=== PATIENT | female | born 1950 | race Caucasian/White ===

== ENCOUNTER 2016-11-28 14:31 | Emergency (ER) | payer OTHER ==
[~2016-11-28] VITALS: Ht 160 cm; Wt 83.1 kg
[~2016-11-28 14:31] MED LIST: ADVIN50/60 INH; ALBU1AER9 INH; ASPI81TA28 PO; ATOR-24 PO; CRG25 PO; DICY10CA12 PO; FELO10TA2 PO; FLUT0.15 NAE; GLIM4TAB2 PO; IBUP-1459 PO; IPRA1AER2 INH; LSN/2025 PO; MELO15TA10 PO; METF-384 PO; OXGN; OXYC1TAB3 PO; PHEN-1043 PO; PRLSR20 PO; TIOTCAP INH; TRAZ50TA35 PO; VENL75CA73 PO
[2016-11-28 14:43] VITALS: Ht 160 cm; Wt 83.1 kg
[2016-11-28] MEDS ORDERED: KETOROLAC TROMETHAMINE 30 MG/ML VIAL IV STA (14:47)
[2016-11-28] MEDS ORDERED: ALBUT/IPRATROP 3MG/0.5MG NEB 3 ML VIAL INH STA (14:47)
[2016-11-28] MEDS ORDERED: ONDANSETRON INJ 2 MG/ML 2 ML VIAL IV STA (14:47)
[2016-11-28 15:06] VITALS: O2SAT 96
[2016-11-28] MEDS ORDERED: METHYLPREDNISOLONE 125 MG VIAL IV STA (15:16)
[2016-11-28 15:48] LABS: BASO % 0.3 %; BASO ABS # 0.04 K/uL (0-0.2); COMPLETE YES; HEMATOCRIT 39.1 % (37-47); IG% 0.6 %; LYMPH % 13.4 %; MEAN CELL VOLUME 85.2 fL (80-100); MEAN CORPUSCULAR HEMOGLOBIN 27.2 pg (25-34); MEAN PLATELET VOLUME 9.5 fL (7.4-10.4); MONO % 2.8 %; NEUT % 81.9 %; PLATELET COUNT 467 K/uL (130-400); RED BLOOD COUNT 4.59 M/uL (4.2-5.4); WHITE BLOOD COUNT 13.43 K/uL (4.8-10.8)
[2016-11-28 16:02] LABS: BUN/CREATININE RATIO 16.3 (10-20); CALCIUM 8.6 mg/dl (8.5-10.1); CREATININE 1.1 mg/dl (0.60-1.20)
--- NOTE | 2016-11-28 16:11 | DIAGNOSTIC IMAGING REPORT ---
CHEST 2 VIEWS ROUTINE CLINICAL HISTORY: cough x 2 weeks dyspnea COMPARISON STUDY: 04/23/2016 FINDINGS: Several small calcific granulomas. Fibrotic changes right pulmonary apex possibly new. Right. Mediastinal nodule is possible. CT study of the chest suggested as follow-up. IMPRESSION: Possible nodular density medial right pulmonary apex. CT stated chest is recommended as follow-up. No additional acute process. Electronically signed by: Charlie Ayala M.D. 11/28/2016 4:09 PM Dictated Date/Time: 11/28/2016 4:07 PM
[2016-11-28] MEDS ORDERED: MoRPHine SULFATE 4 MG/ML 1 ML CARP\\VIAL IV STA (16:18)
[2016-11-28] MEDS ORDERED: OPTIRAY 320 IV PRN (16:30)
--- NOTE | 2016-11-28 16:54 | DIAGNOSTIC IMAGING REPORT ---
CT OF THE CHEST WITH IV CONTRAST CLINICAL HISTORY: cough, abnormal chest x-ray COMPARISON STUDY: Chest CT dated 07/16/2015, chest x-ray dated 11/28/2016 TECHNIQUE: Following the IV administration of 120 mL of Optiray-320, CT of the thorax was performed from the thoracic inlet to the lung bases. Images are reviewed in the axial, sagittal, and coronal planes. IV contrast was administered without complication. CT DOSE: 393.04 mGy.cm FINDINGS: Thyroid: Imaged portions of the thyroid gland are normal in appearance. Thoracic aorta: The thoracic aorta is normal in course and caliber, noting standard 3-vessel arch anatomy. No aneurysm or dissection is seen. Pulmonary vasculature: The pulmonary trunk is normal in caliber. There are no central filling defects identified to suggest pulmonary embolus. Note that this examination was not protocoled for the evaluation of pulmonary emboli. HEART: There are coronary artery calcifications present. Lungs and pleural spaces: There is a 15 mm pleural-based right apical pulmonary nodule. Was not present on the prior June 2015 study. There is evidence for pulmonary emphysema. There are lingular atelectatic changes. There are right lower lobe calcified granulomas. Mediastinum: There are enlarged mediastinal lymph nodes with a 14 mm precarinal lymph node. There are also calcified mediastinal lymph nodes including calcified subcarinal nodes. These are progressive when compared the prior study. Brandi: There is a calcified right hilar lymph node. There are mildly enlarged left hilar lymph nodes with equivocal secondary mild bronchial narrowing.. Axilla: Clear. Upper abdomen: There is hepatic steatosis. There is a bilobed left adrenal mass. This is present felt to represent an adenoma. Skeletal structures: There are no lytic or blastic osseous lesions. IMPRESSION: 1. Interval development of a 15 mm pleural-based right apical pulmonary nodule 2. Mild mediastinal lymphadenopathy which appears progressive 3. Mildly enlarged left hilar lymph nodes with equivocal secondary mild bronchial narrowing 4. Emphysema 5. Hepatic steatosis 6. Bilobed left adrenal mass, likely representing an adenoma Electronically signed by: Moses Godinez M.D. 11/28/2016 4:52 PM Dictated Date/Time: 11/28/2016 4:45 PM
[2016-11-28] MEDS ORDERED: AZIT250T PO (17:38)
[2016-11-28] MEDS ORDERED: HYDR-5688 PO (17:38)
[2016-11-28] MEDS ORDERED: PRED20TA2 PO (17:38)
--- NOTE | 2016-11-28 17:40 | EMERGENCY ROOM VISIT NOTE ---
History First contact with patient: 14:37 Chief Complaint: RESPIRATORY PROBLEMS Stated Complaint: SHORTNESS OF BREATH/RIB PAIN History of Present Illness The patient is a 66 year old female who presents to the Emergency Room via EMS with chief complaint of shortness of breath and rib pain secondary to coughing. The patient states that she has had head congestion and cough for the past few weeks but got worse over the last 2 days and now feels short of breath. The patient also states that she has soreness on the right lower ribs secondary to coughing. The patient denies any fever, ear pain or sore throat. The patient denies any body aches. The patient has been using all her inhalers as prescribed. The patient is not followed by a remnant sorter. She does require 2 L of oxygen 24 hours a day. The patient admits to tobacco use. The patient' s family doctor is Dr. Baker but she is not happy with his care and is currently seeking a new family physician. The last time she was seen by Dr. Baker was one month ago. The patient admits to some nausea but denies any vomiting. The patient denies any urinary symptoms, chest pain, abdominal pain. Review of Systems 10 system review was performed and was negative unless stated otherwise history of present illness. Past Medical/Surgical History Medical Problems: (1) AAA (abdominal aortic aneurysm) (2) Adhesions (3) ANXIETY STATE NOS (4) Chronic low back pain (5) Chronic obstructive lung disease (6) Depressive disorder (7) DIAB SHOAIB WO COMPL, TYPE II OR UNSPEC TYPE, NOT UNCNTRLD (8) Diaphragmatic hernia (9) Essential hypertension (10) GENERAL OSTEOARTHROSIS (11) Hyperlipidemia (12) IRRITABLE BOWEL SYNDROME (13) Left peroneal nerve palsy (14) Overweight (BMI 25.0-29.9) (15) PEPTIC ULCER NOS (16) Tobacco user (17) Vitamin D deficiency Surgical Problems: (1) H/O Achilles tendon repair (2) H/O: hysterectomy (3) History of appendectomy (4) History of bilateral oophorectomies (5) History of lithotripsy (6) Hx of cholecystectomy (7) lipoma removal (8) s/p breast lesion excision Family History Bone cancer FATHER Diabetes mellitus FATHER MOTHER BROTHER FH: breast cancer MOTHER FH: lung cancer MOTHER FH: myocardial infarction FATHER, Onset:50's - 60 Malignant neoplasm of larynx BROTHER Social History Smoking Status: Current Every Day Smoker Alcohol Use: none Drug Use: none Marital Status: Housing Status: lives with significant other Occupation Status: disabled Current/Historical Medications Scheduled Aspirin (Aspirin Ec), 81 MG PO DAILY Atorvastatin (Lipitor), 40 MG PO QAM Carvedilol (Carvedilol), 25 MG PO BID Felodipine (Plendil), 10 MG PO QAM Fluticasone Prop/Salmeterol (Advair Diskus 500/50 60 Dose), 1 PUFFS INH BID Fluticasone Propionate (Nasal) (Flonase Allergy Relief), 2 SPRAYS FEROZ QAM Glimepiride (Glimepiride), 4 MG PO QAM Hctz/Lisinopril (Zestoretic 20MG/25MG), 1 TAB PO QAM Ipratropium-Albuterol (Combivent Respimat), 1 PUFFS INH QID Meloxicam (Mobic), 1 TAB PO DAILY Metformin Hcl (Glucophage), 1,000 MG PO BIDM Omeprazole (Prilosec), 20 MG PO QAM Oxygen (Oxygen), 2 LITER NA CONTINOUS Phenazopyridine HCl (Phenazopyridine HCl), 200 MG PO TID Tiotropium [place] (Spiriva Handihaler), 1 CAP INH HS Venlafaxine Hcl (Venlafaxine Extended Rel), 75 MG PO DAILY Scheduled PRN Albuterol Sulfate (Proair Hfa), 2 PUFF INH Q4 PRN for Shortness of Breath Dicyclomine Hcl (Dicyclomine Hcl), 1 CAP PO TID PRN for PRN Ibuprofen (Motrin), 400 MG PO Q6H PRN for Pain Oxycodone Ir (Roxicodone Ir), 1 TAB PO Q6H PRN for Pain Trazodone Hcl (Trazodone), 50 MG PO HS PRN for Pain Allergies Coded Allergies: Diflunisal (Verified Allergy, Unknown, HEART RACES, 10/26/16) Physical Exam Vital Signs Date Time Temp Pulse Resp B/P Pulse Ox O2 Delivery O2 Flow Rate FiO2 11/28/16 16:56 11/28/16 16:45 106 18 134/74 94 Room Air 11/28/16 15:06 96 Nasal Cannula 2.0 11/28/16 15:06 96 Nasal Cannula 2.0 11/28/16 14:48 94 Nasal Cannula 11/28/16 14:48 115 11/28/16 14:43 37.1 110 22 155/94 90 Room Air Physical Exam PHYSICAL EXAM: Vital Signs were reviewed: Reviewed Nurse's notes and agree. Oxygen saturation is 90% on room air which is slightly low.. GENERAL: 66-year- old white female appears in no acute distress. MENTAL STATUS: Alert, oriented, coherent. EARS: Canals clear. TMs good light reflex, no erythema or fluid level noted. NOSE: Nasal mucosa with moderate erythema engorgement. PHARYNX: No erythema, no edema noted. No exudate noted. There is thick yellow drainage noted on the posterior pharynx. Airway is adequate. NECK: Supple, non-tender. No lymphadenopathy noted. LUNGS: Breath sounds are distant bilaterally. Fair air exchange. Faint inspiratory and expiratory wheezes noted bilaterally. Patient had deep congested cough. CARDIAC: Regular rate and rhythm without murmur. SKIN: No rashes noted. LOWER EXTREMITIES: No cyanosis or edema noted. Medical Decision & Procedures ER Provider Diagnostic Interpretation: CHEST 2 VIEWS ROUTINE CLINICAL HISTORY: cough x 2 weeks dyspnea COMPARISON STUDY: 04/23/2016 FINDINGS: Several small calcific granulomas. Fibrotic changes right pulmonary apex possibly new. Right. Mediastinal nodule is possible. CT study of the chest suggested as follow-up. IMPRESSION: Possible nodular density medial right pulmonary apex. CT stated chest is recommended as follow-up. No additional acute process. CT OF THE CHEST WITH IV CONTRAST CLINICAL HISTORY: cough, abnormal chest x-ray COMPARISON STUDY: Chest CT dated 07/16/2015, chest x-ray dated 11/28/2016 TECHNIQUE: Following the IV administration of 120 mL of Optiray-320, CT of the thorax was performed from the thoracic inlet to the lung bases. Images are reviewed in the axial, sagittal, and coronal planes. IV contrast was administered without complication. CT DOSE: 393.04 mGy.cm FINDINGS: Thyroid: Imaged portions of the thyroid gland are normal in appearance. Thoracic aorta: The thoracic aorta is normal in course and caliber, noting standard 3-vessel arch anatomy. No aneurysm or dissection is seen. Pulmonary vasculature: The pulmonary trunk is normal in caliber. There are no central filling defects identified to suggest pulmonary embolus. Note that this examination was not protocoled for the evaluation of pulmonary emboli. HEART: There are coronary artery calcifications present. Lungs and pleural spaces: There is a 15 mm pleural-based right apical pulmonary nodule. Was not present on the prior June 2015 study. There is evidence for pulmonary emphysema. There are lingular atelectatic changes. There are right lower lobe calcified granulomas. Mediastinum: There are enlarged mediastinal lymph nodes with a 14 mm precarinal lymph node. There are also calcified mediastinal lymph nodes including calcified subcarinal nodes. These are progressive when compared the prior study. Brandi: There is a calcified right hilar lymph node. There are mildly enlarged left hilar lymph nodes with equivocal secondary mild bronchial narrowing.. Axilla: Clear. Upper abdomen: There is hepatic steatosis. There is a bilobed left adrenal mass. This is present felt to represent an adenoma. Skeletal structures: There are no lytic or blastic osseous lesions. IMPRESSION: 1. Interval development of a 15 mm pleural-based right apical pulmonary nodule 2. Mild mediastinal lymphadenopathy which appears progressive 3. Mildly enlarged left hilar lymph nodes with equivocal secondary mild bronchial narrowing 4. Emphysema 5. Hepatic steatosis 6. Bilobed left adrenal mass, likely representing an adenoma Electronically signed by: Moses Godinez M.D. 11/28/2016 4:52 PM Dictated Date/Time: 11/28/2016 4:45 PM Electronically signed by: Charlie Ayala M.D. 11/28/2016 4:09 PM Laboratory Results 11/28/16 15:40 Red Blood Count 4.59, Mean Corpuscular Volume 85.2, Mean Corpuscular Hemoglobin 27.2, Mean Corpuscular Hemoglobin Concent 32.0, Mean Platelet Volume 9.5, Neutrophils (%) (Auto) 81.9, Lymphocytes (%) (Auto) 13.4, Monocytes (%) (Auto) 2.8, Eosinophils (%) (Auto) 1.0, Basophils (%) (Auto) 0.3, Neutrophils # (Auto) 10.99, Lymphocytes # (Auto) 1.80, Monocytes # (Auto) 0.38, Eosinophils # (Auto) 0.14, Basophils # (Auto) 0.04 11/28/16 15:40 Test 11/28/16 15:40 White Blood Count 13.43 K/uL (4.8-10.8) Red Blood Count 4.59 M/uL (4.2-5.4) Hemoglobin 12.5 g/dL (12.0-16.0) Hematocrit 39.1 % (37-47) Mean Corpuscular Volume 85.2 fL (80-100) Mean Corpuscular Hemoglobin 27.2 pg (25-34) Mean Corpuscular Hemoglobin Concent 32.0 g/dl (32-36) Platelet Count 467 K/uL (130-400) Mean Platelet Volume 9.5 fL (7.4-10.4) Neutrophils (%) (Auto) 81.9 % Lymphocytes (%) (Auto) 13.4 % Monocytes (%) (Auto) 2.8 % Eosinophils (%) (Auto) 1.0 % Basophils (%) (Auto) 0.3 % Neutrophils # (Auto) 10.99 K/uL (1.4-6.5) Lymphocytes # (Auto) 1.80 K/uL (1.2-3.4) Monocytes # (Auto) 0.38 K/uL (0.11-0.59) Eosinophils # (Auto) 0.14 K/uL (0-0.5) Basophils # (Auto) 0.04 K/uL (0-0.2) RDW Standard Deviation 53.3 fL (36.4-46.3) RDW Coefficient of Variation 17.2 % (11.5-14.5) Immature Granulocyte % (Auto) 0.6 % Immature Granulocyte # (Auto) 0.08 K/uL (0.00-0.02) Anion Gap 11.0 mmol/L (3-11) Est Creatinine Clear Calc Drug Dose 52.7 ml/min Estimated GFR () 61.4 Estimated GFR (Non- 53.0 BUN/Creatinine Ratio 16.3 (10-20) Calcium Level 8.6 mg/dl (8.5-10.1) Medications Administered Medications (Trade) Dose Ordered Sig/Melissa Route Start Time Stop Time Status Last Admin Dose Admin Albuterol/ Ipratropium (Duoneb) 3 ml NOW STAT INH 11/28/16 14:47 11/28/16 14:52 DC 11/28/16 15:03 3 ML Ketorolac Tromethamine (Toradol Inj) 30 mg NOW STAT IV 11/28/16 14:47 1/5/17 14:52 DC 11/28/16 15:05 30 MG Ondansetron HCl (Zofran Inj) 4 mg NOW STAT IV 11/28/16 14:47 11/28/16 14:52 DC 11/28/16 15:05 4 MG Methylprednisolone Sodium Succinate (Solu-Medrol IV) 125 mg NOW STAT IV 11/28/16 15:16 11/28/16 15:17 DC 11/28/16 15:16 125 MG Morphine Sulfate (MoRPHine SULFATE INJ) 4 mg NOW STAT IV 11/28/16 16:18 11/28/16 16:20 DC 11/28/16 16:50 4 MG ED Course The patient was evaluated. The patient was placed on 2 L of oxygen. The patient was placed on a monitor and continuous pulse ox. Chest x-ray was ordered and interpreted by the radiologist and myself as above with a new possible pulmonary nodule in the right apex. The patient was given a DuoNeb. CBC and differential renal profile was ordered. The patient was given Solu- Medrol 125 mg IV, Toradol 30 mg IV, Zofran 4 mg IV. The patient's labs are reviewed. Patient's white count was elevated at 13,000 and her glucose was 247. The patient was reevaluated. She stated that her pain was still a 6 out of 10. The patient was then given morphine 4 mg IV for pain. The patient was informed of the abnormal chest x-ray findings and a CT of the chest with IV contrast was ordered. This was interpreted by the radiologist as above with a new pulmonary nodule in the right apex and increased mediastinal lymphadenopathy. The patient was informed of the findings. I discussed the case withDr. Landers who is in agreement with treatment plan. The catalytic case operator will call pulmonology tomorrow morning to schedule an appointment for the patient within 1 week for follow-up. The patient was given Zithromax 500 mg while in the emergency room. The patient was discharged home in stable condition.. Medical Decision Differential diagnosis include neoplasm, pneumonia, bronchitis URI Impression Primary Impression: Bronchitis Additional Impression: Pulmonary nodule, right Departure Information Dispostion Home / Self-Care Condition GOOD Prescriptions Hydrocodone/Acetaminophen 5MG/325MG ([place] 5MG/325MG) Tab 1-2 TABLET PO Q6 Y for Pain, #20 TAB For Initial Treatment Prov: Cheryl Ayala PA-C 11/28/16 Prednisone (Prednisone Tab) 20 Mg Tab 2 TAB PO DAILY for 5 Days, #10 TAB Prov: Cheryl Ayala PA-C 11/28/16 Azithromycin (Zithromax) 250 Mg Tab 250 MG PO DAILY for 4 Days, #4 TAB Prov: Cheryl Ayala PA-C 11/28/16 Referrals No Doctor, Assigned (PCP) Forms HOME CARE DOCUMENTATION FORM, IMPORTANT VISIT INFORMATION, WORK / SCHOOL INSTRUCTIONS Patient Instructions A Signature Page, Bronchitis Acute, My [facility] [address] Additional Instructions Continue all inhalers as prescribed. Use your albuterol inhaler 2 puffs every 4 hours for the next 5 days then as needed. Take prednisone as prescribed. Take Zithromax as prescribed. Keep track of your blood sugars while on the prednisone. Take [place] as needed for rib pain. Do not drive while taking the [place]. Case management will be calling you tomorrow morning for a follow-up appointment with pulmonology. If your symptoms should worsen, return to ER immediately.
[2016-11-28] MEDS ORDERED: AZITHROMYCIN 250 MG TAB PO ONE (17:45)
[2016-11-28] MEDS ORDERED: NORCO 5/325MG HOME PACK PO ONE (18:00)
[2016-11-28 18:20] VITALS: BP 148/90; PULSE 108; TEMP 37.1; O2SAT 95
== END 2016-11-28 18:18 | disposition home or self-care (01) ==
LOC: EDBD 14:31 → C.EDB 14:32
DX: J20.9 Acute bronchitis, unspecified (principal); R91.1 Solitary pulmonary nodule; E11.9 Type 2 diabetes mellitus without complications; I10 Essential (primary) hypertension; E78.5 Hyperlipidemia, unspecified; J44.9 Chronic obstructive pulmonary disease, unspecified; K58.9 Irritable bowel syndrome, unspecified; F32.9 Major depressive disorder, single episode, unspecified; F41.9 Anxiety disorder, unspecified; G89.29 Other chronic pain; M19.90 Unspecified osteoarthritis, unspecified site; F17.200 Nicotine dependence, unspecified, uncomplicated; Z87.11 Personal history of peptic ulcer disease; Z90.710 Acquired absence of both cervix and uterus; Z90.49 Acquired absence of other specified parts of digestive tract; Z98.890 Other specified postprocedural states; Z79.82 Long term (current) use of aspirin; Z79.899 Other long term (current) drug therapy; Z88.8 Allergy status to other drugs, medicaments and biological substances; Z83.3 Family history of diabetes mellitus; Z82.49 Family history of ischemic heart disease and other diseases of the circulatory system; Z85.3 Personal history of malignant neoplasm of breast; Z85.830 Personal history of malignant neoplasm of bone

== ENCOUNTER 2016-12-02 15:18 | Emergency (ER) | payer OTHER ==
[~2016-12-02] VITALS: Ht 160 cm; Wt 78.6 kg
[~2016-12-02 15:18] MED LIST changes: +AZIT250T PO; +HYDR-5688 PO; +PRED20TA2 PO
[2016-12-02] MEDS ORDERED: HYDROCODONE/ACETAMOPHEN 5/325MG TAB PO STA ×2 (16:51→20:52)
[2016-12-02] MEDS ORDERED: ALBUT/IPRATROP 3MG/0.5MG NEB 3 ML VIAL INH STA (16:55)
[2016-12-02 17:37] LABS: BASO % 0.1 %; BASO ABS # 0.01 K/uL (0-0.2); COMPLETE YES; HEMATOCRIT 40.8 % (37-47); IG% 1.9 %; LYMPH % 6.6 %; LYMPH ABS # 0.93 K/uL (1.2-3.4); MEAN CELL VOLUME 83.4 fL (80-100); MEAN CORPUSCULAR HEMOGLOBIN 26.6 pg (25-34); MEAN CORPUSCULAR HGB CONC 31.9 g/dl (32-36); MEAN PLATELET VOLUME 9.8 fL (7.4-10.4); MONO % 2.6 %; NEUT % 88.8 %; PLATELET COUNT 515 K/uL (130-400); RED BLOOD COUNT 4.89 M/uL (4.2-5.4); WHITE BLOOD COUNT 14.07 K/uL (4.8-10.8)
[2016-12-02 17:55] VITALS: O2SAT 98; Ht 160 cm; Wt 78.6 kg
[2016-12-02 18:20] LABS: BUN/CREATININE RATIO 11.6 (10-20); CALCIUM 8.9 mg/dl (8.5-10.1)
[2016-12-02 18:21] LABS: CREATININE 1.3 mg/dl (0.60-1.20); POTASSIUM 4.6 mmol/L (3.5-5.1)
[2016-12-02 18:27] LABS: ALB/GLOB RATIO 0.9 (0.9-2)
[2016-12-02 18:35] LABS: BETA-HYDROXYBUTYRATE 1.26 mg/dL (0.2-2.81)
--- NOTE | 2016-12-02 18:44 | DIAGNOSTIC IMAGING REPORT ---
RIGHT RIBS UNILATERAL WITH PA CHEST CLINICAL HISTORY: right post rib pain, cough Right COMPARISON STUDY: Chest and right rib series 10/31/2015. FINDINGS: Old, healed right anterior fractures. No acute rib fractures identified. No pleural effusions. No pneumothorax. The heart is stable in size. There is a left basilar consolidation. Punctate calcified granuloma seen within the right lung base. IMPRESSION: 1. No acute rib fractures. No pneumothorax. 2. A new left basilar consolidation consistent with a pneumonia. Recommend follow-up to resolution. Electronically signed by: Wicho Gutierrez M.D. 12/02/2016 6:42 PM Dictated Date/Time: 12/02/2016 6:39 PM
[2016-12-02] MEDS ORDERED: NovoLIN-R INSULIN PER UNIT CHARGE IV STA ×2 (19:19→20:41)
[2016-12-02] MEDS ORDERED: LEVAQUIN 750MG / 150ML D5W IV STA (19:19)
[2016-12-02] MEDS ORDERED: SODIUM CHLORIDE 0.9% 500ML 500 ML IV STA (19:20)
[2016-12-02] MEDS ORDERED: HYDR-5688 PO (22:10)
[2016-12-02] MEDS ORDERED: LEVO-18 PO (22:10)
[2016-12-02] MEDS ORDERED: NORCO 5/325MG HOME PACK PO ONE (22:15)
[2016-12-02 22:24] VITALS: BP 154/87; PULSE 92; TEMP 37; O2SAT 98
--- NOTE | 2016-12-02 23:26 | EMERGENCY ROOM VISIT NOTE ---
History Report prepared by Jb: Shweta Siegel Under the Supervision of: Dr. Eugene Landers M.D. First contact with patient: 16:34 Chief Complaint: SHORTNESS OF BREATH Stated Complaint: SOB Nursing Triage Summary: Cough for a couple weeks, productive of white bull sputum. SOB. Here , gave her ATB. Pt states symptoms are getting better but is here today to get something for pain. History of Present Illness The patient is a 66 year old female who presents to the Emergency Room with complaints of worsening shortness of breath. She has experienced a productive cough with "whitish bull sputum" for the past few weeks and has been increasingly short of breath recently. She was seen here in the ED 4 days ago because she thought she might have a pneumonia and she was placed on antibiotics and a steroid. She finished the antibiotic today and has two more steroid pills left. The patient reports her symptoms have been improving, but she is now experiencing increasing pain in her ribs from the cough. She notes she is scheduled to see Dr. Jenkins later this week, and states she follows with Pulmonology for a history of lung nodules and emphysema. The patient denies any LOC, headache, fevers, chills, diaphoresis, visual changes, neck pain , chest pain, nausea, vomiting, abdominal pain, back pain, melena, hematochezia , urinary symptoms, numbness, weakness, lymphadenopathy, rash, or other complaints. 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 A total of ten systems were reviewed and were otherwise negative. Past Medical & Surgical Medical Problems: (1) AAA (abdominal aortic aneurysm) (2) Adhesions (3) ANXIETY STATE NOS (4) Chronic low back pain (5) Chronic obstructive lung disease (6) Depressive disorder (7) DIAB SHOAIB WO COMPL, TYPE II OR UNSPEC TYPE, NOT UNCNTRLD (8) Diaphragmatic hernia (9) Essential hypertension (10) GENERAL OSTEOARTHROSIS (11) Hyperlipidemia (12) IRRITABLE BOWEL SYNDROME (13) Left peroneal nerve palsy (14) Overweight (BMI 25.0-29.9) (15) PEPTIC ULCER NOS (16) Tobacco user (17) Vitamin D deficiency Surgical Problems: (1) H/O Achilles tendon repair (2) H/O: hysterectomy (3) History of appendectomy (4) History of bilateral oophorectomies (5) History of lithotripsy (6) Hx of cholecystectomy (7) lipoma removal (8) s/p breast lesion excision Family History Bone cancer FATHER Diabetes mellitus FATHER MOTHER BROTHER FH: breast cancer MOTHER FH: lung cancer MOTHER FH: myocardial infarction FATHER, Onset:50's - 60 Malignant neoplasm of larynx BROTHER Social History Smoking Status: Former Smoker Alcohol Use: none Drug Use: none Marital Status: Housing Status: lives with significant other Occupation Status: disabled Current/Historical Medications Scheduled Aspirin (Aspirin Ec), 81 MG PO DAILY Atorvastatin (Lipitor), 40 MG PO QAM Azithromycin (Zithromax), 250 MG PO DAILY Carvedilol (Carvedilol), 25 MG PO BID Felodipine (Plendil), 10 MG PO QAM Fluticasone Prop/Salmeterol (Advair Diskus 500/50 60 Dose), 1 PUFFS INH BID Fluticasone Propionate (Nasal) (Flonase Allergy Relief), 2 SPRAYS FEROZ QAM Glimepiride (Glimepiride), 4 MG PO QAM Hctz/Lisinopril (Zestoretic 20MG/25MG), 1 TAB PO QAM Ipratropium-Albuterol (Combivent Respimat), 1 PUFFS INH QID Levofloxacin (Levaquin), 1 TAB PO DAILY Meloxicam (Mobic), 1 TAB PO DAILY Metformin Hcl (Glucophage), 1,000 MG PO BIDM Omeprazole (Prilosec), 20 MG PO QAM Oxygen (Oxygen), 2 LITER NA CONTINOUS Prednisone (Prednisone Tab), 2 TAB PO DAILY Tiotropium [place] (Spiriva Handihaler), 1 CAP INH HS Venlafaxine Hcl (Venlafaxine Extended Rel), 75 MG PO DAILY Scheduled PRN Albuterol Sulfate (Proair Hfa), 2 PUFF INH Q4 PRN for Shortness of Breath Dicyclomine Hcl (Dicyclomine Hcl), 1 CAP PO TID PRN for PRN Hydrocodone/Acetaminophen 5MG/325MG ([place] 5MG/325MG), 1-2 TABLET PO Q6 PRN for Pain Hydrocodone/Acetaminophen 5MG/325MG ([place] 5MG/325MG), 1-2 TABS PO Q6H PRN for Pain Ibuprofen (Motrin), 400 MG PO Q6H PRN for Pain Trazodone Hcl (Trazodone), 50 MG PO HS PRN for Pain Allergies Coded Allergies: Diflunisal (Verified Allergy, Unknown, HEART RACES, 10/26/16) Physical Exam Vital Signs Date Time Temp Pulse Resp B/P Pulse Ox O2 Delivery O2 Flow Rate FiO2 12/02/16 22:24 37.0 92 20 154/87 98 12/02/16 22:23 92 20 154/87 98 Nasal Cannula 2.0 98 12/02/16 21:45 92 20 155/88 98 Nasal Cannula 2.0 98 12/02/16 19:40 95 20 160/87 98 Nasal Cannula 2.0 98 12/02/16 18:38 96 20 155/88 98 Nasal Cannula 2.0 12/02/16 17:57 95 20 160/87 98 Nasal Cannula 2.0 98 12/02/16 17:55 98 Nasal Cannula 2.0 98 12/02/16 17:55 98 Nasal Cannula 2.0 98 12/02/16 15:40 Nasal Cannula 2.0 94 12/02/16 15:37 37.0 118 20 170/88 94 Nasal Cannula 2.0 Physical Exam GENERAL: Awake, alert, well-appearing, in no distress HENT: Normocephalic, atraumatic. Oropharynx unremarkable. EYES: Normal conjunctiva. Sclera non-icteric. NECK: Supple. No nuchal rigidity. FROM. No JVD. RESPIRATORY: Right posterior inferior rib tenderness with expiratory wheezes. Moderate cough present which causes right sided rib pain on the lateral side. CARDIAC: Regular rate, normal rhythm. Extremities warm and well perfused. Pulses equal. ABDOMEN: Soft, non-distended. No tenderness to palpation. No rebound or guarding. No masses. RECTAL: Deferred. MUSCULOSKELETAL: Chest examination reveals no tenderness. The back is symmetrical on inspection without obvious abnormality. There is no CVA tenderness to palpation. No joint edema. LOWER EXTREMITIES: Calves are equal size bilaterally and non-tender. No edema. No discoloration. NEURO: Normal sensorium. No sensory or motor deficits noted. SKIN: No rash or jaundice noted. Medical Decision & Procedures ER Provider Diagnostic Interpretation: This X-Ray was reviewed and interpreted by myself and the radiologist. RIGHT RIBS UNILATERAL WITH PA CHEST CLINICAL HISTORY: right post rib pain, cough Right COMPARISON STUDY: Chest and right rib series 10/31/2015. FINDINGS: Old, healed right anterior fractures. No acute rib fractures identified. No pleural effusions. No pneumothorax. The heart is stable in size. There is a left basilar consolidation. Punctate calcified granuloma seen within the right lung base. IMPRESSION: 1. No acute rib fractures. No pneumothorax. 2. A new left basilar consolidation consistent with a pneumonia. Recommend follow-up to resolution. Electronically signed by: Wicho Gutierrez M.D. 12/02/2016 6:42 PM Dictated Date/Time: 12/02/2016 6:39 P Laboratory Results 12/02/16 17:24 Red Blood Count 4.89, Mean Corpuscular Volume 83.4, Mean Corpuscular Hemoglobin 26.6, Mean Corpuscular Hemoglobin Concent 31.9, Mean Platelet Volume 9.8, Neutrophils (%) (Auto) 88.8, Lymphocytes (%) (Auto) 6.6, Monocytes (%) (Auto) 2.6, Eosinophils (%) (Auto) 0.0, Basophils (%) (Auto) 0.1, Neutrophils # (Auto) 12.49, Lymphocytes # (Auto) 0.93, Monocytes # (Auto) 0.37, Eosinophils # (Auto) 0.00, Basophils # (Auto) 0.01 12/02/16 17:24 Test 12/02/16 17:24 12/02/16 21:45 White Blood Count 14.07 K/uL (4.8-10.8) Red Blood Count 4.89 M/uL (4.2-5.4) Hemoglobin 13.0 g/dL (12.0-16.0) Hematocrit 40.8 % (37-47) Mean Corpuscular Volume 83.4 fL (80-100) Mean Corpuscular Hemoglobin 26.6 pg (25-34) Mean Corpuscular Hemoglobin Concent 31.9 g/dl (32-36) Platelet Count 515 K/uL (130-400) Mean Platelet Volume 9.8 fL (7.4-10.4) Neutrophils (%) (Auto) 88.8 % Lymphocytes (%) (Auto) 6.6 % Monocytes (%) (Auto) 2.6 % Eosinophils (%) (Auto) 0.0 % Basophils (%) (Auto) 0.1 % Neutrophils # (Auto) 12.49 K/uL (1.4-6.5) Lymphocytes # (Auto) 0.93 K/uL (1.2-3.4) Monocytes # (Auto) 0.37 K/uL (0.11-0.59) Eosinophils # (Auto) 0.00 K/uL (0-0.5) Basophils # (Auto) 0.01 K/uL (0-0.2) RDW Standard Deviation 52.7 fL (36.4-46.3) RDW Coefficient of Variation 17.3 % (11.5-14.5) Immature Granulocyte % (Auto) 1.9 % Immature Granulocyte # (Auto) 0.27 K/uL (0.00-0.02) Anion Gap 10.0 mmol/L (3-11) Est Creatinine Clear Calc Drug Dose 43.4 ml/min Estimated GFR () 50.2 Estimated GFR (Non- 43.3 BUN/Creatinine Ratio 11.6 (10-20) Calcium Level 8.9 mg/dl (8.5-10.1) Total Bilirubin 0.2 mg/dl (0.2-1) Aspartate Amino Transf (AST/SGOT) 4 U/L (15-37) Alanine Aminotransferase (ALT/SGPT) 27 U/L (12-78) Alkaline Phosphatase 243 U/L (45-117) Troponin I 0.025 ng/ml (0-0.045) Total Protein 7.4 gm/dl (6.4-8.2) Albumin 3.6 gm/dl (3.4-5.0) Globulin 3.8 gm/dl (2.5-4.0) Albumin/Globulin Ratio 0.9 (0.9-2) Beta-Hydroxybutyric Acid 1.26 mg/dL (0.2-2.81) Bedside Glucose 308 mg/dl (70-90) Laboratory results reviewed by me Medications Administered Medications (Trade) Dose Ordered Sig/Melissa Route Start Time Stop Time Status Last Admin Dose Admin Acetaminophen/ Hydrocodone Bitart ([place] 5/325 Tab) 2 tab NOW STAT PO 12/02/16 16:51 12/02/16 16:54 DC 12/02/16 17:52 2 TAB Albuterol/ Ipratropium (Duoneb) 3 ml NOW STAT INH 12/02/16 16:55 12/02/16 16:57 DC 12/02/16 17:52 3 ML Levofloxacin (Levaquin / D5W) 750 mg NOW STAT IV 12/02/16 19:19 12/02/16 19:21 DC 12/02/16 19:33 750 MG Insulin Human Regular 10 units 10 units NOW STAT IV 12/02/16 19:19 12/02/16 19:21 DC 12/02/16 19:32 10 UNITS Sodium Chloride (Nss 500ml) 500 ml @ 999 mls/hr Q31M STAT IV 12/02/16 19:20 12/02/16 19:50 DC 12/02/16 19:33 999 MLS/HR Insulin Human Regular (novoLIN-R U-100 PER UNIT) 6 units NOW STAT IV 12/02/16 20:41 12/02/16 20:42 DC 12/02/16 20:48 6 UNITS Acetaminophen/ Hydrocodone Bitart ([place] 5/325 Tab) 1 tab NOW STAT PO 12/02/16 20:52 12/02/16 20:54 DC 12/02/16 21:27 1 TAB Acetaminophen/ Hydrocodone Bitart ([place] 5/325mg Home Pack) 1 homepack UD ONCE PO 12/02/16 22:15 12/02/16 22:16 DC 12/02/16 22:10 1 HOMEPACK ECG Indication: SOB/dyspnea Rate (beats per minute): 105 Rhythm: sinus tachycardia Findings: PVC, Q waves (Inferior), no acute ischemic change Change: no significant change (No change when compared to EKG from June 22, 2016) ED Course 164: The patient was evaluated in room C7. A complete history and physical exam was performed. 1650: [place] 5/325 mg 2 tab PO. 1654: DuoNeb 3 ml INH. 1915: I reevaluated the patient. She is feeling a little better. I discussed the pneumonia seen on her x-ray and she has declined my offers to remain in the hospital. 1918: Novolin R U-100 PER UNIT 10 units IV, Levaquin 750 mg IV. 1919: NSS 500 ml @ 999 mls/hr IV. 2040: Novolin-R U-100 per unit 6 units IV. 2044: I reevaluated the patient. She is doing well but is requesting something else for pain. 2051: [place] 5/325 mg 1 tab PO. 2214: [place] 5/325 mg 1 home pack PO. 2224: I reevaluated the patient. She is feeling much better. I discussed her results and discharge instructions and she verbalized complete understanding and agreement. Medical Decision Triage Nursing notes reviewed. The patient's presentation and history were concerning for respiratory issues and rib pain with coughing. Etiologies such as pneumonia, COPD, reactive airway disease, CHF, cardiac ischemia, pulmonary embolism, pneumothorax, musculoskeletal, infections, gastrointestinal, as well as others were entertained. The patient was evaluated. She had right posterior rib tenderness. She had a significant cough present. The patient was seen earlier and was treated with Zithromax. Her chest CT did not reveal any significant abnormal findings. A rib series was performed. The patient was given a dose of [place] for symptom control. She was found to be significantly hyperglycemic and had a leukocytosis on CBC. Rib films did not reveal any fracture however there was a left sided infiltrate now present. This was concerning. The patient likely has hyperglycemia from dietary indiscretion that she admits to as well as her steroid use. She was hydrated and given IV insulin. The patient refused admission to the hospital and I discussed trying to maximize her therapy as an outpatient since she did not want to be admitted. The patient agreed for prolonged treatment in the Emergency Room. She was given a second dose of IV insulin for a total of 16 units. This brought her sugar down to the 300 range. She was given IV Levaquin. She does not have a prolonged QT. She is no longer taking the macrolide. This would be the best option to try and treat her symptoms and keep her out of the hospital. I believe that she has pleurisy or a costochondritis given the rib pain on the right side with coughing. She was previously given [place] for this and did well. She is currently out. I will give her a small amount as a home pack and medicine by prescription. The patient had prescriptions for 12 [place] and 5 days of Levaquin sent to her pharmacy. She will need close outpatient follow-up and the patient agrees. If she worsens in anyway she does promise to come back to the Emergency Room for reevaluation. I gave my usual and customary discussion regarding this issue. By the evaluation outlined above other emergent etiologies such as those listed in the differential, as well as others, were deemed relatively unlikely. The patient and family were informed about the findings as listed above. All questions were answered and they were pleased with the treatment. Return instructions were outlined and the patient was discharged in stable condition. The patient was referred to her PCP for follow-up ALEJANDRA for a recheck of the current condition. The chart was completed utilizing [employer] Speech voice recognition software. Grammatical errors, random word insertions, pronoun errors, and incomplete sentences are an occasional consequence of this system due to software limitations, ambient noise, and hardware issues. Any formal questions or concerns about the content, text, or information contained within the body of this dictation should be directly addressed to the physician for clarification. Impression Primary Impression: Pneumonia Additional Impressions: Hyperglycemia, Rib pain on right side Scribe Attestation The scribe's documentation has been prepared under my direction and personally reviewed by me in its entirety. I confirm that the note above accurately reflects all work, treatment, procedures, and medical decision making performed by me. Departure Information Dispostion Home / Self-Care Prescriptions Levofloxacin (LEVAQUIN) 750 Mg Tab 1 TAB PO DAILY for 5 Days, #5 TAB Prov: Eugene Landers MD 12/02/16 Hydrocodone/Acetaminophen 5MG/325MG ([place] 5MG/325MG) Tab 1-2 TABS PO Q6H Y for Pain, #12 TAB Prov: Eugene Landers MD 12/02/16 Referrals No Doctor, Assigned (PCP) Patient Instructions A Signature Page, My [facility]
== END 2016-12-02 22:26 | disposition home or self-care (01) ==
LOC: C.EDB 15:19 → C.EDC 22:26
DX: J18.9 Pneumonia, unspecified organism (principal); E11.65 Type 2 diabetes mellitus with hyperglycemia; R07.81 Pleurodynia; I71.4 Abdominal aortic aneurysm, without rupture; F41.9 Anxiety disorder, unspecified; M54.5 Low back pain; G89.29 Other chronic pain; J44.9 Chronic obstructive pulmonary disease, unspecified; I10 Essential (primary) hypertension; M19.90 Unspecified osteoarthritis, unspecified site; K58.9 Irritable bowel syndrome, unspecified; K27.9 Peptic ulcer, site unspecified, unspecified as acute or chronic, without hemorrhage or perforation; E66.3 Overweight; E55.9 Vitamin D deficiency, unspecified; E78.5 Hyperlipidemia, unspecified; Z87.891 Personal history of nicotine dependence; Z80.9 Family history of malignant neoplasm, unspecified; Z82.49 Family history of ischemic heart disease and other diseases of the circulatory system; Z79.82 Long term (current) use of aspirin; Z79.899 Other long term (current) drug therapy; Z99.81 Dependence on supplemental oxygen

== ENCOUNTER 2016-12-10 17:59 | Inpatient (IN) | payer OTHER ==
[~2016-12-10] VITALS: Ht 160 cm; Wt 84.0 kg
[~2016-12-10 17:59] MED LIST changes: -AZIT250T PO; -OXYC1TAB3 PO; -PHEN-1043 PO; -PRED20TA2 PO
[2016-12-10] MEDS ORDERED: ALBUT/IPRATROP 3MG/0.5MG NEB 3 ML VIAL INH STA (18:13)
[2016-12-10] MEDS ORDERED: SODIUM CHLORIDE 0.9% 500ML 500 ML IV STA (18:13)
[2016-12-10] MEDS ORDERED: FENTANYL CITRATE INJ 50 MCG/1 ML 2 ML VIAL IV STA (18:13)
--- NOTE | 2016-12-10 18:18 | EMERGENCY ROOM VISIT NOTE ---
History Report prepared by Jb: Javed Reynolds Under the Supervision of: Dr. Alverto Mendoza M.D. First contact with patient: 18:03 Chief Complaint: SHORTNESS OF BREATH Stated Complaint: SOB History of Present Illness The patient is a 66 year old female who presents to the Emergency Room with complaints of persistent shortness of breath beginning earlier today. She has had bronchitis for 2 weeks and was put on Prednisone and Levaquin which she notes has provided only some relief of her symptoms. She was seen here last week with right-sided rib pain and a cough and notes those symptoms are still present. She states she is needing medications for her symptoms. She received Duoneb by EMS en route to the ER. Source of History: patient Onset: earlier today Position: other (lungs) Quality: other (shortness of breath) Timing: other (persistent) Modifying Factors (Relieving): other (Predisone; Levaquin) Associated Symptoms: + cough Note: The patient notes having right-sided rib pain. Review of Systems See HPI for pertinent positives & negatives. A total of 10 systems reviewed and were otherwise negative. Past Medical & Surgical Medical Problems: (1) AAA (abdominal aortic aneurysm) (2) Adhesions (3) ANXIETY STATE NOS (4) Bronchitis (5) Chronic low back pain (6) Chronic obstructive lung disease (7) COPD exacerbation (8) Depressive disorder (9) DIAB SHOAIB WO COMPL, TYPE II OR UNSPEC TYPE, NOT UNCNTRLD (10) Diaphragmatic hernia (11) Essential hypertension (12) GENERAL OSTEOARTHROSIS (13) Hyperlipidemia (14) IRRITABLE BOWEL SYNDROME (15) Left peroneal nerve palsy (16) Overweight (BMI 25.0-29.9) (17) PEPTIC ULCER NOS (18) Tobacco user (19) Vitamin D deficiency Surgical Problems: (1) H/O Achilles tendon repair (2) H/O: hysterectomy (3) History of appendectomy (4) History of bilateral oophorectomies (5) History of lithotripsy (6) Hx of cholecystectomy (7) lipoma removal (8) s/p breast lesion excision Family History Bone cancer FATHER Diabetes mellitus FATHER MOTHER BROTHER FH: breast cancer MOTHER FH: lung cancer MOTHER FH: myocardial infarction FATHER, Onset:50's - 60 Malignant neoplasm of larynx BROTHER Social History Smoking Status: Former Smoker Alcohol Use: none Drug Use: none Marital Status: Housing Status: lives with significant other Occupation Status: disabled Current/Historical Medications Scheduled Aspirin (Aspirin Ec), 81 MG PO DAILY Atorvastatin (Lipitor), 40 MG PO QAM Carvedilol (Carvedilol), 25 MG PO BID Felodipine (Plendil), 10 MG PO QAM Fluticasone Prop/Salmeterol (Advair Diskus 500/50 60 Dose), 1 PUFFS INH BID Fluticasone Propionate (Nasal) (Flonase Allergy Relief), 2 SPRAYS FEROZ QAM Glimepiride (Glimepiride), 4 MG PO QAM Hctz/Lisinopril (Zestoretic 20MG/25MG), 1 TAB PO QAM Ipratropium-Albuterol (Combivent Respimat), 1 PUFFS INH QID Meloxicam (Mobic), 15 MG PO DAILY Metformin Hcl (Glucophage), 1,000 MG PO BIDM Omeprazole (Prilosec), 20 MG PO QAM Oxygen (Oxygen), 2 LITER NA CONTINOUS Tiotropium [place] (Spiriva Handihaler), 1 CAP INH HS Venlafaxine Hcl (Venlafaxine Extended Rel), 75 MG PO DAILY Scheduled PRN Albuterol Sulfate (Proair Hfa), 2 PUFF INH Q4 PRN for Shortness of Breath Dicyclomine Hcl (Dicyclomine Hcl), 1 CAP PO TID PRN for PRN Hydrocodone/Acetaminophen 5MG/325MG ([place] 5MG/325MG), 1-2 TABS PO Q6H PRN for Pain Ibuprofen (Motrin), 400 MG PO Q6H PRN for Pain Trazodone Hcl (Trazodone), 50 MG PO HS PRN for Pain Allergies Coded Allergies: Diflunisal (Verified Allergy, Unknown, HEART RACES, 10/26/16) Physical Exam Vital Signs Date Time Temp Pulse Resp B/P Pulse Ox O2 Delivery O2 Flow Rate FiO2 12/10/16 20:05 99 24 135/64 99 Nasal Cannula 2.0 12/10/16 18:18 110 12/10/16 18:05 95 Nasal Cannula 2.0 12/10/16 18:04 36.5 111 28 163/88 97 Nasal Cannula Physical Exam GENERAL: Patient is chronically unwell appearing and in mild distress. Smells of tobacco smoke. HEENT: No acute trauma, normocephalic atraumatic, mucous membranes moist, no nasal congestion, no scleral icterus. NECK: No stridor, no adenopathy, no meningismus, trachea is midline. LUNGS: No dyspnea. Clear to auscultation and equal bilaterally. Tight lung sounds; diffuse wheezing. No rhonchi. HEART: Tachycardic. No murmurs, rubs, gallops appreciated. CHEST: Tenderness to palpation of right lower ribs. ABDOMEN: Soft, nontender, bowel sounds positive, no masses appreciated, no peritonitis. BACK: No midline tenderness, no CVA tenderness EXTREMITIES: Normal motion all extremities, no cyanosis, no edema. NEUROLOGIC: Alert and oriented, no acute motor or sensory deficits, no focal weakness, cranial nerves grossly intact. SKIN: No rash, no jaundice, no diaphoresis. Medical Decision & Procedures ER Provider Diagnostic Interpretation: X ray results are stated below per my interpretation and the radiologist's interpretation. SINGLE VIEW CHEST FINDINGS: An AP, portable, upright chest radiograph is compared to chest x-ray and chest CT dated 11/28/2016. The heart is enlarged and there is atherosclerotic calcification of the thoracic aorta. The pulmonary vasculature is noncongested. Emphysema and chronic interstitial thickening is similar to previous. There is mild chronic elevation of the left hemidiaphragm and bibasilar atelectasis. No airspace consolidation or large pleural effusion is identified tiny calcified granulomas are again noted. Pulmonary nodules seen on the 11/28/2016 chest x-ray are not well visualized by CT. No pneumothorax is seen. The skeletal structures are osteopenic. The bony thorax is grossly intact. IMPRESSION: Cardiomegaly and emphysema with no acute cardiopulmonary abnormality. Electronically signed by: Koby Wallace M.D. 12/10/2016 6:41 PM Dictated Date/Time: 12/10/2016 6:39 PM Laboratory Results 12/10/16 18:30 Red Blood Count 4.39, Mean Corpuscular Volume 83.8, Mean Corpuscular Hemoglobin 26.4, Mean Corpuscular Hemoglobin Concent 31.5, Mean Platelet Volume 9.5, Neutrophils (%) (Auto) 68.6, Lymphocytes (%) (Auto) 23.0, Monocytes (%) (Auto) 5.6, Eosinophils (%) (Auto) 1.9, Basophils (%) (Auto) 0.3, Neutrophils # (Auto) 6.92, Lymphocytes # (Auto) 2.32, Monocytes # (Auto) 0.56, Eosinophils # (Auto) 0.19, Basophils # (Auto) 0.03 12/10/16 18:30 Test 12/10/16 18:30 White Blood Count 10.08 K/uL (4.8-10.8) Red Blood Count 4.39 M/uL (4.2-5.4) Hemoglobin 11.6 g/dL (12.0-16.0) Hematocrit 36.8 % (37-47) Mean Corpuscular Volume 83.8 fL (80-100) Mean Corpuscular Hemoglobin 26.4 pg (25-34) Mean Corpuscular Hemoglobin Concent 31.5 g/dl (32-36) Platelet Count 408 K/uL (130-400) Mean Platelet Volume 9.5 fL (7.4-10.4) Neutrophils (%) (Auto) 68.6 % Lymphocytes (%) (Auto) 23.0 % Monocytes (%) (Auto) 5.6 % Eosinophils (%) (Auto) 1.9 % Basophils (%) (Auto) 0.3 % Neutrophils # (Auto) 6.92 K/uL (1.4-6.5) Lymphocytes # (Auto) 2.32 K/uL (1.2-3.4) Monocytes # (Auto) 0.56 K/uL (0.11-0.59) Eosinophils # (Auto) 0.19 K/uL (0-0.5) Basophils # (Auto) 0.03 K/uL (0-0.2) RDW Standard Deviation 54.7 fL (36.4-46.3) RDW Coefficient of Variation 17.7 % (11.5-14.5) Immature Granulocyte % (Auto) 0.6 % Immature Granulocyte # (Auto) 0.06 K/uL (0.00-0.02) Anion Gap 11.0 mmol/L (3-11) Est Creatinine Clear Calc Drug Dose 58.3 ml/min Estimated GFR () 69.0 Estimated GFR (Non- 59.5 BUN/Creatinine Ratio 18.3 (10-20) Bedside Lactic Acid Venous 2.98 mmol/L (0.90-1.70) Calcium Level 8.5 mg/dl (8.5-10.1) Total Creatine Kinase 35 U/L (26-192) Creatine Kinase MB 1.0 ng/ml (0.5-3.6) Creatine Kinase MB Ratio 2.9 (0-3.0) Troponin I < 0.015 ng/ml (0-0.045) Laboratory results as reviewed by me. Medications Administered Medications (Trade) Dose Ordered Sig/Melissa Route Start Time Stop Time Status Last Admin Dose Admin Fentanyl Citrate 75 mcg 75 mcg NOW STAT IV 12/10/16 18:13 12/10/16 18:15 DC 12/10/16 18:38 75 MCG Sodium Chloride (Nss 500ml) 500 ml @ 999 mls/hr Q31M STAT IV 12/10/16 18:13 12/10/16 18:43 DC 12/10/16 18:39 999 MLS/HR Albuterol/ Ipratropium (Duoneb) 3 ml NOW STAT INH 12/10/16 18:13 12/10/16 18:15 DC 12/10/16 18:39 3 ML Methylprednisolone Sodium Succinate 80 mg 80 mg NOW STAT IV 12/10/16 19:40 12/10/16 19:42 DC 12/10/16 20:46 80 MG Doxycycline Hyclate/Dextrose (Vibramycin IV/ D5 100ml) 110 ml @ 50 mls/hr NOW STAT IV 12/10/16 19:40 12/10/16 21:51 DC 12/10/16 20:46 50 MLS/HR Acetaminophen/ Hydrocodone Bitart ([place] 5/325 Tab) 1 tab Q6H PRN PO 12/10/16 20:15 12/24/16 20:14 12/11/16 00:19 1 TAB ECG Indication: SOB/dyspnea Rate (beats per minute): 111 Rhythm: sinus tachycardia Findings: no acute ischemic change, no ectopy ED Course 1809: The patient was evaluated in room B11B. A complete history and physical exam was performed. 1812: Ordered Duoneb 3 ml INH, NSS 500 ml @ 999 mls/hr IV, and Fentanyl Inj 75 mcg IV. 1937: I reassessed the patient. Her breathing is improved and her pain is much better. 1939: Ordered Doxycycline Hyclate 100 mg/Dextrose 110 ml @ 50 mls/hr IV, and Solu-Medrol IV 80 mg IV. 2004: Discussed the patient's case with Dr. Irvin Alvarado. The patient will be evaluated for further treatment and disposition. 2009: Upon reevaluation, the patient is hemodynamically stable. Discussed results and treatment plan with the patient. She verbalized understanding and agreement with the treatment plan. The patient will be evaluated for further management. Medical Decision Differential: Infectious, Reactive Airway Disease, Pneumonia, Pneumothorax, COPD , CHF, ACS, Pulmonary Embolism, MSK, GI, Dissection, amongst other etiologies entertained. 66 yr old female arrives with complaint of shortness of breath and right rib pain. Initially quite uncomfortable and I ordered fentanyl for pain along with neb treatment as lungs quite poor. On review of chart however, it is clear this pain has already been evaluated multiple times and that she has evidence of large number of narcotic prescriptions over last few weeks. She denies this , though I pointed out that 2 of them are from providers here in last 2 weeks. She I believe has findings of drug seeking behavior, though also does have poor lungs. While it is unclear if she is just not taking medications as prescribed , she claims she had taken the abx/steroids prescribed her. In this case she has failed outpatient treatment of her bronchitis (no evidence pneumonia this time on CXR). She furthermore has a lactic acidosis which may be sign of early sepsis. Will bring in for rehydration and further work-up and management. [place] Drug Monitoring [place] Search Results: patient reviewed within database Drug Monitoring Findings: Many narcotic prescriptions from multiple different prescribers over the last few months, including 7 in just the last month. Consults Time Called: 2003 Consulting Physician: Rashida Harmon Returned Call: 2004 Discussed the patient's case with Dr. Irvin Alvarado. The patient will be evaluated for further treatment and disposition. Impression Primary Impression: Acute bronchitis Additional Impressions: Respiratory distress Lactic acidosis Scribe Attestation The scribe's documentation has been prepared under my direction and personally reviewed by me in its entirety. I confirm that the note above accurately reflects all work, treatment, procedures, and medical decision making performed by me. Departure Information Referrals No Doctor, Assigned (PCP) Patient Instructions My [facility] Health Problem Qualifiers Primary Impression: Acute bronchitis Bronchitis organism: unspecified organism Qualified Codes: J20.9 - Acute bronchitis, unspecified
[2016-12-10] MEDS ORDERED: HYDR-5688 PO (18:35)
[2016-12-10] MEDS ORDERED: MELO15TA10 PO (18:36)
[2016-12-10] MEDS ORDERED: SPRIN/30 INH (18:38)
[2016-12-10 18:42] LABS: BASO % 0.3 %; BASO ABS # 0.03 K/uL (0-0.2); COMPLETE YES; EOS % 1.9 %; HEMATOCRIT 36.8 % (37-47); IG% 0.6 %; LYMPH ABS # 2.32 K/uL (1.2-3.4); MEAN CELL VOLUME 83.8 fL (80-100); MEAN CORPUSCULAR HEMOGLOBIN 26.4 pg (25-34); MEAN CORPUSCULAR HGB CONC 31.5 g/dl (32-36); MEAN PLATELET VOLUME 9.5 fL (7.4-10.4); MONO % 5.6 %; NEUT % 68.6 %; PLATELET COUNT 408 K/uL (130-400); RED BLOOD COUNT 4.39 M/uL (4.2-5.4); WHITE BLOOD COUNT 10.08 K/uL (4.8-10.8)
--- NOTE | 2016-12-10 18:43 | DIAGNOSTIC IMAGING REPORT ---
SINGLE VIEW CHEST CLINICAL HISTORY: Atypical chest pain. Dyspnea. FINDINGS: An AP, portable, upright chest radiograph is compared to chest x-ray and chest CT dated 11/28/2016. The heart is enlarged and there is atherosclerotic calcification of the thoracic aorta. The pulmonary vasculature is noncongested. Emphysema and chronic interstitial thickening is similar to previous. There is mild chronic elevation of the left hemidiaphragm and bibasilar atelectasis. No airspace consolidation or large pleural effusion is identified tiny calcified granulomas are again noted. Pulmonary nodules seen on the 11/28/2016 chest x-ray are not well visualized by CT. No pneumothorax is seen. The skeletal structures are osteopenic. The bony thorax is grossly intact. IMPRESSION: Cardiomegaly and emphysema with no acute cardiopulmonary abnormality. Electronically signed by: Koby Wallace M.D. 12/10/2016 6:41 PM Dictated Date/Time: 12/10/2016 6:39 PM
[2016-12-10 19:03] LABS: BLOOD UREA NITROGEN 18 mg/dl (7-18); BUN/CREATININE RATIO 18.3 (10-20); CALCIUM 8.5 mg/dl (8.5-10.1); CARBON DIOXIDE 24 mmol/L (21-32); CHLORIDE 106 mmol/L (98-107); GLUCOSE 245 mg/dl (70-99); POTASSIUM 4.2 mmol/L (3.5-5.1); SODIUM 141 mmol/L (136-145)
[2016-12-10 19:07] LABS: CKMB/CK RATIO 2.9 (0-3.0)
[2016-12-10] MEDS ORDERED: METHYLPREDNISOLONE 125 MG VIAL IV STA (19:40)
[2016-12-10] MEDS ORDERED: DOXYCYCLINE IV 100 MG in DEXTROSE 5% 100ML 100 ML IV STA (19:40)
[2016-12-10] MEDS ORDERED: ACETAMINOPHEN 325 MG TAB PO PRN (20:15)
[2016-12-10] MEDS ORDERED: DICYCLOMINE HCL 10 MG CAP PO PRN (20:15)
[2016-12-10] MEDS ORDERED: ONDANSETRON INJ 2 MG/ML 2 ML VIAL IV PRN (20:15)
[2016-12-10] MEDS ORDERED: MAGNESIUM HYDROXIDE SUSP 30 ML UDC PO PRN (20:15)
[2016-12-10] MEDS ORDERED: TRAZODONE HCL 50 MG TAB PO PRN (20:15)
[2016-12-10] MEDS ORDERED: ALUMINUM/MAGNESIUM/SIMETH (MAALOX MAX) 30 ML UDC PO PRN (20:15)
[2016-12-10] MEDS ORDERED: ALBUTEROL 0.083% NEBU SOLN 3 ML VIAL INH PRN (20:15)
[2016-12-10] MEDS ORDERED: IBUPROFEN 200 MG TAB PO PRN (20:15)
--- NOTE | 2016-12-10 20:40 | History and Physical ---
History & Physical Date & Time of Service: Dec 10, 2016 at 20:32 Chief Complaint: SOB Primary Care Physician: Karo Champagne History of Present Illness Source: patient 66 y/o F w/Hx advanced COPD who continues to smoke a pack of cigarettes daily - presents with progressive SOB x 2 days. Pt was recently treated for a COPD exacerbation receiving outpt Levaquin and prednisone but has worsened regardless. Describes a worsening productive cough, SOB and R rib pain when coughing. Did not now if she had a fever. She had an abnormal CT chest with a 15mm nodule and progressive lymphadenopathy during a recent hospital stay - states she is seeing someone for this but could not recall who. There is no disctinct PNM on current CXR however pts lactic acid is elevated. Past Medical/Surgical History Medical Problems: (1) AAA (abdominal aortic aneurysm) Status: Chronic (2) Adhesions Status: Chronic (3) ANXIETY STATE NOS Status: Chronic (4) Chronic low back pain Status: Chronic (5) Chronic obstructive lung disease Permanent Comment: severe Status: Chronic (6) Depressive disorder Status: Chronic (7) DIAB SHOAIB WO COMPL, TYPE II OR UNSPEC TYPE, NOT UNCNTRLD Status: Chronic (8) Diaphragmatic hernia Status: Chronic (9) Essential hypertension Status: Chronic (10) GENERAL OSTEOARTHROSIS Status: Chronic (11) Hyperlipidemia Status: Chronic (12) IRRITABLE BOWEL SYNDROME Status: Chronic (13) Left peroneal nerve palsy Status: Chronic (14) Overweight (BMI 25.0-29.9) Status: Chronic (15) PEPTIC ULCER NOS Status: Chronic (16) Tobacco user Status: Chronic (17) Vitamin D deficiency Status: Chronic Surgical Problems: (1) H/O Achilles tendon repair Status: Resolved (2) H/O: hysterectomy Status: Resolved (3) History of appendectomy Status: Resolved (4) History of bilateral oophorectomies Status: Resolved (5) History of lithotripsy Status: Resolved (6) Hx of cholecystectomy Status: Resolved (7) lipoma removal Status: Resolved (8) s/p breast lesion excision Status: Resolved Family History Bone cancer FATHER Diabetes mellitus FATHER MOTHER BROTHER FH: breast cancer MOTHER FH: lung cancer MOTHER FH: myocardial infarction FATHER, Onset:50's - 60 Malignant neoplasm of larynx BROTHER Social History Smoking Status: Current Every Day Smoker Drug Use: none Marital Status: Housing status: lives with significant other Occupational Status: disabled Immunizations History of Influenza Vaccine: Yes Influenza Vaccine Date: Aug 31, 2011 History of Tetanus Vaccine?: Yes Tetanus Immunization Date: Oct 31, 2009 History of Pneumococcal: Yes Pneumococcal Date: Oct 16, 2011 History of Hepatitis B Vaccine: No Allergies Coded Allergies: Diflunisal (Verified Allergy, Unknown, HEART RACES, 10/26/16) Home Medications Scheduled Aspirin (Aspirin Ec), 81 MG PO DAILY Atorvastatin (Lipitor), 40 MG PO QAM Carvedilol (Carvedilol), 25 MG PO BID Felodipine (Plendil), 10 MG PO QAM Fluticasone Prop/Salmeterol (Advair Diskus 500/50 60 Dose), 1 PUFFS INH BID Fluticasone Propionate (Nasal) (Flonase Allergy Relief), 2 SPRAYS FEROZ QAM Glimepiride (Glimepiride), 4 MG PO QAM Hctz/Lisinopril (Zestoretic 20MG/25MG), 1 TAB PO QAM Ipratropium-Albuterol (Combivent Respimat), 1 PUFFS INH QID Meloxicam (Mobic), 15 MG PO DAILY Metformin Hcl (Glucophage), 1,000 MG PO BIDM Omeprazole (Prilosec), 20 MG PO QAM Oxygen (Oxygen), 2 LITER NA CONTINOUS Tiotropium [place] (Spiriva Handihaler), 1 CAP INH HS Venlafaxine Hcl (Venlafaxine Extended Rel), 75 MG PO DAILY Scheduled PRN Albuterol Sulfate (Proair Hfa), 2 PUFF INH Q4 PRN for Shortness of Breath Dicyclomine Hcl (Dicyclomine Hcl), 1 CAP PO TID PRN for PRN Hydrocodone/Acetaminophen 5MG/325MG ([place] 5MG/325MG), 1-2 TABS PO Q6H PRN for Pain Ibuprofen (Motrin), 400 MG PO Q6H PRN for Pain Trazodone Hcl (Trazodone), 50 MG PO HS PRN for Pain Review of Systems Constitutional: No chills, No fever, No sweats Eyes: No worsening of vision ENT: No hearing loss, No unusual epistaxis Respiratory: + cough, + sputum, + wheezing Cardiovascular: + chest pain (chest wall pain R), No PND, No orthopnea Abdomen: No nausea, No pain, No vomiting Musculoskeletal: No joint pain, No muscle pain Genitourinary - Female: No dysuria, No urinary frequency, No urinary urgency Neurologic: No memory loss, No paralysis, No weakness Psychiatric: No depression symptoms Endocrine: No fatigue Hematologic / Lymphatic: No abnormal bleeding/bruising Integumentary: No rash Allergic / Immunologic: No environmental allergies Physical Exam Vital Signs Date Time Temp Pulse Resp B/P Pulse Ox O2 Delivery O2 Flow Rate FiO2 12/10/16 20:05 99 24 135/64 99 Nasal Cannula 2.0 12/10/16 18:18 110 12/10/16 18:05 95 Nasal Cannula 2.0 12/10/16 18:04 36.5 111 28 163/88 97 Nasal Cannula General Appearance: WD/WN, no apparent distress, + pertinent finding ( Overweight middle-aged female - productive cough - no acute distress - clearly audible wheezing) Head: normocephalic Eyes: normal inspection ENT: normal ENT inspection, pharynx normal Neck: supple, no JVD Respiratory/Chest: + accessory muscle use, + crackles, + wheezing, + pertinent finding (Chest wal pain R lower - ) Cardiovascular: no edema, + tachycardia Abdomen/GI: normal bowel sounds, non tender, soft Back: normal inspection, no CVA tenderness Extremities/Musculoskelatal: normal inspection, no calf tenderness, normal capillary refill, no pedal edema, normal range of motion Neurologic/Psych: 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6 % Lymphocytes (%) (Auto) 23.0 % Monocytes (%) (Auto) 5.6 % Eosinophils (%) (Auto) 1.9 % Basophils (%) (Auto) 0.3 % Neutrophils # (Auto) 6.92 1.4-6.5 K/uL Lymphocytes # (Auto) 2.32 1.2-3.4 K/uL Monocytes # (Auto) 0.56 0.11-0.59 K/uL Eosinophils # (Auto) 0.19 0-0.5 K/uL Basophils # (Auto) 0.03 0-0.2 K/uL RDW Standard Deviation 54.7 36.4-46.3 fL RDW Coefficient of Variation 17.7 11.5-14.5 % Immature Granulocyte % (Auto) 0.6 % Immature Granulocyte # (Auto) 0.06 0.00-0.02 K/uL Sodium Level 141 136-145 mmol/L Potassium Level 4.2 3.5-5.1 mmol/L Chloride Level 106 98-107 mmol/L Carbon Dioxide Level 24 21-32 mmol/L Anion Gap 11.0 3-11 mmol/L Blood Urea Nitrogen 18 7-18 mg/dl Creatinine 1.00 0.60-1.20 mg/dl Est Creatinine Clear Calc Drug Dose 58.3 ml/min Estimated GFR () 69.0 Estimated GFR (Non- 59.5 BUN/Creatinine Ratio 18.3 10-20 Random Glucose 245 70-99 mg/dl Bedside Lactic Acid Venous 2.98 0.90-1.70 mmol/L Calcium Level 8.5 8.5-10.1 mg/dl Total Creatine Kinase 35 26-192 U/L Creatine Kinase MB 1.0 0.5-3.6 ng/ml Creatine Kinase MB Ratio 2.9 0-3.0 Troponin I < 0.015 0-0.045 ng/ml Microbiology Results 12/10/16 Blood Culture, Maurice Batch Pending 12/10/16 Blood Culture, Maurice Batch Pending Diagnostic Radiology CXR: COPD, cardiomgealy CT chest 12/30: 1. Interval development of a 15 mm pleural-based right apical pulmonary nodule 2. Mild mediastinal lymphadenopathy which appears progressive 3. Mildly enlarged left hilar lymph nodes with equivocal secondary mild bronchial narrowing 4. Emphysema 5. Hepatic steatosis 6. Bilobed left adrenal mass, likely representing an adenoma EKG Sinus tach Impression Assessment and Plan 66 y/o F w/Hx advanced COPD who continues to smoke a pack of cigarettes daily - presents with progressive SOB x 2 days. Pt was recently treated for a COPD exacerbation receiving outpt Levaquin and prednisone but has worsened regardless. Describes a worsening productive cough, SOB and R rib pain when coughing. Did not now if she had a fever. She had an abnormal CT chest with a 15mm nodule and progressive lymphadenopathy during a recent hospital stay - states she is seeing someone for this but could not recall who. 1) SOB - COPD exacerbation / bronchitis - due to clinical worsening and lack of findings on CXR we will request an additional CT chest - she will be treated for COPD with steroids, nebs, Abx - we have started her on Unasyn an Zithro pending imaging and culture results. She is placed on an 02 protocol. Provided IVF and will repeat lactic AM 2) HTN - Cont HCTZ, RONNY, Carvedilol 3) HPL - cont Statin 4) DM - placed on sliding scale - PO meds held 5) Rib pain - Percocet PRN and cont Motrin - will evaluate for occult Fx with CT - she had sustaioned 6 rib Fx 6 months prior due to trauma on R 6) Tobacco abuse - the pt is well aware that cigarettes and continuous oxygen are a poor combination and has been advised on cessation multiple times Full code - Lovenox prophylaxis Total ad for this admit including review of records, imaging, EKG, meds - discussion with pt and ER MD 38 min Level of Care Med/Surg Resuscitation Status FULL RESUSCITATION VTE Prophylaxis VTE Risk Assessment Done? Y/N: Yes Risk Level: Moderate Given or contraindicated: Enoxaparin (Lovenox)SQ
[2016-12-10 20:46] VITALS: O2SAT 99; BMI 32.8
[2016-12-10 21:02] LABS: ALLEN TEST POS (POS); ARTERIAL BLOOD GAS BASE EXCESS -0.1 mEq/L (-9-1.8); ARTERIAL BLOOD GAS HCO3 26 mmol/L (19-24); ARTERIAL BLOOD GAS PO2 49 mm/Hg (80-95); ARTERIAL BLOOD GAS pH 7.36 (7.35-7.45); O2 ADMINISTRATION 2 LITERS
--- NOTE | 2016-12-10 21:45 | DIAGNOSTIC IMAGING REPORT ---
CT SCAN OF THE CHEST WITHOUT IV CONTRAST CLINICAL HISTORY: Pneumonia. COMPARISON STUDY: Chest CT scans dated 11/28/2016 and 1211. Chest x-ray dated 12/10/2016. TECHNIQUE: CT scan of the thorax was performed from the thoracic inlet to the upper abdomen. Images are reviewed in the axial, sagittal, and coronal planes. IV contrast was not administered for this examination as per the referring clinician. CT DOSE: 444.90 mGy.cm FINDINGS: Thyroid: Imaged portions of the thyroid gland are normal in size and attenuation. Thoracic aorta: There is atherosclerotic calcification of the thoracic aorta, which is normal in caliber and demonstrates standard 3-vessel arch anatomy. Heart: The heart is top normal in size and without pericardial effusion. The coronary arteries are densely calcified. Lungs and pleural spaces: Emphysema is noted. Linear atelectasis versus scarring is again noted in the left upper lobe and lingula. There is no airspace consolidation typical for pneumonia or pleural effusion. Scattered calcified granulomas are observed. The trachea and central airways are clear. Postoperative change is questioned at the right lung base. The right apical nodular density seen on 11/28/2016 has significantly cleared with only minimal linear density present at this site on today's examination. This is best seen on axial image #36. Mediastinum: Scattered subcentimeter mediastinal lymph nodes are not pathologically enlarged by size criteria. Calcification containing mediastinal lymph nodes are observed. Brandi: Not well assessed without IV contrast. Axillae: There is no axillary lymphadenopathy. Upper abdomen: There is a tiny hiatal hernia. Cholecystectomy clips are noted. The liver is enlarged and steatotic. Calcified splenic granulomas are identified. There is cortical atrophy of the partially imaged kidneys. Small left adrenal nodules measuring up to 1.[address] criteria for fat-containing adenomas. Skeletal structures: The skeletal structures are osteopenic. No lytic or blastic bony lesions are seen. There are healed right-sided rib fractures. IMPRESSION: 1. Emphysema. 2. There is no airspace consolidation typical for pneumonia or pleural effusion. 3. There is evidence of remote granulomas infection. 4. Hepatic steatosis. 5. The right apical nodular density identified on 11/28/2016 has significantly decreased in size/density and was likely related to atelectasis/inflammation. 6. Additional changes as above. Electronically signed by: Koby Wallace M.D. 12/10/2016 9:43 PM Dictated Date/Time: 12/10/2016 9:37 PM
[2016-12-10 22:49] VITALS: BP 133/79; PULSE 96; TEMP 36.6; O2SAT 95
[2016-12-10] MEDS ORDERED: GLUCAGON FOR INJ 1 MG VIAL SQ PRN (23:30)
[2016-12-10] MEDS ORDERED: GLUCOSE 40% GEL 15 GM TUBE PO PRN (23:30)
[2016-12-10] MEDS ORDERED: DEXTROSE 50% 50 ML SYR IV PRN (23:30)
[2016-12-10] MEDS ORDERED: GLUCOSE 10 TABS/TUBE PO PRN (23:30)
[2016-12-10] MEDS: SODIUM CHLORIDE 0.9% 1000ML 1,000 ML IV SCH (23:37)
[2016-12-10] MEDS ORDERED: POLYETHYLENE (MIRALAX) 17 GM PACK PO PRN (23:45)
[2016-12-11] VITALS (7 sets, daily range): BP systolic 119–138; BP diastolic 60–83; PULSE 94–101; TEMP 36.6–36.9; O2SAT 90–96
[2016-12-11] MEDS ORDERED: AZITHROMYCIN IV 500 MG in DEXTROSE 5% 250ML 250 ML IV SCH ×2
[2016-12-11] MEDS ORDERED: AMPICILLIN/SULBACTAM SOD INJ 3,000 MG in SODIUM CHLORIDE 0.9% 100ML 100 ML IV SCH ×2
[2016-12-11] MEDS: TIOTROPIUM BROMIDE 5 PUFF/90 MCG INH INH SCH ×2 (00:06→21:13)
[2016-12-11] MEDS: CARVEDILOL 25 MG TAB PO SCH ×3 (00:07→21:11)
[2016-12-11] MEDS: INSULIN ASPART 100 UNITS/ML 3 ML PEN SC SCH ×5 (00:14→21:48)
[2016-12-11] MEDS: HYDROCODONE/ACETAMOPHEN 5/325MG TAB PO PRN ×2 (00:19→07:50)
[2016-12-11] MEDS: ALBUT/IPRATROP 3MG/0.5MG NEB 3 ML VIAL INH SCH ×4 (01:53→19:52)
[2016-12-11] MEDS: METHYLPREDNISOLONE IV 60 MG in SYRINGE 0 ML IV SCH ×3 (02:39→14:15)
[2016-12-11] MEDS: SODIUM CHLORIDE 0.9% 1000ML 1,000 ML IV SCH (07:50)
[2016-12-11] MEDS: FLUTICASONE/SALMETEROL (ADVAIR) 500/50 INH 14 PUFF INH SCH ×2 (07:52→21:09)
[2016-12-11] MEDS: FLUTICASONE PROPIONATE NA SPR 16 GM BTL NAE SCH (07:52)
[2016-12-11] MEDS: ASPIRIN 81 MG ECTAB PO SCH (07:53)
[2016-12-11] MEDS: PANTOprazole SOD 40 MG TAB PO SCH (07:53)
[2016-12-11] MEDS: ATORVASTATIN 40 MG TAB PO SCH (07:53)
[2016-12-11] MEDS: LISINOPRIL/HCTZ 20/25MG TAB PO SCH (07:53)
[2016-12-11] MEDS: FELODIPINE 5 MG TABCR PO SCH (07:54)
[2016-12-11] MEDS ORDERED: IPRATROPIUM BROMIDE/ALBUTEROL respimat INH INH SCH (08:00)
[2016-12-11] MEDS ORDERED: VENLAFAXINE HCL XR 75 MG CAPXR PO SCH (08:00)
[2016-12-11] MEDS ORDERED: KETOROLAC TROMETHAMINE 30 MG/ML VIAL IV ONE (08:30)
[2016-12-11 08:43] LABS: PROTHROMBIN TIME (PATIENT) 10.4 SECONDS (9.0-12.0)
[2016-12-11] MEDS ORDERED: INSULIN GLARGINE SOLOSTAR 100 UNITS/ML 3 ML PEN SC SCH ×2 (09:00→20:00)
[2016-12-11 09:19] LABS: BUN/CREATININE RATIO 20.5 (10-20); CALCIUM 8.8 mg/dl (8.5-10.1); CREATININE 0.97 mg/dl (0.60-1.20); MAGNESIUM 1.9 mg/dl (1.8-2.4); POTASSIUM 4.8 mmol/L (3.5-5.1)
[2016-12-11 09:31] LABS: BETA-HYDROXYBUTYRATE 1.96 mg/dL (0.2-2.81)
[2016-12-11] MEDS: ENOXAPARIN 40 MG/0.4 ML SYR SQ SCH (09:44)
--- NOTE | 2016-12-11 10:12 | Clinical Documentation Query ---
REFUGIO Gonzalez : CLINICAL DOCUMENTATION QUERY Patient is a 66 year old female with advanced COPD admitted secondary to acute exacerbation thereof. Documentation includes the use of supplemental oxygen therapy, noted to be continuous in the setting of above. Please clarify as clinically appropriate at this directly impacts DRG assignment and therefore severity of illness and risk of mortality measures. In your clinical opinion is this patient being managed for: ( ) Chronic hypoxic respiratory failure ( ) Other explanation of clinical findings (Please Explain) ( ) Unable to determine (Please Define) ( ) Need to Discuss ( ) Not Agree The medical record reflects the following clinical findings, treatment, and risk factors. Clinical Indicators: As above Treatment: Ongoing supplementation of oxygen Risk Factors: COPD, smoking Please clarify and document your clinical opinion in the progress notes and discharge summary. Terms such as "probable", "suspected", "likely", "questionable", "possible", or "still to be ruled out" are acceptable. IF IN AGREEMENT, YOU MUST DOCUMENT ABOVE DIAGNOSTIC STATEMENT IN DAILY PROGRESS NOTES AND DISCHARGE SUMMARY. This document is not part of the patient's record. Thank You, Javed Greenfield, RN [phone]
[2016-12-11] MEDS: MoRPHine SULFATE 2 MG/ML CARP IV PRN ×4 (12:34→22:35)
[2016-12-11] MEDS ORDERED: VENLAFAXINE HCL XR 75 MG CAPXR PO ONE (13:45)
--- NOTE | 2016-12-11 13:56 | Hospitalist Progress Note ---
Hospitalist Progress Note Date of Service Dec 11, 2016. (Ashly Casey ., PA-C) Subjective Pt evaluation today including: conversation w/ patient, physical exam, chart review, lab review, review of studies, review of inpatient medication list Voiding: no voiding problems, no incontinence Patient states she is feeling better since admission. SOB has improved, but still present. +non-productive cough. +nasal drainage, green in color- ongoing x couple of weeks. Denies any sinus pressure or discomfort. +right-sided rib pain and overall arthritic pain. Patient denies any fever, chills, sweats, lightheadedness, dizziness, vision changes, CP, palpitations, edema, abdominal pain, nausea, vomiting, diarrhea, urinary symptoms, melena, numbness/tingling, weakness, active bleeding, or new skin discoloration/changes. (Ashly Casey ., PA-C) Medications Current Inpatient Medications Medications (Trade) Dose Ordered Sig/Melissa Route Start Time Stop Time Status Last Admin Dose Admin Azithromycin 500 mg/Dextrose 255 ml @ 125 mls/hr DAILY@2200 IV 12/11/16 00:00 12/18/16 00:00 12/11/16 00:07 125 MLS/HR Sodium Chloride (Nss 1000ml) 1,000 ml @ 125 mls/hr Q8H IV 12/10/16 23:30 12/11/16 15:29 12/11/16 07:50 125 MLS/HR Insulin Aspart (novoLOG ASPART) SLIDING SCALE G... ACHS SC 12/10/16 23:30 01/09/17 23:29 12/11/16 08:01 5 UNITS Aspirin (Ecotrin Tab) 81 mg DAILY PO 12/11/16 08:00 01/10/17 08:59 12/11/16 07:53 81 MG Atorvastatin Calcium (Lipitor Tab) 40 mg QAM PO 12/11/16 08:00 01/10/17 08:59 12/11/16 07:53 40 MG Carvedilol (Coreg Tab) 25 mg BID PO 12/10/16 23:30 01/09/17 23:29 12/11/16 07:53 25 MG Dicyclomine HCl (Bentyl Cap) 10 mg TID PRN PO 12/10/16 20:15 01/09/17 20:14 Felodipine (Plendil Tabcr) 10 mg QAM PO 12/11/16 08:00 01/10/17 08:59 12/11/16 07:54 10 MG Salmeterol Xinafoate/ Fluticasone (Advair Diskus 500/50 Inh) 1 puff BID INH 12/11/16 08:00 01/10/17 07:59 12/11/16 07:52 1 PUFF Fluticasone Propionate (Flonase Nasal [place]) 2 sprays QAM FEROZ 12/11/16 08:00 01/10/17 08:59 12/11/16 07:52 2 SPRAYS HCTZ/Lisinopril (Prinzide 20-25MG Tab) 1 tab QAM PO 12/11/16 08:00 01/10/17 08:59 12/11/16 07:53 1 TAB Acetaminophen/ Hydrocodone Bitart ([place]more 5/325 Tab) 1 tab Q6H PRN PO 12/10/16 20:15 12/24/16 20:14 12/11/16 07:50 1 TAB Ibuprofen (Advil Tab) 400 mg Q6H PRN PO 12/10/16 20:15 01/09/17 20:14 Tiotropium [place] (Spiriva Handihaler Inhaler) 1 puff HS INH 12/10/16 23:30 01/09/17 23:29 12/11/16 00:06 1 PUFF Trazodone HCl (Desyrel Tab) 50 mg HS PRN PO 12/10/16 20:15 01/09/17 20:14 Venlafaxine HCl (effeXOR EXTENDED REL CAP) 75 mg DAILY PO 12/11/16 08:00 01/10/17 08:59 12/11/16 07:54 75 MG Pantoprazole Sodium (Protonix Tab) 40 mg QAM PO 12/11/16 08:00 01/10/17 07:59 12/11/16 07:53 40 MG Enoxaparin Sodium (Lovenox Inj) 40 mg Q24H SQ 12/11/16 09:00 01/10/17 08:59 12/11/16 09:44 40 MG Acetaminophen (Tylenol Tab) 650 mg Q4H PRN PO 12/10/16 20:15 01/09/17 20:14 Al Hydrox/Mg Hydrox/Simethicone (Maalox Max Susp) 15 ml Q4H PRN PO 12/10/16 20:15 01/09/17 20:14 Magnesium Hydroxide (Milk Of Magnesia Susp) 30 ml Q6H PRN PO 12/10/16 20:15 01/09/17 20:14 Polyethylene (Miralax Powder Packet) 17 gm DAILY PRN PO 12/10/16 23:45 01/09/17 23:44 Ondansetron HCl (Zofran Inj) 4 mg Q6H PRN IV 12/10/16 20:15 01/09/17 20:14 Albuterol/ Ipratropium (Duoneb) 3 ml Q6R INH 12/11/16 03:00 01/10/17 02:59 12/11/16 07:09 3 ML Albuterol Sulfate 2.5 mg 2.5 mg Q4H PRN INH 12/10/16 20:15 01/09/17 20:14 Methylprednisolone Sodium Succinate/ Syringe (Solu-Medrol IV/ Syringe) 0.96 ml @ 1.5 mls/min Q6H IV 12/11/16 02:00 01/10/17 01:59 12/11/16 08:06 1.5 MLS/MIN Glucose (Glucose 40% Gel) 15-30 GRAMS 15 GRAMS... UD PRN PO 12/10/16 23:30 01/09/17 23:29 Glucose (Glucose Chew Tab) 4-8 Tablets 4 Tabl... UD PRN PO 12/10/16 23:30 01/09/17 23:29 Dextrose (Dextrose 50% 50ML Syringe) 25-50ML OF 50% DW IV FOR... UD PRN IV 12/10/16 23:30 01/09/17 23:29 Glucagon (Glucagon Inj) 1 mg UD PRN SQ 12/10/16 23:30 01/09/17 23:29 Insulin Glargine (Lantus Solostar Pen) 10 unit QAM SC 12/11/16 09:00 01/10/17 08:59 12/11/16 08:56 10 UNIT (Ashly Casey, MAIDA) Objective Vital Signs Date Time Temp Pulse Resp B/P Pulse Ox O2 Delivery O2 Flow Rate FiO2 1/18/17 07:37 36.6 96 18 138/83 90 Room Air 12/11/16 07:09 94 20 91 Nasal Cannula 2.0 12/11/16 01:54 94 20 96 Nasal Cannula 1.0 12/11/16 00:00 Nasal Cannula 2.0 12/10/16 22:49 36.6 96 20 133/79 95 Nasal Cannula 2.0 12/10/16 21:45 95 18 147/83 99 Nasal Cannula 2.0 12/10/16 20:46 99 Nasal Cannula 2.0 12/10/16 20:05 99 24 135/64 99 Nasal Cannula 2.0 12/10/16 18:18 110 12/10/16 18:05 95 Nasal Cannula 2.0 12/10/16 18:04 36.5 111 28 163/88 97 Nasal Cannula (Ashly Casey ., PA-C) Physical Exam General Appearance: no apparent distress, + obese Eyes: normal inspection, PERRL ENT: hearing grossly normal Neck: supple Respiratory/Chest: + decreased breath sounds, + wheezing (expiratory, throughout all lung monsivais ) Cardiovascular: regular rate, rhythm, no edema Abdomen: normal bowel sounds, non tender, soft Extremities: no pedal edema, no calf tenderness Neurologic/Psychiatric: alert, normal mood/affect, oriented x 3 Skin: normal color, warm/dry, no rash (Ashly Casey ., PA-C) Laboratory Results Last 24 Hours Test 12/10/16 18:30 12/10/16 20:41 12/11/16 00:07 12/11/16 07:48 White Blood Count 10.08 K/uL Red Blood Count 4.39 M/uL Hemoglobin 11.6 g/dL Hematocrit 36.8 % Mean Corpuscular Volume 83.8 fL Mean Corpuscular Hemoglobin 26.4 pg Mean Corpuscular Hemoglobin Concent 31.5 g/dl Platelet Count 408 K/uL Mean Platelet Volume 9.5 fL Neutrophils (%) (Auto) 68.6 % Lymphocytes (%) (Auto) 23.0 % Monocytes (%) (Auto) 5.6 % Eosinophils (%) (Auto) 1.9 % Basophils (%) (Auto) 0.3 % Neutrophils # (Auto) 6.92 K/uL Lymphocytes # (Auto) 2.32 K/uL Monocytes # (Auto) 0.56 K/uL Eosinophils # (Auto) 0.19 K/uL Basophils # (Auto) 0.03 K/uL RDW Standard Deviation 54.7 fL RDW Coefficient of Variation 17.7 % Immature Granulocyte % (Auto) 0.6 % Immature Granulocyte # (Auto) 0.06 K/uL Sodium Level 141 mmol/L Potassium Level 4.2 mmol/L Chloride Level 106 mmol/L Carbon Dioxide Level 24 mmol/L Anion Gap 11.0 mmol/L Blood Urea Nitrogen 18 mg/dl Creatinine 1.00 mg/dl Est Creatinine Clear Calc Drug Dose 58.3 ml/min Estimated GFR () 69.0 Estimated GFR (Non- 59.5 BUN/Creatinine Ratio 18.3 Random Glucose 245 mg/dl Bedside Lactic Acid Venous 2.98 mmol/L Calcium Level 8.5 mg/dl Total Creatine Kinase 35 U/L Creatine Kinase MB 1.0 ng/ml Creatine Kinase MB Ratio 2.9 Troponin I < 0.015 ng/ml Arterial Blood pH 7.36 Arterial Blood Partial Pressure CO2 46 mmHg Arterial Blood Partial Pressure O2 49 mm/Hg Arterial Blood HCO3 26 mmol/L Arterial Blood Oxygen Saturation 82.0 % Arterial Blood Base Excess -0.1 mEq/L Arterial Blood Gas Delivery 2 LITERS Presley Test POS Bedside Glucose 294 mg/dl 346 mg/dl Test 12/11/16 08:20 Prothrombin Time 10.4 SECONDS Prothromb Time International Ratio 1.0 (Ashly Casey, PA-C) Assessment and Plan 66 y/o F w/Hx advanced COPD who continues to smoke a pack of cigarettes daily - presents with progressive SOB x 2 days. Pt was recently treated for a COPD exacerbation receiving outpt Levaquin and prednisone but has worsened regardless. Describes a worsening productive cough, SOB and R rib pain when coughing. Did not now if she had a fever. She had an abnormal CT chest with a 15mm nodule and progressive lymphadenopathy during a recent hospital stay - states she is seeing someone for this but could not recall who. SOB - COPD exacerbation / bronchitis: - Admit med/surg - CXR: Cardiomegaly and emphysema with no acute cardiopulmonary abnormality - CT: Emphysema. There is no airspace consolidation typical for pneumonia or pleural effusion. There is evidence of remote granulomas infection. Hepatic steatosis. The right apical nodular density identified on 11/28/2016 has significantly decreased in size/density and was likely related to atelectasis/ inflammation. -- Follows with pulmonary, Dr. Jenkins- Arranging PET/CT scan and nodule biopsy - IV Solu Medrol 60 mg q6 hrs (started 12/11), jesenia to oral as patient's status improves - DuoNebs, continue inhalers - Empirically started on IV Azithromycin and Unasyn x 1 dose due to elevated lactic acid and failed outpatient treatment. -- No evidence of acute infection on radiology. d/c - 02 protocol- wears 2L O2 at home - IV NSS @ 125 ml/hr Sinusitis: - Start Augmentin 875 mg PO BID x10 days (started on 12/11) HTN: - Continue Prinzide 1 tab PO QAM - Continue Coreg 25 mg PO BID - Continue Plendil 10 mg PO QAM HPL: - Continue Lipitor 40 mg PO QAM DM: - Held Metformin 1,000 mg PO BID - Hyperglycemia, secondary to IV steroids- start Lantus 10 units SC QAM, titrate as needed. - BSG ACHS - Sliding insulin scale Rib pain: - She had sustained 6 rib Fx 6 months prior due to trauma on R- No evidence of acute fractures on CT of chest - Atmore 1 tab PO q6 hrs PRN and continue Motrin - IV Toradol 30 mg x1 dose Chronic arthritic pain/left knee pain: - IV Morphine 2 mg q3 hrs PRN - Patient was receiving Tramadol from PCP but was recently cutoff from pain medication. Very discouraged with outpatient pain management treatment. -- History of opiate misuse per Dr. Sifuentes office. Anxiety/Depression: - Continue Effexor 75 mg PO QAM -- Increased to 150 mg PO daily (12/11) - Patient states she feels that she is ready to . Stating, "you just know when it's your time." Denies any suicidal ideations. States she spoke to psychiatry in the past, with no help. Tobacco abuse: - Smoking cessation GI Prophylaxis: - Pantoprazole 40 mg - Maalox PRN - IV Zofran PRN - Colace and/or Milk of Mag PRN DVT prophylaxis: - Lovenox 40 mg SQ q24 hrs - CORA and SCDs Code Status: - LEVEL I, FULL Dispo: - Discharge to home once medically stable. - Lives at home. Daughter is a nurse from [place] who is currently visiting. (Lenoj carlosAshly ., PALeydaC) Attending Attestation: Pt seen/examined, chart reviewed, and care plan d/w PA Ashly Lenoj carlos. I agree w/ the [place] components of her progress note documentation. Ms. Casey and I saw the patient in concert today. During the visit the patient was adamant about leaving this afternoon, stating she needed to get home to be with her daughter. We advised against such in light of her ongoing pulmonary issues and frequent visits to the hospital for this. She openly admitted she has lost hope regarding her physical state and believes that "she is slowly dying." She admits to depression. Chronic pain is a problem for her and she feels she is being undertreated. She declined psych consult while here. Denied suicidal ideation. At conclusion of visit she was willing to stay in the hospital. VSS, o2 sats acceptable gen - nad, agitated mouth - MMM neck - no JVD heart - RRR, s1, s2 lungs - mild, diffuse wheezing all lung segments abd - soft, NT, obese, BS+ ext - no edema psych - restricted affected FSBS all elevated >250 A/P: 1. chronic resp failure 2nd to severe COPD 2. COPD with exacerbation x several weeks 3. ?sinusitis (2+ weeks of URI symptoms, purulent nasal discharge, etc) 4. depression 5. chronic pain syndrome cont steroids but cut to q12h titrate lantus and novolog increase effexor morphine q3h prn pain augmentin for sinusitis Yoana GARZA MD (Anibal Garza MD)
[2016-12-11] MEDS: AMOXICILLIN/CLAVULANATE TAB 875 MG TAB PO SCH (18:01)
[2016-12-12 01:52] VITALS: PULSE 96; O2SAT 93
[2016-12-12] MEDS: ALBUT/IPRATROP 3MG/0.5MG NEB 3 ML VIAL INH SCH ×2 (01:52→07:37)
[2016-12-12] MEDS ORDERED: METHYLPREDNISOLONE IV 60 MG in SYRINGE 0 ML IV SCH (02:00)
[2016-12-12] MEDS: MoRPHine SULFATE 2 MG/ML CARP IV PRN ×2 (02:07→07:31)
[2016-12-12 06:40] LABS: BUN/CREATININE RATIO 27.2 (10-20); CALCIUM 8.7 mg/dl (8.5-10.1); CREATININE 0.96 mg/dl (0.60-1.20); POTASSIUM 4.6 mmol/L (3.5-5.1)
[2016-12-12 06:49] LABS: BETA-HYDROXYBUTYRATE 1.49 mg/dL (0.2-2.81)
[2016-12-12 07:19] VITALS: BP 128/67; PULSE 82; TEMP 36.8; O2SAT 90
[2016-12-12] MEDS: FLUTICASONE/SALMETEROL (ADVAIR) 500/50 INH 14 PUFF INH SCH (07:33)
[2016-12-12] MEDS: ASPIRIN 81 MG ECTAB PO SCH (07:34)
[2016-12-12] MEDS: CARVEDILOL 25 MG TAB PO SCH (07:34)
[2016-12-12] MEDS: LISINOPRIL/HCTZ 20/25MG TAB PO SCH (07:34)
[2016-12-12] MEDS: ATORVASTATIN 40 MG TAB PO SCH (07:34)
[2016-12-12] MEDS: FELODIPINE 5 MG TABCR PO SCH (07:35)
[2016-12-12] MEDS: ENOXAPARIN 40 MG/0.4 ML SYR SQ SCH (07:36)
[2016-12-12] MEDS: FLUTICASONE PROPIONATE NA SPR 16 GM BTL NAE SCH (07:36)
[2016-12-12 07:37] VITALS: PULSE 74; O2SAT 91
[2016-12-12] MEDS ORDERED: VENLAFAXINE HCL XR 150 MG CAPXR PO SCH (08:00)
[2016-12-12] MEDS: AMOXICILLIN/CLAVULANATE TAB 875 MG TAB PO SCH (08:21)
[2016-12-12] MEDS: PANTOprazole SOD 40 MG TAB PO SCH (08:21)
[2016-12-12] MEDS ORDERED: INSULIN GLARGINE SOLOSTAR 100 UNITS/ML 3 ML PEN SC ONE (09:00)
[2016-12-12] MEDS: INSULIN ASPART 100 UNITS/ML 3 ML PEN SC SCH ×2 (09:06→12:54)
[2016-12-12] MEDS: HYDROCODONE/ACETAMOPHEN 5/325MG TAB PO PRN (09:07)
[2016-12-12] MEDS ORDERED: BENZONATATE 100MG CAP PO SCH (10:00)
[2016-12-12] MEDS ORDERED: GUAIFENESIN 600 MG TABCR PO SCH (10:00)
[2016-12-12] MEDS ORDERED: AMOX1TAB43 PO (12:15)
[2016-12-12] MEDS ORDERED: PRED10TA PO (12:30)
--- NOTE | 2016-12-12 12:45 | Discharge Instructions ---
Discharge Instructions Admission Reason for Admission: Bronchitis, Copd Exacerbation (Ashly Casey PA-C) Discharge Discharge Diagnosis / Problem: COPD exacerbation; DM; sinusitis (Ashly Casey PA-C) Discharge Goals Goal(s): Decrease discomfort, Improve function, Improve disease control, Diagnostic testing, Therapeutic intervention, Prevent Disease Progression (Ashly Casey PA-C) Activity Recommendations Activity Limitations: resume your previous activity . (Ashly Casey PA-C) Instructions / Follow-Up Instructions / Follow-Up YOU ARE LEAVING AGAINST MEDICAL ADVICE. It has been HIGHLY recommended and encouraged that you do NOT leave today- the complaints that you sought care for have NOT been completely resolved at this time. We have discussed with you that your COPD exacerbation is being treated with IV steroids, for which we cannot provide this care for you at home. At this time due to your COPD exacerbation, your are requiring more oxygen supplementation at rest- something we would like to continue to monitor and see improvement in. Additionally, due to your IV steroid treatment and history of diabetes, your sugar levels have been very high. We are treating these levels with insulin injections, medication that you do not have at home. You must follow-up with your PCP within 24 hours of leaving the hospital. You need to call and arrange this appointment. You are currently requiring 3L of O2 at rest. DO NOT SMOKE. You have been given a script for Tramadol 50 mg to take by mouth every 6 hours, ONLY NEEDED, for pain. You have been prescribed Augmentin 875 mg to take by mouth twice per day for 9 more days. Please complete entire course of medication, regardless if you feel your symptoms have improved. You have been placed on a Prednisone jesenia. Take 60 mg by mouth x3 days, then 50 mg by mouth x3 days, then 40 mg by mouth x3 days, then 30 mg by mouth x2 days , then 20 mg by mouth x2 days, then 10 mg by mouth x2 days. During your stay, we have INCREASED your Effexor to 150 mg by mouth once daily. You may take Mucinex as instructed on the box for cough/congestion. This can be bought over the counter. You may resume all other regular home medications as prescribed to you. ONLY take medications as prescribed to you. Please follow-up/keep all of your subspecialty appointments. (MurAshly campbell PA-C) Current Hospital Diet Patient's current hospital diet: AHA Diet (Heart Healthy), Diabetes Type 2 Diet (Ashly Casey PA-C) Discharge Diet Recommended Diet: AHA Diet (Heart Healthy), Diabetes Type 2 Diet (Ashly Casey PA-C) Pending Studies Studies pending at discharge: no (Ashly Casey PA-C) Laboratory Results Last 24 Hours Test 12/11/16 16:52 12/11/16 20:06 12/12/16 05:52 12/12/16 07:50 Bedside Glucose 314 mg/dl 321 mg/dl 327 mg/dl Sodium Level 139 mmol/L Potassium Level 4.6 mmol/L Chloride Level 103 mmol/L Carbon Dioxide Level 27 mmol/L Anion Gap 9.0 mmol/L Blood Urea Nitrogen 26 mg/dl Creatinine 0.96 mg/dl Est Creatinine Clear Calc Drug Dose 60.8 ml/min Estimated GFR () 72.4 Estimated GFR (Non- 62.5 BUN/Creatinine Ratio 27.2 Random Glucose 323 mg/dl Calcium Level 8.7 mg/dl Beta-Hydroxybutyric Acid 1.49 mg/dL Test 12/12/16 11:41 Bedside Glucose 282 mg/dl Hemoglobin A1c Test 09/30/16 05:25 Range/Units Estimated Average Glucose 192 mg/dl Hemoglobin A1c 8.3 H 4.5-5.6 % (Ashly Caesy PA-C) Medical Emergencies . Who to Call and When: Medical Emergencies: If at any time you feel your situation is an emergency, please call 911 immediately. . (Ashly Casey PA-C) Non-Emergent Contact Non-Emergency issues call your: Primary Care Provider Call Non-Emergent contact if: you have a fever, temperature is above 100.5, your pain is not controlled, your pain is worsening, your pain is unusual for you, your pain is concerning you, you have any medication questions . (Ashly Casey PA-C) . "Provider Documentation" section prepared by Ashly Casey. (Ashly Casey PA-C) Attending Attestation: Pt seen/examined and care plan d/w [place] Casey on day of discharge. Patient left against medical advice (AMA) despite extensive counseling regarding risks of such. I agree with her discharge instructions as outlined. Anibal Garza MD (Anibal Garza MD) VTE Core Measure Inpt VTE Proph given/why not?: Enoxaparin (Lovenox)SQ (Ashly Casey PA-C) [place] Drug Monitoring Program Search Results: patient reviewed within database (Ashly Casey PA-C)
--- NOTE | 2016-12-12 13:08 | Discharge Summary ---
Discharge Summary Admission Date: Dec 10, 2016 at 20:29 Discharge Date: Dec 12, 2016 Discharge Disposition: Home Principal Diagnosis: COPD exacerbation Problems/Secondary Diagnoses: 1. DM 2. Hyperglycemia secondary to IV steroids 3. Anxiety 4. Chronic pain 5. Tobacco abuse Immunizations: Have You Had Influenza Vaccine: Yes Influenza Vaccine Date: Aug 31, 2011 History of Tetanus Vaccine?: Yes Tetanus Immunization Date: Oct 31, 2009 History of Pneumococcal: Yes Pneumococcal Date: Oct 16, 2011 History of Hepatitis B Vaccine: No Procedures: SINGLE VIEW CHEST CLINICAL HISTORY: Atypical chest pain. Dyspnea. FINDINGS: An AP, portable, upright chest radiograph is compared to chest x-ray and chest CT dated 11/28/2016. The heart is enlarged and there is atherosclerotic calcification of the thoracic aorta. The pulmonary vasculature is noncongested. Emphysema and chronic interstitial thickening is similar to previous. There is mild chronic elevation of the left hemidiaphragm and bibasilar atelectasis. No airspace consolidation or large pleural effusion is identified tiny calcified granulomas are again noted. Pulmonary nodules seen on the 11/28/2016 chest x-ray are not well visualized by CT. No pneumothorax is seen. The skeletal structures are osteopenic. The bony thorax is grossly intact. IMPRESSION: Cardiomegaly and emphysema with no acute cardiopulmonary abnormality. Electronically signed by: Koby Wallace M.D. 12/10/2016 6:41 PM Dictated Date/Time: 12/10/2016 6:39 PM The status of this report is Signed. Draft = Not yet reviewed or approved by Radiologist. Signed = Reviewed and approved by Radiologist. CT SCAN OF THE CHEST WITHOUT IV CONTRAST CLINICAL HISTORY: Pneumonia. COMPARISON STUDY: Chest CT scans dated 11/28/2016 and 1211. Chest x-ray dated 12/10/2016. TECHNIQUE: CT scan of the thorax was performed from the thoracic inlet to the upper abdomen. Images are reviewed in the axial, sagittal, and coronal planes. IV contrast was not administered for this examination as per the referring clinician. CT DOSE: 444.90 mGy.cm FINDINGS: Thyroid: Imaged portions of the thyroid gland are normal in size and attenuation. Thoracic aorta: There is atherosclerotic calcification of the thoracic aorta, which is normal in caliber and demonstrates standard 3-vessel arch anatomy. Heart: The heart is top normal in size and without pericardial effusion. The coronary arteries are densely calcified. Lungs and pleural spaces: Emphysema is noted. Linear atelectasis versus scarring is again noted in the left upper lobe and lingula. There is no airspace consolidation typical for pneumonia or pleural effusion. Scattered calcified granulomas are observed. The trachea and central airways are clear. Postoperative change is questioned at the right lung base. The right apical nodular density seen on 11/28/2016 has significantly cleared with only minimal linear density present at this site on today's examination. This is best seen on axial image #36. Mediastinum: Scattered subcentimeter mediastinal lymph nodes are not pathologically enlarged by size criteria. Calcification containing mediastinal lymph nodes are observed. Brandi: Not well assessed without IV contrast. Axillae: There is no axillary lymphadenopathy. Upper abdomen: There is a tiny hiatal hernia. Cholecystectomy clips are noted. The liver is enlarged and steatotic. Calcified splenic granulomas are identified. There is cortical atrophy of the partially imaged kidneys. Small left adrenal nodules measuring up to 1.[address] criteria for fat-containing adenomas. Skeletal structures: The skeletal structures are osteopenic. No lytic or blastic bony lesions are seen. There are healed right-sided rib fractures. IMPRESSION: 1. Emphysema. 2. There is no airspace consolidation typical for pneumonia or pleural effusion. 3. There is evidence of remote granulomas infection. 4. Hepatic steatosis. 5. The right apical nodular density identified on 11/28/2016 has significantly decreased in size/density and was likely related to atelectasis/inflammation. 6. Additional changes as above. Electronically signed by: Koby Wallace M.D. 12/10/2016 9:43 PM Dictated Date/Time: 12/10/2016 9:37 PM The status of this report is Signed. Draft = Not yet reviewed or approved by Radiologist. Signed = Reviewed and approved by Radiologist. (Ashly Casey, APPLEC) Discharge Disposition: Home (AGAINST MEDICAL ADVICE ) Problems/Secondary Diagnoses: probable acute sinusitis depression chronic respiratory failure on home O2 HTN h/o PUD (Anibal Garza MD) Medication Reconciliation New Medications: Prednisone Tab (Prednisone) 10 Mg Tab 10 MG PO UD for 15 Days, #57 TAB 60mg x3 days, 50mg x3 days, 40mg x3 days, 30 mgx2 days, 20mg x2 days, 10mg x2 days Amoxicillin & Pot Clavulanate (Amoxicillin/Clavulanate P) 1 Tab Tab 875 MG PO BIDM for 9 Days, #18 TAB Continued Medications: Albuterol Sulfate (Proair Hfa) 108 Mcg/ Aer 2 PUFF INH Q4 PRN for Shortness of Breath, #9 Aspirin (Aspirin Ec) 81 Mg Tab 81 MG PO DAILY Atorvastatin (Lipitor) 40 Mg Tab 40 MG PO QAM Carvedilol (Carvedilol) 25 Mg Tab 25 MG PO BID Dicyclomine Hcl (Dicyclomine Hcl) 10 Mg Cap 1 CAP PO TID PRN for PRN for 30 Days, #90 CAP 3 Refills Felodipine (Plendil) 10 Mg Tabcr 10 MG PO QAM, TAB Fluticasone Prop/Salmeterol (Advair Diskus 500/50 60 Dose) 1 Ea Aerp 1 PUFFS INH BID for 30 Days, #1 INHALER 5 Refills Fluticasone Propionate (Nasal) (Flonase Allergy Relief) 50 Mcg/Act Spr 2 SPRAYS FEROZ QAM Glimepiride (Glimepiride) 4 Mg Tab 4 MG PO QAM for 30 Days, #30 TAB 5 Refills Hctz/Lisinopril (Zestoretic 20MG/25MG) 1 Ea Tab 1 TAB PO QAM, TAB Hydrocodone/Acetaminophen 5MG/325MG ([place] 5MG/325MG) Tab 1-2 TABS PO Q6H PRN for Pain, TAB PRN PAIN Ibuprofen (Motrin) 400 Mg Tab 400 MG PO Q6H PRN for Pain, TAB Ipratropium-Albuterol (Combivent Respimat) 1 Aer Aer 1 PUFFS INH QID for SOB/Wheezing, INH Meloxicam (Mobic) 15 Mg Tab 15 MG PO DAILY, TAB Metformin Hcl (Glucophage) 1,000 Mg Tab 1000 MG PO BIDM, #60 Omeprazole (Prilosec) 20 Mg Capcr 20 MG PO QAM, CAP Oxygen (Oxygen) Gas 2 LITER NA CONTINOUS Tiotropium Westhoff (Spiriva Handihaler) 30 Puff/540 Mcg Aerp 1 CAP INH HS, CAP 3 Refills Trazodone Hcl (Trazodone) 50 Mg Tab 50 MG PO HS PRN for Pain, TAB Venlafaxine Hcl (Venlafaxine Extended Rel) 75 Mg Cap 75 MG PO DAILY, CAP Discharge Exam Review of Systems: Constitutional: No chills, No fatigue, No fever, No sweats, No weakness Respiratory: + cough, + shortness of breath, No hemoptysis, No sputum Cardiovascular: No chest pain, No edema, No palpitations Abdomen: No constipation, No diarrhea, No nausea, No pain, No vomiting Musculoskeletal: + joint pain, + muscle pain, No calf pain, No swelling Genitourinary - Female: No dysuria, No hematuria Neurologic: No numbness/tingling, No weakness Psychiatric: + anxiety, + depression symptoms Hematologic / Lymphatic: No abnormal bleeding/bruising Integumentary: No itch, No new/changing skin lesions, No rash Physical Exam: General Appearance: no apparent distress, + obese Eyes: normal inspection, PERRL ENT: hearing grossly normal Neck: supple Respiratory/Chest: no respiratory distress, no accessory muscle use, + decreased breath sounds (throughout ), + wheezing (throughout all lung monsivais ) Cardiovascular: regular rate, rhythm, no edema, normal peripheral pulses Abdomen / GI: normal bowel sounds, non tender, soft Extremities: no calf tenderness, no pedal edema Neurologic/Psychiatric: alert, oriented x 3 Skin: normal color, warm/dry, no rash (Ashly Casey, PA-C) Hospital Course 66 y/o F w/Hx advanced COPD who continues to smoke a pack of cigarettes daily - presents with progressive SOB x 2 days. Pt was recently treated for a COPD exacerbation receiving outpt Levaquin and prednisone but has worsened regardless. Describes a worsening productive cough, SOB and R rib pain when coughing. Did not now if she had a fever. She had an abnormal CT chest with a 15mm nodule and progressive lymphadenopathy during a recent hospital stay - states she is seeing someone for this but could not recall who. SOB - COPD exacerbation / bronchitis: - Admit med/surg - CXR: Cardiomegaly and emphysema with no acute cardiopulmonary abnormality - CT: Emphysema. There is no airspace consolidation typical for pneumonia or pleural effusion. There is evidence of remote granulomas infection. Hepatic steatosis. The right apical nodular density identified on 11/28/2016 has significantly decreased in size/density and was likely related to atelectasis/ inflammation. -- Follows with pulmonary, Dr. Jenkins- Arranging PET/CT scan and nodule biopsy - IV Solu Medrol 60 mg q6 hrs (started 1/18), jesenia to oral as patient's status improves -- Decreased to q12 hrs on 12/12 - DuoNebs, continue inhalers - Empirically started on IV Azithromycin and Unasyn x 1 dose due to elevated lactic acid and failed outpatient treatment. -- No evidence of acute infection on radiology. d/c - 02 protocol- wears 2L O2 at home - Hydrated with IV NSS @ 125 ml/hr x2 bags Patient is leaving AMA. She was informed that she is being treated with IV steroids, something we cannot treat her with at home. Prescription for Prednisone jesenia x2 weeks. Had nursing staff walk patient with O2 2L. Before beginning, patient had O2 saturation of 86/87%. After completion of walk around hallway, O2 saturation remained the same. Patient was informed that she is requiring 3L of O2- she states this can be done at home as she is able to adjust her oxygen tank. Patient verbalized that she understands she cannot receive the same treatment options that we are providing for her here at hospital. She is still choosing to leave AMA. Sinusitis: - Start Augmentin 875 mg PO BID x10 days (started on 12/11) Prescription for Augmentin 875 mg PO BID x9 more days. HTN: - Continue Prinzide 1 tab PO QAM - Continue Coreg 25 mg PO BID - Continue Plendil 10 mg PO QAM Continue home medications HPL: - Continue Lipitor 40 mg PO QAM Continue home medication DM: - Held Metformin 1,000 mg PO BID and Glimepiride 4 mg PO QAM - Hyperglycemia, secondary to IV steroids- start Lantus 20 units SC QAM, titrate as needed. - BSG ACHS - Sliding insulin scale Patient was informed that her sugar levels have been very high due to IV steroid treatment and is requiring insulin injections currently. She understood that she does not have insulin injections at home and is still choosing to leave AMA. Rib pain: - She had sustained 6 rib Fx 6 months prior due to trauma on R- No evidence of acute fractures on CT of chest - Raleigh 1 tab PO q6 hrs PRN and continue Motrin - IV Toradol 30 mg x1 dose Continue home medications as prescribed Chronic arthritic pain/left knee pain: - IV Morphine 2 mg q3 hrs PRN - Patient was receiving Tramadol from PCP but was recently cutoff from pain medication. Very discouraged with outpatient pain management treatment. -- History of opiate misuse per Dr. Sifuentes office. Gave patient Tramadol 50 mg PO q6 hrs PRN for pain x3 days Anxiety/Depression: - Continue Effexor 75 mg PO QAM -- Increased to 150 mg PO daily (12/11) - Patient states she feels that she is ready to . Stating, "you just know when it's your time." Denies any suicidal ideations. States she spoke to psychiatry in the past, with no help. Instructed on increased dosage of Effexor 150 mg PO daily Tobacco abuse: - Smoking cessation Encouraged to stop smoking GI Prophylaxis: - Pantoprazole 40 mg - Maalox PRN - IV Zofran PRN - Colace and/or Milk of Mag PRN DVT prophylaxis: - Lovenox 40 mg SQ q24 hrs - CORA and SCDs Code Status: - LEVEL I, FULL Dispo: - Leaving AMA to home - Lives at home. Daughter is a nurse from [place] who is currently visiting. Total Time Spent: Greater than 30 minutes This includes examination of the patient, discharge planning, medication reconciliation, and communication with other providers. (Ashly Casey ., PA-C) Attending Attestation: Pt seen/examined, chart reviewed, and care plan d/w [place] Casey on day of discharge. I agree with the whit[place] components of her discharge summary. 66yo female with chronic respiratory failure 2nd to severe COPD as well as ongoing tobacco abuse who presented with COPD exacerbation. She had been sick for several weeks with sinus symptoms, cough, congestion, and worsening sob/rosario. She was placed on IV steroids, oral antibiotics, nebs, and given additional supportive care. Within 24 hours of admission the patient was already asking for hospital discharge despite requiring more oxygen than her typical baseline. Additionally she had uncontrolled T2DM due to the IV steroids. She was agreeable to an additional 24 hours of treatment, but on 12/12/16 she ultimately demanded to be discharged home. We advised against such as we felt her COPD exacerbation was not optimally treated as well as her significant hyperglycemia. We counseled her on the high risk of readmission and ongoing morbidity. Despite such she refused to stay, and on 12/12/16 she left the hospital against medical advice (AMA). AMA papers were signed by the patient prior to her departure. She was sent home on a slow prednisone taper and augmentin, and advised to f/u in 24 hours with her PCP. During her brief stay it was apparent the patient has been battling depression. For that reason we increased her effexor to 150mg once daily. She refused psychiatric consultation while here. She denied suicidal ideation during her 48 hour stay. Discharge exam - gen - obese, NAD, depressed mouth - MMM, no thrush neck - no JVD heart - RRR, s1, s2 lungs - end-exp wheezing, decreased BS bases, no rales abd - obese, soft, NT, ND, BS+ ext - no edema, pulses 2+ b/l chest - tender to palpation over the right lower anterior chest wall (chronic) psych - restricted affect Anibal Garza MD Total Time Spent: Greater than 30 minutes (Anibal Garza MD) Discharge Instructions Please refer to the electronic Patient Visit Report (Discharge Instructions) for additional information. (Ashly Casey ., PA-C) Follow-Up Follow-up with PCP within 24 hours of leaving hospital Please follow-up/keep all of your subspecialty appointments. (Ashly Casey ., PA-C) Additional Copies To [facility]TE
[2016-12-12 13:11] VITALS: BP 128/67; PULSE 74; TEMP 36.8; O2SAT 91
[2016-12-12 18:56] VITALS: Ht 160 cm; Wt 84.0 kg
[2016-12-12] MEDS ORDERED: INSULIN GLARGINE SOLOSTAR 100 UNITS/ML 3 ML PEN SC SCH (20:00)
== END 2016-12-12 13:48 | disposition left against medical advice (07) | DRG 191 ==
LOC: ENRESERVTM → ENRESERVDT → EDUNIT# 17:59 → C.EDB 18:02 → C.MS4W 20:29
PROVIDERS: ADMIT Internal Medicine; ATTEND Internal Medicine
DX: J44.1 Chronic obstructive pulmonary disease with (acute) exacerbation (principal); J96.10 Chronic respiratory failure, unspecified whether with hypoxia or hypercapnia; J44.0 Chronic obstructive pulmonary disease with (acute) lower respiratory infection; I71.4 Abdominal aortic aneurysm, without rupture; F17.210 Nicotine dependence, cigarettes, uncomplicated; F41.9 Anxiety disorder, unspecified; F32.9 Major depressive disorder, single episode, unspecified; M19.90 Unspecified osteoarthritis, unspecified site; E78.5 Hyperlipidemia, unspecified; K58.9 Irritable bowel syndrome, unspecified; E55.9 Vitamin D deficiency, unspecified; Z88.8 Allergy status to other drugs, medicaments and biological substances; Z79.82 Long term (current) use of aspirin; Z79.899 Other long term (current) drug therapy; Z79.84 Long term (current) use of oral hypoglycemic drugs; Z99.81 Dependence on supplemental oxygen; R07.81 Pleurodynia; E66.9 Obesity, unspecified; Z68.32 Body mass index [BMI] 32.0-32.9, adult; J40 Bronchitis, not specified as acute or chronic; J32.9 Chronic sinusitis, unspecified; E11.65 Type 2 diabetes mellitus with hyperglycemia; G89.4 Chronic pain syndrome; T38.0X5A Adverse effect of glucocorticoids and synthetic analogues, initial encounter; Z87.11 Personal history of peptic ulcer disease; G57.32 Lesion of lateral popliteal nerve, left lower limb; Z90.710 Acquired absence of both cervix and uterus; Z90.49 Acquired absence of other specified parts of digestive tract; Z90.722 Acquired absence of ovaries, bilateral; Z80.8 Family history of malignant neoplasm of other organs or systems; Z83.3 Family history of diabetes mellitus; Z82.49 Family history of ischemic heart disease and other diseases of the circulatory system; Z80.3 Family history of malignant neoplasm of breast; Z80.1 Family history of malignant neoplasm of trachea, bronchus and lung

== ENCOUNTER → 2017-01-07 | Outpatient (CLI) | payer OTHER ==
[~2017-01-07] MED LIST changes: +AMOX1TAB43 PO; +SPRIN/30 INH; -TIOTCAP INH
[2017-01-07 11:21] LABS: HEMATOCRIT 41.3 % (37-47); MEAN CORPUSCULAR HEMOGLOBIN 27.3 pg (25-34); MEAN CORPUSCULAR HGB CONC 31.7 g/dl (32-36); MEAN PLATELET VOLUME 9.9 fL (7.4-10.4); PLATELET COUNT 451 K/uL (130-400); WHITE BLOOD COUNT 7.62 K/uL (4.8-10.8)
[2017-01-07 11:33] LABS: ALT/SGPT 26 U/L (12-78); AST/SGOT 12 U/L (15-37); BLOOD UREA NITROGEN 12 mg/dl (7-18); BUN/CREATININE RATIO 13.8 (10-20); CALCIUM 8.9 mg/dl (8.5-10.1); CARBON DIOXIDE 28 mmol/L (21-32); CHLORIDE 106 mmol/L (98-107); CREATININE 0.86 mg/dl (0.60-1.20); GLUCOSE 205 mg/dl (70-99); POTASSIUM 4.1 mmol/L (3.5-5.1); SODIUM 143 mmol/L (136-145)
[2017-01-07 11:41] LABS: ALB/GLOB RATIO 1.1 (0.9-2); ALKALINE PHOSPHATASE 169 U/L (45-117); CHOLESTEROL 198 mg/dl (0-200); CHOLESTEROL/HDL RATIO 4.7; HDL CHOLESTEROL 42 mg/dl; LDL CHOLESTEROL CALCULATED 115 mg/dl; TRIGLYCERIDES 206 mg/dl (0-150); VERY LOW DENSITY LIPOPROT CALC 41 mg/dl
[2017-01-07 13:01] LABS: ESTIMATED AVERAGE GLUCOSE 235 mg/dl; HA1C FLAG Normal (Normal)
--- NOTE | 2017-01-17 08:42 | CODING QUERY MEDICAL NECESSITY ---
SUPPORTING DIAGNOSIS NEEDED A supporting diagnosis is required for the test/procedure performed on this patient in order for us to be reimbursed by the patient's insurance. Please provide a supporting diagnosis for the following test/procedure listed below next to the test name along with your signature. *If there is no additional diagnosis for this patient that would support the following test/procedure please document that below next to the test/procedure. Test(s)/Procedure(s) that require a supporting diagnosis: * VITAMIN D 25-HYDROXY DIAGNOSIS: * DOS: 01/07/17 Provider Signature: Date: Thank you Valerie Malcolm Health Information Management Once completed, please kindly fax back to [phone] For questions please call [phone]
== END | disposition home or self-care (01) ==
LOC: C.LABSPEC 11:02
PROVIDERS: ATTEND Nurse Practitioner Family
DX: E11.9 Type 2 diabetes mellitus without complications (principal); I10 Essential (primary) hypertension; M17.9 Osteoarthritis of knee, unspecified; E55.9 Vitamin D deficiency, unspecified

== ENCOUNTER → 2017-01-17 | Outpatient (CLI) | payer OTHER ==
--- NOTE | 2017-01-17 15:31 | DIAGNOSTIC IMAGING REPORT ---
ARTERIAL DOPPLER ULTRASOUND OF THE LEFT LOWER EXTREMITY CLINICAL HISTORY: Left leg pain. COMPARISON STUDY: No previous studies for comparison. FINDINGS: Brachial arm systolic pressures are 106 9 mmHg in the right and 173 mmHg on the left. Posterior tibial pressures are 1 71 mmHg on the right and 150 mmHg on the left. Dorsalis pedis pressures are 174 mmHg on the right and 163 mmHg on the left. This monsivais ankle arm indices of 1.0 on the right and 0.9 for the left. There is triphasic flow within the left common femoral superficial femoral and popliteal arteries. There is triphasic flow within the anterior tibial and peroneal arteries. There is biphasic flow within the left posterior tibial artery. No high velocity jets were visualized. IMPRESSION: No ultrasonographic evidence of left lower extremity arterial stenosis. Electronically signed by: Moses Godinez M.D. 01/17/2017 3:29 PM Dictated Date/Time: 01/17/2017 3:28 PM
== END | disposition home or self-care (01) ==
LOC: C.ULTR 14:03
PROVIDERS: ATTEND Orthopaedic Surgery Sports Medicine
DX: M79.605 Pain in left leg (principal)

== ENCOUNTER 2020-08-28 20:01 | Inpatient (IN) ==
--- OUTSIDE RECORDS SUMMARY | 2020-08-28 20:05 | External Medical Summary | Continuity of Care Document ---
:1950 Author Name Michael Ballard Address Unavailable Unavailable , Care Team Providers Name Role Phone Bert QUEEN Unavailable [email or web address] Unavailable [email or web address] PCP, UNKNOWN Unavailable Unavailable Unavailable Unavailable Unavailable Problems COPD, moderate (496) (J44.9) Depressive disorder (311) (F32.9) Shortness of breath (786.05) (R06.02) Vitamin D deficiency (268.9) (E55.9) History of peptic ulcer (V12.71) (Z87.11) Overweight (278.02) (E66.3) Left peroneal nerve palsy (355.3) (G57.32) History of anxiety state (V49.89) (Z91.89) AAA (abdominal aortic aneurysm) (441.4) (I71.4) Hand pain (729.5) (M79.643) Wrist pain (719.43) (M25.539) Osteoarthritis of right hip (715.95) (M16.11) Chronic low back pain (724.2) (M54.5) Right rib fracture (807.00) (S22.31XA) Opiate misuse (305.50) (F11.90) Recurrent kidney stones (592.0) (N20.0) Neoplasm of uncertain behavior (238.9) (D48.9) Hypothyroidism (244.9) (E03.9) Asthma (493.90) (J45.909) Upper back pain (724.5) (M54.9) Diabetes mellitus, controlled (250.00) (E11.9) Chest pain (786.50) (R07.9) Constipation (564.00) (K59.00) Hyperlipidemia (272.4) (E78.5) Essential hypertension (401.9) (I10) Adrenal nodule (255.8) (E27.8) Mediastinal adenopathy (785.6) (R59.0) Pulmonary nodule (793.11) (R91.1) Allergies and Adverse Reactions predniSONE (Allergy) Medications Aspirin 81 MG TABS; TAKE 1 TABLET DAILY. BRET Noel Start: 02-Oct-2015 Quantity: 1 Refills: 5 Lisinopril-hydroCHLOROthiazide 20-25 MG Oral Tablet; T LEE 1 TABLET ONCE DAILY. BRET Noelecca Start: 02-Oct-2015 Quantity: 90 Refills: 3 metFORMIN HCl - 1000 MG Oral Tablet; TAKE 1 TABLET TWI CE DAILY. BRET Noel Renetta Start: 02-Oct-2015 Quantity: 180 Refills: 3 Atorvastatin Calcium 40 MG Oral Tablet; TAKE 1 TABLET DAILY AT BEDTIME. BRET Noelecca Start: 02-Oct-2015 Quantity: 30 Refills: 2 Advair Diskus 500-50 MCG/DOSE Inhalation Aerosol Powder Breath Activated; INHALE 1 PUFF TWICE DAILY. BRET Noel Start: 02-Oct-2015 Quantity: 1 60 Aerosol Powder Br eath Activated Disp Pack Refills: 11 Carvedilol 25 MG Oral Tablet; TAKE 1 TABLET TWICE DAILY. BRET Robertsonca Start: 02-Oct-2015 Quantity: 180 Refills: 3 Felodipine ER 10 MG Oral Tablet Extended Release 24 Hour; TAKE 1 TABLET ONCE DAILY. BRET Noel Renetta Start: 02-Oct-2015 Refills: 0 Glimepiride 4 MG Oral Tablet; TAKE 1 TABLET DAILY D IRECTED. BRET Noel Start: 02-Oct-2015 Refills: 0 Albuterol Sulfate (2.5 MG/3ML) 0.083% In halation Nebulization Solution; USE 1 UNIT DOSE IN NEBULIZER EVERY 4 HOURS NEEDED. MAIDA Shelby Start: 05-Dec-2016 Quantity: 1 3 ML Plas Cont (60 P las Conts) Refills: 3 Budesonide 0.5 MG/2ML Inhalation Suspens ion; USE 1 UNIT DOSE VIA NEBULIZER TWO TIMES A DAY MAIDA Shelby Start: 05-Dec-2016 Quantity: 1 2 ML Plas Cont (30 P las Conts) Refills: 2 Benzonatate 100 MG Oral Capsule; TAKE 1 CAPSULE 3 TIME S DAILY NEEDED. MAIDA Shelby Start: 05-Dec-2016 Quantity: 10 Refills: 3 ProAir HFA 108 (90 Base) MCG/ACT Inhalat ion Aerosol Solution; INHALE 2 PUFFS EVERY 4 HOURS NEEDED 8.5 GM Inhaler Quantity: 1 Refills: 5 Venlafaxine HCl ER 75 MG Oral Tablet Extended Release 24 Hour; take 1 tab daily Refills: 0 Spiriva HandiHaler 18 MCG Inhalation Cap karan; INHALE CONTENTS OF CAPSULE ONCE DAY Refills: 0 Phenazopyridine HCl - 200 MG Oral Tablet ; TAKE 1 TABLET 3 TIMES DAILY NEEDED FOR PAIN. Refills: 0 Oxygen; 2 LPM Continuous Refills: 0 Omeprazole 20 MG Oral Capsule Delayed Release; TAKE 1 CAPSUL E BY MOUTH DAILY. Quantity: 90 Refills: 3 Mobic TABS; TAKE 1 TABLET DAILY NEEDED. Refills: 0 Combivent Respimat 20-100 MCG/ACT Inhala tion Aerosol Solution; INHALE 1 PUFF 4 TIMES DAILY 4 GM Inhaler Quantity: 1 Refills: 5 Flonase 50 MCG/ACT SUSP; USE 2 SPRAYS IN EACH NOSTRIL DAILY Refills: 0 Procedures History of Cholecystectomy Status: Compl eted History of Total Abdominal Hysterectomy Status: Completed History of Appendectomy Status: Complete d Immunizations Influenza On: 24-Aug-2015 Family History Father Family history of Bone cancer (170.9) (C41.9) Status: Active Family history of diabetes mellitus (V18.0) (Z83.3) Status: Active Family history of myocardial infarction (V17.3) (Z82.49) Sta tus: Active Family history of malignant neoplasm of larynx (V16.2) (Z80. 2) Status: Active Mother Family history of malignant neoplasm of breast (V16.3) (Z80. 3) Status: Active Family history of lung cancer (V16.1) (Z80.1) Status: Active Social History - Smoking Status Smokes tobacco daily Plan of Treatment Planned Observations Planned Goals not documented Results No Known Results Results not documented
[2020-08-28] MEDS ORDERED: ALBUT/IPRATROP 3MG/0.5MG NEB 3 ML VIAL INH STA (20:28)
[2020-08-28] MEDS ORDERED: ALBUT/IPRATROP 3MG/0.5MG NEB 3 ML VIAL ONE (20:42)
--- NOTE | 2020-08-28 20:48 | Emergency Department Note ---
Impression & Plan COPD exacerbation, Hypoxia, Acute hypercapnic respiratory failure, Breath shortness ED Provider Note NAME: DANIELLA FLANNERY AGE: 70 SEX: F : 1950 ARRIVES VIA: Ambulance INFORMANT: Patient ED PROVIDER(S): Elliot Loja DO CHIEF COMPLAINT: Shortness of breath HPI: Patient is a 70-year-old female with a past medical history of COPD chronically on 3 L nasal cannula presents the ER for shortness of breath which has been getting worse over the past 2 days. She notes she feels as though she cannot get of breath. She denies any headache or change in vision. No chest pain, fevers, nausea vomiting or diarrhea. No loss of taste or smell. No exposure to anyone with COVID. Does have a history of pneumonia. She has been using her albuterol at home. No other exacerbating or remitting factors. ROS: See above HPI for pertinent positives & negatives. A total of 10 systems reviewed and were otherwise negative. PAST MEDICAL HISTORY:See Below PAST SURGICAL HISTORY:See Below FAMILY HISTORY:See Below SOCIAL HISTORY:See Below HOME MEDICATIONS:See Below ALLERGIES:See Below VITALS:See Below PHYSICAL EXAMINATION: GENERAL: Sitting up in bed, alert, chronically ill-appearing, disheveled, falls asleep quickly, attaining no treatment EYE EXAM: normal conjunctiva. PERRL and EOM's grossly intact. OROPHARYNX: no exudate, no erythema, lips, buccal mucosa, and tongue normal and mucous membranes are moist NECK: supple, no nuchal rigidity, no adenopathy, non-tender LUNGS: Wheezing bilaterally. Normal chest wall mechanics HEART: no murmurs, S1 normal and S2 normal ABDOMEN: abdomen soft, non-tender, normo-active bowel sounds, no masses, no rebound or guarding. SKIN: no rashes and no bruising UPPER EXTREMITIES: upper extremities are grossly normal. LOWER EXTREMITIES: No pitting edema. Calves are equal bilateral NEURO EXAM: Sleepy, difficult to arouse, falls asleep mid conversation, cranial nerves II-XII grossly intact, normal speech, no gross weakness of arms, no gross weakness of legs. MEDICAL DECISION MAKING: Patient is a 70-year-old female who presents the ER for shortness of breath. Upon arrival she was found to be slightly hypoxic. Her O2 was increased slightly. IV was established blood work was obtained. Labs show no significant leukocytosis or anemia. INR unremarkable. VBG with pH 7.26 and a CO2 of 63. BMP with a potassium of 5.3. EKG with peaked T waves. Creatinine was appropriate 1.2. Troponin was negative. COVID was negative. Patient was given hour-long neb treatment as well as IV steroids. Chest x-ray did show atelectasis versus pneumonia. Patient remained on BiPAP. Admitted to the hospitalist and given antibiotics. Triage Nursing notes reviewed. Prior medical records reviewed Vital Signs: reviewed and remarkable for hypoxic, tachypneic, tachycardic Differential diagnosis: Differential diagnoses includes but is not limited to pneumonia, bronchitis, COPD/Asthma exacerbation, pneumothorax, pulmonary embolism, congestive heart failure, acute coronary syndrome ER treatment provided: See below Diagnostics interpreted by me: ECG: Sinus rhythm rate 80 Normal axis Peak T waves Normal QTC Cardiac Monitoring: An order was placed for continuous cardiac monitoring. The monitor shows a rate of 75 with sinus rhythm. Laboratory studies: As stated above and show below. Imaging studies: Chest x-ray with bilateral opacities Consultation(s): Discussed with Dr. Danie Lamas for further evaluation ED COURSE: Procedures: none Critical Care: I have personally spent 32 minutes of critical care time in the direct management of this patient. This includes bedside care, interpretation of diagnostic studies, and testing, discussion with consultants, patient, and [facility] members, and other required patient management activities. This 32 minutes is in excess of all separately billable procedures. 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 Beliefs That Will Affect Care: None Current Living Situation: Spouse Feels Safe at Home: Yes Assistive Devices: Oxygen - Continuous Assistive Devices Comment: 3l atc at home Allergies Allergies Allergy/AdvReac Type Severity Reaction Status Date / Time diflunisal Allergy Unknown HEART RACES Verified 10/26/16 19:17 Home Meds Home Medications Medication Instructions Recorded Confirmed albuterol sulfate 2 puff INHALATION Q6 PRN 08/28/20 08/28/20 aspirin [Aspirin Low Dose] 81 mg PO DAILY 08/28/20 08/28/20 atorvastatin 40 mg PO DAILY 08/28/20 08/28/20 budesonide 0.5 mg INHALATION BID 08/28/20 08/28/20 carvedilol 12.5 mg PO BID 08/28/20 08/28/20 diltiazem HCl [Cartia XT] 120 mg PO DAILY 08/28/20 08/28/20 empagliflozin [Jardiance] 10 mg PO DAILY 08/28/20 08/28/20 ipratropium-albuterol 3 ml INHALATION UD PRN 08/28/20 08/28/20 losartan 50 mg PO DAILY 08/28/20 08/28/20 metformin 1,000 mg PO BID 08/28/20 08/28/20 tramadol 50 mg PO BID PRN 08/28/20 08/28/20 Results & Data (ED) Vital Signs Vital Signs - 24 hr 08/28/20 20:06 08/28/20 20:16 08/28/20 20:19 Temperature 36.9 C Temperature Source Oral Pulse Rate 94 H 93 H 94 H Pulse Rate [Apical] Pulse Rate from SpO2 Sensor 94 H 94 H Respiratory Rate 26 H 30 H 26 H Respiratory Effort / Characteristics Labored Respiratory Depth Normal Respiratory Pattern Regular Blood Pressure 163/76 H 163/76 H Blood Pressure Mean 94 105 Pulse Oximetry 96 87 L 96 Oxygen Delivery Method Nasal Cannula Nasal Cannula Nasal Cannula Oxygen Flow Rate 4 3 4 Fraction of Inspired Oxygen Sepsis Recent Fever Within 48 Hours No Sepsis New/Unexplained Change in Mental Status N/A Sepsis Action Taken by Nursing No Action Required 08/28/20 20:20 08/28/20 20:30 08/28/20 20:31 Temperature Temperature Source Pulse Rate 94 H 94 H 99 H Pulse Rate [Apical] Pulse Rate from SpO2 Sensor 94 H 94 H 99 H Respiratory Rate 25 H 25 H 24 Respiratory Effort / Characteristics Respiratory Depth Respiratory Pattern Blood Pressure 159/78 H Blood Pressure Mean 109 Pulse Oximetry 96 96 97 Oxygen Delivery Method Nasal Cannula Nasal Cannula Nasal Cannula Oxygen Flow Rate 4 4 4 Fraction of Inspired Oxygen Sepsis Recent Fever Within 48 Hours Sepsis New/Unexplained Change in Mental Status Sepsis Action Taken by Nursing 08/28/20 20:36 08/28/20 20:40 08/28/20 20:50 Temperature Temperature Source Pulse Rate 94 H 89 Pulse Rate [Apical] 97 H Pulse Rate from SpO2 Sensor 94 H 90 Respiratory Rate 26 H 27 H 26 H Respiratory Effort / Characteristics Spontaneous Labored Short of Breath Respiratory Depth Respiratory Pattern Blood Pressure Blood Pressure Mean Pulse Oximetry 97 98 98 Oxygen Delivery Method Nasal Cannula Nasal Cannula Nasal Cannula Oxygen Flow Rate 4 4 4 Fraction of Inspired Oxygen Sepsis Recent Fever Within 48 Hours Sepsis New/Unexplained Change in Mental Status Sepsis Action Taken by Nursing 08/28/20 21:00 08/28/20 21:01 08/28/20 21:10 Temperature Temperature Source Pulse Rate 95 H 93 H 90 Pulse Rate [Apical] Pulse Rate from SpO2 Sensor 94 H 92 H 91 H Respiratory Rate 29 H 29 H 29 H Respiratory Effort / Characteristics Respiratory Depth Respiratory Pattern Blood Pressure 118/86 Blood Pressure Mean 98 Pulse Oximetry 96 95 93 Oxygen Delivery Method Nasal Cannula Nasal Cannula Nasal Cannula Oxygen Flow Rate 4 4 4 Fraction of Inspired Oxygen Sepsis Recent Fever Within 48 Hours Sepsis New/Unexplained Change in Mental Status Sepsis Action Taken by Nursing 08/28/20 21:20 08/28/20 21:30 08/28/20 21:31 Temperature Temperature Source Pulse Rate 94 H 88 87 Pulse Rate [Apical] 87 Pulse Rate from SpO2 Sensor 93 H 88 88 Respiratory Rate 24 24 25 H Respiratory Effort / Characteristics Non-Labored Spontaneous Respiratory Depth Respiratory Pattern Blood Pressure 119/91 Blood Pressure Mean 110 Pulse Oximetry 93 96 96 Oxygen Delivery Method Nasal Cannula Nasal Cannula Nasal Cannula Oxygen Flow Rate 4 4 4 Fraction of Inspired Oxygen Sepsis Recent Fever Within 48 Hours Sepsis New/Unexplained Change in Mental Status Sepsis Action Taken by Nursing 08/28/20 21:40 08/28/20 21:50 08/28/20 22:00 Temperature Temperature Source Pulse Rate 181 H 93 H 94 H Pulse Rate [Apical] Pulse Rate from SpO2 Sensor 90 93 H 94 H Respiratory Rate 25 H 25 H 26 H Respiratory Effort / Characteristics Respiratory Depth Respiratory Pattern Blood Pressure 145/74 H Blood Pressure Mean 92 Pulse Oximetry 96 96 98 Oxygen Delivery Method Nasal Cannula Nebulizer Nebulizer Oxygen Flow Rate 4 Fraction of Inspired Oxygen Sepsis Recent Fever Within 48 Hours Sepsis New/Unexplained Change in Mental Status Sepsis Action Taken by Nursing 08/28/20 22:10 08/28/20 22:20 08/28/20 22:30 Temperature Temperature Source Pulse Rate 166 H 161 H 160 H Pulse Rate [Apical] Pulse Rate from SpO2 Sensor 98 H 94 H 101 H Respiratory Rate 28 H 26 H 30 H Respiratory Effort / Characteristics Respiratory Depth Respiratory Pattern Blood Pressure 134/63 Blood Pressure Mean 78 Pulse Oximetry 99 98 98 Oxygen Delivery Method Nebulizer Nasal Cannula Nasal Cannula Oxygen Flow Rate 4 4 Fraction of Inspired Oxygen Sepsis Recent Fever Within 48 Hours Sepsis New/Unexplained Change in Mental Status Sepsis Action Taken by Nursing 08/28/20 22:31 08/28/20 23:00 08/28/20 23:12 Temperature Temperature Source Pulse Rate 171 H 186 H 164 H Pulse Rate [Apical] Pulse Rate from SpO2 Sensor 96 H 94 H Respiratory Rate 28 H 20 26 H Respiratory Effort / Characteristics Non-Labored Spontaneous Respiratory Depth Shallow Respiratory Pattern Regular Blood Pressure 113/66 Blood Pressure Mean 78 Pulse Oximetry 98 97 90 Oxygen Delivery Method Nasal Cannula Oxygen Flow Rate 4 Fraction of Inspired Oxygen 50 Sepsis Recent Fever Within 48 Hours Sepsis New/Unexplained Change in Mental Status Sepsis Action Taken by Nursing 08/28/20 23:30 Temperature Temperature Source Pulse Rate 86 Pulse Rate [Apical] Pulse Rate from SpO2 Sensor 87 Respiratory Rate 32 H Respiratory Effort / Characteristics Respiratory Depth Respiratory Pattern Blood Pressure 144/70 H Blood Pressure Mean 81 Pulse Oximetry 94 Oxygen Delivery Method Oxygen Flow Rate Fraction of Inspired Oxygen Sepsis Recent Fever Within 48 Hours Sepsis New/Unexplained Change in Mental Status Sepsis Action Taken by Nursing Laboratory Data Result diagrams: 08/28/20 20:15 08/28/20 20:15 Lab Results 08/28/20 08/28/20 08/28/20 Range/Units 20:15 20:15 20:15 WBC 10.34 (4.8-10.8) K/uL RBC 4.56 (4.2-5.4) M/uL Hgb 12.2 (12.0-16.0) g/dL Hct 40.5 (37-47) % MCV 88.8 (80-100) fL MCH 26.8 (25-34) pg MCHC 30.1 L (32-36) g/dL RDW Std Deviation 57.0 H (36.4-46.3) fL RDW Coeff of Dorcas 17.5 H (11.5-14.5) % Plt Count 433 H (130-400) K/uL MPV 10.2 (7.4-10.4) fL Immature Gran % (Auto) 0.5 % Neut % (Auto) 77.5 % Lymph % (Auto) 12.2 % [place] % (Auto) 7.9 % Eos % (Auto) 1.6 % Baso % (Auto) 0.3 % Neut # (Auto) 8.01 H (1.4-6.5) K/uL Lymph # (Auto) 1.26 (1.2-3.4) K/uL [place] # (Auto) 0.82 H (0.11-0.59) K/uL Eos # (Auto) 0.17 (0-0.5) K/uL Baso # (Auto) 0.03 (0-0.2) K/uL Immature Gran # (Auto) 0.05 H (0.00-0.02) K/uL PT 10.8 (9.0-12.0) Seconds INR 1.0 (0.9-1.1) APTT 27.8 (21.0-31.0) Seconds PTT Ratio 1.0 ABG pH (7.35-7.45) ABG pCO2 (35-46) mmHg ABG pO2 (80-95) mmHg ABG HCO3 (19-24) mmol/L ABG O2 Saturation (90-95) % ABG Base Excess (-9-1.8) mEq/L Presley Test (Pos) VBG pH (7.36-7.41) VBG pCO2 (38-50) mmHg VBG pO2 mmHg VBG HCO3 mmol/L VBG O2 Saturation % VBG Base Excess mEq/L Barometric Pressure mm/Hg Oxygen Given Sodium 136 (136-145) mmol/L Potassium 5.3 H (3.5-5.1) mmol/L Chloride 104 (98-107) mmol/L Carbon Dioxide 28 (21-32) mmol/L Anion Gap 4.0 (3-11) BUN 33 H (7-18) mg/dl Creatinine 1.20 (0.6-1.2) mg/dl Est Cr Clr Drug Dosing 44.5 ml/min Est GFR ( Amer) 53.8 Est GFR (Non-Af Amer) 46.4 BUN/Creatinine Ratio 27.7 H (10-20) Glucose 163 H (70-99) mg/dl Calcium 9.1 (8.5-10.1) mg/dl Total Bilirubin 0.3 (0.2-1) mg/dl AST 20 (15-37) U/L ALT 18 (12-78) U/L Alkaline Phosphatase 109 (45-117) U/L Troponin I < 0.015 (0-0.045) ng/ml Total Protein 7.4 (6.4-8.2) gm/dl Albumin 3.5 (3.4-5.0) gm/dl Globulin 3.9 (2.5-4.0) gm/dl Albumin/Globulin Ratio 0.9 (0.9-2) COVID-19 Eval Order COVID-19 PCR (Negative) 08/28/20 08/28/20 08/28/20 Range/Units 21:02 21:53 21:53 WBC (4.8-10.8) K/uL RBC (4.2-5.4) M/uL Hgb (12.0-16.0) g/dL Hct (37-47) % MCV (80-100) fL MCH (25-34) pg MCHC (32-36) g/dL RDW Std Deviation (36.4-46.3) fL RDW Coeff of Dorcas (11.5-14.5) % Plt Count (130-400) K/uL MPV (7.4-10.4) fL Immature Gran % (Auto) % Neut % (Auto) % Lymph % (Auto) % [place] % (Auto) % Eos % (Auto) % Baso % (Auto) % Neut # (Auto) (1.4-6.5) K/uL Lymph # (Auto) (1.2-3.4) K/uL [place] # (Auto) (0.11-0.59) K/uL Eos # (Auto) (0-0.5) K/uL Baso # (Auto) (0-0.2) K/uL Immature Gran # (Auto) (0.00-0.02) K/uL PT (9.0-12.0) Seconds INR (0.9-1.1) APTT (21.0-31.0) Seconds PTT Ratio ABG pH (7.35-7.45) ABG pCO2 (35-46) mmHg ABG pO2 (80-95) mmHg ABG HCO3 (19-24) mmol/L ABG O2 Saturation (90-95) % ABG Base Excess (-9-1.8) mEq/L Prelsey Test (Pos) VBG pH 7.27 L (7.36-7.41) VBG pCO2 63 H (38-50) mmHg VBG pO2 60 mmHg VBG HCO3 29 mmol/L VBG O2 Saturation 86.4 % VBG Base Excess 0.5 mEq/L Barometric Pressure 736.5 mm/Hg Oxygen Given Sodium (136-145) mmol/L Potassium (3.5-5.1) mmol/L Chloride (98-107) mmol/L Carbon Dioxide (21-32) mmol/L Anion Gap (3-11) BUN (7-18) mg/dl Creatinine (0.6-1.2) mg/dl Est Cr Clr Drug Dosing ml/min Est GFR ( Amer) Est GFR (Non-Af Amer) BUN/Creatinine Ratio (10-20) Glucose (70-99) mg/dl Calcium (8.5-10.1) mg/dl Total Bilirubin (0.2-1) mg/dl AST (15-37) U/L ALT (12-78) U/L Alkaline Phosphatase (45-117) U/L Troponin I (0-0.045) ng/ml Total Protein (6.4-8.2) gm/dl Albumin (3.4-5.0) gm/dl Globulin (2.5-4.0) gm/dl Albumin/Globulin Ratio (0.9-2) COVID-19 Eval Order Covid19 Done at [facility] COVID-19 PCR NEGATIVE (Negative) 08/28/20 Range/Units 23:23 WBC (4.8-10.8) K/uL RBC (4.2-5.4) M/uL Hgb (12.0-16.0) g/dL Hct (37-47) % MCV (80-100) fL MCH (25-34) pg MCHC (32-36) g/dL RDW Std Deviation (36.4-46.3) fL RDW Coeff of Dorcas (11.5-14.5) % Plt Count (130-400) K/uL MPV (7.4-10.4) fL Immature Gran % (Auto) % Neut % (Auto) % Lymph % (Auto) % [place] % (Auto) % Eos % (Auto) % Baso % (Auto) % Neut # (Auto) (1.4-6.5) K/uL Lymph # (Auto) (1.2-3.4) K/uL [place] # (Auto) (0.11-0.59) K/uL Eos # (Auto) (0-0.5) K/uL Baso # (Auto) (0-0.2) K/uL Immature Gran # (Auto) (0.00-0.02) K/uL PT (9.0-12.0) Seconds INR (0.9-1.1) APTT (21.0-31.0) Seconds PTT Ratio ABG pH 7.29 L (7.35-7.45) ABG pCO2 58 H (35-46) mmHg ABG pO2 78 L (80-95) mmHg ABG HCO3 27 H (19-24) mmol/L ABG O2 Saturation 94.2 (90-95) % ABG Base Excess -0.2 (-9-1.8) mEq/L Presley Test Pos (Pos) VBG pH (7.36-7.41) VBG pCO2 (38-50) mmHg VBG pO2 mmHg VBG HCO3 mmol/L VBG O2 Saturation % VBG Base Excess mEq/L Barometric Pressure mm/Hg Oxygen Given 50% FIO2 Sodium (136-145) mmol/L Potassium (3.5-5.1) mmol/L Chloride (98-107) mmol/L Carbon Dioxide (21-32) mmol/L Anion Gap (3-11) BUN (7-18) mg/dl Creatinine (0.6-1.2) mg/dl Est Cr Clr Drug Dosing ml/min Est GFR ( Amer) Est GFR (Non-Af Amer) BUN/Creatinine Ratio (10-20) Glucose (70-99) mg/dl Calcium (8.5-10.1) mg/dl Total Bilirubin (0.2-1) mg/dl AST (15-37) U/L ALT (12-78) U/L Alkaline Phosphatase (45-117) U/L Troponin I (0-0.045) ng/ml Total Protein (6.4-8.2) gm/dl Albumin (3.4-5.0) gm/dl Globulin (2.5-4.0) gm/dl Albumin/Globulin Ratio (0.9-2) COVID-19 Eval Order COVID-19 PCR (Negative) Administered Medications Discontinued Medications Albuterol (Albut/Ipratrop 3mg/0.5mg Neb 3 Ml Vial) 3 ml INH NOW STA Stop: 08/28/20 20:29 Last Admin: 08/28/20 20:32 Dose: 3 ml Documented by: [id number] Albuterol (Albut/Ipratrop 3mg/0.5mg Neb 3 Ml Vial) Confirm Administered Dose 12 ml .ROUTE .STK-MED ONE Stop: 08/28/20 20:43 Last Admin: 08/28/20 23:15 Dose: 12 ml Documented by: [id number] Methylprednisolone (Methylprednisolone 125 Mg/2 Ml Vial) 60 mg IV NOW STA Stop: 08/28/20 21:11 Last Admin: 08/28/20 21:54 Dose: 60 mg Documented by: [id number] Discharge Plan Visit Data Chief Complaint: Shortness of Breath/Dyspnea ED Provider: Elliot Loja Discharge Problem: COPD exacerbation, Hypoxia, Acute hypercapnic respiratory failure, Breath ry rtness Patient Disposition: Admitted As Inpatient Discharge Instructions Interventions: ED Discharge Assessment Last Done: 08/29/20 00:10
[2020-08-28 20:54] LABS: Alanine Aminotransferase 18 U/L (12-78); Albumin Level 3.5 gm/dl (3.4-5.0); Aspartate Aminotransferase 20 U/L (15-37); BUN Creatinine Ratio 27.7 (10-20); Basophils # (auto) 0.03 K/uL (0-0.2); Basophils % (auto) 0.3 %; Blood Urea Nitrogen 33 mg/dl (7-18); Calcium 9.1 mg/dl (8.5-10.1); Carbon Dioxide 28 mmol/L (21-32); Chloride 104 mmol/L (98-107); Creatinine Clr Calc Pharmacy 44.5 ml/min; Eosinophils # (auto) 0.17 K/uL (0-0.5); Eosinophils % (auto) 1.6 %; Est GFR (African American) 53.8; Est GFR (Non-African American) 46.4; Glucose 163 mg/dl (70-99); Hematocrit (blood only) 40.5 % (37-47); Hemoglobin 12.2 g/dL (12.0-16.0); Immature Granulocytes # (auto) 0.05 K/uL (0.00-0.02); Immature Granulocytes % (auto) 0.5 %; Lymphocytes # (auto) 1.26 K/uL (1.2-3.4); Lymphocytes % (auto) 12.2 %; Mean Corpuscular Hemoglobin 26.8 pg (25-34); Mean Corpuscular Hgb Conc 30.1 g/dL (32-36); Mean Corpuscular Volume 88.8 fL (80-100); Mean Platelet Volume 10.2 fL (7.4-10.4); Monocytes # (auto) 0.82 K/uL (0.11-0.59); Monocytes % (auto) 7.9 %; Neutrophils # (auto) 8.01 K/uL (1.4-6.5); Neutrophils % (auto) 77.5 %; Platelet Count 433 K/uL (130-400); Potassium 5.3 mmol/L (3.5-5.1); RDW Coefficient of Variation 17.5 % (11.5-14.5); Red Blood Count 4.56 M/uL (4.2-5.4); Sodium 136 mmol/L (136-145); White Blood Count 10.34 K/uL (4.8-10.8)
[2020-08-28 20:59] LABS: Albumin Globulin Ratio 0.9 (0.9-2); Alkaline Phosphatase 109 U/L (45-117); Bilirubin,Total 0.3 mg/dl (0.2-1); Globulin 3.9 gm/dl (2.5-4.0); Partial Thromboplastin Time 27.8 Seconds (21.0-31.0); Prothrombin Time 10.8 Seconds (9.0-12.0); Total Protein 7.4 gm/dl (6.4-8.2); Troponin I < 0.015 ng/ml (0-0.045)
[2020-08-28] MEDS ORDERED: methylPREDNISolone 125 MG/2 ML VIAL IV STA (21:10)
[2020-08-28 21:14] LABS: Base Excess VBG 0.5 mEq/L; Oxygen Saturation VBG 86.4 %; pH VBG 7.27 (7.36-7.41)
[2020-08-28 23:38] LABS: Allen Test Pos (Pos); Base Excess ABG -0.2 mEq/L (-9-1.8); HCO3 ABG 27 mmol/L (19-24); Oxygen Saturation ABG 94.2 % (90-95); PCO2 ABG 58 mmHg (35-46); PO2 ABG 78 mmHg (80-95); pH ABG 7.29 (7.35-7.45)
[2020-08-29] MEDS ORDERED: PIPERACILL/TAZOBAC CONSULT ACTIVE PRN (00:53)
[2020-08-29] MEDS ORDERED: ALUMINUM/MAGNESIUM SUSP 30 ML UDC PO PRN (00:53)
[2020-08-29] MEDS ORDERED: MAGNESIUM HYDROXIDE SUSP 30 ML UDC PO PRN (00:53)
[2020-08-29] MEDS ORDERED: ONDANSETRON INJ 2 MG/ML 2 ML VIAL IV PRN (00:53)
[2020-08-29] MEDS ORDERED: PIPERACILLIN/TAZOBACTAM 4.5 GM in DEXTROSE 5% 100 ML IV STA (02:07)
[2020-08-29] MEDS: BUDESONIDE 0.5 MG/2 ML VIAL (PULMICORT) INH SCH ×3 (02:13→19:23)
[2020-08-29] MEDS: carvediloL 12.5 MG TAB PO SCH ×3 (02:47→20:18)
[2020-08-29] MEDS: traMADol HCL 50 MG TABLET PO PRN ×4 (02:53→23:19)
--- NOTE | 2020-08-29 04:06 | History & Physical Report ---
Date of Service August 29, 2020 The patient was seen and examined on August 28, 2020. Assessment & Plan (1) Acute on chronic respiratory failure with hypoxia and hypercapnia: Acute on chronic respiratory failure with hypoxia and hypercapnia/bilateral pneumonia/COPD exacerbation- Admit to monitored bed. Continue BiPAP ABG shortly after placed on BiPAP: pH 7.29, PCO2 58, PO2 78 and O2 saturation 94.2. Repeat ABG in a.m. Place on Solu-Medrol 40 mg IV every 8 hours. Zosyn 4.5 g IV every 8 hours Duonebs every 4 hours while awake and every 2 hours when necessary. Zofran 4 mg IV every 6 hours as needed Present on Admission?: Yes (2) Pneumonia: See above Present on Admission?: Yes (3) COPD exacerbation: See above Present on Admission?: Yes (4) Hyperlipidemia: Hold atorvastatin 40 mg daily until respiratory status improves Present on Admission?: Yes (5) Hypertension: Hold aspirin, carvedilol, diltiazem and losartan due to n.p.o. status. Resume as respiratory status improves Present on Admission?: Yes (6) Diabetes mellitus: Hold metformin, and Jardiance due to n.p.o. status Placed in Accu-Cheks before meals and at bedtime/every 6 hours, with NovoLog coverage per scale Check hemoglobin A1c Present on Admission?: Yes Admission and Anticipated Discharge Date Admission Date: August 28, 2020 History of Present Illness Chief Complaint: The patient presents to the emergency department with a worsening of her chronic shortness of breath and cough over the past 2 days. Primary Care Provider: BRET Bull The patient is a 70-year-old female with a past medical history including chronic low back pain, overweight, AAA, left peroneal nerve palsy, 3 L oxygen dependency COPD, history of pneumonia, osteoarthritis, hyperlipidemia, hypertension, diabetes mellitus. She presents as noted above. She denies any recent travel or sick exposures including to COVID. Patient did undergo COVID-19 testing while in the ED, which was negative. Due to her severe hypoxemia, she was placed on BiPAP relatively early on during her ED stay, with improvement in symptoms. While in the ED, she did receive Solu-Medrol 60 mg IV, a DuoNeb treatment, and BiPAP as noted. Allergies Allergy/AdvReac Type Severity Reaction Status Date / Time diflunisal Allergy Unknown HEART RACES Verified 10/26/16 19:17 Home Medications Home Medications Medication Instructions Recorded Confirmed Type albuterol sulfate 2 puff INHALATION Q6 PRN 08/28/20 08/28/20 History aspirin [Aspirin Low Dose] 81 mg PO DAILY 08/28/20 08/28/20 History atorvastatin 40 mg PO DAILY 08/28/20 08/28/20 History budesonide 0.5 mg INHALATION BID 08/28/20 08/28/20 History carvedilol 12.5 mg PO BID 08/28/20 08/28/20 History diltiazem HCl [Cartia XT] 120 mg PO DAILY 08/28/20 08/28/20 History empagliflozin [Jardiance] 10 mg PO DAILY 08/28/20 08/28/20 History ipratropium-albuterol 3 ml INHALATION UD PRN 08/28/20 08/28/20 History losartan 50 mg PO DAILY 08/28/20 08/28/20 History metformin 1,000 mg PO BID 08/28/20 08/28/20 History tramadol 50 mg PO BID PRN 08/28/20 08/28/20 History Past Med/Surg History Medical History (Updated 08/29/20 @ 04:01 by Danie Mckay MD) COPD (chronic obstructive pulmonary disease) Diabetes mellitus Hyperlipidemia Hypertension Social History Smoking Status: Current every day smoker Tobacco Type: Cigarettes Preferred Language: Palestinian Communication Ability: Effective Marbleizing 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 Neck--supple. No JVD. No bruits. Thyroid normal, trachea midline, no adenopathy. Heart--normal S1 and S2. No murmurs, rubs or gallops. Lungs--coarse breath sounds with wheezes, right greater than left. Moderate respiratory distress with accessory muscle use. Abdomen--normal bowel sounds and soft. Nontender. Nondistended. Mildly obese Extremities--no cyanosis or clubbing. No edema. There are good distal pulses b/l. Dermatologic--normal skin turgor, normal color, no abnormal lymph nodes, no rash. Neurologic--cranial nerves II through XII grossly intact. Rheumatologic-limited exam due to medical state Psychiatric--limited indication on BiPAP with lethargy Results & Data Results & Data ([facility]) Vital Signs (Past 12 Hours) Vital Signs Temp Pulse Pulse Resp BP BP BP 08/29/20 02:45 98.6 F 90 24 143/83 H 08/29/20 02:13 85 28 H 08/29/20 01:08 84 26 H 08/29/20 00:55 98.2 F 85 24 155/78 H 08/29/20 00:00 93 H 28 H 138/77 08/28/20 23:30 86 32 H 144/70 H 08/28/20 23:12 164 H 26 H 08/28/20 23:00 186 H 20 113/66 08/28/20 22:31 171 H 28 H 08/28/20 22:30 160 H 30 H 134/63 08/28/20 22:20 161 H 26 H 08/28/20 22:10 166 H 28 H 08/28/20 22:00 94 H 26 H 145/74 H 08/28/20 21:50 93 H 25 H 08/28/20 21:40 181 H 25 H 08/28/20 21:31 87 25 H 08/28/20 21:30 88 24 119/91 08/28/20 21:20 94 H 87 24 08/28/20 21:10 90 29 H 08/28/20 21:01 93 H 29 H 08/28/20 21:00 95 H 29 H 118/86 08/28/20 20:50 89 26 H 08/28/20 20:40 94 H 27 H 08/28/20 20:36 97 H 26 H 08/28/20 20:31 99 H 24 08/28/20 20:30 94 H 25 H 159/78 H 08/28/20 20:20 94 H 25 H 08/28/20 20:19 94 H 26 H 08/28/20 20:16 98.4 F 93 H 30 H 163/76 H 08/28/20 20:06 94 H 26 H 163/76 H Pulse Ox 08/29/20 02:45 95 08/29/20 02:13 95 08/29/20 01:08 93 08/29/20 00:55 93 08/29/20 00:00 93 08/28/20 23:30 94 08/28/20 23:12 90 08/28/20 23:00 97 08/28/20 22:31 98 08/28/20 22:30 98 08/28/20 22:20 98 08/28/20 22:10 99 08/28/20 22:00 98 08/28/20 21:50 96 08/28/20 21:40 96 08/28/20 21:31 96 08/28/20 21:30 96 08/28/20 21:20 93 08/28/20 21:10 93 08/28/20 21:01 95 08/28/20 21:00 96 08/28/20 20:50 98 08/28/20 20:40 98 08/28/20 20:36 97 08/28/20 20:31 97 08/28/20 20:30 96 08/28/20 20:20 96 08/28/20 20:19 96 08/28/20 20:16 87 L 08/28/20 20:06 96 Laboratory Results Laboratory Results WBC 10.34 K/uL (4.8-10.8) 08/28/20 20:15 RBC 4.56 M/uL (4.2-5.4) 08/28/20 20:15 Hgb 12.2 g/dL (12.0-16.0) 08/28/20 20:15 Hct 40.5 % (37-47) 08/28/20 20:15 MCV 88.8 fL (80-100) 08/28/20 20:15 MCH 26.8 pg (25-34) 08/28/20 20:15 MCHC 30.1 g/dL (32-36) L 08/28/20 20:15 RDW Std Deviation 57.0 fL (36.4-46.3) H 08/28/20 20:15 RDW Coeff of Dorcas 17.5 % (11.5-14.5) H 08/28/20 20:15 Plt Count 433 K/uL (130-400) H 08/28/20 20:15 MPV 10.2 fL (7.4-10.4) 08/28/20 20:15 Immature Gran % (Auto) 0.5 % 08/28/20 20:15 Neut % (Auto) 77.5 % 08/28/20 20:15 Lymph % (Auto) 12.2 % 08/28/20 20:15 Graham % (Auto) 7.9 % 08/28/20 20:15 Eos % (Auto) 1.6 % 08/28/20 20:15 Baso % (Auto) 0.3 % 08/28/20 20:15 Neut # (Auto) 8.01 K/uL (1.4-6.5) H 08/28/20 20:15 Lymph # (Auto) 1.26 K/uL (1.2-3.4) 08/28/20 20:15 Graham # (Auto) 0.82 K/uL (0.11-0.59) H 08/28/20 20:15 Eos # (Auto) 0.17 K/uL (0-0.5) 08/28/20 20:15 Baso # (Auto) 0.03 K/uL (0-0.2) 08/28/20 20:15 Immature Gran # (Auto) 0.05 K/uL (0.00-0.02) H 08/28/20 20:15 PT 10.8 Seconds (9.0-12.0) 08/28/20 20:15 INR 1.0 (0.9-1.1) 08/28/20 20:15 APTT 27.8 Seconds (21.0-31.0) 08/28/20 20:15 PTT Ratio 1.0 08/28/20 20:15 ABG pH 7.29 (7.35-7.45) L 08/28/20 23:23 ABG pCO2 58 mmHg (35-46) H 08/28/20 23:23 ABG pO2 78 mmHg (80-95) L 08/28/20 23:23 ABG HCO3 27 mmol/L (19-24) H 08/28/20 23:23 ABG O2 Saturation 94.2 % (90-95) 08/28/20 23:23 ABG Base Excess -0.2 mEq/L (-9-1.8) 08/28/20 23:23 Presley Test Pos (Pos) 08/28/20 23:23 VBG pH 7.27 (7.36-7.41) L 08/28/20 21:02 VBG pCO2 63 mmHg (38-50) H 08/28/20 21:02 VBG pO2 60 mmHg 08/28/20 21:02 VBG HCO3 29 mmol/L 08/28/20 21:02 VBG O2 Saturation 86.4 % 08/28/20 21:02 VBG Base Excess 0.5 mEq/L 08/28/20 21:02 Barometric Pressure 736.5 mm/Hg 08/28/20 21: Oxygen Given 50% FIO2 08/28/20 23:23 Sodium 136 mmol/L (136-145) 08/28/20 20:15 Potassium 5.3 mmol/L (3.5-5.1) H 08/28/20 20:15 Chloride 104 mmol/L (98-107) 08/28/20 20:15 Carbon Dioxide 28 mmol/L (21-32) 08/28/20 20:15 Anion Gap 4.0 (3-11) 08/28/20 20:15 BUN 33 mg/dl (7-18) H 08/28/20 20:15 Creatinine 1.20 mg/dl (0.6-1.2) 08/28/20 20:15 Est Cr Clr Drug Dosing 44.5 ml/min 08/28/20 20:15 Est GFR ( Amer) 53.8 08/28/20 20:15 Est GFR (Non-Af Amer) 46.4 08/28/20 20:15 BUN/Creatinine Ratio 27.7 (10-20) H 08/28/20 20:15 Glucose 163 mg/dl (70-99) H 08/28/20 20:15 Calcium 9.1 mg/dl (8.5-10.1) 08/28/20 20:15 Total Bilirubin 0.3 mg/dl (0.2-1) 08/28/20 20:15 AST 20 U/L (15-37) 08/28/20 20:15 ALT 18 U/L (12-78) 08/28/20 20:15 Alkaline Phosphatase 109 U/L (45-117) 08/28/20 20:15 Troponin I < 0.015 ng/ml (0-0.045) 08/28/20 20:15 Total Protein 7.4 gm/dl (6.4-8.2) 08/28/20 20:15 Albumin 3.5 gm/dl (3.4-5.0) 08/28/20 20:15 Globulin 3.9 gm/dl (2.5-4.0) 08/28/20 20:15 Albumin/Globulin Ratio 0.9 (0.9-2) 08/28/20 20:15 COVID-19 Eval Order Covid19 Done at [facility] 08/28/20 21:53 COVID-19 PCR NEGATIVE (Negative) 08/28/20 21:53 Diagnostic Findings [facility] Patient: DANIELLA FLANNERY (Female) : 54 Status: Date: 08/29/20 00:36 Room #: 238 History: ABNORMAL CXR Slices: [phone] Priors: Tech: Kris Mathias @ [phone] Exams: CT CHEST Without Contrast Contrast: Accession Numbers: [id number] Preliminary Findings Only See Final Report For Complete Findings CT CHEST Without Contrast: Minimal nodularity/infiltrates in the right middle lobe, lingula and lung bases. Patchy consolidative atelectasis. Pulmonary emphysema. Old granulomatous disease. Small left adrenal adenoma. Colonic diverticula Old rib fractures Radiologist: Alba Ricketts M.D. Study ready at 01:00 and initial results transmitted at 01:17 Results also transmitted to [address] [place] [address] ([id number]) @ [phone] (Fax) *This report constitutes a preliminary interpretation only. Non-acute findings felt to be unrelated to the clinical presentation may not be discussed in this report. The study will be interpreted and a final report will be generated by the local Radiologist the following shift. To reach the hospital radiology department call [phone]. If a discrepancy is found between the preliminary and final interpretations of this study, please notify us via our Client Portal at [email or web address] under QA Exams.You can also fax this report with a description of the discrepancy, or include the final report, to our daytime fax number [phone].If faxing, please indicate the severity of discrepancy using one of the following categories: [ ] 1 - Agree/Informational [ ] 2 - Unlikely to Affect Management [ ] 3 - Possible Eventual Change of Management [ ] 4 - Probable Immediate Change of Management For all other patient related information, please fax us at [phone]. [phone] Code Status & VTE Plan Code Status Full code VTE Prophylaxis Plan VTE Prophylaxis will be ordered: Yes PG Care Time/CCT Total # of Minutes Spent Total Time Spent with Patient: Total time spent is greater than 50% in coordination of care (as documented) at patient's floor/unit and/or counseling patient: Coding Level of Care Code 53263 Initial Inpt Care Lvl 3 Diagnoses Acute on chronic respiratory failure with hypoxia and hypercapnia J96.21; J96.22 Pneumonia J18.9 COPD exacerbation J44.1 Hyperlipidemia E78.5 Hypertension I10 Diabetes mellitus E11.9
[2020-08-29] MEDS: methylPREDNISolone 40 MG in SYRINGE 0 ML IV SCH ×3 (06:12→21:08)
[2020-08-29 06:33] LABS: INR 1.1 (0.9-1.1); Prothrombin Time 11.1 Seconds (9.0-12.0)
--- NOTE | 2020-08-29 06:56 | CT Scan Report ---
CT OF THE CHEST WITHOUT IV CONTRAST CLINICAL HISTORY: Abnormal chest radiograph. COMPARISON STUDY: Chest CT December 10, 2016. Chest radiograph August 28, 2020. CT DOSE: 756.43 mGy.cm TECHNIQUE: Axial images of the chest were obtained without IV contrast. Images were reviewed in the axial, sagittal, and coronal planes. IV contrast was not administered for this examination. Automat ed exposure control was utilized for the study. A dose lowering technique was utilized adhering to t he principles of ALARA. FINDINGS: No enlarged axillary, mediastinal or hilar lymph nodes are present. Several calcified thor acic lymph nodes are noted. Mild cardiomegaly is noted. There is moderate coronary artery calcificati on. There is no pericardial effusion. No pneumothorax or pleural effusion is noted. Lungs are subopti esmer assessed given respiratory motion. Moderate emphysema is noted. There is segmental right middle lobe airspace opacity with volume loss. This is adjacent to emphysematous lung which accounts for th e finding on chest radiograph August 28, 2020. There are additional mild airspace opacities within th e lungs. There is no cavitation. Mild bronchial wall thickening is noted with multifocal mucus pluggi ng. No suspicious lesions within the bony thorax are noted. A left adrenal adenoma, measuring 1.4 cm is unchanged. There are calcified granulomas within the spleen. Fatty infiltration of the liver is no dino. Additional smaller adrenal nodules are also benign. IMPRESSION: 1. Segmental right middle lobe airspace opacity which outlines emphysematous lung. This accounts for the finding on chest radiograph. No central obstructing mass. This airspace opacity favors atelectasi s however additional mild airspace opacities throughout the lungs favor an infectious process. Follow -up chest CT in 2 months to ensure resolution is recommended. 2. Emphysema. 3. Mild cardiomegaly and moderate coronary artery calcification. ACT 112: Negative or not required by law. Electronically signed by: Cheng Arevalo M.D. 08/29/2020 6:55 AM
[2020-08-29 06:57] LABS: Albumin Level 3.2 gm/dl (3.4-5.0); BUN Creatinine Ratio 30.2 (10-20); Basophils # (auto) 0.01 K/uL (0-0.2); Basophils % (auto) 0.1 %; Blood Urea Nitrogen 36 mg/dl (7-18); Calcium 9.1 mg/dl (8.5-10.1); Carbon Dioxide 28 mmol/L (21-32); Chloride 103 mmol/L (98-107); Creatinine Clr Calc Pharmacy 42.8 ml/min; Est GFR (African American) 53.8; Est GFR (Non-African American) 46.4; Glucose 235 mg/dl (70-99); Hematocrit (blood only) 39.6 % (37-47); Hemoglobin 11.9 g/dL (12.0-16.0); Immature Granulocytes # (auto) 0.02 K/uL (0.00-0.02); Immature Granulocytes % (auto) 0.3 %; Lymphocytes # (auto) 0.54 K/uL (1.2-3.4); Lymphocytes % (auto) 6.8 %; Magnesium 2.2 mg/dl (1.8-2.4); Mean Corpuscular Hemoglobin 26.6 pg (25-34); Mean Corpuscular Hgb Conc 30.1 g/dL (32-36); Mean Corpuscular Volume 88.6 fL (80-100); Monocytes # (auto) 0.05 K/uL (0.11-0.59); Monocytes % (auto) 0.6 %; Neutrophils # (auto) 7.33 K/uL (1.4-6.5); Neutrophils % (auto) 92.2 %; Platelet Count 413 K/uL (130-400); Potassium 5.8 mmol/L (3.5-5.1); RDW Coefficient of Variation 17.2 % (11.5-14.5); RDW Standard Deviation 55.9 fL (36.4-46.3); Red Blood Count 4.47 M/uL (4.2-5.4); Sodium 135 mmol/L (136-145); White Blood Count 7.95 K/uL (4.8-10.8)
[2020-08-29 07:02] LABS: Phosphorus 3.7 mg/dl (2.5-4.9); Troponin I < 0.015 ng/ml (0-0.045)
[2020-08-29] MEDS: ALBUT/IPRATROP 3MG/0.5MG NEB 3 ML VIAL NEB SCH ×5 (07:22→23:22)
[2020-08-29] MEDS ORDERED: AZITHROMYCIN 250 MG TAB PO ONE (07:39)
--- NOTE | 2020-08-29 08:09 | XRay Report ---
XR chest 1V portable HISTORY: 70 years-old Female SOB acute shortness of breath COMPARISON: Chest CT of same day TECHNIQUE: Portable AP view of the chest FINDINGS: Cardiac silhouette is normal in size. Calcified plaque of the thoracic aorta. There is no pneumothora x, pleural effusion or overt pulmonary edema. Moderate emphysema with chronic interstitial coarsening . Linear consolidation of the right middle lobe outlines a lucent structure suggestive of emphysemato us lung. Subtle subsegmental bibasilar opacities. Bones appear grossly intact. IMPRESSION: 1. Emphysema with linear right lung base opacity suggestive of atelectasis. 2. Subsegmental bibasilar opacities are better characterized on CT chest 08/29/2020 suspicious for a n onspecific infectious or inflammatory pneumonitis. ACT 112: Negative or not required by law. The above report was generated using voice recognition software. It may contain grammatical, syntax o r spelling errors. Electronically signed by: Omid Sharma M.D. 08/29/2020 8:08 AM
[2020-08-29] MEDS: PIPERACILLIN/TAZOBACTAM 3.375 GM in DEXTROSE 5% 100 ML IV SCH ×3 (08:22→23:19)
[2020-08-29] MEDS: ATORVASTATIN 40 MG TAB PO SCH (08:23)
[2020-08-29] MEDS: dilTIAZem HCL 120 MG CAPCR PO SCH (08:23)
[2020-08-29] MEDS: LOSARTAN POTASSIUM 50 MG TAB PO SCH (08:23)
[2020-08-29] MEDS: ASPIRIN 81 MG ECTAB PO SCH (08:23)
[2020-08-29] MEDS: HEPARIN SOD 5,000 UNIT/0.5 ML VIAL SQ SCH ×2 (09:08→21:06)
--- NOTE | 2020-08-29 12:51 | Hospitalist Progress Note ---
Date of Service August 29, 2020 Assessment & Plan (1) Pneumonia: CT chest on 08/28 showed right middle lobe airspace opacity and additional mild airspace opacities throughout the lungs which favored an infectious process. - Continue Zosyn & added azithryomycin on 08/29. - Continue steroids for COPD - DuoNebs standing and PRN (2) COPD exacerbation: See above (3) Acute on chronic respiratory failure with hypoxia and hypercapnia: Acute on chronic respiratory failure with hypoxia and hypercapnia. - Due to pneumonia and COPD exacerbation (4) Hypertension: BP presently 115/65. - Continue aspirin, carvedilol, diltiazem, and losartan (5) Diabetes mellitus: No A1c in charts. - Hold metformin and Jardiance due inpatient status - Sliding scale insulin - Check hemoglobin A1c (6) Hyperlipidemia: - Continue atorvastatin (7) DVT prophylaxis: Heparin 5000 units Q12h Admission and Anticipated Discharge Date Admission Date: August 28, 2020 Subjective Patient was obtunded during my visit while on BiPap. Review of Systems Review of Systems: Unobtainable due to reduced consciousness Physical Exam Constitutional: WD/WN, vitals as above Eyes: EOM intact bilaterally; no conjunctival abnormality ENMT: external ear and nose normal, oropharynx normal Neck: trachea midline, no thyromegaly normal visual inspection Respiratory: + labored breathing and + tachypneic; no respiratory distress and no cough Auscultation: + diminished lung sounds and + rhonchi Cardiovascular: RRR, no murmur, no edema Gastrointestinal (Abdomen): Inspection/Auscultation: abdomen normal to inspection; abdomen not distended Musculoskeletal: no cyanosis or clubbing, extremities motor strength 5/5 Skin: no rashes, warm and dry Neurologic: moves all extremities and awake Psychiatric: Orientation: alert, oriented to person and cooperative Results & Data Results & Data ([facility]) Vital Signs (Past 12 Hours) Vital Signs Temp Pulse Pulse Pulse Resp BP BP 08/29/20 12:04 36.5 C 82 19 116/66 08/29/20 11:25 85 26 H 08/29/20 08:45 36.3 C L 08/29/20 08:18 86 18 121/63 08/29/20 07:22 86 86 27 H 08/29/20 04:04 84 22 08/29/20 02:45 37 C 90 24 143/83 H 08/29/20 02:13 85 28 H 08/29/20 01:08 84 26 H 08/29/20 00:55 36.8 C 85 24 155/78 H Pulse Ox 08/29/20 12:04 92 08/29/20 11:25 90 08/29/20 08:45 08/29/20 08:18 92 08/29/20 07:22 92 08/29/20 04:04 94 08/29/20 02:45 95 08/29/20 02:13 95 08/29/20 01:08 93 08/29/20 00:55 93 PG Care Time/CCT Total # of Minutes Spent Total Time Spent with Patient: Total time spent is greater than 50% in coordination of care (as documented) at patient's floor/unit and/or counseling patient: Coding Level of Care Code 30741 Subseq Hosp Care Lvl 3 Diagnoses Pneumonia J18.9 COPD exacerbation J44.1 Acute on chronic respiratory failure with hypoxia and hypercapnia J96.21; J96.22 Hypertension I10 Diabetes mellitus E11.9 Hyperlipidemia E78.5 DVT prophylaxis Z29.9
[2020-08-29] MEDS: ACETAMINOPHEN 325 MG TAB PO PRN (16:24)
[2020-08-29 16:29] LABS: BUN Creatinine Ratio 32.9 (10-20); Calcium 9.2 mg/dl (8.5-10.1); Creatinine Clr Calc Pharmacy 35.7 ml/min; Est GFR (African American) 43.1; Est GFR (Non-African American) 37.2; Potassium 4.7 mmol/L (3.5-5.1)
[2020-08-29] MEDS: INSULIN ASPART 100 UNITS/ML 3 ML PEN SC SCH ×2 (17:09→21:07)
--- NOTE | 2020-08-29 17:20 | Electrocardiogram Report ---
Test Reason : Blood Pressure : / mmHG Vent. Rate : 191 BPM Atrial Rate : 191 BPM P-R Int : 000 ms QRS Dur : 082 ms QT Int : 276 ms P-R-T Axes : 079 015 066 degrees QTc Int : 492 ms sinus rhythm Otherwise normal ECG When compared with ECG of 10-DEC-2016 18:10, Criteria for Inferior infarct are no longer Present Confirmed by Lion Diego ([id number]) on 08/29/2020 5:20:18 PM Referred By: REFERRED SELF Confirmed By:Yvan Diego
--- NOTE | 2020-08-29 17:25 | Electrocardiogram Report ---
Test Reason : Blood Pressure : / mmHG Vent. Rate : 158 BPM Atrial Rate : 158 BPM P-R Int : 158 ms QRS Dur : 082 ms QT Int : 216 ms P-R-T Axes : 059 010 059 degrees QTc Int : 350 ms Sinus rhythm Peaked T waves(consider ischemia,hyperkalemia,etc.) Abnormal ECG When compared with ECG of 28-AUG-2020 20:23, (unconfirmed) Nonspecific T wave abnormality now evident in Inferior leads Nonspecific T wave abnormality now evident in Anterolateral leads Confirmed by Lion Diego ([id number]) on 08/29/2020 5:25:16 PM Referred By: REFERRED SELF Confirmed By:Yvan Diego
[2020-08-29 19:16] LABS: Adenovirus PCR Not Detected (NotDetected); Bordetella parapertussis PCR Not Detected (NotDetected); Bordetella pertussis PCR Not Detected (NotDetected); Chlamydia pneumoniae PCR Not Detected (NotDetected); Coronavirus 229E PCR Not Detected (NotDetected); Coronavirus CoV-2 (COVID19)PCR Not Detected (NotDetected); Coronavirus HKU1 PCR Not Detected (NotDetected); Coronavirus NL63 PCR Not Detected (NotDetected); Coronavirus OC43PCR Not Detected (NotDetected); Human Metapneumovirus PCR Not Detected (NotDetected); Influenza A PCR Not Detected (NotDetected); Influenza B PCR Not Detected (NotDetected); Mycoplasma pneumoniae PCR Not Detected (NotDetected); Parainfluenza Virus 1 PCR Not Detected (NotDetected); Parainfluenza Virus 2 PCR Not Detected (NotDetected); Parainfluenza Virus 3 PCR Not Detected (NotDetected); Parainfluenza Virus 4 PCR Not Detected (NotDetected); Respiratory Syncytial VirusPCR Not Detected (NotDetected); Rhinovirus/Enterovirus PCR Not Detected (NotDetected)
[2020-08-29] MEDS ORDERED: GLUCOSE 40% GEL 15 GM TUBE PO PRN (21:30)
[2020-08-29] MEDS ORDERED: GLUCAGON FOR INJ 1 MG VIAL IM PRN (21:30)
[2020-08-29] MEDS ORDERED: GLUCOSE 10 TABS/TUBE PO PRN (21:30)
[2020-08-29] MEDS ORDERED: CARBOHYDRATES FOR HYPOGLYCEMIA PO PRN (21:30)
[2020-08-29] MEDS ORDERED: DEXTROSE 50% 50 ML SYRINGE IV PRN (21:30)
[2020-08-30] MEDS: methylPREDNISolone 40 MG in SYRINGE 0 ML IV SCH ×2 (05:25→13:28)
[2020-08-30] MEDS: ALBUT/IPRATROP 3MG/0.5MG NEB 3 ML VIAL NEB SCH ×4 (06:02→19:41)
[2020-08-30] MEDS: traMADol HCL 50 MG TABLET PO PRN (07:03)
[2020-08-30 08:35] LABS: Hematocrit (blood only) 38.8 % (37-47); Hemoglobin 11.7 g/dL (12.0-16.0); Immature Granulocytes # (auto) 0.08 K/uL (0.00-0.02); Immature Granulocytes % (auto) 0.5 %; Lymphocytes # (auto) 0.76 K/uL (1.2-3.4); Lymphocytes % (auto) 4.7 %; Mean Corpuscular Hemoglobin 26.4 pg (25-34); Mean Corpuscular Hgb Conc 30.2 g/dL (32-36); Mean Corpuscular Volume 87.6 fL (80-100); Mean Platelet Volume 10.3 fL (7.4-10.4); Monocytes # (auto) 0.19 K/uL (0.11-0.59); Monocytes % (auto) 1.2 %; Neutrophils # (auto) 14.98 K/uL (1.4-6.5); Neutrophils % (auto) 93.6 %; Platelet Count 424 K/uL (130-400); RDW Coefficient of Variation 17.4 % (11.5-14.5); Red Blood Count 4.43 M/uL (4.2-5.4); White Blood Count 16.01 K/uL (4.8-10.8)
[2020-08-30 08:38] LABS: Base Excess VBG 2.3 mEq/L; HCO3 VBG 29 mmol/L; PCO2 VBG 52 mmHg (38-50); PO2 VBG 20 mmHg; pH VBG 7.36 (7.36-7.41)
[2020-08-30 08:48] LABS: INR 1.1 (0.9-1.1); Prothrombin Time 11.2 Seconds (9.0-12.0)
--- NOTE | 2020-08-30 08:49 | Pulmonary Consultation ---
Date of Consultation August 30, 2020 Assessment & Plan (1) Acute on chronic respiratory failure with hypoxia and hypercapnia: Is a 70-year-old female that is a chronic every day smoker. She reports that she follows with pulmonology [place] and I suspect this is [facility]. Records have been requested but have not been supplied yet. She presents with 2 to 3 days of progressive shortness of breath ultimately leading to altered mental status and admission Recommendations: 1. Acute on chronic respiratory failure: Patient was on home supplemental O2 at 3 L/min via nasal cannula. She reports chronic pain and it is questionable as to whether she has altered mental status secondary to excessive doses of tramadol at home as she request more frequent dosing here at the hospital. Arterial blood gas revealed hypercapnia with a PCO2 of 58. Initial pH was 7.29. VBG repeated today shows a pH of 7.36. She remains elevated with her PCO2 suggesting chronic retention. Recommend BiPAP the patient is reluctant to use it secondary to claustrophobia. Continue with high flow oxygen to maintain SaO2 of 90%. PFTs have been requested from [facility] and are pending. Will decrease steroids quickly as patient has no bronchospasm at this time. 2. Pneumonitis: Patient has nothing on the x-ray to suggest a clear consolidation. Would de-escalate antibiotics quickly. Procalcitonin is negative. Would encourage incentive spirometry and tobacco cessation. Outpatie nt follow-up with pulmonology. 3. Hypercapnia: Would recommend outpatient polysomnography if not completed recently. We will also get full PFTs if not completed. Patient was offered outpatient follow-up with our [facility] [place] [facility]. She prefers to follow-up with her current [facility] opener in [place]. At this time patient is alert and oriented and has no evidence of altered mental status. 4. Tobacco abuse: Patient does state that she and her both smoke half a pack of cigarettes daily. I did discuss complete abstention. Patient is reluctant to quit completely. She does state that she is reduced her tobacco intake significantly we will continue to work on that at home. 5. 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 She also does have some calcification at the right main takeoff. 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 At this point, there is no significant benefit to bronchoscopy, especially if she is following with pulmonology in [place]. Would recommend aspiration precautions and out of bed to chair as often as possible. We will also start incentive spirometry for the right lower lobe collapse. There also appears to be some scarring versus atelectasis. Incentive spirometry will help with this as well. Patient should not be on steroids as a rule. Would discontinue steroids quickly as tolerated without a prolonged taper. 6. Chronic low back pain: Patient repeatedly asked for additional narcotics for pain during my short visit with her. PDMP was reviewed and shows a total of 10 MME/day. I deferred any further treatment of pain to the primary team. Would be judicious with use of opiates or narcotics secondary to hypercapnia and chronic respiratory failure. Thank you very much for including us in the care of this patient. We will foll ow along with you at this time. Please refer to Dr. Scott's addendum for further recommendations. (2) Tobacco abuse: (3) Diabetes mellitus: Diabetes mellitus truck terminal manager insulin use: without truck terminal manager use Diabetes mellitus type: type 2 Diabetic retinopathy severity: with unspecified retinopathy severity (4) COPD (chronic obstructive pulmonary disease): (5) Chronic low back pain: Supervising Physician Co-Signing Physician Notes Patient seen and examined. EMR reviewed. Discussed with pulmonary SARY and agree with assessment and plan as noted. 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 She is not appear bronchospastic currently so would rapidly wean steroids to avoid contributing to her tracheobronchial malacia. Outpatient sleep study would be appropriate to evaluate for potential sleep disordered breathing and the patient may benefit from nocturnal CPAP to assist in airway splinting. Continue bronchodilators. Increase activity as tolerated and wean supplemental oxygen to keep saturations 85 to 90%. Patient will need to follow-up with her outpatient pulmonary providers and [place] History of Present Illness Attending Physician: Epi Ernst MD History of Present Illness Attending: Dr. Scott This is a 70-year-old female with a history of diabetes mellitus type 2, COPD, hypertension, hyperlipidemia, Chronic respiratory failure with hypoxia on 3 L of supplemental oxygen via nasal cannula, chronic low back pain reportedly from assist on the spine, AAA,Recurrent pneumonia, chronic pain, tobacco abuse. She states that periodically she gets pneumonia and when this occurs she has altered mental status. She will be at home and will not know her , we will not know where she is, and cannot recall things. Once admitted and receiving antibiotics, she reports that she improves after day or 2.She states that she follows with a [facility] opener in [place] but is unable to tell me the physician's name. She also reports that she has had pulmonary function testing and respiratory work-up done in [place] but is unaware of any results.She is a daily tobacco user with approximately 10 cigarettes/day. She also reports that her is a smoker. They smoke inside but away from supplemental oxygen.She has grown children who live out of [facility]. 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 She has no other vocational exposure. Allergies Allergy/AdvReac Type Severity Reaction Status Date / Time diflunisal Allergy Unknown HEART RACES Verified 10/26/16 19:17 Home Medications Home Medications Medication Instructions Recorded Confirmed Type albuterol sulfate 2 puff INHALATION Q6 PRN 08/28/20 08/28/20 History aspirin [Aspirin Low Dose] 81 mg PO DAILY 08/28/20 08/28/20 History atorvastatin 40 mg PO DAILY 08/28/20 08/28/20 History budesonide 0.5 mg INHALATION BID 08/28/20 08/28/20 History carvedilol 12.5 mg PO BID 08/28/20 08/28/20 History diltiazem HCl [Cartia XT] 120 mg PO DAILY 08/28/20 08/28/20 History empagliflozin [Jardiance] 10 mg PO DAILY 08/28/20 08/28/20 History ipratropium-albuterol 3 ml INHALATION UD PRN 08/28/20 08/28/20 History losartan 50 mg PO DAILY 08/28/20 08/28/20 History metformin 1,000 mg PO BID 08/28/20 08/28/20 History tramadol 50 mg PO BID PRN 08/28/20 08/28/20 History Patient History Medical History (Updated 08/30/20 @ 11:59 by Koby Hunt PA-C) AAA (abdominal aortic aneurysm) Chronic low back pain COPD (chronic obstructive pulmonary disease) Diabetes mellitus Diaphragmatic hernia (10/31/11) History of knee replacement Hyperlipidemia Hypertension Left peroneal nerve palsy Tobacco abuse Surgical History (Updated 08/30/20 @ 08:56 by Koby Hunt PA-C) H/O Achilles tendon repair (~2007) H/O: hysterectomy History of appendectomy History of bilateral oophorectomies History of lithotripsy (~2007) Hx of cholecystectomy Family History (Updated 08/30/20 @ 08:56 by Koby Hunt PA-C) Other Family history non-contributory Social History Smoking Status: Current every day smoker Tobacco Type: Cigarettes Preferred Language: Maltese Communication Ability: Effective Process Laboratory Specialist Required: No Beliefs That Will Affect Care: None Current Living Situation: Spouse Feels Safe at Home: Yes Assistive Devices: Oxygen - Continuous Assistive Devices Comment: 3l atc at home Review of Systems Review of Systems: All systems reviewed & are unremarkable except as noted in HPI & below Physical Exam Physical Exam: GENERAL : No acute distress. Pleasant. Talkative without evidence of conversational dyspnea EYES: No icterus, gaze conjugate. Pupils equal round and reactive to light NOSE: No evidence of epistaxis MOUTH: No lesions or candidiasis NECK: Supple LUNGS: Coarse rales at the bases HEART: Regular, rate controlled ABDOMEN: Soft, NT, ND, BS Present EXTREMITIES: No LE edema, pedal pulses intact NEURO: A&OX3 Results & Data Results & Data ([facility]) Vital Signs (Past 12 Hours) Vital Signs Temp Pulse Resp BP BP Pulse Ox 08/30/20 07:58 36.5 C 76 18 127/69 95 08/30/20 06:03 70 20 85 L 08/30/20 06:02 70 20 85 L 08/30/20 03:30 36.4 C L 65 20 137/75 92 08/30/20 03:20 73 20 93 08/29/20 23:23 68 20 91 08/29/20 22:59 36.8 C 73 18 126/73 90 08/29/20 21:26 71 18 91 Laboratory Results 08/30/20 08:21 08/28/20 08/28/20 21:02 23:23 ABG pH 7.29 L ABG pCO2 58 H ABG pO2 78 L ABG HCO3 27 H ABG O2 Saturation 94.2 ABG Base Excess -0.2 VBG pH 7.27 L VBG pCO2 63 H VBG pO2 60 VBG HCO3 29 VBG O2 Saturation 86.4 VBG Base Excess 0.[address] OF THE CHEST WITHOUT IV CONTRAST CLINICAL HISTORY: Abnormal chest radiograph. COMPARISON STUDY: Chest CT December 10, 2016. Chest radiograph August 28, 2020. CT DOSE: 756.43 mGy.cm TECHNIQUE: Axial images of the chest were obtained without IV contrast. Images were reviewed in the axial, sagittal, and coronal planes. IV contrast was not administered for this examination. Automated exposure control was utilized for the study. A dose lowering technique was utilized adhering to the principles of ALARA. FINDINGS: No enlarged axillary, mediastinal or hilar lymph nodes are present. Several calcified thoracic lymph nodes are noted. Mild cardiomegaly is noted. There is moderate coronary artery calcification. There is no pericardial effusion. No pneumothorax or pleural effusion is noted. Lungs are suboptimally assessed given respiratory motion. Moderate emphysema is noted. There is segmental right middle lobe airspace opacity with volume loss. This is adjacent to emphysematous lung which accounts for the finding on chest radiograph August 28, 2020. There are additional mild airspace opacities within the lungs. There is no cavitation. Mild bronchial wall thickening is noted with multifocal mucus plugging. No suspicious lesions within the bony thorax are noted. A left adrenal adenoma, measuring 1.4 cm is unchanged. There are calcified granulomas within the spleen. Fatty infiltration of the liver is noted. Additional smaller adrenal nodules are also benign. IMPRESSION: 1. Segmental right middle lobe airspace opacity which outlines emphysematous lung. This accounts for the finding on chest radiograph. No central obstructing mass. This airspace opacity favors atelectasis however additional mild airspace opacities throughout the lungs favor an infectious process. Follow-up chest CT in 2 months to ensure resolution is recommended. 2. Emphysema. 3. Mild cardiomegaly and moderate coronary artery calcification. Electronically signed by: Cheng Arevalo M.D. 08/29/2020 6:55 AM XR chest 1V portable HISTORY: 70 years-old Female SOB acute shortness of breath COMPARISON: Chest CT of same day TECHNIQUE: Portable AP view of the chest FINDINGS: Cardiac silhouette is normal in size. Calcified plaque of the thoracic aorta. There is no pneumothorax, pleural effusion or overt pulmonary edema. Moderate emphysema with chronic interstitial coarsening. Linear consolidation of the right middle lobe outlines a lucent structure suggestive of emphysematous lung. Subtle subsegmental bibasilar opacities. Bones appear grossly intact. IMPRESSION: 1. Emphysema with linear right lung base opacity suggestive of atelectasis. 2. Subsegmental bibasilar opacities are better characterized on CT chest 08/29/2020 suspicious for a nonspecific infectious or inflammatory pneumonitis. Electronically signed by: Omid Sharma M.D. 08/29/2020 8:08 AM PG Care Time/CCT Total # of Minutes Spent Total Time Spent with Patient: Total time spent is greater than 50% in coordination of care (as documented) at patient's floor/unit and/or counseling patient: 50 minutes Coding Level of Care Code 73943 Inpt Consult Level 5 Diagnoses Acute on chronic respiratory failure with hypoxia and hypercapnia J96.21; J96.22 Tobacco abuse Z72.0 Diabetes mellitus E11.9 Diabetes mellitus correction insulin use: without truck terminal manager use Diabetes mellitus type: type 2 Diabetic retinopathy severity: with unspecified retinopathy severity COPD (chronic obstructive pulmonary disease) J44.9 Chronic low back pain M54.5; G89.29 Time Spent (min) 50
[2020-08-30] MEDS: INSULIN ASPART 100 UNITS/ML 3 ML PEN SC SCH ×4 (08:58→20:34)
[2020-08-30] MEDS: PIPERACILLIN/TAZOBACTAM 3.375 GM in DEXTROSE 5% 100 ML IV SCH (08:58)
[2020-08-30] MEDS: dilTIAZem HCL 120 MG CAPCR PO SCH (08:59)
[2020-08-30] MEDS: ASPIRIN 81 MG ECTAB PO SCH (08:59)
[2020-08-30] MEDS: ATORVASTATIN 40 MG TAB PO SCH (08:59)
[2020-08-30] MEDS: HEPARIN SOD 5,000 UNIT/0.5 ML VIAL SQ SCH ×2 (08:59→20:35)
[2020-08-30] MEDS: LOSARTAN POTASSIUM 50 MG TAB PO SCH (08:59)
[2020-08-30] MEDS: carvediloL 12.5 MG TAB PO SCH ×2 (08:59→20:34)
[2020-08-30 09:08] LABS: Estimated Average Glucose 197 mg/dl; Hemoglobin A1C 8.5 % (4.5-5.6)
[2020-08-30 09:26] LABS: Oxygen Saturation VBG < 60.0 %
[2020-08-30 09:35] LABS: Albumin Level 3.2 gm/dl (3.4-5.0); BUN Creatinine Ratio 31.7 (10-20); Calcium 9.5 mg/dl (8.5-10.1); Creatinine Clr Calc Pharmacy 35.5 ml/min; Est GFR (African American) 42.4; Est GFR (Non-African American) 36.6; Magnesium 2.3 mg/dl (1.8-2.4); Phosphorus 3.3 mg/dl (2.5-4.9); Potassium 5.2 mmol/L (3.5-5.1)
--- NOTE | 2020-08-30 09:57 | XRay Report ---
SINGLE VIEW CHEST CLINICAL HISTORY: Hypoxia. FINDINGS: An AP, portable, upright chest radiograph is compared to study dated 08/28/2020 and correlat ed with chest CT dated 08/29/2020. The heart is mildly enlarged noting atherosclerotic calcification o f the thoracic aorta. The pulmonary vasculature is noncongested. Emphysema and chronic interstitial t hickening are similar to previous. There is bibasilar scarring/atelectasis. No airspace consolidation is seen typical for pneumonia. There are scattered calcified granulomas. Small pleural effusions are new from previous. A large bulla is again seen at the medial right base. No pneumothorax is seen. Th e skeletal structures are osteopenic. The bony thorax is grossly intact. IMPRESSION: 1. Cardiomegaly and emphysema. 2. Small pleural effusions are new from yesterday. ACT 112: Negative or not required by law. Electronically signed by: Koby Wallace M.D. 08/30/2020 9:56 AM
[2020-08-30 10:17] LABS: Beta-Hydroxybutyrate 4.29 mg/dl (0.2-2.81)
[2020-08-30] MEDS: BUDESONIDE 0.5 MG/2 ML VIAL (PULMICORT) INH SCH ×2 (11:11→19:41)
--- NOTE | 2020-08-30 11:52 | Electrocardiogram Report ---
Test Reason : Blood Pressure : / mmHG Vent. Rate : 075 BPM Atrial Rate : 075 BPM P-R Int : 156 ms QRS Dur : 094 ms QT Int : 388 ms P-R-T Axes : 057 030 070 degrees QTc Int : 433 ms Normal sinus rhythm Normal ECG When compared with ECG of 29-AUG-2020 06:40, Minimal criteria for Inferior infarct are no longer Present Nonspecific T wave abnormality no longer evident in Inferior leads Nonspecific T wave abnormality no longer evident in Anterolateral leads Confirmed by Lion Diego ([id number]) on 08/30/2020 11:52:08 AM Referred By: REFERRED SELF Confirmed By:Yvan Diego
[2020-08-30] MEDS: ACETAMINOPHEN 325 MG TAB PO PRN (12:06)
[2020-08-30] MEDS: HYDROCODONE/ACETAMOPHEN 5/325MG TAB PO PRN ×2 (12:37→20:33)
--- NOTE | 2020-08-30 13:43 | Hospitalist Progress Note ---
Date of Service August 30, 2020 Assessment & Plan (1) Pneumonia: CT chest on 08/28 showed right middle lobe airspace opacity and additional mild airspace opacities throughout the lungs which favored an infectious process. - Continue Zosyn & added azithromycin on 08/29. - Continue steroids for COPD - DuoNebs standing and PRN - Pulmonary consulted on 08/30 -> Recommend quick taper of steroids and antibiotics. (2) COPD exacerbation: See above (3) Acute on chronic respiratory failure with hypoxia and hypercapnia: Acute on chronic respiratory failure with hypoxia and hypercapnia. - Due to pneumonia and COPD exacerbation (4) Hypertension: BP presently 150/80. - Continue aspirin, carvedilol, diltiazem, and losartan (5) Diabetes mellitus: A1c was 8.5% this admission. - Hold metformin and Jardiance due inpatient status - Sliding scale insulin - Quite high on steroids. Will hopefully improve with lower steroid dose. (6) Hyperlipidemia: - Continue atorvastatin (7) DVT prophylaxis: Heparin 5000 units Q12h Admission and Anticipated Discharge Date Admission Date: August 28, 2020 Subjective Reports her breathing is nearly at its baseline at this time subjectively. However, she does report significant back pain. Reports no fevers/chills, chest pain, shortness of breath, abdominal pain, nausea, or vomiting. Physical Exam Constitutional: WD/WN, vitals as above Eyes: EOM intact bilaterally; no conjunctival abnormality ENMT: external ear and nose normal, oropharynx normal Neck: trachea midline, no thyromegaly normal visual inspection Respiratory: + tachypneic; no respiratory distress, no labored breathing and no cough Auscultation: + diminished lung sounds and + rhonchi Cardiovascular: RRR, no murmur, no edema Gastrointestinal (Abdomen): Inspection/Auscultation: abdomen normal to inspection; abdomen not distended Musculoskeletal: no cyanosis or clubbing, extremities motor strength 5/5 Skin: no rashes, warm and dry Neurologic: moves all extremities and awake Psychiatric: Orientation: alert, oriented to person and cooperative Results & Data Results & Data ([facility]) Vital Signs (Past 12 Hours) Vital Signs Temp Pulse Resp BP Pulse Ox 08/30/20 13:29 89 L 08/30/20 12:45 91 08/30/20 11:50 36.6 C 75 18 151/79 H 96 08/30/20 11:18 80 26 H 89 L 08/30/20 07:58 36.5 C 76 18 127/69 95 08/30/20 06:03 70 20 85 L 08/30/20 06:02 70 20 85 L 08/30/20 03:30 36.4 C L 65 20 137/75 92 08/30/20 03:20 73 20 93 PG Care Time/CCT Total # of Minutes Spent Total Time Spent with Patient: Total time spent is greater than 50% in coordination of care (as documented) at patient's floor/unit and/or counseling patient: Coding Level of Care Code 45243 Subseq Hosp Care Lvl 2 Diagnoses Pneumonia J18.9 COPD exacerbation J44.1 Acute on chronic respiratory failure with hypoxia and hypercapnia J96.21; J96.22 Hypertension I10 Diabetes mellitus E11.9 Diabetes mellitus type: type 2 Diabetes mellitus senior care insulin use: without terminal computer operator use Diabetic retinopathy severity: with unspecified retinopathy severity Hyperlipidemia E78.5 DVT prophylaxis Z29.9 (1) Diabetes mellitus Diabetes mellitus type: type 2 Diabetes mellitus terminal computer operator insulin use: without senior care use Diabetic retinopathy severity: with unspecified retinopathy severity
[2020-08-30] MEDS: AZITHROMYCIN 250 MG TAB PO SCH (15:50)
[2020-08-30] MEDS: cefUROXime axetil 250 MG TABLET PO SCH (15:50)
[2020-08-31] MEDS: traMADol HCL 50 MG TABLET PO PRN ×3 (01:21→23:28)
[2020-08-31] MEDS: ALBUT/IPRATROP 3MG/0.5MG NEB 3 ML VIAL NEB SCH ×3 (01:30→11:55)
[2020-08-31 06:25] LABS: Hematocrit (blood only) 38.8 % (37-47); Hemoglobin 11.8 g/dL (12.0-16.0); Immature Granulocytes # (auto) 0.08 K/uL (0.00-0.02); Immature Granulocytes % (auto) 0.6 %; Lymphocytes % (auto) 7.6 %; Mean Corpuscular Hemoglobin 26.2 pg (25-34); Mean Corpuscular Hgb Conc 30.4 g/dL (32-36); Mean Corpuscular Volume 86.2 fL (80-100); Monocytes # (auto) 0.85 K/uL (0.11-0.59); Monocytes % (auto) 6.4 %; Neutrophils # (auto) 11.25 K/uL (1.4-6.5); Neutrophils % (auto) 85.4 %; Platelet Count 382 K/uL (130-400); RDW Coefficient of Variation 17.1 % (11.5-14.5); RDW Standard Deviation 54.1 fL (36.4-46.3); White Blood Count 13.18 K/uL (4.8-10.8)
[2020-08-31 06:27] LABS: Base Excess VBG 4.3 mEq/L; HCO3 VBG 30 mmol/L; PCO2 VBG 50 mmHg (38-50); PO2 VBG 32 mmHg
[2020-08-31 06:33] LABS: Oxygen Saturation VBG < 60.0 %
[2020-08-31 06:38] LABS: Prothrombin Time 10.9 Seconds (9.0-12.0)
[2020-08-31 06:56] LABS: Albumin Level 3.1 gm/dl (3.4-5.0); BUN Creatinine Ratio 37.1 (10-20); Calcium 9.2 mg/dl (8.5-10.1); Est GFR (African American) 60.4; Est GFR (Non-African American) 52.1; Magnesium 2.1 mg/dl (1.8-2.4); Phosphorus 3.2 mg/dl (2.5-4.9); Potassium 4.6 mmol/L (3.5-5.1)
[2020-08-31] MEDS: BUDESONIDE 0.5 MG/2 ML VIAL (PULMICORT) INH SCH ×2 (07:23→20:07)
[2020-08-31] MEDS: INSULIN ASPART 100 UNITS/ML 3 ML PEN SC SCH ×4 (08:14→21:06)
[2020-08-31] MEDS: predniSONE 10 MG TABLET PO SCH (08:16)
[2020-08-31] MEDS: dilTIAZem HCL 120 MG CAPCR PO SCH (08:16)
[2020-08-31] MEDS: ATORVASTATIN 40 MG TAB PO SCH (08:16)
[2020-08-31] MEDS: ASPIRIN 81 MG ECTAB PO SCH (08:16)
[2020-08-31] MEDS: AZITHROMYCIN 250 MG TAB PO SCH (08:17)
[2020-08-31] MEDS: LOSARTAN POTASSIUM 50 MG TAB PO SCH (08:17)
[2020-08-31] MEDS: carvediloL 12.5 MG TAB PO SCH ×2 (08:17→21:08)
[2020-08-31] MEDS: cefUROXime axetil 250 MG TABLET PO SCH ×2 (08:17→21:08)
[2020-08-31] MEDS: HEPARIN SOD 5,000 UNIT/0.5 ML VIAL SQ SCH ×2 (08:18→21:07)
[2020-08-31] MEDS: HYDROCODONE/ACETAMOPHEN 5/325MG TAB PO PRN ×3 (08:22→21:11)
--- NOTE | 2020-08-31 13:51 | Pulmonology Progress Note ---
Date of Service August 31, 2020 Assessment & Plan (1) Acute on chronic respiratory failure with hypoxia and hypercapnia: Is a 70-year-old female that is a chronic every day smoker. She reports that she follows with pulmonology [place] and I suspect this is [facility]. Records have been requested but have not been supplied yet. She presents with 2 to 3 days of progressive shortness of breath ultimately leading to altered mental status and admission Recommendations: 1. Acute on chronic respiratory failure: Patient was on home supplemental O2 at 3 L/min via nasal cannula. Patient had respiratory acidosis on admission. Her repeat VBG G showed a pH of 7.36. She is refusing CPAP and BiPAP. High flow supplemental O2 was initiated to maintain an SaO2 of greater than 90%. Records were requested from [facility] regarding PFTs and other respiratory records. These are currently still pending. Patient is still requiring FiO2 of 100 percent. May consider echocardiogram to rule out cardiac etiology. Methylprednisolone is been discontinued and patient currently is on prednisone 30 mg daily. Would taper this quickly as patient is absent of bronchospasm. Patient is currently on budesonide. We will add performist and Incruse and will change albuterol nebs to as needed 2. Pneumonitis: Patient has nothing on the x-ray to suggest a clear consolidation. Would de-escalate antibiotics quickly. Procalcitonin is negative. Would encourage incentive spirometry and tobacco cessation. Outpatient follow-up with pulmonology. 3. Hypercapnia: Would recommend outpatient polysomnography if not completed r ecently. We will also get full PFTs if not completed. Patient was offered outpatient follow-up with our [facility] pulmonology group. She prefers to follow-up with her current property technician in [place]. At this time patient is alert and oriented and has no evidence of altered mental status. Called HIM again for records from [facility] 4. Tobacco abuse: Patient does state that she and her both smoke half a pack of cigarettes daily. I did discuss complete abstention. Patient is reluctant to quit completely. She does state that she is reduced her tobacco intake significantly we will continue to work on that at home. 5. 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 She also does have some calcification at the right main takeoff. 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 At this point, there is no significant benefit to bronchoscopy, especially if she is following with pulmonology in [place]. Would recommend aspiration precautions and out of bed to chair as often as possible. We will also start incentive spirometry for the right lower lobe collapse. CPAP as tolerated for splinting. There also appears to be some scarring versus atelectasis. Incentive spirometry will help with this as well. Patient should not be on steroids as a rule. Would discontinue steroids quickly as tolerated without a prolonged taper. 6. Chronic low back pain: Patient repeatedly asked for additional narcotics for pain during my short visit with her. PDMP was reviewed and shows a total of 10 MME/day. I deferred any further treatment of pain to the primary team. Would be judicious with use of opiates or narcotics secondary to hypercapnia and chronic respiratory failure. Thank you very much for including us in the care of this patient. We will follow along with you at this time. Please refer to Dr. Scott's addendum for further recommendations. (2) Tobacco abuse: (3) Diabetes mellitus: Diabetes mellitus superintendent marine oil terminal insulin use: without prison use Diabetes mellitus type: type 2 Diabetic retinopathy severity: with unspecified retinopathy severity (4) COPD (chronic obstructive pulmonary disease): (5) Chronic low back pain: Admission and Anticipated Discharge Date Admission Date: August 28, 2020 Supervising Physician Co-Signing Physician Notes Patient seen and examined. EMR reviewed. Discussed with pulmonary SARY and agree with assessment and plan as noted. Patient was attempted on BiPAP last night. She states that there is no way that she could ever see herself using the device. I discussed alternative interfaces and desensitization as I think this is the ideal therapy for her tracheobronchial malacia and underlying potential sleep disordered breathing. The patient is quite adamant that she would never tolerate the mask or which she use the therapy. Even when I advised her that it would potentially prolong her life she states that she is not interested in pursuing any form of positive airway pressure. She thinks she is getting better. She is currently on facemask at high flows between 12 and 15 L/min. Her baseline is apparently 3 L/min. She states that she is going home tomorrow. She wishes to follow-up with her property technician in [place]. I advised her that I do not think she can be dismissed from the hospital at her current oxygen requirement although the patient may have been under treating her hypoxemia for quite some time. In addition, oxygen itself is unlikely to resolve her hypoxemia component that is driven by her concomitant hypercarbia. This is exacerbated by her weight and concomitant use of respiratory suppressant medications in the form of narcotics. She is not overtly bronchospastic and I think continued use of higher dose steroids will likely result in progression of her tracheobronchial malacia. Would recommend a fairly rapid taper. Patient will do better if she can get out of bed and sit in a chair and ambulate. This will improve basilar atelectasis. Subjective Attending: Dr. Scott Mrs. Gandara was seen and examined at bedside today. She is still in bed. She is encouraged to get out of bed to chair for all meals and then as tolerated. She was also advised to ambulate. She reports her breathing is much better today. She continues to require high flow supplemental oxygen with an FiO2 of 100%. She is agreeable to attempting to wean down to an Oxymask but is refusing CPAP/BiPAP. She denies any chest pain or tightness. She has no nausea or vomiting. She denies any significant cough but does have productive sputum that is whitish in color which she states is typical as an outpatient as well. She denies any fever or chills. She has no acute complaints. Review of Systems Review of Systems: All systems reviewed & are unremarkable except as noted in Subjective Physical Exam Physical Exam: GENERAL : No acute distress EYES: No icterus, gaze conjugate NOSE: No evidence of epistaxis MOUTH: No lesions or candidiasis NECK: Supple LUNGS: Good inspiratory effort. She does have some induced cough with deep inspiration. She continues with decreased breath sounds at the bases with some scattered bronchospasm. HEART: Regular, rate controlled ABDOMEN: Soft, NT, ND, BS Present EXTREMITIES: No LE edema, pedal pulses intact NEURO: A&OX3 Results & Data Results & Data ([facility]) Vital Signs (Past 12 Hours) Vital Signs Temp Pulse Pulse Resp BP Pulse Ox 08/31/20 11:56 75 20 88 L 08/31/20 11:52 36.6 C 67 20 130/70 82 L 08/31/20 09:25 90 08/31/20 08:57 60 90 08/31/20 07:58 36.4 C L 63 19 178/81 H 93 10/08/20 07:24 67 18 94 08/31/20 05:47 59 L 16 87 L 08/31/20 03:08 64 20 96 08/31/20 03:04 36.4 C L 65 24 177/94 H 95 Laboratory Results 08/31/20 06:12 08/31/20 06:12 Diagnostic Findings No further imaging since 08/30/2020 PG Care Time/CCT Total # of Minutes Spent Total Time Spent with Patient: Total time spent is greater than 50% in coordination of care (as documented) at patient's floor/unit and/or counseling patient: 30 minutes Coding Level of Care Code 22098 Subseq Hosp Care Lvl 2 Diagnoses Acute on chronic respiratory failure with hypoxia and hypercapnia J96.21; J96.22 Tobacco abuse Z72.0 Diabetes mellitus E11.9 Diabetes mellitus superintendent marine oil terminal insulin use: without superintendent marine oil terminal use Diabetes mellitus type: type 2 Diabetic retinopathy severity: with unspecified retinopathy severity COPD (chronic obstructive pulmonary disease) J44.9 Chronic low back pain M54.5; G89.29
[2020-08-31] MEDS ORDERED: ALBUT/IPRATROP 3MG/0.5MG NEB 3 ML VIAL NEB PRN (14:03)
--- NOTE | 2020-08-31 14:07 | Hospitalist Progress Note ---
Date of Service August 31, 2020 Assessment & Plan (1) Pneumonia: CT chest on 08/28 showed right middle lobe airspace opacity and additional mild airspace opacities throughout the lungs which favored an infectious process. - DuoNebs standing and PRN - Pulmonary consulted on 08/30 -> Recommend quick taper of steroids and antibiotics. - Down to cefuroxime, azithromycin, and prednisone 30mg by 08/31. She feels she is breathing fine, but is requiring 15 L via Oxymask to keep saturation at 88%. She is consistently declining high-flow or BiPap. - Discharge as soon as we can wean her to something close to her home 3L [place]. (2) COPD exacerbation: See above (3) Acute on chronic respiratory failure with hypoxia and hypercapnia: Acute on chronic respiratory failure with hypoxia and hypercapnia. - Due to pneumonia and COPD exacerbation (4) Hypertension: BP presently 150/80. - Continue aspirin, carvedilol, diltiazem, and losartan (5) Diabetes mellitus: A1c was 8.5% this admission. - Hold metformin and Jardiance due inpatient status - Sliding scale insulin - Quite high on steroids. Will tighten her meal-time coverage. (6) Hyperlipidemia: - Continue atorvastatin (7) DVT prophylaxis: Heparin 5000 units Q12h Admission and Anticipated Discharge Date Admission Date: August 28, 2020 Subjective Reports she is breathing fine today. She requests more pain medication. Reports no fevers/chills, chest pain, shortness of breath, abdominal pain, nausea, or vomiting. Physical Exam Constitutional: WD/WN, vitals as above Eyes: EOM intact bilaterally; no conjunctival abnormality ENMT: external ear and nose normal, oropharynx normal Neck: trachea midline, no thyromegaly normal visual inspection Respiratory: no respiratory distress, no labored breathing, no cough and not tachypneic Auscultation: + diminished lung sounds and + rhonchi Cardiovascular: RRR, no murmur, no edema Gastrointestinal (Abdomen): Inspection/Auscultation: abdomen normal to inspection; abdomen not distended Musculoskeletal: no cyanosis or clubbing, extremities motor strength 5/5 Skin: no rashes, warm and dry Neurologic: moves all extremities and awake Psychiatric: Orientation: alert, oriented to person and cooperative Results & Data Results & Data ([facility]) Vital Signs (Past 12 Hours) Vital Signs Temp Pulse Pulse Resp BP Pulse Ox 08/31/20 11:56 75 20 88 L 08/31/20 11:52 36.6 C 67 20 130/70 82 L 08/31/20 09:25 90 08/31/20 08:57 60 90 08/31/20 07:58 36.4 C L 63 19 178/81 H 93 08/31/20 07:24 67 18 94 08/31/20 05:47 59 L 16 87 L 08/31/20 03:08 64 20 96 08/31/20 03:04 36.4 C L 65 24 177/94 H 95 PG Care Time/CCT Total # of Minutes Spent Total Time Spent with Patient: Total time spent is greater than 50% in coordination of care (as documented) at patient's floor/unit and/or counseling patient: Coding Level of Care Code 55160 Subseq Hosp Care Lvl 2 Diagnoses Pneumonia J18.9 COPD exacerbation J44.1 Acute on chronic respiratory failure with hypoxia and hypercapnia J96.21; J96.22 Hypertension I10 Diabetes mellitus E11.9 Diabetes mellitus type: type 2 Diabetes mellitus intermediate accountant insulin use: without intermediate accountant use Diabetic retinopathy severity: with unspecified retinopathy severity Hyperlipidemia E78.5 DVT prophylaxis Z29.9 (1) Diabetes mellitus Diabetes mellitus type: type 2 Diabetes mellitus penitentiary insulin use: without intermediate accountant use Diabetic retinopathy severity: with unspecified retinopathy severity
[2020-08-31] MEDS: FORMOTEROL 20 MCG/2 ML VIAL NEB SCH ×2 (16:11→20:07)
[2020-09-01] MEDS: HYDROCODONE/ACETAMOPHEN 5/325MG TAB PO PRN ×3 (06:01→20:36)
[2020-09-01] MEDS: FORMOTEROL 20 MCG/2 ML VIAL NEB SCH ×2 (07:17→19:07)
[2020-09-01] MEDS: BUDESONIDE 0.5 MG/2 ML VIAL (PULMICORT) INH SCH ×2 (07:18→19:07)
[2020-09-01 08:02] LABS: Allen Test Pos (Pos); Base Excess ABG 2.7 mEq/L (-9-1.8); HCO3 ABG 28 mmol/L (19-24); Oxygen Saturation ABG 87.7 % (90-95); PCO2 ABG 45 mmHg (35-46); PO2 ABG 58 mmHg (80-95); pH ABG 7.41 (7.35-7.45)
[2020-09-01 08:08] LABS: Hematocrit (blood only) 41.2 % (37-47); Hemoglobin 12.2 g/dL (12.0-16.0); Mean Corpuscular Hemoglobin 25.7 pg (25-34); Mean Corpuscular Hgb Conc 29.6 g/dL (32-36); Mean Corpuscular Volume 86.7 fL (80-100); Mean Platelet Volume 10.4 fL (7.4-10.4); Nucleated RBC # (auto) 0.03 K/uL (0-0); Nucleated RBC % (auto) 0.3 %; Platelet Count 409 K/uL (130-400); RDW Coefficient of Variation 17.2 % (11.5-14.5); RDW Standard Deviation 55.8 fL (36.4-46.3); Red Blood Count 4.75 M/uL (4.2-5.4); White Blood Count 12.96 K/uL (4.8-10.8)
[2020-09-01] MEDS: traMADol HCL 50 MG TABLET PO PRN ×2 (08:12→16:24)
[2020-09-01] MEDS: INSULIN ASPART 100 UNITS/ML 3 ML PEN SC SCH ×4 (08:13→21:00)
[2020-09-01] MEDS: dilTIAZem HCL 120 MG CAPCR PO SCH (08:14)
[2020-09-01] MEDS: LOSARTAN POTASSIUM 50 MG TAB PO SCH (08:15)
[2020-09-01] MEDS: cefUROXime axetil 250 MG TABLET PO SCH ×2 (08:15→20:37)
[2020-09-01] MEDS: ASPIRIN 81 MG ECTAB PO SCH (08:16)
[2020-09-01] MEDS: HEPARIN SOD 5,000 UNIT/0.5 ML VIAL SQ SCH ×2 (08:16→20:36)
[2020-09-01] MEDS: carvediloL 12.5 MG TAB PO SCH ×2 (08:16→20:36)
[2020-09-01] MEDS: UMECLIDINIUM BROMIDE 62.5MCG/BLISTER 7 PUFFS/INHALER INH SCH (08:17)
[2020-09-01] MEDS: ATORVASTATIN 40 MG TAB PO SCH (08:17)
[2020-09-01] MEDS: AZITHROMYCIN 250 MG TAB PO SCH (08:18)
[2020-09-01] MEDS: predniSONE 10 MG TABLET PO SCH (08:18)
[2020-09-01 08:22] LABS: BUN Creatinine Ratio 28.9 (10-20); Calcium 9.2 mg/dl (8.5-10.1); Creatinine Clr Calc Pharmacy 56.2 ml/min; Est GFR (African American) 72.2; Est GFR (Non-African American) 62.3; Potassium 4.6 mmol/L (3.5-5.1)
--- NOTE | 2020-09-01 12:10 | Pulmonology Progress Note ---
Date of Service September 01, 2020 Assessment & Plan (1) Acute on chronic respiratory failure with hypoxia and hypercapnia: Impression: 70-year-old female that is a chronic every day sm ludivinajose luis. She reports that she follows with pulmonology [place] and I suspect this is [facility]. Records have been requested but have not been supplied yet. Admitted with progressive shortness of breath, hypoxemic and hypercarbic respiratory failure. Recommendations: 1. Acute on chronic respiratory failure: This is likely multifactorial. I suspect she has a component of obesity hypoventilation syndrome versus hypercarbic respiratory failure. We have tried to use noninvasive positive pressure ventilation however the patient is quite adamant that she will not comply with this. She states she would rather . She is not open to the idea of desensitization or an overnight sleep study. Unfortunately her hypercarbia is likely contributing to her hypoxemia and will make it very difficult to maintain oxygen saturations without higher levels of supplemental oxygen. 2. Pneumonitis: Completing course of azithromycin and cefuroxime. Clinically doubt pneumonia 3. Hypercapnia: Recommended outpatient PSG which the patient declines. She is already established with pulmonary group in [place] and recommend she follow- up with them as an outpatient. 4. Tobacco abuse: Smoking cessation recommended 5. 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 This would also be benefited by a positive airway pressure. She may have right middle lobe syndrome with calcified lymph nodes at the origin of the right middle lobe bronchus. Would not recommend bronchoscopy as it would not exchange teller. 6. Chronic low back pain: Narcotics will significantly worsen the patient's hypercarbic respiratory failure and hypoxemic respiratory failure. Patient would do better by increasing activity and being out of bed up to the chair. Would wean oxygen saturations to maintain levels of 88%. The patient does not appear particularly interested in pursuing additional pulmonary work-up or evaluation at this time so we will sign off. She can follow-up with her pulmonary group in [place] (2) Tobacco abuse: (3) Diabetes mellitus: Diabetes mellitus type: type 2 Diabetes mellitus custodial insulin use: without custodial use Diabetic retinopathy severity: with uns pecified retinopathy severity (4) COPD (chronic obstructive pulmonary disease): (5) Chronic low back pain: Admission and Anticipated Discharge Date Admission Date: August 28, 2020 Subjective Patient seen and examined. EMR reviewed. The patient states that she is breathing fine currently. She is asking about going home. It appears that she has been weaned down to 7 L facemask and her current oxygen saturations are about 85 to 88%. She does not report cough wheezing or sputum production. Review of Systems Review of Systems: Unchanged from prior Physical Exam Constitutional: WD/WN, vitals as above Eyes: EOM intact bilaterally; no conjunctival abnormality ENMT: external ear and nose normal, oropharynx normal Neck: trachea midline, no thyromegaly normal visual inspection Respiratory: no respiratory distress, no labored breathing, no cough and not tachypneic Auscultation: + diminished lung sounds and + rhonchi Cardiovascular: RRR, no murmur, no edema Gastrointestinal (Abdomen): Inspection/Auscultation: abdomen normal to inspection; abdomen not distended Musculoskeletal: no cyanosis or clubbing, extremities motor strength 5/5 Skin: no rashes, warm and dry Neurologic: moves all extremities and awake Psychiatric: Orientation: alert, oriented to person and cooperative Results & Data Results & Data ([facility]) Vital Signs (Past 12 Hours) Vital Signs Temp Pulse Resp BP BP Pulse Ox 09/01/20 11:55 36.4 C L 60 19 109/64 93 09/01/20 10:52 86 L 09/01/20 07:43 36.5 C 62 19 174/80 H 88 L 09/01/20 07:18 60 18 90 09/01/20 03:08 36.4 C L 65 20 182/98 H 93 Laboratory Results 09/01/20 07:49 09/01/20 07:49 Diagnostic Findings No new films PG Care Time/CCT Total # of Minutes Spent Total Time Spent with Patient: Total time spent is greater than 50% in coordination of care (as documented) at patient's floor/unit and/or counseling patient: Coding Level of Care Code 57584 Subseq Hosp Care Lvl 2 Diagnoses Acute on chronic respiratory failure with hypoxia and hypercapnia J96.21; J96.22 Tobacco abuse Z72.0 Diabetes mellitus E11.9 Diabetes mellitus type: type 2 Diabetes mellitus custodial insulin use: without custodial use Diabetic retinopathy severity: with unspecified retinopathy severity COPD (chronic obstructive pulmonary disease) J44.9 Chronic low back pain M54.5; G89.29
--- NOTE | 2020-09-01 23:30 | Hospitalist Progress Note ---
Date of Service September 01, 2020 Assessment & Plan (1) Pneumonia: CT chest on 08/28 showed right middle lobe airspace opacity and additional mild airspace opacities throughout the lungs which favored an infectious process. - DuoNebs standing and PRN - Pulmonary consulted on 08/30 -> Recommend quick taper of steroids and antibiotics. - Down to cefuroxime, azithromycin, and prednisone 30mg by 08/31. She feels she is breathing fine, but is requiring 10 L via Oxymask to keep saturation at 88%. She is consistently declining high-flow or BiPap. - Discharge as soon as we can wean her to something close to her home 3L [place]. Currently still requiring more oxygen. will continue to monitor. (2) COPD exacerbation: See above (3) Acute on chronic respiratory failure with hypoxia and hypercapnia: Acute on chronic respiratory failure with hypoxia and hypercapnia. - Due to pneumonia and COPD exacerbation (4) Hypertension: BP presently 150/80. - Continue aspirin, carvedilol, diltiazem, and losartan (5) Diabetes mellitus: A1c was 8.5% this admission. - Hold metformin and Jardiance due inpatient status - Sliding scale insulin - Quite high on steroids. Will tighten her meal-time coverage. (6) Hyperlipidemia: - Continue atorvastatin (7) DVT prophylaxis: Heparin 5000 units Q12h Admission and Anticipated Discharge Date Admission Date: August 28, 2020 Subjective 70 yo female reports doing well. Eventhough she is still requiring more oxygen. Review of Systems Review of Systems: All systems reviewed & are unremarkable except as noted in HPI & below Physical Exam Physical Exam: Constitutional: WD/WN, vitals as above Eyes: EOM intact bilaterally; no conjunctival abnormality ENMT: external ear and nose normal, oropharynx normal Neck: trachea midline, no thyromegaly normal visual inspection Respiratory: no respiratory distress, no labored breathing, no cough and not tachypneic Auscultation: + diminished lung sounds and + rhonchi Cardiovascular: RRR, no murmur, no edema Gastrointestinal (Abdomen): Inspection/Auscultation: abdomen normal to inspection; abdomen not distended Musculoskeletal: no cyanosis or clubbing, extremities motor strength 5/5 Skin: no rashes, warm and dry Neurologic: moves all extremities and awake Psychiatric: Orientation: alert, oriented to person and cooperative Results & Data Results & Data ([facility]) Vital Signs (Past 12 Hours) Vital Signs Temp Pulse Resp BP BP Pulse Ox 09/01/20 23:12 36.6 C 61 19 158/77 H 97 09/01/20 20:43 36.3 C L 61 24 176/93 H 96 09/01/20 19:09 63 18 98 09/01/20 15:13 36.8 C 61 19 154/78 H 88 L 09/01/20 11:55 36.4 C L 60 19 109/64 93 PG Care Time/CCT Total # of Minutes Spent Total Time Spent with Patient: Total time spent is greater than 50% in coordination of care (as documented) at patient's floor/unit and/or counseling patient: Coding Level of Care Code 33186 Subseq Hosp Care Lvl 3 Diagnoses Pneumonia J18.9 COPD exacerbation J44.1 Acute on chronic respiratory failure with hypoxia and hypercapnia J96.21; J96.22 Hypertension I10 Diabetes mellitus E11.9 Diabetes mellitus terminal manager insulin use: without usp use Diabetes mellitus type: type 2 Diabetic retinopathy severity: with unspecified retinopathy severity Hyperlipidemia E78.5 DVT prophylaxis Z29.9 Time Spent (min) 35 (1) Diabetes mellitus Diabetes mellitus terminal manager insulin use: without terminal manager use Diabetes mellitus type: type 2 Diabetic retinopathy severity: with unspecified retinopathy severity
[2020-09-02] MEDS: HYDROCODONE/ACETAMOPHEN 5/325MG TAB PO PRN ×2 (02:22→10:03)
[2020-09-02] MEDS ORDERED: SODIUM CHLORIDE 0.65% NA SOLN 45 ML (OCEAN) ONE (06:08)
[2020-09-02] MEDS: BUDESONIDE 0.5 MG/2 ML VIAL (PULMICORT) INH SCH (07:13)
[2020-09-02] MEDS: FORMOTEROL 20 MCG/2 ML VIAL NEB SCH (07:13)
[2020-09-02] MEDS: INSULIN ASPART 100 UNITS/ML 3 ML PEN SC SCH ×2 (08:05→12:12)
[2020-09-02] MEDS: UMECLIDINIUM BROMIDE 62.5MCG/BLISTER 7 PUFFS/INHALER INH SCH (08:06)
[2020-09-02] MEDS: carvediloL 12.5 MG TAB PO SCH (08:07)
[2020-09-02] MEDS: cefUROXime axetil 250 MG TABLET PO SCH (08:07)
[2020-09-02] MEDS: dilTIAZem HCL 120 MG CAPCR PO SCH (08:07)
[2020-09-02] MEDS: ASPIRIN 81 MG ECTAB PO SCH (08:08)
[2020-09-02] MEDS: LOSARTAN POTASSIUM 50 MG TAB PO SCH (08:08)
[2020-09-02] MEDS: HEPARIN SOD 5,000 UNIT/0.5 ML VIAL SQ SCH (08:08)
[2020-09-02] MEDS: ATORVASTATIN 40 MG TAB PO SCH (08:09)
[2020-09-02] MEDS: predniSONE 10 MG TABLET PO SCH (08:10)
[2020-09-02] MEDS: traMADol HCL 50 MG TABLET PO PRN ×2 (08:14→16:02)
--- NOTE | 2020-09-09 15:25 | Discharge Summary ---
Date of Service September 02, 2020 Admission HPI Per Admitting Provider The patient is a 70-year-old female with a past medical history including chronic low back pain, overweight, AAA, left peroneal nerve palsy, 3 L oxygen dependency COPD, history of pneumonia, osteoarthritis, hyperlipidemia, hypertension, diabetes mellitus. She presents as noted above. She denies any recent travel or sick exposures including to COVID. Patient did undergo COVID-19 testing while in the ED, which was negative. Due to her severe hypoxemia, she was placed on BiPAP relatively early on during her ED stay, with improvement in symptoms. While in the ED, she did receive Solu-Medrol 60 mg IV, a DuoNeb treatment, and BiPAP as noted. Principal Diagnosis Pneumonia Discharge Exam Constitutional: WD/WN, vitals as above Eyes: EOM intact bilaterally; no conjunctival abnormality ENMT: external ear and nose normal, oropharynx normal Neck: trachea midline, no thyromegaly normal visual inspection Respiratory: no respiratory distress, no labored breathing, no cough and not tachypneic Auscultation: + diminished lung sounds Cardiovascular: RRR, no murmur, no edema Gastrointestinal (Abdomen): Inspection/Auscultation: abdomen normal to inspection; abdomen not distended Musculoskeletal: no cyanosis or clubbing, extremities motor strength 5/5 Skin: no rashes, warm and dry Neurologic: moves all extremities and awake Psychiatric: Orientation: alert, oriented to person and cooperative Discharge Data Allergies Allergy/AdvReac Type Severity Reaction Status Date / Time diflunisal Allergy Unknown HEART RACES Verified 10/26/16 19:17 Consultations 08/28/20 22:59 ED Decision to Admit Stat 08/29/20 00:53 Consult Case Management - Discharge Planning Routine 08/29/20 18:33 Consult Pulmonology Routine Ordered Studies 08/28/20 22:49 CT chest wo con Urgent Hospital Course (1) Pneumonia: CT chest on 08/28 showed right middle lobe airspace opacity and additional mild airspace opacities throughout the lungs which favored an infectious process. - DuoNebs standing and PRN - Pulmonary consulted on 08/30 -> Recommend quick taper of steroids and antibiotics. - Down to cefuroxime, azithromycin, and prednisone 30mg by 08/31. She feels she is breathing fine, but is requiring 10 L via Oxymask to keep saturation at 88%. -Patient agreeable to high flow oxygen at home. However was able to wean her down to nasal cannula while here. -Patient agreeable to discharge (2) COPD exacerbation: See above (3) Acute on chronic respiratory failure with hypoxia and hypercapnia: Acute on chronic respiratory failure with hypoxia and hypercapnia. - Due to pneumonia and COPD exacerbation (4) Hypertension: BP presently 150/80. - Continue aspirin, carvedilol, diltiazem, and losartan (5) Diabetes mellitus: A1c was 8.5% this admission. - Hold metformin and Jardiance due inpatient status - Sliding scale insulin - Quite high on steroids. Will tighten her meal-time coverage. (6) Hyperlipidemia: - Continue atorvastatin (7) DVT prophylaxis: Heparin 5000 units Q12h Total Time Total Time Spent Total Time Spent (In Minutes): 32 Total Time Includes: Examination of the Patient, Discharge Planning and Medication Reconciliation Discharge Plan Discharge Items Patient Disposition: Home - Self-Care Reason For Visit: ACUTE RESPIRATORY FAILURE WITH HYPOXIA Discharge Diagnosis: Acute respiratory failure with hypoxia Activity: Resume your previous activity Non-emergency contact: Primary Care Provider Call non-emergency contact if: you have any medication questions Follow-up/Referrals: Rosi Borges CRNP [Outside Practitioners] - 09/08/20 10:00 am Diet: Carb Consistent or DM2 and Heart Healthy Addtl Attending Provider Instructions: You have been hospitalized for an acute medical problem. During your stay at [facility], we have made an effort to correct the problem that brought you to the hospital while keeping you as comfortable as possible. Medications were used to bring your condition under control and your discharge instructions will include directions for any medications you should take after leaving the hospital. Please make sure you see your Primary Care Provider as part of your follow up plan. You were treated with azithromycin and cefuroxime. You SHOULD FOLLOWUP WITH Pulmonary in [place]. Pending Studies at Discharge: No Stand-Alone Forms: My [facility] itBit, Smoking Cessation Medications and DC Order Prescriptions: New prednisone 10 mg Tablet 10 mg PO QAM Qty: 6 RF: 0 Perforomist 20 mcg/2 mL Solution For Nebulization 20 mcg NEB Q12R 30 Days Qty: 120 RF: 0 Incruse Ellipta 62.5 mcg/actuation Blister With Device 1 puff inhalation DAILY Qty: 1 RF: 0 cefuroxime axetil 250 mg Tablet 250 mg PO BID Qty: 1 RF: 0 Continued atorvastatin 40 mg tablet 40 mg PO DAILY RF: 0 carvedilol 12.5 mg tablet 12.5 mg PO BID RF: 0 tramadol 50 mg tablet 50 mg PO BID PRN (Reason: Pain) RF: 0 budesonide 0.5 mg/2 mL suspension for nebulization 0.5 mg inhalation BID RF: 0 diltiazem HCl [Cartia XT] 120 mg capsule,extended release 24hr 120 mg PO DAILY RF: 0 aspirin [Aspirin Low Dose] 81 mg Tablet,Delayed Release (Dr/Ec) 81 mg PO DAILY RF: 0 albuterol sulfate 90 mcg/actuation HFA aerosol inhaler 2 puff INHALATION Q6 PRN (Reason: Shortness Of Breath Or Wheezing) RF: 0 losartan 50 mg tablet 50 mg PO DAILY RF: 0 metformin 1,000 mg tablet 1,000 mg PO BID RF: 0 Jardiance 10 mg tablet 10 mg PO DAILY RF: 0 Discontinued ipratropium-albuterol 0.5 mg-3 mg(2.5 mg base)/3 mL solution for nebulization 3 ml INHALATION UD PRN (Reason: Wheezing) RF: 0 Discharge Orders: Discharge Order (Routine); Ordered 09/02/20 Ordered By: Jigar Hein Admission Data Admit Date/Time: 08/28/20 23:41 Attending Provider: Jigar Hein Admit Provider: Danie Mckay Primary Care Provider: Karo Champagne Other Providers: Epi Ernst ; Hunter Scott Other Interventions: Discharge Summary Assessment (RN) Last Done: 09/02/20 13:23 Coding Level of Care Code D/C Day Management >30 mins Diagnoses Pneumonia J18.9 COPD exacerbation J44.1 Acute on chronic respiratory failure with hypoxia and hypercapnia J96.21; J96.22 Hypertension I10 Diabetes mellitus E11.9 Diabetes mellitus type: type 2 Diabetes mellitus buttermaker continuous churn insulin use: without buttermaker continuous churn use Diabetic retinopathy severity: with unspecified retinopathy severity Hyperlipidemia E78.5 DVT prophylaxis Z29.9 Time Spent (min) 32
== END 2020-09-02 17:37 | disposition home or self-care (01) | DRG 193 ==
LOC: ED 20:01 → SUATTDRO 23:41 → 2S 23:41

== ENCOUNTER 2020-09-25 22:48 | Inpatient (IN) ==
[2020-09-25] MEDS ORDERED: ALBUT/IPRATROP 3MG/0.5MG NEB 3 ML VIAL INH STA (23:17)
[2020-09-25] MEDS ORDERED: methylPREDNISolone 125 MG/2 ML VIAL IV STA (23:17)
[2020-09-25 23:33] LABS: Basophils # (auto) 0.02 K/uL (0-0.2); Basophils % (auto) 0.2 %; Eosinophils # (auto) 0.24 K/uL (0-0.5); Eosinophils % (auto) 2.3 %; Hematocrit (blood only) 39.9 % (37-47); Hemoglobin 11.8 g/dL (12.0-16.0); Immature Granulocytes # (auto) 0.06 K/uL (0.00-0.02); Immature Granulocytes % (auto) 0.6 %; Lymphocytes # (auto) 1.44 K/uL (1.2-3.4); Lymphocytes % (auto) 13.9 %; Mean Corpuscular Hemoglobin 27.1 pg (25-34); Mean Corpuscular Hgb Conc 29.6 g/dL (32-36); Mean Corpuscular Volume 91.7 fL (80-100); Mean Platelet Volume 9.9 fL (7.4-10.4); Monocytes # (auto) 0.81 K/uL (0.11-0.59); Monocytes % (auto) 7.8 %; Neutrophils # (auto) 7.82 K/uL (1.4-6.5); Neutrophils % (auto) 75.2 %; Platelet Count 448 K/uL (130-400); RDW Standard Deviation 61.2 fL (36.4-46.3); Red Blood Count 4.35 M/uL (4.2-5.4); White Blood Count 10.39 K/uL (4.8-10.8)
[2020-09-25 23:45] LABS: INR 1.1 (0.9-1.1); Partial Thromboplastin Time 27.3 Seconds (21.0-31.0); Prothrombin Time 11.3 Seconds (9.0-12.0)
[2020-09-25 23:52] LABS: Alanine Aminotransferase 15 U/L (12-78); Albumin Level 3.3 gm/dl (3.4-5.0); Aspartate Aminotransferase 12 U/L (15-37); BUN Creatinine Ratio 20.1 (10-20); Blood Urea Nitrogen 29 mg/dl (7-18); Calcium 9.6 mg/dl (8.5-10.1); Carbon Dioxide 30 mmol/L (21-32); Chloride 104 mmol/L (98-107); Creatinine Clr Calc Pharmacy 35.9 ml/min; Est GFR (African American) 43.1; Est GFR (Non-African American) 37.2; Glucose 159 mg/dl (70-99); Magnesium 2.2 mg/dl (1.8-2.4); Potassium 5.2 mmol/L (3.5-5.1); Sodium 140 mmol/L (136-145)
[2020-09-25 23:57] LABS: Albumin Globulin Ratio 0.8 (0.9-2); Alkaline Phosphatase 103 U/L (45-117); Bilirubin,Total 0.3 mg/dl (0.2-1); NT Pro B Type Natriuretic Pept 206 pg/ml (0-900); Total Protein 7.3 gm/dl (6.4-8.2); Troponin I < 0.015 ng/ml (0-0.045)
[2020-09-26 00:08] LABS: HCO3 ABG 26 mmol/L (19-24); Oxygen Saturation ABG 94.1 % (90-95); PCO2 ABG 51 mmHg (35-46); PO2 ABG 75 mmHg (80-95); pH ABG 7.33 (7.35-7.45)
[2020-09-26 00:10] LABS: Allen Test Pos (Pos)
[2020-09-26] MEDS ORDERED: CEFEPIME 2,000 MG/20 ML VIAL IV STA (00:23)
[2020-09-26 00:41] LABS: Adenovirus PCR Not Detected (NotDetected); Bordetella parapertussis PCR Not Detected (NotDetected); Bordetella pertussis PCR Not Detected (NotDetected); Chlamydia pneumoniae PCR Not Detected (NotDetected); Coronavirus 229E PCR Not Detected (NotDetected); Coronavirus CoV-2 (COVID19)PCR Not Detected (NotDetected); Coronavirus HKU1 PCR Not Detected (NotDetected); Coronavirus NL63 PCR Not Detected (NotDetected); Coronavirus OC43PCR Not Detected (NotDetected); Human Metapneumovirus PCR Not Detected (NotDetected); Influenza A PCR Not Detected (NotDetected); Influenza B PCR Not Detected (NotDetected); Mycoplasma pneumoniae PCR Not Detected (NotDetected); Parainfluenza Virus 1 PCR Not Detected (NotDetected); Parainfluenza Virus 2 PCR Not Detected (NotDetected); Parainfluenza Virus 3 PCR Not Detected (NotDetected); Parainfluenza Virus 4 PCR Not Detected (NotDetected); Respiratory Syncytial VirusPCR Not Detected (NotDetected); Rhinovirus/Enterovirus PCR Not Detected (NotDetected)
--- NOTE | 2020-09-26 01:43 | History & Physical Report ---
Date of Service September 26, 2020 Assessment & Plan (1) AMS (altered mental status): Daniella is a 70-year-old female with a past medical history of obesity, abdominal aortic aneurysm, COPD with baseline 3 L oxygen dependency, recurrent pneumonia, osteoarthritis, diabetes, and chronic low back pain with a recent hospital admission from 08/29/2210 hypoxic respiratory failure requiring BiPAP. Altered mental status, unclear etiology Patient with recent hospital admission for similar presentation with respiratory failure requiring BiPAP Patient unable to give meaningful history on exam ABG 7.3 /, disproportionate with level of altered mental status Patient with tramadol and no other narcotics medication list CThead pending Respiratory management as below U tox pending Tylenol pending, salicylate pending Ammonia pending Acute hypoxic hypercarbic respiratory failure Patient with COPD and baseline 3 L oxygen requirement Recent treatment for pneumonia and an admission for exacerbation from 08/29- 09/02 CTchest pending Pro-Wlider pending Leukocytosis Received empiric cefepime in emergency department, further antibiotics pending CT results DuMarcella Received Solu-Medrol 60 mg in ED Continue BiPAP Hyperkalemia Patient with elevated creatinine and hyperkalemic to 5.1 EKG with mildly peaked T waves, peaked appearing on monitor Calcium gluconate 1 g, insulin IV 10 units plus D50 1 amp, 500 cc bolus Electrolytes at least every 8 hours TATY Acute increase in creatinine from baseline of normal to 1.44 BUN/creatinine ratio 20.1 No signs of fluid overload, proBNP normal Fluid bolus given, reassess breathing status/fluid status once arrival to floor BMP daily Hyperlipidemia/hypertension Oral atorvastatin, carvedilol, diltiazem, losartan, aspirin held for mental status while n.p.o. Normotensive on admission, slightly low for patient's normal Diabetes Hold home Metformin and Jardiance Weight-based SSI, glargine 5 units twice daily, aspart SSI CF 60, ratio 20. Basal reduced 25% while n.p.o. Glucose checks AC/at bedtime or every 6 hours while NPO/100 BMP daily DVT prophylaxis: Lovenox Diet: N.p.o. due to mental status. Reassess fluid versus respiratory status and bolus as needed Disposition: PCU CODE STATUS: Full code per prior records, unable to be discussed with patient at time of admission (2) Tobacco abuse: (3) Diabetes mellitus: (4) COPD (chronic obstructive pulmonary disease): (5) Hypertension: (6) Hyperlipidemia: (7) Acute on chronic respiratory failure with hypoxia and hypercapnia: (8) Hypoxia: (9) Acute hypercapnic respiratory failure: (10) Breath shortness: History of Present Illness Chief Complaint: Acute Hypoxic Hypercarbic Respiratory Failure Primary Care Provider: BRET Bull History is limited, patient obtunded on exam. Below is gathered from collateral. By collateral review Daniella is a 70-year-old female with a past medical history of obesity, abdominal aortic aneurysm, COPD with baseline 3 L oxygen dependency, recurrent pneumonia, osteoarthritis, diabetes, and chronic low back pain with a recent hospital admission from 08/29/2210 hypoxic respiratory failure requiring BiPAP. Per report she was evaluated by EMS multiple times earlier in the day before being transported to the emergency department for confusion respiratory failure Allergies Allergy/AdvReac Type Severity Reaction Status Date / Time diflunisal Allergy Unknown HEART RACES Verified 09/25/20 23:59 Home Medications Home Medications Medication Instructions Recorded Confirmed Type Jardiance 10 mg PO DAILY 08/28/20 09/25/20 History albuterol sulfate 2 puff INHALATION Q6 PRN 08/28/20 09/25/20 History aspirin [Aspirin Low Dose] 81 mg PO DAILY 08/28/20 09/25/20 History atorvastatin 40 mg PO DAILY 08/28/20 09/25/20 History budesonide 0.5 mg INHALATION BID 08/28/20 09/25/20 History carvedilol 12.5 mg PO BID 08/28/20 09/25/20 History diltiazem HCl [Cartia XT] 120 mg PO DAILY 08/28/20 09/25/20 History losartan 50 mg PO DAILY 08/28/20 09/25/20 History metformin 1,000 mg PO BID 08/28/20 09/25/20 History tramadol 50 mg PO BID PRN 08/28/20 09/25/20 History formoterol fumarate [Perforomist] 20 mcg NEB Q12R 30 Days #120 ml 09/02/20 09/25/20 Rx umeclidinium [Incruse Ellipta] 1 puff INHALATION DAILY #1 ea 09/02/20 09/25/20 Rx ipratropium-albuterol 3 ml INHALATION QID PRN 09/25/20 09/25/20 History Past Med/Surg History Medical History (Updated 09/26/20 @ 02:01 by Mj Ann MD) AAA (abdominal aortic aneurysm) Chronic low back pain COPD (chronic obstructive pulmonary disease) Diabetes mellitus Diaphragmatic hernia (10/31/11) History of knee replacement Hyperlipidemia Hypertension Left peroneal nerve palsy Tobacco abuse Surgical History (Updated 08/30/20 @ 08:56 by Koby Hunt PA-C) H/O Achilles tendon repair (~2007) H/O: hysterectomy History of appendectomy History of bilateral oophorectomies History of lithotripsy (~2007) Hx of cholecystectomy Family History (Updated 08/30/20 @ 08:56 by Koby Hunt PA-C) Other Family history non-contributory Social History Smoking Status: Current every day smoker Tobacco Type: Cigarettes Hx Alcohol Use: No Hx Substance Use: No Preferred Language: Austrian Communication Ability: Effective Oracle Architect Required: No Beliefs That Will Affect Care: None Current Living Situation: Spouse Feels Safe at Home: Yes Assistive Devices: Oxygen - Continuous Review of Systems Review of Systems: Unobtainable due to reduced consciousness Physical Exam Physical Exam: General: Obtunded. Arouses transiently to orbital pressure before falling back asleep. HEENT: Atraumatic, normocephalic. PERLAA. Poor dentition with dental caries. Pulm: Diffuse coarse breath sounds. On BiPAP. Symmetrical chest rise. Cardiac: RRR, -mrg. Radial pulses intact and symmetrical. Abdominal: Nontender, nondistended, soft. BS present. Extremities: Warm, dry. Sensation/strength testing unable to be assessed. Oncomycosis present. Results & Data Results & Data ([facility]) Vital Signs (Past 12 Hours) Vital Signs Temp Pulse Pulse Resp BP BP Pulse Ox 09/26/20 01:23 92 H 22 117/64 94 09/26/20 00:38 95 H 24 134/67 94 09/25/20 23:48 99 H 28 H 96 09/25/20 23:20 97 H 101 H 31 H 160/69 H 96 09/25/20 23:10 96 09/25/20 23:00 96 09/25/20 22:59 37.3 C 105 H 23 151/69 H 96 Supervising Physician Co-Signing Physician Notes Patient seen and examined, chart reviewed, case discussed with Dr. Ann and I agree with his assessment and plan as documented above. Briefly, patient is a 70yo f presenting with AMS. On exam patient is somnolent, arousable, answers to name and location, follows some commands HEENT - NC/AT, BiPAP in place, neck supple Heart - +S1/S2, regular, 3/6 DIAN at LSB Lungs - Diminished breath sounds with scattered end-expiratoyr wheezes Abd - +BS, soft, mildly tender with deep palpation, no rebound/guarding/peritoneal signs Ext - No edema Labs and images reviewed. Assessment/Plan - 70yo F with O2 dependent COPD presenting with AMS, ?exacerbat ion with hypoxic/hypercarbic RF -Continued workup for AMS - CT, Ammonia -BiPAP, wean as tolerated -Steroids, Nebs -Empiric abx - follow cultures -Remainder of plan as above Resident Activity Tracking Resident Involvement: Resident Care Provided Care Provided: Adult Hospital Medicine (1) Diabetes mellitus Diabetes mellitus terminal clerk insulin use: without group home use Diabetes mellitus type: type 2 Diabetic retinopathy severity: with unspecified retinopathy severity
[2020-09-26] MEDS ORDERED: DEXTROSE 50% 50 ML SYRINGE IV ONE (01:54)
[2020-09-26] MEDS ORDERED: CALCIUM GLUCONATE 10% 1,000 MG in SODIUM CHLORIDE 0.9% 50 ML IV STA (01:54)
[2020-09-26] MEDS ORDERED: NovoLIN-R INSULIN PER UNIT CHARGE IV STA (01:54)
[2020-09-26 02:39] LABS: Appearance Urine Cloudy (Clear); Bacteria Urine Automated 2+ (Negative); Bilirubin Urine Negative (Negative); Blood Urine Trace (Negative); Color Urine Yellow; Epithelial Cell Urine Auto 20-30 /lpf (0-5); Glucose Urine UA 3+ (Negative); Ketones Urine 2+ (Negative); Leukocyte Esterase Urine 1+ (Negative); Nitrite Urine Positive (Negative); Protein Urine 1+ (Negative); Specific Gravity Urine 1.027 (1.000-1.030); Urobilinogen Urine Negative (Negative); WBC Urine Automated >30 /hpf (0-5)
[2020-09-26 02:57] LABS: RBC Urine Automated 0-4 /hpf (0-4)
[2020-09-26] MEDS ORDERED: ALBUT/IPRATROP 3MG/0.5MG NEB 3 ML VIAL INH PRN (03:06)
[2020-09-26] MEDS ORDERED: GLUCOSE 10 TABS/TUBE PO PRN (03:06)
[2020-09-26] MEDS ORDERED: GLUCAGON FOR INJ 1 MG VIAL SQ PRN (03:06)
[2020-09-26] MEDS ORDERED: SODIUM CHLORIDE 0.9% 1000ML 500 ML IV ONE (03:06)
[2020-09-26] MEDS ORDERED: CARBOHYDRATES FOR HYPOGLYCEMIA PO PRN (03:06)
[2020-09-26] MEDS ORDERED: GLUCOSE 40% GEL 15 GM TUBE PO PRN (03:06)
[2020-09-26] MEDS ORDERED: DEXTROSE 50% 50 ML SYRINGE IV PRN (03:06)
[2020-09-26 03:07] LABS: Amphetamines+Metham, Urine Neg (Neg); Barbiturates, Urine Neg (Neg); Benzodiazepine, Urine Neg (Neg); Cocaine, Urine Neg (Neg); MDMA (Ecstacy), Urine Neg (Neg); Methadone, Urine Neg (Neg); Opiate, Urine Neg (Neg); Phencyclidine, Urine Neg (Neg)
[2020-09-26 03:21] LABS: Acetaminophen < 2 ug/ml (10-30)
[2020-09-26] MEDS ORDERED: Nursing to Pharmacy Communication SCH (03:30)
--- NOTE | 2020-09-26 04:09 | Billing Data ---
Date of Service September 26, 2020 Coding Level of Care Code 82059 Initial Inpt Care Lvl 3
[2020-09-26] MEDS ORDERED: AZITHROMYCIN 500 MG in DEXTROSE 5% 250 ML IV STA (04:18)
[2020-09-26] MEDS: INSULIN ASPART 100 UNITS/ML 3 ML PEN SC SCH ×5 (05:58→20:51)
--- NOTE | 2020-09-26 06:24 | Emergency Department Note ---
History of Present Illness General Chief complaint: Shortness of Breath/Dyspnea Stated complaint: SOB Hx pnuemonia Source: EMS and RN notes reviewed Mode of arrival: ambulatory Limitations: no limitations History of Present Illness Provider complaint: Shortness of breath This patient is a 70-year-old female who presents emergency department by ambulance with complaints of shortness of breath. Patient is currently unable to provide a history but per nursing staff the patient called for the ambulance 3 times today. It is unclear why she did not come to the hospital the first 2 calls however it is reported that she was treated for "pneumonia" by her PCP this week with an antibiotic. Patient has a history of COPD and does smoke cigarettes. She wears 3 L of nasal cannula oxygen chronically. She has apparen tly had a cough that is productive. No fevers are reported. I asked the patient if she was able to provide any history or details as to why she is here and she states "no." The patient does not answer any questions specifically and seems fatigued. Home Medications Home Medications Medication Instructions Recorded Confirmed Type Jardiance 10 mg PO DAILY 08/28/20 09/25/20 History albuterol sulfate 2 puff INHALATION Q6 PRN 08/28/20 09/25/20 History aspirin [Aspirin Low Dose] 81 mg PO DAILY 08/28/20 09/25/20 History atorvastatin 40 mg PO DAILY 08/28/20 09/25/20 History budesonide 0.5 mg INHALATION BID 08/28/20 09/25/20 History carvedilol 12.5 mg PO BID 08/28/20 09/25/20 History diltiazem HCl [Cartia XT] 120 mg PO DAILY 08/28/20 09/25/20 History losartan 50 mg PO DAILY 08/28/20 09/25/20 History metformin 1,000 mg PO BID 08/28/20 09/25/20 History tramadol 50 mg PO BID PRN 08/28/20 09/25/20 History formoterol fumarate [Perforomist] 20 mcg NEB Q12R 30 Days #120 ml 09/02/20 09/25/20 Rx umeclidinium [Incruse Ellipta] 1 puff INHALATION DAILY #1 ea 09/02/20 09/25/20 Rx ipratropium-albuterol 3 ml INHALATION QID PRN 09/25/20 09/25/20 History Allergies Allergy/AdvReac Type Severity Reaction Status Date / Time diflunisal Allergy Unknown HEART RACES Verified 09/25/20 23:59 Past Med/Surg History Medical History AAA (abdominal aortic aneurysm) Chronic low back pain COPD (chronic obstructive pulmonary disease) Diabetes mellitus Diaphragmatic hernia (10/31/11) History of knee replacement Hyperlipidemia Hypertension Left peroneal nerve palsy Tobacco abuse Surgical History H/O Achilles tendon repair (~2007) H/O: hysterectomy History of appendectomy History of bilateral oophorectomies History of lithotripsy (~2007) Hx of cholecystectomy Family History Other Family history non-contributory Social History Smoking Status: Current every day smoker Tobacco Type: Cigarettes Hx Alcohol Use: No Hx Substance Use: No Preferred Language: Mauritian Communication Ability: Effective Dialysis Biomed Technician Required: No Beliefs That Will Affect Care: None Current Living Situation: Spouse Feels Safe at Home: Yes Assistive Devices: Oxygen - Continuous Review of Systems Unobtainable due to cognitive status and Other (Respiratory difficulty) Physical Exam Vital Signs Vital Signs - 24 hr 09/25/20 22:59 09/25/20 23:00 09/25/20 23:10 Temperature 37.3 C Temperature Source Oral Pulse Rate 105 H Pulse Rate [Bilateral Apical] Respiratory Rate 23 Respiratory Effort / Characteristics Labored Short of Breath Respiratory Depth Normal Respiratory Pattern Blood Pressure 151/69 H Blood Pressure [Right Arm] Blood Pressure Mean 96 Blood Pressure Mean [Right Arm] Blood Pressure Position Sitting Pulse Oximetry 96 96 96 Oxygen Delivery Method Nasal Cannula Nasal Cannula Nasal Cannula Oxygen Flow Rate 3 5 5 Fraction of Inspired Oxygen Sepsis Recent Fever Within 48 Hours No Sepsis New/Unexplained Change in Mental Status N/A Sepsis Action Taken by Nursing No Action Required 09/25/20 23:20 09/25/20 23:48 09/26/20 00:38 Temperature Temperature Source Pulse Rate 97 H Pulse Rate [Bilateral Apical] 101 H 99 H 95 H Respiratory Rate 31 H 28 H 24 Respiratory Effort / Characteristics Spontaneous Retracting Short of Breath Spontaneous Retracting Short of Breath Respiratory Depth Shallow Respiratory Pattern Tachypnea Blood Pressure Blood Pressure [Right Arm] 160/69 H 134/67 Blood Pressure Mean Blood Pressure Mean [Right Arm] 99 89 Blood Pressure Position Pulse Oximetry 96 96 94 Oxygen Delivery Method Nasal Cannula BiPAP BiPAP Oxygen Flow Rate 3 Fraction of Inspired Oxygen 40 40 Sepsis Recent Fever Within 48 Hours Sepsis New/Unexplained Change in Mental Status Sepsis Action Taken by Nursing 09/26/20 01:23 Temperature Temperature Source Pulse Rate Pulse Rate [Bilateral Apical] 92 H Respiratory Rate 22 Respiratory Effort / Characteristics Respiratory Depth Respiratory Pattern Blood Pressure Blood Pressure [Right Arm] 117/64 Blood Pressure Mean Blood Pressure Mean [Right Arm] 81 Blood Pressure Position Pulse Oximetry 94 Oxygen Delivery Method BiPAP Oxygen Flow Rate Fraction of Inspired Oxygen Sepsis Recent Fever Within 48 Hours Sepsis New/Unexplained Change in Mental Status Sepsis Action Taken by Nursing Vital signs reviewed. General: Chronically ill-appearing 70-year-old female, increased work of breathing, minimally responsive to verbal stimuli HEENT: No scleral icterus, PERRLA, dry mucous membranes Cardiovascular: Regular rate and rhythm, no extra sounds. Pulmonary: Rhonchorous breath sounds bilaterally, audible from bedside. Increased work of breathing on nasal cannula oxygen Abdomen: Soft, nontender, nondistended, positive bowel sounds. Musculoskeletal: Atraumatic, no peripheral edema. Neurologic: Patient somnolent but arousable. Responds to her name being called. Responds "no" when asked a question. Skin: Warm, dry, no rash Course Administered Medications Insulin Aspart (Insulin Aspart 100 Units/Ml 3 Ml Pen) 0 units SC Q6 KALEY Stop: 10/26/20 05:59 Last Admin: 09/26/20 05:58 Dose: 2 units Documented by: [id number] Cosigned by: [id number] Discontinued Medications Albuterol (Albut/Ipratrop 3mg/0.5mg Neb 3 Ml Vial) 12 ml INH ONE STA Stop: 09/25/20 23:18 Last Admin: 09/25/20 23:48 Dose: 12 ml Documented by: [id number] Dextrose (Dextrose 50% 50 Ml Syringe) 50 ml IV ONE ONE Stop: 09/26/20 01:55 Last Admin: 09/26/20 02:20 Dose: 50 ml Documented by: [id number] Cefepime HCl (Maxipime) 2,000 mg in 20 mls @ 5 mls/min IV NOW STA; Protocol Stop: 09/26/20 00:26 Last Admin: 09/26/20 00:34 Dose: 5 mls/min Documented by: [id number] Calcium Gluconate 1,000 mg/ (Sodium Chloride) 60 mls @ 240 mls/hr IV NOW STA Stop: 09/26/20 02:08 Last Infusion: 09/26/20 03:07 Dose: 0 mls/hr Documented by: [id number] Admin: 09/26/20 02:34 Dose: 240 mls/hr Documented by: [id number] Sodium Chloride (Nss 1000ml) 500 mls @ 999 mls/hr IV .Q31M ONE Stop: 09/26/20 03:36 Last Infusion: 09/26/20 04:08 Dose: 0 mls/hr Documented by: [id number] Admin: 09/26/20 03:37 Dose: 999 mls/hr Documented by: [id number] Azithromycin 500 mg/ Dextrose 255 mls @ 127.5 mls/hr IV NOW STA Stop: 09/26/20 06:17 Last Admin: 09/26/20 04:36 Dose: 127.5 mls/hr Documented by: [id number] Insulin Human Regular (Novolin-R Insulin Per Unit Charge) 10 units IV NOW STA Stop: 09/26/20 01:55 Last Admin: 09/26/20 02:19 Dose: 10 units Documented by: [id number] Cosigned by: [id number] Methylprednisolone (Methylprednisolone 125 Mg/2 Ml Vial) 60 mg IV NOW STA Stop: 09/25/20 23:18 Last Admin: 09/25/20 23:31 Dose: 60 mg Documented by: [id number] Critical Care Time Critical Care Time: Yes (32) I have personally spent greater than 32 minutes of critical care time in the direct management of this patient. This includes bedside care, interpretation of diagnostic studies, and testing, discussion with consultants, patient, and family members, and other required patient management activities. This 32 minutes is in excess of all separately billable procedures. Medical Decision Making Differential Diagnosis Reactive airway disease, pneumonia, pneumothorax, COPD, CHF, infections, cardiac ischemia, pulmonary embolism, musculoskeletal, gastrointestinal, as well as other pathologies. Medical Records Attestation: I reviewed the patient's medical records. Home Medications Current Medication List: was personally reviewed by me Laboratory Data Attestation: I reviewed the patient's lab results. Result diagrams: 09/25/20 23:00 09/25/20 23:00 Lab Results 09/25/20 09/25/20 09/25/20 Range/Units 23:00 23:00 23:00 WBC 10.39 (4.8-10.8) K/uL RBC 4.35 (4.2-5.4) M/uL Hgb 11.8 L (12.0-16.0) g/dL Hct 39.9 (37-47) % MCV 91.7 (80-100) fL MCH 27.1 (25-34) pg MCHC 29.6 L (32-36) g/dL RDW Std Deviation 61.2 H (36.4-46.3) fL RDW Coeff of Dorcas 18.0 H (11.5-14.5) % Plt Count 448 H (130-400) K/uL MPV 9.9 (7.4-10.4) fL Immature Gran % (Auto) 0.6 % Neut % (Auto) 75.2 % Lymph % (Auto) 13.9 % Meade % (Auto) 7.8 % Eos % (Auto) 2.3 % Baso % (Auto) 0.2 % Neut # (Auto) 7.82 H (1.4-6.5) K/uL Lymph # (Auto) 1.44 (1.2-3.4) K/uL Meade # (Auto) 0.81 H (0.11-0.59) K/uL Eos # (Auto) 0.24 (0-0.5) K/uL Baso # (Auto) 0.02 (0-0.2) K/uL Immature Gran # (Auto) 0.06 H (0.00-0.02) K/uL PT 11.3 (9.0-12.0) Seconds INR 1.1 (0.9-1.1) APTT 27.3 (21.0-31.0) Seconds PTT Ratio 1.0 ABG pH (7.35-7.45) ABG pCO2 (35-46) mmHg ABG pO2 (80-95) mmHg ABG HCO3 (19-24) mmol/L ABG O2 Saturation (90-95) % ABG Base Excess (-9-1.8) mEq/L Presley Test (Pos) Oxygen Given Sodium 140 (136-145) mmol/L Potassium 5.2 H (3.5-5.1) mmol/L Chloride 104 (98-107) mmol/L Carbon Dioxide 30 (21-32) mmol/L Anion Gap 6.0 (3-11) BUN 29 H (7-18) mg/dl Creatinine 1.44 H (0.6-1.2) mg/dl Est Cr Clr Drug Dosing 35.9 ml/min Est GFR ( Amer) 43.1 Est GFR (Non-Af Amer) 37.2 BUN/Creatinine Ratio 20.1 H (10-20) Glucose 159 H (70-99) mg/dl Lactate (0.4-2.0) mmol/L Calcium 9.6 (8.5-10.1) mg/dl Magnesium 2.2 (1.8-2.4) mg/dl Total Bilirubin 0.3 (0.2-1) mg/dl AST 12 L (15-37) U/L ALT 15 (12-78) U/L Alkaline Phosphatase 103 (45-117) U/L Troponin I < 0.015 (0-0.045) ng/ml NT-Pro-B Natriuret Pep 206 (0-900) pg/ml Total Protein 7.3 (6.4-8.2) gm/dl Albumin 3.3 L (3.4-5.0) gm/dl Globulin 4.0 (2.5-4.0) gm/dl Albumin/Globulin Ratio 0.8 L (0.9-2) Adenovirus (PCR) (NotDetected) B. pertussis DNA (PCR) (NotDetected) B.parapertussis DNA PCR (NotDetected) C. pneumoniae DNA (PCR) (NotDetected) Coronavirus OC43 (PCR) (NotDetected) Coronavirus HKU1 (PCR) (NotDetected) Coronavirus 229E (PCR) (NotDetected) COVID-19 PCR (NotDetected) Coronavirus NL63 (PCR) (NotDetected) Human Metapneumovir PCR (NotDetected) Influenza Type A (PCR) (NotDetected) Influenza Type B (PCR) (NotDetected) M. pneumoniae (PCR) (NotDetected) Parainfluenza 1 (PCR) (NotDetected) Parainfluenza 2 (PCR) (NotDetected) Parainfluenza 3 (PCR) (NotDetected) Parainfluenza 4 (PCR) (NotDetected) RSV (PCR) (NotDetected) Entero/Rhino (PCR) (NotDetected) 09/25/20 09/25/20 09/25/20 Range/Units 23:15 23:29 23:40 WBC (4.8-10.8) K/uL RBC (4.2-5.4) M/uL Hgb (12.0-16.0) g/dL Hct (37-47) % MCV (80-100) fL MCH (25-34) pg MCHC (32-36) g/dL RDW Std Deviation (36.4-46.3) fL RDW Coeff of Dorcas (11.5-14.5) % Plt Count (130-400) K/uL MPV (7.4-10.4) fL Immature Gran % (Auto) % Neut % (Auto) % Lymph % (Auto) % Meade % (Auto) % Eos % (Auto) % Baso % (Auto) % Neut # (Auto) (1.4-6.5) K/uL Lymph # (Auto) (1.2-3.4) K/uL Meade # (Auto) (0.11-0.59) K/uL Eos # (Auto) (0-0.5) K/uL Baso # (Auto) (0-0.2) K/uL Immature Gran # (Auto) (0.00-0.02) K/uL PT (9.0-12.0) Seconds INR (0.9-1.1) APTT (21.0-31.0) Seconds PTT Ratio ABG pH 7.33 L (7.35-7.45) ABG pCO2 51 H (35-46) mmHg ABG pO2 75 L (80-95) mmHg ABG HCO3 26 H (19-24) mmol/L ABG O2 Saturation 94.1 (90-95) % ABG Base Excess 0.0 (-9-1.8) mEq/L Presley Test Pos (Pos) Oxygen Given 3L Sodium (136-145) mmol/L Potassium (3.5-5.1) mmol/L Chloride (98-107) mmol/L Carbon Dioxide (21-32) mmol/L Anion Gap (3-11) BUN (7-18) mg/dl Creatinine (0.6-1.2) mg/dl Est Cr Clr Drug Dosing ml/min Est GFR ( Amer) Est GFR (Non-Af Amer) BUN/Creatinine Ratio (10-20) Glucose (70-99) mg/dl Lactate 1.0 (0.4-2.0) mmol/L Calcium (8.5-10.1) mg/dl Magnesium (1.8-2.4) mg/dl Total Bilirubin (0.2-1) mg/dl AST (15-37) U/L ALT (12-78) U/L Alkaline Phosphatase (45-117) U/L Troponin I (0-0.045) ng/ml NT-Pro-B Natriuret Pep (0-900) pg/ml Total Protein (6.4-8.2) gm/dl Albumin (3.4-5.0) gm/dl Globulin (2.5-4.0) gm/dl Albumin/Globulin Ratio (0.9-2) Adenovirus (PCR) Not Detected (NotDetected) B. pertussis DNA (PCR) Not Detected (NotDetected) B.parapertussis DNA PCR Not Detected (NotDetected) C. pneumoniae DNA (PCR) Not Detected (NotDetected) Coronavirus OC43 (PCR) Not Detected (NotDetected) Coronavirus HKU1 (PCR) Not Detected (NotDetected) Coronavirus 229E (PCR) Not Detected (NotDetected) COVID-19 PCR Not Detected (NotDetected) Coronavirus NL63 (PCR) Not Detected (NotDetected) Human Metapneumovir PCR Not Detected (NotDetected) Influenza Type A (PCR) Not Detected (NotDetected) Influenza Type B (PCR) Not Detected (NotDetected) M. pneumoniae (PCR) Not Detected (NotDetected) Parainfluenza 1 (PCR) Not Detected (NotDetected) Parainfluenza 2 (PCR) Not Detected (NotDetected) Parainfluenza 3 (PCR) Not Detected (NotDetected) Parainfluenza 4 (PCR) Not Detected (NotDetected) RSV (PCR) Not Detected (NotDetected) Entero/Rhino (PCR) Not Detected (NotDetected) Imaging Data Attestation: I personally reviewed and interpreted this imaging study as follows: My Impression: Chest x-ray to my interpretation reveals changes consistent with COPD, no focal lung consolidation or failure. ECG Data Attestation: I personally reviewed and interpreted this ECG as follows: Indication: + SOB/dyspnea Rate (beats per minute): 100 Rhythm: + sinus tachycardia ECG Intervals/blocks: no Normal QRS (Low voltage) ECG ST segments: + Normal ST segments ECG Findings: + Q waves (Inferior) and + Other (Poor quality baseline for interpretation); no PACs and no PVCs Blood Pressure Blood Pressure Findings: Elevated blood pressure Blood Pressure Disposition: further management by hospitalist MDM Narrative This patient was evaluated and appeared to be in some respiratory discomfort. IV access was obtained and laboratory work was drawn. An order for cardiac monitoring was placed and the patient is noted to be in a sinus tachycardia at 100 bpm. She was given an hour-long DuoNeb treatment and 60 mg of IV Solu- Medrol. Chest x-ray was performed and to my interpretation reveals no evidence of focal lung consolidation or failure. Covid swab was obtained and is negative. Patient was medicated with cefepime 2 g IV. She was placed on BiPAP as she seemed to be fatiguing from a respiratory standpoint. Patient's ABG appears much better than she does clinically. Case was discussed with the hospitalist service who will evaluate the patient for admission and further management. Impression & Plan COPD exacerbation, Acute bronchitis Discharge Plan Visit Data Chief Complaint: Shortness of Breath/Dyspnea Stated Complaint: SOB Hx pnuemonia ED Provider: Alexandria Dominguez Discharge Problem: COPD exacerbation, Acute bronchitis Patient Disposition: Admitted As Inpatient Discharge Instructions Interventions: ED Discharge Assessment Last Done: 09/26/20 02:43 Discharge Problem: Acute bronchitis Qualifiers: Bronchitis organism: other organism Qualified Code(s): J20.8 - Acute bronchitis due to other specified organisms
[2020-09-26 06:30] LABS: Eosinophils # (auto) 0.01 K/uL (0-0.5); Eosinophils % (auto) 0.1 %; Hematocrit (blood only) 35.8 % (37-47); Hemoglobin 10.7 g/dL (12.0-16.0); Immature Granulocytes # (auto) 0.03 K/uL (0.00-0.02); Immature Granulocytes % (auto) 0.4 %; Lymphocytes # (auto) 0.49 K/uL (1.2-3.4); Lymphocytes % (auto) 6.4 %; Mean Corpuscular Hemoglobin 27.2 pg (25-34); Mean Corpuscular Hgb Conc 29.9 g/dL (32-36); Mean Corpuscular Volume 90.9 fL (80-100); Mean Platelet Volume 9.8 fL (7.4-10.4); Monocytes # (auto) 0.07 K/uL (0.11-0.59); Monocytes % (auto) 0.9 %; Neutrophils # (auto) 7.06 K/uL (1.4-6.5); Neutrophils % (auto) 92.2 %; Platelet Count 415 K/uL (130-400); RDW Coefficient of Variation 17.7 % (11.5-14.5); Red Blood Count 3.94 M/uL (4.2-5.4); White Blood Count 7.66 K/uL (4.8-10.8)
[2020-09-26 06:32] LABS: Base Excess ABG -0.3 mEq/L (-9-1.8); HCO3 ABG 26 mmol/L (19-24); PCO2 ABG 52 mmHg (35-46); PO2 ABG 80 mmHg (80-95); pH ABG 7.32 (7.35-7.45)
[2020-09-26 06:34] LABS: Allen Test Pos (Pos)
--- NOTE | 2020-09-26 06:53 | CT Scan Report ---
CT head/brain wo con CLINICAL HISTORY: 70 years-old Female with AMS. Acutely altered mental status and unresponsive patie nt. TECHNIQUE: Multiple axial CT images of the head were obtained without contrast. A dose lowering tech nique was utilized adhering to the principles of ALARA. CT DOSE: 2428.99 mGy.cm COMPARISON: Brain MRI 04/18/2016. FINDINGS: Motion degraded exam. Senescent calcifications of the lentiform nuclei. Cerebral vascular calcificati ons. Mild patchy white matter hypodensities are suggestive of probable chronic microvascular ischemic disease. No acute intracranial hemorrhage, midline shift, intracranial mass, hydrocephalus, territor ial ischemia or abnormal extra-axial collection. The calvarium is intact. Prior bilateral lens replacement. The paranasal sinuses, mastoid air cells, and middle ear cavities are clear. IMPRESSION: No acute intracranial abnormality. ACT 112: Negative or not required by law. The above report was generated using voice recognition software. It may contain grammatical, syntax o r spelling errors. Electronically signed by: Omid Sharma M.D. 09/26/2020 6:52 AM
[2020-09-26 07:04] LABS: Albumin Level 2.8 gm/dl (3.4-5.0); BUN Creatinine Ratio 24.9 (10-20); Calcium 9.7 mg/dl (8.5-10.1); Creatinine Clr Calc Pharmacy 48.8 ml/min; Est GFR (African American) 63.2; Est GFR (Non-African American) 54.5
[2020-09-26 07:07] LABS: Albumin Globulin Ratio 0.8 (0.9-2); Bilirubin,Total 0.3 mg/dl (0.2-1); Globulin 3.7 gm/dl (2.5-4.0); Total Protein 6.5 gm/dl (6.4-8.2)
--- NOTE | 2020-09-26 07:24 | CT Scan Report ---
CT chest wo con CT DOSE: HISTORY: Unresponsive. Altered mental status. TECHNIQUE: Multiaxial CT images of the chest were performed without contrast. A dose lowering techni que was utilized adhering to the principles of ALARA. COMPARISON: Chest CT 08/29/2020. FINDINGS: Mild respiratory motion artifact. Moderate emphysema. No pneumothorax. No pleural effusions . There are small scattered peripheral airspace opacities seen within the lungs most pronounced withi n the lung bases. This is similar to the prior study. Linear density within the right middle lobe has improved in the interval. No suspicious lytic or blastic osseous lesions. Calcified subcarinal and r ight hilar lymph nodes are again noted. The heart is normal in size. No pericardial effusion. Hepatic steatosis. Multiple calcified granuloma seen within the spleen. Tiny hiatus hernia. Normal caliber e sophagus. Moderate calcified plaque within the normal caliber thoracic aorta. There is also moderate coronary artery calcifications. IMPRESSION: 1. No significant change compared to the 08/29/[address] 2. There are few small scattered peripheral airspace opacities within the lungs most pronounced withi n the lung bases. This could be due to scarring/atelectasis or a mild chronic infectious change. 3. Emphysema. ACT 112: Negative or not required by law. Electronically signed by: Wicho Gutierrez M.D. 09/26/2020 7:22 AM
--- NOTE | 2020-09-26 08:04 | XRay Report ---
XR chest 1V portable HISTORY: Dyspnea COMPARISON: Chest 08/30/2020. FINDINGS: No pneumothorax. No pleural effusions. Mild diffuse interstitial thickening remains unchang ed. The heart is normal in size. No new focal lung consolidations. No evidence for pulmonary edema. IMPRESSION: Stable chronic interstitial thickening. ACT 112: Negative or not required by law. Electronically signed by: Wicho Gutierrez M.D. 09/26/2020 8:02 AM
[2020-09-26] MEDS: ENOXAPARIN INJ 40 MG/0.4 ML SYR SQ SCH (08:08)
[2020-09-26] MEDS: cefTRIAXone SODIUM 2,000 MG in DEXTROSE 5% 50 ML IV SCH (08:12)
[2020-09-26] MEDS: INSULIN GLARGINE SOLOSTAR 100 UNITS/ML 3 ML PEN SC SCH ×2 (08:47→20:50)
[2020-09-26] MEDS ORDERED: INSULIN GLARGINE SOLOSTAR 100 UNITS/ML 3 ML PEN SC SCH (09:00)
[2020-09-26] MEDS ORDERED: ALBUTEROL 0.083% NEBU SOLN 3 ML VIAL NEB PRN (11:41)
--- NOTE | 2020-09-26 11:45 | Hospitalist Progress Note ---
Date of Service September 26, 2020 Assessment & Plan (1) Acute on chronic respiratory failure with hypoxia and hypercapnia: 2nd COPD exacerbation. ?residual pneumonia in setting of recent hospital stay for such? Biofire including COVID-19 neg. Increase steroids to TID dosing. Add duonebs QID. Cont BIPAP during naps/sleep. If distress while awake change to HFNC. Cont current IV abx. (2) COPD (chronic obstructive pulmonary disease): see above (3) Metabolic encephalopathy: 2nd resp acidosis (4) Tobacco abuse: (5) Diabetes mellitus: add lantus 10 units BID. add novolog correction/carb coverage - likely to need frequent adjustments due to high-dose steroids. (6) Hypertension: (7) Hyperlipidemia: (8) Candidiasis of mouth and esophagus: nystatin 5cc ac/hs swish/spit (9) DVT prophylaxis: lovenox daily Admission and Anticipated Discharge Date Admission Date: September 26, 2020 Subjective patient c/o ongoing dyspnea. ongoing cough. more awake after using BIPAP all night. asking for food. asking for her chronic pain meds. PDMP shows chronic use of 50mg tramadol (receives 60 tabs of tramadol monthly). tele stable since admission. Physical Exam Constitutional: + acute distress (respiratory ); no altered mental status ENMT: Mouth: + oral mucosal abnormality (thrush plaques ) Respiratory: + respiratory distress, + retractions, + uses accessory muscles, + cough and + tachypneic Auscultation: + diminished lung sounds (very poor air movement all lung segments ) and + wheezes Cardiovascular: Rate/Rhythm: regular rhythm and + tachycardic Heart Sounds: normal S1 and normal S2; no murmur Vessels: posterior tibial pulses present and dorsalis pedis pulses present; no JVD Extremities: no edema Gastrointestinal (Abdomen): normal bowel sounds, soft, nontender, no hepatosplenomegaly Psychiatric: Orientation: alert and oriented x 3 Affect: + anxious affect Results & Data Results & Data ([facility]) Vital Signs (Past 12 Hours) Vital Signs Temp Pulse Pulse Resp BP Pulse Ox 09/26/20 11:10 36.5 C 105 H 23 138/81 92 09/26/20 08:00 103 H 09/26/20 07:48 36.7 C 104 H 21 113/62 94 09/26/20 05:06 98 H 20 92 09/26/20 05:03 94 09/26/20 04:45 88 L 09/26/20 03:05 36.7 C 98 H 20 139/60 96 09/26/20 02:29 102 H 22 143/65 H 94 09/26/20 02:11 89 20 141/68 H 91 09/26/20 01:23 92 H 22 117/64 94 09/26/20 00:38 95 H 24 134/67 94 09/25/20 23:48 99 H 28 H 96 Laboratory Results Laboratory Results - last 24 hr 09/25/20 09/25/20 09/25/20 23:00 23:00 23:00 WBC 10.39 RBC 4.35 Hgb 11.8 L Hct 39.9 MCV 91.7 MCH 27.1 MCHC 29.6 L RDW Std Deviation 61.2 H RDW Coeff of Dorcas 18.0 H Plt Count 448 H MPV 9.9 Immature Gran % (Auto) 0.6 Neut % (Auto) 75.2 Lymph % (Auto) 13.9 Starr % (Auto) 7.8 Eos % (Auto) 2.3 Baso % (Auto) 0.2 Neut # (Auto) 7.82 H Lymph # (Auto) 1.44 Starr # (Auto) 0.81 H Eos # (Auto) 0.24 Baso # (Auto) 0.02 Immature Gran # (Auto) 0.06 H PT 11.3 INR 1.1 APTT 27.3 PTT Ratio 1.0 ABG pH ABG pCO2 ABG pO2 ABG HCO3 ABG O2 Saturation ABG Base Excess Presley Test Barometric Pressure Oxygen Given Sodium 140 Potassium 5.2 H Chloride 104 Carbon Dioxide 30 Anion Gap 6.0 BUN 29 H Creatinine 1.44 H Est Cr Clr Drug Dosing 35.9 Est GFR ( Amer) 43.1 Est GFR (Non-Af Amer) 37.2 BUN/Creatinine Ratio 20.1 H Glucose 159 H POC Glucose Lactate Calcium 9.6 Magnesium 2.2 Total Bilirubin 0.3 AST 12 L ALT 15 Alkaline Phosphatase 103 Ammonia Troponin I < 0.015 NT-Pro-B Natriuret Pep 206 Total Protein 7.3 Albumin 3.3 L Globulin 4.0 Albumin/Globulin Ratio 0.8 L Procalcitonin Urine Color Urine Appearance Urine pH Ur Specific [place] Urine Protein Urine Glucose (UA) Urine Ketones Urine Blood Urine Nitrite Urine Bilirubin Urine Urobilinogen Ur Leukocyte Esterase Urine WBC (Auto) Urine RBC (Auto) U Hyaline Cast (Auto) U Epithel Cells (Auto) Urine Bacteria (Auto) Urine Yeast Salicylates Urine Opiates Screen Ur Methadone, Qual Acetaminophen Urine Barbiturates Ur Phencyclidine (PCP) U Amphetamin/Meth Scrn MDMA (Ecstasy) Screen U Benzodiazepines Scrn Ur Cocaine Metabolite U Marijuana (THC) Screen Ethyl Alcohol mg/dL Adenovirus (PCR) B. pertussis DNA (PCR) B.parapertussis DNA PCR C. pneumoniae DNA (PCR) Coronavirus OC43 (PCR) Coronavirus HKU1 (PCR) Coronavirus 229E (PCR) COVID-19 PCR Coronavirus NL63 (PCR) Human Metapneumovir PCR Influenza Type A (PCR) Influenza Type B (PCR) M. pneumoniae (PCR) Parainfluenza 1 (PCR) Parainfluenza 2 (PCR) Parainfluenza 3 (PCR) Parainfluenza 4 (PCR) RSV (PCR) Entero/Rhino (PCR) 09/25/20 09/25/20 09/25/20 23:15 23:29 23:40 WBC RBC Hgb Hct MCV MCH MCHC RDW Std Deviation RDW Coeff of Dorcas Plt Count MPV Immature Gran % (Auto) Neut % (Auto) Lymph % (Auto) Starr % (Auto) Eos % (Auto) Baso % (Auto) Neut # (Auto) Lymph # (Auto) Starr # (Auto) Eos # (Auto) Baso # (Auto) Immature Gran # (Auto) PT INR APTT PTT Ratio ABG pH 7.33 L ABG pCO2 51 H ABG pO2 75 L ABG HCO3 26 H ABG O2 Saturation 94.1 ABG Base Excess 0.0 Presley Test Pos Barometric Pressure Oxygen Given 3L Sodium Potassium Chloride Carbon Dioxide Anion Gap BUN Creatinine Est Cr Clr Drug Dosing Est GFR ( Amer) Est GFR (Non-Af Amer) BUN/Creatinine Ratio Glucose POC Glucose Lactate 1.0 Calcium Magnesium Total Bilirubin AST ALT Alkaline Phosphatase Ammonia Troponin I NT-Pro-B Natriuret Pep Total Protein Albumin Globulin Albumin/Globulin Ratio Procalcitonin Urine Color Urine Appearance Urine pH Ur Specific [place] Urine Protein Urine Glucose (UA) Urine Ketones Urine Blood Urine Nitrite Urine Bilirubin Urine Urobilinogen Ur Leukocyte Esterase Urine WBC (Auto) Urine RBC (Auto) U Hyaline Cast (Auto) U Epithel Cells (Auto) Urine Bacteria (Auto) Urine Yeast Salicylates Urine Opiates Screen Ur Methadone, Qual Acetaminophen Urine Barbiturates Ur Phencyclidine (PCP) U Amphetamin/Meth Scrn MDMA (Ecstasy) Screen U Benzodiazepines Scrn Ur Cocaine Metabolite U Marijuana (THC) Screen Ethyl Alcohol mg/dL Adenovirus (PCR) Not Detected B. pertussis DNA (PCR) Not Detected B.parapertussis DNA PCR Not Detected C. pneumoniae DNA (PCR) Not Detected Coronavirus OC43 (PCR) Not Detected Coronavirus HKU1 (PCR) Not Detected Coronavirus 229E (PCR) Not Detected COVID-19 PCR Not Detected Coronavirus NL63 (PCR) Not Detected Human Metapneumovir PCR Not Detected Influenza Type A (PCR) Not Detected Influenza Type B (PCR) Not Detected M. pneumoniae (PCR) Not Detected Parainfluenza 1 (PCR) Not Detected Parainfluenza 2 (PCR) Not Detected Parainfluenza 3 (PCR) Not Detected Parainfluenza 4 (PCR) Not Detected RSV (PCR) Not Detected Entero/Rhino (PCR) Not Detected 09/26/20 09/26/20 09/26/20 02:15 02:15 02:15 WBC RBC Hgb Hct MCV MCH MCHC RDW Std Deviation RDW Coeff of Dorcas Plt Count MPV Immature Gran % (Auto) Neut % (Auto) Lymph % (Auto) Starr % (Auto) Eos % (Auto) Baso % (Auto) Neut # (Auto) Lymph # (Auto) Starr # (Auto) Eos # (Auto) Baso # (Auto) Immature Gran # (Auto) PT INR APTT PTT Ratio ABG pH ABG pCO2 ABG pO2 ABG HCO3 ABG O2 Saturation ABG Base Excess Presley Test Barometric Pressure Oxygen Given Sodium Potassium Chloride Carbon Dioxide Anion Gap BUN Creatinine Est Cr Clr Drug Dosing Est GFR ( Amer) Est GFR (Non-Af Amer) BUN/Creatinine Ratio Glucose POC Glucose Lactate Calcium Magnesium Total Bilirubin AST ALT Alkaline Phosphatase Ammonia 17.0 Troponin I NT-Pro-B Natriuret Pep Total Protein Albumin Globulin Albumin/Globulin Ratio Procalcitonin Urine Color Urine Appearance Urine pH Ur Specific [place] Urine Protein Urine Glucose (UA) Urine Ketones Urine Blood Urine Nitrite Urine Bilirubin Urine Urobilinogen Ur Leukocyte Esterase Urine WBC (Auto) Urine RBC (Auto) U Hyaline Cast (Auto) U Epithel Cells (Auto) Urine Bacteria (Auto) Urine Yeast Salicylates 5.0 Urine Opiates Screen Ur Methadone, Qual Acetaminophen < 2 L Urine Barbiturates Ur Phencyclidine (PCP) U Amphetamin/Meth Scrn MDMA (Ecstasy) Screen U Benzodiazepines Scrn Ur Cocaine Metabolite U Marijuana (THC) Screen Ethyl Alcohol mg/dL < 3.0 Adenovirus (PCR) B. pertussis DNA (PCR) B.parapertussis DNA PCR C. pneumoniae DNA (PCR) Coronavirus OC43 (PCR) Coronavirus HKU1 (PCR) Coronavirus 229E (PCR) COVID-19 PCR Coronavirus NL63 (PCR) Human Metapneumovir PCR Influenza Type A (PCR) Influenza Type B (PCR) M. pneumoniae (PCR) Parainfluenza 1 (PCR) Parainfluenza 2 (PCR) Parainfluenza 3 (PCR) Parainfluenza 4 (PCR) RSV (PCR) Entero/Rhino (PCR) 09/26/20 09/26/20 09/26/20 02:20 02:20 05:57 WBC RBC Hgb Hct MCV MCH MCHC RDW Std Deviation RDW Coeff of Dorcas Plt Count MPV Immature Gran % (Auto) Neut % (Auto) Lymph % (Auto) Starr % (Auto) Eos % (Auto) Baso % (Auto) Neut # (Auto) Lymph # (Auto) Starr # (Auto) Eos # (Auto) Baso # (Auto) Immature Gran # (Auto) PT INR APTT PTT Ratio ABG pH ABG pCO2 ABG pO2 ABG HCO3 ABG O2 Saturation ABG Base Excess Presley Test Barometric Pressure Oxygen Given Sodium Potassium Chloride Carbon Dioxide Anion Gap BUN Creatinine Est Cr Clr Drug Dosing Est GFR ( Amer) Est GFR (Non-Af Amer) BUN/Creatinine Ratio Glucose POC Glucose 253 H Lactate Calcium Magnesium Total Bilirubin AST ALT Alkaline Phosphatase Ammonia Troponin I NT-Pro-B Natriuret Pep Total Protein Albumin Globulin Albumin/Globulin Ratio Procalcitonin Urine Color Yellow Urine Appearance Cloudy A Urine pH 5.0 Ur Specific [place] 1.027 Urine Protein 1+ H Urine Glucose (UA) 3+ H Urine Ketones 2+ H Urine Blood Trace H Urine Nitrite Positive A Urine Bilirubin Negative Urine Urobilinogen Negative Ur Leukocyte Esterase 1+ H Urine WBC (Auto) >30 H Urine RBC (Auto) 0-4 U Hyaline Cast (Auto) 10-30 H U Epithel Cells (Auto) 20-30 H Urine Bacteria (Auto) 2+ H Urine Yeast Budding A Salicylates Urine Opiates Screen Neg Ur Methadone, Qual Neg Acetaminophen Urine Barbiturates Neg Ur Phencyclidine (PCP) Neg U Amphetamin/Meth Scrn Neg MDMA (Ecstasy) Screen Neg U Benzodiazepines Scrn Neg Ur Cocaine Metabolite Neg U Marijuana (THC) Screen Neg Ethyl Alcohol mg/dL Adenovirus (PCR) B. pertussis DNA (PCR) B.parapertussis DNA PCR C. pneumoniae DNA (PCR) Coronavirus OC43 (PCR) Coronavirus HKU1 (PCR) Coronavirus 229E (PCR) COVID-19 PCR Coronavirus NL63 (PCR) Human Metapneumovir PCR Influenza Type A (PCR) Influenza Type B (PCR) M. pneumoniae (PCR) Parainfluenza 1 (PCR) Parainfluenza 2 (PCR) Parainfluenza 3 (PCR) Parainfluenza 4 (PCR) RSV (PCR) Entero/Rhino (PCR) 09/26/20 09/26/20 09/26/20 06:18 06:18 06:18 WBC 7.66 RBC 3.94 L Hgb 10.7 L Hct 35.8 L MCV 90.9 MCH 27.2 MCHC 29.9 L RDW Std Deviation 60.0 H RDW Coeff of Dorcas 17.7 H Plt Count 415 H MPV 9.8 Immature Gran % (Auto) 0.4 Neut % (Auto) 92.2 Lymph % (Auto) 6.4 Starr % (Auto) 0.9 Eos % (Auto) 0.1 Baso % (Auto) 0.0 Neut # (Auto) 7.06 H Lymph # (Auto) 0.49 L Starr # (Auto) 0.07 L Eos # (Auto) 0.01 Baso # (Auto) 0.00 Immature Gran # (Auto) 0.03 H PT INR APTT PTT Ratio ABG pH ABG pCO2 ABG pO2 ABG HCO3 ABG O2 Saturation ABG Base Excess Presley Test Barometric Pressure Oxygen Given Sodium 139 Potassium 5.0 Chloride 105 Carbon Dioxide 26 Anion Gap 8.0 BUN 26 H Creatinine 1.05 Est Cr Clr Drug Dosing 48.8 Est GFR ( Amer) 63.2 Est GFR (Non-Af Amer) 54.5 BUN/Creatinine Ratio 24.9 H Glucose 247 H POC Glucose Lactate Calcium 9.7 Magnesium Total Bilirubin 0.3 AST 9 L ALT 13 Alkaline Phosphatase 90 Ammonia Troponin I NT-Pro-B Natriuret Pep Total Protein 6.5 Albumin 2.8 L Globulin 3.7 Albumin/Globulin Ratio 0.8 L Procalcitonin 0.06 Urine Color Urine Appearance Urine pH Ur Specific [place] Urine Protein Urine Glucose (UA) Urine Ketones Urine Blood Urine Nitrite Urine Bilirubin Urine Urobilinogen Ur Leukocyte Esterase Urine WBC (Auto) Urine RBC (Auto) U Hyaline Cast (Auto) U Epithel Cells (Auto) Urine Bacteria (Auto) Urine Yeast Salicylates Urine Opiates Screen Ur Methadone, Qual Acetaminophen Urine Barbiturates Ur Phencyclidine (PCP) U Amphetamin/Meth Scrn MDMA (Ecstasy) Screen U Benzodiazepines Scrn Ur Cocaine Metabolite U Marijuana (THC) Screen Ethyl Alcohol mg/dL Adenovirus (PCR) B. pertussis DNA (PCR) B.parapertussis DNA PCR C. pneumoniae DNA (PCR) Coronavirus OC43 (PCR) Coronavirus HKU1 (PCR) Coronavirus 229E (PCR) COVID-19 PCR Coronavirus NL63 (PCR) Human Metapneumovir PCR Influenza Type A (PCR) Influenza Type B (PCR) M. pneumoniae (PCR) Parainfluenza 1 (PCR) Parainfluenza 2 (PCR) Parainfluenza 3 (PCR) Parainfluenza 4 (PCR) RSV (PCR) Entero/Rhino (PCR) 09/26/20 06:18 WBC RBC Hgb Hct MCV MCH MCHC RDW Std Deviation RDW Coeff of Dorcas Plt Count MPV Immature Gran % (Auto) Neut % (Auto) Lymph % (Auto) Starr % (Auto) Eos % (Auto) Baso % (Auto) Neut # (Auto) Lymph # (Auto) Starr # (Auto) Eos # (Auto) Baso # (Auto) Immature Gran # (Auto) PT INR APTT PTT Ratio ABG pH 7.32 L ABG pCO2 52 H ABG pO2 80 ABG HCO3 26 H ABG O2 Saturation 95.0 ABG Base Excess -0.3 Presley Test Pos Barometric Pressure 735.3 Oxygen Given 40% FiO2 Sodium Potassium Chloride Carbon Dioxide Anion Gap BUN Creatinine Est Cr Clr Drug Dosing Est GFR ( Amer) Est GFR (Non-Af Amer) BUN/Creatinine Ratio Glucose POC Glucose Lactate Calcium Magnesium Total Bilirubin AST ALT Alkaline Phosphatase Ammonia Troponin I NT-Pro-B Natriuret Pep Total Protein Albumin Globulin Albumin/Globulin Ratio Procalcitonin Urine Color Urine Appearance Urine pH Ur Specific [place] Urine Protein Urine Glucose (UA) Urine Ketones Urine Blood Urine Nitrite Urine Bilirubin Urine Urobilinogen Ur Leukocyte Esterase Urine WBC (Auto) Urine RBC (Auto) U Hyaline Cast (Auto) U Epithel Cells (Auto) Urine Bacteria (Auto) Urine Yeast Salicylates Urine Opiates Screen Ur Methadone, Qual Acetaminophen Urine Barbiturates Ur Phencyclidine (PCP) U Amphetamin/Meth Scrn MDMA (Ecstasy) Screen U Benzodiazepines Scrn Ur Cocaine Metabolite U Marijuana (THC) Screen Ethyl Alcohol mg/dL Adenovirus (PCR) B. pertussis DNA (PCR) B.parapertussis DNA PCR C. pneumoniae DNA (PCR) Coronavirus OC43 (PCR) Coronavirus HKU1 (PCR) Coronavirus 229E (PCR) COVID-19 PCR Coronavirus NL63 (PCR) Human Metapneumovir PCR Influenza Type A (PCR) Influenza Type B (PCR) M. pneumoniae (PCR) Parainfluenza 1 (PCR) Parainfluenza 2 (PCR) Parainfluenza 3 (PCR) Parainfluenza 4 (PCR) RSV (PCR) Entero/Rhino (PCR) PG Care Time/CCT Total # of Minutes Spent Total Time Spent with Patient: Total time spent is greater than 50% in coordination of care (as documented) at patient's floor/unit and/or counseling patient: Coding Level of Care Code None Diagnoses Acute on chronic respiratory failure with hypoxia and hypercapnia J96.21; J96.22 COPD (chronic obstructive pulmonary disease) J44.1 COPD type: COPD with acute exacerbation Metabolic encephalopathy G93.41 Tobacco abuse Z72.0 Diabetes mellitus E11.69; Z79.4 Diabetes mellitus type: type 2 Diabetes mellitus mcfp insulin use: with mcfp use Diabetes mellitus complication status: with other specified complication Hypertension I10 Hypertension type: essential hypertension Hyperlipidemia E78.2 Hyperlipidemia type: mixed hyperlipidemia Candidiasis of mouth and esophagus B37.81; B37.0 DVT prophylaxis Z29.9 (1) Diabetes mellitus Diabetes mellitus type: type 2 Diabetes mellitus supervisor intermediates insulin use: with supervisor intermediates use Diabetes mellitus complication status: with other specified complication Qualified Code(s): E11.69 - Type 2 diabetes mellitus with other specified complication; Z79.4 - shelter (current) use of insulin (2) COPD (chronic obstructive pulmonary disease) COPD type: COPD with acute exacerbation Qualified Code(s): J44.1 - Chronic obstructive pulmonary disease with (acute) exacerbation (3) Hypertension Hypertension type: essential hypertension Qualified Code(s): I10 - Essential (primary) hypertension (4) Hyperlipidemia Hyperlipidemia type: mixed hyperlipidemia Qualified Code(s): E78.2 - Mixed hyperlipidemia
[2020-09-26] MEDS ORDERED: methylPREDNISolone 40 MG in SYRINGE 0 ML IV SCH (12:00)
[2020-09-26] MEDS: NYSTATIN SUSP 500,000 U/5 ML UDC PO SCH ×3 (12:10→20:49)
[2020-09-26] MEDS: guaiFENesin 600 MG TABCR PO SCH ×2 (12:11→20:53)
[2020-09-26] MEDS: dilTIAZem HCL 120 MG CAPCR PO SCH (12:11)
[2020-09-26] MEDS: methylPREDNISolone 40 MG in SYRINGE 0 ML IV SCH ×2 (12:12→20:06)
[2020-09-26] MEDS: UMECLIDINIUM BROMIDE 62.5MCG/BLISTER 7 PUFFS/INHALER INH SCH (12:12)
[2020-09-26] MEDS: traMADol HCL 50 MG TABLET PO PRN ×2 (12:25→18:54)
--- NOTE | 2020-09-26 12:48 | Electrocardiogram Report ---
Test Reason : Blood Pressure : / mmHG Vent. Rate : 100 BPM Atrial Rate : 100 BPM P-R Int : 000 ms QRS Dur : 086 ms QT Int : 170 ms P-R-T Axes : 088 -01 059 degrees QTc Int : 219 ms Poor data quality, interpretation may be adversely affected Sinus tachycardia Low voltage QRS Abnormal ECG Confirmed by Lion Diego ([id number]) on 09/26/2020 12:48:40 PM Referred By: REFERRED SELF Confirmed By:Yvan Diego
[2020-09-26] MEDS: ALBUT/IPRATROP 3MG/0.5MG NEB 3 ML VIAL INH SCH ×2 (13:03→19:53)
[2020-09-26] MEDS: FORMOTEROL 20 MCG/2 ML VIAL NEB SCH (19:52)
[2020-09-26] MEDS: BUDESONIDE 0.5 MG/2 ML VIAL (PULMICORT) INH SCH (19:52)
[2020-09-26] MEDS: LIDOCAINE 5% 1 PATCH TD SCH (22:44)
[2020-09-27] MEDS: traMADol HCL 50 MG TABLET PO PRN ×2 (03:51→10:33)
[2020-09-27] MEDS: methylPREDNISolone 40 MG in SYRINGE 0 ML IV SCH ×3 (03:52→23:37)
[2020-09-27 07:08] LABS: BUN Creatinine Ratio 28.5 (10-20); Calcium 9.5 mg/dl (8.5-10.1); Creatinine Clr Calc Pharmacy 53.1 ml/min; Est GFR (African American) 69.6; Potassium 4.8 mmol/L (3.5-5.1)
[2020-09-27] MEDS: FORMOTEROL 20 MCG/2 ML VIAL NEB SCH ×2 (07:32→19:10)
[2020-09-27] MEDS: BUDESONIDE 0.5 MG/2 ML VIAL (PULMICORT) INH SCH ×2 (07:32→19:10)
[2020-09-27] MEDS: ALBUT/IPRATROP 3MG/0.5MG NEB 3 ML VIAL INH SCH ×4 (07:32→19:12)
[2020-09-27] MEDS: cefTRIAXone SODIUM 2,000 MG in DEXTROSE 5% 50 ML IV SCH (08:19)
[2020-09-27] MEDS: NYSTATIN SUSP 500,000 U/5 ML UDC PO SCH ×4 (08:20→19:52)
[2020-09-27] MEDS: ENOXAPARIN INJ 40 MG/0.4 ML SYR SQ SCH (08:20)
[2020-09-27] MEDS: INSULIN ASPART 100 UNITS/ML 3 ML PEN SC SCH ×4 (08:21→20:48)
[2020-09-27] MEDS: UMECLIDINIUM BROMIDE 62.5MCG/BLISTER 7 PUFFS/INHALER INH SCH (08:22)
[2020-09-27] MEDS: guaiFENesin 600 MG TABCR PO SCH ×2 (08:22→19:52)
[2020-09-27] MEDS: INSULIN GLARGINE SOLOSTAR 100 UNITS/ML 3 ML PEN SC SCH ×2 (08:22→20:46)
[2020-09-27] MEDS: dilTIAZem HCL 120 MG CAPCR PO SCH (08:23)
[2020-09-27] MEDS ORDERED: AZITHROMYCIN 250 MG in DEXTROSE 5% 250 ML IV SCH (09:00)
--- NOTE | 2020-09-27 15:26 | Hospitalist Progress Note ---
Date of Service September 27, 2020 Assessment & Plan (1) Acute on chronic respiratory failure with hypoxia and hypercapnia: 2nd COPD exacerbation. Mildly improved today. Biofire including COVID-19 neg. Lower steroids to BID dosing. Cont duonebs QID. Cont BIPAP during naps/sleep. Chest x-ray obtained -- no infiltrates. Thus, STOP IV rocephin and IV zithromax. Change to PO doxy in the am. Completed 7 days, in total, of all abx since admission. Aggressive pulmonary toilet. (2) COPD (chronic obstructive pulmonary disease): see above with exacerbation modestly improved today cont home inhalers, IV steroids, etc. 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 INCREASE lantus to 20 units BID. INCREASE novolog correction/carb coverage. (6) Hypertension: Cont CCB Holding ARB 2nd to mild TATY (7) Hyperlipidemia: (8) Candidiasis of mouth and esophagus: nystatin 5cc ac/hs swish/spit (9) Acute exacerbation of chronic low back pain: check lumbar spine x-rays, r/o compression fracture etc d/c tramadol add tylenol 1gm TID scheduled add oxycodone prn PT, OT (10) Acute kidney injury: Peak Cr 1.44 now 0.9 resolved (11) Chronic kidney disease, stage 3a: Baseline CrCl 30-60 bmp am for stability (12) AAA (abdominal aortic aneurysm): now 4cm in diameter quit smoking control lipids 6-12 month imaging needed to follow (13) DVT prophylaxis: lovenox daily Admission and Anticipated Discharge Date Admission Date: September 26, 2020 Subjective tele stable overnight. during the visit the patient was very focused on chronic low back pain. despite receiving her usual tramadol she reports it is helping very little. at one point she apparently threatened AMA to the nursing staff if we "didn't help her pain." pain stays in lumbar spine area and radiates to b/l buttocks but not the legs. denies paresthesias. reports breathing is doing better but still quite dyspneic with minimal activity. continues with cough. eating well. patient does not remember my bedside visit yesterday. Review of Systems Constitutional: no fever Respiratory: + cough, + dyspnea on exertion and + wheezing Cardiovascular: no chest pain Gastrointestinal: no abdominal pain, no nausea and no vomiting Physical Exam Constitutional: + ill appearing (But looks better than yesterday); no acute distress and no altered mental status ENMT: Mouth: + oral mucosal abnormality (thrush plaques improved today) Respiratory: + cough and + tachypneic Auscultation: + diminished lung sounds (very poor air movement all lung segments but improved today) and + wheezes Cardiovascular: Rate/Rhythm: regular rate and regular rhythm Heart Sounds: normal S1 and normal S2; no murmur Vessels: posterior tibial pulses present and dorsalis pedis pulses present; no JVD Extremities: no edema Gastrointestinal (Abdomen): normal bowel sounds, soft, nontender, no hepatosplenomegaly Musculoskeletal: Spine: + lumbar spinal tenderness and + paraspinal tenderness Neurologic: moves all extremities; no focal motor deficits Psychiatric: Orientation: alert and oriented x 3 Affect: + anxious affect Results & Data Results & Data ([facility]) Vital Signs (Past 12 Hours) Vital Signs Temp Pulse Pulse Resp BP Pulse Ox 09/27/20 11:12 37.2 C 87 18 132/64 97 09/27/20 10:47 80 18 93 09/27/20 08:01 36.6 C 90 21 171/81 H 91 09/27/20 08:00 74 09/27/20 07:32 82 16 94 09/27/20 04:25 36.5 C 85 18 145/75 H 95 Laboratory Results Laboratory Results - last 24 hr 09/26/20 09/26/20 09/27/20 16:06 20:41 05:55 Sodium 137 Potassium 4.8 Chloride 103 Carbon Dioxide 31 Anion Gap 3.0 BUN 28 H Creatinine 0.97 Est Cr Clr Drug Dosing 53.1 Est GFR ( Amer) 69.6 Est GFR (Non-Af Amer) 60.0 BUN/Creatinine Ratio 28.5 H Glucose 223 H POC Glucose 184 H 236 H Calcium 9.5 09/27/20 09/27/20 07:28 11:14 Sodium Potassium Chloride Carbon Dioxide Anion Gap BUN Creatinine Est Cr Clr Drug Dosing Est GFR ( Amer) Est GFR (Non-Af Amer) BUN/Creatinine Ratio Glucose POC Glucose 247 H 294 H Calcium PG Care Time/CCT Total # of Minutes Spent Total Time Spent with Patient: Total time spent is greater than 50% in coordination of care (as documented) at patient's floor/unit and/or counseling patient: Coding Level of Care Code 87795 Subseq Hosp Care Lvl 3 Diagnoses Acute on chronic respiratory failure with hypoxia and hypercapnia J96.21; J96.22 COPD (chronic obstructive pulmonary disease) J44.1 COPD type: COPD with acute exacerbation Metabolic encephalopathy G93.41 Tobacco abuse Z72.0 Diabetes mellitus E11.69; Z79.4 Diabetes mellitus complication status: with other specified complication Diabetes mellitus terminal operations manager insulin use: with mcfp use Diabetes mellitus type: type 2 Hypertension I10 Hypertension type: essential hypertension Hyperlipidemia E78.2 Hyperlipidemia type: mixed hyperlipidemia Candidiasis of mouth and esophagus B37.81; B37.0 Acute exacerbation of chronic low back pain M54.5; G89.29 Acute kidney injury N17.9 Chronic kidney disease, stage 3a N18.31 AAA (abdominal aortic aneurysm) I71.4 DVT prophylaxis Z29.9 (1) Diabetes mellitus Diabetes mellitus complication status: with other specified complication Diabetes mellitus terminal operations manager insulin use: with terminal operations manager use Diabetes mellitus type: type 2 Qualified Code(s): E11.69 - Type 2 diabetes mellitus with other specified complication; Z79.4 - skilled nursing (current) use of insulin (2) Hyperlipidemia Hyperlipidemia type: mixed hyperlipidemia Qualified Code(s): E78.2 - Mixed hyperlipidemia (3) COPD (chronic obstructive pulmonary disease) COPD type: COPD with acute exacerbation Qualified Code(s): J44.1 - Chronic obstructive pulmonary disease with (acute) exacerbation (4) Hypertension Hypertension type: essential hypertension Qualified Code(s): I10 - Essential (primary) hypertension
--- NOTE | 2020-09-27 16:44 | XRay Report ---
TWO VIEW CHEST CLINICAL HISTORY: Dyspnea. COPD. FINDINGS: PA and lateral chest radiographs are compared to study dated 09/25/2020 and correlated with chest CT dated 09/26/2020. The cardiomediastinal silhouette is unremarkable noting atherosclerotic [place] cification of the thoracic aorta. Advanced emphysema and chronic interstitial thickening is similar t o previous. No airspace consolidation or pleural effusion is identified. Foci of parenchymal scarring are noted throughout both lungs. There is no pneumothorax. The skeletal structures are osteopenic. T he bony thorax appears intact. IMPRESSION: Advanced emphysematous change with no acute cardiopulmonary abnormality. ACT 112: Negative or not required by law. Electronically signed by: Koby Wallace M.D. 09/27/2020 4:42 PM
--- NOTE | 2020-09-27 16:51 | XRay Report ---
LUMBAR SPINE 5 VIEWS HISTORY: Severe lumbar spine pain. COMPARISON: Lumbar spine radiograph 06/22/2015. FINDINGS: There is no fracture. The bones are osteopenic. Mild dextroscoliosis, unchanged. The sacru m appears intact. There is a 4 cm infrarenal abdominal aortic aneurysm. Mild to moderate disc space n arrowing at L3-L4, L4-5, and L5-S1 with associated facet degenerative changes. 6 mm of anterolisthesi s of L4 on L5, unchanged. IMPRESSION: 1. No fractures within the lumbar spine. 2. A 4 cm infrarenal abdominal aortic aneurysm. [facility] is [facility] 3. Mild to moderate degenerative changes within the lower lumbar spine are again noted. This is simil ar to the prior study. ACT 112: Positive. There are findings on this exam that require communication between the performing entity and the patient following Patient Test Result Information Act ([place] Act 112) guidelines. Electronically signed by: Wicho Gutierrez M.D. 09/27/2020 4:50 PM
[2020-09-27] MEDS: ACETAMINOPHEN 500 MG TAB PO SCH ×2 (16:59→19:51)
[2020-09-27] MEDS: POLYETHYLENE (MIRALAX) 17 GM PACK PO SCH (17:00)
[2020-09-27] MEDS: SENNA 8.6 MG TAB PO SCH (17:00)
[2020-09-27] MEDS: oxyCODONE HCL IR 5 MG TAB (IMMEDIATE RELEASE) PO PRN (19:51)
[2020-09-28] MEDS: oxyCODONE HCL IR 5 MG TAB (IMMEDIATE RELEASE) PO PRN ×5 (03:13→23:32)
[2020-09-28] MEDS: ALBUT/IPRATROP 3MG/0.5MG NEB 3 ML VIAL INH SCH ×4 (07:15→19:30)
[2020-09-28] MEDS: BUDESONIDE 0.5 MG/2 ML VIAL (PULMICORT) INH SCH ×2 (07:15→19:30)
[2020-09-28] MEDS: FORMOTEROL 20 MCG/2 ML VIAL NEB SCH ×2 (07:15→19:30)
[2020-09-28] MEDS: INSULIN ASPART 100 UNITS/ML 3 ML PEN SC SCH ×4 (08:07→20:34)
[2020-09-28] MEDS: INSULIN GLARGINE SOLOSTAR 100 UNITS/ML 3 ML PEN SC SCH ×2 (08:07→20:33)
[2020-09-28] MEDS: DOXYCYCLINE HYCLATE 100 MG CAP PO SCH ×2 (08:08→21:42)
[2020-09-28] MEDS: SENNA 8.6 MG TAB PO SCH (08:09)
[2020-09-28] MEDS: ACETAMINOPHEN 500 MG TAB PO SCH ×3 (08:09→21:14)
[2020-09-28] MEDS: NYSTATIN SUSP 500,000 U/5 ML UDC PO SCH ×4 (08:09→21:15)
[2020-09-28] MEDS: LIDOCAINE 5% 1 PATCH TD SCH ×2 (08:09→08:13)
[2020-09-28] MEDS: dilTIAZem HCL 120 MG CAPCR PO SCH (08:10)
[2020-09-28] MEDS: guaiFENesin 600 MG TABCR PO SCH ×2 (08:10→21:14)
[2020-09-28] MEDS: UMECLIDINIUM BROMIDE 62.5MCG/BLISTER 7 PUFFS/INHALER INH SCH (08:10)
[2020-09-28] MEDS: ENOXAPARIN INJ 40 MG/0.4 ML SYR SQ SCH (08:11)
[2020-09-28] MEDS: POLYETHYLENE (MIRALAX) 17 GM PACK PO SCH ×2 (08:11→21:05)
[2020-09-28] MEDS: methylPREDNISolone 40 MG in SYRINGE 0 ML IV SCH (12:28)
[2020-09-28] MEDS: methylPREDNISolone 30 MG in SYRINGE 0 ML IV SCH (15:51)
--- NOTE | 2020-09-28 19:15 | Hospitalist Progress Note ---
Date of Service September 28, 2020 Assessment & Plan (1) Acute on chronic respiratory failure with hypoxia and hypercapnia: acute component 2nd COPD exacerbation. Markedly improved today. Biofire including COVID-19 neg. Lower steroids to 30mg BID, then likely over to PO prednisone tomorrow. Cont duonebs QID. Cont BIPAP during naps/sleep. Chest x-ray obtained -- no infiltrates. Thus, STOPPED IV rocephin and IV zithromax. Changed to PO doxy today; complete 7 days, in total, of all abx since admission. Aggressive pulmonary toilet. Wean O2 as tolerated back to typical amount of 4 L NC. (2) COPD (chronic obstructive pulmonary disease): see above with exacerbation IMPROVED cont home inhalers, IV steroids, etc. (3) Metabolic encephalopathy: 2nd resp acidosis cannot rule out toxic encephalopathy from inapprorpriate use of tramadol at home either way resolved (4) Tobacco abuse: phone counselor to quit (5) Diabetes mellitus: UNCONTROLLED 2nd to steroids. INCREASE lantus to 30 units BID. INCREASE novolog correction/carb coverage again. low threshold for IV insulin. if Cr is stable in am -- add back metformin. (6) Hypertension: Cont CCB resume ARB if Cr is normal in am (7) Hyperlipidemia: (8) Candidiasis of mouth and esophagus: nystatin 5cc ac/hs swish/spit resolved (9) Acute exacerbation of chronic low back pain: cont tylenol 1gm TID scheduled cont oxycodone prn PT, OT - did well with each l-spine x-rays reviewed -mod- severe DJD (10) Acute kidney injury: Peak Cr 1.44 now 0.9 resolved (11) Chronic kidney disease, stage 3a: Baseline CrCl 30-60 Cr in am (12) AAA (abdominal aortic aneurysm): now 4cm in diameter quit smoking control lipids 6-12 month imaging needed to follow (13) DVT prophylaxis: lovenox daily updated tonight hopefully home tomorrow or Friday ok to Tx to med/surg Admission and Anticipated Discharge Date Admission Date: September 26, 2020 Subjective patient feeling much better today. tele wnl. cough is improved. dyspnea improved. worked well with PT today. O2 at 5 liters; usually uses 4 Liters. eating well. back pain improved with oxycodone prn. Review of Systems Constitutional: no fever, no chills, no body aches, no fatigue and no anorexia Respiratory: + cough and + wheezing Cardiovascular: no chest pain Gastrointestinal: no abdominal pain Physical Exam Constitutional: no acute distress and no altered mental status ENMT: Mouth: + oral mucosal abnormality (thrush plaques resolved) Respiratory: + cough Auscultation: + wheezes (markedly improved today ); no diminished lung sounds (airation improved today ) Cardiovascular: Rate/Rhythm: regular rate and regular rhythm Heart Sounds: normal S1 and normal S2; no murmur Vessels: posterior tibial pulses present and dorsalis pedis pulses present; no JVD Extremities: no edema Gastrointestinal (Abdomen): normal bowel sounds, soft, nontender, no hepatosplenomegaly Psychiatric: Orientation: alert and oriented x 3 Results & Data Results & Data ([facility]) Vital Signs (Past 12 Hours) Vital Signs Temp Pulse Pulse Pulse Resp BP Pulse Ox 09/28/20 16:01 66 18 92 09/28/20 16:00 71 09/28/20 15:46 37.3 C 74 24 160/72 H 92 09/28/20 15:16 92 09/28/20 11:12 37.0 C 79 18 152/71 H 90 09/28/20 10:51 75 16 90 09/28/20 07:34 36.7 C 86 18 177/79 H 91 09/28/20 07:32 65 09/28/20 07:16 63 20 92 Laboratory Results Laboratory Results - last 24 hr 09/27/20 09/28/20 09/28/20 20:31 07:32 11:30 POC Glucose 328 H* 283 H 369 H* 09/28/20 09/28/20 11:31 16:25 POC Glucose 342 H* 158 H PG Care Time/CCT Total # of Minutes Spent Total Time Spent with Patient: Total time spent is greater than 50% in coordination of care (as documented) at patient's floor/unit and/or counseling patient: Coding Level of Care Code 86481 Subseq Hosp Care Lvl 3 Diagnoses Acute on chronic respiratory failure with hypoxia and hypercapnia J96.21; J96.22 COPD (chronic obstructive pulmonary disease) J44.1 COPD type: COPD with acute exacerbation Metabolic encephalopathy G93.41 Tobacco abuse Z72.0 Diabetes mellitus E11.69; Z79.4 Diabetes mellitus complication status: with other specified complication Diabetes mellitus detention insulin use: with detention use Diabetes mellitus type: type 2 Hypertension I10 Hypertension type: essential hypertension Hyperlipidemia E78.2 Hyperlipidemia type: mixed hyperlipidemia Candidiasis of mouth and esophagus B37.81; B37.0 Acute exacerbation of chronic low back pain M54.5; G89.29 Acute kidney injury N17.9 Chronic kidney disease, stage 3a N18.31 AAA (abdominal aortic aneurysm) I71.4 DVT prophylaxis Z29.9 (1) Diabetes mellitus Diabetes mellitus complication status: with other specified complication Diabetes mellitus detention insulin use: with tank terminal gauger use Diabetes mellitus type: type 2 Qualified Code(s): E11.69 - Type 2 diabetes mellitus with other specified complication; Z79.4 - half-way (current) use of insulin (2) Hyperlipidemia Hyperlipidemia type: mixed hyperlipidemia Qualified Code(s): E78.2 - Mixed hyperlipidemia (3) COPD (chronic obstructive pulmonary disease) COPD type: COPD with acute exacerbation Qualified Code(s): J44.1 - Chronic obstructive pulmonary disease with (acute) exacerbation (4) Hypertension Hypertension type: essential hypertension Qualified Code(s): I10 - Essential (primary) hypertension
[2020-09-29] MEDS: methylPREDNISolone 30 MG in SYRINGE 0 ML IV SCH (03:16)
[2020-09-29] MEDS: oxyCODONE HCL IR 5 MG TAB (IMMEDIATE RELEASE) PO PRN ×5 (03:33→23:49)
[2020-09-29 06:51] LABS: Creatinine Clr Calc Pharmacy 50.7 ml/min; Est GFR (African American) 65.5; Est GFR (Non-African American) 56.5
[2020-09-29] MEDS: FORMOTEROL 20 MCG/2 ML VIAL NEB SCH ×2 (07:04→19:40)
[2020-09-29] MEDS: BUDESONIDE 0.5 MG/2 ML VIAL (PULMICORT) INH SCH ×2 (07:04→19:40)
[2020-09-29] MEDS: ALBUT/IPRATROP 3MG/0.5MG NEB 3 ML VIAL INH SCH ×4 (07:04→19:40)
[2020-09-29] MEDS: SENNA 8.6 MG TAB PO SCH (08:26)
[2020-09-29] MEDS: LIDOCAINE 5% 1 PATCH TD SCH (08:26)
[2020-09-29] MEDS: ACETAMINOPHEN 500 MG TAB PO SCH ×3 (08:26→21:17)
[2020-09-29] MEDS: POLYETHYLENE (MIRALAX) 17 GM PACK PO SCH ×2 (08:26→21:17)
[2020-09-29] MEDS: INSULIN ASPART 100 UNITS/ML 3 ML PEN SC SCH ×4 (08:27→21:17)
[2020-09-29] MEDS: DOXYCYCLINE HYCLATE 100 MG CAP PO SCH ×2 (08:27→21:17)
[2020-09-29] MEDS: INSULIN GLARGINE SOLOSTAR 100 UNITS/ML 3 ML PEN SC SCH (08:28)
[2020-09-29] MEDS: ENOXAPARIN INJ 40 MG/0.4 ML SYR SQ SCH (08:28)
[2020-09-29] MEDS: guaiFENesin 600 MG TABCR PO SCH ×2 (08:28→21:17)
[2020-09-29] MEDS: NYSTATIN SUSP 500,000 U/5 ML UDC PO SCH ×4 (08:28→21:16)
[2020-09-29] MEDS: dilTIAZem HCL 120 MG CAPCR PO SCH (08:29)
[2020-09-29] MEDS: UMECLIDINIUM BROMIDE 62.5MCG/BLISTER 7 PUFFS/INHALER INH SCH (08:29)
[2020-09-29] MEDS ORDERED: INSULIN GLARGINE SOLOSTAR 100 UNITS/ML 3 ML PEN SC ONE (09:15)
[2020-09-29] MEDS: metFORMIN HCL 500 MG TAB PO SCH ×2 (09:37→17:59)
[2020-09-29] MEDS: LOSARTAN POTASSIUM 50 MG TAB PO SCH (09:37)
[2020-09-29] MEDS ORDERED: INSULIN GLARGINE SOLOSTAR 100 UNITS/ML 3 ML PEN SC SCH (21:00)
--- NOTE | 2020-09-29 22:15 | Hospitalist Progress Note ---
Date of Service September 29, 2020 Assessment & Plan (1) Acute on chronic respiratory failure with hypoxia and hypercapnia: acute component 2nd COPD exacerbation. Continues to improve. stop IV steroids; change to po prednisone in am. cont pulmonary toilet. Biofire including COVID-19 neg. Cont duonebs QID. Cont BIPAP during naps/sleep. Chest x-ray obtained -- no infiltrates. Cont doxy; day #2. Aggressive pulmonary toilet. Wean O2 as tolerated back to typical amount of 4 L NC. (2) COPD (chronic obstructive pulmonary disease): see above with exacerbation IMPROVED cont home inhalers, IV steroids, etc. (3) Metabolic encephalopathy: 2nd resp acidosis cannot rule out toxic encephalopathy from inappropriate use of tramadol at home either way resolved and mental status continues to be normal (4) Tobacco abuse: industrial relations counselor to quit (5) Diabetes mellitus: UNCONTROLLED 2nd to steroids, but then had low at dinner. metformin resumed today. lower lantus back to 35 unit once daily. Decrease novolog correction/carb coverage again. (6) Hypertension: Cont CCB resume ARB (7) Hyperlipidemia: (8) Candidiasis of mouth and esophagus: nystatin 5cc ac/hs swish/spit resolved (9) Acute exacerbation of chronic low back pain: cont tylenol 1gm TID scheduled cont oxycodone prn PT, OT - did well with each l-spine x-rays reviewed -mod- severe DJD f/u with PCP for this after discharge (10) Acute kidney injury: Peak Cr 1.44 now 0.9 resolved (11) Chronic kidney disease, stage 3a: Baseline CrCl 30-60 Cr in am (12) AAA (abdominal aortic aneurysm): 4cm in diameter quit smoking control lipids 6-12 month imaging needed to follow (13) DVT prophylaxis: lovenox daily d/c tomorrow am Admission and Anticipated Discharge Date Admission Date: September 26, 2020 Subjective patient adamant about going home. however, she is still requiring more O2 at rest than usual, and had low blood sugar at dinner time. she is feeling back to baseline despite the above. cough is nonproductive. she is eating well. ambulating w/o significant BATES. after discussing benefits/pros of staying in hospital she was agreeable to d/c on Friday. Review of Systems Constitutional: no fever and no chills Respiratory: + wheezing Cardiovascular: no chest pain Gastrointestinal: no nausea and no vomiting Physical Exam Constitutional: no acute distress and no altered mental status ENMT: Mouth: + oral mucosal abnormality (thrush plaques resolved) Respiratory: Auscultation: + wheezes (markedly improved today ); no diminished lung sounds (airation improved today ) Cardiovascular: Rate/Rhythm: regular rate and regular rhythm Heart Sounds: normal S1 and normal S2; no murmur Vessels: posterior tibial pulses present and dorsalis pedis pulses present; no JVD Extremities: no edema Gastrointestinal (Abdomen): normal bowel sounds, soft, nontender, no hepatosplenomegaly Psychiatric: Orientation: alert and oriented x 3 Results & Data Results & Data ([facility]) Vital Signs (Past 12 Hours) Vital Signs Temp Pulse Pulse Pulse Pulse Pulse Resp 09/29/20 19:41 77 22 09/29/20 18:01 89 90 89 88 09/29/20 15:19 74 22 09/29/20 15:07 36.9 C 80 22 09/29/20 14:25 09/29/20 11:21 79 20 Resp Resp Resp Resp BP Pulse Ox Pulse Ox 09/29/20 19:41 94 09/29/20 18:01 20 20 16 18 89 L 09/29/20 15:19 94 09/29/20 15:07 137/74 90 09/29/20 14:25 88 L 09/29/20 11:21 94 Pulse Ox Pulse Ox Pulse Ox 09/29/20 19:41 09/29/20 18:01 87 L 90 93 09/29/20 15:19 09/29/20 15:07 09/29/20 14:25 09/29/20 11:21 Laboratory Results Laboratory Results - last 24 hr 09/29/20 09/29/20 09/29/20 05:28 07:55 11:50 Creatinine 1.02 Est Cr Clr Drug Dosing 50.7 Est GFR ( Amer) 65.5 Est GFR (Non-Af Amer) 56.5 POC Glucose 289 H 304 H* 09/29/20 09/29/20 09/29/20 11:52 11:53 16:50 Creatinine Est Cr Clr Drug Dosing Est GFR ( Amer) Est GFR (Non-Af Amer) POC Glucose 288 H 281 H 62 L* 1109/29/20 09/29/20 16:51 17:09 20:03 Creatinine Est Cr Clr Drug Dosing Est GFR ( Amer) Est GFR (Non-Af Amer) POC Glucose 67 L* 93 174 H PG Care Time/CCT Total # of Minutes Spent Total Time Spent with Patient: Total time spent is greater than 50% in coordination of care (as documented) at patient's floor/unit and/or counseling patient: Coding Level of Care Code 44181 Subseq Hosp Care Lvl 2 Diagnoses Acute on chronic respiratory failure with hypoxia and hypercapnia J96.21; J96.22 COPD (chronic obstructive pulmonary disease) J44.1 COPD type: COPD with acute exacerbation Metabolic encephalopathy G93.41 Tobacco abuse Z72.0 Diabetes mellitus E11.69; Z79.4 Diabetes mellitus complication status: with other specified complication Diabetes mellitus intermediate project manager insulin use: with alf use Diabetes mellitus type: type 2 Hypertension I10 Hypertension type: essential hypertension Hyperlipidemia E78.2 Hyperlipidemia type: mixed hyperlipidemia Candidiasis of mouth and esophagus B37.81; B37.0 Acute exacerbation of chronic low back pain M54.5; G89.29 Acute kidney injury N17.9 Chronic kidney disease, stage 3a N18.31 AAA (abdominal aortic aneurysm) I71.4 DVT prophylaxis Z29.9 (1) Diabetes mellitus Diabetes mellitus complication status: with other specified complication Diabetes mellitus alf insulin use: with intermediate project manager use Diabetes mellitus type: type 2 Qualified Code(s): E11.69 - Type 2 diabetes mellitus with other specified complication; Z79.4 - intermediate project manager (current) use of insulin (2) Hyperlipidemia Hyperlipidemia type: mixed hyperlipidemia Qualified Code(s): E78.2 - Mixed hyperlipidemia (3) COPD (chronic obstructive pulmonary disease) COPD type: COPD with acute exacerbation Qualified Code(s): J44.1 - Chronic obstructive pulmonary disease with (acute) exacerbation (4) Hypertension Hypertension type: essential hypertension Qualified Code(s): I10 - Essential (primary) hypertension
[2020-09-30] MEDS: oxyCODONE HCL IR 5 MG TAB (IMMEDIATE RELEASE) PO PRN ×2 (04:02→08:36)
[2020-09-30 07:09] LABS: Hematocrit (blood only) 36.2 % (37-47); Hemoglobin 10.8 g/dL (12.0-16.0); Mean Corpuscular Hemoglobin 26.7 pg (25-34); Mean Corpuscular Hgb Conc 29.8 g/dL (32-36); Mean Corpuscular Volume 89.6 fL (80-100); Mean Platelet Volume 10.4 fL (7.4-10.4); Nucleated RBC # (auto) 0.33 K/uL (0-0); Nucleated RBC % (auto) 3.2 %; Platelet Count 348 K/uL (130-400); RDW Coefficient of Variation 17.7 % (11.5-14.5); RDW Standard Deviation 57.3 fL (36.4-46.3); Red Blood Count 4.04 M/uL (4.2-5.4); White Blood Count 10.42 K/uL (4.8-10.8)
[2020-09-30] MEDS: FORMOTEROL 20 MCG/2 ML VIAL NEB SCH (07:19)
[2020-09-30] MEDS: BUDESONIDE 0.5 MG/2 ML VIAL (PULMICORT) INH SCH (07:19)
[2020-09-30] MEDS: ALBUT/IPRATROP 3MG/0.5MG NEB 3 ML VIAL INH SCH ×2 (07:20→11:18)
[2020-09-30 07:44] LABS: BUN Creatinine Ratio 25.8 (10-20); Calcium 8.8 mg/dl (8.5-10.1); Creatinine Clr Calc Pharmacy 54.4 ml/min; Est GFR (African American) 70.4; Est GFR (Non-African American) 60.8
[2020-09-30] MEDS: INSULIN ASPART 100 UNITS/ML 3 ML PEN SC SCH ×2 (08:37→12:15)
[2020-09-30] MEDS: UMECLIDINIUM BROMIDE 62.5MCG/BLISTER 7 PUFFS/INHALER INH SCH (08:37)
[2020-09-30] MEDS: metFORMIN HCL 500 MG TAB PO SCH (08:38)
[2020-09-30] MEDS: LOSARTAN POTASSIUM 50 MG TAB PO SCH (08:38)
[2020-09-30] MEDS: NYSTATIN SUSP 500,000 U/5 ML UDC PO SCH (08:38)
[2020-09-30] MEDS: DOXYCYCLINE HYCLATE 100 MG CAP PO SCH (08:38)
[2020-09-30] MEDS: dilTIAZem HCL 120 MG CAPCR PO SCH (08:38)
[2020-09-30] MEDS: ENOXAPARIN INJ 40 MG/0.4 ML SYR SQ SCH (08:39)
[2020-09-30] MEDS: guaiFENesin 600 MG TABCR PO SCH (08:39)
[2020-09-30] MEDS: SENNA 8.6 MG TAB PO SCH (08:40)
[2020-09-30] MEDS: POLYETHYLENE (MIRALAX) 17 GM PACK PO SCH (08:40)
[2020-09-30] MEDS: LIDOCAINE 5% 1 PATCH TD SCH (08:40)
[2020-09-30] MEDS: ACETAMINOPHEN 500 MG TAB PO SCH (08:44)
[2020-09-30] MEDS ORDERED: INSULIN GLARGINE SOLOSTAR 100 UNITS/ML 3 ML PEN SC SCH (09:00)
[2020-09-30] MEDS ORDERED: predniSONE 20 MG TAB PO SCH (09:00)
--- NOTE | 2020-09-30 11:31 | Discharge Summary ---
[facility] date of discharge September 30, 2020 Admission HPI Per Admitting Provider History is limited, patient obtunded on exam. Below is gathered from collateral. By collateral review Daniella is a 70-year-old female with a past medical history of obesity, abdominal aortic aneurysm, COPD with baseline 3 L oxygen dependency, recurrent pneumonia, osteoarthritis, diabetes, and chronic low back pain with a recent hospital admission from 08/29/2210 hypoxic respiratory failure requiring BiPAP. Per report she was evaluated by EMS multiple times earlier in the day before being transported to the emergency department for confusion respiratory failure Principal Diagnosis acute/chronic hypoxic/hypercarbic respiratory failure Discharge Exam Constitutional no acute distress and no altered mental status ENMT Mouth: + oral mucosal abnormality (thrush plaques resolved) Respiratory + cough Auscultation: + wheezes (miniml ); no diminished lung sounds (airation improved relative to prior exams) and no crackles Cardiovascular Rate/Rhythm: regular rate and regular rhythm Heart Sounds: normal S1 and normal S2; no murmur Vessels: posterior tibial pulses present and dorsalis pedis pulses present; no JVD Extremities: no edema Gastrointestinal (Abdomen) normal bowel sounds, soft, nontender, no hepatosplenomegaly Musculoskeletal Spine: + lumbar spinal tenderness and + paraspinal tenderness Neurologic moves all extremities; no focal motor deficits Psychiatric Orientation: alert and oriented x 3 Discharge Data Allergies Allergy/AdvReac Type Severity Reaction Status Date / Time diflunisal Allergy Unknown HEART RACES Verified 09/25/20 23:59 Consultations PT, OT Procedures Performed 2-step oxygen test -- 4 liters NC O2 at rest and 6 liters NC O2 with activity Ordered Studies 09/26/20 01:44 CT chest wo con Urgent IMPRESSION: 1. No significant change compared to the 08/29/[address] 2. There are few small scattered peripheral airspace opacities within the lungs most pronounced within the lung bases. This could be due to scarring/atelectasis or a mild chronic infectious change. 3. Emphysema CT head/brain wo con Urgent - no acute process. Lumbar spine x-rays - IMPRESSION: 1. No fractures within the lumbar spine. 2. A 4 cm infrarenal abdominal aortic aneurysm. This is increased in size compared to the 2015 examination when it measured 3 cm. 3. Mild to moderate degenerative changes within the lower lumbar spine are again noted. This is similar to the prior study. Hospital Course (1) Acute on chronic respiratory failure with hypoxia and hypercapnia: Acute component 2nd COPD exacerbation. Improved with BiPAP, IV steroids, nebs, pulmonary toilet, time. Biofire including COVID-19 negative. Subsequent chest x-ray without infiltrates or edema. O2 weaned during the stay to 4 L NC at rest. Will need 6 L NC O2 with activity according to 2-step oxygen test. A lengthy, slow course of oral prednisone will be completed post-discharge as well as a few more days of oral doxycycline. (2) COPD (chronic obstructive pulmonary disease): with exacerbation see above in "acute/chronic respiratory failure" (3) Metabolic encephalopathy: 2nd respiratory acidosis cannot rule out toxic encephalopathy from inappropriate use of tramadol at home either way mental status changes resolved and she returned to neuropsychiatric baseline (4) Tobacco abuse: certified alcohol drug counselor to quit (5) Diabetes mellitus: Uncontrolled 2nd to steroids necessitating use of basal-bolus insulin throughout the stay. Blood sugars improved with such, and metformin was resumed prior to discharge. HbA1C 8.5% in 08/2020. (6) Hypertension: Cont CCB. ARB was held for a portion of her stay due to TATY but resumed prior to discharge. (7) Hyperlipidemia: (8) Candidiasis of mouth and esophagus: nystatin 5cc ac/hs swish/spit resolved (9) Acute exacerbation of chronic low back pain: l-spine x-rays with mod-severe DJD. required use of oxycodone along with tylenol and other measures. a small amount of oxycodone was given at discharge for this. seen by PT/OT - cleared for home. f/u with PCP for chronic low back pain. (10) Acute kidney injury: Peak Cr 1.44 Cr 0.9 prior to discharge (11) Chronic kidney disease, stage 3a: Baseline CrCl 30-59 (12) AAA (abdominal aortic aneurysm): 4cm in diameter quit smoking control lipids 6-12 month imaging needed in follow-up Total Time Total Time Spent Total Time Spent (In Minutes): 45 Total Time Includes: Examination of the Patient, Discharge Planning and Medication Reconciliation Discharge Plan Discharge Items Patient Disposition: Home - Self-Care Reason For Visit: COPD exacerbation Discharge Diagnosis: COPD exacerbation - resolving Activity: As commented below Activity Comment: gradually increase activities over the next 7 days Non-emergency contact: Primary Care Provider and Technologist Development Call non-emergency contact if: you have any medication questions, your symptoms worsen, your pain is not controlled, your pain is worsening, your pain is concerning for you and you have a fever Follow-up/Referrals: Karo Champagne CRNP [Primary Care Provider] - (see your family doctor within 5 days ) Diet: Carb Consistent or DM2 Addtl Attending Provider Instructions: You were treated for COPD exacerbation with BIPAP, IV steroids, antibiotics, and neb treatments. You improved during your stay. You were also given oxycodone as needed for back pain. All respiratory symptoms improved during your hospitalization. The oxycodone helped your back pain. Another COVID-19 test was run and was negative. Recommendations: 1. COPD exacerbation: * start prednisone TOMORROW morning on 10/01/20. Take with food. You will be on the prednisone for 10 days in total. * know that the prednisone will make your blood sugars run high; please watch your diet carefully * use your albuterol-ipratropium nebs FOUR TIMES A DAY for the next 4-5 days; after that you can use as needed * ok to take oyhb-bvz-bgmiwou mucinex up to 1200mg each time twice a day for cough/congestion 2. oxygen: * use 4 liters at rest and with sleep * use 6 liters when you walk or leave your home 3. back pain: * oxycodone/acetaminophen 5mg every 6 hours as needed for pain * DO NOT TAKE THE TRAMADOL WHILE TAKING THE OXYCODONE * DO NOT DRIVE A CAR OR DRINK ALCOHOL IF TAKING OXYCODONE * the oxycodone WILL cause constipation * DO NOT use dckm-fne-uxbzwfb tylenol as the oxycodone pain killer contains tylenol already 4. yeast in mouth: * nystatin solution - 5ml before meals/bedtime swish & spit x 7 days then stop 5. antibiotics: * doxycycline 100mg twice daily for 5 days * know that his medication can cause heartburn * it can also cause a rash if you go out in the sun while taking it; thus, cover up in the sun 6. diabetes: * jardiance once daily * metformin twice daily * again remember that the prednisone WILL INCREASE your blood sugars; watch your diet carefully * if you are having a hard time keeping your blood sugars under 200 please contact your family doctor 7. constipation: * you can use uavu-eum-qpvztuz miralax once or twice a day * if you need additional help you can also take nmye-sgk-opouiwj senna (senakot) 8. AAA (abdominal aneurysm): * aneurysm means that the size of the aorta is enlarged * the aorta is a large artery that comes off the heart and travels through your abdomen * your aneurysm is 4cm in size * you must quit smoking to help keep the aneurysm from getting bigger * we get concerned that at 5.5cm the aneurysm can rupture and cause * if you continue to smoke the aneurysm will indeed continue to grow * you will need a repeat imaging study of the AAA in at least 6 months 9. other: * please quit smoking if at all possible * obtain your FLU shot soon * wear a mask at all times when you leave your home * avoid crowds and continue to socially distance to prevent COVID-19 infection Follow-up - see your family doctor within 5 days Return to [facility] if - * you have fevers over 100 degrees * you have worsening shortness of breath or chest pains * you have to turn up the oxygen beyond 6 liters to keep your oxygen levels within range * any other concerns Pending Studies at Discharge: No Stand-Alone Forms: My [facility], Smoking Cessation Medications and DC Order Prescriptions: New polyethylene glycol 3350 [Miralax] 17 gram Powder In Packet 17 g PO BID Qty: 1 RF: 0 prednisone 10 mg tablet 10 mg PO DIRECTED Qty: 27 RF: 0 (DME) Oxygen Home Liters Per Minute 1 ea .Route .continuous Qty: 1 RF: 0 oxycodone-acetaminophen 5-325 mg tablet 1 tab PO Q6H PRN (Reason: pain) Qty: 15 RF: 0 Continued ipratropium-albuterol 0.5 mg-3 mg(2.5 mg base)/3 mL solution for nebulization 3 ml INHALATION QID PRN (Reason: Shortness Of Breath Or Wheezing) RF: 0 atorvastatin 40 mg tablet 40 mg PO DAILY RF: 0 carvedilol 12.5 mg tablet 12.5 mg PO BID RF: 0 budesonide 0.5 mg/2 mL suspension for nebulization 0.5 mg inhalation BID RF: 0 diltiazem HCl [Cartia XT] 120 mg capsule,extended release 24hr 120 mg PO DAILY RF: 0 aspirin [Aspirin Low Dose] 81 mg Tablet,Delayed Release (Dr/Ec) 81 mg PO DAILY RF: 0 albuterol sulfate 90 mcg/actuation HFA aerosol inhaler 2 puff INHALATION Q6 PRN (Reason: Shortness Of Breath Or Wheezing) RF: 0 losartan 50 mg tablet 50 mg PO DAILY RF: 0 metformin 1,000 mg tablet 1,000 mg PO BID RF: 0 Jardiance 10 mg tablet 10 mg PO DAILY RF: 0 Incruse Ellipta 62.5 mcg/actuation Blister With Device 1 puff inhalation DAILY Qty: 1 RF: 0 Discontinued tramadol 50 mg tablet 50 mg PO BID PRN (Reason: Pain) RF: 0 Discharge Orders: Discharge Order (Routine); Ordered 09/30/20 Ordered By: Anibal Garza Admission Data Admit Date/Time: 09/26/20 01:54 Attending Provider: Anibal Garza Admit Provider: Mj Ann Primary Care Provider: Karo Champagne Other Providers: Michelle Yates Other Interventions: Discharge Summary Assessment (RN) Last Done: 09/30/20 11:58 Coding Level of Care Code D/C Day Management >30 mins Diagnoses Acute on chronic respiratory failure with hypoxia and hypercapnia J96.21; J96.22 COPD (chronic obstructive pulmonary disease) J44.1 COPD type: COPD with acute exacerbation Metabolic encephalopathy G93.41 Tobacco abuse Z72.0 Diabetes mellitus E11.69; Z79.4 Diabetes mellitus complication status: with other specified complication Diabetes mellitus local company intermodal truck driver insulin use: with local company intermodal truck driver use Diabetes mellitus type: type 2 Hypertension I10 Hypertension type: essential hypertension Hyperlipidemia E78.2 Hyperlipidemia type: mixed hyperlipidemia Candidiasis of mouth and esophagus B37.81; B37.0 Acute exacerbation of chronic low back pain M54.5; G89.29 Acute kidney injury N17.9 Chronic kidney disease, stage 3a N18.31 AAA (abdominal aortic aneurysm) I71.4
== END 2020-09-30 13:10 | disposition home or self-care (01) | DRG 189 ==
LOC: ED 22:48 → 2E 09-26 01:54 → SUATTDRO 09-26 01:54 → 2E 09-26 02:43 → 2N 09-28 18:35

== ENCOUNTER 2021-05-30 14:19 | Inpatient (IN) ==
--- NOTE | 2021-05-30 14:51 | Emergency Department Note ---
Impression & Plan Acute hypotension, Acute UTI, Syncope ED Provider Note NAME: DANIELLA FLANNERY AGE: 71 SEX: F : 1950 ARRIVES VIA: Ambulance INFORMANT: Patient ED PROVIDER(S): Elliot Loja DO CHIEF COMPLAINT: ams hypotension HPI: Patient is a 71-year-old female who presents to the ER for low blood pressure. Patient's home nurse came in to evaluate her as she was not feeling well. She was a little bit more confused than baseline. EMS was eventually called. Blood pressures were low in the 70s. Patient denies any headache or change in vision. She does admit to a fall yesterday. She is having some back pain. Denies any dysuria, urgency, or frequency. No cough or runny nose. No chest pain or shortness of breath. No other exacerbating or remitting factors. notes the patient is normally not confused. She also notes that she fell yesterday she believes that she may have passed out. ROS: See above HPI for pertinent positives & negatives. A total of 10 systems reviewed and were otherwise negative. PAST MEDICAL HISTORY:See Below PAST SURGICAL HISTORY:See Below FAMILY HISTORY:See Below SOCIAL HISTORY:See Below HOME MEDICATIONS:See Below ALLERGIES:See Below VITALS:See Below PHYSICAL EXAMINATION: GENERAL: Sitting up in bed, alert, well appearing, well nourished, no distress, non-toxic HEAD: Normocephalic atraumatic EYE EXAM: normal conjunctiva. OROPHARYNX: no exudate, no erythema, lips, buccal mucosa, and tongue normal and mucous membranes are moist NECK: supple, no nuchal rigidity, no adenopathy, non-tender LUNGS: Clear to auscultation. Normal chest wall mechanics HEART: no murmurs, S1 normal and S2 normal ABDOMEN: abdomen soft, non-tender, normo-active bowel sounds, no masses, no rebound or guarding. BACK: Tenderness in the lower lumbar spine around old incision. UPPER EXTREMITIES: upper extremities are grossly normal. LOWER EXTREMITIES: No pitting edema. NEURO EXAM: Oriented to person but not place or year, cranial nerves II-XII grossly intact, normal speech, no gross weakness of arms, no gross weakness of legs. MEDICAL DECISION MAKING: Patient is a 71-year-old female brought in by EMS chronically on 3 L nasal cannula for COPD. Upon arrival she complaining of back pain. She was brought i n by EMS. She was having systolic pressures in the 70s. She was given IV fluids prior to arrival. Pressures did improve upon arrival. Labs show no significant leukocytosis and mild anemia at 9.4. BMP with slightly elevated chloride at 108. LFTs bilirubin was unremarkable. Troponin was negative. Lipase unremarkable. UA with nitrates leuks whites and bacteria. Patient was given IV fluids and IV antibiotics. She was updated bedside. Do favor the confusion and hypotension is likely secondary to the UTI. Updated the via telephone. Patient was admitted for further work-up. She did have a diaz scan secondary to the fall and the confusion showed no acute pathology. Triage Nursing notes reviewed. Limited review of prior medical records performed Vital Signs: reviewed and remarkable for no significant abnormalities Differential diagnosis: Differential diagnoses includes but is not limited to toxic, metabolic, infectious, traumatic, cardiac, neurologic, hematologic, psychiatric and inflammatory etiologies. ER treatment provided: See below Diagnostics interpreted by me: ECG: Sinus rhythm rate of 99 Normal axis No PVCs QTC 492 Cardiac Monitoring: An order was placed for continuous cardiac monitoring. The monitor shows a rate of 92 with sinus rhythm. Laboratory studies: As stated above and show below. Imaging studies: CT diaz scan as discussed above Consultation(s): Discussed the hospitalist for further evaluation Dr. Bryan Procedures: none Critical Care: None Past Med/Surg History Medical History (Updated 05/30/21 @ 19:45 by Elliot Loja DO) AAA (abdominal aortic aneurysm) Chronic low back pain COPD exacerbation Diaphragmatic hernia (10/31/11) History of knee replacement Left peroneal nerve palsy Surgical History H/O Achilles tendon repair (~2007) H/O: hysterectomy History of appendectomy History of bilateral oophorectomies History of lithotripsy (~2007) Hx of cholecystectomy Family History Other Family history non-contributory Social History Smoking Status: Current every day smoker Tobacco Type: Cigarettes Hx Alcohol Use: No Hx Substance Use: No Preferred Language: Yoruba Communication Ability: Effective Straight Truck Driver Required: No Beliefs That Will Affect Care: None Current Living Situation: Spouse Feels Safe at Home: Yes Assistive Devices: Oxygen - Continuous and Walker Allergies Allergies Allergy/AdvReac Type Severity Reaction Status Date / Time diflunisal Allergy Unknown HEART RACES Verified 05/30/21 15:33 Home Meds Home Medications Medication Instructions Recorded Confirmed Jardiance 10 mg PO DAILY 08/28/20 05/30/21 albuterol sulfate 2 puff INHALATION Q6 PRN 08/28/20 05/30/21 aspirin [Aspirin Low Dose] 81 mg PO DAILY 08/28/20 05/30/21 atorvastatin 40 mg PO DAILY 08/28/20 05/30/21 budesonide 0.5 mg INHALATION BID 08/28/20 05/30/21 carvedilol 12.5 mg PO BID 08/28/20 05/30/21 diltiazem HCl [Cartia XT] 120 mg PO DAILY 08/28/20 05/30/21 losartan 50 mg PO DAILY 08/28/20 05/30/21 metformin 1,000 mg PO BID 08/28/20 05/30/21 ipratropium-albuterol 3 ml INHALATION QID PRN 09/25/20 05/30/21 oxycodone 5 mg PO TID PRN 05/13/21 05/30/21 polyethylene glycol 3350 [Miralax] 17 g PO BID PRN 05/13/21 05/30/21 Previous Rx's Medication Instructions Recorded ondansetron HCl [Zofran] 4 mg PO Q6H PRN #6 tab 05/13/21 Results & Data (ED) Vital Signs Vital Signs - 24 hr 05/30/21 14:30 05/30/21 14:40 05/30/21 14:50 Temperature 37.7 C H Temperature Source Oral Pulse Rate 82 82 82 Pulse Rate [Apical] 82 Pulse Rate from SpO2 Sensor 81 Respiratory Rate 24 20 20 Respiratory Effort / Characteristics Non-Labored Spontaneous Respiratory Depth Normal Respiratory Pattern Regular Blood Pressure 99/53 L 105/57 L Blood Pressure [Right Arm] 105/57 L Blood Pressure Mean 68 73 Blood Pressure Mean [Right Arm] 73 Pulse Oximetry 98 98 98 Oxygen Delivery Method Nasal Cannula Nasal Cannula Nasal Cannula Oxygen Flow Rate 3 3 3 Sepsis Recent Fever Within 48 Hours No Sepsis New/Unexplained Change in Mental Status No Sepsis Action Taken by Nursing No Action Required 05/30/21 15:00 05/30/21 16:00 05/30/21 16:30 Temperature Temperature Source Pulse Rate 80 81 81 Pulse Rate [Apical] Pulse Rate from SpO2 Sensor 80 82 Respiratory Rate 24 20 23 Respiratory Effort / Characteristics Respiratory Depth Respiratory Pattern Blood Pressure 111/50 L 111/58 L 111/54 L Blood Pressure [Right Arm] Blood Pressure Mean 70 75 73 Blood Pressure Mean [Right Arm] Pulse Oximetry 98 99 99 Oxygen Delivery Method Nasal Cannula Nasal Cannula Nasal Cannula Oxygen Flow Rate 3 3 3 Sepsis Recent Fever Within 48 Hours Sepsis New/Unexplained Change in Mental Status Sepsis Action Taken by Nursing 05/30/21 17:00 05/30/21 17:30 05/30/21 18:00 Temperature Temperature Source Pulse Rate 83 84 80 Pulse Rate [Apical] Pulse Rate from SpO2 Sensor 83 83 80 Respiratory Rate 22 22 22 Respiratory Effort / Characteristics Respiratory Depth Respiratory Pattern Blood Pressure 111/48 L 107/52 L 92/48 L Blood Pressure [Right Arm] Blood Pressure Mean 69 70 62 Blood Pressure Mean [Right Arm] Pulse Oximetry 100 97 92 Oxygen Delivery Method Nasal Cannula Nasal Cannula Nasal Cannula Oxygen Flow Rate 3 3 3 Sepsis Recent Fever Within 48 Hours Sepsis New/Unexplained Change in Mental Status Sepsis Action Taken by Nursing Laboratory Data Result diagrams: 05/30/21 14:00 05/30/21 14:00 Lab Results 05/30/21 05/30/21 05/30/21 Range/Units 14:00 14:00 15:59 WBC 8.82 (4.8-10.8) K/uL RBC 3.62 L (4.2-5.4) M/uL Hgb 9.4 L (12.0-16.0) g/dL Hct 32.1 L (37-47) % MCV 88.7 (80-100) fL MCH 26.0 (25-34) pg MCHC 29.3 L (32-36) g/dL RDW Std Deviation 66.6 H (36.4-46.3) fL RDW Coeff of Dorcas 20.1 H (11.5-14.5) % Plt Count 379 (130-400) K/uL MPV 9.8 (7.4-10.4) fL Immature Gran % (Auto) 0.2 % Neut % (Auto) 69.8 % Lymph % (Auto) 18.6 % Robertson % (Auto) 8.8 % Eos % (Auto) 2.4 % Baso % (Auto) 0.2 % Neut # (Auto) 6.15 (1.4-6.5) K/uL Lymph # (Auto) 1.64 (1.2-3.4) K/uL Robertson # (Auto) 0.78 H (0.11-0.59) K/uL Eos # (Auto) 0.21 (0-0.5) K/uL Baso # (Auto) 0.02 (0-0.2) K/uL Immature Gran # (Auto) 0.02 (0.00-0.02) K/uL Anisocytosis Present Acanthocytes (Spur) 1+ Sodium 140 (136-145) mmol/L Potassium 4.7 (3.5-5.1) mmol/L Chloride 108 H (98-107) mmol/L Carbon Dioxide 27 (21-32) mmol/L Anion Gap 5.0 (3-11) BUN 23 H (7-18) mg/dl Creatinine 1.35 H (0.6-1.2) mg/dl Est Cr Clr Drug Dosing 35.9 ml/min Est GFR ( Amer) 46.3 ml/min Est GFR (Non-Af Amer) 40.0 ml/min BUN/Creatinine Ratio 16.8 (10-20) Glucose 152 H (70-99) mg/dl Lactate 1.0 (0.4-2.0) mmol/L Calcium 8.6 (8.5-10.1) mg/dl Total Bilirubin 0.3 (0.2-1) mg/dl AST 8 L (15-37) U/L ALT 13 (12-78) U/L Alkaline Phosphatase 86 (45-117) U/L Troponin I < 0.015 (0-0.045) ng/ml Total Protein 6.3 L (6.4-8.2) gm/dl Albumin 2.9 L (3.4-5.0) gm/dl Globulin 3.4 (2.5-4.0) gm/dl Albumin/Globulin Ratio 0.9 (0.9-2) Lipase 138 (73-393) U/L Urine Color Urine Appearance (Clear) Urine pH (4.5-7.5) Ur Specific Gilman (1.000-1.030) Urine Protein (Negative) Urine Glucose (UA) (Negative) Urine Ketones (Negative) Urine Blood (Negative) Urine Nitrite (Negative) Urine Bilirubin (Negative) Urine Urobilinogen (Negative) Ur Leukocyte Esterase (Negative) Urine WBC (Auto) (0-5) /hpf Urine RBC (Auto) (0-4) /hpf U Hyaline Cast (Auto) (0-5) /lpf U Epithel Cells (Auto) (0-5) /lpf Urine Bacteria (Auto) (Negative) Urine Yeast (None Prsent) 05/30/21 Range/Units 16:56 WBC (4.8-10.8) K/uL RBC (4.2-5.4) M/uL Hgb (12.0-16.0) g/dL Hct (37-47) % MCV (80-100) fL MCH (25-34) pg MCHC (32-36) g/dL RDW Std Deviation (36.4-46.3) fL RDW Coeff of Dorcas (11.5-14.5) % Plt Count (130-400) K/uL MPV (7.4-10.4) fL Immature Gran % (Auto) % Neut % (Auto) % Lymph % (Auto) % Robertson % (Auto) % Eos % (Auto) % Baso % (Auto) % Neut # (Auto) (1.4-6.5) K/uL Lymph # (Auto) (1.2-3.4) K/uL Robertson # (Auto) (0.11-0.59) K/uL Eos # (Auto) (0-0.5) K/uL Baso # (Auto) (0-0.2) K/uL Immature Gran # (Auto) (0.00-0.02) K/uL Anisocytosis Acanthocytes (Spur) Sodium (136-145) mmol/L Potassium (3.5-5.1) mmol/L Chloride (98-107) mmol/L Carbon Dioxide (21-32) mmol/L Anion Gap (3-11) BUN (7-18) mg/dl Creatinine (0.6-1.2) mg/dl Est Cr Clr Drug Dosing ml/min Est GFR ( Amer) ml/min Est GFR (Non-Af Amer) ml/min BUN/Creatinine Ratio (10-20) Glucose (70-99) mg/dl Lactate (0.4-2.0) mmol/L Calcium (8.5-10.1) mg/dl Total Bilirubin (0.2-1) mg/dl AST (15-37) U/L ALT (12-78) U/L Alkaline Phosphatase (45-117) U/L Troponin I (0-0.045) ng/ml Total Protein (6.4-8.2) gm/dl Albumin (3.4-5.0) gm/dl Globulin (2.5-4.0) gm/dl Albumin/Globulin Ratio (0.9-2) Lipase (73-393) U/L Urine Color Yellow Urine Appearance Cloudy A (Clear) Urine pH 5.0 (4.5-7.5) Ur Specific Gilman > 1.045 H (1.000-1.030) Urine Protein Negative (Negative) Urine Glucose (UA) 3+ H (Negative) Urine Ketones Negative (Negative) Urine Blood Negative (Negative) Urine Nitrite Positive A (Negative) Urine Bilirubin Negative (Negative) Urine Urobilinogen Negative (Negative) Ur Leukocyte Esterase Trace H (Negative) Urine WBC (Auto) 10-30 H (0-5) /hpf Urine RBC (Auto) 0-4 (0-4) /hpf U Hyaline Cast (Auto) 1-5 (0-5) /lpf U Epithel Cells (Auto) 0-5 (0-5) /lpf Urine Bacteria (Auto) 2+ H (Negative) Urine Yeast Present A (None Prsent) Administered Medications Discontinued Medications Ceftriaxone Sodium (Rocephin) 1,000 mg in 50 mls @ 100 mls/hr IV NOW STA Stop: 05/30/21 17:52 Last Infusion: 05/30/21 18:12 Dose: 0 mls/hr Documented by: [id number] Admin: 05/30/21 17:31 Dose: 100 mls/hr Documented by: [id number] Sodium Chloride (Nss) 500 mls @ 999 mls/hr IV .Q31M ONE Stop: 05/30/21 18:00 Last Admin: 05/30/21 18:14 Dose: 999 mls/hr Documented by: [id number] Ioversol (Optiray 320 100ml) 93 ml IV ONCE ONE Stop: 05/30/21 15:50 Last Admin: 05/30/21 15:49 Dose: 93 ml Documented by: [id number] Imaging Data Radiologist's Impression: Abdomen/Pelvis CT 05/30/21 14:46 CT SCAN OF THE ABDOMEN AND PELVIS WITH IV CONTRAST CLINICAL HISTORY: Trauma. Hypotension. Fall. COMPARISON STUDY: Abdominal CT dated 05/13/2021. TECHNIQUE: Following the IV administration of 93 cc of Optiray 320, CT scan of the abdomen and pelvis is performed from the lung bases to the proximal femora. Images are reviewed in the axial, sagittal, and coronal planes. IV contrast was administered without complication. A dose lowering technique was utilized adhering to the principles of ALARA. FINDINGS: Lung bases: The heart is normal in size and without pericardial effusion. The c oronary arteries are densely calcified. A tiny hiatal hernia is noted. Advanced and edematous change is seen at the lung bases. There is bibasilar scarring and/atelectasis. Scattered calcified granulomas are observed. Liver: The contrast-enhanced liver is normal in size, contour, and attenuation. There is minimal central intrahepatic biliary ductal dilatation. The hepatic veins and portal veins are patent. Gallbladder: Surgically absent noting clips in the gallbladder fossa. Spleen: Normal in size and attenuation. There are numerous calcified splenic granulomas. Pancreas: Prominence of the pancreatic duct is similar to previous. The pancreas is moderately atrophic and otherwise grossly unremarkable. Adrenal glands: Bilateral adrenal nodules are similar to previous. Kidneys: The contrast enhanced kidneys demonstrate mild cortical atrophy and are without hydronephrosis. The kidneys enhance symmetrically. Abdominal vasculature: There is advanced atherosclerotic calcification of the abdominal aorta. An infrarenal abdominal aortic aneurysm measures 3.4 x 3.7 cm (AP x transverse). The aneurysm sac extends 5.4 cm in craniocaudal length. Bowel: There is mild colonic diverticulosis without CT evidence of acute diverticulitis. No bowel obstruction is seen. Submucosal fat deposition is noted throughout the right colon. The appendix is not visualized. Peritoneum: There is no intraperitoneal free air or abdominal ascites. There is a fat-containing umbilical hernia. Lymphadenopathy: None. Pelvic viscera: Small foci of gas are present within the bladder lumen. The uterus is surgically absent. No adnexal lesion is seen. Skeletal structures: The skeletal structures are osteopenic. The lumbosacral spine, bony pelvis, and proximal femora appear intact. There is moderate lumbo sacral spondylosis. No lytic or blastic lesions are seen. A 2.5 cm benign- appearing sclerotic lesion is again seen in the right femoral neck, possibly representing an enchondroma. 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 IMPRESSION: 1. There is no evidence of solid organ injury in the abdomen or pelvis. 2. 3.4 x 3.7 cm infrarenal abdominal aneurysm is unchanged. 3. Advanced emphysema. 4. Nonspecific gas within the bladder lumen may be related to instrumentation. Correlation with clinical findings and urinalysis will be required. 5. Additional findings as above. ACT 112: Negative or not required by law. Electronically signed by: Koby Wallace M.D. 05/30/2021 4:[address] 05/30/21 14:46 CT SCAN OF THE CERVICAL SPINE CLINICAL HISTORY: Fall. Neck pain. COMPARISON STUDY: Radiographs of the cervical spine dated 05/04/2014. TECHNIQUE: CT scan of the cervical spine is performed from the skull base to the upper thoracic spine. Images are reviewed in the axial, sagittal, and coronal planes. IV contrast was not administered for this examination. A dose lowering technique was utilized adhering to the principles of ALARA. FINDINGS: Skeletal structures: The skeletal structures are osteopenic. There is no evidence of fracture or subluxation involving the cervical spine. Vertebral body height and alignment are maintained. Anterior osteophytes are seen throughout. There is mild straightening of the cervical lordosis. The odontoid process and lateral masses are intact. The atlantoaxial articulation is preserved noting advanced productive degenerative change. The spinous processes appear intact. There is moderate multilevel cervical spondylosis. Uncovertebral and facet arthropathy contribute to neural foraminal stenosis at several levels. Intervertebral discs: The disc spaces are well maintained. Central canal: Grossly patent. Soft tissues: The prevertebral and paraspinous soft tissues are within normal limits. There is atherosclerotic calcification of the carotid bulbs. Calvarium: The visualized calvarium at the skull base appears intact. Brain parenchyma: Partially visualized brain parenchyma at the skull base is within normal limits. Mastoids: There is trace left mastoid effusion. The right mastoid air cells are well pneumatized. Lung apices: Emphysematous change is noted at the lung apices. Apical lung parenchyma is otherwise clear as imaged. IMPRESSION: 1. There is no evidence of fracture or subluxation involving the cervical spine. 2. Osteopenia and spondylotic change as above. 3. Emphysema. ACT 112: Negative or not required by law. Electronically signed by: Koby Wallace M.D. 05/30/2021 4:[address] 05/30/21 14:46 CT OF THE CHEST WITH IV CONTRAST CLINICAL HISTORY: fall COMPARISON STUDY: October 23, 2020 TECHNIQUE: Following the IV administration of 93 mL of Optiray, CT of the thorax was performed from the thoracic inlet to the lung bases. Images are reviewed in the axial, sagittal, and coronal planes. IV contrast was administered without complication. A dose lowering technique was utilized adhering to the principles of ALARA. CT DOSE: FINDINGS: There is no axillary, supra clavicle or internal mammary lymphadenopathy seen. Multiple mediastinal lymph nodes are again seen, appear prominent measuring up to 1.1 cm in short axis. Calcified nonenlarged hilar lymph nodes are again seen. Thyroid: Imaged portions of the thyroid gland are normal in appearance. Thoracic aorta: The thoracic aorta is normal in course and caliber, noting standard 3-vessel arch anatomy. No aneurysm or dissection is seen. Extensive partially calcified plaques are seen within aortic wall. Few with irregular plaques are seen within midportion of descending thoracic aorta. Evaluation is limited on this nondedicated exam. Pulmonary vasculature: Pulmonary vein is slightly dilated measuring up to 3.1 cm in diameter which could be seen in pulmonary hypertension. HEART: The heart is normal in size and configuration, without pericardial effusion. Calcifications of aortic valve are seen. Lungs and pleural spaces: Tracheobronchial tree is patent. Moderate centrilobular upper lobe predominant emphysema is seen. No large infiltrates or consolidative lesions are seen. Redemonstration of nodularity within lingula and right internal lobe as well as large bulla at the right base. No pneumothorax or pulmonary parenchymal laceration is seen. -Interval development of 8mm pulmonary nodule within the right middle lobe (16/187) -Interval development of 13 mm groundglass nodule within the right apex (in/49) Upper abdomen: For abdominal findings please refer to report of CT of abdomen performed at the same time. Skeletal structures: No definite acute fracture or traumatic malalignment is seen however evaluation is limited due to motion artifact. IMPRESSION: 1. No evidence of pneumothorax, pulmonary laceration or acute fracture. 2. Emphysema. 3. Interval development of 8mm pulmonary nodule within the right middle lobe since prior study performed in September 2020. Differential diagnosis include infectious/postinfectious or inflammatory processes versus malignancy. Short- term follow-up with nonenhanced CT of the chest on nonemergency basis in 4-6 weeks is recommended to document resolution. 4. Limited exam due to motion artifact. 5. Dilatation of the pulmonary artery could be seen in pulmonary hypertension. 6. Atherosclerosis. Extensive partial calcified plaques within the aortic wall. Few areas of ulcerated plaques within mid thoracic region as detailed above. ACT 112: Positive. There are findings on this exam that require communication between the performing entity and the patient following Patient Test Result Information Act ([place] Act 112) guidelines. The above report was generated using voice recognition software. It may contain grammatical, syntax or spelling errors. Electronically signed by: Fabiola Solorzano DO 05/30/2021 4:[address] 05/30/21 14:46 CT head/brain wo con CLINICAL HISTORY: [place] COMPARISON STUDY: September 26, 2020. TECHNIQUE: Axial CT of the brain is performed from the vertex to the skull base. IV contrast was not administered for this examination. A dose lowering technique was utilized adhering to the principles of ALARA. CT DOSE: FINDINGS: No acute intracranial hemorrhage, no midline shift or space occupying lesions are seen. Cooper-white matter differentiation is preserved. Evaluation of cranial base is limited due to motion and beam hardening artifact. Redemonstration of calcifications within bilateral basal ganglia. There is no evidence of pathologic ventricular dilatation. No acute depressed skull fractures seen however this is limited exam due to motion artifact. Visualized paranasal sinuses and mastoid air cells are patent and well-aerated. Vascular calcifications are again seen within cranial base. IMPRESSION: No acute intracranial hemorrhage, no midline shift or space occupying lesions. Redemonstration of calcifications within bilateral basal ganglia which could be due to metabolic abnormalities. ACT 112: Negative or not required by law. The above report was generated using voice recognition software. It may contain grammatical, syntax or spelling errors. Electronically signed by: Fabiola Solorzano DO 05/30/2021 3:[address] 05/30/21 14:[address] with intravenous contrast CT DOSE: 3037.12 mGy.cm HISTORY: lower back pain TECHNIQUE: Multiaxial CT images of the lumbar spine were performed and reformatted in the sagittal and coronal plane following the the use of intravenous contrast. A dose lowering technique was utilized adhering to the principles of ALARA. COMPARISON: None. FINDINGS: No fractures within the lumbar spine. There is 4 mm of anterolisthesis of L4 on L5. There is mild disc space narrowing at L3-L4, L4-L5, and L5-S1. No fractures identified within the visualized sacrum. Severe facet degenerative changes at L4-L5 and L5-S1. Moderate facet degenerative changes at L3-L4. There is a partially visualized 3.8 cm infrarenal abdominal aortic aneurysm. Paravertebral soft tissues are unremarkable. There is now noted is made of a 2.1 cm hypodense lesion within the left side of the sacral canal at the S1 level. This favors a Tarlov cyst. There is severe central canal narrowing at L4-L5 and moderate central canal narrowing at L3-L4. Mild dextroscoliosis. IMPRESSION: 1. No fractures within the lumbar spine. 2. Mild dextroscoliosis. This could be positional. 3. Degenerative changes as described above. 4. A 3.8 cm infrarenal abdominal aortic aneurysm. ACT 112: Negative or not required by law. Electronically signed by: Wicho Gutierrez M.D. 05/30/2021 3:56 PM Discharge Plan Visit Data Chief Complaint: Hypotension Stated Complaint: hypotension, illness ED Provider: Elliot Loja Discharge Problem: Acute hypotension, Acute UTI, Syncope Forms Stand Alone Forms: [facility] Prescriptions Prescriptions: No Action ipratropium-albuterol 0.5 mg-3 mg(2.5 mg base)/3 mL solution for nebulization 3 ml INHALATION QID PRN (Reason: Shortness Of Breath Or Wheezing) RF: 0 atorvastatin 40 mg tablet 40 mg PO DAILY RF: 0 carvedilol 12.5 mg tablet 12.5 mg PO BID RF: 0 budesonide 0.5 mg/2 mL suspension for nebulization 0.5 mg inhalation BID RF: 0 diltiazem HCl [Cartia XT] 120 mg capsule,extended release 24hr 120 mg PO DAILY RF: 0 aspirin [Aspirin Low Dose] 81 mg Tablet,Delayed Release (Dr/Ec) 81 mg PO DAILY RF: 0 albuterol sulfate 90 mcg/actuation HFA aerosol inhaler 2 puff INHALATION Q6 PRN (Reason: Shortness Of Breath Or Wheezing) RF: 0 losartan 50 mg tablet 50 mg PO DAILY RF: 0 metformin 1,000 mg tablet 1,000 mg PO BID RF: 0 Jardiance 10 mg tablet 10 mg PO DAILY RF: 0 oxycodone 5 mg tablet 5 mg PO TID PRN (Reason: Pain) RF: 0 polyethylene glycol 3350 [Miralax] 17 gram powder in packet 17 g PO BID PRN (Reason: Constipation) RF: 0 ondansetron HCl [Zofran] 4 mg tablet 4 mg PO Q6H PRN (Reason: nausea and vomiting) Qty: 6 RF: 0 Discharge Problem: Syncope Qualifiers: Syncope type: unspecified Qualified Code(s): R55 - Syncope and collapse
[2021-05-30 14:57] LABS: Basophils # (auto) 0.02 K/uL (0-0.2); Basophils % (auto) 0.2 %; Eosinophils # (auto) 0.21 K/uL (0-0.5); Eosinophils % (auto) 2.4 %; Hematocrit (blood only) 32.1 % (37-47); Hemoglobin 9.4 g/dL (12.0-16.0); Immature Granulocytes # (auto) 0.02 K/uL (0.00-0.02); Immature Granulocytes % (auto) 0.2 %; Lymphocytes # (auto) 1.64 K/uL (1.2-3.4); Lymphocytes % (auto) 18.6 %; Mean Corpuscular Hgb Conc 29.3 g/dL (32-36); Mean Corpuscular Volume 88.7 fL (80-100); Mean Platelet Volume 9.8 fL (7.4-10.4); Monocytes # (auto) 0.78 K/uL (0.11-0.59); Monocytes % (auto) 8.8 %; Neutrophils # (auto) 6.15 K/uL (1.4-6.5); Neutrophils % (auto) 69.8 %; Platelet Count 379 K/uL (130-400); RDW Coefficient of Variation 20.1 % (11.5-14.5); RDW Standard Deviation 66.6 fL (36.4-46.3); Red Blood Count 3.62 M/uL (4.2-5.4); White Blood Count 8.82 K/uL (4.8-10.8)
[2021-05-30 15:21] LABS: Alanine Aminotransferase 13 U/L (12-78); Albumin Level 2.9 gm/dl (3.4-5.0); Aspartate Aminotransferase 8 U/L (15-37); BUN Creatinine Ratio 16.8 (10-20); Blood Urea Nitrogen 23 mg/dl (7-18); Calcium 8.6 mg/dl (8.5-10.1); Carbon Dioxide 27 mmol/L (21-32); Chloride 108 mmol/L (98-107); Creatinine Clr Calc Pharmacy 35.9 ml/min; Est GFR (African American) 46.3 ml/min; Glucose 152 mg/dl (70-99); Lipase 138 U/L (73-393); Potassium 4.7 mmol/L (3.5-5.1); Sodium 140 mmol/L (136-145)
[2021-05-30 15:23] LABS: Acanthocytes 1+; Anisocytosis Present
[2021-05-30 15:25] LABS: Albumin Globulin Ratio 0.9 (0.9-2); Alkaline Phosphatase 86 U/L (45-117); Bilirubin,Total 0.3 mg/dl (0.2-1); Globulin 3.4 gm/dl (2.5-4.0); Total Protein 6.3 gm/dl (6.4-8.2); Troponin I < 0.015 ng/ml (0-0.045)
[2021-05-30] MEDS ORDERED: OPTIRAY 320 100ml IV ONE (15:49)
--- NOTE | 2021-05-30 15:58 | CT Scan Report ---
LUMBAR SPINE CT with intravenous contrast CT DOSE: 3037.12 mGy.cm HISTORY: lower back pain TECHNIQUE: Multiaxial CT images of the lumbar spine were performed and reformatted in the sagittal an d coronal plane following the the use of intravenous contrast. A dose lowering technique was utilize d adhering to the principles of ALARA. COMPARISON: None. FINDINGS: No fractures within the lumbar spine. There is 4 mm of anterolisthesis of L4 on L5. There i s mild disc space narrowing at L3-L4, L4-L5, and L5-S1. No fractures identified within the visualized sacrum. Severe facet degenerative changes at L4-L5 and L5-S1. Moderate facet degenerative changes at L3-L4. There is a partially visualized 3.8 cm infrarenal abdominal aortic aneurysm. Paravertebral so ft tissues are unremarkable. There is now noted is made of a 2.1 cm hypodense lesion within the left side of the sacral canal at the S1 level. This favors a Tarlov cyst. There is severe central canal na rrowing at L4-L5 and moderate central canal narrowing at L3-L4. Mild dextroscoliosis. IMPRESSION: 1. No fractures within the lumbar spine. 2. Mild dextroscoliosis. This could be positional. 3. Degenerative changes as described above. 4. A 3.8 cm infrarenal abdominal aortic aneurysm. ACT 112: Negative or not required by law. Electronically signed by: Wicho Gutierrez M.D. 05/30/2021 3:56 PM
--- NOTE | 2021-05-30 16:00 | CT Scan Report ---
CT head/brain wo con CLINICAL HISTORY: [place] COMPARISON STUDY: September 26, 2020. TECHNIQUE: Axial CT of the brain is performed from the vertex to the skull base. IV contrast was not administered for this examination. A dose lowering technique was utilized adhering to the principles of ALARA. CT DOSE: FINDINGS: No acute intracranial hemorrhage, no midline shift or space occupying lesions are seen. Cooper-white matter differentiation is preserved. Evaluation of cranial base is limited due to motion and beam hardening artifact. Redemonstration of calcifications within bilateral basal ganglia. There is no evidence of pathologic ventricular dilatation. No acute depressed skull fractures seen however this is limited exam due to motion artifact. Visualized paranasal sinuses and mastoid air cells are patent and well-aerated. Vascular calcifications are again seen within cranial base. IMPRESSION: No acute intracranial hemorrhage, no midline shift or space occupying lesions. Redemonstration of calcifications within bilateral basal ganglia which could be due to metabolic abno rmalities. ACT 112: Negative or not required by law. The above report was generated using voice recognition software. It may contain grammatical, syntax o r spelling errors. Electronically signed by: Fabiola Solorzano DO 05/30/2021 3:59 PM
--- NOTE | 2021-05-30 16:06 | CT Scan Report ---
CT SCAN OF THE CERVICAL SPINE CLINICAL HISTORY: Fall. Neck pain. COMPARISON STUDY: Radiographs of the cervical spine dated 05/04/2014. TECHNIQUE: CT scan of the cervical spine is performed from the skull base to the upper thoracic spine . Images are reviewed in the axial, sagittal, and coronal planes. IV contrast was not administered fo r this examination. A dose lowering technique was utilized adhering to the principles of ALARA. FINDINGS: Skeletal structures: The skeletal structures are osteopenic. There is no evidence of fracture or subl uxation involving the cervical spine. Vertebral body height and alignment are maintained. Anterior os teophytes are seen throughout. There is mild straightening of the cervical lordosis. The odontoid pro cess and lateral masses are intact. The atlantoaxial articulation is preserved noting advanced produc tive degenerative change. The spinous processes appear intact. There is moderate multilevel cervical spondylosis. Uncovertebral and facet arthropathy contribute to neural foraminal stenosis at several l evels. Intervertebral discs: The disc spaces are well maintained. Central canal: Grossly patent. Soft tissues: The prevertebral and paraspinous soft tissues are within normal limits. There is athero sclerotic calcification of the carotid bulbs. Calvarium: The visualized calvarium at the skull base appears intact. Brain parenchyma: Partially visualized brain parenchyma at the skull base is within normal limits. Mastoids: There is trace left mastoid effusion. The right mastoid air cells are well pneumatized. Lung apices: Emphysematous change is noted at the lung apices. Apical lung parenchyma is otherwise cl ear as imaged. IMPRESSION: 1. There is no evidence of fracture or subluxation involving the cervical spine. 2. Osteopenia and spondylotic change as above. 3. Emphysema. ACT 112: Negative or not required by law. Electronically signed by: Koby Wallace M.D. 05/30/2021 4:05 PM
--- NOTE | 2021-05-30 16:16 | CT Scan Report ---
CT OF THE CHEST WITH IV CONTRAST CLINICAL HISTORY: fall COMPARISON STUDY: October 23, 2020 TECHNIQUE: Following the IV administration of 93 mL of Optiray, CT of the thorax was performed from the thoracic inlet to the lung bases. Images are reviewed in the axial, sagittal, and coronal planes. IV contrast was administered without complication. A dose lowering technique was utilized adhering to the principles of ALARA. CT DOSE: FINDINGS: There is no axillary, supra clavicle or internal mammary lymphadenopathy seen. Multiple mediastinal l ymph nodes are again seen, appear prominent measuring up to 1.1 cm in short axis. Calcified nonenlarg ed hilar lymph nodes are again seen. Thyroid: Imaged portions of the thyroid gland are normal in appearance. Thoracic aorta: The thoracic aorta is normal in course and caliber, noting standard 3-vessel arch carl jared. No aneurysm or dissection is seen. Extensive partially calcified plaques are seen within aortic wall. Few with irregular plaques are seen within midportion of descending thoracic aorta. Evaluation is limited on this nondedicated exam. Pulmonary vasculature: Pulmonary vein is slightly dilated measuring up to 3.1 cm in diameter which co uld be seen in pulmonary hypertension. HEART: The heart is normal in size and configuration, without pericardial effusion. Calcifications of aortic valve are seen. Lungs and pleural spaces: Tracheobronchial tree is patent. Moderate centrilobular upper lobe predominant emphysema is seen. No large infiltrates or consolidative lesions are seen. Redemonstration of nodularity within lingula and right internal lobe as well as large bulla at the right base. No pneumothorax or pulmonary parenchymal laceration is seen. -Interval development of 8mm pulmonary nodule within the right middle lobe (16/187) -Interval development of 13 mm groundglass nodule within the right apex (in/49) Upper abdomen: For abdominal findings please refer to report of CT of abdomen performed at the same time. Skeletal structures: No definite acute fracture or traumatic malalignment is seen however evaluation is limited due to motion artifact. IMPRESSION: 1. No evidence of pneumothorax, pulmonary laceration or acute fracture. 2. Emphysema. 3. Interval development of 8mm pulmonary nodule within the right middle lobe since prior study perfo rmed in September 2020. Differential diagnosis include infectious/postinfectious or inflammatory proce sses versus malignancy. Short-term follow-up with nonenhanced CT of the chest on nonemergency basis i n 4-6 weeks is recommended to document resolution. 4. Limited exam due to motion artifact. 5. Dilatation of the pulmonary artery could be seen in pulmonary hypertension. 6. Atherosclerosis. Extensive partial calcified plaques within the aortic wall. Few areas of ulcerat ed plaques within mid thoracic region as detailed above. ACT 112: Positive. There are findings on this exam that require communication between the performing entity and the patient following Patient Test Result Information Act ([place] Act 112) guidelines. The above report was generated using voice recognition software. It may contain grammatical, syntax o r spelling errors. Electronically signed by: Fabiola Solorzano DO 05/30/2021 4:14 PM
--- NOTE | 2021-05-30 16:19 | CT Scan Report ---
CT SCAN OF THE ABDOMEN AND PELVIS WITH IV CONTRAST CLINICAL HISTORY: Trauma. Hypotension. Fall. COMPARISON STUDY: Abdominal CT dated 05/13/2021. TECHNIQUE: Following the IV administration of 93 cc of Optiray 320, CT scan of the abdomen and pelvi s is performed from the lung bases to the proximal femora. Images are reviewed in the axial, sagittal , and coronal planes. IV contrast was administered without complication. A dose lowering technique wa s utilized adhering to the principles of ALARA. FINDINGS: Lung bases: The heart is normal in size and without pericardial effusion. The coronary arteries are d ensely calcified. A tiny hiatal hernia is noted. Advanced and edematous change is seen at the lung ba ses. There is bibasilar scarring and/atelectasis. Scattered calcified granulomas are observed. Liver: The contrast-enhanced liver is normal in size, contour, and attenuation. There is minimal cent ral intrahepatic biliary ductal dilatation. The hepatic veins and portal veins are patent. Gallbladder: Surgically absent noting clips in the gallbladder fossa. Spleen: Normal in size and attenuation. There are numerous calcified splenic granulomas. Pancreas: Prominence of the pancreatic duct is similar to previous. The pancreas is moderately atroph ic and otherwise grossly unremarkable. Adrenal glands: Bilateral adrenal nodules are similar to previous. Kidneys: The contrast enhanced kidneys demonstrate mild cortical atrophy and are without hydronephros is. The kidneys enhance symmetrically. Abdominal vasculature: There is advanced atherosclerotic calcification of the abdominal aorta. An inf rarenal abdominal aortic aneurysm measures 3.4 x 3.7 cm (AP x transverse). The aneurysm sac extends 5 .4 cm in craniocaudal length. Bowel: There is mild colonic diverticulosis without CT evidence of acute diverticulitis. No bowel obs truction is seen. Submucosal fat deposition is noted throughout the right colon. The appendix is not visualized. Peritoneum: There is no intraperitoneal free air or abdominal ascites. There is a fat-containing umbi lical hernia. Lymphadenopathy: None. Pelvic viscera: Small foci of gas are present within the bladder lumen. The uterus is surgically abse nt. No adnexal lesion is seen. Skeletal structures: The skeletal structures are osteopenic. The lumbosacral spine, bony pelvis, and proximal femora appear intact. There is moderate lumbosacral spondylosis. No lytic or blastic lesions are seen. A 2.5 cm benign-appearing sclerotic lesion is again seen in the right femoral neck, possib ly representing an enchondroma. 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 IMPRESSION: 1. There is no evidence of solid organ injury in the abdomen or pelvis. 2. 3.4 x 3.7 cm infrarenal abdominal aneurysm is unchanged. 3. Advanced emphysema. 4. Nonspecific gas within the bladder lumen may be related to instrumentation. Correlation with clini [place] findings and urinalysis will be required. 5. Additional findings as above. ACT 112: Negative or not required by law. Electronically signed by: Koby Wallace M.D. 05/30/2021 4:18 PM
[2021-05-30 17:09] LABS: Appearance Urine Cloudy (Clear); Bacteria Urine Automated 2+ (Negative); Bilirubin Urine Negative (Negative); Blood Urine Negative (Negative); Color Urine Yellow; Epithelial Cell Urine Auto 0-5 /lpf (0-5); Glucose Urine UA 3+ (Negative); Ketones Urine Negative (Negative); Leukocyte Esterase Urine Trace (Negative); Nitrite Urine Positive (Negative); Protein Urine Negative (Negative); Specific Gravity Urine > 1.045 (1.000-1.030); Urobilinogen Urine Negative (Negative)
[2021-05-30 17:20] LABS: RBC Urine Automated 0-4 /hpf (0-4)
[2021-05-30] MEDS ORDERED: cefTRIAXone SODIUM 1,000 MG/50 ML BAG IV STA (17:23)
[2021-05-30] MEDS ORDERED: SODIUM CHLORIDE 0.9% 500 ML IV ONE (17:30)
[2021-05-30] MEDS ORDERED: GLUCOSE 10 TABS/TUBE PO PRN ×2 (21:29→23:26)
[2021-05-30] MEDS ORDERED: GLUCOSE 40% GEL 15 GM TUBE PO PRN ×2 (21:29→23:26)
[2021-05-30] MEDS ORDERED: CARBOHYDRATES FOR HYPOGLYCEMIA PO PRN ×2 (21:29→23:26)
[2021-05-30] MEDS ORDERED: GLUCAGON FOR INJ 1 MG VIAL SQ PRN ×2 (21:29→23:26)
[2021-05-30] MEDS ORDERED: DEXTROSE 50% 50 ML SYRINGE IV PRN ×2 (21:29→23:26)
--- NOTE | 2021-05-30 21:40 | History & Physical Report ---
Date of Service May 30, 2021 Assessment & Plan (1) Acute UTI: (2) Acute hypotension: (3) Syncope: (4) COPD exacerbation: (5) AMS (altered mental status): 71 y/o F Hx HTN, HLD, DM, low back pain, anemia, advanced COPD - 3L 02. she presents at the behest of her for poor mentation. He also stated that she was lightheaded the prior laci and may have either fallen or suffered a syncopal episode. The pt is slow to provide information, but does states that she is short of breath above baseline. She was hypotensive on arrival to the ER and responded to IVF. She had a fever on arrival. Labs were notable for a + UA and TATY. A CT chest demonstrated bullous emphysema and a new 8mm nodule in the RML. 1) AMS - multifactorial. An ABG is pending, however, she has been admitted previously with retention leading to AMS. She also has a degree of dehydration and a UTI. 2) COPD exacerbation - may need BiPAP if indicated per ABG. She is placed on titrated 02, duonebs, Solumedrol, abx. She is assigned to telemetry/PCU. 3) UTI with hypotension - She was febrile on arrival and a lactic is pending on admission. She is placed on Ceftriaxone pending cultures. Her BP responded to IVF but bears monitoring. 4) TATY - likely due to dehydration - IVF provided - recheck AM 5) Anemia - this appears to be worsening. We will tend AM and would workup if trending down. There is no evidence of bleeding, but we will hold off on anticoagulation pending an AM repeat CBC. 6) HTN - antihypertensives held pending AM reassessment owing to hypotension on arrival. 7) DM - sliding scale 8) Back pain - can continue prescribed narcotics if she is not somnolent 9) HLD - Cont statin 10) It is not clear if she had a syncopal episode or simply fell. Imaging is negative for significant trauma. She is assigned to telemetry. 11) A new lung nodule will need additional oupt follow-up Full code - SCDs Total time for this admit including review of labs, meds, imaging, records - discussion with pt and ER attending - 58 min (6) TATY (acute kidney injury): Admission and Anticipated Discharge Date Admission Date: 05/30/21 Anticipated date of discharge: 06/04/21 History of Present Illness Chief Complaint: AMS Primary Care Provider: BRET Bull 71 y/o F Hx HTN, HLD, DM, low back pain, anemia, advanced COPD - 3L 02. she presents at the behest of her for poor mentation. He also stated that she was lightheaded the prior laci and may have either fallen or suffered a syncopal episode. The pt is slow to provide information, but does states that she is short of breath above baseline. She was hypotensive on arrival to the ER and responded to IVF. She had a fever on arrival. Labs were notable for a + UA and TATY. A CT chest demonstrated bullous emphysema and a new 8mm nodule in the RML. PMH: 1) Bullous emphysema / COPD - 3L home 02 2) HTN 3) HLD 4) DM II 5) Obese 6) Anemia - baseline Hb 10.5 7) Chronic low back pain - opiate dependent 8) recurrent PNM 9) Prior granulomatous lung disease 10) L peroneal nerve palsy 11) Abdominal aortic aneurysm 12) Nephrolithiasis Surgical: 1) Appendectomy 2) Hysterectomy 3) Ankle surgery 4) Cholecystectomy 5) Lithotripsy Social: Continues to smoke cigarettes. Denies alcohol use. Family: Could not provide Allergies Allergy/AdvReac Type Severity Reaction Status Date / Time diflunisal Allergy Unknown HEART RACES Verified 05/30/21 15:33 Home Medications Medication Instructions Recorded Confirmed Type Jardiance 10 mg PO DAILY 08/28/20 05/30/21 History albuterol sulfate 2 puff INHALATION Q6 PRN 08/28/20 05/30/21 History aspirin [Aspirin Low Dose] 81 mg PO DAILY 08/28/20 05/30/21 History atorvastatin 40 mg PO DAILY 08/28/20 05/30/21 History budesonide 0.5 mg INHALATION BID 08/28/20 05/30/21 History carvedilol 12.5 mg PO BID 08/28/20 05/30/21 History diltiazem HCl [Cartia XT] 120 mg PO DAILY 08/28/20 05/30/21 History losartan 50 mg PO DAILY 08/28/20 05/30/21 History metformin 1,000 mg PO BID 08/28/20 05/30/21 History ipratropium-albuterol 3 ml INHALATION QID PRN 09/25/20 05/30/21 History ondansetron HCl [Zofran] 4 mg PO Q6H PRN #6 tab 05/13/21 05/30/21 Rx oxycodone 5 mg PO TID PRN 05/13/21 05/30/21 History polyethylene glycol 3350 [Miralax] 17 g PO BID PRN 05/13/21 05/30/21 History Past Med/Surg History Medical History (Updated 05/30/21 @ 22:16 by Sanjeev Bryan MD) AAA (abdominal aortic aneurysm) Chronic low back pain COPD exacerbation Diaphragmatic hernia (10/31/11) History of knee replacement Left peroneal nerve palsy Surgical History H/O Achilles tendon repair (~2007) H/O: hysterectomy History of appendectomy History of bilateral oophorectomies History of lithotripsy (~2007) Hx of cholecystectomy Family History Other Family history non-contributory Social History Smoking Status: Current every day smoker Tobacco Type: Cigarettes Hx Alcohol Use: No Hx Substance Use: No Preferred Language: Zambian Communication Ability: Effective Education Nurse Required: No Beliefs That Will Affect Care: None Current Living Situation: Spouse Feels Safe at Home: Yes Assistive Devices: Oxygen - Continuous and Walker Review of Systems Review of Systems: Gen: Did not report fevers or night sweats. Admits to generalized weakness. ENT: Denies congestion, throat pain, hearing loss Eyes: Denies acute visual changes CV: Denies CP, palpitations Pulmonary: + SOB and wheezing GI: Denies N/V, diarrhea, constipation Neuro: Denies acute or unilateral weakness, acute gait impairment, headache or acute visual changes. States she may have had a syncopal episode the prior day. Musculoskeletal: Denies joint pain, inflammation. + chronic back pain Endocrine: Denies polydipsia, polyuria Skin: Denies acute rashes or ulcers Physical Exam Physical Exam: General: AAO when aroused but exhibits somnolence. She has a cushingoid habitus ENT: No erythema or exudates Eyes: PHILLIP, EOMI Head and neck: Normocephalic, atraumatic - could not assess JVD Chest/heart: Nontender, S1,2, RRR, no murmurss Lungs: Very poor air movement and wheezing throughout lung monsivais Abdomen: Nontender, nondistended, BS+ Neuro: speech is clear, no unilateral weakness, can coordinate movements Musculoskeletal: No joint inflammation, muscle tenderness, FROM Skin: No acute rashes or ulcers Extremities: No clubbing, cyanosis, edema Results & Data Results & Data ([facility]) Vital Signs (Past 12 Hours) Vital Signs Temp Pulse Pulse Resp BP BP Pulse Ox 05/30/21 19:58 85 16 104/51 L 95 05/30/21 18:00 80 22 92/48 L 92 05/30/21 17:30 84 22 107/52 L 97 05/30/21 17:00 83 22 111/48 L 100 05/30/21 16:30 81 23 111/54 L 99 05/30/21 16:00 81 20 111/58 L 99 05/30/21 15:00 80 24 111/50 L 98 05/30/21 14:50 82 20 98 05/30/21 14:40 99.9 F H 82 82 20 105/57 L 105/57 L 98 05/30/21 14:30 82 24 99/53 L 98 Code Status & VTE Plan VTE Prophylaxis Plan VTE Prophylaxis will be ordered: Yes PG Care Time/CCT Total # of Minutes Spent Total Time Spent with Patient: Total time spent is greater than 50% in coordination of care (as documented) at patient's floor/unit and/or counseling patient: Coding Level of Care Code 63881 Initial Inpt Care Lvl 3 Diagnoses Acute UTI N39.0 Acute hypotension I95.9 Syncope R55 Syncope type: unspecified COPD exacerbation J44.1 AMS (altered mental status) R41.82 TATY (acute kidney injury) N17.9 (1) Syncope Syncope type: unspecified Qualified Code(s): R55 - Syncope and collapse
[2021-05-30 22:35] LABS: Allen Test Pos (Pos); Base Excess ABG -0.9 mEq/L (-9-1.8); HCO3 ABG 27 mmol/L (19-24); Oxygen Saturation ABG 95.7 % (90-95); PCO2 ABG 61 mmHg (35-46); PO2 ABG 86 mmHg (80-95); pH ABG 7.26 (7.35-7.45)
[2021-05-30] MEDS ORDERED: ALBUT/IPRATROP 3MG/0.5MG NEB 3 ML VIAL INH PRN (23:26)
[2021-05-30] MEDS ORDERED: POLYETHYLENE (MIRALAX) 17 GM PACK PO PRN (23:26)
[2021-05-30] MEDS ORDERED: ALBUTEROL HFA 8 GM INHALER INH PRN (23:26)
[2021-05-30] MEDS ORDERED: methylPREDNISolone 125 MG/2 ML VIAL IV SCH (23:26)
[2021-05-30] MEDS ORDERED: ACETAMINOPHEN 325 MG TAB PO PRN (23:26)
[2021-05-30] MEDS ORDERED: MELATONIN 3 MG TAB PO PRN (23:38)
[2021-05-31] MEDS: LACTATED RINGER'S 1,000 ML IV SCH ×2 (00:27→09:20)
[2021-05-31] MEDS: carvediloL 12.5 MG TAB PO SCH ×3 (00:28→21:46)
[2021-05-31] MEDS: INSULIN ASPART 100 UNITS/ML 3 ML PEN SC SCH ×5 (00:30→21:47)
[2021-05-31] MEDS: methylPREDNISolone 60 MG in SYRINGE 0 ML IV SCH ×3 (00:36→12:37)
--- NOTE | 2021-05-31 06:59 | Electrocardiogram Report ---
Test Reason : Blood Pressure : / mmHG Vent. Rate : 082 BPM Atrial Rate : 082 BPM P-R Int : 156 ms QRS Dur : 080 ms QT Int : 384 ms P-R-T Axes : 062 014 070 degrees QTc Int : 450 ms Sinus rhythm Low voltage QRS Abnormal ECG When compared with ECG of 13-MAY-2021 13:35, No significant change Confirmed by Mickey Lobato ([id number]) on 05/31/2021 6:58:52 AM Referred By: Confirmed By:Mickey Lobato
[2021-05-31] MEDS: ALBUT/IPRATROP 3MG/0.5MG NEB 3 ML VIAL NEB SCH ×4 (07:15→19:03)
[2021-05-31] MEDS ORDERED: INSULIN ASPART 100 UNITS/ML 3 ML PEN SC SCH (07:30)
[2021-05-31] MEDS: ATORVASTATIN 40 MG TAB PO SCH (08:30)
[2021-05-31] MEDS: ASPIRIN 81 MG ECTAB PO SCH (08:30)
[2021-05-31] MEDS: LIDOCAINE 5% 1 PATCH TD SCH (08:31)
[2021-05-31] MEDS ORDERED: LOSARTAN POTASSIUM 50 MG TAB PO SCH (09:00)
--- NOTE | 2021-05-31 14:05 | XRay Report ---
XR chest 1V portable CLINICAL HISTORY: hypoxia COMPARISON STUDY: May 13, 2021 FINDINGS: No definite pneumothorax seen however evaluation is limited because right lung apex is partially obsc ured by patient's chin.. No pleural effusion. Diffuse reticular opacities are seen bilaterally, predominantly within bilateral lower lungs and slig htly worsened and since prior. Also hazy opacities seen within left lower lung which might represent atelectasis or infiltrate. Cardiac silhouette is within normal limits in size. Pulmonary vasculature is indistinct. Aorta is calcified. Osseous structures: unremarkable IMPRESSION: 1. Questionable hazy opacity at the left lower lung which could represent atelectasis or infiltrate. Interval worsening of reticular opacities predominantly within bilateral lower lungs might represent pulmonary edema versus other etiology. ACT 112: Negative or not required by law. The above report was generated using voice recognition software. It may contain grammatical, syntax o r spelling errors. Electronically signed by: Fabiola Solorzano DO 05/31/2021 2:03 PM
[2021-05-31 14:35] LABS: Hematocrit (blood only) 31.1 % (37-47); Hemoglobin 9.2 g/dL (12.0-16.0); Immature Granulocytes # (auto) 0.03 K/uL (0.00-0.02); Immature Granulocytes % (auto) 0.5 %; Lymphocytes # (auto) 0.43 K/uL (1.2-3.4); Mean Corpuscular Hemoglobin 25.5 pg (25-34); Mean Corpuscular Hgb Conc 29.6 g/dL (32-36); Mean Corpuscular Volume 86.1 fL (80-100); Mean Platelet Volume 9.2 fL (7.4-10.4); Monocytes # (auto) 0.06 K/uL (0.11-0.59); Neutrophils # (auto) 5.59 K/uL (1.4-6.5); Neutrophils % (auto) 91.5 %; Platelet Count 336 K/uL (130-400); RDW Coefficient of Variation 19.3 % (11.5-14.5); RDW Standard Deviation 62.1 fL (36.4-46.3); Red Blood Count 3.61 M/uL (4.2-5.4); White Blood Count 6.11 K/uL (4.8-10.8)
[2021-05-31 14:54] LABS: Base Excess VBG 1.6 mEq/L; pH VBG 7.37 (7.36-7.41)
[2021-05-31] MEDS: oxyCODONE HCL IR 5 MG TAB (IMMEDIATE RELEASE) PO PRN ×2 (14:55→21:45)
[2021-05-31 15:05] LABS: BUN Creatinine Ratio 24.6 (10-20); Calcium 8.9 mg/dl (8.5-10.1); Creatinine Clr Calc Pharmacy 53.8 ml/min; Est GFR (African American) 75.6 ml/min; Est GFR (Non-African American) 65.2 ml/min; Potassium 5.1 mmol/L (3.5-5.1)
[2021-05-31] MEDS: cefTRIAXone SODIUM 1,000 MG in DEXTROSE 5% 50 ML IV SCH (15:34)
[2021-05-31] MEDS ORDERED: FUROSEMIDE 20 MG in SYRINGE 0 ML IV ONE (16:30)
--- NOTE | 2021-05-31 20:45 | Hospitalist Progress Note ---
Date of Service May 31, 2021 Assessment & Plan (1) Acute on chronic respiratory failure with hypoxemia: typically on 3L at home, suspect she runs around 90% now on 4-5L, no distress, would not be compliant with BIPAP treat pneumonia with Rocephin and Zithromax treat COPD exacerbation with Solu Medrol 40 q12 give a dose of Lasix 20mg IV for pulmonary edema wean down to 3L (baseline) as tolerated (2) Pneumonia: CXR with left lower lobe infiltrate? will treat with Rocephin and Zithromax, give 5 day course (3) Acute hypercapnic respiratory failure: pH 7.2 and CO2 elevated on admission, treated with BIPAP she is non-compliant once more alert VBG today with normal pH if she gets lethargic would check ABG and place back on BIPAP (4) TATY (acute kidney injury): Cr 1.35 on admission given IV fluids (LR) and now Cr down to <1 stop fluids and give a dose of Lasix 20mg IV due to pulmonary edema (5) COPD exacerbation: Solu Medrol, antibiotics, duonebs (6) Acute UTI: Rocephin, follow up on urine culture (7) Acute hypotension: resolved, now hypertensive (8) Syncope: likely from hypoxia or hypercapnia keep on monitor check echo (9) AMS (altered mental status): she is alert and oriented today likely from hypercapnia, infection cannot recall details from yesterday but that is not surprising (10) Hyperglycemia: sugars running high due to Solu Medrol add Lantus 15 BID and adjust novolog SS will be decreasing Solu Medrol to 40 q12 which should help Admission and Anticipated Discharge Date Admission Date: May 30, 2021 Subjective patient laying on her side on 4L at the time of my visit no distress at all, but refuses to keep NC in her nose earlier today she kept removing her BIPAP checked VBG, pH normal and she is more alert keeps asking for Oxycodone as her pain is terrible in her back asked her why she is here, she cannot tell me reviewed chart, has evidence of pneumonia and COPD exacerbation had hypercapnia on admission, TATY on admission gave her a dose of Oxycodone, pain relieved and sleeping more reduced Solu Medrol and gave a dose of Lasix Review of Systems Review of Systems: All systems reviewed & are unremarkable except as noted in Subjective Constitutional: + fatigue and + weakness; no fever Respiratory: + cough, + dyspnea and + dyspnea on exertion; no sputum production Cardiovascular: + dyspnea; no chest pain and no edema Gastrointestinal: no abdominal pain, no nausea, no vomiting, no constipation and no diarrhea/loose stools Physical Exam Constitutional: well developed, + ill appearing and + frail appearing; no acute distress Neck: trachea midline, no thyromegaly Respiratory: normal respiratory effort and + cough; no respiratory distress Auscultation: + diminished lung sounds, + rhonchi and + wheezes Cardiovascular: RRR, no murmur, no edema Gastrointestinal (Abdomen): normal bowel sounds, soft, nontender, no hepatosplenomegaly Musculoskeletal: no cyanosis or clubbing, extremities motor strength 5/5 Skin: no rashes, warm and dry Neurologic: normal touch/pain/proprioception, CN's II-XI intact bilaterally, moves all extremities, awake and + confused (cannot recall why she is here); no focal motor deficits Psychiatric: A+Ox3, euthymic affect Lymphatic: no cervical or axillary lymphadenopathy Results & Data Results & Data ([facility]) Vital Signs (Past 12 Hours) Vital Signs Temp Pulse Pulse Pulse Resp BP Pulse Ox 05/31/21 19:29 36.8 C 91 H 21 151/70 H 90 05/31/21 19:05 86 36 H 90 05/31/21 15:14 36.8 C 87 19 141/79 H 94 05/31/21 14:59 90 20 93 05/31/21 14:50 91 H 05/31/21 10:56 82 16 97 Laboratory Results Laboratory Results - last 24 hr 05/30/21 05/30/21 05/30/21 19:22 22:18 22:18 WBC RBC Hgb Hct MCV MCH MCHC RDW Std Deviation RDW Coeff of Dorcas Plt Count MPV Immature Gran % (Auto) Neut % (Auto) Lymph % (Auto) [place] % (Auto) Eos % (Auto) Baso % (Auto) Neut # (Auto) Lymph # (Auto) [place] # (Auto) Eos # (Auto) Baso # (Auto) Immature Gran # (Auto) ABG pH 7.26 L ABG pCO2 61 H ABG pO2 86 ABG HCO3 27 H ABG O2 Saturation 95.7 H ABG Base Excess -0.9 Presley Test Pos VBG pH VBG pCO2 VBG pO2 VBG HCO3 VBG O2 Saturation VBG Base Excess Barometric Pressure 732.7 Oxygen Given 3 Sodium Potassium Chloride Carbon Dioxide Anion Gap BUN Creatinine Est Cr Clr Drug Dosing Est GFR ( Amer) Est GFR (Non-Af Amer) BUN/Creatinine Ratio Glucose POC Glucose Lactate 0.7 Calcium NT-Pro-B Natriuret Pep Procalcitonin SARS-CoV-2 (PCR) NEGATIVE 05/30/21 05/31/21 05/31/21 23:58 07:00 14:23 WBC 6.11 RBC 3.61 L Hgb 9.2 L Hct 31.1 L MCV 86.1 MCH 25.5 MCHC 29.6 L RDW Std Deviation 62.1 H RDW Coeff of Dorcas 19.3 H Plt Count 336 MPV 9.2 Immature Gran % (Auto) 0.5 Neut % (Auto) 91.5 Lymph % (Auto) 7.0 [place] % (Auto) 1.0 Eos % (Auto) 0.0 Baso % (Auto) 0.0 Neut # (Auto) 5.59 Lymph # (Auto) 0.43 L [place] # (Auto) 0.06 L Eos # (Auto) 0.00 Baso # (Auto) 0.00 Immature Gran # (Auto) 0.03 H ABG pH ABG pCO2 ABG pO2 ABG HCO3 ABG O2 Saturation ABG Base Excess Presley Test VBG pH VBG pCO2 VBG pO2 VBG HCO3 VBG O2 Saturation VBG Base Excess Barometric Pressure Oxygen Given Sodium Potassium Chloride Carbon Dioxide Anion Gap BUN Creatinine Est Cr Clr Drug Dosing Est GFR ( Amer) Est GFR (Non-Af Amer) BUN/Creatinine Ratio Glucose POC Glucose 184 H 178 H Lactate Calcium NT-Pro-B Natriuret Pep Procalcitonin SARS-CoV-2 (PCR) 05/31/21 05/31/21 05/31/21 14:23 14:23 14:23 WBC RBC Hgb Hct MCV MCH MCHC RDW Std Deviation RDW Coeff of Dorcas Plt Count MPV Immature Gran % (Auto) Neut % (Auto) Lymph % (Auto) [place] % (Auto) Eos % (Auto) Baso % (Auto) Neut # (Auto) Lymph # (Auto) [place] # (Auto) Eos # (Auto) Baso # (Auto) Immature Gran # (Auto) ABG pH ABG pCO2 ABG pO2 ABG HCO3 ABG O2 Saturation ABG Base Excess Presley Test VBG pH 7.37 VBG pCO2 50 VBG pO2 34 VBG HCO3 28 VBG O2 Saturation 67.0 VBG Base Excess 1.6 Barometric Pressure 731.4 Oxygen Given Sodium 140 Potassium 5.1 Chloride 108 H Carbon Dioxide 29 Anion Gap 3.0 BUN 22 H Creatinine 0.90 D Est Cr Clr Drug Dosing 53.8 Est GFR ( Amer) 75.6 Est GFR (Non-Af Amer) 65.2 BUN/Creatinine Ratio 24.6 H Glucose 241 H POC Glucose Lactate Calcium 8.9 NT-Pro-B Natriuret Pep 1095 H Procalcitonin < 0.05 SARS-CoV-2 (PCR) 05/31/21 05/31/21 05/31/21 16:13 20:19 20:22 WBC RBC Hgb Hct MCV MCH MCHC RDW Std Deviation RDW Coeff of Dorcas Plt Count MPV Immature Gran % (Auto) Neut % (Auto) Lymph % (Auto) [place] % (Auto) Eos % (Auto) Baso % (Auto) Neut # (Auto) Lymph # (Auto) [place] # (Auto) Eos # (Auto) Baso # (Auto) Immature Gran # (Auto) ABG pH ABG pCO2 ABG pO2 ABG HCO3 ABG O2 Saturation ABG Base Excess Presley Test VBG pH VBG pCO2 VBG pO2 VBG HCO3 VBG O2 Saturation VBG Base Excess Barometric Pressure Oxygen Given Sodium Potassium Chloride Carbon Dioxide Anion Gap BUN Creatinine Est Cr Clr Drug Dosing Est GFR ( Amer) Est GFR (Non-Af Amer) BUN/Creatinine Ratio Glucose POC Glucose 211 H 353 H* 341 H* Lactate Calcium NT-Pro-B Natriuret Pep Procalcitonin SARS-CoV-2 (PCR) Medications Administered Current Inpatient Medications Acetaminophen (Acetaminophen 325 Mg Tab) 650 mg PO Q4H PRN PRN Reason: Pain or Fever Stop: 06/29/21 23:25 Albuterol (Albut/Ipratrop 3mg/0.5mg Neb 3 Ml Vial) 3 ml NEB QIDR [facility]Y Stop: 06/30/21 06:59 Last Admin: 05/31/21 19:03 Dose: 3 ml Documented by: Albuterol (Albuterol Hfa 8 Gm Inhaler) 2 puffs INH Q6 PRN PRN Reason: Shortness Of Breath Or Wheezin Stop: 06/29/21 23:25 Albuterol (Albut/Ipratrop 3mg/0.5mg Neb 3 Ml Vial) 3 ml INH QID PRN PRN Reason: Shortness Of Breath Or Wheezing Stop: 06/29/21 23:25 Last Admin: 05/31/21 00:02 Dose: 3 ml Documented by: Aspirin (Aspirin 81 Mg Ectab) 81 mg PO DAILY [facility] Stop: 06/30/21 08:59 Last Admin: 05/31/21 08:30 Dose: 81 mg Documented by: Atorvastatin Calcium (Atorvastatin 40 Mg Tab) 40 mg PO DAILY [facility] Stop: 06/30/21 08:59 Last Admin: 05/31/21 08:30 Dose: 40 mg Documented by: Azithromycin (Azithromycin 250 Mg Tab) 500 mg PO QAM [facility] Stop: 06/08/21 08:59 Carvedilol (Carvedilol 12.5 Mg Tab) 12.5 mg PO BID [facility] Stop: 06/29/21 23:25 Last Admin: 05/31/21 08:30 Dose: 12.5 mg Documented by: Dextrose (Dextrose 50% 50 Ml Syringe) 25 - 50 ml IV UD PRN; Protocol PRN Reason: Hypoglycemia Protocol Stop: 06/29/21 23:25 Glucagon (Glucagon For Inj 1 Mg Vial) 1 mg SQ UD PRN; Protocol PRN Reason: Hypoglycemia Protocol Stop: 06/29/21 23:25 Glucose (Glucose 10 Tabs/Tube) 4 - 8 tabs PO UD PRN; Protocol PRN Reason: Hypoglycemia Protocol Stop: 06/29/21 23:25 Glucose (Glucose 40% Gel 15 Gm Tube) 15 - 30 gm PO UD PRN; Protocol PRN Reason: Hypoglycemia Protocol Stop: 06/29/21 23:25 Ceftriaxone Sodium 1,000 mg/ (Dextrose) 50 mls @ 100 mls/hr IV Q24H [facility]; Protocol Stop: 06/10/21 15:59 Last Infusion: 05/31/21 16:31 Dose: Infused Documented by: Methylprednisolone 40 mg/ (Syringe) 0.64 mls @ 1.5 mls/min IV Q12 [facility] Stop: 07/01/21 08:59 Insulin Aspart (Insulin Aspart 100 Units/Ml 3 Ml Pen) 0 units SC ACHS [facility] Stop: 06/29/21 23:25 Last Admin: 05/31/21 17:17 Dose: 1 units Documented by: Insulin Glargine (Insulin Glargine Solostar 100 Units/Ml 3 Ml Pen) 15 units SC Q12 [facility] Stop: 06/30/21 20:59 Lidocaine (Lidocaine 5% 1 Patch) 1 patch TD QAM [facility] Stop: 06/30/21 08:59 Last Admin: 05/31/21 08:31 Dose: 1 patch Documented by: Losartan Potassium (Losartan Potassium 50 Mg Tab) 50 mg PO DAILY [facility] Stop: 06/30/21 08:59 Last Admin: 05/31/21 08:30 Dose: 50 mg Documented by: Melatonin (Melatonin 3 Mg Tab) 3 mg PO HS PRN PRN Reason: Sleep Stop: 06/29/21 23:37 Miscellaneous (Carbohydrates For Hypoglycemia ) 15 - 30 gm PO UD PRN PRN Reason: Hypoglycemia Protocol Stop: 06/29/21 23:25 Miscellaneous (Remove Lidoderm Patch) 1 ea N/A DAILY@2100 [facility] Stop: 06/30/21 20:59 Oxycodone HCl (Oxycodone Hcl Ir 5 Mg Tab (Immediate Release)) 5 mg PO TID PRN PRN Reason: Pain Stop: 06/13/21 23:25 Last Admin: 05/31/21 14:55 Dose: 5 mg Documented by: Polyethylene Glycol (Polyethylene (Miralax) 17 Gm Pack) 17 gm PO BID PRN PRN Reason: Constipation Stop: 06/29/21 23:25 PG Care Time/CCT Total # of Minutes Spent Total Time Spent with Patient: Total time spent is greater than 50% in coordination of care (as documented) at patient's floor/unit and/or counseling patient: Coding Level of Care Code 62664 Subseq Hosp Care Lvl 3 Diagnoses Acute on chronic respiratory failure with hypoxemia J96.21 Pneumonia J18.9 Acute hypercapnic respiratory failure J96.02 TATY (acute kidney injury) N17.9 COPD exacerbation J44.1 Acute UTI N39.0 Acute hypotension I95.9 Syncope R55 Syncope type: unspecified AMS (altered mental status) R41.82 Hyperglycemia R73.9 (1) Syncope Syncope type: unspecified Qualified Code(s): R55 - Syncope and collapse
[2021-05-31] MEDS ORDERED: methylPREDNISolone 60 MG in SYRINGE 0 ML IV SCH (21:00)
[2021-05-31] MEDS: INSULIN GLARGINE SOLOSTAR 100 UNITS/ML 3 ML PEN SC SCH (21:46)
[2021-06-01] MEDS: oxyCODONE HCL IR 5 MG TAB (IMMEDIATE RELEASE) PO PRN ×3 (06:20→20:37)
[2021-06-01 06:43] LABS: Hematocrit (blood only) 32.2 % (37-47); Hemoglobin 9.6 g/dL (12.0-16.0); Mean Corpuscular Hemoglobin 25.5 pg (25-34); Mean Corpuscular Hgb Conc 29.8 g/dL (32-36); Mean Corpuscular Volume 85.6 fL (80-100); Mean Platelet Volume 9.4 fL (7.4-10.4); Platelet Count 401 K/uL (130-400); RDW Standard Deviation 59.9 fL (36.4-46.3); Red Blood Count 3.76 M/uL (4.2-5.4); White Blood Count 10.66 K/uL (4.8-10.8)
[2021-06-01 06:46] LABS: Base Excess VBG 5.3 mEq/L; HCO3 VBG 31 mmol/L; PCO2 VBG 49 mmHg (38-50); PO2 VBG 25 mmHg; pH VBG 7.41 (7.36-7.41)
[2021-06-01 06:54] LABS: Oxygen Saturation VBG < 60.0 %
[2021-06-01] MEDS: ALBUT/IPRATROP 3MG/0.5MG NEB 3 ML VIAL NEB SCH ×4 (06:55→19:12)
[2021-06-01 07:20] LABS: BUN Creatinine Ratio 32.9 (10-20); Calcium 9.4 mg/dl (8.5-10.1); Creatinine Clr Calc Pharmacy 61.5 ml/min; Est GFR (African American) 87.2 ml/min; Est GFR (Non-African American) 75.2 ml/min; Magnesium 2.1 mg/dl (1.8-2.4); Potassium 4.7 mmol/L (3.5-5.1)
[2021-06-01] MEDS ORDERED: FUROSEMIDE 20 MG in SYRINGE 0 ML IV ONE (07:30)
[2021-06-01] MEDS: AZITHROMYCIN 250 MG TAB PO SCH (08:15)
[2021-06-01] MEDS: INSULIN ASPART 100 UNITS/ML 3 ML PEN SC SCH ×4 (08:15→20:38)
[2021-06-01] MEDS: ASPIRIN 81 MG ECTAB PO SCH (08:15)
[2021-06-01] MEDS: INSULIN GLARGINE SOLOSTAR 100 UNITS/ML 3 ML PEN SC SCH ×2 (08:15→16:44)
[2021-06-01] MEDS: LIDOCAINE 5% 1 PATCH TD SCH (08:16)
[2021-06-01] MEDS: ATORVASTATIN 40 MG TAB PO SCH (08:16)
[2021-06-01] MEDS: carvediloL 12.5 MG TAB PO SCH ×2 (08:16→20:37)
[2021-06-01] MEDS ORDERED: methylPREDNISolone 40 MG in SYRINGE 0 ML IV SCH (09:00)
[2021-06-01] MEDS: cefTRIAXone SODIUM 1,000 MG in DEXTROSE 5% 50 ML IV SCH (15:53)
--- NOTE | 2021-06-01 16:33 | Hospitalist Progress Note ---
Date of Service June 01, 2021 Assessment & Plan (1) Acute on chronic respiratory failure with hypoxemia: typically on 3-4L at home, suspect she runs around 90% now on 3-4L, no distress, would not be compliant with BIPAP treat pneumonia with Rocephin and Zithromax treat COPD exacerbation with Solu Medrol 40 q12 - change to Prednisone 20mg daily tomorrow repeat Lasix 20mg IV this morning, good response wean down to 3L (baseline) as tolerated (2) Pneumonia: CXR with left lower lobe infiltrate? will treat with Rocephin and Zithromax, give 5 day course change to Cefdinir on discharge plus Zithromax (3) Acute hypercapnic respiratory failure: pH 7.2 and CO2 elevated on admission, treated with BIPAP she is non-compliant once more alert VBG today and yesterday with normal pH if she gets lethargic would check ABG and place back on BIPAP (4) TATY (acute kidney injury): Cr 1.35 on admission given IV fluids (LR) and now Cr 0.8 Lasix 20mg IV again this morning for pulmonary edema (5) COPD exacerbation: Solu Medrol, antibiotics, duonebs change to Prednisone tomorrow, would give 5-7 days (6) Acute UTI: Rocephin, follow up on urine culture - Klebsiella, diaz sensitive Cefdinir on discharge (7) Acute hypotension: resolved, now hypertensive (8) Syncope: likely from hypoxia or hypercapnia keep on monitor check echo - preserved EF of 65%, no (9) AMS (altered mental status): she is alert and oriented x 48 hours likely from hypercapnia, infection cannot recall details from admission but that is not surprising (10) Hyperglycemia: sugars running high due to Solu Medrol >400 today, increase Lantus to 20 BID tighten coverage: goal 110-140 with correction 20 and carb ratio 6 sugars down to 160-190 later Admission and Anticipated Discharge Date Admission Date: May 30, 2021 Subjective patient sitting in her chair eating lunch, appetite is great, ate everything breathing better, no distress, stable on 4L, she says she wears 3-4L at home responding well to Lasix 20mg IV this morning echo with EF 65%, slightly elevated right sided pressures reviewed labs, WBC normal, Cr 0.8, K 4.7, pH normal on VBG patient really wants to go home today, her is home alone, she isn't sure who will give him his insulin shot she agrees to stay another night, I will send home tomorrow Review of Systems Review of Systems: All systems reviewed & are unremarkable except as noted in Subjective Constitutional: + weakness; no fever, no chills, no sweats and no fatigue Respiratory: + cough, + dyspnea on exertion and + wheezing; no dyspnea and no sputum production Cardiovascular: no chest pain, no syncope and no edema Physical Exam Constitutional: well developed; no acute distress Neck: trachea midline, no thyromegaly Respiratory: normal respiratory effort and + cough; no respiratory distress Auscultation: + diminished lung sounds; no wheezes Cardiovascular: RRR, no murmur, no edema Gastrointestinal (Abdomen): normal bowel sounds, soft, nontender, no hepatosplenomegaly Musculoskeletal: no cyanosis or clubbing, extremities motor strength 5/5 Skin: no rashes, warm and dry Neurologic: normal touch/pain/proprioception, CN's II-XI intact bilaterally, moves all extremities and awake; no focal motor deficits Psychiatric: A+Ox3, euthymic affect Lymphatic: no cervical or axillary lymphadenopathy Results & Data Results & Data ([facility]) Vital Signs (Past 12 Hours) Vital Signs Temp Pulse Pulse Pulse Resp BP Pulse Ox 06/01/21 15:43 36.7 C 91 H 22 142/80 H 92 06/01/21 15:11 85 20 90 06/01/21 11:39 36.7 C 18 L 71 18 138/76 90 06/01/21 11:11 68 22 90 06/01/21 08:33 37.3 C 81 19 155/102 H 90 06/01/21 08:00 78 06/01/21 06:58 79 24 95 Laboratory Results Laboratory Results - last 24 hr 05/31/21 05/31/21 06/01/21 20:19 20:22 06:31 WBC 10.66 RBC 3.76 L Hgb 9.6 L Hct 32.2 L MCV 85.6 MCH 25.5 MCHC 29.8 L RDW Std Deviation 59.9 H RDW Coeff of Dorcas 19.0 H Plt Count 401 H MPV 9.4 VBG pH VBG pCO2 VBG pO2 VBG HCO3 VBG O2 Saturation VBG Base Excess Barometric Pressure Sodium Potassium Chloride Carbon Dioxide Anion Gap BUN Creatinine Est Cr Clr Drug Dosing Est GFR ( Amer) Est GFR (Non-Af Amer) BUN/Creatinine Ratio Glucose POC Glucose 353 H* 341 H* Calcium Magnesium 06/01/21 06/01/21 06/01/21 06:31 06:36 07:01 WBC RBC Hgb Hct MCV MCH MCHC RDW Std Deviation RDW Coeff of Dorcas Plt Count MPV VBG pH 7.41 VBG pCO2 49 VBG pO2 25 VBG HCO3 31 VBG O2 Saturation < 60.0 VBG Base Excess 5.3 Barometric Pressure 729.4 Sodium 139 Potassium 4.7 Chloride 105 Carbon Dioxide 32 Anion Gap 2.0 L BUN 26 H Creatinine 0.80 Est Cr Clr Drug Dosing 61.5 Est GFR ( Amer) 87.2 Est GFR (Non-Af Amer) 75.2 BUN/Creatinine Ratio 32.9 H Glucose 190 H POC Glucose 203 H Calcium 9.4 Magnesium 2.1 06/01/21 11:02 WBC RBC Hgb Hct MCV MCH MCHC RDW Std Deviation RDW Coeff of Dorcas Plt Count MPV VBG pH VBG pCO2 VBG pO2 VBG HCO3 VBG O2 Saturation VBG Base Excess Barometric Pressure Sodium Potassium Chloride Carbon Dioxide Anion Gap BUN Creatinine Est Cr Clr Drug Dosing Est GFR ( Amer) Est GFR (Non-Af Amer) BUN/Creatinine Ratio Glucose POC Glucose 242 H Calcium Magnesium Medications Administered Current Inpatient Medications Acetaminophen (Acetaminophen 325 Mg Tab) 650 mg PO Q4H PRN PRN Reason: Pain or Fever Stop: 06/29/21 23:25 Albuterol (Albut/Ipratrop 3mg/0.5mg Neb 3 Ml Vial) 3 ml NEB QIDR [facility] Stop: 06/30/21 06:59 Last Admin: 06/01/21 15:10 Dose: 3 ml Documented by: Albuterol (Albuterol Hfa 8 Gm Inhaler) 2 puffs INH Q6 PRN PRN Reason: Shortness Of Breath Or Wheezin Stop: 06/29/21 23:25 Albuterol (Albut/Ipratrop 3mg/0.5mg Neb 3 Ml Vial) 3 ml INH QID PRN PRN Reason: Shortness Of Breath Or Wheezing Stop: 06/29/21 23:25 Last Admin: 05/31/21 00:02 Dose: 3 ml Documented by: Aspirin (Aspirin 81 Mg Ectab) 81 mg PO DAILY [facility] Stop: 06/30/21 08:59 Last Admin: 06/01/21 08:15 Dose: 81 mg Documented by: Atorvastatin Calcium (Atorvastatin 40 Mg Tab) 40 mg PO DAILY [facility] Stop: 06/30/21 08:59 Last Admin: 06/01/21 08:16 Dose: 40 mg Documented by: Azithromycin (Azithromycin 250 Mg Tab) 500 mg PO QAM [facility] Stop: 06/08/21 08:59 Last Admin: 06/01/21 08:15 Dose: 500 mg Documented by: Carvedilol (Carvedilol 12.5 Mg Tab) 12.5 mg PO BID [facility] Stop: 06/29/21 23:25 Last Admin: 06/01/21 08:16 Dose: 12.5 mg Documented by: Dextrose (Dextrose 50% 50 Ml Syringe) 25 - 50 ml IV UD PRN; Protocol PRN Reason: Hypoglycemia Protocol Stop: 06/29/21 23:25 Glucagon (Glucagon For Inj 1 Mg Vial) 1 mg SQ UD PRN; Protocol PRN Reason: Hypoglycemia Protocol Stop: 06/29/21 23:25 Glucose (Glucose 10 Tabs/Tube) 4 - 8 tabs PO UD PRN; Protocol PRN Reason: Hypoglycemia Protocol Stop: 06/29/21 23:25 Glucose (Glucose 40% Gel 15 Gm Tube) 15 - 30 gm PO UD PRN; Protocol PRN Reason: Hypoglycemia Protocol Stop: 06/29/21 23:25 Ceftriaxone Sodium 1,000 mg/ (Dextrose) 50 mls @ 100 mls/hr IV Q24H [facility]; Protocol Stop: 06/10/21 15:59 Last Infusion: 06/01/21 16:25 Dose: Infused Documented by: Insulin Aspart (Insulin Aspart 100 Units/Ml 3 Ml Pen) 0 units SC ACHS [facility] Stop: 06/29/21 23:25 Last Admin: 06/01/21 11:40 Dose: 4 units Documented by: Insulin Glargine (Insulin Glargine Solostar 100 Units/Ml 3 Ml Pen) 20 units SC Q12 [facility] Stop: 07/01/21 20:59 Insulin Human NPH (Insulin Human Nph) 15 units SC QAM [facility] Stop: 07/02/21 08:59 Lidocaine (Lidocaine 5% 1 Patch) 1 patch TD QAM [facility] Stop: 06/30/21 08:59 Last Admin: 06/01/21 08:16 Dose: Not Given Documented by: Losartan Potassium (Losartan Potassium 50 Mg Tab) 50 mg PO DAILY [facility] Stop: 06/30/21 08:59 Last Admin: 05/31/21 08:30 Dose: 50 mg Documented by: Melatonin (Melatonin 3 Mg Tab) 3 mg PO HS PRN PRN Reason: Sleep Stop: 06/29/21 23:37 Miscellaneous (Carbohydrates For Hypoglycemia ) 15 - 30 gm PO UD PRN PRN Reason: Hypoglycemia Protocol Stop: 06/29/21 23:25 Miscellaneous (Remove Lidoderm Patch) 1 ea N/A DAILY@2100 [facility] Stop: 06/30/21 20:59 Last Admin: 05/31/21 21:46 Dose: 1 ea Documented by: Oxycodone HCl (Oxycodone Hcl Ir 5 Mg Tab (Immediate Release)) 5 mg PO TID PRN PRN Reason: Pain Stop: 06/13/21 23:25 Last Admin: 06/01/21 12:32 Dose: 5 mg Documented by: Polyethylene Glycol (Polyethylene (Miralax) 17 Gm Pack) 17 gm PO BID PRN PRN Reason: Constipation Stop: 06/29/21 23:25 Prednisone (Prednisone 20 Mg Tab) 20 mg PO QAM [facility] Stop: 07/02/21 08:59 PG Care Time/CCT Total # of Minutes Spent Total Time Spent with Patient: Total time spent is greater than 50% in coordination of care (as documented) at patient's floor/unit and/or counseling patient: Coding Level of Care Code 03424 Subseq Hosp Care Lvl 3 Diagnoses Acute on chronic respiratory failure with hypoxemia J96.21 Pneumonia J18.9 Acute hypercapnic respiratory failure J96.02 TATY (acute kidney injury) N17.9 COPD exacerbation J44.1 Acute UTI N39.0 Acute hypotension I95.9 Syncope R55 Syncope type: unspecified AMS (altered mental status) R41.82 Hyperglycemia R73.9 (1) Syncope Syncope type: unspecified Qualified Code(s): R55 - Syncope and collapse
--- NOTE | 2021-06-01 19:15 | XCELERA ---
[id number]
--- NOTE | 2021-06-02 06:13 | Electrocardiogram Report ---
Test Reason : Blood Pressure : / mmHG Vent. Rate : 087 BPM Atrial Rate : 087 BPM P-R Int : 156 ms QRS Dur : 084 ms QT Int : 378 ms P-R-T Axes : 067 018 064 degrees QTc Int : 454 ms Normal sinus rhythm Low voltage QRS Borderline ECG When compared with ECG of 30-MAY-2021 14:32, No significant change was found Confirmed by Mickey Lobato ([id number]) on 06/02/2021 6:13:15 AM Referred By: REFERRED SELF Confirmed By:Mickey Lobato
[2021-06-02 06:49] LABS: BUN Creatinine Ratio 38.8 (10-20); Calcium 8.9 mg/dl (8.5-10.1); Creatinine Clr Calc Pharmacy 66.6 ml/min; Est GFR (African American) 97.4 ml/min; Potassium 3.9 mmol/L (3.5-5.1)
[2021-06-02 07:04] LABS: Estimated Average Glucose 192 mg/dl; Hemoglobin A1C 8.3 % (4.5-5.6)
[2021-06-02] MEDS: ALBUT/IPRATROP 3MG/0.5MG NEB 3 ML VIAL NEB SCH ×2 (07:11→11:12)
[2021-06-02] MEDS: ATORVASTATIN 40 MG TAB PO SCH (08:03)
[2021-06-02] MEDS: ASPIRIN 81 MG ECTAB PO SCH (08:03)
[2021-06-02] MEDS: carvediloL 12.5 MG TAB PO SCH (08:03)
[2021-06-02] MEDS: AZITHROMYCIN 250 MG TAB PO SCH (08:04)
[2021-06-02] MEDS: LIDOCAINE 5% 1 PATCH TD SCH (08:07)
[2021-06-02] MEDS: INSULIN GLARGINE SOLOSTAR 100 UNITS/ML 3 ML PEN SC SCH (08:17)
[2021-06-02] MEDS: oxyCODONE HCL IR 5 MG TAB (IMMEDIATE RELEASE) PO PRN (08:17)
[2021-06-02] MEDS: INSULIN ASPART 100 UNITS/ML 3 ML PEN SC SCH ×2 (08:17→11:40)
[2021-06-02] MEDS ORDERED: predniSONE 20 MG TAB PO SCH (09:00)
[2021-06-02] MEDS ORDERED: INSULIN HUMAN NPH SC SCH (09:00)
--- NOTE | 2021-06-02 10:59 | Discharge Summary ---
Date of Service June 02, 2021 Admission HPI Per Admitting Provider 71 y/o F Hx HTN, HLD, DM, low back pain, anemia, advanced COPD - 3L 02. she presents at the behest of her for poor mentation. He also stated that she was lightheaded the prior laci and may have either fallen or suffered a syncopal episode. The pt is slow to provide information, but does states that she is short of breath above baseline. She was hypotensive on arrival to the ER and responded to IVF. She had a fever on arrival. Labs were notable for a + UA and TATY. A CT chest demonstrated bullous emphysema and a new 8mm nodule in the RML. PMH: 1) Bullous emphysema / COPD - 3L home 02 2) HTN 3) HLD 4) DM II 5) Obese 6) Anemia - baseline Hb 10.5 7) Chronic low back pain - opiate dependent 8) recurrent PNM 9) Prior granulomatous lung disease 10) L peroneal nerve palsy 11) Abdominal aortic aneurysm 12) Nephrolithiasis Surgical: 1) Appendectomy 2) Hysterectomy 3) Ankle surgery 4) Cholecystectomy 5) Lithotripsy Social: Continues to smoke cigarettes. Denies alcohol use. Family: Could not provide Principal Diagnosis COPD exacerbation, probable left lower lobe pneumonia Discharge Exam Constitutional well developed; no acute distress Neck trachea midline, no thyromegaly Respiratory normal respiratory effort and + cough; no respiratory distress Auscultation: + diminished lung sounds; no wheezes Cardiovascular RRR, no murmur, no edema Gastrointestinal (Abdomen) normal bowel sounds, soft, nontender, no hepatosplenomegaly Musculoskeletal no cyanosis or clubbing, extremities motor strength 5/5 Skin no rashes, warm and dry Neurologic normal touch/pain/proprioception, CN's II-XI intact bilaterally, moves all extremities and awake; no focal motor deficits Psychiatric A+Ox3, euthymic affect Lymphatic no cervical or axillary lymphadenopathy Discharge Data Allergies Allergy/AdvReac Type Severity Reaction Status Date / Time diflunisal Allergy Unknown HEART RACES Verified 05/30/21 15:33 Consultations 05/30/21 17:30 ED Decision to Admit Stat Ordered Studies 05/30/21 14:46 CT abd pelvis IV con only Stat CT cervical spine wo con Stat CT chest diagnostic w con Stat CT head/brain wo con Stat CT lumbar spine w con Stat Hospital Course (1) Acute on chronic respiratory failure with hypoxemia: typically on 3-4L at home, suspect she runs around 90% now on 3-4L for two days, no distress, would not be compliant with BIPAP treat pneumonia with Rocephin and Zithromax - change to PO on discharge treat COPD exacerbation with Solu Medrol 40 q12 - change to Prednisone 20mg daily for several more days Lasix 20mg IV on 05/31 and 06/01, good response echo with preserved EF, would not use Lasix routinely, just PRN weaned down to 3L (baseline), stable for discharge, patient wants to go home (2) Pneumonia: CXR with left lower lobe infiltrate? will treat with Rocephin and Zithromax change to Cefdinir on discharge plus Zithromax no fever, cough is non-productive (3) Acute hypercapnic respiratory failure: pH 7.2 and CO2 elevated on admission, treated with BIPAP she is non-compliant once more alert VBG with normal pH in the morning two days in a row (4) TATY (acute kidney injury): Cr 1.35 on admission given IV fluids (LR) and now Cr 0.8 sensitive to fluid shifts, developed pulmonary edema from the initial IV fluids treated with Lasix 20m IV on 05/31 and 06/01 on 06/02 her lungs are clear renal function is at baseline (5) COPD exacerbation: Solu Medrol, antibiotics, duonebs change to Prednisone 20mg daily for several more days has Duoneb at home (6) Acute UTI: Rocephin, follow up on urine culture - Klebsiella, diaz sensitive Cefdinir on discharge (7) Acute hypotension: resolved, now hypertensive (8) Syncope: likely from hypoxia or hypercapnia keep on monitor check echo - preserved EF of 65%, no (9) AMS (altered mental status): she is alert and oriented x 72 hours likely from hypercapnia, infection cannot recall details from admission but that is not surprising (10) Hyperglycemia: DM type II she needs a meter and test strips, script provided will utilize NPH insulin 15 units with the Prednisone 20mg daily resume oral agents told her to follow zachary strict low carb diet while on the Prednisone I certify that this patient is under my care and that I, or a physicians assistant grocery store manager working with me, had a face to-face encounter that meets the home health [id number] encounter requirements with this patient. The encounter with the patient was in whole, or in part, for the following medical condition, which is the primary reason for home health care (list medical condition): Resumption of Care - Medication Compliance I certify that, based on my findings, the following services are medically necessary home health services: My clinical findings support the need for the above services because: Medication Compliance and Monitoring Effective of New Medications Medication Compliance Skilled Nsg Assessment Further, I certify that my clinical findings support that this patient is homebound (i.e. absences from home require considerable and taxing effort and are for medical reasons or yarsani services or infrequently or of short du ration when for other reasons) because: Supportive Aid - Walker Certification for Home Health Services: Based on the above findings, I certify that this patient is confined to the home and needs intermittent long-term care, physical therapy and/or speech therapy or continues to need occupational therapy. The patient is under my care, and I have initiated the establishment of the plan of care. This patient will be followed by a physician who will periodically review the plan of care. Total Time Total Time Spent Total Time Spent (In Minutes): 45 Total Time Includes: Examination of the Patient, Discharge Planning, Medication Reconciliation and Other (several phone calls to the pharmacy to figure out glucose meter coverage) Discharge Plan Discharge Items Patient Disposition: Home - Home Health Services Reason For Visit: AMS, COPD EXACERBATION Discharge Diagnosis: COPD exacerbation Left lower lobe pneumonia Acute hypercapnia (resolved) Chronic hypoxic respiratory failure Condition on Discharge: Good Goals: complete course of Prednisone use NPH Insulin to prevent hyperglycemia, monitor sugars Activity: Resume your previous activity Exercise/Sports: Gradually increase as tolerated Weightbearing: Full weightbearing Non-emergency contact: Primary Care Provider Call non-emergency contact if: you have any medication questions and your symptoms worsen Follow-up/Referrals: Karo Champagne CRNP [Primary Care Provider] - (one week CALLED AND SPOKE WITH KARISSA Roy MD OFFICE, SHE SAID SHE DOESN'T HAVE PATIENT IN THEIR SYSTEM SO I CALLED PATIENT AND PATIENT CONFIRMED THIS IS THE CORRECT MEDICAL FACILITY. PATIENT SAID SHE WOULD CALL AND SCHEDULE HERSELF. I CALLED MD OFFICE BACK AND TOLD THEM PATIENT SAID SHE WOULD CALL THEM.) Diet: Carb Consistent or DM2 and Heart Healthy Addtl Attending Provider Instructions: Medications: please finish a course of medications below to treat COPD and pneumonia - PREDNISONE: take 20mg daily for 4 days and then 10mg daily for 4 days - ZITHROMAX: take 500mg daily for 2 more days, next dose due tomorrow morning - CEFDINIR: take 300mg twice a day for 4 more days, next dose due tomorrow morning - NPH INSULIN: take 15 units in the morning for 4 days, this is to help with preventing high sugars while on the Prednisone 20mg, no need to take insulin when on 10mg of Prednisone - MUCINEX: take 600mg twice a day for 4-5 days, this is available over the counter, thins out mucous use Nebulizers four times a day scheduled for the next 4-5 days COPD exacerbation, pneumonia, acute on chronic hypoxia, dehydration improved with steroids, antibiotics, nebulizers stable on your baseline 3L nasal canula complete the above medications Diabetes: sugars were very elevated at first with high dose steroids, better now with insulin recommend you resume Metformin and Jardiance recommend you take NPH insulin 15 units every morning with Prednisone for the next 4 days I called your pharmacy, they are not sure about what meter and test strips and lancets your insurance covers as you have not gotten them before will give you a paper script for two different types and see which one is covered check your sugars once a day at random and recommend you check it if you feel weak, sweaty (like your sugar is low) Pending Studies at Discharge: No Stand-Alone Forms: My [facility], Smoking Cessation Medications and DC Order Prescriptions: New prednisone 20 mg Tablet 20 mg PO UD 8 Days Qty: 12 RF: 0 Novolin N NPH U-100 Insulin 100 unit/mL Suspension 15 unit SC QAM 4 Days Qty: 0.6 RF: 0 cefdinir 300 mg capsule 300 mg PO BID 4 Days Qty: 8 RF: 0 (DME) blood-glucose meter [OneTouch Verio Meter[place] [facility] [place]OUTE .MEDSUPPLY Qty: 1 RF: 0 (DME) OneTouch Verio test strips Strip See Rx Instructions .ROUTE .MEDSUPPLY Qty: 50 RF: 3 (DME) lancets [OneTouch Delica Lancets] 33 gauge misc See Rx Instructions .ROUTE .MEDSUPPLY Qty: 100 RF: 3 Continued ipratropium-albuterol 0.5 mg-3 mg(2.5 mg base)/3 mL solution for nebulization 3 ml INHALATION QID PRN (Reason: Shortness Of Breath Or Wheezing) RF: 0 atorvastatin 40 mg tablet 40 mg PO DAILY RF: 0 carvedilol 12.5 mg tablet 12.5 mg PO BID RF: 0 budesonide 0.5 mg/2 mL suspension for nebulization 0.5 mg inhalation BID RF: 0 diltiazem HCl [Cartia XT] 120 mg capsule,extended release 24hr 120 mg PO DAILY RF: 0 aspirin [Aspirin Low Dose] 81 mg Tablet,Delayed Release (Dr/Ec) 81 mg PO DAILY RF: 0 albuterol sulfate 90 mcg/actuation HFA aerosol inhaler 2 puff INHALATION Q6 PRN (Reason: Shortness Of Breath Or Wheezing) RF: 0 losartan 50 mg tablet 50 mg PO DAILY RF: 0 metformin 1,000 mg tablet 1,000 mg PO BID RF: 0 Jardiance 10 mg tablet 10 mg PO DAILY RF: 0 oxycodone 5 mg tablet 5 mg PO TID PRN (Reason: Pain) RF: 0 polyethylene glycol 3350 [Miralax] 17 gram powder in packet 17 g PO BID PRN (Reason: Constipation) RF: 0 ondansetron HCl [Zofran] 4 mg tablet 4 mg PO Q6H PRN (Reason: nausea and vomiting) Qty: 6 RF: 0 Discharge Orders: Discharge Order (Routine); Ordered 06/02/21 Ordered By: Tushar Robertson Admission Data Admit Date/Time: 05/30/21 21:28 Attending Provider: Tushar Robertson Admit Provider: Sanjeev Bryan Primary Care Provider: Karo Champagne Other Providers: Sanjeev Bryan Other Interventions: Discharge Summary Assessment (RN) Last Done: 06/02/21 10:48 Coding Level of Care Code D/C DAY MANAGEMENT >30 MINS Diagnoses Acute on chronic respiratory failure with hypoxemia J96.21 Pneumonia J18.9 Acute hypercapnic respiratory failure J96.02 TATY (acute kidney injury) N17.9 COPD exacerbation J44.1 Acute UTI N39.0 Acute hypotension I95.9 Syncope R55 Syncope type: unspecified AMS (altered mental status) R41.82 Hyperglycemia R73.9
--- NOTE | 2021-06-13 08:49 | Coding Query ---
CONGESTIVE HEART FAILURE To Promote full compliance with coding requirements relating to patient care, physician participation is requested in all cases of invoice coder uncertainty. Please assist us with the following questions. A diagnosis of Congestive Heart Failure is documented in the patient's medical record. To accurately code this diagnosis and to compare patient severity, we ask that you specify the type of heart failure by placing an X within the parenthesis (x).Lasix given on 05/31 & 06/01 . Thanks for your help! Rolando Faust, [facility] SYSTOLIC HEART FAILURE ( ) Acute ( ) Chronic ( ) Acute on Chronic ( ) Rheumatic ( ) Unknown DIASTOLIC HEART FAILURE (x ) Acute ( ) Chronic ( ) Acute on Chronic ( ) Rheumatic ( ) Unknown COMBINED SYSTOLIC AND DIASTOLIC HEART FAILURE ( ) Acute ( ) Chronic ( ) Acute on Chronic ( ) Rheumatic ( ) Unknown Was the CHF Present On Admission? Please check the appropriate box: ( ) Present on Admission ( x) Not Present On Admission ( ) Clinically undetermined Thank you Rolando OBANDO
== END 2021-06-02 12:39 | disposition home health service (06) | DRG 689 ==
LOC: ED 14:19 → SUATTDRO 21:28 → 2S 21:28

== ENCOUNTER 2021-07-16 13:09 | Inpatient (IN) ==
[2021-07-16] MEDS ORDERED: NALOXONE HCL 0.4 MG/1 ML VIAL/CARP IV STA ×2 (13:25→18:12)
[2021-07-16] MEDS ORDERED: ALBUT/IPRATROP 3MG/0.5MG NEB 3 ML VIAL NEB ONE (13:26)
[2021-07-16] MEDS ORDERED: methylPREDNISolone 125 MG/2 ML VIAL IV STA (13:26)
--- NOTE | 2021-07-16 13:54 | XRay Report ---
XR chest 1V portable HISTORY: Atypical Chest Pain COMPARISON: Chest 05/31/2021. FINDINGS: Mild emphysema. There is mild diffuse interstitial thickening. This is likely chronic. This is most pronounced within the left lung base. There is stable blunting left lateral costophrenic sul cus. There are calcified granulomas within the right lung base. The heart is normal in size. No pneum othorax. IMPRESSION: 1. No change in the mild emphysema. 2. Mild diffuse interstitial thickening which is likely chronic. 3. Stable blunting within the left lateral costophrenic sulcus which could represent a trace pleural effusion. This will be better appreciated on the same day abdomen and pelvis CT. ACT 112: Negative or not required by law. Electronically signed by: Wicho Gutierrez M.D. 07/16/2021 1:53 PM
[2021-07-16 14:11] LABS: Base Excess VBG -4.1 mEq/L; Oxygen Saturation VBG 66.9 %; pH VBG 7.16 (7.36-7.41)
[2021-07-16 14:17] LABS: Basophils # (auto) 0.06 K/uL (0-0.2); Basophils % (auto) 0.7 %; Eosinophils % (auto) 2.2 %; Hematocrit (blood only) 34.7 % (37-47); Hemoglobin 10.2 g/dL (12.0-16.0); Immature Granulocytes # (auto) 0.09 K/uL (0.00-0.02); Lymphocytes # (auto) 2.21 K/uL (1.2-3.4); Lymphocytes % (auto) 24.8 %; Mean Corpuscular Hemoglobin 25.5 pg (25-34); Mean Corpuscular Hgb Conc 29.4 g/dL (32-36); Mean Corpuscular Volume 86.8 fL (80-100); Monocytes # (auto) 0.72 K/uL (0.11-0.59); Monocytes % (auto) 8.1 %; Neutrophils # (auto) 5.64 K/uL (1.4-6.5); Neutrophils % (auto) 63.2 %; Platelet Count 640 K/uL (130-400); RDW Coefficient of Variation 19.8 % (11.5-14.5); RDW Standard Deviation 62.9 fL (36.4-46.3); White Blood Count 8.92 K/uL (4.8-10.8)
[2021-07-16 14:24] LABS: Partial Thromboplastin Time 26.8 Seconds (21.0-31.0)
[2021-07-16] MEDS ORDERED: STAT IV Infusion **Titration per Protocol STA (14:26)
[2021-07-16] MEDS ORDERED: NALOXONE HCL 5 MG in 0.9 % SODIUM CHLORIDE 87.5 ML IV SCH (14:30)
[2021-07-16 14:40] LABS: Alanine Aminotransferase 127 U/L (12-78); Albumin Globulin Ratio 0.9 (0.9-2); Albumin Level 2.9 gm/dl (3.4-5.0); Alkaline Phosphatase 136 U/L (45-117); Aspartate Aminotransferase 15 U/L (15-37); BUN Creatinine Ratio 24.6 (10-20); Bilirubin,Total 0.4 mg/dl (0.2-1); Blood Urea Nitrogen 16 mg/dl (7-18); Calcium 8.5 mg/dl (8.5-10.1); Carbon Dioxide 24 mmol/L (21-32); Chloride 109 mmol/L (98-107); Creatinine Clr Calc Pharmacy 73.8 ml/min; Est GFR (Non-African American) 90.6 ml/min; Globulin 3.4 gm/dl (2.5-4.0); Glucose 133 mg/dl (70-99); Lipase 153 U/L (73-393); Potassium 6.2 mmol/L (3.5-5.1); Sodium 139 mmol/L (136-145); Total Protein 6.3 gm/dl (6.4-8.2); Troponin I < 0.015 ng/ml (0-0.045)
[2021-07-16] MEDS ORDERED: NALOXONE HCL 0.4 MG/1 ML VIAL/CARP IV ONE (14:41)
[2021-07-16 14:50] LABS: Salicylate 1.9 mg/dl (2.8-20)
[2021-07-16] MEDS ORDERED: SODIUM CHLORIDE 0.9% 1000ML 500 ML IV ONE (15:03)
[2021-07-16] MEDS ORDERED: DEXTROSE 50% 50 ML SYRINGE IV ONE (16:28)
[2021-07-16] MEDS ORDERED: NovoLIN-R INSULIN PER UNIT CHARGE IV STA (16:28)
[2021-07-16] MEDS ORDERED: SODIUM BICARB 8.4% INJ 50 MEQ/50 ML SYR IV STA (16:28)
[2021-07-16] MEDS ORDERED: CALCIUM GLUCONATE 1,000 MG/60 ML BAG IV STA (16:28)
[2021-07-16 16:36] LABS: iSTAT Creatinine 0.7 mg/dl (0.6-1.3); iSTAT Hemoglobin 11.6 g/dl (12.0-16.0); iSTAT Ionized Calcium 1.29 mmol/l (1.12-1.32); iSTAT Potassium 6.7 mmol/L (3.3-5.0)
[2021-07-16] MEDS ORDERED: OPTIRAY 320 125ml IV ONE (17:29)
--- NOTE | 2021-07-16 17:55 | CT Scan Report ---
CT SCAN OF THE BRAIN WITHOUT IV CONTRAST CLINICAL HISTORY: Change in mental status. Obtundation. COMPARISON STUDY: CT of the brain dated 05/30/2021. TECHNIQUE: Unenhanced axial CT scan of the brain is performed from the vertex to the skull base. A do se lowering technique was utilized adhering to the principles of ALARA. The examination is compromise d by motion artifact. The patient was scanned 3 times in an effort to improve image quality. CT DOSE: 2677.19 mGy.cm FINDINGS: Brain parenchyma: There are age-related involutional changes noting mild subcortical and periventric ular microangiopathic change. There is no hemorrhage, mass effect, or evidence of acute territorial i schemia by CT criteria. Mineralization is noted in the basal ganglia. Cooper-white matter differentiati on is preserved. No extra-axial fluid collection is seen. Ventricles, sulci, cisterns: Prominent secondary to involutional change. Intracranial vasculature: There is atherosclerotic calcification of the cavernous carotid and vertebr al arteries. Calvarium: Unremarkable. Sinuses and mastoids: The paranasal sinuses are clear. The mastoid air cells are well pneumatized. Orbits: The bony orbits are grossly intact. There are bilateral ocular lens implants. IMPRESSION: There is no hemorrhage, mass effect, or evidence of acute territorial ischemia by CT crit ethan noting a significantly motion compromised examination. ACT 112: Negative or not required by law. Electronically signed by: Koby Wallace M.D. 07/16/2021 5:53 PM
--- NOTE | 2021-07-16 17:58 | CT Scan Report ---
CHEST CTA for PULMONARY ARTERIES CT DOSE: HISTORY: Shortness of breath. Evaluate for pulmonary embolus. TECHNIQUE: Multiaxial CT images of the chest were performed following the intravenous administration of contrast to evaluate the pulmonary arteries. Maximal intensity projection images were also obtaine d. A dose lowering technique was utilized adhering to the principles of ALARA. COMPARISON STUDY: Chest CT 05/30/2021. FINDINGS: Moderate atherosclerotic plaque within the normal caliber thoracic aorta. No evidence for a n aortic dissection. The heart is normal in size. No pleural or pericardial effusions. Nondiagnostic evaluation of the majority of the bilateral lower lobe segmental and subsegmental pulmonary arteries. However, the remaining pulmonary arteries show no filling defects to suggest a pulmonary embolus. Pl ease refer to the same day abdomen and pelvis is 2 for further evaluation of the abdominal structures . Normal esophagus. No acute fractures within the visualized osseous structures. There are old, heale d right anterior rib fractures. Calcified subcarinal/right hilar lymph nodes. No change in the promin ent mediastinal lymph nodes with the dominant precarinal lymph node measuring 11 mm in short axis terrence meter. No hilar lymphadenopathy. Moderate emphysema. No pneumothorax. Linear focus of consolidation w ithin the left upper lobe medially which is new from the prior study. The 1.4 cm groundglass density within the right lung apex posteriorly on image 268. This has slightly progressed. Linear density wit hin the right middle lobe favors subsegmental atelectasis are scarring. The punctate calcified granul saranya within the right lower lobe. Small amount of mucoid material within the left mainstem bronchus. IMPRESSION: 1. No evidence for pulmonary embolus with limitations as described above. 2. Linear area of consolidation within the left upper lobe medially. This may represent atelectasis o r pneumonia. 3. Moderate emphysema. 4. A 1.4 cm groundglass density within the right lung apex. This has slightly progressed in the inter scot. Therefore, follow-up chest CT and 3 6 months is recommended to ensure stability/resolution. ACT 112: Positive. There are findings on this exam that require communication between the performing entity and the patient following Patient Test Result Information Act ([place] Act 112) guidelines. Electronically signed by: Wicho Gutierrez M.D. 07/16/2021 5:57 PM
--- NOTE | 2021-07-16 18:03 | CT Scan Report ---
CT SCAN OF THE ABDOMEN AND PELVIS WITH IV CONTRAST CLINICAL HISTORY: Generalized abdominal pain. Obtunded. COMPARISON STUDY: Abdominal CT dated 05/30/2021. TECHNIQUE: Following the IV administration of 120 cc of Optiray 320, CT scan of the abdomen and pelv is is performed from the lung bases to the proximal femora. Images are reviewed in the axial, sagitta l, and coronal planes. IV contrast was administered without complication. A dose lowering technique w as utilized adhering to the principles of ALARA. The examination is degraded by motion artifact, as w ell as by streak artifact from the arms which could not be elevated above the abdomen or pelvis. FINDINGS: Lung bases: The heart is normal in size and without pericardial effusion. The coronary arteries are d ensely calcified. A tiny hiatal hernia is noted. Advanced and edematous change is seen at the lung ba ses. There is bibasilar scarring and/atelectasis. Scattered calcified granulomas are observed. Liver: The contrast-enhanced liver is normal in size, contour, and attenuation. There is minimal cent ral intrahepatic biliary ductal dilatation. The hepatic veins and portal veins are patent. Gallbladder: Surgically absent noting clips in the gallbladder fossa. Spleen: Normal in size and attenuation. There are numerous calcified splenic granulomas. Pancreas: Prominence of the pancreatic duct is similar to previous. The pancreas is moderately atroph ic and otherwise grossly unremarkable. Adrenal glands: Bilateral adrenal nodules are similar to previous. Kidneys: The contrast enhanced kidneys demonstrate mild cortical atrophy and are without hydronephros is. The kidneys enhance symmetrically. Abdominal vasculature: There is advanced atherosclerotic calcification of the abdominal aorta. An inf rarenal abdominal aortic aneurysm measures 3.5 x 3.7 cm (AP x transverse). The aneurysm sac extends 5 .4 cm in craniocaudal length. Bowel: There is mild to moderate colonic diverticulosis without CT evidence of acute diverticulitis. No bowel obstruction is seen. Submucosal fat deposition is noted throughout the right colon. The appe ndix is not visualized. Peritoneum: There is no intraperitoneal free air or abdominal ascites. There is a fat-containing umbi lical hernia. Lymphadenopathy: None. Pelvic viscera: Small foci of gas are noted within the bladder lumen. The bladder is distended but ot herwise normal in appearance. The uterus is surgically absent. No adnexal lesion is seen. Skeletal structures: The skeletal structures are osteopenic. The lumbosacral spine, bony pelvis, and proximal femora appear intact. There is moderate lumbosacral spondylosis. No lytic or blastic lesions are seen. A 2.5 cm benign-appearing sclerotic lesion is again seen in the right femoral neck, possib ly representing an enchondroma. 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 IMPRESSION: 1. Streak and motion compromised examination. 2. No acute infectious or inflammatory findings are seen in the abdomen or pelvis. 3. A 3.5 x 3.7 cm infrarenal abdominal aneurysm is unchanged. 4. Advanced emphysema. 5. Nonspecific gas within the bladder lumen may be related to instrumentation. Correlation with clini [place]on findings and urinalysis will be required. 6. Additional findings as above. ACT 112: Negative or not required by law. Electronically signed by: Koby Wallace M.D. 07/16/2021 6:01 PM
[2021-07-16 18:12] LABS: Appearance Urine Clear (Clear); Bacteria Urine Automated 1+ (Negative); Bilirubin Urine Negative (Negative); Blood Urine Negative (Negative); Color Urine Yellow; Epithelial Cell Urine Auto >30 /lpf (0-5); Glucose Urine UA 3+ (Negative); Ketones Urine Trace (Negative); Leukocyte Esterase Urine Negative (Negative); Nitrite Urine Positive (Negative); Protein Urine Negative (Negative); Specific Gravity Urine 1.023 (1.000-1.030); Urobilinogen Urine Negative (Negative)
[2021-07-16 18:24] LABS: RBC Urine Automated 0-4 /hpf (0-4)
[2021-07-16] MEDS ORDERED: cefTRIAXone SODIUM 2,000 MG/70 ML BAG IV STA (18:31)
[2021-07-16 18:44] LABS: Amphetamines+Metham, Urine Neg (Neg); Barbiturates, Urine Neg (Neg); Benzodiazepine, Urine Neg (Neg); Cocaine, Urine Neg (Neg); MDMA (Ecstacy), Urine Neg (Neg); Methadone, Urine Neg (Neg); Opiate, Urine Neg (Neg); Phencyclidine, Urine Neg (Neg)
[2021-07-16 19:11] LABS: Creatine Kinase MB 3.1 ng/ml (0.5-3.6)
--- NOTE | 2021-07-16 19:23 | Critical Care Consultation ---
Date of Consultation July 16, 2021 Assessment & Plan (1) Respiratory failure with hypercapnia: Reason Critically Ill: Daniella Gandara is a 71 yo female with PMHx significant for COPD with chronic respiratory failure (uses 3L supplemental O2 via NC), T2DM (A1c 8.3 in 05/2021), chronic tobacco use, HTN, HLD, AAA, h/o recurrent pneumonia, and recurrent UTIs (most recent was diaz-sensitive Klebsiella) who was admitted to the ICU on 07/16 for close hemodynamic monitoring in setting of acute on chronic hypercapnic respiratory failure. Neuro: Encephalopathy due to acute hypercarbic respiratory failure. Narcotic overdose may be contributing to this, given the patient's home opioids and improvement in mental status with Narcan. Sepsis may also be contributing (UTI +/- ?PNA). Also mild COPD exacerbation may be playing a role although no wheezes on my exam. Patient currently improved on BiPAP and Narcan gtt - able to follow simple commands. - Head CT without acute process - initial UDS negative (including opiates); confirmation pending - will continue Narcan gtt for now, pending further improvement in mental status - maintain close monitoring while in ICU Cardiac: HTN/HLD. - hold home Carvedilol, Diltiazem, and Losartan in setting of possible sepsis - continue home statin Respiratory: Acute on chronic hypercapnic respiratory failure, likely multifactorial as stated above - Narcan overdose, possible sepsis, and mild COPD exacerbation. Currently satting well on BiPAP 10/28/40 and without increased work of breathing - CXR/CTA chest showing chronic emphysema as well as THELMA linear consolidation and RUL ground-glass density - VBG showing respiratory acidosis; ABG ordered - pending - continue BiPAP to maintain 88-92% - continue Narcan gtt for now as stated above - received Solu-Medrol x1 in the ED, will continue with Solu-Medrol 40mg IV BID - continue DuoNebs - continue home COPD inhalers - Zosyn for atypical coverage, as stated below - patient will need f/u CT chest in 3-6 months for RUL nodule GI: CT A/P without acute process. Patient has mild transaminitis (ALT 127), likely due to impaired perfusion in context of possible sepsis. - NPO, pending improvement in mental status and respiratory status - trend LFTs daily RENAL/LYTES: Hyperkalemia, in the setting of possible sepsis. - s/p calcium gluconate, insulin and dextrose x1 - will obtain repeat BMP/Mg/Phos now, treat hyperkalemia as necessary - replete electrolytes as necessary : UTI, as specified below in ID. - we will place pederson catheter - strict I/Os ENDO: T2DM, last A1c 8.3 in 05/2021. - glycemic management per ICU - random cortisol ordered to assess adrenal status - pending - TSH ordered - pending HEME: Chronic normocytic anemia. Suspect anemia of chronic disease. - trend CBC ID: Sepsis with qSOFA score of 2 and SIRS score of 2. Suspect UTI. CTA chest interpretation of THELMA linear consolidation may be atelectasis vs PNA but would suspect the former. Also, given unclear history and some constitutional symptoms, tick-borne illness may be contributing. - MRSA nasal swab ordered - pending - peripheral smear and tick panel ordered - pending - CRP, Procalcitonin, Lactate ordered - pending - we will start broad antibiotic coverage with Zosyn - continue IVFs with Normosol-R @ 100cc/hr - follow MRSA swab as well as blood/urine cultures, and adjust abx as necessary LINES/IV ACCESS - PIVs intact. DVT PROPHYLAXIS - Lovenox CODE STATUS: full code Disposition: admit to ICU for close hemodynamic monitoring Thank you for allowing us to be part of this patient's care. Please refer to Dr. Euceda's documentation for any further recommendations. (2) Encephalopathy: (3) COPD (chronic obstructive pulmonary disease): (4) Hyperkalemia: History of Present Illness Reason for Consultation: acute hypercapnic respiratory failure Requesting Physician: Dr. Ernst Attending Physician: Dr. Ernst History of Present Illness Daniella Gandara is a 71 yo female with PMHx significant for COPD with chronic respiratory failure (uses 3L supplemental O2 via NC), T2DM (A1c 8.3 in 05/2021), chronic tobacco use, HTN, HLD, AAA, h/o recurrent pneumonia, and recurrent UTIs (most recent was diaz-sensitive Klebsiella) who was brought to [facility] by EMS for progressive fatigue/lethargy, nausea/vomiting, suprapubic pain and dysuria x several days. This above-mentioned history was provided by the patient's and EMS. En route the ED the patient received Narcan x1 given concern for respiratory depression in this patient with prescribed Oxycodone. In the ED the patient was somnolent but arousable to verbal stimulation and moving limbs spontaneously. She was given Narcan again in the ED and started on Narcan drip for suspected opioid overdose, with minimal improvement in mental status. She was started on BiPAP as she was tachypneic and borderline hypoxic on presentation - she is currently on 12/5/40% FiO2. Laboratory evaluation showed chronic anemia (Hgb 10.2), thrombocytosis 640, hyperkalemia of 6.2 that increased to 6.7 on re-evaluation, transaminitis (ALT 127); CBC, CMP, Mg, Phos were otherwise WNL. UA was positive for nitrites, WBCs and bacteria. UDS diaz-negative (including opiates). COVID negative. VBG showed respiratory acidosis (pH 7.16, pCO2 73, pO2 42, pHCO3 25). CXR showed chronic mild emphysema and mild diffuse interstitial thickening without acute change. CTA chest showed linear area of consolidation in THELMA, confirmed chronic emphysema, showed RUL ground-glass density, and was negative for PE. The patient was continued on BiPAP in the ED and was given Solu-Medrol x1 and DuoNeb x1 for COPD exacerbation. She was continued on Narcan gtt for possible narcotic overdose. She was given NSS 1L bolus and NaHCO3 x1 for respiratory acidosis. Lastly she was given calcium gluconate x1 and insulin/dextrose x1 for hyperkalemia. ICU was consulted for close hemodynamic monitoring in patient with acute on chronic hypercapnic hypoxic respiratory failure. Allergies Allergy/AdvReac Type Severity Reaction Status Date / Time diflunisal Allergy Unknown HEART RACES Verified 05/30/21 15:33 Home Medications Medication Instructions Recorded Confirmed Type albuterol sulfate 90 mcg/actuation 2 puff INHALATION Q6 PRN 08/28/20 05/30/21 History aerosol inhaler aspirin 81 mg tablet,delayed 81 mg PO DAILY 08/28/20 05/30/21 History release (Aspirin Low Dose) atorvastatin 40 mg tablet 40 mg PO DAILY 08/28/20 05/30/21 History budesonide 0.5 mg/2 mL suspension 0.5 mg INHALATION BID 08/28/20 05/30/21 History for nebulization carvedilol 12.5 mg tablet 12.5 mg PO BID 08/28/20 05/30/21 History diltiazem HCl 120 mg 120 mg PO DAILY 08/28/20 05/30/21 History capsule,extended release 24 hr (Cartia XT) empagliflozin 10 mg tablet 10 mg PO DAILY 08/28/20 05/30/21 History (Jardiance) losartan 50 mg tablet 50 mg PO DAILY 08/28/20 05/30/21 History metformin 1,000 mg tablet 1,000 mg PO BID 08/28/20 05/30/21 History ipratropium 0.5 mg-albuterol 3 mg 3 ml INHALATION QID PRN 09/25/20 05/30/21 History (2.5 mg base)/3 mL nebulization soln ondansetron HCl 4 mg tablet 4 mg PO Q6H PRN #6 tab 05/13/21 05/30/21 Rx (Zofran) oxycodone 5 mg tablet 5 mg PO TID PRN 05/13/21 05/30/21 History polyethylene glycol 3350 17 gram 17 g PO BID PRN 05/13/21 05/30/21 History oral powder packet (Miralax) blood sugar diagnostic (OneTouch #50 ea 06/02/21 Rx Verio test strips) blood-glucose meter (OneTouch #1 ea 06/02/21 Rx Verio Meter) lancets 33 gauge (OneTouch Delica #100 ea 06/02/21 Rx Lancets) Patient History Medical History (Updated 07/16/21 @ 19:36 by BRET Maharaj) AAA (abdominal aortic aneurysm) Acute hypotension Acute UTI Chronic low back pain COPD exacerbation Diabetes type 2, uncontrolled Diaphragmatic hernia (10/31/11) History of knee replacement Left peroneal nerve palsy Syncope Surgical History H/O Achilles tendon repair (~2007) H/O: hysterectomy History of appendectomy History of bilateral oophorectomies History of lithotripsy (~2007) Hx of cholecystectomy Family History Other Family history non-contributory Social History Smoking Status: Unknown if ever smoked Tobacco Type: Cigarettes Second Hand Exposure: No; Hx Alcohol Use: No Hx Substance Use: No Preferred Language: Estonian Communication Ability: Unable Trust Manager Assistant Required: No Beliefs That Will Affect Care: None Current Living Situation: Spouse Feels Safe at Home: Yes Assistive Devices: Oxygen - Continuous Review of Systems Review of Systems: Unobtainable due to reduced consciousness Physical Exam Physical Exam: General: Patient is lying in bed and appears to be comfortable on BiPAP. She was responsive to her name being called and was able to state her name and that she is in the hospital. HEENT: Atraumatic, normocephalic. BiPAP in place. Neck: trachea midline, no thyromegaly Pulm: crackles in left upper lung, diminished lung sounds bilaterally. -wheezes. Symmetrical chest rise. No increase work of breathing on BiPAP Cardiac: RRR, -mrg. Radial pulses intact and symmetrical. No LE edema. Abdominal: non-distended, soft, +suprapubic tenderness, NA BS x 4 Skin: warm, dry, no rash Results & Data Results & Data ([facility]) Vital Signs (Past 12 Hours) Vital Signs Temp Pulse Pulse Resp BP BP Pulse Ox 07/16/21 18:30 92 H 25 H 145/75 H 98 07/16/21 18:00 95 H 28 H 134/64 98 07/16/21 17:50 99 H 26 H 97 07/16/21 17:00 108 H 27 H 162/64 H 96 07/16/21 16:30 91 H 23 151/78 H 97 07/16/21 16:00 91 H 26 H 149/72 H 97 07/16/21 15:30 86 25 H 147/51 H 97 07/16/21 15:17 88 25 H 140/103 H 96 07/16/21 15:15 95 H 25 H 140/103 H 96 07/16/21 15:00 87 25 H 143/100 H 98 07/16/21 14:30 91 H 27 H 183/92 H 93 07/16/21 14:00 85 23 157/74 H 100 07/16/21 13:42 84 22 100 07/16/21 13:30 84 23 140/78 100 07/16/21 13:27 82 24 100 07/16/21 13:26 100 07/16/21 13:19 36.9 C 88 24 162/75 H 100 07/16/21 13:18 85 26 H 162/75 H 100 Laboratory Results Personally reviewed labs - see HPI Diagnostic Findings Personally reviewed imaging - see HPI Medications Administered see HPI Resident Activity Tracking Resident Involvement: Resident Care Provided Care Provided: Adult [facility] Medicine
--- NOTE | 2021-07-16 19:52 | History & Physical Report ---
Date of Service July 16, 2021 Assessment & Plan (1) Sepsis: Plan: Sepsis secondary to UTI and possible pulmonary involvement- pneumonia vs atelectasis - Zosyn 3.375 GM IV q8 - MRSA swab - Lacate pending, CRP pending, PCT pending - WBC normal at this time with NLR normal - budding yeast in urine, likely colonized- follow with repeat UA if desired - Blood cultures pending - lyme and anaplasmosis sent - LFTS likely acute phase reactant- gallbladder is surgically absent (2) UTI (urinary tract infection): Plan: As above (3) Respiratory failure with hypercapnia: Plan: Secondary to encephalopathy and hypoventilation at this time - does not appear to be COPD exacerbation at this time - ABG pending for PaO2 and PaCO2 - Continue budesonide nebs, albuterol nebs, and albuterol HFA - Wean BiPAP as mental status improves (4) Encephalopathy: Plan: originally presumed related to her narcotic use, however her UA is negative for opiates/benzo - continue Narcan drip until patient to ICU then can wean off - continue to search for alternate cause - Support respiratory acidosis - TSH and cortisol are pending - WBC normal, not chronically immunocompromised - if no improvement with acid base correction look for other causes- MRI, LP etc, HSV etc... (5) Acidosis: Plan: Primary respiratory acidosis- HCO3 normal - GAP 15- mild with normal HCO3 making euglycemic DKA unlikely - Patient is also on metformin- possible KOBY, but renal function is normal - lactate pending - Chloride 109 - Tylenol and salicylates normal - Serum osmo and urine osmo pending - Normosol at 100 ml per hour (6) Hyperkalemia: Plan: Likely related to acidosis with presenting PH at 7.1 - She is making urine- so if remains high can Kaliurese - Normosol for now, could also consider using LR (as LR will actually also help lower K) - Correct acidosis - Calcium gluc given in EMD -TSH and Cortisol pending (7) Abnormal chest xray: Plan: Atelectasis vs. Pneumonia - could also be residual/resolving from previous admission as this was left sided as well - consider broadening out if needed (8) Diabetes type 2, uncontrolled: Plan: Hold metformin Hold Jardiance - hyperglycemia protocol in the ICU (9) COPD (chronic obstructive pulmonary disease): Plan: Chronic - patient just completed course of steroids and abx for pneumonia/exacerbation (10) AAA (abdominal aortic aneurysm): Plan: Stable at 3.5x3.7 cm - maintain statin and BP control - BP medications on hold while NPO and until mentation improves History of Present Illness Primary Care Provider: BRET Bull 71 YOF with past medical history of : COPD, Syncope, encephalopathy, PNA, DMII, HTN, HLD, CKD, AAA. Patient arrives to the EMD today for alteration in mental status. The reports that she was taking care of him over the past 2 nights, got up this morning went and had morning coffee and took her medications and then she just laid her head on the table and he had a hard time waking her u p. The patient came to the EMD and on initial presentation was noted to be hypercarbic, acidotic, and hyperkalemic. She recieved a dose of Narcan as she is on oxycodone 5mg at home, which she reportedly increased her mentation and was placed on BiPAP 12/5 with her VT ranging 400-700 and RR in the 20-30 with appropriate SPo2. Patient also had a CT scan of the head performed that was negative for acute process. She had a UA done that does show likely infection and budding yeast. CTA of the chest negative for PE but possible pneumonia vs. atelectasis. Patient has multiple admissions in the past for same presentation with infectious etiology, most recent was in May 2021, where she was treated with Left lower lobe pneumonia, and UTI. Previous UTI was klebsiella diaz sensitive. Her bicarbonate level is normal at this time. Lactate and other bio-markers are pending. Patient will be admitted for sepsis. Transfer to ICU for continued pulmonary support and mental status monitoring. Allergies Allergy/AdvReac Type Severity Reaction Status Date / Time diflunisal Allergy Unknown HEART RACES Verified 05/30/21 15:33 Home Medications Medication Instructions Recorded Confirmed Type albuterol sulfate 90 mcg/actuation 2 puff INHALATION Q6 PRN 08/28/20 05/30/21 History aerosol inhaler aspirin 81 mg tablet,delayed 81 mg PO DAILY 08/28/20 05/30/21 History release (Aspirin Low Dose) atorvastatin 40 mg tablet 40 mg PO DAILY 08/28/20 05/30/21 History budesonide 0.5 mg/2 mL suspension 0.5 mg INHALATION BID 08/28/20 05/30/21 History for nebulization carvedilol 12.5 mg tablet 12.5 mg PO BID 08/28/20 05/30/21 History diltiazem HCl 120 mg 120 mg PO DAILY 08/28/20 05/30/21 History capsule,extended release 24 hr (Cartia XT) empagliflozin 10 mg tablet 10 mg PO DAILY 08/28/20 05/30/21 History (Jardiance) losartan 50 mg tablet 50 mg PO DAILY 08/28/20 05/30/21 History metformin 1,000 mg tablet 1,000 mg PO BID 08/28/20 05/30/21 History ipratropium 0.5 mg-albuterol 3 mg 3 ml INHALATION QID PRN 09/25/20 05/30/21 History (2.5 mg base)/3 mL nebulization soln ondansetron HCl 4 mg tablet 4 mg PO Q6H PRN #6 tab 05/13/21 05/30/21 Rx (Zofran) oxycodone 5 mg tablet 5 mg PO TID PRN 05/13/21 05/30/21 History polyethylene glycol 3350 17 gram 17 g PO BID PRN 05/13/21 05/30/21 History oral powder packet (Miralax) blood sugar diagnostic (OneTouch #50 ea 06/02/21 Rx Verio test strips) blood-glucose meter (OneTouch #1 ea 06/02/21 Rx Verio Meter) lancets 33 gauge (OneTouch Delica #100 ea 06/02/21 Rx Lancets) Past Med/Surg History Medical History AAA (abdominal aortic aneurysm) Acute hypotension Acute UTI Chronic low back pain COPD exacerbation Diabetes type 2, uncontrolled Diaphragmatic hernia (10/31/11) History of knee replacement Left peroneal nerve palsy Syncope Surgical History H/O Achilles tendon repair (~2007) H/O: hysterectomy History of appendectomy History of bilateral oophorectomies History of lithotripsy (~2007) Hx of cholecystectomy Family History Other Family history non-contributory Social History Smoking Status: Unknown if ever smoked Tobacco Type: Cigarettes Second Hand Exposure: No; Hx Alcohol Use: No Hx Substance Use: No Preferred Language: Icelandic Communication Ability: Unable Event Marketing Coordinator Required: No Beliefs That Will Affect Care: None Current Living Situation: Spouse Feels Safe at Home: Yes Assistive Devices: Oxygen - Continuous Review of Systems Review of Systems: Unable to obtain secondary to mentation Physical Exam Physical Exam: PHYSICAL EXAM: General: obtundation, on BiPAP, she is sitting with her legs crossed in bed Head: Normocephalic, atraumatic ENT: PERRL, mucous membranes dry Neuro: AAO x 1 GCS 10, speech incomprehensible sounds but with prodding can get a yes and no, sensation intact localizes pain, normal Babinski and no clonus noted Chest: equal rise and fall of the chest, no accessory muscle use, no heaves or thrills, decreased in bases no wheeze, on room air, Cardiac: Regular rate and rhythm, telemetry reviewed, skin warm dry, cap refill <3 seconds, peripheral pulses +2 no JVD, no murmur, no edema GI: NABS x 4 quadrants, soft, nontender to palpation, no rebound, guarding or tenderness : Gutierrez to gravity draining light yellow urine, no pain, Extremities: Normal inspection, no peripheral edema or erythema, calfs nontender to palpation Psych: obtunded Skin: no rash or erythema Results & Data Results & Data ([facility]) Vital Signs (Past 12 Hours) Vital Signs Temp Pulse Pulse Resp BP BP Pulse Ox 07/16/21 18:30 92 H 25 H 145/75 H 98 07/16/21 18:00 95 H 28 H 134/64 98 07/16/21 17:50 99 H 26 H 97 07/16/21 17:00 108 H 27 H 162/64 H 96 07/16/21 16:30 91 H 23 151/78 H 97 07/16/21 16:00 91 H 26 H 149/72 H 97 07/16/21 15:30 86 25 H 147/51 H 97 07/16/21 15:17 88 25 H 140/103 H 96 07/16/21 15:15 95 H 25 H 140/103 H 96 07/16/21 15:00 87 25 H 143/100 H 98 07/16/21 14:30 91 H 27 H 183/92 H 93 07/16/21 14:00 85 23 157/74 H 100 07/16/21 13:42 84 22 100 07/16/21 13:30 84 23 140/78 100 07/16/21 13:27 82 24 100 07/16/21 13:26 100 07/16/21 13:19 36.9 C 88 24 162/75 H 100 07/16/21 13:18 85 26 H 162/75 H 100 Laboratory Results Abnormal lab results 07/16/21 07/16/21 07/16/21 Range/Units 13:58 13:58 13:58 RBC 4.00 L (4.2-5.4) M/uL Hgb 10.2 L (12.0-16.0) g/dL POC Hgb (12.0-16.0) g/dl Hct 34.7 L (37-47) % POC Hct (37-47) % MCHC 29.4 L (32-36) g/dL RDW Std Deviation 62.9 H (36.4-46.3) fL RDW Coeff of Dorcas 19.8 H (11.5-14.5) % Plt Count 640 H (130-400) K/uL King # (Auto) 0.72 H (0.11-0.59) K/uL Immature Gran # (Auto) 0.09 H (0.00-0.02) K/uL VBG pH 7.16 L (7.36-7.41) VBG pCO2 73 H (38-50) mmHg POC Potassium (3.3-5.0) mmol/L Potassium 6.2 H* (3.5-5.1) mmol/L Chloride 109 H (98-107) mmol/L POC Anion Gap (16-25) mmol/L POC BUN (7-18) mg/dl BUN/Creatinine Ratio 24.6 H (10-20) Glucose 133 H (70-99) mg/dl POC Glucose (other) (70-99) mg/dl ALT 127 H (12-78) U/L Alkaline Phosphatase 136 H (45-117) U/L CK/CKMB % Calc (0-3.0) Total Protein 6.3 L (6.4-8.2) gm/dl Albumin 2.9 L (3.4-5.0) gm/dl Urine Glucose (UA) (Negative) Urine Ketones (Negative) Urine Nitrite (Negative) Urine WBC (Auto) (0-5) /hpf U Epithel Cells (Auto) (0-5) /lpf Urine Bacteria (Auto) (Negative) Urine Yeast (None Prsent) Salicylates (2.8-20) mg/dl Acetaminophen (10-30) ug/ml 07/16/21 07/16/21 07/16/21 Range/Units 13:58 13:59 16:21 RBC (4.2-5.4) M/uL Hgb (12.0-16.0) g/dL POC Hgb 11.6 L (12.0-16.0) g/dl Hct (37-47) % POC Hct 34 L (37-47) % MCHC (32-36) g/dL RDW Std Deviation (36.4-46.3) fL RDW Coeff of Dorcas (11.5-14.5) % Plt Count (130-400) K/uL King # (Auto) (0.11-0.59) K/uL Immature Gran # (Auto) (0.00-0.02) K/uL VBG pH (7.36-7.41) VBG pCO2 (38-50) mmHg POC Potassium 6.7 H* (3.3-5.0) mmol/L Potassium (3.5-5.1) mmol/L Chloride (98-107) mmol/L POC Anion Gap 15.0 L (16-25) mmol/L POC BUN 22 H (7-18) mg/dl BUN/Creatinine Ratio (10-20) Glucose (70-99) mg/dl POC Glucose (other) 147 H (70-99) mg/dl ALT (12-78) U/L Alkaline Phosphatase (45-117) U/L CK/CKMB % Calc 11.1 H (0-3.0) Total Protein (6.4-8.2) gm/dl Albumin (3.4-5.0) gm/dl Urine Glucose (UA) (Negative) Urine Ketones (Negative) Urine Nitrite (Negative) Urine WBC (Auto) (0-5) /hpf U Epithel Cells (Auto) (0-5) /lpf Urine Bacteria (Auto) (Negative) Urine Yeast (None Prsent) Salicylates 1.9 L (2.8-20) mg/dl Acetaminophen 3 L (10-30) ug/ml 07/16/21 Range/Units 17:55 RBC (4.2-5.4) M/uL Hgb (12.0-16.0) g/dL POC Hgb (12.0-16.0) g/dl Hct (37-47) % POC Hct (37-47) % MCHC (32-36) g/dL RDW Std Deviation (36.4-46.3) fL RDW Coeff of Dorcas (11.5-14.5) % Plt Count (130-400) K/uL King # (Auto) (0.11-0.59) K/uL Immature Gran # (Auto) (0.00-0.02) K/uL VBG pH (7.36-7.41) VBG pCO2 (38-50) mmHg POC Potassium (3.3-5.0) mmol/L Potassium (3.5-5.1) mmol/L Chloride (98-107) mmol/L POC Anion Gap (16-25) mmol/L POC BUN (7-18) mg/dl BUN/Creatinine Ratio (10-20) Glucose (70-99) mg/dl POC Glucose (other) (70-99) mg/dl ALT (12-78) U/L Alkaline Phosphatase (45-117) U/L CK/CKMB % Calc (0-3.0) Total Protein (6.4-8.2) gm/dl Albumin (3.4-5.0) gm/dl Urine Glucose (UA) 3+ H (Negative) Urine Ketones Trace H (Negative) Urine Nitrite Positive A (Negative) Urine WBC (Auto) 10-30 H (0-5) /hpf U Epithel Cells (Auto) >30 H (0-5) /lpf Urine Bacteria (Auto) 1+ H (Negative) Urine Yeast Budding A (None Prsent) Salicylates (2.8-20) mg/dl Acetaminophen (10-30) ug/ml Diagnostic Findings Chest X-Ray 07/16/21 13:25 XR chest 1V portable HISTORY: Atypical Chest Pain COMPARISON: Chest 05/31/2021. FINDINGS: Mild emphysema. There is mild diffuse interstitial thickening. This is likely chronic. This is most pronounced within the left lung base. There is stable blunting left lateral costophrenic sulcus. There are calcified granulomas within the right lung base. The heart is normal in size. No pneumothorax. IMPRESSION: 1. No change in the mild emphysema. 2. Mild diffuse interstitial thickening which is likely chronic. 3. Stable blunting within the left lateral costophrenic sulcus which could represent a trace pleural effusion. This will be better appreciated on the same day abdomen and pelvis CT. ACT 112: Negative or not required by law. Electronically signed by: Wicho Gutierrez M.D. 07/16/2021 1:53 PM Abdomen/Pelvis CT 07/16/21 13:30 CT SCAN OF THE ABDOMEN AND PELVIS WITH IV CONTRAST CLINICAL HISTORY: Generalized abdominal pain. Obtunded. COMPARISON STUDY: Abdominal CT dated 05/30/2021. TECHNIQUE: Following the IV administration of 120 cc of Optiray 320, CT scan of the abdomen and pelvis is performed from the lung bases to the proximal femora. Images are reviewed in the axial, sagittal, and coronal planes. IV contrast was administered without complication. A dose lowering technique was utilized adhering to the principles of ALARA. The examination is degraded by motion artifact, as well as by streak artifact from the arms which could not be elevated above the abdomen or pelvis. FINDINGS: Lung bases: The heart is normal in size and without pericardial effusion. The coronary arteries are densely calcified. A tiny hiatal hernia is noted. Advanced and edematous change is seen at the lung bases. There is bibasilar scarring and/atelectasis. Scattered calcified granulomas are observed. Liver: The contrast-enhanced liver is normal in size, contour, and attenuation. There is minimal central intrahepatic biliary ductal dilatation. The hepatic veins and portal veins are patent. Gallbladder: Surgically absent noting clips in the gallbladder fossa. Spleen: Normal in size and attenuation. There are numerous calcified splenic granulomas. Pancreas: Prominence of the pancreatic duct is similar to previous. The pancreas is moderately atrophic and otherwise grossly unremarkable. Adrenal glands: Bilateral adrenal nodules are similar to previous. Kidneys: The contrast enhanced kidneys demonstrate mild cortical atrophy and are without hydronephrosis. The kidneys enhance symmetrically. Abdominal vasculature: There is advanced atherosclerotic calcification of the abdominal aorta. An infrarenal abdominal aortic aneurysm measures 3.5 x 3.7 cm (AP x transverse). The aneurysm sac extends 5.4 cm in craniocaudal length. Bowel: There is mild to moderate colonic diverticulosis without CT evidence of acute diverticulitis. No bowel obstruction is seen. Submucosal fat deposition is noted throughout the right colon. The appendix is not visualized. Peritoneum: There is no intraperitoneal free air or abdominal ascites. There is a fat-containing umbilical hernia. Lymphadenopathy: None. Pelvic viscera: Small foci of gas are noted within the bladder lumen. The bl adder is distended but otherwise normal in appearance. The uterus is surgically absent. No adnexal lesion is seen. Skeletal structures: The skeletal structures are osteopenic. The lumbosacral spine, bony pelvis, and proximal femora appear intact. There is moderate lumbosacral spondylosis. No lytic or blastic lesions are seen. A 2.5 cm benign- appearing sclerotic lesion is again seen in the right femoral neck, possibly representing an enchondroma. 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 IMPRESSION: 1. Streak and motion compromised examination. 2. No acute infectious or inflammatory findings are seen in the abdomen or pelvis. 3. A 3.5 x 3.7 cm infrarenal abdominal aneurysm is unchanged. 4. Advanced emphysema. 5. Nonspecific gas within the bladder lumen may be related to instrumentation. Correlation with clinical findings and urinalysis will be required. 6. Additional findings as above. ACT 112: Negative or not required by law. Electronically signed by: Koby Wallace M.D. 07/16/2021 6:[address] 07/16/21 13:30 CT SCAN OF THE BRAIN WITHOUT IV CONTRAST CLINICAL HISTORY: Change in mental status. Obtundation. COMPARISON STUDY: CT of the brain dated 05/30/2021. TECHNIQUE: Unenhanced axial CT scan of the brain is performed from the vertex to the skull base. A dose lowering technique was utilized adhering to the principles of ALARA. The examination is compromised by motion artifact. The patient was scanned 3 times in an effort to improve image quality. CT DOSE: 2677.19 mGy.cm FINDINGS: Brain parenchyma: There are age-related involutional changes noting mild subcortical and periventricular microangiopathic change. There is no hemorrhage, mass effect, or evidence of acute territorial ischemia by CT criteria. Mineralization is noted in the basal ganglia. Cooper-white matter differentiation is preserved. No extra-axial fluid collection is seen. Ventricles, sulci, cisterns: Prominent secondary to involutional change. Intracranial vasculature: There is atherosclerotic calcification of the cavernous carotid and vertebral arteries. Calvarium: Unremarkable. Sinuses and mastoids: The paranasal sinuses are clear. The mastoid air cells are well pneumatized. Orbits: The bony orbits are grossly intact. There are bilateral ocular lens implants. IMPRESSION: There is no hemorrhage, mass effect, or evidence of acute territorial ischemia by CT criteria noting a significantly motion compromised examination. ACT 112: Negative or not required by law. Electronically signed by: Koby Wallace M.D. 07/16/2021 5:53 PM Chest CTA 07/16/21 15:09 CHEST CTA for PULMONARY ARTERIES CT DOSE: HISTORY: Shortness of breath. Evaluate for pulmonary embolus. TECHNIQUE: Multiaxial CT images of the chest were performed following the intravenous administration of contrast to evaluate the pulmonary arteries. Maximal intensity projection images were also obtained. A dose lowering technique was utilized adhering to the principles of ALARA. COMPARISON STUDY: Chest CT 05/30/2021. FINDINGS: Moderate atherosclerotic plaque within the normal caliber thoracic aorta. No evidence for an aortic dissection. The heart is normal in size. No pleural or pericardial effusions. Nondiagnostic evaluation of the majority of the bilateral lower lobe segmental and subsegmental pulmonary arteries. However, the remaining pulmonary arteries show no filling defects to suggest a pulmonary embolus. Please refer to the same day abdomen and pelvis is 2 for further ev aluation of the abdominal structures. Normal esophagus. No acute fractures within the visualized osseous structures. There are old, healed right anterior rib fractures. Calcified subcarinal/right hilar lymph nodes. No change in the prominent mediastinal lymph nodes with the dominant precarinal lymph node measuring 11 mm in short axis diameter. No hilar lymphadenopathy. Moderate emphysema. No pneumothorax. Linear focus of consolidation within the left upper lobe medially which is new from the prior study. The 1.4 cm groundglass density within the right lung apex posteriorly on image 268. This has slightly progressed. Linear density within the right middle lobe favors subsegmental atelectasis are scarring. The punctate calcified granuloma within the right lower lobe. Small amount of mucoid material within the left mainstem bronchus. IMPRESSION: 1. No evidence for pulmonary embolus with limitations as described above. 2. Linear area of consolidation within the left upper lobe medially. This may represent atelectasis or pneumonia. 3. Moderate emphysema. 4. A 1.4 cm groundglass density within the right lung apex. This has slightly progressed in the interval. Therefore, follow-up chest CT and 3 6 months is recommended to ensure stability/resolution. ACT 112: Positive. There are findings on this exam that require communication between the performing entity and the patient following Patient Test Result Information Act ([place] Act 112) guidelines. Electronically signed by: Wicho Gutierrez M.D. 07/16/2021 5:57 PM Medications Administered Home Medications albuterol sulfate 90 mcg/actuation aerosol inhaler 2 puff INHALATION Q6 PRN 08/28/20 [History Confirmed 05/30/21] aspirin 81 mg tablet,delayed release (Aspirin Low Dose) 81 mg PO DAILY 08/28/20 [History Confirmed 05/30/21] atorvastatin 40 mg tablet 40 mg PO DAILY 08/28/20 [History Confirmed 05/30/21] budesonide 0.5 mg/2 mL suspension for nebulization 0.5 mg INHALATION BID 08/28/20 [History Confirmed 05/30/21] carvedilol 12.5 mg tablet 12.5 mg PO BID 08/28/20 [History Confirmed 05/30/21] diltiazem HCl 120 mg capsule,extended release 24 hr (Cartia XT) 120 mg PO DAILY 08/28/20 [History Confirmed 05/30/21] empagliflozin 10 mg tablet (Jardiance) 10 mg PO DAILY 08/28/20 [History Confirmed 05/30/21] losartan 50 mg tablet 50 mg PO DAILY 08/28/20 [History Confirmed 05/30/21] metformin 1,000 mg tablet 1,000 mg PO BID 08/28/20 [History Confirmed 05/30/21] ipratropium 0.5 mg-albuterol 3 mg (2.5 mg base)/3 mL nebulization soln 3 ml INHALATION QID PRN 09/25/20 [History Confirmed 05/30/21] ondansetron HCl 4 mg tablet (Zofran) 4 mg PO Q6H PRN #6 tab 05/13/21 [Rx Confirmed 05/30/21] oxycodone 5 mg tablet 5 mg PO TID PRN 05/13/21 [History Confirmed 05/30/21] polyethylene glycol 3350 17 gram oral powder packet (Miralax) 17 g PO BID PRN 05/13/21 [History Confirmed 05/30/21] blood sugar diagnostic ([employer] Verio test strips) #50 ea 06/02/21 [Rx] blood-glucose meter ([employer] Verio Meter) #1 ea 06/02/21 [Rx] lancets 33 gauge ([employer] Delica Lancets) #100 ea 06/02/21 [Rx] Active Medications Naloxone HCl 5 mg/ Sodium (Chloride) 100 mls @ 2.6 mls/hr IV .Q24H KALEY; Protocol Stop: 08/15/21 14:29 Last Admin: 07/16/21 14:56 Dose: 0.13 mg/hr, 2.6 mls/hr Documented by: Naloxone HCl 5 mg/ Sodium (Chloride) 100 mls @ 2.6 mls/hr IV .Q24H KALEY; Protocol Stop: 08/15/21 14:29 Last Admin: 07/16/21 14:56 Dose: 0.13 mg/hr, 2.6 mls/hr Documented by: [id number] Cosigned by: [id number] Discontinued Medications Albuterol (Albut/Ipratrop 3mg/0.5mg Neb 3 Ml Vial) 12 ml NEB ONE ONE Stop: 07/16/21 13:27 Last Admin: 07/16/21 13:42 Dose: 12 ml Documented by: [id number] Dextrose (Dextrose 50% 50 Ml Syringe) 50 ml IV NOW ONE Stop: 07/16/21 16:29 Last Admin: 07/16/21 16:51 Dose: 50 ml Documented by: [id number] Sodium Chloride (Nss 1000ml) 500 mls @ 999 mls/hr IV .Q31M ONE Stop: 07/16/21 15:33 Last Admin: 07/16/21 18:19 Dose: 999 mls/hr Documented by: [id number] Calcium Gluconate () 1,000 mg in 60 mls @ 240 mls/hr IV NOW STA Stop: 07/16/21 16:42 Last Infusion: 07/16/21 17:26 Dose: 0 mls/hr Documented by: [id number] Admin: 07/16/21 16:59 Dose: 240 mls/hr Documented by: [id number] Insulin Human Regular (Novolin-R Insulin Per Unit Charge) 10 units IV NOW STA Stop: 07/16/21 16:29 Last Admin: 07/16/21 16:48 Dose: 10 units Documented by: [id number] Cosigned by: [id number] Ioversol (Optiray 320 125ml) 120 ml IV ONCE ONE Stop: 07/16/21 17:30 Last Admin: 07/16/21 17:29 Dose: 120 ml Documented by: [id number] Methylprednisolone (Methylprednisolone 125 Mg/2 Ml Vial) 125 mg IV NOW STA Stop: 07/16/21 13:27 Last Admin: 07/16/21 14:13 Dose: 125 mg Documented by: [id number] Naloxone HCl (Naloxone Hcl 0.4 Mg/1 Ml Vial/Carp) 0.2 mg IV NOW STA Stop: 07/16/21 13:26 Last Admin: 07/16/21 14:13 Dose: 0.2 mg Documented by: [id number] Naloxone HCl (Naloxone Hcl 0.4 Mg/1 Ml Vial/Carp) 0.1 mg IV .15 MINUTES AFTER.. ONE Stop: 07/16/21 14:42 Last Admin: 07/16/21 15:12 Dose: 0.1 mg Documented by: [id number] Sodium Bicarbonate (Sodium Bicarb 8.4% Inj 50 Meq/50 Ml Syr) 50 meq IV NOW STA Stop: 07/16/21 16:29 Last Admin: 07/16/21 16:54 Dose: 50 meq Documented by: [id number] ECG Additional Comments: Atrial flutter with variable A-V block with premature ventricular or aberrantly conducted complexes Low voltage QRS Possible Inferior infarct , age undetermined Cannot rule out Anterior infarct , age undetermined Abnormal ECG When compared with ECG of 31-MAY-2021 21:48, Significant changes have occurred Code Status & VTE Plan Code Status CODE: FULL VTE: SCDs, Lovenox 40mg sub q daily VTE Prophylaxis Plan VTE Prophylaxis will be ordered: Yes Supervising Physician Co-Signing Physician Notes I supervised BRET Kent on this admission. I interviewed and examined the patient independently of him. The plan is as written in his note except for any following changes/exceptions: None 71yo F w/ hx of prior episodes of encephalopathy who presents for the same. Initially thought to be narcotic-related, but less likely given no great im provement with Narcan. COPD exacerbation seems less likely given no wheezing on exam. Possible other intoxications also seem unlikely. Presently treating for possible UTI. Consider other factors such as CVA if no improvement in a day or so. PG Care Time/CCT Total # of Minutes Spent Total Time Spent with Patient: Total time spent is greater than 50% in coordination of care (as documented) at patient's floor/unit and/or counseling patient: Coding Level of Care Code 07685 Initial Inpt Care Lvl 3 Diagnoses Acidosis E87.2 UTI (urinary tract infection) N39.0 Sepsis A41.9 Abnormal chest xray R93.89 Diabetes type 2, uncontrolled E11.65 COPD (chronic obstructive pulmonary disease) J44.9 AAA (abdominal aortic aneurysm) I71.4 Respiratory failure with hypercapnia J96.92 Encephalopathy G93.40 Hyperkalemia E87.5
--- NOTE | 2021-07-16 20:20 | Emergency Department Note ---
Impression & Plan Hypercarbia, Acute on chronic respiratory failure with hypoxemia, Diabetes type 2, uncontrolled, Acidosis ED Provider Note NAME: DANIELLA FLANNERY AGE: 71 SEX: F : 1950 ARRIVES VIA: Ambulance INFORMANT: Patient, ED PROVIDER(S): Subhash Buitrago MD CHIEF COMPLAINT: obtunded HPI: This 71-year-old female sent in by the patient's over concerns that the patient fell asleep at the dinner table. The patient's reports that the patient had not been sleeping for the past 2 nights. He reports he had difficulty waking her this morning. He does not believe that the patient took an overdose of her medications as her medicines are laid out by the home health nurse. The patient herself is arousable to painful stimuli but immediately falls back to sleep. ROS: See above HPI for pertinent positives & negatives. A total of 10 systems reviewed and were otherwise negative. PAST MEDICAL HISTORY: See Below PAST SURGICAL HISTORY: See Below FAMILY HISTORY: See Below SOCIAL HISTORY: See Below HOME MEDICATIONS: See Below ALLERGIES: See Below VITALS: See Below PHYSICAL EXAMINATION: VITAL SIGNS - Vital signs and nursing notes were reviewed. GENERAL - 71-year-old female appearing stated age who is in no acute distress. sleeping, arouseable to painful stimuli SKIN - Without rashes. HEAD - NC/AT. EYES - PERRL with EOMI bilaterally. Sclera anicteric. Palpebral conjunctiva pink and moist with no injection noted. EARS - No deformities of external structures noted on gross examination bilaterally. NOSE - Midline and without cyanosis. No epistaxis or purulent drainage noted. Septum midline without deviation or septal hematoma noted. MOUTH/OROPHARYNX - Without perioral cyanosis. Buccal mucosa pink and moist and without leukoplakia. Tongue midline with equal elevation of palate bilaterally. No tonsillar hypertrophy, erythema, or exudates noted. NECK - Neck with FROM. Supple to palpation. No nuchal rigidity. LUNGS - Chest wall symmetric without accessory muscle use, intercostals retractions, or central cyanosis. Normal vesicular breath sounds CTA B/L. No wheezes, rales, or rhonchi appreciated. CARDIAC - RRR with S1/S2. No murmur, rubs, or gallops appreciated. ABDOMEN - Abdominal contour without pulsations or visible masses. BS normoacti ve all four quadrants. No tenderness, palpable masses, hepatosplenomegaly, or ascites noted. EXTREMITIES - No clubbing or peripheral cyanosis. No pretibial edema present. +3/5 radial, posterior tibial, and dorsalis pedis pulses palpated throughout. +5/5 strength noted in UE/LE bilaterally. MEDICAL DECISION MAKING: Patient was seen and evaluated as above in room B7. Review was performed of n ursing notes and vital signs. I did review pertinent previous visits and patient history. After obtaining a thorough history and physical examination the above work up was performed. This 71-year-old female who presents emergency department complaining of obtundation. The patient was given Narcan with immediate improvement in her symptoms for this reason the patient was then placed on a Narcan drip. She was found to be hyperkalemic and her CO2 on her blood gas was grossly elevated. For this reason I placed the patient on BiPAP. She was given an hour-long breathing treatment started on Solu-Medrol started on calcium gluconate dextrose insulin as well as bicarb. CT the head was interpreted by me does not show any acute process CT of the chest and abdomen pelvis also do not show any acute process. I did discuss the case with the hospitalist service who did agree to meet the patient. Patient was started on broad-spectrum antibiotics. An order was placed for continuous cardiac monitoring. The monitor shows a rate of 103 with Normal SInus rhythm. The patient was evaluated during a period of high volume and high acuity during the global COVID-19 pandemic, and that diagnosis was suspected/considered upon their initial presentation. Their evaluation, treatment and testing was consistent with current guidelines for patients who present with complaints or symptoms that may be related to COVID-19. Patient was seen while provider was wearing PPE. Triage Nursing notes reviewed. Prior medical records reviewed Vital Signs: reviewed and remarkable for no significant abnormalities Differential diagnosis: Sepsis, UTI, pneumonia, metabolic, electrolyte abnormalities, cardiac sources, intracerebral event, toxicologic, neurologic, as well as other pathologies. ER treatment provided: See below Diagnostics interpreted by me: ECG: Atrial flutter with a AV block with premature ventricular complex with peaked T waves. EKG is compared 05/31/2021 significant changes have occurred ventricular rate is 84 Laboratory studies: As stated above and show below. Imaging studies: See below Consultation(s): none ED COURSE: Procedures: none PDMP:reviewed and no issues Critical Care: None Past Med/Surg History Medical History (Updated 07/16/21 @ 20:20 by Subhash Buitrago MD) AAA (abdominal aortic aneurysm) Acute hypotension Acute UTI Chronic low back pain COPD exacerbation Diabetes type 2, uncontrolled Diaphragmatic hernia (10/31/11) History of knee replacement Left peroneal nerve palsy Syncope Surgical History H/O Achilles tendon repair (~2007) H/O: hysterectomy History of appendectomy History of bilateral oophorectomies History of lithotripsy (~2007) Hx of cholecystectomy Family History Other Family history non-contributory Social History Smoking Status: Unknown if ever smoked Tobacco Type: Cigarettes Second Hand Exposure: No; Hx Alcohol Use: No Hx Substance Use: No Preferred Language: [place] Verdean Communication Ability: Unable First Helper Required: No Beliefs That Will Affect Care: None Current Living Situation: Spouse Feels Safe at Home: Yes Assistive Devices: Oxygen - Continuous Allergies Allergies Allergy/AdvReac Type Severity Reaction Status Date / Time diflunisal Allergy Unknown HEART RACES Verified 05/30/21 15:33 Home Meds Home Medications Medication Instructions Recorded Confirmed albuterol sulfate 90 mcg/actuation 2 puff INHALATION Q6 PRN 08/28/20 05/30/21 aerosol inhaler aspirin 81 mg tablet,delayed 81 mg PO DAILY 08/28/20 05/30/21 release (Aspirin Low Dose) atorvastatin 40 mg tablet 40 mg PO DAILY 08/28/20 05/30/21 budesonide 0.5 mg/2 mL suspension 0.5 mg INHALATION BID 08/28/20 05/30/21 for nebulization carvedilol 12.5 mg tablet 12.5 mg PO BID 08/28/20 05/30/21 diltiazem HCl 120 mg 120 mg PO DAILY 08/28/20 05/30/21 capsule,extended release 24 hr (Cartia XT) empagliflozin 10 mg tablet 10 mg PO DAILY 08/28/20 05/30/21 (Jardiance) losartan 50 mg tablet 50 mg PO DAILY 08/28/20 05/30/21 metformin 1,000 mg tablet 1,000 mg PO BID 08/28/20 05/30/21 ipratropium 0.5 mg-albuterol 3 mg 3 ml INHALATION QID PRN 09/25/20 05/30/21 (2.5 mg base)/3 mL nebulization soln oxycodone 5 mg tablet 5 mg PO TID PRN 05/13/21 05/30/21 polyethylene glycol 3350 17 gram 17 g PO BID PRN 05/13/21 05/30/21 oral powder packet (Miralax) Previous Rx's Medication Instructions Recorded ondansetron HCl 4 mg tablet 4 mg PO Q6H PRN #6 tab 05/13/21 (Zofran) blood sugar diagnostic ([employer] #50 ea 06/02/21 Verio test strips) blood-glucose meter ([employer] #1 ea 06/02/21 Verio Meter) lancets 33 gauge ([employer] Delica #100 ea 06/02/21 Lancets) Results & Data (ED) Vital Signs Vital Signs - 24 hr 07/16/21 13:18 07/16/21 13:19 07/16/21 13:26 Temperature 36.9 C Temperature Source Oral Pulse Rate 85 88 Pulse Rate [Right Finger] Pulse Rate from SpO2 Sensor 85 Pulse Rhythm Regular Pulse Strength Normal Respiratory Rate 26 H 24 Respiratory Effort / Characteristics Spontaneous Labored Respiratory Pattern Blood Pressure 162/75 H 162/75 H Blood Pressure [Left Arm] Blood Pressure Mean 104 104 Blood Pressure Mean [Left Arm] Blood Pressure Position Sitting Blood Pressure Position [Left Arm] Pulse Oximetry 100 100 100 Oxygen Delivery Method Nasal Cannula Nasal Cannula Nasal Cannula Oxygen Flow Rate 3 3 3 Fraction of Inspired Oxygen Sepsis Recent Fever Within 48 Hours No Sepsis New/Unexplained Change in Mental Status No Sepsis Action Taken by Nursing No Action Required 07/16/21 13:27 07/16/21 13:30 07/16/21 13:42 Temperature Temperature Source Pulse Rate 82 84 Pulse Rate [Right Finger] 84 Pulse Rate from SpO2 Sensor 84 Pulse Rhythm Regular Pulse Strength Respiratory Rate 24 23 22 Respiratory Effort / Characteristics Spontaneous Respiratory Pattern Blood Pressure 140/78 Blood Pressure [Left Arm] Blood Pressure Mean 98 Blood Pressure Mean [Left Arm] Blood Pressure Position Blood Pressure Position [Left Arm] Pulse Oximetry 100 100 100 Oxygen Delivery Method Nasal Cannula Nasal Cannula Nasal Cannula Oxygen Flow Rate 3 3 3 Fraction of Inspired Oxygen Sepsis Recent Fever Within 48 Hours Sepsis New/Unexplained Change in Mental Status Sepsis Action Taken by Nursing 07/16/21 14:00 07/16/21 14:30 07/16/21 15:00 Temperature Temperature Source Pulse Rate 85 91 H 87 Pulse Rate [Right Finger] Pulse Rate from SpO2 Sensor 85 90 88 Pulse Rhythm Pulse Strength Respiratory Rate 23 27 H 25 H Respiratory Effort / Characteristics Spontaneous Respiratory Pattern Tachypnea Blood Pressure 157/74 H 183/92 H 143/100 H Blood Pressure [Left Arm] Blood Pressure Mean 101 122 114 Blood Pressure Mean [Left Arm] Blood Pressure Position Blood Pressure Position [Left Arm] Pulse Oximetry 100 93 98 Oxygen Delivery Method Nasal Cannula BiPAP BiPAP Oxygen Flow Rate 3 Fraction of Inspired Oxygen 40 Sepsis Recent Fever Within 48 Hours Sepsis New/Unexplained Change in Mental Status Sepsis Action Taken by Nursing 07/16/21 15:15 07/16/21 15:17 07/16/21 15:30 Temperature Temperature Source Pulse Rate 88 86 Pulse Rate [Right Finger] 95 H Pulse Rate from SpO2 Sensor 88 85 Pulse Rhythm Pulse Strength Respiratory Rate 25 H 25 H 25 H Respiratory Effort / Characteristics Respiratory Pattern Blood Pressure 140/103 H 147/51 H Blood Pressure [Left Arm] 140/103 H Blood Pressure Mean 115 83 Blood Pressure Mean [Left Arm] 115 Blood Pressure Position Blood Pressure Position [Left Arm] Lying Pulse Oximetry 96 96 97 Oxygen Delivery Method BiPAP BiPAP BiPAP Oxygen Flow Rate Fraction of Inspired Oxygen Sepsis Recent Fever Within 48 Hours Sepsis New/Unexplained Change in Mental Status Sepsis Action Taken by Nursing 07/16/21 16:00 07/16/21 16:30 07/16/21 17:00 Temperature Temperature Source Pulse Rate 91 H 91 H 108 H Pulse Rate [Right Finger] Pulse Rate from SpO2 Sensor 91 H 92 H 108 H Pulse Rhythm Pulse Strength Respiratory Rate 26 H 23 27 H Respiratory Effort / Characteristics Respiratory Pattern Blood Pressure 149/72 H 151/78 H 162/64 H Blood Pressure [Left Arm] Blood Pressure Mean 97 102 96 Blood Pressure Mean [Left Arm] Blood Pressure Position Blood Pressure Position [Left Arm] Pulse Oximetry 97 97 96 Oxygen Delivery Method BiPAP BiPAP BiPAP Oxygen Flow Rate Fraction of Inspired Oxygen Sepsis Recent Fever Within 48 Hours Sepsis New/Unexplained Change in Mental Status Sepsis Action Taken by Nursing 07/16/21 17:50 07/16/21 18:00 07/16/21 18:30 Temperature Temperature Source Pulse Rate 99 H 95 H 92 H Pulse Rate [Right Finger] Pulse Rate from SpO2 Sensor 100 H 95 H 93 H Pulse Rhythm Pulse Strength Respiratory Rate 26 H 28 H 25 H Respiratory Effort / Characteristics Respiratory Pattern Blood Pressure 134/64 145/75 H Blood Pressure [Left Arm] Blood Pressure Mean 87 98 Blood Pressure Mean [Left Arm] Blood Pressure Position Blood Pressure Position [Left Arm] Pulse Oximetry 97 98 98 Oxygen Delivery Method BiPAP BiPAP BiPAP Oxygen Flow Rate Fraction of Inspired Oxygen Sepsis Recent Fever Within 48 Hours Sepsis New/Unexplained Change in Mental Status Sepsis Action Taken by Nursing 07/16/21 19:00 07/16/21 19:30 07/16/21 20:00 Temperature Temperature Source Pulse Rate 99 H 103 H 103 H Pulse Rate [Right Finger] Pulse Rate from SpO2 Sensor 99 H 103 H 103 H Pulse Rhythm Pulse Strength Respiratory Rate 18 26 H 26 H Respiratory Effort / Characteristics Respiratory Pattern Blood Pressure 138/68 129/65 117/61 Blood Pressure [Left Arm] Blood Pressure Mean 91 86 79 Blood Pressure Mean [Left Arm] Blood Pressure Position Blood Pressure Position [Left Arm] Pulse Oximetry 99 98 98 Oxygen Delivery Method BiPAP Oxygen Flow Rate Fraction of Inspired Oxygen Sepsis Recent Fever Within 48 Hours Sepsis New/Unexplained Change in Mental Status Sepsis Action Taken by [facility] Medications Current Medication List: was personally reviewed by me Laboratory Data Attestation: I reviewed the patient's lab results. Result diagrams: 07/16/21 13:58 07/16/21 13:58 Lab Results 07/16/21 07/16/21 07/16/21 Range/Units 13:58 13:58 13:58 WBC 8.92 (4.8-10.8) K/uL RBC 4.00 L (4.2-5.4) M/uL Hgb 10.2 L (12.0-16.0) g/dL POC Hgb (12.0-16.0) g/dl Hct 34.7 L (37-47) % POC Hct (37-47) % MCV 86.8 (80-100) fL MCH 25.5 (25-34) pg MCHC 29.4 L (32-36) g/dL RDW Std Deviation 62.9 H (36.4-46.3) fL RDW Coeff of Dorcas 19.8 H (11.5-14.5) % Plt Count 640 H (130-400) K/uL MPV 9.0 (7.4-10.4) fL Immature Gran % (Auto) 1.0 % Neut % (Auto) 63.2 % Lymph % (Auto) 24.8 % [place] % (Auto) 8.1 % Eos % (Auto) 2.2 % Baso % (Auto) 0.7 % Neut # (Auto) 5.64 (1.4-6.5) K/uL Lymph # (Auto) 2.21 (1.2-3.4) K/uL [place] # (Auto) 0.72 H (0.11-0.59) K/uL Eos # (Auto) 0.20 (0-0.5) K/uL Baso # (Auto) 0.06 (0-0.2) K/uL Immature Gran # (Auto) 0.09 H (0.00-0.02) K/uL APTT 26.8 (21.0-31.0) Seconds PTT Ratio 1.0 ABG pH ABG pCO2 ABG pO2 ABG HCO3 ABG O2 Saturation ABG Base Excess Presley Test VBG pH (7.36-7.41) VBG pCO2 (38-50) mmHg VBG pO2 mmHg VBG HCO3 mmol/L VBG O2 Saturation % VBG Base Excess mEq/L Barometric Pressure mm/Hg Oxygen Given POC Sodium (135-144) mmol/L Sodium 139 (136-145) mmol/L POC Potassium (3.3-5.0) mmol/L Potassium 6.2 H* (3.5-5.1) mmol/L POC Chloride (101-112) mmol/L Chloride 109 H (98-107) mmol/L Carbon Dioxide 24 (21-32) mmol/L POC Total CO2 (24-31) mmol/L Anion Gap 6.0 (3-11) POC Anion Gap (16-25) mmol/L POC BUN (7-18) mg/dl BUN 16 (7-18) mg/dl Creatinine 0.65 (0.6-1.2) mg/dl POC Creatinine (0.6-1.3) mg/dl Est Cr Clr Drug Dosing 73.8 ml/min Est GFR ( Amer) 105.0 ml/min Est GFR (Non-Af Amer) 90.6 ml/min BUN/Creatinine Ratio 24.6 H (10-20) Glucose 133 H (70-99) mg/dl POC Glucose (other) (70-99) mg/dl Calcium 8.5 (8.5-10.1) mg/dl POC Ioniz Calcium Benny (1.12-1.32) mmol/l Total Bilirubin 0.4 (0.2-1) mg/dl AST 15 (15-37) U/L ALT 127 H (12-78) U/L Alkaline Phosphatase 136 H (45-117) U/L Total Creatine Kinase (26-192) U/L CK-MB (CK-2) (0.5-3.6) ng/ml CK/CKMB % Calc (0-3.0) Troponin I < 0.015 (0-0.045) ng/ml C-Reactive Protein (0-0.29) mg/dl Total Protein 6.3 L (6.4-8.2) gm/dl Albumin 2.9 L (3.4-5.0) gm/dl Globulin 3.4 (2.5-4.0) gm/dl Albumin/Globulin Ratio 0.9 (0.9-2) Lipase 153 (73-393) U/L Procalcitonin (0-0.5) ng/ml Urine Color Urine Appearance (Clear) Urine pH (4.5-7.5) Ur Specific [place] (1.000-1.030) Urine Protein (Negative) Urine Glucose (UA) (Negative) Urine Ketones (Negative) Urine Blood (Negative) Urine Nitrite (Negative) Urine Bilirubin (Negative) Urine Urobilinogen (Negative) Ur Leukocyte Esterase (Negative) Urine WBC (Auto) (0-5) /hpf Urine RBC (Auto) (0-4) /hpf U Hyaline Cast (Auto) (0-5) /lpf U Epithel Cells (Auto) (0-5) /lpf Urine Bacteria (Auto) (Negative) Urine Yeast (None Prsent) Salicylates (2.8-20) mg/dl Urine Opiates Screen (Neg) Ur Methadone, Qual (Neg) Acetaminophen (10-30) ug/ml Urine Barbiturates (Neg) Ur Phencyclidine (PCP) (Neg) U Amphetamin/Meth Scrn (Neg) MDMA (Ecstasy) Screen (Neg) U Benzodiazepines Scrn (Neg) Ur Cocaine Metabolite (Neg) U Marijuana (THC) Screen (Neg) Ethyl Alcohol mg/dL (0-3) mg/dl COVID-19 Eval Order SARS-CoV-2 (PCR) (Negative) 07/16/21 07/16/21 07/16/21 Range/Units 13:58 13:58 13:58 WBC (4.8-10.8) K/uL RBC (4.2-5.4) M/uL Hgb (12.0-16.0) g/dL POC Hgb (12.0-16.0) g/dl Hct (37-47) % POC Hct (37-47) % MCV (80-100) fL MCH (25-34) pg MCHC (32-36) g/dL RDW Std Deviation (36.4-46.3) fL RDW Coeff of Dorcas (11.5-14.5) % Plt Count (130-400) K/uL MPV (7.4-10.4) fL Immature Gran % (Auto) % Neut % (Auto) % Lymph % (Auto) % [place] % (Auto) % Eos % (Auto) % Baso % (Auto) % Neut # (Auto) (1.4-6.5) K/uL Lymph # (Auto) (1.2-3.4) K/uL [place] # (Auto) (0.11-0.59) K/uL Eos # (Auto) (0-0.5) K/uL Baso # (Auto) (0-0.2) K/uL Immature Gran # (Auto) (0.00-0.02) K/uL APTT (21.0-31.0) Seconds PTT Ratio ABG pH ABG pCO2 ABG pO2 ABG HCO3 ABG O2 Saturation ABG Base Excess Presley Test VBG pH 7.16 L (7.36-7.41) VBG pCO2 73 H (38-50) mmHg VBG pO2 42 mmHg VBG HCO3 25 mmol/L VBG O2 Saturation 66.9 % VBG Base Excess -4.1 mEq/L Barometric Pressure 729.2 mm/Hg Oxygen Given POC Sodium (135-144) mmol/L Sodium (136-145) mmol/L POC Potassium (3.3-5.0) mmol/L Potassium (3.5-5.1) mmol/L POC Chloride (101-112) mmol/L Chloride (98-107) mmol/L Carbon Dioxide (21-32) mmol/L POC Total CO2 (24-31) mmol/L Anion Gap (3-11) POC Anion Gap (16-25) mmol/L POC BUN (7-18) mg/dl BUN (7-18) mg/dl Creatinine (0.6-1.2) mg/dl POC Creatinine (0.6-1.3) mg/dl Est Cr Clr Drug Dosing ml/min Est GFR ( Amer) ml/min Est GFR (Non-Af Amer) ml/min BUN/Creatinine Ratio (10-20) Glucose (70-99) mg/dl POC Glucose (other) (70-99) mg/dl Calcium (8.5-10.1) mg/dl POC Ioniz Calcium Benny (1.12-1.32) mmol/l Total Bilirubin (0.2-1) mg/dl AST (15-37) U/L ALT (12-78) U/L Alkaline Phosphatase (45-117) U/L Total Creatine Kinase 28 (26-192) U/L CK-MB (CK-2) 3.1 (0.5-3.6) ng/ml CK/CKMB % Calc 11.1 H (0-3.0) Troponin I (0-0.045) ng/ml C-Reactive Protein 0.39 H (0-0.29) mg/dl Total Protein (6.4-8.2) gm/dl Albumin (3.4-5.0) gm/dl Globulin (2.5-4.0) gm/dl Albumin/Globulin Ratio (0.9-2) Lipase (73-393) U/L Procalcitonin (0-0.5) ng/ml Urine Color Urine Appearance (Clear) Urine pH (4.5-7.5) Ur Specific [place] (1.000-1.030) Urine Protein (Negative) Urine Glucose (UA) (Negative) Urine Ketones (Negative) Urine Blood (Negative) Urine Nitrite (Negative) Urine Bilirubin (Negative) Urine Urobilinogen (Negative) Ur Leukocyte Esterase (Negative) Urine WBC (Auto) (0-5) /hpf Urine RBC (Auto) (0-4) /hpf U Hyaline Cast (Auto) (0-5) /lpf U Epithel Cells (Auto) (0-5) /lpf Urine Bacteria (Auto) (Negative) Urine Yeast (None Prsent) Salicylates (2.8-20) mg/dl Urine Opiates Screen (Neg) Ur Methadone, Qual (Neg) Acetaminophen (10-30) ug/ml Urine Barbiturates (Neg) Ur Phencyclidine (PCP) (Neg) U Amphetamin/Meth Scrn (Neg) MDMA (Ecstasy) Screen (Neg) U Benzodiazepines Scrn (Neg) Ur Cocaine Metabolite (Neg) U Marijuana (THC) Screen (Neg) Ethyl Alcohol mg/dL (0-3) mg/dl COVID-19 Eval Order SARS-CoV-2 (PCR) (Negative) 07/16/21 07/16/21 07/16/21 Range/Units 13:59 13:59 15:09 WBC (4.8-10.8) K/uL RBC (4.2-5.4) M/uL Hgb (12.0-16.0) g/dL POC Hgb (12.0-16.0) g/dl Hct (37-47) % POC Hct (37-47) % MCV (80-100) fL MCH (25-34) pg MCHC (32-36) g/dL RDW Std Deviation (36.4-46.3) fL RDW Coeff of Dorcas (11.5-14.5) % Plt Count (130-400) K/uL MPV (7.4-10.4) fL Immature Gran % (Auto) % Neut % (Auto) % Lymph % (Auto) % [place] % (Auto) % Eos % (Auto) % Baso % (Auto) % Neut # (Auto) (1.4-6.5) K/uL Lymph # (Auto) (1.2-3.4) K/uL [place] # (Auto) (0.11-0.59) K/uL Eos # (Auto) (0-0.5) K/uL Baso # (Auto) (0-0.2) K/uL Immature Gran # (Auto) (0.00-0.02) K/uL APTT (21.0-31.0) Seconds PTT Ratio ABG pH ABG pCO2 ABG pO2 ABG HCO3 ABG O2 Saturation ABG Base Excess Presley Test VBG pH (7.36-7.41) VBG pCO2 (38-50) mmHg VBG pO2 mmHg VBG HCO3 mmol/L VBG O2 Saturation % VBG Base Excess mEq/L Barometric Pressure mm/Hg Oxygen Given POC Sodium (135-144) mmol/L Sodium (136-145) mmol/L POC Potassium (3.3-5.0) mmol/L Potassium (3.5-5.1) mmol/L POC Chloride (101-112) mmol/L Chloride (98-107) mmol/L Carbon Dioxide (21-32) mmol/L POC Total CO2 (24-31) mmol/L Anion Gap (3-11) POC Anion Gap (16-25) mmol/L POC BUN (7-18) mg/dl BUN (7-18) mg/dl Creatinine (0.6-1.2) mg/dl POC Creatinine (0.6-1.3) mg/dl Est Cr Clr Drug Dosing ml/min Est GFR ( Amer) ml/min Est GFR (Non-Af Amer) ml/min BUN/Creatinine Ratio (10-20) Glucose (70-99) mg/dl POC Glucose (other) (70-99) mg/dl Calcium (8.5-10.1) mg/dl POC Ioniz Calcium Benny (1.12-1.32) mmol/l Total Bilirubin (0.2-1) mg/dl AST (15-37) U/L ALT (12-78) U/L Alkaline Phosphatase (45-117) U/L Total Creatine Kinase (26-192) U/L CK-MB (CK-2) (0.5-3.6) ng/ml CK/CKMB % Calc (0-3.0) Troponin I (0-0.045) ng/ml C-Reactive Protein (0-0.29) mg/dl Total Protein (6.4-8.2) gm/dl Albumin (3.4-5.0) gm/dl Globulin (2.5-4.0) gm/dl Albumin/Globulin Ratio (0.9-2) Lipase (73-393) U/L Procalcitonin 18.49 H (0-0.5) ng/ml Urine Color Urine Appearance (Clear) Urine pH (4.5-7.5) Ur Specific [place] (1.000-1.030) Urine Protein (Negative) Urine Glucose (UA) (Negative) Urine Ketones (Negative) Urine Blood (Negative) Urine Nitrite (Negative) Urine Bilirubin (Negative) Urine Urobilinogen (Negative) Ur Leukocyte Esterase (Negative) Urine WBC (Auto) (0-5) /hpf Urine RBC (Auto) (0-4) /hpf U Hyaline Cast (Auto) (0-5) /lpf U Epithel Cells (Auto) (0-5) /lpf Urine Bacteria (Auto) (Negative) Urine Yeast (None Prsent) Salicylates 1.9 L (2.8-20) mg/dl Urine Opiates Screen (Neg) Ur Methadone, Qual (Neg) Acetaminophen 3 L (10-30) ug/ml Urine Barbiturates (Neg) Ur Phencyclidine (PCP) (Neg) U Amphetamin/Meth Scrn (Neg) MDMA (Ecstasy) Screen (Neg) U Benzodiazepines Scrn (Neg) Ur Cocaine Metabolite (Neg) U Marijuana (THC) Screen (Neg) Ethyl Alcohol mg/dL < 3.0 (0-3) mg/dl COVID-19 Eval Order SARS-CoV-2 (PCR) (Negative) 07/16/21 07/16/21 07/16/21 Range/Units 16:15 16:15 16:21 WBC (4.8-10.8) K/uL RBC (4.2-5.4) M/uL Hgb (12.0-16.0) g/dL POC Hgb 11.6 L (12.0-16.0) g/dl Hct (37-47) % POC Hct 34 L (37-47) % MCV (80-100) fL MCH (25-34) pg MCHC (32-36) g/dL RDW Std Deviation (36.4-46.3) fL RDW Coeff of Dorcas (11.5-14.5) % Plt Count (130-400) K/uL MPV (7.4-10.4) fL Immature Gran % (Auto) % Neut % (Auto) % Lymph % (Auto) % [place] % (Auto) % Eos % (Auto) % Baso % (Auto) % Neut # (Auto) (1.4-6.5) K/uL Lymph # (Auto) (1.2-3.4) K/uL [place] # (Auto) (0.11-0.59) K/uL Eos # (Auto) (0-0.5) K/uL Baso # (Auto) (0-0.2) K/uL Immature Gran # (Auto) (0.00-0.02) K/uL APTT (21.0-31.0) Seconds PTT Ratio ABG pH ABG pCO2 ABG pO2 ABG HCO3 ABG O2 Saturation ABG Base Excess Presley Test VBG pH (7.36-7.41) VBG pCO2 (38-50) mmHg VBG pO2 mmHg VBG HCO3 mmol/L VBG O2 Saturation % VBG Base Excess mEq/L Barometric Pressure mm/Hg Oxygen Given POC Sodium 138 (135-144) mmol/L Sodium (136-145) mmol/L POC Potassium 6.7 H* (3.3-5.0) mmol/L Potassium (3.5-5.1) mmol/L POC Chloride 104 (101-112) mmol/L Chloride (98-107) mmol/L Carbon Dioxide (21-32) mmol/L POC Total CO2 26 (24-31) mmol/L Anion Gap (3-11) POC Anion Gap 15.0 L (16-25) mmol/L POC BUN 22 H (7-18) mg/dl BUN (7-18) mg/dl Creatinine (0.6-1.2) mg/dl POC Creatinine 0.7 (0.6-1.3) mg/dl Est Cr Clr Drug Dosing ml/min Est GFR ( Amer) ml/min Est GFR (Non-Af Amer) ml/min BUN/Creatinine Ratio (10-20) Glucose (70-99) mg/dl POC Glucose (other) 147 H (70-99) mg/dl Calcium (8.5-10.1) mg/dl POC Ioniz Calcium Benny 1.29 (1.12-1.32) mmol/l Total Bilirubin (0.2-1) mg/dl AST (15-37) U/L ALT (12-78) U/L Alkaline Phosphatase (45-117) U/L Total Creatine Kinase (26-192) U/L CK-MB (CK-2) (0.5-3.6) ng/ml CK/CKMB % Calc (0-3.0) Troponin I (0-0.045) ng/ml C-Reactive Protein (0-0.29) mg/dl Total Protein (6.4-8.2) gm/dl Albumin (3.4-5.0) gm/dl Globulin (2.5-4.0) gm/dl Albumin/Globulin Ratio (0.9-2) Lipase (73-393) U/L Procalcitonin (0-0.5) ng/ml Urine Color Urine Appearance (Clear) Urine pH (4.5-7.5) Ur Specific [place] (1.000-1.030) Urine Protein (Negative) Urine Glucose (UA) (Negative) Urine Ketones (Negative) Urine Blood (Negative) Urine Nitrite (Negative) Urine Bilirubin (Negative) Urine Urobilinogen (Negative) Ur Leukocyte Esterase (Negative) Urine WBC (Auto) (0-5) /hpf Urine RBC (Auto) (0-4) /hpf U Hyaline Cast (Auto) (0-5) /lpf U Epithel Cells (Auto) (0-5) /lpf Urine Bacteria (Auto) (Negative) Urine Yeast (None Prsent) Salicylates (2.8-20) mg/dl Urine Opiates Screen (Neg) Ur Methadone, Qual (Neg) Acetaminophen (10-30) ug/ml Urine Barbiturates (Neg) Ur Phencyclidine (PCP) (Neg) U Amphetamin/Meth Scrn (Neg) MDMA (Ecstasy) Screen (Neg) U Benzodiazepines Scrn (Neg) Ur Cocaine Metabolite (Neg) U Marijuana (THC) Screen (Neg) Ethyl Alcohol mg/dL (0-3) mg/dl COVID-19 Eval Order Covid19 at [facility] SARS-CoV-2 (PCR) NEGATIVE (Negative) 07/16/21 07/16/21 07/16/21 Range/Units 17:55 17:55 18:43 WBC (4.8-10.8) K/uL RBC (4.2-5.4) M/uL Hgb (12.0-16.0) g/dL POC Hgb (12.0-16.0) g/dl Hct (37-47) % POC Hct (37-47) % MCV (80-100) fL MCH (25-34) pg MCHC (32-36) g/dL RDW Std Deviation (36.4-46.3) fL RDW Coeff of Dorcas (11.5-14.5) % Plt Count (130-400) K/uL MPV (7.4-10.4) fL Immature Gran % (Auto) % Neut % (Auto) % Lymph % (Auto) % [place] % (Auto) % Eos % (Auto) % Baso % (Auto) % Neut # (Auto) (1.4-6.5) K/uL Lymph # (Auto) (1.2-3.4) K/uL [place] # (Auto) (0.11-0.59) K/uL Eos # (Auto) (0-0.5) K/uL Baso # (Auto) (0-0.2) K/uL Immature Gran # (Auto) (0.00-0.02) K/uL APTT (21.0-31.0) Seconds PTT Ratio ABG pH Cancelled ABG pCO2 Cancelled ABG pO2 Cancelled ABG HCO3 Cancelled ABG O2 Saturation Cancelled ABG Base Excess Cancelled Presley Test Cancelled VBG pH (7.36-7.41) VBG pCO2 (38-50) mmHg VBG pO2 mmHg VBG HCO3 mmol/L VBG O2 Saturation % VBG Base Excess mEq/L Barometric Pressure Cancelled mm/Hg Oxygen Given Cancelled POC Sodium (135-144) mmol/L Sodium (136-145) mmol/L POC Potassium (3.3-5.0) mmol/L Potassium (3.5-5.1) mmol/L POC Chloride (101-112) mmol/L Chloride (98-107) mmol/L Carbon Dioxide (21-32) mmol/L POC Total CO2 (24-31) mmol/L Anion Gap (3-11) POC Anion Gap (16-25) mmol/L POC BUN (7-18) mg/dl BUN (7-18) mg/dl Creatinine (0.6-1.2) mg/dl POC Creatinine (0.6-1.3) mg/dl Est Cr Clr Drug Dosing ml/min Est GFR ( Amer) ml/min Est GFR (Non-Af Amer) ml/min BUN/Creatinine Ratio (10-20) Glucose (70-99) mg/dl POC Glucose (other) (70-99) mg/dl Calcium (8.5-10.1) mg/dl POC Ioniz Calcium Benny (1.12-1.32) mmol/l Total Bilirubin (0.2-1) mg/dl AST (15-37) U/L ALT (12-78) U/L Alkaline Phosphatase (45-117) U/L Total Creatine Kinase (26-192) U/L CK-MB (CK-2) (0.5-3.6) ng/ml CK/CKMB % Calc (0-3.0) Troponin I (0-0.045) ng/ml C-Reactive Protein (0-0.29) mg/dl Total Protein (6.4-8.2) gm/dl Albumin (3.4-5.0) gm/dl Globulin (2.5-4.0) gm/dl Albumin/Globulin Ratio (0.9-2) Lipase (73-393) U/L Procalcitonin (0-0.5) ng/ml Urine Color Yellow Urine Appearance Clear (Clear) Urine pH 5.0 (4.5-7.5) Ur Specific [place] 1.023 (1.000-1.030) Urine Protein Negative (Negative) Urine Glucose (UA) 3+ H (Negative) Urine Ketones Trace H (Negative) Urine Blood Negative (Negative) Urine Nitrite Positive A (Negative) Urine Bilirubin Negative (Negative) Urine Urobilinogen Negative (Negative) Ur Leukocyte Esterase Negative (Negative) Urine WBC (Auto) 10-30 H (0-5) /hpf Urine RBC (Auto) 0-4 (0-4) /hpf U Hyaline Cast (Auto) 1-5 (0-5) /lpf U Epithel Cells (Auto) >30 H (0-5) /lpf Urine Bacteria (Auto) 1+ H (Negative) Urine Yeast Budding A (None Prsent) Salicylates (2.8-20) mg/dl Urine Opiates Screen Neg (Neg) Ur Methadone, Qual Neg (Neg) Acetaminophen (10-30) ug/ml Urine Barbiturates Neg (Neg) Ur Phencyclidine (PCP) Neg (Neg) U Amphetamin/Meth Scrn Neg (Neg) MDMA (Ecstasy) Screen Neg (Neg) U Benzodiazepines Scrn Neg (Neg) Ur Cocaine Metabolite Neg (Neg) U Marijuana (THC) Screen Neg (Neg) Ethyl Alcohol mg/dL (0-3) mg/dl COVID-19 Eval Order SARS-CoV-2 (PCR) (Negative) Administered Medications Naloxone HCl 5 mg/ Sodium (Chloride) 100 mls @ 2.6 mls/hr IV .Q24H [facility]; Protocol Stop: 08/15/21 14:29 Last Admin: 07/16/21 14:56 Dose: 0.13 mg/hr, 2.6 mls/hr Documented by: [id number] Cosigned by: [id number] Discontinued Medications Albuterol (Albut/Ipratrop 3mg/0.5mg Neb 3 Ml Vial) 12 ml NEB ONE ONE Stop: 07/16/21 13:27 Last Admin: 07/16/21 13:42 Dose: 12 ml Documented by: [id number] Dextrose (Dextrose 50% 50 Ml Syringe) 50 ml IV NOW ONE Stop: 07/16/21 16:29 Last Admin: 07/16/21 16:51 Dose: 50 ml Documented by: [id number] Sodium Chloride (Nss 1000ml) 500 mls @ 999 mls/hr IV .Q31M ONE Stop: 07/16/21 15:33 Last Infusion: 07/16/21 19:33 Dose: 0 mls/hr Documented by: [id number] Admin: 07/16/21 18:19 Dose: 999 mls/hr Documented by: [id number] Calcium Gluconate () 1,000 mg in 60 mls @ 240 mls/hr IV NOW STA Stop: 07/16/21 16:42 Last Infusion: 07/16/21 17:26 Dose: 0 mls/hr Documented by: [id number] Admin: 07/16/21 16:59 Dose: 240 mls/hr Documented by: [id number] Insulin Human Regular (Novolin-R Insulin Per Unit Charge) 10 units IV NOW STA Stop: 07/16/21 16:29 Last Admin: 07/16/21 16:48 Dose: 10 units Documented by: [id number] Cosigned by: [id number] Ioversol (Optiray 320 125ml) 120 ml IV ONCE ONE Stop: 07/16/21 17:30 Last Admin: 07/16/21 17:29 Dose: 120 ml Documented by: [id number] Methylprednisolone (Methylprednisolone 125 Mg/2 Ml Vial) 125 mg IV NOW STA Stop: 07/16/21 13:27 Last Admin: 07/16/21 14:13 Dose: 125 mg Documented by: [id number] Naloxone HCl (Naloxone Hcl 0.4 Mg/1 Ml Vial/Carp) 0.2 mg IV NOW STA Stop: 07/16/21 13:26 Last Admin: 07/16/21 14:13 Dose: 0.2 mg Documented by: [id number] Naloxone HCl (Naloxone Hcl 0.4 Mg/1 Ml Vial/Carp) 0.1 mg IV .15 MINUTES AFTER.. ONE Stop: 07/16/21 14:42 Last Admin: 07/16/21 15:12 Dose: 0.1 mg Documented by: [id number] Sodium Bicarbonate (Sodium Bicarb 8.4% Inj 50 Meq/50 Ml Syr) 50 meq IV NOW STA Stop: 07/16/21 16:29 Last Admin: 07/16/21 16:54 Dose: 50 meq Documented by: [id number] Imaging Data Radiologist's Impression: Chest X-Ray 07/16/21 13:25 XR chest 1V portable HISTORY: Atypical Chest Pain COMPARISON: Chest 05/31/2021. FINDINGS: Mild emphysema. There is mild diffuse interstitial thickening. This is likely chronic. This is most pronounced within the left lung base. There is stable blunting left lateral costophrenic sulcus. There are calcified granulomas within the right lung base. The heart is normal in size. No pneumothorax. IMPRESSION: 1. No change in the mild emphysema. 2. Mild diffuse interstitial thickening which is likely chronic. 3. Stable blunting within the left lateral costophrenic sulcus which could represent a trace pleural effusion. This will be better appreciated on the same day abdomen and pelvis CT. ACT 112: Negative or not required by law. Electronically signed by: Wicho Gutierrez M.D. 07/16/2021 1:53 PM Abdomen/Pelvis CT 07/16/21 13:30 CT SCAN OF THE ABDOMEN AND PELVIS WITH IV CONTRAST CLINICAL HISTORY: Generalized abdominal pain. Obtunded. COMPARISON STUDY: Abdominal CT dated 05/30/2021. TECHNIQUE: Following the IV administration of 120 cc of Optiray 320, CT scan of the abdomen and pelvis is performed from the lung bases to the proximal femora. Images are reviewed in the axial, sagittal, and coronal planes. IV contrast was administered without complication. A dose lowering technique was utilized adhering to the principles of ALARA. The examination is degraded by motion artifact, as well as by streak artifact from the arms which could not be elevated above the abdomen or pelvis. FINDINGS: Lung bases: The heart is normal in size and without pericardial effusion. The coronary arteries are densely calcified. A tiny hiatal hernia is noted. Advanced and edematous change is seen at the lung bases. There is bibasilar scarring and/atelectasis. Scattered calcified granulomas are observed. Liver: The contrast-enhanced liver is normal in size, contour, and attenuation. There is minimal central intrahepatic biliary ductal dilatation. The hepatic veins and portal veins are patent. Gallbladder: Surgically absent noting clips in the gallbladder fossa. Spleen: Normal in size and attenuation. There are numerous calcified splenic granulomas. Pancreas: Prominence of the pancreatic duct is similar to previous. The pancreas is moderately atrophic and otherwise grossly unremarkable. Adrenal glands: Bilateral adrenal nodules are similar to previous. Kidneys: The contrast enhanced kidneys demonstrate mild cortical atrophy and are without hydronephrosis. The kidneys enhance symmetrically. Abdominal vasculature: There is advanced atherosclerotic calcification of the abdominal aorta. An infrarenal abdominal aortic aneurysm measures 3.5 x 3.7 cm (AP x transverse). The aneurysm sac extends 5.4 cm in craniocaudal length. Bowel: There is mild to moderate colonic diverticulosis without CT evidence of acute diverticulitis. No bowel obstruction is seen. Submucosal fat deposition is noted throughout the right colon. The appendix is not visualized. Peritoneum: There is no intraperitoneal free air or abdominal ascites. There is a fat-containing umbilical hernia. Lymphadenopathy: None. Pelvic viscera: Small foci of gas are noted within the bladder lumen. The bladder is distended but otherwise normal in appearance. The uterus is surgically absent. No adnexal lesion is seen. Skeletal structures: The skeletal structures are osteopenic. The lumbosacral spine, bony pelvis, and proximal femora appear intact. There is moderate lumbosacral spondylosis. No lytic or blastic lesions are seen. A 2.5 cm benign- appearing sclerotic lesion is again seen in the right femoral neck, possibly representing an enchondroma. 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 IMPRESSION: 1. Streak and motion compromised examination. 2. No acute infectious or inflammatory findings are seen in the abdomen or pelvis. 3. A 3.5 x 3.7 cm infrarenal abdominal aneurysm is unchanged. 4. Advanced emphysema. 5. Nonspecific gas within the bladder lumen may be related to instrumentation. Correlation with clinical findings and urinalysis will be required. 6. Additional findings as above. ACT 112: Negative or not required by law. Electronically signed by: Koby Wallace M.D. 07/16/2021 6:[address] 07/16/21 13:30 CT SCAN OF THE BRAIN WITHOUT IV CONTRAST CLINICAL HISTORY: Change in mental status. Obtundation. COMPARISON STUDY: CT of the brain dated 05/30/2021. TECHNIQUE: Unenhanced axial CT scan of the brain is performed from the vertex to the skull base. A dose lowering technique was utilized adhering to the principles of ALARA. The examination is compromised by motion artifact. The patient was scanned 3 times in an effort to improve image quality. CT DOSE: 2677.19 mGy.cm FINDINGS: Brain parenchyma: There are age-related involutional changes noting mild subcortical and periventricular microangiopathic change. There is no hemorrhage, mass effect, or evidence of acute territorial ischemia by CT criteria. Mineralization is noted in the basal ganglia. Cooper-white matter differentiation is preserved. No extra-axial fluid collection is seen. Ventricles, sulci, cisterns: Prominent secondary to involutional change. Intracranial vasculature: There is atherosclerotic calcification of the cavernous carotid and vertebral arteries. Calvarium: Unremarkable. Sinuses and mastoids: The paranasal sinuses are clear. The mastoid air cells are well pneumatized. Orbits: The bony orbits are grossly intact. There are bilateral ocular lens implants. IMPRESSION: There is no hemorrhage, mass effect, or evidence of acute territorial ischemia by CT criteria noting a significantly motion compromised examination. ACT 112: Negative or not required by law. Electronically signed by: Koby Wallace M.D. 07/16/2021 5:53 PM Chest CTA 07/16/21 15:09 CHEST CTA for PULMONARY ARTERIES CT DOSE: HISTORY: Shortness of breath. Evaluate for pulmonary embolus. TECHNIQUE: Multiaxial CT images of the chest were performed following the intravenous administration of contrast to evaluate the pulmonary arteries. Maximal intensity projection images were also obtained. A dose lowering technique was utilized adhering to the principles of ALARA. COMPARISON STUDY: Chest CT 05/30/2021. FINDINGS: Moderate atherosclerotic plaque within the normal caliber thoracic aorta. No evidence for an aortic dissection. The heart is normal in size. No pleural or pericardial effusions. Nondiagnostic evaluation of the majority of the bilateral lower lobe segmental and subsegmental pulmonary arteries. However, the remaining pulmonary arteries show no filling defects to suggest a pulmonary embolus. Please refer to the same day abdomen and pelvis is 2 for further evaluation of the abdominal structures. Normal esophagus. No acute fractures within the visualized osseous structures. There are old, healed right anterior rib fractures. Calcified subcarinal/right hilar lymph nodes. No change in the prominent mediastinal lymph nodes with the dominant precarinal lymph node measuring 11 mm in short axis diameter. No hilar lymphadenopathy. Moderate emphysema. No pneumothorax. Linear focus of consolidation within the left upper lobe medially which is new from the prior study. The 1.4 cm groundglass density within the right lung apex posteriorly on image 268. This has slightly progressed. Linear density within the right middle lobe favors subsegmental atelectasis are scarring. The punctate calcified granuloma within the right lower lobe. Small amount of mucoid material within the left mainstem bronchus. IMPRESSION: 1. No evidence for pulmonary embolus with limitations as described above. 2. Linear area of consolidation within the left upper lobe medially. This may represent atelectasis or pneumonia. 3. Moderate emphysema. 4. A 1.4 cm groundglass density within the right lung apex. This has slightly progressed in the interval. Therefore, follow-up chest CT and 3 6 months is recommended to ensure stability/resolution. ACT 112: Positive. There are findings on this exam that require communication between the performing entity and the patient following Patient Test Result Information Act ([place] Act 112) guidelines. Electronically signed by: Wicho Gutierrez M.D. 07/16/2021 5:57 PM Discharge Plan Visit Data Chief Complaint: Shortness of Breath/Dyspnea ED Provider: Subhash Buitrago Discharge Problem: Hypercarbia, Acute on chronic respiratory failure with hypoxemia, Diabetes type 2, uncontrolled, Acidosis Patient Disposition: Admitted As Inpatient Forms Stand Alone Forms: [facility], Later [facility] Prescriptions Prescriptions: No Action ipratropium-albuterol 0.5 mg-3 mg(2.5 mg base)/3 mL solution for nebulization 3 ml INHALATION QID PRN (Reason: Shortness Of Breath Or Wheezing) RF: 0 atorvastatin 40 mg tablet 40 mg PO DAILY RF: 0 carvedilol 12.5 mg tablet 12.5 mg PO BID RF: 0 budesonide 0.5 mg/2 mL suspension for nebulization 0.5 mg inhalation BID RF: 0 diltiazem HCl [Cartia XT] 120 mg capsule,extended release 24hr 120 mg PO DAILY RF: 0 aspirin [Aspirin Low Dose] 81 mg Tablet,Delayed Release (Dr/Ec) 81 mg PO DAILY RF: 0 albuterol sulfate 90 mcg/actuation HFA aerosol inhaler 2 puff INHALATION Q6 PRN (Reason: Shortness Of Breath Or Wheezing) RF: 0 losartan 50 mg tablet 50 mg PO DAILY RF: 0 metformin 1,000 mg tablet 1,000 mg PO BID RF: 0 Jardiance 10 mg tablet 10 mg PO DAILY RF: 0 oxycodone 5 mg tablet 5 mg PO TID PRN (Reason: Pain) RF: 0 polyethylene glycol 3350 [Miralax] 17 gram powder in packet 17 g PO BID PRN (Reason: Constipation) RF: 0 ondansetron HCl [Zofran] 4 mg tablet 4 mg PO Q6H PRN (Reason: nausea and vomiting) Qty: 6 RF: 0 (DME) blood-glucose meter [OneTouch Verio Meter] Misc See Rx Instructions .ROUTE .MEDSUPPLY Qty: 1 RF: 0 (DME) OneTouch Verio test strips Strip See Rx Instructions .ROUTE .MEDSUPPLY Qty: 50 RF: 3 (DME) lancets [OneTouch Delica Lancets] 33 gauge misc See Rx Instructions .ROUTE .MEDSUPPLY Qty: 100 RF: 3 Referrals Referrals: Karo Champagne CRNP [Primary Care Provider] -
[2021-07-16] MEDS ORDERED: ALBUTEROL 0.083% NEBU SOLN 3 ML VIAL NEB PRN (20:52)
[2021-07-16] MEDS ORDERED: ALBUTEROL HFA 8 GM INHALER INH PRN (20:52)
[2021-07-16] MEDS ORDERED: ICU PROTOCOL FOR HYPERGLYCEMIA PRN (20:52)
[2021-07-16] MEDS ORDERED: PIPERACILL/TAZOBAC CONSULT ACTIVE PRN (20:52)
[2021-07-16 21:23] LABS: iSTAT Allen Test Pass; iSTAT Art Bld Gas pCO2 Correct 52 mmHg (35-46); iSTAT Art Bld Gas pH Corrected 7.271 (7.35-7.45); iSTAT Arterial Blood Gas HCO3 24 meg/L (19-24); iSTAT Arterial Blood Gas pCO2 53 mmHg (35-46); iSTAT Arterial Blood Gas pH 7.26 (7.35-7.45); iSTAT Arterial Blood Gas pO2 81 mmHg (80-95); iSTAT Arterial Blood Gas pO2 C 78; iSTAT Carbon Dioxide 25 mmol/L (24-31); iSTAT FiO2 32 %; iSTAT Hematocrit 34 % (37-47); iSTAT Hemoglobin 11.6 g/dl (12.0-16.0); iSTAT Potassium 5.2 mmol/L (3.3-5.0); iSTAT Site L Radial; iSTAT Sodium 139 mmol/L (135-144)
[2021-07-16] MEDS ORDERED: PIPERACILLIN/TAZOBACTAM 3.375 GM in DEXTROSE 5% 100 ML IV ONE (21:30)
[2021-07-16] MEDS: methylPREDNISolone 40 MG in SYRINGE 0 ML IV SCH (21:38)
[2021-07-16] MEDS: ENOXAPARIN INJ 40 MG/0.4 ML SYR SQ SCH (21:38)
[2021-07-16 22:10] LABS: BUN Creatinine Ratio 29.4 (10-20); Calcium 9.2 mg/dl (8.5-10.1); Creatinine Clr Calc Pharmacy 87.4 ml/min; Est GFR (African American) 111.6 ml/min; Est GFR (Non-African American) 96.3 ml/min; Potassium 5.4 mmol/L (3.5-5.1)
[2021-07-16 22:21] LABS: Phosphorus 4.1 mg/dl (2.5-4.9); Thyroid Stimulating Hormone 1.08 uIu/ml (0.300-4.500)
[2021-07-16 22:32] LABS: Lyme Ab IgG w/WB Rflx Negative (Negative); Lyme Ab IgM w/WB Rflx Negative (Negative)
[2021-07-16] MEDS: NORMOSOL-R 1,000 ML IV SCH (22:50)
[2021-07-17] MEDS ORDERED: PHARMACY GLYCEMIC MGMT CONSULT PRN (00:23)
[2021-07-17] MEDS ORDERED: INSULIN GLARGINE SOLOSTAR 100 UNITS/ML 3 ML PEN SC ONE ×2 (01:30→14:45)
[2021-07-17] MEDS ORDERED: CARBOHYDRATES FOR HYPOGLYCEMIA PO PRN (01:30)
[2021-07-17] MEDS ORDERED: GLUCOSE 40% GEL 15 GM TUBE PO PRN (01:30)
[2021-07-17] MEDS ORDERED: DEXTROSE 50% 50 ML SYRINGE IV PRN (01:30)
[2021-07-17] MEDS ORDERED: GLUCOSE 10 TABS/TUBE PO PRN (01:30)
[2021-07-17] MEDS ORDERED: GLUCAGON FOR INJ 1 MG VIAL SQ PRN (01:30)
[2021-07-17] MEDS: INSULIN ASPART 100 UNITS/ML 3 ML PEN SC SCH ×6 (01:53→21:16)
[2021-07-17] MEDS ORDERED: PIPERACILLIN/TAZOBACTAM 3.375 GM in DEXTROSE 5% 100 ML IV SCH (04:00)
[2021-07-17] MEDS ORDERED: ACETAMINOPHEN 1,000 MG/100 ML VIAL IV STA (04:32)
[2021-07-17 05:21] LABS: iSTAT Allen Test Pass; iSTAT Art Bld Gas pCO2 Correct 57 mmHg (35-46); iSTAT Art Bld Gas pH Corrected 7.225 (7.35-7.45); iSTAT Arterial Blood Gas HCO3 24 meg/L (19-24); iSTAT Arterial Blood Gas pCO2 58 mmHg (35-46); iSTAT Arterial Blood Gas pH 7.22 (7.35-7.45); iSTAT Arterial Blood Gas pO2 35 mmHg (80-95); iSTAT Arterial Blood Gas pO2 C 34; iSTAT Carbon Dioxide 25 mmol/L (24-31); iSTAT FiO2 32 %; iSTAT Hematocrit 34 % (37-47); iSTAT Hemoglobin 11.6 g/dl (12.0-16.0); iSTAT Site R Radial; iSTAT Sodium 137 mmol/L (135-144)
[2021-07-17 05:21] LABS: iSTAT Allen Test Pass; iSTAT Art Bld Gas pCO2 Correct 49 mmHg (35-46); iSTAT Art Bld Gas pH Corrected 7.256 (7.35-7.45); iSTAT Arterial Blood Gas HCO3 22 meg/L (19-24); iSTAT Arterial Blood Gas pCO2 51 mmHg (35-46); iSTAT Arterial Blood Gas pH 7.25 (7.35-7.45); iSTAT Arterial Blood Gas pO2 86 mmHg (80-95); iSTAT Arterial Blood Gas pO2 C 83; iSTAT Carbon Dioxide 24 mmol/L (24-31); iSTAT FiO2 32 %; iSTAT Hematocrit 33 % (37-47); iSTAT Hemoglobin 11.2 g/dl (12.0-16.0); iSTAT Site L Radial; iSTAT Sodium 139 mmol/L (135-144)
[2021-07-17 05:48] LABS: Basophils # (auto) 0.01 K/uL (0-0.2); Basophils % (auto) 0.1 %; Hemoglobin 10.5 g/dL (12.0-16.0); Immature Granulocytes # (auto) 0.08 K/uL (0.00-0.02); Immature Granulocytes % (auto) 0.7 %; Lymphocytes # (auto) 0.88 K/uL (1.2-3.4); Lymphocytes % (auto) 7.6 %; Mean Corpuscular Hemoglobin 25.5 pg (25-34); Mean Platelet Volume 9.1 fL (7.4-10.4); Monocytes # (auto) 0.07 K/uL (0.11-0.59); Monocytes % (auto) 0.6 %; Neutrophils # (auto) 10.56 K/uL (1.4-6.5); Platelet Count 509 K/uL (130-400); RDW Coefficient of Variation 19.5 % (11.5-14.5); RDW Standard Deviation 61.1 fL (36.4-46.3); Red Blood Count 4.12 M/uL (4.2-5.4)
[2021-07-17 06:07] LABS: Albumin Level 2.8 gm/dl (3.4-5.0); BUN Creatinine Ratio 27.1 (10-20); Calcium 8.9 mg/dl (8.5-10.1); Creatinine Clr Calc Pharmacy 79.9 ml/min; Est GFR (African American) 107.8 ml/min; Potassium 5.5 mmol/L (3.5-5.1)
[2021-07-17 06:10] LABS: Albumin Globulin Ratio 0.9 (0.9-2); Bilirubin,Total 0.5 mg/dl (0.2-1); Globulin 3.2 gm/dl (2.5-4.0); Phosphorus 5.4 mg/dl (2.5-4.9)
[2021-07-17] MEDS ORDERED: CALCIUM GLUCONATE 10% 1,000 MG in SODIUM CHLORIDE 0.9% 50 ML IV ONE (06:30)
[2021-07-17] MEDS ORDERED: DEXTROSE 50% 50 ML SYRINGE IV ONE (06:45)
[2021-07-17] MEDS ORDERED: INSULIN HUMAN REGULAR PER UNIT 6 UNITS in SYRINGE 5.94 ML IV ONE (06:45)
--- NOTE | 2021-07-17 07:41 | Hospitalist Progress Note ---
Date of Service July 17, 2021 Assessment & Plan (1) Sepsis: Plan: Sepsis secondary to UTI and possible pulmonary involvement- pneumonia vs atelectasis - Zosyn 3.375 GM IV q8, urine shows > 100K gram negative - MRSA swab negative - Lacate not elevated, CRP mildly elevated , Procalcitonin significantly elevated -CT chest with small changes in left upper lobe and right lung apex, repeat CT recommended - Blood cultures pending - LFTS likely acute phase reactant- gallbladder is surgically absent (2) UTI (urinary tract infection): Plan: seems to be gram negative urine infection associated with sepsis on presentation, now resolving (3) Respiratory failure with hypercapnia: Plan: Secondary to encephalopathy and hypoventilation at this time - does not appear to be COPD exacerbation at this time - ABG with metabolic acidosis - Continue budesonide nebs, albuterol nebs, and albuterol HFA - Wean BiPAP as mental status improves (4) Encephalopathy: Plan: originally presumed related to her narcotic use, however her Urine tox is negative for opiates/benzo -presumed metabolic encephalopathy - Support respiratory acidosis - TSH and cortisol are normal - WBC normal, not chronically immunocompromised (5) Acidosis: Plan: inital respiratory acidodis based on VBG, no significant lactate and anion gap is 15 - lactate not elevated - Chloride 109 - Tylenol and salicylates normal - Serum osmo and urine osmo pending - Normosol at 100 ml per hour (6) Hyperkalemia: Plan: Likely related to acidosis with presenting PH at 7.16 - Normosol for now, could also consider using LR (as LR will actually also help lower K) - Correcting acidosis corrected potassium - Calcium gluc given in EMD -TSH and Cortisol appropriate (7) Abnormal chest xray: Plan: Atelectasis vs. Pneumonia - could also be residual/resolving from previous admission as this was left s ided as well (8) Diabetes type 2, uncontrolled: Plan: Hold metformin Hold Jardiance - hyperglycemia glycemic management with basal bolus insulin (9) COPD (chronic obstructive pulmonary disease): Plan: Chronic - patient just completed course of steroids and abx for pneumonia/exacerbation (10) AAA (abdominal aortic aneurysm): Plan: Stable at 3.5x3.7 cm - maintain statin and BP control - BP medications on hold while NPO and until mentation improves Admission and Anticipated Discharge Date Admission Date: July 16, 2021 Subjective Pt is much more awake and alert [place] to speak to me and is oriented but does not remember the events of her admission, she is c/o pain and chronically takes daily opiates, she had these held due to concerns of toxic encephalopathy but with now urine reulting to be Gram negative infection parulley cause is metabolic encephalopathy Review of Systems Review of Systems: Mild distress and fatigue no headache, no visual changes no speech or swallowing issues no chest pain, pressure or palpitations no shortness of breath, cough or wheezes no abdominal pain, nausea or vomiting, diarrhea or constipation now complaints of dysuria, but no hematuria or frequency no focal joint pain or swelling, but diffuse arthralgias return of daily lower back pain, CVA tenderness or radicular pain no bruising, bleeding or rashes no focal signs of weakness or numbness or altered sensation no complaints of anxiety or depression.. Physical Exam Physical Exam: The patient appeared well nourished and normally developed. Vital signs as documented. Head exam is normocephalic atraumatic Neck is without JVD, thyromegaly, or carotid bruits. Lungs are clear to auscultation, no focal loss of breath sounds Cardiac exam, Rhythm is regular.. No murmurs, rubs or gallops. Abdominal exam reveals normal bowel sounds, soft non tender, no masses Extremities are nonedematous and both pedal pulses are present Neurologic exam is alert and oriented, no focal loss of strength or sensation Skin is without bruises or rashes Psychologically is without concerns for anxiety or depression Results & Data Results & Data ([facility]) Vital Signs (Past 12 Hours) Vital Signs Temp Pulse Pulse Resp BP BP Pulse Ox 07/17/21 06:00 97.5 F L 07/17/21 05:05 103 H 19 128/74 07/17/21 04:36 102 H 25 H 122/86 97 07/17/21 04:06 105 H 18 155/78 H 93 07/17/21 04:00 97.5 F L 07/17/21 03:35 95 H 22 137/71 97 07/17/21 03:16 102 H 20 94 07/17/21 03:05 102 H 24 130/63 98 07/17/21 02:35 98 H 26 H 101/68 97 07/17/21 02:05 95 H 23 114/63 96 07/17/21 01:56 96 H 18 96 07/17/21 01:35 97 H 24 117/62 95 07/17/21 01:05 100 H 26 H 110/54 L 95 07/17/21 00:35 99 H 24 116/56 L 95 07/17/21 00:05 99 H 24 110/54 L 95 07/17/21 00:00 97.2 F L 07/16/21 23:33 97 H 24 114/55 L 96 07/16/21 23:06 73 25 H 97 07/16/21 22:35 102 H 24 117/60 97 07/16/21 22:23 105 H 26 H 96 07/16/21 22:05 180 H 27 H 116/66 98 07/16/21 21:35 102 H 27 H 117/53 L 95 07/16/21 21:05 103 H 10 L 126/56 L 96 07/16/21 20:50 104 H 28 H 130/61 96 07/16/21 20:41 104 H 24 96 07/16/21 20:34 89 L 07/16/21 20:00 103 H 26 H 117/61 98 PG Care Time/CCT Total # of Minutes Spent Total Time Spent with Patient: Total time spent is greater than 50% in coordin ation of care (as documented) at patient's floor/unit and/or counseling patient: Coding Level of Care Code 77626 Subseq Hosp Care Lvl 3 Diagnoses Sepsis A41.9 UTI (urinary tract infection) N39.0 Respiratory failure with hypercapnia J96.92 Encephalopathy G93.40 Acidosis E87.2 Hyperkalemia E87.5 Abnormal chest xray R93.89 Diabetes type 2, uncontrolled E11.65 Glycemic state: with hyperglycemia COPD (chronic obstructive pulmonary disease) J44.9 AAA (abdominal aortic aneurysm) I71.4 (1) Diabetes type 2, uncontrolled Glycemic state: with hyperglycemia Qualified Code(s): E11.65 - Type 2 diabetes mellitus with hyperglycemia
[2021-07-17] MEDS: BUDESONIDE 0.5 MG/2 ML VIAL (PULMICORT) INH SCH ×2 (07:51→19:47)
--- NOTE | 2021-07-17 08:14 | XRay Report ---
XR chest 1V portable HISTORY: Shortness of breath. COMPARISON: Chest 07/16/2021. FINDINGS: No pneumothorax. No pleural effusions. Calcified granulomas again noted within the right lo wer lobe. The heart is normal in size. There is mild diffuse interstitial thickening which is likely chronic. The lungs remain hyperexpanded. Left upper lobe medial density is not well visualized on thi s study. No new focal lung consolidations. No evidence for pulmonary edema. Mild emphysema. IMPRESSION: 1. Mild emphysema. 2. No new focal lung consolidations. 3. The left upper lobe medial density is not well visualized on this study. ACT 112: Negative or not required by law. Electronically signed by: Wicho Gutierrez M.D. 07/17/2021 8:13 AM
--- NOTE | 2021-07-17 08:14 | Critical Care Progress Note ---
Date of Service July 17, 2021 Assessment & Plan (1) Respiratory failure with hypercapnia: Plan: Daniella Gandara is a 71 yo female with PMHx significant for COPD with chronic respiratory failure (uses 3L supplemental O2 via NC), T2DM (A1c 8.3 in 05/2021), chronic tobacco use, HTN, HLD, AAA, h/o recurrent pneumonia, and recurrent UTIs (most recent was diaz-sensitive Klebsiella) who was admitted to the ICU on 07/16 for close hemodynamic monitoring in setting of acute on chronic hypercapnic respiratory failure. Neuro: Encephalopathy due to acute hypercapnic respiratory failure. Narcotic overdose may be contributing to this, given the patient's home opioids and improvement in mental status with Narcan. Sepsis may also be contributing (UTI +/- ?PNA). Also mild COPD exacerbation may be playing a role although no wheezes on my exam. Patient currently improved on BiPAP - awake/alert and able to follow simple commands. - Head CT without acute process - initial UDS negative (including opiates); confirmation pending - maintain close monitoring while in ICU Cardiac: HTN/HLD. - hold home Carvedilol, Diltiazem, and Losartan in setting of sepsis - continue home statin Respiratory: Acute on chronic hypercapnic respiratory failure, likely multifactorial as stated above - Narcan overdose, sepsis, and mild COPD exacerbation. Weaned off of BiPAP this morning. - CXR today with stable appearance of emphysema - ABGs stable respiratory/metabolic acidosis - continue NC as needed to maintain SpO2 88-92% - continue Solu-Medrol 40mg IV BID, DuoNebs, home COPD inhalers - Zosyn for atypical coverage, as stated below - patient will need f/u CT chest in 3-6 months for RUL nodule GI: CT A/P without acute process. Patient has mild transaminitis (ALT 127), likely due to impaired perfusion in context of possible sepsis. ALT improved to 108 today. - started DM2 diet today - trend LFTs daily RENAL/LYTES: Hyperkalemia, in the setting of possible sepsis. Improving. - s/p calcium gluconate, insulin and dextrose x1, with another treatment this AM - repeat BMP at noon - continue treatment as necessary - replete electrolytes as necessary : UTI, as specified below in ID. - continue pederson catheter - strict I/Os ENDO: T2DM, last A1c 8.3 in 05/2021. Random cortisol and TSH WNL. - glycemic management per ICU HEME: Chronic normocytic anemia, stable. Suspect anemia of chronic disease. - trend CBC ID: Sepsis with qSOFA score of 2 and SIRS score of 2, Procalcitonin 18.49, Urine cx growing gram-negative bacilli. Suspect urinary source. CTA chest interpretation of THELMA linear consolidation may be atelectasis vs PNA but would suspect the former. MRSA nares negative. Lyme negative and peripheral smear negative for Anaplasma inclusion bodies - tick-borne illness unlikely. - continue Zosyn, adjust as necessary pending blood cultures and final urine culture - stopped IVFs LINES/IV ACCESS: PIVs intact. DVT PROPHYLAXIS: Lovenox CODE STATUS: full code Disposition: stable for downgrade to tele today Thank you for allowing us to be part of this patient's care. Please refer to Dr. Euceda's documentation for any further recommendations. (2) Encephalopathy: (3) COPD (chronic obstructive pulmonary disease): (4) Hyperkalemia: Admission and Anticipated Discharge Date Admission Date: July 16, 2021 Supervising Physician Co-Signing Physician Notes Dr. Kent was resident physician during care of patient. I separately evaluated patient for [place] portions of the history and the exam. I was present during the critical portion of medical decision making, and I discussed the case with the resident. I generally agree with the findings and plan. Mental status is improved, respiratory status also improved. De-escalate antibiotics to Rocephin secondary to pansensitive Klebsiella on last UTI Continue steroids for COPD exacerbation Stable for downgrade this afternoon to telemetry status Subjective No acute events overnight. Patient's BiPAP settings were able to be weaned to 10/28/30 (from 10/28/40) overnight. Narcan gtt stopped yesterday evening without complications. IVFs running. She was sleeping but arousable to verbal stimulation. Is able to tell me her name and where she is. Reports persistent suprapubic tenderness. Review of Systems Review of Systems: Denies fever/chills, chest pain, SOB. Physical Exam Physical Exam: General: Patient is lying in bed and appears to be comfortable on BiPAP She was initially sleeping but arousable to verbal stimulation and remained awake/alert throughout exam. A+O to name and place. HEENT: Atraumatic, normocephalic. BiPAP in place. Neck: trachea midline, no thyromegaly Pulm: diminished, end-expiratory wheezes bilaterally. Symmetrical chest rise. No increase work of breathing on BiPAP. Cardiac: RRR, -mrg. Radial pulses intact and symmetrical. No LE edema. Abdominal: non-distended, soft, +suprapubic tenderness, NA BS x 4 Skin: warm, dry, no rash Results & Data Results & Data ([facility]) Vital Signs (Past 12 Hours) Vital Signs Temp Pulse Pulse Resp BP BP Pulse Ox 07/17/21 07:55 88 88 21 96 07/17/21 06:00 36.4 C L 07/17/21 05:05 103 H 19 128/74 07/17/21 04:36 102 H 25 H 122/86 97 07/17/21 04:06 105 H 18 155/78 H 93 07/17/21 04:00 36.4 C L 07/17/21 03:35 95 H 22 137/71 97 07/17/21 03:16 102 H 20 94 07/17/21 03:05 102 H 24 130/63 98 07/17/21 02:35 98 H 26 H 101/68 97 07/17/21 02:05 95 H 23 114/63 96 07/17/21 01:56 96 H 18 96 07/17/21 01:35 97 H 24 117/62 95 07/17/21 01:05 100 H 26 H 110/54 L 95 07/17/21 00:35 99 H 24 116/56 L 95 07/17/21 00:05 99 H 24 110/54 L 95 07/17/21 00:00 36.2 C L 07/16/21 23:33 97 H 24 114/55 L 96 07/16/21 23:06 73 25 H 97 07/16/21 22:35 102 H 24 117/60 97 07/16/21 22:23 105 H 26 H 96 07/16/21 22:05 180 H 27 H 116/66 98 07/16/21 21:35 102 H 27 H 117/53 L 95 07/16/21 21:05 103 H 10 L 126/56 L 96 07/16/21 20:50 104 H 28 H 130/61 96 07/16/21 20:41 104 H 24 96 07/16/21 20:34 89 L Resident Activity Tracking Resident Involvement: Resident Care Provided Care Provided: Adult [facility]
--- NOTE | 2021-07-17 09:36 | Billing Data ---
Date of Service July 17, 2021 Coding Level of Care Code 68729 Subseq Hosp Care Lvl 3
[2021-07-17] MEDS: NORMOSOL-R 1,000 ML IV SCH (09:39)
[2021-07-17] MEDS: ATORVASTATIN 40 MG TAB PO SCH (09:44)
[2021-07-17] MEDS: methylPREDNISolone 40 MG in SYRINGE 0 ML IV SCH (09:44)
[2021-07-17] MEDS: cefTRIAXone SODIUM 2,000 MG in DEXTROSE 5% 50 ML IV SCH (11:25)
[2021-07-17] MEDS ORDERED: MoRPHine SULFATE 2 MG/ML CARP ONE (11:55)
[2021-07-17] MEDS: oxyCODONE HCL IR 5 MG TAB (IMMEDIATE RELEASE) PO PRN ×2 (12:14→18:05)
[2021-07-17 12:16] LABS: HCO3 VBG 24 mmol/L; PCO2 VBG 50 mmHg (38-50); PO2 VBG 25 mmHg; pH VBG 7.29 (7.36-7.41)
[2021-07-17 12:17] LABS: Oxygen Saturation VBG < 60.0 %
[2021-07-17 12:40] LABS: BUN Creatinine Ratio 23.2 (10-20); Calcium 8.7 mg/dl (8.5-10.1); Creatinine Clr Calc Pharmacy 66.6 ml/min; Est GFR (Non-African American) 85.4 ml/min; Potassium 5.1 mmol/L (3.5-5.1)
[2021-07-17] MEDS ORDERED: Nursing to Pharmacy Communication SCH (12:45)
--- NOTE | 2021-07-17 15:04 | Pharmacy Report ---
Pharmacy Glycemic Short Note 2 - Date of Service July 17, 2021 - Glycemic Short BSG Results (Last 24 hours): 07/16/21 07/16/21 07/17/21 16:21 21:16 00:07 Glucose 179 H POC Glucose 191 H POC Glucose (other) 147 H 07/17/21 07/17/21 07/17/21 05:31 05:47 10:23 Glucose 180 H POC Glucose 177 H 168 H POC Glucose (other) 07/17/21 12:04 Glucose 251 H POC Glucose POC Glucose (other) OUTPATIENT ANTIDIABETIC REGIMEN: * metformin 1000mg BID * Jardiance 10 mg PO daily * A1c: 8.3% 06-02-21 ASSESSMENT: * Patient presenting for possible COPD exacerbation started on IV solumedrol likely experiencing some steroid induced hyperglycemia. * Patient was NPO but ordered a diet at lunchtime. Patient also received a half amp of D5W this morning, likely contributing to hyperglycemia. It appears the 251 mg/dL reading at 1200 may have been post prandial and thus I will not react to this. Will initiate once daily Lantus and continue with a moderate to severe stressed novolog scale. PLAN FOR INPATIENT GLYCEMIC CONTROL: * Hold outpatient oral diabetes medications * Basal insulin * Lantus 15 units SQ given last evening * Lantus 15 or 20 units HS based on BSG (See MAR for details) * Bolus insulin * NovoLog per scale ACHS or Q6hrs while NPO * Goal Range: Low 110 mg/dL - High 140 mg/dL * Correction Factor: 30 mg/dL/unit * Nutritional / Prandial insulin per carb ratio of 1 unit per 10 grams CHO consumed
[2021-07-17] MEDS ORDERED: carvediloL 12.5 MG TAB PO ONE (17:15)
[2021-07-17] MEDS ORDERED: hydrALAZINE HCL 20 MG/ML VIAL IV PRN (17:53)
[2021-07-17] MEDS: carvediloL 12.5 MG TAB PO SCH (20:22)
[2021-07-17] MEDS: ENOXAPARIN INJ 40 MG/0.4 ML SYR SQ SCH (20:22)
[2021-07-17] MEDS ORDERED: INSULIN GLARGINE SOLOSTAR 100 UNITS/ML 3 ML PEN SC SCH (21:00)
[2021-07-17] MEDS: ALBUT/IPRATROP 3MG/0.5MG NEB 3 ML VIAL INH PRN (22:16)
[2021-07-18] MEDS: INSULIN ASPART 100 UNITS/ML 3 ML PEN SC SCH ×6 (00:20→20:26)
[2021-07-18] MEDS: ALBUT/IPRATROP 3MG/0.5MG NEB 3 ML VIAL INH PRN ×2 (04:12→07:03)
[2021-07-18] MEDS: BUDESONIDE 0.5 MG/2 ML VIAL (PULMICORT) INH SCH ×2 (07:03→20:11)
--- NOTE | 2021-07-18 07:24 | Hospitalist Progress Note ---
Date of Service July 18, 2021 Assessment & Plan (1) Sepsis: Plan: Sepsis secondary to UTI and possible pulmonary involvement- pneumonia vs atelectasis - Zosyn 3.375 GM IV q8, urine shows > 100K gram negative two organisms, one is ecoli resistant to quinaloines - MRSA swab negative - Lacate not elevated, CRP mildly elevated , Procalcitonin significantly elevated -CT chest with small changes in left upper lobe and right lung apex, repeat CT recommended - Blood cultures pending - LFTS likely acute phase reactant- gallbladder is surgically absent (2) UTI (urinary tract infection): Plan: seems to be gram negative urine infection associated with sepsis on presentation, now resolving (3) Respiratory failure with hypercapnia: Plan: Secondary to encephalopathy and hypoventilation at this time - does not appear to be COPD exacerbation at this time - ABG with metabolic acidosis - Continue budesonide nebs, albuterol nebs, and albuterol HFA - Wean BiPAP as mental status improves (4) Encephalopathy: Plan: originally presumed related to her narcotic use, however her Urine tox is negative for opiates/benzo -presumed metabolic encephalopathy - Support respiratory acidosis - TSH and cortisol are normal - WBC normal, not chronically immunocompromised (5) Acidosis: Plan: inital respiratory acidodis based on VBG, no significant lactate and anion gap is 15 - lactate not elevated - Chloride 109 - Tylenol and salicylates normal - Serum osmo and urine osmo pending - Normosol at 100 ml per hour (6) Hyperkalemia: Plan: Likely related to acidosis with presenting PH at 7.16 - Normosol for now, could also consider using LR (as LR will actually also help lower K) - Correcting acidosis corrected potassium - Calcium gluc given in EMD -TSH and Cortisol appropriate (7) Abnormal chest xray: Plan: Atelectasis vs. Pneumonia - could also be residual/resolving from previous admission as this was left sided as well (8) Diabetes type 2, uncontrolled: Plan: Hold metformin Hold Jardiance - hyperglycemia glycemic management with basal bolus insulin (9) COPD (chronic obstructive pulmonary disease): Plan: Chronic - patient just completed course of steroids and abx for pneumonia/exacerbation (10) AAA (abdominal aortic aneurysm): Plan: Stable at 3.5x3.7 cm - maintain statin and BP control - BP medications on hold while NPO and until mentation improves Admission and Anticipated Discharge Date Admission Date: July 16, 2021 Subjective Patient initially demanded to go home but then rescinded. Were waiting for the second gram-negative organism sensitivities before we can use a home antibiotic. Her sepsis has resolved and otherwise she is doing well Review of Systems Review of Systems: Mild distress and fatigue no headache, no visual changes no speech or swallowing issues no chest pain, pressure or palpitations no shortness of breath, cough or wheezes no abdominal pain, nausea or vomiting, diarrhea or constipation now complaints of dysuria, but no hematuria or frequency no focal joint pain or swelling, but diffuse arthralgias return of daily lower back pain, CVA tenderness or radicular pain no bruising, bleeding or rashes no focal signs of weakness or numbness or altered sensation no complaints of anxiety or depression.. Physical Exam Physical Exam: The patient appeared well nourished and normally developed. Vital signs as documented. Head exam is normocephalic atraumatic Neck is without JVD, thyromegaly, or carotid bruits. Lungs are clear to auscultation, no focal loss of breath sounds Cardiac exam, Rhythm is regular.. No murmurs, rubs or gallops. Abdominal exam reveals normal bowel sounds, soft non tender, no masses Extremities are nonedematous and both pedal pulses are present Neurologic exam is alert and oriented, no focal loss of strength or sensation Skin is without bruises or rashes Psychologically is without concerns for anxiety or depression Results & Data Results & Data ([facility]) Vital Signs (Past 12 Hours) Vital Signs Temp Pulse Pulse Pulse Resp BP BP 07/18/21 07:04 97 H 20 07/18/21 06:59 98.1 F 87 16 130/66 07/18/21 04:38 97.5 F L 84 16 129/57 L 07/18/21 04:14 90 20 07/18/21 00:00 97.9 F 87 16 108/66 07/17/21 22:59 89 07/17/21 22:16 90 16 07/17/21 19:52 98.8 F 108 H 18 123/53 L 07/17/21 19:47 107 H 20 Pulse Ox 07/18/21 07:04 91 07/18/21 06:59 93 07/18/21 04:38 91 07/18/21 04:14 91 08/25/21 00:00 89 L 07/17/21 22:59 07/17/21 22:16 97 07/17/21 19:52 91 07/17/21 19:47 91 PG Care Time/CCT Total # of Minutes Spent Total Time Spent with Patient: Total time spent is greater than 50% in coordination of care (as documented) at patient's floor/unit and/or counseling patient: Coding Level of Care Code 88462 Subseq Hosp Care Lvl 2 Diagnoses Sepsis A41.9 UTI (urinary tract infection) N39.0 Respiratory failure with hypercapnia J96.92 Encephalopathy G93.40 Acidosis E87.2 Hyperkalemia E87.5 Abnormal chest xray R93.89 Diabetes type 2, uncontrolled E11.65 Glycemic state: with hyperglycemia COPD (chronic obstructive pulmonary disease) J44.9 AAA (abdominal aortic aneurysm) I71.4 (1) Diabetes type 2, uncontrolled Glycemic state: with hyperglycemia Qualified Code(s): E11.65 - Type 2 d iabetes mellitus with hyperglycemia
[2021-07-18] MEDS: oxyCODONE HCL IR 5 MG TAB (IMMEDIATE RELEASE) PO PRN ×3 (08:16→20:23)
[2021-07-18] MEDS: ATORVASTATIN 40 MG TAB PO SCH (08:17)
[2021-07-18] MEDS: predniSONE 20 MG TAB PO SCH (08:17)
[2021-07-18] MEDS: ASPIRIN 81 MG ECTAB PO SCH (08:17)
[2021-07-18] MEDS: carvediloL 12.5 MG TAB PO SCH ×2 (08:18→20:24)
[2021-07-18 08:45] LABS: Hematocrit (blood only) 29.6 % (37-47); Mean Corpuscular Hgb Conc 30.4 g/dL (32-36); Mean Corpuscular Volume 85.5 fL (80-100); Mean Platelet Volume 8.8 fL (7.4-10.4); Nucleated RBC # (auto) 0.03 K/uL (0-0); Nucleated RBC % (auto) 0.2 %; Platelet Count 571 K/uL (130-400); RDW Standard Deviation 62.7 fL (36.4-46.3); Red Blood Count 3.46 M/uL (4.2-5.4)
[2021-07-18 09:00] LABS: BUN Creatinine Ratio 26.8 (10-20); Calcium 9.2 mg/dl (8.5-10.1); Creatinine Clr Calc Pharmacy 61.4 ml/min; Est GFR (African American) 89.9 ml/min; Est GFR (Non-African American) 77.6 ml/min; Potassium 5.1 mmol/L (3.5-5.1)
[2021-07-18] MEDS ORDERED: INSULIN HUMAN NPH SC ONE (09:00)
--- NOTE | 2021-07-18 09:10 | Electrocardiogram Report ---
Test Reason : Blood Pressure : / mmHG Vent. Rate : 094 BPM Atrial Rate : 094 BPM P-R Int : 154 ms QRS Dur : 080 ms QT Int : 350 ms P-R-T Axes : 083 026 079 degrees QTc Int : 438 ms Sinus rhythm Low voltage QRS Borderline ECG When compared with ECG of 16-JUL-2021 14:11, (unconfirmed) No significant change Confirmed by Juice Caro ([id number]) on 07/18/2021 9:10:13 AM Referred By: REFERRED SELF Confirmed By:Juice Caro
--- NOTE | 2021-07-18 09:25 | Pharmacy Report ---
Pharmacy Glycemic Short Note 2 - Date of Service July 18, 2021 - Glycemic Short BSG Results (Last 24 hours): 07/17/21 07/17/21 07/17/21 10:23 12:04 16:02 Glucose 251 H POC Glucose 168 H 272 H 07/17/21 07/18/21 07/18/21 20:29 00:10 03:49 Glucose POC Glucose 330 H* 216 H 170 H 07/18/21 07/18/21 07:35 08:25 Glucose 224 H POC Glucose 184 H OUTPATIENT ANTIDIABETIC REGIMEN: * metformin 1000mg BID * Jardiance 10 mg PO daily * A1c: 8.3% 06-02-21 ASSESSMENT: 07/18 * BSGs elevated yesterday, 177, 168, 272, and 330 mg/dL * Steroids changed from Solu-medrol 40 mg IV q12h to prednisone 20 mg PO daily to start today * Will give NPH today with prednisone at 0.2 unit/kg, likely Lantus scale this evening * Novolog parameters tightened last evening - will continue 07/17 * Patient presenting for possible COPD exacerbation started on IV solumedrol likely experiencing some steroid induced hyperglycemia. * Patient was NPO but ordered a diet at lunchtime. Patient also received a half amp of D5W this morning, likely contributing to hyperglycemia. It appears the 251 mg/dL reading at 1200 may have been post prandial and thus I will not react to this. Will initiate once daily Lantus and continue with a moderate to severe stressed novolog scale. PLAN FOR INPATIENT GLYCEMIC CONTROL: * Hold outpatient oral diabetes medications * Basal insulin * NPH 14 units (0.2 unit/kg) SC daily with prednisone 20 mg * Lantus scale this evening to provide 0-10 units based on BSG (see EHR for details) * Bolus insulin * NovoLog per scale ACHS or Q6hrs while NPO * Goal Range: Low 110 mg/dL - High 140 mg/dL * Correction Factor: 25 mg/dL/unit * Nutritional / Prandial insulin per carb ratio of 1 unit per 8 grams CHO consumed PLAN FOR DISCHARGE: * HbA1c of 8.3% is above goal for patient * Reasonable goal would be less than 7% for this patient * Continue metformin and Jardiance * Consider initiation of third oral agent such as a sulfonylurea (i.e. glipizide) or dipeptidyl peptidase 4 (DPP-4) inhibitor (i.e. sitagliptin, linagliptin, etc.) * Sulfonylurea would likely be most cost-effective option, DPP-4 inhibitor would have decreased risk of hypoglycemia
[2021-07-18] MEDS: cefTRIAXone SODIUM 2,000 MG in DEXTROSE 5% 50 ML IV SCH (12:09)
[2021-07-18] MEDS: MoRPHine SULFATE 2 MG/ML CARP IV PRN ×2 (12:13→17:09)
--- NOTE | 2021-07-18 15:46 | Electrocardiogram Report ---
Test Reason : Blood Pressure : / mmHG Vent. Rate : 172 BPM Atrial Rate : 172 BPM P-R Int : 000 ms QRS Dur : 084 ms QT Int : 182 ms P-R-T Axes : 074 020 071 degrees QTc Int : 307 ms Sinus rhythm Low voltage QRS Possible Inferior infarct , age undetermined Cannot rule out Anterior infarct , age undetermined Abnormal ECG When compared with ECG of 31-MAY-2021 21:48, No significant change Confirmed by Juice Caro ([id number]) on 07/18/2021 3:46:33 PM Referred By: REFERRED SELF Confirmed By:Juice Caro
--- NOTE | 2021-07-18 16:35 | Electrocardiogram Report ---
Test Reason : Blood Pressure : / mmHG Vent. Rate : 098 BPM Atrial Rate : 098 BPM P-R Int : 154 ms QRS Dur : 084 ms QT Int : 334 ms P-R-T Axes : 076 036 074 degrees QTc Int : 426 ms Normal sinus rhythm Normal ECG When compared with ECG of 17-JUL-2021 05:41, No significant change was found Confirmed by Juiec Caro ([id number]) on 07/18/2021 4:35:12 PM Referred By: REFERRED SELF Confirmed By:Juice Caro
[2021-07-18] MEDS: ENOXAPARIN INJ 40 MG/0.4 ML SYR SQ SCH (20:24)
[2021-07-18] MEDS ORDERED: INSULIN GLARGINE SOLOSTAR 100 UNITS/ML 3 ML PEN SC SCH (21:00)
[2021-07-19] MEDS: MoRPHine SULFATE 2 MG/ML CARP IV PRN (04:39)
[2021-07-19] MEDS: ALBUT/IPRATROP 3MG/0.5MG NEB 3 ML VIAL INH PRN ×2 (04:56→11:09)
[2021-07-19] MEDS: BUDESONIDE 0.5 MG/2 ML VIAL (PULMICORT) INH SCH (07:09)
[2021-07-19] MEDS: ASPIRIN 81 MG ECTAB PO SCH (08:04)
[2021-07-19] MEDS: ATORVASTATIN 40 MG TAB PO SCH (08:05)
[2021-07-19] MEDS: predniSONE 20 MG TAB PO SCH (08:05)
[2021-07-19] MEDS: oxyCODONE HCL IR 5 MG TAB (IMMEDIATE RELEASE) PO PRN (08:05)
[2021-07-19] MEDS: carvediloL 12.5 MG TAB PO SCH (08:05)
[2021-07-19] MEDS: INSULIN ASPART 100 UNITS/ML 3 ML PEN SC SCH ×2 (08:07→12:00)
--- NOTE | 2021-07-19 08:28 | Pharmacy Report ---
Pharmacy Glycemic Short Note 2 - Date of Service July 19, 2021 - Glycemic Short BSG Results (Last 24 hours): 07/18/21 07/18/21 07/18/21 08:25 11:38 16:24 Glucose 224 H POC Glucose 182 H 228 H 07/18/21 07/19/21 20:11 07:53 Glucose POC Glucose 217 H 143 H OUTPATIENT ANTIDIABETIC REGIMEN: * metformin 1000mg BID * Jardiance 10 mg PO daily * A1c: 8.3% 06-02-21 ASSESSMENT: 07/19 * BSGs mildly improved yesterday, 184, 182, 228, and 217 mg/dL * Continues on prednisone 20 mg PO daily to start today * Will increase NPH today ~20% * Will further tighten Novolog parameters given elevated BSGs throughout the day 07/17 * Patient presenting for possible COPD exacerbation started on IV solumedrol likely experiencing some steroid induced hyperglycemia. * Patient was NPO but ordered a diet at lunchtime. Patient also received a half amp of D5W this morning, likely contributing to hyperglycemia. It appears the 251 mg/dL reading at 1200 may have been post prandial and thus I will not react to this. Will initiate once daily Lantus and continue with a moderate to severe stressed novolog scale. PLAN FOR INPATIENT GLYCEMIC CONTROL: * Hold outpatient oral diabetes medications * Basal insulin - increase NPH * NPH 16 units SC daily with prednisone 20 mg * Lantus scale this evening to provide 0-10 units based on BSG (see EHR for details) * Bolus insulin - tighten * NovoLog per scale ACHS or Q6hrs while NPO * Goal Range: Low 110 mg/dL - High 140 mg/dL * Correction Factor: 20 mg/dL/unit * Nutritional / Prandial insulin per carb ratio of 1 unit per 7 grams CHO consumed PLAN FOR DISCHARGE: * HbA1c of 8.3% is above goal for patient * Reasonable goal would be less than 7% for this patient * Continue metformin and Jardiance * Consider initiation of third oral agent such as a sulfonylurea (i.e. glipizide) or dipeptidyl peptidase 4 (DPP-4) inhibitor (i.e. sitagliptin, linagliptin, etc.) * Sulfonylurea would likely be most cost-effective option, DPP-4 inhibitor would have decreased risk of hypoglycemia
[2021-07-19] MEDS ORDERED: INSULIN HUMAN NPH SC SCH (09:00)
[2021-07-19 09:33] LABS: BUN Creatinine Ratio 29.4 (10-20); Calcium 8.7 mg/dl (8.5-10.1); Creatinine Clr Calc Pharmacy 66.6 ml/min; Est GFR (Non-African American) 85.4 ml/min; Potassium 4.3 mmol/L (3.5-5.1)
[2021-07-19] MEDS: cefTRIAXone SODIUM 2,000 MG in DEXTROSE 5% 50 ML IV SCH (11:44)
--- NOTE | 2021-07-19 18:39 | Discharge Summary ---
Date of Service July 19, 2021 Admission HPI Per Admitting Provider 71 YOF with past medical history of : COPD, Syncope, encephalopathy, PNA, DMII, HTN, HLD, CKD, AAA. Patient arrives to the EMD today for alteration in mental status. The reports that she was taking care of him over the past 2 nights, got up this morning went and had morning coffee and took her medications and then she just laid her head on the table and he had a hard time waking her up. The patient came to the EMD and on initial presentation was noted to be hypercarbic, acidotic, and hyperkalemic. She recieved a dose of Narcan as she is on oxycodone 5mg at home, which she reportedly increased her mentation and was placed on BiPAP 12/5 with her VT ranging 400-700 and RR in the 20-30 with appropriate SPo2. Patient also had a CT scan of the head performed that was negative for acute process. She had a UA done that does show likely infection and budding yeast. CTA of the chest negative for PE but possible pneumonia vs. atelectasis. Patient has multiple admissions in the past for same presentation with infectious etiology, most recent was in May 2021, where she was treated with Left lower lobe pneumonia, and UTI. Previous UTI was klebsiella diaz sensitive. Her bicarbonate level is normal at this time. Lactate and other bio-markers are pending. Patient will be admitted for sepsis. Transfer to ICU for continued pulmonary support and mental status monitoring. Principal Diagnosis Sepsis secondary to urinary tract infection present on admission Discharge Exam The patient appeared conically ill Vital signs as documented. Lungs are clear to auscultation but diminished and poor air movement likely underlying chronic lung disease Cardiac exam, Rhythm is regular.. No murmurs, rubs or gallops. Abdominal exam reveals normal bowel sounds, soft non tender, no masses Extremities are nonedematous and both pedal pulses are normal. Neurologic exam is alert and oriented, no focal loss of strength or sensation Skin is without bruises or rashes Psychologically is without concerns for anxiety or depression. Discharge Data Allergies Allergy/AdvReac Type Severity Reaction Status Date / Time diflunisal Allergy Unknown HEART RACES Verified 05/30/21 15:33 Consultations 07/16/21 18:21 ED Decision to Admit Stat 07/16/21 20:52 Consult Channel Supervisor Routine Ordered Studies 07/16/21 13:30 CT abd pelvis IV con only Stat CT head/brain wo con Stat 07/16/21 15:09 CT angio chest PE protocol Stat Hospital Course (1) Sepsis: Sepsis secondary to UTI and possible pulmonary involvement- pneumonia vs atelectasis - Zosyn 3.375 GM IV q8, urine shows > 100K gram negative two organisms, both are E. coli we will discharged on Bactrim therapy - MRSA swab negative - Lacate not elevated, CRP mildly elevated , Procalcitonin significantly elevated -CT chest with small changes in left upper lobe and right lung apex, repeat CT recommended 11 lung nodule clinic - Blood cultures pending at time of discharge - LFTS likely acute phase reactant- gallbladder is surgically absent Did arrange for short-term follow-up in [facility] (2) UTI (urinary tract infection): seems to be gram negative urine infection associated with sepsis on presentation, now resolving (3) Respiratory failure with hypercapnia: Secondary to encephalopathy and hypoventilation subsequently has been resolved - does not appear to be COPD exacerbation at this time - ABG with metabolic acidosis - Continue budesonide nebs, albuterol nebs, and albuterol HFA (4) Encephalopathy: originally presumed related to her narcotic use, however her Urine tox is negative for opiates/benzo -presumed metabolic encephalopathy secondary to gram-negative infection - TSH and cortisol are normal - WBC normal, not chronically immunocompromised (5) Acidosis: inital respiratory acidodis based on VBG, no significant lactate and anion gap is 15 - lactate not elevated - Chloride 109 - Tylenol and salicylates normal (6) Hyperkalemia: Likely related to acidosis with presenting PH at 7.16 - Correcting acidosis corrected potassium -TSH and Cortisol appropriate (7) Abnormal chest xray: Atelectasis vs. Pneumonia - could also be residual/resolving from previous admission as this was left sided as well recommend outpatient repeat CT scan will consult lung nodule program (8) Diabetes type 2, uncontrolled: And Jardiance (9) COPD (chronic obstructive pulmonary disease): Chronic - patient just completed course of steroids and abx for pneumonia/exacerbation (10) AAA (abdominal aortic aneurysm): Stable at 3.5x3.7 cm - maintain statin and BP control Total Time Total Time Spent Total Time Spent (In Minutes): It required greater than 30 minutes to prepare this patient for discharge Discharge Plan Discharge Items Patient Disposition: Home - Home Health Services Reason For Visit: ENCEPHOLOPATHY Discharge Diagnosis: sepsis urinary tract infection Activity: Per Instructions section Activity Comment: good hydation and slowly increase activity Non-emergency contact: Primary Care Provider Call non-emergency contact if: you have any medication questions and you have a fever Follow-up/Referrals: Karo Champagne CRNP [Primary Care Provider] - 07/25/21 9:20 am Diet: Regular Addtl Attending Provider Instructions: you had a very serious urinary tract infection on admission with sepsis please complete all of your antibiotics, and follow up with a doctors office next week you have an appointment 07/25 at 920 Pending Studies at Discharge: Yes Stand-Alone Forms: My Merku, Smoking Cessation Medications and DC Order Prescriptions: New sulfamethoxazole-trimethoprim [Bactrim DS] 800-160 mg tablet 1 tab PO BID Qty: 10 RF: 0 Continued ipratropium-albuterol 0.5 mg-3 mg(2.5 mg base)/3 mL solution for nebulization 3 ml INHALATION QID PRN (Reason: Shortness Of Breath Or Wheezing) RF: 0 atorvastatin 40 mg tablet 40 mg PO DAILY RF: 0 carvedilol 12.5 mg tablet 12.5 mg PO BID RF: 0 budesonide 0.5 mg/2 mL suspension for nebulization 0.5 mg inhalation BID RF: 0 diltiazem HCl [Cartia XT] 120 mg capsule,extended release 24hr 120 mg PO DAILY RF: 0 aspirin [Aspirin Low Dose] 81 mg Tablet,Delayed Release (Dr/Ec) 81 mg PO DAILY RF: 0 albuterol sulfate 90 mcg/actuation HFA aerosol inhaler 2 puff INHALATION Q6 PRN (Reason: Shortness Of Breath Or Wheezing) RF: 0 metformin 1,000 mg tablet 1,000 mg PO BID RF: 0 Jardiance 10 mg tablet 10 mg PO DAILY RF: 0 oxycodone 5 mg tablet 5 mg PO TID PRN (Reason: Pain) RF: 0 polyethylene glycol 3350 [Miralax] 17 gram powder in packet 17 g PO BID PRN (Reason: Constipation) RF: 0 ondansetron HCl [Zofran] 4 mg tablet 4 mg PO Q6H PRN (Reason: nausea and vomiting) Qty: 6 RF: 0 (DME) blood-glucose meter [OneTouch Verio Meter] Misc See Rx Instructions .ROUTE .MEDSUPPLY Qty: 1 RF: 0 (DME) OneTouch Verio test strips Strip See Rx Instructions .ROUTE .MEDSUPPLY Qty: 50 RF: 3 (DME) lancets [OneTouch Delica Lancets] 33 gauge misc See Rx Instructions .ROUTE .MEDSUPPLY Qty: 100 RF: 3 Discontinued losartan 50 mg tablet 50 mg PO DAILY RF: 0 Discharge Orders: Discharge Order (Routine); Ordered 07/19/21 Ordered By: Marcelo Witt Admission Data Admit Date/Time: 07/16/21 18:52 Attending Provider: Marcelo Witt Admit Provider: Epi Ernst Primary Care Provider: Karo Champagne Other Providers: Epi Ernst ; Javed Euceda Other Interventions: Discharge Summary Assessment (RN) Last Done: 07/19/21 10:01 Coding Level of Care Code D/C DAY MANAGEMENT >30 MINS Diagnoses Sepsis A41.9 UTI (urinary tract infection) N39.0 Respiratory failure with hypercapnia J96.92 Encephalopathy G93.40 Acidosis E87.2 Hyperkalemia E87.5 Abnormal chest xray R93.89 Diabetes type 2, uncontrolled E11.65 Glycemic state: with hyperglycemia COPD (chronic obstructive pulmonary disease) J44.9 AAA (abdominal aortic aneurysm) I71.4
== END 2021-07-19 13:25 | disposition home health service (06) | DRG 871 ==
LOC: ED 13:09 → SUATTDRO 18:52 → 1E 18:52 → 2W 07-17 17:00

== ENCOUNTER 2021-07-29 02:02 | Inpatient (IN) ==
[2021-07-29] MEDS ORDERED: ALBUT/IPRATROP 3MG/0.5MG NEB 3 ML VIAL NEB ONE (02:55)
[2021-07-29] MEDS ORDERED: methylPREDNISolone 125 MG/2 ML VIAL IV STA (02:55)
[2021-07-29 03:04] LABS: Partial Thromboplastin Time 26.7 Seconds (21.0-31.0); Prothrombin Time 10.3 Seconds (9.0-12.0)
[2021-07-29 03:21] LABS: Alanine Aminotransferase 27 U/L (12-78); Albumin Globulin Ratio 0.9 (0.9-2); Albumin Level 2.9 gm/dl (3.4-5.0); Alkaline Phosphatase 93 U/L (45-117); Anion Gap 0 (3-11); Aspartate Aminotransferase 14 U/L (15-37); Bilirubin,Total 0.2 mg/dl (0.2-1); Blood Urea Nitrogen 22 mg/dl (7-18); Carbon Dioxide 29 mmol/L (21-32); Chloride 106 mmol/L (98-107); Est GFR (African American) 41.8 ml/min; Globulin 3.4 gm/dl (2.5-4.0); Glucose 103 mg/dl (70-99); Potassium 6.3 mmol/L (3.5-5.1); Sodium 135 mmol/L (136-145); Total Protein 6.3 gm/dl (6.4-8.2); Troponin I < 0.015 ng/ml (0-0.045)
[2021-07-29 03:32] LABS: iSTAT Arterial Blood Gas HCO3 34 meg/L (19-24); iSTAT Arterial Blood Gas pCO2 69 mmHg (35-46); iSTAT Arterial Blood Gas pH 7.29 (7.35-7.45); iSTAT Arterial Blood Gas pO2 59 mmHg (80-95); iSTAT Carbon Dioxide 36 mmol/L (24-31); iSTAT Hematocrit 28 % (37-47); iSTAT Hemoglobin 9.5 g/dl (12.0-16.0); iSTAT Potassium 6.3 mmol/L (3.3-5.0); iSTAT Sodium 137 mmol/L (135-144)
[2021-07-29 03:49] LABS: Basophils # (auto) 0.05 K/uL (0-0.2); Basophils % (auto) 0.6 %; Hematocrit (blood only) 30.4 % (37-47); Hemoglobin 8.7 g/dL (12.0-16.0); Immature Granulocytes # (auto) 0.05 K/uL (0.00-0.02); Immature Granulocytes % (auto) 0.6 %; Lymphocytes # (auto) 1.73 K/uL (1.2-3.4); Lymphocytes % (auto) 21.4 %; Mean Corpuscular Hemoglobin 26.2 pg (25-34); Mean Corpuscular Hgb Conc 28.6 g/dL (32-36); Mean Corpuscular Volume 91.6 fL (80-100); Mean Platelet Volume 9.6 fL (7.4-10.4); Monocytes % (auto) 8.7 %; Neutrophils # (auto) 5.15 K/uL (1.4-6.5); Neutrophils % (auto) 63.7 %; Platelet Count 519 K/uL (130-400); RDW Coefficient of Variation 19.4 % (11.5-14.5); Red Blood Count 3.32 M/uL (4.2-5.4); White Blood Count 8.08 K/uL (4.8-10.8)
[2021-07-29 04:29] LABS: Appearance Urine Clear (Clear); Bacteria Urine Automated 1+ (Negative); Bilirubin Urine Negative (Negative); Blood Urine Negative (Negative); Color Urine Dark Yellow; Epithelial Cell Urine Auto 20-30 /lpf (0-5); Glucose Urine UA 2+ (Negative); Ketones Urine Trace (Negative); Leukocyte Esterase Urine 1+ (Negative); Nitrite Urine Negative (Negative); Protein Urine Trace (Negative); Specific Gravity Urine 1.025 (1.000-1.030); Urobilinogen Urine Negative (Negative); WBC Urine Automated >30 /hpf (0-5); pH Urine 5.5 (4.5-7.5)
[2021-07-29] MEDS ORDERED: DEXTROSE 50% 50 ML SYRINGE IV STA (04:38)
[2021-07-29] MEDS ORDERED: NALOXONE HCL 0.4 MG/1 ML VIAL/CARP IV STA (04:38)
[2021-07-29 04:53] LABS: RBC Urine Automated 0-4 /hpf (0-4)
[2021-07-29] MEDS ORDERED: ACETAMINOPHEN 1000 MG/100 ML IV IV STA (05:04)
[2021-07-29] MEDS ORDERED: CALCIUM GLUCONATE 1000 MG/60 ML NSS IV ONE (05:10)
[2021-07-29] MEDS ORDERED: CALCIUM GLUCONATE 10% 1,000 MG in SODIUM CHLORIDE 0.9% 50 ML IV ONE (05:10)
[2021-07-29] MEDS ORDERED: INSULIN HUMAN REGULAR PER UNIT 10 UNITS in SYRINGE 9.9 ML IV ONE (05:15)
--- NOTE | 2021-07-29 05:20 | History & Physical Report ---
Date of Service July 29, 2021 Assessment & Plan (1) Acute on chronic respiratory failure with hypoxemia: Plan: Patient is a 71 year old female with PMHx COPD, DMII, HTN, HLD, CKD, AAA that presents via EMS for altered mental status, unwitnessed fall from home, and shortness of breath, found to be hypoxemic at 82% in the ED. Acute on chronic respiratory failure with hypoxemia, suspect secondary to opioid use -AMS likely secondary to hypercarbia and metabolic encephalopathy -O2 at 82% on arrival to ED, saturating >95% on admission while on bipap 10/29 -Continue Bipap PRN -Will give one dose of naloxone now -ABG on admission pH 7.29, CO2 69, Bicarb 34 -Repeat ABG in 4 hours -Hold further narcotics at this time AMS with fall -Suspect secondary to above in addition to possible metabolic effects from UTI -Naloxone now -Ceftriaxone for UTI -CK level ordered Suspected UTI -With history of multiple UTI's most recent with Klebsiella and E. Coli -Will treat empirically with CTX 2g daily -Await culture results for organism and sensitivities Hyperkalemia -Potassium 6.3 on admission -EKG without significantly peaked t waves at this time -Will give Calcium gluconate and Insulin with Dextrose -Repeat BMP in 4 hours TATY on CKD -Creatinine mildly elevated 1.47 -Will give NSS 125 ml/hr x1L COPD -Received Duoneb treatment and Methylprednisolone IV 125mg in ED -Continue Methylprednisolone 60mg IV BID -Duoneb q4h scheduled and q2h PRN for worsening SOB -Continue Pulmicort Respules BID Hypertension -Continue home diltiazem -Continue home carvedilol -Continue home lipitor -Continue home ASA DM2 -SSI and basal bolus while inpatient -Hold metformin and januvia -Pharm glycemic consult while on steroids Dispo: PCU for close monitoring of respiratory status FEN: NPO, NSS 125ml/hr x1L DVT: SCDs Code: Full (2) COPD (chronic obstructive pulmonary disease): (3) UTI (urinary tract infection): (4) Diabetes type 2, uncontrolled: (5) Hyperkalemia: History of Present Illness Chief Complaint: Altered mental status Primary Care Provider: BRET Bull Patient is a 71 year old female with PMHx COPD, DMII, HTN, HLD, CKD, AAA that presents via EMS for altered mental status, unwitnessed fall from home, and shortness of breath, found to be hypoxemic at 82% in the ED. Patient has had multiple admission for similar instances with the most recent hospital stay being on 07/16-07/19/21. Patient at this time relatively somnolent on bipap, but arousable to yes or no questions before needing to be restimulated. Patient able to disclose that she had been more short of breath at home and that was the reason she had been feeling more weak. She denies any recent illness since her last discharge. She denies any fever, chills, chest pain, chest pressure, abdominal pain. Med Hx: COPD, DMII, HTN, HLD, CKD, AAA Surg Hx: Hysterectomy, appendectomy, cholecystectomy Allergies Allergy/AdvReac Type Severity Reaction Status Date / Time diflunisal Allergy Unknown HEART RACES Verified 07/29/21 02:41 Home Medications Medication Instructions Recorded Confirmed Type albuterol sulfate 90 mcg/actuation 2 puff INHALATION Q6 PRN 08/28/20 07/29/21 History aerosol inhaler aspirin 81 mg tablet,delayed 81 mg PO DAILY 08/28/20 07/29/21 History release (Aspirin Low Dose) atorvastatin 40 mg tablet 40 mg PO DAILY 08/28/20 07/29/21 History budesonide 0.5 mg/2 mL suspension 0.5 mg INHALATION BID 08/28/20 07/29/21 History for nebulization carvedilol 12.5 mg tablet 12.5 mg PO BID 08/28/20 07/29/21 History diltiazem HCl 120 mg 120 mg PO DAILY 08/28/20 07/29/21 History capsule,extended release 24 hr (Cartia XT) empagliflozin 10 mg tablet 10 mg PO DAILY 08/28/20 07/29/21 History (Jardiance) metformin 1,000 mg tablet 1,000 mg PO BID 08/28/20 07/29/21 History ipratropium 0.5 mg-albuterol 3 mg 3 ml INHALATION QID PRN 09/25/20 07/29/21 History (2.5 mg base)/3 mL nebulization soln ondansetron HCl 4 mg tablet 4 mg PO Q6H PRN #6 tab 05/13/21 07/29/21 Rx (Zofran) oxycodone 5 mg tablet 5 mg PO TID PRN 05/13/21 07/29/21 History polyethylene glycol 3350 17 gram 17 g PO BID PRN 05/13/21 07/29/21 History oral powder packet (Miralax) blood sugar diagnostic (OneTouch #50 ea 06/02/21 Rx Verio test strips) blood-glucose meter (OneTouch #1 ea 06/02/21 Rx Verio Meter) lancets 33 gauge (OneTouch Delica #100 ea 06/02/21 Rx Lancets) Past Med/Surg History Medical History AAA (abdominal aortic aneurysm) Acute hypotension Acute UTI Chronic low back pain COPD exacerbation Diabetes type 2, uncontrolled Diaphragmatic hernia (10/31/11) History of knee replacement Left peroneal nerve palsy Syncope Surgical History H/O Achilles tendon repair (~2007) H/O: hysterectomy History of appendectomy History of bilateral oophorectomies History of lithotripsy (~2007) Hx of cholecystectomy Family History Other Family history non-contributory Social History Smoking Status: Current every day smoker Tobacco Type: Cigarettes Second Hand Exposure: No; Hx Alcohol Use: No Hx Substance Use: No Preferred Language: Guyanese Communication Ability: Effective Driver Recruiter Required: No Beliefs That Will Affect Care: None marital status: Current Living Situation: Spouse Other Information That Helps Us Care for You: No Feels Safe at Home: Yes Assistive Devices: Oxygen - Continuous Review of Systems Review of Systems: Unobtainable due to reduced consciousness Physical Exam Constitutional: well developed, well nourished and + ill appearing Somnolent appearing, but arousable Eyes: PERRL ENMT: external ear and nose normal, oropharynx normal Neck: trachea midline, no thyromegaly Respiratory: + abnormal respiratory effort (On bipap 12/6 ) Auscultation: + diminished lung sounds and + wheezes Cardiovascular: Rate/Rhythm: regular rate and regular rhythm Heart Sounds: no murmur Gastrointestinal (Abdomen): normal bowel sounds, soft, nontender, no hepatosplenomegaly Musculoskeletal: Head/Neck/Chest: normocephalic and head atraumatic Skin: + rash (R lower limb ) Neurologic: moves all extremities and + obtunded Psychiatric: Orientation: oriented to person Eye Contact: + poor eye contact Results & Data Results & Data ([place]) Vital Signs (Past 12 Hours) Vital Signs Temp Pulse Pulse Resp BP BP Pulse Ox 07/29/21 04:27 70 21 129/57 L 94 07/29/21 04:08 74 20 98 07/29/21 03:59 37.1 C 68 20 129/57 L 98 07/29/21 03:36 70 23 114/65 95 07/29/21 03:13 70 22 93 07/29/21 02:09 146 H 13 121/59 L 96 07/29/21 02:05 37.5 C 110 H 121/59 L 95 07/29/21 02:00 95 07/29/21 01:59 82 L Code Status & VTE Plan VTE Prophylaxis Plan VTE Prophylaxis will be ordered: Yes Supervising Physician Co-Signing Physician Notes Attending addendum: I have physically seen this patient, have supervised the medical residents activities, and agree with the H&P unless as otherwise noted. Assessment and Plan: Acute on chronic respiratory failure with hypoxia and hypercapnia- Continue BiPAP, titrating downward as symptoms improve AB.2 /-repeat in 4-hours Issues with worsening respiratory failure likely secondary to excessive narcotic use Altered mental status/decreased responsiveness- Improved significantly after ministration of naloxone IV. Patient had similar issue during last admission Would avoid narcotics in this patient Urinary tract infection- History of Klebsiella and E. coli Continue ceftriaxone 2 g IV daily Follow urine culture and sensitivities Remaining orders and notations as noted Resident Activity Tracking Resident Involvement: Resident Care Provided Care Provided: Adult Hospital Medicine (1) Diabetes type 2, uncontrolled Glycemic state: with hyperglycemia Qualified Code(s): E11.65 - Type 2 diabetes mellitus with hyperglycemia
[2021-07-29] MEDS: SODIUM CHLORIDE 0.9% 1000ML 1,000 ML IV SCH ×2 (05:29→12:42)
[2021-07-29] MEDS ORDERED: GLUCAGON FOR INJ 1 MG VIAL SQ PRN (06:21)
[2021-07-29] MEDS ORDERED: DEXTROSE 50% 50 ML SYRINGE IV PRN ×2 (06:21→06:45)
[2021-07-29] MEDS ORDERED: cefTRIAXone SODIUM 2,000 MG in DEXTROSE 5% 50 ML IV SCH (06:21)
[2021-07-29] MEDS ORDERED: GLUCOSE 10 TABS/TUBE PO PRN ×2 (06:21→06:45)
[2021-07-29] MEDS ORDERED: PHARMACY GLYCEMIC MGMT CONSULT PRN (06:21)
[2021-07-29] MEDS ORDERED: CARBOHYDRATES FOR HYPOGLYCEMIA PO PRN ×2 (06:21→06:45)
[2021-07-29] MEDS ORDERED: GLUCOSE 40% GEL 15 GM TUBE PO PRN ×2 (06:21→06:45)
[2021-07-29] MEDS ORDERED: GLUCAGON FOR INJ 1 MG VIAL IM PRN (06:45)
[2021-07-29 06:47] LABS: Creatine Kinase 27 U/L (26-192)
--- NOTE | 2021-07-29 07:07 | XRay Report ---
XR chest 1V portable CLINICAL HISTORY: SEPSIS COMPARISON STUDY: Chest CT July 16, 2021. Chest radiograph July 17, 2021. FINDINGS: Lung volumes are normal. There is minimal left basilar opacity. There is no pneumothorax or pleural effusion. Cardiac size is normal. Mediastinal contours are normal. There is no evidence for pulmonary edema. IMPRESSION: Minimal left basilar opacity which may reflect atelectasis or an infectious process. ACT 112: Negative or not required by law. Electronically signed by: Cheng Arevalo M.D. 07/29/2021 7:06 AM
[2021-07-29 07:15] LABS: BUN Creatinine Ratio 15.5 (10-20); Calcium 9.1 mg/dl (8.5-10.1); Creatinine Clr Calc Pharmacy 32.2 ml/min; Est GFR (African American) 40.8 ml/min; Est GFR (Non-African American) 35.2 ml/min; Potassium 5.5 mmol/L (3.5-5.1)
[2021-07-29] MEDS: BUDESONIDE 0.5 MG/2 ML VIAL (PULMICORT) INH SCH ×2 (07:17→19:12)
[2021-07-29] MEDS: ALBUT/IPRATROP 3MG/0.5MG NEB 3 ML VIAL NEB SCH ×4 (07:17→19:12)
[2021-07-29] MEDS ORDERED: INSULIN ASPART 100 UNITS/ML 3 ML PEN SC SCH ×2 (07:30)
--- NOTE | 2021-07-29 07:35 | Electrocardiogram Report ---
Test Reason : Blood Pressure : / mmHG Vent. Rate : 073 BPM Atrial Rate : 073 BPM P-R Int : 168 ms QRS Dur : 072 ms QT Int : 198 ms P-R-T Axes : 063 055 077 degrees QTc Int : 218 ms Poor data quality, interpretation may be adversely affected Normal sinus rhythm Confirmed by Lion Diego ([id number]) on 07/29/2021 7:34:59 AM Referred By: REFERRED SELF Confirmed By:Yvan Diego
--- NOTE | 2021-07-29 07:41 | Hospitalist Progress Note ---
Date of Service July 29, 2021 Assessment & Plan (1) Acute on chronic respiratory failure with hypoxemia: Plan: 71yo female with COPD, DM2, HTN, HLD, CKD, and AAA presents with SOB, hypoxemia, AMS, and an unwitnessed ground-level fall at home. [id number] respiratory failure with hypoxemia, COPD exacerbation Likely multifactorial including COPD exacerbation, pneumonia, respiratory depression secondary to opioid use On arrival, patient was somnolent and satting 82%; mental status improved with narcan, oxygenation improved with bipap ABG on admission pH 7.29, CO2 69, bicarb 34, repeat six hours later with minimal change pH 7.29, CO2 64, bicarb 30 Unclear why ABG showed very little improvement with bipap; repeat VBG ordered CXR with evidence of pneumonia, no fluid overload Continue methylprednisolone IV Continue ceftriaxone (started for UTI), added azithromycin 500mg IV x3 days Continue bipap Duonebs q4h scheduled and q2h prn Continue pulmicort respules bid If patient fails to improve, consider CT chest Hyperkalemia Potassium 6.3 on admission in the setting of recent course of bactrim Received calcium gluconate and insulin with dextrose on admission EKG without concerning changes at this time Has fluctuated since admission; currently 5.7 Patient on albuterol for COPD, insulin for DM2; patient given miralax on 07/29 If potassium worsens or if patient develops EKG changes consistent with hyperkalemia: Give an amp of dextrose along with 10u insulin Bolus 1L IVF and give lasix 40mg IV Give a dose of patiromer Trend BMP q4h Fall Per EMS note, patient fell out of kitchen chair, though this was unwitnessed; "patient stated that she was uninjured and just needed help getting up" Cause of fall likely multifactorial including AMS due to hypercarbia, opioid use CK wnl No head imaging done on arrival but patient continues to be without focal neurologic symptoms; continue serial exams TATY on CKD Baseline creatinine ~0.6, elevated to 1.47 on admission Improved to 1.3 with 1L NSS Avoid nephrotoxins, encourage PO intake Trend BMP Bacteriuria Patient with history of multiple UTI's, most recently Klebsiella and E. coli Afebrile, no leukocytosis, no urinary symptoms UA with leuk esterase, WBCs but also epithelial cells; urine, blood cultures pending No intervention likely indicated although patient is already on ceftriaxone DM2 HbA1c 8.3% (06/02/21) Patient's home regimen held on admission Glycemic consult placed given steroids Continue BSG checks, sliding-scale insulin, hypoglycemic protocol Hypertension Continue home diltiazem, carvedilol, lipitor, ASA Anemia Hgb 8.7 on admission, appears to be in overall chronic decline over past year or two MCV 91.6, RDW elevated Anemia labs ordered (iron, ferritin, transferrin, %sat, B12, folate) Patient has never had colonoscopy; recommend on outpatient basis FEN: carb-consistent diet Code status: full code DVT ppx: lovenox PT/OT: ordered Dispo: PCU telemetry for close monitoring of respiratory status (2) COPD (chronic obstructive pulmonary disease): (3) UTI (urinary tract infection): (4) Diabetes type 2, uncontrolled: (5) Hyperkalemia: Admission and Anticipated Discharge Date Admission Date: July 29, 2021 Supervising Physician Co-Signing Physician Notes I personally examined the patient and verified all [place] points of history and exam, discussed case, and agree with decision making with Dr Aguilar Somewhat sleepy. On BiPAP, awakens to loud voice and is conversational, but generally when left unprovoked she starts to drift off fairly quickly. Denies any chest pain or dyspnea. Notes that she was feeling a bit worse over the last 3 to 4 days before admission. Notes that she fell out of a chair (relates maybe she tripped) as far as why EMS was called. Vitals noted, in general she is sleepy on BiPAP but awakens. Appears in no distress. HEENT normocephalic atraumatic mucous membranes moist. Lungs are markedly diminished throughout, somewhat difficult exam. No rales rhonchi or wheezes. No accessory muscle use. No focal neuro deficits. Skin without rashes, pallor, icterus. Hypercapnic respiratory failureseems most consistent with a COPD exacerbation. There was a degree of concern about narcotics, given her response to Narcan, not entirely clear how that may play a role continue to manage as COPD exacerbation, follow closely, gather collateral story as possible. Zithromax/Rocephin due to potential left lower lobe infiltrate noted on chest x-ray. Steroids, pulmonary toilet/nebs. Acute kidney injuryIV fluids. Is improving. Hyperkalemiaprobably Bactrim/A KI relatedfortunately EKG is not worrisome. Continue to managefluids, insulin, beta agonist, MiraLAX. Continue to follow closely. If EKG changeswould manage even more aggressively. Subjective Patient seen and evaluated at bedside this morning. Patient is sleepy but arousable, and readily answers questions. This morning, she feels well and reports her breathing feels much better. She says she does remember the events that brought her in. When asked how she fell, says she thinks she tripped. Denies pain. Patient has no concerns at this time. Patient denies nausea, vomiting, lightheadedness, dizziness, and diarrhea. Review of Systems Review of Systems: See HPI Physical Exam Physical Exam: Constitutional: sleepy but well-appearing, no distress HEENT: NCAT, MMM CV: regular rhythm, no murmur appreciated, extremities well-perfused Resp: diminished lung sounds, on bipap, mild expiratory wheezes throughout Neuro: AOx4, no focal neurological deficits appreciated Psych: cooperative, pleasant Results & Data Results & Data ([facility]) Vital Signs (Past 12 Hours) Vital Signs Temp Pulse Pulse Pulse Resp BP BP 07/29/21 07:38 36.5 C 73 16 138/60 07/29/21 07:22 96 H 86 20 07/29/21 06:22 36.5 C 61 30 H 07/29/21 06:21 07/29/21 05:09 93 H 34 H 07/29/21 05:01 94 H 28 H 169/67 H 07/29/21 04:28 82 27 H 07/29/21 04:27 70 21 129/57 L 07/29/21 04:08 74 20 07/29/21 03:59 37.1 C 68 30 H 07/29/21 03:36 70 23 114/65 07/29/21 03:30 71 22 07/29/21 03:13 70 22 07/29/21 02:09 146 H 13 121/59 L 07/29/21 02:05 37.5 C 110 H 121/59 L 07/29/21 02:00 07/29/21 01:59 BP Pulse Ox Pulse Ox 07/29/21 07:38 96 07/29/21 07:22 86 L 07/29/21 06:22 139/68 95 07/29/21 06:21 95 07/29/21 05:09 95 07/29/21 05:01 90 07/29/21 04:28 169/67 H 07/29/21 04:27 94 07/29/21 04:08 98 07/29/21 03:59 129/57 L 98 07/29/21 03:36 95 07/29/21 03:30 97 07/29/21 03:13 93 07/29/21 02:09 96 07/29/21 02:05 95 07/29/21 02:00 95 07/29/21 01:59 82 L Resident Activity Tracking Resident Involvement: Resident Care Provided Care Provided: Adult Hospital Medicine (1) Diabetes type 2, uncontrolled Glycemic state: with hyperglycemia Qualified Code(s): E11.65 - Type 2 di abetes mellitus with hyperglycemia
[2021-07-29] MEDS: cefTRIAXone SODIUM 2,000 MG in DEXTROSE 5% 50 ML IV SCH (07:47)
[2021-07-29] MEDS: INSULIN ASPART 100 UNITS/ML 3 ML PEN SC SCH ×4 (07:58→20:33)
[2021-07-29] MEDS ORDERED: methylPREDNISolone 125 MG/2 ML VIAL IV SCH (09:00)
[2021-07-29] MEDS ORDERED: INSULIN GLARGINE SOLOSTAR 100 UNITS/ML 3 ML PEN SC SCH (09:00)
[2021-07-29 09:34] LABS: Base Excess ABG 2.5 mEq/L (-9-1.8); HCO3 ABG 30 mmol/L (19-24); Oxygen Saturation ABG 92.1 % (90-95); PCO2 ABG 64 mmHg (35-46); PO2 ABG 69 mmHg (80-95); pH ABG 7.29 (7.35-7.45)
[2021-07-29 09:38] LABS: Allen Test Pos (Pos)
[2021-07-29] MEDS: carvediloL 12.5 MG TAB PO SCH ×2 (10:00→20:16)
[2021-07-29] MEDS: methylPREDNISolone 60 MG in SYRINGE 0 ML IV SCH ×2 (10:01→20:17)
[2021-07-29] MEDS: ATORVASTATIN 40 MG TAB PO SCH (10:03)
[2021-07-29] MEDS: dilTIAZem HCL 120 MG CAPCR PO SCH (10:03)
[2021-07-29] MEDS: ASPIRIN 81 MG ECTAB PO SCH (10:04)
[2021-07-29 10:39] LABS: BUN Creatinine Ratio 18.8 (10-20); Calcium 8.8 mg/dl (8.5-10.1); Creatinine Clr Calc Pharmacy 36.6 ml/min; Est GFR (African American) 47.6 ml/min; Est GFR (Non-African American) 41.1 ml/min; Potassium 6.1 mmol/L (3.5-5.1)
[2021-07-29] MEDS ORDERED: POLYETHYLENE (MIRALAX) 17 GM PACK PO ONE (11:30)
[2021-07-29] MEDS ORDERED: INSULIN GLARGINE SOLOSTAR 100 UNITS/ML 3 ML PEN SC ONE ×2 (12:00)
[2021-07-29 14:53] LABS: BUN Creatinine Ratio 19.9 (10-20); Calcium 8.7 mg/dl (8.5-10.1); Est GFR (African American) 51.3 ml/min; Est GFR (Non-African American) 44.3 ml/min; Potassium 6.1 mmol/L (3.5-5.1)
--- NOTE | 2021-07-29 15:26 | Pharmacy Report ---
Pharmacy Glycemic Short Note 2 - Date of Service July 29, 2021 - Glycemic Short BSG Results (Last 24 hours): 07/29/21 07/29/21 07/29/21 02:13 06:42 07:44 Glucose 103 H 91 POC Glucose 148 H 07/29/21 07/29/21 07/29/21 10:10 11:41 14:23 Glucose 175 H 160 H POC Glucose 185 H OUTPATIENT ANTIDIABETIC REGIMEN: * metformin * Jardiance ASSESSMENT: * Ms Gandara is a 71 y/o F admitted with acute on chronic respiratory failure. She is currently NPO. * She is on Solu-Medrol 60 mg BID. When on this previously patient required around 50 units of insulin but basally patient only required around 15-20 units. This was while on prednisone 20 mg. * Give Lantus 15 units x 1. This is conservative so will be aggressive with CF. * Q4 checks for now. PLAN FOR INPATIENT GLYCEMIC CONTROL: * Hold outpatient oral diabetes medications * Basal insulin * Lantus 15 units SQ x 1 then adjust * Bolus insulin * NovoLog per scale ACHS or Q6hrs while NPO * Goal Range: Low 110 mg/dL - High 140 mg/dL * Correction Factor: 15 mg/dL/unit * Nutritional / Prandial insulin per carb ratio of 1 unit per 7 grams CHO consumed PLAN FOR DISCHARGE: * TBD
[2021-07-29] MEDS: AZITHROMYCIN 500 MG in DEXTROSE 5% 250 ML IV SCH (16:16)
--- NOTE | 2021-07-29 16:56 | Emergency Department Note ---
Impression & Plan Respiratory failure Admit to the [facility] ED Provider Note NAME: DANIELLA FLANNERY AGE: 71 SEX: F ARRIVES VIA: Ambulance INFORMANT: EMS and nursing ED PROVIDER(S): Yun Villagomez DO CHIEF COMPLAINT: Hypoxia PLAN: Disposition: Admit to the [facility] service Condition: Critical MEDICAL DECISION MAKING: This is a 71-year-old female patient with an extensive past medical history who apparently fell unresponsive out of her chair. EMS was called and found her on the floor with an O2 saturation in the 40s. Despite being placed on oxygen her O2 saturations were only in the mid 80s. ABG shows hypercapnic respiratory acidosis. Patient was placed on BiPAP and O2 saturations were maintained in the low 90s. Chest x-ray shows no significant pneumonia. Covid testing was negative. Wheezing was cleared with an hour-long DuoNeb. Admitting team gave Narcan which seemed to improve her mental status. Triage Nursing notes reviewed and agree with them. Additional history obtained from EMS Prior medical records reviewed Vital Signs: reviewed and remarkable for tachycardia and hypoxia Differential diagnosis: Hypercapnic respiratory failure, pneumonia, CHF, COPD exacerbation, opioid overdose, COVID-19, PE ER treatment provided: BiPAP Hour-long DuoNeb IV Solu-Medrol Diagnostics interpreted by me: ECG: Sinus tachycardia at 143 with peaked T waves and PVCs. There is no ST segment elevation or signs of ischemia Cardiac Monitoring: Sinus tachycardia at 122 Laboratory studies: See below Imaging studies: As per my interpretation Portable chest x-ray: Consolidation of the left base HPI: 71/F arrives for evaluation of altered mental status and respiratory distress. Patient was found on the floor with an altered mental status respiratory distress. O2 saturations were in the mid 40s on room air. Despite supplemental oxygen by EMS O2 saturations were only in the mid 80s. History from the past couple days is unclear. ROS: Unobtainable from patient due to altered mental status PAST MEDICAL HISTORY:See Below PAST SURGICAL HISTORY:See Below FAMILY HISTORY:See Below SOCIAL HISTORY:See Below HOME MEDICATIONS:See Below ALLERGIES:See Below VITALS:See Below PHYSICAL EXAMINATION: HEENT: Head - normocephalic and atraumatic. Pupils are equal but sluggishly reactive to light. Extraocular eye muscles are intact, and sclera are anicteric. Nose - moist nasal mucosa without discharge. Mouth - moist buccal mucosa. Oropharynx is nonerythematous and there is no tonsillar exudate or edema noted. Neck: Supple; no JVD or cervical lymphadenopathy Heart: Tachycardic rate and regular rhythm there is a normal S1 and S2 with no murmurs, clicks, or gallops appreciated. Lungs: Diffuse wheezing in all lung monsivais with no rales or rhonchi appreciated. Abdomen: Soft, completely nontender, nondistended, with good bowel sounds. There are no palpable pulsatile masses or hepatosplenomegaly. There is no guarding, rigidity, or rebound noted. Extremities: No evidence of cyanosis, clubbing, or edema. There are easily pa lpable peripheral pulses. Skin: Pale, warm and dry with good turgor and no rashes. ED COURSE: Times/Reassessments: 0235: Patient was evaluated in room B5. A complete history and physical was performed. Previous electronic medical records were reviewed. An order was placed for continuous cardiac monitoring. The patient was in a sinus tachycardia at 122. A twelve-lead EKG was obtained. Nursing staff tried to contact the patient's but were unsuccessful. Patient was placed on a continuous nebulizer treatment. A portable chest x-ray was performed. An ABG was obtained. This showed a pH of 7.29 a PCO2 of 69 and a PO2 of 59. There was some concern this may have been venous blood. Regardless, the patient is in a respiratory acidosis. The patient was placed on BiPAP. The patient was given 125 mg of IV Solu-Medrol. A septic protocol was performed. Covid testing was ordered. Her respiratory status seemed to start improving and her mental status seemed to clear somewhat. I discussed the case with the [facility] hospitalist and they will evaluate for further management. I have personally spent greater than 60 minutes of critical care time in the direct management of this patient. This includes bedside care, interpretation of diagnostic studies, and testing, discussion with consultants, patient, and family members, and other required patient management activities. This 60 minutes is in excess of all separately billable procedures. Yun Villagomez DO Past Med/Surg History Medical History AAA (abdominal aortic aneurysm) Acute hypotension Acute UTI Chronic low back pain COPD exacerbation Diabetes type 2, uncontrolled Diaphragmatic hernia (12/08/11) History of knee replacement Left peroneal nerve palsy Syncope Surgical History H/O Achilles tendon repair (~2007) H/O: hysterectomy History of appendectomy History of bilateral oophorectomies History of lithotripsy (~2007) Hx of cholecystectomy Family History Other Family history non-contributory Social History Smoking Status: Current every day smoker Tobacco Type: Cigarettes Second Hand Exposure: No; Hx Alcohol Use: No Hx Substance Use: No Preferred Language: Khmer Communication Ability: Effective Search Engine Optimizer Required: No Beliefs That Will Affect Care: None marital status: Current Living Situation: Spouse Other Information That Helps Us Care for You: No Feels Safe at Home: Yes Assistive Devices: BiPap Allergies Allergies Allergy/AdvReac Type Severity Reaction Status Date / Time diflunisal Allergy Unknown HEART RACES Verified 07/29/21 02:41 Home Meds Home Medications Medication Instructions Recorded Confirmed albuterol sulfate 90 mcg/actuation 2 puff INHALATION Q6 PRN 08/28/20 07/29/21 aerosol inhaler aspirin 81 mg tablet,delayed 81 mg PO DAILY 08/28/20 07/29/21 release (Aspirin Low Dose) atorvastatin 40 mg tablet 40 mg PO DAILY 08/28/20 07/29/21 budesonide 0.5 mg/2 mL suspension 0.5 mg INHALATION BID 08/28/20 07/29/21 for nebulization carvedilol 12.5 mg tablet 12.5 mg PO BID 08/28/20 07/29/21 diltiazem HCl 120 mg 120 mg PO DAILY 08/28/20 07/29/21 capsule,extended release 24 hr (Cartia XT) empagliflozin 10 mg tablet 10 mg PO DAILY 08/28/20 07/29/21 (Jardiance) metformin 1,000 mg tablet 1,000 mg PO BID 08/28/20 07/29/21 ipratropium 0.5 mg-albuterol 3 mg 3 ml INHALATION QID PRN 09/25/20 07/29/21 (2.5 mg base)/3 mL nebulization soln oxycodone 5 mg tablet 5 mg PO TID PRN 05/13/21 07/29/21 polyethylene glycol 3350 17 gram 17 g PO BID PRN 05/13/21 07/29/21 oral powder packet (Miralax) Previous Rx's Medication Instructions Recorded ondansetron HCl 4 mg tablet 4 mg PO Q6H PRN #6 tab 05/13/21 (Zofran) blood sugar diagnostic (OneTouch #50 ea 06/02/21 Verio test strips) blood-glucose meter (OneTouch #1 ea 06/02/21 Verio Meter) lancets 33 gauge (OneTouch Delica #100 ea 06/02/21 Lancets) Results & Data (ED) Vital Signs Vital Signs - 24 hr 07/29/21 01:59 07/29/21 02:00 07/29/21 02:05 Temperature 37.5 C Temperature Source Oral Pulse Rate 110 H Pulse Rate [Apical] Pulse Rate from SpO2 Sensor Pulse Rhythm [Apical] Pulse Strength [Apical] Respiratory Rate Respiratory Effort / Characteristics Short of Breath Respiratory Depth Normal Respiratory Pattern Tachypnea Blood Pressure 121/59 L Blood Pressure [Right Arm] Blood Pressure Mean 79 Blood Pressure Mean [Right Arm] Pulse Oximetry 82 L 95 95 Oxygen Delivery Method Room Air Oxymask Oxymask Oxygen Flow Rate 5 5 Fraction of Inspired Oxygen SaO2/FiO2 Ratio Sepsis Recent Fever Within 48 Hours No Sepsis New/Unexplained Change in Mental Status No Sepsis Action Taken by Nursing No Action Required 07/29/21 02:09 07/29/21 03:13 07/29/21 03:30 Temperature Temperature Source Pulse Rate 146 H 71 Pulse Rate [Apical] 70 Pulse Rate from SpO2 Sensor 73 Pulse Rhythm [Apical] Pulse Strength [Apical] Respiratory Rate 13 22 22 Respiratory Effort / Characteristics Non-Labored Spontaneous Labored Respiratory Depth Deep Respiratory Pattern Tachypnea Blood Pressure 121/59 L Blood Pressure [Right Arm] Blood Pressure Mean 79 Blood Pressure Mean [Right Arm] Pulse Oximetry 96 93 97 Oxygen Delivery Method Oxymask Oxygen Flow Rate 4 Fraction of Inspired Oxygen 30 SaO2/FiO2 Ratio Sepsis Recent Fever Within 48 Hours Sepsis New/Unexplained Change in Mental Status Sepsis Action Taken by Nursing 07/29/21 03:36 07/29/21 03:59 07/29/21 04:08 Temperature 37.1 C Temperature Source Oral Pulse Rate 70 74 Pulse Rate [Apical] 68 Pulse Rate from SpO2 Sensor 70 Pulse Rhythm [Apical] Regular Pulse Strength [Apical] Normal Respiratory Rate 23 30 H 20 Respiratory Effort / Characteristics Non-Labored Spontaneous Respiratory Depth Normal Respiratory Pattern Blood Pressure 114/65 Blood Pressure [Right Arm] 129/57 L Blood Pressure Mean 81 Blood Pressure Mean [Right Arm] 81 Pulse Oximetry 95 98 98 Oxygen Delivery Method BiPAP Room Air Oxygen Flow Rate Fraction of Inspired Oxygen 50 SaO2/FiO2 Ratio 196 Sepsis Recent Fever Within 48 Hours Sepsis New/Unexplained Change in Mental Status Sepsis Action Taken by Nursing 07/29/21 04:16 07/29/21 04:27 07/29/21 04:28 Temperature Temperature Source Pulse Rate 70 Pulse Rate [Apical] 82 Pulse Rate from SpO2 Sensor 70 Pulse Rhythm [Apical] Pulse Strength [Apical] Respiratory Rate 21 27 H Respiratory Effort / Characteristics Accessory Muscle Use Short of Breath Respiratory Depth Respiratory Pattern Blood Pressure 129/57 L Blood Pressure [Right Arm] 169/67 H Blood Pressure Mean 81 Blood Pressure Mean [Right Arm] 101 Pulse Oximetry 94 Oxygen Delivery Method Oxygen Flow Rate Fraction of Inspired Oxygen SaO2/FiO2 Ratio Sepsis Recent Fever Within 48 Hours Sepsis New/Unexplained Change in Mental Status Sepsis Action Taken by Nursing Laboratory Data Result diagrams: 07/29/21 02:13 07/29/21 14:23 Lab Results 07/29/21 07/29/21 07/29/21 Range/Units 02:13 02:13 02:13 WBC 8.08 (4.8-10.8) K/uL RBC 3.32 L (4.2-5.4) M/uL Hgb 8.7 L (12.0-16.0) g/dL POC Hgb (12.0-16.0) g/dl Hct 30.4 L (37-47) % POC Hct (37-47) % MCV 91.6 (80-100) fL MCH 26.2 (25-34) pg MCHC 28.6 L (32-36) g/dL RDW Std Deviation 65.0 H (36.4-46.3) fL RDW Coeff of Dorcas 19.4 H (11.5-14.5) % Plt Count 519 H (130-400) K/uL MPV 9.6 (7.4-10.4) fL Immature Gran % (Auto) 0.6 % Neut % (Auto) 63.7 % Lymph % (Auto) 21.4 % Bennett % (Auto) 8.7 % Eos % (Auto) 5.0 % Baso % (Auto) 0.6 % Neut # (Auto) 5.15 (1.4-6.5) K/uL Lymph # (Auto) 1.73 (1.2-3.4) K/uL Bennett # (Auto) 0.70 H (0.11-0.59) K/uL Eos # (Auto) 0.40 (0-0.5) K/uL Baso # (Auto) 0.05 (0-0.2) K/uL Immature Gran # (Auto) 0.05 H (0.00-0.02) K/uL PT 10.3 (9.0-12.0) Seconds INR 1.0 (0.9-1.1) APTT 26.7 (21.0-31.0) Seconds PTT Ratio 1.0 POC pH (7.35-7.45) POC pCO2 (35-46) mmHg POC pO2 (80-95) mmHg POC HCO3 (19-24) jean/L POC Total CO2 (24-31) mmol/L POC Base Excess (-9-1.8) jean/L POC ABG O2 Sat (90-95) % POC Sodium (135-144) mmol/L Sodium 135 L (136-145) mmol/L POC Potassium (3.3-5.0) mmol/L Potassium 6.3 H* (3.5-5.1) mmol/L Chloride 106 (98-107) mmol/L Carbon Dioxide 29 (21-32) mmol/L Anion Gap 0 L (3-11) BUN 22 H (7-18) mg/dl Creatinine 1.47 H (0.6-1.2) mg/dl Est Cr Clr Drug Dosing Not Reportable Est GFR ( Amer) 41.8 ml/min Est GFR (Non-Af Amer) 36.0 ml/min BUN/Creatinine Ratio 15.0 (10-20) Glucose 103 H (70-99) mg/dl Lactate (0.4-2.0) mmol/L Calcium 8.0 L (8.5-10.1) mg/dl Magnesium 2.0 (1.8-2.4) mg/dl Total Bilirubin 0.2 (0.2-1) mg/dl AST 14 L (15-37) U/L ALT 27 (12-78) U/L Alkaline Phosphatase 93 (45-117) U/L Total Creatine Kinase 27 (26-192) U/L Troponin I < 0.015 (0-0.045) ng/ml Total Protein 6.3 L (6.4-8.2) gm/dl Albumin 2.9 L (3.4-5.0) gm/dl Globulin 3.4 (2.5-4.0) gm/dl Albumin/Globulin Ratio 0.9 (0.9-2) Urine Color Urine Appearance (Clear) Urine pH (4.5-7.5) Ur Specific [place] (1.000-1.030) Urine Protein (Negative) Urine Glucose (UA) (Negative) Urine Ketones (Negative) Urine Blood (Negative) Urine Nitrite (Negative) Urine Bilirubin (Negative) Urine Urobilinogen (Negative) Ur Leukocyte Esterase (Negative) Urine WBC (Auto) (0-5) /hpf Urine RBC (Auto) (0-4) /hpf U Hyaline Cast (Auto) (0-5) /lpf U Epithel Cells (Auto) (0-5) /lpf Urine Bacteria (Auto) (Negative) Urine Yeast (None Prsent) COVID-19 Eval Order SARS-CoV-2 (PCR) (Negative) 07/29/21 07/29/21 07/29/21 Range/Units 03:05 03:24 03:26 WBC (4.8-10.8) K/uL RBC (4.2-5.4) M/uL Hgb (12.0-16.0) g/dL POC Hgb 9.5 L (12.0-16.0) g/dl Hct (37-47) % POC Hct 28 L (37-47) % MCV (80-100) fL MCH (25-34) pg MCHC (32-36) g/dL RDW Std Deviation (36.4-46.3) fL RDW Coeff of Dorcas (11.5-14.5) % Plt Count (130-400) K/uL MPV (7.4-10.4) fL Immature Gran % (Auto) % Neut % (Auto) % Lymph % (Auto) % Bennett % (Auto) % Eos % (Auto) % Baso % (Auto) % Neut # (Auto) (1.4-6.5) K/uL Lymph # (Auto) (1.2-3.4) K/uL Bennett # (Auto) (0.11-0.59) K/uL Eos # (Auto) (0-0.5) K/uL Baso # (Auto) (0-0.2) K/uL Immature Gran # (Auto) (0.00-0.02) K/uL PT (9.0-12.0) Seconds INR (0.9-1.1) APTT (21.0-31.0) Seconds PTT Ratio POC pH 7.29 L (7.35-7.45) POC pCO2 69 H (35-46) mmHg POC pO2 59 L (80-95) mmHg POC HCO3 34 H (19-24) jean/L POC Total CO2 36 H (24-31) mmol/L POC Base Excess 7.0 H (-9-1.8) jean/L POC ABG O2 Sat 86.0 L (90-95) % POC Sodium 137 (135-144) mmol/L Sodium (136-145) mmol/L POC Potassium 6.3 H* (3.3-5.0) mmol/L Potassium (3.5-5.1) mmol/L Chloride (98-107) mmol/L Carbon Dioxide (21-32) mmol/L Anion Gap (3-11) BUN (7-18) mg/dl Creatinine (0.6-1.2) mg/dl Est Cr Clr Drug Dosing Est GFR ( Amer) ml/min Est GFR (Non-Af Amer) ml/min BUN/Creatinine Ratio (10-20) Glucose (70-99) mg/dl Lactate 1.3 (0.4-2.0) mmol/L Calcium (8.5-10.1) mg/dl Magnesium (1.8-2.4) mg/dl Total Bilirubin (0.2-1) mg/dl AST (15-37) U/L ALT (12-78) U/L Alkaline Phosphatase (45-117) U/L Total Creatine Kinase (26-192) U/L Troponin I (0-0.045) ng/ml Total Protein (6.4-8.2) gm/dl Albumin (3.4-5.0) gm/dl Globulin (2.5-4.0) gm/dl Albumin/Globulin Ratio (0.9-2) Urine Color Urine Appearance (Clear) Urine pH (4.5-7.5) Ur Specific [place] (1.000-1.030) Urine Protein (Negative) Urine Glucose (UA) (Negative) Urine Ketones (Negative) Urine Blood (Negative) Urine Nitrite (Negative) Urine Bilirubin (Negative) Urine Urobilinogen (Negative) Ur Leukocyte Esterase (Negative) Urine WBC (Auto) (0-5) /hpf Urine RBC (Auto) (0-4) /hpf U Hyaline Cast (Auto) (0-5) /lpf U Epithel Cells (Auto) (0-5) /lpf Urine Bacteria (Auto) (Negative) Urine Yeast (None Prsent) COVID-19 Eval Order Covid19 at [facility] SARS-CoV-2 (PCR) (Negative) 07/29/21 07/29/21 Range/Units 03:26 04:20 WBC (4.8-10.8) K/uL RBC (4.2-5.4) M/uL Hgb (12.0-16.0) g/dL POC Hgb (12.0-16.0) g/dl Hct (37-47) % POC Hct (37-47) % MCV (80-100) fL MCH (25-34) pg MCHC (32-36) g/dL RDW Std Deviation (36.4-46.3) fL RDW Coeff of Dorcas (11.5-14.5) % Plt Count (130-400) K/uL MPV (7.4-10.4) fL Immature Gran % (Auto) % Neut % (Auto) % Lymph % (Auto) % Bennett % (Auto) % Eos % (Auto) % Baso % (Auto) % Neut # (Auto) (1.4-6.5) K/uL Lymph # (Auto) (1.2-3.4) K/uL Bennett # (Auto) (0.11-0.59) K/uL Eos # (Auto) (0-0.5) K/uL Baso # (Auto) (0-0.2) K/uL Immature Gran # (Auto) (0.00-0.02) K/uL PT (9.0-12.0) Seconds INR (0.9-1.1) APTT (21.0-31.0) Seconds PTT Ratio POC pH (7.35-7.45) POC pCO2 (35-46) mmHg POC pO2 (80-95) mmHg POC HCO3 (19-24) jean/L POC Total CO2 (24-31) mmol/L POC Base Excess (-9-1.8) jean/L POC ABG O2 Sat (90-95) % POC Sodium (135-144) mmol/L Sodium (136-145) mmol/L POC Potassium (3.3-5.0) mmol/L Potassium (3.5-5.1) mmol/L Chloride (98-107) mmol/L Carbon Dioxide (21-32) mmol/L Anion Gap (3-11) BUN (7-18) mg/dl Creatinine (0.6-1.2) mg/dl Est Cr Clr Drug Dosing Est GFR ( Amer) ml/min Est GFR (Non-Af Amer) ml/min BUN/Creatinine Ratio (10-20) Glucose (70-99) mg/dl Lactate (0.4-2.0) mmol/L Calcium (8.5-10.1) mg/dl Magnesium (1.8-2.4) mg/dl Total Bilirubin (0.2-1) mg/dl AST (15-37) U/L ALT (12-78) U/L Alkaline Phosphatase (45-117) U/L Total Creatine Kinase (26-192) U/L Troponin I (0-0.045) ng/ml Total Protein (6.4-8.2) gm/dl Albumin (3.4-5.0) gm/dl Globulin (2.5-4.0) gm/dl Albumin/Globulin Ratio (0.9-2) Urine Color Dark Yellow Urine Appearance Clear (Clear) Urine pH 5.5 (4.5-7.5) Ur Specific [place] 1.025 (1.000-1.030) Urine Protein Trace H (Negative) Urine Glucose (UA) 2+ H (Negative) Urine Ketones Trace H (Negative) Urine Blood Negative (Negative) Urine Nitrite Negative (Negative) Urine Bilirubin Negative (Negative) Urine Urobilinogen Negative (Negative) Ur Leukocyte Esterase 1+ H (Negative) Urine WBC (Auto) >30 H (0-5) /hpf Urine RBC (Auto) 0-4 (0-4) /hpf U Hyaline Cast (Auto) 1-5 (0-5) /lpf U Epithel Cells (Auto) 20-30 H (0-5) /lpf Urine Bacteria (Auto) 1+ H (Negative) Urine Yeast Budding A (None Prsent) COVID-19 Eval Order SARS-CoV-2 (PCR) NEGATIVE (Negative) Administered Medications Albuterol (Albut/Ipratrop 3mg/0.5mg Neb 3 Ml Vial) 3 ml NEB Q4R KALEY Stop: 08/28/21 06:59 Last Admin: 07/29/21 15:43 Dose: 3 ml Documented by: [id number] Admin: 07/29/21 11:31 Dose: 3 ml Documented by: [id number] Admin: 07/29/21 07:17 Dose: 3 ml Documented by: [id number] Aspirin (Aspirin 81 Mg Ectab) 81 mg PO DAILY KALEY Stop: 08/28/21 08:59 Last Admin: 07/29/21 10:04 Dose: 81 mg Documented by: [id number] Atorvastatin Calcium (Atorvastatin 40 Mg Tab) 40 mg PO DAILY KALEY Stop: 08/28/21 08:59 Last Admin: 07/29/21 10:03 Dose: 40 mg Documented by: [id number] Budesonide (Budesonide 0.5 Mg/2 Ml Vial (Pulmicort)) 0.5 mg INH BIDR KALEY Stop: 08/28/21 06:59 Last Admin: 07/29/21 07:17 Dose: 0.5 mg Documented by: [id number] Carvedilol (Carvedilol 12.5 Mg Tab) 12.5 mg PO BID KALEY Stop: 08/28/21 08:59 Last Admin: 07/29/21 10:00 Dose: 12.5 mg Documented by: [id number] Diltiazem HCl (Diltiazem Hcl 120 Mg Capcr) 120 mg PO DAILY KALEY Stop: 08/28/21 08:59 Last Admin: 07/29/21 10:03 Dose: 120 mg Documented by: [id number] Sodium Chloride (Nss 1000ml) 1,000 mls @ 125 mls/hr IV .Q8H KALEY Stop: 07/29/21 20:44 Last Admin: 07/29/21 12:42 Dose: 125 mls/hr Documented by: [id number] Infusion: 07/29/21 06:15 Dose: 125 mls/hr Documented by: [id number] Admin: 07/29/21 05:29 Dose: 125 mls/hr Documented by: [id number] Ceftriaxone Sodium 2,000 mg/ (Dextrose) 70 mls @ 140 mls/hr IV Q24H KALEY Stop: 08/08/21 06:59 Last Infusion: 07/29/21 09:29 Dose: 0 mls/hr Documented by: [id number] Admin: 07/29/21 07:47 Dose: 140 mls/hr Documented by: [id number] Methylprednisolone 60 mg/ (Syringe) 0.96 mls @ 1.5 mls/min IV BID [facility] Stop: 08/28/21 08:59 Last Admin: 07/29/21 10:01 Dose: 1.5 mls/min Documented by: [id number] Azithromycin 500 mg/ Dextrose 255 mls @ 125 mls/hr IV Q24H KALEY Stop: 07/31/21 18:03 Last Admin: 07/29/21 16:16 Dose: 125 mls/hr Documented by: [id number] Insulin Aspart (Insulin Aspart 100 Units/Ml 3 Ml Pen) 0 units SC Q4 KALEY Stop: 08/28/21 15:59 Last Admin: 07/29/21 16:28 Dose: 2 units Documented by: [id number] Cosigned by: [id number] Discontinued Medications Acetaminophen (Acetaminophen 1000 Mg/100 Ml Iv) 1,000 mg IV NOW STA Stop: 07/29/21 05:05 Last Admin: 07/29/21 05:29 Dose: 1,000 mg Documented by: [id number] Albuterol (Albut/Ipratrop 3mg/0.5mg Neb 3 Ml Vial) 12 ml NEB ONE ONE Stop: 07/29/21 02:56 Last Admin: 07/29/21 03:07 Dose: 12 ml Documented by: [id number] Calcium Gluconate (Calcium Gluconate 1000 Mg/60 Ml Nss) Confirm Administered Dose 1,000 mg IV .STK-MED ONE Stop: 07/29/21 05:11 Last Admin: 07/29/21 05:28 Dose: 1,000 mg Documented by: [id number] Dextrose (Dextrose 50% 50 Ml Syringe) 50 ml IV NOW STA Stop: 07/29/21 04:39 Last Admin: 07/29/21 05:28 Dose: 50 ml Documented by: [id number] Calcium Gluconate 1,000 mg/ (Sodium Chloride) 60 mls @ 240 mls/hr IV ONE ONE Stop: 07/29/21 05:24 Last Admin: 07/29/21 06:15 Dose: Not Given Documented by: [id number] Insulin Human Regular 10 units (/ Syringe) 9.9 mls @ 3 mls/sec IV ONE ONE Stop: 07/29/21 05:16 Last Admin: 07/29/21 05:28 Dose: 3 mls/sec Documented by: [id number] Cosigned by: [id number] Insulin Aspart (Insulin Aspart 100 Units/Ml 3 Ml Pen) 0 units SC Q6 KALEY Stop: 08/28/21 07:29 Last Admin: 07/29/21 12:53 Dose: 3 units Documented by: [id number] Cosigned by: [id number] Admin: 07/29/21 07:58 Dose: 1 units Documented by: [id number] Cosigned by: [id number] Insulin Glargine (Insulin Glargine Solostar 100 Units/Ml 3 Ml Pen) 15 units SC NOW ONE Stop: 07/29/21 12:01 Last Admin: 07/29/21 12:54 Dose: 15 units Documented by: [id number] Cosigned by: [id number] Methylprednisolone (Methylprednisolone 125 Mg/2 Ml Vial) 125 mg IV NOW STA Stop: 07/29/21 02:56 Last Admin: 07/29/21 03:42 Dose: 125 mg Documented by: [id number] Naloxone HCl (Naloxone Hcl 0.4 Mg/1 Ml Vial/Carp) 0.4 mg IV NOW STA Stop: 07/29/21 04:39 Last Admin: 07/29/21 04:52 Dose: 0.4 mg Documented by: [id number] Polyethylene Glycol (Polyethylene (Miralax) 17 Gm Pack) 34 gm PO ONE ONE Stop: 07/29/21 11:31 Last Admin: 07/29/21 12:42 Dose: 34 gm Documented by: [id number] Imaging Data Radiologist's Impression: Chest X-Ray 07/29/21 02:46 XR chest 1V portable CLINICAL HISTORY: SEPSIS COMPARISON STUDY: Chest CT July 16, 2021. Chest radiograph July 17, 2021. FINDINGS: Lung volumes are normal. There is minimal left basilar opacity. There is no pneumothorax or pleural effusion. Cardiac size is normal. Mediastinal contours are normal. There is no evidence for pulmonary edema. IMPRESSION: Minimal left basilar opacity which may reflect atelectasis or an infectious process. ACT 112: Negative or not required by law. Electronically signed by: Cheng Arevalo M.D. 07/29/2021 7:06 AM Discharge Plan Visit Data Chief Complaint: Shortness of Breath/Dyspnea Stated Complaint: Shortness of breath ED Provider: Yun Villagomez Discharge Problem: Respiratory failure Patient Disposition: Admitted As Inpatient Discharge Instructions Interventions: ED Discharge Assessment Last Done: 07/29/21 05:45 Discharge Problem: Respiratory failure Qualifiers: Chronicity: acute Respiratory failure complication: hypoxia Qualified Code(s): J96.01 - Acute respiratory failure with hypoxia
[2021-07-29 18:48] LABS: Base Excess VBG 3.1 mEq/L; Oxygen Saturation VBG 95.3 %; pH VBG 7.37 (7.36-7.41)
[2021-07-29 19:04] LABS: BUN Creatinine Ratio 20.3 (10-20); Calcium 8.3 mg/dl (8.5-10.1); Creatinine Clr Calc Pharmacy 42.4 ml/min; Est GFR (African American) 56.8 ml/min; Potassium 5.7 mmol/L (3.5-5.1)
[2021-07-29] MEDS: ENOXAPARIN INJ 40 MG/0.4 ML SYR SQ SCH (20:14)
[2021-07-29 22:58] LABS: BUN Creatinine Ratio 23.5 (10-20); Calcium 8.6 mg/dl (8.5-10.1); Creatinine Clr Calc Pharmacy 47.9 ml/min; Est GFR (African American) 65.8 ml/min; Est GFR (Non-African American) 56.8 ml/min; Potassium 5.3 mmol/L (3.5-5.1)
--- NOTE | 2021-07-30 | Billing Data ---
Date of Service July 30, 2021 Coding Level of Care Code 75312 Initial Inpt Care Lvl 3
[2021-07-30] MEDS: INSULIN ASPART 100 UNITS/ML 3 ML PEN SC SCH ×6 (00:34→21:14)
[2021-07-30 02:50] LABS: Hematocrit (blood only) 27.4 % (37-47); Hemoglobin 8.2 g/dL (12.0-16.0); Immature Granulocytes # (auto) 0.02 K/uL (0.00-0.02); Immature Granulocytes % (auto) 0.2 %; Lymphocytes # (auto) 0.67 K/uL (1.2-3.4); Lymphocytes % (auto) 6.4 %; Mean Corpuscular Hemoglobin 26.4 pg (25-34); Mean Corpuscular Hgb Conc 29.9 g/dL (32-36); Mean Corpuscular Volume 88.1 fL (80-100); Mean Platelet Volume 8.9 fL (7.4-10.4); Monocytes # (auto) 0.12 K/uL (0.11-0.59); Monocytes % (auto) 1.1 %; Neutrophils % (auto) 92.3 %; Platelet Count 471 K/uL (130-400); RDW Coefficient of Variation 19.3 % (11.5-14.5); RDW Standard Deviation 61.7 fL (36.4-46.3); Red Blood Count 3.11 M/uL (4.2-5.4); Reticulocyte % 1.9 % (0.5-2.0); Reticulocytes # 0.06 10^6/uL (0.02-0.10); White Blood Count 10.51 K/uL (4.8-10.8)
[2021-07-30 03:09] LABS: BUN Creatinine Ratio 23.2 (10-20); Calcium 8.3 mg/dl (8.5-10.1); Creatinine Clr Calc Pharmacy 52.5 ml/min; Est GFR (African American) 73.6 ml/min; Est GFR (Non-African American) 63.5 ml/min
[2021-07-30 03:14] LABS: Ferritin 48.7 ng/ml (8-388)
[2021-07-30 03:36] LABS: Folate (Folic Acid) 5.1 ng/ml (>5.38)
--- NOTE | 2021-07-30 06:41 | Hospitalist Progress Note ---
Date of Service July 30, 2021 Assessment & Plan (1) Acute on chronic respiratory failure with hypoxemia: Plan: 71yo female with COPD, DM2, HTN, HLD, CKD, and AAA presents with SOB, hypoxemia, AMS, and an unwitnessed ground-level fall at home. [id number] hypoxemic, hypercapnic respiratory failure -- suspect secondary to COPD exacerbation Suspect multifactorial including COPD exacerbation and possible component of opioid overuse On arrival, patient was somnolent and satting 82% --> mental status improved with narcan, oxygenation improved with BiPAP ABG on admission pH 7.29, CO2 69, bicarb 34 --> (07/29 PM) VBG: pH 7.37, CO2 51, HCO3 29 after BiPAP CXR on admission demonstrating minimal L basilar opacity Continue methylprednisolone IV for today --> anticipate transition to prednisone taper tomorrow Lower suspicion for PNA at this time given trace CXR findings, negative procal, no leukocytosis, afebrile, and minimally elevated CRP --> Discontinue CFTX Continue azithromycin x 3 days for COPD exacerbation (end 07/31) Transition from BiPAP --> OxyMask and NC as tolerated Duonebs q6h scheduled and q2h prn Continue Pulmicort Respules bid Hyperkalemia - improved, K at 5.0 from 6.3 Potassium 6.3 on admission in the setting of acidosis, recent Bactrim, and ongoing beta-blockade Received calcium gluconate and insulin with dextrose on admission EKG without concerning changes at this time Patient on albuterol for COPD, insulin for DM2; patient given MiraLax on 07/29 Resolved - K at 5.0 BMP qAM Fall Per EMS note, patient fell out of kitchen chair, though this was unwitnessed; "patient stated that she was uninjured and just needed help getting up" Cause of fall likely multifactorial including AMS due to hypercarbia, opioid use CK wnl No head imaging done on arrival but patient continues to be without focal neurologic symptoms; continue serial exams TATY on CKD -- Resolved Baseline creatinine ~0.6, elevated to 1.47 on admission Improved following IVF Asymptomatic Bacteriuria, Funguria Patient with history of multiple UTI's, most recently Klebsiella and E. coli Afebrile, no leukocytosis, no urinary symptoms UA with leuk esterase, WBCs but also epithelial cells and +budding yeast No indication for treatment of asymptomatic funguria and bacteriuria at present DM2 HbA1c 8.3% (06/02/21) Patient's home regimen held on admission Glycemic consult placed given steroids Continue BSG checks, sliding-scale insulin, hypoglycemic protocol Hypertension Continue home diltiazem, carvedilol, lipitor, ASA Anemia Hgb 8.7 on admission, appears to be in overall chronic decline over past year or two MCV 91.6, RDW elevated Anemia labs ordered (iron, ferritin, transferrin, %sat, B12, folate) --> Folate, iron slightly low --> Start folate PO qAM, iron supplementation b.i.d. Patient has never had colonoscopy; recommend on outpatient basis Chronic Low Back Pain Requiring opioid medications for control Concern that this may be contributory to her current presentation (narcotic overuse) As outpatient, recommend (if not already done): PT, back imaging, modification of pain regimen FEN: carb-consistent diet Code status: full code DVT ppx: lovenox PT/OT: ordered Dispo: PCU telemetry for close monitoring of respiratory status (2) COPD (chronic obstructive pulmonary disease): (3) UTI (urinary tract infection): (4) Diabetes type 2, uncontrolled: (5) Hyperkalemia: Admission and Anticipated Discharge Date Admission Date: July 29, 2021 Supervising Physician Co-Signing Physician Notes I also saw the patient with the resident physician and confirmed whitmore portions of the history and physical examination Upon exam today, the patient notes that she is generally feeling better. Much less shortness of breath. She denies any chest pain. Exam 131/71, 85, 22, 36.8, 91% on nasal cannula, 6 L/min Heart regular rate and rhythm Lungs generally clear with nonlabored respirations. Data Hemoglobin 8.2, platelet 471 Iron 22, TIBC 316, transferrin 252 C-reactive protein 0.64 Vitamin B12 264, folate 5.10 Procalcitonin less than 0.05 Blood cultures demonstrating no growth at 24 hours. Urine showing probable Enterococcus, greater than 100,000 colonies, sensitivities to follow Assessment and Plan Acute on chronic respiratory failure with hypoxia and hypercapnia Altered mental status/decreased responsiveness Unsure how much of this was secondary to medication side effect, as she did improve with naloxone at the same time, she could have been improving secondary to the BiPAP. Probably combination of both, so we will judiciously use opiates moving forward. Hyperkalemia Improved upon repeat Received calcium gluconate and insulin with dextrose upon initial presentation EKG without concerning changes Likely multifactorial, acidosis + Bactrim. Subjective NAEO on the BiPAP. Easily arousable on my visitation this AM. Endorses that breathing is feeling much better. No pain. No chest discomfort. No cough. Eager to get the BIPAP off. No other concerns. Voiding via Gutierrez. Appetite good. Review of Systems Review of Systems: as per HPI Physical Exam Physical Exam: General: 71-year-old female who is lying back in her hospital bed, relaxed, upon my arrival with the BiPAP on. She arouses easily and answers questions appropriately. She is fully alert and oriented. HEENT: NCAT. Eyes - Sclera are white, anicteric, and without injection. BiPAP in place. Cardiac: Normal rate and regular rhythm; S1 and S2 present with no murmurs, rubs, or gallops. Pulmonary: BiPAP in place. Patient breathing with this without distress. Lungs grossly clear to auscultation bilaterally without crackles or wheezes. Abdominal: Normoactive bowel sounds. Abdomen was soft, nondistended, and non- tender to palpation. Extremities: Upper and lower extremities are warm and well perfused. Minimal peripheral edema. Psych: Well-developed, well-nourished, appropriately dressed for occasion. Behavior is cooperative and appropriate. Affect is WNL. Insight is appropriate. Results & Data Results & Data ([facility]) Vital Signs (Past 12 Hours) Vital Signs Temp Pulse Pulse Resp BP BP Pulse Ox 07/30/21 03:15 25 L 25 H 94 07/30/21 03:01 36.4 C L 85 24 144/73 H 93 07/30/21 00:31 36.6 C 82 24 142/69 H 92 07/29/21 22:31 80 21 91 07/29/21 20:06 36.4 C L 74 26 H 126/67 94 07/29/21 19:11 73 24 96 07/29/21 19:07 73 24 96 Resident Activity Tracking Resident Involvement: Resident Care Provided Care Provided: Adult Hospital Medicine (1) Diabetes type 2, uncontrolled Glycemic state: with hyperglycemia Qualified Code(s): E11.65 - Type 2 diabetes mellitus with hyperglycemia
[2021-07-30 07:08] LABS: BUN Creatinine Ratio 23.7 (10-20); Calcium 8.6 mg/dl (8.5-10.1); Creatinine Clr Calc Pharmacy 52.5 ml/min; Est GFR (African American) 74.6 ml/min; Est GFR (Non-African American) 64.4 ml/min; Potassium 4.8 mmol/L (3.5-5.1)
[2021-07-30 07:09] LABS: C Reactive Protein 0.64 mg/dl (0-0.29)
[2021-07-30] MEDS: BUDESONIDE 0.5 MG/2 ML VIAL (PULMICORT) INH SCH ×2 (07:11→19:26)
[2021-07-30] MEDS: ALBUT/IPRATROP 3MG/0.5MG NEB 3 ML VIAL NEB SCH ×4 (07:11→19:27)
[2021-07-30] MEDS: FERROUS SULFATE 325 MG TAB PO SCH ×2 (08:07→17:18)
[2021-07-30] MEDS: cefTRIAXone SODIUM 2,000 MG in DEXTROSE 5% 50 ML IV SCH (08:07)
[2021-07-30] MEDS: ASPIRIN 81 MG ECTAB PO SCH (08:07)
[2021-07-30] MEDS: dilTIAZem HCL 120 MG CAPCR PO SCH (08:07)
[2021-07-30] MEDS: ATORVASTATIN 40 MG TAB PO SCH (08:07)
[2021-07-30] MEDS: FOLIC ACID 1 MG TAB PO SCH (08:07)
[2021-07-30] MEDS: ENOXAPARIN INJ 40 MG/0.4 ML SYR SQ SCH (08:08)
[2021-07-30] MEDS: carvediloL 12.5 MG TAB PO SCH ×2 (08:08→21:11)
[2021-07-30] MEDS: methylPREDNISolone 60 MG in SYRINGE 0 ML IV SCH ×2 (08:21→21:11)
--- NOTE | 2021-07-30 08:40 | Electrocardiogram Report ---
Test Reason : Blood Pressure : / mmHG Vent. Rate : 077 BPM Atrial Rate : 077 BPM P-R Int : 152 ms QRS Dur : 076 ms QT Int : 380 ms P-R-T Axes : 065 027 070 degrees QTc Int : 430 ms Normal sinus rhythm Low voltage QRS Borderline ECG When compared with ECG of 29-JUL-2021 02:13, No significant change Confirmed by Trey Sterling ([id number]) on 07/30/2021 8:39:50 AM Referred By: REFERRED SELF Confirmed By:Trey Sterling
--- NOTE | 2021-07-30 08:51 | Electrocardiogram Report ---
Test Reason : Blood Pressure : / mmHG Vent. Rate : 070 BPM Atrial Rate : 070 BPM P-R Int : 156 ms QRS Dur : 084 ms QT Int : 402 ms P-R-T Axes : 064 041 075 degrees QTc Int : 434 ms Normal sinus rhythm Low voltage QRS Borderline ECG When compared with ECG of 29-JUL-2021 11:08, No significant change was found Confirmed by Trey Sterling ([id number]) on 07/30/2021 8:50:35 AM Referred By: REFERRED SELF Confirmed By:Trey Sterling
[2021-07-30] MEDS ORDERED: INSULIN GLARGINE SOLOSTAR 100 UNITS/ML 3 ML PEN SC SCH ×2 (09:00→21:00)
[2021-07-30 10:59] LABS: Calcium 8.6 mg/dl (8.5-10.1); Creatinine Clr Calc Pharmacy 53.7 ml/min; Est GFR (African American) 76.6 ml/min; Est GFR (Non-African American) 66.1 ml/min; Potassium 4.5 mmol/L (3.5-5.1)
--- NOTE | 2021-07-30 15:36 | Pharmacy Report ---
Pharmacy Glycemic Short Note 2 - Date of Service July 30, 2021 - Glycemic Short BSG Results (Last 24 hours): 07/29/21 07/29/21 07/29/21 16:08 18:36 20:13 Glucose 193 H POC Glucose 160 H 172 H 07/29/21 07/30/21 07/30/21 22:25 00:28 02:31 Glucose 152 H 146 H POC Glucose 158 H 07/30/21 07/30/21 07/30/21 04:45 06:22 07:04 Glucose 156 H POC Glucose 176 H 169 H 07/30/21 07/30/21 10:22 11:18 Glucose 159 H POC Glucose 181 H OUTPATIENT ANTIDIABETIC REGIMEN: * metformin * Jardiance ASSESSMENT: 07/30 * Fasting BSG of 169 mg/dL is above goal. Will start Lantus BID per scale for easier dose titration. * Post prandial BSGs are slightly elevated. I anticipate improvement with additional basal insulin on board. No changes to carb coverage - minimal oral intake. Background: * Ms Gandara is a 71 y/o F admitted with acute on chronic respiratory failure. She is currently NPO. * She is on Solu-Medrol 60 mg BID. When on this previously patient required ar ound 50 units of insulin but basally patient only required around 15-20 units. This was while on prednisone 20 mg. * Give Lantus 15 units x 1. This is conservative so will be aggressive with CF. * Q4 checks for now. PLAN FOR INPATIENT GLYCEMIC CONTROL: * Hold outpatient oral diabetes medications * Basal insulin * Lantus 0-15 units SQ BID - see eMAR for details * Bolus insulin * NovoLog per scale ACHS or Q6hrs while NPO * Goal Range: Low 110 mg/dL - High 140 mg/dL * Correction Factor: 15 mg/dL/unit * Nutritional / Prandial insulin per carb ratio of 1 unit per 7 grams CHO consumed PLAN FOR DISCHARGE: * TBD
[2021-07-30] MEDS ORDERED: MELATONIN 3 MG TAB PO PRN (16:29)
[2021-07-30] MEDS: AZITHROMYCIN 500 MG in DEXTROSE 5% 250 ML IV SCH (16:47)
[2021-07-30] MEDS: BENZONATATE 100 MG CAPSULE PO PRN (21:11)
[2021-07-30] MEDS: NITROFURANTOIN MONOHYDRATE 100 MG CAP PO SCH (22:29)
[2021-07-31] MEDS: INSULIN ASPART 100 UNITS/ML 3 ML PEN SC SCH ×6 (00:50→20:29)
[2021-07-31] MEDS: ALBUT/IPRATROP 3MG/0.5MG NEB 3 ML VIAL NEB SCH ×4 (01:12→18:59)
[2021-07-31] MEDS: ACETAMINOPHEN 325 MG TAB PO PRN ×5 (03:38→22:22)
[2021-07-31 06:16] LABS: Hematocrit (blood only) 29.3 % (37-47); Hemoglobin 8.7 g/dL (12.0-16.0); Immature Granulocytes # (auto) 0.04 K/uL (0.00-0.02); Immature Granulocytes % (auto) 0.3 %; Lymphocytes # (auto) 0.47 K/uL (1.2-3.4); Lymphocytes % (auto) 3.9 %; Mean Corpuscular Hemoglobin 25.6 pg (25-34); Mean Corpuscular Hgb Conc 29.7 g/dL (32-36); Mean Corpuscular Volume 86.2 fL (80-100); Mean Platelet Volume 9.1 fL (7.4-10.4); Monocytes # (auto) 0.19 K/uL (0.11-0.59); Monocytes % (auto) 1.6 %; Neutrophils # (auto) 11.26 K/uL (1.4-6.5); Neutrophils % (auto) 94.2 %; Platelet Count 531 K/uL (130-400); RDW Coefficient of Variation 19.3 % (11.5-14.5); RDW Standard Deviation 60.9 fL (36.4-46.3); White Blood Count 11.96 K/uL (4.8-10.8)
[2021-07-31] MEDS: BENZONATATE 100 MG CAPSULE PO PRN ×3 (06:34→20:12)
[2021-07-31 06:58] LABS: Calcium 8.7 mg/dl (8.5-10.1); Creatinine Clr Calc Pharmacy 55.1 ml/min; Est GFR (African American) 82.2 ml/min; Est GFR (Non-African American) 70.9 ml/min; Potassium 3.7 mmol/L (3.5-5.1)
[2021-07-31] MEDS: BUDESONIDE 0.5 MG/2 ML VIAL (PULMICORT) INH SCH ×2 (07:08→18:59)
--- NOTE | 2021-07-31 07:29 | Hospitalist Progress Note ---
Date of Service July 31, 2021 Assessment & Plan (1) Acute on chronic respiratory failure with hypoxemia: Plan: 71yo female with COPD, DM2, HTN, HLD, CKD, and AAA presents with SOB, hypoxemia, AMS, and an unwitnessed ground-level fall at home. [id number] hypoxemic, hypercapnic respiratory failure -- suspect secondary to COPD exacerbation Suspect multifactorial including COPD exacerbation and possible component of opioid overuse On arrival, patient was somnolent and satting 82% --> mental status improved with Narcan, oxygenation improved with BiPAP ABG on admission pH 7.29, CO2 69, bicarb 34 --> (07/29 PM) VBG: pH 7.37, CO2 51, HCO3 29 after BiPAP CXR on admission demonstrating minimal L basilar opacity Transition to prednisone taper x 10 days, starting at 50mg Lower suspicion for PNA at this time given trace CXR findings, negative procal, no leukocytosis, afebrile, and minimally elevated CRP --> Discontinued CFTX Continue azithromycin x 3 days for COPD exacerbation (end 07/31) Transition from BiPAP --> OxyMask and NC as tolerated Duonebs q6 --> q12h Continue Pulmicort Respules bid Hyperkalemia - resolved, K at 3.7 Potassium 6.3 on admission in the setting of acidosis, recent Bactrim, and ongoing beta-blockade Received calcium gluconate and insulin with dextrose on admission Patient on albuterol for COPD, insulin for DM2; patient given MiraLax on 07/29 Resolved BMP qAM Fall Per EMS note, patient fell out of kitchen chair, though this was unwitnessed; "patient stated that she was uninjured and just needed help getting up" Cause of fall likely multifactorial including AMS due to hypercarbia, opioid use CK wnl No head imaging done on arrival but patient continues to be without focal neurologic symptoms; continue serial exams TATY on CKD -- Resolved Baseline creatinine ~0.6, elevated to 1.47 on admission Improved following IVF Bacteriuria, Funguria Patient with history of multiple UTI's, most recently Klebsiella and E. coli Afebrile, no leukocytosis, no urinary symptoms UA with leuk esterase, WBCs but also epithelial cells and +budding yeast Macrobid x 5 days given unclear relationship to AMS DM2 HbA1c 8.3% (06/02/21) Patient's home regimen held on admission Glycemic consult placed given steroids Continue BSG checks, sliding-scale insulin, hypoglycemic protocol Hypertension Continue home diltiazem, carvedilol, lipitor, ASA Anemia Hgb 8.7 on admission, appears to be in overall chronic decline over past year or two MCV 91.6, RDW elevated Anemia labs ordered (iron, ferritin, transferrin, %sat, B12, folate) --> Folate, iron slightly low --> Start folate PO qAM, iron supplementation b.i.d. Patient has never had colonoscopy; recommend on outpatient basis Chronic Low Back Pain Requiring opioid medications for control Concern that this may be contributory to her current presentation (narcotic overuse) As outpatient, recommend (if not already done): PT, reduction of opioid (perhaps 5mg b.i.d. with maximizing Tylenol from t.i.d.) FEN: carb-consistent diet Code status: full code DVT ppx: lovenox PT/OT: ordered Dispo: Transfer to [place] (2) COPD (chronic obstructive pulmonary disease): (3) UTI (urinary tract infection): (4) Diabetes type 2, uncontrolled: (5) Hyperkalemia: Admission and Anticipated Discharge Date Admission Date: July 29, 2021 Supervising Physician Co-Signing Physician Notes I also saw the patient with the resident physician and confirmed whitmore portions of the history and physical examination Upon exam today, the patient looks much better than yesterday. She also tells me that she feels better. She is much more talkative. We discussed some of her medications, including her pain medications. 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 Much less shortness of breath. She denies any chest pain. Exam 161/70, 71, 18, 36.9, 90% on 6 L/min Heart regular rate and rhythm Lungs generally clear with nonlabored respirations. Data Hemoglobin 8.7, platelet 531 Blood cultures demonstrating no growth at 48 hours. Urine showing Enterococcus faecalis Assessment and Plan I agree with the impression and plan in the resident documentation. Acute on chronic respiratory failure with hypoxia and hypercapnia Continues to improve Transition to p.o. prednisone Suspect leukocytosis secondary to steroids Altered mental status/decreased responsiveness Unsure how much of this was secondary to medication side effect, as she did improve with naloxone at the same time, she could have been improving secondary to the BiPAP. Probably combination of both, so we will judiciously use opiates moving forward; Discussed with patient today Additional diagnoses per resident documentation. Subjective No acute events overnight. Is weaned off oxygen mask to nasal cannula this morning without any difficulty. Says that her breathing is about 80% better/back to baseline. Intermittent cough resolving. No chest pain, palpitations. Appetite good. No nausea. Review of Systems Review of Systems: as per HPI Physical Exam Physical Exam: General: 71-year-old female who is lying back in her hospital bed, relaxed. She arouses easily and answers questions appropriately. She is fully alert and oriented. HEENT: NCAT. Eyes - Sclera are white, anicteric, and without injection. NC in place. Cardiac: Normal rate and regular rhythm; S1 and S2 present with no murmurs, rubs, or gallops. Pulmonary: Patient breathing with this without distress. Lungs grossly clear to auscultation bilaterally without crackles or wheezes. Abdominal: Normoactive bowel sounds. Abdomen was soft, nondistended, and non- tender to palpation. Extremities: Upper and lower extremities are warm and well perfused. Minimal peripheral edema. Psych: Well-developed, well-nourished, appropriately dressed for occasion. Behavior is cooperative and appropriate. Affect is WNL. Insight is appropriate. Results & Data Results & Data ([facility]) Vital Signs (Past 12 Hours) Vital Signs Temp Pulse Resp BP Pulse Ox 07/31/21 07:08 70 18 92 07/31/21 04:38 36.7 C 74 24 166/65 H 91 07/31/21 01:14 73 16 98 07/30/21 23:46 37.2 C 78 24 149/73 H 95 07/30/21 20:30 37.1 C 83 24 153/69 H 92 07/30/21 19:28 87 17 93 Resident Activity Tracking Resident Involvement: Resident Care Provided Care Provided: Adult Hospital Medicine (1) Diabetes type 2, uncontrolled Glycemic state: with hyperglycemia Qualified Code(s): E11.65 - Type 2 diabetes mellitus with hyperglycemia
[2021-07-31] MEDS: NITROFURANTOIN MONOHYDRATE 100 MG CAP PO SCH ×2 (08:32→20:12)
[2021-07-31] MEDS: dilTIAZem HCL 120 MG CAPCR PO SCH (08:33)
[2021-07-31] MEDS: FOLIC ACID 1 MG TAB PO SCH (08:33)
[2021-07-31] MEDS: carvediloL 12.5 MG TAB PO SCH ×2 (08:33→21:29)
[2021-07-31] MEDS: ATORVASTATIN 40 MG TAB PO SCH (08:33)
[2021-07-31] MEDS: ASPIRIN 81 MG ECTAB PO SCH (08:33)
[2021-07-31] MEDS: ENOXAPARIN INJ 40 MG/0.4 ML SYR SQ SCH (08:34)
[2021-07-31] MEDS: FERROUS SULFATE 325 MG TAB PO SCH ×2 (08:34→18:42)
[2021-07-31] MEDS: predniSONE 20 MG TAB PO SCH (08:43)
[2021-07-31] MEDS ORDERED: INSULIN GLARGINE SOLOSTAR 100 UNITS/ML 3 ML PEN SC SCH (09:00)
--- NOTE | 2021-07-31 09:24 | Pharmacy Report ---
Pharmacy Glycemic Short Note 2 - Date of Service July 31, 2021 - Glycemic Short BSG Results (Last 24 hours): 07/30/21 07/30/21 07/30/21 10:22 11:18 16:13 Glucose 159 H POC Glucose 181 H 156 H 07/30/21 07/31/21 07/31/21 20:28 00:34 04:39 Glucose POC Glucose 200 H 180 H 182 H 07/31/21 07/31/21 05:54 07:34 Glucose 162 H POC Glucose 168 H OUTPATIENT ANTIDIABETIC REGIMEN: * metformin * Jardiance ASSESSMENT: 07/31 * Pt has received 50 units of insulin over the past 24hrs * 25 units of basal with Lantus * 25 units of bolus with NovoLog * BSGs [phone] mg/dl * Steroids changed from Solumedrol 60mg IV BID to Prednisone 60mg PO daily in AM - will empricially reduce insulin dosing for step down in steroid dosing. BSGs not well controlled yesterday - therefore will conservatively decrease long acting basal insulin (steroids now only once daily) but tighten CF/CR since steroids have their most profound effect on post-prandial hyperglycemia. 07/30 * Fasting BSG of 169 mg/dL is above goal. Will start Lantus BID per scale for easier dose titration. * Post prandial BSGs are slightly elevated. I anticipate improvement with additional basal insulin on board. No changes to carb coverage - minimal oral intake. Background: * Ms Gandara is a 71 y/o F admitted with acute on chronic respiratory failure. She is currently NPO. * She is on Solu-Medrol 60 mg BID. When on this previously patient required around 50 units of insulin but basally patient only required around 15-20 units. This was while on prednisone 20 mg. * Give Lantus 15 units x 1. This is conservative so will be aggressive with CF. * Q4 checks for now. PLAN FOR INPATIENT GLYCEMIC CONTROL: * Hold outpatient oral diabetes medications * Basal insulin * Lantus 20 units (0.3 units/kg) SQ daily in AM * Bolus insulin * NovoLog per scale ACHS or Q6hrs while NPO * Goal Range: Low 110 mg/dL - High 140 mg/dL * Correction Factor: 20 mg/dL/unit * Nutritional / Prandial insulin per carb ratio of 1 unit per 6 grams CHO consumed PLAN FOR DISCHARGE: * TBD
[2021-07-31] MEDS: ALBUT/IPRATROP 3MG/0.5MG NEB 3 ML VIAL NEB PRN ×3 (11:07→22:44)
[2021-07-31] MEDS: AZITHROMYCIN 500 MG in DEXTROSE 5% 250 ML IV SCH (16:13)
[2021-08-01] MEDS: ACETAMINOPHEN 325 MG TAB PO PRN ×2 (03:04→07:52)
[2021-08-01] MEDS: ALBUT/IPRATROP 3MG/0.5MG NEB 3 ML VIAL NEB SCH (07:34)
[2021-08-01] MEDS: BUDESONIDE 0.5 MG/2 ML VIAL (PULMICORT) INH SCH (07:34)
[2021-08-01 08:10] LABS: BUN Creatinine Ratio 20.5 (10-20); Calcium 9.3 mg/dl (8.5-10.1); Creatinine Clr Calc Pharmacy 54.4 ml/min; Est GFR (Non-African American) 69.9 ml/min; Potassium 3.3 mmol/L (3.5-5.1)
--- NOTE | 2021-08-01 08:35 | Pharmacy Report ---
Pharmacy Glycemic Short Note 2 - Date of Service August 01, 2021 - Glycemic Short BSG Results (Last 24 hours): 07/31/21 07/31/21 07/31/21 11:21 17:18 20:26 Glucose POC Glucose 148 H 224 H 224 H 08/01/21 08/01/21 06:17 08:22 Glucose 156 H POC Glucose 168 H OUTPATIENT ANTIDIABETIC REGIMEN: * metformin * Jardiance * HbA1c: 8.3% (06/02/21) ASSESSMENT: 08/01 * BSGs elevated yesterday, 168, 148, 224, 224 mg/dL * Received 54 units of insulin (20 units of basal and 34 units of bolus) * Continues on prednisone 60 mg PO daily * Will start NPH to be given with prednisone, plan on HS lantus scale 07/31 * Pt has received 50 units of insulin over the past 24hrs * 25 units of basal with Lantus * 25 units of bolus with NovoLog * BSGs [phone] mg/dl * Steroids changed from Solumedrol 60mg IV BID to Prednisone 60mg PO daily in AM - will empirically reduce insulin dosing for step down in steroid dosing. BSGs not well controlled yesterday - therefore will conservatively decrease long acting basal insulin (steroids now only once daily) but tighten CF/CR since steroids have their most profound effect on post-prandial hyperglycemia. 07/30 * Fasting BSG of 169 mg/dL is above goal. Will start Lantus BID per scale for easier dose titration. * Post prandial BSGs are slightly elevated. I anticipate improvement with additional basal insulin on board. No changes to carb coverage - minimal oral intake. Background: * Ms Gandaar is a 71 y/o F admitted with acute on chronic respiratory failure. She is currently NPO. * She is on Solu-Medrol 60 mg BID. When on this previously patient required around 50 units of insulin but basally patient only required around 15-20 units. This was while on prednisone 20 mg. * Give Lantus 15 units x 1. This is conservative so will be aggressive with CF. * Q4 checks for now. PLAN FOR INPATIENT GLYCEMIC CONTROL: * Hold outpatient oral diabetes medications * Basal insulin - add NPH * NPH 24 units (~0.4 unit/kg) SC daily with prednisone 60 mg * Bolus insulin - continue * NovoLog per scale ACHS or Q6hrs while NPO * Goal Range: Low 110 mg/dL - High 140 mg/dL * Correction Factor: 20 mg/dL/unit * Nutritional / Prandial insulin per carb ratio of 1 unit per 6 grams CHO consumed PLAN FOR DISCHARGE: * HbA1c of 8.3% is above goal for patient * Reasonable goal would be less than 7% for this patient * Continue metformin and Jardiance * Consider initiation of third oral agent such as a sulfonylurea (i.e. glipizide ) or dipeptidyl peptidase 4 (DPP-4) inhibitor (i.e. sitagliptin, linagliptin, etc.) * Sulfonylurea would likely be most cost-effective option, DPP-4 inhibitor would have decreased risk of hypoglycemia
[2021-08-01] MEDS: FERROUS SULFATE 325 MG TAB PO SCH (08:39)
[2021-08-01] MEDS: carvediloL 12.5 MG TAB PO SCH (08:39)
[2021-08-01] MEDS ORDERED: INSULIN HUMAN NPH SC SCH (09:00)
[2021-08-01] MEDS: ASPIRIN 81 MG ECTAB PO SCH (09:10)
[2021-08-01] MEDS: dilTIAZem HCL 120 MG CAPCR PO SCH (09:11)
[2021-08-01] MEDS: FOLIC ACID 1 MG TAB PO SCH (09:11)
[2021-08-01] MEDS: ENOXAPARIN INJ 40 MG/0.4 ML SYR SQ SCH (09:11)
[2021-08-01] MEDS: ATORVASTATIN 40 MG TAB PO SCH (09:11)
[2021-08-01] MEDS: NITROFURANTOIN MONOHYDRATE 100 MG CAP PO SCH (09:12)
[2021-08-01] MEDS: INSULIN ASPART 100 UNITS/ML 3 ML PEN SC SCH (09:32)
[2021-08-01] MEDS: predniSONE 20 MG TAB PO SCH (10:19)
[2021-08-01] MEDS ORDERED: POTASSIUM CHLORIDE CRTAB 20 MEQ TABCR PO STA (10:24)
--- NOTE | 2021-08-01 12:19 | Discharge Summary ---
Date of Service August 01, 2021 Admission HPI Per Admitting Provider Patient is a 71 year old female with PMHx COPD, DMII, HTN, HLD, CKD, AAA that presents via EMS for altered mental status, unwitnessed fall from home, and shortness of breath, found to be hypoxemic at 82% in the ED. Patient has had multiple admission for similar instances with the most recent hospital stay being on 07/16-07/19/21. Patient at this time relatively somnolent on bipap, but arousable to yes or no questions before needing to be restimulated. Patient able to disclose that she had been more short of breath at home and that was the reason she had been feeling more weak. She denies any recent illness since her last discharge. She denies any fever, chills, chest pain, chest pressure, abdominal pain. Med Hx: COPD, DMII, HTN, HLD, CKD, AAA Surg Hx: Hysterectomy, appendectomy, cholecystectomy Admission Exam Per Admitting Provider Constitutional: well developed, well nourished and + ill appearing Somnolent appearing, but arousable Eyes: PERRL ENMT: external ear and nose normal, oropharynx normal Neck: trachea midline, no thyromegaly Respiratory: + abnormal respiratory effort (On bipap 12/6 ) Auscultation: + diminished lung sounds and + wheezes Cardiovascular: Rate/Rhythm: regular rate and regular rhythm Heart Sounds: no murmur Gastrointestinal (Abdomen): normal bowel sounds, soft, nontender, no hepatos plenomegaly Musculoskeletal: Head/Neck/Chest: normocephalic and head atraumatic Skin: + rash (R lower limb ) Neurologic: moves all extremities and + obtunded Psychiatric: Orientation: oriented to person Eye Contact: + poor eye contact Principal Diagnosis Acute hypoxemic respiratory failure Discharge Exam Constitutional WD/WN, vitals as above cooperative; no acute distress Eyes + anicteric sclerae ENMT external ear and nose normal, oropharynx normal Neck normal visual inspection and trachea midline Respiratory normal respiratory effort; no cough Auscultation: + wheezes (Right lower lobe) Cardiovascular RRR, no murmur, no edema Skin no rashes, warm and dry Psychiatric A+Ox3, euthymic affect Discharge Data Allergies Allergy/AdvReac Type Severity Reaction Status Date / Time diflunisal Allergy Unknown HEART RACES Verified 07/29/21 02:41 Consultations 07/29/21 04:23 ED Decision to Admit Stat Hospital Course (1) Acute on chronic respiratory failure with hypoxemia: 71yo female with COPD and chronic opioid use who was presented for shortness of breath and altered mental status, after an unwitnessed ground-level fall at home. [id number] hypoxemic, hypercapnic respiratory failure Suspect multifactorial including COPD exacerbation and possible component of opioid overuse As for the component of opioid intoxication, mental status improved with Narcan given in the ED As for the component of COPD exacerbation, oxygenation improved with BiPAP. She was later transitioned to her home O2 requirement of 3L via NC Initially given IV steroids, but was transitioned to prednisone taper x 10 days, starting at 50mg at discharge. She completed a course of azithromycin course while inpatient along with receiving scheduled duonebs. COPD * Continue home Pulmicort * Patient's home regimen does not appear to include a daily anti-cholinergic. Anoro Ellipta Added to daily inhaler regimen. Complete steroid taper as above for acute exacerbation. Potassium Level Disturbance Potassium 6.3 on admission in the setting of acidosis, recent Bactrim, and ongoing beta-blockade Received calcium gluconate and insulin with dextrose on admission Patient on albuterol for COPD, insulin for DM2; patient given MiraLax on 07/29 Level normalized, but was low at 3.3 on day of discharge. She was given a 40meQ of KCl prior to her leaving the hospital. Fall Per EMS note, patient fell out of kitchen chair, though this was unwitnessed; "patient stated that she was uninjured and just needed help getting up" Cause of fall likely multifactorial including AMS due to hypercarbia, opioid use CK wnl No head imaging done on arrival as patient had no focal neurologic symptoms TATY on CKD -- Resolved by discharge Baseline creatinine ~0.6, elevated to 1.47 on admission Improved following IVF Bacteriuria, Funguria Patient with history of multiple UTI's, most recently Klebsiella and E. coli Afebrile, no leukocytosis, no urinary symptoms UA with leuk esterase, WBCs but also epithelial cells and +budding yeast Macrobid x 5 days given unclear relationship to AMS DM2 HbA1c 8.3% (06/02/21) Resume home regimen upon discharge Hypertension Continue home diltiazem, carvedilol Anemia Hgb 8.7 on admission, appears to be in overall chronic decline over past year or two MCV 91.6, RDW elevated Anemia labs ordered (iron, ferritin, transferrin, %sat, B12, folate) --> Folate and iron slightly low --> Started on iron and folate supplementations Patient has never had colonoscopy; recommend on outpatient basis Thrombocytosis * Platelet level > 500 during hospitalization * Has been elevated in the past - seems as though elevations correlate with IV steroid use * Repeat CBC as outpatient Chronic Low Back Pain Requiring opioid medications for control Concern that this may be contributory to her current presentation (narcotic overuse) As outpatient, recommend (if not already done): PT, reduction of opioid (perhaps 5mg b.i.d. with maximizing Tylenol from t.i.d.). Recommend Volatren Gel and lidoderm patches (2) COPD (chronic obstructive pulmonary disease): (3) UTI (urinary tract infection): (4) Diabetes type 2, uncontrolled: (5) Hyperkalemia: Total Time Total Time Spent Total Time Spent (In Minutes): I did not see the patient prior to discharge. I spent 5 minutes in review of chart. I spent 5 minutes discussing the case with the resident physician. I spent 5 minutes documenting attestation. Discharge Plan Discharge Items Patient Disposition: Home - Home Health Services Reason For Visit: HYPOXEMIC RESPIRATORY FAILURE, UTI Discharge Diagnosis: COPD exacerbation Activity: Resume your previous activity Non-emergency contact: Primary Care Provider Call non-emergency contact if: you have any medication questions Follow-up/Referrals: Karo Champagne CRNP [Primary Care Provider] - (PATIENT IS REQUESTING TO MAKE HER OWN HOSPITAL F/U VISIT WITH PCP.) Diet: Carb Consistent or DM2 and Heart Healthy Addtl Attending Provider Instructions: You were hospitalized at [facility] for worsening breathing. The cause of your worsening symptoms was thought to be due to an acute exacerbation of your chronic obstructive pulmonary disease, as well as respiratory depression induced by your oxycodone use. For your COPD exacerbation, you were treated with steroids, the antibiotic azithromycin and nebulizers. Your breathing returned to its baseline while under our care. Please continue the following prednisone (steroid) taper after you leave the hospital: Prednisone 50mg daily for 2 days; 40mg daily for 2 days; 30mg daily for 2 days; 20mg daily for 2 days; 10mg daily for 2 days. A script for this medication was sent to your pharmacy. Continue to use your Pulmicort inhaler twice daily. We would like you start using the Anoro inhaler, 1 inhalation daily. The purpose of adding the Anoro inhaler to your daily regimen is to prevent future breathing problems. You may continue to use your albuterol inhaler or nebulizer as a 'rescue' treatment for worsening breathing. We also have you a medication to reverse your oxycodone immediately when you arrived, after which your breathing status improved. We are aware of your chronic low back pain - rather than continue to use oxycodone to treat it, we recommend you consider tylenol, lidoderm patches or topical diclofenac gel (all of these agents are available over the counter). If you can get by with these agents alone - or with only occasional oxycodone use, that would reduce your risk of future respiratory depression. You may also consider requesting a script for physical therapy or a referral to pain management for your back pain - they may be able to offer additional therapies or relief. We also found bacteria in your urine. We treated you with the antibiotic macrobid 100mg twice daily while under our care. Please continue to take for an additional 2 days after discharge. A script for this was sent to your pharmacy. You were also found to be anemic during your hospital stay. We recommend you continue to take an iron supplement as well as a daily folic acid (folate) supplement. Please follow up with your primary care provider within 1 week. Pending Studies at Discharge: No Stand-Alone Forms: My [facility] [address], Smoking Cessation Medications and DC Order Prescriptions: New folic acid 1 mg Tablet 1 mg PO QAM 30 Days Qty: 30 RF: 0 ferrous sulfate 325 mg (65 mg iron) Tablet,Delayed Release (Dr/Ec) 325 mg PO BIDM 30 Days Qty: 60 RF: 0 nitrofurantoin monohyd/m-cryst 100 mg Capsule 100 mg PO BID 3 Days Qty: 5 RF: 0 prednisone 10 mg tablet 10 mg PO DAILY Qty: 30 RF: 0 Anoro Ellipta 62.5-25 mcg/actuation blister with device 1 inh inhalation DAILY Qty: 14 RF: 0 Continued ipratropium-albuterol 0.5 mg-3 mg(2.5 mg base)/3 mL solution for nebulization 3 ml INHALATION QID PRN (Reason: Shortness Of Breath Or Wheezing) RF: 0 atorvastatin 40 mg tablet 40 mg PO DAILY RF: 0 carvedilol 12.5 mg tablet 12.5 mg PO BID RF: 0 budesonide 0.5 mg/2 mL suspension for nebulization 0.5 mg inhalation BID RF: 0 diltiazem HCl [Cartia XT] 120 mg capsule,extended release 24hr 120 mg PO DAILY RF: 0 aspirin [Aspirin Low Dose] 81 mg Tablet,Delayed Release (Dr/Ec) 81 mg PO DAILY RF: 0 albuterol sulfate 90 mcg/actuation HFA aerosol inhaler 2 puff INHALATION Q6 PRN (Reason: Shortness Of Breath Or Wheezing) RF: 0 metformin 1,000 mg tablet 1,000 mg PO BID RF: 0 Jardiance 10 mg tablet 10 mg PO DAILY RF: 0 oxycodone 5 mg tablet 5 mg PO TID PRN (Reason: Pain) RF: 0 polyethylene glycol 3350 [Miralax] 17 gram powder in packet 17 g PO BID PRN (Reason: Constipation) RF: 0 ondansetron HCl [Zofran] 4 mg tablet 4 mg PO Q6H PRN (Reason: nausea and vomiting) Qty: 6 RF: 0 (DME) blood-glucose meter [OneTouch Verio Meter] Misc See Rx Instructions .ROUTE .MEDSUPPLY Qty: 1 RF: 0 (DME) OneTouch Verio test strips Strip See Rx Instructions .ROUTE .MEDSUPPLY Qty: 50 RF: 3 (DME) lancets [OneTouch Delica Lancets] 33 gauge misc See Rx Instructions .ROUTE .MEDSUPPLY Qty: 100 RF: 3 Discharge Orders: Discharge Order (Routine); Ordered 08/01/21 Ordered By: Jesusita Cobb/Other Patient Handouts: Chest and Lung Problems, Discharge Instructions: COPD Admission Data Admit Date/Time: 07/29/21 04:51 Attending Provider: Costa Lopez Admit Provider: Marcelo Jolley Primary Care Provider: Karo Champagne Other Providers: Danie Mckay Other Interventions: Discharge Summary Assessment (RN) Last Done: 08/01/21 10:32 Supervising Physician Co-Signing Physician Notes I discussed the case with the resident physician. Unfortunately, the patient left the hospital before I was able to see her. Her ride was here and she was not willing to wait, as I cannot come to the bedside immediately. Data 177/76, 61, 16, 36.7 C, 96% on 4 L/min She is on oxygen, 3 to 4 L/min, at home Assessment and Plan Based on seen the patient is on previously day and reviewing chart, I agree with the impression and plan in the resident documentation. Acute on chronic respiratory failure with hypoxia and hypercapnia Continues to improve Transition to p.o. prednisone Suspect leukocytosis and thrombocytosis secondary to steroids; will need outpatient CBC Altered mental status/decreased responsiveness Unsure how much of this was secondary to medication side effect, as she did improve with naloxone at the same time, she could have been improving secondary to the BiPAP. Probably combination of both, so we will judiciously use opiates moving forward; Discussed with patient today Additional diagnoses per resident documentation. Resident Activity Tracking Resident Involvement: Resident Care Provided Care Provided: Adult Hospital Medicine
== END 2021-08-01 11:35 | disposition home health service (06) | DRG 190 ==
LOC: ED 02:02 → SUATTDRO 04:51 → 2S 04:51 → 3N 07-31 10:59

== ENCOUNTER 2022-01-12 20:03 | Inpatient (IN) ==
[2022-01-12] MEDS ORDERED: MoRPHine SULFATE 10 MG/ML CARP/VIAL ONE (20:15)
[2022-01-12] MEDS ORDERED: SODIUM CHLORIDE 0.9% 500 ML IV STA (20:33)
[2022-01-12 20:38] LABS: Basophils # (auto) 0.04 K/uL (0-0.2); Basophils % (auto) 0.4 %; Eosinophils # (auto) 0.19 K/uL (0-0.5); Hematocrit (blood only) 36.3 % (37-47); Hemoglobin 10.8 g/dL (12.0-16.0); Immature Granulocytes # (auto) 0.05 K/uL (0.00-0.02); Immature Granulocytes % (auto) 0.5 %; Lymphocytes # (auto) 2.34 K/uL (1.2-3.4); Lymphocytes % (auto) 24.9 %; Mean Corpuscular Hemoglobin 24.7 pg (25-34); Mean Corpuscular Hgb Conc 29.8 g/dL (32-36); Mean Corpuscular Volume 82.9 fL (80-100); Mean Platelet Volume 8.8 fL (7.4-10.4); Monocytes # (auto) 0.81 K/uL (0.11-0.59); Monocytes % (auto) 8.6 %; Neutrophils # (auto) 5.97 K/uL (1.4-6.5); Neutrophils % (auto) 63.6 %; Platelet Count 567 K/uL (130-400); RDW Coefficient of Variation 18.8 % (11.5-14.5); RDW Standard Deviation 57.5 fL (36.4-46.3); Red Blood Count 4.38 M/uL (4.2-5.4)
--- NOTE | 2022-01-12 20:47 | Emergency Department Note ---
Impression & Plan Chest pain ADMIT ED Provider Note HPI: The patient is a 72-year-old female with history of COPD, on supplemental oxygen, type 2 diabetes, presents emergency department with 3 to 4 days of worsening back pain and chest pain. Patient states she does have chronic back pain. She states that this is worse than usual and has not been responding to her home pain medications. On arrival to the ED the patient is hemodynamically stable on her baseline 3 L nasal cannula oxygen, she complains of chest pain and back pain. She is a poor historian. She is in mild distress secondary to pain on arrival. She was noted to have received morphine in route via EMS. ROS: -Cardio: Chest pain/back pain -GI: Upper abdominal pain *10 point review systems was conducted and is otherwise negative unless stated above *Outpatient medications and allergy history reviewed PE: General: Alert, frail-appearing, mild distress secondary to pain HEENT: Normocephalic, atraumatic Eyes: Extraocular eye movement is intact, no scleral erythema Pulmonary: Clear to auscultation bilaterally, no wheezing Cardio: Regular rate and rhythm GI: Abdomen is soft, mild tenderness over the epigastrium to palpation : No suprapubic tenderness MSK: No evidence of trauma or malformation of the extremities, no edema Skin: No evidence of rash Neuro: Alert, no focal deficits Psychiatric: Cooperative laboratory monitor: - An order was placed for continuous cardiac monitoring - Patient was noted to be in sinus rhythm with rate of 90 EKG: Rate: 103 Rhythm: Sinus tachycardia Intervals: Within normal limits ST changes: No ST elevation Time: 2014 Medical Decision Making: Patient presented to the emergency department chief complaint chest pain and back pain. She has a history of an abdominal aortic aneurysm, COPD, type 2 diabetes, chronic pain. Given her multiple comorbidities I did obtain CT angiography of the chest as well as CT scan of the abdomen and pelvis that does not show any evidence of aortic dissection, no evidence of PE. Patient's lab work is otherwise generally reassuring, troponin is negative x1, EKG does not show any acute ischemic changes. Patient was given multiple doses of morphine in the ED, on my reassessment she states she does not feel well, states she continues to have chest pain. Patient also states she feels "weak". States that she is having difficulty ambulating at home and does not feel safe going home and she cannot take care of herself. She does have multiple risk factors including a longstanding smoking history. She is requesting more pain medication. Patient states she does not feel safe being discharged home. At this time I feel that she will require admission therefore hospitalist group was consulted for admission. Patient was admitted in stable condition. Diagnosis: 1. Chest pain, nonspecific 2. Back pain, nonspecific 3. Longstanding history of smoking 4. Type 2 diabetes, poorly controlled 5. Generalized weakness 6. Ambulatory dysfunction 7. Coronary artery calcifications on CT chest Disposition: Admission Charlie Davis DO Emergency Medicine Past Med/Surg History Medical History AAA (abdominal aortic aneurysm) Acute hypotension Acute UTI Chronic low back pain COPD exacerbation Diabetes type 2, uncontrolled Diaphragmatic hernia (10/31/11) History of knee replacement Left peroneal nerve palsy Respiratory failure Syncope Surgical History H/O Achilles tendon repair (~2007) H/O: hysterectomy History of appendectomy History of bilateral oophorectomies History of lithotripsy (~2007) Hx of cholecystectomy Family History Other Family history non-contributory Social History Smoking Status: Current every day smoker Tobacco Type: Cigarettes Second Hand Exposure: No; Hx Alcohol Use: No Hx Substance Use: No Preferred Language: Israeli Communication Ability: Effective Orthodontic Lab Technician Required: No Beliefs That Will Affect Care: None marital status: Current Living Situation: Spouse Feels Safe at Home: Yes Assistive Devices: Oxygen - Continuous Allergies Allergies Allergy/AdvReac Type Severity Reaction Status Date / Time diflunisal Allergy Unknown HEART RACES Verified 11/29/21 14:38 Home Meds Home Medications Medication Instructions Recorded Confirmed albuterol sulfate 90 mcg/actuation 2 puff INHALATION Q6 PRN 08/28/20 01/12/22 aerosol inhaler (Ventolin HFA) aspirin 81 mg tablet,delayed 81 mg PO QAM 08/28/20 01/12/22 release (Aspirin Low Dose) atorvastatin 40 mg tablet (Lipitor) 40 mg PO QAM 08/28/20 01/12/22 budesonide 0.5 mg/2 mL suspension 0.5 mg INHALATION BID 08/28/20 01/12/22 for nebulization (Pulmicort) carvedilol 12.5 mg tablet (Coreg) 12.5 mg PO BID 08/28/20 01/12/22 empagliflozin 10 mg tablet 10 mg PO QAM 08/28/20 01/12/22 (Jardiance) metformin 1,000 mg tablet 1,000 mg PO BID 08/28/20 01/12/22 ipratropium 0.5 mg-albuterol 3 mg 3 ml INHALATION QID PRN 09/25/20 01/12/22 (2.5 mg base)/3 mL nebulization soln oxycodone 5 mg tablet (Roxicodone) 5 mg PO TID PRN 05/13/21 01/12/22 ferrous sulfate 325 mg (65 mg 325 mg PO BID 09/02/21 01/12/22 iron) tablet (Iron (ferrous sulfate)) tiotropium 2.5 mcg-olodaterol 2.5 2 spray INHALATION QAM 09/02/21 01/12/22 mcg/actuation mist for inhalation (Stiolto Respimat) diltiazem HCl 120 mg 120 mg PO DAILY 01/12/22 01/12/22 capsule,extended release 24 hr Previous Rx's Medication Instructions Recorded blood sugar diagnostic (OneTouch #50 ea 06/02/21 Verio test strips) blood-glucose meter (OneTouch #1 ea 06/02/21 Verio Meter) lancets 33 gauge (OneTouch Delica #100 ea 06/02/21 Lancets) Results & Data (ED) Vital Signs Vital Signs - 24 hr 01/12/22 20:21 01/12/22 21:41 01/12/22 22:21 Temperature 37.2 C Temperature Source Oral Pulse Rate 104 H 103 H Pulse Rate [Apical] 102 H 93 H Pulse Rhythm Regular Pulse Rhythm [Apical] Regular Pulse Strength [Apical] Normal Respiratory Rate 20 20 20 Respiratory Effort / Characteristics Non-Labored Non-Labored Respiratory Depth Normal Respiratory Pattern Regular Regular Blood Pressure 128/88 Blood Pressure [Left Arm] 128/88 147/89 H Blood Pressure Mean 101 Blood Pressure Mean [Left Arm] 101 108 Blood Pressure Position Sitting Blood Pressure Position [Left Arm] Sitting Lying Pulse Oximetry 96 97 93 Oxygen Delivery Method Nasal Cannula Nasal Cannula Nasal Cannula Oxygen Flow Rate 3 3 3 Sepsis Recent Fever Within 48 Hours No Sepsis New/Unexplained Change in Mental Status No Sepsis Action Taken by Nursing No Action Required Laboratory Data Result diagrams: 01/12/22 20:20 01/12/22 20:20 Lab Results 01/12/22 01/12/22 01/12/22 Range/Units 20:20 20:20 20:20 WBC 9.40 (4.8-10.8) K/uL RBC 4.38 (4.2-5.4) M/uL Hgb 10.8 L (12.0-16.0) g/dL Hct 36.3 L (37-47) % MCV 82.9 (80-100) fL MCH 24.7 L (25-34) pg MCHC 29.8 L (32-36) g/dL RDW Std Deviation 57.5 H (36.4-46.3) fL RDW Coeff of Dorcas 18.8 H (11.5-14.5) % Plt Count 567 H (130-400) K/uL MPV 8.8 (7.4-10.4) fL Immature Gran % (Auto) 0.5 % Neut % (Auto) 63.6 % Lymph % (Auto) 24.9 % Ada % (Auto) 8.6 % Eos % (Auto) 2.0 % Baso % (Auto) 0.4 % Neut # (Auto) 5.97 (1.4-6.5) K/uL Lymph # (Auto) 2.34 (1.2-3.4) K/uL Ada # (Auto) 0.81 H (0.11-0.59) K/uL Eos # (Auto) 0.19 (0-0.5) K/uL Baso # (Auto) 0.04 (0-0.2) K/uL Immature Gran # (Auto) 0.05 H (0.00-0.02) K/uL PT 10.2 (9.0-12.0) Seconds INR 1.0 (0.9-1.1) APTT 26.8 (21.0-31.0) Seconds PTT Ratio 1.0 Sodium 139 (136-145) mmol/L Potassium 4.0 (3.5-5.1) mmol/L Chloride 104 (98-107) mmol/L Carbon Dioxide 25 (21-32) mmol/L Anion Gap 10 (3-11) BUN 16 (6-23) mg/dl Creatinine 1.30 H (0.6-1.2) mg/dl Est Cr Clr Drug Dosing 31.8 ml/min Est GFR ( Amer) 48.1 ml/min Est GFR (Non-Af Amer) 41.5 ml/min BUN/Creatinine Ratio 12.3 (10-20) Glucose 152 H (70-99(Fasting)) mg/dl Calcium 8.8 (8.5-10.1) mg/dl Total Bilirubin 0.2 (0.2-1.0) mg/dl AST 9 L (13-39) U/L ALT 7 (7-52) U/L Alkaline Phosphatase 84 (34-104) U/L Troponin I < 0.03 (0-0.04) ng/ml Total Protein 6.4 (6.0-8.3) gm/dl Albumin 3.8 (3.4-5.0) gm/dl Globulin 2.6 (2.5-4.0) gm/dl Albumin/Globulin Ratio 1.5 (0.9-2) Lipase 26 (11-82) U/L Administered Medications Discontinued Medications Sodium Chloride (Nss) 500 mls @ 999 mls/hr IV .Q31M STA Stop: 01/12/22 21:03 Last Infusion: 01/12/22 21:22 Dose: 0 mls/hr Documented by: [id number] Admin: 01/12/22 20:41 Dose: 999 mls/hr Documented by: [id number] Ioversol (Optiray 320 125ml) 120 ml IV ONCE ONE Stop: 01/12/22 21:17 Last Admin: 01/12/22 21:16 Dose: 120 ml Documented by: [id number] Morphine Sulfate (Morphine Sulfate 10 Mg/Ml Carp/Vial) Confirm Administered Dose 10 mg .ROUTE .STK-MED ONE Stop: 01/12/22 20:16 Last Increment: 01/12/22 20:47 Dose: 4 mg Documented by: [id number] Morphine Sulfate (Morphine Sulfate 4 Mg/Ml 1 Ml Carp\\Vial) 4 mg IV NOW STA Stop: 01/12/22 21:53 Last Admin: 01/12/22 21:56 Dose: 4 mg Documented by: [id number] Imaging Data Radiologist's Impression: Chest X-Ray 01/12/22 20:33 SINGLE VIEW CHEST CLINICAL HISTORY: Atypical chest pain FINDINGS: An AP, portable, upright chest radiograph is compared to study dated 11/29/2021 and correlated with chest CT performed earlier the same day 01/12/2022. The heart is top normal for projection noting atherosclerotic calcification of the thoracic aorta. Emphysema and chronic interstitial thickening is similar to previous. There is bibasilar scarring/atelectasis. No airspace consolidation or pleural effusion is identified. There are scattered calcified granulomas. No pneumothorax is seen. The skeletal structures are osteopenic. The bony thorax is grossly intact. IMPRESSION: Emphysema with no acute cardiopulmonary abnormality. No change from today's CT scan. ACT 112: Negative or not required by law. Electronically signed by: Koby Wallace M.D. 01/12/2022 10:00 PM Abdomen/Pelvis CT 01/12/22 20:44 CT ANGIOGRAM OF THE CHEST; CT SCAN OF THE ABDOMEN AND PELVIS WITH IV CONTRAST CLINICAL HISTORY: Dyspnea. Upper abdominal pain. COMPARISON STUDY: CT scan of the chest, abdomen, and pelvis dated 11/29/2021. Chest CT dated 07/16/2021. TECHNIQUE: Following the IV administration of 120 of Optiray 320, CT angiogram of the chest is performed from the upper abdomen to the thoracic inlet utilizing the pulmonary embolus protocol. Images are reviewed in the axial, sagittal, coronal planes. 3-D MIPS images are created and assessed. Subsequently, CT scan of the abdomen and pelvis was performed from the lung bases to the proximal femora. Images are reviewed in the axial, sagittal, and coronal planes. IV contrast was administered without complication. A dose lowering technique was utilized adhering to the principles of ALARA. CT DOSE: 628.66 mGy.cm FINDINGS: CHEST: Thyroid: Imaged portions of the thyroid gland are normal in size and attenuation. Thoracic aorta: There is advanced atherosclerotic calcification of the thoracic aorta, which is normal in caliber and demonstrates standard 3-vessel arch anatomy. No dissection is seen. Pulmonary vasculature: The pulmonary trunk is normal in caliber. There are no filling defects identified in the main, lobar, or segmental pulmonary arteries to indicate pulmonary embolus. Heart: The heart is the normal in size and without pericardial effusion. The coronary arteries are densely calcified. Lungs and pleural spaces: Emphysematous change is noted. There is no airspace consolidation typical for pneumonia or pleural effusion. Bullous change is seen at the right lung base. Foci of scarring/atelectasis are seen throughout both lungs. Secretions are noted in the trachea. There is diffuse peribronchial thickening. Numerous calcified granulomas are incidentally noted. A 1.6 cm groundglass density is again seen at the right apex on image #254. Mediastinum: Mildly enlarged mediastinal lymph nodes measure up to 10 mm in short axis. There is a calcified subcarinal node. Brandi: Clear. Axillae: There is no axillary lymphadenopathy. Bony thorax: The skeletal structures are osteopenic. No lytic or blastic lesions are identified. There are chronic/healed right-sided rib fractures. Degenerative change and mild hyperkyphosis is noted in the thoracic spine. ABDOMEN AND PELVIS: Liver: The contrast-enhanced liver is normal in size, contour, and attenuation. There is no intrahepatic or ductal dilatation. The hepatic veins and portal veins are patent. There are calcified hepatic granulomas. Gallbladder: Surgically absent noting clips in the gallbladder fossa. Spleen: Normal in size and attenuation. There are numerous calcified splenic granulomas. Pancreas: There is moderate glandular atrophy of the pancreas. Prominence of the pancreatic duct is similar to prior studies. Adrenal glands: Nodularity of the adrenal glands is similar to previous. Kidneys: The contrast enhanced kidneys demonstrate mild cortical atrophy and are without hydronephrosis. The kidneys enhance symmetrically. Abdominal vasculature: There is advanced atherosclerotic calcification of the abdominal aorta. An infrarenal abdominal aortic aneurysm measures 3.5 x 3.9 cm (AP x transverse). Bowel: There is mild to moderate colonic diverticulosis without CT evidence of acute diverticulitis. No bowel obstruction is identified. The appendix is not visualized. Peritoneum: There is no intraperitoneal free air or abdominal ascites. There is a fat-containing umbilical hernia. Lymphadenopathy: None. Pelvic viscera: The bladder is normal as visualized. The uterus is surgically absent. No adnexal lesion is seen. Skeletal structures: The skeletal structures are osteopenic. There is mild to moderate lumbosacral spondylosis. 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 No lytic or blastic lesions are seen. 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 IMPRESSION: 1. There is no evidence of pulmonary embolus in the main, lobar, or segmental pulmonary arteries. 2. Advanced emphysema. 3. There is no airspace consolidation or pleural effusion. 4. Diffuse peribronchial thickening suggests bronchitis/reactive airway disease. Clinical correlation will be required. 5. There are no acute infectious or inflammatory findings in the abdomen or pelvis. 6. Again seen is a 3.5 x 3.9 cm infrarenal abdominal aneurysm. 7. A 1.6 cm groundglass focus at the right apex is unchanged. Continued attention at follow-up is recommended. 8. Additional findings as above. ACT 112: Negative or not required by law. Electronically signed by: Koby Wallace M.D. 01/12/2022 9:37 PM Chest CTA 01/12/22 20:44 CT ANGIOGRAM OF THE CHEST; CT SCAN OF THE ABDOMEN AND PELVIS WITH IV CONTRAST CLINICAL HISTORY: Dyspnea. Upper abdominal pain. COMPARISON STUDY: CT scan of the chest, abdomen, and pelvis dated 11/29/2021. Chest CT dated 07/16/2021. TECHNIQUE: Following the IV administration of 120 of Optiray 320, CT angiogram of the chest is performed from the upper abdomen to the thoracic inlet utilizing the pulmonary embolus protocol. Images are reviewed in the axial, sagittal, coronal planes. 3-D MIPS images are created and assessed. Subsequently, CT scan of the abdomen and pelvis was performed from the lung bases to the proximal femora. Images are reviewed in the axial, sagittal, and coronal planes. IV contrast was administered without complication. A dose lowering technique was utilized adhering to the principles of ALARA. CT DOSE: 628.66 mGy.cm FINDINGS: CHEST: Thyroid: Imaged portions of the thyroid gland are normal in size and attenuation. Thoracic aorta: There is advanced atherosclerotic calcification of the thoracic aorta, which is normal in caliber and demonstrates standard 3-vessel arch anatomy. No dissection is seen. Pulmonary vasculature: The pulmonary trunk is normal in caliber. There are no filling defects identified in the main, lobar, or segmental pulmonary arteries to indicate pulmonary embolus. Heart: The heart is the normal in size and without pericardial effusion. The coronary arteries are densely calcified. Lungs and pleural spaces: Emphysematous change is noted. There is no airspace consolidation typical for pneumonia or pleural effusion. Bullous change is seen at the right lung base. Foci of scarring/atelectasis are seen throughout both lungs. Secretions are noted in the trachea. There is diffuse peribronchial thickening. Numerous calcified granulomas are incidentally noted. A 1.6 cm groundglass density is again seen at the right apex on image #254. Mediastinum: Mildly enlarged mediastinal lymph nodes measure up to 10 mm in short axis. There is a calcified subcarinal node. Brandi: Clear. Axillae: There is no axillary lymphadenopathy. Bony thorax: The skeletal structures are osteopenic. No lytic or blastic lesions are identified. There are chronic/healed right-sided rib fractures. Degenerative change and mild hyperkyphosis is noted in the thoracic spine. ABDOMEN AND PELVIS: Liver: The contrast-enhanced liver is normal in size, contour, and attenuation. There is no intrahepatic or ductal dilatation. The hepatic veins and portal veins are patent. There are calcified hepatic granulomas. Gallbladder: Surgically absent noting clips in the gallbladder fossa. Spleen: Normal in size and attenuation. There are numerous calcified splenic granulomas. Pancreas: There is moderate glandular atrophy of the pancreas. Prominence of the pancreatic duct is similar to prior studies. Adrenal glands: Nodularity of the adrenal glands is similar to previous. Kidneys: The contrast enhanced kidneys demonstrate mild cortical atrophy and are without hydronephrosis. The kidneys enhance symmetrically. Abdominal vasculature: There is advanced atherosclerotic calcification of the abdominal aorta. An infrarenal abdominal aortic aneurysm measures 3.5 x 3.9 cm (AP x transverse). Bowel: There is mild to moderate colonic diverticulosis without CT evidence of acute diverticulitis. No bowel obstruction is identified. The appendix is not visualized. Peritoneum: There is no intraperitoneal free air or abdominal ascites. There is a fat-containing umbilical hernia. Lymphadenopathy: None. Pelvic viscera: The bladder is normal as visualized. The uterus is surgically absent. No adnexal lesion is seen. Skeletal structures: The skeletal structures are osteopenic. There is mild to moderate lumbosacral spondylosis. 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 No lytic or blastic lesions are seen. 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 IMPRESSION: 1. There is no evidence of pulmonary embolus in the main, lobar, or segmental pulmonary arteries. 2. Advanced emphysema. 3. There is no airspace consolidation or pleural effusion. 4. Diffuse peribronchial thickening suggests bronchitis/reactive airway disease. Clinical correlation will be required. 5. There are no acute infectious or inflammatory findings in the abdomen or pelvis. 6. Again seen is a 3.5 x 3.9 cm infrarenal abdominal aneurysm. 7. A 1.6 cm groundglass focus at the right apex is unchanged. Continued attention at follow-up is recommended. 8. Additional findings as above. ACT 112: Negative or not required by law. Electronically signed by: Koby Wallace M.D. 01/12/2022 9:37 PM Discharge Plan Visit Data Chief Complaint: Chest Pain Stated Complaint: Chest Pain ED Provider: Charlie Davis Discharge Problem: Chest pain Forms Stand Alone Forms: [employer] Prescriptions Prescriptions: No Action ipratropium-albuterol 0.5 mg-3 mg(2.5 mg base)/3 mL solution for nebulization 3 ml INHALATION QID PRN (Reason: Shortness Of Breath Or Wheezing) RF: 0 atorvastatin [Lipitor] 40 mg tablet 40 mg PO QAM RF: 0 carvedilol [Coreg] 12.5 mg tablet 12.5 mg PO BID RF: 0 budesonide [Pulmicort] 0.5 mg/2 mL suspension for nebulization 0.5 mg inhalation BID RF: 0 aspirin [Aspirin Low Dose] 81 mg Tablet,Delayed Release (Dr/Ec) 81 mg PO QAM RF: 0 albuterol sulfate [Ventolin HFA] 90 mcg/actuation HFA aerosol inhaler 2 puff INHALATION Q6 PRN (Reason: Shortness Of Breath Or Wheezing) RF: 0 metformin 1,000 mg tablet 1,000 mg PO BID RF: 0 Jardiance 10 mg tablet 10 mg PO QAM RF: 0 oxycodone [Roxicodone] 5 mg tablet 5 mg PO TID PRN (Reason: Pain) RF: 0 (DME) blood-glucose meter [OneTouch Verio Meter] Misc See Rx Instructions .ROUTE .MEDSUPPLY Qty: 1 RF: 0 (DME) OneTouch Verio test strips Strip See Rx Instructions .ROUTE .MEDSUPPLY Qty: 50 RF: 3 (DME) lancets [OneTouch Delica Lancets] 33 gauge misc See Rx Instructions .ROUTE .MEDSUPPLY Qty: 100 RF: 3 ferrous sulfate [Iron (ferrous sulfate)] 325 mg (65 mg iron) tablet 325 mg PO BID RF: 0 Stiolto Respimat 2.5-2.5 mcg/actuation mist 2 spray INHALATION QAM RF: 0 diltiazem HCl 120 mg capsule,extended release 24hr 120 mg PO DAILY RF: 0 Referrals Referrals: Karo Champagne CRNP [Primary Care Provider] - Discharge Problem: Chest pain Qualifiers: Chest pain type: unspecified Qualified Code(s): R07.9 - Chest pain, unspecified
[2022-01-12 20:51] LABS: Partial Thromboplastin Time 26.8 Seconds (21.0-31.0); Prothrombin Time 10.2 Seconds (9.0-12.0)
[2022-01-12 20:54] LABS: Alanine Aminotransferase 7 U/L (7-52); Albumin Globulin Ratio 1.5 (0.9-2); Albumin Level 3.8 gm/dl (3.4-5.0); Alkaline Phosphatase 84 U/L (34-104); Anion Gap 10 (3-11); Aspartate Aminotransferase 9 U/L (13-39); BUN Creatinine Ratio 12.3 (10-20); Bilirubin,Total 0.2 mg/dl (0.2-1.0); Blood Urea Nitrogen 16 mg/dl (6-23); Calcium 8.8 mg/dl (8.5-10.1); Carbon Dioxide 25 mmol/L (21-32); Chloride 104 mmol/L (98-107); Creatinine Clr Calc Pharmacy 31.8 ml/min; Est GFR (African American) 48.1 ml/min; Est GFR (Non-African American) 41.5 ml/min; Globulin 2.6 gm/dl (2.5-4.0); Glucose 152 mg/dl (70-99(Fasting)); Lipase 26 U/L (11-82); Sodium 139 mmol/L (136-145); Total Protein 6.4 gm/dl (6.0-8.3); Troponin I < 0.03 ng/ml (0-0.04)
[2022-01-12] MEDS ORDERED: OPTIRAY 320 125ml IV ONE (21:16)
--- NOTE | 2022-01-12 21:39 | CT Scan Report ---
CT ANGIOGRAM OF THE CHEST; CT SCAN OF THE ABDOMEN AND PELVIS WITH IV CONTRAST CLINICAL HISTORY: Dyspnea. Upper abdominal pain. COMPARISON STUDY: CT scan of the chest, abdomen, and pelvis dated 11/29/2021. Chest CT dated 07/16/2021 . TECHNIQUE: Following the IV administration of 120 of Optiray 320, CT angiogram of the chest is perfor med from the upper abdomen to the thoracic inlet utilizing the pulmonary embolus protocol. Images are reviewed in the axial, sagittal, coronal planes. 3-D MIPS images are created and assessed. Subsequen tly, CT scan of the abdomen and pelvis was performed from the lung bases to the proximal femora. Imag es are reviewed in the axial, sagittal, and coronal planes. IV contrast was administered without comp lication. A dose lowering technique was utilized adhering to the principles of ALARA. CT DOSE: 628.66 mGy.cm FINDINGS: CHEST: Thyroid: Imaged portions of the thyroid gland are normal in size and attenuation. Thoracic aorta: There is advanced atherosclerotic calcification of the thoracic aorta, which is tania l in caliber and demonstrates standard 3-vessel arch anatomy. No dissection is seen. Pulmonary vasculature: The pulmonary trunk is normal in caliber. There are no filling defects identif ied in the main, lobar, or segmental pulmonary arteries to indicate pulmonary embolus. Heart: The heart is the normal in size and without pericardial effusion. The coronary arteries are de nsely calcified. Lungs and pleural spaces: Emphysematous change is noted. There is no airspace consolidation typical f or pneumonia or pleural effusion. Bullous change is seen at the right lung base. Foci of scarring/ate lectasis are seen throughout both lungs. Secretions are noted in the trachea. There is diffuse peribr onchial thickening. Numerous calcified granulomas are incidentally noted. A 1.6 cm groundglass densit y is again seen at the right apex on image #254. Mediastinum: Mildly enlarged mediastinal lymph nodes measure up to 10 mm in short axis. There is a ca lcified subcarinal node. Brandi: Clear. Axillae: There is no axillary lymphadenopathy. Bony thorax: The skeletal structures are osteopenic. No lytic or blastic lesions are identified. Ther e are chronic/healed right-sided rib fractures. Degenerative change and mild hyperkyphosis is noted i n the thoracic spine. ABDOMEN AND PELVIS: Liver: The contrast-enhanced liver is normal in size, contour, and attenuation. There is no intrahepa tic or ductal dilatation. The hepatic veins and portal veins are patent. There are calcified hepatic granulomas. Gallbladder: Surgically absent noting clips in the gallbladder fossa. Spleen: Normal in size and attenuation. There are numerous calcified splenic granulomas. Pancreas: There is moderate glandular atrophy of the pancreas. Prominence of the pancreatic duct is s imilar to prior studies. Adrenal glands: Nodularity of the adrenal glands is similar to previous. Kidneys: The contrast enhanced kidneys demonstrate mild cortical atrophy and are without hydronephros is. The kidneys enhance symmetrically. Abdominal vasculature: There is advanced atherosclerotic calcification of the abdominal aorta. An inf rarenal abdominal aortic aneurysm measures 3.5 x 3.9 cm (AP x transverse). Bowel: There is mild to moderate colonic diverticulosis without CT evidence of acute diverticulitis. No bowel obstruction is identified. The appendix is not visualized. Peritoneum: There is no intraperitoneal free air or abdominal ascites. There is a fat-containing umbi lical hernia. Lymphadenopathy: None. Pelvic viscera: The bladder is normal as visualized. The uterus is surgically absent. No adnexal lesi on is seen. Skeletal structures: The skeletal structures are osteopenic. There is mild to moderate lumbosacral sp ondylosis. A benign-appearing sclerotic lesion in the right proximal humerus measuring up to 2.6 cm u nchanged and likely represents an enchondroma. No lytic or blastic lesions are seen. 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 IMPRESSION: 1. There is no evidence of pulmonary embolus in the main, lobar, or segmental pulmonary arteries. 2. Advanced emphysema. 3. There is no airspace consolidation or pleural effusion. 4. Diffuse peribronchial thickening suggests bronchitis/reactive airway disease. Clinical correlation will be required. 5. There are no acute infectious or inflammatory findings in the abdomen or pelvis. 6. Again seen is a 3.5 x 3.9 cm infrarenal abdominal aneurysm. 7. A 1.6 cm groundglass focus at the right apex is unchanged. Continued attention at follow-up is rec ommended. 8. Additional findings as above. ACT 112: Negative or not required by law. Electronically signed by: Koby Wallace M.D. 01/12/2022 9:37 PM
[2022-01-12] MEDS ORDERED: MoRPHine SULFATE 4 MG/ML 1 ML CARP\\VIAL IV STA (21:52)
--- NOTE | 2022-01-12 22:01 | XRay Report ---
SINGLE VIEW CHEST CLINICAL HISTORY: Atypical chest pain FINDINGS: An AP, portable, upright chest radiograph is compared to study dated 11/29/2021 and correlate d with chest CT performed earlier the same day 01/12/2022. The heart is top normal for projection noti ng atherosclerotic calcification of the thoracic aorta. Emphysema and chronic interstitial thickening is similar to previous. There is bibasilar scarring/atelectasis. No airspace consolidation or pleura l effusion is identified. There are scattered calcified granulomas. No pneumothorax is seen. The skel etal structures are osteopenic. The bony thorax is grossly intact. IMPRESSION: Emphysema with no acute cardiopulmonary abnormality. No change from today's CT scan. ACT 112: Negative or not required by law. Electronically signed by: Koby Wallace M.D. 01/12/2022 10:00 PM
[2022-01-13] MEDS ORDERED: ASPIRIN CHEW 324 MG PO STA (00:34)
[2022-01-13] MEDS ORDERED: methylPREDNISolone 125 MG/2 ML VIAL IV STA (00:53)
--- NOTE | 2022-01-13 01:19 | History & Physical Report ---
Date of Service January 13, 2022 Assessment & Plan (1) Chest pain: Plan: 71 year old female with PMHx COPD, DMII, HTN, HLD, CKD, AAA presents with a 3-4 day history of fever, fatigue, chest pain, and abdominal pain. Chest pain EKG: sinus tachycardia without overt ischemic change Troponin on admission negative; trend q6h x2 CXR: emphysema without sign of other acute process Pain resolved prior to my interview with patient Admit to med/surg telemetry Received ASA 324mg in ED, continue 81mg qd Abdominal pain LFT's wnl, amylase and lipase wnl, patient afebrile, no leukocytosis CT abdomen/pelvis without acute inflammatory or infectious process Zofran prn, miralax prn Continue to monitor Chronic thrombocythemia Unlikely related to presenting symptoms Peripheral smear, JAK2 testing ordered Pulmonary nodule Patient noted with 1.6cm groundglass focus at the right apex, unchanged from prior imaging Close PCP follow-up recommended COPD O2 sat adequate since admission Continue home inhalers DM2 HbA1c 8.3% (05/2021); repeat value ordered Patient's home regimen held on admission Continue BSG checks, sliding-scale insulin, hypoglycemic protocol HTN BP slightly elevated at this time, no ACS symptoms at time of interview Continue home carvedilol, diltiazem HLD Continue home atorvastatin, ASA CKD Creatinine on admission 1.3 (baseline ~0.9) Received 500mL bolus of NSS in ED, additional 500mL bolus of LR ordered Trend daily BMP FEN: heart-healthy, DM2 diet, IVF as above Code status: full code DVT ppx: lovenox Dispo: PCU telemetry History of Present Illness Primary Care Provider: BRET Bull 71 year old female with PMHx COPD, DMII, HTN, HLD, CKD, AAA presents with a 3-4 day history of URI symptoms. Patient is a poor historian. Patient reports that she developed fatigue about four days ago and felt feverish. About three days ago, patient developed loose stools and nausea; patient endorses vomiting once, there was no blood apparent. Patient reported a 3-4 day history of chest pain to the ED provider, but denied chest pain during my interview. Patient also endorses a one-day history of back pain, SOB, cough, and vertigo ("Does it feel like the room is spinning?" - "yes"). Denies objective fever, denies recent congestion, sore throat, palpitations, dysuria, numbness, or tingling. Allergies Allergy/AdvReac Type Severity Reaction Status Date / Time diflunisal Allergy Unknown HEART RACES Verified 11/29/21 14:38 Home Medications Medication Instructions Recorded Confirmed Type albuterol sulfate 90 mcg/actuation 2 puff INHALATION Q6 PRN 08/28/20 01/12/22 History aerosol inhaler (Ventolin HFA) aspirin 81 mg tablet,delayed 81 mg PO QAM 08/28/20 01/12/22 History release (Aspirin Low Dose) atorvastatin 40 mg tablet (Lipitor) 40 mg PO QAM 08/28/20 01/12/22 History budesonide 0.5 mg/2 mL suspension 0.5 mg INHALATION BID 08/28/20 01/12/22 History for nebulization (Pulmicort) carvedilol 12.5 mg tablet (Coreg) 12.5 mg PO BID 08/28/20 01/12/22 History empagliflozin 10 mg tablet 10 mg PO QAM 08/28/20 01/12/22 History (Jardiance) metformin 1,000 mg tablet 1,000 mg PO BID 08/28/20 01/12/22 History ipratropium 0.5 mg-albuterol 3 mg 3 ml INHALATION QID PRN 09/25/20 01/12/22 History (2.5 mg base)/3 mL nebulization soln oxycodone 5 mg tablet (Roxicodone) 5 mg PO TID PRN 05/13/21 01/12/22 History blood sugar diagnostic (OneTouch #50 ea 06/02/21 Rx Verio test strips) blood-glucose meter (OneTouch #1 ea 06/02/21 Rx Verio Meter) lancets 33 gauge (OneTouch Delica #100 ea 06/02/21 Rx Lancets) ferrous sulfate 325 mg (65 mg 325 mg PO BID 09/02/21 01/12/22 History iron) tablet (Iron (ferrous sulfate)) tiotropium 2.5 mcg-olodaterol 2.5 2 spray INHALATION QAM 09/02/21 01/12/22 History mcg/actuation mist for inhalation (Stiolto Respimat) diltiazem HCl 120 mg 120 mg PO DAILY 01/12/22 01/12/22 History capsule,extended release 24 hr Past Med/Surg History Medical History AAA (abdominal aortic aneurysm) Acute hypotension Acute UTI Chronic low back pain COPD exacerbation Diabetes type 2, uncontrolled Diaphragmatic hernia (10/31/11) History of knee replacement Left peroneal nerve palsy Respiratory failure Syncope Surgical History H/O Achilles tendon repair (~2007) H/O: hysterectomy History of appendectomy History of bilateral oophorectomies History of lithotripsy (~2007) Hx of cholecystectomy Family History Other Family history non-contributory Social History Smoking Status: Current every day smoker Tobacco Type: Cigarettes Second Hand Exposure: No; Hx Alcohol Use: No Hx Substance Use: No Preferred Language: Serbian Communication Ability: Effective Window Unit Air Conditioning Mechanic Required: No Beliefs That Will Affect Care: None marital status: Current Living Situation: Spouse Feels Safe at Home: Yes Assistive Devices: Oxygen - Continuous and Walker Review of Systems Review of Systems: See HPI Physical Exam Physical Exam: Constitutional: well-appearing, no acute distress HEENT: NCAT, no conjunctival injection CV: regular rhythm, no murmur appreciated, extremities well-perfused, no LE edema Resp: CTABL, no wheezes/rales/rhonchi appreciated, no increased work of breathing GI: soft, nondistended, mild epigastric tenderness, nontender elsewhere, BS normoactive MSK: no gross deformities appreciated Skin: warm, dry, no rash appreciated Neuro: alert, oriented, no focal neurologic deficit appreciated Results & Data Results & Data ([facility]) Vital Signs (Past 12 Hours) Vital Signs Temp Pulse Pulse Resp BP BP Pulse Ox 01/12/22 22:21 93 H 20 147/89 H 93 01/12/22 21:41 103 H 20 97 01/12/22 20:21 37.2 C 104 H 102 H 20 128/88 128/88 96 Supervising Physician Co-Signing Physician Notes Attending addendum: I have physically seen this patient, have supervised the medical residents activities, and agree with the H&P unless as otherwise noted. Assessment and Plan: Chest pain- The patient will be admitted to telemetry for serial cardiac enzymes, serial EKG's, cardiac rhythm monitoring and a 2-D echocardiogram with Dopplers. Status post aspirin 324 mg in ED, continue 81 mg daily continue carvedilol 12.5 mg p.o. twice daily, diltiazem 120 mg daily Diabetes mellitus- Hold Metformin and Jardiance Place on Accu-Cheks before meals and at bedtime with NovoLog coverage per scale Check hemoglobin A1c Chronic thrombocythemia- Peripheral smear JAK2 testing Remaining orders and notations as noted Resident Activity Tracking Resident Involvement: Resident Care Provided and Rn On Site Coverage Note Care Provided: Adult Hospital Medicine (1) Chest pain Chest pain type: unspecified Qualified Code(s): R07.9 - Chest pain, unspecified
[2022-01-13] MEDS ORDERED: MoRPHine SULFATE 2 MG/ML CARP IV STA (01:46)
[2022-01-13] MEDS ORDERED: LACTATED RINGER'S 500 ML IV ONE (02:35)
[2022-01-13] MEDS ORDERED: ALBUT/IPRATROP 3MG/0.5MG NEB 3 ML VIAL INH PRN (05:22)
[2022-01-13] MEDS ORDERED: ALBUTEROL HFA 8 GM INHALER INH PRN (05:22)
[2022-01-13] MEDS: LACTATED RINGER'S 1,000 ML IV SCH ×2 (05:59→16:26)
[2022-01-13] MEDS ORDERED: ACETAMINOPHEN 500 MG TAB PO PRN (06:21)
[2022-01-13] MEDS ORDERED: ONDANSETRON INJ 2 MG/ML 2 ML VIAL IV PRN (06:21)
[2022-01-13] MEDS ORDERED: ACETAMINOPHEN 500 MG TAB ONE (06:25)
[2022-01-13] MEDS: BUDESONIDE 0.5 MG/2 ML VIAL (PULMICORT) INH SCH ×2 (07:43→19:00)
[2022-01-13 07:44] LABS: Basophils # (auto) 0.01 K/uL (0-0.2); Basophils % (auto) 0.1 %; Eosinophils # (auto) 0.01 K/uL (0-0.5); Eosinophils % (auto) 0.1 %; Hematocrit (blood only) 39.3 % (37-47); Hemoglobin 11.4 g/dL (12.0-16.0); Immature Granulocytes # (auto) 0.03 K/uL (0.00-0.02); Immature Granulocytes % (auto) 0.4 %; Lymphocytes % (auto) 8.9 %; Mean Corpuscular Hemoglobin 24.1 pg (25-34); Mean Corpuscular Volume 83.1 fL (80-100); Monocytes # (auto) 0.03 K/uL (0.11-0.59); Monocytes % (auto) 0.4 %; Neutrophils # (auto) 7.06 K/uL (1.4-6.5); Neutrophils % (auto) 90.1 %; Platelet Count 585 K/uL (130-400); RDW Standard Deviation 57.6 fL (36.4-46.3); Red Blood Count 4.73 M/uL (4.2-5.4); White Blood Count 7.84 K/uL (4.8-10.8)
[2022-01-13 08:04] LABS: Poikilocytosis Present
[2022-01-13 08:09] LABS: Troponin I < 0.03 ng/ml (0-0.04)
[2022-01-13 08:24] LABS: Alanine Aminotransferase 8 U/L (7-52); Albumin Globulin Ratio 1.4 (0.9-2); Albumin Level 3.9 gm/dl (3.4-5.0); Alkaline Phosphatase 87 U/L (34-104); Anion Gap 9 (3-11); Aspartate Aminotransferase 9 U/L (13-39); BUN Creatinine Ratio 15.6 (10-20); Bilirubin,Total 0.3 mg/dl (0.2-1.0); Blood Urea Nitrogen 14 mg/dl (6-23); Carbon Dioxide 24 mmol/L (21-32); Chloride 103 mmol/L (98-107); Est GFR (African American) 75.1 ml/min; Est GFR (Non-African American) 64.8 ml/min; Globulin 2.8 gm/dl (2.5-4.0); Glucose 227 mg/dl (70-99(Fasting)); Potassium 4.6 mmol/L (3.5-5.1); Sodium 136 mmol/L (136-145); Total Protein 6.7 gm/dl (6.0-8.3)
[2022-01-13] MEDS ORDERED: ALUMINUM/MAGNESIUM SUSP 18 ML, LIDOCAINE VISCOUS 2% SOLN 6 ML, BARCODE IDENTIFIER 1 EA PO ONE (09:06)
[2022-01-13] MEDS: ASPIRIN 81 MG ECTAB PO SCH (09:46)
[2022-01-13] MEDS: ATORVASTATIN 40 MG TAB PO SCH (09:47)
[2022-01-13] MEDS: UMECLIDINIUM/VILANTEROL 62.5/25MCG 7 PUFFS/INHALER INH SCH (09:47)
[2022-01-13] MEDS: MoRPHine SULFATE 2 MG/ML CARP IV PRN ×4 (09:47→22:17)
[2022-01-13] MEDS: carvediloL 12.5 MG TAB PO SCH ×2 (09:47→20:23)
[2022-01-13] MEDS: dilTIAZem HCL 120 MG CAPCR PO SCH (09:47)
[2022-01-13] MEDS: FAMOTIDINE 20 MG in SYRINGE 3 ML IV SCH ×2 (10:18→20:24)
[2022-01-13] MEDS ORDERED: ALUMINUM/MAGNESIUM SUSP 30 ML UDC ONE (10:26)
[2022-01-13] MEDS ORDERED: LIDOCAINE VISCOUS 2% 15 ML UDC ONE (10:26)
[2022-01-13] MEDS ORDERED: ALBUT/IPRATROP 3MG/0.5MG NEB 3 ML VIAL ONE (11:03)
[2022-01-13] MEDS: ALBUT/IPRATROP 3MG/0.5MG NEB 3 ML VIAL INH SCH ×3 (11:06→19:00)
--- NOTE | 2022-01-13 11:19 | Electrocardiogram Report ---
Test Reason : Blood Pressure : / mmHG Vent. Rate : 103 BPM Atrial Rate : 103 BPM P-R Int : 146 ms QRS Dur : 084 ms QT Int : 368 ms P-R-T Axes : 063 025 072 degrees QTc Int : 482 ms Sinus tachycardia Inferior infarct , age undetermined When compared with ECG of 29-NOV-2021 12:38, No significant change was found Confirmed by Yahir Oseguera ([id number]) on 01/13/2022 11:19:23 AM Referred By: REFERRED SELF Confirmed By:Yahir Oseguera
[2022-01-13] MEDS: DOXYCYCLINE HYCLATE 100 MG CAP PO SCH ×2 (12:43→20:23)
--- NOTE | 2022-01-13 13:50 | Hospitalist Progress Note ---
Date of Service January 13, 2022 Assessment & Plan (1) Chest pain: Plan: 71 year old female with PMHx COPD, DMII, HTN, HLD, CKD, AAA presents with a 3-4 day history of fever, fatigue, chest pain, and abdominal pain. Chest pain- resolved EKG: sinus tachycardia without overt ischemic change Troponin on admission negative trend x 3 CXR: emphysema without sign of other acute process Pain resolved prior to my interview with patient Admit to med telemetry Received ASA 324mg in ED, continue 81mg qd Abdominal pain-resolved LFT's wnl, amylase and lipase wnl, patient afebrile, no leukocytosis CT abdomen/pelvis without acute inflammatory or infectious process Zofran prn, miralax prn Continue to monitor (2) COPD exacerbation: Plan: acute on chronic respiratory failure with hypoxia bronchitis clinically and on CT scan on doxycycline po steroids, inhaled medication ->albuterol, budesonide, uneclidium and vilanterolol Pulmonary nodule Patient noted with 1.6cm groundglass focus at the right apex, unchanged from prior imaging Close PCP follow-up recommended, will have pulmonary nodule clinic (3) Diabetes type 2, uncontrolled: Plan: HbA1c 8.3% (05/2021); repeat value pending Patient's home regimen held on admission Continue BSG checks, sliding-scale insulin, hypoglycemic protocol (4) Thrombocythemia: Plan: Chronic thrombocythemia Unlikely related to presenting symptoms Peripheral smear, JAK2 testing ordered (5) HTN (hypertension): Plan: Continue home carvedilol, diltiazem hyperlipidemia Continue home atorvastatin, ASA (6) Chronic kidney disease: Plan: CKD 3 Creatinine on admission 1.3 (baseline ~0.9) Received 500mL bolus of NSS in ED, additional 500mL bolus of LR ordered Trend daily BMP Plan: FEN: heart-healthy, DM2 diet, IVF as above Code status: full code DVT ppx: lovenox Dispo: PCU telemetry Admission and Anticipated Discharge Date Admission Date: January 13, 2022 Subjective pt remains weak, unsteady on her feet, improved chest pain and productive cough Review of Systems Review of Systems: moderate distress and fatigue no headache, no visual changes no speech or swallowing issues no chest pain, pressure or palpitations shortness of breath, productive cough no wheezes no abdominal pain, nausea or vomiting, diarrhea or constipation no dysuria, hematuria or frequency no focal joint pain or swelling no back pain, CVA tenderness or radicular pain no bruising, bleeding or rashes no focal signs of weakness or numbness or altered sensation no complaints of anxiety or depression. Physical Exam Physical Exam: The patient appeared chronically ill and older than he stated age Vital signs as documented. Head exam is normocephalic atraumatic Neck is without JVD, thyromegaly, or carotid bruits. Lungs are clear to auscultation, no focal loss of breath sounds Cardiac exam, Rhythm is regular.. No murmurs, rubs or gallops. Abdominal exam reveals normal bowel sounds, soft non tender, no masses Extremities are nonedematous and both pedal pulses are present Neurologic exam is alert and oriented, no focal loss of strength or sensation cannot stand unassisted Skin is without bruises or rashes Psychologically is without concerns for anxiety or depression.. Results & Data Results & Data ([facility]) Vital Signs (Past 12 Hours) Vital Signs Pulse Pulse Resp BP BP Pulse Ox 01/13/22 11:07 106 H 24 97 01/13/22 08:18 110 H 20 150/77 H 96 01/13/22 07:43 104 H 21 97 01/13/22 07:00 104 H 21 147/86 H 93 01/13/22 05:40 89 L 01/13/22 05:26 103 H 20 167/88 H 92 01/13/22 04:00 96 H 20 133/93 94 01/13/22 02:00 86 18 162/83 H 96 PG Care Time/CCT Total # of Minutes Spent Total Time Spent with Patient: Total time spent is greater than 50% in coordination of care (as documented) at patient's floor/unit and/or counseling patient: Coding Level of Care Code 36515 Subseq Hosp Care Lvl 2 Diagnoses Chest pain R07.9 Chest pain type: unspecified COPD exacerbation J44.1 Diabetes type 2, uncontrolled E11 Glycemic state: with hyperglycemia Thrombocythemia D75.839 HTN (hypertension) I10 Chronic kidney disease N18.9 (1) Chest pain Chest pain type: unspecified Qualified Code(s): R07.9 - Chest pain, unspecified (2) Diabetes type 2, uncontrolled Glycemic state: with hyperglycemia Qualified Code(s): E11.65 - Type 2 diabetes mellitus with hyperglycemia
[2022-01-13] MEDS ORDERED: GLUCOSE 10 TABS/TUBE PO PRN (15:57)
[2022-01-13] MEDS ORDERED: CARBOHYDRATES FOR HYPOGLYCEMIA PO PRN (15:57)
[2022-01-13] MEDS ORDERED: GLUCAGON FOR INJ 1 MG VIAL SQ PRN (15:57)
[2022-01-13] MEDS ORDERED: DEXTROSE 50% 50 ML SYRINGE IV PRN (15:57)
[2022-01-13] MEDS ORDERED: GLUCOSE 40% GEL 15 GM TUBE PO PRN (15:57)
[2022-01-13] MEDS: INSULIN ASPART PER UNIT SC SCH ×2 (17:34→20:24)
--- NOTE | 2022-01-13 20:45 | Billing Data ---
Date of Service January 13, 2022 Coding Level of Care Code 98314 Initial Inpt Care Lvl 3
[2022-01-14] MEDS: MoRPHine SULFATE 2 MG/ML CARP IV PRN ×6 (02:19→23:45)
[2022-01-14] MEDS: LACTATED RINGER'S 1,000 ML IV SCH ×2 (04:30→15:33)
[2022-01-14] MEDS: ALBUT/IPRATROP 3MG/0.5MG NEB 3 ML VIAL INH SCH ×4 (07:23→19:39)
[2022-01-14] MEDS: BUDESONIDE 0.5 MG/2 ML VIAL (PULMICORT) INH SCH ×2 (07:23→19:39)
[2022-01-14] MEDS: INSULIN ASPART PER UNIT SC SCH ×4 (08:00→20:15)
[2022-01-14] MEDS: DOXYCYCLINE HYCLATE 100 MG CAP PO SCH ×2 (08:01→20:14)
[2022-01-14] MEDS: carvediloL 12.5 MG TAB PO SCH ×2 (08:01→20:13)
[2022-01-14] MEDS: dilTIAZem HCL 120 MG CAPCR PO SCH (08:01)
[2022-01-14] MEDS: ATORVASTATIN 40 MG TAB PO SCH (08:02)
[2022-01-14] MEDS: ASPIRIN 81 MG ECTAB PO SCH (08:02)
[2022-01-14] MEDS: FAMOTIDINE 20 MG in SYRINGE 3 ML IV SCH ×2 (08:03→20:14)
[2022-01-14] MEDS: UMECLIDINIUM/VILANTEROL 62.5/25MCG 7 PUFFS/INHALER INH SCH (08:03)
--- NOTE | 2022-01-14 08:20 | Hospitalist Progress Note ---
Date of Service January 14, 2022 Assessment & Plan (1) Dysphagia: Plan: Pt with significant coughing with eating alarming speeth path to make npo and have VFSS, this could explain her intermittent pulmonary distress. overall otherwise is improving (2) COPD exacerbation: Plan: chronic respiratory failure with hypoxia bronchitis, de escalate to doxycycline, coughing with eating have speech eval for aspiration risk no need for steroids at this time Pulmonary nodule Patient noted with 1.6cm groundglass focus at the right apex, unchanged from prior imaging lung nodule program consulted (3) Chest pain: Plan: Chest pain EKG: sinus tachycardia without overt ischemic change Troponin on admission negative; trend q6h x2 CXR: emphysema without sign of other acute process Pain resolved prior to my interview with patient Admit to med/surg telemetry Received ASA 324mg in ED, continue 81mg qd Abdominal pain LFT's wnl, amylase and lipase wnl, patient afebrile, no leukocytosis CT abdomen/pelvis without acute inflammatory or infectious process Zofran prn, miralax prn Continue to monitor (4) Chronic kidney disease: Plan: CKD3 Creatinine on admission 1.3 now 0.88 improved with hydration (5) HTN (hypertension): Plan: HTN BP slightly elevated at this time, no ACS symptoms at time of interview Continue home carvedilol, diltiazem HLD Continue home atorvastatin, ASA (6) Diabetes type 2, uncontrolled: Plan: DM2 HbA1c 8.3% (05/2021); repeat value ordered Patient's home regimen held on admission Continue BSG checks, sliding-scale insulin, hypoglycemic protocol (7) Thrombocythemia: Plan: Chronic thrombocythemia Unlikely related to presenting symptoms Peripheral smear, JAK2 testing ordered Plan: FEN:npo until swallowing issue is completed, resume IVF -01/14/22 Code status: full code DVT ppx: lovenox Dispo: med telemetry Admission and Anticipated Discharge Date Admission Date: January 13, 2022 Subjective pt was feeling "good" but was having significant choking with eating so much so was made npo by speech and will have VFSS 01/14/22 Review of Systems Review of Systems: moderate distress and fatigue no headache, no visual changes no speech or swallowing issues no chest pain, pressure or palpitations mild shortness of breath, may be at baseline productive cough worsened with eating no abdominal pain, nausea or vomiting, diarrhea or constipation no dysuria, hematuria or frequency no focal joint pain trace le swelling no back pain, CVA tenderness or radicular pain no bruising, bleeding or rashes no focal signs of weakness or numbness or altered sensation no complaints of anxiety or depression. Physical Exam 2 Physical Exam: The patient appeared chronically ill and older than he stated age Vital signs as documented. Head exam is normocephalic atraumatic Neck is without JVD, thyromegaly, or carotid bruits. Lungs are relatively clear with dminished sounds at bases and bronchial breath sounds Cardiac exam, Rhythm is regular.. No murmurs, rubs or gallops. Abdominal exam reveals normal bowel sounds, soft non tender, no masses Extremities are b/l trace edematous and both pedal pulses are present Neurologic exam is alert and oriented, no focal loss of strength or sensation cannot stand unassisted Skin is without bruises or rashes Psychologically is without concerns for anxiety or depression.. Results & Data Results & Data ([facility]) Vital Signs (Past 12 Hours) Vital Signs Temp Pulse Pulse Pulse Resp BP BP 01/14/22 07:23 80 18 01/14/22 07:05 98.2 F 71 21 159/54 H 01/14/22 03:24 98.8 F 89 18 163/77 H 01/13/22 22:37 98.4 F 91 H 20 170/70 H 01/13/22 22:18 91 H Pulse Ox 01/14/22 07:23 96 01/14/22 07:05 96 01/14/22 03:24 95 01/13/22 22:37 97 01/13/22 22:18 PG Care Time/CCT Total # of Minutes Spent Total Time Spent with Patient: Total time spent is greater than 50% in coordination of care (as documented) at patient's floor/unit and/or counseling patient: Coding Level of Care Code 25984 Subseq Hosp Care Lvl 3 Diagnoses Chest pain R07.9 Chest pain type: unspecified Chronic kidney disease N18.9 HTN (hypertension) I10 COPD exacerbation J44.1 Diabetes type 2, uncontrolled E1165 Glycemic state: with hyperglycemia Thrombocythemia D75.839 Dysphagia R13.10 (1) Diabetes type 2, uncontrolled Glycemic state: with hyperglycemia Qualified Code(s): E11.65 - Type 2 diabetes mellitus with hyperglycemia (2) Chest pain Chest pain type: unspecified Qualified Code(s): R07.9 - Chest pain, unspecified
[2022-01-14 08:50] LABS: Basophils # (auto) 0.03 K/uL (0-0.2); Basophils % (auto) 0.2 %; Eosinophils % (auto) 0.8 %; Hematocrit (blood only) 35.1 % (37-47); Hemoglobin 10.1 g/dL (12.0-16.0); Immature Granulocytes # (auto) 0.03 K/uL (0.00-0.02); Immature Granulocytes % (auto) 0.2 %; Lymphocytes # (auto) 2.11 K/uL (1.2-3.4); Lymphocytes % (auto) 15.9 %; Mean Corpuscular Hemoglobin 24.1 pg (25-34); Mean Corpuscular Hgb Conc 28.8 g/dL (32-36); Mean Corpuscular Volume 83.8 fL (80-100); Mean Platelet Volume 9.2 fL (7.4-10.4); Monocytes # (auto) 0.82 K/uL (0.11-0.59); Monocytes % (auto) 6.2 %; Neutrophils # (auto) 10.15 K/uL (1.4-6.5); Neutrophils % (auto) 76.7 %; Platelet Count 555 K/uL (130-400); RDW Coefficient of Variation 19.1 % (11.5-14.5); RDW Standard Deviation 57.8 fL (36.4-46.3); Red Blood Count 4.19 M/uL (4.2-5.4); White Blood Count 13.24 K/uL (4.8-10.8)
[2022-01-14 08:51] LABS: Albumin Globulin Ratio 1.4 (0.9-2); Albumin Level 3.6 gm/dl (3.4-5.0); BUN Creatinine Ratio 21.6 (10-20); Bilirubin,Total 0.3 mg/dl (0.2-1.0); Calcium 9.2 mg/dl (8.5-10.1); Est GFR (African American) 77.2 ml/min; Est GFR (Non-African American) 66.6 ml/min; Globulin 2.5 gm/dl (2.5-4.0); Magnesium 1.7 mg/dl (1.7-2.4); Phosphorus 3.1 mg/dl (2.5-4.9); Potassium 4.6 mmol/L (3.5-5.1); Total Protein 6.1 gm/dl (6.0-8.3)
[2022-01-14 09:40] LABS: Estimated Average Glucose 183 mg/dl
[2022-01-14] MEDS ORDERED: SODIUM CHLORIDE 0.9% 1000ML 1,000 ML IV SCH (12:45)
--- NOTE | 2022-01-14 14:18 | Fluoroscopy Report ---
FL video swallow CLINICAL HISTORY: 72 years-old Female with choking at meals. Dysphasia with eating TECHNIQUE: Video fluoroscopic evaluation of swallowing was performed in the AP and lateral projection s by the speech pathology staff. The patient is fed thin liquid, mildly thick liquid, pudding and craps manager cker with paste consistencies. FLUOROSCOPY TIME: 2.7 minutes. COMPARISON STUDY: CTA chest 01/12/2022 FINDINGS: There is normal hyoid excursion and epiglottic deflection. No significant penetration or as piration identified. Mild oral pharyngeal dysmotility is noted with mildly thick and pudding consiste ncies. IMPRESSION: 1. No aspiration identified. 2. Please see the speech pathologist report for detailed findings and recommendations. ACT 112: Negative or not required by law. Electronically signed by: Israel Sharma M.D. 01/14/2022 2:16 PM
[2022-01-15] MEDS: MoRPHine SULFATE 2 MG/ML CARP IV PRN ×5 (04:00→20:21)
[2022-01-15] MEDS: LACTATED RINGER'S 1,000 ML IV SCH ×2 (04:57→15:47)
[2022-01-15] MEDS: ALBUT/IPRATROP 3MG/0.5MG NEB 3 ML VIAL INH SCH ×4 (07:22→19:25)
[2022-01-15] MEDS: BUDESONIDE 0.5 MG/2 ML VIAL (PULMICORT) INH SCH ×2 (07:22→19:25)
[2022-01-15] MEDS: INSULIN ASPART PER UNIT SC SCH ×4 (08:05→20:24)
[2022-01-15] MEDS: UMECLIDINIUM/VILANTEROL 62.5/25MCG 7 PUFFS/INHALER INH SCH (08:06)
[2022-01-15] MEDS: ASPIRIN 81 MG ECTAB PO SCH (08:06)
[2022-01-15] MEDS: dilTIAZem HCL 120 MG CAPCR PO SCH (08:06)
[2022-01-15] MEDS: DOXYCYCLINE HYCLATE 100 MG CAP PO SCH ×2 (08:06→20:20)
[2022-01-15] MEDS: carvediloL 12.5 MG TAB PO SCH ×2 (08:06→20:20)
[2022-01-15] MEDS: ATORVASTATIN 40 MG TAB PO SCH (08:06)
[2022-01-15] MEDS: FAMOTIDINE 20 MG in SYRINGE 3 ML IV SCH ×2 (08:06→20:21)
--- NOTE | 2022-01-15 09:18 | Hospitalist Progress Note ---
Date of Service January 15, 2022 Assessment & Plan (1) Dysphagia: Plan: Pt with significant coughing with eating alarming speeth path to make npo and have VFSS, this could explain her intermittent pulmonary distress. overall otherwise is improving (2) COPD exacerbation: Plan: chronic respiratory failure with hypoxia bronchitis, de escalate to doxycycline, coughing with eating have speech eval for aspiration risk no need for steroids at this time Pulmonary nodule Patient noted with 1.6cm groundglass focus at the right apex, unchanged from prior imaging lung nodule program consulted (3) Chest pain: Plan: Chest pain EKG: sinus tachycardia without overt ischemic change Troponin on admission negative; trend q6h x2 CXR: emphysema without sign of other acute process Pain resolved prior to my interview with patient Admit to med/surg telemetry Received ASA 324mg in ED, continue 81mg qd Abdominal pain LFT's wnl, amylase and lipase wnl, patient afebrile, no leukocytosis CT abdomen/pelvis without acute inflammatory or infectious process Zofran prn, miralax prn Continue to monitor (4) Chronic kidney disease: Plan: meek resoloved with CKD3 Creatinine on admission 1.3 now 0.88 improved with hydration (5) HTN (hypertension): Plan: HTN BP slightly elevated at this time, no ACS symptoms at time of interview Continue home carvedilol, diltiazem HLD Continue home atorvastatin, ASA (6) Diabetes type 2, uncontrolled: Plan: DM2 HbA1c 8.3% (05/2021); repeat value ordered Patient's home regimen held on admission Continue BSG checks, sliding-scale insulin, hypoglycemic protocol (7) Thrombocythemia: Plan: Chronic thrombocythemia Unlikely related to presenting symptoms Peripheral smear, JAK2 testing ordered Plan: FEN:npo until swallowing issue is completed, resume IVF -01/14/22 Code status: full code DVT ppx: lovenox Dispo: med telemetry PT evaluation shows per performance status is adequate to go home with continued PT in the hospital and home health at discharge Admission and Anticipated Discharge Date Admission Date: January 13, 2022 Subjective Patient had a variable day she had presyncopal event when she was down for barium swallow which she said is secondary to anxiety but she could not complete the test. Poorly all staff reports her coughing violently when she eats despite the fact she clears her tray. GI consultation will be undertaken for possible upper endoscopy on 01/16/2022. Certainly could have a player and pulmonary infections if she is having some coughing although she did not have overt aspiration on her video swallowing study as evidenced by speech pathology's note Review of Systems Review of Systems: moderate distress and fatigue no headache, no visual changes no speech or swallowing issues no chest pain, pressure or palpitations mild shortness of breath, may be at baseline productive cough worsened with eating no abdominal pain, nausea or vomiting, diarrhea or constipation no dysuria, hematuria or frequency no focal joint pain trace le swelling no back pain, CVA tenderness or radicular pain no bruising, bleeding or rashes no focal signs of weakness or numbness or altered sensation no complaints of anxiety or depression. Physical Exam Physical Exam: The patient appeared chronically ill and older than he stated age Vital signs as documented. Head exam is normocephalic atraumatic Neck is without JVD, thyromegaly, or carotid bruits. Lungs are relatively clear with dminished sounds at bases and bronchial breath sounds Cardiac exam, Rhythm is regular.. No murmurs, rubs or gallops. Abdominal exam reveals normal bowel sounds, soft non tender, no masses Extremities are b/l trace edematous and both pedal pulses are present Neurologic exam is alert and oriented, no focal loss of strength or sensation cannot stand unassisted Skin is without bruises or rashes Psychologically is without concerns for anxiety or depression.. Results & Data Results & Data ([facility]) Vital Signs (Past 12 Hours) Vital Signs Temp Pulse Pulse Resp BP Pulse Ox 01/15/22 07:29 67 01/15/22 07:22 72 20 94 01/15/22 06:22 98.1 F 74 20 152/71 H 90 01/15/22 02:58 97.9 F 74 20 148/66 H 98 01/14/22 23:50 98.2 F 86 18 181/80 H 94 01/14/22 22:18 81 PG Care Time/CCT Total # of Minutes Spent Total Time Spent with Patient: Total time spent is greater than 50% in coordination of care (as documented) at patient's floor/unit and/or counseling patient: Coding Level of Care Code 93627 Subseq Hosp Care Lvl 2 Diagnoses Dysphagia R13.10 COPD exacerbation J44.1 Chest pain R07.9 Chest pain type: unspecified Chronic kidney disease N18.9 HTN (hypertension) I10 Diabetes type 2, uncontrolled E11.65 Glycemic state: with hyperglycemia Thrombocythemia D75.839 (1) Diabetes type 2, uncontrolled Glycemic state: with hyperglycemia Qualified Code(s): E11.65 - Type 2 diabetes mellitus with hyperglycemia (2) Chest pain Chest pain type: unspecified Qualified Code(s): R07.9 - Chest pain, unspecified
--- NOTE | 2022-01-15 12:00 | Gastrointestinal Consultation ---
Date of Consultation January 15, 2022 Assessment & Plan (1) Dysphagia: Video swallow indicating mild oropharyngeal dysphagia. Study was without aspiration. -Keep NPO after midnight. -EGD on 01/16/22 if respiratory status stable. -Protonix 40 mg BID. Take 30 minutes prior to breakfast & dinner. Supervising Physician Co-Signing Physician Notes Agree with THA Johnson as above Abd: Soft, NT, ND, +BS Will plan on EGD in AM Continue current therapy and supportive care History of Present Illness Reason for Consultation: Dysphagia Attending Physician: Marcelo Witt MD History of Present Illness Patient is a 72 yo female with CKD, HTN, thrombocytopenia, chronic low back pain, AAA, left peroneal nerve palsy, DM2, DJD, who is currently hospitalized for an acute COPD exacerbation. GI has been consulted for dysphagia. She was evaluated by [employer] and had a video swallow. She did not aspirate during the study. She was noted to have mild oropharyngeal dysphagia. GI consult requested to assess for esophageal dysfunction contributing to her symptoms. Patient is currently saturating at 93% on 3 L O2. Patient is resting comfortably in bed and has an empty lunch try by her side. She denies any difficulties swallowing it. Per her hospitalist team, she was unable to have a barium swallow as she felt anxious about it. No specific personal GI history. No family history of GI malignancy. It is unclear if she has ever had either EGD or colonoscopy. Allergies Allergy/AdvReac Type Severity Reaction Status Date / Time diflunisal Allergy Unknown HEART RACES Verified 11/29/21 14:38 Home Medications Medication Instructions Recorded Confirmed Type albuterol sulfate 90 mcg/actuation 2 puff INHALATION Q6 PRN 08/28/20 01/12/22 History aerosol inhaler (Ventolin HFA) aspirin 81 mg tablet,delayed 81 mg PO QAM 08/28/20 01/12/22 History release (Aspirin Low Dose) atorvastatin 40 mg tablet (Lipitor) 40 mg PO QAM 08/28/20 01/12/22 History budesonide 0.5 mg/2 mL suspension 0.5 mg INHALATION BID 08/28/20 01/12/22 History for nebulization (Pulmicort) carvedilol 12.5 mg tablet (Coreg) 12.5 mg PO BID 08/28/20 01/12/22 History empagliflozin 10 mg tablet 10 mg PO QAM 08/28/20 01/12/22 History (Jardiance) metformin 1,000 mg tablet 1,000 mg PO BID 08/28/20 01/12/22 History ipratropium 0.5 mg-albuterol 3 mg 3 ml INHALATION QID PRN 09/25/20 01/12/22 History (2.5 mg base)/3 mL nebulization soln oxycodone 5 mg tablet (Roxicodone) 5 mg PO TID PRN 05/13/21 01/12/22 History blood sugar diagnostic (OneTouch #50 ea 06/02/21 Rx Verio test strips) blood-glucose meter (OneTouch #1 ea 06/02/21 Rx Verio Meter) lancets 33 gauge (OneTouch Delica #100 ea 06/02/21 Rx Lancets) ferrous sulfate 325 mg (65 mg 325 mg PO BID 09/02/21 01/12/22 History iron) tablet (Iron (ferrous sulfate)) tiotropium 2.5 mcg-olodaterol 2.5 2 spray INHALATION QAM 09/02/21 01/12/22 History mcg/actuation mist for inhalation (Stiolto Respimat) diltiazem HCl 120 mg 120 mg PO DAILY 01/12/22 01/12/22 History capsule,extended release 24 hr Patient History Medical History (Updated 01/15/22 @ 09:17 by Marcelo Witt MD) AAA (abdominal aortic aneurysm) Acute hypotension Acute UTI Chronic low back pain COPD exacerbation Diabetes type 2, uncontrolled Diaphragmatic hernia (10/31/11) History of knee replacement Left peroneal nerve palsy Respiratory failure Syncope Surgical History H/O Achilles tendon repair (~2007) H/O: hysterectomy History of appendectomy History of bilateral oophorectomies History of lithotripsy (~2007) Hx of cholecystectomy Family History Other Family history non-contributory Social History Smoking Status: Current every day smoker Tobacco Type: Cigarettes Second Hand Exposure: No; Hx Alcohol Use: No Hx Substance Use: No Preferred Language: Scottish Communication Ability: Effective Spare Person Required: No Beliefs That Will Affect Care: None marital status: Current Living Situation: Spouse How many Children do You have: 3 Feels Safe at Home: Yes Assistive Devices: Oxygen - Continuous Review of Systems Constitutional: no fever and no chills Respiratory: + cough and + dyspnea on exertion Cardiovascular: no chest pain Gastrointestinal: no abdominal pain and no dysphagia (patient denies this when questioned) Musculoskeletal: no problem reported Psychiatric: no problem reported Physical Exam Constitutional: WD/WN, vitals as above Respiratory: + cough; no respiratory distress decreased breath sounds Cardiovascular: Rate/Rhythm: regular rate and regular rhythm Gastrointestinal (Abdomen): normal bowel sounds, soft, nontender, no hepatosplenomegaly Musculoskeletal: Head/Neck/Chest: normocephalic Skin: no jaundice Psychiatric: Orientation: alert and oriented x 3 Results & Data ([facility]) Vital Signs (Past 12 Hours) Vital Signs Temp Pulse Pulse Resp BP BP Pulse Ox 01/15/22 11:12 36.6 C 75 20 159/73 H 93 01/15/22 07:29 67 01/15/22 07:22 72 20 94 01/15/22 06:22 36.7 C 74 20 152/71 H 90 01/15/22 02:58 36.6 C 74 20 148/66 H 98 PG Care Time/CCT Total # of Minutes Spent Total Time Spent with Patient: Total time spent is greater than 50% in coordination of care (as documented) at patient's floor/unit and/or counseling patient: Coding Level of Care Code 11531 Initial Inpt Care Lvl 3 Diagnoses Dysphagia R13.10
[2022-01-15] MEDS: PANTOprazole 40 MG in SYRINGE 0 ML IV SCH ×2 (14:37→20:34)
[2022-01-15] MEDS ORDERED: NITROGLYCERIN 2% OINTMENT 30GM TUBE EXT ONE (19:32)
[2022-01-16] MEDS: MoRPHine SULFATE 2 MG/ML CARP IV PRN ×3 (03:55→12:08)
[2022-01-16] MEDS: LACTATED RINGER'S 1,000 ML IV SCH (04:28)
[2022-01-16] MEDS ORDERED: Nursing to Pharmacy Communication SCH ×3 (04:30→10:45)
[2022-01-16] MEDS: ALBUT/IPRATROP 3MG/0.5MG NEB 3 ML VIAL INH SCH ×3 (07:14→14:14)
[2022-01-16] MEDS: BUDESONIDE 0.5 MG/2 ML VIAL (PULMICORT) INH SCH (07:14)
[2022-01-16] MEDS ORDERED: INSULIN ASPART PER UNIT SC SCH ×2 (07:30→11:30)
[2022-01-16] MEDS: UMECLIDINIUM/VILANTEROL 62.5/25MCG 7 PUFFS/INHALER INH SCH (08:11)
[2022-01-16] MEDS: ASPIRIN 81 MG ECTAB PO SCH (08:12)
[2022-01-16] MEDS: DOXYCYCLINE HYCLATE 100 MG CAP PO SCH (08:12)
[2022-01-16] MEDS: PANTOprazole 40 MG in SYRINGE 0 ML IV SCH (08:12)
[2022-01-16] MEDS: dilTIAZem HCL 120 MG CAPCR PO SCH (08:12)
[2022-01-16] MEDS: carvediloL 12.5 MG TAB PO SCH (08:12)
[2022-01-16] MEDS: ATORVASTATIN 40 MG TAB PO SCH (08:12)
[2022-01-16] MEDS: FAMOTIDINE 20 MG in SYRINGE 3 ML IV SCH (08:15)
--- NOTE | 2022-01-16 10:09 | History & Physical Bridge Note ---
Date of Service January 16, 2022 History & Physical Bridge Note I have examined the patient, reviewed the History & Physical and in the interval since the performance of the History & Physical I have noted the following changes of clinical significance: no changes noted. The patient was to have an EGD for evaluation of dysphagia. Patient has been NPO, but she is currently refusing an EGD. She reports she doesn't have trouble swallowing and wants to go home to eat. Supervising Physician Co-Signing Physician Notes Agree with THA Johnson as above Patient is refusing EGD at present. She will undergo EGD as outpatient if she desires.
--- NOTE | 2022-01-16 11:58 | Electrocardiogram Report ---
Test Reason : Blood Pressure : / mmHG Vent. Rate : 072 BPM Atrial Rate : 072 BPM P-R Int : 144 ms QRS Dur : 084 ms QT Int : 404 ms P-R-T Axes : 055 020 067 degrees QTc Int : 442 ms Poor data quality, interpretation may be adversely affected Normal sinus rhythm Normal ECG When compared with ECG of 12-JAN-2022 20:15, No significant change was found Confirmed by Lion Diego ([id number]) on 01/16/2022 11:57:34 AM Referred By: REFERRED SELF Confirmed By:Yvan Diego
--- NOTE | 2022-01-16 19:01 | Discharge Summary ---
Date of Service January 16, 2022 Admission HPI Per Admitting Provider 71 year old female with PMHx COPD, DMII, HTN, HLD, CKD, AAA presents with a 3-4 day history of URI symptoms. Patient is a poor historian. Patient reports that she developed fatigue about four days ago and felt feverish. About three days ago, patient developed loose stools and nausea; patient endorses vomiting once, there was no blood apparent. Patient reported a 3-4 day history of chest pain to the ED provider, but denied chest pain during my interview. Patient also endorses a one-day history of back pain, SOB, cough, and vertigo ("Does it feel like the room is spinning?" - "yes"). Denies objective fever, denies recent congestion, sore throat, palpitations, dysuria, numbness, or tingling. Principal Diagnosis COPD exacerbation, concern on aspiration Discharge Exam In general she is awake and alert, is upset about wanting to go home and a bit difficult to redirect, even as I am discussing with her how to safely get her home today she refuses eye contact and puts her head down at times. Once it is clear that I am not leaving until have been able to discuss her situation with her, then she makes eye contact and converses more pleasantly. HEENT normocephalic atraumatic mucous membranes are moist. Lungs clear no rales rhonchi or wheezes. Musculoskeletal shows bilateral paraspinal hypertonicity and tendernessgentle direct myofascial. Neuro without focal deficits. Discharge Data Allergies Allergy/AdvReac Type Severity Reaction Status Date / Time diflunisal Allergy Unknown HEART RACES Verified 11/29/21 14:38 Consultations 01/13/22 00:42 ED Decision to Admit Stat 01/13/22 15:39 Consult Lung Nodule Program Routine 01/15/22 11:28 Consult Gastroenterology Routine 01/16/22 10:46 Consult [facility] newspaper subscription solicitor Routine Procedures Performed Operation Date: 01/16/22 16:30 <No data on this case meets the specified criteria> Ordered Studies 01/12/22 20:44 CT abd pelvis IV con only Stat CT angio chest PE protocol Stat 01/14/22 13:30 FL video swallow Routine Hospital Course (1) Dysphagia: Pt with significant coughing with eating alarming speeth path to make npo and have VFSS, but no overt aspiration noted. Further GI work-up to include EGD, however patient was adamant about going homeshe noted she wants to get the EGD done, and it was to be able to be done at 2:00 today, and I discussed with her that we could still almost certainly get her home later today afterwards saving her return trips as an outpatient. She however insisted on going home this morning. Discussed modified diet in case she has any degree of food sticking/stricture between now and when she eventually gets EGD done. (2) COPD exacerbation: chronic respiratory failure with hypoxia See above, concern is whether or not aspiration might be exacerbating COPD. At this point stable for home, finish a course of doxycycline Pulmonary nodule Patient noted with 1.6cm groundglass focus at the right apex, unchanged from prior imaging lung nodule program consulted (3) Chest pain: Chest pain EKG: sinus tachycardia without overt ischemic change Troponin on admission negative; trend q6h x2 CXR: emphysema without sign of other acute process Pain resolved Abdominal pain LFT's wnl, amylase and lipase wnl, patient afebrile, no leukocytosis CT abdomen/pelvis without acute inflammatory or infectious process Zofran prn, miralax prn No complaints of this today (4) Chronic kidney disease: meek resolved, baseline CKD 3. Outpatient follow-up (5) HTN (hypertension): HTN BP slightly elevated at this time, no ACS symptoms at time of interview Continue home carvedilol, diltiazem HLD Continue home atorvastatin, ASA (6) Diabetes type 2, uncontrolled: DM2 HbA1c 8. (7) Thrombocythemia: Chronic thrombocythemia Unlikely related to presenting symptoms Peripheral smear, JAK2 testing ordered Outpatient follow-up Was for EGD today, then likely home later. Patient insisted on going home this morninghopefully EGD as outpatient if she allows. Finish course of antibiotics Total Time Total Time Spent Total Time Spent (In Minutes): Less than 30 Discharge Plan Discharge Items Patient Disposition: Home - Home Health Services Reason For Visit: Chest Pain Discharge Diagnosis: pneumonia Activity: Resume your previous activity Non-emergency contact: Primary Care Provider and Regional Sales Leader Call non-emergency contact if: you have any medication questions and your symptoms worsen Follow-up/Referrals: Karo Champagne CRNP [Primary Care Provider] - (PLEASE CALL YOUR PRIMARY CARE PROVIDER TO SCHEDULE A DISCHARGE FOLLOW-UP APPOINTMENT WITHIN 7-10 DAYS.) Diet: Carb Consistent or DM2 and Low Sodium (2gm) Addtl Attending Provider Instructions: COPD exacerbation -the biggest concern is that you're having some (mild) difficulty with swallowin g - and that this could be leading to food going down the wrong pipe (aspirating) and going into your lungs instead of your stomach. this obviously is then very irritating on your lungs and might be the reason that your COPD flared up -fortunately the speech therapy // swallowing therapist evaluation looked pretty reassuring - you still could have some degree of aspiration going on, but fortunately it's not overt and really bad. the next step in this respect was to have the gastroenterologists do a scope (EGD) to look especially at your esophagus for any tightness/scar tissue/stricture that could make food stick -- which can lead to aspiration just of food backs up and then "boils over" from your esophagus into your airway. they were going to be able to do this later today, but since you needed to get home to look after your , we can work on getting it rescheduled -between now and when the scope gets rescheduled, please assume that you might have stuff stick - so that you stay on the safe side. foods that most commonly get stuck are things like breads and chicken -- so probably best to minimize or avoid those foods until you've had the scope done. additionally, chew your food really thoroughly, and wash everything down with liquids between bites. stay upright when you're eating so that gravity helps move things the right direction, and go slowly when you eat. -when they do the scope, if everything ends up looking good, then this would end up being just a "regular" flare up of COPD all along --we'll finish out a course of antibiotics with doxycycline (the same antibiotic you've been on here) -- we'll need to treat for a total of 7 days -- so you'll have tonight's dose before bedtime, and then another 3 days, to finish out 7 days total. take it with food and a full glass of water -between now and when they get the scope done, we'll also try to protect your esophagus from acid (in case there is stricture or scarring) with pantoprazole (protonix) twice a day -- if the scope ends up looking fine then this would not need to be a permanent part of your medications follow up with your PCP ideally in a few days to recheck how you're feeling / how you're doing Pending Studies at Discharge: No Stand-Alone Forms: My [facility], Smoking Cessation Medications and DC Order Prescriptions: New doxycycline hyclate 100 mg Capsule 100 mg PO BID Qty: 7 RF: 0 pantoprazole [Protonix] 40 mg tablet,delayed release (DR/EC) 40 mg PO BID 14 Days Qty: 28 RF: 0 Continued ipratropium-albuterol 0.5 mg-3 mg(2.5 mg base)/3 mL solution for nebulization 3 ml INHALATION QID PRN (Reason: Shortness Of Breath Or Wheezing) RF: 0 atorvastatin [Lipitor] 40 mg tablet 40 mg PO QAM RF: 0 carvedilol [Coreg] 12.5 mg tablet 12.5 mg PO BID RF: 0 budesonide [Pulmicort] 0.5 mg/2 mL suspension for nebulization 0.5 mg inhalation BID RF: 0 aspirin [Aspirin Low Dose] 81 mg Tablet,Delayed Release (Dr/Ec) 81 mg PO QAM RF: 0 albuterol sulfate [Ventolin HFA] 90 mcg/actuation HFA aerosol inhaler 2 puff INHALATION Q6 PRN (Reason: Shortness Of Breath Or Wheezing) RF: 0 metformin 1,000 mg tablet 1,000 mg PO BID RF: 0 Jardiance 10 mg tablet 10 mg PO QAM RF: 0 oxycodone [Roxicodone] 5 mg tablet 5 mg PO TID PRN (Reason: Pain) RF: 0 (DME) blood-glucose meter [OneTouch Verio Meter] [facility] [place] See Rx Instructions .ROUTE .MEDSUPPLY Qty: 1 RF: 0 (DME) OneTouch Verio test strips Strip See Rx Instructions .ROUTE .MEDSUPPLY Qty: 50 RF: 3 (DME) lancets [OneTouch Delica Lancets] 33 gauge misc See Rx Instructions .ROUTE .MEDSUPPLY Qty: 100 RF: 3 ferrous sulfate [Iron (ferrous sulfate)] 325 mg (65 mg iron) tablet 325 mg PO BID RF: 0 Stiolto Respimat 2.5-2.5 mcg/actuation mist 2 spray INHALATION QAM RF: 0 diltiazem HCl 120 mg capsule,extended release 24hr 120 mg PO DAILY RF: 0 Discharge Orders: Discharge Order (Routine); Ordered 01/16/22 Ordered By: Elliot Cobb/Other Patient Handouts: Managing Type 2 Diabetes Admission Data Admit Date/Time: 01/13/22 04:01 Attending Provider: Elliot Moran Admit Provider: Nicolas Aguilar Primary Care Provider: Karo Champagne Other Providers: Danie Mckay ; Wyatt Pearl Other Interventions: Discharge Summary Assessment (RN) Last Done: 01/16/22 10:53 Coding Level of Care Code D/C DAY MANAGEMENT >30 MINS Diagnoses Dysphagia R13.10 COPD exacerbation J44.1 Chest pain R07.9 Chest pain type: unspecified Chronic kidney disease N18.9 HTN (hypertension) I10 Diabetes type 2, uncontrolled E11.65 Glycemic state: with hyperglycemia Thrombocythemia D75.839
--- NOTE | 2022-01-22 14:23 | Coding Query ---
To promote full compliance with coding requirements relating to patient care, provider participation is requested in all cases of motion picture operator uncertainty. Please assist us with the question(s) below: Coding Question(s): The diagnosis(es) of acute on chronic respiratory failure with hypoxia was documented in the progress notes but then chronic respiratory failure with hypoxia documneted on the discharge summary. Please indicate if acute is still a possible part of this diagnosis or ruled out. Physician's Response(s): ACUTE ON CHRONIC RESPIRATORY FAILURE WITH HYPOXIA ( x) Diagnosed and POA ( ) Diagnosed and not POA ( ) Ruled out ( ) Other (please specify) Thank you for your assistance, Cornelia Perdue - Head Animal Keeper GISELLA
== END 2022-01-16 14:26 | disposition home health service (06) | DRG 190 ==
LOC: ED 20:03 → EDINP 01-13 04:01 → SUATTDRO 01-13 04:01 → 2W 01-13 05:26

== ENCOUNTER 2022-03-10 18:01 | Inpatient (IN) ==
[2022-03-10] MEDS ORDERED: SODIUM CHLORIDE 0.9% 1000ML 1,000 ML IV ONE (18:10)
[2022-03-10] MEDS ORDERED: methylPREDNISolone 125 MG/2 ML VIAL IV STA (18:10)
[2022-03-10] MEDS ORDERED: ALBUT/IPRATROP 3MG/0.5MG NEB 3 ML VIAL NEB ONE (18:10)
[2022-03-10] MEDS ORDERED: guaiFENesin 600 MG TABCR PO STA (18:10)
[2022-03-10] MEDS ORDERED: oxyCODONE HCL IR 5 MG TAB (IMMEDIATE RELEASE) PO STA (18:12)
[2022-03-10 18:23] LABS: Basophils # (auto) 0.02 K/uL (0-0.2); Basophils % (auto) 0.3 %; Eosinophils # (auto) 0.16 K/uL (0-0.5); Eosinophils % (auto) 2.3 %; Hematocrit (blood only) 36.2 % (37-47); Hemoglobin 10.6 g/dL (12.0-16.0); Immature Granulocytes # (auto) 0.02 K/uL (0.00-0.02); Immature Granulocytes % (auto) 0.3 %; Lymphocytes # (auto) 1.48 K/uL (1.2-3.4); Lymphocytes % (auto) 21.1 %; Mean Corpuscular Hemoglobin 25.7 pg (25-34); Mean Corpuscular Hgb Conc 29.3 g/dL (32-36); Mean Corpuscular Volume 87.7 fL (80-100); Mean Platelet Volume 9.8 fL (7.4-10.4); Monocytes # (auto) 0.74 K/uL (0.11-0.59); Monocytes % (auto) 10.5 %; Neutrophils % (auto) 65.5 %; Platelet Count 459 K/uL (130-400); RDW Coefficient of Variation 18.8 % (11.5-14.5); RDW Standard Deviation 59.4 fL (36.4-46.3); Red Blood Count 4.13 M/uL (4.2-5.4); White Blood Count 7.02 K/uL (4.8-10.8)
--- NOTE | 2022-03-10 18:27 | Emergency Department Note ---
Impression & Plan Acute on chronic respiratory failure with hypoxia and hypercapnia, COPD exacerbation, Hypomagnesemia ED Provider Note NAME: DANIELLA FLANNERY AGE: 72 SEX: F ARRIVES VIA: Ambulance INFORMANT: Patient ED PROVIDER(S): Walt Ferro MD CHIEF COMPLAINT: SOB PLAN: Disposition: Admit MEDICAL DECISION MAKING: The patient is a pleasant 72-year-old woman with a past medical history of chronic respiratory failure on home oxygen in setting of COPD, diabetes, dysphagia chronic back pain, hypertension who presents to the emergency department via EMS for worsening cough, congestion shortness of breath which she reports is evolved over the past 2 weeks where she reports having thick yellow sputum. She reports a sore throat as well and worsening of her chronic low back pain. She denies any fevers, nausea, vomiting, diarrhea or urinary symptoms. She reports she has had decreased oral intake due to not feeling well. Given DuoNeb by EMS in route as well as 50 mcg of fentanyl for her back pain. On arrival the patient is acute on chronically ill-appearing in no acute distress, afebrile with BP 170s/100s, respiratory rate in the 30s and otherwise stable vital signs. She appears clinically dry. She has diffuse wheezes with prolonged expiratory phase and mild increased work of breathing. EKG without overt acute ischemia. Chest x-ray negative for acute cardiopulmonary process. WBC within normal limits. H/H similar to prior range of values. Platelets [id number] nonspecific and similar to prior range of values. Chemistry demonstrates a bicarb of 45 in the setting of VBG with PCO2 of 76 and pH of 7.36 suggestive of chronic hypercapnia in the setting of the patient's acute on chronic respiratory failure. Lactic acid 0.6, within normal limits. Magnesium 1.5 with repletion initiated. LFTs are unremarkable. Initial high-sensitivity troponin was 5.4, within normal limits. Lipase is not elevated. UA without convincing evidence of infection. Covid-19 PCR negative. Influenza and RSV PCR negative. Upon reevaluation the patient did report feeling improved after IV fluid hydration, Solu-Medrol, guaifenesin, hour-long continuous DuoNeb. However, given the patient's severity of her COPD flare she does agree with plan for admission. Wi ll initiate treatment with a azithromycin for COPD exacerbation. Case was discussed with Dr. Mckay, [facility] hospitalist, who will evaluate the patient for admission. Triage Nursing notes reviewed and agree them. Prior medical records reviewed Vital Signs: reviewed and remarkable for HTN, and tachypnea. Differential diagnosis: Reactive airway disease, pneumonia, pneumothorax, COPD, CHF, infections, cardiac ischemia, pulmonary embolism, musculoskeletal, gastrointestinal, as well as other pathologies. ER treatment provided: See below. Diagnostics interpreted by me: ECG: Normal sinus rhythm, 84 bpm, no ectopy, no overt ST elevation or d epression, QTC 477, QRS 88 Cardiac Monitoring: An order for continuous cardiac monitoring was placed and demonstrated Normal sinus rhythm, 84 bpm, no ectopy. Laboratory studies: See below Imaging studies: See below Consultation(s): Case was discussed with Dr. Mckay, [facility] hospitalist, who will evaluate the patient for admission. HPI: The patient is a pleasant 72-year-old woman with a past medical history of chronic respiratory failure on home oxygen in setting of COPD, diabetes, dysphagia chronic back pain, hypertension who presents to the emergency department via EMS for worsening cough, congestion shortness of breath which she reports is evolved over the past 2 weeks where she reports having thick yellow sputum. She reports a sore throat as well and worsening of her chronic low back pain. She denies any fevers, nausea, vomiting, diarrhea or urinary symptoms. She reports she has had decreased oral intake due to not feeling well. Given DuoNeb by EMS in route as well as 50 mcg of fentanyl for her back pain. ROS: See above HPI for pertinent positives & negatives. A total of 10 systems reviewed and were otherwise negative. VITALS:See Below PHYSICAL EXAMINATION: GENERAL: Awake, alert, acute on chronically ill-appearing, in no distress HENT: Normocephalic, atraumatic. Oropharynx with dry mucous membranes and otherwise unremarkable. EYES: Normal conjunctiva. Sclera non-icteric. NECK: Supple. No nuchal rigidity. FROM. No JVD. RESPIRATORY: Diffuse wheezes bilaterally with prolonged expiratory phase. Mild increased work of breathing. CARDIAC: Regular rate, normal rhythm. Extremities warm and well perfused. Pulses equal. ABDOMEN: Soft, non-distended. No tenderness to palpation. No rebound or guarding. No masses. RECTAL: Deferred. MUSCULOSKELETAL: Chest examination reveals no tenderness. The back is symmetrical on inspection without obvious abnormality. There is no CVA tenderness to palpation. No joint edema. LOWER EXTREMITIES: Calves are equal size bilaterally and non-tender. No edema. No discoloration. NEURO: Normal sensorium. No sensory or motor deficits noted. SKIN: No rash or jaundice noted. ED COURSE: Critical Care: I have personally spent greater than 45 minutes of critical care time in the direct management of this patient. This includes bedside care, interpretation of diagnostic studies, and testing, discussion with consultants, patient, and family members, and other required patient management activities. This 45 minutes is in excess of all separately billable procedures. Walt Ferro MD Past Med/Surg History Medical History AAA (abdominal aortic aneurysm) Acute hypotension Acute UTI Chronic low back pain COPD exacerbation Diabetes type 2, uncontrolled Diaphragmatic hernia (10/31/11) History of knee replacement Left peroneal nerve palsy Respiratory failure Syncope Surgical History H/O Achilles tendon repair (~2007) H/O: hysterectomy History of appendectomy History of bilateral oophorectomies History of lithotripsy (~2007) Hx of cholecystectomy Family History Other Family history non-contributory Social History Smoking Status: Current every day smoker Tobacco Type: Cigarettes Cigarettes Per Day: half pack; Second Hand Exposure: No; Hx Alcohol Use: No Hx Substance Use: No Preferred Language: Ivorian Communication Ability: Effective [employer] Required: No Beliefs That Will Affect Care: None marital status: Current Living Situation: Spouse How many Children do You have: 3 Other Information That Helps Us Care for You: No Feels Safe at Home: Yes Safety Concerns: Feels Safe At This Time Assistive Devices: Cane, Denture - Upper, Denture - Lower, Oxygen - Continuous, Walker and Wheelchair Allergies Allergies Allergy/AdvReac Type Severity Reaction Status Date / Time diflunisal Allergy Unknown HEART RACES Verified 03/10/22 20:50 Home Meds Home Medications Medication Instructions Recorded Confirmed albuterol sulfate 90 mcg/actuation 2 puff INHALATION Q6 PRN 08/28/20 03/10/22 aerosol inhaler (Ventolin HFA) aspirin 81 mg tablet,delayed 81 mg PO QAM 08/28/20 03/10/22 release (Aspirin Low Dose) atorvastatin 40 mg tablet (Lipitor) 40 mg PO QAM 08/28/20 03/10/22 budesonide 0.5 mg/2 mL suspension 0.5 mg INHALATION BID 08/28/20 03/10/22 for nebulization (Pulmicort) carvedilol 12.5 mg tablet (Coreg) 12.5 mg PO BID 08/28/20 03/10/22 empagliflozin 10 mg tablet 10 mg PO QAM 08/28/20 03/10/22 (Jardiance) metformin 1,000 mg tablet 1,000 mg PO BID 08/28/20 03/10/22 ipratropium 0.5 mg-albuterol 3 mg 3 ml INHALATION QID PRN 09/25/20 03/10/22 (2.5 mg base)/3 mL nebulization soln oxycodone 5 mg tablet (Roxicodone) 5 mg PO TID PRN 05/13/21 03/10/22 ferrous sulfate 325 mg (65 mg 325 mg PO BID 09/02/21 03/10/22 iron) tablet (Iron (ferrous sulfate)) tiotropium 2.5 mcg-olodaterol 2.5 2 spray INHALATION QAM 09/02/21 03/10/22 mcg/actuation mist for inhalation (Stiolto Respimat) diltiazem HCl 120 mg 120 mg PO DAILY 01/12/22 03/10/22 capsule,extended release 24 hr Previous Rx's Medication Instructions Recorded blood sugar diagnostic (OneTouch #50 ea 06/02/21 Verio test strips) blood-glucose meter (OneTouch #1 ea 06/02/21 Verio Meter) lancets 33 gauge (OneTouch Delica #100 ea 06/02/21 Lancets) doxycycline hyclate 100 mg capsule 100 mg PO BID #7 cap 01/16/22 Results & Data (ED) Vital Signs Vital Signs - 24 hr 03/10/22 17:45 03/10/22 18:09 03/10/22 18:10 Temperature 36.6 C Temperature Source Oral Pulse Rate 85 87 85 Pulse Rate [Apical] Pulse Rate from SpO2 Sensor 87 85 Pulse Rhythm Regular Pulse Strength Normal Respiratory Rate 33 H 28 H 28 H Respiratory Effort / Characteristics Spontaneous Labored Respiratory Depth Shallow Blood Pressure 177/120 H Blood Pressure [Right Arm] Blood Pressure Mean 139 Blood Pressure Mean [Right Arm] Blood Pressure Position Semi-fowlers Pulse Oximetry 95 95 94 Oxygen Delivery Method Nasal Cannula Nasal Cannula Oxygen Flow Rate 4 4 Sepsis Recent Fever Within 48 Hours No Sepsis New/Unexplained Change in Mental Status No Sepsis Action Taken by Nursing No Action Required 03/10/22 18:20 03/10/22 18:30 03/10/22 18:33 Temperature Temperature Source Pulse Rate 84 86 Pulse Rate [Apical] 82 Pulse Rate from SpO2 Sensor 84 83 Pulse Rhythm Pulse Strength Respiratory Rate 24 26 H 18 Respiratory Effort / Characteristics Spontaneous Respiratory Depth Blood Pressure Blood Pressure [Right Arm] Blood Pressure Mean Blood Pressure Mean [Right Arm] Blood Pressure Position Pulse Oximetry 95 95 96 Oxygen Delivery Method Nasal Cannula Oxygen Flow Rate 4 Sepsis Recent Fever Within 48 Hours Sepsis New/Unexplained Change in Mental Status Sepsis Action Taken by Nursing 03/10/22 18:40 03/10/22 19:15 03/10/22 19:16 Temperature Temperature Source Pulse Rate 88 90 Pulse Rate [Apical] 91 H Pulse Rate from SpO2 Sensor 88 83 Pulse Rhythm Pulse Strength Respiratory Rate 21 32 H 24 Respiratory Effort / Characteristics Respiratory Depth Blood Pressure 160/94 H Blood Pressure [Right Arm] 160/94 H Blood Pressure Mean 116 Blood Pressure Mean [Right Arm] 116 Blood Pressure Position Pulse Oximetry 99 94 98 Oxygen Delivery Method Nebulizer Nasal Cannula Nasal Cannula Oxygen Flow Rate 3 3 Sepsis Recent Fever Within 48 Hours Sepsis New/Unexplained Change in Mental Status Sepsis Action Taken by Nursing 03/10/22 19:30 03/10/22 20:00 Temperature Temperature Source Pulse Rate 90 92 H Pulse Rate [Apical] Pulse Rate from SpO2 Sensor 92 H 94 H Pulse Rhythm Pulse Strength Respiratory Rate 31 H 24 Respiratory Effort / Characteristics Respiratory Depth Blood Pressure 185/80 H 167/88 H Blood Pressure [Right Arm] Blood Pressure Mean 115 114 Blood Pressure Mean [Right Arm] Blood Pressure Position Pulse Oximetry 93 93 Oxygen Delivery Method Nasal Cannula Oxygen Flow Rate 3 Sepsis Recent Fever Within 48 Hours Sepsis New/Unexplained Change in Mental Status Sepsis Action Taken by Nursing Laboratory Data Attestation: I reviewed the patient's lab results. Result diagrams: 03/10/22 18:11 03/10/22 18:11 Lab Results 04/17/22 04/17/22 04/17/22 Range/Units 18:11 18:11 18:11 WBC 7.02 (4.8-10.8) K/uL RBC 4.13 L (4.2-5.4) M/uL Hgb 10.6 L (12.0-16.0) g/dL Hct 36.2 L (37-47) % MCV 87.7 (80-100) fL MCH 25.7 (25-34) pg MCHC 29.3 L (32-36) g/dL RDW Std Deviation 59.4 H (36.4-46.3) fL RDW Coeff of Dorcas 18.8 H (11.5-14.5) % Plt Count 459 H (130-400) K/uL MPV 9.8 (7.4-10.4) fL Immature Gran % (Auto) 0.3 % Neut % (Auto) 65.5 % Lymph % (Auto) 21.1 % [place] % (Auto) 10.5 % Eos % (Auto) 2.3 % Baso % (Auto) 0.3 % Neut # (Auto) 4.60 (1.4-6.5) K/uL Lymph # (Auto) 1.48 (1.2-3.4) K/uL [place] # (Auto) 0.74 H (0.11-0.59) K/uL Eos # (Auto) 0.16 (0-0.5) K/uL Baso # (Auto) 0.02 (0-0.2) K/uL Immature Gran # (Auto) 0.02 (0.00-0.02) K/uL VBG pH (7.36-7.41) VBG pCO2 (38-50) mmHg VBG pO2 mmHg VBG HCO3 mmol/L VBG O2 Saturation % VBG Base Excess mEq/L Barometric Pressure mm/Hg Sodium 144 (136-145) mmol/L Potassium 3.5 (3.5-5.1) mmol/L Chloride 94 L (98-107) mmol/L Carbon Dioxide 45 H* (21-32) mmol/L Anion Gap 5 (3-11) BUN 12 (6-23) mg/dl Creatinine 0.98 (0.6-1.2) mg/dl Est Cr Clr Drug Dosing 44.2 ml/min Est GFR ( Amer) 67.7 ml/min Est GFR (Non-Af Amer) 58.4 ml/min BUN/Creatinine Ratio 12.2 (10-20) Glucose 141 H (70-99(Fasting)) mg/dl Lactate (0.4-2.0) mmol/L Calcium 8.7 (8.5-10.1) mg/dl Phosphorus 3.7 (2.5-4.9) mg/dl Magnesium 1.5 L (1.7-2.4) mg/dl Total Bilirubin 0.2 (0.2-1.0) mg/dl AST 12 L (13-39) U/L ALT 8 (7-52) U/L Alkaline Phosphatase 85 (34-104) U/L Troponin I High Sens Cancelled 5.4 Total Protein 6.5 (6.0-8.3) gm/dl Albumin 3.9 (3.4-5.0) gm/dl Globulin 2.6 (2.5-4.0) gm/dl Albumin/Globulin Ratio 1.5 (0.9-2) Lipase 28 (11-82) U/L Procalcitonin (0-0.5) ng/ml Urine Color Urine Appearance (Clear) Urine pH (4.5-7.5) Ur Specific [place] (1.000-1.030) Urine Protein (Negative) Urine Glucose (UA) (Negative) Urine Ketones (Negative) Urine Blood (Negative) Urine Nitrite (Negative) Urine Bilirubin (Negative) Urine Urobilinogen (Negative) Ur Leukocyte Esterase (Negative) Urine WBC (Auto) (0-5) /hpf Urine RBC (Auto) (0-4) /hpf U Hyaline Cast (Auto) (0-5) /lpf U Epithel Cells (Auto) (0-5) /lpf Urine Bacteria (Auto) (Negative) SARS-CoV-2 (PCR) (Negative) Influenza Type A (PCR) (Neg) Influenza Type B (PCR) (Neg) RSV (RT-PCR) (Neg) 03/10/22 03/10/22 03/10/22 Range/Units 18:11 18:22 19:40 WBC (4.8-10.8) K/uL RBC (4.2-5.4) M/uL Hgb (12.0-16.0) g/dL Hct (37-47) % MCV (80-100) fL MCH (25-34) pg MCHC (32-36) g/dL RDW Std Deviation (36.4-46.3) fL RDW Coeff of Dorcas (11.5-14.5) % Plt Count (130-400) K/uL MPV (7.4-10.4) fL Immature Gran % (Auto) % Neut % (Auto) % Lymph % (Auto) % [place] % (Auto) % Eos % (Auto) % Baso % (Auto) % Neut # (Auto) (1.4-6.5) K/uL Lymph # (Auto) (1.2-3.4) K/uL [place] # (Auto) (0.11-0.59) K/uL Eos # (Auto) (0-0.5) K/uL Baso # (Auto) (0-0.2) K/uL Immature Gran # (Auto) (0.00-0.02) K/uL VBG pH (7.36-7.41) VBG pCO2 (38-50) mmHg VBG pO2 mmHg VBG HCO3 mmol/L VBG O2 Saturation % VBG Base Excess mEq/L Barometric Pressure mm/Hg Sodium (136-145) mmol/L Potassium (3.5-5.1) mmol/L Chloride (98-107) mmol/L Carbon Dioxide (21-32) mmol/L Anion Gap (3-11) BUN (6-23) mg/dl Creatinine (0.6-1.2) mg/dl Est Cr Clr Drug Dosing ml/min Est GFR ( Amer) ml/min Est GFR (Non-Af Amer) ml/min BUN/Creatinine Ratio (10-20) Glucose (70-99(Fasting)) mg/dl Lactate 0.6 (0.4-2.0) mmol/L Calcium (8.5-10.1) mg/dl Phosphorus (2.5-4.9) mg/dl Magnesium (1.7-2.4) mg/dl Total Bilirubin (0.2-1.0) mg/dl AST (13-39) U/L ALT (7-52) U/L Alkaline Phosphatase (34-104) U/L Troponin I High Sens Total Protein (6.0-8.3) gm/dl Albumin (3.4-5.0) gm/dl Globulin (2.5-4.0) gm/dl Albumin/Globulin Ratio (0.9-2) Lipase (11-82) U/L Procalcitonin 17.61 H (0-0.5) ng/ml Urine Color Urine Appearance (Clear) Urine pH (4.5-7.5) Ur Specific [place] (1.000-1.030) Urine Protein (Negative) Urine Glucose (UA) (Negative) Urine Ketones (Negative) Urine Blood (Negative) Urine Nitrite (Negative) Urine Bilirubin (Negative) Urine Urobilinogen (Negative) Ur Leukocyte Esterase (Negative) Urine WBC (Auto) (0-5) /hpf Urine RBC (Auto) (0-4) /hpf U Hyaline Cast (Auto) (0-5) /lpf U Epithel Cells (Auto) (0-5) /lpf Urine Bacteria (Auto) (Negative) SARS-CoV-2 (PCR) NEGATIVE (Negative) Influenza Type A (PCR) Negative (Neg) Influenza Type B (PCR) Negative (Neg) RSV (RT-PCR) Negative (Neg) 03/10/22 03/10/22 Range/Units 19:40 20:12 WBC (4.8-10.8) K/uL RBC (4.2-5.4) M/uL Hgb (12.0-16.0) g/dL Hct (37-47) % MCV (80-100) fL MCH (25-34) pg MCHC (32-36) g/dL RDW Std Deviation (36.4-46.3) fL RDW Coeff of Dorcas (11.5-14.5) % Plt Count (130-400) K/uL MPV (7.4-10.4) fL Immature Gran % (Auto) % Neut % (Auto) % Lymph % (Auto) % [place] % (Auto) % Eos % (Auto) % Baso % (Auto) % Neut # (Auto) (1.4-6.5) K/uL Lymph # (Auto) (1.2-3.4) K/uL [place] # (Auto) (0.11-0.59) K/uL Eos # (Auto) (0-0.5) K/uL Baso # (Auto) (0-0.2) K/uL Immature Gran # (Auto) (0.00-0.02) K/uL VBG pH 7.36 (7.36-7.41) VBG pCO2 76 H (38-50) mmHg VBG pO2 37 mmHg VBG HCO3 42 mmol/L VBG O2 Saturation 61.8 % VBG Base Excess 13.9 mEq/L Barometric Pressure 737.9 mm/Hg Sodium (136-145) mmol/L Potassium (3.5-5.1) mmol/L Chloride (98-107) mmol/L Carbon Dioxide (21-32) mmol/L Anion Gap (3-11) BUN (6-23) mg/dl Creatinine (0.6-1.2) mg/dl Est Cr Clr Drug Dosing ml/min Est GFR ( Amer) ml/min Est GFR (Non-Af Amer) ml/min BUN/Creatinine Ratio (10-20) Glucose (70-99(Fasting)) mg/dl Lactate (0.4-2.0) mmol/L Calcium (8.5-10.1) mg/dl Phosphorus (2.5-4.9) mg/dl Magnesium (1.7-2.4) mg/dl Total Bilirubin (0.2-1.0) mg/dl AST (13-39) U/L ALT (7-52) U/L Alkaline Phosphatase (34-104) U/L Troponin I High Sens Total Protein (6.0-8.3) gm/dl Albumin (3.4-5.0) gm/dl Globulin (2.5-4.0) gm/dl Albumin/Globulin Ratio (0.9-2) Lipase (11-82) U/L Procalcitonin (0-0.5) ng/ml Urine Color Yellow Urine Appearance Clear (Clear) Urine pH >= 9.0 H (4.5-7.5) Ur Specific [place] 1.016 (1.000-1.030) Urine Protein 1+ H (Negative) Urine Glucose (UA) 2+ H (Negative) Urine Ketones Trace H (Negative) Urine Blood Negative (Negative) Urine Nitrite Negative (Negative) Urine Bilirubin Negative (Negative) Urine Urobilinogen Negative (Negative) Ur Leukocyte Esterase Negative (Negative) Urine WBC (Auto) 1-5 (0-5) /hpf Urine RBC (Auto) 0-4 (0-4) /hpf U Hyaline Cast (Auto) 0 (0-5) /lpf U Epithel Cells (Auto) 5-10 H (0-5) /lpf Urine Bacteria (Auto) Negative (Negative) SARS-CoV-2 (PCR) (Negative) Influenza Type A (PCR) (Neg) Influenza Type B (PCR) (Neg) RSV (RT-PCR) (Neg) Administered Medications Albuterol (Albut/Ipratrop 3mg/0.5mg Neb 3 Ml Vial) 3 ml INH QIDR KALEY; Protocol Stop: 04/09/22 21:49 Last Admin: 03/10/22 22:38 Dose: 3 ml Documented by: [id number] Budesonide (Budesonide 0.5 Mg/2 Ml Vial (Pulmicort)) 0.5 mg INH BIDR [facility] Stop: 04/09/22 21:49 Last Admin: 03/10/22 22:38 Dose: 0.5 mg Documented by: [id number] Carvedilol (Carvedilol 12.5 Mg Tab) 12.5 mg PO BID [facility] Stop: 04/09/22 21:49 Last Admin: 03/10/22 23:11 Dose: 12.5 mg Documented by: [id number] Enoxaparin Sodium (Enoxaparin Inj 40 Mg/0.4 Ml Syr) 40 mg SQ HS [facility] Stop: 04/09/22 21:49 Last Admin: 03/10/22 23:22 Dose: 40 mg Documented by: [id number] Ferrous Sulfate (Ferrous Sulfate 325 Mg Tab) 325 mg PO BID [facility] Stop: 04/09/22 21:49 Last Admin: 03/10/22 23:11 Dose: 325 mg Documented by: [id number] Guaifenesin (Guaifenesin 600 Mg Tabcr) 1,200 mg PO BID [facility] Stop: 04/09/22 21:49 Last Admin: 03/10/22 23:10 Dose: 1,200 mg Documented by: [id number] Lactated Ringer's (Lr) 1,000 mls @ 80 mls/hr IV .[id number] [facility] Stop: 04/09/22 21:44 Last Infusion: 03/11/22 01:07 Dose: 80 mls/hr Documented by: [id number] Infusion: 03/11/22 00:48 Dose: 0 mls/hr Documented by: [id number] Admin: 03/10/22 22:12 Dose: 80 mls/hr Documented by: [id number] Methylprednisolone 40 mg/ (Syringe) 0.64 mls @ 1.5 mls/min IV Q8H [facility]ALEY Stop: 04/10/22 01:59 Last Admin: 03/11/22 01:52 Dose: 1.5 mls/min Documented by: [id number] Insulin Aspart (Insulin Aspart Per Unit) 0 units SC ACHS [facility]ALEY Stop: 04/09/22 22:44 Last Admin: 03/10/22 23:12 Dose: 4 units Documented by: [id number] Cosigned by: [id number] Oxycodone HCl (Oxycodone Hcl Ir 5 Mg Tab (Immediate Release)) 5 mg PO TID PRN PRN Reason: Pain Stop: 03/24/22 21:49 Last Admin: 03/10/22 23:10 Dose: 5 mg Documented by: [id number] Discontinued Medications Albuterol (Albut/Ipratrop 3mg/0.5mg Neb 3 Ml Vial) 12 ml NEB ONE ONE; Protocol Stop: 03/10/22 18:11 Last Admin: 03/10/22 18:32 Dose: 12 ml Documented by: [id number] Guaifenesin (Guaifenesin 600 Mg Tabcr) 600 mg PO NOW STA Stop: 03/10/22 18:11 Last Admin: 03/10/22 18:27 Dose: 600 mg Documented by: [id number] Sodium Chloride (Nss 1000ml) 1,000 mls @ 999 mls/hr IV .[id number] ONE Stop: 03/10/22 19:10 Last Infusion: 03/10/22 19:29 Dose: 0 mls/hr Documented by: [id number] Admin: 03/10/22 18:28 Dose: 999 mls/hr Documented by: [id number] Magnesium Sulfate/Dextrose (Magnesium Sulfate / D5w) 1 gm in 100 mls @ 100 mls/hr IV Q1H [facility] Stop: 03/10/22 21:15 Last Infusion: 03/10/22 23:18 Dose: 0 mls/hr Documented by: [id number] Admin: 03/10/22 20:56 Dose: 100 mls/hr Documented by: [id number] Infusion: 03/10/22 20:55 Dose: 0 mls/hr Documented by: [id number] Admin: 03/10/22 19:23 Dose: 100 mls/hr Documented by: [id number] Azithromycin 500 mg/ Dextrose 255 mls @ 127.5 mls/hr IV NOW STA Stop: 03/10/22 22:09 Last Infusion: 03/10/22 23:33 Dose: 0 mls/hr Documented by: [id number] Admin: 03/10/22 20:55 Dose: 127.5 mls/hr Documented by: [id number] Ioversol (Optiray 320 100ml) 100 ml IV ONCE ONE Stop: 03/11/22 01:07 Last Admin: 03/11/22 01:06 Dose: 93 ml Documented by: [id number] Methylprednisolone (Methylprednisolone 125 Mg/2 Ml Vial) 125 mg IV NOW STA Stop: 03/10/22 18:11 Last Admin: 03/10/22 18:27 Dose: 125 mg Documented by: [id number] Oxycodone HCl (Oxycodone Hcl Ir 5 Mg Tab (Immediate Release)) 5 mg PO NOW STA Stop: 03/10/22 18:13 Last Admin: 03/10/22 18:27 Dose: 5 mg Documented by: [id number] Imaging Data Radiologist's Impression: Chest X-Ray 03/10/22 18:10 XR chest 1V portable HISTORY: 72 years-old Female Chest Pain . Acute atypical chest pain COMPARISON: Chest radiograph 01/12/2022 TECHNIQUE: AP view of the chest FINDINGS: Cardiomediastinal and hilar silhouettes are within normal limits. Atherosclerosis of the aorta. Emphysema with chronic interstitial coarsening. No pneumothorax, pleural effusion, airspace consolidation or overt pulmonary edema. A round structure projects over the midline upper chest, likely external to the patient. Degenerative changes of the shoulders and spine. IMPRESSION: Emphysema without acute process. ACT 112: Negative or not required by law. The above report was generated using voice recognition software. It may contain grammatical, syntax or spelling errors. Electronically signed by: Israel Sharma M.D. 03/10/2022 6:47 PM Discharge Plan Visit Data Chief Complaint: Shortness of Breath/Dyspnea Stated Complaint: SOB Discharge Problem: Acute on chronic respiratory failure with hypoxia and hypercapnia, COPD exacerbation, Hypomagnesemia Patient Disposition: Admitted As Inpatient Discharge Instructions Interventions: ED Discharge Assessment Last Done: 03/10/22 21:38
--- NOTE | 2022-03-10 18:49 | XRay Report ---
XR chest 1V portable HISTORY: 72 years-old Female Chest Pain . Acute atypical chest pain COMPARISON: Chest radiograph 01/12/2022 TECHNIQUE: AP view of the chest FINDINGS: Cardiomediastinal and hilar silhouettes are within normal limits. Atherosclerosis of the aorta. Emphy sema with chronic interstitial coarsening. No pneumothorax, pleural effusion, airspace consolidation or overt pulmonary edema. A round structure projects over the midline upper chest, likely external to the patient. Degenerative changes of the shoulders and spine. IMPRESSION: Emphysema without acute process. ACT 112: Negative or not required by law. The above report was generated using voice recognition software. It may contain grammatical, syntax o r spelling errors. Electronically signed by: Israel Sharma M.D. 03/10/2022 6:47 PM
[2022-03-10 18:51] LABS: Albumin Globulin Ratio 1.5 (0.9-2); Albumin Level 3.9 gm/dl (3.4-5.0); BUN Creatinine Ratio 12.2 (10-20); Bilirubin,Total 0.2 mg/dl (0.2-1.0); Calcium 8.7 mg/dl (8.5-10.1); Creatinine Clr Calc Pharmacy 44.2 ml/min; Est GFR (African American) 67.7 ml/min; Est GFR (Non-African American) 58.4 ml/min; Globulin 2.6 gm/dl (2.5-4.0); Magnesium 1.5 mg/dl (1.7-2.4); Phosphorus 3.7 mg/dl (2.5-4.9); Potassium 3.5 mmol/L (3.5-5.1); Total Protein 6.5 gm/dl (6.0-8.3); Troponin I High Sensitivity 5.4 pg/ml (0-14)
[2022-03-10 19:09] LABS: Influenza A virus by PCR Negative (Neg); Influenza B virus by PCR Negative (Neg); RSV by PCR Negative (Neg); SARS CoV2 RNA(COVID-19) InHosp NEGATIVE (Negative)
[2022-03-10] MEDS: MAGNESIUM SULFATE / D5W 1 GM/100 ML BAG IV SCH ×2 (19:23→20:56)
[2022-03-10 19:55] LABS: Base Excess VBG 13.9 mEq/L; Oxygen Saturation VBG 61.8 %; pH VBG 7.36 (7.36-7.41)
[2022-03-10] MEDS ORDERED: AZITHROMYCIN 500 MG in DEXTROSE 5% 250 ML IV STA (20:10)
--- NOTE | 2022-03-10 20:22 | History & Physical Report ---
Date of Service March 10, 2022 Assessment & Plan (1) Acute and chronic respiratory failure: Plan: -SpO2 93% on 3L (this is baseline O2 requirement), vBG CO2 76, no leukocytosis. COVID/flu/RSV negative. Some wheezes with prolonged expiratory phase. -CXR: emphysema without sign of other acute process -Received albuterol, IV azithromycin, mucinex, magnesium, and Solu-Medrol in ED. -Continue home inhalers, scheduled duonebs, 3L NC with SpO2 goal 88-92% -Azithromycin 250 mg PO starting tomorrow. -Mucinex 1200 BID. -SoluMedrol 40 mg Q8H -Nicotine patch ordered. -Procalcitonin and blood cultures ordered. (2) Hypomagnesemia: Plan: -1.5 in ED, replete and recheck in AM. (3) Abdominal pain: Plan: -Diffusely tender, LFT's wnl, amylase and lipase wnl, patient afebrile, no leukocytosis or associated n/v, diarrhea, constipation, melena or hematochezia. Reports she has chronic abdominal pain for years but is worse for the past se veral days. -CT A/P to look for possible cause. -IV zofran, miralax PRN. (4) Chronic kidney disease: Plan: -BUN and Cr at baseline. -Received 1L IVF in ED ,will order LRs at 80 cc/hr as pt appears dry. -Trend daily BMP. -Renally dose medications, avoid nephrotoxic agents. (5) Anemia: Plan: -H/H stable, at baseline, No acute issues. (6) Diabetes type 2, uncontrolled: Plan: -Patient's home regimen of Januvia, held on admission. -Continue BSG checks achs, sliding-scale insulin, hypoglycemic protocol. (7) HTN (hypertension): Plan: -Slightly hypertensive at this time. -Continue home carvedilol, diltiazem. (8) Hyperlipidemia: Plan: -Continue atorvastatin. (9) Chronic low back pain: Plan: -Chronic, stable. EMS gave 50 mcg fentanyl en route as she complained of back pain initially. -Continue oxycodone 5mg TID prn, pt taking this at home. Plan: -Admit to med/tele. -SCDs, lovenox for DVT ppx. -Full Code. History of Present Illness Chief Complaint: SOB, cough Primary Care Provider: BRET Espinoza Mrs. Gandara is a 71 year old female with PMHx of COPD, DMII, HTN, HLD, CKD, AAA, chronic back pain who presents this evening with increased shortness of breath and productive cough for several days. Patient has COPD, baseline cough is productive of some phlegm, she notes this has increased over the past several days along with worsening shortness of breath. She is on 3 L nasal cannula at all times in addition to her prescribed inhalers, over the past few days she has increased her oxygen requirement to 4 L. She also reports chills at home, but no report no fevers. She states today she has had abdominal pain for years now, however the past couple days has become worse. It is diffuse, all over but without nausea, vomiting, diarrhea, constipation, hematochezia, melena. Without weakness, myalgias, night sweats, chest pain, palpitations. Patient smokes half pack per day. In ED, she is hypertensive, SpO2 93% on 3L NC which is her baseline O2 requirement. CXR shows emphysema without acute process. Afebrile, no leukocytosis, labs significant for bicarb 45, vBG pH 7.39, CO2 76, glucose 142, Mg++ 1.5. Flu/COVID/RSV negative. Received albuterol, IV azithromycin, mucinex, magnesium, and Solu-Medrol in ED with improvement. DuoNeb and Fentanyl 50 mcg via EMS en route as she complained of back pain. Allergies Allergy/AdvReac Type Severity Reaction Status Date / Time diflunisal Allergy Unknown HEART RACES Verified 03/10/22 20:50 Home Medications Medication Instructions Recorded Confirmed Type albuterol sulfate 90 mcg/actuation 2 puff INHALATION Q6 PRN 08/28/20 03/10/22 History aerosol inhaler (Ventolin HFA) aspirin 81 mg tablet,delayed 81 mg PO QAM 08/28/20 03/10/22 History release (Aspirin Low Dose) atorvastatin 40 mg tablet (Lipitor) 40 mg PO QAM 08/28/20 03/10/22 History budesonide 0.5 mg/2 mL suspension 0.5 mg INHALATION BID 08/28/20 03/10/22 History for nebulization (Pulmicort) carvedilol 12.5 mg tablet (Coreg) 12.5 mg PO BID 08/28/20 03/10/22 History empagliflozin 10 mg tablet 10 mg PO QAM 08/28/20 03/10/22 History (Jardiance) metformin 1,000 mg tablet 1,000 mg PO BID 08/28/20 03/10/22 History ipratropium 0.5 mg-albuterol 3 mg 3 ml INHALATION QID PRN 09/25/20 03/10/22 History (2.5 mg base)/3 mL nebulization soln oxycodone 5 mg tablet (Roxicodone) 5 mg PO TID PRN 05/13/21 03/10/22 History blood sugar diagnostic (Rip van WafelsTouch #50 ea 06/02/21 Rx Verio test strips) blood-glucose meter (Rip van WafelsTouch #1 ea 06/02/21 Rx Verio Meter) lancets 33 gauge (OneTouch Delica #100 ea 06/02/21 Rx Lancets) ferrous sulfate 325 mg (65 mg 325 mg PO BID 09/02/21 03/10/22 History iron) tablet (Iron (ferrous sulfate)) tiotropium 2.5 mcg-olodaterol 2.5 2 spray INHALATION QAM 09/02/21 03/10/22 History mcg/actuation mist for inhalation (Stiolto Respimat) diltiazem HCl 120 mg 120 mg PO DAILY 01/12/22 03/10/22 History capsule,extended release 24 hr doxycycline hyclate 100 mg capsule 100 mg PO BID #7 cap 01/16/22 03/10/22 Rx Past Med/Surg History Medical History AAA (abdominal aortic aneurysm) Acute hypotension Acute UTI Chronic low back pain COPD exacerbation Diabetes type 2, uncontrolled Diaphragmatic hernia (10/31/11) History of knee replacement Left peroneal nerve palsy Respiratory failure Syncope Surgical History H/O Achilles tendon repair (~2007) H/O: hysterectomy History of appendectomy History of bilateral oophorectomies History of lithotripsy (~2007) Hx of cholecystectomy Family History Other Family history non-contributory Social History Smoking Status: Current every day smoker Tobacco Type: Cigarettes Cigarettes Per Day: half pack; Second Hand Exposure: No; Hx Alcohol Use: No Hx Substance Use: No Preferred Language: Icelandic Communication Ability: Effective Research And Development Technician Required: No Beliefs That Will Affect Care: None marital status: Current Living Situation: Spouse How many Children do You have: 3 Other Information That Helps Us Care for You: No Feels Safe at Home: Yes Safety Concerns: Feels Safe At This Time Assistive Devices: Cane, Denture - Upper, Denture - Lower, Oxygen - Continuous, Walker and Wheelchair Review of Systems Review of Systems: Constitutional: chills for several days; no weakness, fatigue, myalgias, anorexia, night sweats Eyes: No diplopia, no worsening or blurred vision ENT: normal hearing, no trouble swallowing Respiratory: increase in her baseline productive cough, increased sputum production sputum, increased dyspnea at rest and with exertion Cardiovascular: No chest pain, tightness or palpitations Abdomen: worsening abdominal pain over several days; No pain, nausea, vomiting, diarrhea or constipation : Denies dysuria, hematuria, increased urgency/frequency, urinary retention Musculoskeletal: No joint pain, calf pain, swelling Neurologic: No weakness, numbness/tingling, or balance problems Psychiatric: No anxiety or depression Skin: No rash or itch Physical Exam Physical Exam: General: awake, alert, no apparent distress, appears chronically ill Head: Normocephalic, atraumatic ENT: PERRL, EOMI, no pharyngeal exudate, mucous membranes moist Chest: Clear to auscultation, on room air, no adventitious breath sounds Cardiac: Regular rate and rhythm, no murmur, no JVD, normal peripheral pulses, good capillary refill Abdominal: NABS x 4 quadrants, soft, nontender to palpation, no rebound, guardi ng or tenderness Extremities: Normal inspection, no peripheral edema or erythema, calfs nontender to palpation Psych: Normal mood and affect Neuro: AAO x 3, strength intact bilaterally and rated 5/5, no motor deficits, speech is clear, no peripheral sensory deficits Skin: no rash or erythema Results & Data Results & Data ([facility]) Vital Signs (Past 12 Hours) Vital Signs Temp Pulse Pulse Resp BP BP Pulse Ox 03/10/22 19:30 90 31 H 185/80 H 93 03/10/22 19:16 91 H 24 160/94 H 98 03/10/22 19:15 90 32 H 160/94 H 94 03/10/22 18:40 88 21 99 03/10/22 18:33 82 18 96 03/10/22 18:30 86 26 H 95 03/10/22 18:20 84 24 95 03/10/22 18:10 85 28 H 94 03/10/22 18:09 87 28 H 95 03/10/22 17:45 36.6 C 85 33 H 177/120 H 95 Laboratory Results Abnormal lab results 03/10/22 03/10/22 03/10/22 Range/Units 18:11 18:11 19:40 RBC 4.13 L (4.2-5.4) M/uL Hgb 10.6 L (12.0-16.0) g/dL Hct 36.2 L (37-47) % MCHC 29.3 L (32-36) g/dL RDW Std Deviation 59.4 H (36.4-46.3) fL RDW Coeff of Dorcas 18.8 H (11.5-14.5) % Plt Count 459 H (130-400) K/uL Power # (Auto) 0.74 H (0.11-0.59) K/uL VBG pCO2 76 H (38-50) mmHg Chloride 94 L (98-107) mmol/L Carbon Dioxide 45 H* (21-32) mmol/L Glucose 141 H (70-99(Fasting)) mg/dl Magnesium 1.5 L (1.7-2.4) mg/dl AST 12 L (13-39) U/L Urine pH (4.5-7.5) Urine Protein (Negative) Urine Glucose (UA) (Negative) Urine Ketones (Negative) U Epithel Cells (Auto) (0-5) /lpf 03/10/22 Range/Units 20:12 RBC (4.2-5.4) M/uL Hgb (12.0-16.0) g/dL Hct (37-47) % MCHC (32-36) g/dL RDW Std Deviation (36.4-46.3) fL RDW Coeff of Dorcas (11.5-14.5) % Plt Count (130-400) K/uL Power # (Auto) (0.11-0.59) K/uL VBG pCO2 (38-50) mmHg Chloride (98-107) mmol/L Carbon Dioxide (21-32) mmol/L Glucose (70-99(Fasting)) mg/dl Magnesium (1.7-2.4) mg/dl AST (13-39) U/L Urine pH >= 9.0 H (4.5-7.5) Urine Protein 1+ H (Negative) Urine Glucose (UA) 2+ H (Negative) Urine Ketones Trace H (Negative) U Epithel Cells (Auto) 5-10 H (0-5) /lpf Diagnostic Findings Chest X-Ray 03/10/22 18:10 XR chest 1V portable HISTORY: 72 years-old Female Chest Pain . Acute atypical chest pain COMPARISON: Chest radiograph 01/12/2022 TECHNIQUE: AP view of the chest FINDINGS: Cardiomediastinal and hilar silhouettes are within normal limits. Atherosclerosis of the aorta. Emphysema with chronic interstitial coarsening. No pneumothorax, pleural effusion, airspace consolidation or overt pulmonary edema. A round structure projects over the midline upper chest, likely external to the patient. Degenerative changes of the shoulders and spine. IMPRESSION: Emphysema without acute process. ACT 112: Negative or not required by law. The above report was generated using voice recognition software. It may contain grammatical, syntax or spelling errors. Electronically signed by: Israel Sharma M.D. 03/10/2022 6:47 PM ECG Additional Comments: Normal sinus rhythm Normal ECG When compared with ECG of 15-JAN-2022 19:20, No significant change was found. NSR, no ST segment or T wave changes. Code Status & VTE Plan Code Status Full Code. VTE Prophylaxis Plan VTE Prophylaxis will be ordered: Yes Supervising Physician Co-Signing Physician Notes Attending addendum: I have physically seen this patient, have supervised the SARY's activities, and agree with the H&P unless as otherwise noted. Assessment and Plan: Acute on chronic respiratory failure with hypoxia/COPD exacerbation- Patient presently on 3 L nasal cannula oxygen, his baseline level, with pulse ox 93% Duonebs every 4 hours while awake and every 2 hours when necessary. Azithromycin 500 mg p.o. daily Combivent 250 mg p.o. daily starting tomorrow for 5 days Mucinex 12 mg p.o. twice daily Methylprednisolone 40 mg IV every 8 hours, received 125 mg IV from the ED Sputum gram stain and culture Hypomagnesemia- Magnesium 1.5 upon admission Received 2 g magnesium sulfate IV from the ED Recheck laboratories in a.m. Remaining orders and notations as noted PG Care Time/CCT Total # of Minutes Spent Total Time Spent with Patient: Total time spent is greater than 50% in coordination of care (as documented) at patient's floor/unit and/or counseling patient: Coding Level of Care Code 01203 Initial Inpt Care Lvl 3 Diagnoses Acute and chronic respiratory failure J96.21; J96.22 Respiratory failure complication: hypoxia and hypercapnia Chronic kidney disease N18.9 HTN (hypertension) I10 Chronic low back pain M54.5; G89.29 Diabetes type 2, uncontrolled E11.65 Glycemic state: with hyperglycemia Abdominal pain R10.9 Hypomagnesemia E83.42 Anemia D64.9 Hyperlipidemia E78.5 (1) Acute and chronic respiratory failure Respiratory failure complication: hypoxia and hypercapnia Qualified Code(s): J96.21 - Acute and chronic respiratory failure with hypoxia; J96.22 - Acute and chronic respiratory failure with hypercapnia (2) Diabetes type 2, uncontrolled Glycemic state: with hyperglycemia Qualified Code(s): E11.65 - Type 2 diabetes mellitus with hyperglycemia
[2022-03-10 20:28] LABS: Appearance Urine Clear (Clear); Bacteria Urine Automated Negative (Negative); Bilirubin Urine Negative (Negative); Blood Urine Negative (Negative); Cast Urine Automated 0 /lpf (0-5); Color Urine Yellow; Glucose Urine UA 2+ (Negative); Ketones Urine Trace (Negative); Leukocyte Esterase Urine Negative (Negative); Nitrite Urine Negative (Negative); RBC Urine Automated 0-4 /hpf (0-4); Specific Gravity Urine 1.016 (1.000-1.030); Urobilinogen Urine Negative (Negative); pH Urine >= 9.0 (4.5-7.5)
[2022-03-10 20:39] LABS: Protein Urine 1+ (Negative)
[2022-03-10] MEDS ORDERED: CARBOHYDRATES FOR HYPOGLYCEMIA PO PRN (21:50)
[2022-03-10] MEDS ORDERED: POLYETHYLENE (MIRALAX) 17 GM PACK PO PRN (21:50)
[2022-03-10] MEDS ORDERED: GLUCAGON FOR INJ 1 MG VIAL SQ PRN (21:50)
[2022-03-10] MEDS ORDERED: ONDANSETRON INJ 2 MG/ML 2 ML VIAL IV PRN (21:50)
[2022-03-10] MEDS ORDERED: ALBUTEROL HFA 8 GM INHALER INH PRN (21:50)
[2022-03-10] MEDS ORDERED: GLUCOSE 10 TABS/TUBE PO PRN (21:50)
[2022-03-10] MEDS ORDERED: GLUCOSE 40% GEL 15 GM TUBE PO PRN (21:50)
[2022-03-10] MEDS ORDERED: DEXTROSE 50% 50 ML SYRINGE IV PRN (21:50)
[2022-03-10] MEDS ORDERED: ACETAMINOPHEN 325 MG TAB PO PRN (21:50)
[2022-03-10] MEDS: LACTATED RINGER'S 1,000 ML IV SCH (22:12)
[2022-03-10] MEDS: ALBUT/IPRATROP 3MG/0.5MG NEB 3 ML VIAL INH SCH (22:38)
[2022-03-10] MEDS: BUDESONIDE 0.5 MG/2 ML VIAL (PULMICORT) INH SCH (22:38)
[2022-03-10] MEDS: oxyCODONE HCL IR 5 MG TAB (IMMEDIATE RELEASE) PO PRN (23:10)
[2022-03-10] MEDS: guaiFENesin 600 MG TABCR PO SCH (23:10)
[2022-03-10] MEDS: FERROUS SULFATE 325 MG TAB PO SCH (23:11)
[2022-03-10] MEDS: carvediloL 12.5 MG TAB PO SCH (23:11)
[2022-03-10] MEDS: INSULIN ASPART PER UNIT SC SCH (23:12)
[2022-03-10] MEDS: ENOXAPARIN INJ 40 MG/0.4 ML SYR SQ SCH (23:22)
[2022-03-11] MEDS ORDERED: OPTIRAY 320 100ml IV ONE (01:06)
[2022-03-11] MEDS: methylPREDNISolone 40 MG in SYRINGE 0 ML IV SCH ×3 (01:52→18:13)
[2022-03-11] MEDS: oxyCODONE HCL IR 5 MG TAB (IMMEDIATE RELEASE) PO PRN ×2 (06:38→15:06)
[2022-03-11] MEDS: ALBUT/IPRATROP 3MG/0.5MG NEB 3 ML VIAL INH SCH ×4 (07:09→19:28)
[2022-03-11] MEDS: BUDESONIDE 0.5 MG/2 ML VIAL (PULMICORT) INH SCH ×2 (07:09→19:27)
--- NOTE | 2022-03-11 07:11 | CT Scan Report ---
CT OF THE ABDOMEN AND PELVIS WITH CONTRAST CLINICAL HISTORY: diffuse abdominal pain COMPARISON STUDY: CT of the abdomen and pelvis January 12, 2022. TECHNIQUE: Following IV administration of 93 mL of Optiray, axial images of the abdomen and pelvis we re obtained from the lung bases to the proximal femurs. Images were reviewed in the axial, sagittal, and coronal planes. IV contrast was administered without complication. Automated exposure control wa s utilized for the study. A dose lowering technique was utilized adhering to the principles of ALARA . Oral contrast was administered. CT DOSE: 288.82 mGy.cm FINDINGS: Emphysema is noted within the lower lungs 1.5 cm left adrenal nodule is unchanged from aakash ier exams. This is benign given stability. Calcified granulomas within the spleen are present. The li zachary is unremarkable. Mild dilatation of the pancreatic duct remains unchanged. There is no peripancre atic infiltration. There is no biliary ductal dilatation status post cholecystectomy. No hydronephros is is present. Nephrograms are symmetric. A 3.9 cm infrarenal abdominal aortic aneurysm is similar to prior CT. No evidence for rupture. Extensive aortoiliac atherosclerotic plaque is present. Caliber a nd wall thickness of small and large bowel are normal. Colonic diverticulosis is noted without eviden ce for acute diverticulitis. Appendix is not visualized. There are no right lower quadrant inflammati on. There is no ascites or lymphadenopathy. A sclerotic lesion within the right femoral neck is uncha nged from earlier exams. This is benign given stability. No suspicious osseous lesions. IMPRESSION: 1. No acute process within the abdomen or pelvis. 2. No change in a 3.9 cm infrarenal abdominal aortic aneurysm since CT of January 12, 2022. 3. No bowel obstruction. No bowel wall thickening. 4. Colonic diverticulosis. No evidence for acute diverticulitis. ACT 112: Negative or not required by law. Electronically signed by: Cheng Arevalo M.D. 03/11/2022 7:08 AM
[2022-03-11 07:22] LABS: Basophils # (auto) 0.01 K/uL (0-0.2); Basophils % (auto) 0.1 %; Hematocrit (blood only) 36.9 % (37-47); Hemoglobin 10.3 g/dL (12.0-16.0); Immature Granulocytes # (auto) 0.01 K/uL (0.00-0.02); Immature Granulocytes % (auto) 0.1 %; Lymphocytes # (auto) 0.55 K/uL (1.2-3.4); Lymphocytes % (auto) 7.4 %; Mean Corpuscular Hemoglobin 24.2 pg (25-34); Mean Corpuscular Hgb Conc 27.9 g/dL (32-36); Mean Corpuscular Volume 86.8 fL (80-100); Mean Platelet Volume 10.2 fL (7.4-10.4); Monocytes # (auto) 0.05 K/uL (0.11-0.59); Monocytes % (auto) 0.7 %; Neutrophils # (auto) 6.86 K/uL (1.4-6.5); Neutrophils % (auto) 91.7 %; Platelet Count 462 K/uL (130-400); RDW Coefficient of Variation 18.6 % (11.5-14.5); RDW Standard Deviation 59.2 fL (36.4-46.3); Red Blood Count 4.25 M/uL (4.2-5.4); White Blood Count 7.48 K/uL (4.8-10.8)
[2022-03-11 07:30] LABS: BUN Creatinine Ratio 14.1 (10-20); Calcium 8.7 mg/dl (8.5-10.1); Creatinine Clr Calc Pharmacy 67.7 ml/min; Est GFR (African American) 104.8 ml/min; Est GFR (Non-African American) 90.4 ml/min
--- NOTE | 2022-03-11 07:36 | Hospitalist Progress Note ---
Date of Service March 11, 2022 Assessment & Plan (1) Acute and chronic respiratory failure: Plan: SpO2 93% on 3L (this is baseline O2 requirement), vBG CO2 76, no leukocytosis. COVID/flu/RSV negative. Some wheezes with prolonged expiratory phase. Placed on Azithromycin for COPD exacerbation Continue mucinex BID Continue solumedrol Q8H for now, switch to prednisone in AM Mag 1.5 on admission -- possibly secondary to PPI use as d/c last admission with Doxy/PPI. Repeat wnl Decrease @ 80cc/hr, discontinue this evening once appetite improved Nicotine patch ordered, but rec cessation Titrate O2 to maintain saturations Procalcitonin elevated to 17.6. CXR clear. UA without obv infection. CTAP without acute process ==> monitor blood cultures Will also check B12/folate/iron given anemia and possible procal elevated 2nd to anemia? --> B12 low 76, IM replacement while inpatient, continue PO at discharge Continue to monitor, possible discharge tomorrow (2) Hypomagnesemia: Plan: -1.5 in ED, repleted. ?2nd to PPI use during last admission --> Repeat wnl Monitor in AM for stability, PO at d/c if low again (3) Abdominal pain: Plan: Diffusely tender, LFT's wnl, amylase and lipase wnl, patient afebrile, no leukocytosis or associated n/v, diarrhea, constipation, melena or hematochezia. Reports she has chronic abdominal pain for years but is worse for the past several days. -CT A/P to look for possible cause --> NEGATIVE -IV zofran, miralax PRN. Monitor Will add pepcid IVP for GI symptoms in case of reflux as d/c on protonix last admission No want for EGD arrangement at d/c -- prior admission with issues with dysphagia. patient continues to decline (4) Chronic kidney disease: Plan: Cr at baseline IVF ordered as slightly dehydrated on exam Renal dose meds/avoid nephrotoxins BMP in AM (5) Anemia: Plan: Hgb stable 10.3 and on iron supplementation at discharge Normocytic B12/folate checked --> B12 LOW, folate wnl. Iron studies checked and acceptable CBC in AM (6) Diabetes type 2, uncontrolled: Plan: Last a1c 8.0, on januvia, held on admission BSG ac/hs, ssi while inpatient Monitor, BSGs acceptable (7) HTN (hypertension): Plan: BP stable, continues on carvedilol, diltiazem. (8) Hyperlipidemia: Plan: Continue atorvastatin. (9) Chronic low back pain: Plan: Chronic, stable. EMS gave 50 mcg fentanyl en route as she complained of back pain initially. -Continue oxycodone 5mg TID prn, pt taking this at home. No increased pain reported (10) B12 deficiency: Plan: as above, LOW ON check --> send with supplementation at discharge but continue IM while inpatient Plan: SCDs, Lovenox for DVT prophylaxis Continued inpatient stay, possible d/c in AM Admission and Anticipated Discharge Date Admission Date: March 10, 2022 Supervising Physician Co-Signing Physician Notes Attending Attestation - Chart reviewed in detail, care plan d/w [place]. I agree w/ the [place] components of her documentation. Pt here with COPD exacerbation - on steroids/abx/neb treatments/supportive care. noted is very high procalcitonin at level of 17. Blood cx's thus far negative. No obvious pneumonia seen on CXR. Low threshold to broaden her abx (currently on azithromycin) if any worsening; would include pseudomonas coverage if abx are broadened. vitals remain stable. Anibal Garza MD Subjective Patient evaluated this morning. Doing well, states about 50% of her usual self. Decreased cough and shortness of breath. No fever/chills. Ate some banana and toast this morning, looking forward to lunch. States she is breathing comfortable on her 3L but would like to monitor overnight and possible discharge tomorrow if continues to show improvement. Still smoking daily, has nicotine patch in place and recommended cessation. Denies issues with dysphagia as last admitted with issues. Denies need to have GI f/u appointment set up at discharge. No nausea/vomiting, dysuria reported at this time. Questions/concerns addressed at this time. Review of Systems Review of Systems: All systems reviewed & are unremarkable except as noted in HPI & below Physical Exam Physical Exam: General: WN, chronically ill appearing elderly female resting comfortable on her side, no acute distress HEENT: normocephalic, atraumatic, slightly dry mm, trachea midline without deviation ResP: CTAB, diminished throughout, no wheezing, no crackles, on 3L NC CV: RRR, no m/r/g, no edema, cap refill wnl GI: +BS throughout, no guarding/rigidity no pederson Psych: AOx3, cooperative, pleasant Neuro: no focal deficits Skin: cool, dry Results & Data Results & Data ([facility]) Vital Signs (Past 12 Hours) Vital Signs Temp Pulse Pulse Pulse Resp BP BP 03/11/22 07:09 81 20 03/11/22 02:57 36.6 C 82 20 164/83 H 03/10/22 23:09 36.5 C 96 H 18 180/76 H 03/10/22 22:42 86 18 03/10/22 22:20 88 03/10/22 21:50 36.6 C 93 H 20 183/68 H 03/10/22 21:30 92 H 22 162/88 H 03/10/22 21:00 94 H 22 167/88 H 03/10/22 20:30 91 H 25 H 161/81 H 03/10/22 20:00 92 H 24 167/88 H Pulse Ox Pulse Ox 03/11/22 07:09 98 03/11/22 02:57 89 L 03/10/22 23:09 90 03/10/22 22:42 97 03/10/22 22:20 03/10/22 21:50 92 92 03/10/22 21:30 03/10/22 21:00 92 03/10/22 20:30 03/10/22 20:00 93 Laboratory Results 03/11/22 03/11/22 03/11/22 Range/Units 06:19 06:19 06:19 WBC 7.48 (4.8-10.8) K/uL RBC 4.25 (4.2-5.4) M/uL Hgb 10.3 L (12.0-16.0) g/dL Hct 36.9 L (37-47) % MCV 86.8 (80-100) fL MCH 24.2 L (25-34) pg MCHC 27.9 L (32-36) g/dL RDW Std Deviation 59.2 H (36.4-46.3) fL RDW Coeff of Dorcas 18.6 H (11.5-14.5) % Plt Count 462 H (130-400) K/uL MPV 10.2 (7.4-10.4) fL Immature Gran % (Auto) 0.1 % Neut % (Auto) 91.7 % Lymph % (Auto) 7.4 % [place] % (Auto) 0.7 % Eos % (Auto) 0.0 % Baso % (Auto) 0.1 % Neut # (Auto) 6.86 H (1.4-6.5) K/uL Lymph # (Auto) 0.55 L (1.2-3.4) K/uL [place] # (Auto) 0.05 L (0.11-0.59) K/uL Eos # (Auto) 0.00 (0-0.5) K/uL Baso # (Auto) 0.01 (0-0.2) K/uL Immature Gran # (Auto) 0.01 (0.00-0.02) K/uL VBG pH (7.36-7.41) VBG pCO2 (38-50) mmHg VBG pO2 mmHg VBG HCO3 mmol/L VBG O2 Saturation % VBG Base Excess mEq/L Barometric Pressure mm/Hg Sodium 140 (136-145) mmol/L Potassium 4.0 (3.5-5.1) mmol/L Chloride 95 L (98-107) mmol/L Carbon Dioxide 38 H (21-32) mmol/L Anion Gap 7 (3-11) BUN 9 (6-23) mg/dl Creatinine 0.64 D (0.6-1.2) mg/dl Est Cr Clr Drug Dosing 67.7 ml/min Est GFR ( Amer) 104.8 ml/min Est GFR (Non-Af Amer) 90.4 ml/min BUN/Creatinine Ratio 14.1 (10-20) Glucose 167 H (70-99(Fasting)) mg/dl POC Glucose (70-99) mg/dl Lactate (0.4-2.0) mmol/L Calcium 8.7 (8.5-10.1) mg/dl Phosphorus (2.5-4.9) mg/dl Magnesium 2.0 (1.7-2.4) mg/dl Total Bilirubin (0.2-1.0) mg/dl AST (13-39) U/L ALT (7-52) U/L Alkaline Phosphatase (34-104) U/L Troponin I High Sens Total Protein (6.0-8.3) gm/dl Albumin (3.4-5.0) gm/dl Globulin (2.5-4.0) gm/dl Albumin/Globulin Ratio (0.9-2) Lipase (11-82) U/L Procalcitonin (0-0.5) ng/ml Urine Color Urine Appearance (Clear) Urine pH (4.5-7.5) Ur Specific Harrells (1.000-1.030) Urine Protein (Negative) Urine Glucose (UA) (Negative) Urine Ketones (Negative) Urine Blood (Negative) Urine Nitrite (Negative) Urine Bilirubin (Negative) Urine Urobilinogen (Negative) Ur Leukocyte Esterase (Negative) Urine WBC (Auto) (0-5) /hpf Urine RBC (Auto) (0-4) /hpf U Hyaline Cast (Auto) (0-5) /lpf U Epithel Cells (Auto) (0-5) /lpf Urine Bacteria (Auto) (Negative) SARS-CoV-2 (PCR) (Negative) Hepatitis C Ab (EIA) Pending Hep C Ab Signal/Cutoff Pending Influenza Type A (PCR) (Neg) Influenza Type B (PCR) (Neg) RSV (RT-PCR) (Neg) 03/10/22 03/10/22 03/10/22 Range/Units 22:50 21:55 20:12 WBC (4.8-10.8) K/uL RBC (4.2-5.4) M/uL Hgb (12.0-16.0) g/dL Hct (37-47) % MCV (80-100) fL MCH (25-34) pg MCHC (32-36) g/dL RDW Std Deviation (36.4-46.3) fL RDW Coeff of Dorcas (11.5-14.5) % Plt Count (130-400) K/uL MPV (7.4-10.4) fL Immature Gran % (Auto) % Neut % (Auto) % Lymph % (Auto) % [place] % (Auto) % Eos % (Auto) % Baso % (Auto) % Neut # (Auto) (1.4-6.5) K/uL Lymph # (Auto) (1.2-3.4) K/uL [place] # (Auto) (0.11-0.59) K/uL Eos # (Auto) (0-0.5) K/uL Baso # (Auto) (0-0.2) K/uL Immature Gran # (Auto) (0.00-0.02) K/uL VBG pH (7.36-7.41) VBG pCO2 (38-50) mmHg VBG pO2 mmHg VBG HCO3 mmol/L VBG O2 Saturation % VBG Base Excess mEq/L Barometric Pressure mm/Hg Sodium (136-145) mmol/L Potassium (3.5-5.1) mmol/L Chloride (98-107) mmol/L Carbon Dioxide (21-32) mmol/L Anion Gap (3-11) BUN (6-23) mg/dl Creatinine (0.6-1.2) mg/dl Est Cr Clr Drug Dosing ml/min Est GFR ( Amer) ml/min Est GFR (Non-Af Amer) ml/min BUN/Creatinine Ratio (10-20) Glucose (70-99(Fasting)) mg/dl POC Glucose 236 H (70-99) mg/dl Lactate (0.4-2.0) mmol/L Calcium (8.5-10.1) mg/dl Phosphorus (2.5-4.9) mg/dl Magnesium (1.7-2.4) mg/dl Total Bilirubin (0.2-1.0) mg/dl AST (13-39) U/L ALT (7-52) U/L Alkaline Phosphatase (34-104) U/L Troponin I High Sens 6.5 Total Protein (6.0-8.3) gm/dl Albumin (3.4-5.0) gm/dl Globulin (2.5-4.0) gm/dl Albumin/Globulin Ratio (0.9-2) Lipase (11-82) U/L Procalcitonin (0-0.5) ng/ml Urine Color Yellow Urine Appearance Clear (Clear) Urine pH >= 9.0 H (4.5-7.5) Ur Specific Harrells 1.016 (1.000-1.030) Urine Protein 1+ H (Negative) Urine Glucose (UA) 2+ H (Negative) Urine Ketones Trace H (Negative) Urine Blood Negative (Negative) Urine Nitrite Negative (Negative) Urine Bilirubin Negative (Negative) Urine Urobilinogen Negative (Negative) Ur Leukocyte Esterase Negative (Negative) Urine WBC (Auto) 1-5 (0-5) /hpf Urine RBC (Auto) 0-4 (0-4) /hpf U Hyaline Cast (Auto) 0 (0-5) /lpf U Epithel Cells (Auto) 5-10 H (0-5) /lpf Urine Bacteria (Auto) Negative (Negative) SARS-CoV-2 (PCR) (Negative) Hepatitis C Ab (EIA) Hep C Ab Signal/Cutoff Influenza Type A (PCR) (Neg) Influenza Type B (PCR) (Neg) RSV (RT-PCR) (Neg) 03/10/22 03/10/22 03/10/22 Range/Units 19:40 19:40 18:22 WBC (4.8-10.8) K/uL RBC (4.2-5.4) M/uL Hgb (12.0-16.0) g/dL Hct (37-47) % MCV (80-100) fL MCH (25-34) pg MCHC (32-36) g/dL RDW Std Deviation (36.4-46.3) fL RDW Coeff of Dorcas (11.5-14.5) % Plt Count (130-400) K/uL MPV (7.4-10.4) fL Immature Gran % (Auto) % Neut % (Auto) % Lymph % (Auto) % [place] % (Auto) % Eos % (Auto) % Baso % (Auto) % Neut # (Auto) (1.4-6.5) K/uL Lymph # (Auto) (1.2-3.4) K/uL [place] # (Auto) (0.11-0.59) K/uL Eos # (Auto) (0-0.5) K/uL Baso # (Auto) (0-0.2) K/uL Immature Gran # (Auto) (0.00-0.02) K/uL VBG pH 7.36 (7.36-7.41) VBG pCO2 76 H (38-50) mmHg VBG pO2 37 mmHg VBG HCO3 42 mmol/L VBG O2 Saturation 61.8 % VBG Base Excess 13.9 mEq/L Barometric Pressure 737.9 mm/Hg Sodium (136-145) mmol/L Potassium (3.5-5.1) mmol/L Chloride (98-107) mmol/L Carbon Dioxide (21-32) mmol/L Anion Gap (3-11) BUN (6-23) mg/dl Creatinine (0.6-1.2) mg/dl Est Cr Clr Drug Dosing ml/min Est GFR ( Amer) ml/min Est GFR (Non-Af Amer) ml/min BUN/Creatinine Ratio (10-20) Glucose (70-99(Fasting)) mg/dl POC Glucose (70-99) mg/dl Lactate 0.6 (0.4-2.0) mmol/L Calcium (8.5-10.1) mg/dl Phosphorus (2.5-4.9) mg/dl Magnesium (1.7-2.4) mg/dl Total Bilirubin (0.2-1.0) mg/dl AST (13-39) U/L ALT (7-52) U/L Alkaline Phosphatase (34-104) U/L Troponin I High Sens Total Protein (6.0-8.3) gm/dl Albumin (3.4-5.0) gm/dl Globulin (2.5-4.0) gm/dl Albumin/Globulin Ratio (0.9-2) Lipase (11-82) U/L Procalcitonin (0-0.5) ng/ml Urine Color Urine Appearance (Clear) Urine pH (4.5-7.5) Ur Specific Harrells (1.000-1.030) Urine Protein (Negative) Urine Glucose (UA) (Negative) Urine Ketones (Negative) Urine Blood (Negative) Urine Nitrite (Negative) Urine Bilirubin (Negative) Urine Urobilinogen (Negative) Ur Leukocyte Esterase (Negative) Urine WBC (Auto) (0-5) /hpf Urine RBC (Auto) (0-4) /hpf U Hyaline Cast (Auto) (0-5) /lpf U Epithel Cells (Auto) (0-5) /lpf Urine Bacteria (Auto) (Negative) SARS-CoV-2 (PCR) NEGATIVE (Negative) Hepatitis C Ab (EIA) Hep C Ab Signal/Cutoff Influenza Type A (PCR) Negative (Neg) Influenza Type B (PCR) Negative (Neg) RSV (RT-PCR) Negative (Neg) 03/10/22 03/10/22 03/10/22 Range/Units 18:11 18:11 18:11 WBC 7.02 (4.8-10.8) K/uL RBC 4.13 L (4.2-5.4) M/uL Hgb 10.6 L (12.0-16.0) g/dL Hct 36.2 L (37-47) % MCV 87.7 (80-100) fL MCH 25.7 (25-34) pg MCHC 29.3 L (32-36) g/dL RDW Std Deviation 59.4 H (36.4-46.3) fL RDW Coeff of Dorcas 18.8 H (11.5-14.5) % Plt Count 459 H (130-400) K/uL MPV 9.8 (7.4-10.4) fL Immature Gran % (Auto) 0.3 % Neut % (Auto) 65.5 % Lymph % (Auto) 21.1 % [place] % (Auto) 10.5 % Eos % (Auto) 2.3 % Baso % (Auto) 0.3 % Neut # (Auto) 4.60 (1.4-6.5) K/uL Lymph # (Auto) 1.48 (1.2-3.4) K/uL [place] # (Auto) 0.74 H (0.11-0.59) K/uL Eos # (Auto) 0.16 (0-0.5) K/uL Baso # (Auto) 0.02 (0-0.2) K/uL Immature Gran # (Auto) 0.02 (0.00-0.02) K/uL VBG pH (7.36-7.41) VBG pCO2 (38-50) mmHg VBG pO2 mmHg VBG HCO3 mmol/L VBG O2 Saturation % VBG Base Excess mEq/L Barometric Pressure mm/Hg Sodium 144 (136-145) mmol/L Potassium 3.5 (3.5-5.1) mmol/L Chloride 94 L (98-107) mmol/L Carbon Dioxide 45 H* (21-32) mmol/L Anion Gap 5 (3-11) BUN 12 (6-23) mg/dl Creatinine 0.98 (0.6-1.2) mg/dl Est Cr Clr Drug Dosing 44.2 ml/min Est GFR ( Amer) 67.7 ml/min Est GFR (Non-Af Amer) 58.4 ml/min BUN/Creatinine Ratio 12.2 (10-20) Glucose 141 H (70-99(Fasting)) mg/dl POC Glucose (70-99) mg/dl Lactate (0.4-2.0) mmol/L Calcium 8.7 (8.5-10.1) mg/dl Phosphorus 3.7 (2.5-4.9) mg/dl Magnesium 1.5 L (1.7-2.4) mg/dl Total Bilirubin 0.2 (0.2-1.0) mg/dl AST 12 L (13-39) U/L ALT 8 (7-52) U/L Alkaline Phosphatase 85 (34-104) U/L Troponin I High Sens 5.4 Total Protein 6.5 (6.0-8.3) gm/dl Albumin 3.9 (3.4-5.0) gm/dl Globulin 2.6 (2.5-4.0) gm/dl Albumin/Globulin Ratio 1.5 (0.9-2) Lipase 28 (11-82) U/L Procalcitonin 17.61 H (0-0.5) ng/ml Urine Color Urine Appearance (Clear) Urine pH (4.5-7.5) Ur Specific Harrells (1.000-1.030) Urine Protein (Negative) Urine Glucose (UA) (Negative) Urine Ketones (Negative) Urine Blood (Negative) Urine Nitrite (Negative) Urine Bilirubin (Negative) Urine Urobilinogen (Negative) Ur Leukocyte Esterase (Negative) Urine WBC (Auto) (0-5) /hpf Urine RBC (Auto) (0-4) /hpf U Hyaline Cast (Auto) (0-5) /lpf U Epithel Cells (Auto) (0-5) /lpf Urine Bacteria (Auto) (Negative) SARS-CoV-2 (PCR) (Negative) Hepatitis C Ab (EIA) Hep C Ab Signal/Cutoff Influenza Type A (PCR) (Neg) Influenza Type B (PCR) (Neg) RSV (RT-PCR) (Neg) 03/10/22 Range/Units 18:11 WBC (4.8-10.8) K/uL RBC (4.2-5.4) M/uL Hgb (12.0-16.0) g/dL Hct (37-47) % MCV (80-100) fL MCH (25-34) pg MCHC (32-36) g/dL RDW Std Deviation (36.4-46.3) fL RDW Coeff of Dorcas (11.5-14.5) % Plt Count (130-400) K/uL MPV (7.4-10.4) fL Immature Gran % (Auto) % Neut % (Auto) % Lymph % (Auto) % [place] % (Auto) % Eos % (Auto) % Baso % (Auto) % Neut # (Auto) (1.4-6.5) K/uL Lymph # (Auto) (1.2-3.4) K/uL [place] # (Auto) (0.11-0.59) K/uL Eos # (Auto) (0-0.5) K/uL Baso # (Auto) (0-0.2) K/uL Immature Gran # (Auto) (0.00-0.02) K/uL VBG pH (7.36-7.41) VBG pCO2 (38-50) mmHg VBG pO2 mmHg VBG HCO3 mmol/L VBG O2 Saturation % VBG Base Excess mEq/L Barometric Pressure mm/Hg Sodium (136-145) mmol/L Potassium (3.5-5.1) mmol/L Chloride (98-107) mmol/L Carbon Dioxide (21-32) mmol/L Anion Gap (3-11) BUN (6-23) mg/dl Creatinine (0.6-1.2) mg/dl Est Cr Clr Drug Dosing ml/min Est GFR ( Amer) ml/min Est GFR (Non-Af Amer) ml/min BUN/Creatinine Ratio (10-20) Glucose (70-99(Fasting)) mg/dl POC Glucose (70-99) mg/dl Lactate (0.4-2.0) mmol/L Calcium (8.5-10.1) mg/dl Phosphorus (2.5-4.9) mg/dl Magnesium (1.7-2.4) mg/dl Total Bilirubin (0.2-1.0) mg/dl AST (13-39) U/L ALT (7-52) U/L Alkaline Phosphatase (34-104) U/L Troponin I High Sens Cancelled Total Protein (6.0-8.3) gm/dl Albumin (3.4-5.0) gm/dl Globulin (2.5-4.0) gm/dl Albumin/Globulin Ratio (0.9-2) Lipase (11-82) U/L Procalcitonin (0-0.5) ng/ml Urine Color Urine Appearance (Clear) Urine pH (4.5-7.5) Ur Specific Harrells (1.000-1.030) Urine Protein (Negative) Urine Glucose (UA) (Negative) Urine Ketones (Negative) Urine Blood (Negative) Urine Nitrite (Negative) Urine Bilirubin (Negative) Urine Urobilinogen (Negative) Ur Leukocyte Esterase (Negative) Urine WBC (Auto) (0-5) /hpf Urine RBC (Auto) (0-4) /hpf U Hyaline Cast (Auto) (0-5) /lpf U Epithel Cells (Auto) (0-5) /lpf Urine Bacteria (Auto) (Negative) SARS-CoV-2 (PCR) (Negative) Hepatitis C Ab (EIA) Hep C Ab Signal/Cutoff Influenza Type A (PCR) (Neg) Influenza Type B (PCR) (Neg) RSV (RT-PCR) (Neg) Diagnostic Findings Chest X-Ray 03/10/22 18:10 XR chest 1V portable HISTORY: 72 years-old Female Chest Pain . Acute atypical chest pain COMPARISON: Chest radiograph 01/12/2022 TECHNIQUE: AP view of the chest FINDINGS: Cardiomediastinal and hilar silhouettes are within normal limits. Atherosclerosis of the aorta. Emphysema with chronic interstitial coarsening. No pneumothorax, pleural effusion, airspace consolidation or overt pulmonary edema. A round structure projects over the midline upper chest, likely external to the patient. Degenerative changes of the shoulders and spine. IMPRESSION: Emphysema without acute process. ACT 112: Negative or not required by law. The above report was generated using voice recognition software. It may contain grammatical, syntax or spelling errors. Electronically signed by: Israel Sharma M.D. 03/10/2022 6:47 PM Abdomen/Pelvis CT 03/10/22 21:50 CT OF THE ABDOMEN AND PELVIS WITH CONTRAST CLINICAL HISTORY: diffuse abdominal pain COMPARISON STUDY: CT of the abdomen and pelvis January 12, 2022. TECHNIQUE: Following IV administration of 93 mL of Optiray, axial images of the abdomen and pelvis were obtained from the lung bases to the proximal femurs. Images were reviewed in the axial, sagittal, and coronal planes. IV contrast was administered without complication. Automated exposure control was utilized for the study. A dose lowering technique was utilized adhering to the principles of ALARA. Oral contrast was administered. CT DOSE: 288.82 mGy.cm FINDINGS: Emphysema is noted within the lower lungs 1.5 cm left adrenal nodule is unchanged from earlier exams. This is benign given stability. Calcified granulomas within the spleen are present. The liver is unremarkable. Mild dilatation of the pancreatic duct remains unchanged. There is no peripancreatic infiltration. There is no biliary ductal dilatation status post cholecystectomy. No hydronephrosis is present. Nephrograms are symmetric. A 3.9 cm infrarenal abdominal aortic aneurysm is similar to prior CT. No evidence for rupture. Extensive aortoiliac atherosclerotic plaque is present. Caliber and wall thickness of small and large bowel are normal. Colonic diverticulosis is noted without evidence for acute diverticulitis. Appendix is not visualized. There are no right lower quadrant inflammation. There is no ascites or lymphadenopathy. A sclerotic lesion within the right femoral neck is unchanged from earlier exams. This is benign given stability. No suspicious osseous lesions. IMPRESSION: 1. No acute process within the abdomen or pelvis. 2. No change in a 3.9 cm infrarenal abdominal aortic aneurysm since CT of January 12, 2022. 3. No bowel obstruction. No bowel wall thickening. 4. Colonic diverticulosis. No evidence for acute diverticulitis. ACT 112: Negative or not required by law. Electronically signed by: Cheng Arevalo M.D. 03/11/2022 7:08 AM PG Care Time/CCT Total # of Minutes Spent Total Time Spent with Patient: Total time spent is greater than 50% in coordination of care (as documented) at patient's floor/unit and/or counseling patient: Coding Level of Care Code 38662 Subseq Hosp Care Lvl 3 Diagnoses Acute and chronic respiratory failure J96.21; J96.22 Respiratory failure complication: hypoxia and hypercapnia Hypomagnesemia E83.42 Abdominal pain R10.9 Chronic kidney disease N18.9 Anemia D64.9 Diabetes type 2, uncontrolled E11.65 Glycemic state: with hyperglycemia HTN (hypertension) I10 Hyperlipidemia E78.5 Chronic low back pain M54.5; G89.29 B12 deficiency E53.8 (1) Acute and chronic respiratory failure Respiratory failure complication: hypoxia and hypercapnia Qualified Code(s): J96.21 - Acute and chronic respiratory failure with hypoxia; J96.22 - Acute and chronic respiratory failure with hypercapnia (2) Diabetes type 2, uncontrolled Glycemic state: with hyperglycemia Qualified Code(s): E11.65 - Type 2 diabetes mellitus with hyperglycemia
[2022-03-11 08:08] LABS: Iron 73 mcg/dl (35-150); Total Iron Binding Cap Calc 398 mcg/dl (250-450); Transferrin (FE) Percent Satur 18 % (15-50); Unsaturated Iron Binding Cap 325 mcg/dl (155-355)
[2022-03-11 08:40] LABS: Folate (Folic Acid) > 22.30 ng/ml (>5.38); Vitamin B12 76 pg/ml (180-914)
[2022-03-11] MEDS: FERROUS SULFATE 325 MG TAB PO SCH ×2 (09:10→20:59)
[2022-03-11] MEDS: UMECLIDINIUM/VILANTEROL 62.5/25MCG 7 PUFFS/INHALER INH SCH (09:10)
[2022-03-11] MEDS: carvediloL 12.5 MG TAB PO SCH ×2 (09:10→20:59)
[2022-03-11] MEDS: guaiFENesin 600 MG TABCR PO SCH ×2 (09:11→20:58)
[2022-03-11] MEDS: ATORVASTATIN 40 MG TAB PO SCH (09:11)
[2022-03-11] MEDS: ASPIRIN 81 MG ECTAB PO SCH (09:11)
[2022-03-11] MEDS: dilTIAZem HCL 120 MG CAPCR PO SCH (09:11)
[2022-03-11] MEDS: NICOTINE 7 MG/24 HR TDSY TD SCH (09:12)
[2022-03-11] MEDS: AZITHROMYCIN 250 MG TAB PO SCH (09:12)
[2022-03-11] MEDS: INSULIN ASPART PER UNIT SC SCH ×4 (09:22→20:59)
[2022-03-11] MEDS: CYANOCOBALAMIN 1000 MCG/ML VIAL IM SCH (10:32)
[2022-03-11] MEDS: FAMOTIDINE 20 MG in SYRINGE 3 ML IV SCH (10:32)
[2022-03-11] MEDS: LACTATED RINGER'S 1,000 ML IV SCH (12:10)
--- NOTE | 2022-03-11 14:04 | Electrocardiogram Report ---
Test Reason : Blood Pressure : / mmHG Vent. Rate : 084 BPM Atrial Rate : 084 BPM P-R Int : 156 ms QRS Dur : 088 ms QT Int : 404 ms P-R-T Axes : 070 013 069 degrees QTc Int : 477 ms Normal sinus rhythm Normal ECG When compared with ECG of 15-JAN-2022 19:20, No significant change was found Confirmed by Lion Diego ([id number] on 03/11/2022 2:04:11 PM Referred By: REFERRED SELF Confirmed By:Yvan Diego
[2022-03-11] MEDS: ENOXAPARIN INJ 40 MG/0.4 ML SYR SQ SCH (20:57)
[2022-03-12] MEDS: oxyCODONE HCL IR 5 MG TAB (IMMEDIATE RELEASE) PO PRN ×3 (01:21→16:01)
[2022-03-12] MEDS: methylPREDNISolone 40 MG in SYRINGE 0 ML IV SCH (01:21)
[2022-03-12] MEDS: ALBUT/IPRATROP 3MG/0.5MG NEB 3 ML VIAL INH SCH ×3 (07:05→14:55)
[2022-03-12] MEDS: BUDESONIDE 0.5 MG/2 ML VIAL (PULMICORT) INH SCH (07:05)
[2022-03-12 07:15] LABS: Hematocrit (blood only) 35.2 % (37-47); Hemoglobin 10.4 g/dL (12.0-16.0); Mean Corpuscular Hemoglobin 25.4 pg (25-34); Mean Corpuscular Hgb Conc 29.5 g/dL (32-36); Mean Corpuscular Volume 85.9 fL (80-100); Mean Platelet Volume 10.1 fL (7.4-10.4); Platelet Count 463 K/uL (130-400); RDW Coefficient of Variation 18.6 % (11.5-14.5); RDW Standard Deviation 58.1 fL (36.4-46.3); White Blood Count 15.01 K/uL (4.8-10.8)
[2022-03-12 07:45] LABS: Calcium 9.1 mg/dl (8.5-10.1); Creatinine Clr Calc Pharmacy 51.6 ml/min; Est GFR (African American) 81.6 ml/min; Est GFR (Non-African American) 70.4 ml/min; Potassium 4.9 mmol/L (3.5-5.1)
[2022-03-12] MEDS: CYANOCOBALAMIN 1000 MCG/ML VIAL IM SCH (08:08)
[2022-03-12] MEDS: carvediloL 12.5 MG TAB PO SCH (08:09)
[2022-03-12] MEDS: FERROUS SULFATE 325 MG TAB PO SCH (08:10)
[2022-03-12] MEDS: AZITHROMYCIN 250 MG TAB PO SCH (08:10)
[2022-03-12] MEDS: ATORVASTATIN 40 MG TAB PO SCH (08:10)
[2022-03-12] MEDS: NICOTINE 7 MG/24 HR TDSY TD SCH (08:10)
[2022-03-12] MEDS: guaiFENesin 600 MG TABCR PO SCH (08:10)
[2022-03-12] MEDS: UMECLIDINIUM/VILANTEROL 62.5/25MCG 7 PUFFS/INHALER INH SCH (08:11)
[2022-03-12] MEDS: dilTIAZem HCL 120 MG CAPCR PO SCH (08:11)
[2022-03-12] MEDS: ASPIRIN 81 MG ECTAB PO SCH (08:11)
[2022-03-12] MEDS: INSULIN ASPART PER UNIT SC SCH ×2 (08:21→13:31)
[2022-03-12] MEDS: FAMOTIDINE 20 MG in SYRINGE 3 ML IV SCH (08:22)
--- NOTE | 2022-03-12 14:05 | Discharge Summary ---
Date of Service March 12, 2022 Admission HPI Per Admitting Provider Mrs. Gandara is a 71 year old female with PMHx of COPD, DMII, HTN, HLD, CKD, AAA, chronic back pain who presents this evening with increased shortness of breath and productive cough for several days. Patient has COPD, baseline cough is productive of some phlegm, she notes this has increased over the past several days along with worsening shortness of breath. She is on 3 L nasal cannula at all times in addition to her prescribed inhalers, over the past few days she has increased her oxygen requirement to 4 L. She also reports chills at home, but no report no fevers. She states today she has had abdominal pain for years now, however the past couple days has become worse. It is diffuse, all over but without nausea, vomiting, diarrhea, constipation, hematochezia, melena. Without weakness, myalgias, night sweats, chest pain, palpitations. Patient smokes half pack per day. In ED, she is hypertensive, SpO2 93% on 3L NC which is her baseline O2 requirement. CXR shows emphysema without acute process. Afebrile, no leukocytosis, labs significant for bicarb 45, vBG pH 7.39, CO2 76, glucose 142, Mg++ 1.5. Flu/COVID/RSV negative. Received albuterol, IV azithromycin, mucinex, magnesium, and Solu-Medrol in ED with improvement. DuoNeb and Fentanyl 50 mcg via EMS en route as she complained of back pain. Principal Diagnosis COPD Exacerbation, Acut francisco chronic respiratory failure with hypoxia and hypercarbia, B12 deficiency Discharge Exam Constitutional WD/WN, vitals as above Eyes + anicteric sclerae Neck trachea midline, no thyromegaly Respiratory normal respiratory effort, lungs clear to auscultation (diminshed BS throughout) Cardiovascular RRR, no murmur, no edema Chest (Breasts) Chest: normal inspection of chest Gastrointestinal (Abdomen) normal bowel sounds, soft, nontender, no hepatosplenomegaly Musculoskeletal Extremities: extremities normal to inspection; no cyanosis and no clubbing Skin no rashes, warm and dry Neurologic moves all extremities and awake; no focal motor deficits Psychiatric A+Ox3, euthymic affect Lymphatic no lymphedema Discharge Data Allergies Allergy/AdvReac Type Severity Reaction Status Date / Time diflunisal Allergy Unknown HEART RACES Verified 03/10/22 20:50 Consultations 03/10/22 20:09 ED Decision to Admit Stat Ordered Studies 03/10/22 21:50 CT abd pelvis oral and IV con Urgent Hospital Course (1) Acute and chronic respiratory failure: With COPD Exacerbation and acute on chronic respiratory failure with hypoxia nd hypercarbia SpO2 93% on 3L (this is baseline O2 requirement), vBG CO2 76, no leukocytosis. COVID/flu/RSV negative. Some wheezes with prolonged expiratory phase. Placed on Azithromycin for COPD exacerbation Continue mucinex BID received solumedrol Q8H for now, switch to prednisone taper upon discharge Mag 1.5 on admission -- possibly secondary to PPI use as d/c last admission with Doxy/PPI. Repeat wnl Nicotine patch ordered, but rec cessation Titrate O2 to maintain saturations-back to baseline 3L on discharge Procalcitonin elevated to 17.6. CXR clear. UA without obv infection. CTAP without acute process ==> monitor blood cultures-no growth to date Was having chills at home, no fevers here, WBC up to 15 now from steroids. She is overall much improved clinically, doing well and ready for discharge to home f/u on BCxs after discharge but do not suspect these will be positive (2) Hypomagnesemia: -1.5 in ED, repleted. ?2nd to PPI use during last admission --> Repeat wnl now normalized (3) Abdominal pain: Diffusely tender on admission, now resolved, LFT's wnl, amylase and lipase wnl, patient afebrile, no leukocytosis or associated n/v, diarrhea, constipation, melena or hematochezia. Reports she has chronic abdominal pain for years but is worse for the past several days. Is mocing her bowels now with taking prune juice and abd pain is resolved -CT A/P to look for possible cause --> NEGATIVE (4) Chronic kidney disease: Cr at baseline IVF ordered as slightly dehydrated on exam (5) Anemia: Hgb stable 10.3 and on iron supplementation at discharge Normocytic B12/folate checked --> B12 LOW, folate wnl. Iron studies checked and acceptable replace B12 (6) Diabetes type 2, uncontrolled: Last a1c 8.0, on januvia, held on admission BSG ac/hs, ssi while inpatient Monitor, BSGs acceptable restart home metformin an djardiance on dc (7) HTN (hypertension): BP stable, continues on carvedilol, diltiazem. (8) Hyperlipidemia: Continue atorvastatin. (9) Chronic low back pain: Chronic, stable. EMS gave 50 mcg fentanyl en route as she complained of back pain initially. -Continue oxycodone 5mg TID prn, pt taking this at home. No increased pain reported bowel regimen (10) B12 deficiency: as above, LOW ON check --> send with supplementation at discharge but received IM B12 while inpatient SCDs, Lovenox for DVT prophylaxis Dispo-dc to home Gave cltrimazeol PV x 7 days as she feels like she is developing vaginal yeast infection with being on abx and steroids Total Time Total Time Spent Total Time Spent (In Minutes): 35 min Discharge Plan Discharge Items Patient Disposition: Home - Self-Care Reason For Visit: COPD EXACERBATION Discharge Diagnosis: COPD Exacerbation, Acute on chronic respiratory failure with hypoxia and hypercarbia Vitamin B 12 deficiency Condition on Discharge: Fair Activity: As commented below Lifting: Gradually increase as tolerated Bathing: No limitations Exercise/Sports: Gradually increase as tolerated Weightbearing: Full weightbearing Non-emergency contact: Primary Care Provider Call non-emergency contact if: you have any medication questions and your symptoms worsen Follow-up/Referrals: Rosi Borges CRNP [Primary Care Provider] - (Follow up within 1 week) Diet: Carb Consistent or DM2 Addtl Attending Provider Instructions: Please continue on the antibiotic and the prednisone as prescribed for your bronchitis. Continue on your same 3 L of oxygen continuously at home. Follow up with your PCP within 1 week. It is very important that you continue to quit smoking after discharge. This will help prevent you from having future attacks of bronchitis. Pending Studies at Discharge: Yes (Final blood cultures-no growth to date) Stand-Alone Forms: [facility], Smoking Cessation Medications and DC Order Prescriptions: New azithromycin 250 mg Tablet 250 mg PO QAM Qty: 3 RF: 0 guaifenesin [Mucinex] 600 mg Tablet Extended Release 12hr 1,200 mg PO BID Qty: 28 RF: 0 cyanocobalamin (vitamin B-12) 1,000 mcg capsule 1,000 mcg PO DAILY Qty: 30 RF: 0 clotrimazole [Clotrimazole-7] 1 % cream 1 appful vaginal HS 7 Days Qty: 45 RF: 0 prednisone 10 mg tablet 40 mg PO DAILY Qty: 14 RF: 0 Continued ipratropium-albuterol 0.5 mg-3 mg(2.5 mg base)/3 mL solution for nebulization 3 ml INHALATION QID PRN (Reason: Shortness Of Breath Or Wheezing) RF: 0 atorvastatin [Lipitor] 40 mg tablet 40 mg PO QAM RF: 0 carvedilol [Coreg] 12.5 mg tablet 12.5 mg PO BID RF: 0 budesonide [Pulmicort] 0.5 mg/2 mL suspension for nebulization 0.5 mg inhalation BID RF: 0 aspirin [Aspirin Low Dose] 81 mg Tablet,Delayed Release (Dr/Ec) 81 mg PO QAM RF: 0 albuterol sulfate [Ventolin HFA] 90 mcg/actuation HFA aerosol inhaler 2 puff INHALATION Q6 PRN (Reason: Shortness Of Breath Or Wheezing) RF: 0 metformin 1,000 mg tablet 1,000 mg PO BID RF: 0 Jardiance 10 mg tablet 10 mg PO QAM RF: 0 oxycodone [Roxicodone] 5 mg tablet 5 mg PO TID PRN (Reason: Pain) RF: 0 (DME) blood-glucose meter [OneTouch Verio Meter] Misc See Rx Instructions .ROUTE .MEDSUPPLY Qty: 1 RF: 0 (DME) OneTouch Verio test strips Strip See Rx Instructions .ROUTE .MEDSUPPLY Qty: 50 RF: 3 (DME) lancets [OneTouch Delica Lancets] 33 gauge misc See Rx Instructions .ROUTE .MEDSUPPLY Qty: 100 RF: 3 ferrous sulfate [Iron (ferrous sulfate)] 325 mg (65 mg iron) tablet 325 mg PO BID RF: 0 Stiolto Respimat 2.5-2.5 mcg/actuation mist 2 spray INHALATION QAM RF: 0 diltiazem HCl 120 mg capsule,extended release 24hr 120 mg PO DAILY RF: 0 Discontinued doxycycline hyclate 100 mg Capsule 100 mg PO BID Qty: 7 RF: 0 Discharge Orders: Discharge Order (Routine); Ordered 03/12/22 Ordered By: Keren Kraus Admission Data Admit Date/Time: 03/10/22 20:20 Attending Provider: Keren Kraus Admit Provider: Danie Mckay Primary Care Provider: Rosi Borges Other Providers: Danie Mckay Coding Level of Care Code D/C DAY MANAGEMENT >30 MINS Diagnoses Acute and chronic respiratory failure J96.21; J96.22 Respiratory failure complication: hypoxia and hypercapnia Hypomagnesemia E83.42 Abdominal pain R10.9 Chronic kidney disease N18.9 Anemia D64.9 Diabetes type 2, uncontrolled E11.65 Glycemic state: with hyperglycemia HTN (hypertension) I10 Hyperlipidemia E78.5 Chronic low back pain M54.5; G89.29 B12 deficiency E53.8
[2022-03-12] MEDS ORDERED: methylPREDNISolone 40 MG in SYRINGE 0 ML IV SCH (21:00)
== END 2022-03-12 16:50 | disposition home health service (06) | DRG 189 ==
LOC: ED 18:01 → SUATTDRO 20:20 → 2N 20:20

== ENCOUNTER 2022-04-20 16:57 | Inpatient (IN) ==
[2022-04-20] MEDS ORDERED: ONDANSETRON INJ 2 MG/ML 2 ML VIAL IV STA (17:19)
[2022-04-20] MEDS ORDERED: MoRPHine SULFATE 4 MG/ML 1 ML CARP\\VIAL IV STA ×2 (17:19→20:10)
[2022-04-20] MEDS ORDERED: dexAMETHasone**PF** 10 MG/ML VIAL IV ONE (17:19)
[2022-04-20] MEDS ORDERED: SODIUM CHLORIDE 0.9% 1000ML 500 ML IV ONE (17:19)
[2022-04-20] MEDS ORDERED: ALBUT/IPRATROP 3MG/0.5MG NEB 3 ML VIAL NEB STA (17:19)
--- NOTE | 2022-04-20 17:23 | Emergency Department Note ---
Impression & Plan SOB (shortness of breath), COPD exacerbation, Dizziness, Acute UTI, Hypomagnesemia ED Provider Note NAME: DANIELLA FLANNERY AGE: 72 SEX: F : 1950 ARRIVES VIA: Ambulance INFORMANT: [Patient][nursing] ED PROVIDER(S): [Koby Magana MD] CHIEF COMPLAINT: Pain, short of breath HISTORY OF PRESENT ILLNESS: The patient is a 72-year-old female who presents with multiple complaints. She complains of dizziness, 2 days of moderate left chest pain that has been constant but worse with movement. She has had 2 days of shortness of breath and increased cough. She is worried about pneumonia. She also complains of some diffuse abdominal pain and some bilateral lower leg pain. She is asking for some pain medication. On the way here via EMS, she was given 4 baby aspirin. She was given a DuoNeb. She refused nitroglycerin. Her breathing seemed to improve. She asked for narcotic pain medication but the EMS crew declined. The patient does have COPD, she is on chronic pain medication. The patient denies any fever. She denies any vomiting. She believes that she is eating and drinking enough. She has not had urinary complaints. REVIEW OF SYSTEMS: See HPI for pertinent positives and negatives. A total of ten systems were revie wed and were otherwise negative. PMHx/PSHx: See Below SOCIAL HISTORY: See Below. PHYSICAL EXAM: GENERAL: Patient is in no acute distress. HEENT: No acute trauma, normocephalic atraumatic, mucous membranes moist, no nasal congestion, no scleral icterus. NECK: No stridor, no adenopathy, no meningismus, trachea is midline. LUNGS: Diminished breath sounds bilaterally with wheezing bilaterally, no respiratory distress, breath sounds equal. Chest: Tender across the anterior sternal and left chest wall. HEART: No obvious murmur, regular rate and rhythm ABDOMEN: Soft, nontender, bowel sounds positive, no peritonitis. EXTREMITIES: No cyanosis or edema, full range of motion of all the joints without pain or difficulty, no signs for acute trauma. NEUROLOGIC: Oriented x 3, no acute motor or sensory deficits, no focal weakness. SKIN: No rash, no jaundice, no diaphoresis. DIFFERENTIAL DIAGNOSIS: Reactive airway disease, pneumonia, COVID-19, influenza, viral illness, UTI, pneumothorax, COPD, CHF, infection, cardiac ischemia, pulmonary embolism, bronchitis, musculoskeletal, gastrointestinal, as well as other pathologies. EMERGENCY DEPARTMENT COURSE/PROCEDURES: ECG: Indication was chest pain and shortness of breath. The ECG shows a normal sinus rhythm with some artifact. The rate is 76. There is a potential old inferior infarct seen. There is an inverted T wave in lead aVL. No ST elevation. QTc is 456. Compared to an ECG from 24 Mar 2022, I see no significant change. Continuous Cardiac Monitoring: An order was placed for continuous cardiac monitoring. The monitor shows a rate of 83 with normal sinus rhythm. MEDICAL DECISION MAKING: There is no leukocytosis. The patient is anemic but this is baseline looking back at previous testing. Platelet count slightly elevated. No coagulopathy. No concerning liver enzyme elevation. No renal failure. Lactic acid level was not elevated making severe sepsis less likely. Magnesium was low at 1.6. ECG shows a normal sinus rhythm, no ischemia. Cardiac enzyme testing x1 is not consistent with acute cardiac injury. Urinalysis is consistent with infection. Respiratory bio fire testing was negative. Chest x-ray shows chronic findings, no pneumonia or CHF. Brain CT shows no acute bleed or mass-effect. On exam, the patient does not appear toxic, she was not febrile. She was wheezing. Her breath sounds were diminished. The patient received IV saline, 500 cc. She was given IV Zofran, IV morphine. A second dose of IV morphine was given. She received oral magnesium, IV Decadron and IV ceftriaxone. She was given a DuoNeb. The patient presents with dizziness, weakness, shortness of breath. She appears to have an exacerbation of COPD. She has a UTI. She has a lower magnesium level. The patient is not stable to discharge home. She requires further care here in the hospital. I did speak with the patient and case management. The on-call hospitalist was consulted. Past Med/Surg History Medical History AAA (abdominal aortic aneurysm) Acute hypotension Acute UTI Chronic low back pain Diabetes type 2, uncontrolled Diaphragmatic hernia (10/31/11) History of knee replacement Left peroneal nerve palsy Respiratory failure Syncope Surgical History H/O Achilles tendon repair (~2007) H/O: hysterectomy History of appendectomy History of bilateral oophorectomies History of lithotripsy (~2007) Hx of cholecystectomy Family History Other Family history non-contributory Social History Smoking Status: Current every day smoker Tobacco Type: Cigarettes Cigarettes Per Day: half pack; Second Hand Exposure: No; Hx Alcohol Use: No Hx Substance Use: No Preferred Language: Monegasque Communication Ability: Effective Vacuum Spindle Sander Required: No Beliefs That Will Affect Care: None marital status: Current Living Situation: Spouse How many Children do You have: 3 Other Information That Helps Us Care for You: No Feels Safe at Home: Yes Assistive Devices: Walker Allergies Allergies Allergy/AdvReac Type Severity Reaction Status Date / Time diflunisal Allergy Unknown HEART RACES Verified 04/20/22 17:57 Home Meds Home Medications Medication Instructions Recorded Confirmed albuterol sulfate 90 mcg/actuation 2 puff INHALATION Q6 PRN 08/28/20 04/20/22 aerosol inhaler (Ventolin HFA) aspirin 81 mg tablet,delayed 81 mg PO QAM 08/28/20 04/20/22 release (Aspirin Low Dose) atorvastatin 40 mg tablet (Lipitor) 40 mg PO QAM 08/28/20 04/20/22 budesonide 0.5 mg/2 mL suspension 0.5 mg INHALATION BID 08/28/20 04/20/22 for nebulization (Pulmicort) carvedilol 12.5 mg tablet (Coreg) 12.5 mg PO BID 08/28/20 04/20/22 empagliflozin 10 mg tablet 10 mg PO QAM 08/28/20 04/20/22 (Jardiance) metformin 1,000 mg tablet 1,000 mg PO BID 08/28/20 04/20/22 ipratropium 0.5 mg-albuterol 3 mg 3 ml INHALATION QID PRN 09/25/20 04/20/22 (2.5 mg base)/3 mL nebulization soln oxycodone 5 mg tablet (Roxicodone) 5 mg PO TID PRN 05/13/21 04/20/22 ferrous sulfate 325 mg (65 mg 325 mg PO BID 09/02/21 04/20/22 iron) tablet (Iron (ferrous sulfate)) tiotropium 2.5 mcg-olodaterol 2.5 2 spray INHALATION QAM 09/02/21 04/20/22 mcg/actuation mist for inhalation (Stiolto Respimat) diltiazem HCl 120 mg 120 mg PO DAILY 01/12/22 04/20/22 capsule,extended release 24 hr folic acid 1 mg tablet 1 mg PO QAM 03/24/22 04/20/22 losartan 50 mg tablet 50 mg PO QAM 03/24/22 04/20/22 Previous Rx's Medication Instructions Recorded blood sugar diagnostic (OneTouch #50 ea 06/02/21 Verio test strips) blood-glucose meter (OneTouch #1 ea 06/02/21 Verio Meter) lancets 33 gauge (OneTouch Delica #100 ea 06/02/21 Lancets) azithromycin 250 mg tablet 250 mg PO QAM #3 tab 03/12/22 cyanocobalamin (vitamin B-12) 1,000 mcg PO DAILY #30 cap 03/12/22 1,000 mcg capsule guaifenesin 600 mg tablet, 1,200 mg PO BID #28 tab 03/12/22 extended release 12 hr (Mucinex) prednisone 10 mg tablet 40 mg PO DAILY #14 tab 03/12/22 benzonatate 100 mg capsule 100 - 200 mg PO TID PRN #30 cap 03/24/22 Results & Data (ED) Vital Signs Vital Signs - 24 hr 04/20/22 17:04 04/20/22 17:06 04/20/22 17:34 Temperature 37.6 C H Temperature Source Oral Pulse Rate 83 Pulse Rate from SpO2 Sensor Respiratory Rate 19 Respiratory Effort / Characteristics Spontaneous Respiratory Depth Shallow Blood Pressure 162/76 H Blood Pressure Mean 104 Pulse Oximetry 95 95 97 Oxygen Delivery Method Room Air Nasal Cannula Nasal Cannula Oxygen Flow Rate 2 2 Sepsis Recent Fever Within 48 Hours No Sepsis New/Unexplained Change in Mental Status No Sepsis Action Taken by Nursing No Action Required 04/20/22 18:30 04/20/22 19:00 04/20/22 19:30 Temperature Temperature Source Pulse Rate 83 89 95 H Pulse Rate from SpO2 Sensor 83 89 93 H Respiratory Rate 29 H 21 31 H Respiratory Effort / Characteristics Respiratory Depth Blood Pressure 145/72 H 128/76 163/91 H Blood Pressure Mean 96 93 115 Pulse Oximetry 94 94 93 Oxygen Delivery Method Oxygen Flow Rate Sepsis Recent Fever Within 48 Hours Sepsis New/Unexplained Change in Mental Status Sepsis Action Taken by Nursing 04/20/22 20:00 04/20/22 20:30 Temperature Temperature Source Pulse Rate 86 86 Pulse Rate from SpO2 Sensor 86 85 Respiratory Rate 30 H 25 H Respiratory Effort / Characteristics Respiratory Depth Blood Pressure 149/76 H 137/77 Blood Pressure Mean 100 97 Pulse Oximetry 95 93 Oxygen Delivery Method Oxygen Flow Rate Sepsis Recent Fever Within 48 Hours Sepsis New/Unexplained Change in Mental Status Sepsis Action Taken by Retirement Medications Current Medication List: was personally reviewed by me Laboratory Data Attestation: I reviewed the patient's lab results. Result diagrams: 04/20/22 17:05 04/20/22 17:05 Lab Results 04/20/22 04/20/22 04/20/22 Range/Units 17:05 17:05 17:05 WBC 7.34 (4.8-10.8) K/uL RBC 4.21 (4.2-5.4) M/uL Hgb 10.7 L (12.0-16.0) g/dL Hct 36.6 L (37-47) % MCV 86.9 (80-100) fL MCH 25.4 (25-34) pg MCHC 29.2 L (32-36) g/dL RDW Std Deviation 57.5 H (36.4-46.3) fL RDW Coeff of Dorcas 18.2 H (11.5-14.5) % Plt Count 529 H (130-400) K/uL MPV 9.8 (7.4-10.4) fL Immature Gran % (Auto) 0.7 % Neut % (Auto) 67.3 % Lymph % (Auto) 22.9 % Green % (Auto) 7.5 % Eos % (Auto) 1.2 % Baso % (Auto) 0.4 % Neut # (Auto) 4.94 (1.4-6.5) K/uL Lymph # (Auto) 1.68 (1.2-3.4) K/uL Green # (Auto) 0.55 (0.11-0.59) K/uL Eos # (Auto) 0.09 (0-0.5) K/uL Baso # (Auto) 0.03 (0-0.2) K/uL Immature Gran # (Auto) 0.05 H (0.00-0.02) K/uL PT 10.9 (9.0-12.0) Seconds INR 1.0 (0.9-1.1) APTT 28.2 (21.0-31.0) Seconds PTT Ratio 1.0 Sodium 140 (136-145) mmol/L Potassium 3.6 (3.5-5.1) mmol/L Chloride 105 (98-107) mmol/L Carbon Dioxide 27 (21-32) mmol/L Anion Gap 8 (3-11) BUN 10 (6-23) mg/dl Creatinine 0.74 (0.6-1.2) mg/dl Est Cr Clr Drug Dosing 58.5 ml/min Est GFR ( Amer) 95.1 ml/min Est GFR (Non-Af Amer) 82.1 ml/min BUN/Creatinine Ratio 13.5 (10-20) Glucose 165 H (70-99(Fasting)) mg/dl Lactate (0.4-2.0) mmol/L Calcium 9.1 (8.5-10.1) mg/dl Magnesium 1.6 L (1.7-2.4) mg/dl Total Bilirubin 0.2 (0.2-1.0) mg/dl AST 10 L (13-39) U/L ALT 9 (7-52) U/L Alkaline Phosphatase 83 (34-104) U/L Troponin I High Sens 4.4 (0-14) pg/ml Total Protein 6.3 (6.0-8.3) gm/dl Albumin 3.7 (3.4-5.0) gm/dl Globulin 2.6 (2.5-4.0) gm/dl Albumin/Globulin Ratio 1.4 (0.9-2) Urine Color Urine Appearance (Clear) Urine pH (4.5-7.5) Ur Specific [place] (1.000-1.030) Urine Protein (Negative) Urine Glucose (UA) (Negative) Urine Ketones (Negative) Urine Blood (Negative) Urine Nitrite (Negative) Urine Bilirubin (Negative) Urine Urobilinogen (Negative) Ur Leukocyte Esterase (Negative) Urine WBC (Auto) (0-5) /hpf Urine RBC (Auto) (0-4) /hpf U Hyaline Cast (Auto) (0-5) /lpf U Epithel Cells (Auto) (0-5) /lpf Urine Bacteria (Auto) (Negative) Adenovirus (PCR) (NotDetected) B. pertussis DNA (PCR) (NotDetected) B.parapertussis DNA PCR (NotDetected) C. pneumoniae DNA (PCR) (NotDetected) Coronavirus OC43 (PCR) (NotDetected) Coronavirus HKU1 (PCR) (NotDetected) Coronavirus 229E (PCR) (NotDetected) SARS-CoV-2 (PCR) (NotDetected) Coronavirus NL63 (PCR) (NotDetected) Human Metapneumovir PCR (NotDetected) Influenza Type A (PCR) (NotDetected) Influenza Type B (PCR) (NotDetected) M. pneumoniae (PCR) (NotDetected) Parainfluenza 1 (PCR) (NotDetected) Parainfluenza 2 (PCR) (NotDetected) Parainfluenza 3 (PCR) (NotDetected) Parainfluenza 4 (PCR) (NotDetected) RSV (PCR) (NotDetected) Entero/Rhino (PCR) (NotDetected) 04/20/22 04/20/22 04/20/22 Range/Units 17:35 17:45 18:00 WBC (4.8-10.8) K/uL RBC (4.2-5.4) M/uL Hgb (12.0-16.0) g/dL Hct (37-47) % MCV (80-100) fL MCH (25-34) pg MCHC (32-36) g/dL RDW Std Deviation (36.4-46.3) fL RDW Coeff of Dorcas (11.5-14.5) % Plt Count (130-400) K/uL MPV (7.4-10.4) fL Immature Gran % (Auto) % Neut % (Auto) % Lymph % (Auto) % Green % (Auto) % Eos % (Auto) % Baso % (Auto) % Neut # (Auto) (1.4-6.5) K/uL Lymph # (Auto) (1.2-3.4) K/uL Green # (Auto) (0.11-0.59) K/uL Eos # (Auto) (0-0.5) K/uL Baso # (Auto) (0-0.2) K/uL Immature Gran # (Auto) (0.00-0.02) K/uL PT (9.0-12.0) Seconds INR (0.9-1.1) APTT (21.0-31.0) Seconds PTT Ratio Sodium (136-145) mmol/L Potassium (3.5-5.1) mmol/L Chloride (98-107) mmol/L Carbon Dioxide (21-32) mmol/L Anion Gap (3-11) BUN (6-23) mg/dl Creatinine (0.6-1.2) mg/dl Est Cr Clr Drug Dosing ml/min Est GFR ( Amer) ml/min Est GFR (Non-Af Amer) ml/min BUN/Creatinine Ratio (10-20) Glucose (70-99(Fasting)) mg/dl Lactate 1.1 (0.4-2.0) mmol/L Calcium (8.5-10.1) mg/dl Magnesium (1.7-2.4) mg/dl Total Bilirubin (0.2-1.0) mg/dl AST (13-39) U/L ALT (7-52) U/L Alkaline Phosphatase (34-104) U/L Troponin I High Sens (0-14) pg/ml Total Protein (6.0-8.3) gm/dl Albumin (3.4-5.0) gm/dl Globulin (2.5-4.0) gm/dl Albumin/Globulin Ratio (0.9-2) Urine Color Yellow Urine Appearance Clear (Clear) Urine pH 6.5 (4.5-7.5) Ur Specific [place] 1.029 (1.000-1.030) Urine Protein 2+ H (Negative) Urine Glucose (UA) 3+ H (Negative) Urine Ketones Negative (Negative) Urine Blood Negative (Negative) Urine Nitrite Positive A (Negative) Urine Bilirubin Negative (Negative) Urine Urobilinogen Negative (Negative) Ur Leukocyte Esterase Negative (Negative) Urine WBC (Auto) >30 H (0-5) /hpf Urine RBC (Auto) 0-4 (0-4) /hpf U Hyaline Cast (Auto) 0 (0-5) /lpf U Epithel Cells (Auto) >30 H (0-5) /lpf Urine Bacteria (Auto) 4+ H (Negative) Adenovirus (PCR) Not Detected (NotDetected) B. pertussis DNA (PCR) Not Detected (NotDetected) B.parapertussis DNA PCR Not Detected (NotDetected) C. pneumoniae DNA (PCR) Not Detected (NotDetected) Coronavirus OC43 (PCR) Not Detected (NotDetected) Coronavirus HKU1 (PCR) Not Detected (NotDetected) Coronavirus 229E (PCR) Not Detected (NotDetected) SARS-CoV-2 (PCR) Not Detected (NotDetected) Coronavirus NL63 (PCR) Not Detected (NotDetected) Human Metapneumovir PCR Not Detected (NotDetected) Influenza Type A (PCR) Not Detected (NotDetected) Influenza Type B (PCR) Not Detected (NotDetected) M. pneumoniae (PCR) Not Detected (NotDetected) Parainfluenza 1 (PCR) Not Detected (NotDetected) Parainfluenza 2 (PCR) Not Detected (NotDetected) Parainfluenza 3 (PCR) Not Detected (NotDetected) Parainfluenza 4 (PCR) Not Detected (NotDetected) RSV (PCR) Not Detected (NotDetected) Entero/Rhino (PCR) Not Detected (NotDetected) Administered Medications Albuterol (Albut/Ipratrop 3mg/0.5mg Neb 3 Ml Vial) 3 ml INH QIDR [facility]; Protocol Stop: 05/20/22 22:01 Last Admin: 04/20/22 22:45 Dose: 3 ml Documented by: [id number] Budesonide (Budesonide 0.5 Mg/2 Ml Vial (Pulmicort)) 0.5 mg INH BIDR [facility] Stop: 05/20/22 22:01 Last Admin: 04/20/22 22:45 Dose: 0.5 mg Documented by: [id number] Carvedilol (Carvedilol 12.5 Mg Tab) 12.5 mg PO BIDM [facility] Stop: 05/20/22 22:01 Last Admin: 04/20/22 23:29 Dose: 12.5 mg Documented by: [id number] Enoxaparin Sodium (Enoxaparin Inj 30 Mg/0.3 Ml Syr) 30 mg SQ Q24H [facility] Stop: 05/20/22 21:59 Last Admin: 04/20/22 23:28 Dose: 30 mg Documented by: [id number] Ferrous Sulfate (Ferrous Sulfate 325 Mg Tab) 325 mg PO BID [facility] Stop: 05/20/22 22:01 Last Admin: 04/20/22 23:30 Dose: 325 mg Documented by: [id number] Guaifenesin (Guaifenesin 600 Mg Tabcr) 1,200 mg PO BID [facility] Stop: 05/20/22 22:01 Last Admin: 04/20/22 23:29 Dose: 1,200 mg Documented by: [id number] Methylprednisolone 40 mg/ (Syringe) 0.64 mls @ 1.5 mls/min IV Q8H [facility] Stop: 05/20/22 22:59 Last Admin: 04/20/22 23:31 Dose: 1.5 mls/min Documented by: [id number] Insulin Aspart (Insulin Aspart Per Unit) 0 units SC ACHS [facility] Stop: 05/20/22 22:01 Last Admin: 04/20/22 23:31 Dose: 6 units Documented by: [id number] Cosigned by: [id number] Metformin HCl (Metformin Hcl 500 Mg Tab) 1,000 mg PO BIDM [facility] Stop: 05/20/22 22:01 Last Admin: 04/20/22 23:30 Dose: 1,000 mg Documented by: [id number] Discontinued Medications Albuterol (Albut/Ipratrop 3mg/0.5mg Neb 3 Ml Vial) 3 ml NEB NOW STA; Protocol Stop: 04/20/22 17:20 Last Admin: 04/20/22 17:43 Dose: 3 ml Documented by: [id number] Dexamethasone Sodium Phosphate (DexamethasonePf 10 Mg/Ml Vial) 6 mg IV NOW ONE Stop: 04/20/22 17:20 Last Admin: 04/20/22 17:30 Dose: 6 mg Documented by: [id number] Sodium Chloride (Nss 1000ml) 500 mls @ 999 mls/hr IV .Q31M ONE Stop: 04/20/22 17:49 Last Infusion: 04/20/22 18:08 Dose: 0 mls/hr Documented by: [id number] Admin: 04/20/22 17:30 Dose: 999 mls/hr Documented by: [id number] Ceftriaxone Sodium (Rocephin) 2,000 mg in 70 mls @ 140 mls/hr IV NOW STA Stop: 04/20/22 19:10 Last Infusion: 04/20/22 19:35 Dose: 0 mls/hr Documented by: [id number] Admin: 04/20/22 18:59 Dose: 140 mls/hr Documented by: [id number] Ceftriaxone Sodium 1,000 mg/ (Dextrose) 60 mls @ 100 mls/hr IV NOW STA; Protocol Stop: 04/20/22 21:33 Last Admin: 04/20/22 21:37 Dose: Not Given Documented by: [id number] Magnesium Oxide (Magnesium Oxide 400 Mg Tab) 400 mg PO NOW STA Stop: 04/20/22 18:47 Last Admin: 04/20/22 18:59 Dose: 400 mg Documented by: [id number] Morphine Sulfate (Morphine Sulfate 4 Mg/Ml 1 Ml Carp\Vial) 4 mg IV NOW STA Stop: 04/20/22 17:20 Last Admin: 04/20/22 17:29 Dose: 4 mg Documented by: [id number] Morphine Sulfate (Morphine Sulfate 4 Mg/Ml 1 Ml Carp\Vial) 4 mg IV NOW STA Stop: 04/20/22 20:11 Last Admin: 04/20/22 20:16 Dose: 4 mg Documented by: [id number] Ondansetron HCl (Ondansetron Inj 2 Mg/Ml 2 Ml Vial) 4 mg IV NOW STA Stop: 04/20/22 17:20 Last Admin: 04/20/22 17:29 Dose: 4 mg Documented by: [id number] Imaging Data Radiologist's Impression: Head CT 04/20/22 17:[address] DOSE: 537.48 mGy.cm HISTORY: lightheaded, weak TECHNIQUE: Multiaxial CT images of the head were performed without the use of intravenous contrast. Automated exposure control was utilized for this study. A dose lowering technique was utilized adhering to the principles of ALARA. Comparison: None. Findings: The paranasal sinuses and mastoid air cells are clear. The calvarium and skull base are intact. The ventricles and sulci are within normal limits. There is no mass, hematoma, midline shift, or acute infarct. Bilateral basal ganglia calcifications are again noted. A few patchy areas of hypodensity within the periventricular white matter remains unchanged and favor microvascular ischemic change. Impression: No significant change compared to the prior study. No acute intracranial abnormality. ACT 112: Negative or not required by law. Electronically signed by: Wicho Gutierrez M.D. 04/20/2022 5:57 PM Chest X-Ray 04/20/22 17:20 XR chest 1V portable HISTORY: Shortness of breath. COMPARISON: Chest 03/24/2022. FINDINGS: The heart is normal in size. Calcified plaque within the aortic arch again noted. No pleural effusions. No pneumothorax. Calcified granulomas again noted within the right lung base. No new focal lung consolidations to suggest pneumonia. No evidence for pulmonary edema. IMPRESSION: No significant change compared to the prior study. No acute process. ACT 112: Negative or not required by law. Electronically signed by: Wicho Gutierrez M.D. 04/20/2022 5:59 PM Discharge Plan Visit Data Chief Complaint: Chest Pain Stated Complaint: SOB, CHEST PAIN ED Provider: Koby Magana Discharge Problem: SOB (shortness of breath), COPD exacerbation, Dizziness, Acute UTI, Hypomagnesemia Patient Disposition: Admitted As Inpatient Condition: Fair Discharge Instructions Interventions: ED Discharge Assessment Last Done: 04/20/22 21:42
--- NOTE | 2022-04-20 17:58 | CT Scan Report ---
HEAD CT NONCONTRAST CT DOSE: 537.48 mGy.cm HISTORY: lightheaded, weak TECHNIQUE: Multiaxial CT images of the head were performed without the use of intravenous contrast. A utomated exposure control was utilized for this study. A dose lowering technique was utilized adheri ng to the principles of ALARA. Comparison: None. Findings: The paranasal sinuses and mastoid air cells are clear. The calvarium and skull base are int act. The ventricles and sulci are within normal limits. There is no mass, hematoma, midline shift, or acute infarct. Bilateral basal ganglia calcifications are again noted. A few patchy areas of hypoden sity within the periventricular white matter remains unchanged and favor microvascular ischemic wood e. Impression: No significant change compared to the prior study. No acute intracranial abnormality. ACT 112: Negative or not required by law. Electronically signed by: Wicho Gutierrez M.D. 04/20/2022 5:57 PM
--- NOTE | 2022-04-20 18:00 | XRay Report ---
XR chest 1V portable HISTORY: Shortness of breath. COMPARISON: Chest 03/24/2022. FINDINGS: The heart is normal in size. Calcified plaque within the aortic arch again noted. No pleura l effusions. No pneumothorax. Calcified granulomas again noted within the right lung base. No new foc al lung consolidations to suggest pneumonia. No evidence for pulmonary edema. IMPRESSION: No significant change compared to the prior study. No acute process. ACT 112: Negative or not required by law. Electronically signed by: Wicho Gutierrez M.D. 04/20/2022 5:59 PM
[2022-04-20 18:20] LABS: Appearance Urine Clear (Clear); Bacteria Urine Automated 4+ (Negative); Bilirubin Urine Negative (Negative); Blood Urine Negative (Negative); Cast Urine Automated 0 /lpf (0-5); Color Urine Yellow; Epithelial Cell Urine Auto >30 /lpf (0-5); Glucose Urine UA 3+ (Negative); Ketones Urine Negative (Negative); Leukocyte Esterase Urine Negative (Negative); Nitrite Urine Positive (Negative); Protein Urine 2+ (Negative); RBC Urine Automated 0-4 /hpf (0-4); Specific Gravity Urine 1.029 (1.000-1.030); Urobilinogen Urine Negative (Negative); WBC Urine Automated >30 /hpf (0-5); pH Urine 6.5 (4.5-7.5)
[2022-04-20 18:26] LABS: Basophils # (auto) 0.03 K/uL (0-0.2); Basophils % (auto) 0.4 %; Eosinophils # (auto) 0.09 K/uL (0-0.5); Eosinophils % (auto) 1.2 %; Hematocrit (blood only) 36.6 % (37-47); Hemoglobin 10.7 g/dL (12.0-16.0); Immature Granulocytes # (auto) 0.05 K/uL (0.00-0.02); Immature Granulocytes % (auto) 0.7 %; Lymphocytes # (auto) 1.68 K/uL (1.2-3.4); Lymphocytes % (auto) 22.9 %; Mean Corpuscular Hemoglobin 25.4 pg (25-34); Mean Corpuscular Hgb Conc 29.2 g/dL (32-36); Mean Corpuscular Volume 86.9 fL (80-100); Mean Platelet Volume 9.8 fL (7.4-10.4); Monocytes # (auto) 0.55 K/uL (0.11-0.59); Monocytes % (auto) 7.5 %; Neutrophils # (auto) 4.94 K/uL (1.4-6.5); Neutrophils % (auto) 67.3 %; Platelet Count 529 K/uL (130-400); RDW Coefficient of Variation 18.2 % (11.5-14.5); RDW Standard Deviation 57.5 fL (36.4-46.3); Red Blood Count 4.21 M/uL (4.2-5.4); White Blood Count 7.34 K/uL (4.8-10.8)
[2022-04-20] MEDS ORDERED: cefTRIAXone SODIUM 2,000 MG/70 ML BAG IV STA (18:41)
[2022-04-20 18:43] LABS: Albumin Globulin Ratio 1.4 (0.9-2); Albumin Level 3.7 gm/dl (3.4-5.0); BUN Creatinine Ratio 13.5 (10-20); Bilirubin,Total 0.2 mg/dl (0.2-1.0); Calcium 9.1 mg/dl (8.5-10.1); Creatinine Clr Calc Pharmacy 58.5 ml/min; Est GFR (African American) 95.1 ml/min; Est GFR (Non-African American) 82.1 ml/min; Globulin 2.6 gm/dl (2.5-4.0); Magnesium 1.6 mg/dl (1.7-2.4); Potassium 3.6 mmol/L (3.5-5.1); Total Protein 6.3 gm/dl (6.0-8.3)
[2022-04-20] MEDS ORDERED: MAGNESIUM OXIDE 400 MG TAB PO STA (18:46)
[2022-04-20 18:47] LABS: Troponin I High Sensitivity 4.4 pg/ml (0-14)
[2022-04-20 18:48] LABS: Adenovirus PCR Not Detected (NotDetected); Bordetella parapertussis PCR Not Detected (NotDetected); Bordetella pertussis PCR Not Detected (NotDetected); Chlamydia pneumoniae PCR Not Detected (NotDetected); Coronavirus 229E PCR Not Detected (NotDetected); Coronavirus CoV-2 (COVID19)PCR Not Detected (NotDetected); Coronavirus HKU1 PCR Not Detected (NotDetected); Coronavirus NL63 PCR Not Detected (NotDetected); Coronavirus OC43PCR Not Detected (NotDetected); Human Metapneumovirus PCR Not Detected (NotDetected); Influenza A PCR Not Detected (NotDetected); Influenza B PCR Not Detected (NotDetected); Mycoplasma pneumoniae PCR Not Detected (NotDetected); Parainfluenza Virus 1 PCR Not Detected (NotDetected); Parainfluenza Virus 2 PCR Not Detected (NotDetected); Parainfluenza Virus 3 PCR Not Detected (NotDetected); Parainfluenza Virus 4 PCR Not Detected (NotDetected); Respiratory Syncytial VirusPCR Not Detected (NotDetected); Rhinovirus/Enterovirus PCR Not Detected (NotDetected)
[2022-04-20 18:49] LABS: Partial Thromboplastin Time 28.2 Seconds (21.0-31.0); Prothrombin Time 10.9 Seconds (9.0-12.0)
[2022-04-20] MEDS ORDERED: cefTRIAXone SODIUM 1,000 MG in DEXTROSE 5% 50 ML IV STA (20:58)
--- NOTE | 2022-04-20 21:00 | History & Physical Report ---
Date of Service April 20, 2022 Assessment & Plan (1) Acute on chronic respiratory failure with hypoxia: Plan: Acute on chronic respiratory failure with hypoxia/COPD exacerbation- Duonebs every 4 hours while awake and every 2 hours when necessary. Guaifenesin extended release 12 mg p.o. twice daily Azithromycin 500 mg IV every 24 hours Ceftriaxone 1 g IV every 24 hours Nasal cannula oxygen, titrate to keep pulse ox around 92% (2) COPD exacerbation: Plan: See above (3) Diabetes type 2, uncontrolled: Plan: Hold Jardiance, and metformin Place on Accu-Cheks before meals and at bedtime with NovoLog coverage per scale Check hemoglobin A1c (4) Hypomagnesemia: Plan: Magnesium 1.6 upon admission She was given mag oxide by the ED Add magnesium sulfate 1 g IV Recheck laboratories in a.m. (5) Hyperlipidemia: Plan: Continue atorvastatin 40 mg every morning (6) HTN (hypertension): Plan: Continue aspirin, carvedilol, diltiazem and losartan (7) Chronic pain syndrome: Plan: Patient complains of pain all over. Acetaminophen 650 mg p.o. every 6 hours as needed for mild pain or fever Continue her usual oxycodone 5 mg p.o. 3 times daily as needed severe pain History of Present Illness Chief Complaint: The patient presents to the emergency department with complaints of 2 days of shortness of breath, worsening cough, intermittent dizziness, chest pain, generalized abdominal pain, bilateral lower leg pain and concerns about pneumonia Primary Care Provider: BRET Espinoza The patient is a 72-year-old female with a past medical history including admissions for COPD exacerbation, urinary tract infection, anemia, B12 deficiency, hyperlipidemia, CKD, hypertension, AAA, diabetes mellitus, chronic generalized pain syndrome. Most recent admissions for similar symptoms: 07/29/2021-08/01/2021, 01/13-01/16/2022, and 03/10-03/12/2022. Allergies Allergy/AdvReac Type Severity Reaction Status Date / Time diflunisal Allergy Unknown HEART RACES Verified 04/20/22 17:57 Home Medications Medication Instructions Recorded Confirmed Type albuterol sulfate 90 mcg/actuation 2 puff INHALATION Q6 PRN 08/28/20 04/20/22 History aerosol inhaler (Ventolin HFA) aspirin 81 mg tablet,delayed 81 mg PO QAM 08/28/20 04/20/22 History release (Aspirin Low Dose) atorvastatin 40 mg tablet (Lipitor) 40 mg PO QAM 08/28/20 04/20/22 History budesonide 0.5 mg/2 mL suspension 0.5 mg INHALATION BID 08/28/20 04/20/22 History for nebulization (Pulmicort) carvedilol 12.5 mg tablet (Coreg) 12.5 mg PO BID 08/28/20 04/20/22 History empagliflozin 10 mg tablet 10 mg PO QAM 08/28/20 04/20/22 History (Jardiance) metformin 1,000 mg tablet 1,000 mg PO BID 08/28/20 04/20/22 History ipratropium 0.5 mg-albuterol 3 mg 3 ml INHALATION QID PRN 09/25/20 04/20/22 History (2.5 mg base)/3 mL nebulization soln oxycodone 5 mg tablet (Roxicodone) 5 mg PO TID PRN 05/13/21 04/20/22 History blood sugar diagnostic ([facility]HomeTouch #50 ea 06/02/21 03/24/22 Rx Verio test strips) blood-glucose meter ([facility] #1 ea 06/02/21 03/24/22 Rx Verio Meter) lancets 33 gauge (OneTouch Delica #100 ea 06/02/21 03/24/22 Rx Lancets) ferrous sulfate 325 mg (65 mg 325 mg PO BID 09/02/21 04/20/22 History iron) tablet (Iron (ferrous sulfate)) tiotropium 2.5 mcg-olodaterol 2.5 2 spray INHALATION QAM 09/02/21 04/20/22 History mcg/actuation mist for inhalation (Stiolto Respimat) diltiazem HCl 120 mg 120 mg PO DAILY 01/12/22 04/20/22 History capsule,extended release 24 hr azithromycin 250 mg tablet 250 mg PO QAM #3 tab 03/12/22 04/20/22 Rx cyanocobalamin (vitamin B-12) 1,000 mcg PO DAILY #30 cap 03/12/22 04/20/22 Rx 1,000 mcg capsule guaifenesin 600 mg tablet, 1,200 mg PO BID #28 tab 03/12/22 04/20/22 Rx extended release 12 hr (Mucinex) prednisone 10 mg tablet 40 mg PO DAILY #14 tab 03/12/22 04/20/22 Rx benzonatate 100 mg capsule 100 - 200 mg PO TID PRN #30 cap 03/24/22 04/20/22 Rx folic acid 1 mg tablet 1 mg PO QAM 03/24/22 04/20/22 History losartan 50 mg tablet 50 mg PO QAM 03/24/22 04/20/22 History Past Med/Surg History Medical History (Updated 04/21/22 @ 04:24 by Danie Mckay MD) AAA (abdominal aortic aneurysm) Acute hypotension Acute UTI Chronic low back pain Chronic pain syndrome Diabetes type 2, uncontrolled Diaphragmatic hernia (10/31/11) History of knee replacement Left peroneal nerve palsy Respiratory failure Syncope Surgical History H/O Achilles tendon repair (~2007) H/O: hysterectomy History of appendectomy History of bilateral oophorectomies History of lithotripsy (~2007) Hx of cholecystectomy Family History Other Family history non-contributory Social History Smoking Status: Current every day smoker Tobacco Type: Cigarettes Cigarettes Per Day: half pack; Second Hand Exposure: No; Hx Alcohol Use: No Hx Substance Use: No Preferred Language: Kittitian Communication Ability: Effective 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 Beliefs That Will Affect Care: None marital status: Current Living Situation: Spouse How many Children do You have: 3 Other Information That Helps Us Care for You: No Feels Safe at Home: Yes Assistive Devices: Walker Review of Systems Review of Systems: The patient denies palpitations, sore throat, fevers, chills, sweats, nausea, vomiting, diarrhea , constipation, abdominal pain, pelvic pain, blood in urine or stool, dysuria, urinary frequency or urgency, lightheadedness, dizziness, headache, memory loss, loss of consciousness, rash, abnormal bruising or bleeding, imbalance, focal weakness, numbness or tingling in arms, or night sweats. The review of systems is otherwise negative other than for that already noted above, and at least 10 systems have been reviewed. Physical Exam Physical Exam: The patient is awake, alert and oriented 3, well developed and well nourished, normocephalic and atraumatic, lying in bed and in no acute distress. HEENT--PERRL, EOMI, mucous membranes and oropharynx normal Neck--supple. No JVD. No bruits. Thyroid normal, trachea midline, no adenopathy. Heart--normal S1 and S2. No murmurs, rubs or gallops. Lungs--few coarse breath sounds bilaterally. No respiratory distress, no accessory muscle use. Abdomen--normal bowel sounds and soft. Nontender. Nondistended, no hernias or masses, no organomegaly. Extremities--no cyanosis or clubbing. No edema. Dermatologic--normal skin turgor, normal color, no abnormal lymph nodes, no rash. Neurologic--cranial nerves II through XII grossly intact. Rheumatologic--limited exam due to pain all over Psychiatric--normal affect. Results & Data Results & Data ([facility]) Vital Signs (Past 12 Hours) Vital Signs Temp Pulse Resp BP Pulse Ox 04/20/22 19:30 95 H 31 H 163/91 H 93 04/20/22 19:00 89 21 128/76 94 04/20/22 18:30 83 29 H 145/72 H 94 04/20/22 17:34 97 04/20/22 17:06 37.6 C H 83 19 162/76 H 95 04/20/22 17:04 95 Laboratory Results Laboratory Results WBC 7.34 K/uL (4.8-10.8) 04/20/22 17:05 RBC 4.21 M/uL (4.2-5.4) 04/20/22 17:05 Hgb 10.7 g/dL (12.0-16.0) L 04/20/22 17:05 Hct 36.6 % (37-47) L 04/20/22 17:05 MCV 86.9 fL (80-100) 04/20/22 17:05 MCH 25.4 pg (25-34) 04/20/22 17:05 MCHC 29.2 g/dL (32-36) L 04/20/22 17:05 RDW Std Deviation 57.5 fL (36.4-46.3) H 04/20/22 17:05 RDW Coeff of Dorcas 18.2 % (11.5-14.5) H 04/20/22 17:05 Plt Count 529 K/uL (130-400) H 04/20/22 17:05 MPV 9.8 fL (7.4-10.4) 04/20/22 17:05 Immature Gran % (Auto) 0.7 % 04/20/22 17:05 Neut % (Auto) 67.3 % 04/20/22 17:05 Lymph % (Auto) 22.9 % 04/20/22 17:05 [place] % (Auto) 7.5 % 04/20/22 17:05 Eos % (Auto) 1.2 % 04/20/22 17:05 Baso % (Auto) 0.4 % 04/20/22 17:05 Neut # (Auto) 4.94 K/uL (1.4-6.5) 04/20/22 17:05 Lymph # (Auto) 1.68 K/uL (1.2-3.4) 04/20/22 17:05 [place] # (Auto) 0.55 K/uL (0.11-0.59) 04/20/22 17:05 Eos # (Auto) 0.09 K/uL (0-0.5) 04/20/22 17:05 Baso # (Auto) 0.03 K/uL (0-0.2) 04/20/22 17:05 Immature Gran # (Auto) 0.05 K/uL (0.00-0.02) H 04/20/22 17:05 PT 10.9 Seconds (9.0-12.0) 04/20/22 17:05 INR 1.0 (0.9-1.1) 04/20/22 17:05 APTT 28.2 Seconds (21.0-31.0) 04/20/22 17:05 PTT Ratio 1.0 04/20/22 17:05 Sodium 140 mmol/L (136-145) 04/20/22 17:05 Potassium 3.6 mmol/L (3.5-5.1) 04/20/22 17:05 Chloride 105 mmol/L (98-107) 04/20/22 17:05 Carbon Dioxide 27 mmol/L (21-32) 04/20/22 17:05 Anion Gap 8 (3-11) 04/20/22 17:05 BUN 10 mg/dl (6-23) 04/20/22 17:05 Creatinine 0.74 mg/dl (0.6-1.2) 04/20/22 17:05 Est Cr Clr Drug Dosing 58.5 ml/min 04/20/22 17:05 Est GFR ( Amer) 95.1 ml/min 04/20/22 17:05 Est GFR (Non-Af Amer) 82.1 ml/min 04/20/22 17:05 BUN/Creatinine Ratio 13.5 (10-20) 04/20/22 17:05 Glucose 165 mg/dl (70-99(Fasting)) H 04/20/22 17:05 POC Glucose 302 mg/dl (70-99) H* 04/20/22 23:18 Lactate 1.1 mmol/L (0.4-2.0) 04/20/22 17:45 Calcium 9.1 mg/dl (8.5-10.1) 04/20/22 17:05 Magnesium 1.6 mg/dl (1.7-2.4) L 04/20/22 17:05 Total Bilirubin 0.2 mg/dl (0.2-1.0) 04/20/22 17:05 AST 10 U/L (13-39) L 04/20/22 17:05 ALT 9 U/L (7-52) 04/20/22 17:05 Alkaline Phosphatase 83 U/L (34-104) 04/20/22 17:05 Troponin I High Sens 4.4 pg/ml (0-14) 04/20/22 17:05 Total Protein 6.3 gm/dl (6.0-8.3) 04/20/22 17:05 Albumin 3.7 gm/dl (3.4-5.0) 04/20/22 17:05 Globulin 2.6 gm/dl (2.5-4.0) 04/20/22 17:05 Albumin/Globulin Ratio 1.4 (0.9-2) 04/20/22 17:05 Urine Color Yellow 04/20/22 18:00 Urine Appearance Clear (Clear) 04/20/22 18:00 Urine pH 6.5 (4.5-7.5) 04/20/22 18:00 Ur Specific [place] 1.029 (1.000-1.030) 04/20/22 18:00 Urine Protein 2+ (Negative) H 04/20/22 18:00 Urine Glucose (UA) 3+ (Negative) H 04/20/22 18:00 Urine Ketones Negative (Negative) 04/20/22 18:00 Urine Blood Negative (Negative) 04/20/22 18:00 Urine Nitrite Positive (Negative) A 04/20/22 18:00 Urine Bilirubin Negative (Negative) 04/20/22 18:00 Urine Urobilinogen Negative (Negative) 04/20/22 18:00 Ur Leukocyte Esterase Negative (Negative) 04/20/22 18:00 Urine WBC (Auto) >30 /hpf (0-5) H 04/20/22 18:00 Urine RBC (Auto) 0-4 /hpf (0-4) 04/20/22 18:00 U Hyaline Cast (Auto) 0 /lpf (0-5) 04/20/22 18:00 U Epithel Cells (Auto) >30 /lpf (0-5) H 04/20/22 18:00 Urine Bacteria (Auto) 4+ (Negative) H 04/20/22 18:00 Adenovirus (PCR) Not Detected (NotDetected) 04/20/22 17:35 B. pertussis DNA (PCR) Not Detected (NotDetected) 04/20/22 17:35 B.parapertussis DNA PCR Not Detected (NotDetected) 04/20/22 17:35 C. pneumoniae DNA (PCR) Not Detected (NotDetected) 04/20/22 17:35 Coronavirus OC43 (PCR) Not Detected (NotDetected) 04/20/22 17:35 Coronavirus HKU1 (PCR) Not Detected (NotDetected) 04/20/22 17:35 Coronavirus 229E (PCR) Not Detected (NotDetected) 04/20/22 17:35 SARS-CoV-2 (PCR) Not Detected (NotDetected) 04/20/22 17:35 Coronavirus NL63 (PCR) Not Detected (NotDetected) 04/20/22 17:35 Human Metapneumovir PCR Not Detected (NotDetected) 04/20/22 17:35 Influenza Type A (PCR) Not Detected (NotDetected) 04/20/22 17:35 Influenza Type B (PCR) Not Detected (NotDetected) 04/20/22 17:35 M. pneumoniae (PCR) Not Detected (NotDetected) 04/20/22 17:35 Parainfluenza 1 (PCR) Not Detected (NotDetected) 04/20/22 17:35 Parainfluenza 2 (PCR) Not Detected (NotDetected) 04/20/22 17:35 Parainfluenza 3 (PCR) Not Detected (NotDetected) 04/20/22 17:35 Parainfluenza 4 (PCR) Not Detected (NotDetected) 04/20/22 17:35 RSV (PCR) Not Detected (NotDetected) 04/20/22 17:35 Entero/Rhino (PCR) Not Detected (NotDetected) 04/20/22 17:[address] 04/20/22 17:[address] DOSE: 537.48 mGy.cm HISTORY: lightheaded, weak TECHNIQUE: Multiaxial CT images of the head were performed without the use of intravenous contrast. Automated exposure control was utilized for this study. A dose lowering technique was utilized adhering to the principles of ALARA. Comparison: None. Findings: The paranasal sinuses and mastoid air cells are clear. The calvarium and skull base are intact. The ventricles and sulci are within normal limits. There is no mass, hematoma, midline shift, or acute infarct. Bilateral basal ganglia calcifications are again noted. A few patchy areas of hypodensity within the periventricular white matter remains unchanged and favor microvascular ischemic change. Impression: No significant change compared to the prior study. No acute intracranial abnormality. ACT 112: Negative or not required by law. Electronically signed by: Wicho Gutierrez M.D. 04/20/2022 5:57 PM Chest X-Ray 04/20/22 17:20 XR chest 1V portable HISTORY: Shortness of breath. COMPARISON: Chest 03/24/2022. FINDINGS: The heart is normal in size. Calcified plaque within the aortic arch again noted. No pleural effusions. No pneumothorax. Calcified granulomas again noted within the right lung base. No new focal lung consolidations to suggest pneumonia. No evidence for pulmonary edema. IMPRESSION: No significant change compared to the prior study. No acute process. ACT 112: Negative or not required by law. Electronically signed by: Wicho Gutierrez M.D. 04/20/2022 5:59 PM Code Status & VTE Plan Code Status Full code VTE Prophylaxis Plan VTE Prophylaxis will be ordered: Yes PG Care Time/CCT Total # of Minutes Spent Total Time Spent with Patient: Total time spent is greater than 50% in coordination of care (as documented) at patient's floor/unit and/or counseling patient: Coding Level of Care Code 75834 Initial Inpt Care Lvl 3 Diagnoses COPD exacerbation J44.1 Hypomagnesemia E83.42 Hyperlipidemia E78.5 HTN (hypertension) I10 Chronic pain syndrome G89.4 Diabetes type 2, uncontrolled E11.65 Glycemic state: with hyperglycemia Acute on chronic respiratory failure with hypoxia J96.21 (1) Diabetes type 2, uncontrolled Glycemic state: with hyperglycemia Qualified Code(s): E11.65 - Type 2 diabetes mellitus with hyperglycemia
[2022-04-20] MEDS ORDERED: oxyCODONE HCL IR 5 MG TAB (IMMEDIATE RELEASE) PO PRN (22:02)
[2022-04-20] MEDS ORDERED: GLUCAGON FOR INJ 1 MG VIAL SQ PRN (22:02)
[2022-04-20] MEDS ORDERED: DEXTROSE 50% 50 ML SYRINGE IV PRN (22:02)
[2022-04-20] MEDS ORDERED: ONDANSETRON INJ 2 MG/ML 2 ML VIAL IV PRN (22:02)
[2022-04-20] MEDS ORDERED: GLUCOSE 10 TABS/TUBE PO PRN (22:02)
[2022-04-20] MEDS ORDERED: GLUCOSE 40% GEL 15 GM TUBE PO PRN (22:02)
[2022-04-20] MEDS ORDERED: ACETAMINOPHEN 325 MG TAB PO PRN (22:02)
[2022-04-20] MEDS ORDERED: BENZONATATE 100 MG CAPSULE PO PRN (22:02)
[2022-04-20] MEDS ORDERED: CARBOHYDRATES FOR HYPOGLYCEMIA PO PRN (22:02)
[2022-04-20] MEDS: ALBUT/IPRATROP 3MG/0.5MG NEB 3 ML VIAL INH SCH (22:45)
[2022-04-20] MEDS: BUDESONIDE 0.5 MG/2 ML VIAL (PULMICORT) INH SCH (22:45)
[2022-04-20] MEDS: ENOXAPARIN INJ 30 MG/0.3 ML SYR SQ SCH (23:28)
[2022-04-20] MEDS: guaiFENesin 600 MG TABCR PO SCH (23:29)
[2022-04-20] MEDS: carvediloL 12.5 MG TAB PO SCH (23:29)
[2022-04-20] MEDS: metFORMIN HCL 500 MG TAB PO SCH (23:30)
[2022-04-20] MEDS: FERROUS SULFATE 325 MG TAB PO SCH (23:30)
[2022-04-20] MEDS: INSULIN ASPART PER UNIT SC SCH (23:31)
[2022-04-20] MEDS: methylPREDNISolone 40 MG in SYRINGE 0 ML IV SCH (23:31)
[2022-04-21] MEDS ORDERED: MAGNESIUM SULFATE / D5W 1 GM/100 ML BAG IV ONE (04:25)
[2022-04-21] MEDS: ALBUT/IPRATROP 3MG/0.5MG NEB 3 ML VIAL INH SCH ×4 (07:27→19:37)
[2022-04-21] MEDS: BUDESONIDE 0.5 MG/2 ML VIAL (PULMICORT) INH SCH ×2 (07:27→19:37)
[2022-04-21] MEDS ORDERED: PHARMACY GLYCEMIC MGMT CONSULT PRN (07:34)
[2022-04-21 07:54] LABS: Albumin Level 3.6 gm/dl (3.4-5.0); BUN Creatinine Ratio 16.3 (10-20); Calcium 9.3 mg/dl (8.5-10.1); Creatinine Clr Calc Pharmacy 50.4 ml/min; Est GFR (African American) 79.3 ml/min; Est GFR (Non-African American) 68.4 ml/min; Magnesium 2.3 mg/dl (1.7-2.4); Phosphorus 5.5 mg/dl (2.5-4.9); Potassium 4.6 mmol/L (3.5-5.1)
[2022-04-21] MEDS: LOSARTAN POTASSIUM 50 MG TAB PO SCH (08:52)
[2022-04-21] MEDS: ASPIRIN 81 MG ECTAB PO SCH (08:52)
[2022-04-21] MEDS: metFORMIN HCL 500 MG TAB PO SCH ×2 (08:52→17:26)
[2022-04-21] MEDS: guaiFENesin 600 MG TABCR PO SCH ×2 (08:52→20:30)
[2022-04-21] MEDS: FOLIC ACID 1 MG TAB PO SCH (08:52)
[2022-04-21] MEDS: methylPREDNISolone 40 MG in SYRINGE 0 ML IV SCH (08:52)
[2022-04-21] MEDS: carvediloL 12.5 MG TAB PO SCH ×2 (08:52→17:25)
[2022-04-21] MEDS: ATORVASTATIN 40 MG TAB PO SCH (08:52)
[2022-04-21] MEDS: FERROUS SULFATE 325 MG TAB PO SCH ×2 (08:52→20:30)
[2022-04-21] MEDS: dilTIAZem HCL 120 MG CAPCR PO SCH (08:53)
[2022-04-21] MEDS: CYANOCOBALAMIN (B-12) 500 MCG TABLET PO SCH (08:53)
[2022-04-21] MEDS: INSULIN ASPART PER UNIT SC SCH ×4 (08:54→20:35)
[2022-04-21] MEDS: INSULIN GLARGINE SOLOSTAR 100 UNITS/ML 3 ML PEN SC SCH ×2 (08:58→20:34)
[2022-04-21] MEDS ORDERED: AZITHROMYCIN 500 MG in DEXTROSE 5% 250 ML IV SCH (09:00)
[2022-04-21] MEDS ORDERED: predniSONE 20 MG TAB PO SCH (09:00)
--- NOTE | 2022-04-21 10:23 | Pharmacy Report ---
Pharmacy Glycemic Short Note 2 - Date of Service April 21, 2022 - Glycemic Short BSG Results (Last 24 hours): 04/20/22 04/20/22 04/21/22 17:05 23:18 06:25 Glucose 165 H 200 H POC Glucose 302 H* 04/21/22 07:23 Glucose POC Glucose 198 H OUTPATIENT ANTIDIABETIC REGIMEN: * Jardiance 10 mg PO qAM * Metformin 1 gm PO BID * HbA1c: 8.0% (01/14/22) -- updated A1c pending ASSESSMENT: * Ms Gandara is a 72yo diabetic F admitted with acute on chronic resp failure w/ hypoxia. * She is currently receiving IV SoluMedrol 40mg q8h, which is expected to contribute to significant steroid-induced hyperglycemia. * Pt is receiving IV abx for pulm coverage. * She is ordered a diabetic diet. * Pt initiated on SQ basal/bolus insulin. Will monitor and adjust as required. * Anticipate that insulin needs will decrease as steroid tapers. Will need to adjust regimen accordingly to prevent hypoglycemia. PLAN FOR INPATIENT GLYCEMIC CONTROL: * Metformin 1gm PO BID with meals * Basal insulin * Lantus 10 units SQ BID * Bolus insulin * NovoLog per scale ACHS or Q6hrs while NPO * Goal Range: Low 110 mg/dL - High 140 mg/dL * Correction Factor: 25 mg/dL/unit * Nutritional / Prandial insulin per carb ratio of 1 unit per 9 grams CHO consumed
[2022-04-21] MEDS: oxyCODONE HCL IR 5 MG TAB (IMMEDIATE RELEASE) PO PRN ×3 (11:27→23:26)
--- NOTE | 2022-04-21 13:43 | Electrocardiogram Report ---
Test Reason : Blood Pressure : / mmHG Vent. Rate : 076 BPM Atrial Rate : 076 BPM P-R Int : 152 ms QRS Dur : 090 ms QT Int : 406 ms P-R-T Axes : 067 004 071 degrees QTc Int : 456 ms Normal sinus rhythm od Inferior infarct (cited on or before 24-MAR-2022) Abnormal ECG When compared with ECG of 24-MAR-2022 18:15, No significant change was found Confirmed by Trey Sterling ([id number]) on 04/21/2022 1:43:16 PM Referred By: REFERRED SELF Confirmed By:Trey Sterling
[2022-04-21] MEDS: cefTRIAXone SODIUM 1,000 MG in DEXTROSE 5% 50 ML IV SCH (18:04)
--- NOTE | 2022-04-21 20:27 | Hospitalist Progress Note ---
Date of Service April 21, 2022 Assessment & Plan (1) UTI (urinary tract infection): Plan: Her clinical picture is similar to that in June 2021 when she was diagnosed with UTI sepsis although she does not appear as severe (she required ICU admission at that time) Given her chronic overall I cannot illicit CVA tenderness from tenderness everywhere but I suspect given significantly elevated procalcitonin this is more pyelonephritis than a simple cystitis and will require more like 2 weeks of antibiotics (will repeat procalcitonin closer to discharge to help with this decision) Urine culture growing GNB - awaiting final culture and sensitivities. Ceftriaxone will cover her historical bacterial urine cultures. (2) Acute on chronic respiratory failure with hypoxia: Plan: Acute on chronic respiratory failure with hypoxia/COPD exacerbation- Duonebs every 4 hours while awake and every 2 hours when necessary. Guaifenesin extended release 12 mg p.o. twice daily Nasal cannula oxygen, titrate to keep pulse ox around 88-92% (3) COPD exacerbation: Plan: Different history from patient today as she reports she is at her baseline shortness of breath and cough is chronic however she has had improvement from duonebs and concern for worsening shortness of breath and cough on admission therefore reasonable to keep short course of steroids going however no wheezing on admission exam or exam today. Stop Solu-Medrol. Start prednisone 40mg PO daily for 3-5 days depending on clinical course. Continue duonebs QID Azithromycin 500mg PO daily for 3 days. (4) Diabetes type 2, uncontrolled: Plan: Hold Jardiance. Continue metformin HbA1C pending (8.0 in Dec) Consult pharmacy for glycemic control with basal bolus insulin as glucose uncontrolled with current steroids. (5) Hypomagnesemia: Plan: Resolved with supplementation (6) Hyperlipidemia: Plan: Continue atorvastatin 40 mg every morning (7) HTN (hypertension): Plan: Continue aspirin, carvedilol, diltiazem and losartan (8) Chronic pain syndrome: Plan: Patient complains of pain all over. Acetaminophen 650 mg p.o. every 6 hours as needed for mild pain or fever Continue her usual oxycodone 5 mg p.o. q6h PRN (maximum 15mg PO daily) Plan: VTE Prophylaxis - Lovenox 30mg SQ daily Diet - heart healthy, T2DM, easy to chew Disposition - continued admission on med/tele pending clinical improvement Admission and Anticipated Discharge Date Admission Date: April 20, 2022 Subjective Reports ongoing pain all over her body. Legs, back, chest, headache. No urinary Sx. No diarrhea. She reports having a chronic cough which is currently no worse than usual and her shortness of breath is at baseline however she does note singificant improvement with duonebs. No fever or chills. She is mainly concerned about her pain and requesting increased pain medication. Review of Systems Review of Systems: All systems reviewed & are unremarkable except as noted in Subjective Physical Exam Constitutional: well developed and + acute distress (pain everywhere); + not well nourished Eyes: + anicteric sclerae; normal pupil size Respiratory: normal respiratory effort, lungs clear to auscultation Cardiovascular: RRR, no murmur, no edema Chest (Breasts): Chest: normal inspection of chest (pain on palpation throughout) Gastrointestinal (Abdomen): Inspection/Auscultation: normal bowel sounds; abdomen not distended Percussion/Palpation: + abdomen tender (throughout) and abdomen soft; no guarding and abdomen not rigid Musculoskeletal: no cyanosis or clubbing, extremities motor strength 5/5 Spine: + paraspinal tenderness (throughout cervical to lumbar spine) Psychiatric: Orientation: alert and oriented x 3 Affect: + depressed affect Genitourinary: + CVA tenderness (bilateral) Results & Data Results & Data ([facility]) Vital Signs (Past 12 Hours) Vital Signs Temp Pulse Pulse Resp BP Pulse Ox 04/21/22 19:37 76 20 94 04/21/22 18:27 36.7 C 76 18 125/70 95 04/21/22 16:40 82 113/52 L 04/21/22 16:05 70 04/21/22 15:35 36.7 C 67 16 92/45 L 97 04/21/22 15:04 71 18 94 04/21/22 11:45 36.8 C 68 18 126/68 95 04/21/22 11:24 77 16 96 PG Care Time/CCT Total # of Minutes Spent Total Time Spent with Patient: Total time spent is greater than 50% in coordination of care (as documented) at patient's floor/unit and/or counseling patient: Coding Level of Care Code 35155 Subseq Hosp Care Lvl 2 Diagnoses Acute on chronic respiratory failure with hypoxia J96.21 COPD exacerbation J44.1 Diabetes type 2, uncontrolled E11.65 Glycemic state: with hyperglycemia Hypomagnesemia E83.42 Hyperlipidemia E78.5 HTN (hypertension) I10 Chronic pain syndrome G89.4 UTI (urinary tract infection) N39.0 (1) Diabetes type 2, uncontrolled Glycemic state: with hyperglycemia Qualified Code(s): E11.65 - Type 2 diabetes mellitus with hyperglycemia
[2022-04-21] MEDS: ENOXAPARIN INJ 30 MG/0.3 ML SYR SQ SCH (20:31)
[2022-04-22] MEDS: oxyCODONE HCL IR 5 MG TAB (IMMEDIATE RELEASE) PO PRN ×3 (06:21→18:07)
[2022-04-22 06:26] LABS: Basophils # (auto) 0.01 K/uL (0-0.2); Basophils % (auto) 0.1 %; Hematocrit (blood only) 33.9 % (37-47); Hemoglobin 10.3 g/dL (12.0-16.0); Immature Granulocytes # (auto) 0.08 K/uL (0.00-0.02); Immature Granulocytes % (auto) 0.5 %; Lymphocytes # (auto) 1.46 K/uL (1.2-3.4); Mean Corpuscular Hgb Conc 30.4 g/dL (32-36); Mean Corpuscular Volume 88.7 fL (80-100); Mean Platelet Volume 9.6 fL (7.4-10.4); Monocytes % (auto) 5.6 %; Neutrophils # (auto) 13.69 K/uL (1.4-6.5); Neutrophils % (auto) 84.8 %; Platelet Count 538 K/uL (130-400); RDW Coefficient of Variation 18.3 % (11.5-14.5); Red Blood Count 3.82 M/uL (4.2-5.4); White Blood Count 16.14 K/uL (4.8-10.8)
[2022-04-22 06:57] LABS: Albumin Level 3.4 gm/dl (3.4-5.0); BUN Creatinine Ratio 25.8 (10-20); Calcium 9.1 mg/dl (8.5-10.1); Creatinine Clr Calc Pharmacy 36.5 ml/min; Est GFR (Non-African American) 42.3 ml/min; Phosphorus 4.1 mg/dl (2.5-4.9); Potassium 5.3 mmol/L (3.5-5.1)
[2022-04-22] MEDS: BUDESONIDE 0.5 MG/2 ML VIAL (PULMICORT) INH SCH ×2 (07:21→19:09)
[2022-04-22] MEDS: ALBUT/IPRATROP 3MG/0.5MG NEB 3 ML VIAL INH SCH ×4 (07:21→19:09)
[2022-04-22] MEDS: FERROUS SULFATE 325 MG TAB PO SCH ×2 (07:40→21:26)
[2022-04-22] MEDS: guaiFENesin 600 MG TABCR PO SCH ×2 (07:40→21:25)
[2022-04-22] MEDS: AZITHROMYCIN 250 MG TAB PO SCH (07:40)
[2022-04-22] MEDS: metFORMIN HCL 500 MG TAB PO SCH (07:40)
[2022-04-22] MEDS: predniSONE 20 MG TAB PO SCH (07:40)
[2022-04-22] MEDS: dilTIAZem HCL 120 MG CAPCR PO SCH (07:41)
[2022-04-22] MEDS: FOLIC ACID 1 MG TAB PO SCH (07:41)
[2022-04-22] MEDS: carvediloL 12.5 MG TAB PO SCH ×2 (07:41→17:41)
[2022-04-22] MEDS: ATORVASTATIN 40 MG TAB PO SCH (07:41)
[2022-04-22] MEDS: LOSARTAN POTASSIUM 50 MG TAB PO SCH (07:41)
[2022-04-22] MEDS: ASPIRIN 81 MG ECTAB PO SCH (07:42)
[2022-04-22 08:02] LABS: Estimated Average Glucose 189 mg/dl; Hemoglobin A1C 8.2 % (4.5-5.6)
[2022-04-22] MEDS: INSULIN ASPART PER UNIT SC SCH ×4 (08:05→21:27)
[2022-04-22] MEDS: INSULIN GLARGINE SOLOSTAR 100 UNITS/ML 3 ML PEN SC SCH ×2 (08:05→21:27)
[2022-04-22] MEDS: LACTATED RINGER'S 1,000 ML IV SCH ×2 (08:19→16:46)
[2022-04-22] MEDS ORDERED: predniSONE 20 MG TAB PO SCH (09:00)
[2022-04-22] MEDS: CYANOCOBALAMIN (B-12) 500 MCG TABLET PO SCH (11:21)
--- NOTE | 2022-04-22 12:14 | Pharmacy Report ---
Pharmacy Glycemic Short Note 2 - Date of Service April 22, 2022 - Glycemic Short BSG Results (Last 24 hours): 04/21/22 04/21/22 04/22/22 16:43 20:30 05:40 Glucose 165 H POC Glucose 220 H 218 H 04/22/22 04/22/22 07:30 11:24 Glucose POC Glucose 164 H 160 H OUTPATIENT ANTIDIABETIC REGIMEN: * Jardiance 10 mg PO qAM * Metformin 1 gm PO BID * HbA1c: 8.2% (04/21/22) ASSESSMENT: 04/22/22 * Patient transitioned from IV Solu-Medrol to prednisone 40mg PO daily today * Fasting 164mg/dl, continue Lantus * Blood sugars rising throughout the day yesterday, tighten CF/CR * May need to loosen as steroids tapered down 04/21/22 * Ms Gandara is a 72yo diabetic F admitted with acute on chronic resp failure w/ hypoxia. * She is currently receiving IV SoluMedrol 40mg q8h, which is expected to contribute to significant steroid-induced hyperglycemia. * Pt is receiving IV abx for pulm coverage. * She is ordered a diabetic diet. * Pt initiated on SQ basal/bolus insulin. Will monitor and adjust as required. * Anticipate that insulin needs will decrease as steroid tapers. Will need to adjust regimen accordingly to prevent hypoglycemia. PLAN FOR INPATIENT GLYCEMIC CONTROL: * Metformin 1gm PO BID with meals * Basal insulin * Lantus 10 units SQ BID * Bolus insulin * NovoLog per scale ACHS or Q6hrs while NPO * Goal Range: Low 110 mg/dL - High 140 mg/dL * Correction Factor: 20 mg/dL/unit * Nutritional / Prandial insulin per carb ratio of 1 unit per 7 grams CHO consumed
--- NOTE | 2022-04-22 14:21 | Hospitalist Progress Note ---
Date of Service April 22, 2022 Assessment & Plan (1) UTI (urinary tract infection): Plan: Her clinical picture is similar to that in June 2021 when she was diagnosed with UTI sepsis although she does not appear as severe (she required ICU admission at that time) Given her chronic overall I cannot illicit CVA tenderness from tenderness everywhere but I suspect given significantly elevated procalcitonin this is more pyelonephritis than a simple cystitis and will require more like 2 weeks of antibiotics (will repeat procalcitonin closer to discharge to help with this decision) Urine culture growing serratia marcescens - continue on ceftriaxone pending improvement in her Cr (2) Acute on chronic respiratory failure with hypoxia: Plan: Acute on chronic respiratory failure with hypoxia/COPD exacerbation- Duonebs every 4 hours while awake and every 2 hours when necessary. Guaifenesin extended release 12 mg p.o. twice daily Nasal cannula oxygen, titrate to keep pulse ox around 88-92%, on her baseline oxygen since yesterday (3) COPD exacerbation: Plan: History from patient different to admission. Appears mostly resolved at this point. Stop Solu-Medrol. Start prednisone 40mg PO daily for 3-5 days total steroids depending on clinical course. Continue duonebs QID Continue azithromycin 500mg PO daily for 3 days. (4) Diabetes type 2, uncontrolled: Plan: Hold Jardiance. Continue metformin HbA1C pending (8.0 in Dec) Consult pharmacy for glycemic control with basal bolus insulin as glucose uncontrolled with current steroids. (5) Hypomagnesemia: Plan: Resolved with supplementation (6) Hyperlipidemia: Plan: Continue atorvastatin 40 mg every morning (7) HTN (hypertension): Plan: Continue aspirin, carvedilol, diltiazem and losartan (8) Chronic pain syndrome: Plan: Improved acute pain - suspect generalized myalgias secondary to UTI Acetaminophen 650 mg p.o. every 6 hours as needed for mild pain or fever Continue her usual oxycodone 5 mg p.o. q6h PRN (maximum 15mg PO daily) Plan: VTE Prophylaxis - Lovenox 30mg SQ daily Diet - heart healthy, T2DM, easy to chew Disposition - stable for transfer to med/surg, suspect she can go home tomorrow pending Cr improvement Admission and Anticipated Discharge Date Admission Date: April 20, 2022 Subjective Patient feeling much improved, still having some of her chronic back pain. Acute pain resolved and she is asking about discharge as her is chronically unwell. Cr increased from 0.86 to 1.28 today - she reports not eating or drinking much yesterday due to the pain. Review of Systems Review of Systems: All systems reviewed & are unremarkable except as noted in Subjective Physical Exam Constitutional: well developed; + not well nourished and no acute distress Eyes: + anicteric sclerae; normal pupil size Respiratory: normal respiratory effort, lungs clear to auscultation Cardiovascular: RRR, no murmur, no edema Chest (Breasts): Chest: normal inspection of chest Gastrointestinal (Abdomen): Inspection/Auscultation: normal bowel sounds; abdomen not distended Percussion/Palpation: abdomen soft; abdomen nontender, no guarding and abdomen not rigid Musculoskeletal: no cyanosis or clubbing, extremities motor strength 5/5 Spine: + paraspinal tenderness (throughout cervical to lumbar spine) Psychiatric: Orientation: alert and oriented x 3 Affect: euthymic affect Genitourinary: + CVA tenderness (bilateral) Results & Data Results & Data ([facility]) Vital Signs (Past 12 Hours) Vital Signs Temp Pulse Pulse Resp BP Pulse Ox 04/22/22 11:00 36.9 C 68 16 117/60 97 04/22/22 10:33 75 18 96 04/22/22 07:33 90 20 92 04/22/22 07:00 69 04/22/22 06:25 37.0 C 72 18 124/64 99 04/22/22 03:19 36.9 C 72 16 132/62 97 PG Care Time/CCT Total # of Minutes Spent Total Time Spent with Patient: Total time spent is greater than 50% in coordination of care (as documented) at patient's floor/unit and/or counseling patient: Coding Level of Care Code 06080 Subseq Hosp Care Lvl 2 Diagnoses UTI (urinary tract infection) N39.0 Acute on chronic respiratory failure with hypoxia J96.21 COPD exacerbation J44.1 Diabetes type 2, uncontrolled E1165 Glycemic state: with hyperglycemia Hypomagnesemia E83.42 Hyperlipidemia E78.5 HTN (hypertension) I10 Chronic pain syndrome G89.4 (1) Diabetes type 2, uncontrolled Glycemic state: with hyperglycemia Qualified Code(s): E11.65 - Type 2 diabetes mellitus with hyperglycemia
[2022-04-22] MEDS: cefTRIAXone SODIUM 1,000 MG in DEXTROSE 5% 50 ML IV SCH (21:12)
[2022-04-22] MEDS: ENOXAPARIN INJ 30 MG/0.3 ML SYR SQ SCH (21:26)
[2022-04-23] MEDS: oxyCODONE HCL IR 5 MG TAB (IMMEDIATE RELEASE) PO PRN ×3 (00:50→13:01)
[2022-04-23] MEDS ORDERED: INSULIN ASPART PER UNIT SC ONE (04:45)
[2022-04-23] MEDS: ALBUT/IPRATROP 3MG/0.5MG NEB 3 ML VIAL INH SCH ×2 (07:09→10:32)
[2022-04-23] MEDS: BUDESONIDE 0.5 MG/2 ML VIAL (PULMICORT) INH SCH (07:10)
[2022-04-23 07:16] LABS: Basophils # (auto) 0.01 K/uL (0-0.2); Basophils % (auto) 0.1 %; Eosinophils # (auto) 0.02 K/uL (0-0.5); Eosinophils % (auto) 0.2 %; Hematocrit (blood only) 32.5 % (37-47); Hemoglobin 9.8 g/dL (12.0-16.0); Immature Granulocytes # (auto) 0.07 K/uL (0.00-0.02); Immature Granulocytes % (auto) 0.6 %; Lymphocytes # (auto) 1.97 K/uL (1.2-3.4); Mean Corpuscular Hemoglobin 26.4 pg (25-34); Mean Corpuscular Hgb Conc 30.2 g/dL (32-36); Mean Corpuscular Volume 87.6 fL (80-100); Mean Platelet Volume 9.3 fL (7.4-10.4); Monocytes % (auto) 9.1 %; Neutrophils # (auto) 7.89 K/uL (1.4-6.5); Platelet Count 493 K/uL (130-400); RDW Standard Deviation 57.5 fL (36.4-46.3); Red Blood Count 3.71 M/uL (4.2-5.4); White Blood Count 10.96 K/uL (4.8-10.8)
[2022-04-23 07:51] LABS: Albumin Level 3.2 gm/dl (3.4-5.0); BUN Creatinine Ratio 33.3 (10-20); Calcium 9.2 mg/dl (8.5-10.1); Est GFR (African American) 75.1 ml/min; Est GFR (Non-African American) 64.8 ml/min; Magnesium 1.6 mg/dl (1.7-2.4); Phosphorus 3.1 mg/dl (2.5-4.9); Potassium 4.4 mmol/L (3.5-5.1)
[2022-04-23] MEDS: guaiFENesin 600 MG TABCR PO SCH (08:15)
[2022-04-23] MEDS: FERROUS SULFATE 325 MG TAB PO SCH (08:15)
[2022-04-23] MEDS: predniSONE 20 MG TAB PO SCH (08:16)
[2022-04-23] MEDS: dilTIAZem HCL 120 MG CAPCR PO SCH (08:16)
[2022-04-23] MEDS: carvediloL 12.5 MG TAB PO SCH (08:16)
[2022-04-23] MEDS: AZITHROMYCIN 250 MG TAB PO SCH (08:17)
[2022-04-23] MEDS: ATORVASTATIN 40 MG TAB PO SCH (08:17)
[2022-04-23] MEDS: ASPIRIN 81 MG ECTAB PO SCH (08:18)
[2022-04-23] MEDS: CYANOCOBALAMIN (B-12) 500 MCG TABLET PO SCH (08:18)
[2022-04-23] MEDS: FOLIC ACID 1 MG TAB PO SCH (08:18)
[2022-04-23] MEDS ORDERED: LOSARTAN POTASSIUM 50 MG TAB PO SCH (09:15)
[2022-04-23] MEDS ORDERED: UMECLIDINIUM/VILANTEROL 62.5/25MCG 7 PUFFS/INHALER INH SCH (09:15)
[2022-04-23] MEDS ORDERED: CYANOCOBALAMIN 1000 MCG/ML VIAL IM ONE (09:30)
[2022-04-23] MEDS: INSULIN GLARGINE SOLOSTAR 100 UNITS/ML 3 ML PEN SC SCH (09:38)
[2022-04-23] MEDS: INSULIN ASPART PER UNIT SC SCH ×2 (09:39→13:00)
--- NOTE | 2022-04-23 11:04 | Discharge Summary ---
Date of Service April 23, 2022 Admission HPI Per Admitting Provider The patient is a 72-year-old female with a past medical history including admissions for COPD exacerbation, urinary tract infection, anemia, B12 deficiency, hyperlipidemia, CKD, hypertension, AAA, diabetes mellitus, chronic generalized pain syndrome. Most recent admissions for similar symptoms: 07/29/2021-08/01/2021, 01/13-01/16/2022, and 03/10-03/12/2022. Principal Diagnosis UTI, possible pyelonephritis COPD exacerbation Discharge Exam Constitutional well developed; + not well nourished and no acute distress Eyes + anicteric sclerae; normal pupil size Respiratory normal respiratory effort, lungs clear to auscultation Cardiovascular RRR, no murmur, no edema Chest (Breasts) Chest: normal inspection of chest Gastrointestinal (Abdomen) Inspection/Auscultation: normal bowel sounds; abdomen not distended Percussion/Palpation: abdomen soft; abdomen nontender, no guarding and abdomen not rigid Musculoskeletal no cyanosis or clubbing, extremities motor strength 5/5 Spine: + paraspinal tenderness (throughout cervical to lumbar spine) Psychiatric Orientation: alert and oriented x 3 Affect: euthymic affect Genitourinary + CVA tenderness (bilateral) Discharge Data Allergies Allergy/AdvReac Type Severity Reaction Status Date / Time diflunisal Allergy Unknown HEART RACES Verified 04/20/22 17:57 Consultations 04/20/22 20:13 ED Decision to Admit Stat Ordered Studies 04/20/22 17:19 CT head/brain wo con Stat Hospital Course (1) UTI (urinary tract infection): You are admitted to [facility] from April 20 to 2021 due to generalized pain, shortness of breath, worsening cough, dizziness. He was diagnosed with acute on chronic respiratory failure due to COPD exacerbation and UTI. Urine culture grew a bacteria called Serratia which was pansensitive. You were initially treated with ceftriaxone (antibiotic) for this and will be switched to an equivalent oral antibiotic called cefdinir on discharge. Blood cultures were negative after 48 hours. Regarding a COPD exacerbation you were treated with a short course of prednisone however given quick resolution of the symptoms I do not suspect you need any further doses of this. Recommend continue inhaler Stiolto Respimat and nebulizers with Pulmicort and DuoNeb's at home. Please follow-up with your primary care physician. You are now back to your baseline oxygen. Recommend titrating your oxygen saturations of 88 to 92%. Your B12 level was rechecked from February and has improved however is still less than 400. 1 dose of intramuscular B12 injection was given during hospitalization. Please continue with oral supplementation on discharge. Regarding your diabetes - HbA1C 8.2. Given Jardiance can increase your risk of urinary infections and you have had two urinary infections causing hospitalization in the last year (one requiring ICU admission recommend discontinuing this medications and switching to glipizide on discharge. Of note this medication can drop you sugar levels too low and if you are feeling dizzy would recommend checking your glucose levels. Please follow up with your primary care physician regarding ongoing management of this. (2) Acute on chronic respiratory failure with hypoxia: (3) COPD exacerbation: (4) Diabetes type 2, uncontrolled: (5) Hypomagnesemia: (6) Hyperlipidemia: (7) HTN (hypertension): (8) Chronic pain syndrome: Total Time Total Time Spent Total Time Spent (In Minutes): 35 Discharge Plan Discharge Items Patient Disposition: Home - Home Health Services Reason For Visit: ACUTE ON CHRONIC RESPIRATORY FAILURE WITH HYPOXIA Discharge Diagnosis: UTI, possible kidney infection COPD exacerbation Condition on Discharge: Fair Activity: Resume your previous activity Non-emergency contact: Primary Care Provider Call non-emergency contact if: you have any medication questions and your symptoms worsen Follow-up/Referrals: Rosi Borges CRNP [Primary Care Provider] - 04/30/22 1:00 pm Diet: Carb Consistent or DM2 and Heart Healthy Diet Texture: Easy to Chew Addtl Attending Provider Instructions: You are admitted to [facility] from April 20 to 2021 due to generalized pain, shortness of breath, worsening cough, dizziness. He was diagnosed with acute on chronic respiratory failure due to COPD exacerbation and UTI. Urine culture grew a bacteria called Serratia which was pansensitive. You were initially treated with ceftriaxone (antibiotic) for this and will be switched to an equivalent oral antibiotic called cefdinir on discharge. Blood cultures were negative after 48 hours. Regarding a COPD exacerbation you were treated with a short course of prednisone however given quick resolution of the symptoms I do not suspect you need any further doses of this. Recommend continue inhaler Stiolto Respimat and nebulizers with Pulmicort and DuoNeb's at home. Please follow-up with your primary care physician. You are now back to your baseline oxygen. Recommend titrating your oxygen saturations of 88 to 92%. Your B12 level was rechecked from February and has improved however is still less than 400. 1 dose of intramuscular B12 injection was given during hospitalization. Please continue with oral supplementation on discharge. Regarding your diabetes - HbA1C 8.2. Given Jardiance can increase your risk of urinary infections and you have had two urinary infections causing hospitalizat ion in the last year (one requiring ICU admission recommend discontinuing this medications and switching to glipizide on discharge. Of note this medication can drop you sugar levels too low and if you are feeling dizzy would recommend checking your glucose levels. Please follow up with your primary care physician regarding ongoing management of this. Pending Studies at Discharge: No Stand-Alone Forms: My [employer], Smoking Cessation Medications and DC Order Prescriptions: New cefdinir 300 mg capsule 300 mg PO BID 11 Days Qty: 22 RF: 0 glipizide 2.5 mg tablet extended release 24 hr 2.5 mg PO DAILY Qty: 30 RF: 0 Continued ipratropium-albuterol 0.5 mg-3 mg(2.5 mg base)/3 mL solution for nebulization 3 ml INHALATION QID PRN (Reason: Shortness Of Breath Or Wheezing) RF: 0 atorvastatin [Lipitor] 40 mg tablet 40 mg PO QAM RF: 0 carvedilol [Coreg] 12.5 mg tablet 12.5 mg PO BID RF: 0 budesonide [Pulmicort] 0.5 mg/2 mL suspension for nebulization 0.5 mg inhalation BID RF: 0 aspirin [Aspirin Low Dose] 81 mg Tablet,Delayed Release (Dr/Ec) 81 mg PO QAM RF: 0 albuterol sulfate [Ventolin HFA] 90 mcg/actuation HFA aerosol inhaler 2 puff INHALATION Q6 PRN (Reason: Shortness Of Breath Or Wheezing) RF: 0 metformin 1,000 mg tablet 1,000 mg PO BID RF: 0 oxycodone [Roxicodone] 5 mg tablet 5 mg PO TID PRN (Reason: Pain) RF: 0 (DME) blood-glucose meter [OneTouch Verio Meter] Misc See Rx Instructions .ROUTE .MEDSUPPLY Qty: 1 RF: 0 (DME) OneTouch Verio test strips Strip See Rx Instructions .ROUTE .MEDSUPPLY Qty: 50 RF: 3 (DME) lancets [OneTouch Delica Lancets] 33 gauge misc See Rx Instructions .ROUTE .MEDSUPPLY Qty: 100 RF: 3 guaifenesin [Mucinex] 600 mg Tablet Extended Release 12hr 1,200 mg PO BID Qty: 28 RF: 0 cyanocobalamin (vitamin B-12) 1,000 mcg capsule 1,000 mcg PO DAILY Qty: 30 RF: 0 losartan 50 mg tablet 50 mg PO QAM RF: 0 folic acid 1 mg tablet 1 mg PO QAM RF: 0 benzonatate 100 mg capsule 100 - 200 mg PO TID PRN (Reason: cough) Qty: 30 RF: 0 ferrous sulfate [Iron (ferrous sulfate)] 325 mg (65 mg iron) tablet 325 mg PO BID RF: 0 Stiolto Respimat 2.5-2.5 mcg/actuation mist 2 spray INHALATION QAM RF: 0 diltiazem HCl 120 mg capsule,extended release 24hr 120 mg PO DAILY RF: 0 Discontinued Jardiance 10 mg tablet 10 mg PO QAM RF: 0 azithromycin 250 mg Tablet 250 mg PO QAM Qty: 3 RF: 0 prednisone 10 mg tablet 40 mg PO DAILY Qty: 14 RF: 0 Discharge Orders: Discharge Order (Routine); Ordered 04/23/22 Ordered By: Anibal Cobb/Other Patient Handouts: Managing Type 2 Diabetes Admission Data Admit Date/Time: 04/20/22 20:58 Attending Provider: Anibal Card Admit Provider: Danie Mckay Primary Care Provider: Rosi Borges Other Providers: Danie Mckay Other Interventions: Discharge Summary Assessment (RN) Last Done: 04/23/22 13:39 Coding Diagnoses UTI (urinary tract infection) N39.0 Acute on chronic respiratory failure with hypoxia J96.21 COPD exacerbation J44.1 Diabetes type 2, uncontrolled E11.65 Glycemic state: with hyperglycemia Hypomagnesemia E83.42 Hyperlipidemia E78.5 HTN (hypertension) I10 Chronic pain syndrome G89.4
== END 2022-04-23 14:08 | disposition home health service (06) | DRG 190 ==
LOC: ED 16:57 → 2N 20:58 → SUATTDRO 20:58 → 2N 21:42 → 3N 04-23 04:19

== ENCOUNTER 2022-12-11 19:39 | Inpatient (IN) ==
[2022-12-11] MEDS ORDERED: ALBUT/IPRATROP 3MG/0.5MG NEB 3 ML VIAL INH STA (20:32)
[2022-12-11 20:34] LABS: Basophils # (auto) 0.09 K/uL (0-0.2); Basophils % (auto) 0.7 %; Eosinophils % (auto) 2.4 %; Hematocrit (blood only) 31.6 % (34.1-44.9); Hemoglobin 9.9 g/dl (12.0-16.0); Immature Granulocytes # (auto) 0.14 K/uL (0.00-0.02); Immature Granulocytes % (auto) 1.1 %; Lymphocytes # (auto) 2.76 K/uL (1.2-3.4); Lymphocytes % (auto) 21.8 %; Mean Corpuscular Hemoglobin 26.9 pg (25.0-34.0); Mean Corpuscular Hgb Conc 31.3 g/dL (32.0-36.0); Mean Corpuscular Volume 85.9 fL (80.0-100.0); Mean Platelet Volume 9.5 fL (9.4-12.3); Monocytes # (auto) 0.69 K/uL (0.24-0.82); Monocytes % (auto) 5.4 %; Neutrophils % (auto) 68.6 %; Platelet Count 637 K/uL (130-400); RDW Coefficient of Variation 17.4 % (11.5-14.5); RDW Standard Deviation 54.4 fL (36.4-46.3); Red Blood Count 3.68 M/uL (3.93-5.22); White Blood Count 12.68 K/ul (4.8-10.8)
[2022-12-11 20:52] LABS: Prothrombin Time 10.6 Seconds (9.0-12.0); Troponin I High Sensitivity 6.6 pg/ml (0-14)
[2022-12-11 21:06] LABS: Albumin Globulin Ratio 1.5 (0.9-2); Albumin Level 3.5 gm/dl (3.4-5.0); BUN Creatinine Ratio 14.4 (10-20); Bilirubin,Total 0.2 mg/dl (0.2-1.0); Calcium 8.4 mg/dl (8.5-10.1); Creatinine Clr Calc Pharmacy 38.5 ml/min; Est GFR (African American) 50.5 ml/min; Est GFR (Non-African American) 43.5 ml/min; Globulin 2.3 gm/dl (2.5-4.0); Magnesium 1.6 mg/dl (1.7-2.4); Potassium 4.9 mmol/L (3.5-5.1); Total Protein 5.8 gm/dl (6.0-8.3)
[2022-12-11] MEDS ORDERED: MoRPHine SULFATE 2 MG/ML CARP IV STA (21:06)
[2022-12-11] MEDS ORDERED: ALBUT/IPRATROP 3MG/0.5MG NEB 3 ML VIAL NEB STA (21:06)
[2022-12-11] MEDS ORDERED: MoRPHine SULFATE 2 MG/ML CARP IV PRN (21:06)
[2022-12-11] MEDS ORDERED: MAGNESIUM SULFATE / D5W 1 GM/100 ML BAG IV STA (21:07)
--- NOTE | 2022-12-11 21:31 | Emergency Department Note ---
Impression & Plan SOB (shortness of breath), COPD exacerbation, Anemia, Chest tightness ED Provider Note NAME: DANIELLA FLNANERY AGE: 72 SEX: F : 1950 ARRIVES VIA: Ambulance INFORMANT: [Patient][ems] ED PROVIDER(S): [Koby Magana MD] CHIEF COMPLAINT: Short of breath HISTORY OF PRESENT ILLNESS: The patient is a 72-year-old female presents to the ED with increasing dyspnea and chest tightness over the last several days. She typically wears 4 L of oxygen at home. She does have COPD. The patient states the pain across the chest at times is severe. Everything worsens with any type of exertion. She has not had fever, no increased cough. On the way to our hospital, she was given 125 mg of IV Solu-Medrol as well as a DuoNeb. She has not really noticed any significant improvement. The patient states that she is not safe to be at home, she is at the point where hospitalization is going to be required. She has been through this multiple times before. PMHx/PSHx: See Below SOCIAL HISTORY: See Below. PHYSICAL EXAM: GENERAL: Patient is in no acute distress. HEENT: No acute trauma, normocephalic atraumatic, mucous membranes moist, no nasal congestion. NECK: No stridor, no adenopathy, no meningismus, trachea is midline. LUNGS: Wheezing on the right, diminished breath sounds on the left. No obvious respiratory distress. HEART: Without murmurs gallops or rubs, regular rate and rhythm. ABDOMEN: Soft, nontender, bowel sounds positive, no peritonitis. EXTREMITIES: No cyanosis or edema, full range of motion of all the joints without pain or difficulty, no signs for acute trauma. NEUROLOGIC: Oriented x 3, no acute motor or sensory deficits, no focal weakness. SKIN: No rash, no jaundice, no diaphoresis. Pale. DIFFERENTIAL DIAGNOSIS: Reactive airway disease, pneumonia, pneumothorax, COPD, CHF, infection, cardiac ischemia, anemia, pulmonary embolism, bronchitis, as well as other pathologies. EMERGENCY DEPARTMENT COURSE/PROCEDURES: Prior/Outside records reviewed: Most recent discharge summary. EMS records. ECG per my interpretation: Indication was shortness of breath. The ECG shows a normal sinus rhythm. The rate is 80. There is a potential old inferior infarct. There is no ST elevation, no PVCs. Peaked T waves are noted. The QTC is 531. Compared to an ECG from 20 Apr 2022, the rate has increased slightly. The peaked T waves are now seen. Continuous Cardiac Monitoring per my interpretation: An order was placed for continuous cardiac monitoring. The monitor shows a rate of 92 with normal sinus rhythm. MEDICAL DECISION MAKING: There is a mild leukocytosis, this could be consistent with infection or the stress of her current situation. The patient was anemic but this appears baseline when looking back at previous testing. Platelet count was somewhat elevated at over 600. No coagulopathy. Creatinine was somewhat high at 1.25 consistent with some presumed dehydration. Magnesium was low at 1.6. Calcium was slightly low at 8.4. No worrisome liver enzyme elevation. ECG shows a normal sinus rhythm, no obvious ischemia. Cardiac enzyme testing x1 is not consistent with acute cardiac injury. COVID, influenza and RSV test were neg ative. Chest film shows findings of COPD, no pneumonia or pneumothorax or CHF. Patient was given IV saline for hydration, she received IV morphine for chest tightness and pain. She was given IV magnesium for the lower magnesium value. She received a DuoNeb. No additional steroids were given as she had received some prior to arrival. The patient presents with increasing dyspnea. She has known COPD. She is at the point where she is not able to function at home. She appears to be suffering from a severe COPD exacerbation. I did speak with the patient and case management, the on-call hospitalist has been consulted. DISPOSITION: Patient presentation and findings warrant a hospital stay. Past Med/Surg History Medical History AAA (abdominal aortic aneurysm) Acute hypotension Acute UTI Chronic low back pain Chronic pain syndrome Diabetes type 2, uncontrolled Diaphragmatic hernia (10/31/11) History of knee replacement Left peroneal nerve palsy Respiratory failure Syncope Surgical History H/O Achilles tendon repair (~2007) H/O: hysterectomy History of appendectomy History of bilateral oophorectomies History of lithotripsy (~2007) Hx of cholecystectomy Family History Other Family history non-contributory Social History Smoking Status: Current every day smoker Tobacco Type: Cigarettes Cigarettes Per Day: 10; Second Hand Exposure: No; Do You Dip or Chew Tobacco: No; Tobacco Cessation Education Requested by Patient: No Hx Alcohol Use: No Hx Substance Use: No Preferred Language: [place] Communication Ability: Effective Center Director Required: No Beliefs That Will Affect Care: None marital status: Current Living Situation: Spouse How many Children do You have: 3 Other Information That Helps Us Care for You: No Feels Safe at Home: Yes Safety Concerns: Feels Safe At This Time Assistive Devices: Cane, Walker and Wheelchair Allergies Allergies Allergy/AdvReac Type Severity Reaction Status Date / Time diflunisal AdvReac Intermediate HEART RACES Verified 12/11/22 22:28 Home Meds Home Medications Medication Instructions Recorded Confirmed albuterol sulfate 90 mcg/actuation 2 puff inhalation Q6 PRN Shortness 08/28/20 12/11/22 aerosol inhaler (Ventolin HFA) Of Breath Or Wheezing aspirin 81 mg tablet,delayed 81 mg PO QAM 08/28/20 12/11/22 release (Uri Low Dose Aspirin) atorvastatin 40 mg tablet (Lipitor) 40 mg PO QAM 08/28/20 12/11/22 budesonide 0.5 mg/2 mL suspension 0.5 mg inhalation BID 08/28/20 12/11/22 for nebulization (Pulmicort) metformin 1,000 mg tablet 1,000 mg PO BID 08/28/20 12/11/22 ipratropium 0.5 mg-albuterol 3 mg 3 ml inhalation QID PRN Shortness 09/25/20 12/11/22 (2.5 mg base)/3 mL nebulization Of Breath Or Wheezing soln tiotropium 2.5 mcg-olodaterol 2.5 2 spray inhalation QAM 09/02/21 12/11/22 mcg/actuation mist for inhalation (Stiolto Respimat) diltiazem HCl 120 mg 120 mg PO DAILY 01/12/22 12/11/22 capsule,extended release 24 hr folic acid 1 mg tablet 1 mg PO QAM 03/24/22 12/11/22 losartan 50 mg tablet 50 mg PO QAM 03/24/22 12/11/22 metoprolol succinate 50 mg 50 mg PO DAILY 12/11/22 12/11/22 tablet,extended release 24 hr oxycodone 5 mg tablet 5 mg PO TID PRN Pain 12/11/22 12/11/22 Previous Rx's Medication Instructions Recorded blood sugar diagnostic (OneTouch #50 ea 06/02/21 Verio test strips) blood-glucose meter (OneTouch #1 ea 06/02/21 Verio Meter) lancets 33 gauge (OneTouch Delica #100 ea 06/02/21 Lancets) Results & Data (ED) Vital Signs Vital Signs - 24 hr 12/11/22 19:55 12/11/22 19:55 12/11/22 20:02 Temperature 36.8 C Temperature Source Oral Pulse Rate 98 H Pulse Rate from SpO2 Sensor Pulse Rhythm Respiratory Rate 24 Respiratory Effort / Characteristics Labored Labored Respiratory Depth Shallow Shallow Blood Pressure 150/70 H Blood Pressure Mean 96 Blood Pressure Position Sitting Pulse Oximetry 98 Oxygen Delivery Method Nasal Cannula Nasal Cannula Nasal Cannula Oxygen Flow Rate 4 4 4 Sepsis Recent Fever Within 48 Hours No Sepsis New/Unexplained Change in Mental Status No Sepsis Action Taken by Nursing No Action Required 12/11/22 19:47 12/11/22 19:47 12/11/22 19:50 Temperature Temperature Source Pulse Rate 188 H 187 H Pulse Rate from SpO2 Sensor 95 H 93 H Pulse Rhythm Respiratory Rate 28 H 33 H Respiratory Effort / Characteristics Respiratory Depth Blood Pressure 154/70 H Blood Pressure Mean 98 Blood Pressure Position Pulse Oximetry 98 98 Oxygen Delivery Method Oxygen Flow Rate Sepsis Recent Fever Within 48 Hours Sepsis New/Unexplained Change in Mental Status Sepsis Action Taken by Nursing 12/11/22 19:57 12/11/22 19:57 12/11/22 20:00 Temperature Temperature Source Pulse Rate 165 H Pulse Rate from SpO2 Sensor 91 H Pulse Rhythm Respiratory Rate 23 Respiratory Effort / Characteristics Respiratory Depth Blood Pressure 138/71 150/70 H Blood Pressure Mean 93 96 Blood Pressure Position Pulse Oximetry 98 Oxygen Delivery Method Oxygen Flow Rate Sepsis Recent Fever Within 48 Hours Sepsis New/Unexplained Change in Mental Status Sepsis Action Taken by Nursing 12/11/22 20:00 12/11/22 20:10 12/11/22 20:20 Temperature Temperature Source Pulse Rate 182 H 92 H 96 H Pulse Rate from SpO2 Sensor 91 H 92 H 95 H Pulse Rhythm Respiratory Rate 24 32 H 29 H Respiratory Effort / Characteristics Respiratory Depth Blood Pressure Blood Pressure Mean Blood Pressure Position Pulse Oximetry 98 98 98 Oxygen Delivery Method Oxygen Flow Rate Sepsis Recent Fever Within 48 Hours Sepsis New/Unexplained Change in Mental Status Sepsis Action Taken by Nursing 12/11/22 20:27 12/11/22 20:27 12/11/22 20:27 Temperature Temperature Source Pulse Rate 92 H Pulse Rate from SpO2 Sensor Pulse Rhythm Regular Respiratory Rate 25 H 25 H Respiratory Effort / Characteristics Short of Breath SOB on Exertion Respiratory Depth Blood Pressure Blood Pressure Mean Blood Pressure Position Pulse Oximetry 98 95 Oxygen Delivery Method Nasal Cannula Nasal Cannula Nasal Cannula Oxygen Flow Rate 4 4 4 Sepsis Recent Fever Within 48 Hours Sepsis New/Unexplained Change in Mental Status Sepsis Action Taken by Nursing 12/11/22 20:30 12/11/22 20:40 12/11/22 20:50 Temperature Temperature Source Pulse Rate 95 H Pulse Rate from SpO2 Sensor 96 H 95 H 96 H Pulse Rhythm Respiratory Rate 22 23 17 Respiratory Effort / Characteristics Respiratory Depth Blood Pressure Blood Pressure Mean Blood Pressure Position Pulse Oximetry 95 98 99 Oxygen Delivery Method Oxygen Flow Rate Sepsis Recent Fever Within 48 Hours Sepsis New/Unexplained Change in Mental Status Sepsis Action Taken by Nursing 12/11/22 21:00 12/11/22 21:00 12/11/22 21:10 Temperature Temperature Source Pulse Rate 99 H 101 H Pulse Rate from SpO2 Sensor 98 H 101 H Pulse Rhythm Respiratory Rate 22 28 H Respiratory Effort / Characteristics Respiratory Depth Blood Pressure 154/66 H Blood Pressure Mean 95 Blood Pressure Position Pulse Oximetry 95 98 Oxygen Delivery Method Oxygen Flow Rate Sepsis Recent Fever Within 48 Hours Sepsis New/Unexplained Change in Mental Status Sepsis Action Taken by Nursing 12/11/22 21:20 12/11/22 21:30 12/11/22 21:30 Temperature Temperature Source Pulse Rate Pulse Rate from SpO2 Sensor 100 H 100 H Pulse Rhythm Respiratory Rate 16 28 H Respiratory Effort / Characteristics Respiratory Depth Blood Pressure 159/71 H Blood Pressure Mean 100 Blood Pressure Position Pulse Oximetry 98 96 Oxygen Delivery Method Oxygen Flow Rate Sepsis Recent Fever Within 48 Hours Sepsis New/Unexplained Change in Mental Status Sepsis Action Taken by Nursing 12/11/22 21:40 12/11/22 21:50 12/11/22 22:00 Temperature Temperature Source Pulse Rate 101 H 99 H Pulse Rate from SpO2 Sensor 102 H 99 H Pulse Rhythm Respiratory Rate 27 H 24 Respiratory Effort / Characteristics Respiratory Depth Blood Pressure 151/75 H Blood Pressure Mean 100 Blood Pressure Position Pulse Oximetry 98 99 Oxygen Delivery Method Oxygen Flow Rate Sepsis Recent Fever Within 48 Hours Sepsis New/Unexplained Change in Mental Status Sepsis Action Taken by Nursing 12/11/22 22:00 12/11/22 22:10 12/11/22 22:20 Temperature Temperature Source Pulse Rate 199 H 104 H 105 H Pulse Rate from SpO2 Sensor 99 H 104 H 106 H Pulse Rhythm Respiratory Rate 21 22 26 H Respiratory Effort / Characteristics Respiratory Depth Blood Pressure Blood Pressure Mean Blood Pressure Position Pulse Oximetry 94 99 97 Oxygen Delivery Method Oxygen Flow Rate Sepsis Recent Fever Within 48 Hours Sepsis New/Unexplained Change in Mental Status Sepsis Action Taken by Nursing 12/11/22 22:30 Temperature Temperature Source Pulse Rate 104 H Pulse Rate from SpO2 Sensor 104 H Pulse Rhythm Respiratory Rate 26 H Respiratory Effort / Characteristics Respiratory Depth Blood Pressure Blood Pressure Mean Blood Pressure Position Pulse Oximetry 97 Oxygen Delivery Method Oxygen Flow Rate Sepsis Recent Fever Within 48 Hours Sepsis New/Unexplained Change in Mental Status Sepsis Action Taken by Snf Medications Current Medication List: was personally reviewed by me Laboratory Data Attestation: I reviewed the patient's lab results. 12/11/22 19:59 12/11/22 19:59 Lab Results 12/11/22 12/11/22 12/11/22 Range/Units 19:59 19:59 19:59 WBC 12.68 H (4.8-10.8) K/ul RBC 3.68 L (3.93-5.22) M/uL Hgb 9.9 L (12.0-16.0) g/dl Hct 31.6 L (34.1-44.9) % MCV 85.9 (80.0-100.0) fL MCH 26.9 (25.0-34.0) pg MCHC 31.3 L (32.0-36.0) g/dL RDW Std Deviation 54.4 H (36.4-46.3) fL RDW Coeff of Dorcas 17.4 H (11.5-14.5) % Plt Count 637 H (130-400) K/uL MPV 9.5 (9.4-12.3) fL Immature Gran % (Auto) 1.1 % Neut % (Auto) 68.6 % Lymph % (Auto) 21.8 % York % (Auto) 5.4 % Eos % (Auto) 2.4 % Baso % (Auto) 0.7 % Neut # (Auto) 8.70 H (1.4-6.5) K/uL Lymph # (Auto) 2.76 (1.2-3.4) K/uL York # (Auto) 0.69 (0.24-0.82) K/uL Eos # (Auto) 0.30 (0-0.50) K/uL Baso # (Auto) 0.09 (0-0.2) K/uL Immature Gran # (Auto) 0.14 H (0.00-0.02) K/uL PT 10.6 (9.0-12.0) Seconds INR 1.0 (0.9-1.1) APTT 27.0 (21.0-31.0) Seconds PTT Ratio 1.0 Sodium 142 (136-145) mmol/L Potassium 4.9 (3.5-5.1) mmol/L Chloride 105 (98-107) mmol/L Carbon Dioxide 32 (21-32) mmol/L Anion Gap 5 (3-11) BUN 18 (6-23) mg/dl Creatinine 1.25 H (0.6-1.2) mg/dl Est Cr Clr Drug Dosing 38.5 ml/min Est GFR ( Amer) 50.5 ml/min Est GFR (Non-Af Amer) 43.5 ml/min BUN/Creatinine Ratio 14.4 (10-20) Glucose 162 H (70-99(Fasting)) mg/dl Calcium 8.4 L (8.5-10.1) mg/dl Magnesium 1.6 L (1.7-2.4) mg/dl Total Bilirubin 0.2 (0.2-1.0) mg/dl AST 9 L (13-39) U/L ALT 10 (7-52) U/L Alkaline Phosphatase 98 (34-104) U/L Troponin I High Sens 6.6 (0-14) pg/ml Total Protein 5.8 L (6.0-8.3) gm/dl Albumin 3.5 (3.4-5.0) gm/dl Globulin 2.3 L (2.5-4.0) gm/dl Albumin/Globulin Ratio 1.5 (0.9-2) SARS-CoV-2 (PCR) (Negative) Influenza Type A (PCR) (Neg) Influenza Type B (PCR) (Neg) RSV (RT-PCR) (Neg) 12/11/22 Range/Units 21:51 WBC (4.8-10.8) K/ul RBC (3.93-5.22) M/uL Hgb (12.0-16.0) g/dl Hct (34.1-44.9) % MCV (80.0-100.0) fL MCH (25.0-34.0) pg MCHC (32.0-36.0) g/dL RDW Std Deviation (36.4-46.3) fL RDW Coeff of Dorcas (11.5-14.5) % Plt Count (130-400) K/uL MPV (9.4-12.3) fL Immature Gran % (Auto) % Neut % (Auto) % Lymph % (Auto) % York % (Auto) % Eos % (Auto) % Baso % (Auto) % Neut # (Auto) (1.4-6.5) K/uL Lymph # (Auto) (1.2-3.4) K/uL York # (Auto) (0.24-0.82) K/uL Eos # (Auto) (0-0.50) K/uL Baso # (Auto) (0-0.2) K/uL Immature Gran # (Auto) (0.00-0.02) K/uL PT (9.0-12.0) Seconds INR (0.9-1.1) APTT (21.0-31.0) Seconds PTT Ratio Sodium (136-145) mmol/L Potassium (3.5-5.1) mmol/L Chloride (98-107) mmol/L Carbon Dioxide (21-32) mmol/L Anion Gap (3-11) BUN (6-23) mg/dl Creatinine (0.6-1.2) mg/dl Est Cr Clr Drug Dosing ml/min Est GFR ( Amer) ml/min Est GFR (Non-Af Amer) ml/min BUN/Creatinine Ratio (10-20) Glucose (70-99(Fasting)) mg/dl Calcium (8.5-10.1) mg/dl Magnesium (1.7-2.4) mg/dl Total Bilirubin (0.2-1.0) mg/dl AST (13-39) U/L ALT (7-52) U/L Alkaline Phosphatase (34-104) U/L Troponin I High Sens (0-14) pg/ml Total Protein (6.0-8.3) gm/dl Albumin (3.4-5.0) gm/dl Globulin (2.5-4.0) gm/dl Albumin/Globulin Ratio (0.9-2) SARS-CoV-2 (PCR) NEGATIVE (Negative) Influenza Type A (PCR) Negative (Neg) Influenza Type B (PCR) Negative (Neg) RSV (RT-PCR) Negative (Neg) Administered Medications Acetaminophen (Acetaminophen 325 Mg Tab) 650 mg PO Q4H PRN PRN Reason: Pain or Fever Stop: 01/10/23 23:58 Last Admin: 12/12/22 01:08 Dose: 650 mg Documented By: ROSANA Magnesium Sulfate/Dextrose (Magnesium Sulfate / D5w) 1 gm in 100 mls @ 50 mls/hr IV ONE ONE Stop: 12/12/22 01:58 Last Admin: 12/12/22 01:09 Dose: 50 mls/hr Documented By: ROSANA Discontinued Medications Albuterol (Albut/Ipratrop 3mg/0.5mg Neb 3 Ml Vial) 3 ml INH NOW STA Stop: 12/11/22 20:33 Last Admin: 12/11/22 20:37 Dose: 3 ml Documented By: TIERRA Albuterol (Albut/Ipratrop 3mg/0.5mg Neb 3 Ml Vial) 3 ml NEB NOW STA; Protocol Stop: 12/11/22 21:07 Last Admin: 12/11/22 21:53 Dose: 3 ml Documented By: TIERRA Albuterol (Albut/Ipratrop 3mg/0.5mg Neb 3 Ml Vial) Confirm Administered Dose 3 ml .ROUTE .STK-MED ONE Stop: 12/12/22 00:39 Last Admin: 12/12/22 00:41 Dose: 3 ml Documented By: URIAH Magnesium Sulfate/Dextrose (Magnesium Sulfate / D5w) 1 gm in 100 mls @ 100 mls/hr IV NOW STA Stop: 12/11/22 22:06 Last Infusion: 12/11/22 22:23 Dose: 0 mls/hr Documented By: Admin: 12/11/22 21:23 Dose: 100 mls/hr Documented By: TIERRA Sodium Chloride (Nss 1000ml) 500 mls @ 999 mls/hr IV .Q31M ONE Stop: 12/11/22 22:04 Last Infusion: 12/11/22 22:24 Dose: 0 mls/hr Documented By: Admin: 12/11/22 21:53 Dose: 999 mls/hr Documented By: TIERRA Morphine Sulfate (Morphine Sulfate 2 Mg/Ml Carp) 2 mg IV NOW STA Stop: 12/11/22 21:07 Last Admin: 12/11/22 21:22 Dose: 2 mg Documented By: TIERRA Morphine Sulfate (Morphine Sulfate 2 Mg/Ml Carp) 2 mg IV Q30M PRN PRN Reason: Pain Stop: 12/25/22 21:05 Last Admin: 12/11/22 22:08 Dose: 2 mg Documented By: TIERRA Imaging Data Attestation: I personally reviewed and interpreted this imaging study as follows: My Impression: Chest x-ray: There are some chronic COPD findings, no obvious infiltrate, pneumothorax or CHF. Discharge Plan Visit Data Chief Complaint: Shortness of Breath/Dyspnea ED Provider: Koby Magana Discharge Problem: SOB (shortness of breath), COPD exacerbation, Anemia, Chest tightness Patient Disposition: Admitted As Inpatient Condition: Fair Discharge Instructions Interventions: ED Discharge Assessment Last Done: 12/11/22 23:34
[2022-12-11] MEDS ORDERED: SODIUM CHLORIDE 0.9% 1000ML 500 ML IV ONE (21:34)
--- NOTE | 2022-12-11 22:40 | History & Physical Report ---
Date of Service December 11, 2022 Assessment & Plan (1) COPD exacerbation: (2) Acute on chronic respiratory failure with hypoxia: (3) Chronic pain syndrome: (4) Hypomagnesemia: (5) Hyperlipidemia: (6) Chronic kidney disease: (7) HTN (hypertension): (8) Diabetes type 2, uncontrolled: Plan Acute on chronic respiratory failure with hypoxia/COPD exacerbation- Received magnesium sulfate 1 g IV in ED, normal saline 500 mill bolus, DuoNeb x2, morphine sulfate 2 mg IV x1. Methylprednisolone 20 mg IV every 8 hours Azithromycin 5 mg IV today, then 250 mg p.o. daily Duonebs every 4 hours while awake and every 2 hours when necessary. Pulmicort Respules 0.5 mg inhaled twice daily Guaifenesin extended release 1200 mg p.o. every 12 hours On maintenance 4 L nasal cannula at home, with target pulse ox 90% Continue Stiolto Respimat Hyperlipidemia- Continue atorvastatin 40 mg every morning Diabetes mellitus- Hold metformin Placed on Accu-Cheks before meals and at bedtime with NovoLog coverage per scale Hypertension- Continue aspirin, diltiazem, losartan and metoprolol succinate Chronic pain syndrome- Acetaminophen 650 mg p.o. every 6 hours as needed for mild pain or fever Oxycodone 5 mg p.o. 3 times daily as needed for moderate pain as in the outpatient setting Hypomagnesemia- Magnesium level 1.6 on admission Received 1 g of magnesium from the ED, will provide additional 1 g for a total of 2 g Recheck laboratories in a.m. History of Present Illness Chief Complaint: The patient presents to the emergency department with complaint of worsening shortness of breath, dyspnea on exertion and chest tightness over the last several days, despite wearing her 4 L of oxygen at home. In route to the emergency department she did receive methylprednisolone 125 mg IV and a DuoNeb with no significant improvement. Primary Care Provider: BRET Espinoza The patient is a 72-year-old female with a past medical history including acute on chronic respiratory failure with hypoxia, chronic pain syndrome, COPD exacerbation, hypomagnesemia, B12 deficiency, hyperlipidemia, CKD, hypertension, thrombocythemia, AAA, diabetes mellitus type 2 uncontrolled. The patient presented to the emergency department with symptoms as noted above. She reports that she does not feel safe staying at home by herself, and prefers to be admitted to the hospital. She reports that this episode of breathing difficulties similar to her previous episodes that required hospitalization. Her most recent hospitalization was from 04/20-04/23/2022 for COPD exacerbation. Allergies Allergy/AdvReac Type Severity Reaction Status Date / Time diflunisal AdvReac Intermediate HEART RACES Verified 12/11/22 22:28 Home Medications Medication Instructions Recorded Confirmed Type albuterol sulfate 90 mcg/actuation 2 puff inhalation Q6 PRN Shortness 08/28/20 12/11/22 History aerosol inhaler (Ventolin HFA) Of Breath Or Wheezing aspirin 81 mg tablet,delayed 81 mg PO QAM 08/28/20 12/11/22 History release (Uri Low Dose Aspirin) atorvastatin 40 mg tablet (Lipitor) 40 mg PO QAM 08/28/20 12/11/22 History budesonide 0.5 mg/2 mL suspension 0.5 mg inhalation BID 08/28/20 12/11/22 History for nebulization (Pulmicort) metformin 1,000 mg tablet 1,000 mg PO BID 08/28/20 12/11/22 History ipratropium 0.5 mg-albuterol 3 mg 3 ml inhalation QID PRN Shortness 09/25/20 12/11/22 History (2.5 mg base)/3 mL nebulization Of Breath Or Wheezing soln blood sugar diagnostic (OneTouch #50 ea 06/02/21 03/24/22 Rx Verio test strips) blood-glucose meter (OneTouch #1 ea 06/02/21 03/24/22 Rx Verio Meter) lancets 33 gauge (OneTouch Delica #100 ea 06/02/21 03/24/22 Rx Lancets) tiotropium 2.5 mcg-olodaterol 2.5 2 spray inhalation QAM 09/02/21 12/11/22 History mcg/actuation mist for inhalation (Stiolto Respimat) diltiazem HCl 120 mg 120 mg PO DAILY 01/12/22 12/11/22 History capsule,extended release 24 hr folic acid 1 mg tablet 1 mg PO QAM 03/24/22 12/11/22 History losartan 50 mg tablet 50 mg PO QAM 03/24/22 12/11/22 History metoprolol succinate 50 mg 50 mg PO DAILY 01/18/23 01/18/23 History tablet,extended release 24 hr oxycodone 5 mg tablet 5 mg PO TID PRN Pain 12/11/22 12/11/22 History Past Med/Surg History Medical History AAA (abdominal aortic aneurysm) Acute hypotension Acute UTI Chronic low back pain Chronic pain syndrome Diabetes type 2, uncontrolled Diaphragmatic hernia (10/31/11) History of knee replacement Left peroneal nerve palsy Respiratory failure Syncope Surgical History H/O Achilles tendon repair (~2007) H/O: hysterectomy History of appendectomy History of bilateral oophorectomies History of lithotripsy (~2007) Hx of cholecystectomy Family History Other Family history non-contributory Social History Smoking Status: Current every day smoker Tobacco Type: Cigarettes Cigarettes Per Day: 10; Second Hand Exposure: No; Do You Dip or Chew Tobacco: No; Tobacco Cessation Education Requested by Patient: No Hx Alcohol Use: No Hx Substance Use: No Preferred Language: Bahamian Communication Ability: Effective Evaluation Specialist Required: No Beliefs That Will Affect Care: None marital status: Current Living Situation: Spouse How many Children do You have: 3 Other Information That Helps Us Care for You: No Feels Safe at Home: Yes Safety Concerns: Feels Safe At This Time Assistive Devices: Cane, Walker and Wheelchair Review of Systems Review of Systems: The patient denies chest pain, palpitations, lower extremity swelling, sore throat, fevers, chills, sweats, nausea, vomiting, diarrhea , constipation, abdominal pain, pelvic pain, blood in urine or stool, dysuria, urinary frequency or urgency, lightheadedness, dizziness, headache, memory loss, loss of consciousness, rash, abnormal bruising or bleeding, imbalance, focal weakness, numbness or tingling in arms or legs, generalized arthralgias or myalgias, back or neck pain, or night sweats. The review of systems is otherwise negative other than for that already noted above, and at least 10 systems have been reviewed. Physical Exam Physical Exam: The patient is awake, alert and oriented 3, normocephalic and atraumatic, lying in bed and mild respiratory distress. HEENT--PERRL, EOMI, mucous membranes and oropharynx dry. Neck--supple. No JVD. No bruits. Thyroid normal, trachea midline, no adenopath y. Heart--normal S1 and S2. No murmurs, rubs or gallops. Lungs--lungs are very tight, with little air movement throughout. Mild respiratory distress, no accessory muscle use. Abdomen--normal bowel sounds and soft. Nontender. Nondistended, no hernias or masses, no organomegaly. Extremities--no cyanosis or clubbing. No edema. Dermatologic--normal skin turgor, normal color, no abnormal lymph nodes, no rash. Neurologic--cranial nerves II through XII grossly intact. Rheumatologic--normal range of motion. Psychiatric--normal affect. Results & Data Results & Data ([facility]) Vital Signs (Past 12 Hours) Vital Signs Temp Pulse Resp BP Pulse Ox O2 Del Method O2 Flow Rate 12/11/22 22:20 105 H 26 H 97 12/11/22 22:10 104 H 22 99 12/11/22 22:00 199 H 21 94 12/11/22 22:00 151/75 H 12/11/22 21:50 99 H 24 99 12/11/22 21:40 101 H 27 H 98 12/11/22 21:30 28 H 96 12/11/22 21:30 159/71 H 12/11/22 21:20 16 98 12/11/22 21:10 101 H 28 H 98 12/11/22 21:00 99 H 22 95 12/11/22 21:00 154/66 H 12/11/22 20:50 17 99 12/11/22 20:40 23 98 12/11/22 20:30 95 H 22 95 12/11/22 20:27 Nasal Cannula 4 12/11/22 20:27 25 H 95 Nasal Cannula 4 12/11/22 20:27 92 H 25 H 98 Nasal Cannula 4 12/11/22 20:20 96 H 29 H 98 12/11/22 20:10 92 H 32 H 98 12/11/22 20:00 182 H 24 98 12/11/22 20:00 150/70 H 12/11/22 19:57 138/71 12/11/22 19:57 165 H 23 98 12/11/22 19:50 187 H 33 H 98 12/11/22 19:47 188 H 28 H 98 12/11/22 19:47 154/70 H 12/11/22 20:02 Nasal Cannula 4 12/11/22 19:55 36.8 C 98 H 24 150/70 H 98 Nasal Cannula 4 12/11/22 19:55 Nasal Cannula 4 Laboratory Results Laboratory Results WBC 12.68 K/ul (4.8-10.8) H 12/11/22 19:59 RBC 3.68 M/uL (3.93-5.22) L 12/11/22 19:59 Hgb 9.9 g/dl (12.0-16.0) L 12/11/22 19:59 Hct 31.6 % (34.1-44.9) L 12/11/22 19:59 MCV 85.9 fL (80.0-100.0) 12/11/22 19:59 MCH 26.9 pg (25.0-34.0) 12/11/22 19:59 MCHC 31.3 g/dL (32.0-36.0) L 12/11/22 19:59 RDW Std Deviation 54.4 fL (36.4-46.3) H 12/11/22 19:59 RDW Coeff of Dorcas 17.4 % (11.5-14.5) H 12/11/22 19:59 Plt Count 637 K/uL (130-400) H 12/11/22 19:59 MPV 9.5 fL (9.4-12.3) 12/11/22 19:59 Immature Gran % (Auto) 1.1 % 12/11/22 19:59 Neut % (Auto) 68.6 % 12/11/22 19:59 Lymph % (Auto) 21.8 % 12/11/22 19:59 [place] % (Auto) 5.4 % 12/11/22 19:59 Eos % (Auto) 2.4 % 12/11/22 19:59 Baso % (Auto) 0.7 % 12/11/22 19:59 Neut # (Auto) 8.70 K/uL (1.4-6.5) H 12/11/22 19:59 Lymph # (Auto) 2.76 K/uL (1.2-3.4) 12/11/22 19:59 [place] # (Auto) 0.69 K/uL (0.24-0.82) 12/11/22 19:59 Eos # (Auto) 0.30 K/uL (0-0.50) 12/11/22 19:59 Baso # (Auto) 0.09 K/uL (0-0.2) 12/11/22 19:59 Immature Gran # (Auto) 0.14 K/uL (0.00-0.02) H 12/11/22 19:59 PT 10.6 Seconds (9.0-12.0) 12/11/22 19:59 INR 1.0 (0.9-1.1) 12/11/22 19:59 APTT 27.0 Seconds (21.0-31.0) 12/11/22 19:59 PTT Ratio 1.0 12/11/22 19:59 Sodium 142 mmol/L (136-145) 12/11/22 19:59 Potassium 4.9 mmol/L (3.5-5.1) 12/11/22 19:59 Chloride 105 mmol/L (98-107) 12/11/22 19:59 Carbon Dioxide 32 mmol/L (21-32) 12/11/22 19:59 Anion Gap 5 (3-11) 12/11/22 19:59 BUN 18 mg/dl (6-23) 12/11/22 19:59 Creatinine 1.25 mg/dl (0.6-1.2) H 12/11/22 19:59 Est Cr Clr Drug Dosing 38.5 ml/min 12/11/22 19:59 Est GFR ( Amer) 50.5 ml/min 12/11/22 19:59 Est GFR (Non-Af Amer) 43.5 ml/min 12/11/22 19:59 BUN/Creatinine Ratio 14.4 (10-20) 12/11/22 19:59 Glucose 162 mg/dl (70-99(Fasting)) H 12/11/22 19:59 Calcium 8.4 mg/dl (8.5-10.1) L 12/11/22 19:59 Magnesium 1.6 mg/dl (1.7-2.4) L 12/11/22 19:59 Total Bilirubin 0.2 mg/dl (0.2-1.0) 12/11/22 19:59 AST 9 U/L (13-39) L 12/11/22 19:59 ALT 10 U/L (7-52) 12/11/22 19:59 Alkaline Phosphatase 98 U/L (34-104) 12/11/22 19:59 Troponin I High Sens 6.6 pg/ml (0-14) 12/11/22 19:59 Total Protein 5.8 gm/dl (6.0-8.3) L 12/11/22 19:59 Albumin 3.5 gm/dl (3.4-5.0) 12/11/22 19:59 Globulin 2.3 gm/dl (2.5-4.0) L 12/11/22 19:59 Albumin/Globulin Ratio 1.5 (0.9-2) 12/11/22 19:59 SARS-CoV-2 (PCR) NEGATIVE (Negative) 12/11/22 21:51 Influenza Type A (PCR) Negative (Neg) 12/11/22 21:51 Influenza Type B (PCR) Negative (Neg) 12/11/22 21:51 RSV (RT-PCR) Negative (Neg) 12/11/22 21:51 Code Status & VTE Plan Code Status Full code VTE Prophylaxis Plan VTE Prophylaxis will be ordered: Yes PG Care Time/CCT Total # of Minutes Spent Total Time Spent with Patient: Total time spent is greater than 50% in coordination of care (as documented) at patient's floor/unit and/or counseling patient: Coding Level of Care Code 59940 INT INP/OBS CARE 3/75MIN Diagnoses COPD exacerbation J44.1 Acute on chronic respiratory failure with hypoxia J96.21 Chronic pain syndrome G89.4 Hypomagnesemia E83.42 Hyperlipidemia E78.5 Chronic kidney disease N18.9 HTN (hypertension) I10 Diabetes type 2, uncontrolled Glycemic state: with hyperglycemia (1) Diabetes type 2, uncontrolled Glycemic state: with hyperglycemia Qualified Code(s): E11. - Type 2 diabet es mellitus with hyperglycemia
[2022-12-11 22:49] LABS: Influenza A virus by PCR Negative (Neg); Influenza B virus by PCR Negative (Neg); RSV by PCR Negative (Neg); SARS CoV2 RNA(COVID-19) Ceph NEGATIVE (Negative)
[2022-12-11] MEDS ORDERED: ONDANSETRON INJ 2 MG/ML 2 ML VIAL IV PRN (23:59)
[2022-12-11] MEDS ORDERED: GLUCOSE 10 TAB/TUBE PO PRN (23:59)
[2022-12-11] MEDS ORDERED: ACETAMINOPHEN 325 MG TAB PO PRN (23:59)
[2022-12-11] MEDS ORDERED: DEXTROSE 50% 50 ML SYRINGE IV PRN (23:59)
[2022-12-11] MEDS ORDERED: GLUCAGON FOR INJ 1 MG VIAL SQ PRN (23:59)
[2022-12-11] MEDS ORDERED: MAGNESIUM SULFATE / D5W 1 GM/100 ML BAG IV ONE (23:59)
[2022-12-11] MEDS ORDERED: AZITHROMYCIN 500 MG in DEXTROSE 5% 250 ML IV ONE (23:59)
[2022-12-11] MEDS ORDERED: GLUCOSE 40% GEL 15 GM TUBE PO PRN (23:59)
[2022-12-11] MEDS ORDERED: CARBOHYDRATES FOR HYPOGLYCEMIA PO PRN (23:59)
[2022-12-12] MEDS ORDERED: ALBUT/IPRATROP 3MG/0.5MG NEB 3 ML VIAL ONE (00:38)
[2022-12-12] MEDS: methylPREDNISolone 20 MG in SYRINGE 0 ML IV SCH ×3 (02:00→17:29)
[2022-12-12] MEDS: oxyCODONE HCL IR 5 MG TAB (IMMEDIATE RELEASE) PO PRN ×3 (05:34→17:35)
[2022-12-12] MEDS: BUDESONIDE 0.5 MG/2 ML VIAL (PULMICORT) NEB SCH ×2 (05:47→19:11)
[2022-12-12] MEDS: ALBUT/IPRATROP 3MG/0.5MG NEB 3 ML VIAL NEB SCH ×4 (05:47→19:10)
--- NOTE | 2022-12-12 07:15 | XRay Report ---
XR chest 1V portable HISTORY: 72 years-old Female SOB acute shortness of breath COMPARISON: Chest radiograph 04/20/2022 TECHNIQUE: AP view of the chest FINDINGS: Cardiomediastinal and hilar silhouettes are within normal limits. Punctate calcified granulomata of t he lateral right lung base. No pneumothorax, pleural effusion or airspace consolidation. Advanced emp hysema with chronic interstitial coarsening. Degenerative changes of the shoulders and spine. IMPRESSION: Emphysema without acute process. ACT 112: Negative or not required by law. The above report was generated using voice recognition software. It may contain grammatical, syntax o r spelling errors. Electronically signed by: Israel Sharma M.D. 12/12/2022 7:13 AM
[2022-12-12 07:24] LABS: Hematocrit (blood only) 34.4 % (34.1-44.9); Hemoglobin 10.6 g/dl (12.0-16.0); Mean Corpuscular Hemoglobin 26.5 pg (25.0-34.0); Mean Corpuscular Hgb Conc 30.8 g/dL (32.0-36.0); Mean Platelet Volume 9.7 fL (9.4-12.3); Platelet Count 689 K/uL (130-400); RDW Coefficient of Variation 17.4 % (11.5-14.5); RDW Standard Deviation 54.7 fL (36.4-46.3); White Blood Count 17.52 K/ul (4.8-10.8)
[2022-12-12 07:26] LABS: Estimated Average Glucose 197 mg/dl; Hemoglobin A1C 8.5 % (4.5-5.6)
[2022-12-12 07:29] LABS: Partial Thromboplastin Time 26.8 Seconds (21.0-31.0); Prothrombin Time 10.9 Seconds (9.0-12.0)
[2022-12-12 07:38] LABS: Albumin Level 3.6 gm/dl (3.4-5.0); Bilirubin,Total 0.2 mg/dl (0.2-1.0); Calcium 8.2 mg/dl (8.5-10.1); Magnesium 2.3 mg/dl (1.7-2.4); Potassium 5.5 mmol/L (3.5-5.1)
[2022-12-12 07:51] LABS: Acanthocytes 1+; Albumin Globulin Ratio 1.5 (0.9-2); BUN Creatinine Ratio 21.5 (10-20); Basophils # (auto) 0.04 K/uL (0-0.2); Basophils % (auto) 0.2 %; Creatinine Clr Calc Pharmacy 44.4 ml/min; Echinocytes 1+; Est GFR (African American) 60.9 ml/min; Est GFR (Non-African American) 52.6 ml/min; Globulin 2.4 gm/dl (2.5-4.0); Immature Granulocytes # (auto) 0.18 K/uL (0.00-0.02); Lymphocytes # (auto) 0.59 K/uL (1.2-3.4); Lymphocytes % (auto) 3.4 %; Monocytes # (auto) 0.11 K/uL (0.24-0.82); Monocytes % (auto) 0.6 %; Neutrophils % (auto) 94.8 %; Polychromasia 1+
[2022-12-12] MEDS ORDERED: BUDESONIDE 0.5 MG/2 ML VIAL (PULMICORT) INH SCH (09:00)
[2022-12-12] MEDS: METOPROLOL SUCC 50MG EXT REL TAB PO SCH (09:15)
[2022-12-12] MEDS: INSULIN ASPART PER UNIT SC SCH ×4 (09:15→21:02)
[2022-12-12] MEDS: guaiFENesin 600 MG TABCR PO SCH ×2 (09:15→21:03)
[2022-12-12] MEDS: dilTIAZem HCL 120 MG CAPCR PO SCH (09:15)
[2022-12-12] MEDS: FOLIC ACID 1 MG TAB PO SCH (09:15)
[2022-12-12] MEDS: LOSARTAN POTASSIUM 50 MG TAB PO SCH (09:15)
[2022-12-12] MEDS: AZITHROMYCIN 250 MG in DEXTROSE 5% 250 ML IV SCH (09:16)
[2022-12-12] MEDS: UMECLIDINIUM/VILANTEROL 62.5/25MCG 7 PUFFS/INHALER INH SCH (09:28)
[2022-12-12] MEDS: ASPIRIN 81 MG ECTAB PO SCH (09:28)
[2022-12-12] MEDS: ATORVASTATIN 40 MG TAB PO SCH (09:28)
--- NOTE | 2022-12-12 10:45 | Hospitalist Progress Note ---
Date of Service December 12, 2022 Assessment & Plan (1) COPD exacerbation: Plan: Patient has a history of COPD, on 4L of oxygen at home -Admitted on account of worsening SOB and wheeze -Found to be in exacerbation -Started on IV Solumedrol, Duonebs, Azithromycin, Budesonide -SOB much improved, minimal wheeze on exam -Hopefully d/c in the next 24 hrs (2) Acute on chronic respiratory failure with hypoxia: Plan: Secondary to COPd Exacrbation -At home, on 4L -Wean oxygen as tolerated (3) HTN (hypertension): Plan: BP is under good control Continue home meds (4) Hypomagnesemia: Plan: replace (5) Hyperlipidemia: (6) Chronic kidney disease: Plan: kidney function at baseline avoid nephrotoxics (7) Diabetes type 2, uncontrolled: Plan: Blood glucose is under good control monitor in view of steroids continue sliding scale insulin (8) Chronic pain syndrome: Plan hopefully d/c tomorrow Admission and Anticipated Discharge Date Admission Date: December 11, 2022 Subjective patient seen and examined, says SOB is better Review of Systems Review of Systems: All systems reviewed are negative, apart from the ones contained in the history. Physical Exam Physical Exam: The patient is awake, alert and oriented 3, well developed and well nourished, normocephalic and atraumatic, lying in bed and in no acute distress. HEENT--PERRL, EOMI, mucous membranes and oropharynx mildly dry Neck--supple. No JVD. No bruits. Thyroid normal, trachea midline, no adenopathy. Heart--normal S1 and S2. No murmurs, rubs or gallops. Lungs--clear bilaterally, no respiratory distress, no accessory muscle use. Abdomen--normal bowel sounds and soft. Mild epigastric and left sided abdominal pain Extremities--no cyanosis or clubbing. No edema. Dermatologic--normal skin turgor, normal color, no abnormal lymph nodes, no rash. Neurologic--cranial nerves II through XII grossly intact. Rheumatologic--normal range of motion. Psychiatric--normal affect. Results & Data Results & Data ([facility]) Vital Signs (Past 12 Hours) Vital Signs Temp Pulse Pulse Resp BP BP Pulse Ox 12/12/22 10:01 103 H 20 97 12/12/22 07:15 97.9 F 102 H 18 140/101 H 146/70 H 94 12/12/22 00:06 104 H 12/12/22 05:49 103 H 18 96 12/12/22 03:45 98.2 F 100 H 20 160/74 H 98 12/12/22 01:21 12/12/22 00:42 99 H 18 93 12/12/22 00:35 98.2 F 99 H 18 140/77 97 12/11/22 23:59 98.1 F 107 H 20 146/78 H 97 12/11/22 23:54 98.1 F 107 H 20 97 12/11/22 23:00 106 H 24 97 12/11/22 22:50 107 H 26 H 97 12/11/22 22:40 104 H 29 H 97 O2 Del Method O2 Flow Rate 12/12/22 10:01 Nasal Cannula 4 12/12/22 07:15 Nasal Cannula 12/12/22 00:06 12/12/22 05:49 Nasal Cannula 4 12/12/22 03:45 Nasal Cannula 4 12/12/22 01:21 Nasal Cannula 4 12/12/22 00:42 Nasal Cannula 3.5 12/12/22 00:35 Nasal Cannula 6 12/11/22 23:59 Nasal Cannula 4 12/11/22 23:54 Nasal Cannula 4 12/11/22 23:00 12/11/22 22:50 12/11/22 22:40 PG Care Time/CCT Total # of Minutes Spent Total Time Spent with Patient: Total time spent is greater than 50% in coordination of care (as documented) at patient's floor/unit and/or counseling patient: Coding Level of Care Code 51006 SUB INP/OBS CARE 2/35MIN Diagnoses COPD exacerbation J44.1 Acute on chronic respiratory failure with hypoxia J96.21 HTN (hypertension) I10 Hypomagnesemia E83.42 Hyperlipidemia E78.5 Chronic kidney disease N18.9 Diabetes type 2, uncontrolled E11.65 Glycemic state: with hyperglycemia Chronic pain syndrome G89.4 Time Spent (min) 35 (1) Diabetes type 2, uncontrolled Glycemic state: with hyperglycemia Qualified Code(s): E11.65 - Type 2 diabetes mellitus with hyperglycemia
[2022-12-12] MEDS ORDERED: INSULIN HUMAN REGULAR PER UNIT 6 UNITS in SYRINGE 5.94 ML IV ONE (13:35)
[2022-12-12] MEDS ORDERED: oxyCODONE HCL IR 5 MG TAB (IMMEDIATE RELEASE) PO STA (23:01)
[2022-12-13] MEDS: methylPREDNISolone 20 MG in SYRINGE 0 ML IV SCH ×2 (00:32→09:15)
[2022-12-13] MEDS: oxyCODONE HCL IR 5 MG TAB (IMMEDIATE RELEASE) PO PRN ×2 (01:46→09:16)
[2022-12-13] MEDS: INSULIN ASPART PER UNIT SC SCH ×3 (02:04→12:19)
[2022-12-13] MEDS: BUDESONIDE 0.5 MG/2 ML VIAL (PULMICORT) NEB SCH (05:44)
[2022-12-13] MEDS: ALBUT/IPRATROP 3MG/0.5MG NEB 3 ML VIAL NEB SCH ×3 (05:44→10:43)
[2022-12-13 07:25] LABS: Hematocrit (blood only) 33.3 % (34.1-44.9); Hemoglobin 10.5 g/dl (12.0-16.0); Mean Corpuscular Hemoglobin 26.9 pg (25.0-34.0); Mean Corpuscular Hgb Conc 31.5 g/dL (32.0-36.0); Mean Corpuscular Volume 85.4 fL (80.0-100.0); Mean Platelet Volume 9.5 fL (9.4-12.3); Platelet Count 755 K/uL (130-400); RDW Coefficient of Variation 17.4 % (11.5-14.5); RDW Standard Deviation 53.8 fL (36.4-46.3)
[2022-12-13 07:38] LABS: Partial Thromboplastin Ratio 0.9; Partial Thromboplastin Time 24.2 Seconds (21.0-31.0); Prothrombin Time 10.8 Seconds (9.0-12.0)
[2022-12-13 07:43] LABS: Basophils # (auto) 0.03 K/uL (0-0.2); Basophils % (auto) 0.1 %; Immature Granulocytes # (auto) 0.31 K/uL (0.00-0.02); Immature Granulocytes % (auto) 1.3 %; Lymphocytes # (auto) 0.77 K/uL (1.2-3.4); Lymphocytes % (auto) 3.1 %; Monocytes # (auto) 0.37 K/uL (0.24-0.82); Monocytes % (auto) 1.5 %; Neutrophils # (auto) 23.02 K/uL (1.4-6.5)
[2022-12-13 08:26] LABS: Albumin Level 3.6 gm/dl (3.4-5.0); Bilirubin,Total 0.2 mg/dl (0.2-1.0); Calcium 8.7 mg/dl (8.5-10.1); Potassium 5.9 mmol/L (3.5-5.1)
[2022-12-13 08:32] LABS: Albumin Globulin Ratio 1.6 (0.9-2); BUN Creatinine Ratio 31.8 (10-20); Creatinine Clr Calc Pharmacy 43.6 ml/min; Est GFR (African American) 58.9 ml/min; Est GFR (Non-African American) 50.8 ml/min; Globulin 2.2 gm/dl (2.5-4.0); Total Protein 5.8 gm/dl (6.0-8.3)
[2022-12-13] MEDS: METOPROLOL SUCC 50MG EXT REL TAB PO SCH (09:15)
[2022-12-13] MEDS: LOSARTAN POTASSIUM 50 MG TAB PO SCH (09:15)
[2022-12-13] MEDS: guaiFENesin 600 MG TABCR PO SCH (09:15)
[2022-12-13] MEDS: ASPIRIN 81 MG ECTAB PO SCH (09:15)
[2022-12-13] MEDS: ATORVASTATIN 40 MG TAB PO SCH (09:15)
[2022-12-13] MEDS: FOLIC ACID 1 MG TAB PO SCH (09:15)
[2022-12-13] MEDS: dilTIAZem HCL 120 MG CAPCR PO SCH (09:15)
[2022-12-13] MEDS: UMECLIDINIUM/VILANTEROL 62.5/25MCG 7 PUFFS/INHALER INH SCH (09:16)
[2022-12-13] MEDS: AZITHROMYCIN 250 MG in DEXTROSE 5% 250 ML IV SCH (09:17)
--- NOTE | 2022-12-13 10:12 | Electrocardiogram Report ---
Test Reason : Blood Pressure : / mmHG Vent. Rate : 094 BPM Atrial Rate : 094 BPM P-R Int : 148 ms QRS Dur : 082 ms QT Int : 360 ms P-R-T Axes : 072 015 072 degrees QTc Int : 450 ms Sinus rhythm Inferior infarct (cited on or before 24-MAR-2022) Cannot rule out Anterior infarct , age undetermined Abnormal ECG When compared with ECG of 20-APR-2022 16:59, No significant change Confirmed by Mickey Lobato ([id number]) on 12/13/2022 10:12:48 AM Referred By: REFERRED SELF Confirmed By:Mickey Lobato
--- NOTE | 2022-12-13 14:32 | Discharge Summary ---
Date of Service December 13, 2022 Admission HPI Per Admitting Provider The patient is a 72-year-old female with a past medical history including acute on chronic respiratory failure with hypoxia, chronic pain syndrome, COPD exacerbation, hypomagnesemia, B12 deficiency, hyperlipidemia, CKD, hypertension, thrombocythemia, AAA, diabetes mellitus type 2 uncontrolled. The patient presented to the emergency department with symptoms as noted above. She reports that she does not feel safe staying at home by herself, and prefers to be admitted to the hospital. She reports that this episode of breathing difficulties similar to her previous episodes that required hospitalization. Her most recent hospitalization was from 04/20-04/23/2022 for COPD exacerbation. Principal Diagnosis copd exacerbation Discharge Exam The patient is awake, alert and oriented 3, well developed and well nourished, normocephalic and atraumatic, lying in bed and in no acute distress. HEENT--PERRL, EOMI, mucous membranes and oropharynx mildly dry Neck--supple. No JVD. No bruits. Thyroid normal, trachea midline, no adenopathy. Heart--normal S1 and S2. No murmurs, rubs or gallops. Lungs--clear bilaterally, no respiratory distress, no accessory muscle use. Abdomen--normal bowel sounds and soft. Mild epigastric and left sided abdominal pain Extremities--no cyanosis or clubbing. No edema. Dermatologic--normal skin turgor, normal color, no abnormal lymph nodes, no rash. Neurologic--cranial nerves II through XII grossly intact. Rheumatologic--normal range of motion. Psychiatric--normal affect. Discharge Data Allergies Allergy/AdvReac Type Severity Reaction Status Date / Time diflunisal AdvReac Intermediate HEART RACES Verified 12/11/22 22:28 Consultations 12/11/22 21:37 ED Decision to Admit Stat Hospital Course (1) COPD exacerbation: Patient has a history of COPD, on 4L of oxygen at home -Admitted on account of worsening SOB and wheeze -Found to be in exacerbation -Started on IV Solumedrol, Duonebs, Azithromycin, Budesonide -SOB much improved, minimal wheeze on exam -D/C today, patient wanted a prescription for nebs (2) Acute on chronic respiratory failure with hypoxia: Secondary to COPd Exacrbation -At home, on 4L -Wean oxygen as tolerated (3) HTN (hypertension): BP is under good control Continue home meds (4) Hypomagnesemia: replace (5) Hyperlipidemia: (6) Chronic kidney disease: kidney function at baseline avoid nephrotoxics (7) Diabetes type 2, uncontrolled: Blood glucose elevated on account of steroids monitor in view of steroids continue sliding scale insulin (8) Chronic pain syndrome: Plan hopefully d/c tomorrow Total Time Total Time Spent Total Time Spent (In Minutes): 35 Discharge Plan Discharge Items Patient Disposition: Home - Self-Care Reason For Visit: COPD EXACERBATION Discharge Diagnosis: COPD exacerbation Condition on Discharge: Fair Activity: Resume your previous activity Non-emergency contact: Primary Care Provider and Blood Bank Calendar Control Clerk Call non-emergency contact if: you have any medication questions and your symptoms worsen Follow-up/Referrals: Rosi Borges CRNP [Primary Care Provider] - Diet: Regular Addtl Attending Provider Instructions: please make appointment with your Blood Bank Calendar Control Clerk Pending Studies at Discharge: No Stand-Alone Forms: My [employer], Smoking Cessation Medications and DC Order Prescriptions: New ipratropium-albuterol 0.5 mg-3 mg(2.5 mg base)/3 mL solution for nebulization 3 ml inhalation Q4H PRN (Reason: shortness of breath) Qty: 90 0RF Rx Instructions: until breathing returns to target peak flow/parameters Continued ipratropium-albuterol 0.5 mg-3 mg(2.5 mg base)/3 mL solution for nebulization 3 ml INHALATION QID PRN (Reason: Shortness Of Breath Or Wheezing) atorvastatin [Lipitor] 40 mg tablet 40 mg PO QAM budesonide [Pulmicort] 0.5 mg/2 mL suspension for nebulization 0.5 mg inhalation BID aspirin [Uri Low Dose Aspirin] 81 mg Tablet,Delayed Release (Dr/Ec) 81 mg PO QAM albuterol sulfate [Ventolin HFA] 90 mcg/actuation HFA aerosol inhaler 2 puff INHALATION Q6 PRN (Reason: Shortness Of Breath Or Wheezing) metformin 1,000 mg tablet 1,000 mg PO BID (DME) blood-glucose meter [OneTouch Verio Meter] Misc See Rx Instructions .ROUTE .MEDSUPPLY Qty: 1 0RF Rx Instructions: to test blood sugar 1-2 times/day (DME) OneTouch Verio test strips Strip See Rx Instructions .ROUTE .MEDSUPPLY Qty: 50 3RF Rx Instructions: test blood sugar 1-2 times per day (DME) lancets [OneTouch Delica Lancets] 33 gauge misc See Rx Instructions .ROUTE .MEDSUPPLY Qty: 100 3RF Rx Instructions: test sugar 1-2 times per day losartan 50 mg tablet 50 mg PO QAM folic acid 1 mg tablet 1 mg PO QAM Stiolto Respimat 2.5-2.5 mcg/actuation mist 2 spray INHALATION QAM diltiazem HCl 120 mg capsule,extended release 24hr 120 mg PO DAILY metoprolol succinate 50 mg tablet extended release 24 hr 50 mg PO DAILY oxycodone 5 mg tablet 5 mg PO TID PRN (Reason: Pain) Discharge Orders: Discharge Order (Routine); Ordered 12/13/22 Ordered By: Donna Cobb/Other Patient Handouts: Managing Type 2 Diabetes Admission Data Admit Date/Time: 12/11/22 22:40 Attending Provider: Donna Holman Admit Provider: Danie Mckay Primary Care Provider: Rosi Borges Other Providers: Danie Mckay Other Interventions: Discharge Summary Assessment (RN) Last Done: 12/13/22 12:31 Coding Level of Care Code HOSP INP/OBS DISCH >30 MIN Diagnoses COPD exacerbation J44.1 Acute on chronic respiratory failure with hypoxia J96.21 HTN (hypertension) I10 Hypomagnesemia E83.42 Hyperlipidemia E78.5 Chronic kidney disease N18.9 Diabetes type 2, uncontrolled E11.65 Glycemic state: with hyperglycemia Chronic pain syndrome G89.4 Time Spent (min) 35
== END 2022-12-13 12:48 | disposition home health service (06) | DRG 189 ==
LOC: ED 19:39 → SUATTDRO 22:40 → 2E 22:40
DX: N18.9 Chronic kidney disease, unspecified; J44.1 Chronic obstructive pulmonary disease with (acute) exacerbation; F17.210 Nicotine dependence, cigarettes, uncomplicated; D64.9 Anemia, unspecified; Z79.82 Long term (current) use of aspirin; E53.8 Deficiency of other specified B group vitamins; G89.4 Chronic pain syndrome; I12.9 Hypertensive chronic kidney disease with stage 1 through stage 4 chronic kidney disease, or unspecified chronic kidney disease; J96.21 Acute and chronic respiratory failure with hypoxia; Z79.84 Long term (current) use of oral hypoglycemic drugs; E83.42 Hypomagnesemia; Z99.81 Dependence on supplemental oxygen; E11.22 Type 2 diabetes mellitus with diabetic chronic kidney disease; E78.5 Hyperlipidemia, unspecified; I71.40 Abdominal aortic aneurysm, without rupture, unspecified

== ENCOUNTER 2023-08-23 08:41 | Inpatient (IN) ==
[2023-08-23] MEDS ORDERED: methylPREDNISolone 125 MG/2 ML VIAL IV STA (08:50)
[2023-08-23] MEDS ORDERED: SODIUM CHLORIDE 0.9% 500 ML IV ONE (08:50)
[2023-08-23] MEDS ORDERED: ONDANSETRON INJ 2 MG/ML 2 ML VIAL IV STA (08:50)
[2023-08-23] MEDS ORDERED: MoRPHine SULFATE 4 MG/ML 1 ML CARP\\VIAL IV STA (08:50)
[2023-08-23] MEDS ORDERED: ALBUT/IPRATROP 3MG/0.5MG NEB 3 ML VIAL NEB ONE (08:50)
--- NOTE | 2023-08-23 08:57 | Emergency Department Note ---
Impression & Plan Respiratory distress, Hypertension, COPD exacerbation, Respiratory acidosis, Elevated lactic acid level, Tachycardia, Hypomagnesemia ED Provider Note NAME: DANIELLA FLANNERY AGE: 73 SEX: F : 1950 ARRIVES VIA: Ambulance INFORMANT: [Patient][ems, nursing] ED PROVIDER(S): [Koby Magana MD] CHIEF COMPLAINT: Short of breath HISTORY OF PRESENT ILLNESS: The patient is a 73-year-old female with a history of COPD and chronic pain. She was very short of breath this morning and somewhat short of breath yesterday. When EMS arrived at her house this morning, they felt that her oxyg en tank was empty. She typically wears 4 L of oxygen. In route to the hospital, the patient was given a DuoNeb and 4 baby aspirin. In addition to the shortness of breath, she complained of chest tightness/pain. The patient still feels short of breath despite the ambulance care. She complains of all over body pain. She states that she missed her pain medication this morning. The patient has not had fever. No sick contacts. She is concerned that she ran out of oxygen. PMHx/PSHx: See Below SOCIAL HISTORY: See Below. PHYSICAL EXAM: GENERAL: Patient is in moderate distress from pain and dyspnea. HEENT: No acute trauma, normocephalic atraumatic, mucous membranes markedly dry, no nasal congestion. NECK: No stridor, no adenopathy, no meningismus, trachea is midline. LUNGS: Minimal breath sounds heard especially on the left. Scattered wheezes. The patient does have an increased respiratory rate and there is mild to moderate respiratory distress. HEART: Distant heart tones, rhythm seems regular, no obvious murmur. Mildly tachycardic. ABDOMEN: Soft, nontender, bowel sounds positive, no peritonitis. EXTREMITIES: No cyanosis, mild bilateral pedal edema, full range of motion of all the joints without pain or difficulty, no signs for acute trauma. NEUROLOGIC: Oriented x 3, no acute motor or sensory deficits, no focal weakness. SKIN: No rash, no jaundice, no diaphoresis. DIFFERENTIAL DIAGNOSIS: Exacerbation of COPD, CHF, pneumonia, pneumothorax, bronchitis, ME, anemia, CHF, among others. EMERGENCY DEPARTMENT COURSE/PROCEDURES: Prior/Outside records reviewed: Previous discharge summary. EMS notes. ECG per my interpretation: Indication was shortness of breath. The ECG shows a sinus tachycardia with a rate of 111. There is some poor R wave progression. There is no ST elevation, no PVCs. The QTc is 454. Continuous Cardiac Monitoring per my interpretation: An order was placed for continuous cardiac monitoring. The monitor shows a rate of 118 with sinus tachycardia. Critical Care Note: I have personally spent 53 minutes of critical care time in the direct management of this patient. This includes bedside care, interpretation of diagnostic studies, and testing, discussion with consultants, patient, and family members, and other required patient management activities. This 53 minutes is in excess of all separately billable procedures. MEDICAL DECISION MAKING: There is no leukocytosis. The patient is mildly anemic but this is baseline looking back at previous testing. There is a normal platelet count. No coagulopathy. VBG does show a mild respiratory acidosis. No renal failure. Magnesium is low at 1.6. Lactic acid level is elevated at 2.2, this could be consistent with infection or possibly, just her hypoxia. No concerning liver enzyme elevation. BNP was not elevated making CHF and fluid overload less likely. ECG showed a sinus tachycardia, no ST elevation. Cardiac enzyme testin g x1 was not consistent with acute cardiac injury. Respiratory bio fire returned completely negative. Chest film per my review does show some chronic change, no pneumonia or CHF. On exam, the patient did appear quite short of breath. She was in some respiratory distress. There was minimal air movement. The patient was aggressively managed. She was given a 1 hour DuoNeb. She received IV Solu-Medrol, 125 mg. She was given a 500 cc saline bolus. She received IV morphine for pain, IV Tylenol for pain. She was given IV Zofran for nausea. She received IV ceftriaxone as antibiotic coverage. The patient had missed her morning medications. She received her typical oral metoprolol succinate, diltiazem CD, losartan. The patient does appear to be making some improvement with the above treatment. Her blood pressure has improved and she seems more comfortable. Patient will require a hospital stay. She may have flared her COPD when she ran out of oxygen. Regardless, she is in no condition to be discharged home and will require some time in the hospital. I spoke with the patient and case management, the on-call hospitalist was consulted. DISPOSITION: Patient presentation and findings warrant a hospital stay. Past Med/Surg History Medical History AAA (abdominal aortic aneurysm) Acute exacerbation of chronic low back pain Acute hypercapnic respiratory failure Acute hypotension Acute kidney injury Acute on chronic respiratory failure with hypoxia Acute on chronic respiratory failure with hypoxia and hypercapnia Acute UTI TATY (acute kidney injury) AMS (altered mental status) Candidiasis of mouth and esophagus Chronic kidney disease, stage 3a Chronic low back pain Chronic pain syndrome COPD (chronic obstructive pulmonary disease) COPD exacerbation Diabetes mellitus Diabetes type 2, uncontrolled Diaphragmatic hernia (10/31/11) DVT prophylaxis History of knee replacement Hyperkalemia Hyperlipidemia Hypertension Left peroneal nerve palsy Respiratory failure Syncope Tobacco abuse Surgical History H/O Achilles tendon repair (~2007) H/O: hysterectomy History of appendectomy History of bilateral oophorectomies History of lithotripsy (~2007) Hx of cholecystectomy Family History Other Family history non-contributory Social History Smoking Status: Current every day smoker Tobacco Type: Cigarettes Cigarettes Per Day: 10; Second Hand Exposure: No; Do You Dip or Chew Tobacco: No; Hx Alcohol Use: No Hx Substance Use: No Preferred Language: Iranian Communication Ability: Effective Modular Set 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 Member Required: No Beliefs That Will Affect Care: None marital status: Current Living Situation: Spouse How many Children do You have: 3 Feels Safe at Home: Yes Assistive Devices: Oxygen - Continuous Allergies Allergies Allergy/AdvReac Type Severity Reaction Status Date / Time diflunisal AdvReac Intermediate HEART RACES Verified 12/11/22 22:28 Home Meds Home Medications Medication Instructions Recorded Confirmed albuterol sulfate 90 mcg/actuation 2 puff inhalation Q6 PRN Shortness 08/28/20 08/23/23 aerosol inhaler (Ventolin HFA) Of Breath Or Wheezing aspirin 81 mg tablet,delayed 81 mg PO QAM 08/28/20 08/23/23 release (Uri Low Dose Aspirin) atorvastatin 40 mg tablet (Lipitor) 40 mg PO QAM 08/28/20 08/23/23 budesonide 0.5 mg/2 mL suspension 0.5 mg inhalation BID 08/28/20 08/23/23 for nebulization (Pulmicort) metformin 1,000 mg tablet 1,000 mg PO BID 08/28/20 08/23/23 ipratropium 0.5 mg-albuterol 3 mg 3 ml inhalation QID PRN Shortness 09/25/20 08/23/23 (2.5 mg base)/3 mL nebulization Of Breath Or Wheezing soln tiotropium 2.5 mcg-olodaterol 2.5 2 spray inhalation QAM 09/02/21 08/23/23 mcg/actuation mist for inhalation (Stiolto Respimat) diltiazem HCl 120 mg 120 mg PO DAILY 01/12/22 08/23/23 capsule,extended release 24 hr folic acid 1 mg tablet 1 mg PO QAM 03/24/22 08/23/23 losartan 50 mg tablet 50 mg PO QAM 03/24/22 08/23/23 metoprolol succinate 50 mg 50 mg PO DAILY 12/11/22 08/23/23 tablet,extended release 24 hr oxycodone 5 mg tablet 5 mg PO TID PRN Pain 12/11/22 08/23/23 budesonide-formoterol HFA 160 See Rx Instructions .Route .COMPLEX 08/23/23 0 08/23/23 mcg-4.5 mcg/actuation aerosol inhaler (Symbicort) bupropion HCl 150 mg 24 hr tablet, 150 mg PO DAILY 08/23/23 08/23/23 extended release furosemide 20 mg tablet 20 mg PO DAILY 08/23/23 08/23/23 rosuvastatin 20 mg tablet 20 mg PO DAILY 08/23/23 08/23/23 Previous Rx's Medication Instructions Recorded blood sugar diagnostic (Visible TechnologiesTouch #50 ea 06/02/21 Verio test strips) blood-glucose meter (Visible TechnologiesTouch #1 ea 06/02/21 Verio Meter) lancets 33 gauge (OneTouch Delica #100 ea 06/02/21 Lancets) ipratropium 0.5 mg-albuterol 3 mg 3 ml inhalation Q4H PRN shortness 12/13/22 (2.5 mg base)/3 mL nebulization of breath #90 mL soln Results & Data (ED) Vital Signs Vital Signs - 24 hr 08/23/23 08:51 08/23/23 08:57 08/23/23 09:05 Temperature 36.8 C Temperature Source Temporal Artery Scan Pulse Rate 108 H 100 H Pulse Rate [Apical] 99 H Pulse Rhythm Respiratory Rate 24 24 Respiratory Effort / Characteristics Spontaneous Short of Breath SOB on Exertion Respiratory Depth Blood Pressure 167/144 H Blood Pressure [Right Arm] Blood Pressure Mean 151 Blood Pressure Mean [Right Arm] Pulse Oximetry 92 93 Oxygen Delivery Method Nasal Cannula Nasal Cannula Oxygen Flow Rate 4 4 Sepsis Recent Fever Within 48 Hours No Sepsis New/Unexplained Change in Mental Status No Sepsis Action Taken by Nursing Physician Notified 08/23/23 09:07 08/23/23 09:07 08/23/23 10:29 Temperature Temperature Source Pulse Rate 86 Pulse Rate [Apical] 115 H Pulse Rhythm Regular Respiratory Rate 32 H Respiratory Effort / Characteristics Accessory Muscle Use Respiratory Depth Shallow Blood Pressure Blood Pressure [Right Arm] 162/69 H Blood Pressure Mean Blood Pressure Mean [Right Arm] 100 Pulse Oximetry 93 93 90 Oxygen Delivery Method Nasal Cannula Nasal Cannula Nasal Cannula Oxygen Flow Rate 4 4 4 Sepsis Recent Fever Within 48 Hours Sepsis New/Unexplained Change in Mental Status Sepsis Action Taken by Intermediate Medications Current Medication List: was personally reviewed by me Laboratory Data Attestation: I reviewed the patient's lab results. 08/23/23 09:00 08/23/23 09:00 Lab Results 08/23/23 08/23/23 08/23/23 Range/Units 09:00 09:00 09:00 WBC 8.00 (4.8-10.8) K/ul RBC 3.95 L (4.20-5.40) M/uL Hgb 10.6 L (12.0-16.0) g/dl Hct 35.1 L (37.0-47.0) % MCV 88.9 (80.0-100.0) fL MCH 26.8 (25.0-34.0) pg MCHC 30.2 L (32.0-36.0) g/dL RDW Std Deviation 54.2 H (36.4-46.3) fL RDW Coeff of Dorcas 16.9 H (11.5-14.5) % Plt Count 333 (130-400) K/uL MPV 10.1 (9.4-12.4) fL Immature Gran % (Auto) 0.5 % Neut % (Auto) 72.9 % Lymph % (Auto) 17.5 % Evangeline % (Auto) 5.9 % Eos % (Auto) 2.4 % Baso % (Auto) 0.8 % Neut # (Auto) 5.84 (1.40-6.50) K/uL Lymph # (Auto) 1.40 (1.20-3.40) K/uL Evangeline # (Auto) 0.47 (0.11-0.59) K/uL Eos # (Auto) 0.19 (0.00-0.50) K/uL Baso # (Auto) 0.06 (0.00-0.20) K/uL Immature Gran # (Auto) 0.04 (0.01-0.20) K/uL PT (9.0-12.0) Seconds INR (0.9-1.1) APTT (21.0-31.0) Seconds PTT Ratio VBG pH (7.36-7.41) VBG pCO2 (38-50) mmHg VBG pO2 mmHg VBG HCO3 mmol/L VBG O2 Saturation % VBG Base Excess mEq/L Sodium 138 (136-145) mmol/L Potassium 4.6 (3.5-5.1) mmol/L Chloride 102 (98-107) mmol/L Carbon Dioxide 31 (21-32) mmol/L Anion Gap 5 (3-11) BUN 14 (6-23) mg/dl Creatinine 0.96 (0.6-1.2) mg/dl Est Cr Clr Drug Dosing 51.8 ml/min Est GFR ( Amer) 69.0 ml/min Est GFR (Non-Af Amer) 59.5 ml/min BUN/Creatinine Ratio 14.6 (10-20) Glucose 235 H (70-99(Fasting)) mg/dl Lactate 2.2 H* (0.4-2.0) mmol/L Calcium 8.9 (8.6-10.3) mg/dl Magnesium 1.6 L (1.7-2.4) mg/dl Total Bilirubin 0.2 (0.2-1.0) mg/dl AST 17 (13-39) U/L ALT 29 (7-52) U/L Alkaline Phosphatase 90 (34-104) U/L Troponin I High Sens 5.5 (0-14) pg/ml B-Natriuretic Peptide (0-100) pg/ml Total Protein 6.5 (6.0-8.3) gm/dl Albumin 3.8 (3.4-5.0) gm/dl Globulin 2.7 (2.5-4.0) gm/dl Albumin/Globulin Ratio 1.4 (0.9-2) Adenovirus (PCR) (NotDetected) B. pertussis DNA (PCR) (NotDetected) B.parapertussis DNA PCR (NotDetected) C. pneumoniae DNA (PCR) (NotDetected) Coronavirus OC43 (PCR) (NotDetected) Coronavirus HKU1 (PCR) (NotDetected) Coronavirus 229E (PCR) (NotDetected) SARS-CoV-2 (PCR) (NotDetected) Coronavirus NL63 (PCR) (NotDetected) Human Metapneumovir PCR (NotDetected) Influenza Type A (PCR) (NotDetected) Influenza Type B (PCR) (NotDetected) M. pneumoniae (PCR) (NotDetected) Parainfluenza 1 (PCR) (NotDetected) Parainfluenza 2 (PCR) (NotDetected) Parainfluenza 3 (PCR) (NotDetected) Parainfluenza 4 (PCR) (NotDetected) RSV (PCR) (NotDetected) Entero/Rhino (PCR) (NotDetected) 08/23/23 08/23/23 08/23/23 Range/Units 09:00 09:00 09:00 WBC (4.8-10.8) K/ul RBC (4.20-5.40) M/uL Hgb (12.0-16.0) g/dl Hct (37.0-47.0) % MCV (80.0-100.0) fL MCH (25.0-34.0) pg MCHC (32.0-36.0) g/dL RDW Std Deviation (36.4-46.3) fL RDW Coeff of Dorcas (11.5-14.5) % Plt Count (130-400) K/uL MPV (9.4-12.4) fL Immature Gran % (Auto) % Neut % (Auto) % Lymph % (Auto) % Evangeline % (Auto) % Eos % (Auto) % Baso % (Auto) % Neut # (Auto) (1.40-6.50) K/uL Lymph # (Auto) (1.20-3.40) K/uL Evangeline # (Auto) (0.11-0.59) K/uL Eos # (Auto) (0.00-0.50) K/uL Baso # (Auto) (0.00-0.20) K/uL Immature Gran # (Auto) (0.01-0.20) K/uL PT 10.3 (9.0-12.0) Seconds INR 0.9 (0.9-1.1) APTT 26.4 (21.0-31.0) Seconds PTT Ratio 0.9 VBG pH (7.36-7.41) VBG pCO2 (38-50) mmHg VBG pO2 mmHg VBG HCO3 mmol/L VBG O2 Saturation % VBG Base Excess mEq/L Sodium (136-145) mmol/L Potassium (3.5-5.1) mmol/L Chloride (98-107) mmol/L Carbon Dioxide (21-32) mmol/L Anion Gap (3-11) BUN (6-23) mg/dl Creatinine (0.6-1.2) mg/dl Est Cr Clr Drug Dosing ml/min Est GFR ( Amer) ml/min Est GFR (Non-Af Amer) ml/min BUN/Creatinine Ratio (10-20) Glucose (70-99(Fasting)) mg/dl Lactate (0.4-2.0) mmol/L Calcium (8.6-10.3) mg/dl Magnesium (1.7-2.4) mg/dl Total Bilirubin (0.2-1.0) mg/dl AST (13-39) U/L ALT (7-52) U/L Alkaline Phosphatase (34-104) U/L Troponin I High Sens (0-14) pg/ml B-Natriuretic Peptide 91 (0-100) pg/ml Total Protein (6.0-8.3) gm/dl Albumin (3.4-5.0) gm/dl Globulin (2.5-4.0) gm/dl Albumin/Globulin Ratio (0.9-2) Adenovirus (PCR) Not Detected (NotDetected) B. pertussis DNA (PCR) Not Detected (NotDetected) B.parapertussis DNA PCR Not Detected (NotDetected) C. pneumoniae DNA (PCR) Not Detected (NotDetected) Coronavirus OC43 (PCR) Not Detected (NotDetected) Coronavirus HKU1 (PCR) Not Detected (NotDetected) Coronavirus 229E (PCR) Not Detected (NotDetected) SARS-CoV-2 (PCR) Not Detected (NotDetected) Coronavirus NL63 (PCR) Not Detected (NotDetected) Human Metapneumovir PCR Not Detected (NotDetected) Influenza Type A (PCR) Not Detected (NotDetected) Influenza Type B (PCR) Not Detected (NotDetected) M. pneumoniae (PCR) Not Detected (NotDetected) Parainfluenza 1 (PCR) Not Detected (NotDetected) Parainfluenza 2 (PCR) Not Detected (NotDetected) Parainfluenza 3 (PCR) Not Detected (NotDetected) Parainfluenza 4 (PCR) Not Detected (NotDetected) RSV (PCR) Not Detected (NotDetected) Entero/Rhino (PCR) Not Detected (NotDetected) 08/23/23 Range/Units 09:00 WBC (4.8-10.8) K/ul RBC (4.20-5.40) M/uL Hgb (12.0-16.0) g/dl Hct (37.0-47.0) % MCV (80.0-100.0) fL MCH (25.0-34.0) pg MCHC (32.0-36.0) g/dL RDW Std Deviation (36.4-46.3) fL RDW Coeff of Dorcas (11.5-14.5) % Plt Count (130-400) K/uL MPV (9.4-12.4) fL Immature Gran % (Auto) % Neut % (Auto) % Lymph % (Auto) % Evangeline % (Auto) % Eos % (Auto) % Baso % (Auto) % Neut # (Auto) (1.40-6.50) K/uL Lymph # (Auto) (1.20-3.40) K/uL Evangeline # (Auto) (0.11-0.59) K/uL Eos # (Auto) (0.00-0.50) K/uL Baso # (Auto) (0.00-0.20) K/uL Immature Gran # (Auto) (0.01-0.20) K/uL PT (9.0-12.0) Seconds INR (0.9-1.1) APTT (21.0-31.0) Seconds PTT Ratio VBG pH 7.32 L (7.36-7.41) VBG pCO2 64 H (38-50) mmHg VBG pO2 37 mmHg VBG HCO3 33 mmol/L VBG O2 Saturation < 60.0 % VBG Base Excess 4.9 mEq/L Sodium (136-145) mmol/L Potassium (3.5-5.1) mmol/L Chloride (98-107) mmol/L Carbon Dioxide (21-32) mmol/L Anion Gap (3-11) BUN (6-23) mg/dl Creatinine (0.6-1.2) mg/dl Est Cr Clr Drug Dosing ml/min Est GFR ( Amer) ml/min Est GFR (Non-Af Amer) ml/min BUN/Creatinine Ratio (10-20) Glucose (70-99(Fasting)) mg/dl Lactate (0.4-2.0) mmol/L Calcium (8.6-10.3) mg/dl Magnesium (1.7-2.4) mg/dl Total Bilirubin (0.2-1.0) mg/dl AST (13-39) U/L ALT (7-52) U/L Alkaline Phosphatase (34-104) U/L Troponin I High Sens (0-14) pg/ml B-Natriuretic Peptide (0-100) pg/ml Total Protein (6.0-8.3) gm/dl Albumin (3.4-5.0) gm/dl Globulin (2.5-4.0) gm/dl Albumin/Globulin Ratio (0.9-2) Adenovirus (PCR) (NotDetected) B. pertussis DNA (PCR) (NotDetected) B.parapertussis DNA PCR (NotDetected) C. pneumoniae DNA (PCR) (NotDetected) Coronavirus OC43 (PCR) (NotDetected) Coronavirus HKU1 (PCR) (NotDetected) Coronavirus 229E (PCR) (NotDetected) SARS-CoV-2 (PCR) (NotDetected) Coronavirus NL63 (PCR) (NotDetected) Human Metapneumovir PCR (NotDetected) Influenza Type A (PCR) (NotDetected) Influenza Type B (PCR) (NotDetected) M. pneumoniae (PCR) (NotDetected) Parainfluenza 1 (PCR) (NotDetected) Parainfluenza 2 (PCR) (NotDetected) Parainfluenza 3 (PCR) (NotDetected) Parainfluenza 4 (PCR) (NotDetected) RSV (PCR) (NotDetected) Entero/Rhino (PCR) (NotDetected) Administered Medications Magnesium Sulfate/Dextrose (Magnesium Sulfate / D5w) 1 gm in 100 mls @ 100 mls/hr IV NOW STA Stop: 08/23/23 10:43 Last Infusion: 08/23/23 10:28 Dose: 0 mls/hr Documented By: Admin: 08/23/23 10:00 Dose: 100 mls/hr Documented By: NOVA Discontinued Medications Albuterol (Albut/Ipratrop 3mg/0.5mg Neb 3 Ml Vial) 12 ml NEB ONE ONE; Protocol Stop: 08/23/23 08:51 Last Admin: 08/23/23 09:05 Dose: 12 ml Documented By: MALLORY Diltiazem HCl (Diltiazem Hcl 120 Mg Capcr) 120 mg PO NOW STA Stop: 08/23/23 09:43 Last Admin: 08/23/23 10:00 Dose: 120 mg Documented By: NOVA Sodium Chloride (Nss) 500 mls @ 999 mls/hr IV .Q31M ONE Stop: 08/23/23 09:20 Last Infusion: 08/23/23 10:04 Dose: 0 mls/hr Documented By: Admin: 08/23/23 09:32 Dose: 999 mls/hr Documented By: NOVA Ceftriaxone Sodium (Rocephin) 2,000 mg in 70 mls @ 140 mls/hr IV NOW STA Stop: 08/23/23 09:57 Last Infusion: 08/23/23 10:04 Dose: 0 mls/hr Documented By: Admin: 08/23/23 09:58 Dose: 140 mls/hr Documented By: ES Acetaminophen (Ofirmev) 1,000 mg in 100 mls @ 400 mls/hr IV NOW STA Stop: 08/23/23 09:54 Last Infusion: 08/23/23 10:04 Dose: 0 mls/hr Documented By: Admin: 08/23/23 09:58 Dose: 400 mls/hr Documented By: ES Losartan Potassium (Losartan Potassium 50 Mg Tab) 50 mg PO NOW STA Stop: 08/23/23 09:43 Last Admin: 08/23/23 10:00 Dose: 50 mg Documented By: ES Methylprednisolone (Methylprednisolone 125 Mg/2 Ml Vial) 125 mg IV NOW STA Stop: 08/23/23 08:51 Last Admin: 08/23/23 09:31 Dose: 125 mg Documented By: ES Metoprolol Succinate (Metoprolol Succ 50mg Ext Rel Tab) 50 mg PO NOW STA Stop: 08/23/23 09:43 Last Admin: 08/23/23 10:00 Dose: 50 mg Documented By: ES Morphine Sulfate (Morphine Sulfate 4 Mg/Ml 1 Ml Carp\Vial) 4 mg IV NOW STA Stop: 08/23/23 08:51 Last Admin: 08/23/23 09:31 Dose: 4 mg Documented By: ES Morphine Sulfate (Morphine Sulfate 2 Mg/Ml Carp) 2 mg IV NOW STA Stop: 08/23/23 09:41 Last Admin: 08/23/23 09:58 Dose: 2 mg Documented By: ES Ondansetron HCl (Ondansetron Inj 2 Mg/Ml 2 Ml Vial) 4 mg IV NOW STA Stop: 08/23/23 08:51 Last Admin: 08/23/23 09:32 Dose: 4 mg Documented By: ES Imaging Data Radiologist's Impression: Chest X-Ray 08/23/23 08:51 XR chest 1V portable CLINICAL HISTORY: Dyspnea COMPARISON STUDY: Chest CT January 12, 2022. Chest radiograph December 11, 2022 FINDINGS: There is no pneumothorax or pleural effusion. No consolidation is identified. There is no evidence for pulmonary edema. Cardiomediastinal silhouette is stable. There is emphysema. Possible 1 cm right upper lung nodule. This overlaps with the anterior right third rib. IMPRESSION: Possible 1 cm right upper lung nodule. This may be related to the right third rib however a pulmonary nodule cannot be excluded. A nonemergent chest CT is recommended. ACT 112: Positive. There are findings on this exam that require communication between the performing entity and the patient following Patient Test Result Information Act ([place] Act 112) guidelines. Electronically signed by: Cheng Arevalo M.D. 08/23/2023 9:10 AM Discharge Plan Visit Data Chief Complaint: Cardiac Assessment Stated Complaint: SOB, CHEST PAIN ED Provider: Koby Magana Discharge Problem: Respiratory distress, Hypertension, COPD exacerbation, Respiratory acidosis, Elevated lactic acid level, Tachycardia, Hypomagnesemia Patient Disposition: Admitted As Inpatient Condition: Serious Forms Stand Alone Forms: [employer]holder [employer] Prescriptions Prescriptions: No Action ipratropium-albuterol 0.5 mg-3 mg(2.5 mg base)/3 mL solution for nebulization 3 ml INHALATION QID PRN (Reason: Shortness Of Breath Or Wheezing) atorvastatin [Lipitor] 40 mg tablet 40 mg PO QAM budesonide [Pulmicort] 0.5 mg/2 mL suspension for nebulization 0.5 mg inhalation BID aspirin [Uri Low Dose Aspirin] 81 mg Tablet,Delayed Release (Dr/Ec) 81 mg PO QAM albuterol sulfate [Ventolin HFA] 90 mcg/actuation HFA aerosol inhaler 2 puff INHALATION Q6 PRN (Reason: Shortness Of Breath Or Wheezing) metformin 1,000 mg tablet 1,000 mg PO BID (DME) blood-glucose meter [[employer] Verio Meter] [facility] [place] See Rx Instructions .ROUTE .MEDSUPPLY Qty: 1 0RF Rx Instructions: to test blood sugar 1-2 times/day (DME) OneTouch Verio test strips Strip See Rx Instructions .ROUTE .MEDSUPPLY Qty: 50 3RF Rx Instructions: test blood sugar 1-2 times per day (DME) lancets [[employer] Delica Lancets] 33 gauge [facility] [place] See Rx Instructions .ROUTE .MEDSUPPLY Qty: 100 3RF Rx Instructions: test sugar 1-2 times per day losartan 50 mg tablet 50 mg PO QAM folic acid 1 mg tablet 1 mg PO QAM furosemide 20 mg tablet 20 mg PO DAILY rosuvastatin 20 mg tablet 20 mg PO DAILY bupropion HCl 150 mg tablet extended release 24 hr 150 mg PO DAILY budesonide-formoterol [Symbicort] 160-4.5 mcg/actuation HFA aerosol inhaler See Rx Instructions .ROUTE .COMPLEX Rx Instructions: as directed Stiolto Respimat 2.5-2.5 mcg/actuation mist 2 spray INHALATION QAM diltiazem HCl 120 mg capsule,extended release 24hr 120 mg PO DAILY metoprolol succinate 50 mg tablet extended release 24 hr 50 mg PO DAILY oxycodone 5 mg tablet 5 mg PO TID PRN (Reason: Pain) ipratropium-albuterol 0.5 mg-3 mg(2.5 mg base)/3 mL solution for nebulization 3 ml inhalation Q4H PRN (Reason: shortness of breath) Qty: 90 0RF Rx Instructions: until breathing returns to target peak flow/parameters Referrals Referrals: Rosi Borges CRNP [Primary Care Provider] - Hypertension Qualifiers: Hypertension type: unspecified Qualified Code(s): I10 - Essential (primary) hypertension
--- NOTE | 2023-08-23 09:13 | XRay Report ---
XR chest 1V portable CLINICAL HISTORY: Dyspnea COMPARISON STUDY: Chest CT January 12, 2022. Chest radiograph December 11, 2022 FINDINGS: There is no pneumothorax or pleural effusion. No consolidation is identified. There is no e vidence for pulmonary edema. Cardiomediastinal silhouette is stable. There is emphysema. Possible 1 c m right upper lung nodule. This overlaps with the anterior right third rib. IMPRESSION: Possible 1 cm right upper lung nodule. This may be related to the right third rib however a pulmonary nodule cannot be excluded. A nonemergent chest CT is recommended. ACT 112: Positive. There are findings on this exam that require communication between the performing entity and the patient following Patient Test Result Information Act ([place] Act 112) guidelines. Electronically signed by: Cheng Arevalo M.D. 08/23/2023 9:10 AM
[2023-08-23 09:17] LABS: Basophils # (auto) 0.06 K/uL (0.00-0.20); Basophils % (auto) 0.8 %; Eosinophils # (auto) 0.19 K/uL (0.00-0.50); Eosinophils % (auto) 2.4 %; Hematocrit (blood only) 35.1 % (37.0-47.0); Hemoglobin 10.6 g/dl (12.0-16.0); Immature Granulocytes # (auto) 0.04 K/uL (0.01-0.20); Immature Granulocytes % (auto) 0.5 %; Lymphocytes % (auto) 17.5 %; Mean Corpuscular Hemoglobin 26.8 pg (25.0-34.0); Mean Corpuscular Hgb Conc 30.2 g/dL (32.0-36.0); Mean Corpuscular Volume 88.9 fL (80.0-100.0); Mean Platelet Volume 10.1 fL (9.4-12.4); Monocytes # (auto) 0.47 K/uL (0.11-0.59); Monocytes % (auto) 5.9 %; Neutrophils # (auto) 5.84 K/uL (1.40-6.50); Neutrophils % (auto) 72.9 %; Platelet Count 333 K/uL (130-400); RDW Coefficient of Variation 16.9 % (11.5-14.5); RDW Standard Deviation 54.2 fL (36.4-46.3); Red Blood Count 3.95 M/uL (4.20-5.40)
[2023-08-23 09:24] LABS: Base Excess VBG 4.9 mEq/L; HCO3 VBG 33 mmol/L; Oxygen Saturation VBG < 60.0 %; PCO2 VBG 64 mmHg (38-50); PO2 VBG 37 mmHg; pH VBG 7.32 (7.36-7.41)
[2023-08-23] MEDS ORDERED: cefTRIAXone SODIUM 2,000 MG/70 ML BAG IV STA (09:28)
[2023-08-23] MEDS ORDERED: MoRPHine SULFATE 2 MG/ML CARP IV STA (09:40)
[2023-08-23] MEDS ORDERED: ACETAMINOPHEN 1,000 MG/100 ML VIAL IV STA (09:40)
[2023-08-23 09:42] LABS: Albumin Globulin Ratio 1.4 (0.9-2); Albumin Level 3.8 gm/dl (3.4-5.0); BUN Creatinine Ratio 14.6 (10-20); Bilirubin,Total 0.2 mg/dl (0.2-1.0); Calcium 8.9 mg/dl (8.6-10.3); Creatinine Clr Calc Pharmacy 51.8 ml/min; Est GFR (Non-African American) 59.5 ml/min; Globulin 2.7 gm/dl (2.5-4.0); Magnesium 1.6 mg/dl (1.7-2.4); Potassium 4.6 mmol/L (3.5-5.1); Total Protein 6.5 gm/dl (6.0-8.3)
[2023-08-23] MEDS ORDERED: LOSARTAN POTASSIUM 50 MG TAB PO STA (09:42)
[2023-08-23] MEDS ORDERED: METOPROLOL SUCC 50MG EXT REL TAB PO STA (09:42)
[2023-08-23] MEDS ORDERED: dilTIAZem HCL 120 MG CAPCR PO STA (09:42)
[2023-08-23] MEDS ORDERED: MAGNESIUM SULFATE / D5W 1 GM/100 ML BAG IV STA (09:44)
[2023-08-23 09:54] LABS: INR 0.9 (0.9-1.1); Partial Thromboplastin Ratio 0.9; Partial Thromboplastin Time 26.4 Seconds (21.0-31.0); Prothrombin Time 10.3 Seconds (9.0-12.0)
[2023-08-23 09:56] LABS: Troponin I High Sensitivity 5.5 pg/ml (0-14)
[2023-08-23 10:14] LABS: Adenovirus PCR Not Detected (NotDetected); Bordetella parapertussis PCR Not Detected (NotDetected); Bordetella pertussis PCR Not Detected (NotDetected); Chlamydia pneumoniae PCR Not Detected (NotDetected); Coronavirus 229E PCR Not Detected (NotDetected); Coronavirus CoV-2 (COVID19)PCR Not Detected (NotDetected); Coronavirus HKU1 PCR Not Detected (NotDetected); Coronavirus NL63 PCR Not Detected (NotDetected); Coronavirus OC43PCR Not Detected (NotDetected); Human Metapneumovirus PCR Not Detected (NotDetected); Influenza A PCR Not Detected (NotDetected); Influenza B PCR Not Detected (NotDetected); Mycoplasma pneumoniae PCR Not Detected (NotDetected); Parainfluenza Virus 1 PCR Not Detected (NotDetected); Parainfluenza Virus 2 PCR Not Detected (NotDetected); Parainfluenza Virus 3 PCR Not Detected (NotDetected); Parainfluenza Virus 4 PCR Not Detected (NotDetected); Respiratory Syncytial VirusPCR Not Detected (NotDetected); Rhinovirus/Enterovirus PCR Not Detected (NotDetected)
--- NOTE | 2023-08-23 10:18 | History & Physical Report ---
Date of Service August 23, 2023 Assessment & Plan (1) Acute bronchitis with chronic obstructive pulmonary disease (COPD): Plan: Acute on chronic COPD exacerbation Requiring hour-long neb with continued wheezing in ER Increased cough/wheezing at bedside. Denies sputum production. Lactate 2.2,suspect from prolonged hypoxia. Clinically no signs of PNA or bacterial infection, no fever/chills/sweats, do not feel this is sepsis. x-ray. XR ?nodule --> No nodule noted previously, did have 1.6 cm groundglass density at right apex 12/2021 Patient did run out of oxygen last night, normally on baseline 4 L chronically and unclear how long patient had been on 0 L due to tank running out. Respiratory bio fire negative Improved but not back to baseline following hour-long neb, admitted for high risk COPD exacerbation with baseline oxygen greater than 16 hours/day - 2/2 new inspiratory pain and persistent tachycardia --> DD+ --> CTA pending Patient pharmacy confirms she is on dual LAMALABA and ICSLABA treatment, patient is continued on LABA/LAMA/ICS formulary equivalents while inpatient - 5 day Z-pack for COPD exacerbation - Duonebs PRN - Flutter valve, incentive dylan ordered - Goal SpO2 >89%. Do not hyperoxygenate. - CPAP qHS PRN. - VBG with mild respiratory acidosis, hypercapnea. Trended x2. (2) Chest tightness: Plan: Prehospital and ER EKG without ST segment changes or T wave inversions. Sinus tachycardia. We ordered, EKG reviewed in ER however has not viewable i thuy ROSAS for review in EMR, pending download High sensitive troponin negative -Does have reproducible parasternal tenderness on exam, endorses that the pain when she takes a deep breath is different from this reproducible pain Repeat troponin in 6 hours, low suspicion for ACS. Will treat pulmonary exacerbation as above (3) HTN (hypertension): Plan: Did not take morning antihypertensives, was hypertensive in ER BP improving following administration of home diltiazem, metoprolol, losartan Goal SBP less than 180, BP improved on reassessment systolic 160s. Also likely mildly more hypertensive than normal with exacerbation of underlying chronic pain and missing morning pain medicine (4) Chronic kidney disease: Plan: Baseline creatinine around 11 25 Admitting creatinine 0.96, no TATY BMP daily (5) Anemia: Plan: Chronic, normocytic anemia. Hemoglobin baseline around 10, hemoglobin 10.6 on admission with no signs of bleeding Trend daily (6) Hypomagnesemia: Plan: Repleted, trended (7) Chronic pain syndrome: Plan: Patient has worsening of whole body pain without focal exacerbation of pain. She did not take her medications this morning, home oxycodone and bupropion resumed Plan DVT prophylaxis: Lovenox Diet: Heart healthy, DM 2 Disposition: Medical telemetry due to chest pain eval CODE STATUS: Full code History of Present Illness Primary Care Provider: BRET Espinozanon is a 73-year-old female with a past medical history of COPD, thrombocytopenia, diaphragmatic hernia, left peroneal nerve palsy, type II DM, hyperlipidemia, hypertension, chronic pain syndrome who presented to the ER with increased shortness of breath. Patient is normally on 4 L of oxygen and was found to have an NC oxygen tank by EMS. Due to severe shortness of breath which then became associated with chest tightness/pain she was given full dose aspirin by EMS. On ER evaluation patient continues to feel short of breath. She feels her chronic pain all over her body is worse today than normal, did not take her pain medications this morning due to feeling ill. Pt reprots she woke up with increased severity of her chronic pain, increased shortness of breath, and greatly increase wheezing. She is on 4L o2 chronically, thinks her concentrator broke yesterday and when EMS arrived noted that her oxygen had run out. Requried hour long duoneb in ER< thinks this helped a little but still very wheezy and short of breath, pt feels more than her normal baseline. Whole body hurts. +inspiratory pain and chest pain. +tender 'all over'. +Chest wall ttp but 'different' than pain jose alfredo tbrought her in. No fevers, chills, or sweats. No dysuria. No diarrhea/constipation. Denies sputum production. Does not know which inhalers she uses. Does use 3 different inhalers, does not knwo the name of these. 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 Endorses chronic leg swelling; L leg more swollen thatn R. Endorses chronic swelling in legs bilaterally for L generally a little larger. No recent change of calf pain. No injuries/falls/trauma. Contineud tobacco use, not interested in cessation. Reports she does no tneed a patch while inpt, declines. Took no meds this morning Denies syncope/presyncope. No headache. No vision change. Medical History: Reviewed Medications: Reviewed Surgical History: Reviewed Family history: Reviewed Allergies: Reviewed Social History: Continued tobacco use. 1ppd. Declines patch. Denies ETOH use. Code Status: Full COde Allergies Allergy/AdvReac Type Severity Reaction Status Date / Time diflunisal AdvReac Intermediate HEART RACES Verified 12/11/22 22:28 Home Medications Medication Instructions Recorded Confirmed Type albuterol sulfate 90 mcg/actuation 2 puff inhalation Q6 PRN Shortness 08/28/20 08/23/23 History aerosol inhaler (VentCrowdfynd HFA) Of Breath Or Wheezing aspirin 81 mg tablet,delayed 81 mg PO QAM 08/28/20 08/23/23 History release (Uri Low Dose Aspirin) atorvastatin 40 mg tablet (Lipitor) 40 mg PO QAM 08/28/20 08/23/23 History budesonide 0.5 mg/2 mL suspension 0.5 mg inhalation BID 08/28/20 08/23/23 History for nebulization (Pulmicort) metformin 1,000 mg tablet 1,000 mg PO BID 08/28/20 08/23/23 History ipratropium 0.5 mg-albuterol 3 mg 3 ml inhalation QID PRN Shortness 09/25/20 08/23/23 History (2.5 mg base)/3 mL nebulization Of Breath Or Wheezing soln blood sugar diagnostic (OneTouch #50 ea 06/02/21 03/24/22 Rx Verio test strips) blood-glucose meter (OneTouch #1 ea 06/02/21 03/24/22 Rx Verio Meter) lancets 33 gauge (OneTouch Delica #100 ea 06/02/21 03/24/22 Rx Lancets) tiotropium 2.5 mcg-olodaterol 2.5 2 spray inhalation QAM 09/02/21 08/23/23 History mcg/actuation mist for inhalation (Stiolto Respimat) diltiazem HCl 120 mg 120 mg PO DAILY 01/12/22 08/23/23 History capsule,extended release 24 hr folic acid 1 mg tablet 1 mg PO QAM 03/24/22 08/23/23 History losartan 50 mg tablet 50 mg PO QAM 03/24/22 08/23/23 History metoprolol succinate 50 mg 50 mg PO DAILY 12/11/22 08/23/23 History tablet,extended release 24 hr oxycodone 5 mg tablet 5 mg PO TID PRN Pain 12/11/22 08/23/23 History ipratropium 0.5 mg-albuterol 3 mg 3 ml inhalation Q4H PRN shortness 12/13/22 08/23/23 Rx (2.5 mg base)/3 mL nebulization of breath #90 mL soln budesonide-formoterol HFA 160 See Rx Instructions .Route .COMPLEX 08/23/23 08/23/23 History mcg-4.5 mcg/actuation aerosol inhaler (Symbicort) bupropion HCl 150 mg 24 hr tablet, 150 mg PO DAILY 08/23/23 08/23/23 History extended release furosemide 20 mg tablet 20 mg PO DAILY 08/23/23 08/23/23 History rosuvastatin 20 mg tablet 20 mg PO DAILY 08/23/23 08/23/23 History Past Med/Surg History Medical History AAA (abdominal aortic aneurysm) Acute exacerbation of chronic low back pain Acute hypercapnic respiratory failure Acute hypotension Acute kidney injury Acute on chronic respiratory failure with hypoxia Acute on chronic respiratory failure with hypoxia and hypercapnia Acute UTI TATY (acute kidney injury) AMS (altered mental status) Candidiasis of mouth and esophagus Chronic kidney disease, stage 3a Chronic low back pain Chronic pain syndrome COPD (chronic obstructive pulmonary disease) COPD exacerbation Diabetes mellitus Diabetes type 2, uncontrolled Diaphragmatic hernia (10/31/11) DVT prophylaxis History of knee replacement Hyperkalemia Hyperlipidemia Hypertension Left peroneal nerve palsy Respiratory failure Syncope Tobacco abuse Surgical History H/O Achilles tendon repair (~2007) H/O: hysterectomy History of appendectomy History of bilateral oophorectomies History of lithotripsy (~2007) Hx of cholecystectomy Family History Other Family history non-contributory Social History Smoking Status: Current every day smoker Tobacco Type: Cigarettes Cigarettes Per Day: 10; Second Hand Exposure: No; Do You Dip or Chew Tobacco: No; Hx Alcohol Use: No Hx Substance Use: No Preferred Language: Spanish Communication Ability: Effective Sterilization Specialist Required: No Beliefs That Will Affect Care: None marital status: Current Living Situation: Spouse How many Children do You have: 3 Feels Safe at Home: Yes Assistive Devices: Oxygen - Continuous Physical Exam Physical Exam: General: A&Ox3. NAD. Cooperative. HEENT: Atraumatic, normocephalic. Pulm: Diffuse expiratory wheezing, restricted air movement, no rales/crackles. On 4L NC Cardiac: Regulary, tachycardic. -mrg. Radial pulses intact and symmetrical. Chest wall TTP at left parasternal border. Abdominal: Nontender, nondistended, soft. BS present. Ext: 2+ LLE edema, 1+ RLE edema, no calf tenderness. Sensation to soft touch intact in hands and feet. Moves upper and lower extremities equally, endorses diffuse hyperesthesia and pain at baseline currently worse with coughing. Results & Data Results & Data Vital Signs (Past 12 Hours) Vital Signs Temp Pulse Pulse Resp BP Pulse Ox O2 Del Method 08/23/23 09:07 86 93 Nasal Cannula 08/23/23 09:07 93 Nasal Cannula 08/23/23 09:05 99 H 24 93 Nasal Cannula 08/23/23 08:57 100 H 08/23/23 08:51 36.8 C 108 H 24 167/144 H 92 Nasal Cannula O2 Flow Rate 08/23/23 09:07 4 08/23/23 09:07 4 08/23/23 09:05 4 08/23/23 08:57 08/23/23 08:51 4 PG Care Time/CCT Total # of Minutes Spent Total Time Spent with Patient: Total time spent is greater than 50% in coordination of care (as documented) at patient's floor/unit and/or counseling patient: Coding Level of Care Code 72529 INT INP/OBS CARE 3/75MIN Diagnoses Acute bronchitis with chronic obstructive pulmonary disease (COPD) J44.0; J20.9 Chest tightness R07.89 HTN (hypertension) I10 Chronic kidney disease N18.9 Anemia D64.9 Hypomagnesemia E83.42 Chronic pain syndrome G89.4
[2023-08-23] MEDS ORDERED: AZITHROMYCIN 250 MG TAB PO ONE (10:32)
[2023-08-23] MEDS ORDERED: ALBUT/IPRATROP 3MG/0.5MG NEB 3 ML VIAL NEB PRN (10:32)
[2023-08-23 11:21] LABS: D Dimer 560 ug/L FEU (0-500)
[2023-08-23] MEDS ORDERED: MAGNESIUM SULFATE / D5W 1 GM/100 ML BAG IV ONE (11:22)
[2023-08-23] MEDS ORDERED: OPTIRAY 320 125ml IV ONE (11:26)
--- NOTE | 2023-08-23 11:46 | CT Scan Report ---
CT ANGIOGRAPHY OF THE CHEST, PULMONARY EMBOLUS PROTOCOL CLINICAL HISTORY: PE, Dimer+, dyspnea/Tach COMPARISON STUDY: Chest CT January 12, 2022. Chest radiograph performed earlier today. TECHNIQUE: Following IV administration of 76 mL of Optiray, helical axial images of the chest were ob tained utilizing the pulmonary embolus protocol. Maximal intensity projections and sagittal and janna nal reformats were viewed on an independent 3D workstation. IV contrast was administered without com plication. Automated exposure control was utilized for the study. A dose lowering technique was uti lized adhering to the principles of ALARA. CT DOSE: 645.69 mGy.cm FINDINGS: No pulmonary emboli are identified. There is no thoracic aortic dissection. There is moder ate atherosclerotic plaque of the coronary arteries extensive plaque within the thoracic aorta. There is no pericardial effusion. No enlarged thoracic lymph node present. No pneumothorax or pleural effu terrence is noted. There is severe emphysema. There is no consolidation to suggest pneumonia. Bronchial w all thickening is noted, greatest within the lower lobes. No suspicious pulmonary nodules are identif ied. Lungs are suboptimally assessed due to mild respiratory motion artifact. The possible right uppe r lobe nodule on chest radiograph performed earlier today was related to an anterior right third rib healed fracture. Calcified granulomas within the spleen are incidentally noted. IMPRESSION: 1. No pulmonary emboli identified. 2. No consolidation to suggest pneumonia. 3. Severe emphysema. 4. The possible right upper lung nodule on chest radiograph performed earlier today was artifactual a nd due to a healed anterior right third rib fracture. 5. Lower lobe predominant bronchial wall thickening. ACT 112: Negative or not required by law. Electronically signed by: Cheng Arevalo M.D. 08/23/2023 11:44 AM
[2023-08-23] MEDS: oxyCODONE HCL IR 5 MG TAB (IMMEDIATE RELEASE) PO PRN (12:09)
[2023-08-23] MEDS ORDERED: ALBUTEROL HFA 8 GM INHALER INH PRN (14:16)
[2023-08-23] MEDS ORDERED: ACETAMINOPHEN 325 MG TAB PO PRN (14:16)
[2023-08-23] MEDS ORDERED: oxyCODONE HCL IR 5 MG TAB (IMMEDIATE RELEASE) PO PRN (14:16)
[2023-08-23] MEDS ORDERED: GLUCAGON FOR INJ 1 MG VIAL SQ PRN (14:16)
[2023-08-23] MEDS ORDERED: PHARMACY GLYCEMIC MGMT CONSULT PRN (14:16)
[2023-08-23] MEDS ORDERED: DEXTROSE 50% 50 ML SYRINGE IV PRN (14:16)
[2023-08-23] MEDS ORDERED: GLUCOSE 10 TAB/TUBE PO PRN (14:16)
[2023-08-23] MEDS ORDERED: CARBOHYDRATES FOR HYPOGLYCEMIA PO PRN (14:16)
[2023-08-23] MEDS ORDERED: GLUCOSE 40% GEL 15 GM TUBE PO PRN (14:16)
[2023-08-23] MEDS ORDERED: ONDANSETRON INJ 2 MG/ML 2 ML VIAL IV PRN (14:16)
[2023-08-23] MEDS ORDERED: INFLUENZA VACCINE HIGH-DOSE (HD-IIV4) PF 65+ 0.7mL SYR IM ONE (14:41)
[2023-08-23] MEDS ORDERED: LANTUS PER UNIT CHARGE SQ SCH (14:45)
[2023-08-23] MEDS: UMECLIDINIUM BROMIDE 62.5MCG/BLISTER 7 PUFFS/INHALER INH SCH (15:29)
[2023-08-23] MEDS: ENOXAPARIN INJ 40 MG/0.4 ML SYR SQ SCH (15:29)
[2023-08-23] MEDS ORDERED: NALOXONE HCL 0.4 MG/1 ML VIAL/CARP IV PRN (15:31)
[2023-08-23 16:22] LABS: HCO3 VBG 31 mmol/L; PCO2 VBG 65 mmHg (38-50); PO2 VBG 45 mmHg; pH VBG 7.28 (7.36-7.41)
[2023-08-23] MEDS: INSULIN ASPART PER UNIT CHARGE SC SCH ×4 (16:53→23:52)
[2023-08-23 17:22] LABS: Appearance Urine Clear (Clear); Bacteria Urine Automated 1+ (Negative); Bilirubin Urine Negative (Negative); Blood Urine Trace (Negative); Color Urine Yellow; Epithelial Cell Urine Auto >30 /lpf (0-5); Glucose Urine UA 2+ (Negative); Ketones Urine Negative (Negative); Leukocyte Esterase Urine Negative (Negative); Nitrite Urine Positive (Negative); Protein Urine 2+ (Negative); RBC Urine Automated 0-4 /hpf (0-4); Specific Gravity Urine 1.035 (1.000-1.030); Urobilinogen Urine Negative (Negative); pH Urine 6.5 (4.5-7.5)
--- NOTE | 2023-08-23 23:22 | Electrocardiogram Report ---
Test Reason : Blood Pressure : / mmHG Vent. Rate : 111 BPM Atrial Rate : 111 BPM P-R Int : 152 ms QRS Dur : 082 ms QT Int : 334 ms P-R-T Axes : 080 045 077 degrees QTc Int : 454 ms Sinus tachycardia Cannot rule out Anterior infarct (cited on or before 11-DEC-2022) Cannot rule out Inferior infarct Abnormal ECG When compared with ECG of 11-DEC-2022 19:49, No significant change was found Confirmed by Mickey Lobato ([id number]) on 08/23/2023 11:22:02 PM Referred By: REFERRED SELF Confirmed By:Mickey Lobato
[2023-08-23 23:36] LABS: Base Excess VBG 4.8 mEq/L; HCO3 VBG 32 mmol/L; Oxygen Saturation VBG 93.2 %; PCO2 VBG 60 mmHg (38-50); PO2 VBG 68 mmHg; pH VBG 7.34 (7.36-7.41)
[2023-08-24] MEDS: INSULIN ASPART PER UNIT CHARGE SC SCH ×5 (04:00→21:37)
[2023-08-24 07:27] LABS: Basophils # (auto) 0.02 K/uL (0.00-0.20); Basophils % (auto) 0.1 %; Hematocrit (blood only) 34.4 % (37.0-47.0); Hemoglobin 10.4 g/dl (12.0-16.0); Immature Granulocytes # (auto) 0.14 K/uL (0.01-0.20); Lymphocytes # (auto) 0.82 K/uL (1.20-3.40); Lymphocytes % (auto) 5.6 %; Mean Corpuscular Hemoglobin 26.3 pg (25.0-34.0); Mean Corpuscular Hgb Conc 30.2 g/dL (32.0-36.0); Mean Corpuscular Volume 87.1 fL (80.0-100.0); Mean Platelet Volume 10.5 fL (9.4-12.4); Monocytes # (auto) 0.58 K/uL (0.11-0.59); Neutrophils # (auto) 12.96 K/uL (1.40-6.50); Neutrophils % (auto) 89.3 %; Platelet Count 360 K/uL (130-400); RDW Coefficient of Variation 16.7 % (11.5-14.5); RDW Standard Deviation 53.6 fL (36.4-46.3); Red Blood Count 3.95 M/uL (4.20-5.40); White Blood Count 14.52 K/ul (4.8-10.8)
[2023-08-24 07:42] LABS: BUN Creatinine Ratio 21.1 (10-20); Calcium 9.1 mg/dl (8.6-10.3); Creatinine Clr Calc Pharmacy 55.4 ml/min; Est GFR (African American) 74.6 ml/min; Est GFR (Non-African American) 64.3 ml/min; Potassium 5.1 mmol/L (3.5-5.1)
[2023-08-24] MEDS: ASPIRIN 81 MG ECTAB PO SCH (08:22)
[2023-08-24] MEDS: dilTIAZem HCL 120 MG CAPCR PO SCH (08:23)
[2023-08-24] MEDS: ATORVASTATIN 40 MG TAB PO SCH (08:23)
[2023-08-24] MEDS: AZITHROMYCIN 250 MG TAB PO SCH (08:23)
[2023-08-24] MEDS: buPROPion XL 150 MG TABCR PO SCH (08:23)
[2023-08-24] MEDS: FLUTICASONE/VILANTEROL 200/25MCG 14 PUFFS/INHALER INH SCH (08:24)
[2023-08-24] MEDS: ENOXAPARIN INJ 40 MG/0.4 ML SYR SQ SCH (08:24)
[2023-08-24] MEDS: UMECLIDINIUM BROMIDE 62.5MCG/BLISTER 7 PUFFS/INHALER INH SCH (08:25)
[2023-08-24] MEDS: FUROSEMIDE 20 MG TAB PO SCH (08:25)
[2023-08-24] MEDS: FOLIC ACID 1 MG TAB PO SCH (08:25)
[2023-08-24] MEDS: LOSARTAN POTASSIUM 50 MG TAB PO SCH (08:26)
[2023-08-24] MEDS: METOPROLOL SUCC 50MG EXT REL TAB PO SCH (08:26)
[2023-08-24] MEDS ORDERED: AZITHROMYCIN 250 MG TAB PO SCH (09:00)
[2023-08-24] MEDS ORDERED: LANTUS PER UNIT CHARGE SQ SCH (09:00)
[2023-08-24] MEDS: oxyCODONE HCL IR 5 MG TAB (IMMEDIATE RELEASE) PO PRN ×3 (09:06→21:54)
[2023-08-24] MEDS: methylPREDNISolone 40 MG in SYRINGE 0 ML IV SCH ×2 (09:06→16:10)
--- NOTE | 2023-08-24 09:45 | Pharmacy Report ---
Pharmacy Glycemic Short Note 2 - Date of Service August 24, 2023 - Glycemic Short BSG Results (Last 24 hours): 08/23/23 08/23/23 08/23/23 09:00 16:09 16:10 Glucose 235 H POC Glucose 316 H* 327 H* 08/23/23 08/23/23 08/23/23 18:28 18:28 20:16 Glucose POC Glucose 314 H* 310 H* 255 H 08/23/23 08/24/23 08/24/23 23:46 03:55 06:47 Glucose 172 H POC Glucose 263 H 200 H 08/24/23 07:29 Glucose POC Glucose 202 H OUTPATIENT ANTIDIABETIC REGIMEN: * Metformin 1000mg PO BID * A1c 8.5% 12/12/22, updated A1c pending ASSESSMENT: * 73 yo female admitted yesterday with COPD exacerbation, type 2 DM, A1c pending. * Patient received 55 units of insulin yesterday (20 units basal), blood sugars remain elevated, tighten CF/CR & increase basal. * Patient received Solu-Medrol 125mg IV x1 yesterday, then started 40mg IV Q8H today. PLAN FOR INPATIENT GLYCEMIC CONTROL: * Hold outpatient oral diabetes medications * Basal insulin * Lantus 30 units SQ daily * Bolus insulin * NovoLog per scale ACHS or Q6hrs while NPO * Goal Range: Low 110 mg/dL - High 140 mg/dL * Correction Factor: 12 mg/dL/unit * Nutritional / Prandial insulin per carb ratio of 1 unit per 4 grams CHO consumed
[2023-08-24] MEDS ORDERED: INSULIN ASPART PER UNIT CHARGE SC ONE (14:30)
[2023-08-24] MEDS ORDERED: FUROSEMIDE 20 MG TAB PO ONE (15:02)
--- NOTE | 2023-08-24 15:03 | Hospitalist Progress Note ---
Date of Service August 24, 2023 Assessment & Plan (1) Acute on chronic respiratory failure with hypoxia and hypercapnia: Plan: acute component - severe COPD exacerbation chronic component - due to baseline COPD - on 4 L NC O2 ordered BIPAP standing at HS due to borderline low pH and high pCO2 keep o2 sats 88-92% -- no higher treat COPD as below (2) Acute bronchitis with chronic obstructive pulmonary disease (COPD): Plan: COPD flare CT chest w/o infiltrates or pneumonia Send sputum for culture Cont IV steroids - no wean today Schedule duonebs q6h NC O2 - keep sats 90-92% flutter valve, etc finish z-pack - day #2 of such Cont all home inhalers (3) Lower extremity edema: Plan: 2nd to HFpEF? 2nd to medication side effects (ie - diltiazem)? other? check echo, r/o cor pulmonale, pulm HTN, etc she takes chronic lasix at home will give a 2nd dose this afternoon re-eval tomorrow (4) Chest tightness: Plan: HS Trop negative either 2nd COPD or musculoskeletal She did not c/o this today to me (5) HTN (hypertension): Plan: BPs high and labile despite home diltiazem, metoprolol, losartan IV steroids could be making worse Trend the BPs for now (6) Chronic kidney disease: Plan: baseline CrCl 30s to 50s c/w stage 3a BMP am for stability (7) Anemia: Plan: Hemoglobin baseline around 10, hemoglobin 10.6 on admission with no signs of bleeding Trend (8) Hypomagnesemia: Plan: replaced resolved (9) Chronic pain syndrome: Plan: On oxycodone and bupropion PDMP shows chronic oxy dating back several years She states it is for joint pains, etc (10) AAA (abdominal aortic aneurysm): Plan: 3.[address] in 2021. I don't see she has had surveillance since that time. After this admission plug back in with her PCP to obtain repeat imaging. (11) Diabetes type 2, uncontrolled: Plan: previous a1c 8.5% in early 2022 repeat level pending pharmacy is on consult for DM management remains uncontrolled due to steroids appreciate pharmacy assistance Plan DVT prophylaxis: Lovenox will ultimately need PT/OT called pt's at # listed in chair - phone rang and range, did not answer Admission and Anticipated Discharge Date Admission Date: August 23, 2023 Subjective patient lying in bed during the visit she had a severe bronchial cough she said she feels better than yesterday but not back to baseline is coughing up some yellow sputum she admits to feeling tired asks when she can return home ate ok today also c/o LE edema along with abdominal swelling/distension latter present a few months; ankle edema a few weeks Review of Systems Review of Systems: gen - no fevers cv - no chest pain today, mild orthopnea however pulm - cough/congestion/wheezing/dyspnea; did have mild BATES with walking today GI - no abd pain or N/V Physical Exam Physical Exam: gen - looks dyspneic, severe bronchial cough with wheeze, slightly sleepy, ?slightly confused mouth - MMM, no thrush neck - no JVD heart - RRR, s1 s2, no obvious murmur lungs - diffuse wheezing b/l, poor airation, scattered crackles bases, mild tachypnea abd - distended, ?body wall edema or ascites?; BS+; NT ext - 1+ edema b/l, pulses 2+ b/l skin - pallor psych - modestly confused Results & Data Results & Data Vital Signs (Past 12 Hours) Vital Signs Temp Pulse Pulse Resp BP Pulse Ox O2 Del Method 08/24/23 11:41 37.2 C 88 20 159/76 H 92 Nasal Cannula 08/24/23 08:04 79 08/24/23 09:57 Nasal Cannula 08/24/23 08:06 36.6 C 87 22 172/77 H 95 Nasal Cannula O2 Flow Rate 08/24/23 11:41 4 08/24/23 08:04 08/24/23 09:57 4 08/24/23 08:06 4 Laboratory Results Laboratory Results - last 24 hr 08/24/23 08/24/23 06:47 06:47 WBC 14.52 H RBC 3.95 L Hgb 10.4 L Hct 34.4 L MCV 87.1 MCH 26.3 MCHC 30.2 L RDW Std Deviation 53.6 H RDW Coeff of Dorcas 16.7 H Plt Count 360 MPV 10.5 Immature Gran % (Auto) 1.0 Neut % (Auto) 89.3 Lymph % (Auto) 5.6 [place] % (Auto) 4.0 Eos % (Auto) 0.0 Baso % (Auto) 0.1 Neut # (Auto) 12.96 H Lymph # (Auto) 0.82 L [place] # (Auto) 0.58 Eos # (Auto) 0.00 Baso # (Auto) 0.02 Immature Gran # (Auto) 0.14 VBG pH VBG pCO2 VBG pO2 VBG HCO3 VBG O2 Saturation VBG Base Excess Sodium 138 Potassium 5.1 Chloride 102 Carbon Dioxide 33 H Anion Gap 3 BUN 19 Creatinine 0.90 Est Cr Clr Drug Dosing 55.4 Est GFR ( Amer) 74.6 Est GFR (Non-Af Amer) 64.3 BUN/Creatinine Ratio 21.1 H Glucose 172 H POC Glucose Estimat Average Glucose Hemoglobin A1c Calcium 9.1 Magnesium 2.0 Bld Cult ID Panel PCR 08/24/23 08/24/23 08/24/23 06:47 07:29 11:19 WBC RBC Hgb Hct MCV MCH MCHC RDW Std Deviation RDW Coeff of Dorcas Plt Count MPV Immature Gran % (Auto) Neut % (Auto) Lymph % (Auto) [place] % (Auto) Eos % (Auto) Baso % (Auto) Neut # (Auto) Lymph # (Auto) [place] # (Auto) Eos # (Auto) Baso # (Auto) Immature Gran # (Auto) VBG pH VBG pCO2 VBG pO2 VBG HCO3 VBG O2 Saturation VBG Base Excess Sodium Potassium Chloride Carbon Dioxide Anion Gap BUN Creatinine Est Cr Clr Drug Dosing Est GFR ( Amer) Est GFR (Non-Af Amer) BUN/Creatinine Ratio Glucose POC Glucose 202 H 312 H* Estimat Average Glucose Pending Hemoglobin A1c Pending Calcium Magnesium Bld Cult ID Panel PCR 08/24/23 08/24/23 08/24/23 14:37 15:20 16:06 WBC RBC Hgb Hct MCV MCH MCHC RDW Std Deviation RDW Coeff of Dorcas Plt Count MPV Immature Gran % (Auto) Neut % (Auto) Lymph % (Auto) [place] % (Auto) Eos % (Auto) Baso % (Auto) Neut # (Auto) Lymph # (Auto) [place] # (Auto) Eos # (Auto) Baso # (Auto) Immature Gran # (Auto) VBG pH 7.36 VBG pCO2 60 H VBG pO2 44 VBG HCO3 34 VBG O2 Saturation 70.8 VBG Base Excess 6.5 Sodium Potassium Chloride Carbon Dioxide Anion Gap BUN Creatinine Est Cr Clr Drug Dosing Est GFR ( Amer) Est GFR (Non-Af Amer) BUN/Creatinine Ratio Glucose POC Glucose 154 H 72 Estimat Average Glucose Hemoglobin A1c Calcium Magnesium Bld Cult ID Panel PCR PG Care Time/CCT Total # of Minutes Spent Total Time Spent with Patient: Total time spent is greater than 50% in coordination of care (as documented) at patient's floor/unit and/or counseling patient: Coding Level of Care Code 66758 SUB INP/OBS CARE 3/50MIN Diagnoses Acute on chronic respiratory failure with hypoxia and hypercapnia J96.21; J96.22 Acute bronchitis with chronic obstructive pulmonary disease (COPD) J44.0; J20.9 Lower extremity edema R60.0 Chest tightness R07.89 HTN (hypertension) I10 Chronic kidney disease N18.9 Anemia D64.9 Hypomagnesemia E83.42 Chronic pain syndrome G89.4 AAA (abdominal aortic aneurysm) I71.4 Diabetes type 2, uncontrolled E11.65 Glycemic state: with hyperglycemia (11) Diabetes type 2, uncontrolled Glycemic state: with hyperglycemia Qualified Code(s): E11.65 - Type 2 di abetes mellitus with hyperglycemia
[2023-08-24 15:30] LABS: Base Excess VBG 6.5 mEq/L; HCO3 VBG 34 mmol/L; Oxygen Saturation VBG 70.8 %; PCO2 VBG 60 mmHg (38-50); PO2 VBG 44 mmHg; pH VBG 7.36 (7.36-7.41)
[2023-08-24] MEDS: ALBUT/IPRATROP 3MG/0.5MG NEB 3 ML VIAL NEB SCH ×2 (15:44→19:01)
[2023-08-24] MEDS: LANTUS PER UNIT CHARGE SQ SCH (21:40)
[2023-08-25] MEDS ORDERED: INSULIN ASPART PER UNIT CHARGE SC SCH
[2023-08-25 01:21] LABS: A calco-baum cmplx NotReported Not Detected (NotDetected); Bact fragilis Not Reported Not Detected (NotDetected); C auris Not Reported Not Detected (NotDetected); Calbicans Not Reported Not Detected (NotDetected); Candida glabrata Not Reported Not Detected (NotDetected); Candida krusei Not Reported Not Detected (NotDetected); Cneoformans/gatti Not Reported Not Detected (NotDetected); Cparapsilosis Not Reported Not Detected (NotDetected); E cloacae compx Not Reported Not Detected (NotDetected); Efaecalis Not Reported Not Detected (NotDetected); Efaecium Not Reported Not Detected (NotDetected); Enterobacterales Not Reported Not Detected (NotDetected); Escherichia coli Not Reported Not Detected (NotDetected); H influenzae Not Reported Not Detected (NotDetected); K aerogenes Not Reported Not Detected (NotDetected); Koxytoca Not Reported Not Detected (NotDetected); Kpneumoniae grp Not Reported Not Detected (NotDetected); Lmonocyt Not Reported Not Detected (NotDetected); N meningitidis Not Reported Not Detected (NotDetected); P aeruginosa Not Reported Not Detected (NotDetected); Proteus spp Not Reported Not Detected (NotDetected); Salmonella spp Not Reported Not Detected (NotDetected); Smarcescens Not Reported Not Detected (NotDetected); Staph lugdunensis Not Reported Not Detected (NotDetected); Staph spp. Not Reported Not Detected (NotDetected); Staphaureus Not Reported Not Detected (NotDetected); Staphepi Not Reported Not Detected (NotDetected); Stenmaltophilia Not Reported Not Detected (NotDetected); Strep agal(GrpB) Not Reported Not Detected (NotDetected); Strep pneum Not Reported Not Detected (NotDetected); Strep pyog (GrpA) Not Reported Not Detected (NotDetected); Strep spp Not Reported Not Detected (NotDetected)
[2023-08-25] MEDS: methylPREDNISolone 40 MG in SYRINGE 0 ML IV SCH ×3 (01:53→17:29)
[2023-08-25] MEDS ORDERED: INSULIN ASPART PER UNIT CHARGE SC ONE (02:00)
[2023-08-25 07:20] LABS: Hemoglobin 10.8 g/dl (12.0-16.0); Mean Corpuscular Hemoglobin 26.3 pg (25.0-34.0); Mean Corpuscular Hgb Conc 30.9 g/dL (32.0-36.0); Mean Corpuscular Volume 85.2 fL (80.0-100.0); Platelet Count 366 K/uL (130-400); RDW Coefficient of Variation 16.7 % (11.5-14.5); RDW Standard Deviation 51.8 fL (36.4-46.3); Red Blood Count 4.11 M/uL (4.20-5.40); White Blood Count 12.55 K/ul (4.8-10.8)
[2023-08-25] MEDS: ALBUT/IPRATROP 3MG/0.5MG NEB 3 ML VIAL NEB SCH ×4 (07:20→19:47)
[2023-08-25 07:32] LABS: BUN Creatinine Ratio 26.2 (10-20); Calcium 8.9 mg/dl (8.6-10.3); Creatinine Clr Calc Pharmacy 41.4 ml/min; Est GFR (African American) 63.3 ml/min; Est GFR (Non-African American) 54.6 ml/min; Potassium 4.4 mmol/L (3.5-5.1)
[2023-08-25 07:41] LABS: Basophils # (auto) 0.01 K/uL (0.00-0.20); Basophils % (auto) 0.1 %; Immature Granulocytes # (auto) 0.14 K/uL (0.01-0.20); Immature Granulocytes % (auto) 1.1 %; Lymphocytes # (auto) 0.58 K/uL (1.20-3.40); Lymphocytes % (auto) 4.6 %; Monocytes # (auto) 0.22 K/uL (0.11-0.59); Monocytes % (auto) 1.8 %; Neutrophils % (auto) 92.4 %
[2023-08-25] MEDS ORDERED: LANTUS PER UNIT CHARGE SQ SCH (09:00)
[2023-08-25] MEDS ORDERED: VANCOMYCIN CONSULT ACTIVE PRN (09:26)
[2023-08-25] MEDS: oxyCODONE HCL IR 5 MG TAB (IMMEDIATE RELEASE) PO PRN ×2 (09:33→13:28)
[2023-08-25] MEDS: ATORVASTATIN 40 MG TAB PO SCH (09:33)
[2023-08-25] MEDS: ASPIRIN 81 MG ECTAB PO SCH (09:33)
[2023-08-25] MEDS: AZITHROMYCIN 250 MG TAB PO SCH (09:34)
[2023-08-25] MEDS: buPROPion XL 150 MG TABCR PO SCH (09:34)
[2023-08-25] MEDS: ENOXAPARIN INJ 40 MG/0.4 ML SYR SQ SCH (09:34)
[2023-08-25] MEDS: UMECLIDINIUM BROMIDE 62.5MCG/BLISTER 7 PUFFS/INHALER INH SCH (09:34)
[2023-08-25] MEDS: dilTIAZem HCL 120 MG CAPCR PO SCH (09:34)
[2023-08-25] MEDS: FLUTICASONE/VILANTEROL 200/25MCG 14 PUFFS/INHALER INH SCH (09:35)
[2023-08-25] MEDS: FOLIC ACID 1 MG TAB PO SCH (09:35)
[2023-08-25] MEDS: LOSARTAN POTASSIUM 50 MG TAB PO SCH (09:36)
[2023-08-25] MEDS: FUROSEMIDE 20 MG TAB PO SCH (09:36)
[2023-08-25] MEDS: METOPROLOL SUCC 50MG EXT REL TAB PO SCH (09:36)
[2023-08-25] MEDS: INSULIN ASPART PER UNIT CHARGE SC SCH ×4 (09:37→20:47)
[2023-08-25] MEDS: cefTRIAXone SODIUM 2,000 MG in DEXTROSE 5% 50 ML IV SCH (09:58)
[2023-08-25 10:19] LABS: Estimated Average Glucose 226 mg/dl; Hemoglobin A1C 9.5 % (4.5-5.6)
[2023-08-25] MEDS ORDERED: VANCOMYCIN HCL 1,500 MG in SODIUM CHLORIDE 0.9% 500 ML IV ONE (10:30)
--- NOTE | 2023-08-25 14:15 | Pharmacy Report ---
Pharmacy PK ABX Note - Date of Service August 25, 2023 - Assessment and Plan Assessment 73 year old F receiving vancomycin/Rocephin for treatment of bacteremia. Pertinent microbiologic data includes: blood culture growing Gram positive cocci in chains (1 of 2 and only in anaerobic bottle). Day # 1 of antimicrobial therapy. Plan Vancomycin * Loading dose: 1500 mg IV x 1 * Maintenance dose: 1000 mg IV every 18 hours * Regimen is predicted to achieve target AUC/MARLON of 400-600 mg/L.hr * Level to be ordered if continued > 48 hours Pharmacy will continue to follow and will adjust dose/frequency as necessary. Thank you. Pharmacy has transitioned to AUC monitoring for vancomycin. AUC/MARLON is the preferred PK/PD target and is associated with decreased risk of nephrotoxicity compared to traditional trough targets.
--- NOTE | 2023-08-25 14:20 | Pharmacy Report ---
Pharmacy Glycemic Short Note 2 - Date of Service August 25, 2023 - Glycemic Short BSG Results (Last 24 hours): 08/24/23 08/24/23 08/24/23 14:37 16:06 20:23 Glucose POC Glucose 154 H 72 291 H 08/25/23 08/25/23 08/25/23 01:59 06:41 07:26 Glucose 244 H POC Glucose 144 H 269 H 08/25/23 08/25/23 08/25/23 11:03 11:03 11:04 Glucose POC Glucose 416 H* 416 H* 495 H* OUTPATIENT ANTIDIABETIC REGIMEN: * Metformin 1000mg PO BID * A1c 8.5% 12/12/22 --> 9.5% (08/24/23) ASSESSMENT: 08/25/23 * BSGs yesterday were 848-693-77-291 mg/dL. Patient received 123 units (40 units of basal and 83 units of bolus). * Patient continues on Solu-Medrol 40 mg IV q8 hours. * BSGs today are 269-416/495 mg/dL. * For Lantus, will give 36 units this morning (full weight-based stress of 3). Additional 10 units available this evening. This would equal 46 units possible today (increase of almost 20%). * For Novolog, loosen CF as patient overcorrected from lunch to dinner. Tighten CR since this is the primary van cdl driver of elevated BSGs due to steroids. * Today, lunch BSG was significantly elevated because breakfast insulin given @ 0936 and blood sugar checked again ~11. (only 1.5 hours later). Did not give IV insulin bolus to prevent overcorrection. BACKGROUND * 73 yo female admitted yesterday with COPD exacerbation, type 2 DM, A1c pending. * Patient received 55 units of insulin yesterday (20 units basal), blood sugars remain elevated, tighten CF/CR & increase basal. * Patient received Solu-Medrol 125mg IV x1 yesterday, then started 40mg IV Q8H today. PLAN FOR INPATIENT GLYCEMIC CONTROL: * Hold outpatient oral diabetes medications * Basal insulin * Lantus 36 units SQ daily + 10 units SQ HS (if BSG > 180 mg/dL) * Bolus insulin * NovoLog per scale ACHS or Q6hrs while NPO * Goal Range: Low 110 mg/dL - High 140 mg/dL * Correction Factor: 15 mg/dL/unit * Nutritional / Prandial insulin per carb ratio of 1 unit per 2 grams CHO consumed
--- NOTE | 2023-08-25 16:07 | Hospitalist Progress Note ---
Date of Service August 25, 2023 Assessment & Plan (1) Abdominal pain: Plan: epigastric post-prandial, 20-30 min after meals has known AAA she does not have a gall bladder recent LFTs wnl gastritis? PUD? ischemic? pancreatic? other? check CT abd/pelvis with IV contrast add PPI check a lipase level am re-eval once CT is done (2) Positive blood culture: Plan: 1 out of 4 cultures from admission + for GPC in chains obtain repeat blood cultures x 2 start rocephin/vancomycin re-eval once more information is available source? pulmonary?? (although no infiltrates seen on CTA chest) (3) Acute on chronic respiratory failure with hypoxia and hypercapnia: Plan: acute component - severe COPD exacerbation chronic component - due to baseline COPD - on 4 L NC O2 ordered BIPAP standing at HS due to borderline low pH and high pCO2 keep o2 sats 88-92% -- no higher treat COPD as below (4) Acute bronchitis with chronic obstructive pulmonary disease (COPD): Plan: COPD flare CT chest w/o infiltrates or pneumonia Send sputum for culture when able Cont IV steroids - wean from TID dosing to BID dosing (40mg BID) Schedule duonebs q6h NC O2 - keep sats 90-92% flutter valve, etc finish z-pack - day #3 of such Cont all home inhalers (5) Lower extremity edema: Plan: likely 2nd to pulmonary HTN echo today - PA pressure 40-50mmHg; EF preserved; RV function preserved edema improved with extra dose of lasix yesterday cont chronic lasix 20mg daily (6) Chest tightness: Plan: HS Trop negative either 2nd COPD or musculoskeletal She did not c/o this today to me (7) HTN (hypertension): Plan: BPs high and labile despite home diltiazem, metoprolol, losartan IV steroids could be making worse If still high tomorrow would increase metoprolol succ to 75mg daily (8) Chronic kidney disease: Plan: baseline CrCl 30s to 50s c/w stage 3a BMP stable today BMP again in am tomorrow (9) Anemia: Plan: Hemoglobin baseline around 10, hemoglobin 10.6 on admission with no signs of bleeding Hb 10.8 today stable (10) Hypomagnesemia: Plan: replaced resolved (11) Chronic pain syndrome: Plan: On oxycodone and bupropion PDMP shows chronic oxy dating back several years She states it is for joint pains, back pain, etc (12) AAA (abdominal aortic aneurysm): Plan: 3.[address] in 2021. I don't see she has had surveillance since that time. obtaining CT for #1 above will get a good look at AAA as well. (13) Diabetes type 2, uncontrolled: Plan: previous a1c 8.5% in early 2022 repeat a1c 9.5% pharmacy is on consult for DM management remains uncontrolled due to steroids - should improve w/ steroid wean appreciate pharmacy assistance Plan DVT prophylaxis: Lovenox needs PT/OT called pt's - update given to him by phone Admission and Anticipated Discharge Date Admission Date: August 23, 2023 Subjective patient reports her breathing is better today still wheezy, still with BATES (which she thinks is closer to baseline today) - but cough and congestion improved less sputum today her main complaint today is actually her abdomen reports that "for some time" (Months??) she has had post-prandial abdominal pain points to above the umbilicus in the epigastric region as the site of pain pain comes on about 20 minutes post-eating no vomiting does burp/belch and gets heartburn at times has been moving bowels without difficulty; no straining at stool when she gets abd pain she does not vomit she c/o her chronic back pain - asks for oxy for such (already ordered) BSGs have been very high today tele stable overnight Review of Systems Review of Systems: gen - no fevers; tired/weak cv - no chest pain pulm - ongoing cough/congestion/wheezing - but improved somewhat today GI - see HPI Physical Exam Physical Exam: gen - looks very tired but not coughing as much as prior, anxious, a little restless; but oriented mouth - MMM, no thrush neck - no JVD heart - RRR, s1 s2, no obvious murmur lungs - wheezing b/l but improved, airation a little better today; no rales today; mild tachypnea; does get dyspneic with moving around in her bed abd - mildly distended, BS+; no HSM; mildly tender epigastric region ext - no edema b/l, pulses 2+ b/l skin - pallor psych - not confused today Results & Data Results & Data Vital Signs (Past 12 Hours) Vital Signs Temp Pulse Pulse Resp BP Pulse Ox O2 Del Method 08/25/23 14:51 74 18 98 Nasal Cannula 08/25/23 11:29 Nasal Cannula 08/25/23 07:10 72 08/25/23 11:08 76 18 97 Nasal Cannula 08/25/23 08:04 36.7 C 75 20 179/82 H 100 Nebulizer 08/25/23 07:20 77 18 98 Nasal Cannula O2 Flow Rate 08/25/23 14:51 4 08/25/23 11:29 4 08/25/23 07:10 08/25/23 11:08 4 08/25/23 08:04 08/25/23 07:20 4 Laboratory Results Laboratory Results - last 24 hr 08/23/23 08/24/23 08/24/23 09:00 06:47 16:06 WBC RBC Hgb Hct MCV MCH MCHC RDW Std Deviation RDW Coeff of Dorcas Plt Count MPV Immature Gran % (Auto) Neut % (Auto) Lymph % (Auto) Tyler % (Auto) Eos % (Auto) Baso % (Auto) Neut # (Auto) Lymph # (Auto) Tyler # (Auto) Eos # (Auto) Baso # (Auto) Immature Gran # (Auto) Sodium Potassium Chloride Carbon Dioxide Anion Gap BUN Creatinine Est Cr Clr Drug Dosing Est GFR ( Amer) Est GFR (Non-Af Amer) BUN/Creatinine Ratio Glucose POC Glucose 72 Estimat Average Glucose 226 Hemoglobin A1c 9.5 H Calcium Bld Cult ID Panel PCR PCR Panel Negative 08/24/23 08/25/23 08/25/23 20:23 01:59 06:41 WBC 12.55 H RBC 4.11 L Hgb 10.8 L Hct 35.0 L MCV 85.2 MCH 26.3 MCHC 30.9 L RDW Std Deviation 51.8 H RDW Coeff of Dorcas 16.7 H Plt Count 366 MPV 10.0 Immature Gran % (Auto) 1.1 Neut % (Auto) 92.4 Lymph % (Auto) 4.6 Tyler % (Auto) 1.8 Eos % (Auto) 0.0 Baso % (Auto) 0.1 Neut # (Auto) 11.60 H Lymph # (Auto) 0.58 L Tyler # (Auto) 0.22 Eos # (Auto) 0.00 Baso # (Auto) 0.01 Immature Gran # (Auto) 0.14 Sodium Potassium Chloride Carbon Dioxide Anion Gap BUN Creatinine Est Cr Clr Drug Dosing Est GFR ( Amer) Est GFR (Non-Af Amer) BUN/Creatinine Ratio Glucose POC Glucose 291 H 144 H Estimat Average Glucose Hemoglobin A1c Calcium Bld Cult ID Panel PCR 08/25/23 08/25/23 08/25/23 06:41 07:26 11:03 WBC RBC Hgb Hct MCV MCH MCHC RDW Std Deviation RDW Coeff of Dorcas Plt Count MPV Immature Gran % (Auto) Neut % (Auto) Lymph % (Auto) Tyler % (Auto) Eos % (Auto) Baso % (Auto) Neut # (Auto) Lymph # (Auto) Tyler # (Auto) Eos # (Auto) Baso # (Auto) Immature Gran # (Auto) Sodium 137 Potassium 4.4 Chloride 98 Carbon Dioxide 33 H Anion Gap 6 BUN 27 H Creatinine 1.03 Est Cr Clr Drug Dosing 41.4 Est GFR ( Amer) 63.3 Est GFR (Non-Af Amer) 54.6 BUN/Creatinine Ratio 26.2 H Glucose 244 H POC Glucose 269 H 416 H* Estimat Average Glucose Hemoglobin A1c Calcium 8.9 Bld Cult ID Panel PCR 08/25/23 08/25/23 11:03 11:04 WBC RBC Hgb Hct MCV MCH MCHC RDW Std Deviation RDW Coeff of Dorcas Plt Count MPV Immature Gran % (Auto) Neut % (Auto) Lymph % (Auto) Tyler % (Auto) Eos % (Auto) Baso % (Auto) Neut # (Auto) Lymph # (Auto) Tyler # (Auto) Eos # (Auto) Baso # (Auto) Immature Gran # (Auto) Sodium Potassium Chloride Carbon Dioxide Anion Gap BUN Creatinine Est Cr Clr Drug Dosing Est GFR ( Amer) Est GFR (Non-Af Amer) BUN/Creatinine Ratio Glucose POC Glucose 416 H* 495 H* Estimat Average Glucose Hemoglobin A1c Calcium Bld Cult ID Panel PCR PG Care Time/CCT Total # of Minutes Spent Total Time Spent with Patient: Total time spent is greater than 50% in coordination of care (as documented) at patient's floor/unit and/or counseling patient: Coding Level of Care Code 59550 SUB INP/OBS CARE 3/50MIN Diagnoses Abdominal pain R10.9 Positive blood culture R78.81 Acute on chronic respiratory failure with hypoxia and hypercapnia J96.21; J96.22 Acute bronchitis with chronic obstructive pulmonary disease (COPD) J44.0; J20.9 Lower extremity edema R60.0 Chest tightness R07.89 HTN (hypertension) I10 Chronic kidney disease N18.9 Anemia D64.9 Hypomagnesemia E83.42 Chronic pain syndrome G89.4 AAA (abdominal aortic aneurysm) I71.4 Diabetes type 2, uncontrolled E11.65 Glycemic state: with hyperglycemia (13) Diabetes type 2, uncontrolled Glycemic state: with hyperglycemia Qualified Code(s): E11.65 - Type 2 diabetes mellitus with hyperglycemia
[2023-08-25] MEDS ORDERED: OPTIRAY 320 100ml IV ONE (16:37)
--- NOTE | 2023-08-25 16:54 | CT Scan Report ---
CT abd pelvis IV con only CLINICAL HISTORY: upper abdominal pain w/ eating TECHNIQUE: Helical axial images of the abdomen and pelvis were obtained and displayed. Automated dose lowering techniques and/or adjustment according to patient size were utilized for this exam. This e xam was performed with intravenous contrast. CT DOSE: 1139.53 mGy.cm COMPARISON: Comparison is made to CT abdomen pelvis 03/11/2022 FINDINGS: Lower chest: Atelectasis is seen. Emphysema is seen. Liver: Unremarkable. No focal lesions are seen. Gallbladder and biliary tree: Patient is status post cholecystectomy. No intra- or extrahepatic bilia ry ductal dilation. Pancreas: There is dilation of the pancreatic duct with parenchymal atrophy. The duct measures 9 mm, increased from prior exam where it measured 4 mm. Spleen: Calcifications are noted in the spleen compatible with prior granulomatous disease. Adrenals: Adrenal nodules are unchanged from prior exams. Kidneys and ureters: Perinephric stranding is noted bilaterally. Bladder: Gas is seen in the bladder, correlation with recent rotation is recommended. Reproductive organs: Patient is status post hysterectomy. Bowel: Diverticulosis is seen without evidence of diverticulitis. The appendix is not seen. Lymph nodes Retroperitoneal: Unremarkable. Pelvic: Unremarkable. Mesenteric: Unremarkable. Peritoneum: Normal. Vessels: Infrarenal aortic aneurysm measures 41 mm. Atherosclerotic calcifications are seen. Abdominal wall: A fat-containing umbilical hernia is seen. Bones: Degenerative changes in the visualized spine. Grade 1 anterolisthesis seen at L4-L5. Old scler otic density in the right femoral neck likely represents an osteoma. IMPRESSION: 1. No acute abnormalities are seen. 2. There is increased dilation of the pancreatic duct now measuring 9 mm. Radiolucent stone cannot b e entirely excluded, however there is no evidence of pancreatitis. 3. Stable infrarenal aortic aneurysm. 4. Additional findings as above. ACT 112: Negative or not required by law. Electronically signed by: Tsuhar Souza M.D. 08/25/2023 4:52 PM
--- NOTE | 2023-08-25 17:31 | XCELERA ---
[id number]
[2023-08-25] MEDS ORDERED: MoRPHine SULFATE 2 MG/ML CARP IV STA (20:00)
[2023-08-25] MEDS ORDERED: PANTOprazole 40 MG TAB PO STA (20:47)
[2023-08-25] MEDS: LANTUS PER UNIT CHARGE SQ SCH (20:47)
[2023-08-26] MEDS: oxyCODONE HCL IR 5 MG TAB (IMMEDIATE RELEASE) PO PRN ×2 (01:21→08:31)
[2023-08-26] MEDS ORDERED: VANCOMYCIN HCL 1,000 MG in SODIUM CHLORIDE 0.9% 250 ML IV SCH (05:00)
[2023-08-26] MEDS: ALBUT/IPRATROP 3MG/0.5MG NEB 3 ML VIAL NEB SCH ×2 (06:22→11:14)
[2023-08-26 07:21] LABS: Basophils # (auto) 0.01 K/uL (0.00-0.20); Basophils % (auto) 0.1 %; Hemoglobin 10.1 g/dl (12.0-16.0); Immature Granulocytes # (auto) 0.18 K/uL (0.01-0.20); Immature Granulocytes % (auto) 1.4 %; Lymphocytes # (auto) 0.93 K/uL (1.20-3.40); Lymphocytes % (auto) 7.2 %; Mean Corpuscular Hemoglobin 26.4 pg (25.0-34.0); Mean Corpuscular Hgb Conc 30.6 g/dL (32.0-36.0); Mean Corpuscular Volume 86.2 fL (80.0-100.0); Monocytes # (auto) 0.63 K/uL (0.11-0.59); Monocytes % (auto) 4.9 %; Neutrophils # (auto) 11.15 K/uL (1.40-6.50); Neutrophils % (auto) 86.4 %; Platelet Count 353 K/uL (130-400); RDW Coefficient of Variation 16.8 % (11.5-14.5); RDW Standard Deviation 51.9 fL (36.4-46.3); Red Blood Count 3.83 M/uL (4.20-5.40)
[2023-08-26 07:41] LABS: BUN Creatinine Ratio 24.8 (10-20); Calcium 8.5 mg/dl (8.6-10.3); Creatinine Clr Calc Pharmacy 42.7 ml/min; Est GFR (African American) 59.1 ml/min; Potassium 4.2 mmol/L (3.5-5.1)
[2023-08-26] MEDS: ASPIRIN 81 MG ECTAB PO SCH (08:15)
[2023-08-26] MEDS: LOSARTAN POTASSIUM 50 MG TAB PO SCH (08:15)
[2023-08-26] MEDS: dilTIAZem HCL 120 MG CAPCR PO SCH (08:16)
[2023-08-26] MEDS: ENOXAPARIN INJ 40 MG/0.4 ML SYR SQ SCH (08:16)
[2023-08-26] MEDS: AZITHROMYCIN 250 MG TAB PO SCH (08:16)
[2023-08-26] MEDS: buPROPion XL 150 MG TABCR PO SCH (08:16)
[2023-08-26] MEDS: FUROSEMIDE 20 MG TAB PO SCH (08:16)
[2023-08-26] MEDS: UMECLIDINIUM BROMIDE 62.5MCG/BLISTER 7 PUFFS/INHALER INH SCH (08:16)
[2023-08-26] MEDS: FOLIC ACID 1 MG TAB PO SCH (08:16)
[2023-08-26] MEDS: ATORVASTATIN 40 MG TAB PO SCH (08:16)
[2023-08-26] MEDS: FLUTICASONE/VILANTEROL 200/25MCG 14 PUFFS/INHALER INH SCH (08:17)
[2023-08-26] MEDS ORDERED: COUGH DROP (SUGAR FREE) LOZ 24 LOZ/1 BOX BUCCAL ONE (08:29)
[2023-08-26] MEDS: INSULIN ASPART PER UNIT CHARGE SC SCH ×2 (08:32→12:13)
[2023-08-26] MEDS ORDERED: PANTOprazole 40 MG TAB PO SCH (09:00)
[2023-08-26] MEDS ORDERED: METOPROLOL SUCC 25MG EXT REL TAB PO SCH (09:00)
[2023-08-26] MEDS ORDERED: LANTUS PER UNIT CHARGE SQ SCH ×2 (09:00)
[2023-08-26] MEDS ORDERED: methylPREDNISolone 30 MG in SYRINGE 0 ML IV SCH (09:00)
[2023-08-26] MEDS: cefTRIAXone SODIUM 2,000 MG in DEXTROSE 5% 50 ML IV SCH (10:57)
--- NOTE | 2023-08-26 11:06 | Gastrointestinal Consultation ---
Date of Consultation August 26, 2023 Assessment & Plan (1) Dilated pancreatic duct: Patient currently admitted with acute bronchitis with recurrent COPD. GI consulted for months of reported epigastric pain. no pain currently per patient. she had CT with dilated pancreatic duct. LFTs and Lipase unremarkable during this admission. Discussed case with Dr. Pearl who helped advise on plan. - I discussed with the patient about MRCP to further evaluate but she is not interested in any testing. We also discussed EUS to further evaluate but she again does not want any testing. - she tells me she just wants to go home. She tells me she is agreeable to having outpatient work up of this. Will set her up for outpatient EUS. Supervising Physician Co-Signing Physician Notes Patient was discharged home before I could see her. History of Present Illness Reason for Consultation: epigastric pain, dilated pancreatic duct Requesting Physician: Jigar Hein Attending Physician: Jigar Hein History of Present Illness Patient is a 73 year old female with a past medical history of COPD, thrombocytopenia, diaphragmatic hernia, type II DM, hyperlipidemia, hypertension, chronic pain syndrome who presented to the ER with increased shortness of breath. She was admitted with acute bronchitis and recurrent COPD. During her admission she tells me she did have some epigastric abdominal pain which she has had for months. post prandial in nature. She was ordered a CT 08/25 showing increased dilation of the pancreatic duct of 9mm and stone cannot be excluded (previous CT had dilation of 4mm in 02/2022). Lipase 4. recent LFTs wnl. She tells me that currently she does not have any abdominal pain. she tells me that "I just want to go home". rest of GI ros unremarkable. Allergies Allergy/AdvReac Type Severity Reaction Status Date / Time diflunisal AdvReac Intermediate HEART RACES Verified 12/11/22 22:28 Home Medications Medication Instructions Recorded Confirmed Type albuterol sulfate 90 mcg/actuation 2 puff inhalation Q6 PRN Shortness 08/28/20 08/23/23 History aerosol inhaler (Ventolin HFA) Of Breath Or Wheezing aspirin 81 mg tablet,delayed 81 mg PO QAM 08/28/20 08/23/23 History release (Uri Low Dose Aspirin) atorvastatin 40 mg tablet (Lipitor) 40 mg PO QAM 08/28/20 08/23/23 History budesonide 0.5 mg/2 mL suspension 0.5 mg inhalation BID 08/28/20 08/23/23 History for nebulization (Pulmicort) metformin 1,000 mg tablet 1,000 mg PO BID 08/28/20 08/23/23 History ipratropium 0.5 mg-albuterol 3 mg 3 ml inhalation QID PRN Shortness 09/25/20 08/23/23 History (2.5 mg base)/3 mL nebulization Of Breath Or Wheezing soln blood sugar diagnostic ([email or web address] #50 ea 06/02/21 03/24/22 Rx Verio test strips) blood-glucose meter ([email or web address] #1 ea 06/02/21 03/24/22 Rx Verio Meter) lancets 33 gauge (OneTouch Delica #100 ea 06/02/21 03/24/22 Rx Lancets) tiotropium 2.5 mcg-olodaterol 2.5 2 spray inhalation QAM 09/02/21 08/23/23 History mcg/actuation mist for inhalation (Stiolto Respimat) diltiazem HCl 120 mg 120 mg PO DAILY 01/12/22 08/23/23 History capsule,extended release 24 hr folic acid 1 mg tablet 1 mg PO QAM 03/24/22 08/23/23 History losartan 50 mg tablet 50 mg PO QAM 03/24/22 08/23/23 History metoprolol succinate 50 mg 50 mg PO DAILY 12/11/22 08/23/23 History tablet,extended release 24 hr oxycodone 5 mg tablet 5 mg PO TID PRN Pain 12/11/22 08/23/23 History ipratropium 0.5 mg-albuterol 3 mg 3 ml inhalation Q4H PRN shortness 12/13/22 08/23/23 Rx (2.5 mg base)/3 mL nebulization of breath #90 mL soln budesonide-formoterol HFA 160 See Rx Instructions .Route .COMPLEX 08/23/23 08/23/23 History mcg-4.5 mcg/actuation aerosol inhaler (Symbicort) bupropion HCl 150 mg 24 hr tablet, 150 mg PO DAILY 08/23/23 08/23/23 History extended release furosemide 20 mg tablet 20 mg PO DAILY 08/23/23 08/23/23 History rosuvastatin 20 mg tablet 20 mg PO DAILY 08/23/23 08/23/23 History azithromycin 250 mg tablet 250 mg PO QAM #2 tabs 08/26/23 Rx pantoprazole 40 mg tablet,delayed 40 mg PO QAM #30 tabs 08/26/23 Rx release prednisone 10 mg tablet See Rx Instructions .Route 08/26/23 Rx .COMPLEX #20 tabs Patient History Medical History (Updated 08/26/23 @ 11:00 by Yogesh Johnson PA-C) AAA (abdominal aortic aneurysm) Abdominal pain Acute exacerbation of chronic low back pain Acute hypercapnic respiratory failure Acute hypotension Acute kidney injury Acute on chronic respiratory failure with hypoxia Acute on chronic respiratory failure with hypoxia and hypercapnia Acute UTI TATY (acute kidney injury) AMS (altered mental status) Candidiasis of mouth and esophagus Chronic kidney disease, stage 3a Chronic low back pain Chronic pain syndrome COPD (chronic obstructive pulmonary disease) COPD exacerbation Diabetes mellitus Diabetes type 2, uncontrolled Diaphragmatic hernia (10/31/11) DVT prophylaxis History of knee replacement Hyperkalemia Hyperlipidemia Hypertension Left peroneal nerve palsy Respiratory failure Syncope Tobacco abuse Surgical History H/O Achilles tendon repair (~2007) H/O: hysterectomy History of appendectomy History of bilateral oophorectomies History of lithotripsy (~2007) Hx of cholecystectomy Family History Other Family history non-contributory Social History Smoking Status: Current every day smoker Tobacco Type: Cigarettes Cigarettes Per Day: 10; Second Hand Exposure: Yes; Do You Dip or Chew Tobacco: No; Hx Alcohol Use: No Hx Substance Use: No Preferred Language: Arabic Communication Ability: Effective Hat Maker Required: No Beliefs That Will Affect Care: None marital status: Current Living Situation: Alone How many Children do You have: 3 Feels Safe at Home: Yes Assistive Devices: Nebulizer, Oxygen - Continuous, Walker and Wheelchair Review of Systems Review of Systems: All systems reviewed & are unremarkable except as noted in HPI & below Physical Exam Constitutional: WD/WN, vitals as above Respiratory: normal respiratory effort, lungs clear to auscultation Cardiovascular: RRR, no murmur, no edema Gastrointestinal (Abdomen): normal bowel sounds, soft, nontender, no hepatosplenomegaly Psychiatric: Orientation: alert and oriented x 3 Results & Data Vital Signs (Past 12 Hours) Vital Signs Temp Pulse Pulse Resp BP Pulse Ox O2 Del Method 08/26/23 08:14 Nasal Cannula 08/26/23 07:36 98.2 F 77 20 187/82 H 91 Nasal Cannula 08/26/23 06:22 72 20 93 Nasal Cannula 08/26/23 03:00 98.2 F 74 16 160/69 H 89 L Nasal Cannula 08/26/23 01:31 67 08/25/23 23:00 98.1 F 70 16 180/76 H 97 Nasal Cannula O2 Flow Rate 08/26/23 08:14 4 08/26/23 07:36 4 08/26/23 06:22 4 08/26/23 03:00 08/26/23 01:31 08/25/23 23:00 PG Care Time/CCT Total # of Minutes Spent Total Time Spent with Patient: Total time spent is greater than 50% in coordination of care (as documented) at patient's floor/unit and/or counseling patient: Coding Level of Care Code 21758 INT INP/OBS CARE 1/40MIN Diagnoses Dilated pancreatic duct K86.89 Time Spent (min) 40
--- NOTE | 2023-08-26 11:27 | Pharmacy Report ---
Pharmacy Glycemic Short Note 2 - Date of Service August 26, 2023 - Glycemic Short BSG Results (Last 24 hours): 08/25/23 08/25/23 08/26/23 16:25 20:35 06:31 Glucose 221 H POC Glucose 117 H 290 H 08/26/23 08/26/23 07:08 11:10 Glucose POC Glucose 242 H 254 H OUTPATIENT ANTIDIABETIC REGIMEN: * Metformin 1000mg PO BID * A1c 8.5% 12/12/22 --> 9.5% (08/24/23) ASSESSMENT: 08/26/23 * Patient received total of 151 units of insulin yesterday, of which 46 units were basal insulin * Fasting BSG elevated at 221 mg/dL - will give 45 units of basal this AM and continue with scale for HS 0-10 units. Steroids now decreasing today, anticipate insulin needs to decrease and BSGs to improve * Plan to loosen CF/CR with lunch time 08/25/23 * BSGs yesterday were 803-904-64-291 mg/dL. Patient received 123 units (40 units of basal and 83 units of bolus). * Patient continues on Solu-Medrol 40 mg IV q8 hours. * BSGs today are 269-416/495 mg/dL. * For Lantus, will give 36 units this morning (full weight-based stress of 3). Additional 10 units available this evening. This would equal 46 units possible today (increase of almost 20%). * For Novolog, loosen CF as patient overcorrected from lunch to dinner. Tighten CR since this is the primary armored car guard and driver of elevated BSGs due to steroids. * Today, lunch BSG was significantly elevated because breakfast insulin given @ 0936 and blood sugar checked again ~11. (only 1.5 hours later). Did not give IV insulin bolus to prevent overcorrection. BACKGROUND * 73 yo female admitted yesterday with COPD exacerbation, type 2 DM, A1c pending. * Patient received 55 units of insulin yesterday (20 units basal), blood sugars remain elevated, tighten CF/CR & increase basal. * Patient received Solu-Medrol 125mg IV x1 yesterday, then started 40mg IV Q8H today. PLAN FOR INPATIENT GLYCEMIC CONTROL: * Hold outpatient oral diabetes medications * Basal insulin * Lantus 45 units SQ daily + 10 units SQ HS (if BSG > 180 mg/dL) * Bolus insulin * NovoLog per scale ACHS or Q6hrs while NPO * Goal Range: Low 110 mg/dL - High 140 mg/dL * Correction Factor: 15 mg/dL/unit * Nutritional / Prandial insulin per carb ratio of 1 unit per 3 grams CHO consumed
--- NOTE | 2023-08-27 09:20 | Discharge Summary ---
Date of Service August 26, 2023 Admission HPI Per Admitting Provider Jon is a 73-year-old female with a past medical history of COPD, thrombocytopenia, diaphragmatic hernia, left peroneal nerve palsy, type II DM, hyperlipidemia, hypertension, chronic pain syndrome who presented to the ER with increased shortness of breath. Patient is normally on 4 L of oxygen and was found to have an NC oxygen tank by EMS. Due to severe shortness of breath which then became associated with chest tightness/pain she was given full dose aspirin by EMS. On ER evaluation patient continues to feel short of breath. She feels her chronic pain all over her body is worse today than normal, did not take her pain medications this morning due to feeling ill. Pt reprots she woke up with increased severity of her chronic pain, increased shortness of breath, and greatly increase wheezing. She is on 4L o2 chronically, thinks her concentrator broke yesterday and when EMS arrived noted that her oxygen had run out. Requried hour long duoneb in ER< thinks this helped a little but still very wheezy and short of breath, pt feels more than her normal baseline. Whole body hurts. +inspiratory pain and chest pain. +tender 'all over'. +Chest wall ttp but 'different' than pain jose alfredo tbrought her in. No fevers, chills, or sweats. No dysuria. No diarrhea/constipation. Denies sputum production. Does not know which inhalers she uses. Does use 3 different inhalers, does not knwo the name of these. 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 Endorses chronic leg swelling; L leg more swollen thatn R. Endorses chronic swelling in legs bilaterally for L generally a little larger. No recent change of calf pain. No injuries/falls/trauma. Contineud tobacco use, not interested in cessation. Reports she does no tneed a patch while inpt, declines. Took no meds this morning Denies syncope/presyncope. No headache. No vision change. Medical History: Reviewed Medications: Reviewed Surgical History: Reviewed Family history: Reviewed Allergies: Reviewed Social History: Continued tobacco use. 1ppd. Declines patch. Denies ETOH use. Code Status: Full COde Discharge Data Allergies Allergy/AdvReac Type Severity Reaction Status Date / Time diflunisal AdvReac Intermediate HEART RACES Verified 12/11/22 22:28 Consultations 08/23/23 10:16 ED Decision to Admit Stat 08/26/23 10:28 Consult Gastroenterology Routine Ordered Studies 08/23/23 11:13 CT angio chest PE protocol Stat 08/25/23 16:06 CT Abd and Pelvis [CT abd pelvis IV con only] Urgent Diabetes Follow up Diabetes Follow-up Needed for HgbA1c >9% Hospital Course (1) Abdominal pain: epigastric post-prandial, 20-30 min after meals has known AAA she does not have a gall bladder recent LFTs wnl gastritis? PUD? ischemic? pancreatic? other? check CT abd/pelvis with IV contrast add PPI check a lipase level am re-eval once CT is done (2) Positive blood culture: 1 out of 4 cultures from admission + for GPC in chains obtain repeat blood cultures x 2 start rocephin/vancomycin re-eval once more information is available source? pulmonary?? (although no infiltrates seen on CTA chest) (3) Acute on chronic respiratory failure with hypoxia and hypercapnia: acute component - severe COPD exacerbation chronic component - due to baseline COPD - on 4 L NC O2 ordered BIPAP standing at HS due to borderline low pH and high pCO2 keep o2 sats 88-92% -- no higher treat COPD as below (4) Acute bronchitis with chronic obstructive pulmonary disease (COPD): COPD flare CT chest w/o infiltrates or pneumonia Send sputum for culture when able Cont IV steroids - wean from TID dosing to BID dosing (40mg BID) Schedule duonebs q6h NC O2 - keep sats 90-92% flutter valve, etc finish z-pack - day #3 of such Cont all home inhalers (5) Lower extremity edema: likely 2nd to pulmonary HTN echo today - PA pressure 40-50mmHg; EF preserved; RV function preserved edema improved with extra dose of lasix yesterday cont chronic lasix 20mg daily (6) Chest tightness: HS Trop negative either 2nd COPD or musculoskeletal She did not c/o this today to me (7) HTN (hypertension): BPs high and labile despite home diltiazem, metoprolol, losartan IV steroids could be making worse If still high tomorrow would increase metoprolol succ to 75mg daily (8) Chronic kidney disease: baseline CrCl 30s to 50s c/w stage 3a BMP stable today BMP again in am tomorrow (9) Anemia: Hemoglobin baseline around 10, hemoglobin 10.6 on admission with no signs of bleeding Hb 10.8 today stable (10) Hypomagnesemia: replaced resolved (11) Chronic pain syndrome: On oxycodone and bupropion PDMP shows chronic oxy dating back several years She states it is for joint pains, back pain, etc (12) AAA (abdominal aortic aneurysm): 3.[address] in 2021. I don't see she has had surveillance since that time. obtaining CT for #1 above will get a good look at AAA as well. (13) Diabetes type 2, uncontrolled: previous a1c 8.5% in early 2022 repeat a1c 9.5% pharmacy is on consult for DM management remains uncontrolled due to steroids - should improve w/ steroid wean appreciate pharmacy assistance Plan DVT prophylaxis: Lovenox needs PT/OT called pt's - update given to him by phone Discharge Plan Discharge Items Patient Disposition: Home - Home Health Services Reason For Visit: AOC COPD, CHEST PAIN Discharge Diagnosis: chest pain Condition on Discharge: Serious Activity: Resume your previous activity Non-emergency contact: Primary Care Provider Call non-emergency contact if: you have any medication questions Follow-up/Referrals: Yogesh Johnson PA-C [Physician Mathematical Engineer] - 09/02/23 1:00 pm (Follow up scheduled on 09/02/23 @ 1 pm) Valery Payan CRNP [Outside Practitioners] - 09/04/23 11:00 am (Follow up scheduled on 09/04/23 @ 11am with Dr. Peña) Diet: Regular Addtl Attending Provider Instructions: recommend followup with PCP within 1-2 weeks Recommend followup with GI. Pending Studies at Discharge: No Stand-Alone Forms: My [facility] [employer], Smoking Cessation Medications and DC Order Prescriptions: New azithromycin 250 mg Tablet 250 mg PO QAM Qty: 2 0RF pantoprazole 40 mg Tablet,Delayed Release (Dr/Ec) 40 mg PO QAM Qty: 30 0RF prednisone 10 mg tablet See Rx Instructions .ROUTE .COMPLEX Qty: 20 0RF Rx Instructions: Once daily, By mouth: Take 4 tablets for 2 days; then 3 tablets for 2 days 2 tablets for 2 days 1 tablet for 2 days. Continued ipratropium-albuterol 0.5 mg-3 mg(2.5 mg base)/3 mL solution for nebulization 3 ml INHALATION QID PRN (Reason: Shortness Of Breath Or Wheezing) atorvastatin [Lipitor] 40 mg tablet 40 mg PO QAM budesonide [Pulmicort] 0.5 mg/2 mL suspension for nebulization 0.5 mg inhalation BID aspirin [Uri Low Dose Aspirin] 81 mg Tablet,Delayed Release (Dr/Ec) 81 mg PO QAM albuterol sulfate [Ventolin HFA] 90 mcg/actuation HFA aerosol inhaler 2 puff INHALATION Q6 PRN (Reason: Shortness Of Breath Or Wheezing) metformin 1,000 mg tablet 1,000 mg PO BID (DME) blood-glucose meter [[employer] Verio Meter[place] [facility] [place] .ROUTE .MEDSUPPLY Qty: 1 0RF Rx Instructions: to test blood sugar 1-2 times/day (DME) OneTouch Verio test strips Strip See Rx Instructions .ROUTE .MEDSUPPLY Qty: 50 3RF Rx Instructions: test blood sugar 1-2 times per day (DME) lancets [[employer] Media[employer] Delica Lancets] 33 gauge [facility] [place] Rx Instructions .ROUTE .MEDSUPPLY Qty: 100 3RF Rx Instructions: test sugar 1-2 times per day losartan 50 mg tablet 50 mg PO QAM folic acid 1 mg tablet 1 mg PO QAM furosemide 20 mg tablet 20 mg PO DAILY rosuvastatin 20 mg tablet 20 mg PO DAILY bupropion HCl 150 mg tablet extended release 24 hr 150 mg PO DAILY budesonide-formoterol [Symbicort] 160-4.5 mcg/actuation HFA aerosol inhaler See Rx Instructions .ROUTE .COMPLEX Rx Instructions: as directed Stiolto Respimat 2.5-2.5 mcg/actuation mist 2 spray INHALATION QAM diltiazem HCl 120 mg capsule,extended release 24hr 120 mg PO DAILY metoprolol succinate 50 mg tablet extended release 24 hr 50 mg PO DAILY oxycodone 5 mg tablet 5 mg PO TID PRN (Reason: Pain) ipratropium-albuterol 0.5 mg-3 mg(2.5 mg base)/3 mL solution for nebulization 3 ml inhalation Q4H PRN (Reason: shortness of breath) Qty: 90 0RF Rx Instructions: until breathing returns to target peak flow/parameters Discharge Orders: Discharge Order (Routine); Ordered 08/26/23 Ordered By: Jigar Cobb/Other Patient Handouts: High Blood Sugar (Hyperglycemia), Managing Type 2 Diabetes Admission Data Admit Date/Time: 08/23/23 10:55 Attending Provider: Jigar Hein Admit Provider: Mj Ann Primary Care Provider: Rosi Borges Other Providers: Mj Ann ; Wyatt Pearl Other Interventions: Discharge Summary Assessment (RN) Last Done: 08/26/23 12:15 Coding Diagnoses Abdominal pain R10.9 Positive blood culture R78.81 Acute on chronic respiratory failure with hypoxia and hypercapnia J96.21; J96.22 Acute bronchitis with chronic obstructive pulmonary disease (COPD) J44.0; J20.9 Lower extremity edema R60.0 Chest tightness R07.89 HTN (hypertension) I10 Chronic kidney disease N18.9 Anemia D64.9 Hypomagnesemia E83.42 Chronic pain syndrome G89.4 AAA (abdominal aortic aneurysm) I71.4 Diabetes type 2, uncontrolled E11.65 Glycemic state: with hyperglycemia
== END 2023-08-26 13:25 | disposition home health service (06) | DRG 190 ==
LOC: ED 08:41 → SUATTDRO 10:55 → 2S 10:55

== ENCOUNTER 2023-09-05 03:20 | Inpatient (IN) ==
[2023-09-05] MEDS ORDERED: SODIUM CHLORIDE 0.9% 1,000 ML IV STA (03:23)
[2023-09-05] MEDS ORDERED: MoRPHine SULFATE 4 MG/ML 1 ML CARP\\VIAL ONE (03:31)
[2023-09-05] MEDS ORDERED: ONDANSETRON INJ 2 MG/ML 2 ML VIAL ONE (03:31)
[2023-09-05] MEDS ORDERED: dilTIAZem HCl 5 MG/ML 5 ML VIAL IV ONE (03:32)
[2023-09-05] MEDS ORDERED: dilTIAZem HCl 5 MG/ML 5 ML VIAL IV STA (03:37)
--- NOTE | 2023-09-05 03:38 | Emergency Department Note ---
Impression & Plan Atrial fibrillation with rapid ventricular response ADMIT ED Provider Note HPI: History obtained from patient. The patient is a 73-year-old female with history of chronic pain, COPD on 4 L nasal cannula oxygen at baseline, who presents emergency department with chief complaint of upper chest discomfort. Patient arrives via EMS. Patient states that her symptoms started at some point today but she cannot remember exactly when. On arrival here to the ED the patient is noted to be tachycardic in the 160s on my initial evaluation with apparent atrial fibrillation with RVR on the monitor. Patient arrives with stable blood pressure. Patient complains of some dyspnea in addition to her chest pain. Patient is saturating well on her baseline 4 L nasal cannula oxygen on arrival. ROS: - Per HPI Differential Diagnosis: Atrial fibrillation with RVR, SVT, ventricular tachycardia, acute CHF exacerbation, COPD exacerbation, acute coronary syndrome, pulmonary embolism, aortic dissection, acute pancreatitis, amongst other potential pathologies. *Outpatient medications and allergy history reviewed. *Pertinent external medical records reviewed PE: General: Alert, morbidly obese, anxious appearing HEENT: Normocephalic, trachea midline Eyes: Extraocular eye movement is intact, no scleral erythema Pulmonary: Coarse bilateral breath sounds, expiratory wheezing bilaterally Cardio: Tachycardic rate with irregular rhythm GI: Abdomen is soft to palpation : No suprapubic tenderness MSK: No evidence of trauma or malformation of the extremities, no edema Skin: No evidence of rash Neuro: Alert, no focal deficits Psychiatric: Cooperative INDEPENDENT INTERPRETATIONS: director of research center: (As interpreted by myself): - An order was placed for continuous cardiac monitoring - Patient was noted to be in atrial fibrillation with rate of 162 EKG: (As interpreted by myself): Rate: 168 Rhythm: Atrial fibrillation with RVR Intervals: Within normal limits ST changes: No ST elevation Time: 0330 EKG #2: (As interpreted by myself): Rate: 101 Rhythm: Atrial fibrillation Intervals: Within normal limits ST changes: No ST elevation Time: 0649 Interventions provided in ED: -IV fluid bolus, IV morphine, IV Zofran, IV metoprolol, IV diltiazem bolus and drip Medical Decision Making: Shortly after the patient arrived IV was established lab work ordered, patient was maintained on lumber sorter machine. Patient was given IV fluid bolus as well as IV diltiazem for her tachycardia consistent with atrial fibrillation with RVR on the monitor. Lab work shows a leukocytosis of 16.5, patient has recently been on steroid therapy, hemoglobin is stable at 10.2, platelet count is slightly elevated at 453. CMP does not show any critical findings, glucose is noted to be elevated at 553 without any evidence of DKA, patient was ordered 5 units of IV insulin. Magnesium is noted to be low as well at 1.6 for which the patient was ordered IV repletion. Bilirubin is normal, there is a mild transaminitis with AST of 78 and ALT of 150, alk phos 157. Troponin is negative x1. EKG does not show any acute ischemic changes, low suspicion for ACS at this time. Patient's tachycardia did downtrend here in the ED with the above interventions including IV diltiazem bolus and drip, metoprolol via IV, patient was given morphine for pain with good improvement in her anxiety and pain. CT imaging of the chest with angiography as well as CT imaging of the abdomen pelvis with IV contrast was obtained. CT imaging does not show any evidence of pulmonary embolism, no evidence of aortic dissection, there is evidence of mucous plugging and nonspecific inflammatory changes consistent with pneumonitis either infectious or inflammatory. No evidence of any acute surgical abnormality is noted within the abdomen or pelvis. On my reassessment following the above interventions, patient states that her chest pain is improved. Patient's heart rate is under better control, she is resting comfortably in bed with heart rate in the 80s however she does remain in atrial fibrillation. I discussed all the above findings with the patient she is in agreement for admission. Patient was started on IV ceftriaxone as well as IV azithromycin over concern for possible pulmonary infectious process with leukocytosis. Blood cultures were ordered in the ED. I discussed the patient's presentation with the on-call hospitalist, Dr. Witt, and the patient was placed for admission in stable condition. Consultants/Discussions held with other healthcare providers: -Hospitalist, Dr. Witt Disposition discussion held by myself with: -Patient * CRITICAL CARE TIME: (54) minutes -Stabilization of tachyarrhythmia/atrial fibrillation with RVR requiring multiple IV rate control medications, time spent at the bedside, interpretation of diagnostic studies including multiple EKGs, discussion with other healthcare providers and arrangement of admission Diagnosis: 1. New onset atrial fibrillation with RVR, acute 2. Leukocytosis, acute 3. Hyperglycemia, acute 4. Elevated creatinine, mild, acute 5. Hypomagnesemia, acute 6. Chest pain, acute, nonspecific Disposition: Admission Charlie Davis DO Emergency Medicine Past Med/Surg History Medical History (Updated 09/05/23 @ 07:41 by Charlie Davis DO) AAA (abdominal aortic aneurysm) Abdominal pain Acute exacerbation of chronic low back pain Acute hypercapnic respiratory failure Acute hypotension Acute kidney injury Acute on chronic respiratory failure with hypoxia Acute on chronic respiratory failure with hypoxia and hypercapnia Acute UTI TATY (acute kidney injury) AMS (altered mental status) Candidiasis of mouth and esophagus Chronic kidney disease, stage 3a Chronic low back pain Chronic pain syndrome COPD (chronic obstructive pulmonary disease) COPD exacerbation Diabetes mellitus Diabetes type 2, uncontrolled Diaphragmatic hernia (10/31/11) DVT prophylaxis History of knee replacement Hyperkalemia Hyperlipidemia Hypertension Left peroneal nerve palsy Respiratory failure Syncope Tobacco abuse Surgical History H/O Achilles tendon repair (~2007) H/O: hysterectomy History of appendectomy History of bilateral oophorectomies History of lithotripsy (~2007) Hx of cholecystectomy Family History Other Family history non-contributory Social History Smoking Status: Current every day smoker Tobacco Type: Cigarettes Cigarettes Per Day: 10; Second Hand Exposure: Yes; Do You Dip or Chew Tobacco: No; Hx Alcohol Use: No Hx Substance Use: No Preferred Language: Swiss Communication Ability: Effective Bi Tester Required: No Beliefs That Will Affect Care: None marital status: Current Living Situation: Alone How many Children do You have: 3 Feels Safe at Home: Yes Assistive Devices: Nebulizer, Oxygen - Continuous, Walker and Wheelchair Allergies Allergies Allergy/AdvReac Type Severity Reaction Status Date / Time diflunisal AdvReac Intermediate HEART RACES Verified 12/11/22 22:28 Home Meds Home Medications Medication Instructions Recorded Confirmed albuterol sulfate 90 mcg/actuation 2 puff inhalation Q6 PRN Shortness 08/28/20 08/23/23 aerosol inhaler (Ventolin HFA) Of Breath Or Wheezing aspirin 81 mg tablet,delayed 81 mg PO QAM 08/28/20 08/23/23 release (Uri Low Dose Aspirin) atorvastatin 40 mg tablet (Lipitor) 40 mg PO QAM 08/28/20 08/23/23 budesonide 0.5 mg/2 mL suspension 0.5 mg inhalation BID 08/28/20 08/23/23 for nebulization (Pulmicort) metformin 1,000 mg tablet 1,000 mg PO BID 08/28/20 08/23/23 ipratropium 0.5 mg-albuterol 3 mg 3 ml inhalation QID PRN Shortness 09/25/20 08/23/23 (2.5 mg base)/3 mL nebulization Of Breath Or Wheezing soln tiotropium 2.5 mcg-olodaterol 2.5 2 spray inhalation QAM 09/02/21 08/23/23 mcg/actuation mist for inhalation (Stiolto Respimat) diltiazem HCl 120 mg 120 mg PO DAILY 01/12/22 08/23/23 capsule,extended release 24 hr folic acid 1 mg tablet 1 mg PO QAM 03/24/22 08/23/23 losartan 50 mg tablet 50 mg PO QAM 03/24/22 08/23/23 metoprolol succinate 50 mg 50 mg PO DAILY 12/11/22 08/23/23 tablet,extended release 24 hr oxycodone 5 mg tablet 5 mg PO TID PRN Pain 12/11/22 08/23/23 budesonide-formoterol HFA 160 See Rx Instructions .Route .COMPLEX 08/23/23 08/23/23 mcg-4.5 mcg/actuation aerosol inhaler (Symbicort) bupropion HCl 150 mg 24 hr tablet, 150 mg PO DAILY 08/23/23 08/23/23 extended release furosemide 20 mg tablet 20 mg PO DAILY 08/23/23 08/23/23 rosuvastatin 20 mg tablet 20 mg PO DAILY 08/23/23 08/23/23 Previous Rx's Medication Instructions Recorded blood sugar diagnostic (SpacenetTouch #50 ea 06/02/21 Verio test strips) blood-glucose meter (CitizenHawkuch #1 ea 06/02/21 Verio Meter) lancets 33 gauge (SpacenetTouch Delica #100 ea 06/02/21 Lancets) ipratropium 0.5 mg-albuterol 3 mg 3 ml inhalation Q4H PRN shortness 12/13/22 (2.5 mg base)/3 mL nebulization of breath #90 mL soln azithromycin 250 mg tablet 250 mg PO QAM #2 tabs 08/26/23 pantoprazole 40 mg tablet,delayed 40 mg PO QAM #30 tabs 08/26/23 release prednisone 10 mg tablet See Rx Instructions .Route 08/26/23 .COMPLEX #20 tabs Results & Data (ED) Vital Signs Vital Signs - 24 hr 09/05/23 03:31 09/05/23 03:31 09/05/23 03:40 Temperature 37.0 C Temperature Source Oral Pulse Rate 117 H Pulse Rate from SpO2 Sensor Pulse Rhythm Regular Pulse Strength Normal Respiratory Rate 24 Respiratory Effort / Characteristics Non-Labored Spontaneous Non-Labored Labored Respiratory Depth Normal Normal Respiratory Pattern Regular Blood Pressure 140/114 H Blood Pressure Mean 122 Blood Pressure Position Lying Pulse Oximetry 93 93 Oxygen Delivery Method Nasal Cannula Nasal Cannula Nasal Cannula Oxygen Flow Rate 4 2 4 Sepsis Recent Fever Within 48 Hours No Sepsis New/Unexplained Change in Mental Status N/A Sepsis Action Taken by Nursing Physician Notified 09/05/23 03:31 09/05/23 03:31 09/05/23 03:40 Temperature Temperature Source Pulse Rate 165 H 165 H 129 H Pulse Rate from SpO2 Sensor 64 123 H Pulse Rhythm Pulse Strength Respiratory Rate 28 H 31 H Respiratory Effort / Characteristics Respiratory Depth Respiratory Pattern Blood Pressure 140/114 H 111/90 Blood Pressure Mean 122 97 Blood Pressure Position Pulse Oximetry 93 95 Oxygen Delivery Method Nasal Cannula Nasal Cannula Oxygen Flow Rate 5 5 Sepsis Recent Fever Within 48 Hours Sepsis New/Unexplained Change in Mental Status Sepsis Action Taken by Nursing 09/05/23 03:45 09/05/23 04:32 09/05/23 04:47 Temperature Temperature Source Pulse Rate 169 H 124 H 120 H Pulse Rate from SpO2 Sensor 93 H Pulse Rhythm Pulse Strength Respiratory Rate 31 H Respiratory Effort / Characteristics Respiratory Depth Respiratory Pattern Blood Pressure 132/106 H 139/84 119/78 Blood Pressure Mean 114 Blood Pressure Position Pulse Oximetry 97 Oxygen Delivery Method Nasal Cannula Oxygen Flow Rate 5 Sepsis Recent Fever Within 48 Hours Sepsis New/Unexplained Change in Mental Status Sepsis Action Taken by Nursing 09/05/23 04:00 09/05/23 04:00 09/05/23 04:15 Temperature Temperature Source Pulse Rate 151 H Pulse Rate from SpO2 Sensor 150 H Pulse Rhythm Pulse Strength Respiratory Rate 26 H Respiratory Effort / Characteristics Respiratory Depth Respiratory Pattern Blood Pressure 120/85 130/80 Blood Pressure Mean 106 106 Blood Pressure Position Pulse Oximetry 97 Oxygen Delivery Method Oxygen Flow Rate 5 Sepsis Recent Fever Within 48 Hours Sepsis New/Unexplained Change in Mental Status Sepsis Action Taken by Nursing 09/05/23 04:15 09/05/23 04:30 09/05/23 04:30 Temperature Temperature Source Pulse Rate 119 H 109 H Pulse Rate from SpO2 Sensor 117 H 112 H Pulse Rhythm Pulse Strength Respiratory Rate 25 H 24 Respiratory Effort / Characteristics Respiratory Depth Respiratory Pattern Blood Pressure 132/82 Blood Pressure Mean 108 Blood Pressure Position Pulse Oximetry 97 97 Oxygen Delivery Method Oxygen Flow Rate 5 5 Sepsis Recent Fever Within 48 Hours Sepsis New/Unexplained Change in Mental Status Sepsis Action Taken by Nursing 09/05/23 04:32 09/05/23 04:32 09/05/23 04:45 Temperature Temperature Source Pulse Rate 139 H Pulse Rate from SpO2 Sensor 119 H Pulse Rhythm Pulse Strength Respiratory Rate 21 Respiratory Effort / Characteristics Respiratory Depth Respiratory Pattern Blood Pressure 139/84 119/78 Blood Pressure Mean 104 102 Blood Pressure Position Pulse Oximetry 97 Oxygen Delivery Method Oxygen Flow Rate 5 Sepsis Recent Fever Within 48 Hours Sepsis New/Unexplained Change in Mental Status Sepsis Action Taken by Nursing 09/05/23 04:45 09/05/23 05:00 09/05/23 05:30 Temperature Temperature Source Pulse Rate 133 H 150 H 106 H Pulse Rate from SpO2 Sensor 112 H 111 H Pulse Rhythm Pulse Strength Respiratory Rate 29 H 27 H 25 H Respiratory Effort / Characteristics Respiratory Depth Respiratory Pattern Blood Pressure 111/80 Blood Pressure Mean 90 Blood Pressure Position Pulse Oximetry 93 93 97 Oxygen Delivery Method Oxygen Flow Rate 5 5 5 Sepsis Recent Fever Within 48 Hours Sepsis New/Unexplained Change in Mental Status Sepsis Action Taken by Nursing 09/05/23 05:35 09/05/23 05:45 09/05/23 05:51 Temperature Temperature Source Pulse Rate 147 H 118 H 124 H Pulse Rate from SpO2 Sensor 108 H 107 H Pulse Rhythm Pulse Strength Respiratory Rate 25 H 21 17 Respiratory Effort / Characteristics Respiratory Depth Respiratory Pattern Blood Pressure 128/68 131/73 121/75 Blood Pressure Mean 88 92 90 Blood Pressure Position Pulse Oximetry 97 99 97 Oxygen Delivery Method Nasal Cannula Oxygen Flow Rate 5 5 5 Sepsis Recent Fever Within 48 Hours Sepsis New/Unexplained Change in Mental Status Sepsis Action Taken by Nursing 09/05/23 06:00 09/05/23 06:34 09/05/23 06:15 Temperature Temperature Source Pulse Rate 109 H 117 H 109 H Pulse Rate from SpO2 Sensor 112 H 80 Pulse Rhythm Pulse Strength Respiratory Rate 23 23 Respiratory Effort / Characteristics Respiratory Depth Respiratory Pattern Blood Pressure 124/79 136/60 126/71 Blood Pressure Mean 94 89 Blood Pressure Position Pulse Oximetry 99 97 Oxygen Delivery Method Nasal Cannula Oxygen Flow Rate 5 5 Sepsis Recent Fever Within 48 Hours Sepsis New/Unexplained Change in Mental Status Sepsis Action Taken by Nursing 09/05/23 06:32 09/05/23 07:16 Temperature Temperature Source Pulse Rate 127 H 101 H Pulse Rate from SpO2 Sensor 103 H Pulse Rhythm Pulse Strength Respiratory Rate 24 Respiratory Effort / Characteristics Respiratory Depth Respiratory Pattern Blood Pressure 136/60 143/90 H Blood Pressure Mean 85 Blood Pressure Position Pulse Oximetry 99 Oxygen Delivery Method Nasal Cannula Oxygen Flow Rate 5 Sepsis Recent Fever Within 48 Hours Sepsis New/Unexplained Change in Mental Status Sepsis Action Taken by Nursing Laboratory Data 09/05/23 03:27 09/05/23 03:27 Lab Results 09/05/23 09/05/23 09/05/23 Range/Units 03:27 03:27 03:27 WBC 16.54 H (4.8-10.8) K/ul RBC 3.79 L (4.20-5.40) M/uL Hgb 10.2 L (12.0-16.0) g/dl POC Hgb (12.0-16.0) g/dl Hct 33.4 L (37.0-47.0) % POC Hct (37-47) % MCV 88.1 (80.0-100.0) fL MCH 26.9 (25.0-34.0) pg MCHC 30.5 L (32.0-36.0) g/dL RDW Std Deviation 55.5 H (36.4-46.3) fL RDW Coeff of Dorcas 17.2 H (11.5-14.5) % Plt Count 453 H (130-400) K/uL MPV 10.7 (9.4-12.4) fL Immature Gran % (Auto) 1.5 % Neut % (Auto) 86.9 % Lymph % (Auto) 7.6 % [place] % (Auto) 3.8 % Eos % (Auto) 0.0 % Baso % (Auto) 0.2 % Neut # (Auto) 14.37 H (1.40-6.50) K/uL Lymph # (Auto) 1.26 (1.20-3.40) K/uL [place] # (Auto) 0.63 H (0.11-0.59) K/uL Eos # (Auto) 0.00 (0.00-0.50) K/uL Baso # (Auto) 0.03 (0.00-0.20) K/uL Immature Gran # (Auto) 0.25 H (0.01-0.20) K/uL PT 10.5 (9.0-12.0) Seconds INR 1.0 (0.9-1.1) POC Sodium (135-144) mmol/L Sodium 135 L (136-145) mmol/L POC Potassium (3.3-5.0) mmol/L Potassium 4.4 (3.5-5.1) mmol/L POC Chloride (101-112) mmol/L Chloride 98 (98-107) mmol/L Carbon Dioxide 29 (21-32) mmol/L POC Total CO2 (24-31) mmol/L Anion Gap 8 (3-11) POC Anion Gap (16-25) mmol/L POC BUN (7-18) mg/dl BUN 31 H (6-23) mg/dl Creatinine 1.32 H (0.6-1.2) mg/dl POC Creatinine (0.6-1.3) mg/dl Est Cr Clr Drug Dosing 36.6 ml/min Est GFR ( Amer) 46.9 ml/min Est GFR (Non-Af Amer) 40.5 ml/min BUN/Creatinine Ratio 23.5 H (10-20) Glucose 553 H* (70-99(Fasting)) mg/dl POC Glucose (other) (70-99) mg/dl Calcium 8.4 L (8.6-10.3) mg/dl POC Ioniz Calcium Benny (1.12-1.32) mmol/l Magnesium 1.6 L (1.7-2.4) mg/dl Total Bilirubin 0.2 (0.2-1.0) mg/dl AST 78 H (13-39) U/L ALT 150 H (7-52) U/L Alkaline Phosphatase 157 H (34-104) U/L Troponin I High Sens 8.5 (0-14) pg/ml Total Protein 5.8 L (6.0-8.3) gm/dl Albumin 3.6 (3.4-5.0) gm/dl Globulin 2.2 L (2.5-4.0) gm/dl Albumin/Globulin Ratio 1.6 (0.9-2) Lipase 36 (11-82) U/L TSH 3.417 (0.300-4.500) uIu/ml 09/05/23 Range/Units 03:57 WBC (4.8-10.8) K/ul RBC (4.20-5.40) M/uL Hgb (12.0-16.0) g/dl POC Hgb 9.9 L (12.0-16.0) g/dl Hct (37.0-47.0) % POC Hct 29 L (37-47) % MCV (80.0-100.0) fL MCH (25.0-34.0) pg MCHC (32.0-36.0) g/dL RDW Std Deviation (36.4-46.3) fL RDW Coeff of Dorcas (11.5-14.5) % Plt Count (130-400) K/uL MPV (9.4-12.4) fL Immature Gran % (Auto) % Neut % (Auto) % Lymph % (Auto) % [place] % (Auto) % Eos % (Auto) % Baso % (Auto) % Neut # (Auto) (1.40-6.50) K/uL Lymph # (Auto) (1.20-3.40) K/uL [place] # (Auto) (0.11-0.59) K/uL Eos # (Auto) (0.00-0.50) K/uL Baso # (Auto) (0.00-0.20) K/uL Immature Gran # (Auto) (0.01-0.20) K/uL PT (9.0-12.0) Seconds INR (0.9-1.1) POC Sodium 138 (135-144) mmol/L Sodium (136-145) mmol/L POC Potassium 3.9 (3.3-5.0) mmol/L Potassium (3.5-5.1) mmol/L POC Chloride 100 L (101-112) mmol/L Chloride (98-107) mmol/L Carbon Dioxide (21-32) mmol/L POC Total CO2 30 (24-31) mmol/L Anion Gap (3-11) POC Anion Gap 13.0 L (16-25) mmol/L POC BUN 25 H (7-18) mg/dl BUN (6-23) mg/dl Creatinine (0.6-1.2) mg/dl POC Creatinine 1.2 (0.6-1.3) mg/dl Est Cr Clr Drug Dosing ml/min Est GFR ( Amer) ml/min Est GFR (Non-Af Amer) ml/min BUN/Creatinine Ratio (10-20) Glucose (70-99(Fasting)) mg/dl POC Glucose (other) 456 H* (70-99) mg/dl Calcium (8.6-10.3) mg/dl POC Ioniz Calcium Benny 1.00 L (1.12-1.32) mmol/l Magnesium (1.7-2.4) mg/dl Total Bilirubin (0.2-1.0) mg/dl AST (13-39) U/L ALT (7-52) U/L Alkaline Phosphatase (34-104) U/L Troponin I High Sens (0-14) pg/ml Total Protein (6.0-8.3) gm/dl Albumin (3.4-5.0) gm/dl Globulin (2.5-4.0) gm/dl Albumin/Globulin Ratio (0.9-2) Lipase (11-82) U/L TSH (0.300-4.500) uIu/ml Administered Medications Diltiazem HCl 125 mg/ Dextrose 125 mls @ 5 mls/hr IV .Q24H [facility]; Protocol Stop: 10/05/23 04:14 Last Titration: 09/05/23 05:36 Dose: 10 mg/hr, 10 mls/hr Documented By: RAYMUNDO Co-signed By: KENYATTA Admin: 09/05/23 04:34 Dose: 5 mg/hr, 5 mls/hr Documented By: RAYMUNDO Co-signed By: GLORY Discontinued Medications Diltiazem HCl (Diltiazem Hcl 5 Mg/Ml 5 Ml Vial) Confirm Administered Dose 25 mg IV .ST-MED ONE Stop: 09/05/23 03:33 Last Admin: 09/05/23 03:43 Dose: Not Given Documented By: RAYMUNDO Diltiazem HCl (Diltiazem Hcl 5 Mg/Ml 5 Ml Vial) 15 mg IV NOW STA Stop: 09/05/23 03:38 Last Admin: 09/05/23 03:43 Dose: 15 mg Documented By: RAYMUNDO Co-signed By: KENYATTA Sodium Chloride (Nss) 1,000 mls @ 999 mls/hr IV .Q1H1M STA Stop: 09/05/23 04:23 Last Infusion: 09/05/23 04:58 Dose: 0 mls/hr Documented By: Admin: 09/05/23 03:43 Dose: 999 mls/hr Documented By: RAYMUNDO Insulin Human Regular (Novolin-R Insulin Per Unit Charge) 5 units IV NOW STA Stop: 09/05/23 06:58 Last Admin: 09/05/23 07:24 Dose: 5 units Documented By: IBETH Co-signed By: CORBIN Ioversol (Optiray 320 500ml) 112 ml IV ONCE ONE Stop: 09/05/23 05:29 Last Admin: 09/05/23 05:28 Dose: 112 ml Documented By: SAPPHIRE Metoprolol Tartrate (Metoprolol Tartrate 1 Mg/Ml Vial) 5 mg IV NOW STA Stop: 09/05/23 04:11 Last Admin: 09/05/23 04:32 Dose: 5 mg Documented By: RAYMUNDO Metoprolol Tartrate (Metoprolol Tartrate 1 Mg/Ml Vial) 5 mg IV NOW STA Stop: 09/05/23 06:29 Last Admin: 09/05/23 06:34 Dose: 5 mg Documented By: RAYMUNDO Miscellaneous (Stat Iv Infusion Titration Per Protocol) 1 each N/A NOW STA Stop: 09/05/23 04:11 Last Admin: 09/05/23 07:20 Dose: Not Given Documented By: IBETH Morphine Sulfate (Morphine Sulfate 4 Mg/Ml 1 Ml Carp\Vial) Confirm Administered Dose 4 mg .ROUTE .STK-MED ONE Stop: 09/05/23 03:32 Last Admin: 09/05/23 03:43 Dose: Not Given Documented By: RAYMUNDO Morphine Sulfate (Morphine Sulfate 4 Mg/Ml 1 Ml Carp\Vial) 4 mg IV NOW STA Stop: 09/05/23 03:40 Last Admin: 09/05/23 03:47 Dose: 4 mg Documented By: RAYMUNDO Morphine Sulfate (Morphine Sulfate 4 Mg/Ml 1 Ml Carp\Vial) 4 mg IV NOW STA Stop: 09/05/23 05:38 Last Admin: 09/05/23 05:49 Dose: 4 mg Documented By: RAYMUNDO Ondansetron HCl (Ondansetron Inj 2 Mg/Ml 2 Ml Vial) Confirm Administered Dose 4 mg .ROUTE .STK-MED ONE Stop: 09/05/23 03:32 Last Admin: 09/05/23 03:43 Dose: Not Given Documented By: RAYMUNDO Ondansetron HCl (Ondansetron Inj 2 Mg/Ml 2 Ml Vial) 4 mg IV NOW STA Stop: 09/05/23 03:40 Last Admin: 09/05/23 03:47 Dose: 4 mg Documented By: RAYMUNDO Imaging Data Radiologist's Impression: Chest X-Ray 09/05/23 03:23 XR chest 1V portable HISTORY: 73 years-old Female Dysrhythmia COMPARISON: CTA chest of same day TECHNIQUE: AP view of the chest FINDINGS: Cardiomediastinal and hilar silhouettes are within normal limits. Emphysema with chronic interstitial coarsening. No pneumothorax, pleural effusion or airspace consolidation. Calcified granuloma of the basal right lower lobe. Bones appear grossly intact. IMPRESSION: 1. No acute process of the chest. 2. Please refer to the CTA chest study of same day for additional findings. ACT 112: Negative or not required by law. The above report was generated using voice recognition software. It may contain grammatical, syntax or spelling errors. Electronically signed by: Israel Sharma M.D. 09/05/2023 6:40 AM Abdomen/Pelvis CT 09/05/23 03:36 CT angio chest PE protocol, CT abd pelvis IV con only CT DOSE: 1711.01 mGy.cm HISTORY: 73 years-old Female with PE. Acute shortness of breath with chest and abdominal pain TECHNIQUE: Multiple CTA images of the chest were obtained after the intravenous administration of 112 ml Optiray. Coronal and sagittal MIPS were obtained from the axial data set and were submitted for review. CT abdomen and pelvis with IV contrast also obtained. All measurements were obtained according to NASCET criteria. A dose lowering technique was utilized adhering to the principles of ALARA. COMPARISON: CTA chest 08/23/2023, CT abdomen and pelvis 08/25/2023. FINDINGS: CTA: Mild cardiomegaly. No pericardial effusion. Moderate coronary artery calcifications. Atherosclerosis of the thoracic aorta without aneurysm or dissection. No pulmonary emboli identified. Suboptimal evaluation of the subsegmental branches secondary to respiratory motion artifact. CT CHEST: No thyroid nodule. Borderline enlarged mediastinal and hilar lymph nodes zhane suring up to 12 mm are similar to prior and likely reactive. Additional calcified mediastinal and hilar lymph nodes suggestive of prior granulomatous disease. Severe pulmonary emphysema with bronchial wall thickening and mucous plugging. Mild intralobular septal thickening. Minimal patchy subsegmental groundglass densities most pronounced in the right upper and middle lobes. Mild linear consolidation/atelectasis of the lung bases. Decreased AP dimension of the trachea and bronchi suggestive of tracheobronchomalacia. Unremarkable soft tissues. No acute fracture. CT ABDOMEN AND PELVIS WITH IV CONTRAST: No free air. Calcified granulomata of the spleen. Moderately atrophic pancreas with ductal dilation measuring up to 6 mm. Pancreatic divisum. Cholecystectomy with likely postsurgical mild common bile duct dilation. No obstructing stone or lesion identified. The liver is otherwise unremarkable. Patent portal vein. Unremarkable kidneys without hydronephrosis. Mild distended urinary bladder. Hysterectomy with pelvic floor relaxation and cystocele. Atherosclerosis of the aorta. Fusiform aneurysmal dilation of the infrarenal abdominal aorta measures 4.1 x 4.1 cm, previously 3.9 cm on the 2021 comparison. Multifocal luminal na rrowing of the iliac arteries. No lymphadenopathy. No bowel obstruction or bowel wall thickening. Colonic diverticulosis. Unremarkable soft tissues. Likely benign sclerotic lesion of the right proximal femur. No acute fracture. Tarlov cysts of the sacrum. IMPRESSION: 1. No pulmonary emboli identified. 2. Severe pulmonary emphysema with bronchitis and mucous plugging. Subsegmental ground glass opacities throughout the right lung may represent a mild infectious or inflammatory pneumonitis. 3. Mild likely reactive mediastinal and hilar lymphadenopathy. 4. No bowel obstruction or bowel wall thickening. 5. Pancreatic divisum with unchanged pancreatic ductal dilation. 6. Fusiform aneurysmal dilation of the infrarenal abdominal aorta measures up to 4.1 cm, mildly increased in size compared to the 2021 exam. 7. Additional findings as above. ACT 112: Negative or not required by law. The above report was generated using voice recognition software. It may contain grammatical, syntax or spelling errors. Electronically signed by: Israel Sharma M.D. 09/05/2023 7:32 AM Chest CTA 09/05/23 03:36 CT angio chest PE protocol, CT abd pelvis IV con only CT DOSE: 1711.01 mGy.cm HISTORY: 73 years-old Female with PE. Acute shortness of breath with chest and abdominal pain TECHNIQUE: Multiple CTA images of the chest were obtained after the intravenous administration of 112 ml Optiray. Coronal and sagittal MIPS were obtained from the axial data set and were submitted for review. CT abdomen and pelvis with IV contrast also obtained. All measurements were obtained according to NASCET criteria. A dose lowering technique was utilized adhering to the principles of ALARA. COMPARISON: CTA chest 08/23/2023, CT abdomen and pelvis 08/25/2023. FINDINGS: CTA: Mild cardiomegaly. No pericardial effusion. Moderate coronary artery calcifications. Atherosclerosis of the thoracic aorta without aneurysm or dissection. No pulmonary emboli identified. Suboptimal evaluation of the subsegmental branches secondary to respiratory motion artifact. CT CHEST: No thyroid nodule. Borderline enlarged mediastinal and hilar lymph nodes measuring up to 12 mm are similar to prior and likely reactive. Additional calcified mediastinal and hilar lymph nodes suggestive of prior granulomatous disease. Severe pulmonary emphysema with bronchial wall thickening and mucous plugging. Mild intralobular septal thickening. Minimal patchy subsegmental groundglass densities most pronounced in the right upper and middle lobes. Mild linear consolidation/atelectasis of the lung bases. Decreased AP dimension of the trachea and bronchi suggestive of tracheobronchomalacia. Unremarkable soft tissues. No acute fracture. CT ABDOMEN AND PELVIS WITH IV CONTRAST: No free air. Calcified granulomata of the spleen. Moderately atrophic pancreas with ductal dilation measuring up to 6 mm. Pancreatic divisum. Cholecystectomy with likely postsurgical mild common bile duct dilation. No obstructing stone or lesion identified. The liver is otherwise unremarkable. Patent portal vein. Unremarkable kidneys without hydronephrosis. Mild distended urinary bladder. Hysterectomy with pelvic floor relaxation and cystocele. Atherosclerosis of the aorta. Fusiform aneurysmal dilation of the infrarenal abdominal aorta measures 4.1 x 4.1 cm, previously 3.9 cm on the 2021 comparison. Multifocal luminal narrowing of the iliac arteries. No lymphadenopathy. No bowel obstruction or bowel wall thickening. Colonic diverticulosis. Unremarkable soft tissues. Likely benign sclerotic lesion of the right proximal femur. No acute fracture. Tarlov cysts of the sacrum. IMPRESSION: 1. No pulmonary emboli identified. 2. Severe pulmonary emphysema with bronchitis and mucous plugging. Subsegmental ground glass opacities throughout the right lung may represent a mild infectious or inflammatory pneumonitis. 3. Mild likely reactive mediastinal and hilar lymphadenopathy. 4. No bowel obstruction or bowel wall thickening. 5. Pancreatic divisum with unchanged pancreatic ductal dilation. 6. Fusiform aneurysmal dilation of the infrarenal abdominal aorta measures up to 4.1 cm, mildly increased in size compared to the 2021 exam. 7. Additional findings as above. ACT 112: Negative or not required by law. The above report was generated using voice recognition software. It may contain grammatical, syntax or spelling errors. Electronically signed by: Israel Sharma M.D. 09/05/2023 7:32 AM Discharge Plan Visit Data Chief Complaint: Chest Pain Stated Complaint: Chest Pain, Tachycardia, Back Pain ED Provider: Charlie Davis Discharge Problem: Atrial fibrillation with rapid ventricular response Forms Stand Alone Forms: [facility] [employer] Prescriptions Prescriptions: No Action ipratropium-albuterol 0.5 mg-3 mg(2.5 mg base)/3 mL solution for nebulization 3 ml INHALATION QID PRN (Reason: Shortness Of Breath Or Wheezing) atorvastatin [Lipitor] 40 mg tablet 40 mg PO QAM budesonide [Pulmicort] 0.5 mg/2 mL suspension for nebulization 0.5 mg inhalation BID aspirin [Uri Low Dose Aspirin] 81 mg Tablet,Delayed Release (Dr/Ec) 81 mg PO QAM albuterol sulfate [Ventolin HFA] 90 mcg/actuation HFA aerosol inhaler 2 puff INHALATION Q6 PRN (Reason: Shortness Of Breath Or Wheezing) metformin 1,000 mg tablet 1,000 mg PO BID (DME) blood-glucose meter [SpacenetTouch Verio Meter] Misc See Rx Instructions .ROUTE .MEDSUPPLY Qty: 1 0RF Rx Instructions: to test blood sugar 1-2 times/day (DME) OneTouch Verio test strips Strip See Rx Instructions .ROUTE .MEDSUPPLY Qty: 50 3RF Rx Instructions: test blood sugar 1-2 times per day (DME) lancets [[employer] Delica Lancets] 33 gauge misc See Rx Instructions .ROUTE .MEDSUPPLY Qty: 100 3RF Rx Instructions: test sugar 1-2 times per day losartan 50 mg tablet 50 mg PO QAM folic acid 1 mg tablet 1 mg PO QAM furosemide 20 mg tablet 20 mg PO DAILY rosuvastatin 20 mg tablet 20 mg PO DAILY bupropion HCl 150 mg tablet extended release 24 hr 150 mg PO DAILY budesonide-formoterol [Symbicort] 160-4.5 mcg/actuation HFA aerosol inhaler See Rx Instructions .ROUTE .COMPLEX Rx Instructions: as directed azithromycin 250 mg Tablet 250 mg PO QAM Qty: 2 0RF pantoprazole 40 mg Tablet,Delayed Release (Dr/Ec) 40 mg PO QAM Qty: 30 0RF prednisone 10 mg tablet See Rx Instructions .ROUTE .COMPLEX Qty: 20 0RF Rx Instructions: Once daily, By mouth: Take 4 tablets for 2 days; then 3 tablets for 2 days 2 tablets for 2 days 1 tablet for 2 days. Stiolto Respimat 2.5-2.5 mcg/actuation mist 2 spray INHALATION QAM diltiazem HCl 120 mg capsule,extended release 24hr 120 mg PO DAILY metoprolol succinate 50 mg tablet extended release 24 hr 50 mg PO DAILY oxycodone 5 mg tablet 5 mg PO TID PRN (Reason: Pain) ipratropium-albuterol 0.5 mg-3 mg(2.5 mg base)/3 mL solution for nebulization 3 ml inhalation Q4H PRN (Reason: shortness of breath) Qty: 90 0RF Rx Instructions: until breathing returns to target peak flow/parameters Referrals Referrals: PCP,NO [Physician] -
[2023-09-05] MEDS ORDERED: ONDANSETRON INJ 2 MG/ML 2 ML VIAL IV STA (03:39)
[2023-09-05] MEDS ORDERED: MoRPHine SULFATE 4 MG/ML 1 ML CARP\\VIAL IV STA ×2 (03:39→05:37)
[2023-09-05 03:44] LABS: Basophils # (auto) 0.03 K/uL (0.00-0.20); Basophils % (auto) 0.2 %; Hematocrit (blood only) 33.4 % (37.0-47.0); Hemoglobin 10.2 g/dl (12.0-16.0); Immature Granulocytes # (auto) 0.25 K/uL (0.01-0.20); Immature Granulocytes % (auto) 1.5 %; Lymphocytes # (auto) 1.26 K/uL (1.20-3.40); Lymphocytes % (auto) 7.6 %; Mean Corpuscular Hemoglobin 26.9 pg (25.0-34.0); Mean Corpuscular Hgb Conc 30.5 g/dL (32.0-36.0); Mean Corpuscular Volume 88.1 fL (80.0-100.0); Mean Platelet Volume 10.7 fL (9.4-12.4); Monocytes # (auto) 0.63 K/uL (0.11-0.59); Monocytes % (auto) 3.8 %; Neutrophils # (auto) 14.37 K/uL (1.40-6.50); Neutrophils % (auto) 86.9 %; Platelet Count 453 K/uL (130-400); RDW Coefficient of Variation 17.2 % (11.5-14.5); RDW Standard Deviation 55.5 fL (36.4-46.3); Red Blood Count 3.79 M/uL (4.20-5.40); White Blood Count 16.54 K/ul (4.8-10.8)
[2023-09-05 04:10] LABS: iSTAT Creatinine 1.2 mg/dl (0.6-1.3); iSTAT Hemoglobin 9.9 g/dl (12.0-16.0); iSTAT Potassium 3.9 mmol/L (3.3-5.0)
[2023-09-05] MEDS ORDERED: STAT IV Infusion **Titration per Protocol STA (04:10)
[2023-09-05] MEDS ORDERED: METOPROLOL TARTRATE 1 MG/ML VIAL IV STA ×2 (04:10→06:28)
[2023-09-05] MEDS ORDERED: dilTIAZem HCL 125 MG in DEXTROSE 5% 100 ML IV SCH (04:15)
[2023-09-05 04:19] LABS: Albumin Globulin Ratio 1.6 (0.9-2); Albumin Level 3.6 gm/dl (3.4-5.0); BUN Creatinine Ratio 23.5 (10-20); Bilirubin,Total 0.2 mg/dl (0.2-1.0); Calcium 8.4 mg/dl (8.6-10.3); Creatinine Clr Calc Pharmacy 36.6 ml/min; Est GFR (African American) 46.9 ml/min; Est GFR (Non-African American) 40.5 ml/min; Globulin 2.2 gm/dl (2.5-4.0); Magnesium 1.6 mg/dl (1.7-2.4); Potassium 4.4 mmol/L (3.5-5.1); Total Protein 5.8 gm/dl (6.0-8.3); Troponin I High Sensitivity 8.5 pg/ml (0-14)
[2023-09-05 04:20] LABS: Thyroid Stimulating Hormone 3.417 uIu/ml (0.300-4.500)
[2023-09-05 04:21] LABS: Prothrombin Time 10.5 Seconds (9.0-12.0)
[2023-09-05] MEDS ORDERED: OPTIRAY 320 500ml IV ONE (05:28)
--- NOTE | 2023-09-05 06:42 | XRay Report ---
XR chest 1V portable HISTORY: 73 years-old Female Dysrhythmia COMPARISON: CTA chest of same day TECHNIQUE: AP view of the chest FINDINGS: Cardiomediastinal and hilar silhouettes are within normal limits. Emphysema with chronic interstitial coarsening. No pneumothorax, pleural effusion or airspace consolidation. Calcified granuloma of the basal right lower lobe. Bones appear grossly intact. IMPRESSION: 1. No acute process of the chest. 2. Please refer to the CTA chest study of same day for additional findings. ACT 112: Negative or not required by law. The above report was generated using voice recognition software. It may contain grammatical, syntax o r spelling errors. Electronically signed by: Israel Sharma M.D. 09/05/2023 6:40 AM
[2023-09-05] MEDS ORDERED: NovoLIN-R INSULIN PER UNIT CHARGE IV STA (06:57)
--- NOTE | 2023-09-05 07:34 | CT Scan Report ---
CT angio chest PE protocol, CT abd pelvis IV con only CT DOSE: 1711.01 mGy.cm HISTORY: 73 years-old Female with PE. Acute shortness of breath with chest and abdominal pain TECHNIQUE: Multiple CTA images of the chest were obtained after the intravenous administration of 112 ml Optiray. Coronal and sagittal MIPS were obtained from the axial data set and were submitted for review. CT abdomen and pelvis with IV contrast also obtained. All measurements were obtained accordin g to NASCET criteria. A dose lowering technique was utilized adhering to the principles of ALARA. COMPARISON: CTA chest 08/23/2023, CT abdomen and pelvis 08/25/2023. FINDINGS: CTA: Mild cardiomegaly. No pericardial effusion. Moderate coronary artery calcifications. Atherosclerosis of the thoracic aorta without aneurysm or dissection. No pulmonary emboli identified. Suboptimal eval uation of the subsegmental branches secondary to respiratory motion artifact. CT CHEST: No thyroid nodule. Borderline enlarged mediastinal and hilar lymph nodes measuring up to 12 mm are si milar to prior and likely reactive. Additional calcified mediastinal and hilar lymph nodes suggestive of prior granulomatous disease. Severe pulmonary emphysema with bronchial wall thickening and mucous plugging. Mild intralobular septal thickening. Minimal patchy subsegmental groundglass densities mos t pronounced in the right upper and middle lobes. Mild linear consolidation/atelectasis of the lung b ases. Decreased AP dimension of the trachea and bronchi suggestive of tracheobronchomalacia. Unremark able soft tissues. No acute fracture. CT ABDOMEN AND PELVIS WITH IV CONTRAST: No free air. Calcified granulomata of the spleen. Moderately atrophic pancreas with ductal dilation m easuring up to 6 mm. Pancreatic divisum. Cholecystectomy with likely postsurgical mild common bile du ct dilation. No obstructing stone or lesion identified. The liver is otherwise unremarkable. Patent p ortal vein. Unremarkable kidneys without hydronephrosis. Mild distended urinary bladder. Hysterectomy with pelvic floor relaxation and cystocele. Atherosclerosis of the aorta. Fusiform aneurysmal dilation of the in frarenal abdominal aorta measures 4.1 x 4.1 cm, previously 3.9 cm on the 2021 comparison. Multifocal luminal narrowing of the iliac arteries. No lymphadenopathy. No bowel obstruction or bowel wall thickening. Colonic diverticulosis. Unremarkable soft tissues. Lik robbie benign sclerotic lesion of the right proximal femur. No acute fracture. Tarlov cysts of the sacru m. IMPRESSION: 1. No pulmonary emboli identified. 2. Severe pulmonary emphysema with bronchitis and mucous plugging. Subsegmental ground glass opacitie s throughout the right lung may represent a mild infectious or inflammatory pneumonitis. 3. Mild likely reactive mediastinal and hilar lymphadenopathy. 4. No bowel obstruction or bowel wall thickening. 5. Pancreatic divisum with unchanged pancreatic ductal dilation. 6. Fusiform aneurysmal dilation of the infrarenal abdominal aorta measures up to 4.1 cm, mildly incre ased in size compared to the 2021 exam. 7. Additional findings as above. ACT 112: Negative or not required by law. The above report was generated using voice recognition software. It may contain grammatical, syntax o r spelling errors. Electronically signed by: Israel Sharma M.D. 09/05/2023 7:32 AM
[2023-09-05] MEDS ORDERED: cefTRIAXone SODIUM 1,000 MG/50 ML BAG IV STA (07:44)
[2023-09-05] MEDS ORDERED: AZITHROMYCIN 500 MG in DEXTROSE 5% 250 ML IV ONE (07:44)
[2023-09-05] MEDS: MAGNESIUM SULFATE / D5W 1 GM/100 ML BAG IV SCH ×2 (08:09→08:49)
[2023-09-05 09:07] LABS: Influenza A virus by PCR Negative (Neg); Influenza B virus by PCR Negative (Neg); RSV by PCR Negative (Neg); SARS CoV2 RNA(COVID-19) Ceph NEGATIVE (Negative)
--- NOTE | 2023-09-05 09:29 | History & Physical Report ---
Date of Service September 05, 2023 Assessment & Plan (1) Atrial fibrillation with rapid ventricular response: Plan: Patient with atrial fibrillation rapid ventricular response in the face of previous severe COPD. Patient will be managed with rate controlling agents and instituted on anticoagulation emergency department she is rate controlled with diltiazem drip. patient typically on home diltiazem and metoprolol these doses will be increased We will trend troponins although if elevated likely demand ischemia from rapid heart rate. Pending echocardiogram. Replete electrolytes Elevated troponin is likely demand ischemia from her medical illness Patient has chest pain associated with her A-fib. She converted to sinus rhythm later in the afternoon. Chest pain is pleuritic and reproducible. She does claim having some dark bowel movements subsequently we have added Carafate and Pepcid to her regimen following her hemoglobin levels will discontinue or hold further anticoagulation until her GI pain is resolved. (2) COPD exacerbation: Plan: unclear whether shortness of breath is from atrial febrile or continued exacerbation of her COPD. Since on steroid taper will keep on oral steroids best we can to try to avoid persistent hyperglycemia which will need to be managed aggressively. Since patient was on azithromycin as an outpatient we will change to doxycycline to treat the bronchitis comment on CT scan. Will employ mucolytic's and chest physiotherapy to try to expectorate her mucus. (3) Diabetes type 2, uncontrolled: Plan: uncontrolled diabetes likely spurred on by physiological stressors and steroid tapering dose. We will have basal bolus insulin (4) Chronic kidney disease: Plan: Chronic kidney disease stage III remained stable Plan SCDs at this time eventually she will be on DOAC for atrial fibrillation History of Present Illness Primary Care Provider: BRET Espinoza 73-year-old female discharged from on any 08/27/2023 after an admission with a COPD exacerbation. During her hospital stay she had 1 of 4 blood cultures positive for gram-positive cocci in chains all of the others remain negative. She was discharged on azithromycin and a prednisone taper. She presents today with A-fib RVR, shortness of breath, glucose of 500, hypomagnesemia. CT angiography does not show any pneumonia there is continued suggest bronchitis with mucous plugging on her CT of her abdomen including aortic aneurysm which is stable and pancreatic divisum in the emergency department for atrial Fibrillation she was given diltiazem drip she was started on antibiotics for leukocytosis and a bronchitis mucous plugging seen on CT and she her glucose managed with bolus insulin. Allergies Allergy/AdvReac Type Severity Reaction Status Date / Time diflunisal AdvReac Intermediate HEART RACES Verified 12/11/22 22:28 Home Medications Medication Instructions Recorded Confirmed Type albuterol sulfate 90 mcg/actuation 2 puff inhalation Q6 PRN Shortness 08/28/20 09/05/23 History aerosol inhaler (Ventolin HFA) Of Breath Or Wheezing aspirin 81 mg tablet,delayed 81 mg PO QAM 08/28/20 09/05/23 History release (Uri Low Dose Aspirin) atorvastatin 40 mg tablet (Lipitor) 40 mg PO QAM 08/28/20 09/05/23 History budesonide 0.5 mg/2 mL suspension 0.5 mg inhalation BID 08/28/20 09/05/23 History for nebulization (Pulmicort) metformin 1,000 mg tablet 1,000 mg PO BID 08/28/20 09/05/23 History ipratropium 0.5 mg-albuterol 3 mg 3 ml inhalation QID PRN Shortness 09/25/20 09/05/23 History (2.5 mg base)/3 mL nebulization Of Breath Or Wheezing soln blood sugar diagnostic (OneTouch #50 ea 06/02/21 03/24/22 Rx Verio test strips) blood-glucose meter (OneTouch #1 ea 06/02/21 03/24/22 Rx Verio Meter) lancets 33 gauge (OneTouch Delica #100 ea 06/02/21 03/24/22 Rx Lancets) tiotropium 2.5 mcg-olodaterol 2.5 2 puff inhalation QAM 09/02/21 09/05/23 History mcg/actuation mist for inhalation (Stiolto Respimat) diltiazem HCl 120 mg 120 mg PO DAILY 01/12/22 09/05/23 History capsule,extended release 24 hr folic acid 1 mg tablet 1 mg PO QAM 03/24/22 09/05/23 History losartan 50 mg tablet 50 mg PO QAM 03/24/22 09/05/23 History metoprolol succinate 50 mg 50 mg PO DAILY 12/11/22 09/05/23 History tablet,extended release 24 hr oxycodone 5 mg tablet 5 mg PO TID PRN Pain 12/11/22 09/05/23 History ipratropium 0.5 mg-albuterol 3 mg 3 ml inhalation Q4H PRN shortness 12/13/22 09/05/23 Rx (2.5 mg base)/3 mL nebulization of breath #90 mL soln budesonide-formoterol HFA 160 2 puff inhalation DAILY PRN 08/23/23 09/05/23 History mcg-4.5 mcg/actuation aerosol Shortness Of Breath inhaler (Symbicort) bupropion HCl 150 mg 24 hr tablet, 150 mg PO DAILY 08/23/23 09/05/23 History extended release furosemide 20 mg tablet 20 mg PO DAILY 08/23/23 09/05/23 History rosuvastatin 20 mg tablet 20 mg PO DAILY 08/23/23 09/05/23 History pantoprazole 40 mg tablet,delayed 40 mg PO QAM #30 tabs 08/26/23 09/05/23 Rx release prednisone 10 mg tablet See Rx Instructions .Route 08/26/23 09/05/23 Rx .COMPLEX #20 tabs Past Med/Surg History Medical History (Updated 09/05/23 @ 07:41 by Charlie Davis DO) AAA (abdominal aortic aneurysm) Abdominal pain Acute exacerbation of chronic low back pain Acute hypercapnic respiratory failure Acute hypotension Acute kidney injury Acute on chronic respiratory failure with hypoxia Acute on chronic respiratory failure with hypoxia and hypercapnia Acute UTI TATY (acute kidney injury) AMS (altered mental status) Candidiasis of mouth and esophagus Chronic kidney disease, stage 3a Chronic low back pain Chronic pain syndrome COPD (chronic obstructive pulmonary disease) COPD exacerbation Diabetes mellitus Diabetes type 2, uncontrolled Diaphragmatic hernia (10/31/11) DVT prophylaxis History of knee replacement Hyperkalemia Hyperlipidemia Hypertension Left peroneal nerve palsy Respiratory failure Syncope Tobacco abuse Surgical History H/O Achilles tendon repair (~2007) H/O: hysterectomy History of appendectomy History of bilateral oophorectomies History of lithotripsy (~2007) Hx of cholecystectomy Family History Other Family history non-contributory Social History Smoking Status: Current every day smoker Tobacco Type: Cigarettes Cigarettes Per Day: 10; Second Hand Exposure: Yes; Do You Dip or Chew Tobacco: No; Hx Alcohol Use: No Hx Substance Use: No Preferred Language: Sinhala Communication Ability: Effective Scene Shifter Required: No Beliefs That Will Affect Care: None marital status: Current Living Situation: Alone How many Children do You have: 3 Feels Safe at Home: Yes Assistive Devices: Nebulizer, Oxygen - Continuous, Walker and Wheelchair Review of Systems Review of Systems: moderate distress and fatigue no headache, no visual changes no speech or swallowing issues sharp chest pain, pleuritic without pressure or palpitations moderate shortness of breath, productive cough or wheezes epigastric abdominal pain, no nausea or vomiting, diarrhea or constipation no dysuria, hematuria or frequency no focal joint pain or swelling no back pain, CVA tenderness or radicular pain no bruising, bleeding or rashes no focal signs of weakness or numbness or altered sensation no complaints of anxiety or depression.. Physical Exam Physical Exam: The patient chronically ill Vital signs as documented. Head exam is normocephalic atraumatic Neck is without JVD, thyromegaly, or carotid bruits. Lungs are poor air movement rhonchorous breath sounds at the bases no expiratory wheezes prolonged expiration phase Cardiac exam, Rhythm is regular.. No murmurs, rubs or gallops. Abdominal exam reveals normal bowel sounds, soft epigastric tenderness no pedal splenomegaly Extremities are nonedematous and both pedal pulses are present Neurologic exam is alert and oriented, no focal loss of strength or sensation Skin is without bruises or rashes Psychologically is without concerns for anxiety or depression.. Results & Data Results & Data Vital Signs (Past 12 Hours) Vital Signs Temp Pulse Resp BP Pulse Ox O2 Del Method O2 Flow Rate 09/05/23 08:18 81 09/05/23 07:16 101 H 143/90 H 09/05/23 06:32 127 H 24 136/60 99 Nasal Cannula 5 09/05/23 06:15 109 H 23 126/71 97 Nasal Cannula 5 09/05/23 06:34 117 H 136/60 09/05/23 06:00 109 H 23 124/79 99 5 09/05/23 05:51 124 H 17 121/75 97 5 09/05/23 05:45 118 H 21 131/73 99 5 09/05/23 05:35 147 H 25 H 128/68 97 Nasal Cannula 5 09/05/23 05:30 106 H 25 H 111/80 97 5 09/05/23 05:00 150 H 27 H 93 5 09/05/23 04:45 133 H 29 H 93 5 09/05/23 04:45 119/78 09/05/23 04:32 139/84 09/05/23 04:32 139 H 21 97 5 09/05/23 04:30 109 H 24 97 5 09/05/23 04:30 132/82 09/05/23 04:15 119 H 25 H 97 5 09/05/23 04:15 130/80 09/05/23 04:00 151 H 26 H 97 5 09/05/23 04:00 120/85 09/05/23 04:47 120 H 119/78 09/05/23 04:32 124 H 139/84 09/05/23 03:45 169 H 31 H 132/106 H 97 Nasal Cannula 5 09/05/23 03:40 129 H 31 H 111/90 95 Nasal Cannula 5 09/05/23 03:31 165 H 09/05/23 03:31 165 H 28 H 140/114 H 93 Nasal Cannula 5 09/05/23 03:40 93 Nasal Cannula 4 09/05/23 03:31 98.6 F 117 H 24 140/114 H 93 Nasal Cannula 2 09/05/23 03:31 Nasal Cannula 4 Diagnostic Findings Chest X-Ray 09/05/23 03:23 XR chest 1V portable HISTORY: 73 years-old Female Dysrhythmia COMPARISON: CTA chest of same day TECHNIQUE: AP view of the chest FINDINGS: Cardiomediastinal and hilar silhouettes are within normal limits. Emphysema with chronic interstitial coarsening. No pneumothorax, pleural effusion or airspace consolidation. Calcified granuloma of the basal right lower lobe. Bones appear grossly intact. IMPRESSION: 1. No acute process of the chest. 2. Please refer to the CTA chest study of same day for additional findings. ACT 112: Negative or not required by law. The above report was generated using voice recognition software. It may contain grammatical, syntax or spelling errors. Electronically signed by: Israel Sharma M.D. 09/05/2023 6:40 AM Abdomen/Pelvis CT 10/13/23 03:36 CT angio chest PE protocol, CT abd pelvis IV con only CT DOSE: 1711.01 mGy.cm HISTORY: 73 years-old Female with PE. Acute shortness of breath with chest and abdominal pain TECHNIQUE: Multiple CTA images of the chest were obtained after the intravenous administration of 112 ml Optiray. Coronal and sagittal MIPS were obtained from the axial data set and were submitted for review. CT abdomen and pelvis with IV contrast also obtained. All measurements were obtained according to NASCET criteria. A dose lowering technique was utilized adhering to the principles of ALARA. COMPARISON: CTA chest 08/23/2023, CT abdomen and pelvis 08/25/2023. FINDINGS: CTA: Mild cardiomegaly. No pericardial effusion. Moderate coronary artery calcifications. Atherosclerosis of the thoracic aorta without aneurysm or dissection. No pulmonary emboli identified. Suboptimal evaluation of the subsegmental branches secondary to respiratory motion artifact. CT CHEST: No thyroid nodule. Borderline enlarged mediastinal and hilar lymph nodes measuring up to 12 mm are similar to prior and likely reactive. Additional calcified mediastinal and hilar lymph nodes suggestive of prior granulomatous disease. Severe pulmonary emphysema with bronchial wall thickening and mucous plugging. Mild intralobular septal thickening. Minimal patchy subsegmental groundglass densities most pronounced in the right upper and middle lobes. Mild linear consolidation/atelectasis of the lung bases. Decreased AP dimension of the trachea and bronchi suggestive of tracheobronchomalacia. Unremarkable soft tissues. No acute fracture. CT ABDOMEN AND PELVIS WITH IV CONTRAST: No free air. Calcified granulomata of the spleen. Moderately atrophic pancreas with ductal dilation measuring up to 6 mm. Pancreatic divisum. Cholecystectomy with likely postsurgical mild common bile duct dilation. No obstructing stone or lesion identified. The liver is otherwise unremarkable. Patent portal vein. Unremarkable kidneys without hydronephrosis. Mild distended urinary bladder. Hysterectomy with pelvic floor relaxation and cystocele. Atherosclerosis of the aorta. Fusiform aneurysmal dilation of the infrarenal abdominal aorta measures 4.1 x 4.1 cm, previously 3.9 cm on the 2021 comparison. Multifocal luminal narrowing of the iliac arteries. No lymphadenopathy. No bowel obstruction or bowel wall thickening. Colonic diverticulosis. Unremarkable soft tissues. Likely benign sclerotic lesion of the right proximal femur. No acute fracture. Tarlov cysts of the sacrum. IMPRESSION: 1. No pulmonary emboli identified. 2. Severe pulmonary emphysema with bronchitis and mucous plugging. Subsegmental ground glass opacities throughout the right lung may represent a mild infectious or inflammatory pneumonitis. 3. Mild likely reactive mediastinal and hilar lymphadenopathy. 4. No bowel obstruction or bowel wall thickening. 5. Pancreatic divisum with unchanged pancreatic ductal dilation. 6. Fusiform aneurysmal dilation of the infrarenal abdominal aorta measures up to 4.1 cm, mildly increased in size compared to the 2021 exam. 7. Additional findings as above. Electronically signed by: Israel Sharma M.D. 09/05/2023 7:32 AM Chest CTA 09/05/23 03:36 CT angio chest PE protocol, CT abd pelvis IV con only CT DOSE: 1711.01 mGy.cm HISTORY: 73 years-old Female with PE. Acute shortness of breath with chest and abdominal pain TECHNIQUE: Multiple CTA images of the chest were obtained after the intravenous administration of 112 ml Optiray. Coronal and sagittal MIPS were obtained from the axial data set and were submitted for review. CT abdomen and pelvis with IV contrast also obtained. All measurements were obtained according to NASCET criteria. A dose lowering technique was utilized adhering to the principles of ALARA. COMPARISON: CTA chest 08/23/2023, CT abdomen and pelvis 08/25/2023. FINDINGS: CTA: Mild cardiomegaly. No pericardial effusion. Moderate coronary artery calcifications. Atherosclerosis of the thoracic aorta without aneurysm or dissection. No pulmonary emboli identified. Suboptimal evaluation of the subsegmental branches secondary to respiratory motion artifact. CT CHEST: No thyroid nodule. Borderline enlarged mediastinal and hilar lymph nodes measuring up to 12 mm are similar to prior and likely reactive. Additional calcified mediastinal and hilar lymph nodes suggestive of prior granulomatous disease. Severe pulmonary emphysema with bronchial wall thickening and mucous plugging. Mild intralobular septal thickening. Minimal patchy subsegmental groundglass densities most pronounced in the right upper and middle lobes. Mild linear consolidation/atelectasis of the lung bases. Decreased AP dimension of the trachea and bronchi suggestive of tracheobronchomalacia. Unremarkable soft tissues. No acute fracture. CT ABDOMEN AND PELVIS WITH IV CONTRAST: No free air. Calcified granulomata of the spleen. Moderately atrophic pancreas with ductal dilation measuring up to 6 mm. Pancreatic divisum. Cholecystectomy with likely postsurgical mild common bile duct dilation. No obstructing stone or lesion identified. The liver is otherwise unremarkable. Patent portal vein. Unremarkable kidneys without hydronephrosis. Mild distended urinary bladder. Hysterectomy with pelvic floor relaxation and cystocele. Atherosclerosis of the aorta. Fusiform aneurysmal dilation of the infrarenal abdominal aorta measures 4.1 x 4.1 cm, previously 3.9 cm on the 2021 comparison. Multifocal luminal narrowing of the iliac arteries. No lymphadenopathy. No bowel obstruction or bowel wall thickening. Colonic diverticulosis. Unremarkable soft tissues. Likely benign sclerotic lesion of the right proximal femur. No acute fracture. Tarlov cysts of the sacrum. IMPRESSION: 1. No pulmonary emboli identified. 2. Severe pulmonary emphysema with bronchitis and mucous plugging. Subsegmental ground glass opacities throughout the right lung may represent a mild infectious or inflammatory pneumonitis. 3. Mild likely reactive mediastinal and hilar lymphadenopathy. 4. No bowel obstruction or bowel wall thickening. 5. Pancreatic divisum with unchanged pancreatic ductal dilation. 6. Fusiform aneurysmal dilation of the infrarenal abdominal aorta measures up to 4.1 cm, mildly increased in size compared to the 2021 exam. 7. Additional findings as above. Electronically signed by: Israel Sharma M.D. 09/05/2023 7:32 AM PG Care Time/CCT Total # of Minutes Spent Total Time Spent with Patient: Total time spent is greater than 50% in coordination of care (as documented) at patient's floor/unit and/or counseling patient: Coding Level of Care Code 10049 INT INP/OBS CARE 3/75MIN Diagnoses Atrial fibrillation with rapid ventricular response I48.91 COPD exacerbation J44.1 Diabetes type 2, uncontrolled E11.65 Glycemic state: with hyperglycemia Chronic kidney disease N18.9 (3) Diabetes type 2, uncontrolled Glycemic state: with hyperglycemia Qualified Code(s): E11.65 - Type 2 diabetes mellitus with hyperglycemia
[2023-09-05] MEDS ORDERED: ACETAMINOPHEN 325 MG TAB ONE (10:18)
[2023-09-05] MEDS ORDERED: oxyCODONE HCL IR 5 MG TAB (IMMEDIATE RELEASE) ONE (11:08)
[2023-09-05] MEDS ORDERED: SODIUM CHLOR 7% 4 ML NEB NEB ONE (12:29)
[2023-09-05] MEDS ORDERED: MAGNESIUM SULFATE / D5W 1 GM/100 ML BAG IV ONE (12:29)
[2023-09-05] MEDS ORDERED: ONDANSETRON INJ 2 MG/ML 2 ML VIAL IV PRN (12:29)
[2023-09-05] MEDS ORDERED: ALUMINUM/MAGNESIUM SUSP 30 ML UDC PO PRN (12:29)
[2023-09-05] MEDS ORDERED: predniSONE 20 MG TAB PO STA (12:29)
[2023-09-05] MEDS ORDERED: NITROGLYCERIN SL 0.4 MG/TAB TAB SL PRN (12:29)
[2023-09-05] MEDS ORDERED: GLUCOSE 10 TAB/TUBE PO PRN (12:29)
[2023-09-05] MEDS ORDERED: CARBOHYDRATES FOR HYPOGLYCEMIA PO PRN (12:29)
[2023-09-05] MEDS ORDERED: METOPROLOL TARTRATE 50 MG TAB PO STA (12:29)
[2023-09-05] MEDS ORDERED: METOPROLOL TARTRATE 1 MG/ML VIAL IV PRN (12:29)
[2023-09-05] MEDS ORDERED: DEXTROSE 50% 50 ML SYRINGE IV PRN (12:29)
[2023-09-05] MEDS ORDERED: GLUCAGON FOR INJ 1 MG VIAL SQ PRN (12:29)
[2023-09-05] MEDS ORDERED: GLUCOSE 40% GEL 15 GM TUBE PO PRN (12:29)
[2023-09-05] MEDS ORDERED: ALBUTEROL HFA 8 GM INHALER INH PRN (12:29)
[2023-09-05] MEDS ORDERED: ALBUT/IPRATROP 3MG/0.5MG NEB 3 ML VIAL INH SCH ×2 (12:30→13:00)
[2023-09-05] MEDS ORDERED: FLUTICASONE/VILANTEROL 100/25MCG 14 PUFFS/INHALER INH PRN (13:08)
[2023-09-05] MEDS: INSULIN ASPART PER UNIT CHARGE SC SCH ×3 (13:47→20:01)
[2023-09-05] MEDS: ACETAMINOPHEN 325 MG TAB PO PRN ×2 (13:52→14:12)
[2023-09-05] MEDS: CEFEPIME 2,000 MG in SYRINGE 0 ML IV SCH (14:12)
--- NOTE | 2023-09-05 14:47 | Electrocardiogram Report ---
Test Reason : Blood Pressure : / mmHG Vent. Rate : 168 BPM Atrial Rate : 000 BPM P-R Int : 000 ms QRS Dur : 070 ms QT Int : 254 ms P-R-T Axes : 000 033 064 degrees QTc Int : 424 ms Atrial fibrillation with rapid ventricular response Abnormal ECG When compared with ECG of 23-AUG-2023 08:46, Significant changes have occurred Confirmed by David Shaikh ([id number]) on 09/05/2023 2:47:30 PM Referred By: REFERRED SELF Confirmed By:David Shaikh
--- NOTE | 2023-09-05 14:52 | Electrocardiogram Report ---
Test Reason : Blood Pressure : / mmHG Vent. Rate : 101 BPM Atrial Rate : 000 BPM P-R Int : 000 ms QRS Dur : 078 ms QT Int : 358 ms P-R-T Axes : 000 042 065 degrees QTc Int : 464 ms Atrial fibrillation with rapid ventricular response with premature ventricular or aberrantly conducte d complexes Abnormal ECG When compared with ECG of 05-SEP-2023 03:30, (unconfirmed) Vent. rate has decreased BY [address] no longer depressed in Inferior leads ST no longer depressed in Anterolateral leads Confirmed by David Shaikh ([id number]) on 09/05/2023 2:52:13 PM Referred By: REFERRED SELF Confirmed By:David Shaikh
--- NOTE | 2023-09-05 16:06 | Electrocardiogram Report ---
Test Reason : Blood Pressure : / mmHG Vent. Rate : 080 BPM Atrial Rate : 000 BPM P-R Int : 000 ms QRS Dur : 084 ms QT Int : 382 ms P-R-T Axes : 000 016 067 degrees QTc Int : 440 ms Atrial fibrillation Abnormal ECG When compared with ECG of 05-SEP-2023 06:49, No significant change was found Confirmed by David Shaikh ([id number]) on 09/05/2023 4:05:41 PM Referred By: REFERRED SELF Confirmed By:David Shaikh
[2023-09-05] MEDS ORDERED: MoRPHine SULFATE 2 MG/ML CARP IV STA (16:49)
[2023-09-05] MEDS ORDERED: SUCRALFATE 1 GM/10 ML UDC PO ONE (16:56)
[2023-09-05] MEDS: ALBUT/IPRATROP 3MG/0.5MG NEB 3 ML VIAL INH SCH ×2 (19:58→22:49)
[2023-09-05] MEDS: DOXYCYCLINE HYCLATE 100 MG CAP PO SCH (19:59)
[2023-09-05] MEDS: guaiFENesin 600 MG TABCR PO SCH (19:59)
[2023-09-05] MEDS: METOPROLOL TARTRATE 50 MG TAB PO SCH (20:00)
[2023-09-05] MEDS: FAMOTIDINE 20 MG in SYRINGE 3 ML IV SCH (20:00)
[2023-09-05] MEDS: oxyCODONE HCL IR 5 MG TAB (IMMEDIATE RELEASE) PO PRN (20:02)
[2023-09-05] MEDS: BUDESONIDE 0.5 MG/2 ML VIAL (PULMICORT) INH SCH (20:35)
[2023-09-05] MEDS ORDERED: APIXABAN 5 MG TABLET PO SCH (21:00)
[2023-09-06] MEDS: CEFEPIME 2,000 MG in SYRINGE 0 ML IV SCH ×3 (00:51→23:34)
[2023-09-06] MEDS: ACETAMINOPHEN 325 MG TAB PO PRN (00:53)
[2023-09-06] MEDS: ALBUT/IPRATROP 3MG/0.5MG NEB 3 ML VIAL INH SCH ×6 (03:54→22:09)
[2023-09-06] MEDS: oxyCODONE HCL IR 5 MG TAB (IMMEDIATE RELEASE) PO PRN ×4 (05:50→21:17)
[2023-09-06 06:11] LABS: Hematocrit (blood only) 32.8 % (37.0-47.0); Hemoglobin 9.9 g/dl (12.0-16.0); Mean Corpuscular Hemoglobin 27.2 pg (25.0-34.0); Mean Corpuscular Hgb Conc 30.2 g/dL (32.0-36.0); Mean Corpuscular Volume 90.1 fL (80.0-100.0); Mean Platelet Volume 9.9 fL (9.4-12.4); Nucleated RBC # (auto) 0.02 K/uL (0.00-0.12); Nucleated RBC % (auto) 0.1 %; Platelet Count 383 K/uL (130-400); RDW Coefficient of Variation 17.2 % (11.5-14.5); RDW Standard Deviation 55.8 fL (36.4-46.3); Red Blood Count 3.64 M/uL (4.20-5.40); White Blood Count 14.68 K/ul (4.8-10.8)
[2023-09-06 06:26] LABS: BUN Creatinine Ratio 20.1 (10-20); Calcium 8.6 mg/dl (8.6-10.3); Creatinine Clr Calc Pharmacy 34.2 ml/min; Est GFR (African American) 44.1 ml/min; Magnesium 2.3 mg/dl (1.7-2.4); Potassium 5.4 mmol/L (3.5-5.1)
[2023-09-06] MEDS: BUDESONIDE 0.5 MG/2 ML VIAL (PULMICORT) INH SCH ×2 (07:06→19:24)
[2023-09-06] MEDS: INSULIN ASPART PER UNIT CHARGE SC SCH ×4 (08:10→21:15)
[2023-09-06] MEDS: LOSARTAN POTASSIUM 50 MG TAB PO SCH (08:12)
[2023-09-06] MEDS: FOLIC ACID 1 MG TAB PO SCH (08:12)
[2023-09-06] MEDS: METOPROLOL TARTRATE 50 MG TAB PO SCH ×2 (08:12→21:11)
[2023-09-06] MEDS: PANTOprazole 40 MG TAB PO SCH (08:12)
[2023-09-06] MEDS: buPROPion XL 150 MG TABCR PO SCH (08:13)
[2023-09-06] MEDS: guaiFENesin 600 MG TABCR PO SCH ×2 (08:13→21:10)
[2023-09-06] MEDS: ASPIRIN 81 MG ECTAB PO SCH (08:13)
[2023-09-06] MEDS: dilTIAZem HCL 180 MG CAPCR PO SCH (08:13)
[2023-09-06] MEDS: ROSUVASTATIN CALCIUM 20 MG TAB PO SCH (08:13)
[2023-09-06] MEDS: DOXYCYCLINE HYCLATE 100 MG CAP PO SCH ×2 (08:14→21:10)
[2023-09-06] MEDS: UMECLIDINIUM/VILANTEROL 62.5/25MCG 7 PUFFS/INHALER INH SCH (08:14)
[2023-09-06] MEDS: FAMOTIDINE 20 MG in SYRINGE 3 ML IV SCH ×2 (08:18→21:15)
[2023-09-06] MEDS ORDERED: PATIROMER CALCIUM SORBITEX 8.4 GM PACK PO SCH (09:00)
[2023-09-06] MEDS ORDERED: FUROSEMIDE 20 MG TAB PO SCH (09:00)
[2023-09-06] MEDS ORDERED: predniSONE 20 MG TAB PO SCH (09:00)
[2023-09-06 11:19] LABS: Estimated Average Glucose 240 mg/dl
[2023-09-06] MEDS: PATIROMER CALCIUM SORBITEX 8.4 GM PACK PO SCH (12:21)
[2023-09-06] MEDS: ACETAMINOPHEN 500 MG TAB PO SCH ×2 (13:01→21:12)
[2023-09-06] MEDS: methylPREDNISolone 40 MG in SYRINGE 0 ML IV SCH ×2 (13:01→21:12)
[2023-09-06] MEDS ORDERED: LORazepam 0.5 MG TAB PO PRN (13:42)
--- NOTE | 2023-09-06 17:12 | Hospitalist Progress Note ---
Date of Service September 06, 2023 Assessment & Plan (1) Atrial fibrillation with rapid ventricular response: Plan: Patient with atrial fibrillation rapid ventricular response in the face of previous severe COPD. Rate is being controlled normal sinus rhythm has been restored with home diltiazem and metoprolol Elevated troponin is likely demand ischemia from her medical illness Patient has chest pain associated with her A-fib. She converted to sinus rhythm later in the afternoon. Chest pain is pleuritic and reproducible emesis with coughing at times. Carafate and Pepcid to her regimen to help any GI origin of the discomfort following her hemoglobin levels have been stable (2) COPD exacerbation: Plan: This now seems to be bronchitis associate with exacerbation of her COPD. Patient now on ceftriaxone azithromycin and intravenous Solu-Medrol. Hypertonic saline to try to mobilize secretions with Mucinex and flutter valve (3) Diabetes type 2, uncontrolled: Plan: uncontrolled diabetes likely spurred on by physiological stressors and steroid tapering dose. We will have basal bolus insulin with pharmacy oversight (4) Chronic kidney disease: Plan: Chronic kidney disease stage III remained stable Plan Will resume DOAC for atrial fibrillation Admission and Anticipated Discharge Date Admission Date: September 05, 2023 Subjective Patient is having emotionally labile afternoon. She has persistent shortness of breath and very loose productive cough. Her atrial fibrillation has been improved and EKG supports return to his normal sinus rhythm Physical Exam Physical Exam: Loose productive cough, expiratory wheezes Card exam is regular distant Results & Data Results & Data Vital Signs (Past 12 Hours) Vital Signs Temp Pulse Pulse Resp BP Pulse Ox O2 Del Method 09/06/23 15:23 98.2 F 67 18 161/75 H 95 Nebulizer 09/06/23 15:25 72 24 92 Nasal Cannula 09/06/23 08:00 Nasal Cannula 09/06/23 11:41 99.1 F 81 18 166/80 H 92 Nasal Cannula 09/06/23 10:33 71 20 94 Nasal Cannula 09/06/23 08:03 98.4 F 79 20 160/79 H 92 Nasal Cannula 09/06/23 07:23 80 09/06/23 07:06 80 16 98 Nasal Cannula O2 Flow Rate 09/06/23 15:23 09/06/23 15:25 4 09/06/23 08:00 3 09/06/23 11:41 4 09/06/23 10:33 4 09/06/23 08:03 4 09/06/23 07:23 09/06/23 07:06 3 Laboratory Results Reviewed CBC reviewed chemistry PG Care Time/CCT Total # of Minutes Spent Total Time Spent with Patient: Total time spent is greater than 50% in coordination of care (as documented) at patient's floor/unit and/or counseling patient: Coding Level of Care Code 67758 SUB INP/OBS CARE 3/50MIN Diagnoses Atrial fibrillation with rapid ventricular response I48.91 COPD exacerbation J44.1 Diabetes type 2, uncontrolled E11.65 Glycemic state: with hyperglycemia Chronic kidney disease N18.9 (3) Diabetes type 2, uncontrolled Glycemic state: with hyperglycemia Qualified Code(s): E11.65 - Type 2 diabetes mellitus with hyperglycemia
[2023-09-06] MEDS: LANTUS PER UNIT CHARGE SC SCH (17:56)
[2023-09-06] MEDS: SODIUM CHLOR 7% 4 ML NEB NEB SCH (19:25)
[2023-09-06] MEDS: APIXABAN 5 MG TABLET PO SCH (21:11)
[2023-09-07] MEDS: ALBUT/IPRATROP 3MG/0.5MG NEB 3 ML VIAL INH SCH ×5 (02:49→23:55)
[2023-09-07] MEDS: methylPREDNISolone 40 MG in SYRINGE 0 ML IV SCH ×3 (06:14→22:11)
[2023-09-07] MEDS: BUDESONIDE 0.5 MG/2 ML VIAL (PULMICORT) INH SCH ×2 (07:01→19:29)
[2023-09-07] MEDS: SODIUM CHLOR 7% 4 ML NEB NEB SCH ×2 (07:01→19:29)
[2023-09-07 07:06] LABS: Hematocrit (blood only) 34.3 % (37.0-47.0); Hemoglobin 10.6 g/dl (12.0-16.0); Mean Corpuscular Hemoglobin 27.2 pg (25.0-34.0); Mean Corpuscular Hgb Conc 30.9 g/dL (32.0-36.0); Mean Corpuscular Volume 87.9 fL (80.0-100.0); Platelet Count 425 K/uL (130-400); RDW Coefficient of Variation 17.2 % (11.5-14.5); RDW Standard Deviation 54.7 fL (36.4-46.3); White Blood Count 14.14 K/ul (4.8-10.8)
--- NOTE | 2023-09-07 07:08 | Electrocardiogram Report ---
Test Reason : Blood Pressure : / mmHG Vent. Rate : 066 BPM Atrial Rate : 066 BPM P-R Int : 146 ms QRS Dur : 076 ms QT Int : 416 ms P-R-T Axes : 057 033 067 degrees QTc Int : 436 ms Normal sinus rhythm Normal ECG When compared with ECG of 05-SEP-2023 09:59, Sinus rhythm has replaced Atrial fibrillation Confirmed by Juice Caro ([id number]) on 09/07/2023 7:08:13 AM Referred By: REFERRED SELF Confirmed By:Juice Caro
[2023-09-07 07:35] LABS: BUN Creatinine Ratio 31.9 (10-20); Calcium 9.2 mg/dl (8.6-10.3); Creatinine Clr Calc Pharmacy 42.1 ml/min; Est GFR (African American) 56.6 ml/min; Est GFR (Non-African American) 48.9 ml/min; Magnesium 1.9 mg/dl (1.7-2.4)
[2023-09-07] MEDS ORDERED: INSULIN HUMAN NPH SC ONE ×2 (07:40→08:00)
[2023-09-07] MEDS: INSULIN ASPART PER UNIT CHARGE SC SCH ×4 (08:29→19:59)
[2023-09-07] MEDS: LANTUS PER UNIT CHARGE SC SCH (08:30)
[2023-09-07] MEDS: FAMOTIDINE 20 MG in SYRINGE 3 ML IV SCH ×2 (08:31→19:55)
[2023-09-07] MEDS: oxyCODONE HCL IR 5 MG TAB (IMMEDIATE RELEASE) PO PRN ×4 (08:31→22:16)
[2023-09-07] MEDS: DOXYCYCLINE HYCLATE 100 MG CAP PO SCH ×2 (08:32→19:50)
[2023-09-07] MEDS: APIXABAN 5 MG TABLET PO SCH ×2 (08:32→19:50)
[2023-09-07] MEDS: ACETAMINOPHEN 500 MG TAB PO SCH ×3 (08:32→19:49)
[2023-09-07] MEDS: guaiFENesin 600 MG TABCR PO SCH ×2 (08:32→19:49)
[2023-09-07] MEDS: LOSARTAN POTASSIUM 50 MG TAB PO SCH (08:33)
[2023-09-07] MEDS: PANTOprazole 40 MG TAB PO SCH (08:33)
[2023-09-07] MEDS: dilTIAZem HCL 180 MG CAPCR PO SCH (08:33)
[2023-09-07] MEDS: ASPIRIN 81 MG ECTAB PO SCH (08:33)
[2023-09-07] MEDS: FOLIC ACID 1 MG TAB PO SCH (08:33)
[2023-09-07] MEDS: buPROPion XL 150 MG TABCR PO SCH (08:33)
[2023-09-07] MEDS: METOPROLOL TARTRATE 50 MG TAB PO SCH ×2 (08:33→19:50)
[2023-09-07] MEDS: ROSUVASTATIN CALCIUM 20 MG TAB PO SCH (08:34)
[2023-09-07] MEDS: UMECLIDINIUM/VILANTEROL 62.5/25MCG 7 PUFFS/INHALER INH SCH (08:34)
[2023-09-07] MEDS: PATIROMER CALCIUM SORBITEX 8.4 GM PACK PO SCH (08:43)
[2023-09-07] MEDS: CEFEPIME 2,000 MG in SYRINGE 0 ML IV SCH (12:01)
--- NOTE | 2023-09-07 13:42 | Hospitalist Progress Note ---
Date of Service September 07, 2023 Assessment & Plan (1) Atrial fibrillation with rapid ventricular response: Plan: Patient with atrial fibrillation rapid ventricular response in the face of previous severe COPD. Rate is being controlled normal sinus rhythm has been restored with home diltiazem and metoprolol Elevated troponin is likely demand ischemia from her medical illness Patient has chest pain associated with her A-fib. She converted to sinus rhythm later in the afternoon 09/06 chest pain is improved Carafate and Pepcid to her regimen to help any GI origin of the discomfort following her hemoglobin levels have been stable (2) COPD exacerbation: Plan: This now seems to be bronchitis associate with exacerbation of her COPD. Patient now on ceftriaxone azithromycin and intravenous Solu-Medrol. Hypertonic salineto mobilize secretions with Mucinex and flutter valve (3) Diabetes type 2, uncontrolled: Plan: uncontrolled diabetes likely spurred on by physiological stressors and steroid tapering dose. We will have basal bolus insulin with pharmacy oversight hyperkalemia is present patient will have continued patiromer (4) Chronic kidney disease: Plan: Chronic kidney disease stage III remained stable Plan Will resume DOAC for atrial fibrillation Admission and Anticipated Discharge Date Admission Date: September 05, 2023 Subjective patient feels improved emotions are more stable continues with a loose productive cough. Physical Exam Physical Exam: Loose productive cough, expiratory wheezes however improved air movement Card exam is regular distant Results & Data Results & Data Vital Signs (Past 12 Hours) Vital Signs Temp Pulse Pulse Resp BP Pulse Ox O2 Del Method 09/07/23 11:41 98.1 F 70 20 96 Nebulizer 09/07/23 11:02 Nasal Cannula 09/07/23 10:59 71 18 96 Nasal Cannula 09/07/23 07:46 97.9 F 70 22 161/74 H 93 Nasal Cannula 09/07/23 07:23 68 09/07/23 07:02 72 16 95 Nasal Cannula 09/07/23 02:51 71 18 96 Nasal Cannula O2 Flow Rate 09/07/23 11:41 09/07/23 11:02 4 09/07/23 10:59 4 09/07/23 07:46 4 09/07/23 07:23 09/07/23 07:02 4 09/07/23 02:51 4 Laboratory Results reviewed CBC reviewed chemistry PG Care Time/CCT Total # of Minutes Spent Total Time Spent with Patient: Total time spent is greater than 50% in coordination of care (as documented) at patient's floor/unit and/or counseling patient: Coding Level of Care Code 92680 SUB INP/OBS CARE 3/50MIN Diagnoses Atrial fibrillation with rapid ventricular response I48.91 COPD exacerbation J44.1 Diabetes type 2, uncontrolled E11.65 Glycemic state: with hyperglycemia Chronic kidney disease N18.9 (3) Diabetes type 2, uncontrolled Glycemic state: with hyperglycemia Qualified Code(s): E11.65 - Type 2 diabetes mellitus with hyperglycemia
[2023-09-07 16:00] LABS: BUN Creatinine Ratio 24.3 (10-20); Calcium 9.7 mg/dl (8.6-10.3); Creatinine Clr Calc Pharmacy 26.3 ml/min; Est GFR (Non-African American) 27.6 ml/min; Potassium 4.8 mmol/L (3.5-5.1)
[2023-09-07] MEDS ORDERED: hydrALAZINE HCL 20 MG/ML VIAL IV PRN (20:01)
[2023-09-08] MEDS: CEFEPIME 2,000 MG in SYRINGE 0 ML IV SCH ×3 (00:01→23:15)
[2023-09-08] MEDS: oxyCODONE HCL IR 5 MG TAB (IMMEDIATE RELEASE) PO PRN ×2 (02:18→12:26)
[2023-09-08] MEDS: ALBUT/IPRATROP 3MG/0.5MG NEB 3 ML VIAL INH SCH ×6 (03:57→23:29)
[2023-09-08] MEDS: methylPREDNISolone 40 MG in SYRINGE 0 ML IV SCH ×3 (05:58→20:50)
[2023-09-08 07:07] LABS: BUN Creatinine Ratio 27.8 (10-20); Calcium 9.3 mg/dl (8.6-10.3); Creatinine Clr Calc Pharmacy 28.1 ml/min; Est GFR (African American) 34.8 ml/min; Potassium 5.1 mmol/L (3.5-5.1)
[2023-09-08] MEDS ORDERED: PHARMACY GLYCEMIC MGMT CONSULT PRN (07:29)
[2023-09-08] MEDS: SODIUM CHLOR 7% 4 ML NEB NEB SCH ×2 (07:29→19:46)
[2023-09-08] MEDS: BUDESONIDE 0.5 MG/2 ML VIAL (PULMICORT) INH SCH ×2 (07:29→19:46)
[2023-09-08 07:34] LABS: Magnesium 1.9 mg/dl (1.7-2.4)
[2023-09-08 07:35] LABS: Hematocrit (blood only) 35.9 % (37.0-47.0); Hemoglobin 10.9 g/dl (12.0-16.0); Mean Corpuscular Hgb Conc 30.4 g/dL (32.0-36.0); Mean Corpuscular Volume 89.1 fL (80.0-100.0); Mean Platelet Volume 10.5 fL (9.4-12.4); Platelet Count 484 K/uL (130-400); RDW Coefficient of Variation 17.7 % (11.5-14.5); RDW Standard Deviation 56.2 fL (36.4-46.3); Red Blood Count 4.03 M/uL (4.20-5.40); White Blood Count 22.67 K/ul (4.8-10.8)
[2023-09-08] MEDS ORDERED: INSULIN HUMAN REGULAR PER UNIT 5 UNITS in SYRINGE 4.95 ML IV ONE (08:00)
[2023-09-08] MEDS: INSULIN ASPART PER UNIT CHARGE SC SCH ×4 (08:58→21:07)
[2023-09-08] MEDS: buPROPion XL 150 MG TABCR PO SCH (09:00)
[2023-09-08] MEDS ORDERED: LANTUS PER UNIT CHARGE SC ONE ×2 (09:00→21:00)
[2023-09-08] MEDS: METOPROLOL TARTRATE 50 MG TAB PO SCH ×2 (09:00→20:51)
[2023-09-08] MEDS: APIXABAN 5 MG TABLET PO SCH ×2 (09:00→20:52)
[2023-09-08] MEDS: dilTIAZem HCL 180 MG CAPCR PO SCH (09:00)
[2023-09-08] MEDS: ACETAMINOPHEN 500 MG TAB PO SCH ×3 (09:01→20:53)
[2023-09-08] MEDS: DOXYCYCLINE HYCLATE 100 MG CAP PO SCH ×2 (09:01→20:51)
[2023-09-08] MEDS: FOLIC ACID 1 MG TAB PO SCH (09:01)
[2023-09-08] MEDS: LOSARTAN POTASSIUM 50 MG TAB PO SCH (09:01)
[2023-09-08] MEDS: ROSUVASTATIN CALCIUM 20 MG TAB PO SCH (09:01)
[2023-09-08] MEDS: ASPIRIN 81 MG ECTAB PO SCH (09:02)
[2023-09-08] MEDS: guaiFENesin 600 MG TABCR PO SCH ×2 (09:02→20:52)
[2023-09-08] MEDS: PANTOprazole 40 MG TAB PO SCH (09:02)
[2023-09-08] MEDS: UMECLIDINIUM/VILANTEROL 62.5/25MCG 7 PUFFS/INHALER INH SCH (09:03)
[2023-09-08] MEDS: FAMOTIDINE 20 MG in SYRINGE 3 ML IV SCH ×2 (09:06→20:50)
--- NOTE | 2023-09-08 09:53 | Pharmacy Report ---
Pharmacy Glycemic Short Note 2 - Date of Service September 08, 2023 - Glycemic Short BSG Results (Last 24 hours): 09/07/23 09/07/23 09/07/23 11:10 15:12 16:14 Glucose 189 H POC Glucose 371 H* 156 H 09/07/23 09/08/23 09/08/23 19:54 06:03 07:05 Glucose 380 H* POC Glucose 218 H 351 H* 09/08/23 07:07 Glucose POC Glucose 365 H* OUTPATIENT ANTIDIABETIC REGIMEN: * metformin 500 mg PO BIDM HbA1c: 10% (09/06/23) ASSESSMENT: * AMIE is a 73 year old female known to pharmacy glycemic service due to prior history of hyperglycemia in context of IV steroid use * Pharmacy consulted for glycemic management this morning due to labile BSGs/hyperglycemia this AM * Ordered methylprednisolone 40 mg IV q8h at this time * Will tighten carb ratio significantly today to correlate with past i npatient glycemic data * BSG of 365 mg/dL at time of consult - will increase basal, tighten carb ratio, and order one-time IV insulin bolus * BSG 241 mg/dL this afternoon, acceptable downward trend for today PLAN FOR INPATIENT GLYCEMIC CONTROL: * Hold outpatient oral diabetes medications * Basal insulin * Lantus 40 units SQ daily * Lantus 0-10 units SC HS (see EHR for details) * Bolus insulin * NovoLog per scale ACHS or Q6hrs while NPO * Goal Range: Low 110 mg/dL - High 140 mg/dL * Correction Factor: 15 mg/dL/unit * Nutritional / Prandial insulin per carb ratio of 1 unit per 3 grams CHO consumed
[2023-09-08] MEDS: PATIROMER CALCIUM SORBITEX 8.4 GM PACK PO SCH (10:25)
[2023-09-08] MEDS ORDERED: POLYETHYLENE (MIRALAX) 17 GM PACK PO ONE (12:46)
[2023-09-08] MEDS ORDERED: bisacodyL 10 MG SUPP PR STA (12:46)
--- NOTE | 2023-09-08 14:31 | Hospitalist Progress Note ---
Date of Service September 08, 2023 Assessment & Plan (1) COPD exacerbation: Plan: This now seems to be bronchitis associate with exacerbation of her COPD. Patient now on cefepime azithromycin and intravenous Solu-Medrol. Hypertonic saline to mobilize secretions with Mucinex and flutter valve tapering steroids to prednisone therapy at this time (2) Atrial fibrillation with rapid ventricular response: Plan: Patient with atrial fibrillation rapid ventricular response in the face of previous severe COPD. Rate is being controlled normal sinus rhythm has been restored with home diltiazem and metoprolol Elevated troponin is likely demand ischemia from her medical illness Patient has chest pain associated with her A-fib. She converted to sinus rhythm later in the afternoon 09/06 chest pain is improved Carafate and Pepcid to her regimen to help any GI origin of the discomfort following her hemoglobin levels have been stable (3) Diabetes type 2, uncontrolled: Plan: uncontrolled diabetes likely spurred on by physiological stressors and steroid tapering dose. We will have basal bolus insulin with pharmacy oversight hyperkalemia patient did receive patiromer (4) Chronic kidney disease: Plan: Chronic kidney disease stage III remained stable Plan Will resume DOAC for atrial fibrillation and DVT prevention Admission and Anticipated Discharge Date Admission Date: September 05, 2023 Subjective patient feels improved emotions are more stable continues with a loose p roductive cough. has some constipation stubborn to control diabetes Physical Exam Physical Exam: Loose productive cough, expiratory wheezes however improved air movement Card exam is regular distant abd is soft and non tender Results & Data Results & Data Vital Signs (Past 12 Hours) Vital Signs Temp Pulse Resp BP BP Pulse Ox O2 Del Method 09/08/23 13:15 Nasal Cannula 09/08/23 11:11 98.6 F 83 18 176/78 H 91 Nasal Cannula 09/08/23 10:58 76 16 94 Nasal Cannula 09/08/23 07:53 98.4 F 82 17 177/83 H 94 Nasal Cannula 09/08/23 07:29 72 16 Nasal Cannula 09/08/23 03:58 74 18 93 Nasal Cannula 09/08/23 02:48 98.4 F 77 20 172/78 H 91 Nasal Cannula O2 Flow Rate 09/08/23 13:15 4 09/08/23 11:11 3 09/08/23 10:58 3 09/08/23 07:53 2 10/16/23 07:29 3 09/08/23 03:58 4 09/08/23 02:48 4 Laboratory Results reviewed CBC reviewed chemistry Medications Administered discontinue air change steroids to prednisone p.o. PG Care Time/CCT Total # of Minutes Spent Total Time Spent with Patient: Total time spent is greater than 50% in coordination of care (as documented) at patient's floor/unit and/or counseling patient: Coding Level of Care Code 22844 SUB INP/OBS CARE 3/50MIN Diagnoses COPD exacerbation J44.1 Atrial fibrillation with rapid ventricular response I48.91 Diabetes type 2, uncontrolled E11.65 Glycemic state: with hyperglycemia Chronic kidney disease N18.9 (3) Diabetes type 2, uncontrolled Glycemic state: with hyperglycemia Qualified Code(s): E11.65 - Type 2 diabetes mellitus with hyperglycemia
--- NOTE | 2023-09-08 16:09 | CT Scan Report ---
CT OF THE HEAD WITHOUT CONTRAST CLINICAL HISTORY: eval [place] COMPARISON STUDY: Head CT April 20, 2022. CT DOSE: 938. mGy.cm TECHNIQUE: Helical axial images of the head were obtained without IV contrast. Automated exposure con trol was utilized for the study. A dose lowering technique was utilized adhering to the principles o f ALARA. FINDINGS: This exam is mildly compromised by motion artifact. Bilateral basal ganglia calcification i s again noted. White matter hypodensities are similar to prior exam and favor small vessel disease. N o acute intracranial hemorrhage, midline shift or mass effect is present. The ventricular system is u nremarkable. The basal cisterns are patent. No extra-axial collections are present. There are no find ings to suggest acute dural sinus thrombosis or acute territorial infarct. No significant calvarial a bnormalities are present. Visualized portions of the sinuses and mastoid air cells are clear. IMPRESSION: No acute intracranial findings. No significant change in appearance of the brain. ACT 112: Negative or not required by law. Electronically signed by: Cheng Arevalo M.D. 09/08/2023 4:08 PM
[2023-09-09] MEDS ORDERED: INSULIN ASPART PER UNIT CHARGE SC SCH (02:00)
[2023-09-09] MEDS: ALBUT/IPRATROP 3MG/0.5MG NEB 3 ML VIAL INH SCH ×6 (02:16→23:57)
[2023-09-09] MEDS: oxyCODONE HCL IR 5 MG TAB (IMMEDIATE RELEASE) PO PRN ×4 (05:22→20:13)
[2023-09-09 06:23] LABS: Mean Corpuscular Hemoglobin 26.7 pg (25.0-34.0); Mean Corpuscular Hgb Conc 30.6 g/dL (32.0-36.0); Mean Corpuscular Volume 87.4 fL (80.0-100.0); Nucleated RBC # (auto) 0.02 K/uL (0.00-0.12); Nucleated RBC % (auto) 0.1 %; Platelet Count 478 K/uL (130-400); RDW Coefficient of Variation 17.8 % (11.5-14.5); RDW Standard Deviation 57.1 fL (36.4-46.3); Red Blood Count 4.12 M/uL (4.20-5.40); White Blood Count 18.13 K/ul (4.8-10.8)
[2023-09-09 06:41] LABS: BUN Creatinine Ratio 36.2 (10-20); Calcium 9.4 mg/dl (8.6-10.3); Creatinine Clr Calc Pharmacy 31.7 ml/min; Est GFR (African American) 40.5 ml/min
[2023-09-09] MEDS: BUDESONIDE 0.5 MG/2 ML VIAL (PULMICORT) INH SCH ×2 (07:26→19:45)
[2023-09-09] MEDS: SODIUM CHLOR 7% 4 ML NEB NEB SCH ×2 (07:27→19:45)
[2023-09-09] MEDS: UMECLIDINIUM/VILANTEROL 62.5/25MCG 7 PUFFS/INHALER INH SCH (08:00)
[2023-09-09] MEDS: POLYETHYLENE (MIRALAX) 17 GM PACK PO SCH (08:00)
[2023-09-09] MEDS: predniSONE 20 MG TAB PO SCH (08:01)
[2023-09-09] MEDS: buPROPion XL 150 MG TABCR PO SCH (08:01)
[2023-09-09] MEDS: LOSARTAN POTASSIUM 50 MG TAB PO SCH (08:01)
[2023-09-09] MEDS: DOXYCYCLINE HYCLATE 100 MG CAP PO SCH ×2 (08:01→20:11)
[2023-09-09] MEDS: FOLIC ACID 1 MG TAB PO SCH (08:01)
[2023-09-09] MEDS: ROSUVASTATIN CALCIUM 20 MG TAB PO SCH (08:01)
[2023-09-09] MEDS: PANTOprazole 40 MG TAB PO SCH (08:01)
[2023-09-09] MEDS: METOPROLOL TARTRATE 50 MG TAB PO SCH ×2 (08:01→20:12)
[2023-09-09] MEDS: ACETAMINOPHEN 500 MG TAB PO SCH ×3 (08:01→20:12)
[2023-09-09] MEDS: APIXABAN 5 MG TABLET PO SCH ×2 (08:02→20:11)
[2023-09-09] MEDS: dilTIAZem HCL 180 MG CAPCR PO SCH (08:02)
[2023-09-09] MEDS: ASPIRIN 81 MG ECTAB PO SCH (08:02)
[2023-09-09] MEDS: guaiFENesin 600 MG TABCR PO SCH ×2 (08:02→20:12)
[2023-09-09] MEDS: INSULIN ASPART PER UNIT CHARGE SC SCH ×4 (08:07→20:28)
[2023-09-09] MEDS: FAMOTIDINE 20 MG in SYRINGE 3 ML IV SCH ×2 (08:07→20:28)
--- NOTE | 2023-09-09 08:23 | Pharmacy Report ---
Pharmacy Glycemic Short Note 2 - Date of Service September 09, 2023 - Glycemic Short BSG Results (Last 24 hours): 09/08/23 09/08/23 09/08/23 10:06 10:10 10:46 Glucose POC Glucose 466 H* 429 H* 401 H* 09/08/23 09/08/23 09/08/23 10:48 11:17 13:37 Glucose POC Glucose 389 H* 360 H* 241 H 09/08/23 09/08/23 09/09/23 16:06 20:44 02:20 Glucose POC Glucose 134 H 276 H 196 H 09/09/23 09/09/23 05:35 07:22 Glucose 286 H POC Glucose 284 H OUTPATIENT ANTIDIABETIC REGIMEN: * metformin 500 mg PO BIDM HbA1c: 10% (09/06/23) ASSESSMENT: 09/09/23: * Hyperglycemia again yesterday w/ elevated fasting BSG of 284 mg/dL this morning * Steroids changed from q8h Solu-medrol to prednisone 40 mg PO daily starting this AM * Will change basal to incorporate NPH in order to cover steroids * Will tighten carb ratio this morning and reassess at lunchtime w/ the change in steroids * Will further tighten carb ratio given 276 mg/dL at lunch 09/08/23: * JVerna is a 73 year old female known to pharmacy glycemic service due to prior history of hyperglycemia in context of IV steroid use * Pharmacy consulted for glycemic management this morning due to labile BSGs/hyperglycemia this AM * Ordered methylprednisolone 40 mg IV q8h at this time * Will tighten carb ratio significantly today to correlate with past inpatient glycemic data * BSG of 365 mg/dL at time of consult - will increase basal, tighten carb ratio, and order one-time IV insulin bolus * BSG 241 mg/dL this afternoon, acceptable downward trend for today PLAN FOR INPATIENT GLYCEMIC CONTROL: * Hold outpatient oral diabetes medications * Basal insulin * Lantus 25 units SQ daily, 10 units SC HS (if BSG > 160 mg/dL) * NPH 25 units SC daily w/ prednisone 40 mg (~0.4 unit/kg) * Bolus insulin * NovoLog per scale ACHS or Q6hrs while NPO * Goal Range: Low 110 mg/dL - High 140 mg/dL * Correction Factor: 15 mg/dL/unit * Nutritional / Prandial insulin per carb ratio of 1 unit per 2 grams CHO consumed
--- NOTE | 2023-09-09 08:49 | Hospitalist Progress Note ---
Date of Service September 09, 2023 Assessment & Plan (1) COPD exacerbation: Plan: This now seems to be bronchitis/pneumonitis associate with exacerbation of her COPD. Patient now on cefepime azithromycin and intravenous tapering steroids to prednisone therapy Hypertonic saline to mobilize secretions with Mucinex and flutter valve overall feeling good open the palliative care discussion for symptom management prior to going home (2) Atrial fibrillation with rapid ventricular response: Plan: Patient with atrial fibrillation rapid ventricular response in the face of previous severe COPD. Rate is being controlled normal sinus rhythm has been restored with home diltiazem and metoprolol Elevated troponin is likely demand ischemia from her medical illness Patient has chest pain associated with her A-fib. She converted to sinus rhythm later in the afternoon 09/06 chest pain is improved Carafate and Pepcid to her regimen to help any GI origin of the discomfort following her hemoglobin levels have been stable (3) Diabetes type 2, uncontrolled: Plan: uncontrolled diabetes likely spurred on by physiological stressors and steroid tapering dose. We will have basal bolus insulin with pharmacy oversight hopeful improved this week taper to prednisone p.o. hyperkalemia patient did receive patiromer now resolved (4) Chronic kidney disease: Plan: Chronic kidney disease stage III remained stable Plan Will resume DOAC for atrial fibrillation and DVT prevention Admission and Anticipated Discharge Date Admission Date: September 05, 2023 Subjective patient feels improved emotions are more stable continues with a loose productive cough. patient feels she is improving to go home but is actually worried about dying and feeling short of breath. In the past she had issues with pain and her primary care provider has been resistant to prescribing controlled substances. We spoke about palliative care and she is in agreement for palliative care consultation stubborn to control diabetes improving as we taper steroid Physical Exam Physical Exam: Loose less productive cough, expiratory wheezes however improved air movement Card exam is regular distant abd is soft and non tender Results & Data Results & Data Vital Signs (Past 12 Hours) Vital Signs Temp Pulse Pulse Resp BP BP Pulse Ox 09/09/23 07:40 09/09/23 07:27 72 18 92 09/09/23 07:20 98.6 F 72 20 165/76 H 93 09/09/23 02:52 98.1 F 77 18 177/76 H 94 09/09/23 02:18 74 16 95 09/08/23 23:35 97.9 F 65 16 153/78 H 96 09/08/23 23:29 78 18 96 09/08/23 23:25 72 09/08/23 22:46 O2 Del Method O2 Flow Rate 09/09/23 07:40 Nasal Cannula 4 09/09/23 07:27 Nasal Cannula 5 09/09/23 07:20 Nasal Cannula 5 09/09/23 02:52 Nasal Cannula 4 09/09/23 02:18 Nasal Cannula 4 09/08/23 23:35 Nasal Cannula 4 09/08/23 23:29 Nasal Cannula 4 09/08/23 23:25 09/08/23 22:46 Nasal Cannula 4 Laboratory Results reviewed CBC reviewed chemistry PG Care Time/CCT Total # of Minutes Spent Total Time Spent with Patient: Total time spent is greater than 50% in coordination of care (as documented) at patient's floor/unit and/or counseling patient: Coding Level of Care Code 45111 SUB INP/OBS CARE 2/35MIN Diagnoses COPD exacerbation J44.1 Atrial fibrillation with rapid ventricular response I48.91 Diabetes type 2, uncontrolled E11.65 Glycemic state: with hyperglycemia Chronic kidney disease N18.9 (3) Diabetes type 2, uncontrolled Glycemic state: with hyperglycemia Qualified Code(s): E11.65 - Type 2 diabetes mellitus with hyperglycemia
[2023-09-09] MEDS ORDERED: LANTUS PER UNIT CHARGE SC SCH (09:00)
[2023-09-09] MEDS: INSULIN HUMAN NPH SC SCH (10:52)
[2023-09-09] MEDS: CEFEPIME 2,000 MG in SYRINGE 0 ML IV SCH (12:00)
[2023-09-09] MEDS ORDERED: LANTUS PER UNIT CHARGE SC ONE (21:00)
[2023-09-10] MEDS: CEFEPIME 2,000 MG in SYRINGE 0 ML IV SCH ×2 (00:10→12:03)
[2023-09-10] MEDS: oxyCODONE HCL IR 5 MG TAB (IMMEDIATE RELEASE) PO PRN ×3 (01:28→15:35)
[2023-09-10] MEDS: ALBUT/IPRATROP 3MG/0.5MG NEB 3 ML VIAL INH SCH ×4 (02:59→16:42)
[2023-09-10] MEDS ORDERED: INSULIN ASPART PER UNIT CHARGE SC SCH ×2 (07:30→11:30)
[2023-09-10] MEDS: SODIUM CHLOR 7% 4 ML NEB NEB SCH (07:31)
[2023-09-10] MEDS: BUDESONIDE 0.5 MG/2 ML VIAL (PULMICORT) INH SCH (07:32)
[2023-09-10] MEDS ORDERED: LANTUS PER UNIT CHARGE SC SCH ×2 (09:00→21:00)
[2023-09-10] MEDS: APIXABAN 5 MG TABLET PO SCH (09:22)
[2023-09-10] MEDS: guaiFENesin 600 MG TABCR PO SCH (09:23)
[2023-09-10] MEDS: ACETAMINOPHEN 500 MG TAB PO SCH ×2 (09:23→14:50)
[2023-09-10] MEDS: LOSARTAN POTASSIUM 50 MG TAB PO SCH (09:24)
[2023-09-10] MEDS: ASPIRIN 81 MG ECTAB PO SCH (09:24)
[2023-09-10] MEDS: METOPROLOL TARTRATE 50 MG TAB PO SCH (09:24)
[2023-09-10] MEDS: POLYETHYLENE (MIRALAX) 17 GM PACK PO SCH (09:24)
[2023-09-10] MEDS: dilTIAZem HCL 180 MG CAPCR PO SCH (09:25)
[2023-09-10] MEDS: ROSUVASTATIN CALCIUM 20 MG TAB PO SCH (09:25)
[2023-09-10] MEDS: predniSONE 20 MG TAB PO SCH (09:25)
[2023-09-10] MEDS: buPROPion XL 150 MG TABCR PO SCH (09:25)
[2023-09-10] MEDS: DOXYCYCLINE HYCLATE 100 MG CAP PO SCH (09:26)
[2023-09-10] MEDS: FOLIC ACID 1 MG TAB PO SCH (09:26)
[2023-09-10] MEDS: PANTOprazole 40 MG TAB PO SCH (09:27)
--- NOTE | 2023-09-10 09:37 | Pharmacy Report ---
Pharmacy Glycemic Short Note 2 - Date of Service September 10, 2023 - Glycemic Short BSG Results (Last 24 hours): 09/09/23 09/09/23 09/09/23 11:24 16:25 20:15 POC Glucose 276 H 77 163 H 09/10/23 07:30 POC Glucose 212 H OUTPATIENT ANTIDIABETIC REGIMEN: * metformin 500 mg PO BIDM HbA1c: 10% (09/06/23) ASSESSMENT: 09/10: * BSGs 71-325-454xu/dL the last 24h. Received 60 units of basal and 80units of bolus insulin yesterday. * Tolerating diet. Continues on prednisone 40mg daily and cefepime. * Titrate Lantus this AM to 35 units given fasting BSG 212mg/dl. Will continue NPH for prandial/steroid coverage. Novolog parameters adjusted to include a tighter carb ratio at breakfast and dinner and loosened at lunch. BSG dropped from 276-->77mg/dl from lunch to dinner yesterday (likely a combo of bolus insulin and NPH peak). 09/09/23: * Hyperglycemia again yesterday w/ elevated fasting BSG of 284 mg/dL this morning * Steroids changed from q8h Solu-medrol to prednisone 40 mg PO daily starting this AM * Will change basal to incorporate NPH in order to cover steroids * Will tighten carb ratio this morning and reassess at lunchtime w/ the change in steroids * Will further tighten carb ratio given 276 mg/dL at lunch 09/08/23: * AMIE is a 73 year old female known to pharmacy glycemic service due to prior history of hyperglycemia in context of IV steroid use * Pharmacy consulted for glycemic management this morning due to labile BSGs/hyperglycemia this AM * Ordered methylprednisolone 40 mg IV q8h at this time * Will tighten carb ratio significantly today to correlate with past inpatient glycemic data * BSG of 365 mg/dL at time of consult - will increase basal, tighten carb ratio, and order one-time IV insulin bolus * BSG 241 mg/dL this afternoon, acceptable downward trend for today PLAN FOR INPATIENT GLYCEMIC CONTROL: * Hold outpatient oral diabetes medications * Basal insulin * Lantus 35 units SQ daily, 10 units SC HS (if BSG > 180 mg/dL) * NPH 25 units SC daily w/ prednisone 40 mg (~0.4 unit/kg) * Bolus insulin * NovoLog per scale ACHS or Q6hrs while NPO * Goal Range: Low 110 mg/dL - High 140 mg/dL * Correction Factor: 15 mg/dL/unit (breakfast, dinner) 20mg/dl/unit (lunch, HS) * Nutritional / Prandial insulin per carb ratio of 1 unit per 2 grams (breakfast, dinner), 3 grams (lunch, HS) CHO consumed
[2023-09-10] MEDS: FAMOTIDINE 20 MG in SYRINGE 3 ML IV SCH (09:39)
[2023-09-10] MEDS: UMECLIDINIUM/VILANTEROL 62.5/25MCG 7 PUFFS/INHALER INH SCH (09:42)
[2023-09-10] MEDS ORDERED: NovoLIN-N (NPH) PER UNIT CHARGE SQ ONE (10:30)
[2023-09-10] MEDS: INSULIN HUMAN NPH SC SCH (10:40)
--- NOTE | 2023-09-10 16:43 | Palliative Care Consultation ---
Date of Consultation September 10, 2023 Assessment & Plan (1) Dyspnea and respiratory abnormalities: (2) Weakness generalized: (3) Anxiety about health: (4) Palliative care by specialist: Met with pt/family. Provided overview of Palliative Medicine, a subspecialty that provides specialized medical care for people living with a serious illness by offering a focus on quality of life. Palliative Medicine is often conflated with hospice: I advised patient/family that Palliative and hospice can be partners but we are not the same. It is important to understand the difference so that we may be informed, and not afraid. Palliative Medicine works to improve QOL through reduction of symptom burden/more control over their illness, for both the patient and family. Palliative medicine clinicians are board certified, specially-trained and another member of the patient's medical care team. We often provide an extra layer of support because our care is based on the needs of the patient, not the prognosis; as such, it's appropriate at any age/advancing stage of a serious illness and can be provided along with curative treatment. Palliative Medicine clinicians are also trained in advanced communication methodologies, to facilitate complex discussions about advanced illness planning, which are needed to help assure that the treatment choices match the patient's goals, aka delivering Goal Concordant care. Finally, we discussed that hospice is a visiting nurse service that focuses on care delivered at the very end of life for patients with terminal illness, with life expectancy less than 6 month. (5) Advanced care planning/counseling discussion: 45-minute [id number] advance care planning discussion was held with patient at the bedside. Patient was very anxious and frustrated at the time of my visit. She was tangential and at times rambles off topic. She is very focused on the fact that she does not have a ride home despite multiple reassurances that her is sending someone else with her portable oxygen. She repeatedly states "they have already kicked me out of here, I am going to have to walk home and I live in [place]. [place] is [place] hour from here. That is what can happen to me. I Heather anyway because I will have to walk home." Though she is anticipating a discharge home with the individual who came to pick her up at the hospital did not bring her portable oxygen. Her was called and is now sending someone else to come pick her up along with her portable oxygen. She is frustrated that he did not come on his own. But then also notes that he has a new cancer diagnosis. She tells me that she understands she has an end-stage lung disease and wants to focus on time at home with her not coming back and forth to the hospital. Hospice was brought up to her earlier in this admission. She asks what services they would provide.We discussed the goals of hospice as a patient service and the goals of care; we discussed EOL trajectories and transitions estrella the emotional impact of realizing mortality as a concrete reality from prior abstract considerations. Pt was reassured that no matter where they are along this trajectory, they are not alone - their medical team will remain by their side through their journey. Discussed the pros/cons of accepting help when especially weakened and distressed by pain-which would also help provide relief/decrease caregiver burden/strain. I provided education about the hospice benefit: an interdisciplinary program offered by nurses, nurses aides, social workers, chaplains and a medical assistant supervisor for patients with a terminal condition and a life expectancy of less than 6 months. This is covered by Medicare at 100%/no out of pocket expense to patient and all meds/supplies needed by patient for the reason they are on hospice are paid for/covered by hospice. The goal is assure quality of life of the patient in their home setting (home, residential, inpatient hospice setting) by providing symptoms management, psychosocial and spiritual support. H owever, they cannot offer 24 hours care and if the family is unable to provide that care, they will have to consider personal care with out of pocket cost vs. residential placement. We discussed the goals of hospice as a patient service and the goals of care; we discussed EOL trajectories and transitions estrella the emotional impact of realizing mortality as a concrete reality from prior abstract considerations. Pt was reassured that no matter where they are along this trajectory, they are not alone - their medical team will remain by their side through their journey. Discussed the pros/cons of accepting help when especially weakened and distressed by pain-which would also help provide relief/decrease caregiver burden/strain. She is in agreement with a referral to hospice. (6) Encounter for hospice care discussion: (7) COPD, very severe: Plan * She tells me she want shospice added to her care bc goal now is to be more comfortable and remain home. She is afraid of uncontrolled pain and dyspnea * She has good relief with oral Roxanol and would like to continue this * She would like to be enrolled in home hospice so that she can focus on quality of life and making the most of the time she has with her . She notes that he has a new cancer diagnosis that time may be limited for both of them, however she feels that she will first. * I provided patient with my contact information and offered to follow-up in our outpatient clinic or by telemedicine if this would be easier for her. * I have updated nursing, primary team and care management. Hospice referral can be faxed in for her today and they can contact her tomorrow when she is home to schedule a time to come visit proceed with an initial intake and admission. Thank you for allowing us to participate in the ongoing care of this patient. Please don't hesitate to call or page with any additional concerns. Dr. Karo Rivera DNP Director, Palliative Care History of Present Illness Reason for Consultation: goc, symptom mgt, terminal COPD Attending Physician: Marcelo Witt MD History of Present Illness Admitted 09/05 with AECOPD, A fib + chest discomfort very anxious at baseline tells me she has cancer which cannot be treated d/t her adv lung disease and has new cancer dx, time is running out for them both but she feels she will first and worries what will happen to him. she feels she needs more help at home. she states someone told her about hospice and she asks if we director of health education discuss this more today. she has had decent relief with oral Roxanol for dyspnea Allergies Allergy/AdvReac Type Severity Reaction Status Date / Time diflunisal AdvReac Intermediate HEART RACES Verified 12/11/22 22:28 Home Medications Medication Instructions Recorded Confirmed Type albuterol sulfate 90 mcg/actuation 2 puff inhalation Q6 PRN Shortness 08/28/20 09/05/23 History aerosol inhaler (Ventolin HFA) Of Breath Or Wheezing aspirin 81 mg tablet,delayed 81 mg PO QAM 08/28/20 09/05/23 History release (Uri Low Dose Aspirin) atorvastatin 40 mg tablet (Lipitor) 40 mg PO QAM 08/28/20 09/05/23 History budesonide 0.5 mg/2 mL suspension 0.5 mg inhalation BID 08/28/20 09/05/23 History for nebulization (Pulmicort) metformin 1,000 mg tablet 1,000 mg PO BID 08/28/20 09/05/23 History ipratropium 0.5 mg-albuterol 3 mg 3 ml inhalation QID PRN Shortness 09/25/20 09/05/23 History (2.5 mg base)/3 mL nebulization Of Breath Or Wheezing soln blood sugar diagnostic (OneTouch #50 ea 06/02/21 03/24/22 Rx Verio test strips) blood-glucose meter (OneTouch #1 ea 06/02/21 03/24/22 Rx Verio Meter) lancets 33 gauge (OneTouch Delica #100 ea 06/02/21 03/24/22 Rx Lancets) tiotropium 2.5 mcg-olodaterol 2.5 2 puff inhalation QAM 09/02/21 09/05/23 History mcg/actuation mist for inhalation (Stiolto Respimat) folic acid 1 mg tablet 1 mg PO QAM 03/24/22 09/05/23 History losartan 50 mg tablet 50 mg PO QAM 03/24/22 09/05/23 History ipratropium 0.5 mg-albuterol 3 mg 3 ml inhalation Q4H PRN shortness 12/13/22 09/05/23 Rx (2.5 mg base)/3 mL nebulization of breath #90 mL soln budesonide-formoterol HFA 160 2 puff inhalation DAILY PRN 08/23/23 09/05/23 History mcg-4.5 mcg/actuation aerosol Shortness Of Breath inhaler (Symbicort) bupropion HCl 150 mg 24 hr tablet, 150 mg PO DAILY 08/23/23 09/05/23 History extended release furosemide 20 mg tablet 20 mg PO DAILY 08/23/23 09/05/23 History rosuvastatin 20 mg tablet 20 mg PO DAILY 08/23/23 09/05/23 History pantoprazole 40 mg tablet,delayed 40 mg PO QAM #30 tabs 08/26/23 09/05/23 Rx release apixaban 5 mg tablet (Eliquis) 5 mg PO BID #60 tabs 09/10/23 Rx diltiazem HCl 180 mg 180 mg PO QAM #30 caps 09/10/23 Rx capsule,extended release 24 hr doxycycline hyclate 100 mg capsule 100 mg PO BID #10 caps 09/10/23 Rx glipizide 5 mg tablet 5 mg PO DAILY #30 tabs 09/10/23 Rx metoprolol succinate 50 mg 50 mg PO BID #60 tabs 09/10/23 Rx tablet,extended release 24 hr oxycodone 5 mg tablet 5 mg PO TID PRN Pain #30 tabs 09/10/23 Rx prednisone 10 mg tablet See Rx Instructions .Route 09/10/23 09/05/23 Rx .COMPLEX #40 tabs Patient History Medical History (Updated 09/10/23 @ 21:21 by Karo Rivera DNP) AAA (abdominal aortic aneurysm) Abdominal pain Acute exacerbation of chronic low back pain Acute hypercapnic respiratory failure Acute hypotension Acute kidney injury Acute on chronic respiratory failure with hypoxia Acute on chronic respiratory failure with hypoxia and hypercapnia Acute UTI TATY (acute kidney injury) AMS (altered mental status) Candidiasis of mouth and esophagus Chronic kidney disease, stage 3a Chronic low back pain Chronic pain syndrome COPD (chronic obstructive pulmonary disease) COPD exacerbation Diabetes mellitus Diabetes type 2, uncontrolled Diaphragmatic hernia (10/31/11) DVT prophylaxis History of knee replacement Hyperkalemia Hyperlipidemia Hypertension Left peroneal nerve palsy Respiratory failure Severe muscle deconditioning Syncope Tobacco abuse Surgical History H/O Achilles tendon repair (~2007) H/O: hysterectomy History of appendectomy History of bilateral oophorectomies History of lithotripsy (~2007) Hx of cholecystectomy Family History Other Family history non-contributory Social History Smoking Status: Current every day smoker Tobacco Type: Cigarettes Cigarettes Per Day: 10; Second Hand Exposure: Yes; Do You Dip or Chew Tobacco: No; Hx Alcohol Use: No Hx Substance Use: No Preferred Language: Maori Communication Ability: Effective Warp Knitter Required: No Beliefs That Will Affect Care: None marital status: Current Living Situation: Alone How many Children do You have: 3 Feels Safe at Home: Yes Assistive Devices: Nebulizer, Oxygen - Continuous, Walker and Wheelchair Review of Systems Review of Systems: All systems reviewed & are unremarkable except as noted in Subjective Physical Exam Constitutional: + acute distress, + ill appearing, + physical limitations, + frail appearing and cooperative Eyes: PERRL, conjunctivae normal, anicteric sclerae ENMT: Mouth: + dry oral mucous membranes and + poor dentition Neck: normal visual inspection, trachea midline and + short neck Respiratory: + respiratory distress, + labored breathing, + uses accessory muscles, + cough, + prolonged expiratory phase, + pursed lip breathing and + tripod positioning Auscultation: + diminished lung sounds, + crackles and + wheezes Cardiovascular: Rate/Rhythm: + tachycardic Gastrointestinal (Abdomen): Inspection/Auscultation: abdomen normal to inspection and normal bowel sounds Musculoskeletal: Gait: + antalgic gait Hip: + limited ROM of hip Generalized weakness Skin: + turgor decreased, + dry skin and + pallor Neurologic: PERRL, EOMI, accommodation nl, no face palsy, no dysarthria Psychiatric: Orientation: oriented x 3 Apperance: appropriately dressed Eye Contact: + fair eye contact Speech: + pressured speech and + loud speech Affect: + anxious affect, + tearful affect and + labile affect Mood: + anxious mood and + dysphoric mood Thought Process: + circumstantial thought process, + tangential thought process and + perseveration Thought Content: + preoccupation, + cognitive distortions and + derealization Estimated Intelligence: + below average estimated intelligence Insight: + limited insight Judgment: + limited judgement Results & Data Vital Signs (Past 12 Hours) Vital Signs Temp Pulse Pulse Resp BP BP Pulse Ox 09/10/23 14:00 36.4 C L 63 20 164/84 H 176/71 H 100 09/10/23 07:30 60 09/10/23 07:30 60 09/10/23 11:16 36.4 C L 63 20 164/84 H 100 09/10/23 11:12 70 20 96 09/10/23 08:22 09/10/23 08:02 76 20 90 09/10/23 07:27 37.0 C 76 18 122/85 95 09/10/23 05:30 60 176/71 H O2 Del Method O2 Flow Rate 09/10/23 14:00 09/10/23 07:30 09/10/23 07:30 09/10/23 11:16 Nasal Cannula, Nebulizer 5 10/18/23 11:12 Nasal Cannula 4 09/10/23 08:22 Nasal Cannula 5 09/10/23 08:02 Nasal Cannula 4 09/10/23 07:27 Nasal Cannula 5 09/10/23 05:30 Laboratory Results Data reviewed Diagnostic Findings Data reviewed PG Care Time/CCT Total # of Minutes Spent Total Time Spent: 120 Total Time Spent with Patient: Total time spent is greater than 50% in coordination of care (as documented) at patient's floor/unit and/or counseling patient: 45min ACP remaining time care coordination, pt eval, data review Advanced Care Planning 85901 Advanced Care Planning 30 Min 92724 Advanced Care Planning Additional 30 [place] [address] IN/OBS CONSULT LVL 5,80M Patient Type New History Comprehensive Exam Comprehensive Medical Decision Making High Complexity Diagnoses Dyspnea and respiratory abnormalities R06.00; R06.89 Weakness generalized R53.1 Anxiety about health F41.8 Palliative care by specialist Z51.5 Advanced care planning/counseling discussion Z71.89 Encounter for hospice care discussion Z71.89 COPD, very severe J44.9 Additional Codes Advanced Care Planning - 02223 Advanced Care Planning 30 Min: 23419 Advanced Care Planning 30 Min ([id number]) Advanced Care Planning - 80391 Advanced Care Planning Additional 30 Min: 54602 Advanced Care Planning Additional 30 Min ([id number])
--- NOTE | 2023-09-10 16:51 | Discharge Summary ---
Date of Service September 10, 2023 Admission HPI Per Admitting Provider 73-year-old female discharged from on any 08/27/2023 after an admission with a COPD exacerbation. During her hospital stay she had 1 of 4 blood cultures positive for gram-positive cocci in chains all of the others remain negative. She was discharged on azithromycin and a prednisone taper. She presents today with A-fib RVR, shortness of breath, glucose of 500, hypomagnesemia. CT angiography does not show any pneumonia there is continued suggest bronchitis with mucous plugging on her CT of her abdomen including aortic aneurysm which is stable and pancreatic divisum in the emergency department for atrial Fibrillation she was given diltiazem drip she was started on antibiotics for leukocytosis and a bronchitis mucous plugging seen on CT and she her glucose managed with bolus insulin. Principal Diagnosis copd exacerbation acute on chronic bronchitis acute on chronic respiratory failure with hypoxia request for home hospice care \ Discharge Exam Loose less productive cough, expiratory wheezes however improved air movement Card exam is regular distant abd is soft and non tender Discharge Data Allergies Allergy/AdvReac Type Severity Reaction Status Date / Time diflunisal AdvReac Intermediate HEART RACES Verified 12/11/22 22:28 Consultations 09/05/23 07:51 ED Decision to Admit Stat 09/09/23 16:54 Consult Palliative Care Routine Ordered Studies 09/05/23 03:36 CT Abd and Pelvis [CT abd pelvis IV con only] Stat CT angio chest PE protocol Stat 09/08/23 12:45 CT head/brain wo con Routine Diabetes Follow up Diabetes Follow-up Needed for HgbA1c >9% Hospital Course (1) COPD exacerbation: This now seems to be bronchitis/pneumonitis associate with exacerbation of her COPD. Patient now on cefepime azithromycin tapering steroids to prednisone therapy bronchitis treated with doxycycline, required 4 L home oxygen overall feeling good open the palliative care discussion for symptom management prior to going home, may transition to home hospice (2) Atrial fibrillation with rapid ventricular response: Patient with atrial fibrillation rapid ventricular response in the face of previous severe COPD. Rate is being controlled normal sinus rhythm has been restored with home diltiazem increased dose and increased dose metoprolol Elevated troponin is likely demand ischemia from her medical illness Patient has chest pain associated with her A-fib. She converted to sinus rhythm later in the afternoon 09/06 chest pain is improved following her hemoglobin levels have been stable (3) Diabetes type 2, uncontrolled: uncontrolled diabetes likely spurred on by physiological stressors and steroid tapering dose. glipizide added to home regiment hyperkalemia patient did receive patiromer now resolved (4) Chronic kidney disease: Chronic kidney disease stage III remained stable Plan Will resume DOAC for atrial fibrillation and DVT prevention Total Time Total Time Spent Total Time Spent (In Minutes): greater than 30 minutes required for discharge Discharge Plan Discharge Items Patient Disposition: Home - Self-Care Reason For Visit: AFIB RVR, CH RESP FAILURE, BRONCHITIS Discharge Diagnosis: copd exacerbation atrial fibrillation Activity: Resume your previous activity Non-emergency contact: Primary Care Provider Call non-emergency contact if: your symptoms worsen Follow-up/Referrals: Rosi Borges CRNP [Primary Care Provider] - 09/11/23 11:00 am Diet: Carb Consistent or DM2 Addtl Attending Provider Instructions: Please take your prednisone tapering dose antibiotics as prescribed. During her hospital stay you had a rapid irregular heartbeat and subsequently been started on a blood thinner to help prevent blood clots from forming and causing a stroke Please discuss with primary care provider about continuing with palliative care as an outpatient to help control your symptoms of pain and anxiety associated with your severe lung disease Pending Studies at Discharge: No Stand-Alone Forms: [employer], Smoking Cessation Medications and DC Order Prescriptions: New doxycycline hyclate 100 mg Capsule 100 mg PO BID Qty: 10 0RF Eliquis 5 mg Tablet 5 mg PO BID Qty: 60 5RF diltiazem HCl 180 mg Capsule,Extended Release 24hr 180 mg PO QAM Qty: 30 5RF glipizide 5 mg tablet 5 mg PO DAILY Qty: 30 0RF Rx Instructions: please take while on prednisone Continued ipratropium-albuterol 0.5 mg-3 mg(2.5 mg base)/3 mL solution for nebulization 3 ml INHALATION QID PRN (Reason: Shortness Of Breath Or Wheezing) atorvastatin [Lipitor] 40 mg tablet 40 mg PO QAM budesonide [Pulmicort] 0.5 mg/2 mL suspension for nebulization 0.5 mg inhalation BID aspirin [Uri Low Dose Aspirin] 81 mg Tablet,Delayed Release (Dr/Ec) 81 mg PO QAM albuterol sulfate [Ventolin HFA] 90 mcg/actuation HFA aerosol inhaler 2 puff INHALATION Q6 PRN (Reason: Shortness Of Breath Or Wheezing) metformin 1,000 mg tablet 1,000 mg PO BID (DME) blood-glucose meter [OneTouch Verio Meter] [facility] See Rx Instructions .ROUTE .MEDSUPPLY Qty: 1 0RF Rx Instructions: to test blood sugar 1-2 times/day (DME) OneTouch Verio test strips Strip See Rx Instructions .ROUTE .MEDSUPPLY Qty: 50 3RF Rx Instructions: test blood sugar 1-2 times per day (DME) lancets [OneTouch Delica Lancets] 33 gauge [facility] See Rx Instructions .ROUTE .MEDSUPPLY Qty: 100 3RF Rx Instructions: test sugar 1-2 times per day losartan 50 mg tablet 50 mg PO QAM folic acid 1 mg tablet 1 mg PO QAM furosemide 20 mg tablet 20 mg PO DAILY rosuvastatin 20 mg tablet 20 mg PO DAILY bupropion HCl 150 mg tablet extended release 24 hr 150 mg PO DAILY budesonide-formoterol [Symbicort] 160-4.5 mcg/actuation HFA aerosol inhaler 2 puff inhalation DAILY PRN (Reason: Shortness Of Breath) Rx Instructions: as directed pantoprazole 40 mg Tablet,Delayed Release (Dr/Ec) 40 mg PO QAM Qty: 30 0RF Stiolto Respimat 2.5-2.5 mcg/actuation mist 2 puff INHALATION QAM ipratropium-albuterol 0.5 mg-3 mg(2.5 mg base)/3 mL solution for nebulization 3 ml inhalation Q4H PRN (Reason: shortness of breath) Qty: 90 0RF Rx Instructions: until breathing returns to target peak flow/parameters oxycodone 5 mg tablet 5 mg PO TID PRN (Reason: Pain) Qty: 30 0RF Changed prednisone 10 mg tablet See Rx Instructions .ROUTE .COMPLEX Qty: 40 0RF Rx Instructions: 4 a day x 4 d>3 a day x 4 d>2 a day x 4 d>1 a day metoprolol succinate 50 mg tablet extended release 24 hr 50 mg PO BID Qty: 60 5RF Discontinued diltiazem HCl 120 mg capsule,extended release 24hr 120 mg PO DAILY Discharge Orders: Discharge Order (Routine); Ordered 09/10/23 Ordered By: Marcelo Cobb/Other Patient Handouts: High Blood Sugar (Hyperglycemia), Managing Type 2 Diabetes Admission Data Admit Date/Time: 09/05/23 09:44 Attending Provider: Marcelo Witt Admit Provider: Marcelo Witt Primary Care Provider: Rosi Borges Other Providers: Marcelo Witt ; Bessy Arreola Other Interventions: Discharge Summary Assessment (RN) Last Done: 09/10/23 14:00 Coding Level of Care Code 06949 INP/OBS DISCH >30 MIN Diagnoses COPD exacerbation J44.1 Atrial fibrillation with rapid ventricular response I48.91 Diabetes type 2, uncontrolled E11.65 Glycemic state: with hyperglycemia Chronic kidney disease N18.9
== END 2023-09-10 17:19 | disposition home health service (06) | DRG 308 ==
LOC: ED 03:20 → EDINP 09:44 → 2S 22:50
DX: Z79.84 Long term (current) use of oral hypoglycemic drugs; Z79.899 Other long term (current) drug therapy; Z79.52 Long term (current) use of systemic steroids; E83.42 Hypomagnesemia; Z79.01 Long term (current) use of anticoagulants; F41.9 Anxiety disorder, unspecified; I48.91 Unspecified atrial fibrillation; F17.210 Nicotine dependence, cigarettes, uncomplicated; Z51.5 Encounter for palliative care; J18.9 Pneumonia, unspecified organism; J20.9 Acute bronchitis, unspecified; J44.1 Chronic obstructive pulmonary disease with (acute) exacerbation; Z79.82 Long term (current) use of aspirin; J96.21 Acute and chronic respiratory failure with hypoxia; Z71.89 Other specified counseling; J44.0 Chronic obstructive pulmonary disease with (acute) lower respiratory infection; E11.22 Type 2 diabetes mellitus with diabetic chronic kidney disease; E87.5 Hyperkalemia; Z88.8 Allergy status to other drugs, medicaments and biological substances; I24.89 Other forms of acute ischemic heart disease; E11.65 Type 2 diabetes mellitus with hyperglycemia; N18.4 Chronic kidney disease, stage 4 (severe)

== ENCOUNTER 2023-09-21 16:18 | Inpatient (IN) ==
--- NOTE | 2023-09-21 16:33 | Emergency Department Note ---
Impression & Plan Acute exacerbation of chronic obstructive pulmonary disease, Hypoxia ED Provider Note NAME: DANIELLA FLANNERY AGE: 73 SEX: F : 1950 ARRIVES VIA: Ambulance INFORMANT: Patient, ED PROVIDER(S): Nicolas Becker MD CHIEF COMPLAINT: Shortness of breath MEDICAL DECISION MAKING: Patient presents due to concern for shortness of breath. IV was established and blood work is obtained along with a VBG lactate procalcitonin blood culture. The patient was ordered DuoNeb steroids magnesium. Chest x-ray obtained along with bio fire. Patient ordered doxycycline. Corning shows white count of 13 with hemoglobin of 10. Platelet count is unremarkable. Kidney function unremarkable. BSG elevated at 252. Lactate normal mag low at 1.5 but was ordered already. Mild hypercarbia with a PCO2 of 61 pH is 7 3. Pro-Wilder is not elevated. Bio fire negative. I did speak the on-call hospitalist service given the patient's hypoxia at home on her normal 4 L. Patient was admitted to the medicine service. Discussion w/ other healthcare providers: Dr. Ann inpatient medicine service Prior /Outside records reviewed: Reviewed a discharge summary from September 10. The patient was discharged after being admitted for COPD exacerbation along with acute on chronic bronchitis and acute on chronic respiratory failure with hypoxia. Patient was also noted to have A-fib with RVR at that time. Differential diagnosis: Reactive airway disease, pneumonia, pneumothorax, COPD, CHF, ACS, pulmonary embolism, musculoskeletal, GERD as well as other pathologies were considered. Diagnostics, as interpreted by me: ECG: Normal sinus rhythm, rate of 72, normal QRS, normal axis no ST elevations Q-wave noted in lead III Cardiac monitoring: An order was placed for continuous cardiac monitoring. The monitor shows a rate of 88 with sinus rhythm. Patient was placed on pulse oximetry Medical decision rules: Curb 65 score Imaging studies: I informally interpreted the patient's chest x-ray which does not show obvious pneumothorax with formal report to follow. HPI: Patient presents due to concern for shortness of breath. The patient states that it primarily began this morning. Patient does have a known history of COPD and is on chronic 4 L nasal cannula at all times. Patient has had productive cough with discolored sputum. The patient does still smoke 4 cigarettes daily. Patient does have a service liaison representative but does not member the name. Patient has not had any nausea vomiting. The patient does suffer from some chronic abdominal discomfort but states that this is unchanged. No chest pains. Patient does have chronic lower extremity edema which is unchanged. The patient did trial some medications at home for breathing but this did not significantly improve her treatments. EMS reported that the patient was 88% on her typical 4 L and did receive a DuoNeb treatment in route. Patient feels slightly improved thereafter. PAST MEDICAL HISTORY: See Below PAST SURGICAL HISTORY: See Below SOCIAL HISTORY: See Below HOME MEDICATIONS: See Below ALLERGIES: See Below VITALS: See Below PHYSICAL EXAMINATION: GENERAL: Mildly ill in appearance. Nasal cannula in place. EYE EXAM: Normal conjunctiva. PERRL, no anisocoria and EOM's grossly intact w/o pain. OROPHARYNX: Dry mucus membranes, grossly normal dentition. NECK: Supple, no nuchal rigidity, no adenopathy, non-tender. No signs of meningismus. FROM of the neck with good chin to chest and neck extension. No stridor. LUNGS: Inspiratory next. Wheezing noted normal chest wall mechanics. HEART: NSR, no MRG. ABDOMEN: Abdomen soft, non-tender, no masses, no rebound or guarding. BACK: No CVA TTP. SKIN: No rashes and no bruising. UPPER EXTREMITIES: Upper extremities are grossly normal. LOWER EXTREMITIES: Grossly normal, 1+ symmetric bilateral lower extremity edema without any calf pain or erythema. NEURO EXAM: A&O x3, cranial nerves II-XII grossly intact, normal speech, moves all 4 extremities. Past Med/Surg History Medical History AAA (abdominal aortic aneurysm) Abdominal pain Acute exacerbation of chronic low back pain Acute hypercapnic respiratory failure Acute hypotension Acute kidney injury Acute on chronic respiratory failure with hypoxia Acute on chronic respiratory failure with hypoxia and hypercapnia Acute UTI TATY (acute kidney injury) AMS (altered mental status) Candidiasis of mouth and esophagus Chronic kidney disease, stage 3a Chronic low back pain Chronic pain syndrome COPD (chronic obstructive pulmonary disease) COPD exacerbation Diabetes mellitus Diabetes type 2, uncontrolled Diaphragmatic hernia (10/31/11) DVT prophylaxis History of knee replacement Hyperkalemia Hyperlipidemia Hypertension Left peroneal nerve palsy Respiratory failure Severe muscle deconditioning Syncope Tobacco abuse Surgical History H/O Achilles tendon repair (~2007) H/O: hysterectomy History of appendectomy History of bilateral oophorectomies History of lithotripsy (~2007) Hx of cholecystectomy Family History Other Family history non-contributory Social History Smoking Status: Current every day smoker Tobacco Type: Cigarettes Cigarettes Per Day: 10; Second Hand Exposure: Yes; Do You Dip or Chew Tobacco: No; Hx Alcohol Use: No Hx Substance Use: No Preferred Language: Kenyan Communication Ability: Effective Compressed Gas Tester Required: No Beliefs That Will Affect Care: None marital status: Current Living Situation: Alone How many Children do You have: 3 Feels Safe at Home: Yes Assistive Devices: Nebulizer, Oxygen - Continuous, Walker and Wheelchair Allergies Allergies Allergy/AdvReac Type Severity Reaction Status Date / Time diflunisal AdvReac Intermediate HEART RACES Verified 09/21/23 18:00 Home Meds Home Medications Medication Instructions Recorded Confirmed albuterol sulfate 90 mcg/actuation 2 puff inhalation Q6 PRN Shortness 08/28/20 09/21/23 aerosol inhaler (Ventolin HFA) Of Breath Or Wheezing aspirin 81 mg tablet,delayed 81 mg PO QAM 08/28/20 09/21/23 release (Uri Low Dose Aspirin) metformin 1,000 mg tablet 1,000 mg PO BID 08/28/20 09/21/23 tiotropium 2.5 mcg-olodaterol 2.5 2 puff inhalation QAM 09/02/21 09/21/23 mcg/actuation mist for inhalation (Stiolto Respimat) folic acid 1 mg tablet 1 mg PO QAM 03/24/22 09/21/23 losartan 50 mg tablet 50 mg PO QAM 03/24/22 09/21/23 bupropion HCl 150 mg 24 hr tablet, 150 mg PO DAILY 08/23/23 09/21/23 extended release furosemide 20 mg tablet 20 mg PO DAILY 08/23/23 09/21/23 rosuvastatin 20 mg tablet 20 mg PO DAILY 08/23/23 09/21/23 budesonide-formoterol HFA 160 2 puff inhalation BID 09/21/23 09/21/23 mcg-4.5 mcg/actuation aerosol inhaler Previous Rx's Medication Instructions Recorded blood sugar diagnostic (OneTouch #50 ea 06/02/21 Verio test strips) blood-glucose meter (OneTouch #1 ea 06/02/21 Verio Meter) lancets 33 gauge (OneTouch Delica #100 ea 06/02/21 Lancets) ipratropium 0.5 mg-albuterol 3 mg 3 ml inhalation Q4H PRN shortness 12/13/22 (2.5 mg base)/3 mL nebulization of breath #90 mL soln pantoprazole 40 mg tablet,delayed 40 mg PO QAM #30 tabs 08/26/23 release apixaban 5 mg tablet (Eliquis) 5 mg PO BID #60 tabs 09/10/23 diltiazem HCl 180 mg 180 mg PO QAM #30 caps 09/10/23 capsule,extended release 24 hr glipizide 5 mg tablet 5 mg PO DAILY #30 tabs 09/10/23 metoprolol succinate 50 mg 50 mg PO BID #60 tabs 09/10/23 tablet,extended release 24 hr oxycodone 5 mg tablet 5 mg PO TID PRN Pain #30 tabs 09/10/23 prednisone 10 mg tablet See Rx Instructions .Route 09/10/23 .COMPLEX #40 tabs Results & Data (ED) Vital Signs Vital Signs - 24 hr 09/21/23 15:52 09/21/23 15:52 09/21/23 16:32 Temperature 37.1 C Temperature Source Oral Pulse Rate 86 76 Pulse Rate [Right Finger] Respiratory Rate 22 Respiratory Effort / Characteristics Blood Pressure 115/69 Blood Pressure [Left Arm] Blood Pressure Mean 84 Blood Pressure Mean [Left Arm] Pulse Oximetry 93 Oxygen Delivery Method Nasal Cannula Nasal Cannula Oxygen Flow Rate 4 Sepsis Recent Fever Within 48 Hours No Sepsis New/Unexplained Change in Mental Status No Sepsis Action Taken by Nursing No Action Required 09/21/23 17:27 09/21/23 17:37 09/21/23 19:00 Temperature Temperature Source Pulse Rate Pulse Rate [Right Finger] 75 73 Respiratory Rate 38 H 24 Respiratory Effort / Characteristics Spontaneous Blood Pressure Blood Pressure [Left Arm] 116/74 134/56 L Blood Pressure Mean Blood Pressure Mean [Left Arm] 88 82 Pulse Oximetry 98 98 97 Oxygen Delivery Method Nebulizer Nasal Cannula Nasal Cannula Oxygen Flow Rate 4 4 Sepsis Recent Fever Within 48 Hours Sepsis New/Unexplained Change in Mental Status Sepsis Action Taken by Nursing 09/21/23 19:30 Temperature Temperature Source Pulse Rate Pulse Rate [Right Finger] 73 Respiratory Rate 26 H Respiratory Effort / Characteristics Blood Pressure Blood Pressure [Left Arm] 133/71 Blood Pressure Mean Blood Pressure Mean [Left Arm] 91 Pulse Oximetry 97 Oxygen Delivery Method Nasal Cannula Oxygen Flow Rate 4 Sepsis Recent Fever Within 48 Hours Sepsis New/Unexplained Change in Mental Status Sepsis Action Taken by [facility] Medications Current Medication List: was personally reviewed by me Laboratory Data Attestation: I reviewed the patient's lab results. 09/21/23 16:25 09/21/23 16:25 Lab Results 09/21/23 09/21/23 09/21/23 Range/Units 16:25 16:25 16:25 WBC 13.49 H (4.8-10.8) K/ul RBC 3.85 L (4.20-5.40) M/uL Hgb 10.3 L (12.0-16.0) g/dl Hct 34.4 L (37.0-47.0) % MCV 89.4 (80.0-100.0) fL MCH 26.8 (25.0-34.0) pg MCHC 29.9 L (32.0-36.0) g/dL RDW Std Deviation 56.1 H (36.4-46.3) fL RDW Coeff of Dorcas 17.2 H (11.5-14.5) % Plt Count 357 (130-400) K/uL MPV 10.4 (9.4-12.4) fL Immature Gran % (Auto) 0.4 % Neut % (Auto) 88.3 % Lymph % (Auto) 5.4 % Zavala % (Auto) 4.2 % Eos % (Auto) 1.4 % Baso % (Auto) 0.3 % Neut # (Auto) 11.91 H (1.40-6.50) K/uL Lymph # (Auto) 0.73 L (1.20-3.40) K/uL Zavala # (Auto) 0.56 (0.11-0.59) K/uL Eos # (Auto) 0.19 (0.00-0.50) K/uL Baso # (Auto) 0.04 (0.00-0.20) K/uL Immature Gran # (Auto) 0.06 (0.01-0.20) K/uL PT 11.4 (9.0-12.0) Seconds INR 1.0 (0.9-1.1) APTT 25.4 (21.0-31.0) Seconds PTT Ratio 0.9 VBG pH (7.36-7.41) VBG pCO2 (38-50) mmHg VBG pO2 mmHg VBG HCO3 mmol/L VBG O2 Saturation % VBG Base Excess mEq/L Sodium 138 (136-145) mmol/L Potassium 5.0 (3.5-5.1) mmol/L Chloride 102 (98-107) mmol/L Carbon Dioxide 31 (21-32) mmol/L Anion Gap 5 (3-11) BUN 19 (6-23) mg/dl Creatinine 1.14 (0.6-1.2) mg/dl Est Cr Clr Drug Dosing 42.8 ml/min Est GFR ( Amer) 56.0 ml/min Est GFR (Non-Af Amer) 48.3 ml/min BUN/Creatinine Ratio 16.7 (10-20) Glucose 252 H (70-99(Fasting)) mg/dl Lactate (0.4-2.0) mmol/L Calcium 9.2 (8.6-10.3) mg/dl Magnesium 1.5 L (1.7-2.4) mg/dl Total Bilirubin 0.3 (0.2-1.0) mg/dl AST 10 L (13-39) U/L ALT 33 (7-52) U/L Alkaline Phosphatase 79 (34-104) U/L Total Protein 6.6 (6.0-8.3) gm/dl Albumin 3.4 (3.4-5.0) gm/dl Globulin 3.2 (2.5-4.0) gm/dl Albumin/Globulin Ratio 1.1 (0.9-2) Procalcitonin (0-0.5) ng/ml Adenovirus (PCR) (NotDetected) B. pertussis DNA (PCR) (NotDetected) B.parapertussis DNA PCR (NotDetected) C. pneumoniae DNA (PCR) (NotDetected) Coronavirus OC43 (PCR) (NotDetected) Coronavirus HKU1 (PCR) (NotDetected) Coronavirus 229E (PCR) (NotDetected) SARS-CoV-2 (PCR) (NotDetected) Coronavirus NL63 (PCR) (NotDetected) Human Metapneumovir PCR (NotDetected) Influenza Type A (PCR) (NotDetected) Influenza Type B (PCR) (NotDetected) M. pneumoniae (PCR) (NotDetected) Parainfluenza 1 (PCR) (NotDetected) Parainfluenza 2 (PCR) (NotDetected) Parainfluenza 3 (PCR) (NotDetected) Parainfluenza 4 (PCR) (NotDetected) RSV (PCR) (NotDetected) Entero/Rhino (PCR) (NotDetected) 09/21/23 09/21/23 09/21/23 Range/Units 16:25 16:26 17:25 WBC (4.8-10.8) K/ul RBC (4.20-5.40) M/uL Hgb (12.0-16.0) g/dl Hct (37.0-47.0) % MCV (80.0-100.0) fL MCH (25.0-34.0) pg MCHC (32.0-36.0) g/dL RDW Std Deviation (36.4-46.3) fL RDW Coeff of Dorcas (11.5-14.5) % Plt Count (130-400) K/uL MPV (9.4-12.4) fL Immature Gran % (Auto) % Neut % (Auto) % Lymph % (Auto) % Zavala % (Auto) % Eos % (Auto) % Baso % (Auto) % Neut # (Auto) (1.40-6.50) K/uL Lymph # (Auto) (1.20-3.40) K/uL Zavala # (Auto) (0.11-0.59) K/uL Eos # (Auto) (0.00-0.50) K/uL Baso # (Auto) (0.00-0.20) K/uL Immature Gran # (Auto) (0.01-0.20) K/uL PT (9.0-12.0) Seconds INR (0.9-1.1) APTT (21.0-31.0) Seconds PTT Ratio VBG pH 7.33 L (7.36-7.41) VBG pCO2 61 H (38-50) mmHg VBG pO2 70 mmHg VBG HCO3 32 mmol/L VBG O2 Saturation 92.8 % VBG Base Excess 4.5 mEq/L Sodium (136-145) mmol/L Potassium (3.5-5.1) mmol/L Chloride (98-107) mmol/L Carbon Dioxide (21-32) mmol/L Anion Gap (3-11) BUN (6-23) mg/dl Creatinine (0.6-1.2) mg/dl Est Cr Clr Drug Dosing ml/min Est GFR ( Amer) ml/min Est GFR (Non-Af Amer) ml/min BUN/Creatinine Ratio (10-20) Glucose (70-99(Fasting)) mg/dl Lactate 1.6 (0.4-2.0) mmol/L Calcium (8.6-10.3) mg/dl Magnesium (1.7-2.4) mg/dl Total Bilirubin (0.2-1.0) mg/dl AST (13-39) U/L ALT (7-52) U/L Alkaline Phosphatase (34-104) U/L Total Protein (6.0-8.3) gm/dl Albumin (3.4-5.0) gm/dl Globulin (2.5-4.0) gm/dl Albumin/Globulin Ratio (0.9-2) Procalcitonin < 0.05 (0-0.5) ng/ml Adenovirus (PCR) (NotDetected) B. pertussis DNA (PCR) (NotDetected) B.parapertussis DNA PCR (NotDetected) C. pneumoniae DNA (PCR) (NotDetected) Coronavirus OC43 (PCR) (NotDetected) Coronavirus HKU1 (PCR) (NotDetected) Coronavirus 229E (PCR) (NotDetected) SARS-CoV-2 (PCR) (NotDetected) Coronavirus NL63 (PCR) (NotDetected) Human Metapneumovir PCR (NotDetected) Influenza Type A (PCR) (NotDetected) Influenza Type B (PCR) (NotDetected) M. pneumoniae (PCR) (NotDetected) Parainfluenza 1 (PCR) (NotDetected) Parainfluenza 2 (PCR) (NotDetected) Parainfluenza 3 (PCR) (NotDetected) Parainfluenza 4 (PCR) (NotDetected) RSV (PCR) (NotDetected) Entero/Rhino (PCR) (NotDetected) 09/21/23 Range/Units 17:25 WBC (4.8-10.8) K/ul RBC (4.20-5.40) M/uL Hgb (12.0-16.0) g/dl Hct (37.0-47.0) % MCV (80.0-100.0) fL MCH (25.0-34.0) pg MCHC (32.0-36.0) g/dL RDW Std Deviation (36.4-46.3) fL RDW Coeff of Dorcas (11.5-14.5) % Plt Count (130-400) K/uL MPV (9.4-12.4) fL Immature Gran % (Auto) % Neut % (Auto) % Lymph % (Auto) % Zavala % (Auto) % Eos % (Auto) % Baso % (Auto) % Neut # (Auto) (1.40-6.50) K/uL Lymph # (Auto) (1.20-3.40) K/uL Zavala # (Auto) (0.11-0.59) K/uL Eos # (Auto) (0.00-0.50) K/uL Baso # (Auto) (0.00-0.20) K/uL Immature Gran # (Auto) (0.01-0.20) K/uL PT (9.0-12.0) Seconds INR (0.9-1.1) APTT (21.0-31.0) Seconds PTT Ratio VBG pH (7.36-7.41) VBG pCO2 (38-50) mmHg VBG pO2 mmHg VBG HCO3 mmol/L VBG O2 Saturation % VBG Base Excess mEq/L Sodium (136-145) mmol/L Potassium (3.5-5.1) mmol/L Chloride (98-107) mmol/L Carbon Dioxide (21-32) mmol/L Anion Gap (3-11) BUN (6-23) mg/dl Creatinine (0.6-1.2) mg/dl Est Cr Clr Drug Dosing ml/min Est GFR ( Amer) ml/min Est GFR (Non-Af Amer) ml/min BUN/Creatinine Ratio (10-20) Glucose (70-99(Fasting)) mg/dl Lactate (0.4-2.0) mmol/L Calcium (8.6-10.3) mg/dl Magnesium (1.7-2.4) mg/dl Total Bilirubin (0.2-1.0) mg/dl AST (13-39) U/L ALT (7-52) U/L Alkaline Phosphatase (34-104) U/L Total Protein (6.0-8.3) gm/dl Albumin (3.4-5.0) gm/dl Globulin (2.5-4.0) gm/dl Albumin/Globulin Ratio (0.9-2) Procalcitonin (0-0.5) ng/ml Adenovirus (PCR) Not Detected (NotDetected) B. pertussis DNA (PCR) Not Detected (NotDetected) B.parapertussis DNA PCR Not Detected (NotDetected) C. pneumoniae DNA (PCR) Not Detected (NotDetected) Coronavirus OC43 (PCR) Not Detected (NotDetected) Coronavirus HKU1 (PCR) Not Detected (NotDetected) Coronavirus 229E (PCR) Not Detected (NotDetected) SARS-CoV-2 (PCR) Not Detected (NotDetected) Coronavirus NL63 (PCR) Not Detected (NotDetected) Human Metapneumovir PCR Not Detected (NotDetected) Influenza Type A (PCR) Not Detected (NotDetected) Influenza Type B (PCR) Not Detected (NotDetected) M. pneumoniae (PCR) Not Detected (NotDetected) Parainfluenza 1 (PCR) Not Detected (NotDetected) Parainfluenza 2 (PCR) Not Detected (NotDetected) Parainfluenza 3 (PCR) Not Detected (NotDetected) Parainfluenza 4 (PCR) Not Detected (NotDetected) RSV (PCR) Not Detected (NotDetected) Entero/Rhino (PCR) Not Detected (NotDetected) Administered Medications Discontinued Medications Albuterol (Albut/Ipratrop 3mg/0.5mg Neb 3 Ml Vial) 12 ml INH ONE STA Stop: 09/21/23 16:43 Last Admin: 09/21/23 16:54 Dose: 12 ml Documented By: JERONIMO Doxycycline Hyclate (Doxycycline Hyclate 100 Mg Cap) 100 mg PO NOW STA Stop: 09/21/23 18:17 Last Admin: 09/21/23 18:34 Dose: 100 mg Documented By: JERONIMO Magnesium Sulfate/Dextrose (Magnesium Sulfate / D5w) 1 gm in 100 mls @ 100 mls/hr IV NOW STA Stop: 09/21/23 17:42 Last Infusion: 09/21/23 18:22 Dose: 0 mls/hr Documented By: Admin: 09/21/23 16:54 Dose: 100 mls/hr Documented By: JERONIMO Methylprednisolone (Methylprednisolone 125 Mg/2 Ml Vial) 125 mg IV NOW STA Stop: 09/21/23 16:43 Last Admin: 09/21/23 16:54 Dose: 125 mg Documented By: JERONIMO Imaging Data Radiologist's Impression: Chest X-Ray 09/21/23 16:42 XR chest 1V portable HISTORY: 73 years-old Female Dyspnea acute shortness of breath COMPARISON: 09/05/2023 TECHNIQUE: AP view of the chest FINDINGS: Cardiomediastinal and hilar silhouettes are within normal limits. Emphysema with chronic interstitial coarsening. No pneumothorax, pleural effusion or airspace consolidation. Calcified granuloma of the basal right lower lobe. Bones appear grossly intact. IMPRESSION: Emphysema with progressive interstitial opacities within the right lung base suggestive of probable atelectasis. A mild pneumonitis could appear similarly. ACT 112: Negative or not required by law. The above report was generated using voice recognition software. It may contain grammatical, syntax or spelling errors. Electronically signed by: Israel Sharma M.D. 09/21/2023 4:57 PM Discharge Plan Visit Data Chief Complaint: Shortness of Breath/Dyspnea Stated Complaint: SOB ED Provider: Nicolas Becker Discharge Problem: Acute exacerbation of chronic obstructive pulmonary disease, Hypoxia Forms Stand Alone Forms: My [facility] Prescriptions Prescriptions: No Action aspirin [Uri Low Dose Aspirin] 81 mg Tablet,Delayed Release (Dr/Ec) 81 mg PO QAM albuterol sulfate [Ventolin HFA] 90 mcg/actuation HFA aerosol inhaler 2 puff INHALATION Q6 PRN (Reason: Shortness Of Breath Or Wheezing) metformin 1,000 mg tablet 1,000 mg PO BID (DME) blood-glucose meter [OneTouch Verio Meter] [facility] [place] See Rx Instructions .ROUTE .MEDSUPPLY Qty: 1 0RF Rx Instructions: to test blood sugar 1-2 times/day (DME) OneTouch Verio test strips Strip See Rx Instructions .ROUTE .MEDSUPPLY Qty: 50 3RF Rx Instructions: test blood sugar 1-2 times per day (DME) lancets [OneTouch Delica Lancets] 33 gauge [facility] [place] See Rx Instructions .ROUTE .MEDSUPPLY Qty: 100 3RF Rx Instructions: test sugar 1-2 times per day losartan 50 mg tablet 50 mg PO QAM folic acid 1 mg tablet 1 mg PO QAM furosemide 20 mg tablet 20 mg PO DAILY rosuvastatin 20 mg tablet 20 mg PO DAILY bupropion HCl 150 mg tablet extended release 24 hr 150 mg PO DAILY pantoprazole 40 mg Tablet,Delayed Release (Dr/Ec) 40 mg PO QAM Qty: 30 0RF budesonide-formoterol 160-4.5 mcg/actuation HFA aerosol inhaler 2 puff INHALATION BID Stiolto Respimat 2.5-2.5 mcg/actuation mist 2 puff INHALATION QAM ipratropium-albuterol 0.5 mg-3 mg(2.5 mg base)/3 mL solution for nebulization 3 ml inhalation Q4H PRN (Reason: shortness of breath) Qty: 90 0RF Rx Instructions: until breathing returns to target peak flow/parameters Eliquis 5 mg Tablet 5 mg PO BID Qty: 60 5RF diltiazem HCl 180 mg Capsule,Extended Release 24hr 180 mg PO QAM Qty: 30 5RF glipizide 5 mg tablet 5 mg PO DAILY Qty: 30 0RF Rx Instructions: please take while on prednisone prednisone 10 mg tablet See Rx Instructions .ROUTE .COMPLEX Qty: 40 0RF Rx Instructions: 4 a day x 4 d>3 a day x 4 d>2 a day x 4 d>1 a day metoprolol succinate 50 mg tablet extended release 24 hr 50 mg PO BID Qty: 60 5RF oxycodone 5 mg tablet 5 mg PO TID PRN (Reason: Pain) Qty: 30 0RF Referrals Referrals: Rosi Borges CRNP [Primary Care Provider] -
[2023-09-21] MEDS ORDERED: ALBUT/IPRATROP 3MG/0.5MG NEB 3 ML VIAL INH STA (16:42)
[2023-09-21] MEDS ORDERED: methylPREDNISolone 125 MG/2 ML VIAL IV STA (16:42)
[2023-09-21] MEDS ORDERED: MAGNESIUM SULFATE / D5W 1 GM/100 ML BAG IV STA (16:43)
--- NOTE | 2023-09-21 16:58 | XRay Report ---
XR chest 1V portable HISTORY: 73 years-old Female Dyspnea acute shortness of breath COMPARISON: 09/05/2023 TECHNIQUE: AP view of the chest FINDINGS: Cardiomediastinal and hilar silhouettes are within normal limits. Emphysema with chronic interstitial coarsening. No pneumothorax, pleural effusion or airspace consolidation. Calcified granuloma of the basal right lower lobe. Bones appear grossly intact. IMPRESSION: Emphysema with progressive interstitial opacities within the right lung base suggestive o f probable atelectasis. A mild pneumonitis could appear similarly. ACT 112: Negative or not required by law. The above report was generated using voice recognition software. It may contain grammatical, syntax o r spelling errors. Electronically signed by: Israel Sharma M.D. 09/21/2023 4:57 PM
[2023-09-21 17:03] LABS: Basophils # (auto) 0.04 K/uL (0.00-0.20); Basophils % (auto) 0.3 %; Eosinophils # (auto) 0.19 K/uL (0.00-0.50); Eosinophils % (auto) 1.4 %; Hematocrit (blood only) 34.4 % (37.0-47.0); Hemoglobin 10.3 g/dl (12.0-16.0); Immature Granulocytes # (auto) 0.06 K/uL (0.01-0.20); Immature Granulocytes % (auto) 0.4 %; Lymphocytes # (auto) 0.73 K/uL (1.20-3.40); Lymphocytes % (auto) 5.4 %; Mean Corpuscular Hemoglobin 26.8 pg (25.0-34.0); Mean Corpuscular Hgb Conc 29.9 g/dL (32.0-36.0); Mean Corpuscular Volume 89.4 fL (80.0-100.0); Mean Platelet Volume 10.4 fL (9.4-12.4); Monocytes # (auto) 0.56 K/uL (0.11-0.59); Monocytes % (auto) 4.2 %; Neutrophils # (auto) 11.91 K/uL (1.40-6.50); Neutrophils % (auto) 88.3 %; Platelet Count 357 K/uL (130-400); RDW Coefficient of Variation 17.2 % (11.5-14.5); RDW Standard Deviation 56.1 fL (36.4-46.3); Red Blood Count 3.85 M/uL (4.20-5.40); White Blood Count 13.49 K/ul (4.8-10.8)
[2023-09-21 17:18] LABS: Albumin Globulin Ratio 1.1 (0.9-2); Albumin Level 3.4 gm/dl (3.4-5.0); BUN Creatinine Ratio 16.7 (10-20); Bilirubin,Total 0.3 mg/dl (0.2-1.0); Calcium 9.2 mg/dl (8.6-10.3); Creatinine Clr Calc Pharmacy 42.8 ml/min; Est GFR (Non-African American) 48.3 ml/min; Globulin 3.2 gm/dl (2.5-4.0); Magnesium 1.5 mg/dl (1.7-2.4); Total Protein 6.6 gm/dl (6.0-8.3)
[2023-09-21 17:31] LABS: Base Excess VBG 4.5 mEq/L; HCO3 VBG 32 mmol/L; Oxygen Saturation VBG 92.8 %; PCO2 VBG 61 mmHg (38-50); PO2 VBG 70 mmHg; pH VBG 7.33 (7.36-7.41)
[2023-09-21 17:38] LABS: Partial Thromboplastin Ratio 0.9; Partial Thromboplastin Time 25.4 Seconds (21.0-31.0); Prothrombin Time 11.4 Seconds (9.0-12.0)
[2023-09-21] MEDS ORDERED: DOXYCYCLINE HYCLATE 100 MG CAP PO STA (18:16)
[2023-09-21 18:26] LABS: Adenovirus PCR Not Detected (NotDetected); Bordetella parapertussis PCR Not Detected (NotDetected); Bordetella pertussis PCR Not Detected (NotDetected); Chlamydia pneumoniae PCR Not Detected (NotDetected); Coronavirus 229E PCR Not Detected (NotDetected); Coronavirus CoV-2 (COVID19)PCR Not Detected (NotDetected); Coronavirus HKU1 PCR Not Detected (NotDetected); Coronavirus NL63 PCR Not Detected (NotDetected); Coronavirus OC43PCR Not Detected (NotDetected); Human Metapneumovirus PCR Not Detected (NotDetected); Influenza A PCR Not Detected (NotDetected); Influenza B PCR Not Detected (NotDetected); Mycoplasma pneumoniae PCR Not Detected (NotDetected); Parainfluenza Virus 1 PCR Not Detected (NotDetected); Parainfluenza Virus 2 PCR Not Detected (NotDetected); Parainfluenza Virus 3 PCR Not Detected (NotDetected); Parainfluenza Virus 4 PCR Not Detected (NotDetected); Respiratory Syncytial VirusPCR Not Detected (NotDetected); Rhinovirus/Enterovirus PCR Not Detected (NotDetected)
--- NOTE | 2023-09-21 18:55 | History & Physical Report ---
Date of Service September 21, 2023 Assessment & Plan (1) COPD, very severe: Plan: Dyspnea 2/2 Acute on chronic COPD, severe COPD with chronic respiratory failure on home oxygen Patient is pending enrollment in hospice, continues to have hospice oriented care goals but has not yet enrolled in their services. Would like admission for treatment of acute COPD, see HPI for care planning discussion Is with acutely increased shortness of breath of 1 day, diffuse wheezing. No fever/chills/sweats. No evidence of pneumonia on chest x-ray. Pro-Wilder negative, bio fire negative Patient was completing a prednisone taper, was given 125 mg Solu-Medrol in the ER and will continue as 40 mg 3 times daily weaning as clinically improved Incentive spirometry, flutter valve Albuterol every 4 hours as needed with respiratory Received 1 g of mag, levels are 1.5 we will follow-up with an additional gram on admission and oral repletion VBG with mild respiratory acidosis Patient poorly tolerant of BiPAP/CPAP, may trial nasal pillow overnight otherwise continue nocturnal oxygen Case management consulted to help facilitate hospice services at home as ultimately patient reports of her COPD were to have flares that were not able to be sufficiently treated to return to a good level of function she would prefer to be comfortable at home rather than continually in the hospital Chest x-ray without overt pneumonia? Pneumonitis. Doxy for COPD exacerbation Baseline weight is approximately 66-69 kg, patient is 71.2 with edema on admission. No overt pulmonary edema on chest x-ray, due to weight gain and swelling with some shortness of breath will increase Lasix to twice daily and BNP pending (2) Advanced care planning/counseling discussion: Plan: As noted (3) COPD exacerbation: (4) Hyperlipidemia: Plan: Rosuvastatin (5) Afib: Plan: History of paroxysmal A-fib Continue Eliquis Continue metoprolol Sinus on admission, rate 73 (6) Hypertension: Plan: Diltiazem, losartan continued. Adequately controlled on History of Present Illness Primary Care Provider: BRET Espinoza is a 73-year-old female with past medical history of severe end-stage COPD, A-fib with RVR, type II DM, CKD, and grade 1 diastolic dysfunction with preserved EF who presents with acute worsening of her breathing, shortness of breath, and wheezing for 1 day. She was recently admitted for a COPD exacerbation and was being treated with a steroid taper at home. Goals of care were discussed and patient had extensive palliative consultation at prior hospitalization, Daniella is aware that she has severe COPD which is not reversible. She had previously discussed and remains interested in hospice goals of care to be kept comfortable if her COPD could not be reversed at home, and would prefer to be kept comfortable at home rather than be in the hospital if she were unlikely to get significant benefit from inpatient treatment for an exacerbation. She reports while she is still interested and would like hospice, this has not yet been set up for her at home, she does not have any hospice services, and her breathing has gotten worse before she could enroll in these. She would like treatment for a recurrent acute COPD exacerbation as an inpatient at this time. She endorses increased sputum production but is not sure what color as she swallows it, increased wheezing for 1 day which has not improved with her albuterol inhalers at home, increase shortness of breath despite 4 L of oxygen.. She is on home oxygen. She has not had any fevers, chills, or sweats. Denies chest pain or chest pressure. She feels weak and tired. She has not had any urinary symptoms. She reports she chronically has some sensitivity in her skin and her abdomen remains slightly uncomfortable but she has a good appetite. No diarrhea/constipation. No rebound/guarding at bedside. Confirms DNR/DNI Medical History: Reviewed Medications: Reviewed Surgical History: Reviewed Family history: Reviewed Allergies: Reviewed Social History: REviewed Code Status: DNR/DNI Allergies Allergy/AdvReac Type Severity Reaction Status Date / Time diflunisal AdvReac Intermediate HEART RACES Verified 09/21/23 18:00 Home Medications Medication Instructions Recorded Confirmed Type albuterol sulfate 90 mcg/actuation 2 puff inhalation Q6 PRN Shortness 08/28/20 09/21/23 History aerosol inhaler (Ventolin HFA) Of Breath Or Wheezing aspirin 81 mg tablet,delayed 81 mg PO QAM 08/28/20 09/21/23 History release (Uri Low Dose Aspirin) metformin 1,000 mg tablet 1,000 mg PO BID 08/28/20 09/21/23 History blood sugar diagnostic (youbeQ - Maps [employer] Lifeuch #50 ea 06/02/21 09/21/23 Rx Verio test strips) blood-glucose meter (BigEvidenceTouch #1 ea 06/02/21 09/21/23 Rx Verio Meter) lancets 33 gauge (Jorge Luis Tapia #100 ea 06/02/21 09/21/23 Rx Lancets) tiotropium 2.5 mcg-olodaterol 2.5 2 puff inhalation QAM 09/02/21 09/21/23 History mcg/actuation mist for inhalation (Stiolto Respimat) folic acid 1 mg tablet 1 mg PO QAM 03/24/22 09/21/23 History losartan 50 mg tablet 50 mg PO QAM 03/24/22 09/21/23 History ipratropium 0.5 mg-albuterol 3 mg 3 ml inhalation Q4H PRN shortness 12/13/22 09/21/23 Rx (2.5 mg base)/3 mL nebulization of breath #90 mL soln bupropion HCl 150 mg 24 hr tablet, 150 mg PO DAILY 08/23/23 09/21/23 History extended release furosemide 20 mg tablet 20 mg PO DAILY 08/23/23 09/21/23 History rosuvastatin 20 mg tablet 20 mg PO DAILY 08/23/23 09/21/23 History pantoprazole 40 mg tablet,delayed 40 mg PO QAM #30 tabs 08/26/23 09/21/23 Rx release apixaban 5 mg tablet (Eliquis) 5 mg PO BID #60 tabs 09/10/23 09/21/23 Rx diltiazem HCl 180 mg 180 mg PO QAM #30 caps 09/10/23 09/21/23 Rx capsule,extended release 24 hr glipizide 5 mg tablet 5 mg PO DAILY #30 tabs 09/10/23 09/21/23 Rx metoprolol succinate 50 mg 50 mg PO BID #60 tabs 09/10/23 09/21/23 Rx tablet,extended release 24 hr oxycodone 5 mg tablet 5 mg PO TID PRN Pain #30 tabs 09/10/23 09/21/23 Rx prednisone 10 mg tablet See Rx Instructions .Route 09/10/23 09/21/23 Rx .COMPLEX #40 tabs budesonide-formoterol HFA 160 2 puff inhalation BID 09/21/23 09/21/23 History mcg-4.5 mcg/actuation aerosol inhaler Past Med/Surg History Medical History AAA (abdominal aortic aneurysm) Abdominal pain Acute exacerbation of chronic low back pain Acute hypercapnic respiratory failure Acute hypotension Acute kidney injury Acute on chronic respiratory failure with hypoxia Acute on chronic respiratory failure with hypoxia and hypercapnia Acute UTI TATY (acute kidney injury) AMS (altered mental status) Candidiasis of mouth and esophagus Chronic kidney disease, stage 3a Chronic low back pain Chronic pain syndrome COPD (chronic obstructive pulmonary disease) COPD exacerbation Diabetes mellitus Diabetes type 2, uncontrolled Diaphragmatic hernia (10/31/11) DVT prophylaxis History of knee replacement Hyperkalemia Hyperlipidemia Hypertension Left peroneal nerve palsy Respiratory failure Severe muscle deconditioning Syncope Tobacco abuse Surgical History H/O Achilles tendon repair (~2007) H/O: hysterectomy History of appendectomy History of bilateral oophorectomies History of lithotripsy (~2007) Hx of cholecystectomy Family History Other Family history non-contributory Social History Smoking Status: Current every day smoker Tobacco Type: Cigarettes Cigarettes Per Day: 10; Second Hand Exposure: Yes; Do You Dip or Chew Tobacco: No; Hx Alcohol Use: No Hx Substance Use: No Preferred Language: Divehi Communication Ability: Effective Wagon Driver Required: No Beliefs That Will Affect Care: None marital status: Current Living Situation: Alone How many Children do You have: 3 Feels Safe at Home: Yes Assistive Devices: Nebulizer, Oxygen - Continuous, Walker and Wheelchair Review of Systems Review of Systems: All systems reviewed & are unremarkable except as noted in HPI & below Physical Exam Physical Exam: General: A&Ox3. NAD. Cooperative. HEENT: Atraumatic, normocephalic. Pulm: Coarse diffusely, diffuse inspiratory and expiratory wheezes. symmetrical chest rise. No increased work of breathing. No respiratory distress. Cardiac: RRR, -mrg. Radial pulses intact and symmetrical. Abdominal: Slightly diffusely skin tender to soft palpation, no tenderness to deep palpation no rebound. nondistended, soft. BS present. Extremities: Warm, dry. Lower extremities with 2+ pitting edema bilaterally Results & Data Results & Data Vital Signs (Past 12 Hours) Vital Signs Temp Pulse Pulse Resp BP BP Pulse Ox 09/21/23 17:37 98 09/21/23 17:27 75 38 H 116/74 98 09/21/23 16:32 76 09/21/23 15:52 09/21/23 15:52 37.1 C 86 22 115/69 93 O2 Del Method O2 Flow Rate 09/21/23 17:37 Nasal Cannula 4 09/21/23 17:27 Nebulizer 09/21/23 16:32 09/21/23 15:52 Nasal Cannula 09/21/23 15:52 Nasal Cannula 4 PG Care Time/CCT Total # of Minutes Spent Total Time Spent with Patient: Total time spent is greater than 50% in coordination of care (as documented) at patient's floor/unit and/or counseling patient: Coding Level of Care Code 79055 INT INP/OBS CARE 3/75MIN Diagnoses COPD, very severe J44.9 Advanced care planning/counseling discussion Z71.89 COPD exacerbation J44.1 Hyperlipidemia E78.5 Afib I48.91 Hypertension I10 Hypertension type: unspecified (6) Hypertension Hypertension type: unspecified Qualified Code(s): I10 - Essential (primary) hypertension
[2023-09-21] MEDS ORDERED: DEXTROSE 50% 50 ML SYRINGE IV PRN (19:22)
[2023-09-21] MEDS ORDERED: CARBOHYDRATES FOR HYPOGLYCEMIA PO PRN (19:22)
[2023-09-21] MEDS ORDERED: GLUCAGON FOR INJ 1 MG VIAL SQ PRN (19:22)
[2023-09-21] MEDS ORDERED: GLUCOSE 40% GEL 15 GM TUBE PO PRN (19:22)
[2023-09-21] MEDS ORDERED: GLUCOSE 10 TAB/TUBE PO PRN (19:22)
[2023-09-21] MEDS: INSULIN ASPART PER UNIT CHARGE SC SCH (21:16)
[2023-09-21] MEDS ORDERED: ACETAMINOPHEN 325 MG TAB PO PRN (21:45)
[2023-09-21] MEDS ORDERED: ALBUT/IPRATROP 3MG/0.5MG NEB 3 ML VIAL INH PRN (21:45)
[2023-09-21] MEDS ORDERED: ALBUTEROL HFA 8 GM INHALER INH PRN (21:45)
[2023-09-21] MEDS: METOPROLOL SUCC 50MG EXT REL TAB PO SCH (22:32)
[2023-09-21] MEDS: oxyCODONE HCL IR 5 MG TAB (IMMEDIATE RELEASE) PO PRN (22:32)
[2023-09-21] MEDS: APIXABAN 5 MG TABLET PO SCH (22:32)
[2023-09-22] MEDS: oxyCODONE HCL IR 5 MG TAB (IMMEDIATE RELEASE) PO PRN ×3 (06:10→20:20)
[2023-09-22] MEDS ORDERED: INSULIN ASPART PER UNIT CHARGE SC STA ×2 (07:44→08:41)
[2023-09-22 08:00] LABS: Hematocrit (blood only) 30.5 % (37.0-47.0); Hemoglobin 9.3 g/dl (12.0-16.0); Mean Corpuscular Hemoglobin 27.1 pg (25.0-34.0); Mean Corpuscular Hgb Conc 30.5 g/dL (32.0-36.0); Mean Corpuscular Volume 88.9 fL (80.0-100.0); Mean Platelet Volume 10.9 fL (9.4-12.4); Platelet Count 328 K/uL (130-400); RDW Coefficient of Variation 16.9 % (11.5-14.5); RDW Standard Deviation 55.6 fL (36.4-46.3); Red Blood Count 3.43 M/uL (4.20-5.40); White Blood Count 10.46 K/ul (4.8-10.8)
[2023-09-22 08:32] LABS: BUN Creatinine Ratio 18.9 (10-20); Calcium 9.1 mg/dl (8.6-10.3); Est GFR (African American) 42.6 ml/min; Est GFR (Non-African American) 36.8 ml/min; Potassium 5.1 mmol/L (3.5-5.1)
[2023-09-22 08:34] LABS: Basophils # (auto) 0.01 K/uL (0.00-0.20); Basophils % (auto) 0.1 %; Immature Granulocytes # (auto) 0.07 K/uL (0.01-0.20); Immature Granulocytes % (auto) 0.7 %; Lymphocytes # (auto) 0.53 K/uL (1.20-3.40); Lymphocytes % (auto) 5.1 %; Monocytes # (auto) 0.07 K/uL (0.11-0.59); Monocytes % (auto) 0.7 %; Neutrophils # (auto) 9.78 K/uL (1.40-6.50); Neutrophils % (auto) 93.4 %
[2023-09-22] MEDS ORDERED: PHARMACY GLYCEMIC MGMT CONSULT PRN (09:02)
[2023-09-22] MEDS ORDERED: INSULIN HUMAN REGULAR PER UNIT 7 UNITS in SYRINGE 6.93 ML IV STA (09:06)
[2023-09-22] MEDS ORDERED: LANTUS PER UNIT CHARGE SC SCH (09:15)
[2023-09-22] MEDS: methylPREDNISolone 40 MG in SYRINGE 0 ML IV SCH ×2 (09:27→17:18)
[2023-09-22] MEDS: APIXABAN 5 MG TABLET PO SCH ×2 (09:27→20:17)
[2023-09-22] MEDS: buPROPion XL 150 MG TABCR PO SCH (09:28)
[2023-09-22] MEDS: FOLIC ACID 1 MG TAB PO SCH (09:28)
[2023-09-22] MEDS: DOXYCYCLINE HYCLATE 100 MG CAP PO SCH ×2 (09:28→20:17)
[2023-09-22] MEDS: ASPIRIN 81 MG ECTAB PO SCH (09:28)
[2023-09-22] MEDS: dilTIAZem HCL 180 MG CAPCR PO SCH (09:28)
[2023-09-22] MEDS: FLUTICASONE/VILANTEROL 200/25MCG 14 PUFFS/INHALER INH SCH (09:28)
[2023-09-22] MEDS: LOSARTAN POTASSIUM 50 MG TAB PO SCH (09:29)
[2023-09-22] MEDS: PANTOprazole 40 MG TAB PO SCH (09:29)
[2023-09-22] MEDS: FUROSEMIDE 20 MG TAB PO SCH ×2 (09:29→17:21)
[2023-09-22] MEDS: METOPROLOL SUCC 50MG EXT REL TAB PO SCH ×2 (09:29→20:17)
[2023-09-22] MEDS: UMECLIDINIUM/VILANTEROL 62.5/25MCG 7 PUFFS/INHALER INH SCH (09:29)
[2023-09-22] MEDS: ROSUVASTATIN CALCIUM 20 MG TAB PO SCH (09:29)
[2023-09-22] MEDS: INSULIN ASPART PER UNIT CHARGE SC SCH ×4 (10:05→21:19)
--- NOTE | 2023-09-22 10:56 | Pharmacy Report ---
Pharmacy Glycemic Short Note 2 - Date of Service September 22, 2023 - Glycemic Short BSG Results (Last 24 hours): 09/21/23 09/21/23 09/22/23 16:25 21:11 06:47 Glucose 252 H 361 H* POC Glucose 334 H* 09/22/23 09/22/23 09/22/23 07:28 07:30 08:34 Glucose POC Glucose 377 H* 370 H* 454 H* 09/22/23 09/22/23 08:36 10:42 Glucose POC Glucose 417 H* 288 H OUTPATIENT ANTIDIABETIC REGIMEN: * metformin 1000mg BID * glipizide 5mg daily * HbA1C 10% 09/06/23 ASSESSMENT: * Daniella is a 73 YOF admitted with a COPD exacerbation with a history of T2DM. Pharmacy has been consulted for glycemic management while inpatient. * BSGs were elevated upon admission and were significantly elevated this AM, 10 units of Novolog administered with breakfast. Recheck 1 hour later BSG increased, pharmacy consulted and Lantus 0.4 units/kg given as well as an IV regular insulin bolus (0.1 units/kg) * Glycemic stressors include Solumedrol 40mg IV Q8H and doxycycline PO. She has been admitted recently and her BSGs have previously been very reactive to steroids. Will initiate Novolog parameters at a previously effective parameters while also minimizing the risk of overcorrecting. * Planned scale for Lantus tonight to give between a weight based stress of 2-3 based on BSGs PLAN FOR INPATIENT GLYCEMIC CONTROL: * Hold outpatient oral diabetes medications * Basal insulin * Lantus 25 units SQ * Lantus 10-15-20 units HS (see eMAR for details) * Bolus insulin * NovoLog per scale ACHS or Q6hrs while NPO * Goal Range: Low 110 mg/dL - High 140 mg/dL * Correction Factor: 15 mg/dL/unit * Nutritional / Prandial insulin per carb ratio of 1 unit per 3 grams CHO consumed
[2023-09-22] MEDS: ALBUT/IPRATROP 3MG/0.5MG NEB 3 ML VIAL NEB PRN ×4 (11:25→19:35)
--- NOTE | 2023-09-22 12:48 | Hospitalist Progress Note ---
Date of Service September 22, 2023 Assessment & Plan (1) COPD, very severe: Plan: Dyspnea 2/2 Acute on chronic COPD, severe COPD with chronic respiratory failure on home oxygen Patient is pending enrollment in hospice, continues to have hospice oriented care goals but has not yet enrolled in their services. Would like admission for treatment of acute COPD, see HPI for care planning discussion Started on duonebs and steroids Incentive spirometry, flutter valve Albuterol every 4 hours as needed with respiratory -SOB and wheeze much better according to patient Patient poorly tolerant of BiPAP/CPAP, may trial nasal pillow overnight otherwise continue nocturnal oxygen Case management consulted to help facilitate hospice services at home as ultimately patient reports of her COPD were to have flares that were not able to be sufficiently treated to return to a good level of function she would prefer to be comfortable at home rather than continually in the hospital Chest x-ray without overt pneumonia? Pneumonitis. Doxy for COPD exacerbation Baseline weight is approximately 66-69 kg, patient is 71.2 with edema on admission. - No overt pulmonary edema on chest x-ray, due to weight gain and swelling with some shortness of breath will increase Lasix to twice daily (2) Advanced care planning/counseling discussion: Plan: As noted (3) Hyperlipidemia: Plan: Rosuvastatin (4) Afib: Plan: History of paroxysmal A-fib Continue Eliquis Continue metoprolol Sinus on admission, rate 73 (5) Hypertension: Plan: Diltiazem, losartan continued. Adequately controlled on (6) Hyperglycemia: Plan: High blood glucose due to steroids Insulin sliding scale Consult pharmacy for glycemic control (7) COPD exacerbation: Plan Patient wants early discharge from the hospital. Hopefully in the next 48hrs Admission and Anticipated Discharge Date Admission Date: September 21, 2023 Subjective patient seen and examined, says sob and wheeze much better Review of Systems Review of Systems: All systems reviewed are negative, apart from the ones contained in the history. Physical Exam Physical Exam: The patient is awake, alert and oriented 3, well developed and well nourished, normocephalic and atraumatic, lying in bed and in no acute distress. HEENT--PERRL, EOMI, mucous membranes and oropharynx mildly dry Neck--supple. No JVD. No bruits. Thyroid normal, trachea midline, no adenopathy. Heart--normal S1 and S2. No murmurs, rubs or gallops. Lungs--reduced air entry on auscultation, bibasilar wheeze Abdomen--normal bowel sounds and soft. Mild epigastric and left sided abdominal pain Extremities--right lower extremity edema Dermatologic--normal skin turgor, normal color, no abnormal lymph nodes, no rash. Neurologic--cranial nerves II through XII grossly intact. Rheumatologic--normal range of motion. Psychiatric--normal affect. Results & Data Results & Data Vital Signs (Past 12 Hours) Vital Signs Temp Pulse Resp BP Pulse Ox O2 Del Method O2 Flow Rate 09/22/23 11:25 70 18 97 Nasal Cannula 4 09/22/23 07:30 Nasal Cannula 4 09/22/23 06:55 98.1 F 68 18 118/62 96 Nasal Cannula 4 PG Care Time/CCT Total # of Minutes Spent Total Time Spent with Patient: Total time spent is greater than 50% in coordination of care (as documented) at patient's floor/unit and/or counseling patient: Coding Level of Care Code 41439 SUB INP/OBS CARE 2/35MIN Diagnoses COPD, very severe J44.9 Advanced care planning/counseling discussion Z71.89 Hyperlipidemia E78.5 Afib I48.91 Hypertension I10 Hypertension type: unspecified Hyperglycemia R73.9 COPD exacerbation J44.1 Time Spent (min) 35 (5) Hypertension Hypertension type: unspecified Qualified Code(s): I10 - Essential (primary) hypertension
--- NOTE | 2023-09-22 13:15 | Electrocardiogram Report ---
Test Reason : Blood Pressure : / mmHG Vent. Rate : 147 BPM Atrial Rate : 147 BPM P-R Int : 152 ms QRS Dur : 088 ms QT Int : 224 ms P-R-T Axes : 061 001 075 degrees QTc Int : 350 ms Sinus tachycardia with frequent Premature ventricular complexes in a pattern of bigeminy possible Inferior infarct , age undetermined Abnormal ECG When compared with ECG of 05-SEP-2023 16:26, Premature ventricular complexes are now Present Vent. rate has increased BY 81 BPM T wave amplitude has decreased in Inferior leads Nonspecific T wave abnormality now evident in Lateral leads Confirmed by Lion Diego ([id number] on 09/22/2023 1:15:03 PM Referred By: REFERRED SELF Confirmed By:Yvan Diego
--- NOTE | 2023-09-22 13:16 | Electrocardiogram Report ---
Test Reason : Blood Pressure : / mmHG Vent. Rate : 158 BPM Atrial Rate : 158 BPM P-R Int : 142 ms QRS Dur : 080 ms QT Int : 342 ms P-R-T Axes : 061 001 085 degrees QTc Int : 554 ms Sinus tachycardia with frequent , and consecutive Premature ventricular complexes possible Inferior infarct , age undetermined Abnormal ECG When compared with ECG of 05-SEP-2023 16:26, Premature ventricular complexes are now Present Vent. rate has increased BY 92 BPM Inferior infarct is now Present Confirmed by Lion Diego ([id number]) on 09/22/2023 1:16:44 PM Referred By: REFERRED SELF Confirmed By:Yvan Diego
[2023-09-22] MEDS: LANTUS PER UNIT CHARGE SC SCH (21:19)
[2023-09-23] MEDS: INSULIN ASPART PER UNIT CHARGE SC SCH ×6 (00:20→21:04)
[2023-09-23] MEDS: methylPREDNISolone 40 MG in SYRINGE 0 ML IV SCH ×3 (00:20→20:25)
[2023-09-23] MEDS: oxyCODONE HCL IR 5 MG TAB (IMMEDIATE RELEASE) PO PRN ×4 (04:21→21:00)
[2023-09-23] MEDS: ALBUT/IPRATROP 3MG/0.5MG NEB 3 ML VIAL NEB PRN ×6 (06:58→21:27)
[2023-09-23 08:26] LABS: Hemoglobin 9.1 g/dl (12.0-16.0); Mean Corpuscular Hemoglobin 26.8 pg (25.0-34.0); Mean Corpuscular Hgb Conc 30.3 g/dL (32.0-36.0); Mean Corpuscular Volume 88.2 fL (80.0-100.0); Mean Platelet Volume 10.5 fL (9.4-12.4); Platelet Count 364 K/uL (130-400); RDW Coefficient of Variation 16.8 % (11.5-14.5); RDW Standard Deviation 54.8 fL (36.4-46.3)
[2023-09-23] MEDS: DOXYCYCLINE HYCLATE 100 MG CAP PO SCH ×2 (08:28→20:25)
[2023-09-23] MEDS: FLUTICASONE/VILANTEROL 200/25MCG 14 PUFFS/INHALER INH SCH (08:28)
[2023-09-23] MEDS: buPROPion XL 150 MG TABCR PO SCH (08:28)
[2023-09-23] MEDS: ASPIRIN 81 MG ECTAB PO SCH (08:28)
[2023-09-23] MEDS: APIXABAN 5 MG TABLET PO SCH ×2 (08:28→20:25)
[2023-09-23] MEDS: dilTIAZem HCL 180 MG CAPCR PO SCH (08:28)
[2023-09-23] MEDS: METOPROLOL SUCC 50MG EXT REL TAB PO SCH ×2 (08:29→20:25)
[2023-09-23] MEDS: FUROSEMIDE 20 MG TAB PO SCH ×2 (08:29→17:39)
[2023-09-23] MEDS: ROSUVASTATIN CALCIUM 20 MG TAB PO SCH (08:29)
[2023-09-23] MEDS: LOSARTAN POTASSIUM 50 MG TAB PO SCH (08:29)
[2023-09-23] MEDS: FOLIC ACID 1 MG TAB PO SCH (08:29)
[2023-09-23] MEDS: PANTOprazole 40 MG TAB PO SCH (08:29)
[2023-09-23] MEDS: UMECLIDINIUM/VILANTEROL 62.5/25MCG 7 PUFFS/INHALER INH SCH (08:29)
[2023-09-23 08:50] LABS: Basophils # (auto) 0.02 K/uL (0.00-0.20); Basophils % (auto) 0.1 %; Immature Granulocytes # (auto) 0.13 K/uL (0.01-0.20); Immature Granulocytes % (auto) 0.9 %; Lymphocytes # (auto) 0.56 K/uL (1.20-3.40); Lymphocytes % (auto) 3.7 %; Monocytes # (auto) 0.34 K/uL (0.11-0.59); Monocytes % (auto) 2.2 %; Neutrophils # (auto) 14.15 K/uL (1.40-6.50); Neutrophils % (auto) 93.1 %; Poikilocytosis Present
[2023-09-23 08:54] LABS: BUN Creatinine Ratio 23.1 (10-20); Creatinine Clr Calc Pharmacy 29.5 ml/min; Est GFR (African American) 37.2 ml/min; Est GFR (Non-African American) 32.1 ml/min; Potassium 4.5 mmol/L (3.5-5.1)
[2023-09-23] MEDS ORDERED: LANTUS PER UNIT CHARGE SC SCH (09:00)
--- NOTE | 2023-09-23 13:58 | Palliative Care Consultation ---
Date of Consultation September 23, 2023 Assessment & Plan (1) Dyspnea and respiratory abnormalities: (2) Palliative care by specialist: Met with pt/no family present. Provided overview of Palliative Medicine, a subspecialty that provides specialized medical care for people living with a serious illness by offering a focus on quality of life. Palliative Medicine is often conflated with hospice: I advised patient/family that Palliative and hospice can be partners but we are not the same. It is important to understand the difference so that we may be informed, and not afraid. Palliative Medicine works to improve QOL through reduction of symptom burden/more control over their illness, for both the patient and family. Palliative medicine clinicians are board certified, specially-trained and another member of the patient's medical care team. We often provide an extra layer of support because our care is based on the needs of the patient, not the prognosis; as such, it's appropriate at any age/advancing stage of a serious illness and can be provided along with curative treatment. Palliative Medicine clinicians are also trained in advanced communication methodologies, to facilitate complex discussions about advanced illness planning, which are needed to help assure that the treatment choices match the patient's goals, aka delivering Goal Concordant care. Finally, we discussed that hospice is a visiting nurse service that focuses on care delivered at the very end of life for patients with terminal illness, with life expectancy less than 6 month. (3) Advanced care planning/counseling discussion: face to face with pt + Dr Zavala for 25min She wants to go home She wants hospice She does not want to spend her time coming back forth to hospital but gets scared with dyspnea crisis Worries about and new cancer, feels overall time is limited for both of them Wants to make the most of time she has with We discussed the goals of hospice as a patient service and the goals of care; we discussed EOL trajectories and transitions estrella the emotional impact of realizing mortality as a concrete reality from prior abstract considerations. Pt was reassured that no matter where they are along this trajectory, they are not alone - their medical team will remain by their side through their journey. Discussed the pros/cons of accepting help when especially weakened and distressed by pain-which would also help provide relief/decrease caregiver burden/strain. (4) Encounter for hospice care discussion: I provided education about the hospice benefit: an interdisciplinary program offered by nurses, nurses aides, social workers, chaplains and a medical lab assistant for patients with a terminal condition and a life expectancy of less than 6 months. This is covered by Medicare at 100%/no out of pocket expense to patient and all meds/supplies needed by patient for the reason they are on hospice are paid for/covered by hospice. The goal is assure quality of life of the patient in their home setting (home, senior living, inpatient hospice setting) by providing symptoms management, psychosocial and spiritual support. However, they cannot offer 24 hours care and if the family is unable to provide that care, they will have to consider personal care with out of pocket cost vs. senior living placement. We discussed the goals of hospice as a patient service and the goals of care; we discussed EOL trajectories and transitions estrella the emotional impact of realizing mortality as a concrete reality from prior abstract considerations. Pt was reassured that no matter where they are along this trajectory, they are not alone - their medical team will remain by their side through their journey. Discussed the pros/cons of accepting help when especially weakened and distressed by pain-which would also help provide relief/decrease caregiver burden/strain. Plan * DC in AM with home hospice, they need to be told she needs closer following estrella at the beginning until her symptoms are better controlled her dyspnea - anxiety cycle easily escalates to panic * CM, nursing, primary team aware * She was initially demanding to leave today which would have been an AMA dc. She is not sure how she will get home other than to say will have someone drive here to get here but she also states she does not know the phone number to call her ?? After reviewing AMA process/forms, she elected to remain for dc tomorrow with transport home coordinated by CM which was easier and less anxiety inducing for her since she does not need to rely on for transport. Thank you for allowing us to participate in the ongoing care of this patient. Please don't hesitate to call or page with any additional concerns. Dr. Karo Rivera DNP Director, Palliative Care History of Present Illness Reason for Consultation: end statge COPD, hospice Attending Physician: Elsi Zavala MD History of Present Illness Daniella is well known to me from prior admission with c/o "She endorses increased sputum production but is not sure what color as she swallows it, increased wheezing for 1 day which has not improved with her albuterol inhalers at home, increase shortness of breath despite 4 L of oxygen." She is poorly tolerant of BiPAP/CPAP, may trial nasal pillow overnight otherwise continue nocturnal oxygen. She re-presented following 09/05 to 09/10/23 admission for [facility] Admissions to date: 08/23 - 08/27/2312/11 - 12/13/22 Daniella knows she has terminal/very severe COPD. We had a very lengthy discussion during her last admission and she wanted hospice when she went home but for unclear reasons this was never arranged for her and she states she thought she was supposed to wait for them to contact her. She remains interested in hospice at home, reiterates goal to stay home, be managed and focus on family. Currently she is demanding to go home. She states she does not like being in hospital, feels better and wants to be with . States he will come get her with a friend who drives him. States she still wants hospice. Allergies Allergy/AdvReac Type Severity Reaction Status Date / Time diflunisal AdvReac Intermediate HEART RACES Verified 09/21/23 18:00 Home Medications Medication Instructions Recorded Confirmed Type albuterol sulfate 90 mcg/actuation 2 puff inhalation Q6 PRN Shortness 08/28/20 09/21/23 History aerosol inhaler (Ventolin HFA) Of Breath Or Wheezing aspirin 81 mg tablet,delayed 81 mg PO QAM 08/28/20 09/21/23 History release (Uri Low Dose Aspirin) metformin 1,000 mg tablet 1,000 mg PO BID 08/28/20 09/21/23 History blood sugar diagnostic ([employer] #50 ea 06/02/21 09/21/23 Rx Verio test strips) blood-glucose meter ([employer] #1 ea 06/02/21 09/21/23 Rx Verio Meter) lancets 33 gauge ([employer] #100 ea 06/02/21 09/21/23 Rx Lancets) tiotropium 2.5 mcg-olodaterol 2.5 2 puff inhalation QAM 09/02/21 09/21/23 History mcg/actuation mist for inhalation (Stiolto Respimat) folic acid 1 mg tablet 1 mg PO QAM 03/24/22 09/21/23 History losartan 50 mg tablet 50 mg PO QAM 03/24/22 09/21/23 History ipratropium 0.5 mg-albuterol 3 mg 3 ml inhalation Q4H PRN shortness 12/13/22 09/21/23 Rx (2.5 mg base)/3 mL nebulization of breath #90 mL soln bupropion HCl 150 mg 24 hr tablet, 150 mg PO DAILY 08/23/23 09/21/23 History extended release furosemide 20 mg tablet 20 mg PO DAILY 08/23/23 09/21/23 History rosuvastatin 20 mg tablet 20 mg PO DAILY 08/23/23 09/21/23 History pantoprazole 40 mg tablet,delayed 40 mg PO QAM #30 tabs 08/26/23 09/21/23 Rx release apixaban 5 mg tablet (Eliquis) 5 mg PO BID #60 tabs 09/10/23 09/21/23 Rx diltiazem HCl 180 mg 180 mg PO QAM #30 caps 09/10/23 09/21/23 Rx capsule,extended release 24 hr glipizide 5 mg tablet 5 mg PO DAILY #30 tabs 09/10/23 09/21/23 Rx metoprolol succinate 50 mg 50 mg PO BID #60 tabs 09/10/23 09/21/23 Rx tablet,extended release 24 hr oxycodone 5 mg tablet 5 mg PO TID PRN Pain #30 tabs 09/10/23 09/21/23 Rx prednisone 10 mg tablet See Rx Instructions .Route 09/10/23 09/21/23 Rx .COMPLEX #40 tabs budesonide-formoterol HFA 160 2 puff inhalation BID 09/21/23 09/21/23 History mcg-4.5 mcg/actuation aerosol inhaler Patient History Medical History AAA (abdominal aortic aneurysm) Abdominal pain Acute exacerbation of chronic low back pain Acute hypercapnic respiratory failure Acute hypotension Acute kidney injury Acute on chronic respiratory failure with hypoxia Acute on chronic respiratory failure with hypoxia and hypercapnia Acute UTI TATY (acute kidney injury) AMS (altered mental status) Candidiasis of mouth and esophagus Chronic kidney disease, stage 3a Chronic low back pain Chronic pain syndrome COPD (chronic obstructive pulmonary disease) COPD exacerbation Diabetes mellitus Diabetes type 2, uncontrolled Diaphragmatic hernia (10/31/11) DVT prophylaxis History of knee replacement Hyperkalemia Hyperlipidemia Hypertension Left peroneal nerve palsy Respiratory failure Severe muscle deconditioning Syncope Tobacco abuse Surgical History H/O Achilles tendon repair (~2007) H/O: hysterectomy History of appendectomy History of bilateral oophorectomies History of lithotripsy (~2007) Hx of cholecystectomy Family History Other Family history non-contributory Social History Smoking Status: Current every day smoker Tobacco Type: Cigarettes Cigarettes Per Day: 4-5; Second Hand Exposure: Yes; Do You Dip or Chew Tobacco: No; Hx Alcohol Use: No Hx Substance Use: No Preferred Language: Venezuelan Communication Ability: Effective Dirt Bike Racer Required: No Beliefs That Will Affect Care: None marital status: Current Living Situation: Alone How many Children do You have: 3 Other Information That Helps Us Care for You: No Feels Safe at Home: Yes Safety Concerns: Feels Safe At This Time Assistive Devices: Cane, Oxygen - Continuous and Walker Review of Systems Review of Systems: All systems reviewed & are unremarkable except as noted in Subjective Physical Exam Constitutional: + acute distress Eyes: PERRL, conjunctivae normal, anicteric sclerae ENMT: Mouth: + dry oral mucous membranes and + poor dentition Neck: trachea midline Thyroid: normal thyroid Respiratory: + uses accessory muscles, + cough, + prolonged expiratory phase, + pursed lip breathing and symmetric chest movement Auscultation: + diminished lung sounds Cardiovascular: Rate/Rhythm: + tachycardic Heart Sounds: normal S1 and normal S2 Gastrointestinal (Abdomen): normal bowel sounds, soft, nontender, no hepatosplenomegaly Musculoskeletal: generalized weakness Skin: pale, dry, scattered ecchmoses Neurologic: terse demeanor, AAOx3 Psychiatric: Mood: + anxious mood Thought Process: + circumstantial thought process, + tangential thought process and + perseveration Thought Content: + preoccupation, + cognitive distortions and + compulsions Estimated Intelligence: + below average estimated intelligence Insight: + limited insight Results & Data Vital Signs (Past 12 Hours) Vital Signs Temp Pulse Resp BP Pulse Ox O2 Del Method O2 Flow Rate 09/23/23 13:47 76 16 92 Nasal Cannula 3 09/23/23 10:44 79 19 94 Nasal Cannula 4 09/23/23 09:30 81 26 H 93 Nasal Cannula 3 09/23/23 07:50 36.6 C 66 18 138/61 92 Nasal Cannula 4 09/23/23 06:58 66 18 93 Nasal Cannula 4 Laboratory Results data reviewed Diagnostic Findings data reviewed PG Care Time/CCT Total # of Minutes Spent Total Time Spent: 75 Total Time Spent with Patient: Total time spent is greater than 50% in coordination of care (as documented) at patient's floor/unit and/or counseling patient: Advanced Care Planning 09510 Advanced Care Planning 30 [place] [address] IN/OBS CONSULT LVL 5,80M Patient Type New History Comprehensive Exam Comprehensive Medical Decision Making High Complexity Diagnoses Dyspnea and respiratory abnormalities R06.00; R06.89 Palliative care by specialist Z51.5 Advanced care planning/counseling discussion Z71.89 Encounter for hospice care discussion Z71.89 Additional Codes Advanced Care Planning - 16389 Advanced Care Planning 30 Min: 37739 Advanced Care Planning 30 Min ([id number])
--- NOTE | 2023-09-23 15:03 | Pharmacy Report ---
Pharmacy Glycemic Short Note 2 - Date of Service September 23, 2023 - Glycemic Short BSG Results (Last 24 hours): 09/22/23 09/22/23 09/23/23 16:40 20:31 00:16 Glucose POC Glucose 216 H 337 H* 264 H 09/23/23 09/23/23 09/23/23 04:16 07:16 07:50 Glucose 184 H POC Glucose 217 H 208 H 09/23/23 11:43 Glucose POC Glucose 210 H OUTPATIENT ANTIDIABETIC REGIMEN: * metformin 1000mg BID * glipizide 5mg daily * HbA1C 10% 09/06/23 ASSESSMENT: 09/23: * Daniella received 120 units of insulin yesterday of which 45 were basal * Steroids were decreased from Solumedrol 40mg Q8H to Q12H * Fasting BSG this AM still significantly elevated, but much improved from yesterday. Will allow for a basal increase of 10-30% based on bedtime BSG * Mealtime BSGs stable today slightly above 200, will loosen correction factor to prevent overcorrection and tighten carbohydrate ratio to try to help with BSG elevations 09/22: * Daniella is a 73 YOF admitted with a COPD exacerbation with a history of T2DM. Pharmacy has been consulted for glycemic management while inpatient. * BSGs were elevated upon admission and were significantly elevated this AM, 10 units of Novolog administered with breakfast. Recheck 1 hour later BSG increased, pharmacy consulted and Lantus 0.4 units/kg given as well as an IV regular insulin bolus (0.1 units/kg) * Glycemic stressors include Solumedrol 40mg IV Q8H and doxycycline PO. She has been admitted recently and her BSGs have previously been very reactive to steroids. Will initiate Novolog parameters at a previously effective parameters while also minimizing the risk of overcorrecting. * Planned scale for Lantus tonight to give between a weight based stress of 2-3 based on BSGs PLAN FOR INPATIENT GLYCEMIC CONTROL: * Hold outpatient oral diabetes medications * Basal insulin * Lantus 40 units SQ QAM * Lantus 10-15-20 units HS (see eMAR for details) * Bolus insulin * NovoLog per scale ACHS or Q6hrs while NPO * Goal Range: Low 110 mg/dL - High 140 mg/dL * Correction Factor: 15 mg/dL/unit * Nutritional / Prandial insulin per carb ratio of 1 unit per 2 grams CHO consumed
--- NOTE | 2023-09-23 18:34 | Hospitalist Progress Note ---
Date of Service September 23, 2023 Assessment & Plan (1) COPD, very severe: Plan: Dyspnea 2/2 Acute on chronic COPD, severe COPD with chronic respiratory failure on home oxygen Patient is pending enrollment in hospice, continues to have hospice oriented care goals but has not yet enrolled in their services. on duonebs and steroids Incentive spirometry, flutter valve Albuterol every 4 hours as needed with respiratory -SOB and wheeze much better according to patient Patient poorly tolerant of BiPAP/CPAP, may trial nasal pillow overnight otherwise continue nocturnal oxygen Reduce IV steroids to twice daily Spoke to the patient along with palliative care nurse practitioner Karo Rivera. During the encounter, the patient wanted to leave AMA and was open to starting home hospice tomorrow. However she called me back later in her room and stated that she is willing to stay back another day and go home once hospice is established tomorrow. I noticed that she is being very impulsive about her decisions with hospice and going home. I am seeing case management note where she wanted to continue with palliative care and did not want to set up hospice yet. This must of happened after my encounter with her. Chest x-ray without overt pneumonia? Pneumonitis. Doxy for COPD exacerbation Baseline weight is approximately 66-69 kg, patient is 71.2 with edema on admission. - No overt pulmonary edema on chest x-ray, due to weight gain and swelling with some shortness of breath will increase Lasix to twice daily (2) Advanced care planning/counseling discussion: Plan: As noted (3) Hyperlipidemia: Plan: Rosuvastatin (4) Afib: Plan: History of paroxysmal A-fib Continue Eliquis Continue metoprolol Sinus on admission, rate 73 (5) Hypertension: Plan: Diltiazem, losartan continued. Adequately controlled on (6) Hyperglycemia: Plan: High blood glucose due to steroids Insulin sliding scale Consult pharmacy for glycemic control (7) COPD exacerbation: Plan I will likely discharge her in the next 1 to 2 days. Admission and Anticipated Discharge Date Admission Date: September 21, 2023 Subjective patient is impulsive about her decisions to go home. She has been wanting to go home but later changed her mind. She wants to go home with hospice. Palliative care consulted to establish hospice care at home. Review of Systems Review of Systems: All systems reviewed & are unremarkable except as noted in Subjective Physical Exam Physical Exam: General: Awake, conversant Heart: S1, S2/regular rate and rhythm, no murmur rubs or gallops Lungs: diminished breath sounds.Normal effort Abdomen: Soft/nontender/nondistended. No hepatosplenomegaly Extremities: No clubbing/cyanosis. No edema Behavior: Appropriate, cooperative Results & Data Results & Data Vital Signs (Past 12 Hours) Vital Signs Temp Pulse Resp BP Pulse Ox O2 Del Method O2 Flow Rate 09/23/23 08:15 Nasal Cannula 4 09/23/23 13:47 76 16 92 Nasal Cannula 3 09/23/23 10:44 79 19 94 Nasal Cannula 4 09/23/23 09:30 81 26 H 93 Nasal Cannula 3 09/23/23 07:50 36.6 C 66 18 138/61 92 Nasal Cannula 4 09/23/23 06:58 66 18 93 Nasal Cannula 4 PG Care Time/CCT Total # of Minutes Spent Total Time Spent with Patient: Total time spent is greater than 50% in coordination of care (as documented) at patient's floor/unit and/or counseling patient: Coding Level of Care Code 88296 SUB INP/OBS CARE 2/35MIN Diagnoses COPD, very severe J44.9 Advanced care planning/counseling discussion Z71.89 Hyperlipidemia E78.5 Afib I48.91 Hypertension I10 Hypertension type: unspecified Hyperglycemia R73.9 COPD exacerbation J44.1 (5) Hypertension Hypertension type: unspecified Qualified Code(s): I10 - Essential (primary) hypertension
[2023-09-23] MEDS: LANTUS PER UNIT CHARGE SC SCH (21:05)
[2023-09-24] MEDS: INSULIN ASPART PER UNIT CHARGE SC SCH ×4 (00:14→12:31)
[2023-09-24] MEDS: ALBUT/IPRATROP 3MG/0.5MG NEB 3 ML VIAL NEB PRN ×3 (03:09→12:24)
[2023-09-24 08:01] LABS: Hematocrit (blood only) 29.2 % (37.0-47.0); Hemoglobin 9.2 g/dl (12.0-16.0); Mean Corpuscular Hemoglobin 27.1 pg (25.0-34.0); Mean Corpuscular Hgb Conc 31.5 g/dL (32.0-36.0); Mean Corpuscular Volume 86.1 fL (80.0-100.0); Mean Platelet Volume 10.5 fL (9.4-12.4); Platelet Count 372 K/uL (130-400); RDW Standard Deviation 53.1 fL (36.4-46.3); Red Blood Count 3.39 M/uL (4.20-5.40); White Blood Count 11.74 K/ul (4.8-10.8)
[2023-09-24 08:14] LABS: BUN Creatinine Ratio 29.1 (10-20); Calcium 8.9 mg/dl (8.6-10.3); Creatinine Clr Calc Pharmacy 31.3 ml/min; Est GFR (African American) 39.9 ml/min; Est GFR (Non-African American) 34.4 ml/min; Potassium 4.1 mmol/L (3.5-5.1)
[2023-09-24 08:25] LABS: Acanthocytes 1+; Basophils # (auto) 0.01 K/uL (0.00-0.20); Basophils % (auto) 0.1 %; Immature Granulocytes # (auto) 0.15 K/uL (0.01-0.20); Immature Granulocytes % (auto) 1.3 %; Lymphocytes # (auto) 0.56 K/uL (1.20-3.40); Lymphocytes % (auto) 4.8 %; Monocytes % (auto) 2.6 %; Neutrophils # (auto) 10.72 K/uL (1.40-6.50); Neutrophils % (auto) 91.2 %; Polychromasia 1+
[2023-09-24] MEDS: LOSARTAN POTASSIUM 50 MG TAB PO SCH (08:52)
[2023-09-24] MEDS: ROSUVASTATIN CALCIUM 20 MG TAB PO SCH (08:52)
[2023-09-24] MEDS: ASPIRIN 81 MG ECTAB PO SCH (08:52)
[2023-09-24] MEDS: APIXABAN 5 MG TABLET PO SCH (08:52)
[2023-09-24] MEDS: buPROPion XL 150 MG TABCR PO SCH (08:52)
[2023-09-24] MEDS: methylPREDNISolone 40 MG in SYRINGE 0 ML IV SCH (08:52)
[2023-09-24] MEDS: FOLIC ACID 1 MG TAB PO SCH (08:52)
[2023-09-24] MEDS: PANTOprazole 40 MG TAB PO SCH (08:52)
[2023-09-24] MEDS: UMECLIDINIUM/VILANTEROL 62.5/25MCG 7 PUFFS/INHALER INH SCH (08:52)
[2023-09-24] MEDS: DOXYCYCLINE HYCLATE 100 MG CAP PO SCH (08:53)
[2023-09-24] MEDS: FLUTICASONE/VILANTEROL 200/25MCG 14 PUFFS/INHALER INH SCH (08:53)
[2023-09-24] MEDS: FUROSEMIDE 20 MG TAB PO SCH (08:54)
[2023-09-24] MEDS ORDERED: LANTUS PER UNIT CHARGE SC SCH (09:00)
[2023-09-24] MEDS: dilTIAZem HCL 180 MG CAPCR PO SCH (09:13)
[2023-09-24] MEDS: METOPROLOL SUCC 50MG EXT REL TAB PO SCH (09:13)
[2023-09-24] MEDS: oxyCODONE HCL IR 5 MG TAB (IMMEDIATE RELEASE) PO PRN ×2 (09:17→15:14)
--- NOTE | 2023-09-24 14:13 | Discharge Summary ---
Date of Service September 24, 2023 Admission HPI Per Admitting Provider Daniella is a 73-year-old female with past medical history of severe end-stage COPD, A-fib with RVR, type II DM, CKD, and grade 1 diastolic dysfunction with preserved EF who presents with acute worsening of her breathing, shortness of breath, and wheezing for 1 day. She was recently admitted for a COPD exacerbation and was being treated with a steroid taper at home. Goals of care were discussed and patient had extensive palliative consultation at prior hospitalization, Daniella is aware that she has severe COPD which is not reversible. She had previously discussed and remains interested in hospice goals of care to be kept comfortable if her COPD could not be reversed at home, and would prefer to be kept comfortable at home rather than be in the hospital if she were unlikely to get significant benefit from inp atient treatment for an exacerbation. She reports while she is still interested and would like hospice, this has not yet been set up for her at home, she does not have any hospice services, and her breathing has gotten worse before she could enroll in these. She would like treatment for a recurrent acute COPD exacerbation as an inpatient at this time. She endorses increased sputum production but is not sure what color as she swallows it, increased wheezing for 1 day which has not improved with her albuterol inhalers at home, increase shortness of breath despite 4 L of oxygen.. She is on home oxygen. She has not had any fevers, chills, or sweats. Denies chest pain or chest pressure. She feels weak and tired. She has not had any urinary symptoms. She reports she chronically has some sensitivity in her skin and her abdomen remains slightly uncomfortable but she has a good appetite. No diarrhea/constipation. No rebound/guarding at bedside. Confirms DNR/DNI Medical History: Reviewed Medications: Reviewed Surgical History: Reviewed Family history: Reviewed Allergies: Reviewed Social History: REviewed Code Status: DNR/DNI Admission Exam Per Admitting Provider General: A&Ox3. NAD. Cooperative. HEENT: Atraumatic, normocephalic. Pulm: Coarse diffusely, diffuse inspiratory and expiratory wheezes. symmetrical chest rise. No increased work of breathing. No respiratory distress. Cardiac: RRR, -mrg. Radial pulses intact and symmetrical. Abdominal: Slightly diffusely skin tender to soft palpation, no tenderness to deep palpation no rebound. nondistended, soft. BS present. Extremities: Warm, dry. Lower extremities with 2+ pitting edema bilaterally Principal Diagnosis Acute Exacerbation of chronic COPD severe COPD Discharge Exam General: Awake, conversant Heart: S1, S2/regular rate and rhythm, no murmur rubs or gallops Lungs: diminished breath sounds.Normal effort Abdomen: Soft/nontender/nondistended. No hepatosplenomegaly Extremities: No clubbing/cyanosis. No edema Behavior: Appropriate, cooperative Discharge Data Allergies Allergy/AdvReac Type Severity Reaction Status Date / Time diflunisal AdvReac Intermediate HEART RACES Verified 09/21/23 18:00 Consultations 09/21/23 18:16 ED Decision to Admit Stat 09/23/23 12:02 Consult Palliative Care Routine Hospital Course (1) COPD, very severe: Dyspnea 2/2 Acute on chronic COPD, severe COPD with chronic respiratory failure on home oxygen Patient is pending enrollment in hospice, continues to have hospice oriented care goals but has not yet enrolled in their services. She stated back yesterday so that hospice could be arranged for today. However she is now refusing hospice. When asked why, she stated that she is "not ready to ". She says that her doctor told her that she is not going to yet. Noted that she has been quite impulsive about her discharge and her decision about goals of care. She has changed her mind several times in the 2 days that I have seen her. on duonebs and steroids We will discontinue IV steroids She already has p.o. prednisone prescribed Discontinue doxycycline -SOB and wheeze much better according to patient Patient poorly tolerant of BiPAP/CPAP, may trial nasal pillow overnight otherwise continue nocturnal oxygen spoke to palliative care nurse practitioner Karo Rivera. At this point, it does not make any difference whether she goes home with hospice or palliative care or home visiting nurses. She can change her mind at any point. The hope is still for her to be transitioned to hospice when she is evaluated by home visiting nurses. (2) Advanced care planning/counseling discussion: As noted (3) Hyperlipidemia: Rosuvastatin (4) Afib: History of paroxysmal A-fib Continue Eliquis Continue metoprolol Sinus on admission, rate 73 (5) Hypertension: Diltiazem, losartan continued. Adequately controlled on (6) Hyperglycemia: High blood glucose due to steroids Insulin sliding scale (7) COPD exacerbation: Plan Discharge today with home health services Total Time Total Time Spent Total Time Spent (In Minutes): 35 Discharge Plan Discharge Items Patient Disposition: Home - Home Health Services Reason For Visit: AOC COPD Discharge Diagnosis: 1. Acute on chronic COPD 2. Severe COPD with chronic respiratory failure on home oxygen Activity: Resume your previous activity Non-emergency contact: Primary Care Provider Call non-emergency contact if: your symptoms worsen Follow-up/Referrals: Rosi Borges CRNP [Primary Care Provider] - Diet: Heart Healthy Addtl Attending Provider Instructions: Advised to follow-up with PCP in 1 week Advised that you will be seen by home health services. You have been encouraged to transition to home hospice Pending Studies at Discharge: No Stand-Alone Forms: My [facility] SoFi Medications and DC Order Prescriptions: Continued aspirin [Uri Low Dose Aspirin] 81 mg Tablet,Delayed Release (Dr/Ec) 81 mg PO QAM albuterol sulfate [Ventolin HFA] 90 mcg/actuation HFA aerosol inhaler 2 puff INHALATION Q6 PRN (Reason: Shortness Of Breath Or Wheezing) metformin 1,000 mg tablet 1,000 mg PO BID (DME) blood-glucose meter [OneTouch Verio Meter] [facility] See Rx Instructions .ROUTE .MEDSUPPLY Qty: 1 0RF Rx Instructions: to test blood sugar 1-2 times/day (DME) OneTouch Verio test strips Strip See Rx Instructions .ROUTE .MEDSUPPLY Qty: 50 3RF Rx Instructions: test blood sugar 1-2 times per day (DME) lancets [OneTouch Delica Lancets] [facility] See Rx Instructions .ROUTE .MEDSUPPLY Qty: 100 3RF Rx Instructions: test sugar 1-2 times per day losartan 50 mg tablet 50 mg PO QAM folic acid 1 mg tablet 1 mg PO QAM furosemide 20 mg tablet 20 mg PO DAILY rosuvastatin 20 mg tablet 20 mg PO DAILY bupropion HCl 150 mg tablet extended release 24 hr 150 mg PO DAILY pantoprazole 40 mg Tablet,Delayed Release (Dr/Ec) 40 mg PO QAM Qty: 30 0RF budesonide-formoterol 160-4.5 mcg/actuation HFA aerosol inhaler 2 puff INHALATION BID Stiolto Respimat 2.5-2.5 mcg/actuation mist 2 puff INHALATION QAM ipratropium-albuterol 0.5 mg-3 mg(2.5 mg base)/3 mL solution for nebulization 3 ml inhalation Q4H PRN (Reason: shortness of breath) Qty: 90 0RF Rx Instructions: until breathing returns to target peak flow/parameters Eliquis 5 mg Tablet 5 mg PO BID Qty: 60 5RF diltiazem HCl 180 mg Capsule,Extended Release 24hr 180 mg PO QAM Qty: 30 5RF glipizide 5 mg tablet 5 mg PO DAILY Qty: 30 0RF Rx Instructions: please take while on prednisone prednisone 10 mg tablet See Rx Instructions .ROUTE .COMPLEX Qty: 40 0RF Rx Instructions: 4 a day x 4 d>3 a day x 4 d>2 a day x 4 d>1 a day metoprolol succinate 50 mg tablet extended release 24 hr 50 mg PO BID Qty: 60 5RF oxycodone 5 mg tablet 5 mg PO TID PRN (Reason: Pain) Qty: 30 0RF Discharge Orders: Discharge Order (Routine); Ordered 09/24/23 Ordered By: Elsi Zavala Admission Data Admit Date/Time: 09/21/23 19:19 Attending Provider: Elsi Zavala Admit Provider: Mj Ann Primary Care Provider: Rosi Borges Other Providers: Mj Ann ; Bessy Arreola Other Interventions: Discharge Summary Assessment (RN) Last Done: 09/24/23 16:08 Coding Level of Care Code 14190 INP/OBS DISCH >30 MIN Diagnoses COPD, very severe J44.9 Advanced care planning/counseling discussion Z71.89 Hyperlipidemia E78.5 Afib I48.91 Hypertension I10 Hypertension type: unspecified Hyperglycemia R73.9 COPD exacerbation J44.1
== END 2023-09-24 16:08 | disposition home health service (06) | DRG 191 ==
LOC: ED 16:18 → 3W 19:19 → SUATTDRO 19:19 → 3W 21:27

== ENCOUNTER 2023-11-21 06:27 | Inpatient (IN) ==
[2023-11-21] MEDS ORDERED: CEFEPIME 2,000 MG/20 ML VIAL IV STA (06:47)
[2023-11-21] MEDS ORDERED: ALBUT/IPRATROP 3MG/0.5MG NEB 3 ML VIAL NEB ONE (06:47)
--- OUTSIDE RECORDS SUMMARY | 2023-11-21 06:47 | External Medical Summary | Summary of Care ---
Author Name Unknown Organization [facility] Address [address] [place] [address] Phone [phone] Care Team Providers Care Director Of Outreach Name Role Phone Rosi BorgesNP Primary Care Provider [phone]- [phone] Reason for Visit * Reason Onset Date Comments Fax 08/26/2023 EUS Order Encounter Details Date Type Department Care Team Description 08/26/2023 Telephone Gastroenterology, [facility] [address] [facility] [place] [id number] Wyatt Pearl MD [address] [address] Fax (EUS Order) Allergies Active Allergy Reactions Severity Noted Date Comments Diflunisal Nausea/vomiting 10/08/2010 documented as of this encounter (statuses as of 08/27/2023) Medications Medication Sig Dispensed Refills Start Date End Date Status ALBUTEROL SULFATE HFA 108 (90 BASE) MCG/ACT IN AERSIndications:Oth er dyspnea and respiratory abnormality,COPD, severity to be determined (HCC),COPD, moderate (HCC) 2 puffs every 4 hours as needed 1 Inhaler 5 01/06/2015 Active COMBIVENT RESPIMAT 20-100 MCG/ACT Inhaler 0 02/24/2015 Active oxygen GAS Use 2 L/min(Oxygen) as directed continuous. 0 08/14/2015 Active tiotropium bromide (SPIRIVA HANDIHALER) 18 MCG inhalation CapsuleIndications: COPD, moderate (HCC) . Do not swallow capsule. 90 Cap 1 01/30/2016 Active dicyclomine (BENTYL) 20 MG Tablet Take 1 Tab by mouth 2 times a day as needed. For abdominal pain 120 Tab 11 06/21/2016 Active fluticasone-salmete rol (ADVAIR DISKUS) 500-50 MCG/DOSE inhalerIndications: COPD, severe (HCC),Asthma, moderate persistent, well-controlled Inhale 1 Puff by mouth 2 times a day. 3 Disk Dosing Unit 1 08/02/2016 Active venlafaxine XR (EFFEXOR XR) 75 MG [id number]: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 Do not cut, crush or chew 90 Cap 1 10/04/2016 Active FELodipine ER (PLENDIL) 10 MG [id number]:Ess ential hypertension with goal blood pressure less than 140/90 Take 1 Tab by mouth daily. 90 Tab 1 10/04/2016 Active traZODone (DESYREL) 50 MG TabletIndications:A djustment disorder with disturbance of conduct Take 1 Tab by mouth at bedtime. 90 Tab 1 10/04/2016 Active glimepiride (AMARYL) 4 MG TabletIndications:T ype 2 diabetes mellitus with hemoglobin A1c goal of less than 7.5% (HCC) Take 2 Tabs by mouth daily. with the first main meal of the day for diabetes 180 Tab 1 10/04/2016 Active Lisinopril-Hydrochl orothiazide 20-25 MG per tabletIndications:E ssential hypertension with goal blood pressure less than 140/90 One pill by mouth once a day 90 Tab 1 10/04/2016 Active carvedilol (COREG) 25 MG TabletIndications:H ypertensive heart failure (HCC),Essential hypertension with goal blood pressure less than 140/90 One pill by mouth twice a day with food 90 Tab 1 10/04/2016 Active atorvaSTATin (LIPITOR) 40 MG TabletIndications:D yslipidemia, goal LDL below 100 One pill by mouth once a day at bedtime 90 Tab 1 10/04/2016 Active MetFORMIN (GLUCOPHAGE) 1000 MG TabletIndications:T ype 2 diabetes mellitus with hemoglobin A1c goal of less than 7.5% (HCC) Take 1 Tab by mouth 2 times a day. With meals. 180 Tab 1 10/04/2016 Active documented as of this encounter (statuses as of 08/27/2023) Active Problems Problem Noted Date Primary osteoarthritis of left knee 05/25 Essential hypertension with goal blood p ressure less than 140/90 04/30/2016 Synovial cyst of popliteal space ([place]) , left knee 04/25/2016 Overview: left COPD, severe 05/05/2015 Overview: Severe COPD on PFT by Gold criteria Irritable bowel syndrome 03/29/2011 Diaphragmatic hernia 04/24/2010 Tobacco use disorder 04/24/2010 Dyslipidemia, goal LDL below 100 009 Hypertensive heart failure 09/21/2009 Overview: Per Heart Failure Taxonomy Protocol. Type 2 diabetes mellitus with hemoglobin A1c goal of less than 7.5% 09/07/2009 Overview: Modified per Diabetes protocol #14. ADVANCE DIRECTIVE INFORMATION 02/07/2006 Overview: No, Advance Directive brochure offered , patient declined. Anxiety state 09/13/2002 Adjustment disorder with depressed mood 09/13/2002 GENERAL OSTEOARTHROSIS 09/13/2002 Calculus of kidney Vitamin D deficiency Overview: Vitamin D 7.4 BMI 27.0-27.9,adult Asthma, moderate persistent, well-contro lled CKD (chronic kidney disease), stage II Status post total knee replacement, left documented as of this encounter (statuses as of 08/27/2023) Resolved Problems Problem Noted Date Resolved Date Kidney disease, chronic, stage III (GFR 30-59 ml /min) 02/06/2015 04/30/2016 Overview: Per CKD protocol #1 HTN, goal below 140/80 07/13/2012 5 Overview: Per HTN Protocol #27. Asthma with severity to be determined 05/17/2010 11/10/2013 Overview: Per Asthma Taxonomy ICD-10 update of inactive term Overweight (BMI 25.0-29.9) 02/19/201005/28 Overview: Per Obesity Taxonomy HTN, goal below 130/80 10/25/2009 2 Viral pneumonia 08/29/2008 03/29/2011 CHRONIC AIRWAY OBSTRUCTION - MODERATE 08/29/2008 08/13/2011 Overview: 03/01/11 Spirometry -- FVC 80%, FEV1 59%, FEV1/FVC 58%, FEF 25/75 29%, FEF Max 40%, +reversibility 01/19/08 Spirometry -- FVC 73%, FEV1 44%, FEV1/FVC 49%, + reversibility Hypertensive heart failure 08/29/200809/21 Overview: Per Heart Failure Taxonomy Protocol. DM type 2, not at goal 08/29/2008 9 Overview: Modified per Diabetes protocol #14. COPD, moderate: FEV1 67% (2010) 08/29/2008 07/24/2015 Preoperative cardiovascular examination 07/07/20 08 08/16/2008 MEDICATION USE AGREEMENT 09/24/2006 011 EXTRINSIC ASTHMA, UNSPEC 11/02/2003 010 Peptic ulcer 09/13/2002 05/28/2012 HTN, goal below 140/90 09/13/2002 9 Obesity, BMI not known 0 Overview: Per Obesity Taxonomy HTN, goal below 140/90 6 documented as of this encounter (statuses as of 08/27/2023) Immunizations Name Administration Dates Next Due Pneumococcal Polysaccharide PPV23 (Pneumovax) 09/30/2006 Seasonal Influenza, Quadriva lent, No Preserve, IM 09/30/2016,08/18/2015 Seasonal Influenza, Split, I IV3, With Preserve, Inj 07/26/2014,09/24/2013,10/13/2012,08/13,08/30/2010,09/04/2009,08/27/2008 ,09/16/2007,09/12/2006,09/19/2005,11/03/2004,09/20/2003 TDAP (age 11 and older)(Adacel) 03/27/2016,08/16 documented as of this encounter Social History Tobacco Use Types Packs/Day Years Used Date Smoking Tobacco: Every Day Cigarettes 1 33 Started: 1982 Smokeless Tobacco: Never Comments:her average was 3 p acks a day, 05/03 - 1 pk/day Alcohol Use Standard Drinks/Week Comments No 0 (1 standard drink = 0.6 oz pur e alcohol) Sex Assigned at Date Recorded Not on file documented as of this encounter Miscellaneous Notes * Telephone Encounter - CAMERON Dominguez - 08/27/2023 2:42 PM EDT Called pt to schedule, no answer and unable to leave VM * Telephone Encounter - Zainab German DO - 08/27/2023 10:09 AM EDT Indication: Dilated pancreatic duct (suspect chronic pancreatitis) EUS (45 minutes) Within 6 to 8 weeks please * Telephone Encounter - CAMERON Quintanilla - 08/26/2023 3:53 PM EDT Records scanned, please review and advise on scheduling. * Telephone Encounter - CAMERON Dominguez - 08/26/2023 3:20 PM EDT [place] [facility] [facility] to get patient scheduled for an EUS Ordering: Wyatt Pearl Dx: other specified diseases of pancreas- K86.89 Records placed in scanning Once scanned, please forward to covering provider for review/scheduling preferences Thank you documented in this encounter Plan of Treatment Health Maintenance Due Date Last Done Comments DISCUSS TOBACCO CESSATION (REFER TO SMARTSET #2591) 1950 DXA Scan 1950 COVID-19 Vaccine (#1) 1950 Alpha-1 Antitrypsin 1970 O2 ASSESSMENT COMPLETED IN PAST YEAR FOR COPD 1970 Cologuard 1997 Colonoscopy 1997 Sigmoidoscopy 1997 Zoster Vaccines (1 of 2) 2002 Pneumococcal Vaccine: 65+ Years (2 - PCV) 09/30/2007 09/30/2006 Colorectal Cancer Screening 07/08/2008 Fecal Occult Blood Test 07/08/2008 07/08/2007 DIABETES-EYE EXAM 07/29/2013 07/29/2012, 11/09/2009 *ADVANCE DIRECTIVE NOT ON FILE 05/12/2015 Mammogram 07/26/2015 07/26/2014, 05/2013, 08/13/2011, Additional history exists Albumin/Creatinine Ratio 01/05/2016 015, 12/30/2013, 11/30/2012, Additional history exists HbA1c 04/03/2017 10/04/2016, 05/25, 01/31/2016, Additional history exists Diabetic Foot Exam 04/30/2017 04/30/2016, 0 01/05/2015, 12/30/2013, Additional history exists Depression Screening 06/21/2017 06/21/2016 GFR 10/02/2017 10/02/2016, 05/2016, 06/22/2016, Additional history exists Lipid Panel 10/04/2021 10/04/2016, 12/25, 12/30/2013, Additional history exists Influenza Vaccine (FLU shot) (#1) 2023 09/30/2016, 08/18/2015, 07/26/2014, Additional history exists DTaP,Tdap,and Td Vaccines (3 - Td or Tdap) 03/27/2026 03/27/2016, 08/16/2008 LUNG CANCER SCREENING - USE SMARTSET 22904 Completed 11/27/2009, 08/21/2009 GARDASIL-HPV IMMUNIZATION SERIES Aged Out No longer eligible based on patient's age to complete this topic Hepatitis B Aged Out No longer eligi ble based on patient's age to complete this topic MENINGOCOCCAL (MENACTRA/MENVEO) Aged Out No longer eligible based on patient's age to complete this topic documented as of this encounter Medical Devices Not on filedocumented as of this encounter Care Teams Director Of Outreach Relationship Specialty Start Date End Date Rosi Borges CRNP [address] [place] [address] PCP - General Nurse Practitioner 08/26/23 documented as of this encounter
--- OUTSIDE RECORDS SUMMARY | 2023-11-21 06:47 | External Medical Summary | Summary of Care ---
Author Name Unknown Organization [facility] Address [address] [place] [address] Phone [phone] Care Team Providers Care Hospital Manager Name Role Phone Rosi BorgesNP Primary Care Provider +1- [phone] Reason for Visit * Reason Onset Date Comments Fax 08/26/2023 EUS Order Encounter Details Date Type Department Care Team Description 08/26/2023 Telephone Gastroenterology, [facility] [address] [facility] [place] [id number] Wyatt Pearl MD [address] [address] Fax (EUS Order) Allergies Active Allergy Reactions Severity Noted Date Comments Diflunisal Nausea/vomiting 10/08/2010 documented as of this encounter (statuses as of 08/26/2023) Medications Medication Sig Dispensed Refills Start Date [...] Active venlafaxine XR (EFFEXOR XR) 75 MG [id number]: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 Do not cut, crush or chew 90 Cap 1 10/04/2016 Active FELodipine ER (PLENDIL) 10 MG [id number]:Ess ential hypertension with goal blood pressure less [...] as of this encounter (statuses as of 08/26/2023) Active Problems Problem Noted Date Primary osteoarthritis [...] as of this encounter (statuses as of 08/26/2023) Resolved Problems Problem Noted Date Resolved Date [...] as of this encounter (statuses as of 08/26/2023) Immunizations Name Administration Dates Next Due Pneumococcal Polysaccharide PPV23 (Pneumovax) 09/30/2006 Seasonal Influenza, Quadriva lent, No Preserve, IM 09/30/2016,08/18/2015 Seasonal Influenza, Split, I IV3, With Preserve, Inj 07/26/2014,09/24/2013,10/13/2012,08/13,08/30/2010,09/04/2009,08/27/2008 ,09/16/2007,09/12/2006 TDAP (age 11 and older)(Adacel) 03/27/2016,08/16 documented [...] 08/26/2023 3:20 PM EDT Fax received from [facility] to get patient scheduled for an EUS Ordering: Wyatt Pearl Dx: other specified diseases of pancreas- K86.89 Records placed in scanning Once scanned, please forward to covering provider for review/scheduling preferences Thank you documented in this encounter Plan of Treatment Health Maintenance Due Date Last Done Comments DISCUSS TOBACCO CESSATION (REFER TO SMARTSET #3291) 1950 DXA Scan 1950 COVID-19 Vaccine (#1) [...] Depression Screening 06/21/2017 06/21/2016 GFR 10/02/2017 10/02/2016, 1105/2016, 06/22/2016, Additional history exists Lipid Panel 10/04/2021 10/04/2016, 12/25, 12/30/2013, Additional history exists Influenza Vaccine (FLU shot) (#1) 2023 09/30/2016, 08/18/2015, 07/26/2014, Additional history exists DTaP,Tdap,and Td Vaccines (3 - Td or Tdap) 03/27/2026 03/27/2016, 08/16/2008 LUNG CANCER SCREENING - USE SMARTSET [id number] Completed 11/27/2009, 08/21/2009 GARDASIL-HPV IMMUNIZATION SERIES Aged [...] filedocumented as of this encounter Care Teams Hospital Manager Relationship Specialty Start Date End Date Rosi Borges CRNP [address] [place], [place] [id number] PCP - General Nurse Practitioner 08/26/23 documented as of this encounter
--- OUTSIDE RECORDS SUMMARY | 2023-11-21 06:47 | External Medical Summary | Summary of Care ---
Author Name Unknown Organization [facility] Address [address] [place] [address] Phone [phone] Care Team Providers Care Production Operations Engineer Name Role Phone Rosi BorgesNP Primary Care Provider +1- [phone] Reason for Visit * Reason Onset Date Comments Fax 08/26/2023 EUS Order Encounter Details Date Type Department Care Team Description 08/26/2023 Telephone Gastroenterology, [facility] [address] [facility] [place] [id number] Wyatt Pearl MD [address] [address] Fax (EUS Order) Allergies Active Allergy Reactions [...] Active venlafaxine XR (EFFEXOR XR) 75 MG [id number]: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 Do not cut, crush or chew 90 Cap 1 10/04/2016 Active FELodipine ER (PLENDIL) 10 MG [id number]:Ess ential hypertension with goal blood pressure less [...] Miscellaneous Notes * Telephone Encounter - CAMERON Quintanilla - 08/26/2023 3:53 PM EDT Records scanned, please review and advise on scheduling. * Telephone Encounter - CAMERON Dominguez - 08/26/2023 3:20 PM EDT Fax received [place] [facility] [facility] to get patient scheduled for an [...] 08/16/2008 LUNG CANCER SCREENING - USE SMARTSET 85027 Completed 11/27/2009, 08/21/2009 GARDASIL-HPV IMMUNIZATION SERIES Aged [...] filedocumented as of this encounter Care Teams Production Operations Engineer Relationship Specialty Start Date End Date Rosi Borges CRNP [address] [place] [address] PCP - General Nurse Practitioner 08/26/23 documented as of this encounter
--- OUTSIDE RECORDS SUMMARY | 2023-11-21 06:47 | External Medical Summary | Summary of Care ---
Author Name Unknown Organization [facility] Address [address] [place] [address] Phone [phone] Care Team Providers Care Automation Developer Name Role Phone Rosi BorgesNP Primary Care Provider +1- [phone] Reason for Visit * Reason Onset Date Comments Fax 08/26/2023 EUS Order Encounter Details Date Type Department Care Team Description 08/26/2023 Telephone Gastroenterology, [facility] [address] [facility] [place] [id number] Wyatt Pearl MD [address] [address] Fax (EUS Order) Allergies Active Allergy Reactions Severity Noted Date Comments Diflunisal Nausea/vomiting 10/08/2010 documented as of this encounter (statuses as of 09/02/2023) Medications Medication Sig Dispensed Refills Start Date [...] Active venlafaxine XR (EFFEXOR XR) 75 MG [id number]: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 Do not cut, crush or chew 90 Cap 1 10/04/2016 Active FELodipine ER (PLENDIL) 10 MG [id number]:Ess ential hypertension with goal blood pressure less [...] as of this encounter (statuses as of 09/02/2023) Active Problems Problem Noted Date Primary osteoarthritis [...] as of this encounter (statuses as of 09/02/2023) Resolved Problems Problem Noted Date Resolved Date [...] as of this encounter (statuses as of 09/02/2023) Immunizations Name Administration Dates Next Due Pneumococcal [...] Miscellaneous Notes * Telephone Encounter - CAMERON Dominguze - 09/02/2023 11:01 AM EDT Spoke to pt, eus scheduled on 09/12 w/ deja at [place] Instructions mailed * Telephone Encounter - CAMERON Dominguez - [...] 08/26/2023 3:20 PM EDT [place] [facility] [place] scheduled for [place] EUS Ordering: Wyatt Pearl Dx: other specified diseases of pancreas- K86.89 Records placed in scanning Once scanned, please forward to covering provider for review/scheduling preferences Thank you documented in this encounter Plan of Treatment Upcoming Encounters Date Type Specialty Care Team Description 09/12/2023 Procedure Only Endoscopy Zainab German, DO [address] [place] [id number] Health Maintenance Due Date Last Done Comments DISCUSS TOBACCO CESSATION (REFER TO SMARTSET #9014) 1950 DXA Scan 1950 COVID-19 Vaccine (#1) [...] 08/16/2008 LUNG CANCER SCREENING - USE SMARTSET [id number] Completed 11/27/2009, 08/21/2009 GARDASIL-HPV IMMUNIZATION SERIES Aged [...] filedocumented as of this encounter Care Teams Automation Developer Relationship Specialty Start Date End Date Rosi Borges CRNP [address] [place], [place] [id number] PCP - General Nurse Practitioner 08/26/23 documented as of this encounter
--- OUTSIDE RECORDS SUMMARY | 2023-11-21 06:47 | External Medical Summary | Summary of Care ---
Author Name Unknown Organization [facility] Address [address] [place] [address] Phone [phone] Care Team Providers Care Oil And Gas Recruiter Name Role Phone Rosi BorgesNP Primary Care Provider +1- [phone] Reason for Visit * Reason Onset Date Comments Fax 08/26/2023 EUS Order Encounter Details Date Type Department Care Team Description 08/26/2023 Telephone Gastroenterology, [facility] [address] [facility] [place] [id number] Wyatt Pearl MD [address] [address] Fax (EUS Order) Allergies Active Allergy Reactions [...] Active venlafaxine XR (EFFEXOR XR) 75 MG [id number]: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 Do not cut, crush or chew 90 Cap 1 10/04/2016 Active FELodipine ER (PLENDIL) 10 MG [id number]:Ess ential hypertension with goal blood pressure less [...] encounter Miscellaneous Notes * Telephone Encounter - Zainab German DO - 08/27/2023 10:09 AM EDT Indication: Dilated pancreatic duct (suspect chronic pancreatitis) EUS (45 minutes) Within 6 to 8 weeks please * Telephone Encounter - CAMERON Quintanilla - 08/26/2023 3:53 PM EDT Records scanned, please review and advise on scheduling. * Telephone Encounter - CAMERON Dominguez - 08/26/2023 3:20 PM EDT Fax received from [facility] [place] [facility] to get patient scheduled for an [...] 08/16/2008 LUNG CANCER SCREENING - USE SMARTSET [id number] Completed 11/27/2009, 08/21/2009 GARDASIL-HPV IMMUNIZATION SERIES Aged [...] filedocumented as of this encounter Care Teams Oil And Gas Recruiter Relationship Specialty Start Date End Date Rosi Borges CRNP [address] [place] [address] PCP - General Nurse Practitioner 08/26/23 documented as of this encounter
[2023-11-21] MEDS ORDERED: SODIUM CHLORIDE 0.9% 1,000 ML IV SCH (07:00)
[2023-11-21] MEDS ORDERED: ACETAMINOPHEN 1,000 MG/100 ML VIAL IV STA (07:10)
[2023-11-21 07:12] LABS: Hematocrit (blood only) 31.1 % (37.0-47.0); Hemoglobin 9.3 g/dl (12.0-16.0); Mean Corpuscular Hemoglobin 25.9 pg (25.0-34.0); Mean Corpuscular Hgb Conc 29.9 g/dL (32.0-36.0); Mean Corpuscular Volume 86.6 fL (80.0-100.0); Mean Platelet Volume 9.7 fL (9.4-12.4); Platelet Count 368 K/uL (130-400); RDW Coefficient of Variation 17.6 % (11.5-14.5); RDW Standard Deviation 55.9 fL (36.4-46.3); Red Blood Count 3.59 M/uL (4.20-5.40)
[2023-11-21 07:17] LABS: Appearance Urine Clear (Clear); Bacteria Urine Automated 2+ (Negative); Bilirubin Urine Negative (Negative); Blood Urine Negative (Negative); Color Urine Yellow; Glucose Urine UA 1+ (Negative); Ketones Urine 2+ (Negative); Leukocyte Esterase Urine Negative (Negative); Nitrite Urine Negative (Negative); Specific Gravity Urine 1.022 (1.000-1.030); Urobilinogen Urine Negative (Negative); pH Urine >= 9.0 (4.5-7.5)
[2023-11-21 07:19] LABS: Protein Urine 4+ (Negative)
--- NOTE | 2023-11-21 07:30 | XRay Report ---
RIGHT FOOT 3 VIEWS CLINICAL HISTORY: Fall. FINDINGS: 3 views of the right foot are obtained. No prior studies are available for comparison at th e time of dictation. The skeletal structures are osteopenic. No fracture is seen. There are large mike roberto and plantar heel spurs. Degenerative spurring is seen along the dorsal aspect of the tarsal bones . Soft tissue edema is noted along the dorsum of the foot. IMPRESSION: 1. Soft tissue swelling with no radiographic evidence of acute fracture. 2. Large heel spurs. Electronically signed by: Koby Wallace M.D. 11/21/2023 7:29 AM
[2023-11-21 07:31] LABS: Alanine Aminotransferase 12 U/L (7-52); Albumin Level 3.5 gm/dl (3.4-5.0); Alkaline Phosphatase 72 U/L (34-104); Anion Gap 7 (3-11); Aspartate Aminotransferase 11 U/L (13-39); BUN Creatinine Ratio 16.5 (10-20); Basophils # (auto) 0.06 K/uL (0.00-0.20); Basophils % (auto) 0.3 %; Bilirubin Direct 0.1 mg/dl (0-0.2); Bilirubin,Total 0.4 mg/dl (0.2-1.0); Blood Urea Nitrogen 17 mg/dl (6-23); Calcium 9.2 mg/dl (8.6-10.3); Carbon Dioxide 34 mmol/L (21-32); Chloride 97 mmol/L (98-107); Eosinophils # (auto) 0.01 K/uL (0.00-0.50); Eosinophils % (auto) 0.1 %; Est GFR (African American) 63.3 ml/min; Est GFR (Non-African American) 54.6 ml/min; Glucose 283 mg/dl (70-99(Fasting)); Immature Granulocytes % (auto) 0.5 %; Lymphocytes # (auto) 0.77 K/uL (1.20-3.40); Lymphocytes % (auto) 4.2 %; Magnesium 1.6 mg/dl (1.7-2.4); Monocytes % (auto) 4.4 %; Neutrophils # (auto) 16.46 K/uL (1.40-6.50); Neutrophils % (auto) 90.5 %; Poikilocytosis Present; Polychromasia 1+; Potassium 3.8 mmol/L (3.5-5.1); Sodium 138 mmol/L (136-145); Total Protein 6.5 gm/dl (6.0-8.3); Toxic Vacuolation 1+
[2023-11-21] MEDS ORDERED: MAGNESIUM SULFATE / D5W 1 GM/100 ML BAG IV STA (07:32)
--- NOTE | 2023-11-21 07:35 | Emergency Department Note ---
Impression & Plan Sepsis, Hypomagnesemia, Tachycardia, Altered mental status, Acute respiratory distress, Pneumonia ED Provider Note NAME: DANIELLA FLANNERY AGE: 73 SEX: F : 1950 ARRIVES VIA: Ambulance INFORMANT: [Patient][ems, nursing] ED PROVIDER(S): [Koby Magana MD] CHIEF COMPLAINT: Altered mental state HISTORY OF PRESENT ILLNESS: The patient is a 73-year-old female who presents to the ER by ambulance. She was found on the floor by her . The time down is unknown. Nursing staff believes she was down for quite some time as her clothes were soaked with urine and she was quite disheveled. The patient was reported to be confused from her baseline mental state. Her blood sugar was in the mid 200s. She seemed to be breathing rapidly and appeared short of breath. She does have COPD and typically wears 4 L of oxygen at baseline. As per the nursing staff, the patient by report is on Eliquis chronically. The patient really can provide no history at this time. She does seem confused. I have seen her move all extremities. She is covered in urine and smells strongly of urine. PMHx/PSHx/Social Hx: See Below PHYSICAL EXAM: GENERAL: Patient is in moderate respiratory distress. HEENT: No acute trauma, normocephalic atraumatic, mucous membranes moist, no nasal congestion. Pupils are equal and reactive to light. NECK: No stridor, no adenopathy, no meningismus, trachea is midline. LUNGS: Increased respiratory rate with wheezing bilaterally, diminished breath sounds bilaterally. Accessory muscle use noted. Moderate respiratory distress noted. HEART: Tachycardic, seems irregular, no obvious murmur but there are overriding lung sounds. ABDOMEN: Soft, nontender, no peritonitis. EXTREMITIES: No cyanosis, full range of motion of all the joints without pain or difficulty. Moderate bilateral pedal edema with contusion to the distal lateral right foot. No gross deformity. NEUROLOGIC: Moves all extremities, somnolent, currently nonverbal. SKIN: No jaundice, no diaphoresis. Cool to the touch. DIFFERENTIAL DIAGNOSIS: Sepsis or bacteremia, intracranial bleeding, stroke, electrolyte imbalance, pneumonia, UTI, IN, among others. EMERGENCY DEPARTMENT PROCEDURES: MEDICAL DECISION MAKING: There is a moderate leukocytosis of 18,000, this is consistent with infection. The patient is anemic but this is a baseline finding. There is a normal platelet count. No concerning coagulopathy. VBG did not show acidosis or significant CO2 retention. Renal panel testing did not show renal failure. Magnesium was low at 1.6. Lactic acid level was not elevated making severe sepsis less likely. No concerning liver enzyme elevation. ECG showed a sinus tachycardia with PACs and PVCs. No obvious ST elevation. Cardiac enzyme testing x 1 was slightly elevated. This elevation could be secondary to cardiac injury or potentially, mismatch from her fast heart rate. Urinalysis showed some presumed dehydration as well as potential infection versus some contamination. Chest x-ray shows what appears to be a right lower lung pneumonia. Brain CT shows no acute bleed or mass effect. C-spine CT shows no acute fracture. On exam, the patient was in some moderate respiratory distress. She was quite somnolent. She was tachycardic. She was febrile. Right foot film did not show any fracture. The patient does meet criteria for sepsis. Patient was aggressively managed. She received IV saline, 1.5 L. She was given a 1 hour DuoNeb and placed on BiPAP. She received IV magnesium. She received IV cefepime as empiric antibiotic coverage. She was given IV Tylenol for her fever. With the above treatment, the patient has shown improvement. Her heart rate has decreased. She seems much more comfortable with her breathing. She is more awake and interactive. The patient is in need of a hospital stay. Her sepsis is likely from pneumonia, potentially, a urinary infection. I did speak with the patient, I spoke with case management, the on-call hospitalist was consulted. Prior/Outside records/notes reviewed: Discharge note from 09/24/2023 discussing her admission for a severe COPD exacerbation. ECG per my interpretation: Indication was possible sepsis. The ECG shows what appears to be a sinus tachycardia with frequent PVCs and PACs. The rate is 132. There is some baseline artifact. No obvious ST elevation. The QTc is 503. Repeat ECG per my interpretation: Indication was tachycardia. The ECG shows a sinus tachycardia with a rate of 111. There is no ST elevation, no PVCs. The QTc is 467. Compared to the ECG earlier, the PVCs and PACs are no longer present. Continuous Cardiac Monitoring per my interpretation: An order was placed for continuous cardiac monitoring. The monitor shows a rate of 109 with sinus tachycardia with PACs and PVCs. Imaging/x-ray results per my interpretation: Right foot film does not show any obvious fracture. Chest x-ray shows some chronic change, there is some potential forming congestion/pneumonia at the right base. Chronic Medical/Social conditions affecting care: Chronic O2 use, severe COPD. Advanced age. Care/Management discussed with: Case management, the on-call hospitalist. Level of care consideration(s): After review of the information above and other included data: --I believe the patient requires escalation of care to admission Critical Care Note: I have personally spent 52 minutes of critical care time in the direct management of this patient. This includes bedside care, interpretation of diagnostic studies, and testing, discussion with consultants, patient, and family members, and other required patient management activities. This 52 minutes is in excess of all separately billable procedures. DISPOSITION: Admission Past Med/Surg History Medical History Severe muscle deconditioning COPD exacerbation Acute on chronic respiratory failure with hypoxia Chronic pain syndrome Abdominal pain Respiratory failure Hyperkalemia Diabetes type 2, uncontrolled Acute hypercapnic respiratory failure TATY (acute kidney injury) AMS (altered mental status) Syncope Acute UTI Acute hypotension Chronic kidney disease, stage 3a Acute kidney injury Acute exacerbation of chronic low back pain Candidiasis of mouth and esophagus Tobacco abuse DVT prophylaxis Diabetes mellitus COPD (chronic obstructive pulmonary disease) Hypertension Hyperlipidemia Acute on chronic respiratory failure with hypoxia and hypercapnia History of knee replacement Left peroneal nerve palsy AAA (abdominal aortic aneurysm) Diaphragmatic hernia (10/31/11) Chronic low back pain Surgical History H/O Achilles tendon repair (~2007) H/O: hysterectomy History of appendectomy History of bilateral oophorectomies History of lithotripsy (~2007) Hx of cholecystectomy Family History Other Family history non-contributory Social History Smoking Status: Current every day smoker Tobacco Type: Cigarettes Cigarettes Per Day: 4-5; Second Hand Exposure: Yes; Do You Dip or Chew Tobacco: No; Hx Alcohol Use: No Hx Substance Use: No Preferred Language: Divehi Communication Ability: Effective Shift Lab Technician Required: No Beliefs That Will Affect Care: None marital status: Current Living Situation: Spouse How many Children do You have: 3 Other Information That Helps Us Care for You: No Feels Safe at Home: Yes Safety Concerns: Feels Safe At This Time Assistive Devices: Cane, Oxygen - Continuous and Walker Allergies Allergies Allergy/AdvReac Type Severity Reaction Status Date / Time diflunisal AdvReac Intermediate HEART RACES Verified 09/21/23 18:00 Home Meds Home Medications Medication Instructions Recorded Confirmed albuterol sulfate 90 mcg/actuation 2 puff inhalation Q6 PRN Shortness 08/28/20 09/21/23 aerosol inhaler (Ventolin HFA) Of Breath Or Wheezing aspirin 81 mg tablet,delayed 81 mg PO QAM 08/28/20 09/21/23 release (Uri Low Dose Aspirin) metformin 1,000 mg tablet 1,000 mg PO BID 08/28/20 09/21/23 tiotropium 2.5 mcg-olodaterol 2.5 2 puff inhalation QAM 09/02/21 09/21/23 mcg/actuation mist for inhalation (Stiolto Respimat) folic acid 1 mg tablet 1 mg PO QAM 03/24/22 09/21/23 losartan 50 mg tablet 50 mg PO QAM 03/24/22 09/21/23 bupropion HCl 150 mg 24 hr tablet, 150 mg PO DAILY 08/23/23 09/21/23 extended release furosemide 20 mg tablet 20 mg PO DAILY 08/23/23 09/21/23 rosuvastatin 20 mg tablet 20 mg PO DAILY 08/23/23 09/21/23 budesonide-formoterol HFA 160 2 puff inhalation BID 09/21/23 09/21/23 mcg-4.5 mcg/actuation aerosol inhaler Previous Rx's Medication Instructions Recorded blood sugar diagnostic (CabanaTouch #50 ea 06/02/21 Verio test strips) blood-glucose meter (CabanaTouch #1 ea 06/02/21 Verio Meter) lancets 33 gauge (OneTouch Delica #100 ea 06/02/21 Lancets) ipratropium 0.5 mg-albuterol 3 mg 3 ml inhalation Q4H PRN shortness 12/13/22 (2.5 mg base)/3 mL nebulization of breath #90 mL soln pantoprazole 40 mg tablet,delayed 40 mg PO QAM #30 tabs 08/26/23 release apixaban 5 mg tablet (Eliquis) 5 mg PO BID #60 tabs 09/10/23 diltiazem HCl 180 mg 180 mg PO QAM #30 caps 09/10/23 capsule,extended release 24 hr glipizide 5 mg tablet 5 mg PO DAILY #30 tabs 09/10/23 metoprolol succinate 50 mg 50 mg PO BID #60 tabs 09/10/23 tablet,extended release 24 hr oxycodone 5 mg tablet 5 mg PO TID PRN Pain #30 tabs 09/10/23 prednisone 10 mg tablet See Rx Instructions .Route 09/10/23 .COMPLEX #40 tabs Results & Data (ED) Vital Signs Vital Signs - 24 hr 11/21/23 06:35 11/21/23 06:58 11/21/23 06:59 Temperature Temperature Source Pulse Rate 156 H 160 H Pulse Rate [Right Finger] Respiratory Rate 46 H Respiratory Effort / Characteristics Spontaneous Labored Short of Breath Respiratory Depth Shallow Respiratory Pattern Tachypnea Blood Pressure Blood Pressure [Right Arm] Blood Pressure Mean Blood Pressure Mean [Right Arm] Blood Pressure Position Pulse Oximetry 99 98 Oxygen Delivery Method BiPAP Oxygen Flow Rate Fraction of Inspired Oxygen 40 Sepsis New/Unexplained Change in Mental Status Sepsis Action Taken by Nursing 11/21/23 07:12 11/21/23 07:20 11/21/23 07:52 Temperature 38.4 C H Temperature Source Oral Pulse Rate 153 H Pulse Rate [Right Finger] Respiratory Rate 46 H 30 H Respiratory Effort / Characteristics Spontaneous Labored Respiratory Depth Respiratory Pattern Blood Pressure 167/104 H Blood Pressure [Right Arm] Blood Pressure Mean 125 Blood Pressure Mean [Right Arm] Blood Pressure Position Semi-fowlers Pulse Oximetry 99 98 97 Oxygen Delivery Method BiPAP Nasal Cannula BiPAP Oxygen Flow Rate 4 Fraction of Inspired Oxygen 40 Sepsis New/Unexplained Change in Mental Status Yes Sepsis Action Taken by Nursing Physician Notified 11/21/23 07:52 11/21/23 08:08 11/21/23 09:30 Temperature Temperature Source Pulse Rate Pulse Rate [Right Finger] 157 H 155 H 111 H Respiratory Rate 44 H 40 H 35 H Respiratory Effort / Characteristics Accessory Muscle Use Gasping/Agonal Respiratory Depth Respiratory Pattern Blood Pressure Blood Pressure [Right Arm] 149/75 H 130/80 147/74 H Blood Pressure Mean Blood Pressure Mean [Right Arm] 99 96 98 Blood Pressure Position Pulse Oximetry 98 98 97 Oxygen Delivery Method BiPAP BiPAP Oxygen Flow Rate Fraction of Inspired Oxygen Sepsis New/Unexplained Change in Mental Status Sepsis Action Taken by Nursing 11/21/23 09:44 11/21/23 10:00 Temperature Temperature Source Pulse Rate Pulse Rate [Right Finger] 109 H 111 H Respiratory Rate 40 H 34 H Respiratory Effort / Characteristics Respiratory Depth Respiratory Pattern Blood Pressure Blood Pressure [Right Arm] 156/80 H 155/75 H Blood Pressure Mean Blood Pressure Mean [Right Arm] 105 101 Blood Pressure Position Pulse Oximetry 97 93 Oxygen Delivery Method BiPAP BiPAP Oxygen Flow Rate Fraction of Inspired Oxygen Sepsis New/Unexplained Change in Mental Status Sepsis Action Taken by Group Home Medications Current Medication List: was personally reviewed by me Laboratory Data Attestation: I reviewed the patient's lab results. 11/21/23 06:55 11/21/23 06:55 Lab Results 11/21/23 11/21/23 11/21/23 Range/Units 06:55 06:58 07:35 WBC 18.20 H (4.8-10.8) K/ul RBC 3.59 L (4.20-5.40) M/uL Hgb 9.3 L (12.0-16.0) g/dl Hct 31.1 L (37.0-47.0) % MCV 86.6 (80.0-100.0) fL MCH 25.9 (25.0-34.0) pg MCHC 29.9 L (32.0-36.0) g/dL RDW Std Deviation 55.9 H (36.4-46.3) fL RDW Coeff of Dorcas 17.6 H (11.5-14.5) % Plt Count 368 (130-400) K/uL MPV 9.7 (9.4-12.4) fL Immature Gran % (Auto) 0.5 % Neut % (Auto) 90.5 % Lymph % (Auto) 4.2 % Power % (Auto) 4.4 % Eos % (Auto) 0.1 % Baso % (Auto) 0.3 % Neut # (Auto) 16.46 H (1.40-6.50) K/uL Lymph # (Auto) 0.77 L (1.20-3.40) K/uL Power # (Auto) 0.80 H (0.11-0.59) K/uL Eos # (Auto) 0.01 (0.00-0.50) K/uL Baso # (Auto) 0.06 (0.00-0.20) K/uL Immature Gran # (Auto) 0.10 (0.01-0.20) K/uL Toxic Vacuolation 1+ Polychromasia 1+ Poikilocytosis Present PT 12.4 H (9.0-12.0) Seconds INR 1.1 (0.9-1.1) APTT 30 (21-31) Seconds PTT Ratio 1.1 VBG pH 7.41 (7.36-7.41) VBG pCO2 52 H (38-50) mmHg VBG pO2 66 mmHg VBG HCO3 33 mmol/L VBG O2 Saturation 93.3 % VBG Base Excess 7.2 mEq/L Sodium 138 (136-145) mmol/L Potassium 3.8 (3.5-5.1) mmol/L Chloride 97 L (98-107) mmol/L Carbon Dioxide 34 H (21-32) mmol/L Anion Gap 7 (3-11) BUN 17 (6-23) mg/dl Creatinine 1.03 (0.6-1.2) mg/dl Est Cr Clr Drug Dosing Not Reportable Est GFR ( Amer) 63.3 ml/min Est GFR (Non-Af Amer) 54.6 ml/min BUN/Creatinine Ratio 16.5 (10-20) Glucose 283 H (70-99(Fasting)) mg/dl Lactate 1.3 (0.4-2.0) mmol/L Calcium 9.2 (8.6-10.3) mg/dl Magnesium 1.6 L (1.7-2.4) mg/dl Total Bilirubin 0.4 (0.2-1.0) mg/dl Direct Bilirubin 0.1 (0-0.2) mg/dl AST 11 L (13-39) U/L ALT 12 (7-52) U/L Alkaline Phosphatase 72 (34-104) U/L Troponin I High Sens 14.2 H (0-14) pg/ml Total Protein 6.5 (6.0-8.3) gm/dl Albumin 3.5 (3.4-5.0) gm/dl Procalcitonin 0.20 (0-0.5) ng/ml Urine Color Yellow Urine Appearance Clear (Clear) Urine pH >= 9.0 H (4.5-7.5) Ur Specific [place] 1.022 (1.000-1.030) Urine Protein 4+ H (Negative) Urine Glucose (UA) 1+ H (Negative) Urine Ketones 2+ H (Negative) Urine Blood Negative (Negative) Urine Nitrite Negative (Negative) Urine Bilirubin Negative (Negative) Urine Urobilinogen Negative (Negative) Ur Leukocyte Esterase Negative (Negative) Urine WBC (Auto) 10-30 H (0-5) /hpf Urine RBC (Auto) 10-30 H (0-4) /hpf U Hyaline Cast (Auto) 1-5 (0-5) /lpf U Epithel Cells (Auto) 5-10 H (0-5) /lpf Urine Bacteria (Auto) 2+ H (Negative) Ur Renal Epithelial Cell Not Reportable Administered Medications Aspirin (Aspirin 81 Mg Ectab) 81 mg PO [facility] Stop: 12/21/23 11:53 Last Admin: 11/21/23 13:07 Dose: 81 mg Documented By: ISAÍAS Diltiazem HCl (Diltiazem Hcl 180 Mg Capcr) 180 mg PO [facility] Stop: 12/21/23 11:53 Last Admin: 11/21/23 13:07 Dose: 180 mg Documented By: ISAÍAS Doxycycline Hyclate 100 mg/ (Dextrose) 100 mls @ 50 mls/hr IV ONE ONE Stop: 11/21/23 14:44 Last Admin: 11/21/23 12:58 Dose: 50 mls/hr Documented By: ISÍAAS Insulin Aspart (Insulin Aspart Per Unit Charge) 0 units SC [facility] Stop: 12/21/23 11:53 Last Admin: 11/21/23 12:56 Dose: 5 units Documented By: ISAÍAS Co-signed By: SHANIQUE Losartan Potassium (Losartan Potassium 50 Mg Tab) 50 mg PO [facility] Stop: 12/21/23 11:53 Last Admin: 11/21/23 13:07 Dose: 50 mg Documented By: ISAÍAS Discontinued Medications Albuterol (Albut/Ipratrop 3mg/0.5mg Neb 3 Ml Vial) 12 ml NEB ONE ONE; Protocol Stop: 11/21/23 06:48 Last Admin: 11/21/23 07:12 Dose: 12 ml Documented By: ANTONIO Sodium Chloride (Nss) 1,000 mls @ 999 mls/hr IV .Q1H1M [facility] Stop: 11/21/23 08:00 Last Infusion: 11/21/23 08:44 Dose: Infused Documented By: Admin: 11/21/23 07:40 Dose: 999 mls/hr Documented By: KATYA Cefepime HCl (Maxipime) 2,000 mg in 20 mls @ 5 mls/min IV NOW STA; Protocol Stop: 11/21/23 06:50 Last Admin: 11/21/23 07:39 Dose: 5 mls/min Documented By: KATYA Acetaminophen (Ofirmev) 1,000 mg in 100 mls @ 400 mls/hr IV NOW STA Stop: 11/21/23 07:24 Last Infusion: 11/21/23 07:56 Dose: Infused Documented By: Admin: 11/21/23 07:40 Dose: 400 mls/hr Documented By: KATYA Magnesium Sulfate/Dextrose (Magnesium Sulfate / D5w) 1 gm in 100 mls @ 100 mls/hr IV NOW STA Stop: 11/21/23 08:31 Last Infusion: 11/21/23 08:44 Dose: Infused Documented By: Admin: 11/21/23 07:39 Dose: 100 mls/hr Documented By: KATYA Sodium Chloride (Nss) 500 mls @ 999 mls/hr IV .Q31M ONE Stop: 11/21/23 08:23 Last Infusion: 11/21/23 08:44 Dose: Infused Documented By: Admin: 11/21/23 07:55 Dose: 999 mls/hr Documented By: KATYA Magnesium Sulfate/Dextrose (Magnesium Sulfate / D5w) 1 gm in 100 mls @ 50 mls/hr IV ONE ONE Stop: 11/21/23 13:53 Last Admin: 11/21/23 12:57 Dose: 50 mls/hr Documented By: ISAÍAS Insulin Glargine (Lantus Per Unit Charge) 10 units SQ ONE ONE Stop: 11/21/23 12:12 Last Admin: 11/21/23 12:56 Dose: 10 units Documented By: ISAÍAS Co-signed By: DLN Metoprolol Tartrate (Metoprolol Tartrate 50 Mg Tab) 50 mg PO NOW STA Stop: 11/21/23 08:40 Last Admin: 11/21/23 11:18 Dose: 50 mg Documented By: KATYA Imaging Data Radiologist's Impression: Cervical Spine CT 11/21/23 06:47 CT SCAN OF THE CERVICAL SPINE CLINICAL HISTORY: Fall. COMPARISON STUDY: CT of the cervical spine dated 05/30/2021. TECHNIQUE: CT scan of the cervical spine is performed from the skull base to the upper thoracic spine. Images are reviewed in the axial, sagittal, and coronal planes. IV contrast was not administered for this examination. A dose lowering technique was utilized adhering to the principles of ALARA. FINDINGS: Skeletal structures: The skeletal structures are osteopenic. There is no evidence of fracture or subluxation involving the cervical spine. Vertebral body height and alignment are maintained. Anterior osteophytes are seen throughout. There is mild straightening of the cervical lordosis. The odontoid process and lateral masses are intact. The atlantoaxial articulation is preserved noting advanced productive degenerative change. The spinous processes appear intact. There is moderate multilevel cervical spondylosis. Uncovertebral and facet arthropathy contribute to neural foraminal stenosis at several levels. Intervertebral discs: There is minimal degenerative disc space narrowing. Central canal: Grossly patent. Soft tissues: The prevertebral and paraspinous soft tissues are within normal limits. There is atherosclerotic calcification of the carotid bulbs. Calvarium: The visualized calvarium at the skull base appears intact. Brain parenchyma: Partially visualized brain parenchyma at the skull base is within normal limits. Sinuses and mastoids: Mucosal thickening is noted in the right sphenoid sinus. There are bilateral mastoid effusions. Lung apices: Emphysematous change is noted at the lung apices. Apical lung parenchyma is otherwise clear as imaged. IMPRESSION: 1. There is no evidence of fracture or subluxation involving the cervical spine. 2. Osteopenia and spondylotic change as above. 3. Emphysema. ACT 112: Negative or not required by law. Electronically signed by: Koby Wallace M.D. 11/21/2023 10:45 AM Foot X-Ray 11/21/23 06:47 RIGHT FOOT 3 VIEWS CLINICAL HISTORY: Fall. FINDINGS: 3 views of the right foot are obtained. No prior studies are available for comparison at the time of dictation. The skeletal structures are osteopenic. No fracture is seen. There are large dorsal and plantar heel spurs. Degenerative spurring is seen along the dorsal aspect of the tarsal bones. Soft tissue edema is noted along the dorsum of the foot. IMPRESSION: 1. Soft tissue swelling with no radiographic evidence of acute fracture. 2. Large heel spurs. Electronically signed by: Koby Wallace M.D. 11/21/2023 7:[address] 11/21/23 06:47 CT head/brain wo con CLINICAL HISTORY: altered Technique: Contiguous axial CT images of the head were acquired from the base of the skull to the vertex without intravenous contrast administration. Images were viewed in brain, subdural and bone windows. Automated dose lowering techniques and/or adjustment according to patient size were utilized for this exam. Comparison: Comparison is made to CT head 09/08/2020 Findings: Areas of decreased attenuation are present in the periventricular and subcortical white matter bilaterally consistent with small vessel ischemic disease. Generalized cerebral atrophy with commensurate enlargement of the ventricles, sulci, and cisterns is also present. There is no acute intracranial hemorrhage or evidence of acute territorial infarction. No shift of the midline structures, mass effect, or extra-axial abnormalities are shown. Atherosclerotic calcifications are present in the intracranial segments of the internal carotid arteries. Imaged portions of the paranasal sinuses and mastoid air cells are clear. The orbits appear normal. There are no acute fractures of the calvaria or scalp swelling. Impression: No acute intracranial hemorrhage, no evidence of acute territorial infarction or other acute intracranial disease process. ACT 112: Negative or not required by law. Electronically signed by: Tushar Souza M.D. 11/21/2023 10:32 AM Chest X-Ray 11/21/23 06:48 XR chest 1V portable HISTORY: 73 years-old Female Sepsis acute sepsis COMPARISON: 09/21/2023 TECHNIQUE: AP view of the chest FINDINGS: Cardiomediastinal and hilar silhouettes are unchanged. Emphysema with hyperinflation and chronic interstitial coarsening. Mildly progressed patchy subsegmental right basilar opacities. Degenerative changes of the shoulders and spine. IMPRESSION: 1. Mildly progressed subsegmental right basilar opacities which may represent atelectasis/scarring versus superimposed pneumonitis. 2. Emphysema. ACT 112: Negative or not required by law. The above report was generated using voice recognition software. It may contain grammatical, syntax or spelling errors. Electronically signed by: Israel Sharma M.D. 11/21/2023 7:34 AM Discharge Plan Visit Data Chief Complaint: Altered Mental Status Stated Complaint: AMS, Fall ED Provider: Koby Magana Discharge Problem: Sepsis, Hypomagnesemia, Tachycardia, Altered mental status, Acute respiratory distress, Pneumonia Patient Disposition: Admitted As Inpatient Condition: Serious Discharge Instructions Interventions: ED Discharge Assessment Last Done: 11/21/23 11:21 Discharge Problem: Sepsis Qualifiers: Sepsis type: sepsis due to unspecified organism Sepsis acute organ dysfunction status: unspecified Qualified Code(s): A41.9 - Sepsis, unspecified organism Altered mental status Qualifiers: Altered mental status type: somnolence Qualified Code(s): R40.0 - Somnolence Pneumonia Qualifiers: Pneumonia type: due to unspecified organism Laterality: right Lung location: l ower lobe of lung Qualified Code(s): J18.9 - Pneumonia, unspecified organism
--- NOTE | 2023-11-21 07:35 | XRay Report ---
XR chest 1V portable HISTORY: 73 years-old Female Sepsis acute sepsis COMPARISON: 09/21/2023 TECHNIQUE: AP view of the chest FINDINGS: Cardiomediastinal and hilar silhouettes are unchanged. Emphysema with hyperinflation and chronic inte rstitial coarsening. Mildly progressed patchy subsegmental right basilar opacities. Degenerative wong ges of the shoulders and spine. IMPRESSION: 1. Mildly progressed subsegmental right basilar opacities which may represent atelectasis/scarring ve rsus superimposed pneumonitis. 2. Emphysema. ACT 112: Negative or not required by law. The above report was generated using voice recognition software. It may contain grammatical, syntax o r spelling errors. Electronically signed by: Israel Sharma M.D. 11/21/2023 7:34 AM
[2023-11-21 07:37] LABS: Troponin I High Sensitivity 14.2 pg/ml (0-14)
[2023-11-21 07:42] LABS: Base Excess VBG 7.2 mEq/L; HCO3 VBG 33 mmol/L; Oxygen Saturation VBG 93.3 %; PCO2 VBG 52 mmHg (38-50); PO2 VBG 66 mmHg; pH VBG 7.41 (7.36-7.41)
[2023-11-21 07:42] LABS: INR 1.1 (0.9-1.1); Partial Thromboplastin Ratio 1.1; Partial Thromboplastin Time 30 Seconds (21-31); Prothrombin Time 12.4 Seconds (9.0-12.0)
[2023-11-21] MEDS ORDERED: SODIUM CHLORIDE 0.9% 500 ML IV ONE (07:53)
[2023-11-21] MEDS ORDERED: METOPROLOL TARTRATE 50 MG TAB PO STA (08:39)
--- NOTE | 2023-11-21 10:03 | History & Physical Report ---
Date of Service November 21, 2023 Assessment & Plan (1) Metabolic encephalopathy: Plan: Suspect sepsis 2nd to possible pneumonia vs UTI vs other. End stage COPD On BiPAP in ER, breathing comfortable. -DOES NOT WANT INTUBATED, confirmed wishes with . Ok for meds/abx/fluids, but no intubation. Prior discussion w/ home on hospice but wasn't ready and again, reports patient was cooking turkey/ham this week, casserole last evening and was doing fairly well in the interim since last admission. They recently filled rx for nebulizer treatments at home Admit PCU Continue BiPAP for now, VBG on admit w/ normal pH 7.41, pCO2 52 IVF: 1.5L IVF ordered for sepsis/dehydration on exam/poor PO intake since arrival Lactic wnl, Procal 0.20 Mag 1.6, 1gm IV ordered, repeat 1gm IV abx: Cefepime, will continue Cefepime/Doxy for PNA coverage. Check MRSA nares Urine/blood cultures pending -- f/u EKG obtained w/ elevated HR, reports likely not gotten her meds -> metoprolol 50mg x 1 NOW, schedule 50mg BID. Cardizem to resume NOW CT head NEGATIVE --> Eliquis 5mg BID to resume, aspirin 81mg daily -- > Keep mag/K replete F/u cxs, labs in AM. PT/OT consults (2) Sepsis: Plan: suspected given leukocytosis, fever 38C possible pulmonary vs urine source UA w/ 2+ bacteria, WBC>epi. CXR w/ mildly progressed subsegmental R basilar opacities, atelectasis/scarring vs superimposed pneumonitis (3) Acute on chronic respiratory failure with hypoxia and hypercapnia: Plan: VBG w/ elevated CO2, chronic COPD, severe. prior admits w/ hospice discussion but unready. Appears baseline on 3-4L O2, will need to verify Abx w/ Cefepime/Doxy should cover for any exacerbation however denied any recent illness Of note, also on furosemide 20mg daily, will hold off for now until PO intake improved. Check BNP w/ next lab draw (4) Acute exacerbation of chronic obstructive pulmonary disease: (5) Afib: Plan: CT head negative EKG w/ sinus tachy on admit metoprolol 50mg x 1 NOW for elevated rates to 140s, cardizem resumed eliquis continued monitor on telemetry, keep K/Mag replete (6) UTI (urinary tract infection): Plan: possible, abx as above f/u urine cx (7) Diabetes type 2, uncontrolled: Plan: Last A1c 10.0, much worse than priors appears was on prednisone taper recently BSGs elevated, glargine x 1, sliding scale insulin added Of note, only on metformin 1g BID at baseline, glipizide 5mg daily Hx abdominal discomfort/possible chronic abdominal pains when I had her in February 2022. Prior notes EGD arrangement at ok was DECLINED despite reports of issues w/ dysphagia at baseline (8) Hypertension: Plan: BP 167/104 on admission does note she forgets medications sometimes at home -- home meds w/ losartan 50mg, metoprolol 50mg BID, Cardizem 180 mg daily Given metoprolol NOW x1, resumed Cardizem for today Continue usual medications daily w/ losartan, Metoprolol, Cardizem Holding off Lasix for now, BNP added to labs BP presently 158/66 Monitor (9) Anemia: Plan: Hgb appearing around baseline compared to values in August and before Checked iron studies for completeness Iron LOW 10, transferrin % sat 3, ferritin only 43 Venofer 300mg IV x 1, repeat tomorrow Check B12/folate w/ AM labs given normocytic fecal occult for completeness if able to collect Monitor CBC Plan ideally wanting patient home at ok w/ services. did not appear ok w/ discussion for hospice at present time but will monitor her course. continue IV abx/supportive care, f/u cultures PT/OT evals when able to be undertaken History of Present Illness Chief Complaint: AMS, found down Primary Care Provider: BRET Espinoza 73yo female with end stage COPD/emphysema was brought in by EMS for call from reporting found down. Per discussion w/ , had been alert/oriented all week, doing well, making turkey/ham for holidays and even making casserole last evening around 7pm. He notes she was watching TV until at least 1am, and he notes he got up to urinate around quarter to 5 and found down in front of the sink and believes she was attempting to make coffee. He reports she was talking some but a little altered and he didn't want to get her up by himself and he called EMS. She is NOT on hospice, and he reports typically does well. He notes goal is to get home but discussed concerns for sepsis, possible pneumonia vs urinary so urce. Patient very sleepy in room but arousable to painful stimuli and falls back asleep. Nods head yes when asked about her legs being weak prior to fall/making coffee but not able to provide much information. She is not able to follow commands but has been moving around in bed without focal deficit. On BiPAP, breathing slightly fast but improved frmo this morning. Temp 38.4C, biofire testing negative. CXR w/ mildly progressed subsegmental R basilar opacities may represent atelectasis/scaring vs pneumonitis. Appears possible prior speech eval for esophageal dysphagia, will order diet w/ aspiration precautions for now. reports some bruising to her foot/swelling but reports improves with elevation at night. Denies trauma. Imaging negative for acute fracture. does note that she doesn't always remember her pills and may not have had them last night or this morning. Ordered pills for this morning, EKG. Discussed admission for abx/treatment possible infection and therapy, he would like home nursing again at ok. Questions/concerns addressed at present time. CT head/cervical spine pending for further evaluation, eliquis ordered for this evening but pending imaging may need held. Allergies Allergy/AdvReac Type Severity Reaction Status Date / Time diflunisal AdvReac Intermediate HEART RACES Verified 09/21/23 18:00 Home Medications Medication Instructions Recorded Confirmed Type albuterol sulfate 90 mcg/actuation 2 puff inhalation Q6 PRN Shortness 08/28/20 09/21/23 History aerosol inhaler (Ventolin HFA) Of Breath Or Wheezing aspirin 81 mg tablet,delayed 81 mg PO QAM 08/28/20 09/21/23 History release (Uri Low Dose Aspirin) metformin 1,000 mg tablet 1,000 mg PO BID 08/28/20 09/21/23 History blood sugar diagnostic ([employer] #50 ea 06/02/21 09/21/23 Rx Verio test strips) blood-glucose meter ([employer] #1 ea 06/02/21 09/21/23 Rx Verio Meter) lancets 33 gauge (Jorge [employer] Tapia #100 ea 06/02/21 09/21/23 Rx Lancets) tiotropium 2.5 mcg-olodaterol 2.5 2 puff inhalation QAM 09/02/21 09/21/23 History mcg/actuation mist for inhalation (Stiolto Respimat) folic acid 1 mg tablet 1 mg PO QAM 03/24/22 09/21/23 History losartan 50 mg tablet 50 mg PO QAM 03/24/22 09/21/23 History ipratropium 0.5 mg-albuterol 3 mg 3 ml inhalation Q4H PRN shortness 12/13/22 09/21/23 Rx (2.5 mg base)/3 mL nebulization of breath #90 mL soln bupropion HCl 150 mg 24 hr tablet, 150 mg PO DAILY 08/23/23 09/21/23 History extended release furosemide 20 mg tablet 20 mg PO DAILY 08/23/23 09/21/23 History rosuvastatin 20 mg tablet 20 mg PO DAILY 08/23/23 09/21/23 History pantoprazole 40 mg tablet,delayed 40 mg PO QAM #30 tabs 08/26/23 09/21/23 Rx release apixaban 5 mg tablet (Eliquis) 5 mg PO BID #60 tabs 09/10/23 09/21/23 Rx diltiazem HCl 180 mg 180 mg PO QAM #30 caps 09/10/23 09/21/23 Rx capsule,extended release 24 hr glipizide 5 mg tablet 5 mg PO DAILY #30 tabs 09/10/23 09/21/23 Rx metoprolol succinate 50 mg 50 mg PO BID #60 tabs 09/10/23 09/21/23 Rx tablet,extended release 24 hr oxycodone 5 mg tablet 5 mg PO TID PRN Pain #30 tabs 09/10/23 09/21/23 Rx prednisone 10 mg tablet See Rx Instructions .Route 09/10/23 09/21/23 Rx .COMPLEX #40 tabs budesonide-formoterol HFA 160 2 puff inhalation BID 09/21/23 09/21/23 History mcg-4.5 mcg/actuation aerosol inhaler Past Med/Surg History Medical History Severe muscle deconditioning COPD exacerbation Acute on chronic respiratory failure with hypoxia Chronic pain syndrome Abdominal pain Respiratory failure Hyperkalemia Diabetes type 2, uncontrolled Acute hypercapnic respiratory failure TATY (acute kidney injury) AMS (altered mental status) Syncope Acute UTI Acute hypotension Chronic kidney disease, stage 3a Acute kidney injury Acute exacerbation of chronic low back pain Candidiasis of mouth and esophagus Tobacco abuse DVT prophylaxis Diabetes mellitus COPD (chronic obstructive pulmonary disease) Hypertension Hyperlipidemia Acute on chronic respiratory failure with hypoxia and hypercapnia History of knee replacement Left peroneal nerve palsy AAA (abdominal aortic aneurysm) Diaphragmatic hernia (10/31/11) Chronic low back pain Surgical History H/O Achilles tendon repair (~2007) H/O: hysterectomy History of appendectomy History of bilateral oophorectomies History of lithotripsy (~2007) Hx of cholecystectomy Family History Other Family history non-contributory Social History Smoking Status: Current every day smoker Tobacco Type: Cigarettes Cigarettes Per Day: 4-5; Second Hand Exposure: Yes; Do You Dip or Chew Tobacco: No; Hx Alcohol Use: No Hx Substance Use: No Preferred Language: Tamazight Communication Ability: Effective Fruit Receiver Required: No Beliefs That Will Affect Care: None marital status: Current Living Situation: Spouse How many Children do You have: 3 Other Information That Helps Us Care for You: No Feels Safe at Home: Yes Safety Concerns: Feels Safe At This Time Assistive Devices: Cane, Oxygen - Continuous and Walker Physical Exam Physical Exam: General: fatigued, sleepy appearing female sitting up in bed, NAD but tachypneic, HR in 120-130s, frequent PACs awoken to name/stimuli but falls back asleep quickly Heent: head normocephalic, pupils equal/reactive resp: tachypneic, BiPAP in place, diminished in the bases, bibasilar crackles, no cough cv; tachycardic (?irregular vs frequent PVC/PACs), +murmur, no pitting edema gi: +BS, soft/NT gu; no pederson MSK/Neuro: nonfocal but not able to participate much with exam moving all extremities in bed without command no focal loss of strength bruising/ecchymosis to R foot, nontender, no draining lesions Psych: alert to person but falls back asleep quickly, unable to assess completeness Results & Data Results & Data Vital Signs (Past 12 Hours) Vital Signs Temp Pulse Pulse Resp BP BP Pulse Ox 11/21/23 09:44 109 H 40 H 156/80 H 97 11/21/23 09:30 111 H 35 H 147/74 H 97 11/21/23 08:08 155 H 40 H 130/80 98 11/21/23 07:52 157 H 44 H 149/75 H 98 11/21/23 07:52 97 11/21/23 07:20 38.4 C H 153 H 30 H 167/104 H 98 11/21/23 07:12 46 H 99 11/21/23 06:59 98 11/21/23 06:58 160 H 46 H 99 11/21/23 06:35 156 H O2 Del Method O2 Flow Rate FiO2 11/21/23 09:44 BiPAP 11/21/23 09:30 BiPAP 11/21/23 08:08 BiPAP 11/21/23 07:52 11/21/23 07:52 BiPAP 11/21/23 07:20 Nasal Cannula 4 11/21/23 07:12 BiPAP 40 11/21/23 06:59 BiPAP 11/21/23 06:58 40 11/21/23 06:35 Laboratory Results 11/21/23 11/21/23 11/21/23 Range/Units 12:42 11:46 11:45 WBC (4.8-10.8) K/ul RBC (4.20-5.40) M/uL Hgb (12.0-16.0) g/dl Hct (37.0-47.0) % MCV (80.0-100.0) fL MCH (25.0-34.0) pg MCHC (32.0-36.0) g/dL RDW Std Deviation (36.4-46.3) fL RDW Coeff of Dorcas (11.5-14.5) % Plt Count (130-400) K/uL MPV (9.4-12.4) fL Immature Gran % (Auto) % Neut % (Auto) % Lymph % (Auto) % Larimer % (Auto) % Eos % (Auto) % Baso % (Auto) % Neut # (Auto) (1.40-6.50) K/uL Lymph # (Auto) (1.20-3.40) K/uL Larimer # (Auto) (0.11-0.59) K/uL Eos # (Auto) (0.00-0.50) K/uL Baso # (Auto) (0.00-0.20) K/uL Immature Gran # (Auto) (0.01-0.20) K/uL Toxic Vacuolation Polychromasia Poikilocytosis PT (9.0-12.0) Seconds INR (0.9-1.1) APTT (21-31) Seconds PTT Ratio VBG pH (7.36-7.41) VBG pCO2 (38-50) mmHg VBG pO2 mmHg VBG HCO3 mmol/L VBG O2 Saturation % VBG Base Excess mEq/L Sodium (136-145) mmol/L Potassium (3.5-5.1) mmol/L Chloride (98-107) mmol/L Carbon Dioxide (21-32) mmol/L Anion Gap (3-11) BUN (6-23) mg/dl Creatinine (0.6-1.2) mg/dl Est Cr Clr Drug Dosing Est GFR ( Amer) ml/min Est GFR (Non-Af Amer) ml/min BUN/Creatinine Ratio (10-20) Glucose (70-99(Fasting)) mg/dl POC Glucose 332 H* 335 H* (70-99) mg/dl Lactate (0.4-2.0) mmol/L Calcium (8.6-10.3) mg/dl Magnesium (1.7-2.4) mg/dl Iron 10 L (35-150) mcg/dl TIBC 328 (250-450) mcg/dl Unsaturated IBC 318 (155-355) mcg/dl Transferrin % Sat 3 L (15-50) % Ferritin 43.4 (8-388) ng/ml Total Bilirubin (0.2-1.0) mg/dl Direct Bilirubin (0-0.2) mg/dl AST (13-39) U/L ALT (7-52) U/L Alkaline Phosphatase (34-104) U/L Troponin I High Sens (0-14) pg/ml B-Natriuretic Peptide 308 H (0-100) pg/ml Total Protein (6.0-8.3) gm/dl Albumin (3.4-5.0) gm/dl Procalcitonin (0-0.5) ng/ml Urine Color Urine Appearance (Clear) Urine pH (4.5-7.5) Ur Specific Bison (1.000-1.030) Urine Protein (Negative) Urine Glucose (UA) (Negative) Urine Ketones (Negative) Urine Blood (Negative) Urine Nitrite (Negative) Urine Bilirubin (Negative) Urine Urobilinogen (Negative) Ur Leukocyte Esterase (Negative) Urine WBC (Auto) (0-5) /hpf Urine RBC (Auto) (0-4) /hpf U Hyaline Cast (Auto) (0-5) /lpf U Epithel Cells (Auto) (0-5) /lpf Urine Bacteria (Auto) (Negative) Ur Renal Epithelial Cell 11/21/23 11/21/23 11/21/23 Range/Units 07:35 06:58 06:55 WBC 18.20 H (4.8-10.8) K/ul RBC 3.59 L (4.20-5.40) M/uL Hgb 9.3 L (12.0-16.0) g/dl Hct 31.1 L (37.0-47.0) % MCV 86.6 (80.0-100.0) fL MCH 25.9 (25.0-34.0) pg MCHC 29.9 L (32.0-36.0) g/dL RDW Std Deviation 55.9 H (36.4-46.3) fL RDW Coeff of Dorcas 17.6 H (11.5-14.5) % Plt Count 368 (130-400) K/uL MPV 9.7 (9.4-12.4) fL Immature Gran % (Auto) 0.5 % Neut % (Auto) 90.5 % Lymph % (Auto) 4.2 % Larimer % (Auto) 4.4 % Eos % (Auto) 0.1 % Baso % (Auto) 0.3 % Neut # (Auto) 16.46 H (1.40-6.50) K/uL Lymph # (Auto) 0.77 L (1.20-3.40) K/uL Larimer # (Auto) 0.80 H (0.11-0.59) K/uL Eos # (Auto) 0.01 (0.00-0.50) K/uL Baso # (Auto) 0.06 (0.00-0.20) K/uL Immature Gran # (Auto) 0.10 (0.01-0.20) K/uL Toxic Vacuolation 1+ Polychromasia 1+ Poikilocytosis Present PT 12.4 H (9.0-12.0) Seconds INR 1.1 (0.9-1.1) APTT 30 (21-31) Seconds PTT Ratio 1.1 VBG pH 7.41 (7.36-7.41) VBG pCO2 52 H (38-50) mmHg VBG pO2 66 mmHg VBG HCO3 33 mmol/L VBG O2 Saturation 93.3 % VBG Base Excess 7.2 mEq/L Sodium 138 (136-145) mmol/L Potassium 3.8 (3.5-5.1) mmol/L Chloride 97 L (98-107) mmol/L Carbon Dioxide 34 H (21-32) mmol/L Anion Gap 7 (3-11) BUN 17 (6-23) mg/dl Creatinine 1.03 (0.6-1.2) mg/dl Est Cr Clr Drug Dosing Not Reportable Est GFR ( Amer) 63.3 ml/min Est GFR (Non-Af Amer) 54.6 ml/min BUN/Creatinine Ratio 16.5 (10-20) Glucose 283 H (70-99(Fasting)) mg/dl POC Glucose (70-99) mg/dl Lactate 1.3 (0.4-2.0) mmol/L Calcium 9.2 (8.6-10.3) mg/dl Magnesium 1.6 L (1.7-2.4) mg/dl Iron (35-150) mcg/dl TIBC (250-450) mcg/dl Unsaturated IBC (155-355) mcg/dl Transferrin % Sat (15-50) % Ferritin (8-388) ng/ml Total Bilirubin 0.4 (0.2-1.0) mg/dl Direct Bilirubin 0.1 (0-0.2) mg/dl AST 11 L (13-39) U/L ALT 12 (7-52) U/L Alkaline Phosphatase 72 (34-104) U/L Troponin I High Sens 14.2 H (0-14) pg/ml B-Natriuretic Peptide (0-100) pg/ml Total Protein 6.5 (6.0-8.3) gm/dl Albumin 3.5 (3.4-5.0) gm/dl Procalcitonin 0.20 (0-0.5) ng/ml Urine Color Yellow Urine Appearance Clear (Clear) Urine pH >= 9.0 H (4.5-7.5) Ur Specific Bison 1.022 (1.000-1.030) Urine Protein 4+ H (Negative) Urine Glucose (UA) 1+ H (Negative) Urine Ketones 2+ H (Negative) Urine Blood Negative (Negative) Urine Nitrite Negative (Negative) Urine Bilirubin Negative (Negative) Urine Urobilinogen Negative (Negative) Ur Leukocyte Esterase Negative (Negative) Urine WBC (Auto) 10-30 H (0-5) /hpf Urine RBC (Auto) 10-30 H (0-4) /hpf U Hyaline Cast (Auto) 1-5 (0-5) /lpf U Epithel Cells (Auto) 5-10 H (0-5) /lpf Urine Bacteria (Auto) 2+ H (Negative) Ur Renal Epithelial Cell Not Reportable Diagnostic Findings Cervical Spine CT 11/21/23 06:47 CT SCAN OF THE CERVICAL SPINE CLINICAL HISTORY: Fall. COMPARISON STUDY: CT of the cervical spine dated 05/30/2021. TECHNIQUE: CT scan of the cervical spine is performed from the skull base to the upper thoracic spine. Images are reviewed in the axial, sagittal, and coronal planes. IV contrast was not administered for this examination. A dose lowering technique was utilized adhering to the principles of ALARA. FINDINGS: Skeletal structures: The skeletal structures are osteopenic. There is no evidence of fracture or subluxation involving the cervical spine. Vertebral body height and alignment are maintained. Anterior osteophytes are seen throughout. There is mild straightening of the cervical lordosis. The odontoid process and lateral masses are intact. The atlantoaxial articulation is preserved noting advanced productive degenerative change. The spinous processes appear intact. There is moderate multilevel cervical spondylosis. Uncovertebral and facet arthropathy contribute to neural foraminal stenosis at several levels. Intervertebral discs: There is minimal degenerative disc space narrowing. Central canal: Grossly patent. Soft tissues: The prevertebral and paraspinous soft tissues are within normal limits. There is atherosclerotic calcification of the carotid bulbs. Calvarium: The visualized calvarium at the skull base appears intact. Brain parenchyma: Partially visualized brain parenchyma at the skull base is within normal limits. Sinuses and mastoids: Mucosal thickening is noted in the right sphenoid sinus. There are bilateral mastoid effusions. Lung apices: Emphysematous change is noted at the lung apices. Apical lung parenchyma is otherwise clear as imaged. IMPRESSION: 1. There is no evidence of fracture or subluxation involving the cervical spine. 2. Osteopenia and spondylotic change as above. 3. Emphysema. ACT 112: Negative or not required by law. Electronically signed by: Koby Wallace M.D. 11/21/2023 10:45 AM Foot X-Ray 11/21/23 06:47 RIGHT FOOT 3 VIEWS CLINICAL HISTORY: Fall. FINDINGS: 3 views of the right foot are obtained. No prior studies are available for comparison at the time of dictation. The skeletal structures are osteopenic. No fracture is seen. There are large dorsal and plantar heel spurs. Degenerative spurring is seen along the dorsal aspect of the tarsal bones. Soft tissue edema is noted along the dorsum of the foot. IMPRESSION: 1. Soft tissue swelling with no radiographic evidence of acute fracture. 2. Large heel spurs. Electronically signed by: Koby Wallace M.D. 11/21/2023 7:[address] 11/21/23 06:47 CT head/brain wo con CLINICAL HISTORY: altered Technique: Contiguous axial CT images of the head were acquired from the base of the skull to the vertex without intravenous contrast administration. Images were viewed in brain, subdural and bone windows. Automated dose lowering techniques and/or adjustment according to patient size were utilized for this exam. Comparison: Comparison is made to CT head 09/08/2020 Findings: Areas of decreased attenuation are present in the periventricular and subcortical white matter bilaterally consistent with small vessel ischemic disease. Generalized cerebral atrophy with commensurate enlargement of the ventricles, sulci, and cisterns is also present. There is no acute intracranial hemorrhage or evidence of acute territorial infarction. No shift of the midline structures, mass effect, or extra-axial abnormalities are shown. Atherosclerotic calcifications are present in the intracranial segments of the internal carotid arteries. Imaged portions of the paranasal sinuses and mastoid air cells are clear. The orbits appear normal. There are no acute fractures of the calvaria or scalp swelling. Impression: No acute intracranial hemorrhage, no evidence of acute territorial infarction or other acute intracranial disease process. ACT 112: Negative or not required by law. Electronically signed by: Tushar Souza M.D. 11/21/2023 10:32 AM Chest X-Ray 11/21/23 06:48 XR chest 1V portable HISTORY: 73 years-old Female Sepsis acute sepsis COMPARISON: 09/21/2023 TECHNIQUE: AP view of the chest FINDINGS: Cardiomediastinal and hilar silhouettes are unchanged. Emphysema with hyperinflation and chronic interstitial coarsening. Mildly progressed patchy subsegmental right basilar opacities. Degenerative changes of the shoulders and spine. IMPRESSION: 1. Mildly progressed subsegmental right basilar opacities which may represent atelectasis/scarring versus superimposed pneumonitis. 2. Emphysema. ACT 112: Negative or not required by law. The above report was generated using voice recognition software. It may contain grammatical, syntax or spelling errors. Electronically signed by: Israel Sharma M.D. 11/21/2023 7:34 AM Supervising Physician Co-Signing Physician Notes The patient was seen by me. The chart was reviewed. Case discussed with [place] Haley. Agree with assessment and plan PG Care Time/CCT Total # of Minutes Spent Total Time Spent with Patient: Total time spent is greater than 50% in coordination of care (as documented) at patient's floor/unit and/or counseling patient: Coding Level of Care Code 09190 INT INP/OBS CARE 3/75MIN Diagnoses Metabolic encephalopathy G93.41 Sepsis A41.9 Acute on chronic respiratory failure with hypoxia and hypercapnia J96.21; J96.22 Acute exacerbation of chronic obstructive pulmonary disease J44.1 Afib I48.91 UTI (urinary tract infection) N39.0 Diabetes type 2, uncontrolled E11.65 Glycemic state: with hyperglycemia Hypertension I10 Hypertension type: unspecified Anemia D64.9 Anemia type: unspecified type (7) Diabetes type 2, uncontrolled Glycemic state: with hyperglycemia Qualified Code(s): E11.65 - Type 2 diabetes mellitus with hyperglycemia (8) Hypertension Hypertension type: unspecified Qualified Code(s): I10 - Essential (primary) hypertension (9) Anemia Anemia type: unspecified type Qualified Code(s): D64.9 - Anemia, unspecified
--- NOTE | 2023-11-21 10:35 | CT Scan Report ---
CT head/brain wo con CLINICAL HISTORY: altered Technique: Contiguous axial CT images of the head were acquired from the base of the skull to the zachary erika without intravenous contrast administration. Images were viewed in brain, subdural and bone [facility] . Automated dose lowering techniques and/or adjustment according to patient size were utilized for this exam. Comparison: Comparison is made to CT head 09/08/2020 Findings: Areas of decreased attenuation are present in the periventricular and subcortical white matter bilate rally consistent with small vessel ischemic disease. Generalized cerebral atrophy with commensurate e nlargement of the ventricles, sulci, and cisterns is also present. There is no acute intracranial hem orrhage or evidence of acute territorial infarction. No shift of the midline structures, mass effect, or extra-axial abnormalities are shown. Atherosclerotic calcifications are present in the intracran ial segments of the internal carotid arteries. Imaged portions of the paranasal sinuses and mastoid air cells are clear. The orbits appear normal. There are no acute fractures of the calvaria or scalp swelling. Impression: No acute intracranial hemorrhage, no evidence of acute territorial infarction or other acute intracra nial disease process. ACT 112: Negative or not required by law. Electronically signed by: Tushar Souza M.D. 11/21/2023 10:32 AM
--- NOTE | 2023-11-21 10:47 | CT Scan Report ---
CT SCAN OF THE CERVICAL SPINE CLINICAL HISTORY: Fall. COMPARISON STUDY: CT of the cervical spine dated 05/30/2021. TECHNIQUE: CT scan of the cervical spine is performed from the skull base to the upper thoracic spine . Images are reviewed in the axial, sagittal, and coronal planes. IV contrast was not administered fo r this examination. A dose lowering technique was utilized adhering to the principles of ALARA. FINDINGS: Skeletal structures: The skeletal structures are osteopenic. There is no evidence of fracture or subl uxation involving the cervical spine. Vertebral body height and alignment are maintained. Anterior os teophytes are seen throughout. There is mild straightening of the cervical lordosis. The odontoid pro cess and lateral masses are intact. The atlantoaxial articulation is preserved noting advanced produc tive degenerative change. The spinous processes appear intact. There is moderate multilevel cervical spondylosis. Uncovertebral and facet arthropathy contribute to neural foraminal stenosis at several l evels. Intervertebral discs: There is minimal degenerative disc space narrowing. Central canal: Grossly patent. Soft tissues: The prevertebral and paraspinous soft tissues are within normal limits. There is athero sclerotic calcification of the carotid bulbs. Calvarium: The visualized calvarium at the skull base appears intact. Brain parenchyma: Partially visualized brain parenchyma at the skull base is within normal limits. Sinuses and mastoids: Mucosal thickening is noted in the right sphenoid sinus. There are bilateral ma stoid effusions. Lung apices: Emphysematous change is noted at the lung apices. Apical lung parenchyma is otherwise cl ear as imaged. IMPRESSION: 1. There is no evidence of fracture or subluxation involving the cervical spine. 2. Osteopenia and spondylotic change as above. 3. Emphysema. ACT 112: Negative or not required by law. Electronically signed by: Koby Wallace M.D. 11/21/2023 10:45 AM
--- NOTE | 2023-11-21 11:12 | Electrocardiogram Report ---
Test Reason : Blood Pressure : / mmHG Vent. Rate : 132 BPM Atrial Rate : 132 BPM P-R Int : 136 ms QRS Dur : 076 ms QT Int : 340 ms P-R-T Axes : 073 003 075 degrees QTc Int : 503 ms Sinus tachycardia with frequent PACs Nonspecific T wave abnormality Abnormal ECG When compared with ECG of 21-SEP-2023 19:11, Criteria for Inferior infarct are no longer Present ST now depressed in Anterior leads T wave amplitude has increased in Inferior leads Nonspecific T wave abnormality no longer evident in Lateral leads Confirmed by Lion Diego ([id number]) on 11/21/2023 11:11:51 AM Referred By: Confirmed By:Yvan Diego
--- NOTE | 2023-11-21 11:13 | Electrocardiogram Report ---
Test Reason : Blood Pressure : / mmHG Vent. Rate : 111 BPM Atrial Rate : 111 BPM P-R Int : 154 ms QRS Dur : 080 ms QT Int : 344 ms P-R-T Axes : 067 016 071 degrees QTc Int : 467 ms Sinus tachycardia Otherwise normal ECG When compared with ECG of 21-NOV-2023 06:33, (unconfirmed) Premature ventricular complexes are no longer Present Confirmed by Lion Diego ([id number]) on 11/21/2023 11:12:50 AM Referred By: Confirmed By:Yvan Diego
[2023-11-21] MEDS ORDERED: CARBOHYDRATES FOR HYPOGLYCEMIA PO PRN (11:54)
[2023-11-21] MEDS ORDERED: GLUCOSE 40% GEL 15 GM TUBE PO PRN (11:54)
[2023-11-21] MEDS ORDERED: GLUCAGON FOR INJ 1 MG VIAL SQ PRN (11:54)
[2023-11-21] MEDS ORDERED: DEXTROSE 50% 50 ML SYRINGE IV PRN (11:54)
[2023-11-21] MEDS ORDERED: GLUCOSE 10 TAB/TUBE PO PRN (11:54)
[2023-11-21] MEDS ORDERED: MAGNESIUM SULFATE / D5W 1 GM/100 ML BAG IV ONE (11:54)
[2023-11-21] MEDS ORDERED: ACETAMINOPHEN 325 MG TAB PO PRN (11:54)
[2023-11-21] MEDS ORDERED: LANTUS PER UNIT CHARGE SQ ONE (12:11)
[2023-11-21] MEDS ORDERED: DOXYCYCLINE HYCLATE 100 MG in D5W MINI-B (NOW) IV ONE (12:45)
[2023-11-21] MEDS: INSULIN ASPART PER UNIT CHARGE SC SCH ×3 (12:56→20:18)
[2023-11-21] MEDS: dilTIAZem HCL 180 MG CAPCR PO SCH (13:07)
[2023-11-21] MEDS: ASPIRIN 81 MG ECTAB PO SCH (13:07)
[2023-11-21] MEDS: LOSARTAN POTASSIUM 50 MG TAB PO SCH (13:07)
[2023-11-21 13:36] LABS: Ferritin 43.4 ng/ml (8-388)
[2023-11-21] MEDS ORDERED: IRON SUCROSE 300 MG in SODIUM CHLORIDE 0.9% 250 ML IV ONE (14:45)
[2023-11-21] MEDS: METOPROLOL SUCC 50MG EXT REL TAB PO SCH (20:00)
[2023-11-21] MEDS: APIXABAN 5 MG TABLET PO SCH (20:00)
[2023-11-21] MEDS: CEFEPIME 2,000 MG in SYRINGE 0 ML IV SCH (20:19)
[2023-11-22] MEDS: DOXYCYCLINE HYCLATE 100 MG in D5W MINI-B 100 ML (Q12H) IV SCH ×3 (01:10→23:58)
[2023-11-22] MEDS: ACETAMINOPHEN 1,000 MG/100 ML VIAL IV PRN ×2 (02:27→20:20)
[2023-11-22] MEDS: FOLIC ACID 1 MG TAB PO SCH (07:41)
[2023-11-22] MEDS: FUROSEMIDE 20 MG TAB PO SCH (07:41)
[2023-11-22] MEDS: dilTIAZem HCL 180 MG CAPCR PO SCH (07:41)
[2023-11-22] MEDS: UMECLIDINIUM BROMIDE 62.5MCG/BLISTER 7 PUFFS/INHALER INH SCH (07:42)
[2023-11-22] MEDS: FLUTICASONE/VILANTEROL 100/25MCG 14 PUFFS/INHALER INH SCH (07:43)
[2023-11-22] MEDS: ASPIRIN 81 MG ECTAB PO SCH (07:44)
[2023-11-22] MEDS: buPROPion XL 150 MG TABCR PO SCH (07:44)
[2023-11-22] MEDS: PANTOprazole 40 MG TAB PO SCH (07:45)
[2023-11-22] MEDS: APIXABAN 5 MG TABLET PO SCH ×2 (07:45→20:20)
[2023-11-22] MEDS: LOSARTAN POTASSIUM 50 MG TAB PO SCH (07:45)
[2023-11-22] MEDS: METOPROLOL SUCC 50MG EXT REL TAB PO SCH ×2 (07:46→20:27)
[2023-11-22] MEDS: INSULIN ASPART PER UNIT CHARGE SC SCH ×4 (07:55→20:21)
[2023-11-22] MEDS: CEFEPIME 2,000 MG in SYRINGE 0 ML IV SCH ×2 (07:58→19:42)
[2023-11-22 08:02] LABS: Mean Corpuscular Hemoglobin 25.9 pg (25.0-34.0); Mean Corpuscular Hgb Conc 29.6 g/dL (32.0-36.0); Mean Corpuscular Volume 87.4 fL (80.0-100.0); Mean Platelet Volume 10.4 fL (9.4-12.4); Platelet Count 323 K/uL (130-400); RDW Coefficient of Variation 17.6 % (11.5-14.5); RDW Standard Deviation 55.4 fL (36.4-46.3); Red Blood Count 3.09 M/uL (4.20-5.40); White Blood Count 13.14 K/ul (4.8-10.8)
[2023-11-22 08:08] LABS: Estimated Average Glucose 209 mg/dl; Hemoglobin A1C 8.9 % (4.5-5.6)
[2023-11-22 08:16] LABS: Albumin Globulin Ratio 1.1 (0.9-2); Albumin Level 2.9 gm/dl (3.4-5.0); BUN Creatinine Ratio 21.2 (10-20); Bilirubin,Total 0.3 mg/dl (0.2-1.0); Calcium 8.7 mg/dl (8.6-10.3); Creatinine Clr Calc Pharmacy 54.8 ml/min; Est GFR (African American) 79.9 ml/min; Est GFR (Non-African American) 68.9 ml/min; Globulin 2.7 gm/dl (2.5-4.0); Magnesium 1.9 mg/dl (1.7-2.4); Potassium 3.6 mmol/L (3.5-5.1); Total Protein 5.6 gm/dl (6.0-8.3)
[2023-11-22 08:21] LABS: Acanthocytes 1+; Basophils # (auto) 0.05 K/uL (0.00-0.20); Basophils % (auto) 0.4 %; Eosinophils # (auto) 0.12 K/uL (0.00-0.50); Eosinophils % (auto) 0.9 %; Immature Granulocytes # (auto) 0.06 K/uL (0.01-0.20); Immature Granulocytes % (auto) 0.5 %; Lymphocytes # (auto) 0.51 K/uL (1.20-3.40); Lymphocytes % (auto) 3.9 %; Monocytes # (auto) 0.46 K/uL (0.11-0.59); Monocytes % (auto) 3.5 %; Neutrophils # (auto) 11.94 K/uL (1.40-6.50); Neutrophils % (auto) 90.8 %; Polychromasia 2+
[2023-11-22 08:31] LABS: Thyroid Stimulating Hormone 0.469 uIu/ml (0.300-4.500)
[2023-11-22 08:42] LABS: Folate (Folic Acid),Ser orPlas > 22.30 ng/ml (>5.38)
[2023-11-22] MEDS ORDERED: PHARMACY GLYCEMIC MGMT CONSULT PRN (08:42)
[2023-11-22 08:43] LABS: Vitamin B12 107 pg/ml (180-914)
--- NOTE | 2023-11-22 08:44 | Hospitalist Progress Note ---
Date of Service November 22, 2023 Assessment & Plan (1) Metabolic encephalopathy: Plan: Suspect sepsis 2nd to possible pneumonia vs UTI vs other. End stage COPD On BiPAP in ER, breathing comfortable. DOES NOT WANT INTUBATED, confirmed wishes with . Ok for meds/abx/fluids, but no intubation. Prior discussion w/ home on hospice but wasn't ready and again, reports patient was cooking turkey/ham this week, casserole last evening and was doing fairly well in the interim since last admission. They recently filled rx for nebulizer treatments at home Admit PCU Continue BiPAP for now, VBG on admit w/ normal pH 7.41, pCO2 52 IVF: 1.5L IVF ordered for sepsis/dehydration on exam/poor PO intake since arrival Lactic wnl, Procal 0.20 Mag 1.6, 1gm IV ordered, repeat 1gm IV abx: Cefepime, will continue Cefepime/Doxy for PNA coverage. Check MRSA nares Urine/blood cultures pending -- f/u EKG obtained w/ elevated HR, reports likely not gotten her meds-> metoprolol 50mg x 1 NOW, schedule 50mg BID. Cardizem to resume NOW CT head NEGATIVE--> Eliquis 5mg BID resumed, aspirin 81mg daily-- > Keep mag/K replete F/u cxs, labs in AM. PT/OT consults 11/22 IMPROVED, more awake/alert, talkative. Suspect 2nd to sepsis from infection/CO2 retention/respiratory failure Continues on Cefepime/Doxy for pulmonary coverage. MRSA nares negative. WBC downtrending, 18.2k--> 13.4k Temp 38.4C AM 11/21 and has been afebrile today Blood cultures NGTD at present. Urine culture with probable enterococcus on preliminary -- follow final culture/abx change as needed +Pulm consult, ?BiPAP (had previously declined) but has been using. -She was requesting her home oxycodone for chronic back pain. Discussed w/ pain meds/opiates and her chronic resp failure ideally continued NIPPV. ABG w/ improvement in CO2 retention w/ BiPAP use. Consult pending but to continue abx coverage for now, also checked RSV/Flu/Influenza and this was negative Continue nebs/inhalers, pulmonary toilet. -Incentive spirometer added On 4.5L NC (baseline 4L) -- titrate as able to maintain sats. Suspect at least BiPAP HS beneficial to prevent worsened CO2 retention. Tx anemia as below (2) Sepsis: Plan: suspected given leukocytosis, fever 38C, tachycardia (however suspect due to missed meds) on admission possible pulmonary (R sided opacity) vs urine source CXR w/ mildly progressed subsegmental R basilar opacities, atelectasis/scarring vs superimposed pneumonitis UA w/ 2+ bacteria, WBC>epi. Cx w/ probable enterococcus and will continue abx for now given WBC trending down on repeat and has been afebrile but may need to adjust pending final cultures (3) Acute on chronic respiratory failure with hypoxia and hypercapnia: Plan: VBG w/ elevated CO2 52 Chronic COPD, severe. prior admits w/ hospice discussion but unready. Appears baseline on 4L NC prior pulm note 2019 suggesting obesity hypoventilation syndrome, recs for noninvasive ventilation but patient was adamant against at that time. - was on BiPAP on admission, titrated to baseline 4L and asked to be placed back on last evening - pulm consulted, ?[facility]ang[facility] for chronic resp failure. apprecaite recs/assistance Continue abx w/ Cefepime/Doxy should cover for any exacerbation/atypical coverage Of note, also on furosemide 20mg daily, will hold off for now until PO intake improved. BNP 308 but doesn't appear significantly volume overloaded and will hold off any PO lasix for now but also no furthr IVF Flu/rsv/covid testing negative on repeat (biofire negative on admission) ABG this AM w/ improvement in CO2--> hopefully able to be agreeable and can arrange BiPAP at dc (4) Anemia: Plan: Hgb appearing around baseline compared to values in August and before Checked iron studies for completeness Iron LOW 10, transferrin % sat 3, ferritin only 43 Venofer 300mg IV x 1, repeating dose daily while inpatient x 3 days Checked B12/folate w/ AM labs given normocytic --> B12 LOW 107 --> IM x 3 doses and then would continue daily Hgb 8.0 on admission but was given 1.5L IVF for sepsis on admission and suspect some aspect of dilution fecal occult for completeness if able to collect TSH wnl CBC in AM (5) Afib: Plan: EKG w/ sinus tachy on admit. Given her metoprolol and Cardizem as reported possible she forgot these CT head negative Improvement in HR w/ meds and abx for infection as above Eliquis continued Keep K/mag replete (mag 1.6, now 1.9 and will order 1gm IV mag and 20meq KCL and monitor labs in AM) Has been NSR 70-90s w/ PVC on telemetry and will continue to monitor on telemetry (6) UTI (urinary tract infection): Plan: possible, abx as above f/u final urine cx (7) Diabetes type 2, uncontrolled: Plan: Last A1c 10.0, much worse than priors but repeat 8.9 On metformin 1gm BID, glipizide 5mg daily at baseline, held while inpatient Given glargine x 1 on admission for elevated BSGs (?recent steroid taper) Hx abdominal discomfort/possible chronic abdominal pains when I had her in February 2022. Prior notes [facility] arrangement [facility] despite reports of issues w/ dysphagia at baseline (8) Hypertension: Plan: BP 167/104 on admission. does note she forgets medications sometimes at home -- home meds w/ losartan 50mg, metoprolol 50mg BID, Cardizem 180 mg daily Given metoprolol NOW x1, resumed Cardizem on admission as missed dose Continues on losartan, metoprolol, Cardizem Holding off Lasix for now, BNP added to labs and elevated but as above will hold off diuretics for now but may benefit from one time dose BP 160/73 at present (9) Acute exacerbation of chronic obstructive pulmonary disease: Plan continued inpatient stay, IV abx, BiPAP Admission and Anticipated Discharge Date Admission Date: November 21, 2023 Supervising Physician Co-Signing Physician Notes The patient was not seen by me. The chart was reviewed. Case discussed with [place] Haley. Agree with assessment and plan Subjective Eval this afternoon. Much more awake/alert today w/ use of BiPAP. Previously had declined but reports not having issue with it overnight. Breathing stable on 4.5L at present, typically on 4L at baseline. She reports no one will give her pain medications for her chronic back pain. She notes she is unable to sleep without it. Discussed not ideal to be taking opiates for pain/sleep with her significant respiratory failure at baseline, especially if she isn't utilizing noninvasive ventilator. She is requesting a nebulizer treatment, will order now. She reports she has NOT yet been seen by pulmonology. Physical Exam Physical Exam: General: improved mentation, more awake/alert, talkative. knows in [facility], october,, doesn't remember events of the fall prior to admission, complaints of back discomfort (chronic issue) Heent: head normocephalic, pupils equal/reactive, mm slightly dry resp: not tachypneic, able to speak in complete sentences, coarse breath sounds bilaterally/rhonchi faint wheezing throughout, slightly diminished in the bases, on 4.5L NC CV: RRR,+systolic murmur, no pitting edema/calf tenderness GI: +BS, slight distension but nontender, no guarding/rigidity : pederson draining althea colored urine MSK/Neuro: nonfocal but chronic lower back pain, no obvious bony step off Psych: AO to person/place/time, not events prior to admission Results & Data Results & Data Vital Signs (Past 12 Hours) Vital Signs Temp Pulse Pulse Resp BP Pulse Ox Pulse Ox 11/22/23 08:00 79 11/22/23 08:00 11/22/23 07:14 37.0 C 75 17 138/56 L 96 11/22/23 06:05 93 11/22/23 04:55 66 27 H 94 11/22/23 03:01 36.6 C 77 32 H 149/60 H 94 11/22/23 00:05 91 H 36 H 95 11/21/23 23:08 85 11/21/23 23:00 37.0 C 98 H 33 H 180/85 H 97 11/21/23 21:12 38 H 92 O2 Del Method O2 Del Method O2 Flow Rate O2 Flow Rate FiO2 11/22/23 08:00 11/22/23 08:00 Nasal Cannula 4 11/22/23 07:14 Nasal Cannula 4 11/22/23 06:05 Nasal Cannula 4 11/22/23 04:55 35 11/22/23 03:01 BiPAP 11/22/23 00:05 35 11/21/23 23:08 11/21/23 23:00 BiPAP 11/21/23 21:12 35 Laboratory Results 11/22/23 11/22/23 11/22/23 Range/Units 11:59 11:39 11:21 WBC (4.8-10.8) K/ul RBC (4.20-5.40) M/uL Hgb (12.0-16.0) g/dl Hct (37.0-47.0) % MCV (80.0-100.0) fL MCH (25.0-34.0) pg MCHC (32.0-36.0) g/dL RDW Std Deviation (36.4-46.3) fL RDW Coeff of Dorcas (11.5-14.5) % Plt Count (130-400) K/uL MPV (9.4-12.4) fL Immature Gran % (Auto) % Neut % (Auto) % Lymph % (Auto) % [place] % (Auto) % Eos % (Auto) % Baso % (Auto) % Neut # (Auto) (1.40-6.50) K/uL Lymph # (Auto) (1.20-3.40) K/uL [place] # (Auto) (0.11-0.59) K/uL Eos # (Auto) (0.00-0.50) K/uL Baso # (Auto) (0.00-0.20) K/uL Immature Gran # (Auto) (0.01-0.20) K/uL Polychromasia Acanthocytes (Spur) ABG pH 7.42 Cancelled ABG pCO2 48 H Cancelled ABG pO2 67 L Cancelled ABG HCO3 31 H Cancelled ABG O2 Saturation 94.1 Cancelled ABG Base Excess 5.9 H Cancelled Presley Test Pos Cancelled Barometric Pressure Cancelled Oxygen Given 4L Cancelled Sodium (136-145) mmol/L Potassium (3.5-5.1) mmol/L Chloride (98-107) mmol/L Carbon Dioxide (21-32) mmol/L Anion Gap (3-11) BUN (6-23) mg/dl Creatinine (0.6-1.2) mg/dl Est Cr Clr Drug Dosing ml/min Est GFR ( Amer) ml/min Est GFR (Non-Af Amer) ml/min BUN/Creatinine Ratio (10-20) Glucose (70-99(Fasting)) mg/dl POC Glucose 175 H (70-99) mg/dl Estimat Average Glucose mg/dl Hemoglobin A1c (4.5-5.6) % Calcium (8.6-10.3) mg/dl Magnesium (1.7-2.4) mg/dl Total Bilirubin (0.2-1.0) mg/dl AST (13-39) U/L ALT (7-52) U/L Alkaline Phosphatase (34-104) U/L Total Protein (6.0-8.3) gm/dl Albumin (3.4-5.0) gm/dl Globulin (2.5-4.0) gm/dl Albumin/Globulin Ratio (0.9-2) Vitamin B12 (180-914) pg/ml Folate (>5.38) ng/ml TSH (0.300-4.500) uIu/ml Nasal Screen MRSA (PCR) (Negative) SARS-CoV-2 (PCR) (Negative) Influenza Type A (PCR) (Neg) Influenza Type B (PCR) (Neg) RSV (RT-PCR) (Neg) 11/22/23 11/22/23 11/22/23 Range/Units 10:00 07:22 07:14 WBC 13.14 H (4.8-10.8) K/ul RBC 3.09 L (4.20-5.40) M/uL Hgb 8.0 L (12.0-16.0) g/dl Hct 27.0 L (37.0-47.0) % MCV 87.4 (80.0-100.0) fL MCH 25.9 (25.0-34.0) pg MCHC 29.6 L (32.0-36.0) g/dL RDW Std Deviation 55.4 H (36.4-46.3) fL RDW Coeff of Dorcas 17.6 H (11.5-14.5) % Plt Count 323 (130-400) K/uL MPV 10.4 (9.4-12.4) fL Immature Gran % (Auto) 0.5 % Neut % (Auto) 90.8 % Lymph % (Auto) 3.9 % [place] % (Auto) 3.5 % Eos % (Auto) 0.9 % Baso % (Auto) 0.4 % Neut # (Auto) 11.94 H (1.40-6.50) K/uL Lymph # (Auto) 0.51 L (1.20-3.40) K/uL [place] # (Auto) 0.46 (0.11-0.59) K/uL Eos # (Auto) 0.12 (0.00-0.50) K/uL Baso # (Auto) 0.05 (0.00-0.20) K/uL Immature Gran # (Auto) 0.06 (0.01-0.20) K/uL Polychromasia 2+ Acanthocytes (Spur) 1+ ABG pH ABG pCO2 ABG pO2 ABG HCO3 ABG O2 Saturation ABG Base Excess Presley Test Barometric Pressure Oxygen Given Sodium 139 (136-145) mmol/L Potassium 3.6 (3.5-5.1) mmol/L Chloride 103 (98-107) mmol/L Carbon Dioxide 31 (21-32) mmol/L Anion Gap 5 (3-11) BUN 18 (6-23) mg/dl Creatinine 0.85 (0.6-1.2) mg/dl Est Cr Clr Drug Dosing 54.8 ml/min Est GFR ( Amer) 79.9 ml/min Est GFR (Non-Af Amer) 68.9 ml/min BUN/Creatinine Ratio 21.2 H (10-20) Glucose 192 H (70-99(Fasting)) mg/dl POC Glucose 236 H (70-99) mg/dl Estimat Average Glucose 209 mg/dl Hemoglobin A1c 8.9 H (4.5-5.6) % Calcium 8.7 (8.6-10.3) mg/dl Magnesium 1.9 (1.7-2.4) mg/dl Total Bilirubin 0.3 (0.2-1.0) mg/dl AST 11 L (13-39) U/L ALT 10 (7-52) U/L Alkaline Phosphatase 73 (34-104) U/L Total Protein 5.6 L (6.0-8.3) gm/dl Albumin 2.9 L (3.4-5.0) gm/dl Globulin 2.7 (2.5-4.0) gm/dl Albumin/Globulin Ratio 1.1 (0.9-2) Vitamin B12 107 L (180-914) pg/ml Folate > 22.30 (>5.38) ng/ml TSH 0.469 (0.300-4.500) uIu/ml Nasal Screen MRSA (PCR) (Negative) SARS-CoV-2 (PCR) NEGATIVE (Negative) Influenza Type A (PCR) Negative (Neg) Influenza Type B (PCR) Negative (Neg) RSV (RT-PCR) Negative (Neg) 11/21/23 11/21/23 11/21/23 Range/Units Unknown 20:15 16:31 WBC (4.8-10.8) K/ul RBC (4.20-5.40) M/uL Hgb (12.0-16.0) g/dl Hct (37.0-47.0) % MCV (80.0-100.0) fL MCH (25.0-34.0) pg MCHC (32.0-36.0) g/dL RDW Std Deviation (36.4-46.3) fL RDW Coeff of Dorcas (11.5-14.5) % Plt Count (130-400) K/uL MPV (9.4-12.4) fL Immature Gran % (Auto) % Neut % (Auto) % Lymph % (Auto) % [place] % (Auto) % Eos % (Auto) % Baso % (Auto) % Neut # (Auto) (1.40-6.50) K/uL Lymph # (Auto) (1.20-3.40) K/uL [place] # (Auto) (0.11-0.59) K/uL Eos # (Auto) (0.00-0.50) K/uL Baso # (Auto) (0.00-0.20) K/uL Immature Gran # (Auto) (0.01-0.20) K/uL Polychromasia Acanthocytes (Spur) ABG pH ABG pCO2 ABG pO2 ABG HCO3 ABG O2 Saturation ABG Base Excess Presley Test Barometric Pressure Oxygen Given Sodium (136-145) mmol/L Potassium (3.5-5.1) mmol/L Chloride (98-107) mmol/L Carbon Dioxide (21-32) mmol/L Anion Gap (3-11) BUN (6-23) mg/dl Creatinine (0.6-1.2) mg/dl Est Cr Clr Drug Dosing ml/min Est GFR ( Amer) ml/min Est GFR (Non-Af Amer) ml/min BUN/Creatinine Ratio (10-20) Glucose (70-99(Fasting)) mg/dl POC Glucose 179 H 224 H (70-99) mg/dl Estimat Average Glucose mg/dl Hemoglobin A1c (4.5-5.6) % Calcium (8.6-10.3) mg/dl Magnesium (1.7-2.4) mg/dl Total Bilirubin (0.2-1.0) mg/dl AST (13-39) U/L ALT (7-52) U/L Alkaline Phosphatase (34-104) U/L Total Protein (6.0-8.3) gm/dl Albumin (3.4-5.0) gm/dl Globulin (2.5-4.0) gm/dl Albumin/Globulin Ratio (0.9-2) Vitamin B12 (180-914) pg/ml Folate (>5.38) ng/ml TSH (0.300-4.500) uIu/ml Nasal Screen MRSA (PCR) Negative (Negative) SARS-CoV-2 (PCR) (Negative) Influenza Type A (PCR) (Neg) Influenza Type B (PCR) (Neg) RSV (RT-PCR) (Neg) Diagnostic Findings Cervical Spine CT 11/21/23 06:47 CT SCAN OF THE CERVICAL SPINE CLINICAL HISTORY: Fall. COMPARISON STUDY: CT of the cervical spine dated 05/30/2021. TECHNIQUE: CT scan of the cervical spine is performed from the skull base to the upper thoracic spine. Images are reviewed in the axial, sagittal, and coronal planes. IV contrast was not administered for this examination. A dose lowering technique was utilized adhering to the principles of ALARA. FINDINGS: Skeletal structures: The skeletal structures are osteopenic. There is no evidence of fracture or subluxation involving the cervical spine. Vertebral body height and alignment are maintained. Anterior osteophytes are seen throughout. There is mild straightening of the cervical lordosis. The odontoid process and lateral masses are intact. The atlantoaxial articulation is preserved noting advanced productive degenerative change. The spinous processes appear intact. There is moderate multilevel cervical spondylosis. Uncovertebral and facet art hropathy contribute to neural foraminal stenosis at several levels. Intervertebral discs: There is minimal degenerative disc space narrowing. Central canal: Grossly patent. Soft tissues: The prevertebral and paraspinous soft tissues are within normal limits. There is atherosclerotic calcification of the carotid bulbs. Calvarium: The visualized calvarium at the skull base appears intact. Brain parenchyma: Partially visualized brain parenchyma at the skull base is within normal limits. Sinuses and mastoids: Mucosal thickening is noted in the right sphenoid sinus. There are bilateral mastoid effusions. Lung apices: Emphysematous change is noted at the lung apices. Apical lung parenchyma is otherwise clear as imaged. IMPRESSION: 1. There is no evidence of fracture or subluxation involving the cervical spine. 2. Osteopenia and spondylotic change as above. 3. Emphysema. ACT 112: Negative or not required by law. Electronically signed by: Koby Wallace M.D. 11/21/2023 10:[address] 11/21/23 06:47 CT head/brain wo con CLINICAL HISTORY: altered Technique: Contiguous axial CT images of the head were acquired from the base of the skull to the vertex without intravenous contrast administration. Images were viewed in brain, subdural and bone windows. Automated dose lowering techniques and/or adjustment according to patient size were utilized for this exam. Comparison: Comparison is made to CT head 09/08/2020 Findings: Areas of decreased attenuation are present in the periventricular and subcortical white matter bilaterally consistent with small vessel ischemic disease. Generalized cerebral atrophy with commensurate enlargement of the ventricles, sulci, and cisterns is also present. There is no acute intracranial hemorrhage or evidence of acute territorial infarction. No shift of the midline structures, mass effect, or extra-axial abnormalities are shown. Atherosclerotic calcifications are present in the intracranial segments of the internal carotid arteries. Imaged portions of the paranasal sinuses and mastoid air cells are clear. The orbits appear normal. There are no acute fractures of the calvaria or scalp swelling. Impression: No acute intracranial hemorrhage, no evidence of acute territorial infarction or other acute intracranial disease process. ACT 112: Negative or not required by law. Electronically signed by: Tushar Souza M.D. 11/21/2023 10:32 AM PG Care Time/CCT Total # of Minutes Spent Total Time Spent with Patient: Total time spent is greater than 50% in coordination of care (as documented) at patient's floor/unit and/or counseling patient: Coding Level of Care Code 03482 SUB INP/OBS CARE 50MIN Diagnoses Metabolic encephalopathy G93.41 Sepsis A41.9 Acute on chronic respiratory failure with hypoxia and hypercapnia J96.21; J96.22 Anemia D64.9 Anemia type: unspecified type Afib I48.91 UTI (urinary tract infection) N39.0 Diabetes type 2, uncontrolled E11.65 Glycemic state: with hyperglycemia Hypertension I10 Hypertension type: unspecified Acute exacerbation of chronic obstructive pulmonary disease J44.1 (4) Anemia Anemia type: unspecified type Qualified Code(s): D64.9 - Anemia, unspecified (7) Diabetes type 2, uncontrolled Glycemic state: with hyperglycemia Qualified Code(s): E11.65 - Type 2 diabetes mellitus with hyperglycemia (8) Hypertension Hypertension type: unspecified Qualified Code(s): I10 - Essential (primary) hypertension
[2023-11-22] MEDS ORDERED: NON-FORMULARY MEDICATION (Tiotropium-Olodaterol [Stiolto Respimat] 2.5-2.5 mcg/actuation m INH SCH (09:00)
[2023-11-22] MEDS: IRON SUCROSE 300 MG in SODIUM CHLORIDE 0.9% 250 ML IV SCH (09:35)
[2023-11-22] MEDS: CYANOCOBALAMIN 1000 MCG/ML VIAL IM SCH (09:35)
--- NOTE | 2023-11-22 09:53 | Pulmonary Consultation ---
Date of Consultation November 22, 2023 Assessment & Plan (1) Pneumonia: Laterality: right Lung location: lower lobe of lung Pneumonia type: due to unspecified organism Qualified Code(s): J18.9 - Pneumonia, unspecified organism (2) Acute respiratory distress: (3) Acute exacerbation of chronic obstructive pulmonary disease: (4) Current smoker: Plan PFT 01/17/2020 personally reviewed: Severe obstructive lung dysfunction, significant bronchodilator response, increased lung volume with air trapping FVC 1.96 L 72%, FEV1 0.94 L 48%, FEV1/FVC 47%, TLC 169%, RV/DLCO 188% Chest x-ray 11/21/2023 personally reviewed: Portable film, hyperinflated film, patchy opacity in the right lower lobe retrocardiac. ABG 11/22/2023: 7.42/48/67 on 4 L -- Severe COPD with emphysema Gold E On high-dose Symbicort and Stiolto at home Nasal MRSA negative Influenza A/B, RSV, COVID-19 all negative Continue with antibiotics for possible right lower lobe pneumonia --A-fib On apixaban --DNR/DNI Plan: Follow ABG from today Continue with antibiotics with atypical coverage Patient will benefit from an AVAPS machine at home but on talking to her she said she is not sure whether she will be using it If she changes her mind and if and only if she is willing to use it on a regular basis then AVAPS machine will be ordered for her Patient seems to be on Stiolto and Symbicort at home. In place of Stiolto would recommend Spiriva on discharge Pulmonary will continue to follow Case discussed with primary team Please note the above document was generated using voice recognition software. It may contain grammatical, syntax or spelling errors.Any formal questions or concerns about the content, text or information contained within the body of this dictation should be directly addressed to the provider for clarification. History of Present Illness Attending Physician: Timothy Richards MD History of Present Illness 73-year-old female presented to the hospital with complaints of shortness of breath Past medical history: COPD, hypertension, dyslipidemia, chronic hypoxic respiratory failure on 3 L oxygen at home, chronic low back pain, diabetes Pulmonary consulted for worsening shortness of breath At the time of examination patient was resting comfortably. She says she is feeling much better Her respiratory rate was in the mid teens. Denied any chest pain. Did complain of chest congestion and difficulty bringing up the phlegm Denies any headache. No dysuria, no diarrhea at home Did complain of subjective fever and chills before coming to the hospital No nausea or vomiting Fair appetite Dates that she is compliant with her inhalers at home Social history:> [id number] smoking history, currently smoking a pack a day Has cats and dogs at home Strong family history of lung cancer in father, mother as well as brother who are all smokers Allergies Allergy/AdvReac Type Severity Reaction Status Date / Time diflunisal AdvReac Intermediate HEART RACES Verified 09/21/23 18:00 Home Medications Medication Instructions Recorded Confirmed Type albuterol sulfate 90 mcg/actuation 2 puff inhalation Q6 PRN Shortness 08/28/20 09/21/23 History aerosol inhaler (Ventolin HFA) Of Breath Or Wheezing aspirin 81 mg tablet,delayed 81 mg PO QAM 08/28/20 09/21/23 History release (Uri Low Dose Aspirin) metformin 1,000 mg tablet 1,000 mg PO BID 08/28/20 09/21/23 History blood sugar diagnostic (Good ThingTouch #50 ea 06/02/21 09/21/23 Rx Verio test strips) blood-glucose meter (OneTouch #1 ea 06/02/21 09/21/23 Rx Verio Meter) lancets 33 gauge (OneTouch Delica #100 ea 06/02/21 09/21/23 Rx Lancets) tiotropium 2.5 mcg-olodaterol 2.5 2 puff inhalation QAM 09/02/21 09/21/23 History mcg/actuation mist for inhalation (Stiolto Respimat) folic acid 1 mg tablet 1 mg PO QAM 03/24/22 09/21/23 History losartan 50 mg tablet 50 mg PO QAM 03/24/22 09/21/23 History ipratropium 0.5 mg-albuterol 3 mg 3 ml inhalation Q4H PRN shortness 12/13/22 09/21/23 Rx (2.5 mg base)/3 mL nebulization of breath #90 mL soln bupropion HCl 150 mg 24 hr tablet, 150 mg PO DAILY 08/23/23 09/21/23 History extended release furosemide 20 mg tablet 20 mg PO DAILY 08/23/23 09/21/23 History rosuvastatin 20 mg tablet 20 mg PO DAILY 08/23/23 09/21/23 History pantoprazole 40 mg tablet,delayed 40 mg PO QAM #30 tabs 08/26/23 09/21/23 Rx release apixaban 5 mg tablet (Eliquis) 5 mg PO BID #60 tabs 09/10/23 09/21/23 Rx diltiazem HCl 180 mg 180 mg PO QAM #30 caps 09/10/23 09/21/23 Rx capsule,extended release 24 hr glipizide 5 mg tablet 5 mg PO DAILY #30 tabs 09/10/23 09/21/23 Rx metoprolol succinate 50 mg 50 mg PO BID #60 tabs 09/10/23 09/21/23 Rx tablet,extended release 24 hr oxycodone 5 mg tablet 5 mg PO TID PRN Pain #30 tabs 09/10/23 09/21/23 Rx prednisone 10 mg tablet See Rx Instructions .Route 09/10/23 09/21/23 Rx .COMPLEX #40 tabs budesonide-formoterol HFA 160 2 puff inhalation BID 09/21/23 09/21/23 History mcg-4.5 mcg/actuation aerosol inhaler Patient History Medical History Severe muscle deconditioning COPD exacerbation Acute on chronic respiratory failure with hypoxia Chronic pain syndrome Abdominal pain Respiratory failure Hyperkalemia Diabetes type 2, uncontrolled Acute hypercapnic respiratory failure TATY (acute kidney injury) AMS (altered mental status) Syncope Acute UTI Acute hypotension Chronic kidney disease, stage 3a Acute kidney injury Acute exacerbation of chronic low back pain Candidiasis of mouth and esophagus Tobacco abuse DVT prophylaxis Diabetes mellitus COPD (chronic obstructive pulmonary disease) Hypertension Hyperlipidemia Acute on chronic respiratory failure with hypoxia and hypercapnia History of knee replacement Left peroneal nerve palsy AAA (abdominal aortic aneurysm) Diaphragmatic hernia (10/31/11) Chronic low back pain Surgical History H/O Achilles tendon repair (~2007) H/O: hysterectomy History of appendectomy History of bilateral oophorectomies History of lithotripsy (~2007) Hx of cholecystectomy Family History Other Family history non-contributory Social History Smoking Status: Current every day smoker Tobacco Type: Cigarettes Cigarettes Per Day: 4-5; Second Hand Exposure: Yes; Do You Dip or Chew Tobacco: No; Hx Alcohol Use: No Hx Substance Use: No Preferred Language: Maltese Communication Ability: Effective Valve Repairer Reclamation Required: No Beliefs That Will Affect Care: None marital status: Current Living Situation: Spouse How many Children do You have: 3 Other Information That Helps Us Care for You: No Feels Safe at Home: Yes Safety Concerns: Feels Safe At This Time Assistive Devices: Cane, Oxygen - Continuous and Walker Review of Systems 2 Review of Systems: All systems reviewed & are unremarkable except as noted in HPI & below Physical Exam 2 Physical Exam: Constitutional: No acute distress HEENT: EOMI, PERRLA Respiratory system: Decreased air entry bilaterally, no wheeze, no rhonchi, mild crackles bilateral lower lobes CVS: S1-S2 positive, no murmurs or gallops Abdomen: Soft, nontender, nondistended, positive bowel sounds x4, obese Extremities: +2 pulses bilaterally radialis/ dorsalis pedis, no cyanosis, no edema Neuro: Awake alert oriented x3 Psych: Normal mood and affect G/U: Positive Gutierrez Skin: no rashes, warm and dry Lymphatic: no cervical or axillary lymphadenopathy Results & Data Results & Data Vital Signs (Past 12 Hours) Vital Signs Temp Pulse Pulse Resp BP Pulse Ox Pulse Ox 11/22/23 08:00 79 11/22/23 08:00 11/22/23 07:14 37.0 C 75 17 138/56 L 96 11/22/23 06:05 93 11/22/23 04:55 66 27 H 94 11/22/23 03:01 36.6 C 77 32 H 149/60 H 94 11/22/23 00:05 91 H 36 H 95 11/21/23 23:08 85 11/21/23 23:00 37.0 C 98 H 33 H 180/85 H 97 O2 Del Method O2 Del Method O2 Flow Rate O2 Flow Rate FiO2 11/22/23 08:00 11/22/23 08:00 Nasal Cannula 4 11/22/23 07:14 Nasal Cannula 4 11/22/23 06:05 Nasal Cannula 4 11/22/23 04:55 35 11/22/23 03:01 BiPAP 11/22/23 00:05 35 11/21/23 23:08 11/21/23 23:00 BiPAP Laboratory Results 11/22/23 07:22 11/22/23 07:22 PG Care Time/CCT Total # of Minutes Spent Total Time Spent with Patient: Total time spent is greater than 50% in coordination of care (as documented) at patient's floor/unit and/or counseling patient: Coding Level of Care Code 29575 INT INP/OBS CARE 375MIN Diagnoses Pneumonia J18.9 Laterality: right Lung location: lower lobe of lung Pneumonia type: due to unspecified organism Acute respiratory distress R06.03 Acute exacerbation of chronic obstructive pulmonary disease J44.1 Current smoker F17.200
--- NOTE | 2023-11-22 10:14 | Pharmacy Report ---
Pharmacy Glycemic Short Note 2 - Date of Service November 22, 2023 - Glycemic Short BSG Results (Last 24 hours): 11/21/23 11/21/23 11/21/23 11:45 11:46 16:31 Glucose POC Glucose 335 H* 332 H* 224 H 11/21/23 11/22/23 11/22/23 20:15 07:14 07:22 Glucose 192 H POC Glucose 179 H 236 H OUTPATIENT ANTIDIABETIC REGIMEN: * Metformin 1g PO BID * Glipizide 5mg PO Daily ASSESSMENT: * 73-year-old female presented to the hospital with complaints of SOB, PMH: COPD, HTN, DL, chronic hypoxic respiratory failure on 3 L oxygen at home, chronic low back pain, type 2 DM on oral medications at home, uncontrolled. * Pulmonary consulted for worsening shortness of breath, on IV antibiotics for possible RLL pneumonia. * Patient received 17 units insulin yesterday, 10 units basal, fasting BSG 236mg/dl - increase basal and tighten CF/CR, titrate to goal BSG. PLAN FOR INPATIENT GLYCEMIC CONTROL: * Hold outpatient oral diabetes medications * Basal insulin * Lantus 20 units SQ QAM * Lantus 15 units SQ HS for BSG > 180mg/dl * Bolus insulin * NovoLog per scale ACHS or Q6hrs while NPO * Goal Range: Low 110 mg/dL - High 140 mg/dL * Correction Factor: 20 mg/dL/unit * Nutritional / Prandial insulin per carb ratio of 1 unit per 6 grams CHO consumed
[2023-11-22] MEDS ORDERED: LANTUS PER UNIT CHARGE SQ ONE (10:15)
[2023-11-22 11:11] LABS: Influenza A virus by PCR Negative (Neg); Influenza B virus by PCR Negative (Neg); RSV by PCR Negative (Neg); SARS CoV2 RNA(COVID-19) Ceph NEGATIVE (Negative)
[2023-11-22 12:08] LABS: Base Excess ABG 5.9 mEq/L (-9-1.8); HCO3 ABG 31 mmol/L (19-24); Oxygen Saturation ABG 94.1 % (90-95); PCO2 ABG 48 mmHg (35-46); PO2 ABG 67 mmHg (80-95); pH ABG 7.42 (7.35-7.45)
[2023-11-22 12:10] LABS: Allen Test Pos (Pos)
[2023-11-22] MEDS ORDERED: ALBUTEROL 0.083% NEBU SOLN 3 ML VIAL NEB STA (13:35)
[2023-11-22] MEDS: ALBUT/IPRATROP 3MG/0.5MG NEB 3 ML VIAL INH PRN ×2 (14:29→20:40)
[2023-11-22] MEDS ORDERED: MAGNESIUM SULFATE / D5W 1 GM/100 ML BAG IV ONE (14:33)
[2023-11-22] MEDS ORDERED: POTASSIUM CHLORIDE CRTAB 20 MEQ TABCR PO STA (14:33)
[2023-11-22] MEDS: oxyCODONE HCL IR 5 MG TAB (IMMEDIATE RELEASE) PO PRN ×2 (15:04→23:53)
[2023-11-22] MEDS ORDERED: FUROSEMIDE 40 MG/4 ML VIAL IV ONE (15:06)
--- NOTE | 2023-11-22 15:07 | Communication Note ---
Date of Service: November 22, 2023 *Patient DID get her 20mg PO lasix today. Discussed w/ supervising provider and will order lasix 40mg IV x 1 to keep lungs on yolk spray drier side, monitor response/I&O and BMP in AM
[2023-11-22] MEDS ORDERED: LANTUS PER UNIT CHARGE SQ SCH (21:00)
[2023-11-23] MEDS: ALBUT/IPRATROP 3MG/0.5MG NEB 3 ML VIAL INH PRN ×3 (04:12→19:20)
--- NOTE | 2023-11-23 07:24 | XRay Report ---
SINGLE VIEW CHEST CLINICAL HISTORY: Chest congestion. FINDINGS: 2 AP, portable, upright chest radiographs are compared to study dated 11/21/2023 and correl ated with chest CT dated 09/05/2023. The examination is degraded by portable technique and patient ro tation. The heart is enlarged noting atherosclerotic calcification of the thoracic aorta. There is pr ominence of the pulmonary vasculature. Advanced emphysema and chronic interstitial thickening is gillian lar to previous. Right basilar consolidation is unchanged. Scarring/atelectasis is seen at the left l juan c base. Question a small right pleural effusion. No pneumothorax is seen. The skeletal structures a re osteopenic. The bony thorax is grossly intact. IMPRESSION: 1. Right basilar consolidation is unchanged. Correlate clinically for evidence of pneumonia/aspiratio n pneumonitis. Radiographic follow-up to resolution is recommended. 2. Cardiomegaly and emphysema with prominence of the pulmonary vasculature. Correlate clinically for evidence of fluid overload/congestive change. 3. Suspect a small right pleural effusion. ACT 112: Negative or not required by law. Electronically signed by: Koby Wallace M.D. 11/23/2023 7:23 AM
--- NOTE | 2023-11-23 07:36 | Hospitalist Progress Note ---
Date of Service November 23, 2023 Assessment & Plan (1) Sepsis: Plan: Suspect sepsis 2nd to possible pneumonia vs UTI vs other given leukocytosis, fever 38C, tachycardia (however suspect due to missed meds) on admission. End stage COPD . DOES NOT WANT INTUBATED, confirmed wishes with . Ok for meds/abx/fluids, but no intubation. Prior discussion w/ home on hospice but wasn't ready and again, reports patient was cooking turkey/ham this week, casserole last evening and was doing fairly well in the interim since last admission. They recently filled rx for nebulizer treatments at home. Was found down by around 445am but was awake talking/watching TV around 1am per Monitor on telemetry VBG w/ CO2 retention kar admit, chronic resp failure/end stage COPD at baseline BiPAP in ER, had used but then declined last evening. Repeat VBG similar CO2 retention Procal 0.20, lactic wnl, WBC 18k. Temp 38.4 10/22 CT HEAD/Cervical spine NEGATIVE on admission CXR w/ Mildly progressed subsegmental right basilar opacities which may r epresent atelectasis/scarring versus superimposed pneumonitis. UA/cx w/ probable enterococcus species on prelim-- monitor final 1.5 L IVF ordered, volume overloaded following -- see below Abx: IV Cefepime/Doxy for PNA coverage continued MRSA nares NEGATIVE Lasix 40mg IV x 1 on 11/22 with her usual 20mg PO in the morning. Renal function stable on repeat *K 3.4, ordered PO replacement, 60meq total as increased O2 up to 6L this morning after initially being down to 3L. BiPAP placed CXR w/ continued congestion/BNP improved and Cr stable w/ additional lasix yesterday and will repeat 40mg IV for today. Mag 1gm IV as well. --> Of note breathing much improved w/ lasix from this morning and 1000cc clear yellow output from pederson following administration. BNP trended down on repeat. Limited ECHO ordered to evshan WINTER Pulm consulted - Continue nebs, added mucomyst for today. continue abx/pulmonary toilet - Suspected RLL pneumonia, ?aspiration vs other - Repeat flu/rsv/covid negative (biofire negative on admission) NOW AGREEABLE TO BIPAP NOW SINCE THIS MORNING WITH INCREASED SOB/O2 UP TO 6L FROM 3L (BASELINE 4L AND SUSPECT DOESN'T WEAR ALL THE TIME AT HOME, STILL SMOKING) *Fecal occult + testing, large brown BP this morning and suspect slow bleed possible but denied any bleeding from urine/stool at baseline. Iron studies checked prior and LOW -- got 3rd dose Venofer this morning --> Holding aspirin/eliquis for now. SCDs added for DVT proph. Blood cultures remain NGTD PT/OT consults Continued telemetry monitoring, repeat labs/CXR in AM (2) Acute on chronic respiratory failure with hypoxia and hypercapnia: Plan: VBG w/ elevated CO2 52 on admission Chronic COPD, severe. prior admits w/ hospice discussion but unready. Appears baseline on 4L NC prior pulm note 2019 suggesting obesity hypoventilation syndrome, recs for noninvasive ventilation but patient was adamant against at that time. - was on BiPAP on admission, titrated to baseline 4L and asked to be placed back on last evening - pulm consulted, ?arrangement for BiPAP at me for chronic resp failure. apprecaite recs/assistance Continue abx w/ Cefepime/Doxy should cover for any exacerbation/atypical coverage Flu/rsv/covid testing negative on repeat (biofire negative on admission). ABG w/ improvement 11/22 in CO2 retention but REFUSED LAST NIGHT --> As above, further discussion and patient NOW AGREEABLE at me. Will ensure arranged Mucomyst to be added today Continue pulmonary toilet, supplemental O2 to maintain sats and BiPAP at night/sleeping Lasix as outlined above for volume overload (3) Pneumonia: Plan: suspected cause for above. abx as outlined/pulm consulted. (4) Anemia: Plan: Hgb appearing around baseline compared to values in August and before Checked iron studies Iron LOW 10, transferrin % sat 3, ferritin only 43 Venofer 300mg IV x 3 doses (completed 11/23) B12/folate w/ AM labs given normocytic --> B12 LOW 107 and IM x 3 doses ordered and then would continue daily Hgb 7.8 today from 8.0, suspect some diution from volume overload/elevated BNP. TSH wnl Did check fecal occult which was POSITIVE however no abdominal pain or raul bleeding reported Will increase PPI to BID, placed aspirin and eliquis on hold Monitor CBC/bleeding (5) Afib: Plan: EKG w/ sinus tachy on admit. Given her metoprolol and Cardizem as reported possible she forgot these CT head negative Improvement in HR w/ meds and abx for infection as above and has remained stable Eliquis continued on admission, now on HOLD due to + fecal occult testing, SCDs ordered K/Mag replacement ordered and would keep K~4, mag ~2 and will monitor labs in AM Continued telemetry monitoring (6) UTI (urinary tract infection): Plan: possible, abx as above f/u final urine cx --> ENTEROCOCCUS FAECALIS, ADDED AMOXICILLIN PO TO COMPLETE COURSE (7) Diabetes type 2, uncontrolled: Plan: Last A1c 10.0, much worse than priors but repeat 8.9 On metformin 1gm BID, glipizide 5mg daily at baseline, held while inpatient Given glargine x 1 on admission for elevated BSGs (?recent steroid taper) Hx abdominal discomfort/possible chronic abdominal pains when I had her in February 2022. Prior notes EGD arrangement at me was DECLINED despite reports of issues w/ dysphagia at baseline (8) Hypertension: Plan: BP 167/104 on admission. does note she forgets medications sometimes at home -- home meds w/ losartan 50mg, metoprolol 50mg BID, Cardizem 180 mg daily Given now metoprolol/cardizem w/ improvement Continues on losartan, metoprolol, cardizem Lasix 20mg PO now placed on hold for AM, IV as outlined above BP 117/65 (9) Acute exacerbation of chronic obstructive pulmonary disease: (10) Hypomagnesemia: Plan: replacement ordered, keeping ~2 w/ her afib (estrella now holding eliquis) (11) Acute respiratory distress: Plan: improved w/ BiPAP -- continue as above (12) Current smoker: Plan: rec cessation (13) Metabolic encephalopathy: Plan: CT head negative on admit improved w/ abx/treatment as outlined frequent orientation, monitor Plan continued inpatient stay, IV abx, BiPAP Admission and Anticipated Discharge Date Admission Date: November 21, 2023 Supervising Physician Co-Signing Physician Notes The patient was not seen by me. The chart was reviewed. Case discussed with [place] Haley. Agree with assessment and plan Subjective eval this afternoon eating lunch, appearing much better. was put on BiPAP this morning for worsened shortness of breath, improved following. discussed VBG/CO2 retention, she was seen by pulm this morning and agreeable to BiPAP which we will work on getting set up at discharge. Breathing reported stable/no significant shortness of breath this afternoon since lasix given, put out 1000mL clear yellow urine. No fever/chills,chest pain reported. Questions/concerns addressed at this time. Physical Exam Physical Exam: General: improved mentation, more awake/alert, talkative, sitting up in bed eating lunch, knows in [facility], October,, doesn't remember events of the fall prior to admission, NAD Heent: head normocephalic, pupils equal/reactive, mm improved resp: not tachypneic, able to speak in complete sentences, coarse breath sounds bilaterally/rhonchi MUCH improved, still slightly diminished in the bases/crackles RML/RLL, on supplemental oxygen CV: RRR,+systolic murmur, no pitting edema/calf tenderness GI: +BS, slight distension but nontender, no guarding/rigidity : pederson draining CLEAR YELLOW URINE MSK/Neuro: nonfocal, no obvious bony step off, asnwering questions appropriately Psych: AO to person/place/time, not events prior to admission Results & Data Results & Data Vital Signs (Past 12 Hours) Vital Signs Temp Pulse Pulse Resp BP Pulse Ox Pulse Ox 11/23/23 06:00 92 11/23/23 04:13 62 19 96 11/23/23 03:00 36.9 C 63 20 129/63 92 11/22/23 23:17 36.5 C 60 20 110/66 95 11/22/23 21:57 63 11/22/23 20:41 71 18 95 11/22/23 19:50 11/22/23 19:47 36.8 C 67 18 133/70 90 O2 Del Method O2 Del Method O2 Flow Rate O2 Flow Rate 11/23/23 06:00 Nasal Cannula 3 11/23/23 04:13 Nasal Cannula 4 11/23/23 03:00 Nasal Cannula 4 11/22/23 23:17 Nasal Cannula 11/22/23 21:57 11/22/23 20:41 Nasal Cannula 4 11/22/23 19:50 Nasal Cannula 4 11/22/23 19:47 Nasal Cannula Laboratory Results 11/23/23 11/23/23 11/23/23 Range/Units 11:08 10:42 08:40 WBC (4.8-10.8) K/ul RBC (4.20-5.40) M/uL Hgb (12.0-16.0) g/dl Hct (37.0-47.0) % MCV (80.0-100.0) fL MCH (25.0-34.0) pg MCHC (32.0-36.0) g/dL RDW Std Deviation (36.4-46.3) fL RDW Coeff of Dorcas (11.5-14.5) % Plt Count (130-400) K/uL MPV (9.4-12.4) fL Immature Gran % (Auto) % Neut % (Auto) % Lymph % (Auto) % Merrick % (Auto) % Eos % (Auto) % Baso % (Auto) % Neut # (Auto) (1.40-6.50) K/uL Lymph # (Auto) (1.20-3.40) K/uL Merrick # (Auto) (0.11-0.59) K/uL Eos # (Auto) (0.00-0.50) K/uL Baso # (Auto) (0.00-0.20) K/uL Immature Gran # (Auto) (0.01-0.20) K/uL Polychromasia Poikilocytosis VBG pH 7.43 H (7.36-7.41) VBG pCO2 52 H (38-50) mmHg VBG pO2 53 mmHg VBG HCO3 35 mmol/L VBG O2 Saturation 85.8 % VBG Base Excess 9.1 mEq/L Sodium (136-145) mmol/L Potassium (3.5-5.1) mmol/L Chloride (98-107) mmol/L Carbon Dioxide (21-32) mmol/L Anion Gap (3-11) BUN (6-23) mg/dl Creatinine (0.6-1.2) mg/dl Est Cr Clr Drug Dosing ml/min Est GFR ( Amer) ml/min Est GFR (Non-Af Amer) ml/min BUN/Creatinine Ratio (10-20) Glucose (70-99(Fasting)) mg/dl POC Glucose 129 H (70-99) mg/dl Calcium (8.6-10.3) mg/dl Magnesium (1.7-2.4) mg/dl B-Natriuretic Peptide (0-100) pg/ml Stool Occult Bld Scrn Positive A (Negative) 11/23/23 11/23/23 11/22/23 Range/Units 08:11 07:30 20:06 WBC 8.93 (4.8-10.8) K/ul RBC 2.99 L (4.20-5.40) M/uL Hgb 7.8 L (12.0-16.0) g/dl Hct 26.2 L (37.0-47.0) % MCV 87.6 (80.0-100.0) fL MCH 26.1 (25.0-34.0) pg MCHC 29.8 L (32.0-36.0) g/dL RDW Std Deviation 56.2 H (36.4-46.3) fL RDW Coeff of Dorcas 17.5 H (11.5-14.5) % Plt Count 330 (130-400) K/uL MPV 9.9 (9.4-12.4) fL Immature Gran % (Auto) 0.7 % Neut % (Auto) 80.2 % Lymph % (Auto) 9.2 % Merrick % (Auto) 6.5 % Eos % (Auto) 3.1 % Baso % (Auto) 0.3 % Neut # (Auto) 7.16 H (1.40-6.50) K/uL Lymph # (Auto) 0.82 L (1.20-3.40) K/uL Merrick # (Auto) 0.58 (0.11-0.59) K/uL Eos # (Auto) 0.28 (0.00-0.50) K/uL Baso # (Auto) 0.03 (0.00-0.20) K/uL Immature Gran # (Auto) 0.06 (0.01-0.20) K/uL Polychromasia 1+ Poikilocytosis Present VBG pH (7.36-7.41) VBG pCO2 (38-50) mmHg VBG pO2 mmHg VBG HCO3 mmol/L VBG O2 Saturation % VBG Base Excess mEq/L Sodium 139 (136-145) mmol/L Potassium 3.4 L (3.5-5.1) mmol/L Chloride 104 (98-107) mmol/L Carbon Dioxide 31 (21-32) mmol/L Anion Gap 4 (3-11) BUN 20 (6-23) mg/dl Creatinine 0.96 (0.6-1.2) mg/dl Est Cr Clr Drug Dosing 48.3 ml/min Est GFR ( Amer) 69.0 ml/min Est GFR (Non-Af Amer) 59.5 ml/min BUN/Creatinine Ratio 20.8 H (10-20) Glucose 198 H (70-99(Fasting)) mg/dl POC Glucose 177 H 168 H (70-99) mg/dl Calcium 8.3 L (8.6-10.3) mg/dl Magnesium 1.7 (1.7-2.4) mg/dl B-Natriuretic Peptide 183 H (0-100) pg/ml Stool Occult Bld Scrn (Negative) 11/22/23 Range/Units 16:17 WBC (4.8-10.8) K/ul RBC (4.20-5.40) M/uL Hgb (12.0-16.0) g/dl Hct (37.0-47.0) % MCV (80.0-100.0) fL MCH (25.0-34.0) pg MCHC (32.0-36.0) g/dL RDW Std Deviation (36.4-46.3) fL RDW Coeff of Dorcas (11.5-14.5) % Plt Count (130-400) K/uL MPV (9.4-12.4) fL Immature Gran % (Auto) % Neut % (Auto) % Lymph % (Auto) % Merrick % (Auto) % Eos % (Auto) % Baso % (Auto) % Neut # (Auto) (1.40-6.50) K/uL Lymph # (Auto) (1.20-3.40) K/uL Merrick # (Auto) (0.11-0.59) K/uL Eos # (Auto) (0.00-0.50) K/uL Baso # (Auto) (0.00-0.20) K/uL Immature Gran # (Auto) (0.01-0.20) K/uL Polychromasia Poikilocytosis VBG pH (7.36-7.41) VBG pCO2 (38-50) mmHg VBG pO2 mmHg VBG HCO3 mmol/L VBG O2 Saturation % VBG Base Excess mEq/L Sodium (136-145) mmol/L Potassium (3.5-5.1) mmol/L Chloride (98-107) mmol/L Carbon Dioxide (21-32) mmol/L Anion Gap (3-11) BUN (6-23) mg/dl Creatinine (0.6-1.2) mg/dl Est Cr Clr Drug Dosing ml/min Est GFR ( Amer) ml/min Est GFR (Non-Af Amer) ml/min BUN/Creatinine Ratio (10-20) Glucose (70-99(Fasting)) mg/dl POC Glucose 126 H (70-99) mg/dl Calcium (8.6-10.3) mg/dl Magnesium (1.7-2.4) mg/dl B-Natriuretic Peptide (0-100) pg/ml Stool Occult Bld Scrn (Negative) Diagnostic Findings Chest X-Ray 11/23/23 07:00 SINGLE VIEW CHEST CLINICAL HISTORY: Chest congestion. FINDINGS: 2 AP, portable, upright chest radiographs are compared to study dated 11/21/2023 and correlated with chest CT dated 09/05/2023. The examination is degraded by portable technique and patient rotation. The heart is enlarged noting atherosclerotic calcification of the thoracic aorta. There is prominence of the pulmonary vasculature. Advanced emphysema and chronic interstitial thickening is similar to previous. Right basilar consolidation is unchanged. Scarring/atelectasis is seen at the left lung base. Question a small right pleural effusion. No pneumothorax is seen. The skeletal structures are osteopenic. The bony thorax is grossly intact. IMPRESSION: 1. Right basilar consolidation is unchanged. Correlate clinically for evidence of pneumonia/aspiration pneumonitis. Radiographic follow-up to resolution is recommended. 2. Cardiomegaly and emphysema with prominence of the pulmonary vasculature. Correlate clinically for evidence of fluid overload/congestive change. 3. Suspect a small right pleural effusion. ACT 112: Negative or not required by law. Electronically signed by: Koby Wallace M.D. 11/23/2023 7:23 AM PG Care Time/CCT Total # of Minutes Spent Total Time Spent with Patient: Total time spent is greater than 50% in coordination of care (as documented) at patient's floor/unit and/or counseling patient: Coding Level of Care Code 22500 SUB INP/OBS CARE 3/50MIN Diagnoses Sepsis A41.9 Acute on chronic respiratory failure with hypoxia and hypercapnia J96.21; J96.22 Pneumonia J18.9 Laterality: right Lung location: lower lobe of lung Pneumonia type: due to unspecified organism Anemia D64.9 Anemia type: unspecified type Afib I48.91 UTI (urinary tract infection) N39.0 Diabetes type 2, uncontrolled E11.65 Glycemic state: with hyperglycemia Hypertension I10 Hypertension type: unspecified Acute exacerbation of chronic obstructive pulmonary disease J44.1 Hypomagnesemia E83.42 Acute respiratory distress R06.03 Current smoker F17.200 Metabolic encephalopathy G93.41 (3) Pneumonia Laterality: right Lung location: lower lobe of lung Pneumonia type: due to unspecified organism Qualified Code(s): J18.9 - Pneumonia, unspecified organism (4) Anemia Anemia type: unspecified type Qualified Code(s): D64.9 - Anemia, unspecified (7) Diabetes type 2, uncontrolled Glycemic state: with hyperglycemia Qualified Code(s): E11.65 - Type 2 diabetes mellitus with hyperglycemia (8) Hypertension Hypertension type: unspecified Qualified Code(s): I10 - Essential (primary) hypertension
[2023-11-23] MEDS: IRON SUCROSE 300 MG in SODIUM CHLORIDE 0.9% 250 ML IV SCH (07:43)
[2023-11-23] MEDS: CEFEPIME 2,000 MG in SYRINGE 0 ML IV SCH ×2 (07:43→19:56)
[2023-11-23] MEDS: INSULIN ASPART PER UNIT CHARGE SC SCH ×5 (07:45→23:49)
[2023-11-23] MEDS: FLUTICASONE/VILANTEROL 100/25MCG 14 PUFFS/INHALER INH SCH (07:48)
[2023-11-23] MEDS: UMECLIDINIUM BROMIDE 62.5MCG/BLISTER 7 PUFFS/INHALER INH SCH (07:48)
[2023-11-23] MEDS: ASPIRIN 81 MG ECTAB PO SCH (07:50)
[2023-11-23] MEDS: APIXABAN 5 MG TABLET PO SCH (07:50)
[2023-11-23] MEDS: FOLIC ACID 1 MG TAB PO SCH (07:51)
[2023-11-23] MEDS: buPROPion XL 150 MG TABCR PO SCH (07:51)
[2023-11-23] MEDS: PANTOprazole 40 MG TAB PO SCH ×2 (07:52→20:02)
[2023-11-23] MEDS: CYANOCOBALAMIN 1000 MCG/ML VIAL IM SCH (07:52)
[2023-11-23 08:26] LABS: Basophils # (auto) 0.03 K/uL (0.00-0.20); Basophils % (auto) 0.3 %; Eosinophils # (auto) 0.28 K/uL (0.00-0.50); Eosinophils % (auto) 3.1 %; Hematocrit (blood only) 26.2 % (37.0-47.0); Hemoglobin 7.8 g/dl (12.0-16.0); Immature Granulocytes # (auto) 0.06 K/uL (0.01-0.20); Immature Granulocytes % (auto) 0.7 %; Lymphocytes # (auto) 0.82 K/uL (1.20-3.40); Lymphocytes % (auto) 9.2 %; Mean Corpuscular Hemoglobin 26.1 pg (25.0-34.0); Mean Corpuscular Hgb Conc 29.8 g/dL (32.0-36.0); Mean Corpuscular Volume 87.6 fL (80.0-100.0); Mean Platelet Volume 9.9 fL (9.4-12.4); Monocytes # (auto) 0.58 K/uL (0.11-0.59); Monocytes % (auto) 6.5 %; Neutrophils # (auto) 7.16 K/uL (1.40-6.50); Neutrophils % (auto) 80.2 %; Platelet Count 330 K/uL (130-400); RDW Coefficient of Variation 17.5 % (11.5-14.5); RDW Standard Deviation 56.2 fL (36.4-46.3); Red Blood Count 2.99 M/uL (4.20-5.40); White Blood Count 8.93 K/ul (4.8-10.8)
[2023-11-23 08:46] LABS: BUN Creatinine Ratio 20.8 (10-20); Calcium 8.3 mg/dl (8.6-10.3); Creatinine Clr Calc Pharmacy 48.3 ml/min; Est GFR (Non-African American) 59.5 ml/min; Magnesium 1.7 mg/dl (1.7-2.4); Potassium 3.4 mmol/L (3.5-5.1)
[2023-11-23] MEDS: LANTUS PER UNIT CHARGE SQ SCH (08:47)
[2023-11-23] MEDS: oxyCODONE HCL IR 5 MG TAB (IMMEDIATE RELEASE) PO PRN ×2 (08:48→16:50)
[2023-11-23] MEDS: METOPROLOL SUCC 50MG EXT REL TAB PO SCH ×2 (08:48→20:03)
[2023-11-23] MEDS: FUROSEMIDE 20 MG TAB PO SCH (08:48)
[2023-11-23] MEDS: LOSARTAN POTASSIUM 50 MG TAB PO SCH (08:49)
[2023-11-23] MEDS: dilTIAZem HCL 180 MG CAPCR PO SCH (08:49)
[2023-11-23] MEDS ORDERED: POTASSIUM CHLORIDE CRTAB 20 MEQ TABCR PO STA (08:58)
[2023-11-23] MEDS ORDERED: LANTUS PER UNIT CHARGE SQ SCH (09:00)
--- NOTE | 2023-11-23 09:12 | Pulmonology Progress Note ---
Date of Service November 23, 2023 Assessment & Plan (1) Pneumonia: Laterality: right Lung location: lower lobe of lung Pneumonia type: due to unspecified organism Qualified Code(s): J18.9 - Pneumonia, unspecified organism (2) Acute respiratory distress: (3) Acute exacerbation of chronic obstructive pulmonary disease: (4) Current smoker: Plan PFT 01/17/2020 personally reviewed: Severe obstructive lung dysfunction, significant bronchodilator response, increased lung volume with air trapping FVC 1.96 L 72%, FEV1 0.94 L 48%, FEV1/FVC 47%, TLC 169%, RV/DLCO 188% Chest x-ray 11/21/2023 personally reviewed: Portable film, hyperinflated film, patchy opacity in the right lower lobe retrocardiac. ABG 11/22/2023: 7.42/48/67 on 4 L -- Severe COPD with emphysema Gold E On high-dose Symbicort and Stiolto at home Nasal MRSA negative Influenza A/B, RSV, COVID-19 all negative Continue with antibiotics for possible right lower lobe pneumonia --Chronic hypoxic respiratory failure On 4 L oxygen at home --A-fib On apixaban --DNR/DNI Plan: Chest x-ray from today shows mild worsening in the right lower lobe infiltrate. I will add Mucomyst and 7% nebulized saline along with flutter valve to patient's regimen Continue with antibiotics with atypical coverage Due to chronic respiratory failure consequent to COPD, patient now requires a noninvasive home ventilator. Bilevel therapy with and without a rate would be ineffective as patient requires a volume targeted mode. Ventilation is required to decrease work of breathing and improve pulmonary status. Interruption of ventilator support would lead to decline of health status. Patient's pCO2 was 48 on ABG on 11/22/2023 her FEV1 is 48% predicted on 01/17/2020 NIMV settings should be AVAPS-AE; Breath rate: auto; Inspiratory time:auto; Sigh: off; Tidal Volume: 350-450, PS min: 4-10 PS max: 12-20; EPAP min: 6-10; EPAP max: 10-16; AVAPS rate: 14 during sleep and as needed Patient seems to be on Stiolto and Symbicort at home. In place of Stiolto would recommend Spiriva on discharge Case discussed with primary team and RN at bedside No further recommendation from pulmonary perspective, will sign off Please call directly with any questions Please note the above document was generated using voice recognition software. It may contain grammatical, syntax or spelling errors.Any formal questions or concerns about the content, text or information contained within the body of this dictation should be directly addressed to the provider for clarification. Admission and Anticipated Discharge Date Admission Date: November 21, 2023 Subjective Patient seen and examined at bedside. No acute distress. Overnight/early in the morning patient needed more oxygen than her baseline. She was on 5 L at the time of examination She did use BiPAP only for 30 minutes I explained how to use incentive spirometry at bedside She is not able to bring enough LAMA. She does complain of chest congestion No nausea vomiting Appetite is fair. No headache, no blurry vision Review of Systems 2 Review of Systems: All systems reviewed & are unremarkable except as noted in Subjective Physical Exam 2 Physical Exam: Constitutional: No acute distress HEENT: EOMI, PERRLA Respiratory system: Decreased air entry bilaterally, no wheeze, no rhonchi, mild crackles bilateral lower lobes, R>L CVS: S1-S2 positive, no murmurs or gallops Abdomen: Soft, nontender, nondistended, positive bowel sounds x4, obese Extremities: +2 pulses bilaterally radialis/ dorsalis pedis, no cyanosis, no edema Neuro: Awake alert oriented x3 Psych: Normal mood and affect G/U: Positive Gutierrez Skin: no rashes, warm and dry Lymphatic: no cervical or axillary lymphadenopathy Results & Data Results & Data Vital Signs (Past 12 Hours) Vital Signs Temp Pulse Pulse Resp BP Pulse Ox Pulse Ox 11/23/23 08:00 37.1 C 64 18 138/65 90 11/23/23 06:00 92 11/23/23 04:13 62 19 96 11/23/23 03:00 36.9 C 63 20 129/63 92 11/22/23 23:17 36.5 C 60 20 110/66 95 11/22/23 21:57 63 O2 Del Method O2 Del Method O2 Flow Rate O2 Flow Rate 11/23/23 08:00 Nasal Cannula 6 11/23/23 06:00 Nasal Cannula 3 11/23/23 04:13 Nasal Cannula 4 11/23/23 03:00 Nasal Cannula 4 11/22/23 23:17 Nasal Cannula 11/22/23 21:57 Laboratory Results 11/23/23 08:11 11/23/23 08:11 PG Care Time/CCT Total # of Minutes Spent Total Time Spent with Patient: Total time spent is greater than 50% in coordination of care (as documented) at patient's floor/unit and/or counseling patient: Coding Level of Care Code 16261 SUB INP/OBS CARE 3/50MIN Diagnoses Pneumonia J18.9 Laterality: right Lung location: lower lobe of lung Pneumonia type: due to unspecified organism Acute respiratory distress R06.03 Acute exacerbation of chronic obstructive pulmonary disease J44.1 Current smoker F17.200
[2023-11-23] MEDS ORDERED: FUROSEMIDE 40 MG/4 ML VIAL IV ONE (09:30)
[2023-11-23] MEDS: MAGNESIUM SULFATE / D5W 1 GM/100 ML BAG IV SCH ×2 (09:35→11:41)
[2023-11-23 10:33] LABS: Poikilocytosis Present; Polychromasia 1+
[2023-11-23 10:54] LABS: Base Excess VBG 9.1 mEq/L; HCO3 VBG 35 mmol/L; Oxygen Saturation VBG 85.8 %; PCO2 VBG 52 mmHg (38-50); PO2 VBG 53 mmHg; pH VBG 7.43 (7.36-7.41)
[2023-11-23] MEDS: ACETYLCYSTEINE 20% INHAL SOLN 4ML ***DISPENSED BY RESP. INH SCH ×2 (12:16→19:19)
--- NOTE | 2023-11-23 13:32 | XCELERA ---
[id number]
[2023-11-23] MEDS: DOXYCYCLINE HYCLATE 100 MG in D5W MINI-B 100 ML (Q12H) IV SCH (13:45)
[2023-11-23] MEDS: AMOXICILLIN 875 MG TAB PO SCH ×2 (14:06→22:48)
[2023-11-23] MEDS ORDERED: POTASSIUM CHLORIDE CRTAB 20 MEQ TABCR PO ONE (18:00)
[2023-11-23] MEDS: SODIUM CHLOR 7% 4 ML NEB NEB SCH (19:20)
[2023-11-24] MEDS: DOXYCYCLINE HYCLATE 100 MG in D5W MINI-B 100 ML (Q12H) IV SCH ×2 (00:59→14:10)
[2023-11-24] MEDS: oxyCODONE HCL IR 5 MG TAB (IMMEDIATE RELEASE) PO PRN ×3 (01:03→20:04)
[2023-11-24] MEDS: ALBUT/IPRATROP 3MG/0.5MG NEB 3 ML VIAL INH PRN ×2 (05:50→18:30)
[2023-11-24] MEDS: SODIUM CHLOR 7% 4 ML NEB NEB SCH ×2 (05:50→18:30)
[2023-11-24] MEDS: ACETYLCYSTEINE 20% INHAL SOLN 4ML ***DISPENSED BY RESP. INH SCH ×2 (05:51→18:29)
[2023-11-24 07:18] LABS: Base Excess VBG 6.8 mEq/L; HCO3 VBG 34 mmol/L; Oxygen Saturation VBG < 60.0 %; PCO2 VBG 57 mmHg (38-50); PO2 VBG 31 mmHg; pH VBG 7.38 (7.36-7.41)
[2023-11-24 07:21] LABS: Basophils # (auto) 0.05 K/uL (0.00-0.20); Basophils % (auto) 0.6 %; Eosinophils # (auto) 0.43 K/uL (0.00-0.50); Eosinophils % (auto) 5.4 %; Hematocrit (blood only) 27.6 % (37.0-47.0); Hemoglobin 8.2 g/dl (12.0-16.0); Immature Granulocytes # (auto) 0.31 K/uL (0.01-0.20); Immature Granulocytes % (auto) 3.9 %; Lymphocytes # (auto) 0.93 K/uL (1.20-3.40); Lymphocytes % (auto) 11.6 %; Mean Corpuscular Hemoglobin 25.9 pg (25.0-34.0); Mean Corpuscular Hgb Conc 29.7 g/dL (32.0-36.0); Mean Corpuscular Volume 87.3 fL (80.0-100.0); Mean Platelet Volume 9.9 fL (9.4-12.4); Monocytes # (auto) 0.68 K/uL (0.11-0.59); Monocytes % (auto) 8.5 %; Nucleated RBC # (auto) 0.02 K/uL (0.00-0.12); Nucleated RBC % (auto) 0.3 %; Platelet Count 397 K/uL (130-400); RDW Coefficient of Variation 17.6 % (11.5-14.5); RDW Standard Deviation 55.7 fL (36.4-46.3); Red Blood Count 3.16 M/uL (4.20-5.40)
[2023-11-24 07:33] LABS: Albumin Level 2.8 gm/dl (3.4-5.0); BUN Creatinine Ratio 17.9 (10-20); Bilirubin,Total 0.2 mg/dl (0.2-1.0); Calcium 8.4 mg/dl (8.6-10.3); Creatinine Clr Calc Pharmacy 41.4 ml/min; Est GFR (African American) 57.2 ml/min; Est GFR (Non-African American) 49.4 ml/min; Globulin 2.7 gm/dl (2.5-4.0); Potassium 3.9 mmol/L (3.5-5.1); Total Protein 5.5 gm/dl (6.0-8.3)
[2023-11-24] MEDS ORDERED: POTASSIUM CHLORIDE CRTAB 20 MEQ TABCR PO STA (07:46)
--- NOTE | 2023-11-24 07:46 | Hospitalist Progress Note ---
Date of Service November 24, 2023 Assessment & Plan (1) Sepsis: (2) Acute on chronic respiratory failure with hypoxia and hypercapnia: (3) Pneumonia: (4) Anemia: (5) Afib: (6) UTI (urinary tract infection): (7) Diabetes type 2, uncontrolled: (8) Hypertension: (9) Acute exacerbation of chronic obstructive pulmonary disease: (10) Hypomagnesemia: (11) Acute respiratory distress: (12) Current smoker: (13) Metabolic encephalopathy: Plan Suspect sepsis 2nd to possible pneumonia vs UTI vs other given leukocytosis, fever 38C, tachycardia (however suspect due to missed meds) on admission. End stage COPD. Biofire negative. Confirmed w/ , NO intubation. Prior discussion about palliative however has reportedly been "doing well" at home and cooking/baking, watching TV til 1am prior to being found down when when to use bathroom at 445am and thought she got up to make coffee and was weak/found on the ground VBG w/ CO2 retention, placed on BiPAP in ER. At baseline, chronic resp failure/end stage COPD on supplemental O2 4L at baseline (also still smokes, and suspect does NOT wear all the time) Procal 0.2, lactic wnl WBC 18k w/ temp 38.[address] head/cervical spine negative for acute process CXR w/ subsegmental R basilar opacities, ?atelectasis vs scarring vs pneumonitis Placed on Cefepime/Doxy for pneumonia coverage. MRSA nares NEGATIVE WBC now wnl, no further fevers. Blood cultures remain NGTD Pulm consulted, suspected pneumonia, continue abx -Arranging for NIMV at discharge due to chronic respiratory failure consequent to COPD, -Mucomyst while inpatient and hypertonic saline to help clear secretions. Continue pulmonary toilet -Per pulm discussion morning 11/24, recs to send RX for Hypertonic saline nebs at dc (she did recently get Atrovent/albuterol neb/machine this past week) -Also to change to Spiriva in place of stiolto at discharge I suspected volume overload from IVF on admission for sepsis in patient w/ CHF on diuretics w/ 20mg po lasix at baseline. Checked BNP, elevated. EF normal on ECHO - usual 20mg PO lasix on 11/23 but given lasix 40mg IV as well due to exam/congestion IMPROVEMENT in rales/wheezing following and 1000cc clear yellow urine output in pederson Repeat lasix 40mg IV for for this morning and switched to 40mg PO daily for tomorrow and likely would continue increased dose at discharge to maintain euvolemia Smoking cessation to be encouraged Supplemental O2 to maintain sats -- presently 4.5L (baseline 4L) C2V ordered for AM Chronic Respiratory Failure with Hypoxia and Hypercapnia Baseline 4L NC Prior recs for BiPAP in 2019 CO2 retention as above on admission on VBG, tx as outlined. Pulmonology consulted, ABG w/ elevated CO2 as well following intervention, requiring treatment w/ NIMV at discharge. Patient agreeable Per pulm, patient now requires a noninvasive home ventilator. "Bilevel therapy with and without a rate would be ineffective as patient requires a volume targeted mode. -Ventilation is required to decrease work of breathing and improve pulmonary status. Interruption of ventilator support would lead to decline of health status. -Patient's pCO2 was 48 on ABG on 11/22/2023 her FEV1 is 48% predicted on 01/17/2020 -NIMV settings should be AVAPS-AE; Breath rate: auto; Inspiratory time:auto; Sigh: off; Tidal Volume: 350-450, PS min: 4-10 PS max: 12-20; EPAP min: 6-10; EPAP max: 10-16; AVAPS rate: 14 during sleep and as needed" UTI - possible given urine when EMS arrived initially, however patient denied any symptoms of such. ?cystitis. Placed on am Added amoxicillin for now as not covered w/ above. If dc on Augmentin for pulm coverage, should cover Voiding trial prior to dc in AM Consider completing course at dc for pulm/urine coverage w/ Augmentin. Would also complete doxy total 5 days for atypical coverage Anemia Hgb 9.3 on admission, around baseline compared to priors IVF as above on admission for sepsis and hgb down to 8s on repeat and iron studies/b12/folate checked for completeness Iron studies checked --Iron LOW 10, transferrin % sat 3, ferritin only 43. Venofer 300mg IV x 3 doses (completed 11/23) B12 LOW 107, placed on IM x 3 days and continues on 1000mcg daily PO which should be continued at discharge Folate wnl Hgb to 7.8 off IVF on 11/23 + fecal occult testing w/ formed brown BM AM 11/23 and could be slow due to home aspirin/eliquis (vs just low from dilution/overloaded state) which have been placed on hold for now, SCDs added for DVT prophylaxis PPI increased to BID and would continue at dc Hgb stable/improved to 8.2 Timing to resume TBD at discharged given no active bleeding. Patient declined f/u arrangement for EGD in past when I had her in February 2022 for complaints of dysphagia but can be discussed/arranged at discharge if aggreeable CBC in AM Afib EKG w/ sinus tachy on admit. Suspected 2nd in sepsis/infection as above. Given now meds CT head negative. TSH wnl Keeping mag/K replete, stable on repeat labs Eliquis was continued but +FOCB as above, placed on hold and monitoring ability to resume. SCDs ordered in meantime Monitor on telemetry Metabolic Encephalopathy - resolved w/ tx as above. CT head negative. HTN BP 167/104 on admission and noted did forget meds. NOW meds provided, continued on usual metoprolol/cardizem, losartan. Lasix as outlined above with likely increase at dc DM II Last A1c 10.0, much worse than priors but repeat 8.9 On metformin 1gm BID, glipizide 5mg daily at baseline, held while inpatient Given glargine x 1 on admission for elevated BSGs (?recent steroid taper) Hx abdominal discomfort/possible chronic abdominal pains when I had her in February 2022. Prior notes EGD arrangement at [facility] was DECLINED despite reports of issues w/ dysphagia at baseline BSgs acceptable PT/OT consulted Patient is hopeful for dc /2 if arrangements made Admission and Anticipated Discharge Date Admission Date: November 21, 2023 Supervising Physician Co-Signing Physician Notes The patient was not seen by me. The chart was reviewed. Case discussed with [place]. Agree with assessment and plan Subjective Eval this morning, feeling much better. Breathing stable on supplemental O2. Got mucomyst as well and getting up some yellow sputum. Continues on abx. Reports her legs are much better since the lasix and urine clear yellow in urine. Moving around a lot better, hopeful for dc today but discussed arranging machine at [facility] (she states she is agreeable, limited use but should be available, continued CO2 retention). Moved her bowels this morning. Hgb stable/improved and discussed holding eliquis/aspirin and PPI increased to BID and will monitor counts/ability to resume and hopefully discharge tomorrow. Physical Exam 2 Physical Exam: General: improved mentation, wondering if she can go home today, NAD HEENT: head normocephalic, pupils equal/reactive, mm stable resp: not tachypneic, able to speak in complete sentences, + cough/sputum production significant improvement/resolution in rhonchi/wheezing on exam, RML crackles, on 4-5L NC to maintain sats CV: RRR,+systolic murmur, no further pedal edema, pulses palpable GI: +BS, less distension (+BM this morning reported) : pederson draining CLEAR YELLOW URINE MSK/Neuro: nonfocal, no obvious bony step off, answering questions appropriately Psych: AOx3, cooperative with exam Results & Data Results & Data Vital Signs (Past 12 Hours) Vital Signs Temp Pulse Pulse Resp BP Pulse Ox Pulse Ox 11/24/23 05:51 63 18 94 11/24/23 05:05 92 11/24/23 02:41 36.9 C 64 20 125/70 88 L 11/23/23 23:14 36.9 C 62 18 125/68 92 11/23/23 23:07 63 22 96 11/23/23 22:00 62 11/23/23 19:56 11/23/23 19:48 36.6 C 63 18 133/57 L 93 O2 Del Method O2 Del Method O2 Flow Rate O2 Flow Rate 11/24/23 05:51 Nasal Cannula 5 11/24/23 05:05 Nasal Cannula 3 11/24/23 02:41 Nasal Cannula 11/23/23 23:14 Nasal Cannula 11/23/23 23:07 5 11/23/23 22:00 11/23/23 19:56 Nasal Cannula 4 11/23/23 19:48 Nasal Cannula Laboratory Results 11/24/23 06:59 11/24/23 06:59 Diagnostic Findings Chest X-Ray 11/24/23 07:00 XR chest 1V portable CLINICAL HISTORY: follow up opacities/congestion COMPARISON STUDY: Chest CT September 05, 2023. Chest radiograph November 23, 2023 FINDINGS: No pneumothorax or pleural effusion is identified. Right basilar airspace opacity has progressed. There is minimal left basilar opacity. Cardiomediastinal silhouette is stable. No evidence for pulmonary edema. There are severe emphysema. IMPRESSION: 1. Progression of right basilar opacity suggestive of pneumonia or aspiration pneumonitis. Radiographic follow-up to ensure resolution is recommended. 2. Emphysema. ACT 112: Negative or not required by law. Electronically signed by: Cheng Arevalo M.D. 11/24/2023 8:40 AM PG Care Time/CCT Total # of Minutes Spent Total Time Spent with Patient: Total time spent is greater than 50% in coordination of care (as documented) at patient's floor/unit and/or counseling patient: Coding Level of Care Code 20994 SUB INP/OBS CARE 3/50MIN Diagnoses Sepsis A41.9 Acute on chronic respiratory failure with hypoxia and hypercapnia J96.21; J96.22 Pneumonia J18.9 Laterality: right Lung location: lower lobe of lung Pneumonia type: due to unspecified organism Anemia D64.9 Anemia type: unspecified type Afib I48.91 UTI (urinary tract infection) N39.0 Diabetes type 2, uncontrolled E11.65 Glycemic state: with hyperglycemia Hypertension I10 Hypertension type: unspecified Acute exacerbation of chronic obstructive pulmonary disease J44.1 Hypomagnesemia E83.42 Acute respiratory distress R06.03 Current smoker F17.200 Metabolic encephalopathy G93.41 (3) Pneumonia Laterality: right Lung location: lower lobe of lung Pneumonia type: due to unspecified organism Qualified Code(s): J18.9 - Pneumonia, unspecified organism (4) Anemia Anemia type: unspecified type Qualified Code(s): D64.9 - Anemia, unspecified (7) Diabetes type 2, uncontrolled Glycemic state: with hyperglycemia Qualified Code(s): E11.65 - Type 2 diabetes mellitus with hyperglycemia (8) Hypertension Hypertension type: unspecified Qualified Code(s): I10 - Essential (primary) hypertension
[2023-11-24] MEDS: CEFEPIME 2,000 MG in SYRINGE 0 ML IV SCH ×2 (07:56→20:12)
[2023-11-24] MEDS: AMOXICILLIN 875 MG TAB PO SCH ×2 (07:57→20:18)
[2023-11-24] MEDS: buPROPion XL 150 MG TABCR PO SCH (07:58)
[2023-11-24] MEDS: CYANOCOBALAMIN 1000 MCG/ML VIAL IM SCH (07:58)
[2023-11-24] MEDS: dilTIAZem HCL 180 MG CAPCR PO SCH (07:59)
[2023-11-24] MEDS: FLUTICASONE/VILANTEROL 100/25MCG 14 PUFFS/INHALER INH SCH (07:59)
[2023-11-24] MEDS: LOSARTAN POTASSIUM 50 MG TAB PO SCH (08:00)
[2023-11-24] MEDS: FOLIC ACID 1 MG TAB PO SCH (08:00)
[2023-11-24] MEDS: UMECLIDINIUM BROMIDE 62.5MCG/BLISTER 7 PUFFS/INHALER INH SCH (08:00)
[2023-11-24] MEDS: METOPROLOL SUCC 50MG EXT REL TAB PO SCH ×2 (08:00→20:17)
[2023-11-24] MEDS: PANTOprazole 40 MG TAB PO SCH ×2 (08:00→20:17)
[2023-11-24] MEDS: INSULIN ASPART PER UNIT CHARGE SC SCH ×4 (08:05→20:14)
[2023-11-24] MEDS: LANTUS PER UNIT CHARGE SQ SCH (08:05)
--- NOTE | 2023-11-24 08:42 | XRay Report ---
XR chest 1V portable CLINICAL HISTORY: follow up opacities/congestion COMPARISON STUDY: Chest CT September 05, 2023. Chest radiograph November 23, 2023 FINDINGS: No pneumothorax or pleural effusion is identified. Right basilar airspace opacity has progr essed. There is minimal left basilar opacity. Cardiomediastinal silhouette is stable. No evidence for pulmonary edema. There are severe emphysema. IMPRESSION: 1. Progression of right basilar opacity suggestive of pneumonia or aspiration pneumonitis. Radiograph ic follow-up to ensure resolution is recommended. 2. Emphysema. ACT 112: Negative or not required by law. Electronically signed by: Cheng Arevalo M.D. 11/24/2023 8:40 AM
[2023-11-24] MEDS ORDERED: FUROSEMIDE 40 MG/4 ML VIAL IV SCH (09:00)
[2023-11-24] MEDS: DOXYCYCLINE HYCLATE 100 MG CAP PO SCH (20:18)
[2023-11-25] MEDS: oxyCODONE HCL IR 5 MG TAB (IMMEDIATE RELEASE) PO PRN ×2 (04:08→12:56)
[2023-11-25] MEDS: ACETYLCYSTEINE 20% INHAL SOLN 4ML ***DISPENSED BY RESP. INH SCH ×2 (07:09→19:34)
[2023-11-25] MEDS: ALBUT/IPRATROP 3MG/0.5MG NEB 3 ML VIAL INH PRN ×2 (07:09→19:34)
[2023-11-25] MEDS: SODIUM CHLOR 7% 4 ML NEB NEB SCH ×2 (07:25→19:34)
--- NOTE | 2023-11-25 07:34 | Hospitalist Progress Note ---
Date of Service November 25, 2023 Assessment & Plan (1) Sepsis: Plan: Suspect sepsis 2nd to possible pneumonia vs UTI vs other given leukocytosis, fever 38C, tachycardia (however suspect due to missed meds) on admission. End stage COPD. Biofire negative. Confirmed w/ , NO intubation. Prior discussion about palliative however has reportedly been "doing well" at home and cooking/baking, watching TV til 1am prior to being found down when when to use bathroom at 445am and thought she got up to make coffee and was weak/found on the ground VBG w/ CO2 retention, placed on BiPAP in ER. At baseline, chronic resp failure/end stage COPD on supplemental O2 4L at baseline (also still smokes, and suspect does NOT wear all the time) Procal 0.2, lactic wnl WBC 18k w/ temp 38.[address] head/cervical spine negative for acute process CXR w/ subsegmental R basilar opacities, ?atelectasis vs scarring vs pneumonitis IV Cefepime/Doxy for pneumonia coverage. MRSA nares NEGATIVE WBC now wnl, no further fevers. Blood cultures remain NGTD Pulm consulted. See notes. Suspected R sided pneumonia, abx/nebs as outlined and arranging for NIMV at dc 2nd to chronic respiratory failure consequent to COPD, Mucomyst/hypertonic saline while inpatient to help clear secretions. Volume overloaded during stay following IVF resuscitation initially for concerns for sepsis in CHF patient on diuretics at baseline w/ lasix 20mg PO daily. Suspect also could have some noncompliance at home/increased salt load over the holidays and did have some LE edema initially. BNP checked and was elevated. ECHO w/ normal EF Usual 20mg PO lasix on 11/23 but given lasix 40mg IV as well due to exam/congestion and continued through 11/24 with improvement in rales/wheezing following administration Switched to lasix 40mg PO daily for 1 and planning to increase to 40mg PO daily at discharge. Monitor in AM for need for possible additional dosing. Abx changed to PO to prevent excess volume Abx changed to Augmentin in place of the cefepime and amox (which was for urinary coverage) and continue Doxy PO BID (5 days planned) PT/OT evals, some knee buckling this AM/PT felt unsafe to eval steps. Xray lumbar spine for completeness but noting patient reporting NO increase in her back pain above baseline. - CM alerted for likely home health, patient agreeable. She DOES NOT want inpatient rehab/wants to be home w/ . CM to arrange transport tomorrow once cleared by PT. Insurance auth pending for home vent (2) Acute on chronic respiratory failure with hypoxia and hypercapnia: Plan: Chronic Respiratory Failure with Hypoxia and Hypercapnia Baseline 4L NC. Smoking cessation encouraged. Prior recs for BiPAP in 2019, chronic CO2 retention, elevated on VBG/ABG during inpatient stay Pulm on consult as above For insurance purposes, per pulm: patient now requires a noninvasive home ventilator. "Bilevel therapy with and without a rate would be ineffective as patient requires a volume targeted mode. -Ventilation is required to decrease work of breathing and improve pulmonary status. Interruption of ventilator support would lead to decline of health status. -Patient's pCO2 was 48 on ABG on 11/22/2023 her FEV1 is 48% predicted on 01/17/2020 -NIMV settings should be AVAPS-AE; Breath rate: auto; Inspiratory time:auto; Sigh: off; Tidal Volume: 350-450, PS min: 4-10 PS max: 12-20; EPAP min: 6-10; EPAP max: 10-16; AVAPS rate: 14 during sleep and as needed" On baseline O2, 4L at present. Titrate to maintain sats to prevent over oxygenation Discussed w/ Dr Durand 11/25 and ok w/ Augmentin/Doxy to complete course abx at discharge Rx for hypertonic saline at dc per pulm as well as Spiriva inhaler and dc prior Juan Antonioto Working on arranging home vent as above, awaiting insurance auth as patient agreeable (only able to tolerate minimal inpatient, but strongly encouraged). CM following (3) Pneumonia: Plan: see above, R sided. Denied aspiration however dysphagia at baseline/prior declined GI f/u and denying issues/no witnessed choking. Abx as outlined and on her usual O2 at present. Aspiration precautions to be maintained (4) Anemia: Plan: Hgb 9.3 on admission, around baseline compared to most recent labs, however see below. TSH wnl Iron studies checked w/ low iron to 10, trans % sat 3, ferritin 43 - Has completed Venofer x 3 doses while inpatient B12 was LOW at 107, ordered IM x 3 doses while inpatient and should continue 1000mcg PO at discharge Folate wnl Appeared slowly dropping over past couple of months. LARGE BROWN BM prior in stay but checked fecal occult for completeness which was positive and her home asa/eliquis on hold - of note, Eliquis recently started in August admit when admitted for afib/RVR but has been in SINUS RHYTHM since admission w/ PACs (appeared possible MAT on admission) but has been stable over past 72 hours and can downgrade off tele. Hgb improving on repeat, lasix as outlined above. No bleeding reported. Continue increased PPI and would continue BID at discharge and hold her aspirin/eliquis until discussed w/ PCP in follow up as could have slow bleed. No abdominal pain, renal function stable, BP w/o hypotension. CBC in AM (5) Afib: Plan: EKG w/ sinus tachy on admit. Suspected 2nd in sepsis/infection as above. Given now meds w/ improvement. CT head negative. TSH wnl above, recent dx afib w/ copd exacerbation/respiratory failure but has been NSR Eliquis/aspirin on hold due to + fecal occult testing and to discuss resuming with PCP. SCDs ordered Monitor K/Mag Has been stable on telemetry and will downgrade this afternoon (6) UTI (urinary tract infection): Plan: Possible given urine when EMS arrived initially, however patient denied any symptoms of such. ?cystitis. Placed on am Added amoxicillin for now as not covered w/ above Now switched to Augmentin as above which should cover RN to al pederson. Monitor for any retention issues (7) Diabetes type 2, uncontrolled: Plan: Last A1c 10.0, much worse than priors but repeat 8.9 On metformin 1gm BID, glipizide 5mg daily at baseline, held while inpatient Given glargine x 1 on admission for elevated BSGs (?recent steroid taper) Hx abdominal discomfort/possible chronic abdominal pains when I had her in February 2022. Prior notes EGD arrangement at [facility] was DECLINED despite reports of issues w/ dysphagia at baseline BSgs acceptable (8) Hypertension: Plan: BP 167/104 on admission and noted did forget meds. NOW meds provided, continued on usual metoprolol/cardizem, losartan. Lasix as outlined above with likely increase at dc and BP currently stable 130/65 (9) Acute exacerbation of chronic obstructive pulmonary disease: Plan: see above (10) Hypomagnesemia: Plan: stable, monitoring (11) Acute respiratory distress: Plan: resolved (12) Current smoker: Plan: smoking cessation encouraged (13) Metabolic encephalopathy: Plan: - resolved w/ tx as above. CT head negative. did have some hallucinations reported overnight but ao for myself today. ?delirium, opiate use (?taking more than rx at home), ?cefeprime abx switched to Augmentin as above frequent orientation/delirium prevention strategies Plan continued inpatient stay Abx switched to Augmentin and should complete course w/ Augmentin/Doxy at discharge. CM waiting for insurance auth for home vent and PT to re-eval in AM for assessment in steps to return home with home health. Xray lumbar spine ordered for completeness. Downgrading off telemetry this afternoon as long as no issues Admission and Anticipated Discharge Date Admission Date: November 21, 2023 Supervising Physician Co-Signing Physician Notes PA Supervision Note: I did not personally see or examine the patient today, but I verified all [place] points of [place]'s assessment and plan with the following exceptions/additions: None Subjective Eval this morning, reports feeling better/stable for discharge and wanting to go home but upon eval w/ PT prior to go home patient w/ knees buckling. Patient w/ chronic back pain, reports NOT worse than her typical back pain. No focal deficit. Labs improved/stable. Did have some hallucinations overnight, ?delirium vs abx related w/ cefepime. Switching to Augmentin and will dc Amox/cefepime, continue Doxy. Did discussed home w/ patient as she really wants to get discharged (noting hungry/wanting to cook for him) however she is worried about the steps at home as PT not feeling safe to eval today due to buckling. Discussed continued inpatient stay, check lumbar spine for completeness but will re-eval w/ therapy tomorrow. She is agreeable to home health, CM alerted. They are still waiting on auth for her home vent. Questions/concerns addressed at this time. Physical Exam 2 Physical Exam: General: chronically ill appearing female resting in bed, easily awoken and asking about discharge, NAD Head atraumatic, normocephcalic, mmm, trachea midline resp: RML crackles, no wheezing, on 3-4L NC cv: rrr, no significant mrg, no pitting edema/calf tenderness gi: +BS, soft/NT gu: pederson draining clear yellow urine (RN to remove this morning) msk/neuro: no focal deficit/loss of strength, dorsiflexion/plantar flexion intact, able to sit up from supine/standing without issue/increased pain (reported knee buckling with therapy later this morning) no increased tenderness to lumbar spine psych: alert to person/place/year (initially did say [place], but that's where she lives and when asked about hospital she said "[facility]") cooperative with exam Results & Data Results & Data Vital Signs (Past 12 Hours) Vital Signs Temp Pulse Pulse Resp BP BP Pulse Ox 11/25/23 07:11 62 18 96 11/25/23 03:24 36.6 C 61 16 136/76 98 11/24/23 22:26 36.6 C 66 16 112/62 92 11/24/23 22:24 66 26 H 96 11/24/23 22:01 62 11/24/23 20:00 O2 Del Method O2 Flow Rate 11/25/23 07:11 Nasal Cannula 3 11/25/23 03:24 Nasal Cannula 4.5 11/24/23 22:26 Nasal Cannula 4.5 11/24/23 22:24 3 11/24/23 22:01 11/24/23 20:00 Nasal Cannula 4 Laboratory Results 11/25/23 08:00 11/25/23 08:00 Mag 1.9 Diagnostic Findings Chest X-Ray 11/25/23 08:00 XR chest 2V PA/lateral CLINICAL HISTORY: f/u COMPARISON STUDY: Chest CT September 05, 2023. Chest radiograph November 24, 2023. FINDINGS: There is no pneumothorax. Small bilateral pleural effusions have increased. Right basilar opacity has improved. Severe emphysema is again noted. Cardiomediastinal silhouette is stable. There is no evidence for pulmonary edema. IMPRESSION: 1. Interval improvement in right lower lung airspace opacity. This favors a resolving infectious process. Continued radiographic follow-up to ensure complete resolution is recommended. 2. Increase in small bilateral pleural effusions. ACT 112: Negative or not required by law. Electronically signed by: Cheng Arevalo M.D. 11/25/2023 10:44 AM PG Care Time/CCT Total # of Minutes Spent Total Time Spent with Patient: Total time spent is greater than 50% in coordination of care (as documented) at patient's floor/unit and/or counseling patient: Coding Level of Care Code 20005 SUB INP/OBS CARE 3/50MIN Diagnoses Sepsis A41.9 Acute on chronic respiratory failure with hypoxia and hypercapnia J96.21; J96.22 Pneumonia J18.9 Laterality: right Lung location: lower lobe of lung Pneumonia type: due to unspecified organism Anemia D64.9 Anemia type: unspecified type Afib I48.91 UTI (urinary tract infection) N39.0 Diabetes type 2, uncontrolled E11.65 Glycemic state: with hyperglycemia Hypertension I10 Hypertension type: unspecified Acute exacerbation of chronic obstructive pulmonary disease J44.1 Hypomagnesemia E83.42 Acute respiratory distress R06.03 Current smoker F17.200 Metabolic encephalopathy G93.41 (3) Pneumonia Laterality: right Lung location: lower lobe of lung Pneumonia type: due to unspecified organism Qualified Code(s): J18.9 - Pneumonia, unspecified organism (4) Anemia Anemia type: unspecified type Qualified Code(s): D64.9 - Anemia, unspecified (7) Diabetes type 2, uncontrolled Glycemic state: with hyperglycemia Qualified Code(s): E11.65 - Type 2 diabetes mellitus with hyperglycemia (8) Hypertension Hypertension type: unspecified Qualified Code(s): I10 - Essential (primary) hypertension
[2023-11-25] MEDS: AMOXICILLIN 875 MG TAB PO SCH (07:58)
[2023-11-25] MEDS: buPROPion XL 150 MG TABCR PO SCH (07:58)
[2023-11-25] MEDS: dilTIAZem HCL 180 MG CAPCR PO SCH (07:59)
[2023-11-25] MEDS: CYANOCOBALAMIN (B-12) 500 MCG TABLET PO SCH (07:59)
[2023-11-25] MEDS: FOLIC ACID 1 MG TAB PO SCH (07:59)
[2023-11-25] MEDS: DOXYCYCLINE HYCLATE 100 MG CAP PO SCH ×2 (07:59→20:23)
[2023-11-25] MEDS: FLUTICASONE/VILANTEROL 100/25MCG 14 PUFFS/INHALER INH SCH (07:59)
[2023-11-25] MEDS: LOSARTAN POTASSIUM 50 MG TAB PO SCH (08:00)
[2023-11-25] MEDS: FUROSEMIDE 40 MG TAB PO SCH (08:00)
[2023-11-25] MEDS: PANTOprazole 40 MG TAB PO SCH ×2 (08:00→20:23)
[2023-11-25] MEDS: METOPROLOL SUCC 50MG EXT REL TAB PO SCH ×2 (08:00→20:23)
[2023-11-25] MEDS: UMECLIDINIUM BROMIDE 62.5MCG/BLISTER 7 PUFFS/INHALER INH SCH (08:00)
[2023-11-25] MEDS: LANTUS PER UNIT CHARGE SQ SCH (08:10)
[2023-11-25] MEDS: CEFEPIME 2,000 MG in SYRINGE 0 ML IV SCH (08:10)
[2023-11-25] MEDS: INSULIN ASPART PER UNIT CHARGE SC SCH ×4 (08:11→21:23)
[2023-11-25 08:21] LABS: Hematocrit (blood only) 29.4 % (37.0-47.0); Hemoglobin 8.7 g/dl (12.0-16.0); Mean Corpuscular Hemoglobin 26.2 pg (25.0-34.0); Mean Corpuscular Hgb Conc 29.6 g/dL (32.0-36.0); Mean Corpuscular Volume 88.6 fL (80.0-100.0); Mean Platelet Volume 9.4 fL (9.4-12.4); Platelet Count 440 K/uL (130-400); RDW Coefficient of Variation 17.7 % (11.5-14.5); Red Blood Count 3.32 M/uL (4.20-5.40); White Blood Count 8.09 K/ul (4.8-10.8)
[2023-11-25 08:32] LABS: BUN Creatinine Ratio 18.2 (10-20); Calcium 8.7 mg/dl (8.6-10.3); Creatinine Clr Calc Pharmacy 42.6 ml/min; Est GFR (African American) 58.5 ml/min; Est GFR (Non-African American) 50.5 ml/min; Magnesium 1.8 mg/dl (1.7-2.4); Potassium 4.3 mmol/L (3.5-5.1)
[2023-11-25] MEDS ORDERED: MAGNESIUM SULFATE / D5W 1 GM/100 ML BAG IV ONE (08:45)
--- NOTE | 2023-11-25 09:46 | Discharge Summary ---
Date of Service November 25, 2023 Admission HPI Per Admitting Provider 73yo female with end stage COPD/emphysema was brought in by EMS for call from reporting found down. Per discussion w/ , had been alert/oriented all week, doing well, making turkey/ham for holidays and even making casserole last evening around 7pm. He notes she was watching TV until at least 1am, and he notes he got up to urinate around quarter to 5 and found down in front of the sink and believes she was attempting to make coffee. He reports she was talking some but a little altered and he didn't want to get her up by himself and he called EMS. She is NOT on hospice, and he reports typically does well. He notes goal is to get home but discussed concerns for sepsis, possible pneumonia vs urinary source. Patient very sleepy in room but arousable to painful stimuli and falls back asleep. Nods head yes when asked about her legs being weak prior to fall/making coffee but not able to provide much information. She is not able to follow commands but has been moving around in bed without focal deficit. On BiPAP, breathing slightly fast but improved frmo this morning. Temp 38.4C, biofire testing negative. CXR w/ mildly progressed subsegmental R basilar opacities may represent atelectasis/scaring vs pneumonitis. Appears possible prior speech eval for esophageal dysphagia, will order diet w/ aspiration precautions for now. reports some bruising to her foot/swelling but reports improves with elevation at night. Denies trauma. Imaging negative for acute fracture. does note that she doesn't always remember her pills and may not have had them last night or this morning. Ordered pills for this morning, EKG. Discussed admission for abx/treatment possible infection and therapy, he would like home nursing again at ar. Questions/concerns addressed at present time. CT head/cervical spine pending for further evaluation, eliquis ordered for this evening but pending imaging may need held. Principal Diagnosis Sepsis, , possible pneumonia/UTI, Respiratory failure with hypercapnia Discharge Exam General: improved mentation, wondering if she can go home today, NAD HEENT: head normocephalic, pupils equal/reactive, mm stable resp: not tachypneic, able to speak in complete sentences, + cough/sputum production significant improvement/resolution in rhonchi/wheezing on exam, RML crackles, on 4-5L NC to maintain sats CV: RRR,+systolic murmur, no further pedal edema, pulses palpable GI: +BS, less distension (+BM this morning reported) : pederson draining CLEAR YELLOW URINE MSK/Neuro: nonfocal, no obvious bony step off, answering questions appropriately Psych: AOx3, cooperative with exam Discharge Data Allergies Allergy/AdvReac Type Severity Reaction Status Date / Time diflunisal AdvReac Intermediate HEART RACES Verified 09/21/23 18:00 Consultations 11/21/23 08:26 ED Decision to Admit Stat 11/22/23 08:45 Consult Pulmonology Routine Ordered Studies 11/21/23 06:47 CT cervical spine wo con Stat CT head/brain wo con Stat Hospital Course (1) Sepsis: (2) Acute on chronic respiratory failure with hypoxia and hypercapnia: (3) Pneumonia: (4) Anemia: (5) Afib: (6) UTI (urinary tract infection): (7) Diabetes type 2, uncontrolled: (8) Hypertension: (9) Acute exacerbation of chronic obstructive pulmonary disease: (10) Hypomagnesemia: (11) Acute respiratory distress: (12) Current smoker: (13) Metabolic encephalopathy: Plan Suspect sepsis 2nd to possible pneumonia vs UTI vs other given leukocytosis, fever 38C, tachycardia (however suspect due to missed meds) on admission. End stage COPD. Biofire negative. Confirmed w/ , NO intubation. Prior discussion about palliative however has reportedly been "doing well" at home and cooking/baking, watching TV til 1am prior to being found down when when to use bathroom at 445am and thought she got up to make coffee and was weak/found on the ground VBG w/ CO2 retention, placed on BiPAP in ER. At baseline, chronic resp failure/end stage COPD on supplemental O2 4L at baseline (also still smokes, and suspect does NOT wear all the time) Procal 0.2, lactic wnl WBC 18k w/ temp 38.[address] head/cervical spine negative for acute process CXR w/ subsegmental R basilar opacities, ?atelectasis vs scarring vs pneumonitis Placed on Cefepime/Doxy for pneumonia coverage. MRSA nares NEGATIVE WBC now wnl, no further fevers. Blood cultures remain NGTD Pulm consulted, suspected pneumonia, continue abx -Arranging for NIMV at discharge due to chronic respiratory failure consequent to COPD, -Mucomyst while inpatient and hypertonic saline to help clear secretions. Continue pulmonary toilet -Per pulm discussion morning 11/24, recs to send RX for Hypertonic saline nebs at dc (she did recently get Atrovent/albuterol neb/machine this past week) -Also to change to Spiriva in place of stiolto at discharge I suspected volume overload from IVF on admission for sepsis in patient w/ CHF on diuretics w/ 20mg po lasix at baseline. Checked BNP, elevated. EF normal on ECHO - usual 20mg PO lasix on 11/23 but given lasix 40mg IV as well due to exam/congestion IMPROVEMENT in rales/wheezing following and 1000cc clear yellow urine output in pederson Repeat lasix 40mg IV for for this morning and switched to 40mg PO daily for tomorrow and likely would continue increased dose at discharge to maintain euvolemia Smoking cessation to be encouraged Supplemental O2 to maintain sats -- presently 4.5L (baseline 4L) C2V ordered for AM Chronic Respiratory Failure with Hypoxia and Hypercapnia Baseline 4L NC Prior recs for BiPAP in 2019 CO2 retention as above on admission on VBG, tx as outlined. Pulmonology consulted, ABG w/ elevated CO2 as well following intervention, requiring treatment w/ NIMV at discharge. Patient agreeable Per pulm, patient now requires a noninvasive home ventilator. "Bilevel therapy with and without a rate would be ineffective as patient requires a volume targeted mode. -Ventilation is required to decrease work of breathing and improve pulmonary status. Interruption of ventilator support would lead to decline of health status. -Patient's pCO2 was 48 on ABG on 11/22/2023 her FEV1 is 48% predicted on 01/17/2020 -NIMV settings should be AVAPS-AE; Breath rate: auto; Inspiratory time:auto; Sigh: off; Tidal Volume: 350-450, PS min: 4-10 PS max: 12-20; EPAP min: 6-10; EPAP max: 10-16; AVAPS rate: 14 during sleep and as needed" --> Dc on course Augmentin/Doxy to cover pulm (and urine). Some c onfusion/hallucinations overnight. ?Delirium vs opiate medications vs not using device overnight. UTI - possible given urine when EMS arrived initially, however patient denied any symptoms of such. ?cystitis. Placed on am Added amoxicillin for now as not covered w/ above. If dc on Augmentin for pulm coverage, should cover Voiding trial prior to dc in AM Consider completing course at dc for pulm/urine coverage w/ Augmentin. Would also complete doxy total 5 days for atypical coverage Anemia Hgb 9.3 on admission, around baseline compared to priors IVF as above on admission for sepsis and hgb down to 8s on repeat and iron studies/b12/folate checked for completeness Iron studies checked --Iron LOW 10, transferrin % sat 3, ferritin only 43. Ve nofer 300mg IV x 3 doses (completed 11/23) B12 LOW 107, placed on IM x 3 days and continues on 1000mcg daily PO which should be continued at discharge Folate wnl Hgb to 7.8 off IVF on 11/23 + fecal occult testing w/ formed brown BM AM 11/23 and could be slow due to home aspirin/eliquis (vs just low from dilution/overloaded state) which have been placed on hold for now, SCDs added for DVT prophylaxis PPI increased to BID and would continue at dc Hgb stable/improved to 8.2 Timing to resume TBD at discharged given no active bleeding. Patient declined f/u arrangement for EGD in past when I had her in February 2022 for complaints of dysphagia but can be discussed/arranged at discharge if aggreeable CBC in AM --> Patient declined GI f/u. Discussed w/ PCP. TO continue to hold her eliquis/aspirin until seen by PCP. Has remained in NSR while inpatient (noting recent admission in August w/ resp exacerbation and has had slow drop in hgb since that time) . Continue PPI BID at discharge. Afib EKG w/ sinus tachy on admit. Suspected 2nd in sepsis/infection as above. Given now meds CT head negative. TSH wnl Keeping mag/K replete, stable on repeat labs Eliquis was continued but +FOCB as above, placed on hold and monitoring ability to resume. SCDs ordered in meantime Monitor on telemetry Metabolic Encephalopathy - resolved w/ tx as above. CT head negative. HTN BP 167/104 on admission and noted did forget meds. NOW meds provided, continued on usual metoprolol/cardizem, losartan. Lasix as outlined above with likely increase at dc DM II Last A1c 10.0, much worse than priors but repeat 8.9 On metformin 1gm BID, glipizide 5mg daily at baseline, held while inpatient Given glargine x 1 on admission for elevated BSGs (?recent steroid taper) Hx abdominal discomfort/possible chronic abdominal pains when I had her in February 2022. Prior notes EGD arrangement at ar was DECLINED despite reports of issues w/ dysphagia at baseline BSgs acceptable PT/OT consulted Patient is hopeful for ar / if arrangements made Discharge Plan Discharge Items Patient Disposition: Home - Self-Care Reason For Visit: AMS, SEPSIS, POSSIBLE PNEUMONIA Discharge Diagnosis: Sepsis due to pneumonia vs aspiration pneumonia, possible UTI Condition on Discharge: Fair Goals: You have been hospitalized for an acute medical problem. During your stay at [facility], we have made an effort to correct the problem that brought you to the hospital while keeping you as comfortable as possible. Medications were used to bring your condition under control and your discharge instructions will include directions for any medications you should take after leaving the hospital. Please make sure you see your Primary Care Provider as part of your follow up plan. Activity: Resume your previous activity Non-emergency contact: Primary Care Provider and Chain Saw Mechanic Call non-emergency contact if: you have any medication questions, your symptoms worsen and you have a fever Follow-up/Referrals: Edilson Durand MD, FCCP [Physician] - Rosi Borges CRNP [Primary Care Provider] - Diet: Carb Consistent or DM2 and Heart Healthy Fluids: 2000ml (8 cups) Addtl Attending Provider Instructions: You have been hospitalized after being found down by your and found to be in respiratory failure with concerns for sepsis and infection and placed on a BiPAP to help you with breathing. Imaging of the head was negative for acute stroke. Chest imaging was concerning for possible pneumonia process and we have given you antibiotics and you are being sent home on Augmentin twice daily for another days to complete the course and Doxycycline twice daily for total 5 days (last day November 26). Please take these with glass of water to prevent any swallowing issues. Your urine showed some bacteria however it is covered with the current antibiotics. You were given breathing treatments and evaluated by the lung doctors and they are recommending you have Stiolto inhaler in REPLACEMENT for your spiriva and spiriva has been discontinued. They would like you to continue hypertonic saline nebulizer treatments with your other nebulizers twice daily to help clear up any mucus plugging. Your carbon dioxide levels have been elevated which can worsen confusion and your respiratory failure is at a point where you should be using a noninvasive ventilator machine at home when sleeping or napping to prevent these levels from going too high and causing further problems. We have made arrangements for this to be arranged and delivered to you at discharge. Your Lasix (furosemide) water pill has been increased to 40mg once daily to help prevent any swelling/heart failure symptoms. Your stool had microscopic blood present and your Eliquis and aspirin were placed on hold and you were given iron in the IV for replacement as well as shots of B12 to help boost your blood counts as these have been low. You should continue oral B12 supplementation daily. You should continue to hold your eliquis and aspirin until discussed with primary care in follow-up. Your pantoprazole (Protonix) for reflux has been increased to twice daily to help prevent any bleeding issues and should be continued twice daily at discharge. You should talk with your family doctor about considering outpatient gastroenterology evaluation for the microscopic blood as you were previously recommended to have follow up with them for EGD to look into your swallowing difficulties at times. You should follow up with primary care to monitor your status after discharge in the next 7-10 days. Please return to the ER with any worsened breathing, fever, chest pain, abdominal pain or for any other symptoms concerning for you. Quiting smoking is HIGHLY recommended as this will only continue to worsen the disease process/cause complications. It has been a pleasure being a part of the medical team providing for you while you have been in the hospital. Take care! Addtl Automation Clerk Provider Instructions: Call 911 and go to the Emergency Room if: * You have tightness or pain in your chest that does not go away with rest or Nitroglycerin * You are very short of breath even with rest Call your doctor if any of the following symptoms or problems start or get worse: * Shortness of breath or difficulty breathing * Wake up at night short of breath * Chest pain * Cough * Swelling of your hands, fee, or legs * More fatigued or tired with your normal activity * Palpitations - sudden fast heart beats WEIGHT * Weigh yourself every morning after using the bathroom. * Use the same scale. * Wear the same amount of clothing. * Write your weight down on your chart. * Call your doctor if you gain more than 2-3 pounds in 1-2 days. MEDICATIONS * Use this discharge instruction sheet for instructions. * Take your medications at the time your doctor ordered. * Do not skip a dose of your medicines. * If you miss a dose of medicine, take as soon as possible, but DO NOT DOUBLE A DOSE. * Read your medicine information when you get home. * Know all of the side effects of your medicine. * Call your doctor's office if you have any side effects. * Be sure all of your doctors know what medicine and herbs you take (including cold, flu, and herbal medicine). * Pain Medicine: If you do not get relief from your pain, please call your doctor for help. Take the following with you to your follow-up doctor appointments: * Weight Chart * Medication List * List of questions Do not drink excessive alcohol, beer or wine. Pending Studies at Discharge: Yes Studies:: Blood cultures -- no growth to date x 48 hours Stand-Alone Forms: My [facility] the grafter, Smoking Cessation Medications and DC Order Prescriptions: New furosemide 40 mg Tablet 40 mg PO QAM Qty: 30 0RF doxycycline hyclate 100 mg Capsule 100 mg PO BID Qty: 3 0RF sodium chloride 7 % Solution For Nebulization 4 ml NEB BIDR Qty: 240 0RF cyanocobalamin (vitamin B-12) 500 mcg Tablet 1,000 mcg PO QAM Qty: 30 0RF Spiriva Respimat 1.25 mcg/actuation mist 2 puff inhalation DAILY Qty: 4 0RF amoxicillin-pot clavulanate 875-125 mg tablet 1 tab PO BID 3 Days Qty: 6 0RF Continued albuterol sulfate [Ventolin HFA] 90 mcg/actuation HFA aerosol inhaler 2 puff INHALATION Q6 PRN (Reason: Shortness Of Breath Or Wheezing) metformin 1,000 mg tablet 1,000 mg PO BID (DME) blood-glucose meter [OneTouch Verio Meter] Misc See Rx Instructions .ROUTE .MEDSUPPLY Qty: 1 0RF Rx Instructions: to test blood sugar 1-2 times/day (DME) OneTouch Verio test strips Strip See Rx Instructions .ROUTE .MEDSUPPLY Qty: 50 3RF Rx Instructions: test blood sugar 1-2 times per day (DME) lancets [OneTouch Delica Lancets] 33 gauge misc See Rx Instructions .ROUTE .MEDSUPPLY Qty: 100 3RF Rx Instructions: test sugar 1-2 times per day losartan 50 mg tablet 50 mg PO QAM folic acid 1 mg tablet 1 mg PO QAM rosuvastatin 20 mg tablet 20 mg PO DAILY bupropion HCl 150 mg tablet extended release 24 hr 150 mg PO DAILY budesonide-formoterol 160-4.5 mcg/actuation HFA aerosol inhaler 2 puff INHALATION BID ipratropium-albuterol 0.5 mg-3 mg(2.5 mg base)/3 mL solution for nebulization 3 ml inhalation Q4H PRN (Reason: shortness of breath) Qty: 90 0RF Rx Instructions: until breathing returns to target peak flow/parameters diltiazem HCl 180 mg Capsule,Extended Release 24hr 180 mg PO QAM Qty: 30 5RF glipizide 5 mg tablet 5 mg PO DAILY Qty: 30 0RF Rx Instructions: please take while on prednisone metoprolol succinate 50 mg tablet extended release 24 hr 50 mg PO BID Qty: 60 5RF oxycodone 5 mg tablet 5 mg PO TID PRN (Reason: Pain) Qty: 30 0RF Changed pantoprazole 40 mg Tablet,Delayed Release (Dr/Ec) 40 mg PO BID Qty: 60 0RF Held aspirin [Uri Low Dose Aspirin] 81 mg Tablet,Delayed Release (Dr/Ec) 81 mg PO QAM Hold Instructions: Resume on 11/28/23. hold until seen by primary care Eliquis 5 mg Tablet 5 mg PO BID Qty: 60 5RF Hold Instructions: Resume on 11/28/23. hold until discussed with primary care Discontinued furosemide 20 mg tablet 20 mg PO DAILY Stiolto Respimat 2.5-2.5 mcg/actuation mist 2 puff INHALATION QAM prednisone 10 mg tablet See Rx Instructions .ROUTE .COMPLEX Qty: 40 0RF Rx Instructions: 4 a day x 4 d>3 a day x 4 d>2 a day x 4 d>1 a day Krames/Other Patient Handouts: High Blood Sugar (Hyperglycemia), Managing Type 2 Diabetes Admission Data Admit Date/Time: 11/21/23 10:09 Attending Provider: Keren Kraus Admit Provider: Timothy Richards Primary Care Provider: Rosi Borges Other Providers: Timothy Richards; Edilson Durand Coding Diagnoses Sepsis A41.9 Acute on chronic respiratory failure with hypoxia and hypercapnia J96.21; J96.22 Pneumonia J18.9 Laterality: right Lung location: lower lobe of lung Pneumonia type: due to unspecified organism Anemia D64.9 Anemia type: unspecified type Afib I48.91 UTI (urinary tract infection) N39.0 Diabetes type 2, uncontrolled E11.65 Glycemic state: with hyperglycemia Hypertension I10 Hypertension type: unspecified Acute exacerbation of chronic obstructive pulmonary disease J44.1 Hypomagnesemia E83.42 Acute respiratory distress R06.03 Current smoker F17.200 Metabolic encephalopathy G93.41
--- NOTE | 2023-11-25 10:45 | XRay Report ---
XR chest 2V PA/lateral CLINICAL HISTORY: f/u COMPARISON STUDY: Chest CT September 05, 2023. Chest radiograph November 24, 2023. FINDINGS: There is no pneumothorax. Small bilateral pleural effusions have increased. Right basilar o pacity has improved. Severe emphysema is again noted. Cardiomediastinal silhouette is stable. There i s no evidence for pulmonary edema. IMPRESSION: 1. Interval improvement in right lower lung airspace opacity. This favors a resolving infectious proc ess. Continued radiographic follow-up to ensure complete resolution is recommended. 2. Increase in small bilateral pleural effusions. ACT 112: Negative or not required by law. Electronically signed by: Cheng Arevalo M.D. 11/25/2023 10:44 AM
--- NOTE | 2023-11-25 14:28 | Pharmacy Report ---
Pharmacy Glycemic Short Note 2 - Date of Service November 25, 2023 - Glycemic Short BSG Results (Last 24 hours): 11/24/23 11/24/23 11/25/23 16:23 19:56 07:29 Glucose POC Glucose 108 H 209 H 189 H 11/25/23 11/25/23 08:00 11:22 Glucose 178 H POC Glucose 133 H OUTPATIENT ANTIDIABETIC REGIMEN: * Metformin 1g PO BID * Glipizide 5mg PO Daily ASSESSMENT: 11/25: * Daniella received 38 units of insulin yesterday (20 basal) * Fasting BSG this AM elevated, increase basal insulin by 25% * She was switched to Augmentin/doxycylcine in anticipation of discharge * BSGs increased postprandially, tighten carb coverage and and loosen correction factor to prevent overcorrection. Increase high end of goal range to prevent overcorrection. 11/22: * 73-year-old female presented to the hospital with complaints of SOB, PMH: COPD, HTN, DL, chronic hypoxic respiratory failure on 3 L oxygen at home, chronic low back pain, type 2 DM on oral medications at home, uncontrolled. * Pulmonary consulted for worsening shortness of breath, on IV antibiotics for possible RLL pneumonia. * Patient received 17 units insulin yesterday, 10 units basal, fasting BSG 236mg/dl - increase basal and tighten CF/CR, titrate to goal BSG. PLAN FOR INPATIENT GLYCEMIC CONTROL: * Hold outpatient oral diabetes medications * Basal insulin * Lantus 25 units SQ QAM * Bolus insulin * NovoLog per scale ACHS or Q6hrs while NPO * Goal Range: Low 110 mg/dL - High 140 mg/dL * Correction Factor: 25 mg/dL/unit * Nutritional / Prandial insulin per carb ratio of 1 unit per 6 grams CHO consumed
--- NOTE | 2023-11-25 14:29 | XRay Report ---
XR lumbar spine 2-3V CLINICAL HISTORY: fall, knees buckling COMPARISON STUDY: Lumbar spine radiographs September 27, 2020. Lumbar spine CT May 30, 2021. FINDINGS: Cholecystectomy clips are incidentally noted. Bowel gas pattern is normal. Infrarenal abdom inal aortic aneurysm is suboptimally assessed by radiography. This measures approximately 4.6 cm in c aliber. There is mild lumbar spine dextroscoliosis. Anterolisthesis of L4 and L5 is unchanged. There is severe multilevel facet arthrosis and moderate degenerative disc disease. There is no lumbar spine fracture. IMPRESSION: 1. No lumbar spine fractures. 2. Moderate degenerative disc disease and severe facet arthrosis within the lumbar spine. 3. Redemonstration of an infrarenal abdominal aortic aneurysm, suboptimally assessed radiography. ACT 112: Negative or not required by law. Electronically signed by: Cheng Arevalo M.D. 11/25/2023 2:28 PM
[2023-11-25] MEDS: AMOXICILLIN/CLAVULANATE 875 MG TAB PO SCH (16:57)
[2023-11-26] MEDS: oxyCODONE HCL IR 5 MG TAB (IMMEDIATE RELEASE) PO PRN ×3 (01:27→15:29)
[2023-11-26 02:36] LABS: A calco-baum cmplx NotReported Not Detected (NotDetected); Bact fragilis Not Reported Not Detected (NotDetected); Blood Culture Id Panel PCR Panel Negative (NotDetected); C auris Not Reported Not Detected (NotDetected); Calbicans Not Reported Not Detected (NotDetected); Candida glabrata Not Reported Not Detected (NotDetected); Candida krusei Not Reported Not Detected (NotDetected); Cneoformans/gatti Not Reported Not Detected (NotDetected); Cparapsilosis Not Reported Not Detected (NotDetected); E cloacae compx Not Reported Not Detected (NotDetected); Efaecalis Not Reported Not Detected (NotDetected); Efaecium Not Reported Not Detected (NotDetected); Enterobacterales Not Reported Not Detected (NotDetected); Escherichia coli Not Reported Not Detected (NotDetected); H influenzae Not Reported Not Detected (NotDetected); K aerogenes Not Reported Not Detected (NotDetected); Koxytoca Not Reported Not Detected (NotDetected); Kpneumoniae grp Not Reported Not Detected (NotDetected); Lmonocyt Not Reported Not Detected (NotDetected); N meningitidis Not Reported Not Detected (NotDetected); P aeruginosa Not Reported Not Detected (NotDetected); Proteus spp Not Reported Not Detected (NotDetected); Salmonella spp Not Reported Not Detected (NotDetected); Smarcescens Not Reported Not Detected (NotDetected); Staph lugdunensis Not Reported Not Detected (NotDetected); Staph spp. Not Reported Not Detected (NotDetected); Staphaureus Not Reported Not Detected (NotDetected); Staphepi Not Reported Not Detected (NotDetected); Stenmaltophilia Not Reported Not Detected (NotDetected); Strep agal(GrpB) Not Reported Not Detected (NotDetected); Strep pneum Not Reported Not Detected (NotDetected); Strep pyog (GrpA) Not Reported Not Detected (NotDetected); Strep spp Not Reported Not Detected (NotDetected)
[2023-11-26] MEDS: ACETYLCYSTEINE 20% INHAL SOLN 4ML ***DISPENSED BY RESP. INH SCH (05:52)
[2023-11-26] MEDS: SODIUM CHLOR 7% 4 ML NEB NEB SCH (05:53)
[2023-11-26] MEDS: ALBUT/IPRATROP 3MG/0.5MG NEB 3 ML VIAL INH PRN (05:53)
[2023-11-26] MEDS ORDERED: ACETAMINOPHEN 325 MG TAB PO PRN (06:38)
[2023-11-26 07:21] LABS: Hematocrit (blood only) 29.9 % (37.0-47.0); Hemoglobin 8.5 g/dl (12.0-16.0); Mean Corpuscular Hemoglobin 25.5 pg (25.0-34.0); Mean Corpuscular Hgb Conc 28.4 g/dL (32.0-36.0); Mean Corpuscular Volume 89.8 fL (80.0-100.0); Nucleated RBC # (auto) 0.02 K/uL (0.00-0.12); Nucleated RBC % (auto) 0.2 %; Platelet Count 475 K/uL (130-400); RDW Coefficient of Variation 17.3 % (11.5-14.5); RDW Standard Deviation 56.2 fL (36.4-46.3); Red Blood Count 3.33 M/uL (4.20-5.40); White Blood Count 8.22 K/ul (4.8-10.8)
[2023-11-26 07:37] LABS: BUN Creatinine Ratio 18.5 (10-20); Calcium 8.6 mg/dl (8.6-10.3); Creatinine Clr Calc Pharmacy 43.4 ml/min; Est GFR (African American) 59.8 ml/min; Est GFR (Non-African American) 51.6 ml/min; Magnesium 1.8 mg/dl (1.7-2.4)
[2023-11-26] MEDS: FOLIC ACID 1 MG TAB PO SCH (07:59)
[2023-11-26] MEDS: FUROSEMIDE 40 MG TAB PO SCH (07:59)
[2023-11-26] MEDS: METOPROLOL SUCC 50MG EXT REL TAB PO SCH (07:59)
[2023-11-26] MEDS: dilTIAZem HCL 180 MG CAPCR PO SCH (08:00)
[2023-11-26] MEDS: CYANOCOBALAMIN (B-12) 500 MCG TABLET PO SCH (08:00)
[2023-11-26] MEDS: AMOXICILLIN/CLAVULANATE 875 MG TAB PO SCH ×2 (08:00→16:49)
[2023-11-26] MEDS: PANTOprazole 40 MG TAB PO SCH (08:00)
[2023-11-26] MEDS: LOSARTAN POTASSIUM 50 MG TAB PO SCH (08:00)
[2023-11-26] MEDS: DOXYCYCLINE HYCLATE 100 MG CAP PO SCH (08:00)
[2023-11-26] MEDS: buPROPion XL 150 MG TABCR PO SCH (08:01)
[2023-11-26] MEDS: UMECLIDINIUM BROMIDE 62.5MCG/BLISTER 7 PUFFS/INHALER INH SCH (08:01)
[2023-11-26] MEDS: FLUTICASONE/VILANTEROL 100/25MCG 14 PUFFS/INHALER INH SCH (08:01)
[2023-11-26] MEDS: INSULIN ASPART PER UNIT CHARGE SC SCH ×3 (08:08→16:55)
[2023-11-26] MEDS: LANTUS PER UNIT CHARGE SQ SCH (08:08)
--- NOTE | 2023-11-26 13:21 | Discharge Summary ---
Discharge Summary Date of Service November 26, 2023 Notes For Next Care Provider Medication Changes From Visit Augmentin bid x 2 days DOxy bid x 2 days Spiriva started, Stioloto discontinued Added hypertonic saline nebs HOLD ELiquis and ASA due to hemoccult positive stool and worsening anemia Added B12 1000mcg po daily Increased lasix to 40mg po daily Principal Dx & Hospital Course #1 = Principal Diagnosis (1) Sepsis: Suspect sepsis 2nd to possible pneumonia vs UTI vs other given leukocytosis, fever 38C, tachycardia (however suspect due to missed meds) on admission. End stage COPD. Biofire negative. Confirmed w/ , NO intubation. Prior discussion about palliative however has reportedly been "doing well" at home and cooking/baking, watching TV til 1am prior to being found down when when to use bathroom at 445am and thought she got up to make coffee and was weak/found on the ground VBG w/ CO2 retention, placed on BiPAP in ER. At baseline, chronic resp failure/end stage COPD on supplemental O2 4L at baseline (also still smokes, and suspect does NOT wear all the time) Procal 0.2, lactic wnl WBC 18k w/ temp 38.[address] head/cervical spine negative for acute process CXR w/ subsegmental R basilar opacities, ?atelectasis vs scarring vs pneumonitis IV Cefepime/Doxy for pneumonia coverage. MRSA nares NEGATIVE WBC now wnl, no further fevers. Blood cultures remain NGTD Pulm consulted. See notes. Suspected R sided pneumonia, abx/nebs as outlined and arranging for NIMV at ok 2nd to chronic respiratory failure consequent to COPD, Mucomyst/hypertonic saline while inpatient to help clear secretions. Volume overloaded during stay following IVF resuscitation initially for concerns for sepsis in CHF patient on diuretics at baseline w/ lasix 20mg PO daily. Suspect also could have some noncompliance at home/increased salt load over the holidays and did have some LE edema initially. BNP checked and was elevated. ECHO w/ normal EF Usual 20mg PO lasix on 11/23 but given lasix 40mg IV as well due to exam/congestion and continued through 11/24 with improvement in rales/wheezing following administration Switched to lasix 40mg PO daily for 11/25 and planning to increase to 40mg PO daily at discharge. Abx changed to Augmentin in place of the cefepime and continue Doxy PO BID for total 7 days (2) Acute on chronic respiratory failure with hypoxia and hypercapnia: Chronic Respiratory Failure with Hypoxia and Hypercapnia Baseline 4L NC. Smoking cessation encouraged. Prior recs for BiPAP in 2019, chronic CO2 retention, elevated on VBG/ABG during inpatient stay Pulm on consult as above patient now requires a noninvasive home ventilator. "Bilevel therapy with and without a rate would be ineffective as patient requires a volume targeted mode. -Ventilation is required to decrease work of breathing and improve pulmonary status. Interruption of ventilator support would lead to decline of health status. 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 Denied aspiration however dysphagia at baseline/prior declined GI f/u and denying issues/no witnessed choking. Abx as outlined and on her usual O2 (4) Anemia: Hgb 9.3 on admission, around baseline compared to most recent labs but has trended downward marcy starting on Eliquis in Aug for PAF TSH wnl Iron studies checked w/ low iron to 10, trans % sat 3, ferritin 43- Has completed Venofer x 3 doses while inpatient B12 was LOW at 107, ordered IM x 3 doses while inpatient and should continue 1000mcg PO at discharge Folate wnl LARGE BROWN BM prior in stay but checked fecal occult which was positive and her home asa/eliquis on hold has been in SINUS RHYTHM since admission w/ PACs (appeared possible MAT on admission) so low risk for CVA while off anticoagulation Continue increased PPI BID at discharge and hold her aspirin/eliquis until discussed w/ PCP in follow up as could have slow bleed. follow CBC as outpt, see GI (5) Afib: EKG w/ sinus tachy on admit. Suspected 2nd in sepsis/infection as above. No afib during this admission had brief Afib in hospitalization in Aug and was symptomatic with that HOLD ELiquis for occult GI bleeding and worsening anemia Recommend antiarrhythmics or ablation in future if has recurrence until GI bleeding resolved (6) UTI (urinary tract infection): Enterococcus UTI, treated with Amox--> AUgmentin on discharge to also cover for PNA (7) Diabetes type 2, uncontrolled: Last A1c 10.0, much worse than priors but repeat 8.9 On metformin 1gm BID, glipizide 5mg daily at baseline, held while inpatient and can resume on discharge used Lantus and Novolog while here (8) Hypertension: BPs stable continued on usual metoprolol/cardizem, losartan. Lasix as outlined above with likely increase at dc (9) Acute exacerbation of chronic obstructive pulmonary disease: see above (10) Current smoker: smoking cessation encouraged (11) Metabolic encephalopathy: - resolved w/ tx as above fo rinfection, some hospital delirium played a role as well. CT head negative. Plan Dispo-dc to home with home health. PT recommending rehab but she declines to go. Home health arranged, she is aware this is against our recommendation Discharge Exam Constitutional WD/WN, vitals as above Respiratory normal respiratory effort and + cough; not tachypneic Auscultation: lungs clear to auscultation bilaterally and + diminished lung sounds (throughout) Cardiovascular RRR, no murmur, no edema Gastrointestinal (Abdomen) normal bowel sounds, soft, nontender, no hepatosplenomegaly Psychiatric A+Ox3, euthymic affect Updated Medication List Medication Instructions Recorded Confirmed Type albuterol sulfate 90 mcg/actuation 2 puff inhalation Q6 PRN Shortness 08/28/20 09/21/23 History aerosol inhaler (Ventolin HFA) Of Breath Or Wheezing aspirin 81 mg tablet,delayed 81 mg PO QAM 08/28/20 09/21/23 History release (Uri Low Dose Aspirin) metformin 1,000 mg tablet 1,000 mg PO BID 08/28/20 09/21/23 History blood sugar diagnostic ([employer] #50 ea 06/02/21 09/21/23 Rx Verio test strips) blood-glucose meter ([employer] #1 ea 06/02/21 09/21/23 Rx Verio Meter) lancets 33 gauge ([employer] #100 ea 06/02/21 09/21/23 Rx Lancets) tiotropium 2.5 mcg-olodaterol 2.5 2 puff inhalation QAM 09/02/21 09/21/23 History mcg/actuation mist for inhalation (Stiolto Respimat) folic acid 1 mg tablet 1 mg PO QAM 03/24/22 09/21/23 History losartan 50 mg tablet 50 mg PO QAM 03/24/22 09/21/23 History ipratropium 0.5 mg-albuterol 3 mg 3 ml inhalation Q4H PRN shortness 12/13/22 09/21/23 Rx (2.5 mg base)/3 mL nebulization of breath #90 mL soln bupropion HCl 150 mg 24 hr tablet, 150 mg PO DAILY 08/23/23 09/21/23 History extended release furosemide 20 mg tablet 20 mg PO DAILY 08/23/23 09/21/23 History rosuvastatin 20 mg tablet 20 mg PO DAILY 08/23/23 09/21/23 History pantoprazole 40 mg tablet,delayed 40 mg PO QAM #30 tabs 08/26/23 09/21/23 Rx release apixaban 5 mg tablet (Eliquis) 5 mg PO BID #60 tabs 09/10/23 09/21/23 Rx diltiazem HCl 180 mg 180 mg PO QAM #30 caps 09/10/23 09/21/23 Rx capsule,extended release 24 hr glipizide 5 mg tablet 5 mg PO DAILY #30 tabs 09/10/23 09/21/23 Rx metoprolol succinate 50 mg 50 mg PO BID #60 tabs 09/10/23 09/21/23 Rx tablet,extended release 24 hr oxycodone 5 mg tablet 5 mg PO TID PRN Pain #30 tabs 09/10/23 09/21/23 Rx prednisone 10 mg tablet See Rx Instructions .Route 09/10/23 09/21/23 Rx .COMPLEX #40 tabs budesonide-formoterol HFA 160 2 puff inhalation BID 09/21/23 09/21/23 History mcg-4.5 mcg/actuation aerosol inhaler amoxicillin 875 mg-potassium 1 tab PO BID 3 days #6 tabs 11/24/23 Rx clavulanate 125 mg tablet cyanocobalamin (vitamin B-12) 500 1,000 mcg (2 x 500 mcg) PO QAM #30 11/24/23 Rx mcg tablet tabs doxycycline hyclate 100 mg capsule 100 mg PO BID #3 caps 11/24/23 Rx furosemide 40 mg tablet 40 mg PO QAM #30 tabs 11/24/23 Rx sodium chloride 7 % for 4 ml NEB BIDR #240 mL 11/24/23 Rx nebulization tiotropium bromide 1.25 2 puff inhalation DAILY #4 grams 11/24/23 Rx mcg/actuation mist for inhalation (Spiriva Respimat) Hospital Stay Data Consultations 11/21/23 08:26 ED Decision to Admit Stat 11/22/23 08:45 Consult Pulmonology Routine Diagnostic Imagining Performed 11/21/23 06:47 CT cervical spine wo con Stat CT head/brain wo con Stat Pending Results Patient Have Any Pending Studies at Discharge: Yes (Blood cultures -- no growth to date ) Discharge Instructions Given to Patient (Per Discharging Provider) You have been hospitalized after being found down by your and found to be in respiratory failure with concerns for sepsis and infection and placed on a BiPAP to help you with breathing. Imaging of the head was negative for acute stroke. Chest imaging was concerning for possible pneumonia process and we have given you antibiotics and you are being sent home on Augmentin and doxycycline twice daily for two more days to complete the course. Please take these with glass of water to prevent any swallowing issues. Your urine showed some bacteria however it is also being treated with the current antibiotics. You were given breathing treatments and evaluated by the lung doctors and they are recommending you replace your Stiolto inhaler with Spiriva. They would like you to continue hypertonic saline nebulizer treatments with your other nebulizers twice daily to help clear up any mucus plugging. Your carbon dioxide levels have been elevated which can worsen confusion and your respiratory failure is at a point where you should be using a noninvasive ventilator machine at home when sleeping or napping to prevent these levels from going too high and causing further problems. We have made arrangements for this to be arranged and delivered to you at discharge. Your Lasix (furosemide) water pill has been increased to 40mg once daily to help prevent any swelling/heart failure symptoms. Your stool had microscopic blood present and your Eliquis and aspirin were placed on hold and you were given iron in the IV for replacement as well as shots of B12 to help boost your blood counts as these have been low. You should continue oral B12 supplementation daily. You should continue to hold your eliquis and aspirin until discussed with primary care in follow-up. Your pantoprazole (Protonix) for reflux has been increased to twice daily to help prevent any bleeding issues and should be continued twice daily at discharge. You should talk with your family doctor about considering outpatient gastroenterology evaluation for the microscopic blood as you were previously recommended to have follow up with them for EGD to look into your swallowing difficulties at times. You should follow up with primary care to monitor your status after discharge in the next 7-10 days. Please return to the ER with any worsened breathing, fever, chest pain, abdominal pain or for any other symptoms concerning for you. Quitting smoking is HIGHLY recommended as this will only continue to worsen the disease process/cause complications. It has been a pleasure being a part of the medical team providing for you while you have been in the hospital. Take care! Total Time Total Time Spent Total Time Spent (In Minutes): 40 min Coding Level of Care Code 33612 INP/OBS DISCH >30 MIN Diagnoses Sepsis A41.9 Acute on chronic respiratory failure with hypoxia and hypercapnia J96.21; J96.22 Pneumonia J18.9 Laterality: right Lung location: lower lobe of lung Pneumonia type: due to unspecified organism Anemia D64.9 Anemia type: unspecified type Afib I48.91 UTI (urinary tract infection) N39.0 Diabetes type 2, uncontrolled E11.65 Glycemic state: with hyperglycemia Hypertension I10 Hypertension type: unspecified Acute exacerbation of chronic obstructive pulmonary disease J44.1 Current smoker F17.200 Metabolic encephalopathy G93.41
--- NOTE | 2023-12-02 07:32 | Coding Query ---
CODING QUERY FOR UNCONTROLLED DIABETES To promote full compliance with coding requirements relating to patient care, provider participation is requested in all cases of medical records coder uncertainty. Please assist us with the question(s) below: Coding Question: The term uncontrolled Diabetes was used throughout the record. To be able to code this diagnosis properly, could you please clarify the diagnosis below: ( ) Uncontrolled Diabetes meaning hypoglycemia ( x ) Uncontrolled Diabetes meaning hyperglycemia ( ) Other (please specify) Principal Diagnosis: "that condition established after study, to be chiefly responsible for occasioning the admission of the patient to the hospital for care." Co-Existing Principal Diagnosis: "when two or more diagnoses equally meet the criteria for principal diagnosis as determined by the circumstances of admission, diagnostic work up, and/or therapy provided, and the Alphabetic Index, Tabular List, or another coding guideline does not provide sequencing direction, any one of the diagnoses may be sequenced first." "When the physician has documented what appears to be a current diagnosis in the body of the record, but has not included the diagnosis in the final diagnostic statement, the physician should be asked whether the diagnosis should be added." (Source Coding [facility] 2 QTR90. p3-4) GISELLA
== END 2023-11-26 19:40 | disposition home or self-care (01) | DRG 871 ==
LOC: ED 06:27 → 2S 10:09 → SUATTDRO 10:09 → 2S 11:21 → 3W 11-25 20:09

== ENCOUNTER 2023-12-17 19:09 | Inpatient (IN) ==
[2023-12-17] MEDS ORDERED: methylPREDNISolone 125 MG/2 ML VIAL IV STA (19:41)
[2023-12-17] MEDS ORDERED: guaiFENesin 600 MG TABCR PO STA (19:41)
[2023-12-17] MEDS ORDERED: ALBUT/IPRATROP 3MG/0.5MG NEB 3 ML VIAL NEB ONE (19:41)
[2023-12-17] MEDS ORDERED: SODIUM CHLORIDE 0.9% 500 ML IV ONE (19:42)
--- NOTE | 2023-12-17 19:45 | Emergency Department Note ---
Impression & Plan Acute on chronic respiratory failure with hypoxia and hypercapnia, Pneumonia, CHF (congestive heart failure), Pleural effusion, COPD with acute exacerbation, Hypomagnesemia ED Provider Note NAME: DANIELLA FLANNERY AGE: 73 SEX: F ARRIVES VIA: Ambulance INFORMANT: Patient ED PROVIDER(S): Walt Ferro MD CHIEF COMPLAINT: Shortness of breath PLAN: Disposition: Admit MEDICAL DECISION MAKING: The patient is a pleasant 73-year-old woman with a pmhx of chronic hypoxic respiratory failure, severe COPD, CHF, atrial fibrillation on Eliquis, hypertension, hyperlipidemia presents to the emergency department via EMS for worsening shortness of breath, cough, congestion with increased sputum production. The patient still smokes daily. She wears 4 L nasal cannula at home. She received 2 DuoNebs from EMS prior to arrival. Patient reports feeling generalized weakness. She denies chest pain or pain with inspiration. Denies nausea, vomiting, diarrhea or urinary symptoms. On evaluation the patient is acute on chronically ill-appearing but no distress, afebrile with blood pressure 150/60s and vital signs otherwise stable. O2 saturation is low to mid 90s on 6 L of oxygen mask. She appears euvolemic. She has mild bilateral lower extremity edema that is nonpitting. She has diminished breath sounds bilateral and monsivais with underlying wheeze and prolonged expiratory phase. Mild increased work of breathing but in NAD. EKG without overt acute ischemia. Per my preliminary independent interpretation, chest x-ray with venous congestion, interstitial thickening and right pleural effusion and bibasilar densities better characterized on CT imaging. WBC within normal limits with no neutrophilia or left shift. H/H similar to prior. Platelets similar to prior. Chemistry with bicarbonate of 36 suggestive of chronic hypercapnia. Lactic acid 0.9, within normal limits. Magnesium 1.5 with IV repletion initiated and electrolytes otherwise unremarkable. LFTs unremarkable. High-sensitivity troponin 5.0, within normal limits. BNP 218, consistent with patient's hypervolemia on imaging. Lipase is normal limits. Procalcitonin is not elevated. Respiratory viral panel/BioFire was negative. CTA of the chest was negative for PE. Severe emphysematous changes again noted. Dependent segment segmental changes predominantly in the inferior medial right middle lobe and right lower lobe are present. This may reflect atelectasis versus consolidation. Additional note is made of narrowing and asymmetric thickening with short segment opacification of the proximal subsegmental branches serving the right lower lobe suggestive of focal bronchitis. New moderate-sized right pleural effusion is seen with layering posteriorly. There is no loculation. Upon returning from CT the patient did transiently complain of chest pain and had a repeat EKG that was without overt acute ischemia. Work of breathing did also increase and Ventimask flow was increased to 15 L/min. Given her increased work of breathing likely related to lying supine for CT imaging, patient agreed to proceed with pain with BiPAP at this time. Given the patient's acute on chronic respiratory failure suspected to be multifactorial including component of COPD exacerbation, hypervolemia/CHF and pneumonia patient was for to hospital service for further management. Blood cultures were obtained and empiric treatment for pneumonia initiated with Zosyn and doxycycline. Additional treatment for COPD flare provided with Solu-Medrol guaifenesin, and hour-long DuoNeb. IV Lasix also ordered for treatment of patient's hypervolemia. Case was discussed with DEREK Acevedo hospitalist, who will evaluate the patient for admission. Triage Nursing notes reviewed and agree them. Prior/external medical records reviewed Vital Signs: reviewed Differential diagnosis: Reactive airway disease, pneumonia, pneumothorax, COPD, CHF, infections, cardiac ischemia, pulmonary embolism, musculoskeletal, gastrointestinal, as well as other pathologies. ER treatment provided: See below. Diagnostics interpreted by me: ECG: Sinus rhythm first-degree AV block, 81 bpm, premature supraventricular complexes, no overt ST elevation or depression, QTc 460, qrs 80. Cardiac Monitoring: An order for continuous cardiac monitoring was placed and demonstrated Sinus rhythm first-degree AV block, 81 bpm, premature supraventricular complexes. Laboratory studies: See below Imaging studies: See below Consultation(s): Case was discussed with DEREK Acevedo hospitalist, who will evaluate the patient for admission. HPI: The patient is a pleasant 73-year-old woman with a pmhx of chronic hypoxic respiratory failure, severe COPD, CHF, atrial fibrillation on Eliquis, hypertension, hyperlipidemia presents to the emergency department via EMS for worsening shortness of breath, cough, congestion with increased sputum production. The patient still smokes daily. She wears 4 L nasal cannula at home. She received 2 DuoNebs from EMS prior to arrival. Patient reports feeling generalized weakness. She denies chest pain or pain with inspiration. Denies nausea, vomiting, diarrhea or urinary symptoms. ROS: See above HPI for pertinent positives & negatives. A total of 10 systems reviewed and were otherwise negative. VITALS:See Below PHYSICAL EXAMINATION: GENERAL: Awake, alert, acute on chronically-appearing, in no distress HENT: Normocephalic, atraumatic. Oropharynx with dry mucous membranes and otherwise unremarkable. EYES: Normal conjunctiva. Sclera non-icteric. NECK: Supple. No nuchal rigidity. FROM. No JVD. RESPIRATORY: Diminished breath sounds bilateral and monsivais with underlying wheeze and prolonged expiratory phase. Mild increased work of breathing but in NAD. CARDIAC: Regular rate, normal rhythm. Extremities warm and well perfused. Pulses equal. ABDOMEN: Soft, non-distended. No tenderness to palpation. No rebound or guarding. No masses. RECTAL: Deferred. MUSCULOSKELETAL: Chest examination reveals no tenderness. The back is symmetrical on inspection without obvious abnormality. There is no CVA tenderness to palpation. No joint edema. LOWER EXTREMITIES: Calves are equal size bilaterally and non-tender. Mild non- pitting edema. No discoloration. NEURO: Normal sensorium. No sensory or motor deficits noted. SKIN: No rash or jaundice noted. ED COURSE: Critical Care: I have personally spent greater than 35 minutes of critical care time in the direct management of this patient. This includes bedside care, interpretation of diagnostic studies, and testing, discussion with consultants, patient, and family members, and other required patient management activities. This 35 minutes is in excess of all separately billable procedures. Walt Ferro MD Past Med/Surg History Medical History Severe muscle deconditioning COPD exacerbation Acute on chronic respiratory failure with hypoxia Chronic pain syndrome Abdominal pain Respiratory failure Hyperkalemia Diabetes type 2, uncontrolled Acute hypercapnic respiratory failure TATY (acute kidney injury) AMS (altered mental status) Syncope Acute UTI Acute hypotension Chronic kidney disease, stage 3a Acute kidney injury Acute exacerbation of chronic low back pain Candidiasis of mouth and esophagus Tobacco abuse DVT prophylaxis Diabetes mellitus COPD (chronic obstructive pulmonary disease) Hypertension Hyperlipidemia Acute on chronic respiratory failure with hypoxia and hypercapnia History of knee replacement Left peroneal nerve palsy AAA (abdominal aortic aneurysm) Diaphragmatic hernia (10/31/11) Chronic low back pain Surgical History History of bilateral oophorectomies History of appendectomy History of lithotripsy (~2007) H/O Achilles tendon repair (~2007) Hx of cholecystectomy H/O: hysterectomy Family History Other Family history non-contributory Social History Smoking Status: Current every day smoker Tobacco Type: Cigarettes Age Started Using Tobacco: 32; Cigarettes Per Day: 1/2 ppd; Second Hand Exposure: Yes; Do You Dip or Chew Tobacco: No; Tobacco Cessation Education Requested by Patient: No Hx Alcohol Use: No Hx Substance Use: No Preferred Language: [place]er Communication Ability: Effective [employer] Teacher Required: No Beliefs That Will Affect Care: None marital status: Current Living Situation: Spouse Current Living Situation Comment: Lives at home with How many Children do You have: 3 Other Information That Helps Us Care for You: No Feels Safe at Home: Yes Safety Concerns: Feels Safe At This Time Assistive Devices: Cane and Walker Allergies Allergies Allergy/AdvReac Type Severity Reaction Status Date / Time diflunisal AdvReac Intermediate HEART RACES Verified 12/08/23 16:50 Home Meds Home Medications Medication Instructions Recorded Confirmed albuterol sulfate 90 mcg/actuation 2 puff inhalation Q6 PRN Shortness 08/28/20 12/17/23 aerosol inhaler (Ventolin HFA) Of Breath Or Wheezing aspirin 81 mg tablet,delayed 81 mg PO QAM 08/28/20 12/17/23 release (Uri Low Dose Aspirin) metformin 1,000 mg tablet 1,000 mg PO BID 08/28/20 12/17/23 folic acid 1 mg tablet 1 mg PO QAM 03/24/22 12/17/23 losartan 50 mg tablet 50 mg PO QAM 03/24/22 12/17/23 bupropion HCl 150 mg 24 hr tablet, 150 mg PO DAILY 08/23/23 12/17/23 extended release rosuvastatin 20 mg tablet 20 mg PO DAILY 08/23/23 12/17/23 budesonide-formoterol HFA 160 2 puff inhalation BID 09/21/23 12/17/23 mcg-4.5 mcg/actuation aerosol inhaler Previous Rx's Medication Instructions Recorded blood sugar diagnostic (OneTouch #50 ea 06/02/21 Verio test strips) blood-glucose meter (OneTouch #1 ea 06/02/21 Verio Meter) lancets 33 gauge (OneTouch Delica #100 ea 06/02/21 Lancets) ipratropium 0.5 mg-albuterol 3 mg 3 ml inhalation Q4H PRN shortness 12/13/22 (2.5 mg base)/3 mL nebulization of breath #90 mL soln apixaban 5 mg tablet (Eliquis) 5 mg PO BID #60 tabs 09/10/23 diltiazem HCl 180 mg 180 mg PO QAM #30 caps 09/10/23 capsule,extended release 24 hr glipizide 5 mg tablet 5 mg PO DAILY #30 tabs 09/10/23 metoprolol succinate 50 mg 50 mg PO BID #60 tabs 09/10/23 tablet,extended release 24 hr oxycodone 5 mg tablet 5 mg PO TID PRN Pain #30 tabs 09/10/23 cyanocobalamin (vitamin B-12) 500 1,000 mcg (2 x 500 mcg) PO QAM #30 11/24/23 mcg tablet tabs furosemide 40 mg tablet 40 mg PO QAM #30 tabs 11/24/23 pantoprazole 40 mg tablet,delayed 40 mg PO BID #60 tabs 11/24/23 release sodium chloride 7 % for 4 ml NEB BIDR #240 mL 11/24/23 nebulization tiotropium bromide 1.25 2 puff inhalation DAILY #4 grams 11/24/23 mcg/actuation mist for inhalation (Spiriva Respimat) Results & Data (ED) Vital Signs Vital Signs - 24 hr 12/17/23 19:22 12/17/23 19:28 12/17/23 19:29 Temperature 36.8 C Temperature Source Oral Pulse Rate 80 88 Pulse Rate [Apical] Respiratory Rate 17 Respiratory Effort / Characteristics Non-Labored Spontaneous Pursed Lip Short of Breath SOB on Exertion Respiratory Depth Normal Respiratory Pattern Regular Blood Pressure 151/62 H Blood Pressure [Right Arm] Blood Pressure Mean 91 Blood Pressure Mean [Right Arm] Blood Pressure Position Semi-fowlers Blood Pressure Position [Right Arm] Pulse Oximetry 94 Oxygen Delivery Method Oxymask Oxymask Oxygen Flow Rate 6 6 Fraction of Inspired Oxygen Sepsis Recent Fever Within 48 Hours No Sepsis New/Unexplained Change in Mental Status N/A Sepsis Action Taken by Nursing No Action Required 12/17/23 21:40 12/17/23 22:19 Temperature Temperature Source Pulse Rate 97 H Pulse Rate [Apical] 107 H Respiratory Rate 29 H 24 Respiratory Effort / Characteristics Non-Labored Spontaneous Spontaneous Respiratory Depth Normal Normal Respiratory Pattern Regular Blood Pressure Blood Pressure [Right Arm] 165/71 H Blood Pressure Mean Blood Pressure Mean [Right Arm] 102 Blood Pressure Position Blood Pressure Position [Right Arm] Semi-fowlers Pulse Oximetry 91 94 Oxygen Delivery Method Oxymask Oxygen Flow Rate 15 Fraction of Inspired Oxygen 60 Sepsis Recent Fever Within 48 Hours Sepsis New/Unexplained Change in Mental Status Sepsis Action Taken by Nursing Laboratory Data Attestation: I reviewed the patient's lab results. 12/17/23 20:02 12/17/23 20:02 Lab Results 12/17/23 12/17/23 12/17/23 Range/Units 20:02 22:09 22:35 WBC 7.29 (4.8-10.8) K/ul RBC 3.42 L (4.20-5.40) M/uL Hgb 9.3 L (12.0-16.0) g/dl Hct 31.1 L (37.0-47.0) % MCV 90.9 (80.0-100.0) fL MCH 27.2 (25.0-34.0) pg MCHC 29.9 L (32.0-36.0) g/dL RDW Std Deviation 64.0 H (36.4-46.3) fL RDW Coeff of Dorcas 19.4 H (11.5-14.5) % Plt Count 401 H (130-400) K/uL MPV 10.0 (9.4-12.4) fL Immature Gran % (Auto) 0.7 % Neut % (Auto) 62.5 % Lymph % (Auto) 25.4 % [place] % (Auto) 7.8 % Eos % (Auto) 2.6 % Baso % (Auto) 1.0 % Neut # (Auto) 4.56 (1.40-6.50) K/uL Lymph # (Auto) 1.85 (1.20-3.40) K/uL [place] # (Auto) 0.57 (0.11-0.59) K/uL Eos # (Auto) 0.19 (0.00-0.50) K/uL Baso # (Auto) 0.07 (0.00-0.20) K/uL Immature Gran # (Auto) 0.05 (0.01-0.20) K/uL PT 11.6 (9.0-12.0) Seconds INR 1.1 (0.9-1.1) Sodium 140 (136-145) mmol/L Potassium 3.9 (3.5-5.1) mmol/L Chloride 99 (98-107) mmol/L Carbon Dioxide 36 H (21-32) mmol/L Anion Gap 5 (3-11) BUN 16 (6-23) mg/dl Creatinine 1.08 (0.6-1.2) mg/dl Est Cr Clr Drug Dosing 43.8 ml/min Est GFR ( Amer) 59.8 ml/min Est GFR (Non-Af Amer) 51.6 ml/min BUN/Creatinine Ratio 14.8 (10-20) Glucose 208 H (70-99(Fasting)) mg/dl Lactate 0.9 (0.4-2.0) mmol/L Calcium 8.7 (8.6-10.3) mg/dl Magnesium 1.5 L (1.7-2.4) mg/dl Total Bilirubin 0.2 (0.2-1.0) mg/dl AST 11 L (13-39) U/L ALT 11 (7-52) U/L Alkaline Phosphatase 79 (34-104) U/L Troponin I High Sens 5.0 (0-14) pg/ml B-Natriuretic Peptide 218 H (0-100) pg/ml Total Protein 6.0 (6.0-8.3) gm/dl Albumin 3.3 L (3.4-5.0) gm/dl Globulin 2.7 (2.5-4.0) gm/dl Albumin/Globulin Ratio 1.2 (0.9-2) Lipase 20 (11-82) U/L Procalcitonin < 0.05 (0-0.5) ng/ml Nasal Screen MRSA (PCR) Negative (Negative) Adenovirus (PCR) Not Detected (NotDetected) B. pertussis DNA (PCR) Not Detected (NotDetected) B.parapertussis DNA PCR Not Detected (NotDetected) C. pneumoniae DNA (PCR) Not Detected (NotDetected) Coronavirus OC43 (PCR) Not Detected (NotDetected) Coronavirus HKU1 (PCR) Not Detected (NotDetected) Coronavirus 229E (PCR) Not Detected (NotDetected) SARS-CoV-2 (PCR) Not Detected (NotDetected) Coronavirus NL63 (PCR) Not Detected (NotDetected) Human Metapneumovir PCR Not Detected (NotDetected) Influenza Type A (PCR) Not Detected (NotDetected) Influenza Type B (PCR) Not Detected (NotDetected) M. pneumoniae (PCR) Not Detected (NotDetected) Parainfluenza 1 (PCR) Not Detected (NotDetected) Parainfluenza 2 (PCR) Not Detected (NotDetected) Parainfluenza 3 (PCR) Not Detected (NotDetected) Parainfluenza 4 (PCR) Not Detected (NotDetected) RSV (PCR) Not Detected (NotDetected) Entero/Rhino (PCR) Not Detected (NotDetected) Administered Medications Discontinued Medications Albuterol (Albut/Ipratrop 3mg/0.5mg Neb 3 Ml Vial) 12 ml NEB ONE ONE; Protocol Stop: 12/17/23 19:42 Last Admin: 12/17/23 20:12 Dose: 12 ml Documented By: AB Furosemide (Furosemide 40 Mg/4 Ml Vial) 40 mg IV NOW STA Stop: 12/17/23 22:14 Last Admin: 12/17/23 23:12 Dose: 40 mg Documented By: MED Guaifenesin (Guaifenesin 600 Mg Tabcr) 1,200 mg PO NOW STA Stop: 12/17/23 19:42 Last Admin: 12/17/23 20:12 Dose: 1,200 mg Documented By: AB Sodium Chloride (Nss) 500 mls @ 999 mls/hr IV .Q31M ONE Stop: 12/17/23 20:12 Last Infusion: 12/17/23 20:48 Dose: Infused Documented By: Admin: 12/17/23 20:12 Dose: 999 mls/hr Documented By: AB Magnesium Sulfate/Dextrose (Magnesium Sulfate / D5w) 1 gm in 100 mls @ 100 mls/hr IV NOW STA Stop: 12/17/23 22:07 Last Infusion: 12/17/23 22:59 Dose: Infused Documented By: Admin: 12/17/23 21:43 Dose: 100 mls/hr Documented By: Piperacillin Sod/Tazobactam Sod (Zosyn) 4.5 gm in 100 mls @ 200 mls/hr IV NOW ONE Stop: 12/17/23 22:42 Last Infusion: 12/18/23 01:52 Dose: Infused Documented By: Admin: 12/17/23 23:18 Dose: 200 mls/hr Documented By: JUSTIN Doxycycline Hyclate 100 mg/ (Dextrose) 100 mls @ 50 mls/hr IV NOW STA Stop: 12/18/23 00:12 Last Infusion: 12/18/23 01:52 Dose: Infused Documented By: Admin: 12/17/23 22:59 Dose: 50 mls/hr Documented By: Magnesium Sulfate/Dextrose (Magnesium Sulfate / D5w) 1 gm in 100 mls @ 50 mls/hr IV ONE ONE Stop: 12/18/23 01:14 Last Infusion: 12/18/23 01:52 Dose: Infused Documented By: Admin: 12/17/23 23:58 Dose: 50 mls/hr Documented By: JUSTIN Ioversol (Optiray 320 125ml) 116 ml IV ONCE ONE Stop: 12/17/23 21:35 Last Admin: 12/17/23 21:27 Dose: 116 ml Documented By: SUE Methylprednisolone (Methylprednisolone 125 Mg/2 Ml Vial) 125 mg IV NOW STA Stop: 12/17/23 19:42 Last Admin: 12/17/23 20:12 Dose: 125 mg Documented By: Imaging Data Radiologist's Impression: Chest CTA 12/17/23 19:44 Exam(s): CTA CHEST IV Amt: 116 mL [id number] EXAM: CT Angiography Chest With Intravenous Contrast CLINICAL HISTORY: sob, BLE edema, r/o PE. TECHNIQUE: Axial computed tomographic angiography images of the chest with intravenous contrast. CTDI is 20.65 mGy and DLP is 697.92 mGy-cm. Automated exposure control was utilized for the study. A dose lowering technique was utilized adhering to the principles of ALARA. MIP reconstructed images were created and reviewed. COMPARISON: CTA chest 09/05/2023 FINDINGS: Limitations: There is respiratory artifact, which degrades image quality on multiple image slices. Pulmonary arteries: Accounting for limitations with respiratory artifact, there is no definite evidence for pulmonary embolism. Aorta: Atherosclerotic calcification involving the aorta. Similar eccentric atheromatous plaque involving the mid to distal descending aorta. No high-grade stenosis or occlusion. No thoracic aortic aneurysm. Lungs: Similar emphysematous changes. Dependent subsegmental changes noted, most prominently in the inferomedial right middle lobe and right lower lobe. There is narrowing and asymmetric thickening which short segment opacification of the proximal subsegmental branches serving the right lower lobe. This is similar to more prominent from the previous examination. Similar calcified granulomas involving the right lower lobe. Pleural space: There is a new moderate right pleural effusion layering posteriorly, measuring approximately 4 cm in AP diameter. No loculation. No pneumothorax. Heart: The cardiac chambers are stable in size. Similar coronary artery calcification. No pericardial effusion. Bones/joints: No acute fracture. No dislocation. Soft tissues: Unremarkable. Lymph nodes: Stable or tracheal and precarinal lymph nodes. Stable subcarinal calcified lymph nodes. IMPRESSION: 1. Accounting for limitations with respiratory artifact, there is no definite evidence for pulmonary embolism. 2. There is a new moderate right pleural effusion layering posteriorly, measuring approximately 4 cm in AP diameter. No loculation. 3. Similar emphysematous changes. Dependent subsegmental changes noted, most prominently in the inferomedial right middle lobe and right lower lobe. Favor compressive atelectasis from the right pleural effusion. Infection is considered less likely, but difficult to entirely exclude in the right lower lobe. 4. There is narrowing and asymmetric thickening which short segment opacification of the proximal subsegmental branches serving the right lower lobe. This is similar to more prominent from the previous examination. This may represent focal bronchitis or inspissated endobronchial secretions. Electronically signed by: Deion Ratliff MD 12/17/23 22:00 PM Discharge Plan Visit Data Chief Complaint: Shortness of Breath/Dyspnea ED Provider: Walt Ferro Discharge Problem: Acute on chronic respiratory failure with hypoxia and hypercapnia, Pneumonia, CHF (congestive heart failure), Pleural effusion, COPD with acute exacerbation, Hypomagnesemia Patient Disposition: Admitted As Inpatient Discharge Instructions Interventions: ED Discharge Assessment Last Done: 12/18/23 00:37 Discharge Problem: Pneumonia Qualifiers: Pneumonia type: due to unspecified organism Laterality: right Lung location: l ower lobe of lung Qualified Code(s): J18.9 - Pneumonia, unspecified organism CHF (congestive heart failure) Qualifiers: Heart failure type: unspecified Heart failure chronicity: acute on chronic Q ualified Code(s): I50.9 - Heart failure, unspecified
[2023-12-17 20:34] LABS: Basophils # (auto) 0.07 K/uL (0.00-0.20); Eosinophils # (auto) 0.19 K/uL (0.00-0.50); Eosinophils % (auto) 2.6 %; Hematocrit (blood only) 31.1 % (37.0-47.0); Hemoglobin 9.3 g/dl (12.0-16.0); Immature Granulocytes # (auto) 0.05 K/uL (0.01-0.20); Immature Granulocytes % (auto) 0.7 %; Lymphocytes # (auto) 1.85 K/uL (1.20-3.40); Lymphocytes % (auto) 25.4 %; Mean Corpuscular Hemoglobin 27.2 pg (25.0-34.0); Mean Corpuscular Hgb Conc 29.9 g/dL (32.0-36.0); Mean Corpuscular Volume 90.9 fL (80.0-100.0); Monocytes # (auto) 0.57 K/uL (0.11-0.59); Monocytes % (auto) 7.8 %; Neutrophils # (auto) 4.56 K/uL (1.40-6.50); Neutrophils % (auto) 62.5 %; Platelet Count 401 K/uL (130-400); RDW Coefficient of Variation 19.4 % (11.5-14.5); Red Blood Count 3.42 M/uL (4.20-5.40); White Blood Count 7.29 K/ul (4.8-10.8)
[2023-12-17 20:41] LABS: Albumin Globulin Ratio 1.2 (0.9-2); Albumin Level 3.3 gm/dl (3.4-5.0); BUN Creatinine Ratio 14.8 (10-20); Bilirubin,Total 0.2 mg/dl (0.2-1.0); Calcium 8.7 mg/dl (8.6-10.3); Creatinine Clr Calc Pharmacy 43.8 ml/min; Est GFR (African American) 59.8 ml/min; Est GFR (Non-African American) 51.6 ml/min; Globulin 2.7 gm/dl (2.5-4.0); Magnesium 1.5 mg/dl (1.7-2.4); Potassium 3.9 mmol/L (3.5-5.1)
[2023-12-17 21:03] LABS: INR 1.1 (0.9-1.1); Prothrombin Time 11.6 Seconds (9.0-12.0)
[2023-12-17] MEDS ORDERED: MAGNESIUM SULFATE / D5W 1 GM/100 ML BAG IV STA (21:08)
[2023-12-17 21:12] LABS: Adenovirus PCR Not Detected (NotDetected); Bordetella parapertussis PCR Not Detected (NotDetected); Bordetella pertussis PCR Not Detected (NotDetected); Chlamydia pneumoniae PCR Not Detected (NotDetected); Coronavirus 229E PCR Not Detected (NotDetected); Coronavirus CoV-2 (COVID19)PCR Not Detected (NotDetected); Coronavirus HKU1 PCR Not Detected (NotDetected); Coronavirus NL63 PCR Not Detected (NotDetected); Coronavirus OC43PCR Not Detected (NotDetected); Human Metapneumovirus PCR Not Detected (NotDetected); Influenza A PCR Not Detected (NotDetected); Influenza B PCR Not Detected (NotDetected); Mycoplasma pneumoniae PCR Not Detected (NotDetected); Parainfluenza Virus 1 PCR Not Detected (NotDetected); Parainfluenza Virus 2 PCR Not Detected (NotDetected); Parainfluenza Virus 3 PCR Not Detected (NotDetected); Parainfluenza Virus 4 PCR Not Detected (NotDetected); Respiratory Syncytial VirusPCR Not Detected (NotDetected); Rhinovirus/Enterovirus PCR Not Detected (NotDetected)
[2023-12-17] MEDS ORDERED: OPTIRAY 320 125ml IV ONE (21:34)
--- NOTE | 2023-12-17 22:02 | CT Scan Report ---
Exam(s): CTA CHEST IV Amt: 116 mL EXAM: CT Angiography Chest With Intravenous Contrast CLINICAL HISTORY: sob, BLE edema, r/o PE. TECHNIQUE: Axial computed tomographic angiography images of the chest with intravenous contrast. CTDI is 20.65 mGy and DLP is 697.92 mGy-cm. Automated exposure control was utilized for the study. A dose lowering technique was utilized adhering to the principles of ALARA. MIP reconstructed images were created and reviewed. COMPARISON: CTA chest 09/05/2023 FINDINGS: Limitations: There is respiratory artifact, which degrades image quality on multiple image slices. Pulmonary arteries: Accounting for limitations with respiratory artifact, there is no definite evidence for pulmonary embolism. Aorta: Atherosclerotic calcification involving the aorta. Similar eccentric atheromatous plaque involving the mid to distal descending aorta. No high-grade stenosis or occlusion. No thoracic aortic aneurysm. Lungs: Similar emphysematous changes. Dependent subsegmental changes noted, most prominently in the inferomedial right middle lobe and right lower lobe. There is narrowing and asymmetric thickening which short segment opacification of the proximal subsegmental branches serving the right lower lobe. This is similar to more prominent from the previous examination. Similar calcified granulomas involving the right lower lobe. Pleural space: There is a new moderate right pleural effusion layering posteriorly, measuring approximately 4 cm in AP diameter. No loculation. No pneumothorax. Heart: The cardiac chambers are stable in size. Similar coronary artery calcification. No pericardial effusion. Bones/joints: No acute fracture. No dislocation. Soft tissues: Unremarkable. Lymph nodes: Stable or tracheal and precarinal lymph nodes. Stable subcarinal calcified lymph nodes. IMPRESSION: 1. Accounting for limitations with respiratory artifact, there is no definite evidence for pulmonary embolism. 2. There is a new moderate right pleural effusion layering posteriorly, measuring approximately 4 cm in AP diameter. No loculation. 3. Similar emphysematous changes. Dependent subsegmental changes noted, most prominently in the inferomedial right middle lobe and right lower lobe. Favor compressive atelectasis from the right pleural effusion. Infection is considered less likely, but difficult to entirely exclude in the right lower lobe. 4. There is narrowing and asymmetric thickening which short segment opacification of the proximal subsegmental branches serving the right lower lobe. This is similar to more prominent from the previous examination. This may represent focal bronchitis or inspissated endobronchial secretions. Electronically signed by: Deion Ratliff MD 12/17/23 22:00 PM
[2023-12-17] MEDS ORDERED: PIPERACILLIN/TAZOBACTAM 4.5 GM/100 ML BAG IV ONE (22:13)
[2023-12-17] MEDS ORDERED: FUROSEMIDE 40 MG/4 ML VIAL IV STA (22:13)
[2023-12-17] MEDS ORDERED: DOXYCYCLINE HYCLATE 100 MG in DEXTROSE 5% MINI-B 100 ML IV STA (22:13)
--- NOTE | 2023-12-17 23:11 | History & Physical Report ---
Date of Service December 17, 2023 Assessment & Plan (1) Acute on chronic respiratory failure with hypoxia and hypercapnia: (2) Hypomagnesemia: (3) COPD with acute exacerbation: (4) Pleural effusion: (5) CHF (congestive heart failure): (6) Pneumonia: (7) Afib: Plan Acute on chronic respiratory failure with hypoxia and hypercapnia- Combination of COPD exacerbation, pleural effusion and CHF exacerbation Continue BiPAP 7/5 to 60%, adjusting as needed, with ultimate plan to return to patient's 4 L nasal cannula oxygen dependency Most recent hospitalization from 11/21/2023-11/26/2023 COPD exacerbation/right lower lobe pleural effusion and likely underlying pneumonia- CT angiography does suggest a possible focal bronchitis right lower lobe Cefepime 2 g IV every 12 hours Doxycycline IV begun in ED Status post Solu-Medrol 125 mg IV from the ED and will be continued at 40 mg IV every 8 hours Duonebs every 4 hours while awake and every 2 hours when necessary. Guaifenesin extended release 1200 mg p.o. twice daily Continue Incruse Ellipta StartPulmicort Respules 0.5 mg twice daily CHF exacerbation/right lower lobe pleural effusion/hypomagnesemia/atrial fibrillation- Received furosemide 40 mg IV x 1 from the ED Continue furosemide 40 mg IV every morning Continue apixaban, aspirin, diltiazem CD, metoprolol succinate, losartan Follow serial BMP and magnesium levels Magnesium level 1.5 in ED, will to receive a total 2 g IV, and follow serially Diabetes mellitus- Hold glipizide and metformin Placed on Accu-Cheks with NovoLog SSI History of Present Illness Chief Complaint: The patient is brought to the emergency department via EMS due to complaints of worsening shortness of breath, cough and chest congestion with increased sputum production. Primary Care Provider: BRET Espinoza The patient is a 73-year-old female with a past medical history including COPD exacerbations, pleural effusion, CHF, chronic respiratory failure with 4 L nasal cannula oxygen dependency, tobacco use, metabolic encephalopathy, atrial fibrillation, urinary tract infections and CKD. The patient has had worsening shortness of breath, chest congestion and increased sputum production over the past several days, feels generally weak, was brought to the emergency department by EMS, with some improvement in symptoms with 2 DuoNeb treatments en route to the hospital. Patient initially was on nasal cannula, which then was changed to oxime mask, and then was placed on BiPAP 7/5 at 60% FiO2 with improvement in comfort while in the ED. Allergies Allergy/AdvReac Type Severity Reaction Status Date / Time diflunisal AdvReac Intermediate HEART RACES Verified 12/08/23 16:50 Home Medications Medication Instructions Recorded Confirmed Type albuterol sulfate 90 mcg/actuation 2 puff inhalation Q6 PRN Shortness 08/28/20 12/17/23 History aerosol inhaler (Ventolin HFA) Of Breath Or Wheezing aspirin 81 mg tablet,delayed 81 mg PO QAM 08/28/20 12/17/23 History release (Uri Low Dose Aspirin) metformin 1,000 mg tablet 1,000 mg PO BID 08/28/20 12/17/23 History blood sugar diagnostic ([employer] #50 ea 06/02/21 12/17/23 Rx Verio test strips) blood-glucose meter (DFMSimTouch #1 ea 06/02/21 12/17/23 Rx Verio Meter) lancets 33 gauge (DFMSimTouch Delica #100 ea 06/02/21 12/17/23 Rx Lancets) folic acid 1 mg tablet 1 mg PO QAM 03/24/22 12/17/23 History losartan 50 mg tablet 50 mg PO QAM 03/24/22 12/17/23 History ipratropium 0.5 mg-albuterol 3 mg 3 ml inhalation Q4H PRN shortness 12/13/22 12/17/23 Rx (2.5 mg base)/3 mL nebulization of breath #90 mL soln bupropion HCl 150 mg 24 hr tablet, 150 mg PO DAILY 08/23/23 12/17/23 History extended release rosuvastatin 20 mg tablet 20 mg PO DAILY 08/23/23 12/17/23 History apixaban 5 mg tablet (Eliquis) 5 mg PO BID #60 tabs 09/10/23 12/17/23 Rx diltiazem HCl 180 mg 180 mg PO QAM #30 caps 09/10/23 12/17/23 Rx capsule,extended release 24 hr glipizide 5 mg tablet 5 mg PO DAILY #30 tabs 09/10/23 12/17/23 Rx metoprolol succinate 50 mg 50 mg PO BID #60 tabs 09/10/23 12/17/23 Rx tablet,extended release 24 hr oxycodone 5 mg tablet 5 mg PO TID PRN Pain #30 tabs 09/10/23 12/17/23 Rx budesonide-formoterol HFA 160 2 puff inhalation BID 09/21/23 12/17/23 History mcg-4.5 mcg/actuation aerosol inhaler cyanocobalamin (vitamin B-12) 500 1,000 mcg (2 x 500 mcg) PO QAM #30 11/24/23 Rx mcg tablet tabs furosemide 40 mg tablet 40 mg PO QAM #30 tabs 11/24/23 12/17/23 Rx pantoprazole 40 mg tablet,delayed 40 mg PO BID #60 tabs 11/24/23 12/17/23 Rx release sodium chloride 7 % for 4 ml NEB BIDR #240 mL 11/24/23 12/17/23 Rx nebulization tiotropium bromide 1.25 2 puff inhalation DAILY #4 grams 11/24/23 12/17/23 Rx mcg/actuation mist for inhalation (Spiriva Respimat) Past Med/Surg History Medical History Severe muscle deconditioning COPD exacerbation Acute on chronic respiratory failure with hypoxia Chronic pain syndrome Abdominal pain Respiratory failure Hyperkalemia Diabetes type 2, uncontrolled Acute hypercapnic respiratory failure TATY (acute kidney injury) AMS (altered mental status) Syncope Acute UTI Acute hypotension Chronic kidney disease, stage 3a Acute kidney injury Acute exacerbation of chronic low back pain Candidiasis of mouth and esophagus Tobacco abuse DVT prophylaxis Diabetes mellitus COPD (chronic obstructive pulmonary disease) Hypertension Hyperlipidemia Acute on chronic respiratory failure with hypoxia and hypercapnia History of knee replacement Left peroneal nerve palsy AAA (abdominal aortic aneurysm) Diaphragmatic hernia (10/31/11) Chronic low back pain Surgical History History of bilateral oophorectomies History of appendectomy History of lithotripsy (~2007) H/O Achilles tendon repair (~2007) Hx of cholecystectomy H/O: hysterectomy Family History Other Family history non-contributory Social History Smoking Status: Current every day smoker Tobacco Type: Cigarettes Age Started Using Tobacco: 32; Cigarettes Per Day: 1/2 ppd; Second Hand Exposure: Yes; Do You Dip or Chew Tobacco: No; Tobacco Cessation Education Requested by Patient: No Hx Alcohol Use: No Hx Substance Use: No Preferred Language: Nepali Communication Ability: Effective Joist Setter Required: No Beliefs That Will Affect Care: None marital status: Current Living Situation: Spouse Current Living Situation Comment: Lives at home with How many Children do You have: 3 Other Information That Helps Us Care for You: No Feels Safe at Home: Yes Safety Concerns: Feels Safe At This Time Assistive Devices: Cane and Walker Review of Systems Review of Systems: The patient denies chest pain, palpitations, lower extremity swelling, sore throat, fevers, chills, sweats, nausea, vomiting, diarrhea , constipation, abdominal pain, pelvic pain, blood in urine or stool, dysuria, urinary frequency or urgency, lightheadedness, dizziness, headache, memory loss, loss of consciousness, rash, abnormal bruising or bleeding, imbalance, focal weakness, numbness or tingling in arms or legs, generalized arthralgias or myalgias, back or neck pain, or night sweats. The review of systems is otherwise negative other than for that already noted above, and at least 10 systems have been reviewed. Physical Exam Physical Exam: The patient is awake, alert and oriented 3, well developed and well nourished, normocephalic and atraumatic, lying in bed and in no acute distress. HEENT--PERRL, EOMI, mucous membranes and oropharynx dry. Neck--supple. No JVD. No bruits. Thyroid normal, trachea midline, no adenopathy. Heart--normal S1 and S2. No murmurs, rubs or gallops. Lungs--coarse breath sounds bilaterally. No further respiratory distress on BiPAP. No accessory muscle use. Abdomen--normal bowel sounds and soft. Nontender. Nondistended, no hernias or masses, no organomegaly. Extremities--no cyanosis or clubbing. No edema. Dermatologic--normal skin turgor, normal color, no abnormal lymph nodes, no rash. Neurologic--cranial nerves II through XII grossly intact. Rheumatologic--normal range of motion. Psychiatric--normal affect. Results & Data Results & Data Vital Signs (Past 12 Hours) Vital Signs Temp Pulse Pulse Resp BP BP Pulse Ox 12/17/23 22:19 97 H 24 94 12/17/23 21:40 107 H 29 H 165/71 H 91 12/17/23 19:29 12/17/23 19:28 88 12/17/23 19:22 36.8 C 80 17 151/62 H 94 O2 Del Method O2 Flow Rate FiO2 12/17/23 22:19 60 12/17/23 21:40 Oxymask 15 12/17/23 19:29 Oxymask 6 12/17/23 19:28 12/17/23 19:22 Oxymask 6 Laboratory Results Laboratory Results WBC 7.29 K/ul (4.8-10.8) 12/17/23 20:02 RBC 3.42 M/uL (4.20-5.40) L 12/17/23 20:02 Hgb 9.3 g/dl (12.0-16.0) L 12/17/23 20:02 Hct 31.1 % (37.0-47.0) L 12/17/23 20:02 MCV 90.9 fL (80.0-100.0) 12/17/23 20:02 MCH 27.2 pg (25.0-34.0) 12/17/23 20:02 MCHC 29.9 g/dL (32.0-36.0) L 12/17/23 20:02 RDW Std Deviation 64.0 fL (36.4-46.3) H 12/17/23 20:02 RDW Coeff of Dorcas 19.4 % (11.5-14.5) H 12/17/23 20:02 Plt Count 401 K/uL (130-400) H 12/17/23 20:02 MPV 10.0 fL (9.4-12.4) 12/17/23 20:02 Immature Gran % (Auto) 0.7 % 12/17/23 20:02 Neut % (Auto) 62.5 % 12/17/23 20:02 Lymph % (Auto) 25.4 % 12/17/23 20:02 Gladwin % (Auto) 7.8 % 12/17/23 20:02 Eos % (Auto) 2.6 % 12/17/23 20:02 Baso % (Auto) 1.0 % 12/17/23 20:02 Neut # (Auto) 4.56 K/uL (1.40-6.50) 12/17/23 20:02 Lymph # (Auto) 1.85 K/uL (1.20-3.40) 12/17/23 20:02 Gladwin # (Auto) 0.57 K/uL (0.11-0.59) 12/17/23 20:02 Eos # (Auto) 0.19 K/uL (0.00-0.50) 12/17/23 20:02 Baso # (Auto) 0.07 K/uL (0.00-0.20) 12/17/23 20:02 Immature Gran # (Auto) 0.05 K/uL (0.01-0.20) 12/17/23 20:02 PT 11.6 Seconds (9.0-12.0) 12/17/23 20:02 INR 1.1 (0.9-1.1) 12/17/23 20:02 Sodium 140 mmol/L (136-145) 12/17/23 20:02 Potassium 3.9 mmol/L (3.5-5.1) 12/17/23 20:02 Chloride 99 mmol/L (98-107) 12/17/23 20:02 Carbon Dioxide 36 mmol/L (21-32) H 12/17/23 20:02 Anion Gap 5 (3-11) 12/17/23 20:02 BUN 16 mg/dl (6-23) 12/17/23 20:02 Creatinine 1.08 mg/dl (0.6-1.2) 12/17/23 20:02 Est Cr Clr Drug Dosing 43.8 ml/min 12/17/23 20:02 Est GFR ( Amer) 59.8 ml/min 12/17/23 20:02 Est GFR (Non-Af Amer) 51.6 ml/min 12/17/23 20:02 BUN/Creatinine Ratio 14.8 (10-20) 12/17/23 20:02 Glucose 208 mg/dl (70-99(Fasting)) H 12/17/23 20:02 Lactate 0.9 mmol/L (0.4-2.0) 12/17/23 22:09 Calcium 8.7 mg/dl (8.6-10.3) 12/17/23 20:02 Magnesium 1.5 mg/dl (1.7-2.4) L 12/17/23 20:02 Total Bilirubin 0.2 mg/dl (0.2-1.0) 12/17/23 20:02 AST 11 U/L (13-39) L 12/17/23 20:02 ALT 11 U/L (7-52) 12/17/23 20:02 Alkaline Phosphatase 79 U/L (34-104) 12/17/23 20:02 Troponin I High Sens 5.0 pg/ml (0-14) 12/17/23 20:02 B-Natriuretic Peptide 218 pg/ml (0-100) H 12/17/23 22:09 Total Protein 6.0 gm/dl (6.0-8.3) 12/17/23 20:02 Albumin 3.3 gm/dl (3.4-5.0) L 12/17/23 20:02 Globulin 2.7 gm/dl (2.5-4.0) 12/17/23 20:02 Albumin/Globulin Ratio 1.2 (0.9-2) 12/17/23 20:02 Lipase 20 U/L (11-82) 12/17/23 20:02 Procalcitonin < 0.05 ng/ml (0-0.5) 12/17/23 20:02 Nasal Screen MRSA (PCR) Negative (Negative) 12/17/23 22:35 Adenovirus (PCR) Not Detected (NotDetected) 12/17/23 20:02 B. pertussis DNA (PCR) Not Detected (NotDetected) 12/17/23 20:02 B.parapertussis DNA PCR Not Detected (NotDetected) 12/17/23 20:02 C. pneumoniae DNA (PCR) Not Detected (NotDetected) 12/17/23 20:02 Coronavirus OC43 (PCR) Not Detected (NotDetected) 12/17/23 20:02 Coronavirus HKU1 (PCR) Not Detected (NotDetected) 12/17/23 20:02 Coronavirus 229E (PCR) Not Detected (NotDetected) 12/17/23 20:02 SARS-CoV-2 (PCR) Not Detected (NotDetected) 12/17/23 20:02 Coronavirus NL63 (PCR) Not Detected (NotDetected) 12/17/23 20:02 Human Metapneumovir PCR Not Detected (NotDetected) 12/17/23 20:02 Influenza Type A (PCR) Not Detected (NotDetected) 12/17/23 20:02 Influenza Type B (PCR) Not Detected (NotDetected) 12/17/23 20:02 M. pneumoniae (PCR) Not Detected (NotDetected) 12/17/23 20:02 Parainfluenza 1 (PCR) Not Detected (NotDetected) 12/17/23 20:02 Parainfluenza 2 (PCR) Not Detected (NotDetected) 12/17/23 20:02 Parainfluenza 3 (PCR) Not Detected (NotDetected) 12/17/23 20:02 Parainfluenza 4 (PCR) Not Detected (NotDetected) 12/17/23 20:02 RSV (PCR) Not Detected (NotDetected) 12/17/23 20:02 Entero/Rhino (PCR) Not Detected (NotDetected) 12/17/23 20:02 Impressions Chest CTA 12/17/23 19:44 Exam(s): CTA CHEST IV Amt: 116 mL [id number] EXAM: CT Angiography Chest With Intravenous Contrast CLINICAL HISTORY: sob, BLE edema, r/o PE. TECHNIQUE: Axial computed tomographic angiography images of the chest with intravenous contrast. CTDI is 20.65 mGy and DLP is 697.92 mGy-cm. Automated exposure control was utilized for the study. A dose lowering technique was utilized adhering to the principles of ALARA. MIP reconstructed images were created and reviewed. COMPARISON: CTA chest 09/05/2023 FINDINGS: Limitations: There is respiratory artifact, which degrades image quality on multiple image slices. Pulmonary arteries: Accounting for limitations with respiratory artifact, there is no definite evidence for pulmonary embolism. Aorta: Atherosclerotic calcification involving the aorta. Similar eccentric atheromatous plaque involving the mid to distal descending aorta. No high-grade stenosis or occlusion. No thoracic aortic aneurysm. Lungs: Similar emphysematous changes. Dependent subsegmental changes noted, most prominently in the inferomedial right middle lobe and right lower lobe. There is narrowing and asymmetric thickening which short segment opacification of the proximal subsegmental branches serving the right lower lobe. This is similar to more prominent from the previous examination. Similar calcified granulomas involving the right lower lobe. Pleural space: There is a new moderate right pleural effusion layering posteriorly, measuring approximately 4 cm in AP diameter. No loculation. No pneumothorax. Heart: The cardiac chambers are stable in size. Similar coronary artery calcification. No pericardial effusion. Bones/joints: No acute fracture. No dislocation. Soft tissues: Unremarkable. Lymph nodes: Stable or tracheal and precarinal lymph nodes. Stable subcarinal calcified lymph nodes. IMPRESSION: 1. Accounting for limitations with respiratory artifact, there is no definite evidence for pulmonary embolism. 2. There is a new moderate right pleural effusion layering posteriorly, measuring approximately 4 cm in AP diameter. No loculation. 3. Similar emphysematous changes. Dependent subsegmental changes noted, most prominently in the inferomedial right middle lobe and right lower lobe. Favor compressive atelectasis from the right pleural effusion. Infection is considered less likely, but difficult to entirely exclude in the right lower lobe. 4. There is narrowing and asymmetric thickening which short segment opacification of the proximal subsegmental branches serving the right lower lobe. This is similar to more prominent from the previous examination. This may represent focal bronchitis or inspissated endobronchial secretions. Electronically signed by: Deion Ratliff MD 12/17/23 22:00 PM Code Status & VTE Plan Code Status Full code VTE Prophylaxis Plan VTE Prophylaxis will be ordered: Yes PG Care Time/CCT Total # of Minutes Spent Total Time Spent with Patient: Total time spent is greater than 50% in coordination of care (as documented) at patient's floor/unit and/or counseling patient: Coding Level of Care Code 93771 INT INP/OBS CARE 3/75MIN Diagnoses Acute on chronic respiratory failure with hypoxia and hypercapnia J96.21; J96.22 Hypomagnesemia E83.42 COPD with acute exacerbation J44.1 Pleural effusion J90 CHF (congestive heart failure) I50.9 Heart failure chronicity: acute on chronic Heart failure type: unspecified Pneumonia J18.9 Laterality: right Lung location: lower lobe of lung Pneumonia type: due to unspecified organism Afib I48.91 (5) CHF (congestive heart failure) Heart failure chronicity: acute on chronic Heart failure type: unspecified Qualified Code(s): I50.9 - Heart failure, unspecified (6) Pneumonia Laterality: right Lung location: lower lobe of lung Pneumonia type: due to unspecified organism Qualified Code(s): J18.9 - Pneumonia, unspecified organism
[2023-12-17] MEDS ORDERED: MAGNESIUM SULFATE / D5W 1 GM/100 ML BAG IV ONE (23:15)
[2023-12-17] MEDS ORDERED: ALBUT/IPRATROP 3MG/0.5MG NEB 3 ML VIAL NEB PRN (23:15)
[2023-12-18] MEDS ORDERED: ALBUTEROL HFA 8 GM INHALER INH PRN (01:22)
[2023-12-18] MEDS ORDERED: ONDANSETRON INJ 2 MG/ML 2 ML VIAL IV PRN (01:22)
[2023-12-18] MEDS ORDERED: ACETAMINOPHEN 1000 MG/100 ML IV IV PRN (01:22)
[2023-12-18] MEDS ORDERED: DEXTROSE 50% 50 ML SYRINGE IV PRN (01:22)
[2023-12-18] MEDS ORDERED: GLUCOSE 40% GEL 15 GM TUBE PO PRN (01:22)
[2023-12-18] MEDS ORDERED: CARBOHYDRATES FOR HYPOGLYCEMIA PO PRN (01:22)
[2023-12-18] MEDS ORDERED: GLUCOSE 10 TAB/TUBE PO PRN (01:22)
[2023-12-18] MEDS ORDERED: GLUCAGON FOR INJ 1 MG VIAL SQ PRN (01:22)
[2023-12-18] MEDS ORDERED: ACETAMINOPHEN 1,000 MG/100 ML VIAL IV PRN (01:33)
[2023-12-18] MEDS ORDERED: CEFEPIME 2,000 MG in SYRINGE 0 ML IV SCH (06:00)
[2023-12-18 07:08] LABS: Basophils # (auto) 0.02 K/uL (0.00-0.20); Basophils % (auto) 0.4 %; Hematocrit (blood only) 30.3 % (37.0-47.0); Hemoglobin 9.1 g/dl (12.0-16.0); Immature Granulocytes # (auto) 0.06 K/uL (0.01-0.20); Immature Granulocytes % (auto) 1.2 %; Lymphocytes # (auto) 0.38 K/uL (1.20-3.40); Lymphocytes % (auto) 7.6 %; Mean Corpuscular Volume 89.9 fL (80.0-100.0); Mean Platelet Volume 9.3 fL (9.4-12.4); Monocytes # (auto) 0.04 K/uL (0.11-0.59); Monocytes % (auto) 0.8 %; Nucleated RBC # (auto) 0.02 K/uL (0.00-0.12); Nucleated RBC % (auto) 0.4 %; Platelet Count 363 K/uL (130-400); RDW Coefficient of Variation 19.4 % (11.5-14.5); RDW Standard Deviation 62.4 fL (36.4-46.3); Red Blood Count 3.37 M/uL (4.20-5.40)
--- NOTE | 2023-12-18 07:20 | XRay Report ---
XR chest 1V portable HISTORY: 73 years-old Female Chest pain, nonspecific COMPARISON: CTA chest of same day TECHNIQUE: AP view of the chest FINDINGS: Cardiomediastinal and hilar silhouettes are unchanged. Small moderate right pleural effusion with mil d right basilar consolidation. Moderate pulmonary emphysema with pulmonary vascular congestion. Degen erative changes of the shoulders and spine. Calcified right hilar lymph nodes. IMPRESSION: 1. Cardiomegaly with pulmonary vascular congestion. 2. Small to moderate right pleural effusion with mild right basilar consolidation. 3. Pulmonary emphysema. ACT 112: Negative or not required by law. The above report was generated using voice recognition software. It may contain grammatical, syntax o r spelling errors. Electronically signed by: Israel Sharma M.D. 12/18/2023 7:19 AM
[2023-12-18 07:28] LABS: Albumin Globulin Ratio 1.2 (0.9-2); Albumin Level 3.4 gm/dl (3.4-5.0); BUN Creatinine Ratio 14.3 (10-20); Bilirubin,Total 0.3 mg/dl (0.2-1.0); Creatinine Clr Calc Pharmacy 45.1 ml/min; Est GFR (African American) 61.9 ml/min; Est GFR (Non-African American) 53.4 ml/min; Globulin 2.8 gm/dl (2.5-4.0); Magnesium 1.9 mg/dl (1.7-2.4); Total Protein 6.2 gm/dl (6.0-8.3)
[2023-12-18] MEDS: BUDESONIDE 0.5 MG/2 ML VIAL (PULMICORT) NEB SCH ×2 (07:32→19:37)
[2023-12-18] MEDS: ALBUT/IPRATROP 3MG/0.5MG NEB 3 ML VIAL NEB SCH ×4 (07:32→19:37)
[2023-12-18] MEDS: SODIUM CHLOR 7% 4 ML NEB NEB SCH ×2 (07:32→19:37)
[2023-12-18] MEDS: INSULIN ASPART PER UNIT CHARGE SC SCH ×4 (07:39→20:20)
[2023-12-18] MEDS: UMECLIDINIUM BROMIDE 62.5MCG/BLISTER 7 PUFFS/INHALER INH SCH (07:55)
[2023-12-18] MEDS: LOSARTAN POTASSIUM 50 MG TAB PO SCH (07:55)
[2023-12-18] MEDS: buPROPion XL 150 MG TABCR PO SCH (07:55)
[2023-12-18] MEDS: PANTOprazole 40 MG TAB PO SCH ×2 (07:55→20:08)
[2023-12-18] MEDS: ROSUVASTATIN CALCIUM 20 MG TAB PO SCH (07:55)
[2023-12-18] MEDS: dilTIAZem HCL 180 MG CAPCR PO SCH (07:55)
[2023-12-18] MEDS: FUROSEMIDE 40 MG/4 ML VIAL IV SCH (07:55)
[2023-12-18] MEDS: METOPROLOL SUCC 50MG EXT REL TAB PO SCH ×2 (07:55→20:08)
[2023-12-18] MEDS: CYANOCOBALAMIN (B-12) 500 MCG TABLET PO SCH (07:55)
[2023-12-18] MEDS: FOLIC ACID 1 MG TAB PO SCH (07:55)
[2023-12-18] MEDS: APIXABAN 5 MG TABLET PO SCH ×2 (07:56→20:08)
[2023-12-18] MEDS: guaiFENesin 600 MG TABCR PO SCH ×2 (07:56→20:09)
[2023-12-18] MEDS: ASPIRIN 81 MG ECTAB PO SCH (07:56)
[2023-12-18] MEDS: oxyCODONE HCL IR 5 MG TAB (IMMEDIATE RELEASE) PO PRN ×2 (08:11→16:49)
[2023-12-18 08:21] LABS: Estimated Average Glucose 177 mg/dl; Hemoglobin A1C 7.8 % (4.5-5.6)
[2023-12-18] MEDS ORDERED: AZITHROMYCIN 250 MG TAB PO ONE (08:42)
[2023-12-18] MEDS ORDERED: FUROSEMIDE 40 MG TAB PO SCH (09:00)
[2023-12-18] MEDS ORDERED: DOXYCYCLINE HYCLATE 100 MG in DEXTROSE 5% MINI-B 100 ML IV SCH (10:00)
[2023-12-18] MEDS: DOXYCYCLINE HYCLATE 100 MG CAP PO SCH ×2 (10:20→20:08)
--- NOTE | 2023-12-18 19:29 | Hospitalist Progress Note ---
Date of Service December 18, 2023 Assessment & Plan (1) Acute on chronic respiratory failure with hypoxia and hypercapnia: Plan: Acute presentation appears to be both an acute exacerbation of COPD, and acute on chronic diastolic CHF. Fortunately she is improving quite nicely. Initially I wondered if she might have a failure to improve with her hypoxia and require thoracentesis for her pleural effusionbut fortunately this has not been the case. Continue current management for CHF into tomorrowIV Lasixand hopefully be able to transition to p.o. and possibly home tomorrow. For her COPD exacerbation she was given Solu-Medrol in the ER last nightno steroids have been continuedwill hold off on further steroids at this point in time but continue nebulizers. Once I was able to review old records, I doubt she has an acute pneumonia, and I suspect the findings that were consistent with pneumonia on her current imaging are both compressive atelectasis from the effusion and possibly a degree of residual changes from her prior pneumoniadowngraded antibiotics to doxycycline largely for pulmonary anti-inflammatory effect (considered azithromycin, but pharmacy raised concern of QT prolongation). (2) COPD with acute exacerbation: Plan: See above (3) Pleural effusion: Plan: Likely CHF related or possibly residual from her prior pneumoniaconsider the need for thoracentesis, but fortunately she is doing well enough right now we may not need toparticularly given that she is down to 5 L and lives on 4. (4) CHF (congestive heart failure): Plan: See above (5) Pneumonia: Plan: See aboveto clarify suspect this is just residual changes from her prior pneumonia. No current pneumonia specific treatment needed. (6) Afib: Plan: Rate controlled, anticoagulated (7) Hypomagnesemia: (8) Hyperglycemia: Plan: Type 2 diabetesbasal bolus insulin management. Admission and Anticipated Discharge Date Admission Date: December 17, 2023 Subjective Feeling much better. Breathing easier. Notes that she is normally on 4 L of oxygen at home. I see her whenever she is eating dinnershe is eating with a rather voracious appetite. Review of Systems Review of Systems: In general she is awake and alert pleasant no distress. HEENT normocephalic atraumatic mucous membranes moist. Lungs show faint but harsh sounding wheeze throughout but with good air entry, no accessory muscle use no conversational dyspnea good effort no focal rales or rhonchi. Physical Exam Physical Exam: See aboveaccidentally placed in review of systems. To clarify, review of systems otherwise negative except for as above. Results & Data Results & Data Vital Signs (Past 12 Hours) Vital Signs Temp Pulse Resp BP Pulse Ox O2 Del Method O2 Flow Rate 12/18/23 15:31 98.4 F 82 19 161/70 H 88 L Nasal Cannula 5 12/18/23 15:24 81 20 88 L Nasal Cannula 5 12/18/23 11:06 97.9 F 85 20 142/82 H 95 Oxymask 12/18/23 10:47 91 H 24 91 Nasal Cannula 5 12/18/23 08:00 Nasal Cannula 4 12/18/23 07:32 97 H 16 94 Oxymask 9 PG Care Time/CCT Total # of Minutes Spent Total Time Spent with Patient: Total time spent is greater than 50% in coordination of care (as documented) at patient's floor/unit and/or counseling patient: Coding Level of Care Code 32263 SUB INP/OBS CARE 3/50MIN Diagnoses Acute on chronic respiratory failure with hypoxia and hypercapnia J96.21; J96.22 COPD with acute exacerbation J44.1 Pleural effusion J90 CHF (congestive heart failure) I50.9 Heart failure chronicity: acute on chronic Heart failure type: unspecified Pneumonia J18.9 Laterality: right Lung location: lower lobe of lung Pneumonia type: due to unspecified organism Afib I48.91 Hypomagnesemia E83.42 Hyperglycemia R73.9 (4) CHF (congestive heart failure) Heart failure chronicity: acute on chronic Heart failure type: unspecified Qualified Code(s): I50.9 - Heart failure, unspecified (5) Pneumonia Laterality: right Lung location: lower lobe of lung Pneumonia type: due to unspecified organism Qualified Code(s): J18.9 - Pneumonia, unspecified organism
--- NOTE | 2023-12-18 19:53 | Electrocardiogram Report ---
Test Reason : Blood Pressure : / mmHG Vent. Rate : 107 BPM Atrial Rate : 107 BPM P-R Int : 158 ms QRS Dur : 086 ms QT Int : 364 ms P-R-T Axes : 072 017 084 degrees QTc Int : 485 ms Sinus tachycardia with Premature atrial complexes with Aberrant conduction Abnormal ECG When compared with ECG of 21-NOV-2023 09:41, Aberrant conduction is now Present T wave inversion now evident in Anterior leads Confirmed by Lion Diego ([id number]) on 12/18/2023 7:53:32 PM Referred By: REFERRED SELF Confirmed By:Yvan Diego
--- NOTE | 2023-12-18 19:55 | Electrocardiogram Report ---
Test Reason : Blood Pressure : / mmHG Vent. Rate : 100 BPM Atrial Rate : 100 BPM P-R Int : 166 ms QRS Dur : 094 ms QT Int : 376 ms P-R-T Axes : 067 011 062 degrees QTc Int : 485 ms Sinus rhythm with Premature supraventricular complexes Otherwise normal ECG When compared with ECG of 17-DEC-2023 21:37, (unconfirmed) T wave inversion no longer evident in Anterior leads Confirmed by Lion Diego ([id number] on 12/18/2023 7:55:40 PM Referred By: REFERRED SELF Confirmed By:Yvan Diego
[2023-12-18] MEDS ORDERED: LANTUS PER UNIT CHARGE SQ SCH (21:00)
[2023-12-19] MEDS: oxyCODONE HCL IR 5 MG TAB (IMMEDIATE RELEASE) PO PRN ×3 (05:19→21:48)
[2023-12-19 06:52] LABS: Basophils # (auto) 0.03 K/uL (0.00-0.20); Basophils % (auto) 0.2 %; Hematocrit (blood only) 31.4 % (37.0-47.0); Hemoglobin 9.6 g/dl (12.0-16.0); Immature Granulocytes # (auto) 0.12 K/uL (0.01-0.20); Immature Granulocytes % (auto) 0.8 %; Lymphocytes # (auto) 0.96 K/uL (1.20-3.40); Lymphocytes % (auto) 6.2 %; Mean Corpuscular Hemoglobin 27.4 pg (25.0-34.0); Mean Corpuscular Hgb Conc 30.6 g/dL (32.0-36.0); Mean Corpuscular Volume 89.5 fL (80.0-100.0); Mean Platelet Volume 10.2 fL (9.4-12.4); Monocytes # (auto) 0.72 K/uL (0.11-0.59); Monocytes % (auto) 4.7 %; Neutrophils # (auto) 13.64 K/uL (1.40-6.50); Neutrophils % (auto) 88.1 %; Nucleated RBC # (auto) 0.02 K/uL (0.00-0.12); Nucleated RBC % (auto) 0.1 %; Platelet Count 378 K/uL (130-400); RDW Coefficient of Variation 19.5 % (11.5-14.5); RDW Standard Deviation 62.6 fL (36.4-46.3); Red Blood Count 3.51 M/uL (4.20-5.40); White Blood Count 15.47 K/ul (4.8-10.8)
[2023-12-19 06:58] LABS: Anion Gap 6 (3-11); BUN Creatinine Ratio 17.9 (10-20); Blood Urea Nitrogen 20 mg/dl (6-23); Calcium 9.1 mg/dl (8.6-10.3); Carbon Dioxide 30 mmol/L (21-32); Chloride 100 mmol/L (98-107); Creatinine Clr Calc Pharmacy 42.2 ml/min; Est GFR (African American) 57.2 ml/min; Est GFR (Non-African American) 49.4 ml/min; Glucose 206 mg/dl (70-99(Fasting)); Sodium 136 mmol/L (136-145)
[2023-12-19] MEDS: SODIUM CHLOR 7% 4 ML NEB NEB SCH ×2 (07:04→19:09)
[2023-12-19] MEDS: ALBUT/IPRATROP 3MG/0.5MG NEB 3 ML VIAL NEB SCH ×4 (07:05→19:09)
[2023-12-19] MEDS: BUDESONIDE 0.5 MG/2 ML VIAL (PULMICORT) NEB SCH ×2 (07:05→19:09)
--- NOTE | 2023-12-19 08:49 | Hospitalist Progress Note ---
Date of Service December 19, 2023 Assessment & Plan (1) Acute on chronic respiratory failure with hypoxia and hypercapnia: Plan: Acute presentation appears to be both an acute exacerbation of COPD, and acute on chronic diastolic CHF. Fortunately she is improving quite nicely. pleural effusionnot in need of thoracentesis Continue current management for CHF transition to p.o. Lasix on 12/20 COPD exacerbation she was given Solu-Medrol in the ER last nightno steroids have been continuedwill hold off on further steroids at this point in time but continue nebulizers. Leukocytosis likely from steroid bolus given in the emergency department Doubt acute pneumonia, and I suspect the findings that were consistent with pneumonia on her current imaging are both compressive atelectasis from the effusion and possibly a degree of residual changes from her prior p neumoniadowngraded antibiotics to doxycycline largely for pulmonary anti- inflammatory effect (considered azithromycin, but pharmacy raised concern of QT prolongation). Patient returns in short order after being discharged on BiPAP ST. She failed home therapy and was readmitted after less than 3 weeks at home (2) COPD with acute exacerbation: Plan: Pulmonary concerned that BiPAP is not effective modality to treat this patient and wish for Trelegy to be prescribed which she met criteria (3) Pleural effusion: Plan: Likely diastolic CHF related or possibly residual from her prior pneumoniaconsider the need for thoracentesis, but fortunately she is doing well enough right now we may not need toparticularly given that she is down to 5 L and lives on 4. (4) Afib: Plan: Rate controlled, anticoagulated, metoprolola and diltiazem with eliquis for AC (5) Hypomagnesemia: Plan: replete (6) Hyperglycemia: Plan: Type 2 diabetesbasal bolus insulin management. adjusted glargine to bid Admission and Anticipated Discharge Date Admission Date: December 17, 2023 Subjective Patient wants to go home but agrees to stay another day. She does desaturate quite significantly when she is at rest\ Minimal coughing but is dyspneic on exertion Physical Exam Physical Exam: Lungs have poor air movement but there are no wheezes or focal air loss Cardiac exam is regular without murmur Extremities are without edema Results & Data Results & Data Vital Signs (Past 12 Hours) Vital Signs Temp Pulse Pulse Resp BP BP Pulse Ox 12/19/23 07:33 79 20 88 L 12/19/23 07:20 98.2 F 77 20 186/72 H 89 L 12/19/23 03:08 98.2 F 78 20 137/73 93 12/18/23 22:05 86 12/18/23 22:05 98.4 F 86 18 148/69 H 90 O2 Del Method O2 Flow Rate 12/19/23 07:33 Nasal Cannula 2 12/19/23 07:20 Nasal Cannula 12/19/23 03:08 Nasal Cannula 12/18/23 22:05 12/18/23 22:05 High Flow Nasal Cannula 6 Laboratory Results Reviewed CBC reviewed chemistry PG Care Time/CCT Total # of Minutes Spent Total Time Spent with Patient: Total time spent is greater than 50% in coordination of care (as documented) at patient's floor/unit and/or counseling patient: Coding Level of Care Code 77257 SUB INP/OBS CARE 3/50MIN Diagnoses Acute on chronic respiratory failure with hypoxia and hypercapnia J96.21; J96.22 COPD with acute exacerbation J44.1 Pleural effusion J90 Afib I48.91 Hypomagnesemia E83.42 Hyperglycemia R73.9
[2023-12-19] MEDS ORDERED: AZITHROMYCIN 250 MG TAB PO SCH (09:00)
[2023-12-19] MEDS: APIXABAN 5 MG TABLET PO SCH ×2 (09:00→20:07)
[2023-12-19] MEDS: INSULIN ASPART PER UNIT CHARGE SC SCH ×4 (09:01→20:08)
[2023-12-19] MEDS: FUROSEMIDE 40 MG/4 ML VIAL IV SCH (09:03)
[2023-12-19] MEDS: guaiFENesin 600 MG TABCR PO SCH ×2 (09:03→20:07)
[2023-12-19] MEDS: FOLIC ACID 1 MG TAB PO SCH (09:03)
[2023-12-19] MEDS: PANTOprazole 40 MG TAB PO SCH ×2 (09:03→20:06)
[2023-12-19] MEDS: LANTUS PER UNIT CHARGE SQ SCH ×2 (09:03→20:08)
[2023-12-19] MEDS: DOXYCYCLINE HYCLATE 100 MG CAP PO SCH ×2 (09:03→20:07)
[2023-12-19] MEDS: METOPROLOL SUCC 50MG EXT REL TAB PO SCH ×2 (09:03→20:07)
[2023-12-19] MEDS: dilTIAZem HCL 180 MG CAPCR PO SCH (09:04)
[2023-12-19] MEDS: ROSUVASTATIN CALCIUM 20 MG TAB PO SCH (09:04)
[2023-12-19] MEDS: ASPIRIN 81 MG ECTAB PO SCH (09:04)
[2023-12-19] MEDS: buPROPion XL 150 MG TABCR PO SCH (09:04)
[2023-12-19] MEDS: LOSARTAN POTASSIUM 50 MG TAB PO SCH (09:04)
[2023-12-19] MEDS: UMECLIDINIUM BROMIDE 62.5MCG/BLISTER 7 PUFFS/INHALER INH SCH (09:04)
[2023-12-19] MEDS: CYANOCOBALAMIN (B-12) 500 MCG TABLET PO SCH (09:04)
[2023-12-19] MEDS ORDERED: SODIUM CHLORIDE 0.65% NA SOLN 45 ML (OCEAN) PRN (17:20)
[2023-12-20] MEDS: ALBUT/IPRATROP 3MG/0.5MG NEB 3 ML VIAL NEB SCH ×4 (07:12→19:10)
[2023-12-20] MEDS: SODIUM CHLOR 7% 4 ML NEB NEB SCH ×2 (07:12→19:10)
[2023-12-20] MEDS: BUDESONIDE 0.5 MG/2 ML VIAL (PULMICORT) NEB SCH ×2 (07:13→19:10)
[2023-12-20] MEDS: oxyCODONE HCL IR 5 MG TAB (IMMEDIATE RELEASE) PO PRN ×3 (07:23→20:36)
[2023-12-20 07:28] LABS: Basophils # (auto) 0.06 K/uL (0.00-0.20); Basophils % (auto) 0.6 %; Eosinophils # (auto) 0.15 K/uL (0.00-0.50); Eosinophils % (auto) 1.5 %; Hematocrit (blood only) 32.4 % (37.0-47.0); Hemoglobin 9.7 g/dl (12.0-16.0); Immature Granulocytes # (auto) 0.12 K/uL (0.01-0.20); Immature Granulocytes % (auto) 1.2 %; Lymphocytes % (auto) 14.6 %; Mean Corpuscular Hgb Conc 29.9 g/dL (32.0-36.0); Mean Corpuscular Volume 90.3 fL (80.0-100.0); Mean Platelet Volume 9.7 fL (9.4-12.4); Monocytes # (auto) 0.72 K/uL (0.11-0.59); Neutrophils % (auto) 75.1 %; Platelet Count 367 K/uL (130-400); RDW Coefficient of Variation 19.2 % (11.5-14.5); RDW Standard Deviation 63.8 fL (36.4-46.3); Red Blood Count 3.59 M/uL (4.20-5.40); White Blood Count 10.25 K/ul (4.8-10.8)
[2023-12-20] MEDS: INSULIN ASPART PER UNIT CHARGE SC SCH ×4 (08:34→20:39)
[2023-12-20] MEDS: METOPROLOL SUCC 50MG EXT REL TAB PO SCH ×2 (08:35→20:40)
[2023-12-20] MEDS: ROSUVASTATIN CALCIUM 20 MG TAB PO SCH (08:35)
[2023-12-20] MEDS: APIXABAN 5 MG TABLET PO SCH ×2 (08:35→20:39)
[2023-12-20] MEDS: PANTOprazole 40 MG TAB PO SCH ×2 (08:35→20:37)
[2023-12-20] MEDS: DOXYCYCLINE HYCLATE 100 MG CAP PO SCH ×2 (08:35→20:37)
[2023-12-20] MEDS: UMECLIDINIUM BROMIDE 62.5MCG/BLISTER 7 PUFFS/INHALER INH SCH (08:35)
[2023-12-20] MEDS: guaiFENesin 600 MG TABCR PO SCH ×2 (08:35→20:39)
[2023-12-20] MEDS: buPROPion XL 150 MG TABCR PO SCH (08:35)
[2023-12-20] MEDS: LOSARTAN POTASSIUM 50 MG TAB PO SCH (08:36)
[2023-12-20] MEDS: FOLIC ACID 1 MG TAB PO SCH (08:36)
[2023-12-20] MEDS: ASPIRIN 81 MG ECTAB PO SCH (08:36)
[2023-12-20] MEDS: dilTIAZem HCL 180 MG CAPCR PO SCH (08:37)
[2023-12-20] MEDS: LANTUS PER UNIT CHARGE SQ SCH ×2 (08:46→20:36)
[2023-12-20] MEDS ORDERED: FUROSEMIDE 40 MG TAB PO SCH (09:00)
[2023-12-20] MEDS: CYANOCOBALAMIN (B-12) 500 MCG TABLET PO SCH (10:58)
--- NOTE | 2023-12-20 13:16 | Hospitalist Progress Note ---
Date of Service December 20, 2023 Assessment & Plan (1) Acute on chronic respiratory failure with hypoxia and hypercapnia: Plan: Acute presentation appears to be both an acute exacerbation of COPD, and acute on chronic diastolic CHF. Fortunately she is improving quite nicely. pleural effusionnot in need of thoracentesis Continue current management for CHF transition to p.o. Lasix on 12/20 COPD exacerbation she was given Solu-Medrol in the ER last nightno steroids have been continuedwill hold off on further steroids at this point in time but continue nebulizers. Leukocytosis likely from steroid bolus given in the emergency department Doubt acute pneumonia, and I suspect the findings that were consistent with pneumonia on her current imaging are both compressive atelectasis from the effusion and possibly a degree of residual changes from her prior p neumoniadowngraded antibiotics to doxycycline largely for pulmonary anti- inflammatory effect (considered azithromycin, but pharmacy raised concern of QT prolongation). Patient returns in short order after being discharged on BiPAP ST. She failed home therapy and was readmitted after less than 3 weeks at home Main issue on 12/20 is hypoxia. WIll repeat chest x ray. Order additional dose of lasix. Will also consult pulmonary. (2) COPD with acute exacerbation: Plan: Pulmonary concerned that BiPAP is not effective modality to treat this patient and wish for Trelegy to be prescribed which she met criteria (3) Pleural effusion: Plan: Likely diastolic CHF related or possibly residual from her prior pneumoniaconsider the need for thoracentesis. (4) Afib: Plan: Rate controlled, anticoagulated, metoprolola and diltiazem with eliquis for AC (5) Hypomagnesemia: Plan: replete (6) Hyperglycemia: Plan: Type 2 diabetesbasal bolus insulin management. adjusted glargine to bid Admission and Anticipated Discharge Date Admission Date: December 17, 2023 Subjective 73 yo female reports no new symptoms. Nurse reports she continues to require large amounts of oxygen, even with 6 liters, patient desaturates when ambulating to low 80s. Review of Systems Review of Systems: All systems reviewed & are unremarkable except as noted in HPI & below Physical Exam Physical Exam: Constitutional: No acute distress HEENT: EOMI, PERRLA Respiratory system: Decreased air entry bilaterally, minimal expiratory wheeze bilaterally, no rhonchi, mild crackles bilateral lower lobes CVS: S1-S2 positive, no murmurs or gallops Abdomen: Soft, nontender, nondistended, positive bowel sounds x4, obese Extremities: +2 pulses bilaterally radialis/ dorsalis pedis, no cyanosis, no edema Neuro: Awake alert oriented x3 Psych: Normal mood and affect G/U: Positive Gutierrez Results & Data Results & Data Vital Signs (Past 12 Hours) Vital Signs Temp Pulse Pulse Resp BP Pulse Ox O2 Del Method 12/20/23 11:45 55 L 20 153/65 H 98 Nasal Cannula 12/20/23 11:18 60 14 90 Nasal Cannula 12/20/23 08:00 55 L 12/20/23 08:00 Nasal Cannula 12/20/23 07:44 36.8 C 60 19 150/68 H 92 Nasal Cannula 12/20/23 07:14 63 14 94 Nasal Cannula 12/20/23 03:31 36.6 C 65 20 147/66 H 94 Nasal Cannula O2 Flow Rate 12/20/23 11:45 12/20/23 11:18 5 12/20/23 08:00 12/20/23 08:00 6 12/20/23 07:44 6 12/20/23 07:14 6 12/20/23 03:31 6 PG Care Time/CCT Total # of Minutes Spent Total Time Spent with Patient: Total time spent is greater than 50% in coordination of care (as documented) at patient's floor/unit and/or counseling patient: Coding Level of Care Code 64170 SUB INP/OBS CARE 3/50MIN Diagnoses Acute on chronic respiratory failure with hypoxia and hypercapnia J96.21; J96.22 COPD with acute exacerbation J44.1 Pleural effusion J90 Afib I48.91 Hypomagnesemia E83.42 Hyperglycemia R73.9 Time Spent (min) 50
--- NOTE | 2023-12-20 13:29 | Pulmonary Consultation ---
Date of Consultation December 20, 2023 Assessment & Plan (1) Pleural effusion: (2) Acute on chronic respiratory failure with hypoxia and hypercapnia: (3) Current smoker: (4) COPD, very severe: Plan PFT 01/17/2020 personally reviewed: Severe obstructive lung dysfunction, significant bronchodilator response, increased lung volume with air trapping FVC 1.96 L 72%, FEV1 0.94 L 48%, FEV1/FVC 47%, TLC 169%, RV/DLCO 188% CT chest 12/17/2023: Centrilobular and paraseptal emphysema appreciated bilaterally Interlobular thickening appreciated Moderate right-sided pleural effusion with dependent atelectasis Minimal right hilar lymphadenopathy 2D echo 11/23/2023: EF 65 to 70%, RVSP 40-50 mmHg -- Severe COPD with emphysema Gold E On high-dose Symbicort and spiriva at home QTc 485, not a good candidate for azithromycin Nasal MRSA negative Respiratory bio fire negative for everything on 12/17/2023 Procalcitonin negative --Right-sided pleural effusion BNP 218 Likely from diastolic CHF Recommend diuresis No plan for thoracentesis --Chronic hypoxic respiratory failure On 4 L oxygen at home --A-fib On apixaban --DNR/DNI on last admission Plan: Continue with diuretics to keep the patient negative balance Continue with nebulized budesonide, I will add Perforomist to the regimen along with Incruse Given the expiratory wheeze I will give the patient prednisone 40 mg for 3 days Continue with Mucinex with flutter valve BiPAP nightly and as needed shortness of breath Please note the above document was generated using voice recognition software. It may contain grammatical, syntax or spelling errors.Any formal questions or concerns about the content, text or information contained within the body of this dictation should be directly addressed to the provider for clarification. History of Present Illness Attending Physician: Jigar Hein History of Present Illness 73-year-old female presented to the hospital with complaints of shortness of breath Past medical history: COPD, hypertension, dyslipidemia, chronic hypoxic respiratory failure on 3 L oxygen at home, chronic low back pain, diabetes Pulmonary consulted for COPD exacerbation I saw the patient last earlier this month for the same reason Patient was discharged home on Trilogy AVAPS machine but unfortunately she has not been using it at home. 92% on 5 L nasal cannula. She was not in any respiratory distress She stated that she has not been using the trilogy machine. She is compliant with her inhalers. She is still actively smoking. Does complain of cough and bringing up clear phlegm. Denies any hemoptysis No dysuria, no diarrhea at home No fever or chills No nausea or vomiting Fair appetite Social history:> [id number] smoking history, currently smoking a pack a day Has cats and dogs at home Strong family history of lung cancer in father, mother as well as brother who are all smokers at the time of examination patient was saturating Allergies Allergy/AdvReac Type Severity Reaction Status Date / Time diflunisal AdvReac Intermediate HEART RACES Verified 12/08/23 16:50 Home Medications Medication Instructions Recorded Confirmed Type albuterol sulfate 90 mcg/actuation 2 puff inhalation Q6 PRN Shortness 08/28/20 12/17/23 History aerosol inhaler (Ventolin HFA) Of Breath Or Wheezing aspirin 81 mg tablet,delayed 81 mg PO QAM 08/28/20 12/17/23 History release (Uri Low Dose Aspirin) metformin 1,000 mg tablet 1,000 mg PO BID 08/28/20 12/17/23 History blood sugar diagnostic (OneTouch #50 ea 06/02/21 12/17/23 Rx Verio test strips) blood-glucose meter (OneTouch #1 ea 06/02/21 12/17/23 Rx Verio Meter) lancets 33 gauge (OneTouch Delica #100 ea 06/02/21 12/17/23 Rx Lancets) folic acid 1 mg tablet 1 mg PO QAM 03/24/22 12/17/23 History losartan 50 mg tablet 50 mg PO QAM 03/24/22 12/17/23 History ipratropium 0.5 mg-albuterol 3 mg 3 ml inhalation Q4H PRN shortness 12/13/22 12/17/23 Rx (2.5 mg base)/3 mL nebulization of breath #90 mL soln bupropion HCl 150 mg 24 hr tablet, 150 mg PO DAILY 08/23/23 12/17/23 History extended release rosuvastatin 20 mg tablet 20 mg PO DAILY 08/23/23 12/17/23 History apixaban 5 mg tablet (Eliquis) 5 mg PO BID #60 tabs 09/10/23 12/17/23 Rx diltiazem HCl 180 mg 180 mg PO QAM #30 caps 09/10/23 12/17/23 Rx capsule,extended release 24 hr glipizide 5 mg tablet 5 mg PO DAILY #30 tabs 09/10/23 12/17/23 Rx metoprolol succinate 50 mg 50 mg PO BID #60 tabs 09/10/23 12/17/23 Rx tablet,extended release 24 hr oxycodone 5 mg tablet 5 mg PO TID PRN Pain #30 tabs 09/10/23 12/17/23 Rx budesonide-formoterol HFA 160 2 puff inhalation BID 09/21/23 12/17/23 History mcg-4.5 mcg/actuation aerosol inhaler cyanocobalamin (vitamin B-12) 500 1,000 mcg (2 x 500 mcg) PO QAM #30 11/24/23 12/17/23 Rx mcg tablet tabs furosemide 40 mg tablet 40 mg PO QAM #30 tabs 11/24/23 12/17/23 Rx pantoprazole 40 mg tablet,delayed 40 mg PO BID #60 tabs 11/24/23 12/17/23 Rx release sodium chloride 7 % for 4 ml NEB BIDR #240 mL 11/24/23 12/17/23 Rx nebulization tiotropium bromide 1.25 2 puff inhalation DAILY #4 grams 11/24/23 12/17/23 Rx mcg/actuation mist for inhalation (Spiriva Respimat) Patient History Medical History Severe muscle deconditioning COPD exacerbation Acute on chronic respiratory failure with hypoxia Chronic pain syndrome Abdominal pain Respiratory failure Hyperkalemia Diabetes type 2, uncontrolled Acute hypercapnic respiratory failure TATY (acute kidney injury) AMS (altered mental status) Syncope Acute UTI Acute hypotension Chronic kidney disease, stage 3a Acute kidney injury Acute exacerbation of chronic low back pain Candidiasis of mouth and esophagus Tobacco abuse DVT prophylaxis Diabetes mellitus COPD (chronic obstructive pulmonary disease) Hypertension Hyperlipidemia Acute on chronic respiratory failure with hypoxia and hypercapnia History of knee replacement Left peroneal nerve palsy AAA (abdominal aortic aneurysm) Diaphragmatic hernia (10/31/11) Chronic low back pain Surgical History History of bilateral oophorectomies History of appendectomy History of lithotripsy (~2007) H/O Achilles tendon repair (~2007) Hx of cholecystectomy H/O: hysterectomy Family History Other Family history non-contributory Social History Smoking Status: Current every day smoker Tobacco Type: Cigarettes Age Started Using Tobacco: 32; Cigarettes Per Day: 1/2 ppd; Second Hand Exposure: Yes; Do You Dip or Chew Tobacco: No; Tobacco Cessation Education Requested by Patient: No Hx Alcohol Use: No Hx Substance Use: No Preferred Language: Malagasy Communication Ability: Effective Corporate Tutor Required: No Beliefs That Will Affect Care: None marital status: Current Living Situation: Spouse Current Living Situation Comment: Lives at home with How many Children do You have: 3 Other Information That Helps Us Care for You: No Feels Safe at Home: Yes Safety Concerns: Feels Safe At This Time Assistive Devices: Oxygen - Continuous Review of Systems 2 Review of Systems: All systems reviewed & are unremarkable except as noted in HPI & below Physical Exam 2 Physical Exam: Constitutional: No acute distress HEENT: EOMI, PERRLA Respiratory system: Decreased air entry bilaterally, minimal expiratory wheeze bilaterally, no rhonchi, mild crackles bilateral lower lobes CVS: S1-S2 positive, no murmurs or gallops Abdomen: Soft, nontender, nondistended, positive bowel sounds x4, obese Extremities: +2 pulses bilaterally radialis/ dorsalis pedis, no cyanosis, no edema Neuro: Awake alert oriented x3 Psych: Normal mood and affect G/U: Positive Gutierrez Skin: no rashes, warm and dry Lymphatic: no cervical or axillary lymphadenopathy Results & Data Results & Data Vital Signs (Past 12 Hours) Vital Signs Temp Pulse Pulse Resp BP Pulse Ox O2 Del Method 12/20/23 11:45 55 L 20 153/65 H 98 Nasal Cannula 12/20/23 11:18 60 14 90 Nasal Cannula 12/20/23 08:00 55 L 12/20/23 08:00 Nasal Cannula 12/20/23 07:44 36.8 C 60 19 150/68 H 92 Nasal Cannula 12/20/23 07:14 63 14 94 Nasal Cannula 12/20/23 03:31 36.6 C 65 20 147/66 H 94 Nasal Cannula O2 Flow Rate 12/20/23 11:45 12/20/23 11:18 5 12/20/23 08:00 12/20/23 08:00 6 12/20/23 07:44 6 12/20/23 07:14 6 12/20/23 03:31 6 Laboratory Results 12/20/23 07:00 12/19/23 07:30 PG Care Time/CCT Total # of Minutes Spent Total Time Spent with Patient: Total time spent is greater than 50% in coordination of care (as documented) at patient's floor/unit and/or counseling patient: Coding Level of Care Code 40230 INT INP/OBS CARE 3/75MIN Diagnoses Pleural effusion J90 Acute on chronic respiratory failure with hypoxia and hypercapnia J96.21; J96.22 Current smoker F17.200 COPD, very severe J44.9
--- NOTE | 2023-12-20 14:25 | XRay Report ---
XR chest 2V PA/lateral HISTORY: hypoxia COMPARISON: Chest CTA 12/17/2023. FINDINGS: No pneumothorax. Small right pleural effusion right basilar densities have improved. The he art is normal in size. There are calcifications within the aortic knob. Emphysema again noted. No lanie dence for pulmonary edema. No acute fractures. A small left pleural effusion is noted. IMPRESSION: 1. Interval improvement in the small right pleural effusion and right basilar densities. 2. A small left pleural effusion is noted. 3. Emphysema. ACT 112: Negative or not required by law. Electronically signed by: Wicho Gutierrez M.D. 12/20/2023 2:23 PM
[2023-12-20] MEDS ORDERED: FUROSEMIDE INJ 20 MG/2 ML VIAL IV ONE (16:31)
[2023-12-20 17:25] LABS: Anion Gap 6 (3-11); BUN Creatinine Ratio 20.2 (10-20); Blood Urea Nitrogen 22 mg/dl (6-23); C Reactive Protein < 0.50 mg/dl (0-0.5); Calcium 9.3 mg/dl (8.6-10.3); Carbon Dioxide 34 mmol/L (21-32); Chloride 100 mmol/L (98-107); Est GFR (African American) 59.1 ml/min; Glucose 142 mg/dl (70-99(Fasting)); Sodium 140 mmol/L (136-145)
[2023-12-20] MEDS: predniSONE 20 MG TAB PO SCH (18:08)
[2023-12-20] MEDS: FORMOTEROL 20 MCG/2 ML VIAL NEB SCH (19:10)
[2023-12-21] MEDS: oxyCODONE HCL IR 5 MG TAB (IMMEDIATE RELEASE) PO PRN ×2 (05:51→11:34)
[2023-12-21 06:34] LABS: Hematocrit (blood only) 36.3 % (37.0-47.0); Hemoglobin 10.8 g/dl (12.0-16.0); Mean Corpuscular Hemoglobin 27.1 pg (25.0-34.0); Mean Corpuscular Hgb Conc 29.8 g/dL (32.0-36.0); Mean Platelet Volume 9.5 fL (9.4-12.4); Platelet Count 354 K/uL (130-400); RDW Coefficient of Variation 19.3 % (11.5-14.5); Red Blood Count 3.99 M/uL (4.20-5.40); White Blood Count 9.08 K/ul (4.8-10.8)
[2023-12-21 07:03] LABS: BUN Creatinine Ratio 24.6 (10-20); Calcium 9.3 mg/dl (8.6-10.3); Creatinine Clr Calc Pharmacy 38.9 ml/min; Est GFR (African American) 53.7 ml/min; Est GFR (Non-African American) 46.4 ml/min; Potassium 4.3 mmol/L (3.5-5.1)
[2023-12-21] MEDS: ALBUT/IPRATROP 3MG/0.5MG NEB 3 ML VIAL NEB SCH ×2 (07:12→09:53)
[2023-12-21] MEDS: SODIUM CHLOR 7% 4 ML NEB NEB SCH (07:12)
[2023-12-21] MEDS: FORMOTEROL 20 MCG/2 ML VIAL NEB SCH (07:12)
[2023-12-21] MEDS: BUDESONIDE 0.5 MG/2 ML VIAL (PULMICORT) NEB SCH (07:12)
[2023-12-21] MEDS: INSULIN ASPART PER UNIT CHARGE SC SCH ×2 (08:42→12:10)
[2023-12-21] MEDS: dilTIAZem HCL 180 MG CAPCR PO SCH (08:42)
[2023-12-21] MEDS: LOSARTAN POTASSIUM 50 MG TAB PO SCH (08:43)
[2023-12-21] MEDS: METOPROLOL SUCC 50MG EXT REL TAB PO SCH (08:43)
[2023-12-21] MEDS: APIXABAN 5 MG TABLET PO SCH (08:43)
[2023-12-21] MEDS: ROSUVASTATIN CALCIUM 20 MG TAB PO SCH (08:43)
[2023-12-21] MEDS: CYANOCOBALAMIN (B-12) 500 MCG TABLET PO SCH (08:43)
[2023-12-21] MEDS: guaiFENesin 600 MG TABCR PO SCH (08:43)
[2023-12-21] MEDS: buPROPion XL 150 MG TABCR PO SCH (08:43)
[2023-12-21] MEDS: ASPIRIN 81 MG ECTAB PO SCH (08:43)
[2023-12-21] MEDS: PANTOprazole 40 MG TAB PO SCH (08:44)
[2023-12-21] MEDS: DOXYCYCLINE HYCLATE 100 MG CAP PO SCH (08:44)
[2023-12-21] MEDS: predniSONE 20 MG TAB PO SCH (08:44)
[2023-12-21] MEDS: FOLIC ACID 1 MG TAB PO SCH (08:44)
[2023-12-21] MEDS: UMECLIDINIUM BROMIDE 62.5MCG/BLISTER 7 PUFFS/INHALER INH SCH (08:44)
[2023-12-21] MEDS: LANTUS PER UNIT CHARGE SQ SCH (08:47)
--- NOTE | 2023-12-21 09:46 | XRay Report ---
XR chest 2V PA/lateral CLINICAL HISTORY: pleural effusion/ may go without monitor TECHNIQUE: 2 views of the chest were obtained. Comparison: Comparison is made to chest radiograph 12/20/2023 FINDINGS: No lines and tubes are seen. Calcified aortic knob is seen. The lungs are clear. Small right and trac e left pleural effusions. IMPRESSION: Small right and trace left pleural effusions, similar to prior exam. ACT 112: Negative or not required by law. Electronically signed by: Tushar Souza M.D. 12/21/2023 9:45 AM
[2023-12-21] MEDS ORDERED: FUROSEMIDE INJ 20 MG/2 ML VIAL IV ONE (12:26)
--- NOTE | 2023-12-21 12:27 | Discharge Summary ---
Date of Service December 21, 2023 Admission HPI Per Admitting Provider The patient is a 73-year-old female with a past medical history including COPD exacerbations, pleural effusion, CHF, chronic respiratory failure with 4 L nasal cannula oxygen dependency, tobacco use, metabolic encephalopathy, atrial fibrillation, urinary tract infections and CKD. The patient has had worsening shortness of breath, chest congestion and increased sputum production over the past several days, feels generally weak, was brought to the emergency department by EMS, with some improvement in symptoms with 2 DuoNeb treatments en route to the hospital. Patient initially was on nasal cannula, which then was changed to oxime mask, and then was placed on BiPAP 7/5 at 60% FiO2 with improvement in comfort while in the ED. Principal Diagnosis problem 1 Discharge Exam Constitutional: No acute distress walking in the halls without oxygen Discharge Data Allergies Allergy/AdvReac Type Severity Reaction Status Date / Time diflunisal AdvReac Intermediate HEART RACES Verified 12/08/23 16:50 Consultations 12/17/23 22:20 ED Decision to Admit Stat 12/20/23 13:16 Consult Pulmonology Routine Ordered Studies 12/17/23 19:44 CT angio chest PE protocol Stat Hospital Course (1) Acute on chronic respiratory failure with hypoxia and hypercapnia: Acute presentation appears to be both an acute exacerbation of COPD, and acute on chronic diastolic CHF. Fortunately she is improving quite nicely. pleural effusionnot in need of thoracentesis Continue current management for CHF transition to p.o. Lasix on 12/20 COPD exacerbation she was given Solu-Medrol in the ER last nightno steroids have been continuedwill hold off on further steroids at this point in time but continue nebulizers. Leukocytosis likely from steroid bolus given in the emergency department Doubt acute pneumonia, and I suspect the findings that were consistent with pneumonia on her current imaging are both compressive atelectasis from the effusion and possibly a degree of residual changes from her prior pneumoniadowngraded antibiotics to doxycycline largely for pulmonary anti- inflammatory effect (considered azithromycin, but pharmacy raised concern of QT prolongation). Patient returns in short order after being discharged on BiPAP ST. She failed home therapy and was readmitted after less than 3 weeks at home Main issue on 12/20 is hypoxia. WIll repeat chest x ray. Order additional dose of lasix. On day of discharge: I explained to the patient the following: I would prefer she would be discharged tomorrow. She was found to have a COPD with an acute flair. Her COPD is severe and puts her at risk of another flair. We will recommend pulmonary rehab. She may also benefit from a trilogy machine. We will also recommend she followup with kaylee PCP. I had a discussion with the pulmonary doctor,and there is concern this could be your new baseline, requiring 5-6 liters of oxygen. Hopefully with the current treatment, sge can continue to improve. Recommend close followup with PCP in 1-2 weeks. However patient signed out against medical advice prior to completion of discharge. (2) COPD with acute exacerbation: Pulmonary concerned that BiPAP is not effective modality to treat this patient and wish for Trelegy to be prescribed which she met criteria (3) Pleural effusion: Likely diastolic CHF related or possibly residual from her prior pneumoniaconsider the need for thoracentesis. (4) Afib: Rate controlled, anticoagulated, metoprolola and diltiazem with eliquis for AC (5) Hypomagnesemia: replete (6) Hyperglycemia: Type 2 diabetesbasal bolus insulin management. adjusted glargine to bid Total Time Total Time Spent Total Time Spent (In Minutes): 32 Discharge Plan Discharge Items Patient Disposition: Against Medical Advice Reason For Visit: ACUTE ON CHRONIC RESP FAIL W/ HYPOXIA Activity: Resume your previous activity Non-emergency contact: Primary Care Provider Follow-up/Referrals: Rosi Borges CRNP [Primary Care Provider] - Pending Studies at Discharge: No Stand-Alone Forms: My [facility] [employer], Smoking Cessation Medications and DC Order Prescriptions: New guaifenesin [Mucinex] 600 mg Tablet Extended Release 12hr 1,200 mg PO Q12 Qty: 30 0RF doxycycline hyclate 100 mg Capsule 100 mg PO BID Qty: 3 0RF prednisone 20 mg Tablet 40 mg PO DAILY Qty: 4 0RF Continued aspirin [Uri Low Dose Aspirin] 81 mg Tablet,Delayed Release (Dr/Ec) 81 mg PO QAM Hold Instructions: Resume on 11/28/23. hold until seen by primary care albuterol sulfate [Ventolin HFA] 90 mcg/actuation HFA aerosol inhaler 2 puff INHALATION Q6 PRN (Reason: Shortness Of Breath Or Wheezing) metformin 1,000 mg tablet 1,000 mg PO BID (DME) blood-glucose meter [OneTouch Verio Meter] Misc See Rx Instructions .ROUTE .MEDSUPPLY Qty: 1 0RF Rx Instructions: to test blood sugar 1-2 times/day (DME) OneTouch Verio test strips Strip See Rx Instructions .ROUTE .MEDSUPPLY Qty: 50 3RF Rx Instructions: test blood sugar 1-2 times per day (DME) lancets [OneTouch Delica Lancets] 33 gauge misc See Rx Instructions .ROUTE .MEDSUPPLY Qty: 100 3RF Rx Instructions: test sugar 1-2 times per day losartan 50 mg tablet 50 mg PO QAM folic acid 1 mg tablet 1 mg PO QAM rosuvastatin 20 mg tablet 20 mg PO DAILY bupropion HCl 150 mg tablet extended release 24 hr 150 mg PO DAILY budesonide-formoterol 160-4.5 mcg/actuation HFA aerosol inhaler 2 puff INHALATION BID furosemide 40 mg Tablet 40 mg PO QAM Qty: 30 0RF sodium chloride 7 % Solution For Nebulization 4 ml NEB BIDR Qty: 240 0RF cyanocobalamin (vitamin B-12) 500 mcg Tablet 1,000 mcg PO QAM Qty: 30 0RF Spiriva Respimat 1.25 mcg/actuation mist 2 puff inhalation DAILY Qty: 4 0RF pantoprazole 40 mg Tablet,Delayed Release (Dr/Ec) 40 mg PO BID Qty: 60 0RF ipratropium-albuterol 0.5 mg-3 mg(2.5 mg base)/3 mL solution for nebulization 3 ml inhalation Q4H PRN (Reason: shortness of breath) Qty: 90 0RF Rx Instructions: until breathing returns to target peak flow/parameters Eliquis 5 mg Tablet 5 mg PO BID Qty: 60 5RF Hold Instructions: Resume on 11/28/23. hold until discussed with primary care diltiazem HCl 180 mg Capsule,Extended Release 24hr 180 mg PO QAM Qty: 30 5RF glipizide 5 mg tablet 5 mg PO DAILY Qty: 30 0RF Rx Instructions: please take while on prednisone metoprolol succinate 50 mg tablet extended release 24 hr 50 mg PO BID Qty: 60 5RF oxycodone 5 mg tablet 5 mg PO TID PRN (Reason: Pain) Qty: 30 0RF Discharge Orders: Left Against Medical Advice (Routine); Ordered 12/21/23 Ordered By: Jgiar Cobb/Other Patient Handouts: Managing Type 2 Diabetes Admission Data Admit Date/Time: 12/17/23 23:10 Attending Provider: Jigar Hein Admit Provider: Danie Mckay Primary Care Provider: Rosi Borges Other Providers: Danie Mckay; Edilson Durand Coding Level of Care Code 94684 INP/OBS DISCH >30 MIN Diagnoses Acute on chronic respiratory failure with hypoxia and hypercapnia J96.21; J96.22 COPD with acute exacerbation J44.1 Pleural effusion J90 Afib I48.91 Hypomagnesemia E83.42 Hyperglycemia R73.9
== END 2023-12-21 13:14 | disposition left against medical advice (07) | DRG 189 ==
LOC: ED 19:09 → SUATTDRO 23:10 → 2S 23:10

== ENCOUNTER 2024-02-09 21:10 | Inpatient (IN) ==
--- NOTE | 2024-02-09 21:34 | Emergency Department Note ---
Impression & Plan Acute hypoxemic respiratory failure, Abdominal pain, Shortness of breath, Pleural effusion, Acute confusion, Acute UTI (urinary tract infection) ED Provider Note HISTORY OF PRESENT ILLNESS: Patient is a 74-year-old female presenting with shortness of breath and confusion. Patient presents with EMS from her home. had called 911 after she started throwing up and having difficulties breathing. She reportedly has been having difficulties breathing for most of the day and he had administered a nebulizer treatment and then she proceeded to vomit. EMS reports that on their arrival, the patient was noted to be 85% on 4 L nasal cannula. She wears 4 L at baseline. On arrival to the ER, nursing noted that the patient had a saturation 79% on room air. Patient is having intermittent episodes of confusion does not provide any meaningful history. She is complaining of generalized abdominal pain. No reported fevers per report. ROS: as above PHYSICAL EXAM: Constitutional: Patient appears in no acute distress. HENT: Head: Normocephalic and atraumatic. Eyes: EOMI, PERRL Mouth/Throat: Mucous membranes moist. Neck: Trachea midline. Neck supple. Cardiovascular: RRR, No murmurs, rubs or gallops. Intact distal pulses. Pulmonary/Chest: No respiratory distress. Breath sounds clear and equal bilaterally. No wheezes or rales. Abdominal: Abdomen soft, no rebound or guarding. Diffuse TTP Musculoskeletal: No tenderness or deformity noted. +2 pitting edema of bilateral lower extremities extending to knees. Skin: Warm and dry. No rash, erythema, pallor or cyanosis Neurological: Alert but confused. CN II-XII grossly intact, moving all extremities spontaneously. MDM: - Vitals signs showed hypoxia on room air. Patient saturations were in the 70s on room air. She was initially placed on an oxime mask with improvement in her saturations. I placed the patient back on her 4 L nasal cannula with saturations of 97%. - History obtained via nursing staff from EMS, given patient's confusion. History as above. - Chronic conditions affecting care: COPD; DM-2; CKD; HTN; HLD; AAA - Differential diagnoses include, but are not limited to: Congestive heart failure; acute coronary syndrome; COPD/asthma exacerbation; pulmonary edema; pulmonary embolism; pneumonia; pneumothorax; viral syndrome - Order placed for continuous cardiac monitoring. At this time, monitor showed rate of 65 bpm with normal sinus rhythm, per my interpretation. - External medical records reviewed. EMS run sheet was reviewed. Patient was hypoxic on their arrival and placed on 6 L nasal cannula. - EKG interpreted by myself showed normal sinus rhythm. Rate 65 bpm. QT 434. No acute ischemic changes - Laboratory workup interpreted by myself showed normal WBC; anemia (Hgb 9.5); stable electrolytes; normal lactate; normal troponin; elevated BNP (111) - UA showed evidence of infection. Given 2g IV rocephin - Respiratory viral panel negative - CXR showed pulmonary vascular congestion, per my interpretation. - VBG showed respiratory acidosis, with a pH of 7.29 and a pCO2 of 72. Patient was placed on BiPAP. - CTA chest/abdomen/pelvis moderate right-sided pleural effusion and right middle lobe infiltrate concerning for infection vs inflammation. Abdominal scan shows 4.3 cm infrarenal abdominal aortic aneurysm. - Discussion was had with case mgr about patient's case and need for admission - Hospitalist consulted for admission - Patient admitted to [] service for further evaluation and management. I have personally spent 46 minutes of critical care time in the direct management of this patient. This includes bedside care, interpretation of diagnostic studies, and testing, discussion with consultants, patient, and family members, and other required patient management activities. This 46 minutes is in excess of all separately billable procedures. ASSESSMENT AND PLAN: Diagnosis: acute hypoxic respiratory failure; pneumonia; UTI; abdominal pain; pleural effusion; acute confusion Plan: Admit Past Med/Surg History Medical History Severe muscle deconditioning COPD exacerbation Acute on chronic respiratory failure with hypoxia Chronic pain syndrome Abdominal pain Respiratory failure Hyperkalemia Diabetes type 2, uncontrolled Acute hypercapnic respiratory failure TATY (acute kidney injury) AMS (altered mental status) Syncope Acute UTI Acute hypotension Chronic kidney disease, stage 3a Acute kidney injury Acute exacerbation of chronic low back pain Candidiasis of mouth and esophagus Tobacco abuse DVT prophylaxis Diabetes mellitus COPD (chronic obstructive pulmonary disease) Hypertension Hyperlipidemia Acute on chronic respiratory failure with hypoxia and hypercapnia History of knee replacement Left peroneal nerve palsy AAA (abdominal aortic aneurysm) Diaphragmatic hernia (10/31/11) Chronic low back pain Surgical History History of bilateral oophorectomies History of appendectomy History of lithotripsy (~2007) H/O Achilles tendon repair (~2007) Hx of cholecystectomy H/O: hysterectomy Family History Other Family history non-contributory Social History Smoking Status: Unknown if ever smoked Tobacco Type: Cigarettes Age Started Using Tobacco: 32; Cigarettes Per Day: 1/2 ppd; Second Hand Exposure: Yes; Do You Dip or Chew Tobacco: No; Hx Alcohol Use: No Hx Substance Use: No Preferred Language: Bulgarian Communication Ability: Effective [employer] Required: No Beliefs That Will Affect Care: None marital status: Current Living Situation: Spouse Current Living Situation Comment: Lives at home with How many Children do You have: 3 Feels Safe at Home: Yes Assistive Devices: BiPap and Oxygen - Continuous Allergies Allergies Allergy/AdvReac Type Severity Reaction Status Date / Time diflunisal AdvReac Intermediate HEART RACES Verified 12/08/23 16:50 Home Meds Home Medications Medication Instructions Recorded Confirmed albuterol sulfate 90 mcg/actuation 2 puff inhalation Q6 PRN Shortness 08/28/20 12/17/23 aerosol inhaler (Ventolin HFA) Of Breath Or Wheezing aspirin 81 mg tablet,delayed 81 mg PO QAM 08/28/20 12/17/23 release (Uri Low Dose Aspirin) metformin 1,000 mg tablet 1,000 mg PO BID 08/28/20 12/17/23 folic acid 1 mg tablet 1 mg PO QAM 03/24/22 12/17/23 losartan 50 mg tablet 50 mg PO QAM 03/24/22 12/17/23 bupropion HCl 150 mg 24 hr tablet, 150 mg PO DAILY 08/23/23 12/17/23 extended release rosuvastatin 20 mg tablet 20 mg PO DAILY 08/23/23 12/17/23 budesonide-formoterol HFA 160 2 puff inhalation BID 09/21/23 12/17/23 mcg-4.5 mcg/actuation aerosol inhaler Previous Rx's Medication Instructions Recorded blood sugar diagnostic (CallystroTouch #50 ea 06/02/21 Verio test strips) blood-glucose meter (OneTouch #1 ea 06/02/21 Verio Meter) lancets 33 gauge (OneTouch Delica #100 ea 06/02/21 Lancets) ipratropium 0.5 mg-albuterol 3 mg 3 ml inhalation Q4H PRN shortness 12/13/22 (2.5 mg base)/3 mL nebulization of breath #90 mL soln apixaban 5 mg tablet (Eliquis) 5 mg PO BID #60 tabs 09/10/23 diltiazem HCl 180 mg 180 mg PO QAM #30 caps 09/10/23 capsule,extended release 24 hr glipizide 5 mg tablet 5 mg PO DAILY #30 tabs 09/10/23 metoprolol succinate 50 mg 50 mg PO BID #60 tabs 09/10/23 tablet,extended release 24 hr oxycodone 5 mg tablet 5 mg PO TID PRN Pain #30 tabs 09/10/23 cyanocobalamin (vitamin B-12) 500 1,000 mcg (2 x 500 mcg) PO QAM #30 11/24/23 mcg tablet tabs furosemide 40 mg tablet 40 mg PO QAM #30 tabs 11/24/23 pantoprazole 40 mg tablet,delayed 40 mg PO BID #60 tabs 11/24/23 release sodium chloride 7 % for 4 ml NEB BIDR #240 mL 11/24/23 nebulization tiotropium bromide 1.25 2 puff inhalation DAILY #4 grams 11/24/23 mcg/actuation mist for inhalation (Spiriva Respimat) doxycycline hyclate 100 mg capsule 100 mg PO BID #3 caps 12/21/23 guaifenesin 600 mg tablet, 1,200 mg (2 x 600 mg) PO Q12 #30 12/21/23 extended release 12 hr (Mucinex) tabs prednisone 20 mg tablet 40 mg (2 x 20 mg) PO DAILY #4 tabs 12/21/23 Results & Data (ED) Vital Signs Vital Signs - 24 hr 02/09/24 21:19 02/09/24 21:19 02/09/24 21:19 Temperature 36.6 C Temperature Source Oral Pulse Rate 64 Pulse Rate [Apical] Respiratory Rate 18 Respiratory Effort / Characteristics Non-Labored Non-Labored Respiratory Depth Normal Normal Respiratory Pattern Regular Blood Pressure 122/55 L Blood Pressure [Left Arm] Blood Pressure Mean 77 Blood Pressure Mean [Left Arm] Pulse Oximetry 99 79 L Oxygen Delivery Method Oxymask Nasal Cannula Nasal Cannula Oxygen Flow Rate 10 4 0 Fraction of Inspired Oxygen Sepsis Recent Fever Within 48 Hours No Sepsis New/Unexplained Change in Mental Status N/A Sepsis Action Taken by Nursing No Action Required Oxygen Flow Rate - Titration 4 Pulse Oximetry Post Tiitration 98 02/09/24 21:34 02/09/24 21:34 02/09/24 21:34 Temperature Temperature Source Pulse Rate 64 67 Pulse Rate [Apical] 62 Respiratory Rate 18 18 Respiratory Effort / Characteristics Non-Labored Respiratory Depth Normal Respiratory Pattern Regular Blood Pressure Blood Pressure [Left Arm] 122/55 L Blood Pressure Mean Blood Pressure Mean [Left Arm] 77 Pulse Oximetry 97 97 Oxygen Delivery Method Nasal Cannula Nasal Cannula Oxygen Flow Rate 4 4 Fraction of Inspired Oxygen Sepsis Recent Fever Within 48 Hours Sepsis New/Unexplained Change in Mental Status Sepsis Action Taken by Nursing Oxygen Flow Rate - Titration Pulse Oximetry Post Tiitration 02/09/24 23:00 02/09/24 23:18 Temperature Temperature Source Pulse Rate 57 L Pulse Rate [Apical] Respiratory Rate 21 Respiratory Effort / Characteristics Spontaneous Respiratory Depth Normal Respiratory Pattern Regular Blood Pressure Blood Pressure [Left Arm] 114/56 L Blood Pressure Mean Blood Pressure Mean [Left Arm] 75 Pulse Oximetry 98 100 Oxygen Delivery Method CPAP Oxygen Flow Rate Fraction of Inspired Oxygen 40 Sepsis Recent Fever Within 48 Hours Sepsis New/Unexplained Change in Mental Status Sepsis Action Taken by Nursing Oxygen Flow Rate - Titration Pulse Oximetry Post Tiitration Laboratory Data 02/09/24 21:26 02/09/24 21:26 Lab Results 02/09/24 02/09/24 02/09/24 Range/Units 21:26 21:27 21:44 WBC 6.43 (4.8-10.8) K/ul RBC 3.60 L (4.20-5.40) M/uL Hgb 9.5 L (12.0-16.0) g/dl Hct 32.6 L (37.0-47.0) % MCV 90.6 (80.0-100.0) fL MCH 26.4 (25.0-34.0) pg MCHC 29.1 L (32.0-36.0) g/dL RDW Std Deviation 59.6 H (36.4-46.3) fL RDW Coeff of Dorcas 17.8 H (11.5-14.5) % Plt Count 467 H (130-400) K/uL MPV 9.7 (9.4-12.4) fL Immature Gran % (Auto) 0.3 % Neut % (Auto) 69.1 % Lymph % (Auto) 18.2 % Dane % (Auto) 8.6 % Eos % (Auto) 3.0 % Baso % (Auto) 0.8 % Neut # (Auto) 4.45 (1.40-6.50) K/uL Lymph # (Auto) 1.17 L (1.20-3.40) K/uL Dane # (Auto) 0.55 (0.11-0.59) K/uL Eos # (Auto) 0.19 (0.00-0.50) K/uL Baso # (Auto) 0.05 (0.00-0.20) K/uL Immature Gran # (Auto) 0.02 (0.01-0.20) K/uL PT 12.5 H (9.0-12.0) Seconds INR 1.2 H (0.9-1.1) VBG pH 7.29 L (7.36-7.41) VBG pCO2 72 H (38-50) mmHg VBG pO2 34 mmHg VBG HCO3 35 mmol/L VBG O2 Saturation < 60.0 % VBG Base Excess 5.5 mEq/L Sodium 141 (136-145) mmol/L Potassium 4.5 (3.5-5.1) mmol/L Chloride 105 (98-107) mmol/L Carbon Dioxide 33 H (21-32) mmol/L Anion Gap 3 (3-11) BUN 21 (6-23) mg/dl Creatinine 1.15 (0.6-1.2) mg/dl Est Cr Clr Drug Dosing 42.5 ml/min Est GFR ( Amer) 55.0 ml/min Est GFR (Non-Af Amer) 47.5 ml/min BUN/Creatinine Ratio 18.3 (10-20) Glucose 161 H (70-99(Fasting)) mg/dl Lactate 1.3 (0.4-2.0) mmol/L Calcium 8.2 L (8.6-10.3) mg/dl Magnesium 1.8 (1.7-2.4) mg/dl Total Bilirubin 0.2 (0.2-1.0) mg/dl AST 17 (13-39) U/L ALT 19 (7-52) U/L Alkaline Phosphatase 79 (34-104) U/L Troponin I High Sens 7.0 (0-14) pg/ml B-Natriuretic Peptide 111 H (0-100) pg/ml Total Protein 5.6 L (6.0-8.3) gm/dl Albumin 3.0 L (3.4-5.0) gm/dl Globulin 2.6 (2.5-4.0) gm/dl Albumin/Globulin Ratio 1.2 (0.9-2) Urine Color Yellow Urine Appearance Cloudy A (Clear) Urine pH 6.0 (4.5-7.5) Ur Specific [place] 1.017 (1.000-1.030) Urine Protein 2+ H (Negative) Urine Glucose (UA) Negative (Negative) Urine Ketones Trace H (Negative) Urine Blood Negative (Negative) Urine Nitrite Negative (Negative) Urine Bilirubin Negative (Negative) Urine Urobilinogen Negative (Negative) Ur Leukocyte Esterase 1+ H (Negative) Urine WBC (Auto) 1-5 (0-5) /hpf Urine RBC (Auto) 0-4 (0-4) /hpf U Hyaline Cast (Auto) 0 (0-5) /lpf U Epithel Cells (Auto) 20-30 H (0-5) /lpf Urine Bacteria (Auto) 2+ H (Negative) Adenovirus (PCR) Not Detected (NotDetected) B. pertussis DNA (PCR) Not Detected (NotDetected) B.parapertussis DNA PCR Not Detected (NotDetected) C. pneumoniae DNA (PCR) Not Detected (NotDetected) Coronavirus OC43 (PCR) Not Detected (NotDetected) Coronavirus HKU1 (PCR) Not Detected (NotDetected) Coronavirus 229E (PCR) Not Detected (NotDetected) SARS-CoV-2 (PCR) Not Detected (NotDetected) Coronavirus NL63 (PCR) Not Detected (NotDetected) Human Metapneumovir PCR Not Detected (NotDetected) Influenza Type A (PCR) Not Detected (NotDetected) Influenza Type B (PCR) Not Detected (NotDetected) M. pneumoniae (PCR) Not Detected (NotDetected) Parainfluenza 1 (PCR) Not Detected (NotDetected) Parainfluenza 2 (PCR) Not Detected (NotDetected) Parainfluenza 3 (PCR) Not Detected (NotDetected) Parainfluenza 4 (PCR) Not Detected (NotDetected) RSV (PCR) Not Detected (NotDetected) Entero/Rhino (PCR) Not Detected (NotDetected) Administered Medications Discontinued Medications Ceftriaxone Sodium (Rocephin) 2,000 mg in 50 mls @ 100 mls/hr IV NOW STA Stop: 02/09/24 23:29 Last Infusion: 02/09/24 23:52 Dose: Infused Documented By: Admin: 02/09/24 23:09 Dose: 100 mls/hr Documented By: ANNA Ioversol (Optiray 320 125ml) 119 ml IV ONCE ONE Stop: 02/09/24 22:29 Last Admin: 02/09/24 22:28 Dose: 119 ml Documented By: SAPPHIRE Imaging Data Radiologist's Impression: Abdomen/Pelvis CTA 02/09/24 21:44 Exam(s): CTA ABDOMEN + PELVIS With Contrast IV Amt: 119 ml opti 320 EXAM: CT Angiography Abdomen and Pelvis With Intravenous Contrast CLINICAL HISTORY: Reason for exam: abdominal pain; AMS. TECHNIQUE: Axial computed tomographic angiography images of the abdomen and pelvis with intravenous contrast. CTDI is 54 mGy and DLP is 2369.18 mGy-cm. Automated exposure control was utilized for the study. A dose lowering technique was utilized adhering to the principles of ALARA. MIP reconstructed images were created and reviewed. CONTRAST: Patient received 119 ml opti 320 of IV contrast COMPARISON: No relevant prior studies available. FINDINGS: VASCULATURE: Aorta: 4.1 x 4.3 cm infrarenal abdominal aortic aneurysm. Diffuse atherosclerotic change of the thoracic aorta. No dissection. Celiac trunk and mesenteric arteries: No acute findings. No occlusion or significant stenosis. Renal arteries: No acute findings. No occlusion or significant stenosis. Iliac arteries: No acute findings. No occlusion or significant stenosis. Lung bases: Right middle lobe infiltrate. Pleural space: Right-sided pleural effusion. Heart: Coronary artery calcifications. ABDOMEN: Liver: Unremarkable. No mass. Gallbladder and bile ducts: Postoperative changes prior cholecystectomy. No ductal dilation. Pancreas: Unremarkable. No ductal dilation. No mass. Spleen: Unremarkable. No splenomegaly. Adrenals: 1.2 cm left adrenal left nodule. Kidneys and ureters: Unremarkable. No hydronephrosis. No solid mass. Stomach and bowel: Diverticulosis without evidence of diverticulitis. Mild to moderate amount of stool within the colon. No obstruction. PELVIS: Appendix: No findings to suggest acute appendicitis. Bladder: Unremarkable. No mass. Reproductive: Unremarkable as visualized. ABDOMEN and PELVIS: Intraperitoneal space: Unremarkable. No significant fluid collection. No free air. Bones/joints: No acute fracture. No dislocation. Soft tissues: Unremarkable. Lymph nodes: Unremarkable. No enlarged lymph nodes. IMPRESSION: 4.3 cm infrarenal abdominal aortic aneurysm. Fatty infiltration of liver Electronically signed by: Elliot Bonilla MD 02/09/24 23:20 PM Chest CTA 02/09/24 21:44 Exam(s): CTA CHEST W/WO Contrast IV Amt: 119 ml opti 320 EXAM: CT Angiography Chest Without and With Intravenous Contrast CLINICAL HISTORY: Reason for exam: chest pain; hypoxia. TECHNIQUE: Axial computed tomographic angiography images of the chest without and with intravenous contrast. CTDI is 54 mGy and DLP is 2369.18 mGy-cm. Automated exposure control was utilized for the study. A dose lowering technique was utilized adhering to the principles of ALARA. MIP reconstructed images were created and reviewed. CONTRAST: Patient received 119 ml opti 320 of IV contrast COMPARISON: No relevant prior studies available. FINDINGS: Pulmonary arteries: Unremarkable. No pulmonary embolus. Aorta: See below. Lungs: Diffuse changes COPD. Multiple punctate calcifications within the spleen consistent with prior granulomatous disease. Right middle lobe infiltrate likely infectious or inflammatory etiology.. Pleural space: Right pleural effusion aortic valvular calcifications. No pneumothorax. Heart: Unremarkable. No cardiomegaly. No significant pericardial effusion. No evidence of RV dysfunction. Mediastinum: Calcified mediastinal lymph nodes consider prior granulomatous disease. Bones/joints: No acute fracture. No dislocation. Soft tissues: Unremarkable. Lymph nodes: See above. IMPRESSION: Moderate sized right pleural effusion Right middle lobe infiltrate likely infectious or inflammatory etiology Electronically signed by: Elliot Bonilla MD 02/09/24 23:33 PM Discharge Plan Visit Data Chief Complaint: Shortness of Breath/Dyspnea Stated Complaint: SHORTNESS OF BREATH, NOT FEELING WELL ED Provider: Shanon Stoddard Discharge Problem: Acute hypoxemic respiratory failure, Abdominal pain, Shortness of breath, Pleural effusion, Acute confusion, Acute UTI (urinary tract infection) Forms Stand Alone Forms: My [facility] Prescriptions Prescriptions: No Action aspirin [Uri Low Dose Aspirin] 81 mg Tablet,Delayed Release (Dr/Ec) 81 mg PO QAM Hold Instructions: Resume on 11/28/23. hold until seen by primary care albuterol sulfate [Ventolin HFA] 90 mcg/actuation HFA aerosol inhaler 2 puff INHALATION Q6 PRN (Reason: Shortness Of Breath Or Wheezing) metformin 1,000 mg tablet 1,000 mg PO BID (DME) blood-glucose meter [OneTouch Verio Meter] [facility] See Rx Instructions .ROUTE .MEDSUPPLY Qty: 1 0RF Rx Instructions: to test blood sugar 1-2 times/day (DME) OneTouch Verio test strips Strip See Rx Instructions .ROUTE .MEDSUPPLY Qty: 50 3RF Rx Instructions: test blood sugar 1-2 times per day (DME) lancets [OneTouch Delica Lancets] 33 gauge misc See Rx Instructions .ROUTE .MEDSUPPLY Qty: 100 3RF Rx Instructions: test sugar 1-2 times per day losartan 50 mg tablet 50 mg PO QAM folic acid 1 mg tablet 1 mg PO QAM rosuvastatin 20 mg tablet 20 mg PO DAILY bupropion HCl 150 mg tablet extended release 24 hr 150 mg PO DAILY budesonide-formoterol 160-4.5 mcg/actuation HFA aerosol inhaler 2 puff INHALATION BID furosemide 40 mg Tablet 40 mg PO QAM Qty: 30 0RF sodium chloride 7 % Solution For Nebulization 4 ml NEB BIDR Qty: 240 0RF cyanocobalamin (vitamin B-12) 500 mcg Tablet 1,000 mcg PO QAM Qty: 30 0RF Spiriva Respimat 1.25 mcg/actuation mist 2 puff inhalation DAILY Qty: 4 0RF pantoprazole 40 mg Tablet,Delayed Release (Dr/Ec) 40 mg PO BID Qty: 60 0RF ipratropium-albuterol 0.5 mg-3 mg(2.5 mg base)/3 mL solution for nebulization 3 ml inhalation Q4H PRN (Reason: shortness of breath) Qty: 90 0RF Rx Instructions: until breathing returns to target peak flow/parameters Eliquis 5 mg Tablet 5 mg PO BID Qty: 60 5RF Hold Instructions: Resume on 11/28/23. hold until discussed with primary care diltiazem HCl 180 mg Capsule,Extended Release 24hr 180 mg PO QAM Qty: 30 5RF glipizide 5 mg tablet 5 mg PO DAILY Qty: 30 0RF Rx Instructions: please take while on prednisone metoprolol succinate 50 mg tablet extended release 24 hr 50 mg PO BID Qty: 60 5RF oxycodone 5 mg tablet 5 mg PO TID PRN (Reason: Pain) Qty: 30 0RF guaifenesin [Mucinex] 600 mg Tablet Extended Release 12hr 1,200 mg PO Q12 Qty: 30 0RF doxycycline hyclate 100 mg Capsule 100 mg PO BID Qty: 3 0RF prednisone 20 mg Tablet 40 mg PO DAILY Qty: 4 0RF Referrals Referrals: Rosi Borges CRNP [Primary Care Provider] -
[2024-02-09 21:38] LABS: Base Excess VBG 5.5 mEq/L; HCO3 VBG 35 mmol/L; Oxygen Saturation VBG < 60.0 %; PCO2 VBG 72 mmHg (38-50); PO2 VBG 34 mmHg; pH VBG 7.29 (7.36-7.41)
[2024-02-09 21:58] LABS: Appearance Urine Cloudy (Clear); Bacteria Urine Automated 2+ (Negative); Bilirubin Urine Negative (Negative); Blood Urine Negative (Negative); Cast Urine Automated 0 /lpf (0-5); Color Urine Yellow; Epithelial Cell Urine Auto 20-30 /lpf (0-5); Glucose Urine UA Negative (Negative); Ketones Urine Trace (Negative); Leukocyte Esterase Urine 1+ (Negative); Nitrite Urine Negative (Negative); Protein Urine 2+ (Negative); RBC Urine Automated 0-4 /hpf (0-4); Specific Gravity Urine 1.017 (1.000-1.030); Urobilinogen Urine Negative (Negative)
[2024-02-09 22:02] LABS: Albumin Globulin Ratio 1.2 (0.9-2); BUN Creatinine Ratio 18.3 (10-20); Bilirubin,Total 0.2 mg/dl (0.2-1.0); Calcium 8.2 mg/dl (8.6-10.3); Creatinine Clr Calc Pharmacy 42.5 ml/min; Est GFR (Non-African American) 47.5 ml/min; Globulin 2.6 gm/dl (2.5-4.0); Magnesium 1.8 mg/dl (1.7-2.4); Potassium 4.5 mmol/L (3.5-5.1); Total Protein 5.6 gm/dl (6.0-8.3)
[2024-02-09 22:04] LABS: Basophils # (auto) 0.05 K/uL (0.00-0.20); Basophils % (auto) 0.8 %; Eosinophils # (auto) 0.19 K/uL (0.00-0.50); Hematocrit (blood only) 32.6 % (37.0-47.0); Hemoglobin 9.5 g/dl (12.0-16.0); Immature Granulocytes # (auto) 0.02 K/uL (0.01-0.20); Immature Granulocytes % (auto) 0.3 %; Lymphocytes # (auto) 1.17 K/uL (1.20-3.40); Lymphocytes % (auto) 18.2 %; Mean Corpuscular Hemoglobin 26.4 pg (25.0-34.0); Mean Corpuscular Hgb Conc 29.1 g/dL (32.0-36.0); Mean Corpuscular Volume 90.6 fL (80.0-100.0); Mean Platelet Volume 9.7 fL (9.4-12.4); Monocytes # (auto) 0.55 K/uL (0.11-0.59); Monocytes % (auto) 8.6 %; Neutrophils # (auto) 4.45 K/uL (1.40-6.50); Neutrophils % (auto) 69.1 %; Platelet Count 467 K/uL (130-400); RDW Coefficient of Variation 17.8 % (11.5-14.5); RDW Standard Deviation 59.6 fL (36.4-46.3); White Blood Count 6.43 K/ul (4.8-10.8)
[2024-02-09 22:18] LABS: INR 1.2 (0.9-1.1); Prothrombin Time 12.5 Seconds (9.0-12.0)
[2024-02-09 22:28] LABS: Adenovirus PCR Not Detected (NotDetected); Bordetella parapertussis PCR Not Detected (NotDetected); Bordetella pertussis PCR Not Detected (NotDetected); Chlamydia pneumoniae PCR Not Detected (NotDetected); Coronavirus 229E PCR Not Detected (NotDetected); Coronavirus CoV-2 (COVID19)PCR Not Detected (NotDetected); Coronavirus HKU1 PCR Not Detected (NotDetected); Coronavirus NL63 PCR Not Detected (NotDetected); Coronavirus OC43PCR Not Detected (NotDetected); Human Metapneumovirus PCR Not Detected (NotDetected); Influenza A PCR Not Detected (NotDetected); Influenza B PCR Not Detected (NotDetected); Mycoplasma pneumoniae PCR Not Detected (NotDetected); Parainfluenza Virus 1 PCR Not Detected (NotDetected); Parainfluenza Virus 2 PCR Not Detected (NotDetected); Parainfluenza Virus 3 PCR Not Detected (NotDetected); Parainfluenza Virus 4 PCR Not Detected (NotDetected); Respiratory Syncytial VirusPCR Not Detected (NotDetected); Rhinovirus/Enterovirus PCR Not Detected (NotDetected)
[2024-02-09] MEDS: OPTIRAY 320 125ml IV ONE (22:28)
[2024-02-09] MEDS: cefTRIAXone SODIUM 2,000 MG/50 ML BAG IV STA (23:09)
--- NOTE | 2024-02-09 23:21 | CT Scan Report ---
Exam(s): CTA ABDOMEN + PELVIS With Contrast IV Amt: 119 ml opti 320 EXAM: CT Angiography Abdomen and Pelvis With Intravenous Contrast CLINICAL HISTORY: Reason for exam: abdominal pain; AMS. TECHNIQUE: Axial computed tomographic angiography images of the abdomen and pelvis with intravenous contrast. CTDI is 54 mGy and DLP is 2369.18 mGy-cm. Automated exposure control was utilized for the study. A dose lowering technique was utilized adhering to the principles of ALARA. MIP reconstructed images were created and reviewed. CONTRAST: Patient received 119 ml opti 320 of IV contrast COMPARISON: No relevant prior studies available. FINDINGS: VASCULATURE: Aorta: 4.1 x 4.3 cm infrarenal abdominal aortic aneurysm. Diffuse atherosclerotic change of the thoracic aorta. No dissection. Celiac trunk and mesenteric arteries: No acute findings. No occlusion or significant stenosis. Renal arteries: No acute findings. No occlusion or significant stenosis. Iliac arteries: No acute findings. No occlusion or significant stenosis. Lung bases: Right middle lobe infiltrate. Pleural space: Right-sided pleural effusion. Heart: Coronary artery calcifications. ABDOMEN: Liver: Unremarkable. No mass. Gallbladder and bile ducts: Postoperative changes prior cholecystectomy. No ductal dilation. Pancreas: Unremarkable. No ductal dilation. No mass. Spleen: Unremarkable. No splenomegaly. Adrenals: 1.2 cm left adrenal left nodule. Kidneys and ureters: Unremarkable. No hydronephrosis. No solid mass. Stomach and bowel: Diverticulosis without evidence of diverticulitis. Mild to moderate amount of stool within the colon. No obstruction. PELVIS: Appendix: No findings to suggest acute appendicitis. Bladder: Unremarkable. No mass. Reproductive: Unremarkable as visualized. ABDOMEN and PELVIS: Intraperitoneal space: Unremarkable. No significant fluid collection. No free air. Bones/joints: No acute fracture. No dislocation. Soft tissues: Unremarkable. Lymph nodes: Unremarkable. No enlarged lymph nodes. IMPRESSION: 4.3 cm infrarenal abdominal aortic aneurysm. Fatty infiltration of liver Electronically signed by: Elliot Bonilla MD 02/09/24 23:20 PM
--- NOTE | 2024-02-09 23:34 | CT Scan Report ---
Exam(s): CTA CHEST W/WO Contrast IV Amt: 119 ml opti 320 EXAM: CT Angiography Chest Without and With Intravenous Contrast CLINICAL HISTORY: Reason for exam: chest pain; hypoxia. TECHNIQUE: Axial computed tomographic angiography images of the chest without and with intravenous contrast. CTDI is 54 mGy and DLP is 2369.18 mGy-cm. Automated exposure control was utilized for the study. A dose lowering technique was utilized adhering to the principles of ALARA. MIP reconstructed images were created and reviewed. CONTRAST: Patient received 119 ml opti 320 of IV contrast COMPARISON: No relevant prior studies available. FINDINGS: Pulmonary arteries: Unremarkable. No pulmonary embolus. Aorta: See below. Lungs: Diffuse changes COPD. Multiple punctate calcifications within the spleen consistent with prior granulomatous disease. Right middle lobe infiltrate likely infectious or inflammatory etiology.. Pleural space: Right pleural effusion aortic valvular calcifications. No pneumothorax. Heart: Unremarkable. No cardiomegaly. No significant pericardial effusion. No evidence of RV dysfunction. Mediastinum: Calcified mediastinal lymph nodes consider prior granulomatous disease. Bones/joints: No acute fracture. No dislocation. Soft tissues: Unremarkable. Lymph nodes: See above. IMPRESSION: Moderate sized right pleural effusion Right middle lobe infiltrate likely infectious or inflammatory etiology Electronically signed by: Elliot Bonilla MD 02/09/24 23:33 PM
--- NOTE | 2024-02-10 00:17 | History & Physical Report ---
Date of Service February 10, 2024 Assessment & Plan (1) Acute UTI (urinary tract infection): (2) Acute confusion: (3) Acute on chronic respiratory failure with hypoxia and hypercapnia: (4) Current smoker: (5) Afib: (6) Pleural effusion: (7) CHF (congestive heart failure): (8) Pneumonia: (9) Metabolic encephalopathy: (10) Lower extremity edema: Plan Acute confusion- Potential etiologies including but not limited to: Pleural effusion, pneumonia, acute on chronic respiratory failure with hypoxia and hypercapnia, COPD exacerbation, urinary tract infection NPO Acute on chronic respiratory failure with hypoxia and hypercapnia/right middle and right lower lobe pneumonia/moderate right pleural effusion- Cefepime 2 g IV every 12 hours Duonebs every 4 hours while awake and every 2 hours when necessary. Methylprednisolone 40 mg IV every 8 hours MRSA swab Continue CPAP/BiPAP as needed CHF exacerbation- Give furosemide 20 mg IV now, then every morning Give albumin 25 g IV now Follow serial CBC with differential, renal function panel and magnesium levels Urinary tract infection- Follow urine culture and sensitivity Empiric cefepime 2 g IV every 12 hours History of E. coli UTI on 01/15/2024, with resistance to fluoroquinolones History of Enterococcus faecalis UTI on 11/21/2023, with sensitivity to vancomycin, daptomycin and ampicillin Add vancomycin IV per pharmacokinetic monitoring AAA- 4.3 cm noted on CTA abdomen pelvis Can be followed serially History of Present Illness Chief Complaint: The patient was brought to the emergency department by EMS after her called 911 when she started throwing up and then was having difficulty breathing. EMS reports that upon their arrival, her pulse ox was 85% on 4 L nasal cannula, which she wears at baseline. Upon arrival in the emergency department, the patient was too confused to be able to provide any significant history, and history is obtained from EMS records. Primary Care Provider: BRET Espinoza The patient is a 74-year-old female with a past medical history including recent admission from 12/17-12/21/2023 for acute on chronic respiratory failure with hypoxia and hypercapnia, COPD with acute exacerbation, pleural effusion, CHF, tobacco use, sepsis, metabolic encephalopathy, A-fib, hypertension, chronic anemia, chronic pain syndrome, and uncontrolled diabetes mellitus. Patient was placed on oxime mask, then 4 L nasal cannula, and then onto CPAP, with pulse ox in the mid to upper 90s. Allergies Allergy/AdvReac Type Severity Reaction Status Date / Time diflunisal AdvReac Intermediate HEART RACES Verified 02/10/24 00:59 Home Medications Medication Instructions Recorded Confirmed Type albuterol sulfate 90 mcg/actuation 2 puff inhalation Q6 PRN Shortness 08/28/20 02/10/24 History aerosol inhaler (Ventolin HFA) Of Breath Or Wheezing aspirin 81 mg tablet,delayed 81 mg PO QAM 08/28/20 02/10/24 History release (Uri Low Dose Aspirin) metformin 1,000 mg tablet 1,000 mg PO BID 08/28/20 02/10/24 History blood sugar diagnostic ([employer] MobilityTouch #50 ea 06/02/21 02/10/24 Rx Verio test strips) folic acid 1 mg tablet 1 mg PO QAM 03/24/22 02/10/24 History losartan 50 mg tablet 50 mg PO QAM 03/24/22 02/10/24 History ipratropium 0.5 mg-albuterol 3 mg 3 ml inhalation Q4H PRN shortness 12/13/22 02/10/24 Rx (2.5 mg base)/3 mL nebulization of breath #90 mL soln rosuvastatin 20 mg tablet 20 mg PO DAILY 08/23/23 02/10/24 History apixaban 5 mg tablet (Eliquis) 5 mg PO BID #60 tabs 09/10/23 02/10/24 Rx diltiazem HCl 180 mg 180 mg PO QAM #30 caps 09/10/23 02/10/24 Rx capsule,extended release 24 hr glipizide 5 mg tablet 5 mg PO DAILY #30 tabs 09/10/23 02/10/24 Rx metoprolol succinate 50 mg 50 mg PO BID #60 tabs 09/10/23 02/10/24 Rx tablet,extended release 24 hr oxycodone 5 mg tablet 5 mg PO TID PRN Pain #30 tabs 09/10/23 02/10/24 Rx budesonide-formoterol HFA 160 2 puff inhalation BID 09/21/23 02/10/24 History mcg-4.5 mcg/actuation aerosol inhaler pantoprazole 40 mg tablet,delayed 40 mg PO BID #60 tabs 01/01/24 03/19/24 Rx release tiotropium bromide 1.25 2 puff inhalation DAILY #4 grams 11/24/23 02/10/24 Rx mcg/actuation mist for inhalation (Spiriva Respimat) Ferosul Tab 125 mg PO BID 02/10/24 02/10/24 History furosemide 20 mg tablet 20 mg PO DAILY PRN Edema 02/10/24 02/10/24 History guaifenesin 600 mg tablet, 1,200 mg PO Q12 PRN Congestion 02/10/24 02/10/24 History extended release 12 hr (Mucinex) sodium chloride 7 % for 4 ml NEB BIDR PRN Shortness Of 02/10/24 02/10/24 History nebulization Breath Or Wheezing Past Med/Surg History Medical History Severe muscle deconditioning COPD exacerbation Acute on chronic respiratory failure with hypoxia Chronic pain syndrome Abdominal pain Respiratory failure Hyperkalemia Diabetes type 2, uncontrolled Acute hypercapnic respiratory failure TATY (acute kidney injury) AMS (altered mental status) Syncope Acute UTI Acute hypotension Chronic kidney disease, stage 3a Acute kidney injury Acute exacerbation of chronic low back pain Candidiasis of mouth and esophagus Tobacco abuse DVT prophylaxis Diabetes mellitus COPD (chronic obstructive pulmonary disease) Hypertension Hyperlipidemia Acute on chronic respiratory failure with hypoxia and hypercapnia History of knee replacement Left peroneal nerve palsy AAA (abdominal aortic aneurysm) Diaphragmatic hernia (10/31/11) Chronic low back pain Surgical History History of bilateral oophorectomies History of appendectomy History of lithotripsy (~2007) H/O Achilles tendon repair (~2007) Hx of cholecystectomy H/O: hysterectomy Family History Other Family history non-contributory Social History Smoking Status: Unknown if ever smoked Tobacco Type: Cigarettes Age Started Using Tobacco: 32; Cigarettes Per Day: 1/2 ppd; Second Hand Exposure: Yes; Do You Dip or Chew Tobacco: No; Hx Alcohol Use: No Hx Substance Use: No Preferred Language: Icelandic Communication Ability: Effective Social Worker Clinical Required: No Beliefs That Will Affect Care: None marital status: Current Living Situation: Spouse Current Living Situation Comment: Lives at home with How many Children do You have: 3 Feels Safe at Home: Yes Assistive Devices: BiPap and Oxygen - Continuous Review of Systems Review of Systems: Review of systems is not possible due to patient's altered mentation and decreased responsiveness. Physical Exam Physical Exam: The patient is nonresponsive, normocephalic and atraumatic, lying in bed and in no acute distress. HEENT--PERRL, EOMI, mucous membranes and oropharynx dry. Neck--supple. No JVD. No bruits. Thyroid normal, trachea midline, no adenopathy. Heart--normal S1 and S2. No murmurs, rubs or gallops. Lungs--decreased breath sounds right base, no respiratory distress, no accessory muscle use. Abdomen--normal bowel sounds and soft. Nontender. Nondistended Extremities-- 1+ bilateral pretibial pitting edema. Dermatologic--normal skin turgor, normal color, no abnormal lymph nodes, no rash. Neurologic--cranial nerves II through XII grossly intact. Rheumatologic--limited exam Psychiatric--nonresponsive Results & Data Results & Data Vital Signs (Past 12 Hours) Vital Signs Temp Pulse Pulse Resp BP BP Pulse Ox 02/09/24 23:18 57 L 21 100 02/09/24 23:00 114/56 L 98 02/09/24 21:34 67 02/09/24 21:34 64 18 97 02/09/24 21:34 62 18 122/55 L 97 02/09/24 21:19 79 L 02/09/24 21:19 36.6 C 64 18 122/55 L 99 02/09/24 21:19 O2 Del Method O2 Flow Rate FiO2 02/09/24 23:18 40 02/09/24 23:00 CPAP 02/09/24 21:34 02/09/24 21:34 Nasal Cannula 4 02/09/24 21:34 Nasal Cannula 4 02/09/24 21:19 Nasal Cannula 0 02/09/24 21:19 Nasal Cannula 4 02/09/24 21:19 Oxymask 10 Laboratory Results Laboratory Results WBC 6.43 K/ul (4.8-10.8) 02/09/24 21: RBC 3.60 M/uL (4.20-5.40) L 02/09/24 21:26 Hgb 9.5 g/dl (12.0-16.0) L 02/09/24 21: Hct 32.6 % (37.0-47.0) L 02/09/24: MCV 90.6 fL (80.0-100.0) 02/09/24 21: MCH 26.4 pg (25.0-34.0) 02/09/24: MCHC 29.1 g/dL (32.0-36.0) L 02/09/24 21: RDW Std Deviation 59.6 fL (36.4-46.3) H 02/09/24: RDW Coeff of Dorcas 17.8 % (11.5-14.5) H 02/09/24: Plt Count 467 K/uL (130-400) H 02/09/24: MPV 9.7 fL (9.4-12.4) 02/09/24: Immature Gran % (Auto) 0.3 % 02/09/24: Neut % (Auto) 69.1 % 02/09/24: Lymph % (Auto) 18.2 % 02/09/24: [place] % (Auto) 8.6 % 02/09/24: Eos % (Auto) 3.0 % 02/09/24: Baso % (Auto) 0.8 % 02/09/24: Neut # (Auto) 4.45 K/uL (1.40-6.50) 02/09/24: Lymph # (Auto) 1.17 K/uL (1.20-3.40) L 02/09/24: [place] # (Auto) 0.55 K/uL (0.11-0.59) 02/09/24: Eos # (Auto) 0.19 K/uL (0.00-0.50) 02/09/24: Baso # (Auto) 0.05 K/uL (0.00-0.20) 02/09/24: Immature Gran # (Auto) 0.02 K/uL (0.01-0.20) 02/09/24: PT 12.5 Seconds (9.0-12.0) H 02/09/24 21: INR 1.2 (0.9-1.1) H 02/09/24 21: VBG pH 7.29 (7.36-7.41) L 02/09/24 21: VBG pCO2 72 mmHg (38-50) H 02/09/24 21: VBG pO2 34 mmHg 02/09/24 21: VBG HCO3 35 mmol/L 02/09/24 21: VBG O2 Saturation < 60.0 % 02/09/24 21: VBG Base Excess 5.5 mEq/L 02/09/24 21: Sodium 141 mmol/L (136-145) 02/09/24 21: Potassium 4.5 mmol/L (3.5-5.1) 02/09/24 21: Chloride 105 mmol/L (98-107) 02/09/24 21: Carbon Dioxide 33 mmol/L (21-32) H 02/09/24 21: Anion Gap 3 (3-11) 02/09/24 21:26 BUN 21 mg/dl (6-23) 02/09/24 21: Creatinine 1.15 mg/dl (0.6-1.2) 02/09/24 21: Est Cr Clr Drug Dosing 42.5 ml/min 02/09/24 21: Est GFR ( Amer) 55.0 ml/min 02/09/24 21: Est GFR (Non-Af Amer) 47.5 ml/min 02/09/24 21: BUN/Creatinine Ratio 18.3 (10-20) 02/09/24 21: Glucose 161 mg/dl (70-99(Fasting)) H 02/09/24 21: Lactate 1.3 mmol/L (0.4-2.0) 02/09/24: Calcium 8.2 mg/dl (8.6-10.3) L 02/09/24 21: Magnesium 1.8 mg/dl (1.7-2.4) 02/09/24 21: Total Bilirubin 0.2 mg/dl (0.2-1.0) 02/09/24 21: AST 17 U/L (13-39) 02/09/24 21: ALT 19 U/L (7-52) 02/09/24 21: Alkaline Phosphatase 79 U/L (34-104) 02/09/24 21: Troponin I High Sens 7.0 pg/ml (0-14) 02/09/24 21: B-Natriuretic Peptide 111 pg/ml (0-100) H 02/09/24 21: Total Protein 5.6 gm/dl (6.0-8.3) L 02/09/24: Albumin 3.0 gm/dl (3.4-5.0) L 02/09/24: Globulin 2.6 gm/dl (2.5-4.0) 02/09/24: Albumin/Globulin Ratio 1.2 (0.9-2) 02/09/24: Urine Color Yellow 02/09/24: Urine Appearance Cloudy (Clear) A 02/09/24: Urine pH 6.0 (4.5-7.5) 02/09/24: Ur Specific [place] 1.017 (1.000-1.030) 02/09/24:44 Urine Protein 2+ (Negative) H 02/09/24 21:44 Urine Glucose (UA) Negative (Negative) 02/09/24: Urine Ketones Trace (Negative) H 02/09/24: Urine Blood Negative (Negative) 02/09/24: Urine Nitrite Negative (Negative) 02/09/24: Urine Bilirubin Negative (Negative) 02/09/24:44 Urine Urobilinogen Negative (Negative) 02/09/24:44 Ur Leukocyte Esterase 1+ (Negative) H 02/09/24 21:44 Urine WBC (Auto) 1-5 /hpf (0-5) 02/09/24 21:44 Urine RBC (Auto) 0-4 /hpf (0-4) 02/09/24 21:44 U Hyaline Cast (Auto) 0 /lpf (0-5) 02/09/24 21:44 U Epithel Cells (Auto) 20-30 /lpf (0-5) H 02/09/24 21:44 Urine Bacteria (Auto) 2+ (Negative) H 02/09/24 21:44 Nasal Screen MRSA (PCR) Negative (Negative) 02/10/24 00:04 Adenovirus (PCR) Not Detected (NotDetected) 02/09/24 21:27 B. pertussis DNA (PCR) Not Detected (NotDetected) 02/09/24 21:27 B.parapertussis DNA PCR Not Detected (NotDetected) 02/09/24 21:27 C. pneumoniae DNA (PCR) Not Detected (NotDetected) 02/09/24 21:27 Coronavirus OC43 (PCR) Not Detected (NotDetected) 02/09/24 21:27 Coronavirus HKU1 (PCR) Not Detected (NotDetected) 02/09/24 21:27 Coronavirus 229E (PCR) Not Detected (NotDetected) 02/09/24 21:27 SARS-CoV-2 (PCR) Not Detected (NotDetected) 02/09/24 21:27 Coronavirus NL63 (PCR) Not Detected (NotDetected) 02/09/24 21:27 Human Metapneumovir PCR Not Detected (NotDetected) 02/09/24 21:27 Influenza Type A (PCR) Not Detected (NotDetected) 02/09/24 21:27 Influenza Type B (PCR) Not Detected (NotDetected) 02/09/24 21:27 M. pneumoniae (PCR) Not Detected (NotDetected) 02/09/24 21:27 Parainfluenza 1 (PCR) Not Detected (NotDetected) 02/09/24 21:27 Parainfluenza 2 (PCR) Not Detected (NotDetected) 02/09/24 21:27 Parainfluenza 3 (PCR) Not Detected (NotDetected) 02/09/24 21:27 Parainfluenza 4 (PCR) Not Detected (NotDetected) 02/09/24 21:27 RSV (PCR) Not Detected (NotDetected) 02/09/24 21:27 Entero/Rhino (PCR) Not Detected (NotDetected) 02/09/24 21:27 Impressions Abdomen/Pelvis CTA 02/09/24 21:44 Exam(s): CTA ABDOMEN + PELVIS With Contrast IV Amt: 119 ml opti 320 EXAM: CT Angiography Abdomen and Pelvis With Intravenous Contrast CLINICAL HISTORY: Reason for exam: abdominal pain; AMS. TECHNIQUE: Axial computed tomographic angiography images of the abdomen and pelvis with intravenous contrast. CTDI is 54 mGy and DLP is 2369.18 mGy-cm. Automated exposure control was utilized for the study. A dose lowering technique was utilized adhering to the principles of ALARA. MIP reconstructed images were created and reviewed. CONTRAST: Patient received 119 ml opti 320 of IV contrast COMPARISON: No relevant prior studies available. FINDINGS: VASCULATURE: Aorta: 4.1 x 4.3 cm infrarenal abdominal aortic aneurysm. Diffuse atherosclerotic change of the thoracic aorta. No dissection. Celiac trunk and mesenteric arteries: No acute findings. No occlusion or significant stenosis. Renal arteries: No acute findings. No occlusion or significant stenosis. Iliac arteries: No acute findings. No occlusion or significant stenosis. Lung bases: Right middle lobe infiltrate. Pleural space: Right-sided pleural effusion. Heart: Coronary artery calcifications. ABDOMEN: Liver: Unremarkable. No mass. Gallbladder and bile ducts: Postoperative changes prior cholecystectomy. No ductal dilation. Pancreas: Unremarkable. No ductal dilation. No mass. Spleen: Unremarkable. No splenomegaly. Adrenals: 1.2 cm left adrenal left nodule. Kidneys and ureters: Unremarkable. No hydronephrosis. No solid mass. Stomach and bowel: Diverticulosis without evidence of diverticulitis. Mild to moderate amount of stool within the colon. No obstruction. PELVIS: Appendix: No findings to suggest acute appendicitis. Bladder: Unremarkable. No mass. Reproductive: Unremarkable as visualized. ABDOMEN and PELVIS: Intraperitoneal space: Unremarkable. No significant fluid collection. No free air. Bones/joints: No acute fracture. No dislocation. Soft tissues: Unremarkable. Lymph nodes: Unremarkable. No enlarged lymph nodes. IMPRESSION: 4.3 cm infrarenal abdominal aortic aneurysm. Fatty infiltration of liver Electronically signed by: Elliot Bonilla MD 02/09/24 23:20 PM Chest CTA 02/09/24 21:44 Exam(s): CTA CHEST W/WO Contrast IV Amt: 119 ml opti 320 EXAM: CT Angiography Chest Without and With Intravenous Contrast CLINICAL HISTORY: Reason for exam: chest pain; hypoxia. TECHNIQUE: Axial computed tomographic angiography images of the chest without and with intravenous contrast. CTDI is 54 mGy and DLP is 2369.18 mGy-cm. Automated exposure control was utilized for the study. A dose lowering technique was utilized adhering to the principles of ALARA. MIP reconstructed images were created and reviewed. CONTRAST: Patient received 119 ml opti 320 of IV contrast COMPARISON: No relevant prior studies available. FINDINGS: Pulmonary arteries: Unremarkable. No pulmonary embolus. Aorta: See below. Lungs: Diffuse changes COPD. Multiple punctate calcifications within the spleen consistent with prior granulomatous disease. Right middle lobe infiltrate likely infectious or inflammatory etiology.. Pleural space: Right pleural effusion aortic valvular calcifications. No pneumothorax. Heart: Unremarkable. No cardiomegaly. No significant pericardial effusion. No evidence of RV dysfunction. Mediastinum: Calcified mediastinal lymph nodes consider prior granulomatous disease. Bones/joints: No acute fracture. No dislocation. Soft tissues: Unremarkable. Lymph nodes: See above. IMPRESSION: Moderate sized right pleural effusion Right middle lobe infiltrate likely infectious or inflammatory etiology Electronically signed by: Elliot Bonilla MD 02/09/24 23:33 PM Code Status & VTE Plan Code Status full code VTE Prophylaxis Plan VTE Prophylaxis will be ordered: Yes PG Care Time/CCT Total # of Minutes Spent Total Time Spent with Patient: Total time spent is greater than 50% in coordination of care (as documented) at patient's floor/unit and/or counseling patient: Coding Level of Care Code 35960 INT INP/OBS CARE 375MIN Diagnoses Acute UTI (urinary tract infection) N39.0 Acute confusion R41.0 Acute on chronic respiratory failure with hypoxia and hypercapnia J96.21; J96.22 Current smoker F17.200 Afib I48.91 Pleural effusion J90 CHF (congestive heart failure) I50.9 Heart failure chronicity: acute on chronic Heart failure type: unspecified Pneumonia J18.9 Laterality: right Lung location: lower lobe of lung Pneumonia type: due to unspecified organism Metabolic encephalopathy G93.41 Lower extremity edema R60.0 (7) CHF (congestive heart failure) Heart failure chronicity: acute on chronic Heart failure type: unspecified Qualified Code(s): I50.9 - Heart failure, unspecified (8) Pneumonia Laterality: right Lung location: lower lobe of lung Pneumonia type: due to unspecified organism Qualified Code(s): J18.9 - Pneumonia, unspecified organism
[2024-02-10] MEDS: FUROSEMIDE INJ 20 MG/2 ML VIAL IV ONE (00:32)
[2024-02-10] MEDS: ALBUMIN 25% 25 GM/100 ML VIAL IV ONE (00:32)
[2024-02-10] MEDS: CEFEPIME 2,000 MG in SYRINGE 0 ML IV SCH (00:46)
[2024-02-10] MEDS ORDERED: ONDANSETRON INJ 2 MG/ML 2 ML VIAL IV PRN (01:39)
[2024-02-10] MEDS ORDERED: GLUCOSE 10 TAB/TUBE PO PRN (01:39)
[2024-02-10] MEDS ORDERED: ACETAMINOPHEN 1000 MG/100 ML IV IV PRN (01:39)
[2024-02-10] MEDS ORDERED: CARBOHYDRATES FOR HYPOGLYCEMIA PO PRN (01:39)
[2024-02-10] MEDS ORDERED: GLUCAGON FOR INJ 1 MG VIAL SQ PRN (01:39)
[2024-02-10] MEDS ORDERED: GLUCOSE 40% GEL 15 GM TUBE PO PRN (01:39)
[2024-02-10] MEDS ORDERED: DEXTROSE 50% 50 ML SYRINGE IV PRN (01:39)
[2024-02-10] MEDS: ALBUT/IPRATROP 3MG/0.5MG NEB 3 ML VIAL NEB SCH (02:19)
[2024-02-10] MEDS ORDERED: VANCOMYCIN CONSULT ACTIVE PRN (04:23)
[2024-02-10] MEDS: VANCOMYCIN HCL 1,500 MG in SODIUM CHLORIDE 0.9% 500 ML IV ONE (05:11)
[2024-02-10 07:00] LABS: Estimated Average Glucose 209 mg/dl; Hemoglobin A1C 8.9 % (4.5-5.6)
--- NOTE | 2024-02-10 07:02 | XRay Report ---
XR chest 1V portable CLINICAL HISTORY: Dyspnea TECHNIQUE: Single frontal radiograph of the chest was obtained. Comparison: Comparison is made to chest radiograph 01/15/2024 FINDINGS: No lines and tubes are seen. Cardiomegaly is noted. The aortic arch is calcified. Right lower lung ai rspace opacity is seen. No evidence of pleural effusion or pneumothorax. IMPRESSION: Right lower lung airspace opacity. This may represent atelectasis, pneumonia, and/or aspiration. ACT 112: Negative or not required by law. Electronically signed by: Tushar Souza M.D. 02/10/2024 7:01 AM
[2024-02-10] MEDS: methylPREDNISolone 40 MG in SYRINGE 0 ML IV SCH (08:40)
[2024-02-10] MEDS ORDERED: buPROPion XL 150 MG TABCR PO SCH (09:00)
[2024-02-10] MEDS: ACETAMINOPHEN 1,000 MG/100 ML VIAL IV PRN (09:06)
[2024-02-10] MEDS: ASPIRIN 81 MG ECTAB PO SCH (09:09)
[2024-02-10] MEDS: APIXABAN 5 MG TABLET PO SCH (09:09)
[2024-02-10] MEDS: FOLIC ACID 1 MG TAB PO SCH (09:10)
[2024-02-10] MEDS: dilTIAZem HCL 180 MG CAPCR PO SCH (09:10)
[2024-02-10] MEDS: ROSUVASTATIN CALCIUM 20 MG TAB PO SCH (09:11)
[2024-02-10] MEDS: FUROSEMIDE INJ 20 MG/2 ML VIAL IV SCH ×2 (09:11→18:40)
[2024-02-10] MEDS: PANTOprazole 40 MG TAB PO SCH (09:11)
[2024-02-10] MEDS: METOPROLOL SUCC 50MG EXT REL TAB PO SCH (09:11)
--- NOTE | 2024-02-10 09:11 | Hospitalist Progress Note ---
Date of Service February 10, 2024 Assessment & Plan (1) Acute confusion: Plan: Acute confusion- Potential etiologies including but not limited to: Pleural effusion, pneumonia, acute on chronic respiratory failure with hypoxia and hypercapnia, COPD exacerbation, urinary tract infection See below Tx acute on chronic respiratory failulre/pneumonia as well as possible CHF exacerbation and UTI as below and patient presently alert/oriented and remembering me from prior admission AM 02/09 --Of note, had recently been set up for Trelegy, BiPAP utilized on admission and on oxymask at present time --Home oxycodone added back given back to baseline mentation and ordered 5mg tid prn No issues w/ lunch, ate about 80% per nursing. -Easy to chew diet ordered as prior care alert. F/u labs/exam in AM (2) Acute on chronic respiratory failure with hypoxia and hypercapnia: Plan: Acute on chronic respiratory failure with hypoxia and hypercapnia/right middle and right lower lobe pneumonia/moderate right pleural effusion- CTA of chest: Moderate sized right pleural effusion. Right middle lobe infiltrate likely infectious or inflammatory etiology Cefepime 2gm IV BID, Vancomycin MRSA swab negative, urine cx w/ gram negative bacilli and will DISCONTINUE vanco for now but will need fu on urine once finalized Continue BiPAP, Trelegy arranged last admission (patient reports using) Continues with wheezing, continue methylprednisolone q8h IV Lasix 20mg IV on admission, continued 20mg IV daily and increased to BID for now/monitor response Added hypertonic saline nebs, mucinex BID, Perforomist nebs last admission I had her, recs to continue hypertonic saline nebs at dc, does not appear done. will plan to send rx at [facility] Sputum if able to obtain Pulm consulted, appreciate recs/assistance Supplemental O2 to maintain sats CXR for f/u in AM (3) Acute UTI (urinary tract infection): Plan: Urinary tract infection- +UA on admission, pederson placed given lasix Hx E. coli UTI on 01/15/2024, with resistance to fluoroquinolones.History of Enterococcus faecalis UTI on 11/21/2023, with sensitivity to vancomycin, daptomycin and ampicillin Urine cx GNB on preliminary, discontinued vancomycin for now and f/u urine cx (4) CHF (congestive heart failure): Plan: CHF exacerbation- patient had her lasix increased to 40mg daily during discharge in early November, believes she had only been taking 20mg PO daily per her a ccount s/p 20mg IV lasix in ER on admission (with 25g IV albumin) Only net negative 330cc, increased daily 20mg IV daily to BID and consider increasing to 40mg IV BID tomorrow pending response Monitor weights, I&O AHA diet, 1800cc/day fluid restriction Monitor renal function/mag in AM (5) Afib: Plan: On Eliquis BID, prior + fecal occult testing and was held at discharge Hgb around prior, remains on eliquis. Will repeat fecal occult/consider holding if remaining positive. Remains on PPI, increase to BID in meantime Repeat iron panel to be checked continue metoprolol BID telemetry monitoring keep K/mag replete Monitor CBC (6) Pleural effusion: Plan: as above, diuresis as outlined (7) Pneumonia: Plan: abx as above, MRSA nares negative, vanco dc'd for now (monitor urine cx, now w/ gram negative rods) (8) Metabolic encephalopathy: Plan: improving w/ tx as above (9) Lower extremity edema: Plan: as above, suspect aspect of volume overload. diuretics as outlined Other chronic problems: AAA- 4.3 cm noted on CTA abdomen pelvis Can be followed serially (10) B12 deficiency: Plan: prior low at 107 in October with myself. Provided IM x 3 doses will check w/ AM labs, consider adding PO supplementation daily (11) Anemia: Plan: hgb appearing around baseline. as above, eliquis prior held. consideration for doppler LE if needed if had been off such. on currently check iron panel as above, B12 added to AM labs for tomorrow given prior low/IM supplementation fecal occult for completeness, continue PPI BID in meantime. is on folic acid/prior low, most recently was normal (consider stopping) CBC in AM (12) Current smoker: Plan: ? will need f/u discussions if still smoking Plan continued inpatient stay, nebs/diuretics and abx as outlined. pulm consulted will also consult PT/OT Admission and Anticipated Discharge Date Admission Date: February 10, 2024 Supervising Physician Co-Signing Physician Notes The patient was not seen by me. The chart was reviewed. Case discussed with [place] Haley. Agree with assessment and plan Subjective Evaluated this afternoon, on oxymask at present time from BiPAP. Reports she had been using her new machine, trelegy, at home. Reports remembering me from prior admission in November. +Cough, unable to expectorate sputum. +wet/moist cough. Discussed home lasix use, she reports she thinks she had been taking 20mg PO radha ly. Had been given 20mg IV lasix this morning and will monitor/consider additional dose for this evening/making BID scheduled for meantime while on steroids. Adding performist and hypertonic saline to see if able to help with secretions/mucus plugging, added mucinex BID as well. No fever/chills, chest pain. No abdominal pain/nausea, ate about 80% of her lunch. CHronic back pain, on oxycodone, added 5mg prn and getting dose at current time but to alert of any issues/worsened pain. Questions/concerns addressed at this time. Physical Exam Physical Exam: General: 74yo female sitting up in bed, NAD , + cough, fatigued/chronically ill appearing , being medicated for back pain HEENT: head atraumatic, normocephalic, mmm, trachea midline Resp: +cough but able to talk in complete sentences at times, +moist cough, expiratory wheezing throughout, on oxymask CV: RRR, no significant m/r/g, +pitting edema to b/l, equal, pulses palpable GI: +BS, soft/NT : pederson draining yellow urine MSK/Neuro: nonfocal, no slurred speech/facial droop, able to follow commands , generalized weakness, chronic back pain Psych: AOx3, cooperative with exam Results & Data Results & Data Vital Signs (Past 12 Hours) Vital Signs Temp Pulse Pulse Resp BP BP Pulse Ox 02/10/24 08:00 67 22 97 02/10/24 08:00 128/60 02/10/24 07:31 74 23 94 02/10/24 07:31 130/44 L 02/10/24 07:30 74 23 95 02/10/24 07:08 72 02/10/24 07:07 74 23 96 02/10/24 07:06 73 23 96 02/10/24 07:00 126/73 02/10/24 07:00 72 23 96 02/10/24 06:31 79 24 94 02/10/24 06:31 147/67 H 02/10/24 06:30 66 23 91 02/10/24 06:00 118/56 L 02/10/24 06:00 65 24 93 02/10/24 05:30 129/61 02/10/24 05:30 66 24 93 02/10/24 05:00 134/67 02/10/24 05:00 67 23 95 02/10/24 04:48 02/10/24 04:48 68 18 134/84 95 02/10/24 04:30 134/64 02/10/24 04:30 63 23 94 02/10/24 04:04 64 18 120/61 95 02/10/24 04:00 120/51 L 02/10/24 04:00 63 22 94 02/10/24 03:30 119/59 L 02/10/24 03:30 64 24 93 02/10/24 03:00 66 22 95 02/10/24 03:00 132/63 02/10/24 02:30 127/61 02/10/24 02:30 61 22 95 02/10/24 02:20 64 22 97 02/10/24 02:19 64 21 96 02/10/24 02:00 62 21 97 02/10/24 02:00 125/62 02/10/24 01:45 60 18 115/54 L 97 02/10/24 01:45 60 18 97 02/10/24 01:30 115/54 L 02/10/24 01:30 59 L 20 95 02/10/24 01:27 59 L 02/10/24 01:00 103/51 L 02/10/24 01:00 60 24 94 02/10/24 00:30 111/52 L 02/10/24 00:30 59 L 23 93 02/10/24 00:00 109/75 02/10/24 00:00 67 22 97 02/09/24 23:31 66 23 100 02/09/24 23:31 116/58 L 02/09/24 23:30 67 24 100 02/09/24 23:18 57 L 21 100 02/09/24 23:00 114/56 L 02/09/24 23:00 60 20 98 02/09/24 23:00 114/56 L 98 02/09/24 22:31 71 17 96 02/09/24 22:31 136/57 L 02/09/24 22:30 77 13 02/09/24 22:00 95/56 L 02/09/24 22:00 60 21 98 02/09/24 21:55 67 21 98 02/09/24 21:49 122/48 L 02/09/24 21:49 65 27 H 96 02/09/24 21:34 67 02/09/24 21:34 64 18 97 02/09/24 21:34 62 18 122/55 L 97 02/09/24 21:32 64 21 98 02/09/24 21:32 122/55 L 02/09/24 21:19 79 L 02/09/24 21:19 36.6 C 64 18 122/55 L 99 02/09/24 21:19 O2 Del Method O2 Flow Rate FiO2 02/10/24 08:00 02/10/24 08:00 02/10/24 07:31 02/10/24 07:31 02/10/24 07:30 02/10/24 07:08 02/10/24 07:07 35 02/10/24 07:06 BiPAP 35 02/10/24 07:00 02/10/24 07:00 02/10/24 06:31 02/10/24 06:31 02/10/24 06:30 02/10/24 06:00 02/10/24 06:00 02/10/24 05:30 02/10/24 05:30 02/10/24 05:00 02/10/24 05:00 02/10/24 04:48 CPAP 02/10/24 04:48 CPAP 02/10/24 04:30 02/10/24 04:30 02/10/24 04:04 CPAP 02/10/24 04:00 02/10/24 04:00 02/10/24 03:30 02/10/24 03:30 02/10/24 03:00 02/10/24 03:00 02/10/24 02:30 02/10/24 02:30 02/10/24 02:20 35 02/10/24 02:19 BiPAP 35 02/10/24 02:00 02/10/24 02:00 02/10/24 01:45 CPAP 02/10/24 01:45 CPAP 02/10/24 01:30 02/10/24 01:30 02/10/24 01:27 02/10/24 01:00 02/10/24 01:00 02/10/24 00:30 02/10/24 00:30 02/10/24 00:00 02/10/24 00:00 02/09/24 23:31 02/09/24 23:31 02/09/24 23:30 02/09/24 23:18 40 02/09/24 23:00 02/09/24 23:00 02/09/24 23:00 CPAP 02/09/24 22:31 02/09/24 22:31 02/09/24 22:30 02/09/24 22:00 02/09/24 22:00 02/09/24 21:55 50 02/09/24 21:49 02/09/24 21:49 02/09/24 21:34 02/09/24 21:34 Nasal Cannula 4 02/09/24 21:34 Nasal Cannula 4 02/09/24 21:32 02/09/24 21:32 02/09/24 21:19 Nasal Cannula 0 02/09/24 21:19 Nasal Cannula 4 02/09/24 21:19 Oxymask 10 Laboratory Results 02/10/24 02/10/24 02/10/24 Range/Units Unknown 12:58 08:43 WBC (4.8-10.8) K/ul RBC (4.20-5.40) M/uL Hgb (12.0-16.0) g/dl Hct (37.0-47.0) % MCV (80.0-100.0) fL MCH (25.0-34.0) pg MCHC (32.0-36.0) g/dL RDW Std Deviation (36.4-46.3) fL RDW Coeff of Dorcas (11.5-14.5) % Plt Count (130-400) K/uL MPV (9.4-12.4) fL Immature Gran % (Auto) % Neut % (Auto) % Lymph % (Auto) % [place] % (Auto) % Eos % (Auto) % Baso % (Auto) % Neut # (Auto) (1.40-6.50) K/uL Lymph # (Auto) (1.20-3.40) K/uL [place] # (Auto) (0.11-0.59) K/uL Eos # (Auto) (0.00-0.50) K/uL Baso # (Auto) (0.00-0.20) K/uL Immature Gran # (Auto) (0.01-0.20) K/uL Polychromasia Schistocytes PT (9.0-12.0) Seconds INR (0.9-1.1) VBG pH (7.36-7.41) VBG pCO2 (38-50) mmHg VBG pO2 mmHg VBG HCO3 mmol/L VBG O2 Saturation % VBG Base Excess mEq/L Sodium (136-145) mmol/L Potassium (3.5-5.1) mmol/L Chloride (98-107) mmol/L Carbon Dioxide (21-32) mmol/L Anion Gap (3-11) BUN (6-23) mg/dl Creatinine (0.6-1.2) mg/dl Est Cr Clr Drug Dosing ml/min Est GFR ( Amer) ml/min Est GFR (Non-Af Amer) ml/min BUN/Creatinine Ratio (10-20) Glucose (70-99(Fasting)) mg/dl POC Glucose 200 H 231 H (70-99) mg/dl Estimat Average Glucose 209 mg/dl Hemoglobin A1c 8.9 H (4.5-5.6) % Lactate (0.4-2.0) mmol/L Calcium (8.6-10.3) mg/dl Magnesium (1.7-2.4) mg/dl Iron (35-150) mcg/dl TIBC (250-450) mcg/dl Unsaturated IBC (155-355) mcg/dl Transferrin % Sat (15-50) % Ferritin (8-388) ng/ml Total Bilirubin (0.2-1.0) mg/dl AST (13-39) U/L ALT (7-52) U/L Alkaline Phosphatase (34-104) U/L Troponin I High Sens (0-14) pg/ml B-Natriuretic Peptide (0-100) pg/ml Total Protein (6.0-8.3) gm/dl Albumin (3.4-5.0) gm/dl Globulin (2.5-4.0) gm/dl Albumin/Globulin Ratio (0.9-2) Urine Color Urine Appearance (Clear) Urine pH (4.5-7.5) Ur Specific [place] (1.000-1.030) Urine Protein (Negative) Urine Glucose (UA) (Negative) Urine Ketones (Negative) Urine Blood (Negative) Urine Nitrite (Negative) Urine Bilirubin (Negative) Urine Urobilinogen (Negative) Ur Leukocyte Esterase (Negative) Urine WBC (Auto) (0-5) /hpf Urine RBC (Auto) (0-4) /hpf U Hyaline Cast (Auto) (0-5) /lpf U Epithel Cells (Auto) (0-5) /lpf Urine Bacteria (Auto) (Negative) Nasal Screen MRSA (PCR) (Negative) Random Vancomycin (10-20) mcg/ml Adenovirus (PCR) (NotDetected) B. pertussis DNA (PCR) (NotDetected) B.parapertussis DNA PCR (NotDetected) C. pneumoniae DNA (PCR) (NotDetected) Coronavirus OC43 (PCR) (NotDetected) Coronavirus HKU1 (PCR) (NotDetected) Coronavirus 229E (PCR) (NotDetected) SARS-CoV-2 (PCR) (NotDetected) Coronavirus NL63 (PCR) (NotDetected) Human Metapneumovir PCR (NotDetected) Influenza Type A (PCR) (NotDetected) Influenza Type B (PCR) (NotDetected) M. pneumoniae (PCR) (NotDetected) Parainfluenza 1 (PCR) (NotDetected) Parainfluenza 2 (PCR) (NotDetected) Parainfluenza 3 (PCR) (NotDetected) Parainfluenza 4 (PCR) (NotDetected) RSV (PCR) (NotDetected) Entero/Rhino (PCR) (NotDetected) 02/10/24 02/10/24 02/10/24 Range/Units 05:24 05:23 00:04 WBC 4.51 L (4.8-10.8) K/ul RBC 3.40 L (4.20-5.40) M/uL Hgb 8.8 L (12.0-16.0) g/dl Hct 30.8 L (37.0-47.0) % MCV 90.6 (80.0-100.0) fL MCH 25.9 (25.0-34.0) pg MCHC 28.6 L (32.0-36.0) g/dL RDW Std Deviation 59.5 H (36.4-46.3) fL RDW Coeff of Dorcas 17.9 H (11.5-14.5) % Plt Count 448 H (130-400) K/uL MPV 10.2 (9.4-12.4) fL Immature Gran % (Auto) 0.2 % Neut % (Auto) 87.0 % Lymph % (Auto) 10.4 % Mora % (Auto) 1.6 % Eos % (Auto) 0.4 % Baso % (Auto) 0.4 % Neut # (Auto) 3.92 (1.40-6.50) K/uL Lymph # (Auto) 0.47 L (1.20-3.40) K/uL Mora # (Auto) 0.07 L (0.11-0.59) K/uL Eos # (Auto) 0.02 (0.00-0.50) K/uL Baso # (Auto) 0.02 (0.00-0.20) K/uL Immature Gran # (Auto) 0.01 (0.01-0.20) K/uL Polychromasia 1+ Schistocytes 1+ PT (9.0-12.0) Seconds INR (0.9-1.1) VBG pH (7.36-7.41) VBG pCO2 (38-50) mmHg VBG pO2 mmHg VBG HCO3 mmol/L VBG O2 Saturation % VBG Base Excess mEq/L Sodium 141 (136-145) mmol/L Potassium 5.0 (3.5-5.1) mmol/L Chloride 103 (98-107) mmol/L Carbon Dioxide 29 (21-32) mmol/L Anion Gap 9 (3-11) BUN 22 (6-23) mg/dl Creatinine 1.14 (0.6-1.2) mg/dl Est Cr Clr Drug Dosing 42.9 ml/min Est GFR ( Amer) 55.6 ml/min Est GFR (Non-Af Amer) 48.0 ml/min BUN/Creatinine Ratio 19.3 (10-20) Glucose 200 H (70-99(Fasting)) mg/dl POC Glucose (70-99) mg/dl Estimat Average Glucose mg/dl Hemoglobin A1c (4.5-5.6) % Lactate (0.4-2.0) mmol/L Calcium 8.4 L (8.6-10.3) mg/dl Magnesium 1.9 (1.7-2.4) mg/dl Iron 24 L (35-150) mcg/dl TIBC 249 L (250-450) mcg/dl Unsaturated IBC 225 (155-355) mcg/dl Transferrin % Sat 10 L (15-50) % Ferritin 54.3 (8-388) ng/ml Total Bilirubin (0.2-1.0) mg/dl AST (13-39) U/L ALT (7-52) U/L Alkaline Phosphatase (34-104) U/L Troponin I High Sens (0-14) pg/ml B-Natriuretic Peptide (0-100) pg/ml Total Protein (6.0-8.3) gm/dl Albumin (3.4-5.0) gm/dl Globulin (2.5-4.0) gm/dl Albumin/Globulin Ratio (0.9-2) Urine Color Urine Appearance (Clear) Urine pH (4.5-7.5) Ur Specific [place] (1.000-1.030) Urine Protein (Negative) Urine Glucose (UA) (Negative) Urine Ketones (Negative) Urine Blood (Negative) Urine Nitrite (Negative) Urine Bilirubin (Negative) Urine Urobilinogen (Negative) Ur Leukocyte Esterase (Negative) Urine WBC (Auto) (0-5) /hpf Urine RBC (Auto) (0-4) /hpf U Hyaline Cast (Auto) (0-5) /lpf U Epithel Cells (Auto) (0-5) /lpf Urine Bacteria (Auto) (Negative) Nasal Screen MRSA (PCR) Negative (Negative) Random Vancomycin 10.2 (10-20) mcg/ml Adenovirus (PCR) (NotDetected) B. pertussis DNA (PCR) (NotDetected) B.parapertussis DNA PCR (NotDetected) C. pneumoniae DNA (PCR) (NotDetected) Coronavirus OC43 (PCR) (NotDetected) Coronavirus HKU1 (PCR) (NotDetected) Coronavirus 229E (PCR) (NotDetected) SARS-CoV-2 (PCR) (NotDetected) Coronavirus NL63 (PCR) (NotDetected) Human Metapneumovir PCR (NotDetected) Influenza Type A (PCR) (NotDetected) Influenza Type B (PCR) (NotDetected) M. pneumoniae (PCR) (NotDetected) Parainfluenza 1 (PCR) (NotDetected) Parainfluenza 2 (PCR) (NotDetected) Parainfluenza 3 (PCR) (NotDetected) Parainfluenza 4 (PCR) (NotDetected) RSV (PCR) (NotDetected) Entero/Rhino (PCR) (NotDetected) 02/09/24 02/09/24 02/09/24 Range/Units 21:44 21:27 21:26 WBC 6.43 (4.8-10.8) K/ul RBC 3.60 L (4.20-5.40) M/uL Hgb 9.5 L (12.0-16.0) g/dl Hct 32.6 L (37.0-47.0) % MCV 90.6 (80.0-100.0) fL MCH 26.4 (25.0-34.0) pg MCHC 29.1 L (32.0-36.0) g/dL RDW Std Deviation 59.6 H (36.4-46.3) fL RDW Coeff of Dorcas 17.8 H (11.5-14.5) % Plt Count 467 H (130-400) K/uL MPV 9.7 (9.4-12.4) fL Immature Gran % (Auto) 0.3 % Neut % (Auto) 69.1 % Lymph % (Auto) 18.2 % Mora % (Auto) 8.6 % Eos % (Auto) 3.0 % Baso % (Auto) 0.8 % Neut # (Auto) 4.45 (1.40-6.50) K/uL Lymph # (Auto) 1.17 L (1.20-3.40) K/uL Mora # (Auto) 0.55 (0.11-0.59) K/uL Eos # (Auto) 0.19 (0.00-0.50) K/uL Baso # (Auto) 0.05 (0.00-0.20) K/uL Immature Gran # (Auto) 0.02 (0.01-0.20) K/uL Polychromasia Schistocytes PT 12.5 H (9.0-12.0) Seconds INR 1.2 H (0.9-1.1) VBG pH 7.29 L (7.36-7.41) VBG pCO2 72 H (38-50) mmHg VBG pO2 34 mmHg VBG HCO3 35 mmol/L VBG O2 Saturation < 60.0 % VBG Base Excess 5.5 mEq/L Sodium 141 (136-145) mmol/L Potassium 4.5 (3.5-5.1) mmol/L Chloride 105 (98-107) mmol/L Carbon Dioxide 33 H (21-32) mmol/L Anion Gap 3 (3-11) BUN 21 (6-23) mg/dl Creatinine 1.15 (0.6-1.2) mg/dl Est Cr Clr Drug Dosing 42.5 ml/min Est GFR ( Amer) 55.0 ml/min Est GFR (Non-Af Amer) 47.5 ml/min BUN/Creatinine Ratio 18.3 (10-20) Glucose 161 H (70-99(Fasting)) mg/dl POC Glucose (70-99) mg/dl Estimat Average Glucose mg/dl Hemoglobin A1c (4.5-5.6) % Lactate 1.3 (0.4-2.0) mmol/L Calcium 8.2 L (8.6-10.3) mg/dl Magnesium 1.8 (1.7-2.4) mg/dl Iron (35-150) mcg/dl TIBC (250-450) mcg/dl Unsaturated IBC (155-355) mcg/dl Transferrin % Sat (15-50) % Ferritin (8-388) ng/ml Total Bilirubin 0.2 (0.2-1.0) mg/dl AST 17 (13-39) U/L ALT 19 (7-52) U/L Alkaline Phosphatase 79 (34-104) U/L Troponin I High Sens 7.0 (0-14) pg/ml B-Natriuretic Peptide 111 H (0-100) pg/ml Total Protein 5.6 L (6.0-8.3) gm/dl Albumin 3.0 L (3.4-5.0) gm/dl Globulin 2.6 (2.5-4.0) gm/dl Albumin/Globulin Ratio 1.2 (0.9-2) Urine Color Yellow Urine Appearance Cloudy A (Clear) Urine pH 6.0 (4.5-7.5) Ur Specific [place] 1.017 (1.000-1.030) Urine Protein 2+ H (Negative) Urine Glucose (UA) Negative (Negative) Urine Ketones Trace H (Negative) Urine Blood Negative (Negative) Urine Nitrite Negative (Negative) Urine Bilirubin Negative (Negative) Urine Urobilinogen Negative (Negative) Ur Leukocyte Esterase 1+ H (Negative) Urine WBC (Auto) 1-5 (0-5) /hpf Urine RBC (Auto) 0-4 (0-4) /hpf U Hyaline Cast (Auto) 0 (0-5) /lpf U Epithel Cells (Auto) 20-30 H (0-5) /lpf Urine Bacteria (Auto) 2+ H (Negative) Nasal Screen MRSA (PCR) (Negative) Random Vancomycin (10-20) mcg/ml Adenovirus (PCR) Not Detected (NotDetected) B. pertussis DNA (PCR) Not Detected (NotDetected) B.parapertussis DNA PCR Not Detected (NotDetected) C. pneumoniae DNA (PCR) Not Detected (NotDetected) Coronavirus OC43 (PCR) Not Detected (NotDetected) Coronavirus HKU1 (PCR) Not Detected (NotDetected) Coronavirus 229E (PCR) Not Detected (NotDetected) SARS-CoV-2 (PCR) Not Detected (NotDetected) Coronavirus NL63 (PCR) Not Detected (NotDetected) Human Metapneumovir PCR Not Detected (NotDetected) Influenza Type A (PCR) Not Detected (NotDetected) Influenza Type B (PCR) Not Detected (NotDetected) M. pneumoniae (PCR) Not Detected (NotDetected) Parainfluenza 1 (PCR) Not Detected (NotDetected) Parainfluenza 2 (PCR) Not Detected (NotDetected) Parainfluenza 3 (PCR) Not Detected (NotDetected) Parainfluenza 4 (PCR) Not Detected (NotDetected) RSV (PCR) Not Detected (NotDetected) Entero/Rhino (PCR) Not Detected (NotDetected) Diagnostic Findings Chest X-Ray 02/09/24 21:15 XR chest 1V portable CLINICAL HISTORY: Dyspnea TECHNIQUE: Single frontal radiograph of the chest was obtained. Comparison: Comparison is made to chest radiograph 01/15/2024 FINDINGS: No lines and tubes are seen. Cardiomegaly is noted. The aortic arch is calcified. Right lower lung airspace opacity is seen. No evidence of pleural effusion or pneumothorax. IMPRESSION: Right lower lung airspace opacity. This may represent atelectasis, pneumonia, and/or aspiration. ACT 112: Negative or not required by law. Electronically signed by: Tushar Souza M.D. 02/10/2024 7:01 AM Abdomen/Pelvis CTA 02/09/24 21:44 Exam(s): CTA ABDOMEN + PELVIS With Contrast IV Amt: 119 ml opti 320 EXAM: CT Angiography Abdomen and Pelvis With Intravenous Contrast CLINICAL HISTORY: Reason for exam: abdominal pain; AMS. TECHNIQUE: Axial computed tomographic angiography images of the abdomen and pelvis with intravenous contrast. CTDI is 54 mGy and DLP is 2369.18 mGy-cm. Automated exposure control was utilized for the study. A dose lowering technique was utilized adhering to the principles of ALARA. MIP reconstructed images were created and reviewed. CONTRAST: Patient received 119 ml opti 320 of IV contrast COMPARISON: No relevant prior studies available. FINDINGS: VASCULATURE: Aorta: 4.1 x 4.3 cm infrarenal abdominal aortic aneurysm. Diffuse atherosclerotic change of the thoracic aorta. No dissection. Celiac trunk and mesenteric arteries: No acute findings. No occlusion or significant stenosis. Renal arteries: No acute findings. No occlusion or significant stenosis. Iliac arteries: No acute findings. No occlusion or significant stenosis. Lung bases: Right middle lobe infiltrate. Pleural space: Right-sided pleural effusion. Heart: Coronary artery calcifications. ABDOMEN: Liver: Unremarkable. No mass. Gallbladder and bile ducts: Postoperative changes prior cholecystectomy. No ductal dilation. Pancreas: Unremarkable. No ductal dilation. No mass. Spleen: Unremarkable. No splenomegaly. Adrenals: 1.2 cm left adrenal left nodule. Kidneys and ureters: Unremarkable. No hydronephrosis. No solid mass. Stomach and bowel: Diverticulosis without evidence of diverticulitis. Mild to moderate amount of stool within the colon. No obstruction. PELVIS: Appendix: No findings to suggest acute appendicitis. Bladder: Unremarkable. No mass. Reproductive: Unremarkable as visualized. ABDOMEN and PELVIS: Intraperitoneal space: Unremarkable. No significant fluid collection. No free air. Bones/joints: No acute fracture. No dislocation. Soft tissues: Unremarkable. Lymph nodes: Unremarkable. No enlarged lymph nodes. IMPRESSION: 4.3 cm infrarenal abdominal aortic aneurysm. Fatty infiltration of liver Electronically signed by: Elliot Bonilla MD 02/09/24 23:20 PM Chest CTA 02/09/24 21:44 Exam(s): CTA CHEST W/WO Contrast IV Amt: 119 ml opti 320 EXAM: CT Angiography Chest Without and With Intravenous Contrast CLINICAL HISTORY: Reason for exam: chest pain; hypoxia. TECHNIQUE: Axial computed tomographic angiography images of the chest without and with intravenous contrast. CTDI is 54 mGy and DLP is 2369.18 mGy-cm. Automated exposure control was utilized for the study. A dose lowering technique was utilized adhering to the principles of ALARA. MIP reconstructed images were created and reviewed. CONTRAST: Patient received 119 ml opti 320 of IV contrast COMPARISON: No relevant prior studies available. FINDINGS: Pulmonary arteries: Unremarkable. No pulmonary embolus. Aorta: See below. Lungs: Diffuse changes COPD. Multiple punctate calcifications within the spleen consistent with prior granulomatous disease. Right middle lobe infiltrate likely infectious or inflammatory etiology.. Pleural space: Right pleural effusion aortic valvular calcifications. No pneumothorax. Heart: Unremarkable. No cardiomegaly. No significant pericardial effusion. No evidence of RV dysfunction. Mediastinum: Calcified mediastinal lymph nodes consider prior granulomatous disease. Bones/joints: No acute fracture. No dislocation. Soft tissues: Unremarkable. Lymph nodes: See above. IMPRESSION: Moderate sized right pleural effusion Right middle lobe infiltrate likely infectious or inflammatory etiology Electronically signed by: Elliot Bonilla MD 02/09/24 23:33 PM PG Care Time/CCT Total # of Minutes Spent Total Time Spent with Patient: Total time spent is greater than 50% in coordination of care (as documented) at patient's floor/unit and/or counseling patient: Coding Level of Care Code 01236 SUB INP/OBS CARE 3/50MIN Diagnoses Acute confusion R41.0 Acute on chronic respiratory failure with hypoxia and hypercapnia J96.21; J96.22 Acute UTI (urinary tract infection) N39.0 CHF (congestive heart failure) I50.9 Heart failure chronicity: acute on chronic Heart failure type: unspecified Afib I48.91 Pleural effusion J90 Pneumonia J18.9 Laterality: right Lung location: lower lobe of lung Pneumonia type: due to unspecified organism Metabolic encephalopathy G93.41 Lower extremity edema R60.0 B12 deficiency E53.8 Anemia D64.9 Anemia type: unspecified type Current smoker F17.200 (4) CHF (congestive heart failure) Heart failure chronicity: acute on chronic Heart failure type: unspecified Qualified Code(s): I50.9 - Heart failure, unspecified (7) Pneumonia Laterality: right Lung location: lower lobe of lung Pneumonia type: due to unspecified organism Qualified Code(s): J18.9 - Pneumonia, unspecified organism (11) Anemia Anemia type: unspecified type Qualified Code(s): D64.9 - Anemia, unspecified
[2024-02-10] MEDS: INSULIN ASPART PER UNIT CHARGE SC SCH (09:35)
[2024-02-10 09:42] LABS: Hematocrit (blood only) 30.8 % (37.0-47.0); Hemoglobin 8.8 g/dl (12.0-16.0); Mean Corpuscular Hemoglobin 25.9 pg (25.0-34.0); Mean Corpuscular Hgb Conc 28.6 g/dL (32.0-36.0); Mean Corpuscular Volume 90.6 fL (80.0-100.0); Mean Platelet Volume 10.2 fL (9.4-12.4); Platelet Count 448 K/uL (130-400); RDW Coefficient of Variation 17.9 % (11.5-14.5); RDW Standard Deviation 59.5 fL (36.4-46.3); White Blood Count 4.51 K/ul (4.8-10.8)
[2024-02-10 09:52] LABS: BUN Creatinine Ratio 19.3 (10-20); Calcium 8.4 mg/dl (8.6-10.3); Creatinine Clr Calc Pharmacy 42.9 ml/min; Est GFR (African American) 55.6 ml/min; Magnesium 1.9 mg/dl (1.7-2.4)
[2024-02-10 10:01] LABS: Basophils # (auto) 0.02 K/uL (0.00-0.20); Basophils % (auto) 0.4 %; Eosinophils # (auto) 0.02 K/uL (0.00-0.50); Eosinophils % (auto) 0.4 %; Immature Granulocytes # (auto) 0.01 K/uL (0.01-0.20); Immature Granulocytes % (auto) 0.2 %; Lymphocytes # (auto) 0.47 K/uL (1.20-3.40); Lymphocytes % (auto) 10.4 %; Monocytes # (auto) 0.07 K/uL (0.11-0.59); Monocytes % (auto) 1.6 %; Neutrophils # (auto) 3.92 K/uL (1.40-6.50); Polychromasia 1+; Schistocytes 1+
[2024-02-10 10:11] LABS: Ferritin 54.3 ng/ml (8-388)
[2024-02-10] MEDS: oxyCODONE HCL IR 5 MG TAB (IMMEDIATE RELEASE) PO PRN (13:54)
--- NOTE | 2024-02-10 14:47 | Electrocardiogram Report ---
Test Reason : Blood Pressure : / mmHG Vent. Rate : 065 BPM Atrial Rate : 065 BPM P-R Int : 148 ms QRS Dur : 082 ms QT Int : 434 ms P-R-T Axes : 062 028 062 degrees QTc Int : 451 ms Normal sinus rhythm Normal ECG When compared with ECG of 15-JAN-2024 11:17, Premature atrial complexes are no longer Present Vent. rate has decreased BY 32 BPM Borderline criteria for Inferior infarct are no longer Present Confirmed by Lion Digeo ([id number]) on 02/10/2024 2:47:02 PM Referred By: REFERRED SELF Confirmed By:Yvan Diego
--- NOTE | 2024-02-10 15:52 | Pulmonary Consultation ---
Date of Consultation February 10, 2024 Assessment & Plan (1) COPD with acute exacerbation: (2) Acute on chronic respiratory failure with hypoxia and hypercapnia: (3) Pleural effusion: Plan Impression: 74-year-old female with advanced COPD and ongoing tobacco exposure. She continues to smoke at the rate of half pack per day. It is unclear what the patient's actual wishes and level of care are as she is currently listed as a full code however prior admissions have indicated a desire to pursue palliative care and DNR/DNI status. She is admitted with altered mental status but her blood gas shows chronic hypercarbic respiratory failure I am not sure her hypercarbia can be blamed for her altered mental status. Recommendations: 1. COPD: She is not overtly bronchospastic currently. Will continue Perforomist. Add budesonide and Incruse. Okay to use DuoNebs for now. Agree with steroids but can likely transition fairly rapidly. Placed on broad- spectrum antibiotics but I do not see evidence of pneumonia. Will defer antibiotics to the primary service. 2. Hypoxemic hypercarbic respiratory failure: The patient has AVAPS at home. Review of her compliance data indicates that she is not using on a regular basis however she states she is using it. Can continue nightly noninvasive positive pressure ventilation while in the hospital although previously the patient had refused to use it. This will need to be readdressed as her mental status clears. 3. Recommend reengaging palliative care. Unclear endpoint for this patient. Certainly readdressing CODE STATUS is intubation mechanical ventilation would be unlikely to improve the degree of obstructive physiology this patient continues to abuse tobacco products. Will continue to follow with you. Feel free to contact us with questions or concerns History of Present Illness Attending Physician: Timothy Richards MD History of Present Illness Asked by hospitalist SARY to evaluate this patient with "end-stage COPD". History is obtained from discussion with the patient as well as review the electronic medical record. Patient is a 74-year-old female with advanced COPD. Last PFTs were performed over 5 years ago as the patient is followed in [place] by pulmonary there. This demonstrated an FEV1 of less than 50%. She unfortunately continues to abuse tobacco products at the rate of half pack per day. She has a BiPAP at home but is noncompliant with it. She has recurrent hypoxemic and hypercarbic respiratory failure. During a prior admission, she was seen by palliative care and apparently it appears that she was discharged to hospice. Unclear what happened at that point in time as she has had multiple hospitalizations since apparently being enrolled in hospice. She was brought to the emergency room early this morning by her due to altered mental status. She was found to be hypercarbic with a small pleural effusion. She was initially placed on BiPAP. She received antibiotics. She was admitted to the hospitalist service and pulmonary is consulted for additional evaluation management. The patient remains somewhat confused and is unable to give coherent history. No family is immediately available. She states her breathing is doing okay currently but she does admit that she is struggling at home. Allergies Allergy/AdvReac Type Severity Reaction Status Date / Time diflunisal AdvReac Intermediate HEART RACES Verified 02/10/24 00:59 Home Medications Medication Instructions Recorded Confirmed Type albuterol sulfate 90 mcg/actuation 2 puff inhalation Q6 PRN Shortness 08/28/20 02/10/24 History aerosol inhaler (Ventolin HFA) Of Breath Or Wheezing aspirin 81 mg tablet,delayed 81 mg PO QAM 08/28/20 02/10/24 History release (Uri Low Dose Aspirin) metformin 1,000 mg tablet 1,000 mg PO BID 08/28/20 02/10/24 History blood sugar diagnostic (OneTouch #50 ea 06/02/21 02/10/24 Rx Verio test strips) folic acid 1 mg tablet 1 mg PO QAM 03/24/22 02/10/24 History losartan 50 mg tablet 50 mg PO QAM 03/24/22 02/10/24 History ipratropium 0.5 mg-albuterol 3 mg 3 ml inhalation Q4H PRN shortness 12/13/22 02/10/24 Rx (2.5 mg base)/3 mL nebulization of breath #90 mL soln rosuvastatin 20 mg tablet 20 mg PO DAILY 08/23/23 02/10/24 History apixaban 5 mg tablet (Eliquis) 5 mg PO BID #60 tabs 09/10/23 02/10/24 Rx diltiazem HCl 180 mg 180 mg PO QAM #30 caps 09/10/23 02/10/24 Rx capsule,extended release 24 hr glipizide 5 mg tablet 5 mg PO DAILY #30 tabs 09/10/23 02/10/24 Rx metoprolol succinate 50 mg 50 mg PO BID #60 tabs 09/10/23 02/10/24 Rx tablet,extended release 24 hr oxycodone 5 mg tablet 5 mg PO TID PRN Pain #30 tabs 09/10/23 02/10/24 Rx budesonide-formoterol HFA 160 2 puff inhalation BID 09/21/23 02/10/24 History mcg-4.5 mcg/actuation aerosol inhaler pantoprazole 40 mg tablet,delayed 40 mg PO BID #60 tabs 11/24/23 02/10/24 Rx release tiotropium bromide 1.25 2 puff inhalation DAILY #4 grams 11/24/23 02/10/24 Rx mcg/actuation mist for inhalation (Spiriva Respimat) Ferosul Tab 125 mg PO BID 02/10/24 02/10/24 History furosemide 20 mg tablet 20 mg PO DAILY PRN Edema 02/10/24 02/10/24 History guaifenesin 600 mg tablet, 1,200 mg PO Q12 PRN Congestion 02/10/24 02/10/24 History extended release 12 hr (Mucinex) sodium chloride 7 % for 4 ml NEB BIDR PRN Shortness Of 02/10/24 02/10/24 History nebulization Breath Or Wheezing Patient History Medical History Severe muscle deconditioning COPD exacerbation Acute on chronic respiratory failure with hypoxia Chronic pain syndrome Abdominal pain Respiratory failure Hyperkalemia Diabetes type 2, uncontrolled Acute hypercapnic respiratory failure TATY (acute kidney injury) AMS (altered mental status) Syncope Acute UTI Acute hypotension Chronic kidney disease, stage 3a Acute kidney injury Acute exacerbation of chronic low back pain Candidiasis of mouth and esophagus Tobacco abuse DVT prophylaxis Diabetes mellitus COPD (chronic obstructive pulmonary disease) Hypertension Hyperlipidemia Acute on chronic respiratory failure with hypoxia and hypercapnia History of knee replacement Left peroneal nerve palsy AAA (abdominal aortic aneurysm) Diaphragmatic hernia (10/31/11) Chronic low back pain Surgical History History of bilateral oophorectomies History of appendectomy History of lithotripsy (~2007) H/O Achilles tendon repair (~2007) Hx of cholecystectomy H/O: hysterectomy Family History Other Family history non-contributory Social History Smoking Status: Current every day smoker Tobacco Type: Cigarettes Age Started Using Tobacco: 32; Cigarettes Per Day: 1/2 ppd; Second Hand Exposure: Yes; Do You Dip or Chew Tobacco: No; Hx Alcohol Use: No Hx Substance Use: No Preferred Language: Romansh Communication Ability: Effective Rn Labor And Delivery Required: No Beliefs That Will Affect Care: None marital status: Current Living Situation: Spouse Current Living Situation Comment: Lives at home with How many Children do You have: 3 Other Information That Helps Us Care for You: No Feels Safe at Home: Yes Safety Concerns: Feels Safe At This Time Assistive Devices: Cane, CPAP, Oxygen - Continuous and Walker Review of Systems Review of Systems: Please refer to admission H&P. No additions or deletions Physical Exam Constitutional: WD/WN, vitals as above Eyes: EOM intact bilaterally; no conjunctival abnormality ENMT: external ear and nose normal, oropharynx normal Neck: trachea midline, no thyromegaly normal visual inspection Respiratory: no respiratory distress, no labored breathing, no cough and not tachypneic Auscultation: + diminished lung sounds and + rhonchi Cardiovascular: RRR, no murmur, no edema Gastrointestinal (Abdomen): Inspection/Auscultation: abdomen normal to inspection; abdomen not distended Musculoskeletal: no cyanosis or clubbing, extremities motor strength 5/5 Skin: no rashes, warm and dry Neurologic: moves all extremities and awake Psychiatric: Orientation: alert, oriented to person and cooperative Results & Data Results & Data Vital Signs (Past 12 Hours) Vital Signs Temp Pulse Pulse Resp BP BP Pulse Ox 02/10/24 15:22 37.0 C 82 19 146/66 H 96 02/10/24 14:27 77 20 93 02/10/24 12:00 75 21 94 02/10/24 12:00 139/62 02/10/24 11:30 129/59 L 02/10/24 11:30 73 23 91 02/10/24 11:00 134/62 02/10/24 11:00 70 23 94 02/10/24 10:30 71 23 99 02/10/24 10:30 135/63 02/10/24 10:15 73 20 95 02/10/24 10:00 67 25 H 90 02/10/24 10:00 113/72 02/10/24 09:30 70 27 H 94 02/10/24 09:30 141/64 H 02/10/24 09:24 147/79 H 02/10/24 09:24 84 19 90 02/10/24 09:00 68 23 93 02/10/24 09:00 107/60 02/10/24 08:30 129/68 02/10/24 08:30 66 23 94 02/10/24 08:00 67 22 97 02/10/24 08:00 128/60 02/10/24 07:31 74 23 94 02/10/24 07:31 130/44 L 02/10/24 07:30 74 23 95 02/10/24 07:08 72 02/10/24 07:07 74 23 96 02/10/24 07:06 73 23 96 02/10/24 07:00 126/73 02/10/24 07:00 72 23 96 02/10/24 06:31 79 24 94 02/10/24 06:31 147/67 H 02/10/24 06:30 66 23 91 02/10/24 06:00 118/56 L 02/10/24 06:00 65 24 93 02/10/24 05:30 129/61 02/10/24 05:30 66 24 93 02/10/24 05:00 134/67 02/10/24 05:00 67 23 95 02/10/24 04:48 02/10/24 04:48 68 18 134/84 95 02/10/24 04:30 134/64 02/10/24 04:30 63 23 94 02/10/24 04:04 64 18 120/61 95 02/10/24 04:00 120/51 L 02/10/24 04:00 63 22 94 O2 Del Method O2 Flow Rate FiO2 02/10/24 15:22 Oxymask 4 02/10/24 14:27 Oxymask 4 02/10/24 12:00 02/10/24 12:00 02/10/24 11:30 02/10/24 11:30 02/10/24 11:00 02/10/24 11:00 02/10/24 10:30 02/10/24 10:30 02/10/24 10:15 BiPAP 35 02/10/24 10:00 02/10/24 10:00 02/10/24 09:30 02/10/24 09:30 02/10/24 09:24 02/10/24 09:24 02/10/24 09:00 02/10/24 09:00 02/10/24 08:30 02/10/24 08:30 02/10/24 08:00 02/10/24 08:00 02/10/24 07:31 02/10/24 07:31 02/10/24 07:30 02/10/24 07:08 02/10/24 07:07 35 02/10/24 07:06 BiPAP 35 02/10/24 07:00 02/10/24 07:00 02/10/24 06:31 02/10/24 06:31 02/10/24 06:30 02/10/24 06:00 02/10/24 06:00 02/10/24 05:30 02/10/24 05:30 02/10/24 05:00 02/10/24 05:00 02/10/24 04:48 CPAP 02/10/24 04:48 CPAP 02/10/24 04:30 02/10/24 04:30 02/10/24 04:04 CPAP 02/10/24 04:00 02/10/24 04:00 Critical Care Results & Data Vital Signs (Past 12 Hours) Vital Signs Temp Pulse Pulse Resp BP BP Pulse Ox 02/10/24 15:22 37.0 C 82 19 146/66 H 96 02/10/24 14:27 77 20 93 02/10/24 12:00 75 21 94 02/10/24 12:00 139/62 02/10/24 11:30 129/59 L 02/10/24 11:30 73 23 91 02/10/24 11:00 134/62 02/10/24 11:00 70 23 94 02/10/24 10:30 71 23 99 02/10/24 10:30 135/63 02/10/24 10:15 73 20 95 02/10/24 10:00 67 25 H 90 02/10/24 10:00 113/72 02/10/24 09:30 70 27 H 94 02/10/24 09:30 141/64 H 02/10/24 09:24 147/79 H 02/10/24 09:24 84 19 90 02/10/24 09:00 68 23 93 02/10/24 09:00 107/60 02/10/24 08:30 129/68 02/10/24 08:30 66 23 94 02/10/24 08:00 67 22 97 02/10/24 08:00 128/60 02/10/24 07:31 74 23 94 02/10/24 07:31 130/44 L 02/10/24 07:30 74 23 95 02/10/24 07:08 72 02/10/24 07:07 74 23 96 02/10/24 07:06 73 23 96 02/10/24 07:00 126/73 02/10/24 07:00 72 23 96 02/10/24 06:31 79 24 94 02/10/24 06:31 147/67 H 02/10/24 06:30 66 23 91 02/10/24 06:00 118/56 L 02/10/24 06:00 65 24 93 02/10/24 05:30 129/61 02/10/24 05:30 66 24 93 02/10/24 05:00 134/67 02/10/24 05:00 67 23 95 02/10/24 04:48 02/10/24 04:48 68 18 134/84 95 02/10/24 04:30 134/64 02/10/24 04:30 63 23 94 02/10/24 04:04 64 18 120/61 95 02/10/24 04:00 120/51 L 02/10/24 04:00 63 22 94 O2 Del Method O2 Flow Rate FiO2 02/10/24 15:22 Oxymask 4 02/10/24 14:27 Oxymask 4 02/10/24 12:00 02/10/24 12:00 02/10/24 11:30 02/10/24 11:30 02/10/24 11:00 02/10/24 11:00 02/10/24 10:30 02/10/24 10:30 02/10/24 10:15 BiPAP 35 02/10/24 10:00 02/10/24 10:00 02/10/24 09:30 02/10/24 09:30 02/10/24 09:24 02/10/24 09:24 02/10/24 09:00 02/10/24 09:00 02/10/24 08:30 02/10/24 08:30 02/10/24 08:00 02/10/24 08:00 02/10/24 07:31 02/10/24 07:31 02/10/24 07:30 02/10/24 07:08 02/10/24 07:07 35 02/10/24 07:06 BiPAP 35 02/10/24 07:00 02/10/24 07:00 02/10/24 06:31 02/10/24 06:31 02/10/24 06:30 02/10/24 06:00 02/10/24 06:00 02/10/24 05:30 02/10/24 05:30 02/10/24 05:00 02/10/24 05:00 02/10/24 04:48 CPAP 02/10/24 04:48 CPAP 02/10/24 04:30 02/10/24 04:30 02/10/24 04:04 CPAP 02/10/24 04:00 02/10/24 04:00 Lab & Micro Results (Past 24 Hours) RBC 3.40 M/uL (4.20-5.40) L 02/10/24 WBC 4.51 K/ul (4.8-10.8) L 02/10/24 Hgb 8.8 g/dl (12.0-16.0) L 02/10/24 Hct 30.8 % (37.0-47.0) L 02/10/24 MCV 90.6 fL (80.0-100.0) 02/10/24 MCH 25.9 pg (25.0-34.0) 02/10/24 MCHC 28.6 g/dL (32.0-36.0) L 02/10/24 RDW Standard Deviation 59.5 fL (36.4-46.3) H 02/10/24 RDW Coefficient of Variation 17.9 % (11.5-14.5) H 02/10/24 Plt Count 448 K/uL (130-400) H 02/10/24 MPV 10.2 fL (9.4-12.4) 02/10/24 Neutrophils (%) (Auto) 87.0 % 02/10/24 Lymphocytes (%) (Auto) 10.4 % 02/10/24 Monocytes # (Auto) 0.07 K/uL (0.11-0.59) L 02/10/24 Eosinophils # (Auto) 0.02 K/uL (0.00-0.50) 02/10/24 Immature Granulocyte % (Auto) 0.2 % 02/10/24 Neutrophils # (Auto) 3.92 K/uL (1.40-6.50) 02/10/24 Lymphocytes # (Auto) 0.47 K/uL (1.20-3.40) L 02/10/24 Monocytes # (Auto) 0.07 K/uL (0.11-0.59) L 02/10/24 Eosinophils # (Auto) 0.02 K/uL (0.00-0.50) 02/10/24 Basophils # (Auto) 0.02 K/uL (0.00-0.20) 02/10/24 Immature Granulocyte # (Auto) 0.01 K/uL (0.01-0.20) 4 Polychromasia 1+ 02/10/24 Schistocytes 1+ 02/10/24 Na 141 mmol/L (136-145) 02/10/24 K 5.0 mmol/L (3.5-5.1) 02/10/24 Cl 103 mmol/L (98-107) 02/10/24 CO2 29 mmol/L (21-32) 02/10/24 Anion Gap 9 (3-11) 02/10/24 BUN 22 mg/dl (6-23) 02/10/24 Creatinine 1.14 mg/dl (0.6-1.2) 02/10/24 Estimated GFR ( Amer) 55.6 ml/min 02/10/24 Estimated GFR (Non-Af Amer) 48.0 ml/min 02/10/24 BUN/Creatinine Ratio 19.3 (10-20) 02/10/24 Glu 200 mg/dl (70-99(Fasting)) H 02/10/24 Ca 8.4 mg/dl (8.6-10.3) L 02/10/24 Total Bilirubin 0.2 mg/dl (0.2-1.0) 02/09/24 AST 17 U/L (13-39) 02/09/24 ALT 19 U/L (7-52) 02/09/24 Alkaline Phosphatase 79 U/L (34-104) 02/09/24 TP 5.6 gm/dl (6.0-8.3) L 02/09/24 Albumin 3.0 gm/dl (3.4-5.0) L 02/09/24 Globulin 2.6 gm/dl (2.5-4.0) 02/09/24 Albumin/Globulin Ratio 1.2 (0.9-2) 02/09/24 Mg 1.9 mg/dl (1.7-2.4) 02/10/24 05:23 Calcium Level 8.4 mg/dl (8.6-10.3) L 02/10/24 05:23 Prothromb Time International Ratio 1.2 (0.9-1.1) H 02/09/24 21 :26 Venous Blood pH 7.29 (7.36-7.41) L 02/09/24 21:27 Venous Blood Partial Pressure CO2 72 mmHg (38-50) H 02/09/24 21 :27 Venous Blood Partial Pressure O2 34 mmHg 02/09/24 21:27 Venous Blood HCO3 35 mmol/L 02/09/24 21:27 Venous Blood Base Excess 5.5 mEq/L 02/09/24 21:27 Venous Blood Oxygen Saturation < 60.0 % 02/09/24 21:27 Microbiology 02/09/24 21:44 Urine Culture - Preliminary Urine,Straight Cath Gram negative bacilli Diagnostic Findings (Past 24 Hours) Chest X-Ray 02/09/24 21:15 XR chest 1V portable CLINICAL HISTORY: Dyspnea TECHNIQUE: Single frontal radiograph of the chest was obtained. Comparison: Comparison is made to chest radiograph 01/15/2024 FINDINGS: No lines and tubes are seen. Cardiomegaly is noted. The aortic arch is calcified. Right lower lung airspace opacity is seen. No evidence of pleural effusion or pneumothorax. IMPRESSION: Right lower lung airspace opacity. This may represent atelectasis, pneumonia, and/or aspiration. ACT 112: Negative or not required by law. Electronically signed by: Tushar Souza M.D. 02/10/2024 7:01 AM Abdomen/Pelvis CTA 02/09/24 21:44 Exam(s): CTA ABDOMEN + PELVIS With Contrast IV Amt: 119 ml opti 320 EXAM: CT Angiography Abdomen and Pelvis With Intravenous Contrast CLINICAL HISTORY: Reason for exam: abdominal pain; AMS. TECHNIQUE: Axial computed tomographic angiography images of the abdomen and pelvis with intravenous contrast. CTDI is 54 mGy and DLP is 2369.18 mGy-cm. Automated exposure control was utilized for the study. A dose lowering technique was utilized adhering to the principles of ALARA. MIP reconstructed images were created and reviewed. CONTRAST: Patient received 119 ml opti 320 of IV contrast COMPARISON: No relevant prior studies available. FINDINGS: VASCULATURE: Aorta: 4.1 x 4.3 cm infrarenal abdominal aortic aneurysm. Diffuse atherosclerotic change of the thoracic aorta. No dissection. Celiac trunk and mesenteric arteries: No acute findings. No occlusion or significant stenosis. Renal arteries: No acute findings. No occlusion or significant stenosis. Iliac arteries: No acute findings. No occlusion or significant stenosis. Lung bases: Right middle lobe infiltrate. Pleural space: Right-sided pleural effusion. Heart: Coronary artery calcifications. ABDOMEN: Liver: Unremarkable. No mass. Gallbladder and bile ducts: Postoperative changes prior cholecystectomy. No ductal dilation. Pancreas: Unremarkable. No ductal dilation. No mass. Spleen: Unremarkable. No splenomegaly. Adrenals: 1.2 cm left adrenal left nodule. Kidneys and ureters: Unremarkable. No hydronephrosis. No solid mass. Stomach and bowel: Diverticulosis without evidence of diverticulitis. Mild to moderate amount of stool within the colon. No obstruction. PELVIS: Appendix: No findings to suggest acute appendicitis. Bladder: Unremarkable. No mass. Reproductive: Unremarkable as visualized. ABDOMEN and PELVIS: Intraperitoneal space: Unremarkable. No significant fluid collection. No free air. Bones/joints: No acute fracture. No dislocation. Soft tissues: Unremarkable. Lymph nodes: Unremarkable. No enlarged lymph nodes. IMPRESSION: 4.3 cm infrarenal abdominal aortic aneurysm. Fatty infiltration of liver Electronically signed by: Elliot Bonilla MD 02/09/24 23:20 PM Chest CTA 02/09/24 21:44 Exam(s): CTA CHEST W/WO Contrast IV Amt: 119 ml opti 320 EXAM: CT Angiography Chest Without and With Intravenous Contrast CLINICAL HISTORY: Reason for exam: chest pain; hypoxia. TECHNIQUE: Axial computed tomographic angiography images of the chest without and with intravenous contrast. CTDI is 54 mGy and DLP is 2369.18 mGy-cm. Automated exposure control was utilized for the study. A dose lowering technique was utilized adhering to the principles of ALARA. MIP reconstructed images were created and reviewed. CONTRAST: Patient received 119 ml opti 320 of IV contrast COMPARISON: No relevant prior studies available. FINDINGS: Pulmonary arteries: Unremarkable. No pulmonary embolus. Aorta: See below. Lungs: Diffuse changes COPD. Multiple punctate calcifications within the spleen consistent with prior granulomatous disease. Right middle lobe infiltrate likely infectious or inflammatory etiology.. Pleural space: Right pleural effusion aortic valvular calcifications. No pneumothorax. Heart: Unremarkable. No cardiomegaly. No significant pericardial effusion. No evidence of RV dysfunction. Mediastinum: Calcified mediastinal lymph nodes consider prior granulomatous disease. Bones/joints: No acute fracture. No dislocation. Soft tissues: Unremarkable. Lymph nodes: See above. IMPRESSION: Moderate sized right pleural effusion Right middle lobe infiltrate likely infectious or inflammatory etiology Electronically signed by: Elliot Bonilla MD 02/09/24 23:33 PM I & O Totals 24 Hours 02/09/24 02/10/24 02/11/24 06:59 06:59 06:59 Intake Total 150 / 150 630 / 630 Output Total 480 / 480 450 / 450 Balance -330 / -330 180 / 180 Cumulative 02/09/24 20:55 thru 02/10/24 15:28 Intake Total 780 Output Total 930 Balance -150 RT Ventilator Mngmt (Last Documented) Ventilator Ordered Settings Respiratory Rate 19 02/10/24 15:22 Fraction of Inspired Oxygen 35 02/10/24 10:15 Ventilator - PT Measurements Respiratory Rate 19 PG Care Time/CCT Total # of Minutes Spent Total Time Spent with Patient: Total time spent is greater than 50% in coordination of care (as documented) at patient's floor/unit and/or counseling patient: Coding Level of Care Code 16397 INT INP/OBS CARE 3/75MIN Diagnoses COPD with acute exacerbation J44.1 Acute on chronic respiratory failure with hypoxia and hypercapnia J96.21; J96.22 Pleural effusion J90
[2024-02-10] MEDS ORDERED: FUROSEMIDE INJ 20 MG/2 ML VIAL IV SCH (17:00)
[2024-02-10] MEDS: SODIUM CHLOR 7% 4 ML NEB NEB SCH (19:12)
[2024-02-10] MEDS: BUDESONIDE 0.5 MG/2 ML VIAL (PULMICORT) NEB SCH (19:12)
[2024-02-10] MEDS: FORMOTEROL 20 MCG/2 ML VIAL NEB SCH (19:12)
[2024-02-10] MEDS: guaiFENesin 600 MG TABCR PO SCH (20:51)
[2024-02-10] MEDS: LANTUS PER UNIT CHARGE SQ SCH (21:41)
[2024-02-11] MEDS: UMECLIDINIUM BROMIDE 62.5MCG/BLISTER 7 PUFFS/INHALER INH SCH (00:37)
[2024-02-11 06:57] LABS: Albumin Level 3.3 gm/dl (3.4-5.0); BUN Creatinine Ratio 24.1 (10-20); Calcium 8.7 mg/dl (8.6-10.3); Creatinine Clr Calc Pharmacy 42.1 ml/min; Est GFR (African American) 54.5 ml/min; Hematocrit (blood only) 29.8 % (37.0-47.0); Magnesium 1.9 mg/dl (1.7-2.4); Mean Corpuscular Hemoglobin 26.3 pg (25.0-34.0); Mean Corpuscular Hgb Conc 30.2 g/dL (32.0-36.0); Mean Corpuscular Volume 87.1 fL (80.0-100.0); Phosphorus 4.7 mg/dl (2.5-4.9); Platelet Count 478 K/uL (130-400); Potassium 4.8 mmol/L (3.5-5.1); RDW Coefficient of Variation 17.3 % (11.5-14.5); RDW Standard Deviation 55.3 fL (36.4-46.3); Red Blood Count 3.42 M/uL (4.20-5.40); White Blood Count 10.37 K/ul (4.8-10.8)
--- NOTE | 2024-02-11 07:03 | XRay Report ---
XR chest 1V portable HISTORY: Right pleural effusion and right basilar densities. Follow-up. Shortness of breath. COMPARISON: Chest 02/09/2024. FINDINGS: No pneumothorax. The heart remains top normal in size. Mild chronic interstitial thickening persists. The left lung is clear. Focal right middle lobe density persists. Calcified granuloma with in the right lower lobe. Trace right pleural effusion has improved. No evidence for pulmonary edema. Calcifications within the aortic knob. No acute fractures. Emphysema again noted. IMPRESSION: 1. Focal right middle lobe density persists and favors a pneumonia or scarring. 2. Trace right pleural effusion has improved. 3. Emphysema. ACT 112: Negative or not required by law. Electronically signed by: Wicho Gutierrez M.D. 02/11/2024 7:02 AM
[2024-02-11 07:16] LABS: Basophils # (auto) 0.01 K/uL (0.00-0.20); Basophils % (auto) 0.1 %; Hypochromasia Present; Immature Granulocytes # (auto) 0.04 K/uL (0.01-0.20); Immature Granulocytes % (auto) 0.4 %; Lymphocytes # (auto) 0.58 K/uL (1.20-3.40); Lymphocytes % (auto) 5.6 %; Monocytes # (auto) 0.18 K/uL (0.11-0.59); Monocytes % (auto) 1.7 %; Neutrophils # (auto) 9.56 K/uL (1.40-6.50); Neutrophils % (auto) 92.2 %; Polychromasia 1+; Schistocytes 1+; Tear Drop Cells 1+
[2024-02-11] MEDS ORDERED: PHARMACY GLYCEMIC MGMT CONSULT PRN (08:07)
--- NOTE | 2024-02-11 08:14 | Hospitalist Progress Note ---
Date of Service February 11, 2024 Assessment & Plan (1) Acute on chronic respiratory failure with hypoxia and hypercapnia: Plan: Acute on chronic respiratory failure with hypoxia and hypercapnia/right middle and right lower lobe pneumonia/moderate right pleural effusion- CTA of chest: Moderate sized right pleural effusion. Right middle lobe infiltrate likely infectious or inflammatory etiology Cefepime 2gm IV BID, Vancomycin MRSA swab negative, urine cx w/ gram negative bacilli and will DISCONTINUE vanco BiPAP HS, compliance encouraged at dc w/ her Trelegy as arranged last admission IV steroids transitioning to prednisone 20mg daily for total 5 days Lasix increased to 20mg IV BID but increased to 40mg IV BID w/ net negative 1.1L overnight and BUN/Cr 28/1.16 and will continue such/aim for net negative Continue nebulizers, pulmonary toilet. Perfomomist/budeosonide nebs -- consider budesonide nebs/hypertonic saline continue at discharge Sputum cx as able (was not able to collect last night but reports productive yellow sputum) Pulm on consult, appreciate recs/assistance Smoking cessation encouraged Supplemental O2 to maintain sats -- currently on 5L NC Will transition to Augmentin for urinary coverage as above as well as possible aspiration pneumonia coverage given CXR Labs in AM (2) Acute UTI (urinary tract infection): Plan: Urinary tract infection- +UA on admission, pederson placed given lasix Hx E. coli UTI on 01/15/2024, with resistance to fluoroquinolones.History of Enterococcus faecalis UTI on 11/21/2023, with sensitivity to vancomycin, daptomycin and ampicillin Urine cx GNB on preliminary, discontinued vancomycin Urine cx finalized with Ecoli, resistant to FLQ --> will plan to switch to PO after blood cx NGTD x 48hrs this evening, considering augmentin to cover for pulm given concerns for aspiration pneumonia as well, noting pulm does not feel infectious etiology but would cover w/ augmentin (3) Acute confusion: Plan: Acute confusion- improving Potential etiologies including but not limited to: Pleural effusion, pneumonia, acute on chronic respiratory failure with hypoxia and hypercapnia, COPD exacerbation, urinary tract infection IV abx for UTI, diuretics for volume overload, tx acute respiratory failure w/ nebs/breathing treatments and pulmonary toilet Will plan to transition from Cefepime this evening to augmentin as above to prevent worsened confusion Tolerating her home oxycodone but suspect if using/not using her Trelegy would worsen mental status Appearing pretty alert/oriented for myself, no acute concerns 01/23 (4) CHF (congestive heart failure): Plan: CHF exacerbation- patient had her lasix increased to 40mg daily during discharge in early November, believes she had only been taking 20mg PO daily per her account s/p 20mg IV lasix in ER on admission (with 25g IV albumin) Only net negative 330cc and increased to BID however further increased to 40mg IV BID as above and net negative 1L overnight and will continue Continue AHA diet, 1800cc/day fluid restriction Monitor I&Os, Weights CXR w/ improvement in pleural effusion and will continue current diuretics for now Monitor renal function in am (5) Afib: Plan: On Eliquis BID, prior + fecal occult testing and was held at discharge Hgb around prior, remains on eliquis. Will repeat fecal occult/consider holding if remaining positive (had moved bowels, not collected by nursing but denied any raul bleeding -- await fecal occultesting) Remains on PPI, increase to BID in meantime continue metoprolol BID telemetry monitoring keep K/mag replete Monitor CBC (6) Pleural effusion: Plan: as above, diuresis as outlined CXR w/ improvement w/ increased diuretics and suspect was not taking the increased lasix as she should be (7) Pneumonia: Plan: abx as above, MRSA nares negative, vanco dc'd for now (monitor urine cx, now w/ gram negative rods) switching to augmentin this evening if blood cultures remains NGTD x 48hrs (8) Metabolic encephalopathy: Plan: improving w/ tx as above (9) Lower extremity edema: Plan: as above, suspect aspect of volume overload. diuretics as outlined Improving on repeat exam 02/10 and will monitor w/ continued diuretis Other chronic problems: AAA- 4.3 cm noted on CTA abdomen pelvis Can be followed serially (10) B12 deficiency: Plan: prior low at 107 in October with myself. Provided IM x 3 doses will check w/ AM labs-- b12 on repeat only 285 , while improved will place on PO supplementation daily -- would continue at dc (11) Anemia: Plan: hgb appearing around baseline. as above, eliquis prior held. consideration for doppler LE if needed if had been off such. on currently while inpatient, fecal occult pending B12 borderline, PO ordered as below and given IM last admission Iron panel w/ iron 24, trans % sat 10, ferritin only 54 --> will order Venofer IV x 1 for 02/10, consider repeating for AM 02/11 Continue PPI BID in meantime Monitor CBC (12) Current smoker: Plan: Continue to encourage smoking cessation, 1/2ppd reported (13) Diabetes type 2, uncontrolled: Plan: BSG elevated 335s overnight. suspect this is when she reported her chest pain and likely from IV steroids. A1c last 8.9 Pharmacy consulted for glycemic management , appreciate assistance transitioned to prednisone 20mg PO for AM and hopefully that will help as well Most recent POC 231 and will monitor (14) Chest pain: Plan: reported overnight. ?related to back pain. NSR on telemetry. EKG w/ PVCs No CP reported to myself, breathing much improved BSG control as outlined above EKG w/ CP Will continue to monitor on telemetry Plan continued inpatient stay PT/OT evals pending possible dc in next 48hours pending response to treatment Admission and Anticipated Discharge Date Admission Date: February 10, 2024 Supervising Physician Co-Signing Physician Notes The patient was not seen by me. The chart was reviewed. Case discussed with [place] Haley. Agree with assessment and plan Subjective Evaluated this morning, resting in bed. Utilized BiPAP overnight. On oxymask at present time. Still with moist cough, reports coughing junk up but was unable to collect sputum sample. Reports good appetite, moved bowels overnight, was unable to collect and was thrown away. Encouraged smoking cessation and compliance w/ machine at night at discharge. Discussed continued IV diuretics for today and Venofer replacement. Discussed urine cx and plans to switch to PO antibiotics to complete course as long as blood cultures remain NGTD x 48 hours this evening for tomorrow. Will transition to PO steroids for today given continued inhaled steroids. PT/OT consults pending. Questions/concerns addressed at this time. Did have episode of reported chest discomfort for about 10 minutes overnight, EKG NSR. Denied CP to me and appears was more her chronic back pain/wanting oxycodone. Physical Exam Physical Exam: General: 74yo chronically ill female laying in bed, NAD, reports feeling a little better today HEENT: head atraumatic, normocephalic, mmm, trachea midline Resp: +moist cough, no tachypnea, improvement in air entry bilaterally, almost completely resolved wheezing, +rhonchi, on 4-5L NC CV: RRR, no significant m/r/g, +decreased LE edema bilaterally, pulses palpable, calves nontender GI: +BS, soft/NT : pederson draining clear yellow urine MSK/Neuro: nonfocal, no slurred speech/facial droop, able to follow commands , generalized weakness, chronic back pain at baseline Psych: AOx3, cooperative with exam Results & Data Results & Data Vital Signs (Past 12 Hours) Vital Signs Temp Pulse Pulse Resp BP Pulse Ox O2 Del Method 02/11/24 07:47 36.3 C L 65 22 146/92 H 98 BiPAP 02/11/24 07:18 69 95 Nasal Cannula 02/11/24 03:12 69 29 H 90 02/11/24 03:05 36.5 C 68 24 133/71 92 CPAP 02/10/24 22:58 36.6 C 67 21 135/69 93 CPAP 02/10/24 22:21 88 26 H 89 L 02/10/24 21:55 71 O2 Flow Rate FiO2 02/11/24 07:47 02/11/24 07:18 5 02/11/24 03:12 60 02/11/24 03:05 02/10/24 22:58 02/10/24 22:21 40 02/10/24 21:55 Laboratory Results 02/11/24 02/11/24 02/11/24 Range/Units 11:29 07:31 05:35 WBC 10.37 (4.8-10.8) K/ul RBC 3.42 L (4.20-5.40) M/uL Hgb 9.0 L (12.0-16.0) g/dl Hct 29.8 L (37.0-47.0) % MCV 87.1 (80.0-100.0) fL MCH 26.3 (25.0-34.0) pg MCHC 30.2 L (32.0-36.0) g/dL RDW Std Deviation 55.3 H (36.4-46.3) fL RDW Coeff of Dorcas 17.3 H (11.5-14.5) % Plt Count 478 H (130-400) K/uL MPV 10.0 (9.4-12.4) fL Immature Gran % (Auto) 0.4 % Neut % (Auto) 92.2 % Lymph % (Auto) 5.6 % Mellette % (Auto) 1.7 % Eos % (Auto) 0.0 % Baso % (Auto) 0.1 % Neut # (Auto) 9.56 H (1.40-6.50) K/uL Lymph # (Auto) 0.58 L (1.20-3.40) K/uL Mellette # (Auto) 0.18 (0.11-0.59) K/uL Eos # (Auto) 0.00 (0.00-0.50) K/uL Baso # (Auto) 0.01 (0.00-0.20) K/uL Immature Gran # (Auto) 0.04 (0.01-0.20) K/uL Polychromasia 1+ Hypochromasia Present Tear Drop Cells 1+ Schistocytes 1+ Sodium 138 (136-145) mmol/L Potassium 4.8 (3.5-5.1) mmol/L Chloride 100 (98-107) mmol/L Carbon Dioxide 33 H (21-32) mmol/L Anion Gap 5 (3-11) BUN 28 H (6-23) mg/dl Creatinine 1.16 (0.6-1.2) mg/dl Est Cr Clr Drug Dosing 42.1 ml/min Est GFR ( Amer) 54.5 ml/min Est GFR (Non-Af Amer) 47.0 ml/min BUN/Creatinine Ratio 24.1 H (10-20) Glucose 281 H (70-99(Fasting)) mg/dl POC Glucose 231 H 285 H (70-99) mg/dl Calcium 8.7 (8.6-10.3) mg/dl Phosphorus 4.7 (2.5-4.9) mg/dl Magnesium 1.9 (1.7-2.4) mg/dl Albumin 3.3 L (3.4-5.0) gm/dl Vitamin B12 284 (180-914) pg/ml 02/10/24 02/10/24 02/10/24 Range/Units 21:33 20:55 20:53 WBC (4.8-10.8) K/ul RBC (4.20-5.40) M/uL Hgb (12.0-16.0) g/dl Hct (37.0-47.0) % MCV (80.0-100.0) fL MCH (25.0-34.0) pg MCHC (32.0-36.0) g/dL RDW Std Deviation (36.4-46.3) fL RDW Coeff of Dorcas (11.5-14.5) % Plt Count (130-400) K/uL MPV (9.4-12.4) fL Immature Gran % (Auto) % Neut % (Auto) % Lymph % (Auto) % Mellette % (Auto) % Eos % (Auto) % Baso % (Auto) % Neut # (Auto) (1.40-6.50) K/uL Lymph # (Auto) (1.20-3.40) K/uL Mellette # (Auto) (0.11-0.59) K/uL Eos # (Auto) (0.00-0.50) K/uL Baso # (Auto) (0.00-0.20) K/uL Immature Gran # (Auto) (0.01-0.20) K/uL Polychromasia Hypochromasia Tear Drop Cells Schistocytes Sodium (136-145) mmol/L Potassium (3.5-5.1) mmol/L Chloride (98-107) mmol/L Carbon Dioxide (21-32) mmol/L Anion Gap (3-11) BUN (6-23) mg/dl Creatinine (0.6-1.2) mg/dl Est Cr Clr Drug Dosing ml/min Est GFR ( Amer) ml/min Est GFR (Non-Af Amer) ml/min BUN/Creatinine Ratio (10-20) Glucose (70-99(Fasting)) mg/dl POC Glucose 335 H* 325 H* 314 H* (70-99) mg/dl Calcium (8.6-10.3) mg/dl Phosphorus (2.5-4.9) mg/dl Magnesium (1.7-2.4) mg/dl Albumin (3.4-5.0) gm/dl Vitamin B12 (180-914) pg/ml 02/10/24 02/10/24 Range/Units 16:09 12:58 WBC (4.8-10.8) K/ul RBC (4.20-5.40) M/uL Hgb (12.0-16.0) g/dl Hct (37.0-47.0) % MCV (80.0-100.0) fL MCH (25.0-34.0) pg MCHC (32.0-36.0) g/dL RDW Std Deviation (36.4-46.3) fL RDW Coeff of Dorcas (11.5-14.5) % Plt Count (130-400) K/uL MPV (9.4-12.4) fL Immature Gran % (Auto) % Neut % (Auto) % Lymph % (Auto) % Mellette % (Auto) % Eos % (Auto) % Baso % (Auto) % Neut # (Auto) (1.40-6.50) K/uL Lymph # (Auto) (1.20-3.40) K/uL Mellette # (Auto) (0.11-0.59) K/uL Eos # (Auto) (0.00-0.50) K/uL Baso # (Auto) (0.00-0.20) K/uL Immature Gran # (Auto) (0.01-0.20) K/uL Polychromasia Hypochromasia Tear Drop Cells Schistocytes Sodium (136-145) mmol/L Potassium (3.5-5.1) mmol/L Chloride (98-107) mmol/L Carbon Dioxide (21-32) mmol/L Anion Gap (3-11) BUN (6-23) mg/dl Creatinine (0.6-1.2) mg/dl Est Cr Clr Drug Dosing ml/min Est GFR ( Amer) ml/min Est GFR (Non-Af Amer) ml/min BUN/Creatinine Ratio (10-20) Glucose (70-99(Fasting)) mg/dl POC Glucose 289 H 200 H (70-99) mg/dl Calcium (8.6-10.3) mg/dl Phosphorus (2.5-4.9) mg/dl Magnesium (1.7-2.4) mg/dl Albumin (3.4-5.0) gm/dl Vitamin B12 (180-914) pg/ml Diagnostic Findings Chest X-Ray 02/11/24 07:00 XR chest 1V portable HISTORY: Right pleural effusion and right basilar densities. Follow-up. Shortness of breath. COMPARISON: Chest 02/09/2024. FINDINGS: No pneumothorax. The heart remains top normal in size. Mild chronic interstitial thickening persists. The left lung is clear. Focal right middle lobe density persists. Calcified granuloma within the right lower lobe. Trace right pleural effusion has improved. No evidence for pulmonary edema. Calcifications within the aortic knob. No acute fractures. Emphysema again noted. IMPRESSION: 1. Focal right middle lobe density persists and favors a pneumonia or scarring. 2. Trace right pleural effusion has improved. 3. Emphysema. ACT 112: Negative or not required by law. Electronically signed by: Wicho Gutierrez M.D. 02/11/2024 7:02 AM PG Care Time/CCT Total # of Minutes Spent Total Time Spent with Patient: Total time spent is greater than 50% in coordination of care (as documented) at patient's floor/unit and/or counseling patient: Coding Level of Care Code 39955 SUB INP/OBS CARE 350MIN Diagnoses Acute on chronic respiratory failure with hypoxia and hypercapnia J96.21; J96.22 Acute UTI (urinary tract infection) N39.0 Acute confusion R41.0 CHF (congestive heart failure) I50.9 Heart failure chronicity: acute on chronic Heart failure type: unspecified Afib I48.91 Pleural effusion J90 Pneumonia J18.9 Laterality: right Lung location: lower lobe of lung Pneumonia type: due to unspecified organism Metabolic encephalopathy G93.41 Lower extremity edema R60.0 B12 deficiency E53.8 Anemia D64.9 Anemia type: unspecified type Current smoker F17.200 Diabetes type 2, uncontrolled E11.65 Glycemic state: with hyperglycemia Chest pain R07.9 Chest pain type: unspecified (4) CHF (congestive heart failure) Heart failure chronicity: acute on chronic Heart failure type: unspecified Qualified Code(s): I50.9 - Heart failure, unspecified (7) Pneumonia Laterality: right Lung location: lower lobe of lung Pneumonia type: due to unspecified organism Qualified Code(s): J18.9 - Pneumonia, unspecified organism (11) Anemia Anemia type: unspecified type Qualified Code(s): D64.9 - Anemia, unspecified (13) Diabetes type 2, uncontrolled Glycemic state: with hyperglycemia Qualified Code(s): E11.65 - Type 2 diabetes mellitus with hyperglycemia (14) Chest pain Chest pain type: unspecified Qualified Code(s): R07.9 - Chest pain, unspecified
[2024-02-11] MEDS: LANTUS PER UNIT CHARGE SQ ONE (08:34)
[2024-02-11] MEDS: CYANOCOBALAMIN (B-12) 500 MCG TABLET PO SCH (09:04)
[2024-02-11] MEDS: IRON SUCROSE 300 MG in SODIUM CHLORIDE 0.9% 250 ML IV ONE (09:05)
--- NOTE | 2024-02-11 09:17 | Pharmacy Report ---
Pharmacy Glycemic Short Note 2 - Date of Service February 11, 2024 - Glycemic Short BSG Results (Last 24 hours): 02/10/24 02/10/24 02/10/24 05:23 12:58 16:09 Glucose 200 H POC Glucose 200 H 289 H 02/10/24 02/10/24 02/10/24 20:53 20:55 21:33 Glucose POC Glucose 314 H* 325 H* 335 H* 02/11/24 02/11/24 05:35 07:31 Glucose 281 H POC Glucose 285 H OUTPATIENT ANTIDIABETIC REGIMEN: * Metformin 1 g PO BIDM * Glipizide 5 mg PO daily HbA1c: 8.9% (02/10/24) ASSESSMENT: * HERNAN is a 74 year old female well known to pharmacy glycemic service due to numerous past consultations * Patient presented to ED via EMS due to vomiting and shortness of breath * Currently receiving methylprednisolone 40 mg IV q8h for presumed COPD exacerbation * Per pulmonary note: steroids can likely be tapered fairly rapidly (will monitor) * Steroids subsequently changed to prednisone 20 mg PO daily (first dose on 02/12/24) * Cefepime empirically for UTI * Historically, patient requires aggressive carb coverage and basal insulin while receiving steroids PLAN FOR INPATIENT GLYCEMIC CONTROL: * Hold outpatient oral diabetes medications * Basal insulin * Lantus 40 units SQ daily * Reassess in AM w/ change to prednisone * Bolus insulin * NovoLog per scale ACHS or Q6hrs while NPO * Goal Range: Low 110 mg/dL - High 140 mg/dL * Correction Factor: 15 mg/dL/unit * Nutritional / Prandial insulin per carb ratio of 1 unit per 4 grams CHO consumed
--- NOTE | 2024-02-11 09:46 | Pulmonology Progress Note ---
Date of Service February 11, 2024 Assessment & Plan (1) COPD with acute exacerbation: (2) Acute on chronic respiratory failure with hypoxia and hypercapnia: (3) Pleural effusion: Plan Impression: 74-year-old female with advanced COPD and ongoing tobacco exposure. She continues to smoke at the rate of half pack per day. She was admitted with altered mental status which appears to be clearing. Her hypercarbia is at her baseline. She feels like her respiratory status is back to normal. Recommendations: 1. COPD: Continue Perforomist, budesonide, and Incruse as well as as needed DuoNebs. Transition to oral prednisone at 20 mg a day for 5 days. 2. Hypoxemic hypercarbic respiratory failure: The patient has AVAPS at home. Continue therapy. 3. Pleural effusion: Too small to intervene on. Continue diuresis and management of the patient's other medical comorbidities per primary admitting service. Patient appears to be back at her relatively compromised for pulmonary baseline. Pulmonary will sign off at this point time. Feel free to contact us with questions or concerns Admission and Anticipated Discharge Date Admission Date: February 10, 2024 Subjective Patient seen and examined. MR reviewed. The patient is currently awake and alert. She states she used BiPAP last night. She is back to her baseline oxygen requirement. She feels like her breathing is at her baseline. She is not coughing or expectorating phlegm. No wheezing. She has not really been out of bed as she states she has been ordered bedrest Review of Systems 2 Review of Systems: All systems reviewed & are unremarkable except as noted in Subjective Physical Exam 2 Constitutional: WD/WN, vitals as above Eyes: EOM intact bilaterally; no conjunctival abnormality ENMT: external ear and nose normal, oropharynx normal Neck: trachea midline, no thyromegaly normal visual inspection Respiratory: no respiratory distress, no labored breathing, no cough and not tachypneic Auscultation: + diminished lung sounds and + rhonchi Cardiovascular: RRR, no murmur, no edema Gastrointestinal (Abdomen): Inspection/Auscultation: abdomen normal to inspection; abdomen not distended Musculoskeletal: no cyanosis or clubbing, extremities motor strength 5/5 Skin: no rashes, warm and dry Neurologic: moves all extremities and awake Psychiatric: Orientation: alert, oriented to person and cooperative Results & Data Results & Data Vital Signs (Past 12 Hours) Vital Signs Temp Pulse Pulse Resp BP Pulse Ox O2 Del Method 02/11/24 07:47 36.3 C L 65 22 146/92 H 98 BiPAP 02/11/24 07:18 69 95 Nasal Cannula 02/11/24 03:12 69 29 H 90 02/11/24 03:05 36.5 C 68 24 133/71 92 CPAP 02/10/24 22:58 36.6 C 67 21 135/69 93 CPAP 02/10/24 22:21 88 26 H 89 L 02/10/24 21:55 71 O2 Flow Rate FiO2 02/11/24 07:47 02/11/24 07:18 5 02/11/24 03:12 60 02/11/24 03:05 02/10/24 22:58 02/10/24 22:21 40 02/10/24 21:55 Laboratory Results 02/11/24 05:35 02/11/24 05:35 PG Care Time/CCT Total # of Minutes Spent Total Time Spent with Patient: Total time spent is greater than 50% in coordination of care (as documented) at patient's floor/unit and/or counseling patient: Coding Level of Care Code 20416 SUB INP/OBS CARE 2/35MIN Diagnoses COPD with acute exacerbation J44.1 Acute on chronic respiratory failure with hypoxia and hypercapnia J96.21; J96.22 Pleural effusion J90
--- NOTE | 2024-02-11 13:24 | Communication Note ---
Date of Service: February 11, 2024 CDS Query Hypertension with CKD stage 3 and acute on chronic diastolic CHF Improving volume status/breathing w/ continued diuretics -BP controlled at present time, renal function acceptable on continued diuretics - continue to avoid nephrotoxins/renal dose meds as able monitoring weights/outpt
--- NOTE | 2024-02-11 15:47 | Electrocardiogram Report ---
Test Reason : Blood Pressure : / mmHG Vent. Rate : 078 BPM Atrial Rate : 078 BPM P-R Int : 164 ms QRS Dur : 084 ms QT Int : 404 ms P-R-T Axes : 069 033 072 degrees QTc Int : 460 ms Poor data quality, interpretation may be adversely affected Sinus rhythm Confirmed by Lion Diego ([id number] on 02/11/2024 3:47:27 PM Referred By: REFERRED SELF Confirmed By:Yvan Diego
[2024-02-11] MEDS: AMOXICILLIN/CLAVULANATE 875 MG TAB PO SCH (20:24)
[2024-02-12 06:39] LABS: Basophils # (auto) 0.01 K/uL (0.00-0.20); Basophils % (auto) 0.1 %; Hematocrit (blood only) 29.5 % (37.0-47.0); Hemoglobin 9.1 g/dl (12.0-16.0); Immature Granulocytes # (auto) 0.09 K/uL (0.01-0.20); Immature Granulocytes % (auto) 0.7 %; Lymphocytes # (auto) 0.54 K/uL (1.20-3.40); Lymphocytes % (auto) 4.2 %; Mean Corpuscular Hemoglobin 26.3 pg (25.0-34.0); Mean Corpuscular Hgb Conc 30.8 g/dL (32.0-36.0); Mean Corpuscular Volume 85.3 fL (80.0-100.0); Mean Platelet Volume 10.1 fL (9.4-12.4); Monocytes # (auto) 0.65 K/uL (0.11-0.59); Monocytes % (auto) 5.1 %; Neutrophils # (auto) 11.56 K/uL (1.40-6.50); Neutrophils % (auto) 89.9 %; Platelet Count 439 K/uL (130-400); RDW Coefficient of Variation 17.3 % (11.5-14.5); RDW Standard Deviation 54.1 fL (36.4-46.3); Red Blood Count 3.46 M/uL (4.20-5.40); White Blood Count 12.85 K/ul (4.8-10.8)
[2024-02-12 06:59] LABS: Albumin Level 3.2 gm/dl (3.4-5.0); BUN Creatinine Ratio 30.4 (10-20); Calcium 8.7 mg/dl (8.6-10.3); Est GFR (African American) 72.1 ml/min; Est GFR (Non-African American) 62.2 ml/min; Magnesium 1.7 mg/dl (1.7-2.4); Potassium 4.4 mmol/L (3.5-5.1)
[2024-02-12] MEDS: predniSONE 20 MG TAB PO SCH (08:11)
--- NOTE | 2024-02-12 08:12 | Hospitalist Progress Note ---
Date of Service February 12, 2024 Assessment & Plan (1) Acute on chronic respiratory failure with hypoxia and hypercapnia: Plan: Acute on chronic respiratory failure with hypoxia and hypercapnia/right middle and right lower lobe pneumonia/moderate right pleural effusion- CTA of chest: Moderate sized right pleural effusion. Right middle lobe infiltrate likely infectious or inflammatory etiology Cefepime 2gm IV BID, Vancomycin MRSA swab negative, urine cx w/ gram negative bacilli and will DISCONTINUE vanco BiPAP HS, compliance encouraged at dc w/ her Trelegy as arranged last admission IV steroids transitioning to prednisone 20mg daily for total 5 days Lasix increased to 20mg IV BID but increased to 40mg IV BID w/ net negative 1.1L overnight and BUN/Cr 28/1.16 and will continue such/aim for net negative Continue nebulizers, pulmonary toilet. Perfomomist/budeosonide nebs -- consider budesonide nebs/hypertonic saline continue at discharge Sputum cx as able (was not able to collect last night but reports productive yellow sputum) Pulm on consult, appreciate recs/assistance Smoking cessation encouraged Supplemental O2 to maintain sats -- currently on 5L NC Transitioned to Augmentin for urinary coverage as above as well as possible aspiration pneumonia coverage given CXR 02/11 Net negative 2.9L past 24 hours, cumulative 4.4L. Weight was 70kg on admission, presently 67kg (Believe dry weight likely closer to 65-67kg based on prior admissions) --Will change to Lasix 40mg IV once daily given stable renal function for today, consider changing back to 40mg PO daily for tomorrow, 02/12 Suspect WBC elevation 2nd to IV steroids, has been afebrile. Transitioned to prednisone 20mg PO daily and will monitor, plan to continue through 02/15 Supplemental O2 to maintain sats to prevent over correction Will need encouraged compliance w/ BiPAP -- report indicating use <1 hour 1 day (<1 minute) -- will call for discussion as well -- he reports he has encouraged increased use but Daniella isn't the most compliant Switched to Augmentin to cover for urine as well as any possible aspiration PNA and plan for 7 day course (complete 02/15) (2) CHF (congestive heart failure): Plan: CHF exacerbation- patient had her lasix increased to 40mg daily during discharge in early November, believes she had only been taking 20mg PO daily per her account s/p 20mg IV lasix in ER on admission (with 25g IV albumin) Increased lasix to 40mg IV BID on 02/09 and had net negative 2.9L as above and closer to dry weight CXR w/ improvement in pleural effusion on repeat Lasix decreased to ONCE daily for 02/11, plan to transition back to 40mg PO for am pending output/weights but encourage compliance w/ increased 40mg dose as she had been taking lower dose (and suspect high salt load at home) Monitor weights, UOP Encourage daily monitoring of weights at home AHA diet, low salt. Fluid restriciton BMP in AM (3) Acute UTI (urinary tract infection): Plan: +UA on admission, pederson placed, given lasix Hx E. coli UTI on 01/15/2024, with resistance to fluoroquinolones.History of Enterococcus faecalis UTI on 11/21/2023, with sensitivity to vancomycin, daptomycin and ampicillin Urine cx GNB on preliminary, discontinued vancomycin Urine cx finalized with Ecoli, resistant to FLQ --> Switched to Augmentin to cover for possible aspiration pneumonia as well. Planning to complete total 7 day course (end date 02/15) Will plan to dc pederson in AM given continued lasix use for above (4) Acute confusion: Plan: Resolved at present 02/11 Likely combination of noncompliance w/ BipAP at home (in setting of oxycodone use for chronic back pain), possible aspiration pneumonia, UTI. Tx as outlined above (5) Afib: Plan: On Eliquis BID, prior + fecal occult testing and was held at discharge Hgb around prior, remains on eliquis. Repeat fecal occult/consider holding if remaining positive (had moved bowels, not collected by nursing but denied any raul bleeding -- await fecal occul testing) Remains on PPI, increased to BID in meantime continue metoprolol BID telemetry monitoring keep K/mag replete -- ordering 2gm IV mag to keep closer to 2 on 02/11 Monitor CBC (6) Pleural effusion: Plan: as above, diuresis as outlined CXR w/ improvement w/ increased diuretics and suspect was not taking the increased lasix as she should be f/u cxr in AM (7) Pneumonia: Plan: possible aspiration pneumonia suspected abx as above, MRSA nares negative, vanco dc'd for now (monitor urine cx, now w/ gram negative rods) switched to augmentin as blood cultures remained NGTD x 48hrs (8) Metabolic encephalopathy: Plan: improving w/ tx as above, resolved at prsent time (9) Lower extremity edema: Plan: as above, suspect aspect of volume overload. diuretics as outlined Improving on repeat exam 02/11 and will monitor w/ continued diuresis as outlined (10) B12 deficiency: Plan: prior low at 107 in October with myself. Provided IM x 3 doses b12 on repeat only 285 , while improved compared to prior, placed on PO supplementation daily and would continue at dc (11) Anemia: Plan: hgb appearing around baseline. as above, eliquis prior held. consideration for doppler LE if needed if had been off such. on currently while inpatient, fecal occult pending B12 borderline, PO ordered as below and given IM last admission Iron panel w/ iron 24, trans % sat 10, ferritin only 54 --> will order Venofer IV x 1 for 02/10, consider repeating for AM 02/11 Continue PPI BID in meantime Hgb stable w/ continued diueresis Monitor CBC (12) Current smoker: Plan: Continue to encourage smoking cessation, 1/2ppd reported (13) Diabetes type 2, uncontrolled: Plan: BSG elevated 335s overnight. suspect this is when she reported her chest pain and likely from IV steroids. A1c last 8.9 Pharmacy consulted for glycemic management , appreciate assistance transitioned to prednisone 20mg PO for AM and hopefully that will help as well (14) Chest pain: Plan: reported overnight 02/09-02/10. ?related to back pain. NSR on telemetry. EKG w/ PVCs No CP reported to myself, breathing much improved BSG control as outlined above EKG w/ CP Had been NSR on monitor, did have 14 beat run vtach around lunch time 02/11, asymptomatic and will continue to monitor on tele. K 4.4, mag 1.7 - will order 2gm IV mag to keep closer to 2 Will continue to monitor on telemetry Other chronic problems: Hypertension with CKD stage 3 and acute on chronic diastolic CHF Chronic, stable/improved Tx as outlined Monitor AAA- 4.3 cm noted on CTA abdomen pelvis Can be followed serially Plan continued inpatient stay, hopefully able to dc in next 24-48 hours consider repeat ambulatory testing to see about oxygen needs prior to dc Admission and Anticipated Discharge Date Admission Date: February 10, 2024 Supervising Physician Co-Signing Physician Notes The patient was not seen by me. The chart was reviewed. Case discussed with [place] Haley. Agree with assessment and plan Subjective Evaluated this morning, sitting up in the chair. Adamant about going home today. Discussed BipAP use - she reports using it as well while here and sleeping. Discussed switching to once daily IV lasix for today. She is wanting to go home , doesn't like the food here. Suspect increased salt at home. No CP/SOB, breathing felt to be back to baseline. Per nursing though, ripped off her BiPAP last night, didn't wear this morning. Her SpO2 dropped to 70-80s when up w/ ambulation. Do not feel safe to go home at this point though but will discuss w/ her and supervising provider. Will need lengthy instructions typed out regarding medications at discharge. Questions/concerns addressed at this time, about to work with therapy (who did work with her yesterday per [place] and did fairly well). Did have 14 beat run vtach this morning, asymptomatic. Wanting to go home but discussed w/ and planning to keep. If chooses to leave would be AMA. Physical Exam Physical Exam: General: 74yo chronically ill female sitting up in chair, about to work with therapy, appears MUCH improved today, less confused HEENT: head atraumatic, normocephalic, mmm, trachea midline Resp: +moist cough, no tachypnea, improvement in air entry bilaterally, almost completely resolved wheezing, +decreased rhonchi, on 5L NC CV: RRR, no significant m/r/g, +decreased LE edema bilaterally, pulses palpable, calves nontender GI: +BS, soft/NT : pederson draining clear yellow urine MSK/Neuro: nonfocal, no slurred speech/facial droop, able to follow commands , generalized weakness much improved, chronic back pain at baseline Psych: AOx3, cooperative with exam Results & Data Results & Data Vital Signs (Past 12 Hours) Vital Signs Temp Pulse Pulse Resp BP Pulse Ox O2 Del Method 02/12/24 07:32 36.6 C 80 20 150/67 H 98 Nebulizer 02/12/24 07:20 61 02/12/24 07:17 70 17 95 Nasal Cannula 02/12/24 02:51 36.3 C L 68 18 169/71 H 95 Nasal Cannula 02/12/24 00:03 61 02/11/24 22:57 Nasal Cannula 02/11/24 22:51 36.6 C 59 L 26 H 152/71 H 96 CPAP 02/11/24 22:45 65 25 H 96 O2 Flow Rate FiO2 02/12/24 07:32 02/12/24 07:20 02/12/24 07:17 5 02/12/24 02:51 02/12/24 00:03 02/11/24 22:57 5 02/11/24 22:51 02/11/24 22:45 60 Laboratory Results 02/12/24 02/12/24 02/12/24 Range/Units 11:11 07:42 06:00 WBC 12.85 H (4.8-10.8) K/ul RBC 3.46 L (4.20-5.40) M/uL Hgb 9.1 L (12.0-16.0) g/dl Hct 29.5 L (37.0-47.0) % MCV 85.3 (80.0-100.0) fL MCH 26.3 (25.0-34.0) pg MCHC 30.8 L (32.0-36.0) g/dL RDW Std Deviation 54.1 H (36.4-46.3) fL RDW Coeff of Dorcas 17.3 H (11.5-14.5) % Plt Count 439 H (130-400) K/uL MPV 10.1 (9.4-12.4) fL Immature Gran % (Auto) 0.7 % Neut % (Auto) 89.9 % Lymph % (Auto) 4.2 % Whitfield % (Auto) 5.1 % Eos % (Auto) 0.0 % Baso % (Auto) 0.1 % Neut # (Auto) 11.56 H (1.40-6.50) K/uL Lymph # (Auto) 0.54 L (1.20-3.40) K/uL Whitfield # (Auto) 0.65 H (0.11-0.59) K/uL Eos # (Auto) 0.00 (0.00-0.50) K/uL Baso # (Auto) 0.01 (0.00-0.20) K/uL Immature Gran # (Auto) 0.09 (0.01-0.20) K/uL Sodium 140 (136-145) mmol/L Potassium 4.4 (3.5-5.1) mmol/L Chloride 99 (98-107) mmol/L Carbon Dioxide 35 H (21-32) mmol/L Anion Gap 6 (3-11) BUN 28 H (6-23) mg/dl Creatinine 0.92 (0.6-1.2) mg/dl Est Cr Clr Drug Dosing 52.0 ml/min Est GFR ( Amer) 72.1 ml/min Est GFR (Non-Af Amer) 62.2 ml/min BUN/Creatinine Ratio 30.4 H (10-20) Glucose 249 H (70-99(Fasting)) mg/dl POC Glucose 189 H 255 H (70-99) mg/dl Calcium 8.7 (8.6-10.3) mg/dl Phosphorus 4.0 (2.5-4.9) mg/dl Magnesium 1.7 (1.7-2.4) mg/dl Albumin 3.2 L (3.4-5.0) gm/dl 02/11/24 02/11/24 Range/Units 20:12 16:27 WBC (4.8-10.8) K/ul RBC (4.20-5.40) M/uL Hgb (12.0-16.0) g/dl Hct (37.0-47.0) % MCV (80.0-100.0) fL MCH (25.0-34.0) pg MCHC (32.0-36.0) g/dL RDW Std Deviation (36.4-46.3) fL RDW Coeff of Dorcas (11.5-14.5) % Plt Count (130-400) K/uL MPV (9.4-12.4) fL Immature Gran % (Auto) % Neut % (Auto) % Lymph % (Auto) % Whitfield % (Auto) % Eos % (Auto) % Baso % (Auto) % Neut # (Auto) (1.40-6.50) K/uL Lymph # (Auto) (1.20-3.40) K/uL Whitfield # (Auto) (0.11-0.59) K/uL Eos # (Auto) (0.00-0.50) K/uL Baso # (Auto) (0.00-0.20) K/uL Immature Gran # (Auto) (0.01-0.20) K/uL Sodium (136-145) mmol/L Potassium (3.5-5.1) mmol/L Chloride (98-107) mmol/L Carbon Dioxide (21-32) mmol/L Anion Gap (3-11) BUN (6-23) mg/dl Creatinine (0.6-1.2) mg/dl Est Cr Clr Drug Dosing ml/min Est GFR ( Amer) ml/min Est GFR (Non-Af Amer) ml/min BUN/Creatinine Ratio (10-20) Glucose (70-99(Fasting)) mg/dl POC Glucose 180 H 239 H (70-99) mg/dl Calcium (8.6-10.3) mg/dl Phosphorus (2.5-4.9) mg/dl Magnesium (1.7-2.4) mg/dl Albumin (3.4-5.0) gm/dl PG Care Time/CCT Total # of Minutes Spent Total Time Spent with Patient: Total time spent is greater than 50% in coordination of care (as documented) at patient's floor/unit and/or counseling patient: Coding Level of Care Code 82009 SUB INP/OBS CARE 3/50MIN Diagnoses Acute on chronic respiratory failure with hypoxia and hypercapnia J96.21; J96 .22 CHF (congestive heart failure) I50.9 Heart failure chronicity: acute on chronic Heart failure type: unspecified Acute UTI (urinary tract infection) N39.0 Acute confusion R41.0 Afib I48.91 Pleural effusion J90 Pneumonia J18.9 Laterality: right Lung location: lower lobe of lung Pneumonia type: due to unspecified organism Metabolic encephalopathy G93.41 Lower extremity edema R60.0 B12 deficiency E53.8 Anemia D64.9 Anemia type: unspecified type Current smoker F17.200 Diabetes type 2, uncontrolled E11.65 Glycemic state: with hyperglycemia Chest pain R07.9 Chest pain type: unspecified (2) CHF (congestive heart failure) Heart failure chronicity: acute on chronic Heart failure type: unspecified Qualified Code(s): I50.9 - Heart failure, unspecified (7) Pneumonia Laterality: right Lung location: lower lobe of lung Pneumonia type: due to unspecified organism Qualified Code(s): J18.9 - Pneumonia, unspecified organism (11) Anemia Anemia type: unspecified type Qualified Code(s): D64.9 - Anemia, unspecified (13) Diabetes type 2, uncontrolled Glycemic state: with hyperglycemia Qualified Code(s): E11.65 - Type 2 diabetes mellitus with hyperglycemia (14) Chest pain Chest pain type: unspecified Qualified Code(s): R07.9 - Chest pain, unspecified
[2024-02-12] MEDS: FUROSEMIDE 40 MG/4 ML VIAL IV ONE (08:59)
[2024-02-12] MEDS ORDERED: FUROSEMIDE INJ 20 MG/2 ML VIAL IV SCH (09:00)
[2024-02-12] MEDS: FUROSEMIDE 40 MG/4 ML VIAL IV SCH (09:02)
[2024-02-12] MEDS: LANTUS PER UNIT CHARGE SC SCH (09:02)
[2024-02-12] MEDS: IRON SUCROSE 300 MG in SODIUM CHLORIDE 0.9% 250 ML IV ONE (09:06)
--- NOTE | 2024-02-12 09:24 | Pulmonology Progress Note ---
Date of Service February 12, 2024 Assessment & Plan (1) COPD with acute exacerbation: (2) Acute on chronic respiratory failure with hypoxia and hypercapnia: (3) Pleural effusion: Plan Impression: 74-year-old female with advanced COPD and ongoing tobacco exposure. She continues to smoke at the rate of half pack per day. She was admitted with altered mental status which appears to be clearing. Her hypercarbia is at her baseline. She feels like her respiratory status is back to normal. Recommendations: 1. COPD: Continue Perforomist, budesonide, and Incruse as well as as needed DuoNebs. Complete 5 day course of prednisone. Appears to be back to her baseline at this time. 2. Hypoxemic hypercarbic respiratory failure: The patient has AVAPS at home. Continue therapy. 3. Pleural effusion: Too small to intervene on. Continue diuresis and management of the patient's other medical comorbidities per primary admitting service. Thank you for allowing us to participate in the care of this pleasant patient. Pulmonary medicine will sign off at this time. She is welcome to follow-up with her primary tape coater at the time of discharge. Admission and Anticipated Discharge Date Admission Date: February 10, 2024 Supervising Physician Co-Signing Physician Notes Patient seen and examined. EMR reviewed. Discussed with SARY and agree with assessment plan as noted. Patient is quite adamant about going home. She is at or below her oxygen requirement. She appears stable for discharge from a pulmonary perspective. She can follow-up with her outpatient tape coater in [place]. Continue nocturnal ASV. Pulmonary signing off. Feel free to contact us with questions or concerns Subjective Patient seen and evaluated at bedside. She reports feeling much better at this time. She offers no complaints. She is anxious to be discharged soon. Review of Systems Review of Systems: Please refer to admission H&P. No additions or deletions Physical Exam Physical Exam: VITAL SIGNS - Vital signs and nursing notes were reviewed. GENERAL - 74-year-old female appearing her stated age who is in no acute distress. Communicates well with provider and answers questions appropriately. LUNGS - Auscultation reveals mild diffuse wheezing. No rales or rhonchi appreciated. CARDIAC - RRR with S1/S2. No murmur, rubs, or gallops appreciated. PSYCH - A&Ox3 and cooperates fully with examiner. Pt is very pleasant and interacts well with examiner. Results & Data Results & Data Vital Signs (Past 12 Hours) Vital Signs Temp Pulse Pulse Resp BP Pulse Ox O2 Del Method 02/12/24 07:32 36.6 C 80 20 150/67 H 98 Nebulizer 02/12/24 07:20 61 02/12/24 07:17 70 17 95 Nasal Cannula 02/12/24 02:51 36.3 C L 68 18 169/71 H 95 Nasal Cannula 02/12/24 00:03 61 02/11/24 22:57 Nasal Cannula 02/11/24 22:51 36.6 C 59 L 26 H 152/71 H 96 CPAP 02/11/24 22:45 65 25 H 96 O2 Flow Rate FiO2 02/12/24 07:32 02/12/24 07:20 02/12/24 07:17 5 02/12/24 02:51 02/12/24 00:03 02/11/24 22:57 5 02/11/24 22:51 02/11/24 22:45 60 PG Care Time/CCT Total # of Minutes Spent Total Time Spent with Patient: Total time spent is greater than 50% in coordination of care (as documented) at patient's floor/unit and/or counseling patient: Coding Level of Care Code 83526 SUB INP/OBS CARE 2/35MIN Diagnoses COPD with acute exacerbation J44.1 Acute on chronic respiratory failure with hypoxia and hypercapnia J96.21; J96.22 Pleural effusion J90
--- NOTE | 2024-02-12 12:52 | Pharmacy Report ---
Pharmacy Glycemic Short Note 2 - Date of Service February 12, 2024 - Glycemic Short BSG Results (Last 24 hours): 02/11/24 02/11/24 02/12/24 16:27 20:12 06:00 Glucose 249 H POC Glucose 239 H 180 H 02/12/24 02/12/24 07:42 11:11 Glucose POC Glucose 255 H 189 H OUTPATIENT ANTIDIABETIC REGIMEN: * Metformin 1 g PO BIDM * Glipizide 5 mg PO daily HbA1c: 8.9% (02/10/24) ASSESSMENT: 02/12/24: * Daniella received a total of 87 units of SQ insulin yesterday * 40 units basal + 47 units bolus (received two doses of solu medrol 40 mg during this time) * Solu medrol IV has been transitioned to prednisone 20 mg daily starting today * Fasting BSG remains elevated, 255 mg/dL. Suspect basal needs will decrease with change in steroids. Will trial Lantus 35 units daily which has worked well for her in the past when on once daily prednisone. * Persistent post prandial BSG elevation yesterday. Again, suspect improvement due to change in steroids. Will continue current novolog CF and CR for now. Lunch BSG acceptable at 189 mg/dL 02/11/24: * HERNAN is a 74 year old female well known to pharmacy glycemic service due to numerous past consultations * Patient presented to ED via EMS due to vomiting and shortness of breath * Currently receiving methylprednisolone 40 mg IV q8h for presumed COPD exacerbation * Per pulmonary note: steroids can likely be tapered fairly rapidly (will monitor) * Steroids subsequently changed to prednisone 20 mg PO daily (first dose on 02/12/24) * Cefepime empirically for UTI * Historically, patient requires aggressive carb coverage and basal insulin while receiving steroids PLAN FOR INPATIENT GLYCEMIC CONTROL: * Hold outpatient oral diabetes medications * Basal insulin * Lantus 35 units SQ daily * Bolus insulin * NovoLog per scale ACHS or Q6hrs while NPO * Goal Range: Low 110 mg/dL - High 140 mg/dL * Correction Factor: 15 mg/dL/unit * Nutritional / Prandial insulin per carb ratio of 1 unit per 4 grams CHO co nsumed
[2024-02-12] MEDS: MAGNESIUM SULFATE / D5W 1 GM/100 ML BAG IV SCH (13:03)
[2024-02-13] MEDS: oxyCODONE HCL IR 5 MG TAB (IMMEDIATE RELEASE) PO PRN (05:37)
[2024-02-13 06:48] LABS: Basophils # (auto) 0.02 K/uL (0.00-0.20); Basophils % (auto) 0.2 %; Eosinophils # (auto) 0.02 K/uL (0.00-0.50); Eosinophils % (auto) 0.2 %; Hematocrit (blood only) 33.4 % (37.0-47.0); Hemoglobin 9.9 g/dl (12.0-16.0); Immature Granulocytes # (auto) 0.19 K/uL (0.01-0.20); Immature Granulocytes % (auto) 1.9 %; Lymphocytes # (auto) 1.12 K/uL (1.20-3.40); Lymphocytes % (auto) 11.2 %; Mean Corpuscular Hemoglobin 25.8 pg (25.0-34.0); Mean Corpuscular Hgb Conc 29.6 g/dL (32.0-36.0); Mean Platelet Volume 9.6 fL (9.4-12.4); Monocytes # (auto) 0.89 K/uL (0.11-0.59); Monocytes % (auto) 8.9 %; Neutrophils # (auto) 7.76 K/uL (1.40-6.50); Neutrophils % (auto) 77.6 %; Nucleated RBC # (auto) 0.02 K/uL (0.00-0.12); Nucleated RBC % (auto) 0.2 %; Platelet Count 437 K/uL (130-400); RDW Coefficient of Variation 17.7 % (11.5-14.5); RDW Standard Deviation 55.8 fL (36.4-46.3); Red Blood Count 3.84 M/uL (4.20-5.40)
[2024-02-13 06:59] LABS: Albumin Level 3.3 gm/dl (3.4-5.0); BUN Creatinine Ratio 22.9 (10-20); Calcium 8.7 mg/dl (8.6-10.3); Creatinine Clr Calc Pharmacy 41.8 ml/min; Est GFR (African American) 61.4 ml/min; Magnesium 2.1 mg/dl (1.7-2.4); Potassium 4.1 mmol/L (3.5-5.1)
--- NOTE | 2024-02-13 08:15 | Hospitalist Progress Note ---
Date of Service February 13, 2024 Assessment & Plan (1) Acute on chronic respiratory failure with hypoxia and hypercapnia: Plan: Acute on chronic respiratory failure with hypoxia and hypercapnia/right middle and right lower lobe pneumonia/moderate right pleural effusion- CTA of chest: Moderate sized right pleural effusion. Right middle lobe infiltrate likely infectious or inflammatory etiology Cefepime 2gm IV BID, Vancomycin MRSA swab negative, urine cx w/ gram negative bacilli and will DISCONTINUE vanco BiPAP HS, compliance encouraged at dc w/ her Trelegy as arranged last admission IV steroids transitioning to prednisone 20mg daily for total 5 days Lasix increased to 20mg IV BID but increased to 40mg IV BID w/ net negative 1.1L overnight and BUN/Cr 28/1.16 and will continue such/aim for net negative Continue nebulizers, pulmonary toilet. Perfomomist/budeosonide nebs -- consider budesonide nebs/hypertonic saline continue at discharge Sputum cx as able (was not able to collect last night but reports productive yellow sputum) Pulm on consult, appreciate recs/assistance Smoking cessation encouraged Supplemental O2 to maintain sats -- currently on 5L NC Transitioned to Augmentin for urinary coverage as above as well as possible aspiration pneumonia coverage given CXR 02/11 Net negative 2.9L past 24 hours, cumulative 4.4L. Weight was 70kg on admission, presently 67kg (Believe dry weight likely closer to 65-67kg based on prior admissions) --Will change to Lasix 40mg IV once daily given stable renal function for today, consider changing back to 40mg PO daily for tomorrow, 02/12 Suspect WBC elevation 2nd to IV steroids, has been afebrile. Transitioned to prednisone 20mg PO daily and will monitor, plan to continue through 02/15 Supplemental O2 to maintain sats to prevent over correction Will need encouraged compliance w/ BiPAP -- report indicating use <1 hour 1 day (<1 minute) -- will call for discussion as well -- he reports he has encouraged increased use but Daniella isn't the most compliant Switched to Augmentin to cover for urine as well as any possible aspiration PNA and plan for 7 day course (complete 02/15) 02/12 95% on 3L, continued on lasix 40mg IV daily. Would recommend at LEAST 40mg PO daily at discharge if not twice daily as well as monitoring of her weights. Wt currently 64.5kg in system with stable renal function NEEDs to be using her BiPAP at home, smoking cessation encouraged (2) CHF (congestive heart failure): Plan: CHF exacerbation- patient had her lasix increased to 40mg daily during discharge in early November, believes she had only been taking 20mg PO daily per her account s/p 20mg IV lasix in ER on admission (with 25g IV albumin) Increased lasix to 40mg IV BID on 02/09 and had net negative 2.9L as above and closer to dry weight CXR w/ improvement in pleural effusion on repeat Lasix decreased to ONCE daily for 02/11, plan to transition back to 40mg PO for am pending output/weights but encourage compliance w/ increased 40mg dose as she had been taking lower dose (and suspect high salt load at home) Monitor weights, UOP Encourage daily monitoring of weights at home AHA diet, low salt. Fluid restriciton BMP in AM (3) Acute UTI (urinary tract infection): Plan: +UA on admission, pederson placed, given lasix Hx E. coli UTI on 01/15/2024, with resistance to fluoroquinolones.History of Enterococcus faecalis UTI on 11/21/2023, with sensitivity to vancomycin, daptomycin and ampicillin Urine cx GNB on preliminary, discontinued vancomycin Urine cx finalized with Ecoli, resistant to FLQ --> Switched to Augmentin to cover for possible aspiration pneumonia as well. Planning to complete total 7 day course (end date 02/15) Will plan to dc pederson in AM given continued lasix use for above (4) Acute confusion: Plan: Resolved at present 02/11 Likely combination of noncompliance w/ BipAP at home (in setting of oxycodone use for chronic back pain), possible aspiration pneumonia, UTI. Tx as outlined above (5) Afib: Plan: On Eliquis BID, prior + fecal occult testing and was held at discharge Hgb around prior, remains on eliquis. Repeat fecal occult/consider holding if remaining positive (had moved bowels, not collected by nursing but denied any raul bleeding -- await fecal occul testing) Remains on PPI, increased to BID in meantime continue metoprolol BID telemetry monitoring keep K/mag replete -- ordering 2gm IV mag to keep closer to 2 on 02/11 Monitor CBC (6) Pleural effusion: Plan: as above, diuresis as outlined CXR w/ improvement w/ increased diuretics and suspect was not taking the in creased lasix as she should be f/u cxr in AM (7) Pneumonia: Plan: possible aspiration pneumonia suspected abx as above, MRSA nares negative, vanco dc'd for now (monitor urine cx, now w/ gram negative rods) switched to augmentin as blood cultures remained NGTD x 48hrs (8) Metabolic encephalopathy: Plan: improving w/ tx as above, resolved at prsent time (9) Lower extremity edema: Plan: as above, suspect aspect of volume overload. diuretics as outlined Improving on repeat exam 02/11 and will monitor w/ continued diuresis as outlined (10) B12 deficiency: Plan: prior low at 107 in October with myself. Provided IM x 3 doses b12 on repeat only 285 , while improved compared to prior, placed on PO supplementation daily and would continue at dc (11) Anemia: Plan: hgb appearing around baseline. as above, eliquis prior held. consideration for doppler LE if needed if had been off such. on currently while inpatient, fecal occult pending B12 borderline, PO ordered as below and given IM last admission Iron panel w/ iron 24, trans % sat 10, ferritin only 54 --> will order Venofer IV x 1 for 02/10, consider repeating for AM 02/11 Continue PPI BID in meantime Hgb stable w/ continued diueresis Monitor CBC (12) Current smoker: Plan: Continue to encourage smoking cessation, 1/2ppd reported (13) Diabetes type 2, uncontrolled: Plan: BSG elevated 335s overnight. suspect this is when she reported her chest pain and likely from IV steroids. A1c last 8.9 Pharmacy consulted for glycemic management , appreciate assistance transitioned to prednisone 20mg PO for AM and hopefully that will help as well (14) Chest pain: Plan: reported overnight 02/09-02/10. ?related to back pain. NSR on telemetry. EKG w/ PVCs No CP reported to myself, breathing much improved BSG control as outlined above EKG w/ CP Had been NSR on monitor, did have 14 beat run vtach around lunch time 02/11, asymptomatic and will continue to monitor on tele. K 4.4, mag 1.7 - will order 2gm IV mag to keep closer to 2 Will continue to monitor on telemetry Other chronic problems: Hypertension with CKD stage 3 and acute on chronic diastolic CHF Chronic, stable/improved Tx as outlined Monitor AAA- 4.3 cm noted on CTA abdomen pelvis Can be followed serially Plan continued inpatient stay, hopefully able to dc in next 24-48 hours consider repeat ambulatory testing to see about oxygen needs prior to dc Admission and Anticipated Discharge Date Admission Date: February 10, 2024 Results & Data Results & Data Vital Signs (Past 12 Hours) Vital Signs Temp Pulse Pulse Resp BP Pulse Ox O2 Del Method 02/13/24 07:16 65 95 Nasal Cannula 02/13/24 07:07 36.6 C 72 22 159/81 H 97 CPAP 02/13/24 03:20 60 24 02/13/24 02:48 36.4 C L 60 26 H 169/78 H 98 CPAP 02/12/24 23:31 62 02/12/24 23:14 61 27 H 94 02/12/24 23:00 36.4 C L 57 L 27 H 163/79 H 98 CPAP O2 Flow Rate FiO2 02/13/24 07:16 3 02/13/24 07:07 02/13/24 03:20 50 02/13/24 02:48 02/12/24 23:31 02/12/24 23:14 50 02/12/24 23:00 Laboratory Results 02/13/24 02/13/24 02/12/24 Range/Units 07:13 05:45 20:06 WBC 10.00 (4.8-10.8) K/ul RBC 3.84 L (4.20-5.40) M/uL Hgb 9.9 L (12.0-16.0) g/dl Hct 33.4 L (37.0-47.0) % MCV 87.0 (80.0-100.0) fL MCH 25.8 (25.0-34.0) pg MCHC 29.6 L (32.0-36.0) g/dL RDW Std Deviation 55.8 H (36.4-46.3) fL RDW Coeff of Dorcas 17.7 H (11.5-14.5) % Plt Count 437 H (130-400) K/uL MPV 9.6 (9.4-12.4) fL Immature Gran % (Auto) 1.9 % Neut % (Auto) 77.6 % Lymph % (Auto) 11.2 % [place] % (Auto) 8.9 % Eos % (Auto) 0.2 % Baso % (Auto) 0.2 % Neut # (Auto) 7.76 H (1.40-6.50) K/uL Lymph # (Auto) 1.12 L (1.20-3.40) K/uL [place] # (Auto) 0.89 H (0.11-0.59) K/uL Eos # (Auto) 0.02 (0.00-0.50) K/uL Baso # (Auto) 0.02 (0.00-0.20) K/uL Immature Gran # (Auto) 0.19 (0.01-0.20) K/uL Absolute Nucleated RBC 0.02 (0.00-0.12) K/uL Nucleated RBC % (auto) 0.2 % Sodium 139 (136-145) mmol/L Potassium 4.1 (3.5-5.1) mmol/L Chloride 101 (98-107) mmol/L Carbon Dioxide 34 H (21-32) mmol/L Anion Gap 4 (3-11) BUN 24 H (6-23) mg/dl Creatinine 1.05 (0.6-1.2) mg/dl Est Cr Clr Drug Dosing 41.8 ml/min Est GFR ( Amer) 61.4 ml/min Est GFR (Non-Af Amer) 53.0 ml/min BUN/Creatinine Ratio 22.9 H (10-20) Glucose 211 H (70-99(Fasting)) mg/dl POC Glucose 236 H 210 H (70-99) mg/dl Calcium 8.7 (8.6-10.3) mg/dl Phosphorus 3.0 D (2.5-4.9) mg/dl Magnesium 2.1 (1.7-2.4) mg/dl Albumin 3.3 L (3.4-5.0) gm/dl 02/12/24 02/12/24 Range/Units 16:00 11:11 WBC (4.8-10.8) K/ul RBC (4.20-5.40) M/uL Hgb (12.0-16.0) g/dl Hct (37.0-47.0) % MCV (80.0-100.0) fL MCH (25.0-34.0) pg MCHC (32.0-36.0) g/dL RDW Std Deviation (36.4-46.3) fL RDW Coeff of Dorcas (11.5-14.5) % Plt Count (130-400) K/uL MPV (9.4-12.4) fL Immature Gran % (Auto) % Neut % (Auto) % Lymph % (Auto) % [place] % (Auto) % Eos % (Auto) % Baso % (Auto) % Neut # (Auto) (1.40-6.50) K/uL Lymph # (Auto) (1.20-3.40) K/uL [place] # (Auto) (0.11-0.59) K/uL Eos # (Auto) (0.00-0.50) K/uL Baso # (Auto) (0.00-0.20) K/uL Immature Gran # (Auto) (0.01-0.20) K/uL Absolute Nucleated RBC (0.00-0.12) K/uL Nucleated RBC % (auto) % Sodium (136-145) mmol/L Potassium (3.5-5.1) mmol/L Chloride (98-107) mmol/L Carbon Dioxide (21-32) mmol/L Anion Gap (3-11) BUN (6-23) mg/dl Creatinine (0.6-1.2) mg/dl Est Cr Clr Drug Dosing ml/min Est GFR ( Amer) ml/min Est GFR (Non-Af Amer) ml/min BUN/Creatinine Ratio (10-20) Glucose (70-99(Fasting)) mg/dl POC Glucose 200 H 189 H (70-99) mg/dl Calcium (8.6-10.3) mg/dl Phosphorus (2.5-4.9) mg/dl Magnesium (1.7-2.4) mg/dl Albumin (3.4-5.0) gm/dl PG Care Time/CCT Total # of Minutes Spent Total Time Spent with Patient: Total time spent is greater than 50% in coordination of care (as documented) at patient's floor/unit and/or counseling patient: Coding Diagnoses Acute on chronic respiratory failure with hypoxia and hypercapnia J96.21; J96.22 CHF (congestive heart failure) I50.9 Heart failure chronicity: acute on chronic Heart failure type: unspecified Acute UTI (urinary tract infection) N39.0 Acute confusion R41.0 Afib I48.91 Pleural effusion J90 Pneumonia J18.9 Laterality: right Lung location: lower lobe of lung Pneumonia type: due to unspecified organism Metabolic encephalopathy G93.41 Lower extremity edema R60.0 B12 deficiency E53.8 Anemia D64.9 Anemia type: unspecified type Current smoker F17.200 Diabetes type 2, uncontrolled E11.65 Glycemic state: with hyperglycemia Chest pain R07.9 Chest pain type: unspecified (2) CHF (congestive heart failure) Heart failure chronicity: acute on chronic Heart failure type: unspecified Qualified Code(s): I50.9 - Heart failure, unspecified (7) Pneumonia Laterality: right Lung location: lower lobe of lung Pneumonia type: due to unspecified organism Qualified Code(s): J18.9 - Pneumonia, unspecified organism (11) Anemia Anemia type: unspecified type Qualified Code(s): D64.9 - Anemia, unspecified (13) Diabetes type 2, uncontrolled Glycemic state: with hyperglycemia Qualified Code(s): E11.65 - Type 2 diabetes mellitus with hyperglycemia (14) Chest pain Chest pain type: unspecified Qualified Code(s): R07.9 - Chest pain, unspecified
--- NOTE | 2024-02-13 09:54 | Pharmacy Report ---
Pharmacy Glycemic Short Note 2 - Date of Service February 13, 2024 - Glycemic Short BSG Results (Last 24 hours): 02/12/24 02/12/24 02/12/24 11:11 16:00 20:06 Glucose POC Glucose 189 H 200 H 210 H 02/13/24 02/13/24 05:45 07:13 Glucose 211 H POC Glucose 236 H OUTPATIENT ANTIDIABETIC REGIMEN: * Metformin 1 g PO BIDM * Glipizide 5 mg PO daily HbA1c: 8.9% (02/10/24) ASSESSMENT: 02/13/24: * Daniella received 81 units of insulin yesterday (35 basal) * Fasting BSG this AM elevated, but downtrending, will continue current basal and adjust tomorrow if still elevated. * She is on a 5 day course of prednisone 20mg * All BSGs above goal range, tighten Novolog 02/12/24 * Daniella received a total of 87 units of SQ insulin yesterday * 40 units basal + 47 units bolus (received two doses of solu medrol 40 mg during this time) * Solu medrol IV has been transitioned to prednisone 20 mg daily starting today * Fasting BSG remains elevated, 255 mg/dL. Suspect basal needs will decrease with change in steroids. Will trial Lantus 35 units daily which has worked well for her in the past when on once daily prednisone. * Persistent post prandial BSG elevation yesterday. Again, suspect improvement due to change in steroids. Will continue current novolog CF and CR for now. Lunch BSG acceptable at 189 mg/dL 02/11/24: * HERNAN is a 74 year old female well known to pharmacy glycemic service due to numerous past consultations * Patient presented to ED via EMS due to vomiting and shortness of breath * Currently receiving methylprednisolone 40 mg IV q8h for presumed COPD exacerbation * Per pulmonary note: steroids can likely be tapered fairly rapidly (will monitor) * Steroids subsequently changed to prednisone 20 mg PO daily (first dose on 02/12/24) * Cefepime empirically for UTI * Historically, patient requires aggressive carb coverage and basal insulin while receiving steroids PLAN FOR INPATIENT GLYCEMIC CONTROL: * Hold outpatient oral diabetes medications * Basal insulin * Lantus 35 units SQ daily * Bolus insulin * NovoLog per scale ACHS or Q6hrs while NPO * Goal Range: Low 110 mg/dL - High 140 mg/dL * Correction Factor: 12 mg/dL/unit * Nutritional / Prandial insulin per carb ratio of 1 unit per 3 grams CHO consumed
--- NOTE | 2024-02-13 11:01 | Discharge Summary ---
Date of Service February 13, 2024 Admission HPI Per Admitting Provider The patient is a 74-year-old female with a past medical history including recent admission from 12/17-12/21/2023 for acute on chronic respiratory failure with hypoxia and hypercapnia, COPD with acute exacerbation, pleural effusion, CHF, tobacco use, sepsis, metabolic encephalopathy, A-fib, hypertension, chronic anemia, chronic pain syndrome, and uncontrolled diabetes mellitus. Patient was placed on oxime mask, then 4 L nasal cannula, and then onto CPAP, with pulse ox in the mid to upper 90s. Admission Exam Per Admitting Provider The patient is nonresponsive, normocephalic and atraumatic, lying in bed and in no acute distress. HEENT--PERRL, EOMI, mucous membranes and oropharynx dry. Neck--supple. No JVD. No bruits. Thyroid normal, trachea midline, no adenopathy. Heart--normal S1 and S2. No murmurs, rubs or gallops. Lungs--decreased breath sounds right base, no respiratory distress, no accessory muscle use. Abdomen--normal bowel sounds and soft. Nontender. Nondistended Extremities-- 1+ bilateral pretibial pitting edema. Dermatologic--normal skin turgor, normal color, no abnormal lymph nodes, no rash. Neurologic--cranial nerves II through XII grossly intact. Rheumatologic--limited exam Psychiatric--nonresponsive Principal Diagnosis Acute respiratory failure, possible aspiration pneumonia, volume overload, UTI Discharge Exam General: 74yo chronically ill female sitting up in bed, appears MUCH improved today, less confused and back to baseline, wanting to go home HEENT: head atraumatic, normocephalic, mmm, trachea midline Resp: +moist cough, no tachypnea, improvement in air entry bilaterally, almost completely resolved wheezing, +decreased rhonchi, on 3L NC CV: RRR, no significant m/r/g, +significantly decreased LE edema bilaterally, pulses palpable, calves nontender GI: +BS, soft/NT : pederson draining clear yellow urine MSK/Neuro: nonfocal, no slurred speech/facial droop, able to follow commands , generalized weakness much improved, chronic back pain at baseline Psych: AOx3, cooperative with exam Discharge Data Allergies Allergy/AdvReac Type Severity Reaction Status Date / Time diflunisal AdvReac Intermediate HEART RACES Verified 02/10/24 00:59 Consultations 02/10/24 00:01 ED Decision to Admit Stat 02/10/24 09:06 Consult Pulmonology Routine Ordered Studies Chest X-Ray 02/09/24 21:15 XR chest 1V portable CLINICAL HISTORY: Dyspnea TECHNIQUE: Single frontal radiograph of the chest was obtained. Comparison: Comparison is made to chest radiograph 01/15/2024 FINDINGS: No lines and tubes are seen. Cardiomegaly is noted. The aortic arch is calcified. Right lower lung airspace opacity is seen. No evidence of pleural effusion or pneumothorax. IMPRESSION: Right lower lung airspace opacity. This may represent atelectasis, pneumonia, and/or aspiration. ACT 112: Negative or not required by law. Electronically signed by: Tushar Souza M.D. 02/10/2024 7:01 AM Abdomen/Pelvis CTA 02/09/24 21:44 Exam(s): CTA ABDOMEN + PELVIS With Contrast IV Amt: 119 ml opti 320 EXAM: CT Angiography Abdomen and Pelvis With Intravenous Contrast CLINICAL HISTORY: Reason for exam: abdominal pain; AMS. TECHNIQUE: Axial computed tomographic angiography images of the abdomen and pelvis with intravenous contrast. CTDI is 54 mGy and DLP is 2369.18 mGy-cm. Automated exposure control was utilized for the study. A dose lowering technique was utilized adhering to the principles of ALARA. MIP reconstructed images were created and reviewed. CONTRAST: Patient received 119 ml opti 320 of IV contrast COMPARISON: No relevant prior studies available. FINDINGS: VASCULATURE: Aorta: 4.1 x 4.3 cm infrarenal abdominal aortic aneurysm. Diffuse atherosclerotic change of the thoracic aorta. No dissection. Celiac trunk and mesenteric arteries: No acute findings. No occlusion or significant stenosis. Renal arteries: No acute findings. No occlusion or significant stenosis. Iliac arteries: No acute findings. No occlusion or significant stenosis. Lung bases: Right middle lobe infiltrate. Pleural space: Right-sided pleural effusion. Heart: Coronary artery calcifications. ABDOMEN: Liver: Unremarkable. No mass. Gallbladder and bile ducts: Postoperative changes prior cholecystectomy. No ductal dilation. Pancreas: Unremarkable. No ductal dilation. No mass. Spleen: Unremarkable. No splenomegaly. Adrenals: 1.2 cm left adrenal left nodule. Kidneys and ureters: Unremarkable. No hydronephrosis. No solid mass. Stomach and bowel: Diverticulosis without evidence of diverticulitis. Mild to moderate amount of stool within the colon. No obstruction. PELVIS: Appendix: No findings to suggest acute appendicitis. Bladder: Unremarkable. No mass. Reproductive: Unremarkable as visualized. ABDOMEN and PELVIS: Intraperitoneal space: Unremarkable. No significant fluid collection. No free air. Bones/joints: No acute fracture. No dislocation. Soft tissues: Unremarkable. Lymph nodes: Unremarkable. No enlarged lymph nodes. IMPRESSION: 4.3 cm infrarenal abdominal aortic aneurysm. Fatty infiltration of liver Electronically signed by: Elliot Bonilla MD 02/09/24 23:20 PM Chest CTA 02/09/24 21:44 Exam(s): CTA CHEST W/WO Contrast IV Amt: 119 ml opti 320 EXAM: CT Angiography Chest Without and With Intravenous Contrast CLINICAL HISTORY: Reason for exam: chest pain; hypoxia. TECHNIQUE: Axial computed tomographic angiography images of the chest without and with intravenous contrast. CTDI is 54 mGy and DLP is 2369.18 mGy-cm. Automated exposure control was utilized for the study. A dose lowering technique was utilized adhering to the principles of ALARA. MIP reconstructed images were created and reviewed. CONTRAST: Patient received 119 ml opti 320 of IV contrast COMPARISON: No relevant prior studies available. FINDINGS: Pulmonary arteries: Unremarkable. No pulmonary embolus. Aorta: See below. Lungs: Diffuse changes COPD. Multiple punctate calcifications within the spleen consistent with prior granulomatous disease. Right middle lobe infiltrate likely infectious or inflammatory etiology.. Pleural space: Right pleural effusion aortic valvular calcifications. No pneumothorax. Heart: Unremarkable. No cardiomegaly. No significant pericardial effusion. No evidence of RV dysfunction. Mediastinum: Calcified mediastinal lymph nodes consider prior granulomatous disease. Bones/joints: No acute fracture. No dislocation. Soft tissues: Unremarkable. Lymph nodes: See above. IMPRESSION: Moderate sized right pleural effusion Right middle lobe infiltrate likely infectious or inflammatory etiology Electronically signed by: Elliot Bonilla MD 02/09/24 23:33 PM Chest X-Ray 02/11/24 07:00 XR chest 1V portable HISTORY: Right pleural effusion and right basilar densities. Follow-up. Shortness of breath. COMPARISON: Chest 02/09/2024. FINDINGS: No pneumothorax. The heart remains top normal in size. Mild chronic interstitial thickening persists. The left lung is clear. Focal right middle lobe density persists. Calcified granuloma within the right lower lobe. Trace right pleural effusion has improved. No evidence for pulmonary edema. Calcifications within the aortic knob. No acute fractures. Emphysema again noted. IMPRESSION: 1. Focal right middle lobe density persists and favors a pneumonia or scarring. 2. Trace right pleural effusion has improved. 3. Emphysema. ACT 112: Negative or not required by law. Electronically signed by: Wicho Gutierrez M.D. 02/11/2024 7:02 AM Hospital Course (1) Acute on chronic respiratory failure with hypoxia and hypercapnia: Acute on chronic respiratory failure with hypoxia and hypercapnia/right middle and right lower lobe pneumonia/moderate right pleural effusion- CTA of chest: Moderate sized right pleural effusion. Right middle lobe infiltrate likely infectious or inflammatory etiology Cefepime 2gm IV BID, Vancomycin on admission however Vanco discontinued w/ negative MRSA nares Placed on BiPAP on admission, continued encouragement at [facility] (also discussed w/ Juan to continue encouragement w/ compliance as well as smoking cessation) IV steroids transitioned to prednisone 20mg PO daily per pulm, consulted while inpatient Continued on pulmonary toilet, mucinex, hypertonic saline, Perforomist nebulizers and budesonide. Rxs for hypertonic saline and performomist sent at discharge Transitioned to Augmentin to complete course for urinary coverage as below but also covering for possible aspiration PNA Of note, had been given lasix 40mg IV BID for several doses, changed to 40mg IV once daily w/ good output and decreased edema and titrated to 3L at rest w/ normal 4-5L baseline --> Patient believes she had NOT been taking the increased lasix to 40mg as prior directed and encouraged compliance w/ low salt diet/limited excessive fluid intake. She reports adds salt to foods but he notes she likes them too. Discussed her current weight (64.5kg, 142lb) and monitoring of weights and suspect occasionally she will need additional lasix dosing as needed for weight gain as discussed w/ Daniella and Juan via phone prior to discharge Again, smoking cessation strongly encouraged, (still 1/2ppd smoker and did not need nicotine patch while inpatient) and compliance w/ her BiPAP as tolerated while inpatient for chronic hypercarbia Pulm f/u at [facility] to be arranged by navigator PT/OT seen while inpatient and patient wanted HHPT resumed through prior company at [facility], CM arranged (2) CHF (congestive heart failure): CHF exacerbation - patient had her lasix increased to 40mg daily during discharge in early November, believes she had only been taking 20mg PO daily per her account s/p 20mg IV lasix in ER on admission (with 25g IV albumin) Review of weights in system and exam w/ increased LE edema and increased once daily 20mg IV lasix to 40mg IV BID w/ good results and stable kidney function and patient was transitioned to lasix 40mg IV once daily and suspect weights back to baseline CXR w/ improvement in prior pleural effusion on admission As above, to continue lasix 40mg po daily and monitor weights at home for monitoring for additional needs. wt 142lb prior to discharge and suspect closer to her dry weight. Prior ECHO ECHO in October w/ normal EF, elevated RVSP 40-50mmHg BiPAP compliance encouraged At discharge, meds: metoprolol, losartan to resume and continue daily lasix to ensure K stable (no need for replacement w/ continued lasix while inpatient). Low salt diet, limit excessive fluid and monitoring of her weights with additional lasix for weight gain as discussed (3) Acute UTI (urinary tract infection): +UA on admission, pederson placed, given lasix Hx E. coli UTI on 01/15/2024, with resistance to fluoroquinolones.History of Enterococcus faecalis UTI on 11/21/2023, with sensitivity to vancomycin, daptomycin and ampicillin Urine cx GNB on preliminary, discontinued vancomycin and finalized w/ ecoli resistant to FLQ Cefepime transitioned to Augmentin as above for both urinary and pulm coverage for possible aspiration PNA, end date 02/15 Pederson removed prior to dc and had voided since without issue (4) Acute confusion: Resolved w/ BiPAP, lasix and abx/treatment as outlined above To continue BiPAP at dc, estrella in setting of opiates for chronic back pain Alert/orientedx3 prior to dc (5) Afib: On Eliquis BID, prior + fecal occult testing and was held at discharge Hgb around prior, remains on eliquis. Repeat fecal occult/consider holding if remaining positive Remains on PPI BID continued in meantime Metoprolol continued rates controlled on telemetry Did have 1 episode 14beat vtach afternoon 02/11, asymptomatic. echo as above. No CP/SOB and no further events Continue metoprolol, meds as above. Continued on eliquis Discussed should have GI f/u for screening. Did not collect fecal sample while inpatient but denied any blood in stool (however was + last admit as above) during bowel movements (6) Pleural effusion: as above, diuresis as outlined CXR w/ improvement w/ increased diuretics and suspect was not taking the increased lasix as she should be. Lasix dosing at [facility] as outlined above. Encouraged low salt diet at [facility] (7) Pneumonia: possible aspiration pneumonia suspected on admission abx as above, MRSA nares negative, vanco dc'd pulm did not suspect any infectious etiology however covering for urinary sources as well and abx changed to augmentin to complete course (8) Metabolic encephalopathy: resolved combo noncompliance w/ BiPAP, UTI, volume overload. See above (9) Lower extremity edema: Much improved, now back to baseline as suspected above. Patient reported significant improvement Lasix increased to 40mg PO daily at [facility] (10) B12 deficiency: prior low at 107 in October with myself. Provided IM x 3 doses at that time and B12 on repeat this admission 285 and PO supplementation started and continued at discharge (11) Anemia: Hgb around baseline, no raul bleeding reported B12 as above Iron panel w/ iron 24, trans % 10, ferritin 54 --> Venofer IV given 02/10, 02/11 while inpatient Continued on PPI BID as above Was not able to collect occult blood testing but suspect bigger benefit from continuing her eliquis given high risk for event w/ end stage COPD/afib/etc as above and hgb remaining stable and improved w/ diuresis and suspect was lower than actually was on admission As above though, was positive during prior admission and eliquis had been held but resumed at some point and continued during prior admission. LE edema resolved w/ diuretics and do not suspect any PE at present Continued eliquis at [facility] but instructed she should have f/u fecal occult testing w/ PCP to see if still positive but recs to have GI f/u for screening (12) Current smoker: Continued to encourage smoking cessation, 1/2ppd reported (13) Diabetes type 2, uncontrolled: Elevations while inpatient likely 2nd to steroids on admit decreased rapidly to prednisone 20mg daily w/ improvement pharmacy consulted while inpatient w/ improvement in BSGs Home metformin/glipizide resumed at [place] and to monitor her sugars. Only has 2 more doses of prednisone left (14) Chest pain: Reported overnight 02/09-02/10. ?related to back pain. NSR on telemetry. EKG w/ PVCs No CP reported to myself, breathing much improved BSG control as outlined above EKG w/ CP Had been NSR on monitor, did have 14 beat run vtach around lunch time 02/11, asymptomatic and continued to monitor on telemetry K 4,4, mag 1.7 and was ordered 2gm to keep closer to 2 --Mag 2.1 on repeat No further episodes on monitor, no further CP reported Other chronic problems: Hypertension with CKD stage 3 and acute on chronic diastolic CHF Chronic, stable/improved Tx as outlined f/u PCP [facility]- 4.3 cm noted on CTA abdomen pelvis Can be followed serially with primary care Plan discharged home w/ , resumed HHPT Instructed patient to monitor her oxygen levels at home and titrate to lowest O2 setting at rest to prevent overcorrection-->should be using BiPAP as much as able at night and w/ napping during the day, especially on chronic pain medications Augmentin to complete abx course, nebulizers as outlined Lasix increased to 40mg PO daily, should monitor weights and have additional dosing as needed for weight gain given her acute on chronic diastolic HF. Consideration for f/u CHF clinic per PCP in follow up discussions if patient agreeable. Updated Juan via phone prior to discharge. He will come to pick her up after lunch. Instructed to alert of any questions/concerns regarding discharge instructions prior to dc for clarification if needed Total Time Total Time Spent Total Time Spent (In Minutes): 50 Discharge Plan Discharge Items Patient Disposition: Home - Home Health Services Reason For Visit: ACUTE ON CHRONIC RESP FAILURE W/ HYPOXIA Discharge Diagnosis: Respiratory Failure, possible aspiration pneumonia, urinary tract infection Goals: You have been hospitalized for an acute medical problem. During your stay at [facility], we have made an effort to correct the problem that brought you to the hospital while keeping you as comfortable as possible. Medications were used to bring your condition under control and your discharge instructions will include directions for any medications you should take after leaving the hospital. Please make sure you see your Primary Care Provider as part of your follow up plan. Activity: Resume your previous activity Non-emergency contact: Primary Care Provider and Plant Accountant Call non-emergency contact if: you have any medication questions, your symptoms worsen, your pain is concerning for you and you have a fever Follow-up/Referrals: Anthony Santos MD [Physician] - (Please contact Dr. Santos's office if you do not hear anything from their office to schedule your hospital discharge follow up. Thank you! ) Rosi Borges CRNP [Primary Care Provider] - 02/23/24 11:00 am Diet: Heart Healthy and Low Sodium (2gm) Fluids: 1800ml (7 cups) Addtl Attending Provider Instructions: You have been hospitalized for acute on chronic respiratory failure and possible aspiration pneumonia. You have been treated with IV antibiotics and are being sent on Augmentin twice a day through February 15. You should continue prednisone 20mg by mouth ONCE daily until that time as well. You should continue your home breathing treatments and we have sent in hypertonic saline and Perforomist as well to be used twice daily to help with mucus plugging along with your usual inhalers. You should continue Mucinex twice a day. You should AVOID SMOKING and it is STRONGLY encouraged to continue your BiPAP machine as much as possible while sleeping/napping to prevent worsening of this. You should check your oxygen at home and have been stable on 3 liters presently because we have given you medications for water pill and your swelling and edema are improved. You may need this turned up to 4 liters with ambulation but should check our oxygen levels at home and turn down the oxygen to lowest setting to keep your levels above 90%. Having this too high with cause your respiratory drive to go down. Regarding volume overload/weight gain, you should be on the INCREASE Lasix to 40mg by mouth once daily and monitor your weights and if increasing you should be on this TWICE a day. You should continue a LOW SALT diet and monitor your water intake to prevent excessive water intake. Your weight at discharge is 142 pounds. You should continue oral B12 supplementation as discussed during prior admission. You should have GI follow up for screening EGD to see if any underlying bleeding but hemoglobin levels have been stable on your continued Eliquis for now. Please follow up with primary care and pulmonology at discharge. Please return to the ER with any increased shortness of breath, fever/chills, chest pain, or for any other symptoms concerning for you. Take care! Bhargavtl Internal Audit Director Provider Instructions: Call 911 and go to the Emergency Room if: * You have tightness or pain in your chest that does not go away with rest or Nitroglycerin * You are very short of breath even with rest Call your doctor if any of the following symptoms or problems start or get worse: * Shortness of breath or difficulty breathing * Wake up at night short of breath * Chest pain * Cough * Swelling of your hands, fee, or legs * More fatigued or tired with your normal activity * Palpitations - sudden fast heart beats WEIGHT * Weigh yourself every morning after using the bathroom. * Use the same scale. * Wear the same amount of clothing. * Write your weight down on your chart. * Call your doctor if you gain more than 2-3 pounds in 1-2 days. MEDICATIONS * Use this discharge instruction sheet for instructions. * Take your medications at the time your doctor ordered. * Do not skip a dose of your medicines. * If you miss a dose of medicine, take as soon as possible, but DO NOT DOUBLE A DOSE. * Read your medicine information when you get home. * Know all of the side effects of your medicine. * Call your doctor's office if you have any side effects. * Be sure all of your doctors know what medicine and herbs you take (including cold, flu, and herbal medicine). * Pain Medicine: If you do not get relief from your pain, please call your doctor for help. Take the following with you to your follow-up doctor appointments: * Weight Chart * Medication List * List of questions Do not drink excessive alcohol, beer or wine. Pending Studies at Discharge: Yes Studies:: Blood cultures -- no growth to date Stand-Alone Forms: My [facility] [employer]Mark, Smoking Cessation Medications and DC Order Prescriptions: New amoxicillin-pot clavulanate 875-125 mg Tablet 1 tab PO BIDM Qty: 7 0RF formoterol fumarate [Perforomist] 20 mcg/2 mL Solution For Nebulization 20 mcg NEB BIDR Qty: 60 0RF prednisone 20 mg Tablet 20 mg PO QAM Qty: 3 0RF cyanocobalamin (vitamin B-12) 500 mcg Tablet 1,000 mcg PO QAM Qty: 30 0RF Continued aspirin [Uri Low Dose Aspirin] 81 mg Tablet,Delayed Release (Dr/Ec) 81 mg PO QAM Hold Instructions: Resume on 11/28/23. hold until seen by primary care albuterol sulfate [Ventolin HFA] 90 mcg/actuation HFA aerosol inhaler 2 puff INHALATION Q6 PRN (Reason: Shortness Of Breath Or Wheezing) metformin 1,000 mg tablet 1,000 mg PO BID (DME) OneTouch Verio test strips Strip See Rx Instructions .ROUTE .MEDSUPPLY Qty: 50 3RF Rx Instructions: test blood sugar 1-2 times per day losartan 50 mg tablet 50 mg PO QAM folic acid 1 mg tablet 1 mg PO QAM rosuvastatin 20 mg tablet 20 mg PO DAILY budesonide-formoterol 160-4.5 mcg/actuation HFA aerosol inhaler 2 puff INHALATION BID Spiriva Respimat 1.25 mcg/actuation mist 2 puff inhalation DAILY Qty: 4 0RF pantoprazole 40 mg Tablet,Delayed Release (Dr/Ec) 40 mg PO BID Qty: 60 0RF ipratropium-albuterol 0.5 mg-3 mg(2.5 mg base)/3 mL solution for nebulization 3 ml inhalation Q4H PRN (Reason: shortness of breath) Qty: 90 0RF Rx Instructions: until breathing returns to target peak flow/parameters Eliquis 5 mg Tablet 5 mg PO BID Qty: 60 5RF Hold Instructions: Resume on 11/28/23. hold until discussed with primary care diltiazem HCl 180 mg Capsule,Extended Release 24hr 180 mg PO QAM Qty: 30 5RF glipizide 5 mg tablet 5 mg PO DAILY Qty: 30 0RF Rx Instructions: please take while on prednisone metoprolol succinate 50 mg tablet extended release 24 hr 50 mg PO BID Qty: 60 5RF oxycodone 5 mg tablet 5 mg PO TID PRN (Reason: Pain) Qty: 30 0RF Ferosul Tab 125 mg PO BID guaifenesin [Mucinex] 600 mg tablet extended release 12hr 1,200 mg PO Q12 PRN (Reason: Congestion) Changed furosemide 20 mg tablet 40 mg PO DAILY Qty: 60 0RF sodium chloride 7 % solution for nebulization 4 ml NEB BIDR PRN (Reason: Shortness Of Breath Or Wheezing) Qty: 120 0RF Discharge Orders: Discharge Order (Routine); Ordered 02/13/24 Ordered By: Crystal Montana Krames/Other Patient Handouts: Managing Type 2 Diabetes Admission Data Admit Date/Time: 02/10/24 00:16 Attending Provider: Timothy Richards Admit Provider: Danie Mckay Primary Care Provider: Rosi Borges Other Providers: Danie Mckay; Hunter Scott Other Interventions: Discharge Summary Assessment (RN) Last Done: 02/13/24 12:46 Supervising Physician Co-Signing Physician Notes The patient was not seen by me. The chart was reviewed. Case discussed with [place] Haley. Agree with assessment and plan. The patient is medically stable for discharge today, February 12 Coding Level of Care Code 84970 INP/OBS DISCH >30 MIN Diagnoses Acute on chronic respiratory failure with hypoxia and hypercapnia J96.21; J96.22 CHF (congestive heart failure) I50.9 Heart failure chronicity: acute on chronic Heart failure type: unspecified Acute UTI (urinary tract infection) N39.0 Acute confusion R41.0 Afib I48.91 Pleural effusion J90 Pneumonia J18.9 Laterality: right Lung location: lower lobe of lung Pneumonia type: due to unspecified organism Metabolic encephalopathy G93.41 Lower extremity edema R60.0 B12 deficiency E53.8 Anemia D64.9 Anemia type: unspecified type Current smoker F17.200 Diabetes type 2, uncontrolled E11.65 Glycemic state: with hyperglycemia Chest pain R07.9 Chest pain [id number]
[2024-02-14] MEDS ORDERED: NovoLIN-N (NPH) PER UNIT CHARGE SQ ONE (07:30)
== END 2024-02-13 13:26 | disposition home health service (06) | DRG 291 ==
LOC: ED 21:10 → EDINP 02-10 00:16 → SUATTDRO 02-10 00:16 → 2S 02-10 15:08

== ENCOUNTER 2024-04-30 08:54 | Observation (INO) ==
--- NOTE | 2024-04-30 09:22 | Emergency Department Note ---
Impression & Plan Sepsis, Abdominal pain, Hypomagnesemia, Anemia ED Provider Note NAME: DANIELLA FLANNERY AGE: 74 SEX: F : 1950 ARRIVES VIA: Ambulance INFORMANT: Patient ED PROVIDER(S): Elliot Loja DO CHIEF COMPLAINT: Pain all over HPI: Patient is a 74-year-old female with a past medical history of acute on chronic respiratory failure, CHF, pleural effusions who presents the ER for pain from her toes all the way up through her chest. She notes she has had left upper quadrant/epigastric and diffuse abdominal pain for the past week. She is having vomiting and diarrhea associated with it. She notes that when the pain gets bad in her stomach it radiates up into her chest and she gets chest pain and shortness of breath. No dysuria, urgency, or frequency. No fevers that she is aware of. She feels very weak and rundown. ADDITIONAL HISTORY OBTAINED: Per HPI Chronic Medical/Social Conditions Affecting Care: Per HPI PAST MEDICAL HISTORY:See Below PAST SURGICAL HISTORY:See Below FAMILY HISTORY:See Below SOCIAL HISTORY:See Below HOME MEDICATIONS:See Below ALLERGIES:See Below VITALS:See Below PHYSICAL EXAMINATION: GENERAL: Sitting up in bed, alert, chronically ill-appearing on 4 L nasal cannula EYE EXAM: normal conjunctiva. OROPHARYNX: no exudate, no erythema, lips, buccal mucosa, and tongue normal and mucous membranes are moist NECK: supple, no nuchal rigidity, no adenopathy, non-tender LUNGS: Clear to auscultation. Normal chest wall mechanics CHEST: Tenderness in the epigastric region of the abdomen tracking up and through the chest wall midsternal HEART: no murmurs, S1 normal and S2 normal ABDOMEN: abdomen soft, diffuse tenderness throughout, normo-active bowel sounds, no masses, no rebound or guarding. BACK: Back is symmetrical on inspection and there is no deformity, no midline tenderness, no CVA tenderness. SKIN: no rashes and no bruising UPPER EXTREMITIES: upper extremities are grossly normal. LOWER EXTREMITIES: No pitting edema. NEURO EXAM: Normal sensorium, cranial nerves II-XII grossly intact, normal speech, no gross weakness of arms, no gross weakness of legs. MEDICAL DECISION MAKING: Patient is a 74-year-old female who presents ER for the above-stated complaint. Reproducible abdominal pain on exam that radiates up into the chest. IV was established blood work was obtained. Labs show no significant leukocytosis. Mild anemia at 9.5. Platelets were elevated at 590. BMP with a lactate of 5.5. Patient was given 1.6 L of normal saline which is 30 cc/kg for ideal body weight. Lactate was elevated at 5.5. Mag was low at 1.1. Troponin was negative. Pro-Wilder was significantly elevated at greater than 100. UA was not pending upon admission and patient was given IV antibiotics. CT abdomen pelvis showed no new changes. Chest x-ray was clean. Patient was updated bedside discussed with the hospitalist admitted for further workup. Patient was admitted with thought of sepsis likely secondary to UTI. Consults/Care Managements Discussions: Per [facility] Triage Nursing notes reviewed. Limited review of prior medical records performed Vital Signs: reviewed and remarkable for tachycardic and 100% on her chronic 4 L nasal cannula Differential diagnosis: Differential diagnoses includes but is not limited to gastritis, peptic ulcer disease, GERD, gallbladder disease, pancreatitis, small bowel obstruction, appendicitis, diverticulitis, hernia, urinary tract infection, torsion,, perforation, trauma, infectious. ER treatment provided: See below Diagnostics interpreted by me include EKG and cardiac monitoring as listed below: -Cardiac Monitoring: An order was placed for continuous cardiac monitoring. The monitor shows a rate of 101 with sinus rhythm. -ECG: Sinus tachycardia rate of 107 Normal axis No PVCs QTc 483 -Laboratory studies:Interpreted by me as stated above in MDM and shown below. Imaging studies: Xrays: As interpreted by me: Portable AP upright 1 view of the chest shows no focal Lutrate CTs show: CT abdomen pelvis as described above Procedures:none Critical Care: None Past Med/Surg History Problem List (Updated 04/30/24 @ 15:34 by Elliot Loja DO) Anemia (Acute) Hypomagnesemia (Acute) Abdominal pain (Acute) Sepsis (Acute) Tobacco abuse Acute on chronic respiratory failure with hypoxia Left lower lobe pneumonia CHF (congestive heart failure) (Acute) Acute UTI (urinary tract infection) (Acute) Pleural effusion (Acute) Shortness of breath (Acute) Abdominal pain (Acute) Acute hypoxemic respiratory failure (Acute) Hypomagnesemia (Acute) COPD with acute exacerbation (Acute) Pleural effusion (Acute) CHF (congestive heart failure) (Acute) Pneumonia (Acute) Acute on chronic respiratory failure with hypoxia and hypercapnia (Acute) Ambulatory dysfunction Current smoker Pneumonia (Acute) Acute respiratory distress (Acute) Altered mental status (Acute) Tachycardia (Acute) Hypomagnesemia (Acute) Sepsis (Acute) Metabolic encephalopathy Hyperglycemia Acute exacerbation of chronic obstructive pulmonary disease (Acute) Hypoxia (Acute) Afib COPD, very severe Encounter for hospice care discussion Advanced care planning/counseling discussion Palliative care by specialist Anxiety about health Weakness generalized Dyspnea and respiratory abnormalities Atrial fibrillation with rapid ventricular response (Acute) Dilated pancreatic duct Positive blood culture Abdominal pain Abdominal pain Lower extremity edema Respiratory distress (Acute) Hypertension (Acute) COPD exacerbation (Acute) Respiratory acidosis (Acute) Elevated lactic acid level (Acute) Tachycardia (Acute) Hypomagnesemia (Acute) Acute bronchitis with chronic obstructive pulmonary disease (COPD) SOB (shortness of breath) (Acute) Anemia (Acute) Chest tightness (Acute) UTI (urinary tract infection) Chronic pain syndrome SOB (shortness of breath) (Acute) COPD exacerbation (Acute) Dizziness (Acute) Acute UTI (Acute) Hypomagnesemia (Acute) Anemia B12 deficiency COPD exacerbation (Acute) Hyperlipidemia Dysphagia Chronic kidney disease HTN (hypertension) Thrombocythemia Chronic low back pain (Chronic) Diaphragmatic hernia (Chronic 10/31/11) Overweight (BMI 25.0-29.9) (Chronic) AAA (abdominal aortic aneurysm) Left peroneal nerve palsy (Chronic) History of knee replacement (Acute) Knee pain, left (Acute) Right knee pain (Acute) Diabetes type 2, uncontrolled (Acute) COPD (chronic obstructive pulmonary disease) (Acute) Medical History (Updated 04/30/24 @ 15:34 by Elliot Loja DO) Acute confusion Severe muscle deconditioning COPD exacerbation Respiratory failure Hyperkalemia Acute hypercapnic respiratory failure TATY (acute kidney injury) AMS (altered mental status) Syncope Acute UTI Acute hypotension Chronic kidney disease, stage 3a Acute kidney injury Acute exacerbation of chronic low back pain Candidiasis of mouth and esophagus DVT prophylaxis Diabetes mellitus COPD (chronic obstructive pulmonary disease) Hypertension Hyperlipidemia Acute on chronic respiratory failure with hypoxia and hypercapnia Family History Other Family history non-contributory Social History Smoking Status: Current every day smoker Tobacco Type: Cigarettes Age Started Using Tobacco: 32; Cigarettes Per Day: 1/2 ppd; Second Hand Exposure: Yes; Do You Dip or Chew Tobacco: No; Hx Alcohol Use: No Hx Substance Use: No Preferred Language: Pashto Communication Ability: Effective Sewer Pipe Cleaner Required: No Beliefs That Will Affect Care: None marital status: Current Living Situation: Spouse Current Living Situation Comment: Lives at home with How many Children do You have: 3 Feels Safe at Home: Yes Assistive Devices: BiPap, Oxygen - Continuous and Walker Allergies Allergies Allergy/AdvReac Type Severity Reaction Status Date / Time diflunisal AdvReac Intermediate HEART RACES Verified 02/19/24 22:58 Home Meds Home Medications Medication Instructions Recorded Confirmed albuterol sulfate 90 mcg/actuation 2 puff inhalation Q6 PRN Shortness 08/28/20 04/30/24 aerosol inhaler (Ventolin HFA) Of Breath Or Wheezing aspirin 81 mg tablet,delayed 81 mg PO QAM 08/28/20 04/30/24 release (Uri Low Dose Aspirin) metformin 1,000 mg tablet 1,000 mg PO BID 08/28/20 04/30/24 folic acid 1 mg tablet 1 mg PO QAM 03/24/22 04/30/24 losartan 50 mg tablet 50 mg PO QAM 03/24/22 04/30/24 rosuvastatin 20 mg tablet 20 mg PO QAM 08/23/23 04/30/24 budesonide-formoterol HFA 160 2 puff inhalation BID 09/21/23 04/30/24 mcg-4.5 mcg/actuation aerosol inhaler guaifenesin 600 mg tablet, 1,200 mg PO Q12 PRN Congestion 02/10/24 04/30/24 extended release 12 hr (Mucinex) apixaban 5 mg tablet (Eliquis) 5 mg PO UD 04/30/24 04/30/24 ferrous sulfate 325 mg (65 mg 325 mg PO BID 04/30/24 04/30/24 iron) tablet fluticasone furoate 100 1 inh inhalation DIRECTED 04/30/24 04/30/24 mcg-vilanterol 25 mcg/dose inhalation powder (Breo Ellipta) furosemide 20 mg tablet 20 mg PO DAILY PRN Edema 04/30/24 04/30/24 insulin glargine 100 unit/mL (3 20 unit subcut BID 04/30/24 04/30/24 mL) subcutaneous pen (Lantus Solostar U-100 Insulin) insulin lispro 100 unit/mL 8 unit subcut TID 04/30/24 04/30/24 subcutaneous pen (Humalog KwikPen (U-100) Insulin) metoprolol succinate 50 mg 50 mg PO UD 04/30/24 04/30/24 tablet,extended release 24 hr oxycodone 5 mg tablet 10 mg PO TID PRN Pain 04/30/24 04/30/24 sodium chloride 7 % for 1 inh inhalation BID PRN 04/30/24 04/30/24 nebulization SOB/WHEEZING Previous Rx's Medication Instructions Recorded blood sugar diagnostic (OneTouch #50 ea 06/02/21 Verio test strips) ipratropium 0.5 mg-albuterol 3 mg 3 ml inhalation Q4H PRN shortness 12/13/22 (2.5 mg base)/3 mL nebulization of breath #90 mL soln diltiazem HCl 180 mg 180 mg PO QAM #30 caps 09/10/23 capsule,extended release 24 hr pantoprazole 40 mg tablet,delayed 40 mg PO BID #60 tabs 11/24/23 release tiotropium bromide 1.25 2 puff inhalation DAILY #4 grams 11/24/23 mcg/actuation mist for inhalation (Spiriva Respimat) cyanocobalamin (vitamin B-12) 500 1,000 mcg (2 x 500 mcg) PO QAM #30 02/13/24 mcg tablet tabs formoterol fumarate 20 mcg/2 mL 20 mcg (2 mL) NEB BIDR #60 mL 02/13/24 solution for nebulization (Perforomist) Results & Data (ED) Vital Signs Vital Signs - 24 hr 04/30/24 08:54 04/30/24 09:02 04/30/24 09:03 Temperature 37.7 C H Temperature Source Oral Pulse Rate 105 H 107 H 107 H Pulse Rate from SpO2 Sensor Pulse Rhythm Respiratory Rate 23 26 H Respiratory Effort / Characteristics Non-Labored Respiratory Depth Normal Respiratory Pattern Regular Blood Pressure 116/70 116/70 Blood Pressure Mean 85 85 Pulse Oximetry 100 Oxygen Delivery Method Nasal Cannula Oxygen Flow Rate 4 Sepsis Recent Fever Within 48 Hours Yes Sepsis New/Unexplained Change in Mental Status No Sepsis Action Taken by Nursing Physician Notified 04/30/24 09:24 04/30/24 09:36 04/30/24 09:41 Temperature Temperature Source Pulse Rate 100 H 101 H 107 H Pulse Rate from SpO2 Sensor 100 H 100 H Pulse Rhythm Regular Respiratory Rate 20 27 H 23 Respiratory Effort / Characteristics Respiratory Depth Respiratory Pattern Blood Pressure 102/64 Blood Pressure Mean 76 Pulse Oximetry 100 99 100 Oxygen Delivery Method Nasal Cannula Oxygen Flow Rate 4 Sepsis Recent Fever Within 48 Hours Sepsis New/Unexplained Change in Mental Status Sepsis Action Taken by Nursing 04/30/24 10:06 04/30/24 10:24 04/30/24 10:33 Temperature Temperature Source Pulse Rate 86 90 84 Pulse Rate from SpO2 Sensor Pulse Rhythm Respiratory Rate 29 H 28 H 28 H Respiratory Effort / Characteristics Respiratory Depth Respiratory Pattern Blood Pressure Blood Pressure Mean Pulse Oximetry Oxygen Delivery Method Oxygen Flow Rate Sepsis Recent Fever Within 48 Hours Sepsis New/Unexplained Change in Mental Status Sepsis Action Taken by Nursing 04/30/24 10:54 04/30/24 11:00 04/30/24 11:18 Temperature Temperature Source Pulse Rate 93 H 87 87 Pulse Rate from SpO2 Sensor Pulse Rhythm Respiratory Rate 25 H 30 H 20 Respiratory Effort / Characteristics Respiratory Depth Respiratory Pattern Blood Pressure Blood Pressure Mean Pulse Oximetry Oxygen Delivery Method Oxygen Flow Rate Sepsis Recent Fever Within 48 Hours Sepsis New/Unexplained Change in Mental Status Sepsis Action Taken by Nursing 04/30/24 11:36 04/30/24 12:03 04/30/24 12:12 Temperature Temperature Source Pulse Rate 88 84 88 Pulse Rate from SpO2 Sensor Pulse Rhythm Respiratory Rate 20 20 27 H Respiratory Effort / Characteristics Respiratory Depth Respiratory Pattern Blood Pressure 122/69 Blood Pressure Mean 86 Pulse Oximetry Oxygen Delivery Method Oxygen Flow Rate Sepsis Recent Fever Within 48 Hours Sepsis New/Unexplained Change in Mental Status Sepsis Action Taken by Nursing 04/30/24 12:21 04/30/24 12:51 04/30/24 13:03 Temperature Temperature Source Pulse Rate 84 83 83 Pulse Rate from SpO2 Sensor Pulse Rhythm Respiratory Rate 21 29 H 30 H Respiratory Effort / Characteristics Respiratory Depth Respiratory Pattern Blood Pressure Blood Pressure Mean Pulse Oximetry Oxygen Delivery Method Oxygen Flow Rate Sepsis Recent Fever Within 48 Hours Sepsis New/Unexplained Change in Mental Status Sepsis Action Taken by Nursing 04/30/24 13:12 04/30/24 13:21 04/30/24 13:36 Temperature Temperature Source Pulse Rate 85 96 H 102 H Pulse Rate from SpO2 Sensor Pulse Rhythm Respiratory Rate 27 H 27 H 26 H Respiratory Effort / Characteristics Respiratory Depth Respiratory Pattern Blood Pressure Blood Pressure Mean Pulse Oximetry Oxygen Delivery Method Oxygen Flow Rate Sepsis Recent Fever Within 48 Hours Sepsis New/Unexplained Change in Mental Status Sepsis Action Taken by Nursing 04/30/24 14:15 04/30/24 14:21 04/30/24 14:49 Temperature Temperature Source Pulse Rate 89 80 80 Pulse Rate from SpO2 Sensor Pulse Rhythm Respiratory Rate 23 21 21 Respiratory Effort / Characteristics Respiratory Depth Respiratory Pattern Blood Pressure Blood Pressure Mean Pulse Oximetry Oxygen Delivery Method Nasal Cannula Oxygen Flow Rate 4 Sepsis Recent Fever Within 48 Hours Sepsis New/Unexplained Change in Mental Status Sepsis Action Taken by Nursing Laboratory Data 04/30/24 09:07 04/30/24 09:07 Lab Results 04/30/24 04/30/24 04/30/24 Range/Units 09:07 09:37 09:38 WBC 8.32 (4.8-10.8) K/ul RBC 3.65 L (4.20-5.40) M/uL Hgb 9.5 L (12.0-16.0) g/dl Hct 32.3 L (37.0-47.0) % MCV 88.5 (80.0-100.0) fL MCH 26.0 (25.0-34.0) pg MCHC 29.4 L (32.0-36.0) g/dL RDW Std Deviation 59.0 H (36.4-46.3) fL RDW Coeff of Dorcas 18.2 H (11.5-14.5) % Plt Count 589 H (130-400) K/uL MPV 9.6 (9.4-12.4) fL Immature Gran % (Auto) 1.4 % Neut % (Auto) 75.6 % Lymph % (Auto) 14.2 % [place] % (Auto) 5.8 % Eos % (Auto) 1.8 % Baso % (Auto) 1.2 % Neut # (Auto) 6.29 (1.40-6.50) K/uL Lymph # (Auto) 1.18 L (1.20-3.40) K/uL [place] # (Auto) 0.48 (0.11-0.59) K/uL Eos # (Auto) 0.15 (0.00-0.50) K/uL Baso # (Auto) 0.10 (0.00-0.20) K/uL Immature Gran # (Auto) 0.12 (0.01-0.20) K/uL VBG pH 7.45 H (7.36-7.41) VBG pCO2 46 (38-50) mmHg VBG pO2 48 mmHg VBG HCO3 32 mmol/L VBG O2 Saturation 82.9 % VBG Base Excess 6.9 mEq/L Sodium 145 (136-145) mmol/L Potassium 3.4 L (3.5-5.1) mmol/L Chloride 101 (98-107) mmol/L Carbon Dioxide 32 (21-32) mmol/L Anion Gap 12 H (3-11) BUN 13 (6-23) mg/dl Creatinine 1.06 (0.6-1.2) mg/dl Est Cr Clr Drug Dosing 43.0 ml/min Est GFR ( Amer) 60.8 ml/min Est GFR (Non-Af Amer) 52.4 ml/min BUN/Creatinine Ratio 12.3 (10-20) Glucose 93 (70-99(Fasting)) mg/dl POC Glucose (70-99) mg/dl Lactate 5.5 H* (0.4-2.0) mmol/L Calcium 8.0 L (8.6-10.3) mg/dl Magnesium (1.7-2.4) mg/dl Total Bilirubin 0.2 (0.2-1.0) mg/dl AST 58 H (13-39) U/L ALT 37 (7-52) U/L Alkaline Phosphatase 116 H (34-104) U/L Troponin I High Sens 9.2 (0-14) pg/ml Total Protein 6.0 (6.0-8.3) gm/dl Albumin 3.5 (3.4-5.0) gm/dl Globulin 2.5 (2.5-4.0) gm/dl Albumin/Globulin Ratio 1.4 (0.9-2) Lipase 21 (11-82) U/L Procalcitonin > 100.00 H (0-0.5) ng/ml Urine Color Urine Appearance (Clear) Urine pH (4.5-7.5) Ur Specific [place] (1.000-1.030) Urine Protein (Negative) Urine Glucose (UA) (Negative) Urine Ketones (Negative) Urine Blood (Negative) Urine Nitrite (Negative) Urine Bilirubin (Negative) Urine Urobilinogen (Negative) Ur Leukocyte Esterase (Negative) Urine WBC (Auto) (0-5) /hpf Urine RBC (Auto) (0-2) /hpf U Hyaline Cast (Auto) (0-2) /lpf U Epithel Cells (Auto) (0-2) /hpf Urine Bacteria (Auto) (None Seen) Adenovirus (PCR) Not Detected (NotDetected) Anaplasma Smear Babesia Smear B. pertussis DNA (PCR) Not Detected (NotDetected) B.parapertussis DNA PCR Not Detected (NotDetected) Lyme Disease Screen (Negative) C. pneumoniae DNA (PCR) Not Detected (NotDetected) Coronavirus OC43 (PCR) Not Detected (NotDetected) Coronavirus HKU1 (PCR) Not Detected (NotDetected) Coronavirus 229E (PCR) Not Detected (NotDetected) SARS-CoV-2 (PCR) Not Detected (NotDetected) Coronavirus NL63 (PCR) Not Detected (NotDetected) Human Metapneumovir PCR Not Detected (NotDetected) Influenza Type A (PCR) Not Detected (NotDetected) Influenza Type B (PCR) Not Detected (NotDetected) M. pneumoniae (PCR) Not Detected (NotDetected) Parainfluenza 1 (PCR) Not Detected (NotDetected) Parainfluenza 2 (PCR) Not Detected (NotDetected) Parainfluenza 3 (PCR) Not Detected (NotDetected) Parainfluenza 4 (PCR) Not Detected (NotDetected) RSV (PCR) Not Detected (NotDetected) Entero/Rhino (PCR) Not Detected (NotDetected) 04/30/24 04/30/24 04/30/24 Range/Units 09:44 11:33 11:54 WBC (4.8-10.8) K/ul RBC (4.20-5.40) M/uL Hgb (12.0-16.0) g/dl Hct (37.0-47.0) % MCV (80.0-100.0) fL MCH (25.0-34.0) pg MCHC (32.0-36.0) g/dL RDW Std Deviation (36.4-46.3) fL RDW Coeff of Dorcas (11.5-14.5) % Plt Count (130-400) K/uL MPV (9.4-12.4) fL Immature Gran % (Auto) % Neut % (Auto) % Lymph % (Auto) % [place] % (Auto) % Eos % (Auto) % Baso % (Auto) % Neut # (Auto) (1.40-6.50) K/uL Lymph # (Auto) (1.20-3.40) K/uL [place] # (Auto) (0.11-0.59) K/uL Eos # (Auto) (0.00-0.50) K/uL Baso # (Auto) (0.00-0.20) K/uL Immature Gran # (Auto) (0.01-0.20) K/uL VBG pH (7.36-7.41) VBG pCO2 (38-50) mmHg VBG pO2 mmHg VBG HCO3 mmol/L VBG O2 Saturation % VBG Base Excess mEq/L Sodium (136-145) mmol/L Potassium (3.5-5.1) mmol/L Chloride (98-107) mmol/L Carbon Dioxide (21-32) mmol/L Anion Gap (3-11) BUN (6-23) mg/dl Creatinine (0.6-1.2) mg/dl Est Cr Clr Drug Dosing ml/min Est GFR ( Amer) ml/min Est GFR (Non-Af Amer) ml/min BUN/Creatinine Ratio (10-20) Glucose (70-99(Fasting)) mg/dl POC Glucose 113 H (70-99) mg/dl Lactate 4.2 H* (0.4-2.0) mmol/L Calcium (8.6-10.3) mg/dl Magnesium 1.1 L (1.7-2.4) mg/dl Total Bilirubin (0.2-1.0) mg/dl AST (13-39) U/L ALT (7-52) U/L Alkaline Phosphatase (34-104) U/L Troponin I High Sens (0-14) pg/ml Total Protein (6.0-8.3) gm/dl Albumin (3.4-5.0) gm/dl Globulin (2.5-4.0) gm/dl Albumin/Globulin Ratio (0.9-2) Lipase (11-82) U/L Procalcitonin (0-0.5) ng/ml Urine Color Yellow Urine Appearance Clear (Clear) Urine pH 8.5 H (4.5-7.5) Ur Specific [place] 1.033 H (1.000-1.030) Urine Protein 1+ H (Negative) Urine Glucose (UA) Negative (Negative) Urine Ketones Negative (Negative) Urine Blood Negative (Negative) Urine Nitrite Positive A (Negative) Urine Bilirubin Negative (Negative) Urine Urobilinogen Negative (Negative) Ur Leukocyte Esterase Negative (Negative) Urine WBC (Auto) 0-5 (0-5) /hpf Urine RBC (Auto) 0-2 (0-2) /hpf U Hyaline Cast (Auto) 0-2 (0-2) /lpf U Epithel Cells (Auto) 0-2 (0-2) /hpf Urine Bacteria (Auto) 4+ H (None Seen) Adenovirus (PCR) (NotDetected) Anaplasma Smear See Comment Babesia Smear See Comment B. pertussis DNA (PCR) (NotDetected) B.parapertussis DNA PCR (NotDetected) Lyme Disease Screen Negative (Negative) C. pneumoniae DNA (PCR) (NotDetected) Coronavirus OC43 (PCR) (NotDetected) Coronavirus HKU1 (PCR) (NotDetected) Coronavirus 229E (PCR) (NotDetected) SARS-CoV-2 (PCR) (NotDetected) Coronavirus NL63 (PCR) (NotDetected) Human Metapneumovir PCR (NotDetected) Influenza Type A (PCR) (NotDetected) Influenza Type B (PCR) (NotDetected) M. pneumoniae (PCR) (NotDetected) Parainfluenza 1 (PCR) (NotDetected) Parainfluenza 2 (PCR) (NotDetected) Parainfluenza 3 (PCR) (NotDetected) Parainfluenza 4 (PCR) (NotDetected) RSV (PCR) (NotDetected) Entero/Rhino (PCR) (NotDetected) 04/30/24 Range/Units 13:14 WBC (4.8-10.8) K/ul RBC (4.20-5.40) M/uL Hgb (12.0-16.0) g/dl Hct (37.0-47.0) % MCV (80.0-100.0) fL MCH (25.0-34.0) pg MCHC (32.0-36.0) g/dL RDW Std Deviation (36.4-46.3) fL RDW Coeff of Dorcas (11.5-14.5) % Plt Count (130-400) K/uL MPV (9.4-12.4) fL Immature Gran % (Auto) % Neut % (Auto) % Lymph % (Auto) % [place] % (Auto) % Eos % (Auto) % Baso % (Auto) % Neut # (Auto) (1.40-6.50) K/uL Lymph # (Auto) (1.20-3.40) K/uL [place] # (Auto) (0.11-0.59) K/uL Eos # (Auto) (0.00-0.50) K/uL Baso # (Auto) (0.00-0.20) K/uL Immature Gran # (Auto) (0.01-0.20) K/uL VBG pH (7.36-7.41) VBG pCO2 (38-50) mmHg VBG pO2 mmHg VBG HCO3 mmol/L VBG O2 Saturation % VBG Base Excess mEq/L Sodium (136-145) mmol/L Potassium (3.5-5.1) mmol/L Chloride (98-107) mmol/L Carbon Dioxide (21-32) mmol/L Anion Gap (3-11) BUN (6-23) mg/dl Creatinine (0.6-1.2) mg/dl Est Cr Clr Drug Dosing ml/min Est GFR ( Amer) ml/min Est GFR (Non-Af Amer) ml/min BUN/Creatinine Ratio (10-20) Glucose (70-99(Fasting)) mg/dl POC Glucose 130 H (70-99) mg/dl Lactate (0.4-2.0) mmol/L Calcium (8.6-10.3) mg/dl Magnesium (1.7-2.4) mg/dl Total Bilirubin (0.2-1.0) mg/dl AST (13-39) U/L ALT (7-52) U/L Alkaline Phosphatase (34-104) U/L Troponin I High Sens (0-14) pg/ml Total Protein (6.0-8.3) gm/dl Albumin (3.4-5.0) gm/dl Globulin (2.5-4.0) gm/dl Albumin/Globulin Ratio (0.9-2) Lipase (11-82) U/L Procalcitonin (0-0.5) ng/ml Urine Color Urine Appearance (Clear) Urine pH (4.5-7.5) Ur Specific [place] (1.000-1.030) Urine Protein (Negative) Urine Glucose (UA) (Negative) Urine Ketones (Negative) Urine Blood (Negative) Urine Nitrite (Negative) Urine Bilirubin (Negative) Urine Urobilinogen (Negative) Ur Leukocyte Esterase (Negative) Urine WBC (Auto) (0-5) /hpf Urine RBC (Auto) (0-2) /hpf U Hyaline Cast (Auto) (0-2) /lpf U Epithel Cells (Auto) (0-2) /hpf Urine Bacteria (Auto) (None Seen) Adenovirus (PCR) (NotDetected) Anaplasma Smear Babesia Smear B. pertussis DNA (PCR) (NotDetected) B.parapertussis DNA PCR (NotDetected) Lyme Disease Screen (Negative) C. pneumoniae DNA (PCR) (NotDetected) Coronavirus OC43 (PCR) (NotDetected) Coronavirus HKU1 (PCR) (NotDetected) Coronavirus 229E (PCR) (NotDetected) SARS-CoV-2 (PCR) (NotDetected) Coronavirus NL63 (PCR) (NotDetected) Human Metapneumovir PCR (NotDetected) Influenza Type A (PCR) (NotDetected) Influenza Type B (PCR) (NotDetected) M. pneumoniae (PCR) (NotDetected) Parainfluenza 1 (PCR) (NotDetected) Parainfluenza 2 (PCR) (NotDetected) Parainfluenza 3 (PCR) (NotDetected) Parainfluenza 4 (PCR) (NotDetected) RSV (PCR) (NotDetected) Entero/Rhino (PCR) (NotDetected) Administered Medications Magnesium Sulfate/Dextrose (Magnesium Sulfate / D5w) 1 gm in 100 mls @ 50 mls/hr IV Q2H KALEY Stop: 04/30/24 17:14 Last Admin: 04/30/24 14:23 Dose: 50 mls/hr Documented By: BIANCA Insulin Aspart (Insulin Aspart Per Unit Charge) 0 units SC ACHS KALEY Stop: 05/30/24 11:29 Last Admin: 04/30/24 14:22 Dose: Not Given Documented By: BIANCA Discontinued Medications Sodium Chloride (Nss) 1,000 mls @ 999 mls/hr IV .Q1H1M ONE Stop: 04/30/24 10:17 Last Infusion: 04/30/24 13:53 Dose: Infused Documented By: Admin: 04/30/24 09:34 Dose: 999 mls/hr Documented By: BIANCA Piperacillin Sod/Tazobactam Sod (Zosyn) 4.5 gm in 100 mls @ 200 mls/hr IV NOW ONE Stop: 04/30/24 10:53 Last Infusion: 04/30/24 13:53 Dose: Infused Documented By: Admin: 04/30/24 11:54 Dose: 200 mls/hr Documented By: BIANCA Sodium Chloride (Nss) 600 mls @ 999 mls/hr IV .Q37M ONE Stop: 04/30/24 11:01 Last Admin: 04/30/24 14:12 Dose: Not Given Documented By: BIANCA Doxycycline Hyclate 100 mg/ (Dextrose) 100 mls @ 50 mls/hr IV NOW ONE Stop: 04/30/24 13:44 Last Admin: 04/30/24 14:20 Dose: 50 mls/hr Documented By: BIANCA Lactated Ringer's (Lr) 500 mls @ 999 mls/hr IV .Q31M ONE Stop: 04/30/24 13:40 Last Admin: 04/30/24 14:20 Dose: 999 mls/hr Documented By: BIANCA Ioversol (Optiray 320 100ml) 94 ml IV ONCE ONE Stop: 04/30/24 10:20 Last Admin: 04/30/24 10:19 Dose: 94 ml Documented By: SERGIO Morphine Sulfate (Morphine Sulfate 2 Mg/Ml Carp) 2 mg IV NOW STA Stop: 04/30/24 09:18 Last Admin: 04/30/24 09:34 Dose: 2 mg Documented By: BIANCA Ondansetron HCl (Ondansetron Inj 2 Mg/Ml 2 Ml Vial) 4 mg IV NOW STA Stop: 04/30/24 09:18 Last Admin: 04/30/24 09:34 Dose: 4 mg Documented By: BIANCA Potassium Chloride (Potassium Chloride Crtab 20 Meq Tabcr) 40 meq PO NOW STA Stop: 04/30/24 11:22 Last Admin: 04/30/24 14:11 Dose: 40 meq Documented By: BIANCA Imaging Data Radiologist's Impression: Abdomen/Pelvis CT 04/30/24 09:16 CT SCAN OF THE ABDOMEN AND PELVIS WITH IV CONTRAST CLINICAL HISTORY: Generalized abdominal pain. COMPARISON STUDY: Numerous prior abdominal CT scans, most recently dated 02/09/2024. TECHNIQUE: Following the IV administration of 94 cc of Optiray 320, CT scan of the abdomen and pelvis is performed from the lung bases to the proximal femora. Images are reviewed in the axial, sagittal, and coronal planes. IV contrast was administered without complication. A dose lowering technique was utilized adhering to the principles of ALARA. CT DOSE: 680.78 mGy.cm FINDINGS: Lung bases: The heart is normal in size and without pericardial effusion. The coronary arteries and mitral annulus are densely calcified. Emphysematous change is noted. There are scattered calcified granulomas. There is bibasilar scarring/atelectasis. No airspace consolidation or pleural effusion is identified. Liver: The contrast-enhanced liver is normal in size, contour, and attenuation. There is mild central intrahepatic biliary ductal dilatation. The hepatic veins and portal veins are patent. Gallbladder: Surgically absent noting clips in the gallbladder fossa. Spleen: Normal in size and attenuation. There are numerous calcified splenic granulomas. Pancreas: The pancreas is atrophic. There is diffuse dilatation of the pancreatic duct which measures up to 8 mm. This is similar to previous. Pancreas divisum is noted. Adrenal glands: Bilateral adrenal adenomas are unchanged and measure up to 13 mm. Kidneys: The contrast enhanced kidneys demonstrate mild cortical atrophy and without hydronephrosis. The kidneys enhance symmetrically. Scattered subcentimeter cortical hypodensities likely represent cysts but are too small for definitive characterization. Abdominal vasculature: There is advanced atherosclerotic calcification and ectasia of the abdominal aorta. An infrarenal abdominal aortic aneurysm measures 3.8 x 4.3 cm (AP x transverse). Bowel: There is [id number] colonic diverticulosis without CT evidence of acute diverticulitis. No bowel obstruction is seen. The appendix is not identified and reported surgically absent. Peritoneum: There is no intraperitoneal free air or abdominal ascites. There is a fat-containing umbilical hernia. Lymphadenopathy: None. Pelvic viscera: There are nonspecific foci of gas within the bladder lumen. The bladder is otherwise normal as imaged. The uterus is surgically absent. No adnexal lesion is seen. Skeletal structures: The skeletal structures are osteopenic. There is mild to moderate lumbosacral spondylosis. No lytic or blastic lesions are seen. 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 A benign-appearing sclerotic lesion in the right femoral neck is unchanged. IMPRESSION: 1. No acute infectious or inflammatory findings are identified in the abdomen or pelvis. 2. An infrarenal abdominal aortic aneurysm measures 3.8 x 4.3 cm. This is similar to previous. 3. The pancreas is atrophic with pancreas divisum and significant dilatation of the pancreatic duct. This is also unchanged. 4. Emphysema. 5. Colonic diverticulosis without CT evidence of acute diverticulitis. 6. Additional findings as above. ACT 112: Negative or not required by law. Electronically signed by: Koby Wallace M.D. 04/30/2024 10:48 AM Chest X-Ray 04/30/24 09:16 XR chest 1V portable HISTORY: 74 years-old Female cp acute chest pain COMPARISON: 02/27/2024 TECHNIQUE: AP view of the chest FINDINGS: Emphysema with chronic interstitial coarsening. Subcentimeter calcified granulomata of the right lung base. No pneumothorax, large pleural effusion, or overt pulmonary edema or lobar airspace consolidation. Resolution of the previously noted left lower lobe collapse. IMPRESSION: Emphysema without acute process. ACT 112: Negative or not required by law. The above report was generated using voice recognition software. It may contain grammatical, syntax or spelling errors. Electronically signed by: Israel Sharma M.D. 04/30/2024 10:08 AM Discharge Plan Visit Data Chief Complaint: Abdominal Pain ED Provider: Elliot Loja Discharge Problem: Sepsis, Abdominal pain, Hypomagnesemia, Anemia Discharge Instructions Interventions: ED Discharge Assessment Last Done: 04/30/24 14:49 Forms Stand Alone Forms: [facility] Prescriptions Prescriptions: No Action aspirin [Uri Low Dose Aspirin] 81 mg Tablet,Delayed Release (Dr/Ec) 81 mg PO QAM Hold Instructions: Resume on 11/28/23. hold until seen by primary care Rx Instructions: otc, unable to verify 04/30/24 albuterol sulfate [Ventolin HFA] 90 mcg/actuation HFA aerosol inhaler 2 puff INHALATION Q6 PRN (Reason: Shortness Of Breath Or Wheezing) Rx Instructions: last filled jul 2023 metformin 1,000 mg tablet 1,000 mg PO BID Rx Instructions: last filled february 10, 2024 (DME) [employer] test strips Strip See Rx Instructions .ROUTE .MEDSUPPLY Qty: 50 3RF Rx Instructions: test blood sugar 1-2 times per day losartan 50 mg tablet 50 mg PO QAM folic acid 1 mg tablet 1 mg PO QAM rosuvastatin 20 mg tablet 20 mg PO QAM budesonide-formoterol 160-4.5 mcg/actuation HFA aerosol inhaler 2 puff INHALATION BID Rx Instructions: last filled nov 2023 Spiriva Respimat 1.25 mcg/actuation mist 2 puff inhalation DAILY Qty: 4 0RF Rx Instructions: last filled in November 2023 pantoprazole 40 mg Tablet,Delayed Release (Dr/Ec) 40 mg PO BID Qty: 60 0RF Rx Instructions: qam ipratropium-albuterol 0.5 mg-3 mg(2.5 mg base)/3 mL solution for nebulization 3 ml inhalation Q4H PRN (Reason: shortness of breath) Qty: 90 0RF Rx Instructions: last filled Nov 2022 until breathing returns to target peak flow/parameters diltiazem HCl 180 mg Capsule,Extended Release 24hr 180 mg PO QAM Qty: 30 5RF guaifenesin [Mucinex] 600 mg tablet extended release 12hr 1,200 mg PO Q12 PRN (Reason: Congestion) Rx Instructions: otc, unable to verify 04/30/24 formoterol fumarate [Perforomist] 20 mcg/2 mL Solution For Nebulization 20 mcg NEB BIDR Qty: 60 0RF cyanocobalamin (vitamin B-12) 500 mcg Tablet 1,000 mcg PO QAM Qty: 30 0RF ferrous sulfate 325 mg (65 mg iron) Tablet 325 mg PO BID insulin lispro [Humalog KwikPen Insulin] 100 unit/mL insulin pen 8 unit SUBCUT TID Rx Instructions: before meals sodium chloride 7 % solution for nebulization 1 inh INHALATION BID PRN (Reason: SOB/WHEEZING) insulin glargine [Lantus Solostar U-100 Insulin] 100 unit/mL (3 mL) insulin pen 20 unit SUBCUT BID furosemide 20 mg tablet 20 mg PO DAILY PRN (Reason: Edema) oxycodone 5 mg tablet 10 mg PO TID PRN (Reason: Pain) metoprolol succinate 50 mg tablet extended release 24 hr 50 mg PO UD Rx Instructions: 50 MG BID last filled January 22 Eliquis 5 mg tablet 5 mg PO UD Rx Instructions: 5 MG PO BID last filled 01/09/24 fluticasone furoate-vilanterol [Breo Ellipta] 100-25 mcg/dose blister with device 1 inh INHALATION DIRECTED Referrals Referrals: Rosi Borges CRNP [Primary Care Provider] - Discharge Problem: Sepsis Qualifiers: Sepsis type: sepsis due to unspecified organism Sepsis acute organ dysfunction status: unspecified Qualified Code(s): A41.9 - Sepsis, unspecified organism Abdominal pain Qualifiers: Abdominal location: unspecified location Qualified Code(s): R10.9 - Unspecified abdominal pain Anemia Qualifiers: Anemia type: unspecified type Qualified Code(s): D64.9 - Anemia, unspecified
[2024-04-30 09:32] LABS: Basophils % (auto) 1.2 %; Eosinophils # (auto) 0.15 K/uL (0.00-0.50); Eosinophils % (auto) 1.8 %; Hematocrit (blood only) 32.3 % (37.0-47.0); Hemoglobin 9.5 g/dl (12.0-16.0); Immature Granulocytes # (auto) 0.12 K/uL (0.01-0.20); Immature Granulocytes % (auto) 1.4 %; Lymphocytes # (auto) 1.18 K/uL (1.20-3.40); Lymphocytes % (auto) 14.2 %; Mean Corpuscular Hgb Conc 29.4 g/dL (32.0-36.0); Mean Corpuscular Volume 88.5 fL (80.0-100.0); Mean Platelet Volume 9.6 fL (9.4-12.4); Monocytes # (auto) 0.48 K/uL (0.11-0.59); Monocytes % (auto) 5.8 %; Neutrophils # (auto) 6.29 K/uL (1.40-6.50); Neutrophils % (auto) 75.6 %; Platelet Count 589 K/uL (130-400); RDW Coefficient of Variation 18.2 % (11.5-14.5); Red Blood Count 3.65 M/uL (4.20-5.40); White Blood Count 8.32 K/ul (4.8-10.8)
[2024-04-30] MEDS: SODIUM CHLORIDE 0.9% 1,000 ML IV ONE (09:34)
[2024-04-30] MEDS: ONDANSETRON INJ 2 MG/ML 2 ML VIAL IV STA (09:34)
[2024-04-30] MEDS: MoRPHine SULFATE 2 MG/ML CARP IV STA (09:34)
[2024-04-30 09:46] LABS: Base Excess VBG 6.9 mEq/L; HCO3 VBG 32 mmol/L; Oxygen Saturation VBG 82.9 %; PCO2 VBG 46 mmHg (38-50); PO2 VBG 48 mmHg; pH VBG 7.45 (7.36-7.41)
[2024-04-30 09:50] LABS: Albumin Globulin Ratio 1.4 (0.9-2); Albumin Level 3.5 gm/dl (3.4-5.0); BUN Creatinine Ratio 12.3 (10-20); Bilirubin,Total 0.2 mg/dl (0.2-1.0); Est GFR (African American) 60.8 ml/min; Est GFR (Non-African American) 52.4 ml/min; Globulin 2.5 gm/dl (2.5-4.0); Potassium 3.4 mmol/L (3.5-5.1)
[2024-04-30 09:56] LABS: Troponin I High Sensitivity 9.2 pg/ml (0-14)
--- NOTE | 2024-04-30 10:09 | XRay Report ---
XR chest 1V portable HISTORY: 74 years-old Female cp acute chest pain COMPARISON: 02/27/2024 TECHNIQUE: AP view of the chest FINDINGS: Emphysema with chronic interstitial coarsening. Subcentimeter calcified granulomata of the right lung base. No pneumothorax, large pleural effusion, or overt pulmonary edema or lobar airspace consolidat ion. Resolution of the previously noted left lower lobe collapse. IMPRESSION: Emphysema without acute process. ACT 112: Negative or not required by law. The above report was generated using voice recognition software. It may contain grammatical, syntax o r spelling errors. Electronically signed by: Israel Sharma M.D. 04/30/2024 10:08 AM
[2024-04-30] MEDS: OPTIRAY 320 100ml IV ONE (10:19)
[2024-04-30 10:47] LABS: Adenovirus PCR Not Detected (NotDetected); Bordetella parapertussis PCR Not Detected (NotDetected); Bordetella pertussis PCR Not Detected (NotDetected); Chlamydia pneumoniae PCR Not Detected (NotDetected); Coronavirus 229E PCR Not Detected (NotDetected); Coronavirus CoV-2 (COVID19)PCR Not Detected (NotDetected); Coronavirus HKU1 PCR Not Detected (NotDetected); Coronavirus NL63 PCR Not Detected (NotDetected); Coronavirus OC43PCR Not Detected (NotDetected); Human Metapneumovirus PCR Not Detected (NotDetected); Influenza A PCR Not Detected (NotDetected); Influenza B PCR Not Detected (NotDetected); Mycoplasma pneumoniae PCR Not Detected (NotDetected); Parainfluenza Virus 1 PCR Not Detected (NotDetected); Parainfluenza Virus 2 PCR Not Detected (NotDetected); Parainfluenza Virus 3 PCR Not Detected (NotDetected); Parainfluenza Virus 4 PCR Not Detected (NotDetected); Respiratory Syncytial VirusPCR Not Detected (NotDetected); Rhinovirus/Enterovirus PCR Not Detected (NotDetected)
--- NOTE | 2024-04-30 10:50 | CT Scan Report ---
CT SCAN OF THE ABDOMEN AND PELVIS WITH IV CONTRAST CLINICAL HISTORY: Generalized abdominal pain. COMPARISON STUDY: Numerous prior abdominal CT scans, most recently dated 02/09/2024. TECHNIQUE: Following the IV administration of 94 cc of Optiray 320, CT scan of the abdomen and pelvi s is performed from the lung bases to the proximal femora. Images are reviewed in the axial, sagittal , and coronal planes. IV contrast was administered without complication. A dose lowering technique wa s utilized adhering to the principles of ALARA. CT DOSE: 680.78 mGy.cm FINDINGS: Lung bases: The heart is normal in size and without pericardial effusion. The coronary arteries and m itral annulus are densely calcified. Emphysematous change is noted. There are scattered calcified gra nulomas. There is bibasilar scarring/atelectasis. No airspace consolidation or pleural effusion is id entified. Liver: The contrast-enhanced liver is normal in size, contour, and attenuation. There is mild central intrahepatic biliary ductal dilatation. The hepatic veins and portal veins are patent. Gallbladder: Surgically absent noting clips in the gallbladder fossa. Spleen: Normal in size and attenuation. There are numerous calcified splenic granulomas. Pancreas: The pancreas is atrophic. There is diffuse dilatation of the pancreatic duct which measures up to 8 mm. This is similar to previous. Pancreas divisum is noted. Adrenal glands: Bilateral adrenal adenomas are unchanged and measure up to 13 mm. Kidneys: The contrast enhanced kidneys demonstrate mild cortical atrophy and without hydronephrosis. The kidneys enhance symmetrically. Scattered subcentimeter cortical hypodensities likely represent cy sts but are too small for definitive characterization. Abdominal vasculature: There is advanced atherosclerotic calcification and ectasia of the abdominal a sully. An infrarenal abdominal aortic aneurysm measures 3.8 x 4.3 cm (AP x transverse). Bowel: There is [id number] colonic diverticulosis without CT evidence of acute diverticulitis. No bowel obstruction is seen. The appendix is not identified and reported surgically absent. Peritoneum: There is no intraperitoneal free air or abdominal ascites. There is a fat-containing umbi lical hernia. Lymphadenopathy: None. Pelvic viscera: There are nonspecific foci of gas within the bladder lumen. The bladder is otherwise normal as imaged. The uterus is surgically absent. No adnexal lesion is seen. Skeletal structures: The skeletal structures are osteopenic. There is mild to moderate lumbosacral sp ondylosis. No lytic or blastic lesions are seen. 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 A benign-appearin g sclerotic lesion in the right femoral neck is unchanged. IMPRESSION: 1. No acute infectious or inflammatory findings are identified in the abdomen or pelvis. 2. An infrarenal abdominal aortic aneurysm measures 3.8 x 4.3 cm. This is similar to previous. 3. The pancreas is atrophic with pancreas divisum and significant dilatation of the pancreatic duct. This is also unchanged. 4. Emphysema. 5. Colonic diverticulosis without CT evidence of acute diverticulitis. 6. Additional findings as above. ACT 112: Negative or not required by law. Electronically signed by: Koby Wallace M.D. 04/30/2024 10:48 AM
[2024-04-30] MEDS ORDERED: VANCOMYCIN HCL 1,250 MG in SODIUM CHLORIDE 0.9% 500 ML IV ONE (10:55)
[2024-04-30] MEDS ORDERED: VANCOMYCIN CONSULT ACTIVE PRN (10:55)
--- NOTE | 2024-04-30 11:13 | History & Physical Report ---
Date of Service April 30, 2024 Assessment & Plan (1) Sepsis: Plan: Sepsis With fever, chills, Pro-Wilder over 100 highly suspect gram-negative bacteremia urine sample is pending. Procalcitonin is markedly elevated greater than 100 suspicious for gram-negative bacteremia, DDx also includes tickborne. She does not have urinary symptoms and Patient denies respiratory system/change in her chronic cough. Has diffuse bodyaches without localization, is diffusely tender at the chest, legs, thighs. She denies urinary symptoms including dysuria, polyuria, and anuria. She does have some epigastric discomfort without acute findings on CT and without bleeding. She does endorse that she had 2 ticks which she pulled out of her right calf this past week before she started to feel ill. Lyme, Anaplasma, Babesia testing is ordered. She does have a chronic intermittent transaminitis, she has not leukopenic or thrombocytopenic. Vancomycin discontinued, empiric Doxy continued 30 cc/kg sepsis recommendations 1905 cc. Patient has received 1600 cc to meet ideal body weight goal of 1568 while in the ER. Lactate repeat is pending Continue on empiric cefepime, vancomycin, Flagyl. 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 Blood pressure improved Blood cultures, UA, UCx pending Admit to PCU Chest x-ray is with emphysema no acute process, and specifically no evidence of either pneumonia or pulmonary edema. Prior left lower lobe collapse has resolved Respiratory bio fire is negative CTA/P: No acute infectious or inflammatory findings. 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 No evidence of infection or ischemia High sensitive troponin is normal VBG 7.45/46/48/32 (2) COPD, very severe: Plan: Severe COPD, chronic hypoxic respiratory failure On baseline home 4 L oxygen Continue home inhalers Ongoing tobacco abuse, precontemplative and not interested in cessation. Patch ordered Titrate oxygen to goal 90% (3) HTN (hypertension): Plan: Hypertension Cardizem held for hypotension in ER Lasix held for hypotension, sepsis Losartan held for hypotension, no TATY is present on admission Metoprolol continued due to risk of beta-yao withdrawal however dose reduced for borderline hypotension. Resume at 50 mg twice daily if BP normalizes. Hold if SBP is less than 100 (4) Diabetes type 2, uncontrolled: Plan: Type II DM Glipizide/metformin held Basal bolus insulin while inpatient (5) Current smoker: Plan: Ongoing tobacco abuse Precontemplative Patch ordered (6) Afib: Plan: Paroxysmal Sinus on admission Eliquis continued Beta-yao continued but dose reduced as noted Plan DVT prophylaxis: Anticoagulated Disposition: PCU CODE STATUS: Full code Diet: DM 2/heart healthy History of Present Illness Primary Care Provider: BRET Espinoza Daniella is a 74-year-old female with past medical history o severe COPD with chronic respiratory failure on 4 L baseline home oxygen, CHF, A-fib, ongoing tobacco use, uncontrolled diabetes, and chronic pain syndrome who was admitted to the hospital 02/09 - 02/12, and again /03/01/24 for acute hypoxic respiratory failure with COPD exacerbation and possible superimposed aspiration pneumonia who requested to leave AMA at last discharge who presents with fever, chills, global body aches, and who has a procalcitonin of over 100 with a lactate of 5.5. borderline hypotensive at 102/64, blood pressure improved on reassessment. Typically is hypertensive. Patient is seen at the bedside. She repeats for the last week very poorly . She feels she has been more achy all over in her muscles and chest, and has had much more nausea and stomach upset/tenderness. She reports her symptoms have worsened in the last 2 days and she has had chills and sweats at night. She has not had any urinary symptoms and denies polyuria/dysuria/oliguria/anuria. She has had midepigastric tenderness diffusely but denies vomiting. She endorses chest pain, this is reproducible on palpation. Denies chest pain with exertion but feels that her aches do generally worsen with movement. Denies joint swelling. Endorses 2 ticks that bit her and she pulled out of her right calf. She has a chronic cough and chronic shortness of breath, she does not feel either of these is changed. Sputum is generally white when she produces it and has not changed in the last week. She does not feel more short of breath than normal, and continues on her baseline 4 L of nasal cannula oxygen. Ongoing tobacco abuse, expresses that she does not have any interest in quitting but also does not feel she needs a nicotine patch as "I do not really think about it in the hospital " Medical History: Reviewed Medications: Reviewed Surgical History: Reviewed Family history: Reviewed Allergies: Reviewed Social History: Ongoing tobacco use. Denies etoh use Code Status: FUll Allergies Allergy/AdvReac Type Severity Reaction Status Date / Time diflunisal AdvReac Intermediate HEART RACES Verified 02/19/24 22:58 Home Medications Medication Instructions Recorded Confirmed Type albuterol sulfate 90 mcg/actuation 2 puff inhalation Q6 PRN Shortness 08/28/20 02/19/24 History aerosol inhaler (Ventolin HFA) Of Breath Or Wheezing aspirin 81 mg tablet,delayed 81 mg PO QAM 08/28/20 02/19/24 History release (Uri Low Dose Aspirin) metformin 1,000 mg tablet 1,000 mg PO BID 08/28/20 02/19/24 History blood sugar diagnostic (OneTouch #50 ea 06/02/21 02/10/24 Rx Verio test strips) folic acid 1 mg tablet 1 mg PO QAM 03/24/22 02/19/24 History losartan 50 mg tablet 50 mg PO QAM 03/24/22 02/19/24 History ipratropium 0.5 mg-albuterol 3 mg 3 ml inhalation Q4H PRN shortness 12/13/22 02/19/24 Rx (2.5 mg base)/3 mL nebulization of breath #90 mL soln rosuvastatin 20 mg tablet 20 mg PO DAILY 08/23/23 02/19/24 History apixaban 5 mg tablet (Eliquis) 5 mg PO BID #60 tabs 09/10/23 02/19/24 Rx diltiazem HCl 180 mg 180 mg PO QAM #30 caps 09/10/23 02/19/24 Rx capsule,extended release 24 hr glipizide 5 mg tablet 5 mg PO DAILY #30 tabs 09/10/23 02/19/24 Rx metoprolol succinate 50 mg 50 mg PO BID #60 tabs 09/10/23 02/19/24 Rx tablet,extended release 24 hr oxycodone 5 mg tablet 5 mg PO TID PRN Pain #30 tabs 09/10/23 02/19/24 Rx budesonide-formoterol HFA 160 2 puff inhalation BID 09/21/23 02/19/24 History mcg-4.5 mcg/actuation aerosol inhaler pantoprazole 40 mg tablet,delayed 40 mg PO BID #60 tabs 11/24/23 02/19/24 Rx release tiotropium bromide 1.25 2 puff inhalation DAILY #4 grams 11/24/23 02/19/24 Rx mcg/actuation mist for inhalation (Spiriva Respimat) guaifenesin 600 mg tablet, 1,200 mg PO Q12 PRN Congestion 02/10/24 02/19/24 History extended release 12 hr (Mucinex) cyanocobalamin (vitamin B-12) 500 1,000 mcg (2 x 500 mcg) PO QAM #30 02/13/24 02/19/24 Rx mcg tablet tabs formoterol fumarate 20 mcg/2 mL 20 mcg (2 mL) NEB BIDR #60 mL 02/13/24 02/19/24 Rx solution for nebulization (Perforomist) furosemide 20 mg tablet 40 mg (2 x 20 mg) PO DAILY Edema 02/13/24 02/19/24 Rx #60 tabs ferrous sulfate 220 mg (44 mg 0 mg PO BID 02/19/24 02/19/24 History iron)/5 mL oral elixir Past Med/Surg History Problem List (Updated 03/15/24 @ 00:09 by Background Atul) Tobacco abuse Acute on chronic respiratory failure with hypoxia Left lower lobe pneumonia CHF (congestive heart failure) (Acute) Acute UTI (urinary tract infection) (Acute) Pleural effusion (Acute) Shortness of breath (Acute) Abdominal pain (Acute) Acute hypoxemic respiratory failure (Acute) Hypomagnesemia (Acute) COPD with acute exacerbation (Acute) Pleural effusion (Acute) CHF (congestive heart failure) (Acute) Pneumonia (Acute) Acute on chronic respiratory failure with hypoxia and hypercapnia (Acute) Ambulatory dysfunction Current smoker Pneumonia (Acute) Acute respiratory distress (Acute) Altered mental status (Acute) Tachycardia (Acute) Hypomagnesemia (Acute) Sepsis (Acute) Metabolic encephalopathy Hyperglycemia Acute exacerbation of chronic obstructive pulmonary disease (Acute) Hypoxia (Acute) Afib COPD, very severe Encounter for hospice care discussion Advanced care planning/counseling discussion Palliative care by specialist Anxiety about health Weakness generalized Dyspnea and respiratory abnormalities Atrial fibrillation with rapid ventricular response (Acute) Dilated pancreatic duct Positive blood culture Abdominal pain Abdominal pain Lower extremity edema Respiratory distress (Acute) Hypertension (Acute) COPD exacerbation (Acute) Respiratory acidosis (Acute) Elevated lactic acid level (Acute) Tachycardia (Acute) Hypomagnesemia (Acute) Acute bronchitis with chronic obstructive pulmonary disease (COPD) SOB (shortness of breath) (Acute) Anemia (Acute) Chest tightness (Acute) UTI (urinary tract infection) Chronic pain syndrome SOB (shortness of breath) (Acute) COPD exacerbation (Acute) Dizziness (Acute) Acute UTI (Acute) Hypomagnesemia (Acute) Anemia B12 deficiency COPD exacerbation (Acute) Hyperlipidemia Dysphagia Chronic kidney disease HTN (hypertension) Thrombocythemia Chronic low back pain (Chronic) Diaphragmatic hernia (Chronic 10/31/11) Overweight (BMI 25.0-29.9) (Chronic) AAA (abdominal aortic aneurysm) Left peroneal nerve palsy (Chronic) History of knee replacement (Acute) Knee pain, left (Acute) Right knee pain (Acute) Diabetes type 2, uncontrolled (Acute) COPD (chronic obstructive pulmonary disease) (Acute) Medical History (Updated 03/15/24 @ 00:09 by Dayanna Pollard) Acute confusion Severe muscle deconditioning COPD exacerbation Respiratory failure Hyperkalemia Acute hypercapnic respiratory failure TATY (acute kidney injury) AMS (altered mental status) Syncope Acute UTI Acute hypotension Chronic kidney disease, stage 3a Acute kidney injury Acute exacerbation of chronic low back pain Candidiasis of mouth and esophagus DVT prophylaxis Diabetes mellitus COPD (chronic obstructive pulmonary disease) Hypertension Hyperlipidemia Acute on chronic respiratory failure with hypoxia and hypercapnia Family History Other Family history non-contributory Social History Smoking Status: Current every day smoker Tobacco Type: Cigarettes Age Started Using Tobacco: 32; Cigarettes Per Day: 1/2 ppd; Second Hand Exposure: Yes; Do You Dip or Chew Tobacco: No; Hx Alcohol Use: No Hx Substance Use: No Preferred Language: [place]er Communication Ability: Effective Carpet Layer Required: No Beliefs That Will Affect Care: None marital status: Current Living Situation: Spouse Current Living Situation Comment: Lives at home with How many Children do You have: 3 Feels Safe at Home: Yes Assistive Devices: BiPap, Oxygen - Continuous and Walker Physical Exam Physical Exam: General: A&Ox3. NAD. Cooperative. Does not appear toxic at the bedside HEENT: Atraumatic, normocephalic. Vision and hearing grossly intact Pulm: Diminished, but no wheezing at time of admission. No rales/rhonchi symmetrical chest rise. No increased work of breathing. No respiratory distress. Cardiac: RRR, -mrg. Radial pulses intact and symmetrical. Abdominal: Diffusely tender primarily in the epigastrium, but without rebound/guarding/rigidity. Extremities: Diffusely tender. Right calf with 2 punctate scabs at site of prior tick bites, no erythema migrans is appreciated Results & Data Results & Data Vital Signs (Past 12 Hours) Vital Signs Temp Pulse Resp BP Pulse Ox O2 Del Method O2 Flow Rate 04/30/24 10:06 86 29 H 04/30/24 09:41 107 H 23 100 Nasal Cannula 4 04/30/24 09:36 101 H 27 H 102/64 99 04/30/24 09:24 100 H 20 100 04/30/24 09:03 107 H 26 H 116/70 04/30/24 09:02 107 H 04/30/24 08:54 37.7 C H 105 H 23 116/70 100 Nasal Cannula 4 PG Care Time/CCT Total # of Minutes Spent Total Time Spent with Patient: Total time spent is greater than 50% in coordination of care (as documented) at patient's floor/unit and/or counseling patient: Coding Level of Care Code 32861 INT INP/OBS CARE 3/75MIN Diagnoses Sepsis A41.9 Sepsis acute organ dysfunction status: unspecified Sepsis type: sepsis due to unspecified organism COPD, very severe J44.9 HTN (hypertension) I10 Diabetes type 2, uncontrolled E11.65 Glycemic state: with hyperglycemia Current smoker F17.200 Afib I48.91 (1) Sepsis Sepsis acute organ dysfunction status: unspecified Sepsis type: sepsis due to unspecified organism Qualified Code(s): A41.9 - Sepsis, unspecified organism (4) Diabetes type 2, uncontrolled Glycemic state: with hyperglycemia Qualified Code(s): E11.65 - Type 2 diabetes mellitus with hyperglycemia
[2024-04-30] MEDS ORDERED: CARBOHYDRATES FOR HYPOGLYCEMIA PO PRN (11:19)
[2024-04-30] MEDS ORDERED: GLUCOSE 40% GEL 15 GM TUBE PO PRN (11:19)
[2024-04-30] MEDS ORDERED: GLUCAGON FOR INJ 1 MG VIAL SQ PRN (11:19)
[2024-04-30] MEDS ORDERED: GLUCOSE 10 TAB/TUBE PO PRN (11:19)
[2024-04-30] MEDS ORDERED: DEXTROSE 50% 50 ML SYRINGE IV PRN (11:19)
[2024-04-30] MEDS: PIPERACILLIN/TAZOBACTAM 4.5 GM/100 ML BAG IV ONE (11:54)
[2024-04-30 12:09] LABS: Appearance Urine Clear (Clear); Bacteria Urine Automated 4+ (None Seen); Bilirubin Urine Negative (Negative); Blood Urine Negative (Negative); Cast Urine Automated 0-2 /lpf (0-2); Color Urine Yellow; Epithelial Cell Urine Auto 0-2 /hpf (0-2); Glucose Urine UA Negative (Negative); Ketones Urine Negative (Negative); Leukocyte Esterase Urine Negative (Negative); Nitrite Urine Positive (Negative); Protein Urine 1+ (Negative); RBC Urine Automated 0-2 /hpf (0-2); Specific Gravity Urine 1.033 (1.000-1.030); Urobilinogen Urine Negative (Negative); WBC Urine Automated 0-5 /hpf (0-5); pH Urine 8.5 (4.5-7.5)
[2024-04-30] MEDS: POTASSIUM CHLORIDE CRTAB 20 MEQ TABCR PO STA (14:11)
[2024-04-30] MEDS: SODIUM CHLORIDE 0.9% 600 ML IV ONE (14:12)
[2024-04-30] MEDS: DOXYCYCLINE HYCLATE 100 MG in D5W MINI-B 100 ML (Q12H) IV ONE (14:20)
[2024-04-30] MEDS: LACTATED RINGER'S 500 ML IV ONE (14:20)
[2024-04-30] MEDS: INSULIN ASPART PER UNIT CHARGE SC SCH (14:22)
[2024-04-30] MEDS: MAGNESIUM SULFATE / D5W 1 GM/100 ML BAG IV SCH (14:23)
[2024-04-30] MEDS ORDERED: ONDANSETRON INJ 2 MG/ML 2 ML VIAL IV PRN (15:41)
[2024-04-30] MEDS ORDERED: ACETAMINOPHEN 325 MG TAB PO PRN (15:41)
[2024-04-30] MEDS: oxyCODONE HCL IR 5 MG TAB (IMMEDIATE RELEASE) PO PRN (15:59)
[2024-04-30] MEDS: ALBUT/IPRATROP 3MG/0.5MG NEB 3 ML VIAL INH PRN (16:25)
[2024-04-30] MEDS: CEFEPIME 2,000 MG in SYRINGE 0 ML IV SCH (17:19)
[2024-04-30] MEDS: metroNIDAZOLE 500 MG/100 ML BAG IV SCH (17:20)
[2024-04-30] MEDS: PANTOprazole 40 MG TAB PO SCH (19:25)
[2024-04-30] MEDS: MAGNESIUM OXIDE 400 MG TAB PO SCH (19:26)
[2024-04-30] MEDS: APIXABAN 5 MG TABLET PO SCH (19:26)
[2024-04-30] MEDS: METOPROLOL SUCC 25MG EXT REL TAB PO SCH (19:33)
[2024-04-30] MEDS: FORMOTEROL 20 MCG/2 ML VIAL NEB SCH (19:46)
[2024-04-30] MEDS: LANTUS PER UNIT CHARGE SQ SCH (20:19)
[2024-04-30] MEDS: LACTATED RINGER'S 1,000 ML IV SCH (21:03)
[2024-05-01] MEDS: oxyCODONE HCL IR 5 MG TAB (IMMEDIATE RELEASE) PO PRN (00:05)
[2024-05-01] MEDS: DOXYCYCLINE HYCLATE 100 MG in DEXTROSE 5% MINI-B 100 ML IV SCH (01:12)
--- NOTE | 2024-05-01 05:51 | Electrocardiogram Report ---
Test Reason : Blood Pressure : / mmHG Vent. Rate : 107 BPM Atrial Rate : 107 BPM P-R Int : 134 ms QRS Dur : 078 ms QT Int : 362 ms P-R-T Axes : 052 -07 070 degrees QTc Int : 483 ms Sinus tachycardia with Premature supraventricular complexes Low voltage QRS Inferior infarct , age undetermined Abnormal ECG When compared with ECG of 26-FEB-2024 09:55, Premature supraventricular complexes are now Present Vent. rate has increased BY 43 BPM Inferior infarct is now Present QT has lengthened Confirmed by Mickey Lobato ([id number]) on 05/01/2024 5:51:11 AM Referred By: REFERRED SELF Confirmed By:Mickey Lobato
[2024-05-01 06:29] LABS: Basophils # (auto) 0.08 K/uL (0.00-0.20); Basophils % (auto) 1.2 %; Eosinophils # (auto) 0.43 K/uL (0.00-0.50); Eosinophils % (auto) 6.5 %; Hematocrit (blood only) 27.5 % (37.0-47.0); Immature Granulocytes # (auto) 0.07 K/uL (0.01-0.20); Immature Granulocytes % (auto) 1.1 %; Lymphocytes # (auto) 1.18 K/uL (1.20-3.40); Lymphocytes % (auto) 17.9 %; Mean Corpuscular Hgb Conc 29.1 g/dL (32.0-36.0); Mean Corpuscular Volume 89.3 fL (80.0-100.0); Mean Platelet Volume 9.6 fL (9.4-12.4); Monocytes # (auto) 0.49 K/uL (0.11-0.59); Monocytes % (auto) 7.4 %; Neutrophils # (auto) 4.35 K/uL (1.40-6.50); Neutrophils % (auto) 65.9 %; Platelet Count 468 K/uL (130-400); RDW Coefficient of Variation 17.8 % (11.5-14.5); RDW Standard Deviation 57.9 fL (36.4-46.3); Red Blood Count 3.08 M/uL (4.20-5.40)
[2024-05-01 06:39] LABS: Albumin Globulin Ratio 1.2 (0.9-2); Albumin Level 2.7 gm/dl (3.4-5.0); BUN Creatinine Ratio 10.6 (10-20); Bilirubin,Total 0.2 mg/dl (0.2-1.0); Creatinine Clr Calc Pharmacy 40.4 ml/min; Est GFR (African American) 62.2 ml/min; Est GFR (Non-African American) 53.6 ml/min; Globulin 2.2 gm/dl (2.5-4.0); Magnesium 1.7 mg/dl (1.7-2.4); Potassium 4.8 mmol/L (3.5-5.1); Total Protein 4.9 gm/dl (6.0-8.3)
[2024-05-01] MEDS: FOLIC ACID 1 MG TAB PO SCH (08:20)
[2024-05-01] MEDS: ROSUVASTATIN CALCIUM 20 MG TAB PO SCH (08:20)
[2024-05-01] MEDS: FLUTICASONE/VILANTEROL 100/25MCG 14 PUFFS/INHALER INH SCH (08:21)
[2024-05-01] MEDS: ASPIRIN 81 MG ECTAB PO SCH (08:21)
[2024-05-01] MEDS: UMECLIDINIUM BROMIDE 62.5MCG/BLISTER 7 PUFFS/INHALER INH SCH (08:21)
--- NOTE | 2024-05-01 09:37 | Hospitalist Progress Note ---
Date of Service May 01, 2024 Assessment & Plan (1) Sepsis: Plan: Sepsis suspect gram-negative bacteremia urine sample with gram negative. no intra abdominal changes on CT She does endorse that she had 2 ticks empiric Doxy continued cefepime, vancomycin, Flagyl. 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 Chest x-ray is with emphysema no acute process, and specifically no evidence of either pneumonia or pulmonary edema. Prior left lower lobe collapse has resolved Respiratory bio fire is negative CTA/P: No acute infectious or inflammatory findings. 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 No evidence of infection or ischemia High sensitive troponin is normal (2) COPD, very severe: Plan: Severe COPD, chronic hypoxic respiratory failure On baseline home 4 L oxygen Continue home inhalers Ongoing tobacco abuse, precontemplative and not interested in cessation. Patch ordered Titrate oxygen to goal 90% (3) HTN (hypertension): Plan: Hypertension Cardizem held for hypotension in ER Lasix held for hypotension, sepsis Losartan held for hypotension, no TATY is present on admission Metoprolol continued due to risk of beta-yao withdrawal however dose reduced for borderline hypotension. Resume at 50 mg twice daily if BP normalizes. Hold if SBP is less than 100 (4) Diabetes type 2, uncontrolled: Plan: Type II DM Glipizide/metformin held Basal bolus insulin while inpatient (5) Current smoker: Plan: Ongoing tobacco abuse, cessation counselling given Precontemplative Patch ordered (6) Afib: Plan: Paroxysmal Sinus on admission Eliquis continued Beta-yao continued but dose reduced as noted Plan DVT prophylaxis: Anticoagulated diffuse pain will add some prn tramadol CODE STATUS: Full code Diet: DM 2/heart healthy Admission and Anticipated Discharge Date Admission Date: April 30, 2024 Subjective pt States she feels less short of breath but has pain all over, states this is chronic no cough no chest pain Physical Exam Physical Exam: Patient looks much older than stated age Mildly tachypneic at rest but able to speak in full sentences Card exam is regular Lungs have extremely poor air movement Extremities without edema Results & Data Results & Data Vital Signs (Past 12 Hours) Vital Signs Temp Pulse Pulse Resp BP Pulse Ox O2 Del Method 05/01/24 08:00 98.2 F 78 20 136/77 96 Nasal Cannula 05/01/24 07:28 Nasal Cannula 05/01/24 07:27 78 16 97 Nasal Cannula 05/01/24 07:02 71 05/01/24 03:07 98.2 F 66 18 147/65 H 98 Nasal Cannula 04/30/24 23:13 72 04/30/24 23:03 98.6 F 76 18 150/69 H 98 Nasal Cannula O2 Flow Rate 05/01/24 08:00 4 05/01/24 07:28 4 05/01/24 07:27 4 05/01/24 07:02 05/01/24 03:07 4 04/30/24 23:13 04/30/24 23:03 4 Laboratory Results review cbc review chemistry PG Care Time/CCT Total # of Minutes Spent Total Time Spent with Patient: Total time spent is greater than 50% in coordination of care (as documented) at patient's floor/unit and/or counseling patient: Coding Level of Care Code 24541 SUB INP/OBS CARE 2/35MIN Diagnoses Sepsis A41.9 Sepsis acute organ dysfunction status: unspecified Sepsis type: sepsis due to unspecified organism COPD, very severe J44.9 HTN (hypertension) I10 Diabetes type 2, uncontrolled E11.65 Glycemic state: with hyperglycemia Current smoker F17.200 Afib I48.91 (1) Sepsis Sepsis acute organ dysfunction status: unspecified Sepsis type: sepsis due to unspecified organism Qualified Code(s): A41.9 - Sepsis, unspecified organism (4) Diabetes type 2, uncontrolled Glycemic state: with hyperglycemia Qualified Code(s): E11.65 - Type 2 diabetes mellitus with hyperglycemia
[2024-05-01 10:55] LABS: A calco-baum cmplx NotReported Not Detected (NotDetected); Bact fragilis Not Reported Not Detected (NotDetected); Blood Culture Id Panel See PCR Comment (NotDetected); C auris Not Reported Not Detected (NotDetected); Calbicans Not Reported Not Detected (NotDetected); Candida glabrata Not Reported Not Detected (NotDetected); Candida krusei Not Reported Not Detected (NotDetected); Cneoformans/gatti Not Reported Not Detected (NotDetected); Cparapsilosis Not Reported Not Detected (NotDetected); E cloacae compx Not Reported Not Detected (NotDetected); Efaecalis Not Reported Not Detected (NotDetected); Efaecium Not Reported Not Detected (NotDetected); Enterobacterales Not Reported Not Detected (NotDetected); Escherichia coli Not Reported Not Detected (NotDetected); H influenzae Not Reported Not Detected (NotDetected); K aerogenes Not Reported Not Detected (NotDetected); Koxytoca Not Reported Not Detected (NotDetected); Kpneumoniae grp Not Reported Not Detected (NotDetected); Lmonocyt Not Reported Not Detected (NotDetected); N meningitidis Not Reported Not Detected (NotDetected); P aeruginosa Not Reported Not Detected (NotDetected); Proteus spp Not Reported Not Detected (NotDetected); Salmonella spp Not Reported Not Detected (NotDetected); Smarcescens Not Reported Not Detected (NotDetected); Staph lugdunensis Not Reported Not Detected (NotDetected); Staph spp. Not Reported DETECTED (NotDetected); Staphaureus Not Reported Not Detected (NotDetected); Staphepi Not Reported Not Detected (NotDetected); Stenmaltophilia Not Reported Not Detected (NotDetected); Strep agal(GrpB) Not Reported Not Detected (NotDetected); Strep pneum Not Reported Not Detected (NotDetected); Strep pyog (GrpA) Not Reported Not Detected (NotDetected); Strep spp Not Reported Not Detected (NotDetected)
[2024-05-01 11:27] LABS: Staphylococcus spp. DETECTED (NotDetected)
[2024-05-01] MEDS ORDERED: traMADol HCL 50 MG TABLET PO PRN (16:00)
[2024-05-02 07:01] LABS: Basophils # (auto) 0.06 K/uL (0.00-0.20); Basophils % (auto) 0.9 %; Eosinophils % (auto) 7.8 %; Hemoglobin 7.8 g/dl (12.0-16.0); Immature Granulocytes # (auto) 0.07 K/uL (0.01-0.20); Immature Granulocytes % (auto) 1.1 %; Lymphocytes # (auto) 1.15 K/uL (1.20-3.40); Mean Corpuscular Hemoglobin 26.2 pg (25.0-34.0); Mean Corpuscular Hgb Conc 28.9 g/dL (32.0-36.0); Mean Corpuscular Volume 90.6 fL (80.0-100.0); Mean Platelet Volume 9.5 fL (9.4-12.4); Monocytes # (auto) 0.43 K/uL (0.11-0.59); Monocytes % (auto) 6.7 %; Neutrophils # (auto) 4.18 K/uL (1.40-6.50); Neutrophils % (auto) 65.5 %; Platelet Count 450 K/uL (130-400); RDW Standard Deviation 59.7 fL (36.4-46.3); Red Blood Count 2.98 M/uL (4.20-5.40); White Blood Count 6.39 K/ul (4.8-10.8)
[2024-05-02 07:19] LABS: Albumin Globulin Ratio 1.2 (0.9-2); Albumin Level 2.6 gm/dl (3.4-5.0); BUN Creatinine Ratio 17.1 (10-20); Bilirubin,Total 0.2 mg/dl (0.2-1.0); Calcium 8.1 mg/dl (8.6-10.3); Est GFR (African American) 53.9 ml/min; Est GFR (Non-African American) 46.5 ml/min; Globulin 2.1 gm/dl (2.5-4.0); Total Protein 4.7 gm/dl (6.0-8.3)
[2024-05-02 07:36] LABS: Acanthocytes 1+; Polychromasia 1+
--- NOTE | 2024-05-02 07:48 | Hospitalist Progress Note ---
Date of Service May 02, 2024 Assessment & Plan (1) Sepsis: Plan: Sepsis suspect gram-negative bacteremia urine sample with gram negative. no intra abdominal changes on CT She does endorse that she had 2 ticks empiric Doxy continued cefepime, vancomycin, Flagyl. 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 Chest x-ray is with emphysema no acute process, and specifically no evidence of either pneumonia or pulmonary edema. Prior left lower lobe collapse has resolved Respiratory bio fire is negative CTA/P: No acute infectious or inflammatory findings. 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 No evidence of infection or ischemia High sensitive troponin is normal (2) COPD, very severe: Plan: Severe COPD, chronic hypoxic respiratory failure On baseline home 4 L oxygen Continue home inhalers Ongoing tobacco abuse, precontemplative and not interested in cessation. Patch ordered Titrate oxygen to goal 90% (3) HTN (hypertension): Plan: Hypertension Cardizem held for hypotension in ER Lasix held for hypotension, sepsis Losartan held for hypotension, no TATY is present on admission Metoprolol continued due to risk of beta-yao withdrawal however dose reduced for borderline hypotension. Resume at 50 mg twice daily if BP normalizes. Hold if SBP is less than 100 (4) Diabetes type 2, uncontrolled: Plan: Type II DM Glipizide/metformin held Basal bolus insulin while inpatient (5) Current smoker: Plan: Ongoing tobacco abuse, cessation counselling given Precontemplative Patch ordered (6) Afib: Plan: Paroxysmal Sinus on admission Eliquis hold due to anemia at this time pt with anemia, no clear blood loss, follow Beta-yao continued but dose reduced as noted Plan DVT prophylaxis: Anticoagulated diffuse pain did add some prn tramadol CODE STATUS: Full code Diet: DM 2/heart healthy Admission and Anticipated Discharge Date Admission Date: April 30, 2024 Results & Data Results & Data Vital Signs (Past 12 Hours) Vital Signs Temp Pulse Pulse Resp BP Pulse Ox O2 Del Method 05/02/24 07:29 70 22 98 Nasal Cannula 05/02/24 07:11 73 05/02/24 02:47 98.4 F 74 18 126/61 96 Nasal Cannula 06/08/24 23:08 98.1 F 77 18 150/69 H 98 Nasal Cannula 05/01/24 22:00 81 05/01/24 20:00 Nasal Cannula O2 Flow Rate 05/02/24 07:29 4 05/02/24 07:11 05/02/24 02:47 4 05/01/24 23:08 4 05/01/24 22:00 05/01/24 20:00 4 PG Care Time/CCT Total # of Minutes Spent Total Time Spent with Patient: Total time spent is greater than 50% in coordination of care (as documented) at patient's floor/unit and/or counseling patient: Coding Diagnoses Sepsis A41.9 Sepsis acute organ dysfunction status: unspecified Sepsis type: sepsis due to unspecified organism COPD, very severe J44.9 HTN (hypertension) I10 Diabetes type 2, uncontrolled E11.65 Glycemic state: with hyperglycemia Current smoker F17.200 Afib I48.91 (1) Sepsis Sepsis acute organ dysfunction status: unspecified Sepsis type: sepsis due to unspecified organism Qualified Code(s): A41.9 - Sepsis, unspecified organism (4) Diabetes type 2, uncontrolled Glycemic state: with hyperglycemia Qualified Code(s): E11.65 - Type 2 diabetes mellitus with hyperglycemia
[2024-05-02] MEDS: cefTRIAXone SODIUM 2,000 MG/50 ML BAG IV SCH (08:55)
--- NOTE | 2024-05-02 15:15 | Discharge Summary ---
Discharge Summary Date of Service May 02, 2024 Principal Dx & Hospital Course #1 = Principal Diagnosis (1) Sepsis: Sepsis secondary UTI POA E. coli resistant to quinolones seen on urine culture, blood culture show 104 coagulation negative staph suspect contaminant no intra abdominal changes on CT She does endorse that she had 2 ticks tickborne illness screen is negativePCR's are send out and pending Did receive ceftriaxone while inpatient will go home on amoxicillin high-dose Chest x-ray is with emphysema no acute process, and specifically no evidence of either pneumonia or pulmonary edema. Prior left lower lobe collapse has resolved Respiratory bio fire is negative CTA/P: No acute infectious or inflammatory findings. 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 No evidence of infection or ischemia High sensitive troponin is normal (2) COPD, very severe: Severe COPD, chronic hypoxic respiratory failure On baseline home 4 L oxygen Continue home inhalers Ongoing tobacco abuse, precontemplative and not interested in cessation. 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 She is high risk for readmission Admission HPI Per Admitting Provider Daniella is a 74-year-old female with past medical history o severe COPD with chronic respiratory failure on 4 L baseline home oxygen, CHF, A-fib, ongoing tobacco use, uncontrolled diabetes, and chronic pain syndrome who was admitted to the hospital 02/09 - 02/12, and again /03/01/24 for acute hypoxic respiratory failure with COPD exacerbation and possible superimposed aspiration pneumonia who requested to leave A at last discharge who presents with fever, chills, global body aches, and who has a procalcitonin of over 100 with a lactate of 5.5. borderline hypotensive at 102/64, blood pressure improved on reassessment. Typically is hypertensive. Patient is seen at the bedside. She repeats for the last week very poorly . She feels she has been more achy all over in her muscles and chest, and has had much more nausea and stomach upset/tenderness. She reports her symptoms have worsened in the last 2 days and she has had chills and sweats at night. She has not had any urinary symptoms and denies polyuria/dysuria/oliguria/anuri a. She has had midepigastric tenderness diffusely but denies vomiting. She endorses chest pain, this is reproducible on palpation. Denies chest pain with exertion but feels that her aches do generally worsen with movement. Denies joint swelling. Endorses 2 ticks that bit her and she pulled out of her right calf. She has a chronic cough and chronic shortness of breath, she does not feel eithe r of these is changed. Sputum is generally white when she produces it and has not changed in the last week. She does not feel more short of breath than normal, and continues on her baseline 4 L of nasal cannula oxygen. Ongoing tobacco abuse, expresses that she does not have any interest in quitting but also does not feel she needs a nicotine patch as "I do not really think about it in the hospital " Medical History: Reviewed Medications: Reviewed Surgical History: Reviewed Family history: Reviewed Allergies: Reviewed Social History: Ongoing tobacco use. Denies etoh use Code Status: FUll Discharge Exam Awake and appropriate patient asked to go home she states she feels back to her baseline. Will treat urinary infection Updated Medication List Medication Instructions Recorded Confirmed Type albuterol sulfate 90 mcg/actuation 2 puff inhalation Q6 PRN Shortness 08/28/20 04/30/24 History aerosol inhaler (Ventolin HFA) Of Breath Or Wheezing aspirin 81 mg tablet,delayed 81 mg PO QAM 08/28/20 04/30/24 History release (Uri Low Dose Aspirin) metformin 1,000 mg tablet 1,000 mg PO BID 08/28/20 04/30/24 History blood sugar diagnostic (Applied ProteomicsTouch #50 ea 06/02/21 02/10/24 Rx Verio test strips) folic acid 1 mg tablet 1 mg PO QAM 03/24/22 04/30/24 History losartan 50 mg tablet 50 mg PO QAM 03/24/22 04/30/24 History ipratropium 0.5 mg-albuterol 3 mg 3 ml inhalation Q4H PRN shortness 12/13/22 04/30/24 Rx (2.5 mg base)/3 mL nebulization of breath #90 mL soln rosuvastatin 20 mg tablet 20 mg PO QAM 08/23/23 04/30/24 History diltiazem HCl 180 mg 180 mg PO QAM #30 caps 09/10/23 04/30/24 Rx capsule,extended release 24 hr budesonide-formoterol HFA 160 2 puff inhalation BID 09/21/23 04/30/24 History mcg-4.5 mcg/actuation aerosol inhaler pantoprazole 40 mg tablet,delayed 40 mg PO BID #60 tabs 11/24/23 04/30/24 Rx release tiotropium bromide 1.25 2 puff inhalation DAILY #4 grams 11/24/23 04/30/24 Rx mcg/actuation mist for inhalation (Spiriva Respimat) guaifenesin 600 mg tablet, 1,200 mg PO Q12 PRN Congestion 02/10/24 04/30/24 History extended release 12 hr (Mucinex) cyanocobalamin (vitamin B-12) 500 1,000 mcg (2 x 500 mcg) PO QAM #30 02/13/24 04/30/24 Rx mcg tablet tabs formoterol fumarate 20 mcg/2 mL 20 mcg (2 mL) NEB BIDR #60 mL 02/13/24 04/30/24 Rx solution for nebulization (Perforomist) apixaban 5 mg tablet (Eliquis) 5 mg PO UD 04/30/24 04/30/24 History ferrous sulfate 325 mg (65 mg 325 mg PO BID 04/30/24 04/30/24 History iron) tablet fluticasone furoate 100 1 inh inhalation DIRECTED 04/30/24 04/30/24 History mcg-vilanterol 25 mcg/dose inhalation powder (Breo Ellipta) furosemide 20 mg tablet 20 mg PO DAILY PRN Edema 04/30/24 04/30/24 History insulin glargine 100 unit/mL (3 20 unit subcut BID 04/30/24 04/30/24 History mL) subcutaneous pen (Lantus Solostar U-100 Insulin) insulin lispro 100 unit/mL 8 unit subcut TID 04/30/24 04/30/24 History subcutaneous pen (Humalog KwikPen (U-100) Insulin) metoprolol succinate 50 mg 50 mg PO UD 04/30/24 04/30/24 History tablet,extended release 24 hr sodium chloride 7 % for 1 inh inhalation BID PRN 04/30/24 04/30/24 History nebulization SOB/WHEEZING amoxicillin 500 mg capsule 1,000 mg (2 x 500 mg) PO BID 5 05/02/24 Rx days #20 caps oxycodone 5 mg tablet 10 mg (2 x 5 mg) PO TID PRN Pain 05/02/24 Rx #10 tabs Hospital Stay Data Consultations 04/30/24 10:55 ED Decision to Admit Stat Diagnostic Imagining Performed 04/30/24 09:16 CT Abd and Pelvis [CT abd pelvis IV con only] Stat Pending Results Patient Have Any Pending Studies at Discharge: No Discharge Instructions Given to Patient (Per Discharging Provider) please complete all of your antibiotics and follow up with your primary care provider this week please watch your diabetes and sugar intake this week use your pain medicines carefully Total Time Total Time Spent Total Time Spent (In Minutes): It required greater than 30 minutes to prepare this patient for discharge. Coding Level of Care Code 64811 INP/OBS DISCH >30 MIN Diagnoses Sepsis A41.9 Sepsis acute organ dysfunction status: unspecified Sepsis type: sepsis due to unspecified organism COPD, very severe J44.9 HTN (hypertension) I10 Diabetes type 2, uncontrolled E11.65 Glycemic state: with hyperglycemia Current smoker F17.200 Afib I48.91
[2024-05-04 04:33] LABS: Babesia microti DNA Not Detected (Not Detected)
== END 2024-05-02 13:17 | disposition home health service (06) | DRG 872 ==
LOC: ED 08:54 → SUATTDRO 11:18 → INTOOBSV 11:18 → 2S 11:18

== ENCOUNTER 2024-05-23 17:02 | Observation (INO) ==
--- NOTE | 2024-05-23 17:34 | Emergency Department Note ---
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 She notes the symptoms have been present for the past several days. She denies any exertional chest pain or shortness of breath. Chronically on 4 L nasal cannula. She notes she was bit by 2 tics in the last week but was placed on doxycycline. She notes also that she has abdominal pain which has been present for quite some time but gradually worsening over the past several weeks. She has some dysuria, urgency, and frequency which is new. She feels very weak consequently came into the ER. ADDITIONAL HISTORY OBTAINED: Per HPI Chronic Medical/Social Conditions Affecting Care: Per HPI PAST MEDICAL HISTORY:See Below PAST SURGICAL HISTORY:See Below FAMILY HISTORY:See Below SOCIAL HISTORY:See Below HOME MEDICATIONS:See Below ALLERGIES:See Below VITALS:See Below PHYSICAL EXAMINATION: GENERAL: Sitting up in bed, alert, well appearing, well nourished, no distress, non-toxic EYE EXAM: normal conjunctiva. PERRL and EOM's grossly intact. OROPHARYNX: no exudate, no erythema, lips, buccal mucosa, and tongue normal and mucous membranes are moist NECK: supple, no nuchal rigidity, no adenopathy, non-tender LUNGS: Clear to auscultation. Normal chest wall mechanics HEART: no murmurs, S1 normal and S2 normal ABDOMEN: abdomen soft, non-tender, normo-active bowel sounds, no masses, no rebound or guarding. UPPER EXTREMITIES: upper extremities are grossly normal. LOWER EXTREMITIES: No pitting edema. calfs are equal B/L NEURO EXAM: Normal sensorium, cranial nerves II-XII grossly intact, normal speech, no gross weakness of arms, no gross weakness of legs. MEDICAL DECISION MAKING: Patient is a 74-year-old female who presents ER for above-stated complaint. IV was established blood work is obtained. Labs show no significant leukocytosis. Hemoglobin at 6.2 down from baseline of 9-8. Rectally heme positive performed at bedside by myself with nursing staff female RN. BMP with hypokalemia 3.0. Creatinine 1.3. LFTs bilirubin was unremarkable. Troponin was negative. Lipase unremarkable. UA with small amount of bacteria but only is 0-5 white cells not consistent with UTI. Lyme was negative. Patient was typed and crossed and given 2 units PRBCs while in the ER. She was consented by myself. Discussed case with the hospitalist for further evaluation management treatment. Consults/Care Managements Discussions: Per [facility] Triage Nursing notes reviewed. Limited review of prior medical records performed Vital Signs: reviewed and remarkable for stable vitals on 4 L nasal cannula Differential diagnosis: Infection, dehydration, metabolic abnormality, hypo/hyperglycemia, electrolyte disturbance, anemia, hypoxia, cardiac sources, intracerebral event, toxicologic, neurologic, as well as other pathologies. ER treatment provided: See below Diagnostics interpreted by me include EKG and cardiac monitoring as listed below: -Cardiac Monitoring: An order was placed for continuous cardiac monitoring. The monitor shows a rate of 90 with sinus rhythm. -ECG: Sinus rhythm rate 84 Normal axis PVCs QTc 491 -Laboratory studies:Interpreted by me as stated above in MDM and shown below. Imaging studies: Xrays: As interpreted by me: Portable AP upright 1 view the chest shows no focal Lutrate CTs show: CT abdomen pelvis as described above Procedures:none Critical Care: I have personally spent 32 minutes of critical care time in the direct management of this patient. This includes bedside care, interpretation of diagnostic studies, and testing, discussion with consultants, patient, and family members, and other required patient management activities. This 32 minutes is in excess of all separately billable procedures. Past Med/Surg History Problem List (Updated 05/23/24 @ 20:42 by Elliot Loja DO) Weakness (Acute) Hypokalemia (Acute) Symptomatic anemia (Acute) Acute GI bleeding (Acute) Tobacco abuse Acute on chronic respiratory failure with hypoxia Left lower lobe pneumonia CHF (congestive heart failure) (Acute) Acute UTI (urinary tract infection) (Acute) Pleural effusion (Acute) Shortness of breath (Acute) Abdominal pain (Acute) Acute hypoxemic respiratory failure (Acute) Hypomagnesemia (Acute) COPD with acute exacerbation (Acute) Pleural effusion (Acute) CHF (congestive heart failure) (Acute) Pneumonia (Acute) Acute on chronic respiratory failure with hypoxia and hypercapnia (Acute) Ambulatory dysfunction Current smoker Pneumonia (Acute) Acute respiratory distress (Acute) Altered mental status (Acute) Tachycardia (Acute) Hypomagnesemia (Acute) Metabolic encephalopathy Hyperglycemia Acute exacerbation of chronic obstructive pulmonary disease (Acute) Hypoxia (Acute) Afib COPD, very severe Encounter for hospice care discussion Advanced care planning/counseling discussion Palliative care by specialist Anxiety about health Weakness generalized Dyspnea and respiratory abnormalities Atrial fibrillation with rapid ventricular response (Acute) Dilated pancreatic duct Positive blood culture Abdominal pain Abdominal pain Lower extremity edema Respiratory distress (Acute) Hypertension (Acute) COPD exacerbation (Acute) Respiratory acidosis (Acute) Elevated lactic acid level (Acute) Tachycardia (Acute) Hypomagnesemia (Acute) Acute bronchitis with chronic obstructive pulmonary disease (COPD) SOB (shortness of breath) (Acute) Anemia (Acute) Chest tightness (Acute) UTI (urinary tract infection) Chronic pain syndrome SOB (shortness of breath) (Acute) COPD exacerbation (Acute) Dizziness (Acute) Acute UTI (Acute) Hypomagnesemia (Acute) Anemia B12 deficiency COPD exacerbation (Acute) Hyperlipidemia Dysphagia Chronic kidney disease HTN (hypertension) Thrombocythemia Chronic low back pain (Chronic) Diaphragmatic hernia (Chronic 10/31/11) Overweight (BMI 25.0-29.9) (Chronic) AAA (abdominal aortic aneurysm) Left peroneal nerve palsy (Chronic) History of knee replacement (Acute) Knee pain, left (Acute) Right knee pain (Acute) Diabetes type 2, uncontrolled (Acute) COPD (chronic obstructive pulmonary disease) (Acute) Medical History (Updated 05/23/24 @ 20:42 by Elliot Loja DO) Anemia Sepsis Acute confusion Severe muscle deconditioning COPD exacerbation Respiratory failure Hyperkalemia Acute hypercapnic respiratory failure TATY (acute kidney injury) AMS (altered mental status) Syncope Acute UTI Acute hypotension Chronic kidney disease, stage 3a Acute kidney injury Acute exacerbation of chronic low back pain Candidiasis of mouth and esophagus DVT prophylaxis Diabetes mellitus COPD (chronic obstructive pulmonary disease) Hypertension Hyperlipidemia Acute on chronic respiratory failure with hypoxia and hypercapnia Family History Other Family history non-contributory Social History Smoking Status: Current every day smoker Tobacco Type: Cigarettes Age Started Using Tobacco: 32; Cigarettes Per Day: 1/2 pk/day; Second Hand Exposure: No; Do You Dip or Chew Tobacco: No; Hx Alcohol Use: No Hx Substance Use: No Communication Ability: Effective Sequins [place] Required: No Beliefs That Will Affect Care: None marital status: Current Living Situation: Spouse Current Living Situation Comment: Lives at home with How many Children do You have: 3 Feels Safe at Home: Yes Assistive Devices: Cane, Oxygen - Continuous and Wheelchair Allergies Allergies Allergy/AdvReac Type Severity Reaction Status Date / Time diflunisal AdvReac Intermediate HEART RACES Verified 05/23/24 19:23 Home Meds Home Medications Medication Instructions Recorded Confirmed albuterol sulfate 90 mcg/actuation 2 puff inhalation Q6 PRN Shortness 08/28/20 05/23/24 aerosol inhaler (Ventolin HFA) Of Breath Or Wheezing aspirin 81 mg tablet,delayed 81 mg PO QAM 08/28/20 05/23/24 release (Uri Low Dose Aspirin) metformin 1,000 mg tablet 1,000 mg PO BID 08/28/20 05/23/24 folic acid 1 mg tablet 1 mg PO QAM 03/24/22 05/23/24 losartan 50 mg tablet 50 mg PO QAM 03/24/22 05/23/24 rosuvastatin 20 mg tablet 20 mg PO QAM 08/23/23 05/23/24 budesonide-formoterol HFA 160 2 puff inhalation BID 09/21/23 05/23/24 mcg-4.5 mcg/actuation aerosol inhaler guaifenesin 600 mg tablet, 1,200 mg PO Q12 PRN Congestion 02/10/24 05/23/24 extended release 12 hr (Mucinex) apixaban 5 mg tablet (Eliquis) 5 mg PO BID 04/30/24 05/23/24 ferrous sulfate 325 mg (65 mg 325 mg PO BID 04/30/24 05/23/24 iron) tablet fluticasone furoate 100 1 inh inhalation DAILY 04/30/24 05/23/24 mcg-vilanterol 25 mcg/dose inhalation powder (Breo Ellipta) furosemide 20 mg tablet 20 mg PO DAILY PRN Edema 04/30/24 05/23/24 insulin glargine 100 unit/mL (3 20 unit subcut BID 04/30/24 05/23/24 mL) subcutaneous pen (Lantus Solostar U-100 Insulin) insulin lispro 100 unit/mL 8 unit subcut TID 04/30/24 05/23/24 subcutaneous pen (Humalog KwikPen (U-100) Insulin) metoprolol succinate 50 mg 50 mg PO BID 04/30/24 05/23/24 tablet,extended release 24 hr sodium chloride 7 % for 1 inh inhalation BID PRN 04/30/24 05/23/24 nebulization SOB/WHEEZING budesonide 160 mcg-glycopyr 9 2 inh inhalation BID 05/23/24 05/23/24 mcg-formot 4.8 mcg/actuation HFA inhaler (Breztri Aerosphere) umeclidinium 62.5 mcg/actuation 1 inh inhalation DAILY 05/23/24 05/23/24 blister powder for inhalation (Incruse Ellipta) Previous Rx's Medication Instructions Recorded blood sugar diagnostic (OneTouch #50 ea 06/02/21 Verio test strips) ipratropium 0.5 mg-albuterol 3 mg 3 ml inhalation Q4H PRN shortness 12/13/22 (2.5 mg base)/3 mL nebulization of breath #90 mL soln diltiazem HCl 180 mg 180 mg PO QAM #30 caps 09/10/23 capsule,extended release 24 hr pantoprazole 40 mg tablet,delayed 40 mg PO BID #60 tabs 11/24/23 release cyanocobalamin (vitamin B-12) 500 1,000 mcg (2 x 500 mcg) PO QAM #30 02/13/24 mcg tablet tabs formoterol fumarate 20 mcg/2 mL 20 mcg (2 mL) NEB BIDR #60 mL 02/13/24 solution for nebulization (Perforomist) oxycodone 5 mg tablet 10 mg (2 x 5 mg) PO TID PRN Pain 05/02/24 #10 tabs Results & Data (ED) Vital Signs Vital Signs - 24 hr 05/23/24 17:08 05/23/24 17:08 05/23/24 17:11 Temperature 37.0 C Temperature Source Oral Pulse Rate 82 87 Pulse Rhythm Pulse Strength Respiratory Rate 18 Respiratory Effort / Characteristics Non-Labored Spontaneous Respiratory Depth Normal Respiratory Pattern Regular Blood Pressure 121/64 Blood Pressure Mean 83 Blood Pressure Position Lying Pulse Oximetry 100 86 L Oxygen Delivery Method Nasal Cannula Nasal Cannula Oxygen Flow Rate 4 Sepsis Recent Fever Within 48 Hours No Sepsis New/Unexplained Change in Mental Status N/A Sepsis Action Taken by Nursing No Action Required Oxygen Flow Rate - Titration 4 Pulse Oximetry Post Tiitration 100 05/23/24 17:36 05/23/24 18:00 05/23/24 19:08 Temperature 36.9 C Temperature Source Oral Pulse Rate 86 85 85 Pulse Rhythm Regular Pulse Strength Normal Respiratory Rate 24 20 23 Respiratory Effort / Characteristics Respiratory Depth Respiratory Pattern Blood Pressure 121/64 124/61 126/74 Blood Pressure Mean 83 88 91 Blood Pressure Position Sitting Pulse Oximetry 100 99 100 Oxygen Delivery Method Room Air Room Air Oxygen Flow Rate 4 Sepsis Recent Fever Within 48 Hours Sepsis New/Unexplained Change in Mental Status Sepsis Action Taken by Nursing Oxygen Flow Rate - Titration Pulse Oximetry Post Tiitration 05/23/24 19:27 05/23/24 19:27 05/23/24 19:42 Temperature 36.9 C 37.1 C 37.1 C Temperature Source Oral Oral Oral Pulse Rate 81 84 78 Pulse Rhythm Regular Pulse Strength Normal Respiratory Rate 20 22 18 Respiratory Effort / Characteristics Respiratory Depth Respiratory Pattern Blood Pressure 121/57 L 106/61 133/54 L Blood Pressure Mean 78 76 80 Blood Pressure Position Sitting Pulse Oximetry 100 100 98 Oxygen Delivery Method Oxygen Flow Rate 4 4 Sepsis Recent Fever Within 48 Hours Sepsis New/Unexplained Change in Mental Status Sepsis Action Taken by Nursing Oxygen Flow Rate - Titration Pulse Oximetry Post Tiitration 05/23/24 20:10 Temperature 36.9 C Temperature Source Oral Pulse Rate 65 Pulse Rhythm Pulse Strength Respiratory Rate 21 Respiratory Effort / Characteristics Respiratory Depth Respiratory Pattern Blood Pressure 142/66 H Blood Pressure Mean 91 Blood Pressure Position Pulse Oximetry 99 Oxygen Delivery Method Oxygen Flow Rate 4 Sepsis Recent Fever Within 48 Hours Sepsis New/Unexplained Change in Mental Status Sepsis Action Taken by Nursing Oxygen Flow Rate - Titration Pulse Oximetry Post Tiitration Laboratory Data 05/23/24 17:16 05/23/24 17:16 Lab Results 05/23/24 05/23/24 05/23/24 Range/Units 17:16 17:42 17:51 WBC 7.59 (4.8-10.8) K/ul RBC 2.41 L (4.20-5.40) M/uL Hgb 6.2 L* (12.0-16.0) g/dl Hct 21.3 L (37.0-47.0) % MCV 88.4 (80.0-100.0) fL MCH 25.7 (25.0-34.0) pg MCHC 29.1 L (32.0-36.0) g/dL RDW Std Deviation 59.8 H (36.4-46.3) fL RDW Coeff of Dorcas 19.2 H (11.5-14.5) % Plt Count 524 H (130-400) K/uL MPV 10.0 (9.4-12.4) fL Immature Gran % (Auto) 1.3 % Neut % (Auto) 69.1 % Lymph % (Auto) 20.8 % [place] % (Auto) 6.9 % Eos % (Auto) 1.2 % Baso % (Auto) 0.7 % Neut # (Auto) 5.25 (1.40-6.50) K/uL Lymph # (Auto) 1.58 (1.20-3.40) K/uL [place] # (Auto) 0.52 (0.11-0.59) K/uL Eos # (Auto) 0.09 (0.00-0.50) K/uL Baso # (Auto) 0.05 (0.00-0.20) K/uL Immature Gran # (Auto) 0.10 (0.01-0.20) K/uL Polychromasia 1+ Stomatocytes 1+ Sodium 143 (136-145) mmol/L Potassium 3.0 L (3.5-5.1) mmol/L Chloride 95 L (98-107) mmol/L Carbon Dioxide 37 H (21-32) mmol/L Anion Gap 11 (3-11) BUN 14 (6-23) mg/dl Creatinine 1.31 H (0.6-1.2) mg/dl Est Cr Clr Drug Dosing 33.5 ml/min Est GFR ( Amer) 47.0 ml/min Est GFR (Non-Af Amer) 40.6 ml/min BUN/Creatinine Ratio 10.7 (10-20) Glucose 156 H (70-99(Fasting)) mg/dl Calcium 6.7 L (8.6-10.3) mg/dl Total Bilirubin 0.2 (0.2-1.0) mg/dl AST 21 (13-39) U/L ALT 9 (7-52) U/L Alkaline Phosphatase 70 (34-104) U/L Troponin I High Sens 7.4 (0-14) pg/ml Total Protein 5.6 L (6.0-8.3) gm/dl Albumin 3.1 L (3.4-5.0) gm/dl Globulin 2.5 (2.5-4.0) gm/dl Albumin/Globulin Ratio 1.2 (0.9-2) Lipase 18 (11-82) U/L Urine Color Yellow Urine Appearance Clear (Clear) Urine pH 8.5 H (4.5-7.5) Ur Specific [place] 1.017 (1.000-1.030) Urine Protein 1+ H (Negative) Urine Glucose (UA) Negative (Negative) Urine Ketones Trace H (Negative) Urine Blood Negative (Negative) Urine Nitrite Negative (Negative) Urine Bilirubin Negative (Negative) Urine Urobilinogen Negative (Negative) Ur Leukocyte Esterase Trace H (Negative) Urine WBC (Auto) 0-5 (0-5) /hpf Urine RBC (Auto) 0-2 (0-2) /hpf U Hyaline Cast (Auto) 3-5 H (0-2) /lpf U Epithel Cells (Auto) 0-2 (0-2) /hpf Urine Bacteria (Auto) 4+ H (None Seen) Lyme Disease Screen Negative (Negative) Blood Type O Positive Blood Type Recheck O Positive Antibody Screen NEGATIVE Crossmatch See Detail Administered Medications Pantoprazole Sodium 40 mg/ (Dextrose) 100 mls @ 20 mls/hr IV Q5H KALEY Stop: 06/22/24 19:44 Last Admin: 05/23/24 20:06 Dose: 8 mg/hr, 20 mls/hr Documented By: JAVIER Discontinued Medications Acetaminophen (Acetaminophen 500 Mg Tab) 500 mg PO NOW STA Stop: 05/23/24 17:31 Last Admin: 05/23/24 17:58 Dose: Not Given Documented By: ALFREDO Sodium Chloride (Nss) 1,000 mls @ 999 mls/hr IV .Q1H1M ONE Stop: 05/23/24 18:31 Last Infusion: 05/23/24 19:08 Dose: Infused Documented By: Admin: 05/23/24 17:57 Dose: 999 mls/hr Documented By: ALFREDO Pantoprazole Sodium 80 mg/ (Dextrose) 120 mls @ 480 mls/hr IV NOW ONE Stop: 05/23/24 19:40 Last Infusion: 05/23/24 20:06 Dose: Infused Documented By: Admin: 05/23/24 19:39 Dose: 480 mls/hr Documented By: JAVIER Ioversol (Optiray 320 100ml) 94 ml IV ONCE ONE Stop: 05/23/24 18:57 Last Admin: 05/23/24 18:57 Dose: 94 ml Documented By: KOJOK Morphine Sulfate (Morphine Sulfate 4 Mg/Ml 1 Ml Carp\Vial) 4 mg IV NOW STA Stop: 05/23/24 19:27 Last Admin: 05/23/24 19:33 Dose: 4 mg Documented By: JAVIER Imaging Data Radiologist's Impression: Chest X-Ray 05/23/24 17:07 XR chest 1V portable CLINICAL HISTORY: weak COMPARISON STUDY: Chest CT February 25, 2024. Chest radiograph April 30, 2024. FINDINGS: No pneumothorax or pleural effusion. Emphysema is present. No consolidation to suggest pneumonia. Cardiomediastinal silhouette is normal. There has been no significant change in appearance of chest. IMPRESSION: No acute cardiopulmonary findings. Emphysema. ACT 112: Negative or not required by law. Electronically signed by: Cheng Arevalo M.D. 05/23/2024 5:48 PM Abdomen/Pelvis CT 05/23/24 17:31 CT OF THE ABDOMEN AND PELVIS WITH CONTRAST CLINICAL HISTORY: Lower abdominal pain. COMPARISON STUDY: CT of the abdomen and pelvis April 30, 2024. TECHNIQUE: Following IV administration of 94 mL of Optiray, axial images of the abdomen and pelvis were obtained from the lung bases to the proximal femurs. Images were reviewed in the axial, sagittal, and coronal planes. IV contrast was administered without complication. Automated exposure control was utilized for the study. A dose lowering technique was utilized adhering to the principles of ALARA. CT DOSE: 669.21 mGy.cm FINDINGS: A trace right pleural effusion has developed since prior exam. There is emphysema. A small cluster of tree-in-bud nodules within the lateral basal segment of the right lower lobe is also new since CT of April 30, 2024. No pneumatosis, free air or portal venous gas is present. There are calcified granulomas within the spleen. Left adrenal nodule is unchanged from earlier exams. There are no hepatic lesions. Pancreatic ductal dilatation is again noted with pancreas divisum. No evidence for acute pancreatitis. There is no hydronephrosis. A 4.3 cm infrarenal abdominal aortic aneurysm is unchanged. There is no evidence for rupture. There is extensive aortoiliac atherosclerotic plaque. The appendix is not visualized. Colonic diverticulosis is present. There is mild stranding adjacent to the distal sigmoid colon and the rectum. This is new since prior CT mild wall thickening is noted. This could be due to underdistention. There is no free air. There is no abscess. No abdominal or pelvic lymphadenopathy is present. IMPRESSION: 1. Interval development of a trace right pleural effusion with minimal tree-in-bud nodules within the right lower lobe suggestive of bronchiolitis. 2. Minimal stranding adjacent to the rectosigmoid junction with mild wall thickening. This is new since prior exam. This could reflect a mild nonspecific proctocolitis. No free air or abscess. 3. No bowel obstruction. 4. No change in a 4.3 cm abdominal aortic aneurysm. ACT 112: Negative or not required by law. Electronically signed by: Cheng Arevalo M.D. 05/23/2024 7:13 PM Discharge Plan Visit Data Chief Complaint: Weakness ED Provider: Elliot Loja Discharge Problem: Acute GI bleeding, Symptomatic anemia, Hypokalemia, Weakness Forms Stand Alone Forms: My [facility] Prescriptions Prescriptions: No Action aspirin [Uri Low Dose Aspirin] 81 mg Tablet,Delayed Release (Dr/Ec) 81 mg PO QAM Hold Instructions: Resume on 11/28/23. hold until seen by primary care albuterol sulfate [Ventolin HFA] 90 mcg/actuation HFA aerosol inhaler 2 puff INHALATION Q6 PRN (Reason: Shortness Of Breath Or Wheezing) metformin 1,000 mg tablet 1,000 mg PO BID (DME) OneTouch Verio test strips Strip See Rx Instructions .ROUTE .MEDSUPPLY Qty: 50 3RF Rx Instructions: test blood sugar 1-2 times per day losartan 50 mg tablet 50 mg PO QAM folic acid 1 mg tablet 1 mg PO QAM rosuvastatin 20 mg tablet 20 mg PO QAM budesonide-formoterol 160-4.5 mcg/actuation HFA aerosol inhaler 2 puff INHALATION BID pantoprazole 40 mg Tablet,Delayed Release (Dr/Ec) 40 mg PO BID Qty: 60 0RF Rx Instructions: qam ipratropium-albuterol 0.5 mg-3 mg(2.5 mg base)/3 mL solution for nebulization 3 ml inhalation Q4H PRN (Reason: shortness of breath) Qty: 90 0RF diltiazem HCl 180 mg Capsule,Extended Release 24hr 180 mg PO QAM Qty: 30 5RF guaifenesin [Mucinex] 600 mg tablet extended release 12hr 1,200 mg PO Q12 PRN (Reason: Congestion) formoterol fumarate [Perforomist] 20 mcg/2 mL Solution For Nebulization 20 mcg NEB BIDR Qty: 60 0RF cyanocobalamin (vitamin B-12) 500 mcg Tablet 1,000 mcg PO QAM Qty: 30 0RF ferrous sulfate 325 mg (65 mg iron) Tablet 325 mg PO BID insulin lispro [Humalog KwikPen Insulin] 100 unit/mL insulin pen 8 unit SUBCUT TID Rx Instructions: before meals sodium chloride 7 % solution for nebulization 1 inh INHALATION BID PRN (Reason: SOB/WHEEZING) insulin glargine [Lantus Solostar U-100 Insulin] 100 unit/mL (3 mL) insulin pen 20 unit SUBCUT BID furosemide 20 mg tablet 20 mg PO DAILY PRN (Reason: Edema) metoprolol succinate 50 mg tablet extended release 24 hr 50 mg PO BID Rx Instructions: UNABLE TO VERIFY THIS MED, LAST FILLED 01/20/24 FOR 30 DAYS. Eliquis 5 mg tablet 5 mg PO BID fluticasone furoate-vilanterol [Breo Ellipta] 100-25 mcg/dose blister with device 1 inh INHALATION DAILY oxycodone 5 mg tablet 10 mg PO TID PRN (Reason: Pain) Qty: 10 0RF Incruse Ellipta 62.5 mcg/actuation Blister With Device 1 inh INHALATION DAILY Breztri Aerosphere 160-9-4.8 mcg/actuation Hfa Aerosol Inhaler 2 inh INHALATION BID Referrals Referrals: Rosi Borges CRNP [Primary Care Provider] -
[2024-05-23 17:36] LABS: Hematocrit (blood only) 21.3 % (37.0-47.0); Hemoglobin 6.2 g/dl (12.0-16.0); Mean Corpuscular Hemoglobin 25.7 pg (25.0-34.0); Mean Corpuscular Hgb Conc 29.1 g/dL (32.0-36.0); Mean Corpuscular Volume 88.4 fL (80.0-100.0); Platelet Count 524 K/uL (130-400); RDW Coefficient of Variation 19.2 % (11.5-14.5); RDW Standard Deviation 59.8 fL (36.4-46.3); Red Blood Count 2.41 M/uL (4.20-5.40); White Blood Count 7.59 K/ul (4.8-10.8)
[2024-05-23] MEDS ORDERED: SODIUM CHLORIDE 0.9% 250 ML IV PRN (17:38)
[2024-05-23 17:45] LABS: Basophils # (auto) 0.05 K/uL (0.00-0.20); Basophils % (auto) 0.7 %; Eosinophils # (auto) 0.09 K/uL (0.00-0.50); Eosinophils % (auto) 1.2 %; Immature Granulocytes % (auto) 1.3 %; Lymphocytes # (auto) 1.58 K/uL (1.20-3.40); Lymphocytes % (auto) 20.8 %; Monocytes # (auto) 0.52 K/uL (0.11-0.59); Monocytes % (auto) 6.9 %; Neutrophils # (auto) 5.25 K/uL (1.40-6.50); Neutrophils % (auto) 69.1 %; Polychromasia 1+; Stomatocytes 1+
[2024-05-23 17:47] LABS: Albumin Globulin Ratio 1.2 (0.9-2); Albumin Level 3.1 gm/dl (3.4-5.0); BUN Creatinine Ratio 10.7 (10-20); Bilirubin,Total 0.2 mg/dl (0.2-1.0); Calcium 6.7 mg/dl (8.6-10.3); Creatinine Clr Calc Pharmacy 33.5 ml/min; Est GFR (Non-African American) 40.6 ml/min; Globulin 2.5 gm/dl (2.5-4.0); Total Protein 5.6 gm/dl (6.0-8.3)
--- NOTE | 2024-05-23 17:49 | XRay Report ---
XR chest 1V portable CLINICAL HISTORY: weak COMPARISON STUDY: Chest CT February 25, 2024. Chest radiograph April 30, 2024. FINDINGS: No pneumothorax or pleural effusion. Emphysema is present. No consolidation to suggest pneu monia. Cardiomediastinal silhouette is normal. There has been no significant change in appearance of chest. IMPRESSION: No acute cardiopulmonary findings. Emphysema. ACT 112: Negative or not required by law. Electronically signed by: Cheng Arevalo M.D. 05/23/2024 5:48 PM
[2024-05-23 17:53] LABS: Troponin I High Sensitivity 7.4 pg/ml (0-14)
[2024-05-23] MEDS: SODIUM CHLORIDE 0.9% 1,000 ML IV ONE (17:57)
[2024-05-23] MEDS: ACETAMINOPHEN 500 MG TAB PO STA (17:58)
[2024-05-23 18:28] LABS: Appearance Urine Clear (Clear); Bacteria Urine Automated 4+ (None Seen); Bilirubin Urine Negative (Negative); Blood Urine Negative (Negative); Color Urine Yellow; Epithelial Cell Urine Auto 0-2 /hpf (0-2); Glucose Urine UA Negative (Negative); Ketones Urine Trace (Negative); Leukocyte Esterase Urine Trace (Negative); Nitrite Urine Negative (Negative); Protein Urine 1+ (Negative); RBC Urine Automated 0-2 /hpf (0-2); Specific Gravity Urine 1.017 (1.000-1.030); Urobilinogen Urine Negative (Negative); WBC Urine Automated 0-5 /hpf (0-5); pH Urine 8.5 (4.5-7.5)
[2024-05-23] MEDS: OPTIRAY 320 100ml IV ONE (18:57)
--- NOTE | 2024-05-23 19:16 | CT Scan Report ---
CT OF THE ABDOMEN AND PELVIS WITH CONTRAST CLINICAL HISTORY: Lower abdominal pain. COMPARISON STUDY: CT of the abdomen and pelvis April 30, 2024. TECHNIQUE: Following IV administration of 94 mL of Optiray, axial images of the abdomen and pelvis we re obtained from the lung bases to the proximal femurs. Images were reviewed in the axial, sagittal, and coronal planes. IV contrast was administered without complication. Automated exposure control wa s utilized for the study. A dose lowering technique was utilized adhering to the principles of ALARA . CT DOSE: 669.21 mGy.cm FINDINGS: A trace right pleural effusion has developed since prior exam. There is emphysema. A small cluster of tree-in-bud nodules within the lateral basal segment of the right lower lobe is also new s [place] CT of April 30, 2024. No pneumatosis, free air or portal venous gas is present. There are calcifie d granulomas within the spleen. Left adrenal nodule is unchanged from earlier exams. There are no hep atic lesions. Pancreatic ductal dilatation is again noted with pancreas divisum. No evidence for acut e pancreatitis. There is no hydronephrosis. A 4.3 cm infrarenal abdominal aortic aneurysm is unchange d. There is no evidence for rupture. There is extensive aortoiliac atherosclerotic plaque. The append ix is not visualized. Colonic diverticulosis is present. There is mild stranding adjacent to the dist al sigmoid colon and the rectum. This is new since prior CT mild wall thickening is noted. This could be due to underdistention. There is no free air. There is no abscess. No abdominal or pelvic lymphad enopathy is present. IMPRESSION: 1. Interval development of a trace right pleural effusion with minimal tree-in-bud nodules within the right lower lobe suggestive of bronchiolitis. 2. Minimal stranding adjacent to the rectosigmoid junction with mild wall thickening. This is new sin ce prior exam. This could reflect a mild nonspecific proctocolitis. No free air or abscess. 3. No bowel obstruction. 4. No change in a 4.3 cm abdominal aortic aneurysm. ACT 112: Negative or not required by law. Electronically signed by: Cheng Arevalo M.D. 05/23/2024 7:13 PM
[2024-05-23] MEDS: MoRPHine SULFATE 4 MG/ML 1 ML CARP\\VIAL IV STA (19:33)
[2024-05-23] MEDS: PANTOprazole 80 MG in DEXTROSE 5% 100 ML IV ONE (19:39)
[2024-05-23] MEDS: PANTOprazole 40 MG in DEXTROSE 5% MINI-B 100 ML IV SCH (20:06)
[2024-05-23] MEDS ORDERED: MoRPHine SULFATE 2 MG/ML CARP IV PRN (21:00)
--- NOTE | 2024-05-23 21:01 | History & Physical Report ---
Date of Service May 23, 2024 Assessment & Plan (1) Symptomatic anemia: (2) Acute GI bleeding: (3) Hypokalemia: (4) Afib: (5) UTI (urinary tract infection): (6) Chronic pain syndrome: Plan Symptomatic anemia/acute GI bleeding- Hemoglobin 6.2 on admission, with range 8.5-10 To receive 2 units PRBCs from the ED CT scan abdomen pelvis suggested possible proctocolitis, with patient having generalized abdominal symptoms Heme positive stool reported by the ED Pantoprazole bolus and drip begun in the ED and will continue N.p.o. except essential medications H&H every 6 hours Consult gastroenterology Nonspecific proctocolitis Empiric Zosyn 4.5 g IV every 8 hours Urinary tract infection- Follow urine culture and sensitivity Zosyn 4.5 g IV every 8 hours Right lower lobe bronchiolitis- Zosyn as noted Continue routine inhalers Nasal cannula oxygen, titrate to keep pulse ox around 94% Hypokalemia- Potassium 3.0 on admission Give 2K riders and repeat Check a magnesium level Diabetes mellitus- Reduce glargine from 20 to 6 units subcu twice daily Placed on Accu-Cheks with NovoLog SSI History of Present Illness Chief Complaint: The patient presents to the emergency department with complaint of worsening generalized weakness and fatigue, and generalized abdominal pain, and acute on chronic urinary discomfort Primary Care Provider: BRET Espinoza The patient is a 74-year-old female with a past medical history including acute on chronic respiratory failure with hypoxia, CHF, UTIs, COPD with exacerbations, current tobacco use, metabolic encephalopathy, atrial fibrillation, atrial for with RVR, anemia, CKD, hypertension, AAA and diabetes mellitus type 2. She presents to the emergency department symptoms as noted above. Her hemoglobin was found to be 6.2, she was Hemoccult positive, CT scan suggested a possible nonspecific proctocolitis. She was written for 2 units PRBCs from the ED, and referred for evaluation for admission. The patient was recently bit by 2 ticks, and has been placed empirically on doxycycline, however, Lyme test was negative in the ED this evening Allergies Allergy/AdvReac Type Severity Reaction Status Date / Time diflunisal AdvReac Intermediate HEART RACES Verified 05/23/24 19:23 Home Medications Medication Instructions Recorded Confirmed Type albuterol sulfate 90 mcg/actuation 2 puff inhalation Q6 PRN Shortness 08/28/20 05/23/24 History aerosol inhaler (Ventolin HFA) Of Breath Or Wheezing aspirin 81 mg tablet,delayed 81 mg PO QAM 08/28/20 05/23/24 History release (Uri Low Dose Aspirin) metformin 1,000 mg tablet 1,000 mg PO BID 08/28/20 05/23/24 History blood sugar diagnostic (OneTouch #50 ea 06/02/21 05/23/24 Rx Verio test strips) folic acid 1 mg tablet 1 mg PO QAM 03/24/22 05/23/24 History losartan 50 mg tablet 50 mg PO QAM 03/24/22 05/23/24 History ipratropium 0.5 mg-albuterol 3 mg 3 ml inhalation Q4H PRN shortness 12/13/22 05/23/24 Rx (2.5 mg base)/3 mL nebulization of breath #90 mL soln rosuvastatin 20 mg tablet 20 mg PO QAM 08/23/23 05/23/24 History diltiazem HCl 180 mg 180 mg PO QAM #30 caps 09/10/23 05/23/24 Rx capsule,extended release 24 hr budesonide-formoterol HFA 160 2 puff inhalation BID 09/21/23 05/23/24 History mcg-4.5 mcg/actuation aerosol inhaler pantoprazole 40 mg tablet,delayed 40 mg PO BID #60 tabs 11/24/23 05/23/24 Rx release guaifenesin 600 mg tablet, 1,200 mg PO Q12 PRN Congestion 02/10/24 05/23/24 History extended release 12 hr (Mucinex) cyanocobalamin (vitamin B-12) 500 1,000 mcg (2 x 500 mcg) PO QAM #30 02/13/24 05/23/24 Rx mcg tablet tabs formoterol fumarate 20 mcg/2 mL 20 mcg (2 mL) NEB BIDR #60 mL 02/13/24 05/23/24 Rx solution for nebulization (Perforomist) apixaban 5 mg tablet (Eliquis) 5 mg PO BID 04/30/24 05/23/24 History ferrous sulfate 325 mg (65 mg 325 mg PO BID 04/30/24 05/23/24 History iron) tablet fluticasone furoate 100 1 inh inhalation DAILY 04/30/24 05/23/24 History mcg-vilanterol 25 mcg/dose inhalation powder (Breo Ellipta) furosemide 20 mg tablet 20 mg PO DAILY PRN Edema 04/30/24 05/23/24 History insulin glargine 100 unit/mL (3 20 unit subcut BID 04/30/24 05/23/24 History mL) subcutaneous pen (Lantus Solostar U-100 Insulin) insulin lispro 100 unit/mL 8 unit subcut TID 04/30/24 05/23/24 History subcutaneous pen (Humalog KwikPen (U-100) Insulin) metoprolol succinate 50 mg 50 mg PO BID 04/30/24 05/23/24 History tablet,extended release 24 hr sodium chloride 7 % for 1 inh inhalation BID PRN 04/30/24 05/23/24 History nebulization SOB/WHEEZING oxycodone 5 mg tablet 10 mg (2 x 5 mg) PO TID PRN Pain 05/02/24 05/23/24 Rx #10 tabs budesonide 160 mcg-glycopyr 9 2 inh inhalation BID 05/23/24 05/23/24 History mcg-formot 4.8 mcg/actuation HFA inhaler (Breztri Aerosphere) umeclidinium 62.5 mcg/actuation 1 inh inhalation DAILY 05/23/24 05/23/24 History blister powder for inhalation (Incruse Ellipta) Past Med/Surg History Problem List (Updated 05/23/24 @ 20:42 by Elliot Loja DO) Weakness (Acute) Hypokalemia (Acute) Symptomatic anemia (Acute) Acute GI bleeding (Acute) Tobacco abuse Acute on chronic respiratory failure with hypoxia Left lower lobe pneumonia CHF (congestive heart failure) (Acute) Acute UTI (urinary tract infection) (Acute) Pleural effusion (Acute) Shortness of breath (Acute) Abdominal pain (Acute) Acute hypoxemic respiratory failure (Acute) Hypomagnesemia (Acute) COPD with acute exacerbation (Acute) Pleural effusion (Acute) CHF (congestive heart failure) (Acute) Pneumonia (Acute) Acute on chronic respiratory failure with hypoxia and hypercapnia (Acute) Ambulatory dysfunction Current smoker Pneumonia (Acute) Acute respiratory distress (Acute) Altered mental status (Acute) Tachycardia (Acute) Hypomagnesemia (Acute) Metabolic encephalopathy Hyperglycemia Acute exacerbation of chronic obstructive pulmonary disease (Acute) Hypoxia (Acute) Afib COPD, very severe Encounter for hospice care discussion Advanced care planning/counseling discussion Palliative care by specialist Anxiety about health Weakness generalized Dyspnea and respiratory abnormalities Atrial fibrillation with rapid ventricular response (Acute) Dilated pancreatic duct Positive blood culture Abdominal pain Abdominal pain Lower extremity edema Respiratory distress (Acute) Hypertension (Acute) COPD exacerbation (Acute) Respiratory acidosis (Acute) Elevated lactic acid level (Acute) Tachycardia (Acute) Hypomagnesemia (Acute) Acute bronchitis with chronic obstructive pulmonary disease (COPD) SOB (shortness of breath) (Acute) Anemia (Acute) Chest tightness (Acute) UTI (urinary tract infection) Chronic pain syndrome SOB (shortness of breath) (Acute) COPD exacerbation (Acute) Dizziness (Acute) Acute UTI (Acute) Hypomagnesemia (Acute) Anemia B12 deficiency COPD exacerbation (Acute) Hyperlipidemia Dysphagia Chronic kidney disease HTN (hypertension) Thrombocythemia Chronic low back pain (Chronic) Diaphragmatic hernia (Chronic 10/31/11) Overweight (BMI 25.0-29.9) (Chronic) AAA (abdominal aortic aneurysm) Left peroneal nerve palsy (Chronic) History of knee replacement (Acute) Knee pain, left (Acute) Right knee pain (Acute) Diabetes type 2, uncontrolled (Acute) COPD (chronic obstructive pulmonary disease) (Acute) Medical History (Updated 05/23/24 @ 20:42 by Elliot Loja DO) Anemia Sepsis Acute confusion Severe muscle deconditioning COPD exacerbation Respiratory failure Hyperkalemia Acute hypercapnic respiratory failure TATY (acute kidney injury) AMS (altered mental status) Syncope Acute UTI Acute hypotension Chronic kidney disease, stage 3a Acute kidney injury Acute exacerbation of chronic low back pain Candidiasis of mouth and esophagus DVT prophylaxis Diabetes mellitus COPD (chronic obstructive pulmonary disease) Hypertension Hyperlipidemia Acute on chronic respiratory failure with hypoxia and hypercapnia Family History Other Family history non-contributory Social History Smoking Status: Current every day smoker Tobacco Type: Cigarettes Age Started Using Tobacco: 32; Cigarettes Per Day: 1/2 pk/day; Second Hand Exposure: No; Do You Dip or Chew Tobacco: No; Hx Alcohol Use: No Hx Substance Use: No Communication Ability: Effective Electronic Pagination System Operator Required: No Beliefs That Will Affect Care: None marital status: Current Living Situation: Spouse Current Living Situation Comment: Lives at home with How many Children do You have: 3 Feels Safe at Home: Yes Assistive Devices: Cane, Oxygen - Continuous and Wheelchair Review of Systems Review of Systems: The patient denies palpitations, lower extremity swelling, sore throat, fevers, chills, sweats, weight change, fatigue, nausea, vomiting, diarrhea , constipation, abdominal pain, pelvic pain, blood in urine or stool, memory loss, loss of consciousness, rash, abnormal bruising or bleeding, Medical weakness, numbness or tingling in arms or legs, or night sweats. The review of systems is otherwise negative other than for that already noted above, and at least 10 systems have been reviewed. Physical Exam Physical Exam: The patient is awake, alert and oriented 3, well developed and well nourished, normocephalic and atraumatic, lying in bed and in no acute distress. HEENT--PERRL, EOMI, mucous membranes and oropharynx normal Neck--supple. No JVD. No bruits. Thyroid normal, trachea midline, no adenopathy. Heart--normal S1 and S2. No murmurs, rubs or gallops. Lungs--decreased breath sounds throughout. No respiratory distress, no accessory muscle use. Abdomen--normal bowel sounds and soft. Nontender. Nondistended, no hernias or masses, no organomegaly. Extremities- No edema. Dermatologic--skin is dry Neurologic--cranial nerves II through XII grossly intact. Rheumatologic--normal range of motion. Psychiatric--normal affect. Results & Data Results & Data Vital Signs (Past 12 Hours) Vital Signs Temp Pulse Resp BP Pulse Ox O2 Del Method O2 Flow Rate 05/23/24 20:57 74 05/23/24 20:40 36.9 C 76 24 142/59 H 100 4 05/23/24 20:10 36.9 C 65 21 142/66 H 99 4 05/23/24 19:42 37.1 C 78 18 133/54 L 98 4 05/23/24 19:27 37.1 C 84 22 106/61 100 05/23/24 19:27 36.9 C 81 20 121/57 L 100 4 05/23/24 19:08 36.9 C 85 23 126/74 100 4 05/23/24 18:00 85 20 124/61 99 Room Air 05/23/24 17:36 86 24 121/64 100 Room Air 05/23/24 17:11 87 05/23/24 17:08 86 L Nasal Cannula 05/23/24 17:08 37.0 C 82 18 100 Nasal Cannula 4 Laboratory Results Laboratory Results WBC 7.59 K/ul (4.8-10.8) 05/23/24 17:16 RBC 2.41 M/uL (4.20-5.40) L 05/23/24 17:16 Hgb 6.2 g/dl (12.0-16.0) L* 05/23/24 17:16 Hct 21.3 % (37.0-47.0) L 05/23/24 17:16 MCV 88.4 fL (80.0-100.0) 05/23/24 17:16 MCH 25.7 pg (25.0-34.0) 05/23/24 17:16 MCHC 29.1 g/dL (32.0-36.0) L 05/23/24 17:16 RDW Std Deviation 59.8 fL (36.4-46.3) H 05/23/24 17:16 RDW Coeff of Dorcas 19.2 % (11.5-14.5) H 05/23/24 17:16 Plt Count 524 K/uL (130-400) H 05/23/24 17:16 MPV 10.0 fL (9.4-12.4) 05/23/24 17:16 Immature Gran % (Auto) 1.3 % 05/23/24 17:16 Neut % (Auto) 69.1 % 05/23/24 17:16 Lymph % (Auto) 20.8 % 05/23/24 17:16 Linn % (Auto) 6.9 % 05/23/24 17:16 Eos % (Auto) 1.2 % 05/23/24 17:16 Baso % (Auto) 0.7 % 05/23/24 17:16 Neut # (Auto) 5.25 K/uL (1.40-6.50) 05/23/24 17:16 Lymph # (Auto) 1.58 K/uL (1.20-3.40) 05/23/24 17:16 Linn # (Auto) 0.52 K/uL (0.11-0.59) 05/23/24 17:16 Eos # (Auto) 0.09 K/uL (0.00-0.50) 05/23/24 17:16 Baso # (Auto) 0.05 K/uL (0.00-0.20) 05/23/24 17:16 Immature Gran # (Auto) 0.10 K/uL (0.01-0.20) 05/23/24 17:16 Polychromasia 1+ 05/23/24 17:16 Stomatocytes 1+ 05/23/24 17:16 Sodium 143 mmol/L (136-145) 05/23/24 17:16 Potassium 3.0 mmol/L (3.5-5.1) L 05/23/24 17:16 Chloride 95 mmol/L (98-107) L 05/23/24 17:16 Carbon Dioxide 37 mmol/L (21-32) H 05/23/24 17:16 Anion Gap 11 (3-11) 05/23/24 17:16 BUN 14 mg/dl (6-23) 05/23/24 17:16 Creatinine 1.31 mg/dl (0.6-1.2) H 05/23/24 17:16 Est Cr Clr Drug Dosing 33.5 ml/min 05/23/24 17:16 Est GFR ( Amer) 47.0 ml/min 05/23/24 17:16 Est GFR (Non-Af Amer) 40.6 ml/min 05/23/24 17:16 BUN/Creatinine Ratio 10.7 (10-20) 05/23/24 17:16 Glucose 156 mg/dl (70-99(Fasting)) H 05/23/24 17:16 Calcium 6.7 mg/dl (8.6-10.3) L 05/23/24 17:16 Magnesium 0.7 mg/dl (1.7-2.4) L* 05/23/24 17:16 Total Bilirubin 0.2 mg/dl (0.2-1.0) 05/23/24 17:16 AST 21 U/L (13-39) 05/23/24 17:16 ALT 9 U/L (7-52) 05/23/24 17:16 Alkaline Phosphatase 70 U/L (34-104) 05/23/24 17:16 Troponin I High Sens 7.4 pg/ml (0-14) 05/23/24 17:16 Total Protein 5.6 gm/dl (6.0-8.3) L 05/23/24 17:16 Albumin 3.1 gm/dl (3.4-5.0) L 05/23/24 17:16 Globulin 2.5 gm/dl (2.5-4.0) 05/23/24 17:16 Albumin/Globulin Ratio 1.2 (0.9-2) 05/23/24 17:16 Lipase 18 U/L (11-82) 05/23/24 17:16 Urine Color Yellow 05/23/24 17:42 Urine Appearance Clear (Clear) 05/23/24 17:42 Urine pH 8.5 (4.5-7.5) H 05/23/24 17:42 Ur Specific Godley 1.017 (1.000-1.030) 05/23/24 17:42 Urine Protein 1+ (Negative) H 05/23/24 17:42 Urine Glucose (UA) Negative (Negative) 05/23/24 17:42 Urine Ketones Trace (Negative) H 05/23/24 17:42 Urine Blood Negative (Negative) 05/23/24 17:42 Urine Nitrite Negative (Negative) 05/23/24 17:42 Urine Bilirubin Negative (Negative) 05/23/24 17:42 Urine Urobilinogen Negative (Negative) 05/23/24 17:42 Ur Leukocyte Esterase Trace (Negative) H 05/23/24 17:42 Urine WBC (Auto) 0-5 /hpf (0-5) 05/23/24 17:42 Urine RBC (Auto) 0-2 /hpf (0-2) 05/23/24 17:42 U Hyaline Cast (Auto) 3-5 /lpf (0-2) H 05/23/24 17:42 U Epithel Cells (Auto) 0-2 /hpf (0-2) 05/23/24 17:42 Urine Bacteria (Auto) 4+ (None Seen) H 05/23/24 17:42 Lyme Disease Screen Negative (Negative) 05/23/24 17:16 Blood Type O Positive 05/23/24 17:42 Blood Type Recheck O Positive 05/23/24 17:51 Antibody Screen NEGATIVE 05/23/24 17:42 Crossmatch See Detail 05/23/24 17:42 Impressions Chest X-Ray 05/23/24 17:07 XR chest 1V portable CLINICAL HISTORY: weak COMPARISON STUDY: Chest CT February 25, 2024. Chest radiograph April 30, 2024. FINDINGS: No pneumothorax or pleural effusion. Emphysema is present. No consolidation to suggest pneumonia. Cardiomediastinal silhouette is normal. There has been no significant change in appearance of chest. IMPRESSION: No acute cardiopulmonary findings. Emphysema. ACT 112: Negative or not required by law. Electronically signed by: Cheng Arevalo M.D. 05/23/2024 5:48 PM Abdomen/Pelvis CT 05/23/24 17:31 CT OF THE ABDOMEN AND PELVIS WITH CONTRAST CLINICAL HISTORY: Lower abdominal pain. COMPARISON STUDY: CT of the abdomen and pelvis April 30, 2024. TECHNIQUE: Following IV administration of 94 mL of Optiray, axial images of the abdomen and pelvis were obtained from the lung bases to the proximal femurs. Images were reviewed in the axial, sagittal, and coronal planes. IV contrast was administered without complication. Automated exposure control was utilized for the study. A dose lowering technique was utilized adhering to the principles of ALARA. CT DOSE: 669.21 mGy.cm FINDINGS: A trace right pleural effusion has developed since prior exam. There is emphysema. A small cluster of tree-in-bud nodules within the lateral basal segment of the right lower lobe is also new since CT of April 30, 2024. No pneumatosis, free air or portal venous gas is present. There are calcified granulomas within the spleen. Left adrenal nodule is unchanged from earlier exams. There are no hepatic lesions. Pancreatic ductal dilatation is again noted with pancreas divisum. No evidence for acute pancreatitis. There is no hyd ronephrosis. A 4.3 cm infrarenal abdominal aortic aneurysm is unchanged. There is no evidence for rupture. There is extensive aortoiliac atherosclerotic plaque. The appendix is not visualized. Colonic diverticulosis is present. There is mild stranding adjacent to the distal sigmoid colon and the rectum. This is new since prior CT mild wall thickening is noted. This could be due to underdistention. There is no free air. There is no abscess. No abdominal or pelvic lymphadenopathy is present. IMPRESSION: 1. Interval development of a trace right pleural effusion with minimal tree-in-bud nodules within the right lower lobe suggestive of bronchiolitis. 2. Minimal stranding adjacent to the rectosigmoid junction with mild wall thickening. This is new since prior exam. This could reflect a mild nonspecific proctocolitis. No free air or abscess. 3. No bowel obstruction. 4. No change in a 4.3 cm abdominal aortic aneurysm. ACT 112: Negative or not required by law. Electronically signed by: Cheng Arevalo M.D. 05/23/2024 7:13 PM Code Status & VTE Plan Code Status Full code VTE Prophylaxis Plan VTE Prophylaxis will be ordered: Yes PG Care Time/CCT Total # of Minutes Spent Total Time Spent with Patient: Total time spent is greater than 50% in coordination of care (as documented) at patient's floor/unit and/or counseling patient: Coding Level of Care Code 40083 INT INP/OBS CARE 3/75MIN Diagnoses Symptomatic anemia D64.9 Acute GI bleeding K92.2 Hypokalemia E87.6 Afib I48.91 UTI (urinary tract infection) N39.0 Chronic pain syndrome G89.4
[2024-05-23] MEDS ORDERED: PIPERACILLIN/TAZOBACTAM 4.5 GM/100 ML BAG IV STA (21:14)
[2024-05-23] MEDS: PANTOPRAZOLE BOLUS/DRIP IV STA (21:35)
[2024-05-23 21:37] LABS: Magnesium 0.7 mg/dl (1.7-2.4)
[2024-05-23] MEDS: POTASSIUM CHLORIDE / WTR 10 MEQ/100 ML PLCT IV SCH (21:56)
[2024-05-23] MEDS ORDERED: ONDANSETRON INJ 2 MG/ML 2 ML VIAL IV PRN (22:45)
[2024-05-23] MEDS: MoRPHine SULFATE 4 MG/ML 1 ML CARP\\VIAL IV PRN (22:49)
[2024-05-23] MEDS ORDERED: DEXTROSE 50% 50 ML SYRINGE IV PRN (23:00)
[2024-05-23] MEDS ORDERED: GLUCAGON FOR INJ 1 MG VIAL IM PRN (23:00)
[2024-05-23] MEDS ORDERED: GLUCOSE 40% GEL 15 GM TUBE PO PRN (23:00)
[2024-05-23] MEDS ORDERED: CARBOHYDRATES FOR HYPOGLYCEMIA PO PRN (23:00)
[2024-05-23] MEDS ORDERED: GLUCOSE 10 TAB/TUBE PO PRN (23:00)
[2024-05-24] MEDS: PIPERACILLIN/TAZOBACTAM 4.5 GM in DEXTROSE 5% MINI-B 100 ML IV STA (00:55)
[2024-05-24] MEDS: LANTUS PER UNIT CHARGE SC SCH (01:02)
[2024-05-24] MEDS: MAGNESIUM SULFATE / D5W 1 GM/100 ML BAG IV SCH (01:05)
[2024-05-24] MEDS: ALBUTEROL HFA 8 GM INHALER INH PRN (03:01)
[2024-05-24] MEDS: PIPERACILLIN/TAZOBACTAM 4.5 GM in DEXTROSE 5% MINI-B 100 ML IV SCH (05:53)
[2024-05-24 06:55] LABS: Hematocrit (blood only) 28.3 % (37.0-47.0); Hemoglobin 8.7 g/dl (12.0-16.0); Mean Corpuscular Hemoglobin 27.1 pg (25.0-34.0); Mean Corpuscular Hgb Conc 30.7 g/dL (32.0-36.0); Mean Corpuscular Volume 88.2 fL (80.0-100.0); Mean Platelet Volume 9.9 fL (9.4-12.4); Platelet Count 438 K/uL (130-400); RDW Coefficient of Variation 17.5 % (11.5-14.5); RDW Standard Deviation 54.6 fL (36.4-46.3); Red Blood Count 3.21 M/uL (4.20-5.40); White Blood Count 7.56 K/ul (4.8-10.8)
[2024-05-24 07:26] LABS: BUN Creatinine Ratio 8.5 (10-20); Calcium 6.4 mg/dl (8.6-10.3); Creatinine Clr Calc Pharmacy 37.6 ml/min; Est GFR (African American) 53.9 ml/min; Est GFR (Non-African American) 46.5 ml/min; Magnesium 1.6 mg/dl (1.7-2.4)
[2024-05-24] MEDS: POTASSIUM CHLORIDE / WTR 10 MEQ/100 ML PLCT IV SCH (09:08)
[2024-05-24] MEDS: FLUTICASONE/VILANTEROL 100/25MCG 14 PUFFS/INHALER INH SCH (09:09)
[2024-05-24] MEDS: UMECLIDINIUM BROMIDE 62.5MCG/BLISTER 7 PUFFS/INHALER INH SCH (09:09)
--- NOTE | 2024-05-24 09:42 | Gastrointestinal Consultation ---
Date of Consultation May 24, 2024 Assessment & Plan (1) Symptomatic anemia: 74 year old female with history of COPD, thrombocytopenia, diaphragmatic hernia, type II DM, hyperlipidemia, hypertension, chronic pain syndrome and others below admitted through the ED w/ symptomatic anemia requiring 2 units RBCs. She denies any evidence of active GI blood loss and denies report of black or blood sotols. There has not been any documentation of bowel movements since admission. Her imaging shows colitis. Recommend stool cutlure and c.diff. Regarding her anemia, I discussed evaluation with EGD/Colonoscopy. She refuses these evaluation and does not wish to speak further about the testing. Nursing staff present in room at time of discussion. Would continue conservative measures of her anemia given her preference. Trend H&H. Monitor and document GI output. Transfuse PRN per primary service. NO NSAIDS. Hold ASA/Eliquis. PO PPI BID. If she is interested in endoscopic evaluation as an outpatient, please contact our office so we can arrange. Thank you for allowing us to participate in the care of this patient. Please call with any acute changes, questions or concerns. Please see addendum below with additional recommendation from my supervising physician. I spent a total of 60 minutes on the date of service in review of patient's record, and previously obtained information in person and appropriate medical visit, discussion and education of plan, with patient and/or caregiver, placing orders for tests/referral/procedures as medically necessary and documentation of pertinent clinical information in patient's medical records for their visit today. 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 Patient appears conmfortable at presnt. Patient ius anemic Was on eloquest at home at home. Has not used for 2 days. No evidence of bleeding. Abdomen Soft no tenderness. At the current time I would: 1. CW PPI BID 2. Check H and H q 12 hours. 3. Has not had endosocpy Patient advised refused at present Wants to think about it. Will reevaluate with her in the morning. Will follow with you History of Present Illness Reason for Consultation: anemia Requesting Physician: Sally Attending Physician: Elsi Zavala MD History of Present Illness 74 year old female with history of COPD, thrombocytopenia, diaphragmatic hernia, type II DM, hyperlipidemia, hypertension, chronic pain syndrome and others below admitted through the ED w/ symptomatic anemia - GI asked to evaluate. Pt was seen and evaluated, chart reviewed. Notes that from a GI standpoint she feels ok. She did report pretty severe abd pain overnight but on my evaluation this AM, she notes this is mild, improving. No nausea, vomiting. She was having nausea/vomiting earlier in the week - this was bilious. Now, she Is hungry, requesting food. She notes her stools have been moving well. Denies any black or bloody stools. HGB 7.8 --> 8.5 --> 6.2 --> 2 units --> 8.7 BUN 10 CTAP 2023:. Minimal stranding adjacent to the rectosigmoid junction with mild wall thickening. This is new since prior exam. This could reflect a mild nonspecific proctocolitis. No free air or abscess. No bowel obstruction. No change in a 4.3 cm abdominal aortic aneurysm. EGD: none Colonoscopy: none Allergies Allergy/AdvReac Type Severity Reaction Status Date / Time diflunisal AdvReac Intermediate HEART RACES Verified 05/23/24 19:23 Home Medications Medication Instructions Recorded Confirmed Type albuterol sulfate 90 mcg/actuation 2 puff inhalation Q6 PRN Shortness 08/28/20 05/23/24 History aerosol inhaler (Ventolin HFA) Of Breath Or Wheezing aspirin 81 mg tablet,delayed 81 mg PO QAM 08/28/20 05/23/24 History release (Uri Low Dose Aspirin) metformin 1,000 mg tablet 1,000 mg PO BID 08/28/20 05/23/24 History blood sugar diagnostic (OneTouch #50 ea 06/02/21 05/23/24 Rx Verio test strips) folic acid 1 mg tablet 1 mg PO QAM 03/24/22 05/23/24 History losartan 50 mg tablet 50 mg PO QAM 03/24/22 05/23/24 History ipratropium 0.5 mg-albuterol 3 mg 3 ml inhalation Q4H PRN shortness 12/13/22 05/23/24 Rx (2.5 mg base)/3 mL nebulization of breath #90 mL soln rosuvastatin 20 mg tablet 20 mg PO QAM 08/23/23 05/23/24 History diltiazem HCl 180 mg 180 mg PO QAM #30 caps 09/10/23 05/23/24 Rx capsule,extended release 24 hr budesonide-formoterol HFA 160 2 puff inhalation BID 09/21/23 05/23/24 History mcg-4.5 mcg/actuation aerosol inhaler pantoprazole 40 mg tablet,delayed 40 mg PO BID #60 tabs 11/24/23 05/23/24 Rx release guaifenesin 600 mg tablet, 1,200 mg PO Q12 PRN Congestion 02/10/24 05/23/24 History extended release 12 hr (Mucinex) cyanocobalamin (vitamin B-12) 500 1,000 mcg (2 x 500 mcg) PO QAM #30 02/13/24 05/23/24 Rx mcg tablet tabs formoterol fumarate 20 mcg/2 mL 20 mcg (2 mL) NEB BIDR #60 mL 02/13/24 05/23/24 Rx solution for nebulization (Perforomist) apixaban 5 mg tablet (Eliquis) 5 mg PO BID 04/30/24 05/23/24 History ferrous sulfate 325 mg (65 mg 325 mg PO BID 04/30/24 05/23/24 History iron) tablet fluticasone furoate 100 1 inh inhalation DAILY 04/30/24 05/23/24 History mcg-vilanterol 25 mcg/dose inhalation powder (Breo Ellipta) furosemide 20 mg tablet 20 mg PO DAILY PRN Edema 04/30/24 05/23/24 History insulin glargine 100 unit/mL (3 20 unit subcut BID 04/30/24 05/23/24 History mL) subcutaneous pen (Lantus Solostar U-100 Insulin) insulin lispro 100 unit/mL 8 unit subcut TID 04/30/24 05/23/24 History subcutaneous pen (Humalog KwikPen (U-100) Insulin) metoprolol succinate 50 mg 50 mg PO BID 04/30/24 05/23/24 History tablet,extended release 24 hr sodium chloride 7 % for 1 inh inhalation BID PRN 04/30/24 05/23/24 History nebulization SOB/WHEEZING oxycodone 5 mg tablet 10 mg (2 x 5 mg) PO TID PRN Pain 05/02/24 05/23/24 Rx #10 tabs budesonide 160 mcg-glycopyr 9 2 inh inhalation BID 05/23/24 05/23/24 History mcg-formot 4.8 mcg/actuation HFA inhaler (Breztri Aerosphere) umeclidinium 62.5 mcg/actuation 1 inh inhalation DAILY 05/23/24 05/23/24 History blister powder for inhalation (Incruse Ellipta) Patient History Medical History (Updated 05/23/24 @ 20:42 by Elliot Loja DO) Anemia Sepsis Acute confusion Severe muscle deconditioning COPD exacerbation Respiratory failure Hyperkalemia Acute hypercapnic respiratory failure TATY (acute kidney injury) AMS (altered mental status) Syncope Acute UTI Acute hypotension Chronic kidney disease, stage 3a Acute kidney injury Acute exacerbation of chronic low back pain Candidiasis of mouth and esophagus DVT prophylaxis Diabetes mellitus COPD (chronic obstructive pulmonary disease) Hypertension Hyperlipidemia Acute on chronic respiratory failure with hypoxia and hypercapnia Family History Other Family history non-contributory Social History Smoking Status: Current every day smoker Tobacco Type: Cigarettes Age Started Using Tobacco: 32; Cigarettes Per Day: 1/2 pack a day; Second Hand Exposure: No; Do You Dip or Chew Tobacco: No; Hx Alcohol Use: No Hx Substance Use: No Preferred Language: Yi Communication Ability: Effective Drier Transfer Car Operator Required: No Beliefs That Will Affect Care: None marital status: Current Living Situation: Spouse Current Living Situation Comment: Lives at home with How many Children do You have: 3 Feels Safe at Home: Yes Assistive Devices: Cane, Walker and Wheelchair Review of Systems Review of Systems: All other findings negative except as noted in HPI. Physical Exam Constitutional: WD/WN, vitals as above Respiratory: normal respiratory effort; no respiratory distress Cardiovascular: Rate/Rhythm: regular rate and regular rhythm Gastrointestinal (Abdomen): normal bowel sounds, soft, nontender, no hepatosplenomegaly Skin: no rashes, warm and dry Results & Data Vital Signs (Past 12 Hours) Vital Signs Temp Pulse Pulse Resp BP BP Pulse Ox 05/24/24 08:11 36.7 C 72 19 155/64 H 99 05/24/24 07:22 05/24/24 07:00 65 05/24/24 03:23 36.6 C 64 16 147/72 H 97 05/23/24 23:53 36.8 C 78 18 133/53 L 99 05/23/24 22:52 36.7 C 74 16 147/66 H 99 05/23/24 22:45 05/23/24 22:40 77 05/23/24 22:02 75 22 136/61 99 05/23/24 21:47 87 24 124/53 L 100 05/23/24 21:47 36.7 C 73 24 136/61 100 O2 Del Method O2 Flow Rate 05/24/24 08:11 Nasal Cannula 4 05/24/24 07:22 Nasal Cannula 4 05/24/24 07:00 05/24/24 03:23 Nasal Cannula 4 05/23/24 23:53 4 05/23/24 22:52 Nasal Cannula 4 05/23/24 22:45 Nasal Cannula 4 05/23/24 22:40 05/23/24 22:02 4 05/23/24 21:47 4 05/23/24 21:47 4 Laboratory Results 05/24/24 05/24/24 05/24/24 Range/Units 06:17 06:16 05:53 WBC 7.56 (4.8-10.8) K/ul RBC 3.21 L (4.20-5.40) M/uL Hgb 8.7 L (12.0-16.0) g/dl Hct 28.3 L (37.0-47.0) % MCV 88.2 (80.0-100.0) fL MCH 27.1 (25.0-34.0) pg MCHC 30.7 L (32.0-36.0) g/dL RDW Std Deviation 54.6 H (36.4-46.3) fL RDW Coeff of Dorcas 17.5 H (11.5-14.5) % Plt Count 438 H (130-400) K/uL MPV 9.9 (9.4-12.4) fL Immature Gran % (Auto) % Neut % (Auto) % Lymph % (Auto) % [place] % (Auto) % Eos % (Auto) % Baso % (Auto) % Neut # (Auto) (1.40-6.50) K/uL Lymph # (Auto) (1.20-3.40) K/uL [place] # (Auto) (0.11-0.59) K/uL Eos # (Auto) (0.00-0.50) K/uL Baso # (Auto) (0.00-0.20) K/uL Immature Gran # (Auto) (0.01-0.20) K/uL Polychromasia Stomatocytes Sodium 142 (136-145) mmol/L Potassium 3.0 L (3.5-5.1) mmol/L Chloride 99 (98-107) mmol/L Carbon Dioxide 36 H (21-32) mmol/L Anion Gap 7 (3-11) BUN 10 (6-23) mg/dl Creatinine 1.17 (0.6-1.2) mg/dl Est Cr Clr Drug Dosing 37.6 ml/min Est GFR ( Amer) 53.9 ml/min Est GFR (Non-Af Amer) 46.5 ml/min BUN/Creatinine Ratio 8.5 L (10-20) Glucose 106 H (70-99(Fasting)) mg/dl POC Glucose 125 H (70-99) mg/dl Calcium 6.4 L (8.6-10.3) mg/dl Magnesium 1.6 L (1.7-2.4) mg/dl Total Bilirubin (0.2-1.0) mg/dl AST (13-39) U/L ALT (7-52) U/L Alkaline Phosphatase (34-104) U/L Troponin I High Sens (0-14) pg/ml Total Protein (6.0-8.3) gm/dl Albumin (3.4-5.0) gm/dl Globulin (2.5-4.0) gm/dl Albumin/Globulin Ratio (0.9-2) Lipase (11-82) U/L Urine Color Urine Appearance (Clear) Urine pH (4.5-7.5) Ur Specific [place] (1.000-1.030) Urine Protein (Negative) Urine Glucose (UA) (Negative) Urine Ketones (Negative) Urine Blood (Negative) Urine Nitrite (Negative) Urine Bilirubin (Negative) Urine Urobilinogen (Negative) Ur Leukocyte Esterase (Negative) Urine WBC (Auto) (0-5) /hpf Urine RBC (Auto) (0-2) /hpf U Hyaline Cast (Auto) (0-2) /lpf U Epithel Cells (Auto) (0-2) /hpf Urine Bacteria (Auto) (None Seen) Lyme Disease Screen (Negative) Blood Type Blood Type Recheck Antibody Screen Crossmatch 05/23/24 05/23/24 05/23/24 Range/Units 23:33 17:51 17:42 WBC (4.8-10.8) K/ul RBC (4.20-5.40) M/uL Hgb (12.0-16.0) g/dl Hct (37.0-47.0) % MCV (80.0-100.0) fL MCH (25.0-34.0) pg MCHC (32.0-36.0) g/dL RDW Std Deviation (36.4-46.3) fL RDW Coeff of Dorcas (11.5-14.5) % Plt Count (130-400) K/uL MPV (9.4-12.4) fL Immature Gran % (Auto) % Neut % (Auto) % Lymph % (Auto) % [place] % (Auto) % Eos % (Auto) % Baso % (Auto) % Neut # (Auto) (1.40-6.50) K/uL Lymph # (Auto) (1.20-3.40) K/uL [place] # (Auto) (0.11-0.59) K/uL Eos # (Auto) (0.00-0.50) K/uL Baso # (Auto) (0.00-0.20) K/uL Immature Gran # (Auto) (0.01-0.20) K/uL Polychromasia Stomatocytes Sodium (136-145) mmol/L Potassium (3.5-5.1) mmol/L Chloride (98-107) mmol/L Carbon Dioxide (21-32) mmol/L Anion Gap (3-11) BUN (6-23) mg/dl Creatinine (0.6-1.2) mg/dl Est Cr Clr Drug Dosing ml/min Est GFR ( Amer) ml/min Est GFR (Non-Af Amer) ml/min BUN/Creatinine Ratio (10-20) Glucose (70-99(Fasting)) mg/dl POC Glucose 146 H (70-99) mg/dl Calcium (8.6-10.3) mg/dl Magnesium (1.7-2.4) mg/dl Total Bilirubin (0.2-1.0) mg/dl AST (13-39) U/L ALT (7-52) U/L Alkaline Phosphatase (34-104) U/L Troponin I High Sens (0-14) pg/ml Total Protein (6.0-8.3) gm/dl Albumin (3.4-5.0) gm/dl Globulin (2.5-4.0) gm/dl Albumin/Globulin Ratio (0.9-2) Lipase (11-82) U/L Urine Color Yellow Urine Appearance Clear (Clear) Urine pH 8.5 H (4.5-7.5) Ur Specific [place] 1.017 (1.000-1.030) Urine Protein 1+ H (Negative) Urine Glucose (UA) Negative (Negative) Urine Ketones Trace H (Negative) Urine Blood Negative (Negative) Urine Nitrite Negative (Negative) Urine Bilirubin Negative (Negative) Urine Urobilinogen Negative (Negative) Ur Leukocyte Esterase Trace H (Negative) Urine WBC (Auto) 0-5 (0-5) /hpf Urine RBC (Auto) 0-2 (0-2) /hpf U Hyaline Cast (Auto) 3-5 H (0-2) /lpf U Epithel Cells (Auto) 0-2 (0-2) /hpf Urine Bacteria (Auto) 4+ H (None Seen) Lyme Disease Screen (Negative) Blood Type O Positive Blood Type Recheck O Positive Antibody Screen NEGATIVE Crossmatch See Detail 05/23/24 Range/Units 17:16 WBC 7.59 (4.8-10.8) K/ul RBC 2.41 L (4.20-5.40) M/uL Hgb 6.2 L* (12.0-16.0) g/dl Hct 21.3 L (37.0-47.0) % MCV 88.4 (80.0-100.0) fL MCH 25.7 (25.0-34.0) pg MCHC 29.1 L (32.0-36.0) g/dL RDW Std Deviation 59.8 H (36.4-46.3) fL RDW Coeff of Dorcas 19.2 H (11.5-14.5) % Plt Count 524 H (130-400) K/uL MPV 10.0 (9.4-12.4) fL Immature Gran % (Auto) 1.3 % Neut % (Auto) 69.1 % Lymph % (Auto) 20.8 % [place] % (Auto) 6.9 % Eos % (Auto) 1.2 % Baso % (Auto) 0.7 % Neut # (Auto) 5.25 (1.40-6.50) K/uL Lymph # (Auto) 1.58 (1.20-3.40) K/uL [place] # (Auto) 0.52 (0.11-0.59) K/uL Eos # (Auto) 0.09 (0.00-0.50) K/uL Baso # (Auto) 0.05 (0.00-0.20) K/uL Immature Gran # (Auto) 0.10 (0.01-0.20) K/uL Polychromasia 1+ Stomatocytes 1+ Sodium 143 (136-145) mmol/L Potassium 3.0 L (3.5-5.1) mmol/L Chloride 95 L (98-107) mmol/L Carbon Dioxide 37 H (21-32) mmol/L Anion Gap 11 (3-11) BUN 14 (6-23) mg/dl Creatinine 1.31 H (0.6-1.2) mg/dl Est Cr Clr Drug Dosing 33.5 ml/min Est GFR ( Amer) 47.0 ml/min Est GFR (Non-Af Amer) 40.6 ml/min BUN/Creatinine Ratio 10.7 (10-20) Glucose 156 H (70-99(Fasting)) mg/dl POC Glucose (70-99) mg/dl Calcium 6.7 L (8.6-10.3) mg/dl Magnesium 0.7 L* (1.7-2.4) mg/dl Total Bilirubin 0.2 (0.2-1.0) mg/dl AST 21 (13-39) U/L ALT 9 (7-52) U/L Alkaline Phosphatase 70 (34-104) U/L Troponin I High Sens 7.4 (0-14) pg/ml Total Protein 5.6 L (6.0-8.3) gm/dl Albumin 3.1 L (3.4-5.0) gm/dl Globulin 2.5 (2.5-4.0) gm/dl Albumin/Globulin Ratio 1.2 (0.9-2) Lipase 18 (11-82) U/L Urine Color Urine Appearance (Clear) Urine pH (4.5-7.5) Ur Specific [place] (1.000-1.030) Urine Protein (Negative) Urine Glucose (UA) (Negative) Urine Ketones (Negative) Urine Blood (Negative) Urine Nitrite (Negative) Urine Bilirubin (Negative) Urine Urobilinogen (Negative) Ur Leukocyte Esterase (Negative) Urine WBC (Auto) (0-5) /hpf Urine RBC (Auto) (0-2) /hpf U Hyaline Cast (Auto) (0-2) /lpf U Epithel Cells (Auto) (0-2) /hpf Urine Bacteria (Auto) (None Seen) Lyme Disease Screen Negative (Negative) Blood Type Blood Type Recheck Antibody Screen Crossmatch PG Care Time/CCT Total # of Minutes Spent Total Time Spent with Patient: Total time spent is greater than 50% in coordination of care (as documented) at patient's floor/unit and/or counseling patient: Coding Level of Care Code 34050 INT INP/OBS CARE 2MIN Diagnoses Symptomatic anemia D64.9
[2024-05-24] MEDS: ALBUT/IPRATROP 3MG/0.5MG NEB 3 ML VIAL INH PRN (10:51)
[2024-05-24 11:56] LABS: Hematocrit (blood only) 30.2 % (37.0-47.0); Hemoglobin 9.3 g/dl (12.0-16.0)
[2024-05-24] MEDS: ACETAMINOPHEN 1,000 MG/100 ML VIAL IV PRN (13:48)
--- NOTE | 2024-05-24 15:48 | Discharge Summary ---
Date of Service May 24, 2024 Admission HPI Per Admitting Provider The patient is a 74-year-old female with a past medical history including acute on chronic respiratory failure with hypoxia, CHF, UTIs, COPD with exacerbations, current tobacco use, metabolic encephalopathy, atrial fibrillation, atrial for with RVR, anemia, CKD, hypertension, AAA and diabetes mellitus type 2. She presents to the emergency department symptoms as noted above. Her hemoglobin was found to be 6.2, she was Hemoccult positive, CT scan suggested a possible nonspecific proctocolitis. She was written for 2 units PRBCs from the ED, and referred for evaluation for admission. The patient was recently bit by 2 ticks, and has been placed empirically on doxycycline, however, Lyme test was negative in the ED this evening Admission Exam Per Admitting Provider The patient is awake, alert and oriented 3, well developed and well nourished, normocephalic and atraumatic, lying in bed and in no acute distress. HEENT--PERRL, EOMI, mucous membranes and oropharynx normal Neck--supple. No JVD. No bruits. Thyroid normal, trachea midline, no adenopathy. Heart--normal S1 and S2. No murmurs, rubs or gallops. Lungs--decreased breath sounds throughout. No respiratory distress, no accessory muscle use. Abdomen--normal bowel sounds and soft. Nontender. Nondistended, no hernias or masses, no organomegaly. Extremities- No edema. Dermatologic--skin is dry Neurologic--cranial nerves II through XII grossly intact. Rheumatologic--normal range of motion. Psychiatric--normal affect. Principal Diagnosis Symptomatic anemia Acute GI bleed Urinary tract infection Acute proctocolitis Right lower lobe bronchiolitis Hypokalemia Discharge Exam General appearance: Awake, conversant. Able to move all 4 of her extremities. Behavior: Very carter and impulsive Discharge Data Allergies Allergy/AdvReac Type Severity Reaction Status Date / Time diflunisal AdvReac Intermediate HEART RACES Verified 05/23/24 19:23 Consultations 05/23/24 19:27 ED Decision to Admit Stat 05/23/24 22:45 Consult Gastroenterology Routine Ordered Studies 05/23/24 17:31 CT abd pelvis IV con only Stat Hospital Course (1) Symptomatic anemia: (2) Acute GI bleeding: (3) Hypokalemia: (4) Afib: (5) UTI (urinary tract infection): (6) Chronic pain syndrome: Plan Symptomatic anemia/acute GI bleeding- Hemoglobin 6.2 on admission, with range 8.5-10 Patient received 2 units PRBCs from the ED CT scan abdomen pelvis suggested possible proctocolitis, with patient having generalized abdominal symptoms Heme positive stool reported by the ED Patient was started on IV Protonix She was treated with n.p.o. She was seen in consultation by GI. EGD and colonoscopy were offered but the patient declined She has been demanding solid food and would not except a clear liquid diet Nonspecific proctocolitis Empiric Zosyn 4.5 g IV every 8 hours Urinary tract infection- Follow urine culture and sensitivity Zosyn 4.5 g IV every 8 hours Right lower lobe bronchiolitis- Zosyn as noted Nasal cannula oxygen, titrate to keep pulse ox around 94% Hypokalemia- Potassium 3.0 on admission Give 2K riders and repeat Diabetes mellitus- Reduce glargine from 20 to 6 units subcu twice daily Placed on Accu-Cheks with NovoLog SSI The patient is well-known to me from previous encounter. She is in general very impulsive in her decision making. Today she wanted to leave AMA. I spoke to her and told her about the risks associated with leaving AGAINST MEDICAL ADVICE. She is in complete sound state of mind to make her own decisions and is able to reason through. She has been allowed to leave AMA. Total Time Total Time Spent Total Time Spent (In Minutes): 35 Discharge Plan Discharge Items Patient Disposition: Against Medical Advice Reason For Visit: GI BLEED, ANEMIA NEEDING TRANSFUSION Activity: Resume your previous activity Non-emergency contact: Primary Care Provider Follow-up/Referrals: Rosi Borges CRNP [Primary Care Provider] - Pending Studies at Discharge: Yes Stand-Alone Forms: [employer], Smoking Cessation Medications and DC Order Prescriptions: Continued aspirin [Uri Low Dose Aspirin] 81 mg Tablet,Delayed Release (Dr/Ec) 81 mg PO QAM Hold Instructions: Resume on 11/28/23. hold until seen by primary care albuterol sulfate [Ventolin HFA] 90 mcg/actuation HFA aerosol inhaler 2 puff INHALATION Q6 PRN (Reason: Shortness Of Breath Or Wheezing) metformin 1,000 mg tablet 1,000 mg PO BID (DME) OneTouch Verio test strips Strip See Rx Instructions .ROUTE .MEDSUPPLY Qty: 50 3RF Rx Instructions: test blood sugar 1-2 times per day losartan 50 mg tablet 50 mg PO QAM folic acid 1 mg tablet 1 mg PO QAM rosuvastatin 20 mg tablet 20 mg PO QAM budesonide-formoterol 160-4.5 mcg/actuation HFA aerosol inhaler 2 puff INHALATION BID pantoprazole 40 mg Tablet,Delayed Release (Dr/Ec) 40 mg PO BID Qty: 60 0RF Rx Instructions: qam ipratropium-albuterol 0.5 mg-3 mg(2.5 mg base)/3 mL solution for nebulization 3 ml inhalation Q4H PRN (Reason: shortness of breath) Qty: 90 0RF diltiazem HCl 180 mg Capsule,Extended Release 24hr 180 mg PO QAM Qty: 30 5RF guaifenesin [Mucinex] 600 mg tablet extended release 12hr 1,200 mg PO Q12 PRN (Reason: Congestion) formoterol fumarate [Perforomist] 20 mcg/2 mL Solution For Nebulization 20 mcg NEB BIDR Qty: 60 0RF cyanocobalamin (vitamin B-12) 500 mcg Tablet 1,000 mcg PO QAM Qty: 30 0RF ferrous sulfate 325 mg (65 mg iron) Tablet 325 mg PO BID insulin lispro [Humalog KwikPen Insulin] 100 unit/mL insulin pen 8 unit SUBCUT TID Rx Instructions: before meals sodium chloride 7 % solution for nebulization 1 inh INHALATION BID PRN (Reason: SOB/WHEEZING) insulin glargine [Lantus Solostar U-100 Insulin] 100 unit/mL (3 mL) insulin pen 20 unit SUBCUT BID furosemide 20 mg tablet 20 mg PO DAILY PRN (Reason: Edema) metoprolol succinate 50 mg tablet extended release 24 hr 50 mg PO BID Rx Instructions: UNABLE TO VERIFY THIS MED, LAST FILLED 01/20/24 FOR 30 DAYS. fluticasone furoate-vilanterol [Breo Ellipta] 100-25 mcg/dose blister with device 1 inh INHALATION DAILY oxycodone 5 mg tablet 10 mg PO TID PRN (Reason: Pain) Qty: 10 0RF Incruse Ellipta 62.5 mcg/actuation Blister With Device 1 inh INHALATION DAILY Breztri [employer] 160-9-4.8 mcg/actuation Hfa Aerosol Inhaler 2 inh INHALATION BID Held Eliquis 5 mg tablet 5 mg PO BID Hold Instructions: Resume on 05/31/24. Until seen by PCP Discharge Orders: Left Against Medical Advice (Routine); Ordered 05/24/24 Ordered By: Elsi Zavala Admission Data Admit Date/Time: 05/23/24 20:59 Attending Provider: Elsi Zavala Admit Provider: Danie Mckay Primary Care Provider: Rosi Borges Other Providers: Renata Sepulveda Jr; Danie Mckay Coding Level of Care Code 81058 INP/OBS DISCH >30 MIN Diagnoses Symptomatic anemia D64.9 Acute GI bleeding K92.2 Hypokalemia E87.6 Afib I48.91 UTI (urinary tract infection) N39.0 Chronic pain syndrome G89.4
--- NOTE | 2024-05-25 05:59 | Electrocardiogram Report ---
Test Reason : Blood Pressure : / mmHG Vent. Rate : 084 BPM Atrial Rate : 084 BPM P-R Int : 158 ms QRS Dur : 090 ms QT Int : 416 ms P-R-T Axes : 074 013 063 degrees QTc Int : 491 ms Sinus rhythm with Premature atrial complexes with Aberrant conduction Prolonged QT Cannot rule out Inferior infarct Abnormal ECG When compared with ECG of 30-APR-2024 09:00, No significant change was found Confirmed by Mickey Lobato ([id number]) on 05/25/2024 5:59:45 AM Referred By: Confirmed By:Mickey Lobato
== END 2024-05-24 14:28 | disposition left against medical advice (07) | DRG 386 ==
LOC: ED 17:02 → 4W 20:59 → SUATTDRO 20:59 → INTOOBSV 20:59 → 4W 22:13
DX: Z79.899 Other long term (current) drug therapy; Z79.82 Long term (current) use of aspirin; G89.4 Chronic pain syndrome; D64.9 Anemia, unspecified; K51.311 Ulcerative (chronic) rectosigmoiditis with rectal bleeding; Z88.8 Allergy status to other drugs, medicaments and biological substances; I48.91 Unspecified atrial fibrillation; J21.9 Acute bronchiolitis, unspecified; F17.210 Nicotine dependence, cigarettes, uncomplicated; Z79.01 Long term (current) use of anticoagulants; E87.6 Hypokalemia; N39.0 Urinary tract infection, site not specified; E11.22 Type 2 diabetes mellitus with diabetic chronic kidney disease; I50.9 Heart failure, unspecified; Z79.84 Long term (current) use of oral hypoglycemic drugs; I13.0 Hypertensive heart and chronic kidney disease with heart failure and stage 1 through stage 4 chronic kidney disease, or unspecified chronic kidney disease; N18.31 Chronic kidney disease, stage 3a; J44.9 Chronic obstructive pulmonary disease, unspecified; Z79.4 Long term (current) use of insulin

== ENCOUNTER 2024-11-25 05:38 | Inpatient (IN) ==
[2024-11-25 06:13] LABS: iSTAT Creatinine 1.3 mg/dl (0.6-1.3); iSTAT Hemoglobin 10.2 g/dl (12.0-16.0); iSTAT Ionized Calcium 1.09 mmol/l (1.12-1.32)
--- NOTE | 2024-11-25 06:14 | Emergency Department Note ---
Impression & Plan Acute hypercapnic respiratory failure, Acute UTI, COVID, Right lower lobe pneumonia, Acute hyperglycemia, Sepsis admit to the [facility] ED Provider Note NAME: DANIELLA FLANNERY AGE: 74 SEX: Female INFORMANT: EMS ED PROVIDER(S): Yun Villagomez DO CHIEF COMPLAINT: shortness of breath and altered mental status; hypoxia PLAN: Disposition: admit to the [facility]ist MEDICAL DECISION MAKING: this is a 74-year-old female patient with an extensive past medical history and respiratory disease who continues to smoke. Patient was found with an altered mental status at home by her . explains that she has had an overall decline in the past 24 hours with increasing shortness of breath and decreasing mental status. explains that an episode like this happens approximately every 6 months for which he needs to call EMS. EMS found the patient in a semiresponsive state with significant tachypnea and O2 saturation of 72%. Patient had soiled herself. They were able to increase oxygen saturation with high flow oxygen and inline DuoNeb treatments. Patient also received IV Solu-Medrol. chest x-ray was concerning for a right lower lobe pneumonia. Urine was concerning for urinary tract infection. The patient was medicated with IV Rocephin. White blood cell count was 14.7. Lactate was normal but procalcitonin was elevated at 2.50. This was concerning for sepsis. On physical exam, the patient appeared to be somewhat dehydrated. She was initially given a 500 cc bolus of saline. However, following this bolus, she seemed to have audible rales and therefore I did not administer any other crystalloid per sepsis protocol. Patient was COVID-positive. ABG revealed a pH of 7.1 with a pCO2 of 89 and a pO2 of 155. I had a conversation with the patient's about her CODE STATUS. He explained that the patient would not want to be on a ventilator but would want to have CPR and cardiac meds if her heart were to stop. I discussed the case with the [facility] Hospitalist and they will evaluate for further inpatient care. Care/management discussed with: school operations manager and hospitalist . I spoke with the patient's on the phone he confirmed that the patient would not want to be on a ventilator but she would want to receive CPR and cardiac medications for cardiac arrest. Triage Nursing notes: reviewed and agree With them. Vital Signs: reviewed and remarkable for tachypnea, tachycardia, hypoxia Additional History obtained from: EMS and the patient's Chronic Medical/Social Conditions affecting care: oxygen dependent; continued tobacco abuse; severe COPD Prior/ Outside/ External records reviewed: previous inpatient medical records from 2023 Differential Diagnosis: hypercapnic respiratory failure, pneumonia, URI, bronchitis Diagnostics, independently interpreted by me: ECG: sinus tachycardia at a rate of 123 with PACs Cardiac Monitoring: sinus tachycardia at a rate of 122 Imaging studies: portable chest x-ray: Emphysematous changes with right lower lobe opacity concerning for pneumonia as per my independent interpretation. HPI: 74 year old Female arrives for evaluation of Altered mental status and shortness of breath. patient's states that she has had worsening shortness of breath over the past 48 hours and he found her in a semiresponsive state This morning. EMS was called. They found the patient on her usual 4 L of oxygen with an O2 saturation in the low 70s. PAST MEDICAL HISTORY: See Below, PAST SURGICAL HISTORY: See Below, SOCIAL HISTORY: See Below, HOME MEDICATIONS: see list ALLERGIES: see list VITALS: See Below PHYSICAL EXAMINATION: General: Patient is barely responsive to loud verbal stimuli. She will open her eyes occasionally. HEENT: Head - normocephalic and atraumatic. Pupils are equal, round, and reactive to light. Extraocular eye muscles are intact, and sclera are anicteric. Nose - moist nasal mucosa without discharge. Mouth - moist buccal mucosa. Oropharynx is nonerythematous and there is no tonsillar exudate or edema noted. Neck: Supple; no JVD, nuchal rigidity, cervical lymphadenopathy. Heart: Tachycardic rate and regular rhythm. There is a normal S1 and S2 with no murmurs, clicks, or gallops appreciated. Lungs: rhonchi at both lung bases with expiratory wheezes throughout Abdomen: Soft, completely nontender, nondistended, with good bowel sounds. There are no palpable pulsatile masses or hepatosplenomegaly. There is no guarding, rigidity, or rebound noted. Extremities: No evidence of cyanosis, clubbing, or edema. There are easily palpable peripheral pulses. Skin: warm and dry with poor turgor and no rashes. Emergency department treatment: ekg monitor tech, supplemental oxygen by oxy mask, IV Rocephin, IV normal saline bolus Emergency Department course: The patient was evaluated emergently in room B-1. A complete history and physical was performed. The patient was noted to have pants that were full of stool and urine. She was somewhat responsive. A septic protocol was performed. She was hemodynamically stable upon my initial evaluation. A stat portable chest x-ray was performed. An upper respiratory bio fire test was performed and was ultimately positive for COVID. An ABG was performed which showed evidence of significant hypercapnic respiratory failure. She had a Gutierrez catheter placed and urine specimen sent. She was given a dose of IV Rocephin to cover both her urine and her lungs which were concerning for pneumonia. I had a conversation with the patient's about CODE STATUS. He declined wanting the patient to be intubated. I discussed the case with the [facility]ist and they will evaluate for further inpatient care. I have personally spent greater than75 minutes of critical care time in the direct management of this patient. This includes bedside care, interpretation of diagnostic studies, and testing, discussion with consultants, patient, and family members, and other required patient management activities. This 75 minutes is in excess of all separately billable procedures. Past Med/Surg History Problem List (Updated 11/25/24 @ 07:53 by Yun Villagomez DO) Sepsis (Acute) Acute hyperglycemia (Acute) Right lower lobe pneumonia (Acute) COVID (Acute) Acute UTI (Acute) Acute hypercapnic respiratory failure (Acute) Weakness (Acute) Hypokalemia (Acute) Symptomatic anemia (Acute) Acute GI bleeding (Acute) Tobacco abuse Acute on chronic respiratory failure with hypoxia Left lower lobe pneumonia CHF (congestive heart failure) (Acute) Acute UTI (urinary tract infection) (Acute) Pleural effusion (Acute) Shortness of breath (Acute) Abdominal pain (Acute) Acute hypoxemic respiratory failure (Acute) Hypomagnesemia (Acute) COPD with acute exacerbation (Acute) Pleural effusion (Acute) CHF (congestive heart failure) (Acute) Pneumonia (Acute) Acute on chronic respiratory failure with hypoxia and hypercapnia (Acute) Ambulatory dysfunction Current smoker Pneumonia (Acute) Acute respiratory distress (Acute) Altered mental status (Acute) Tachycardia (Acute) Hypomagnesemia (Acute) Metabolic encephalopathy Hyperglycemia Acute exacerbation of chronic obstructive pulmonary disease (Acute) Hypoxia (Acute) Afib COPD, very severe Encounter for hospice care discussion Advanced care planning/counseling discussion Palliative care by specialist Anxiety about health Weakness generalized Dyspnea and respiratory abnormalities Atrial fibrillation with rapid ventricular response (Acute) Dilated pancreatic duct Positive blood culture Abdominal pain Abdominal pain Lower extremity edema Respiratory distress (Acute) Hypertension (Acute) COPD exacerbation (Acute) Respiratory acidosis (Acute) Elevated lactic acid level (Acute) Tachycardia (Acute) Hypomagnesemia (Acute) Acute bronchitis with chronic obstructive pulmonary disease (COPD) SOB (shortness of breath) (Acute) Anemia (Acute) Chest tightness (Acute) UTI (urinary tract infection) Chronic pain syndrome SOB (shortness of breath) (Acute) COPD exacerbation (Acute) Dizziness (Acute) Acute UTI (Acute) Hypomagnesemia (Acute) Anemia B12 deficiency COPD exacerbation (Acute) Hyperlipidemia Dysphagia Chronic kidney disease HTN (hypertension) Thrombocythemia Chronic low back pain (Chronic) Diaphragmatic hernia (Chronic 10/31/11) Overweight (BMI 25.0-29.9) (Chronic) AAA (abdominal aortic aneurysm) Left peroneal nerve palsy (Chronic) History of knee replacement (Acute) Knee pain, left (Acute) Right knee pain (Acute) Diabetes type 2, uncontrolled (Acute) COPD (chronic obstructive pulmonary disease) (Acute) Medical History (Updated 11/25/24 @ 07:53 by Yun Villagomez DO) Anemia Sepsis Acute confusion Severe muscle deconditioning COPD exacerbation Respiratory failure Hyperkalemia Acute hypercapnic respiratory failure TATY (acute kidney injury) AMS (altered mental status) Syncope Acute UTI Acute hypotension Chronic kidney disease, stage 3a Acute kidney injury Acute exacerbation of chronic low back pain Candidiasis of mouth and esophagus DVT prophylaxis Diabetes mellitus COPD (chronic obstructive pulmonary disease) Hypertension Hyperlipidemia Acute on chronic respiratory failure with hypoxia and hypercapnia Family History Other Family history non-contributory Social History Smoking Status: Current every day smoker Tobacco Type: Cigarettes Age Started Using Tobacco: 32; Cigarettes Per Day: 1/2 pack a day; Second Hand Exposure: No; Do You Dip or Chew Tobacco: No; Hx Alcohol Use: No Hx Substance Use: No Preferred Language: Syriac Communication Ability: Effective Sales Team Recruiter Required: No Beliefs That Will Affect Care: None marital status: Current Living Situation: Spouse Current Living Situation Comment: Lives at home with How many Children do You have: 3 Feels Safe at Home: Yes Assistive Devices: Cane, Oxygen - Continuous, Walker and Wheelchair Allergies Allergies Allergy/AdvReac Type Severity Reaction Status Date / Time diflunisal AdvReac Intermediate HEART RACES Verified 05/23/24 19:23 Home Meds Home Medications Medication Instructions Recorded Confirmed albuterol sulfate 90 mcg/actuation 2 puff inhalation Q6 PRN Shortness 08/28/20 05/23/24 aerosol inhaler (Ventolin HFA) Of Breath Or Wheezing aspirin 81 mg tablet,delayed 81 mg PO QAM 08/28/20 05/23/24 release (Uri Low Dose Aspirin) metformin 1,000 mg tablet 1,000 mg PO BID 08/28/20 05/23/24 folic acid 1 mg tablet 1 mg PO QAM 03/24/22 05/23/24 losartan 50 mg tablet 50 mg PO QAM 03/24/22 05/23/24 rosuvastatin 20 mg tablet 20 mg PO QAM 08/23/23 05/23/24 budesonide-formoterol HFA 160 2 puff inhalation BID 09/21/23 05/23/24 mcg-4.5 mcg/actuation aerosol inhaler guaifenesin 600 mg tablet, 1,200 mg PO Q12 PRN Congestion 02/10/24 05/23/24 extended release 12 hr (Mucinex) apixaban 5 mg tablet (Eliquis) 5 mg PO BID 04/30/24 05/23/24 ferrous sulfate 325 mg (65 mg 325 mg PO BID 04/30/24 05/23/24 iron) tablet fluticasone furoate 100 1 inh inhalation DAILY 04/30/24 05/23/24 mcg-vilanterol 25 mcg/dose inhalation powder (Breo Ellipta) furosemide 20 mg tablet 20 mg PO DAILY PRN Edema 04/30/24 05/23/24 insulin glargine 100 unit/mL (3 20 unit subcut BID 04/30/24 05/23/24 mL) subcutaneous pen (Lantus Solostar U-100 Insulin) insulin lispro 100 unit/mL 8 unit subcut TID 04/30/24 05/23/24 subcutaneous pen (Humalog KwikPen (U-100) Insulin) metoprolol succinate 50 mg 50 mg PO BID 04/30/24 05/23/24 tablet,extended release 24 hr sodium chloride 7 % for 1 inh inhalation BID PRN 04/30/24 05/23/24 nebulization SOB/WHEEZING budesonide 160 mcg-glycopyr 9 2 inh inhalation BID 05/23/24 05/23/24 mcg-formot 4.8 mcg/actuation HFA inhaler (Breztri Aerosphere) umeclidinium 62.5 mcg/actuation 1 inh inhalation DAILY 05/23/24 05/23/24 blister powder for inhalation (Incruse Ellipta) Previous Rx's Medication Instructions Recorded blood sugar diagnostic (OneTouch #50 ea 06/02/21 Verio test strips) ipratropium 0.5 mg-albuterol 3 mg 3 ml inhalation Q4H PRN shortness 12/13/22 (2.5 mg base)/3 mL nebulization of breath #90 mL soln diltiazem HCl 180 mg 180 mg PO QAM #30 caps 09/10/23 capsule,extended release 24 hr pantoprazole 40 mg tablet,delayed 40 mg PO BID #60 tabs 11/24/23 release cyanocobalamin (vitamin B-12) 500 1,000 mcg (2 x 500 mcg) PO QAM #30 02/13/24 mcg tablet tabs formoterol fumarate 20 mcg/2 mL 20 mcg (2 mL) NEB BIDR #60 mL 02/13/24 solution for nebulization (Perforomist) oxycodone 5 mg tablet 10 mg (2 x 5 mg) PO TID PRN Pain 05/02/24 #10 tabs Results & Data (ED) Vital Signs Vital Signs - 24 hr 11/25/24 05:21 11/25/24 05:21 11/25/24 05:44 Temperature 37.3 C Temperature Source Oral Pulse Rate 122 H 124 H Pulse Rate [Apical] Pulse Rate from SpO2 Sensor Pulse Rhythm Irregular Pulse Strength Normal Respiratory Rate 44 H Respiratory Effort / Characteristics Short of Breath Short of Breath Respiratory Depth Shallow Shallow Respiratory Pattern Regular Blood Pressure 149/71 H Blood Pressure [Right Arm] Blood Pressure Mean 97 Blood Pressure Mean [Right Arm] Blood Pressure Position Lying Blood Pressure Position [Right Arm] Pulse Oximetry 100 Oxygen Delivery Method Nasal Cannula Nebulizer Nasal Cannula Nebulizer Oxygen Flow Rate 20 20 Fraction of Inspired Oxygen Sepsis Recent Fever Within 48 Hours Yes Sepsis New/Unexplained Change in Mental Status Yes Sepsis Action Taken by Nursing Physician Notified 11/25/24 06:00 11/25/24 06:07 11/25/24 06:12 Temperature Temperature Source Pulse Rate 122 H 124 H Pulse Rate [Apical] Pulse Rate from SpO2 Sensor Pulse Rhythm Pulse Strength Respiratory Rate 40 H 48 H Respiratory Effort / Characteristics Respiratory Depth Respiratory Pattern Blood Pressure 121/40 L Blood Pressure [Right Arm] Blood Pressure Mean 45 Blood Pressure Mean [Right Arm] Blood Pressure Position Blood Pressure Position [Right Arm] Pulse Oximetry 100 99 100 Oxygen Delivery Method Nebulizer Nasal Cannula Non-rebreather Nebulizer Oxygen Flow Rate 10 10 10 Fraction of Inspired Oxygen Sepsis Recent Fever Within 48 Hours Sepsis New/Unexplained Change in Mental Status Sepsis Action Taken by Nursing 11/25/24 06:15 11/25/24 06:30 11/25/24 06:45 Temperature 37.8 C H 37.8 C H Temperature Source Gutierrez Cath ( Temp Sensing) Gutierrez Cath ( Temp Sensing) Pulse Rate 121 H Pulse Rate [Apical] 120 H 119 H Pulse Rate from SpO2 Sensor 121 H Pulse Rhythm Pulse Strength Respiratory Rate 41 H 38 H 40 H Respiratory Effort / Characteristics Pursed Lip Pursed Lip Respiratory Depth Shallow Shallow Respiratory Pattern Tachypnea Blood Pressure 149/65 H Blood Pressure [Right Arm] 144/59 H 141/60 H Blood Pressure Mean 93 Blood Pressure Mean [Right Arm] 87 87 Blood Pressure Position Blood Pressure Position [Right Arm] Sitting Sitting Pulse Oximetry 99 96 94 Oxygen Delivery Method Oxymask Oxymask Oxymask Oxygen Flow Rate 10 8 6 Fraction of Inspired Oxygen Sepsis Recent Fever Within 48 Hours Sepsis New/Unexplained Change in Mental Status Sepsis Action Taken by Nursing 11/25/24 07:00 11/25/24 07:53 11/25/24 08:08 Temperature Temperature Source Pulse Rate 119 H 120 H Pulse Rate [Apical] 118 H Pulse Rate from SpO2 Sensor Pulse Rhythm Pulse Strength Respiratory Rate 38 H 30 H 43 H Respiratory Effort / Characteristics Short of Breath Spontaneous Short of Breath Respiratory Depth Shallow Respiratory Pattern Tachypnea Blood Pressure 144/60 H Blood Pressure [Right Arm] Blood Pressure Mean 97 Blood Pressure Mean [Right Arm] Blood Pressure Position Blood Pressure Position [Right Arm] Pulse Oximetry 91 92 92 Oxygen Delivery Method Oxymask BiPAP Oxygen Flow Rate 6 Fraction of Inspired Oxygen 50 50 Sepsis Recent Fever Within 48 Hours Sepsis New/Unexplained Change in Mental Status Sepsis Action Taken by Nursing Laboratory Data 11/25/24 05:50 11/25/24 05:50 Lab Results 11/25/24 11/25/24 11/25/24 Range/Units 05:50 05:56 06:01 WBC 14.73 H (4.8-10.8) K/ul RBC 3.38 L (4.20-5.40) M/uL Hgb 8.8 L (12.0-16.0) g/dl POC Hgb 9.5 L 10.2 L (12.0-16.0) g/dl Hct 30.1 L (37.0-47.0) % POC Hct 28 L 30 L (37-47) % MCV 89.1 (80.0-100.0) fL MCH 26.0 (25.0-34.0) pg MCHC 29.2 L (32.0-36.0) g/dL RDW Std Deviation 61.6 H (36.4-46.3) fL RDW Coeff of Dorcas 19.0 H (11.5-14.5) % Plt Count 434 H (130-400) K/uL MPV 10.3 (9.4-12.4) fL Immature Gran % (Auto) 0.8 % Neut % (Auto) 89.9 % Lymph % (Auto) 5.4 % Yolo % (Auto) 3.5 % Eos % (Auto) 0.1 % Baso % (Auto) 0.3 % Neut # (Auto) 13.24 H (1.40-6.50) K/uL Lymph # (Auto) 0.80 L (1.20-3.40) K/uL Yolo # (Auto) 0.52 (0.11-0.59) K/uL Eos # (Auto) 0.01 (0.00-0.50) K/uL Baso # (Auto) 0.04 (0.00-0.20) K/uL Immature Gran # (Auto) 0.12 (0.01-0.20) K/uL Absolute Nucleated RBC 0.02 (0.00-0.12) K/uL Nucleated RBC % (auto) 0.1 % POC pH 7.19 L* (7.35-7.45) POC pCO2 90 H (35-46) mmHg POC pO2 155 H (80-95) mmHg POC HCO3 34 H (19-24) jean/L POC Total CO2 37 H 33 H (24-31) mmol/L POC Base Excess 6.0 H (-9-1.8) jean/L POC ABG O2 Sat 99.0 H (90-95) % POC Sodium 140 139 (135-144) mmol/L Sodium 142 (136-145) mmol/L POC Potassium 4.8 5.0 (3.3-5.0) mmol/L Potassium 5.1 (3.5-5.1) mmol/L POC Chloride 102 (101-112) mmol/L Chloride 102 (98-107) mmol/L Carbon Dioxide 32 (21-32) mmol/L Anion Gap 8 (3-11) POC Anion Gap 10.0 L (16-25) mmol/L POC BUN 38 H (7-18) mg/dl BUN 31 H (6-23) mg/dl Creatinine 1.32 H (0.6-1.2) mg/dl POC Creatinine 1.3 (0.6-1.3) mg/dl Est Cr Clr Drug Dosing 25.6 ml/min eGFR 42.90 BUN/Creatinine Ratio 23.5 H (10-20) Glucose 224 H (70-99(Fasting)) mg/dl POC Glucose (other) 216 H (70-99) mg/dl Lactate 1.1 (0.4-2.0) mmol/L Calcium 8.5 L (8.6-10.3) mg/dl POC Ioniz Calcium Benny 1.09 L (1.12-1.32) mmol/l Magnesium 1.7 (1.7-2.4) mg/dl Total Bilirubin 0.2 (0.2-1.0) mg/dl Direct Bilirubin TNP AST 19 (13-39) U/L ALT 8 (7-52) U/L Alkaline Phosphatase 85 (34-104) U/L Troponin I High Sens 22.7 H (0-14) pg/ml Total Protein 6.2 (6.0-8.3) gm/dl Albumin 3.2 L (3.4-5.0) gm/dl Procalcitonin 2.50 H (0-0.5) ng/ml Urine Color Urine Appearance (Clear) Urine pH (4.5-7.5) Ur Specific Munson (1.000-1.030) Urine Protein (Negative) Urine Glucose (UA) (Negative) Urine Ketones (Negative) Urine Blood (Negative) Urine Nitrite (Negative) Urine Bilirubin (Negative) Urine Urobilinogen (Negative) Ur Leukocyte Esterase (Negative) Urine WBC (Auto) (0-5) /hpf Urine RBC (Auto) (0-2) /hpf U Hyaline Cast (Auto) (0-2) /lpf U Epithel Cells (Auto) (0-2) /hpf Urine Bacteria (Auto) (None Seen) Granular Casts (None Prsent) /lpf Urine Yeast (None Prsent) Adenovirus (PCR) (NotDetected) B. pertussis DNA (PCR) (NotDetected) B.parapertussis DNA PCR (NotDetected) C. pneumoniae DNA (PCR) (NotDetected) Coronavirus OC43 (PCR) (NotDetected) Coronavirus HKU1 (PCR) (NotDetected) Coronavirus 229E (PCR) (NotDetected) SARS-CoV-2 (PCR) (NotDetected) Coronavirus NL63 (PCR) (NotDetected) Human Metapneumovir PCR (NotDetected) Influenza Type A (PCR) (NotDetected) Influenza Type B (PCR) (NotDetected) M. pneumoniae (PCR) (NotDetected) Parainfluenza 1 (PCR) (NotDetected) Parainfluenza 2 (PCR) (NotDetected) Parainfluenza 3 (PCR) (NotDetected) Parainfluenza 4 (PCR) (NotDetected) RSV (PCR) (NotDetected) Entero/Rhino (PCR) (NotDetected) 11/25/24 11/25/24 Range/Units 06:35 Unknown WBC (4.8-10.8) K/ul RBC (4.20-5.40) M/uL Hgb (12.0-16.0) g/dl POC Hgb (12.0-16.0) g/dl Hct (37.0-47.0) % POC Hct (37-47) % MCV (80.0-100.0) fL MCH (25.0-34.0) pg MCHC (32.0-36.0) g/dL RDW Std Deviation (36.4-46.3) fL RDW Coeff of Dorcas (11.5-14.5) % Plt Count (130-400) K/uL MPV (9.4-12.4) fL Immature Gran % (Auto) % Neut % (Auto) % Lymph % (Auto) % Yolo % (Auto) % Eos % (Auto) % Baso % (Auto) % Neut # (Auto) (1.40-6.50) K/uL Lymph # (Auto) (1.20-3.40) K/uL Yolo # (Auto) (0.11-0.59) K/uL Eos # (Auto) (0.00-0.50) K/uL Baso # (Auto) (0.00-0.20) K/uL Immature Gran # (Auto) (0.01-0.20) K/uL Absolute Nucleated RBC (0.00-0.12) K/uL Nucleated RBC % (auto) % POC pH (7.35-7.45) POC pCO2 (35-46) mmHg POC pO2 (80-95) mmHg POC HCO3 (19-24) jean/L POC Total CO2 (24-31) mmol/L POC Base Excess (-9-1.8) jean/L POC ABG O2 Sat (90-95) % POC Sodium (135-144) mmol/L Sodium (136-145) mmol/L POC Potassium (3.3-5.0) mmol/L Potassium (3.5-5.1) mmol/L POC Chloride (101-112) mmol/L Chloride (98-107) mmol/L Carbon Dioxide (21-32) mmol/L Anion Gap (3-11) POC Anion Gap (16-25) mmol/L POC BUN (7-18) mg/dl BUN (6-23) mg/dl Creatinine (0.6-1.2) mg/dl POC Creatinine (0.6-1.3) mg/dl Est Cr Clr Drug Dosing ml/min eGFR BUN/Creatinine Ratio (10-20) Glucose (70-99(Fasting)) mg/dl POC Glucose (other) (70-99) mg/dl Lactate (0.4-2.0) mmol/L Calcium (8.6-10.3) mg/dl POC Ioniz Calcium Benny (1.12-1.32) mmol/l Magnesium (1.7-2.4) mg/dl Total Bilirubin (0.2-1.0) mg/dl Direct Bilirubin 0.0 AST (13-39) U/L ALT (7-52) U/L Alkaline Phosphatase (34-104) U/L Troponin I High Sens (0-14) pg/ml Total Protein (6.0-8.3) gm/dl Albumin (3.4-5.0) gm/dl Procalcitonin (0-0.5) ng/ml Urine Color Yellow Urine Appearance Turbid A (Clear) Urine pH 5.0 (4.5-7.5) Ur Specific Munson 1.019 (1.000-1.030) Urine Protein 3+ H (Negative) Urine Glucose (UA) Negative (Negative) Urine Ketones 1+ H (Negative) Urine Blood 1+ H (Negative) Urine Nitrite Negative (Negative) Urine Bilirubin Negative (Negative) Urine Urobilinogen Negative (Negative) Ur Leukocyte Esterase Negative (Negative) Urine WBC (Auto) 6-10 H (0-5) /hpf Urine RBC (Auto) 0-2 (0-2) /hpf U Hyaline Cast (Auto) >20 H (0-2) /lpf U Epithel Cells (Auto) 11-20 H (0-2) /hpf Urine Bacteria (Auto) 4+ H (None Seen) Granular Casts Present A (None Prsent) /lpf Urine Yeast Present A (None Prsent) Adenovirus (PCR) Not Detected (NotDetected) B. pertussis DNA (PCR) Not Detected (NotDetected) B.parapertussis DNA PCR Not Detected (NotDetected) C. pneumoniae DNA (PCR) Not Detected (NotDetected) Coronavirus OC43 (PCR) Not Detected (NotDetected) Coronavirus HKU1 (PCR) Not Detected (NotDetected) Coronavirus 229E (PCR) Not Detected (NotDetected) SARS-CoV-2 (PCR) DETECTED A (NotDetected) Coronavirus NL63 (PCR) Not Detected (NotDetected) Human Metapneumovir PCR Not Detected (NotDetected) Influenza Type A (PCR) Not Detected (NotDetected) Influenza Type B (PCR) Not Detected (NotDetected) M. pneumoniae (PCR) Not Detected (NotDetected) Parainfluenza 1 (PCR) Not Detected (NotDetected) Parainfluenza 2 (PCR) Not Detected (NotDetected) Parainfluenza 3 (PCR) Not Detected (NotDetected) Parainfluenza 4 (PCR) Not Detected (NotDetected) RSV (PCR) Not Detected (NotDetected) Entero/Rhino (PCR) Not Detected (NotDetected) Administered Medications Discontinued Medications Sodium Chloride (Nss) 500 mls @ 999 mls/hr IV .Q31M ONE Stop: 11/25/24 06:36 Last Infusion: 11/25/24 06:52 Dose: Infused Documented By: Admin: 11/25/24 06:21 Dose: 999 mls/hr Documented By: RUSTY Ceftriaxone Sodium (Rocephin) 1,000 mg in 50 mls @ 100 mls/hr IV NOW STA Stop: 11/25/24 07:39 Last Infusion: 11/25/24 08:12 Dose: Infused Documented By: Admin: 11/25/24 07:19 Dose: 100 mls/hr Documented By: ALFREDO Levalbuterol HCl (Levalbuterol 1.25 Mg/3 Ml Neb) 1.25 mg NEB NOW STA Stop: 11/25/24 08:08 Last Admin: 11/25/24 08:08 Dose: 1.25 mg Documented By: Marco Imaging Data Radiologist's Impression: Chest X-Ray 11/25/24 05:51 EXAM: XR chest 1V portable CLINICAL HISTORY: RESPIRATORY DISTRESS. TECHNIQUE: An X-ray image of the chest was obtained in 1 view: AP projection. COMPARISON: No prior studies are available for comparison. FINDINGS: Pulmonary Parenchyma: Diffuse bilateral thickened reticulations, fibrotic parenchymal bands and right lower lung zone alveolar shadows. Obliterated right costophrenic angle. No evidence of left pleural effusion or pleural thickening. Heart and Mediastinum: Patient is rotated, mediastinum and cardiac shadow can't be properly assessed. Bony Thorax: Bony thorax appears intact without fractures or deformities. Soft Tissues: Soft tissues overlying the chest wall are unremarkable. IMPRESSION: 1. Diffuse bilateral thickened reticulations, fibrotic parenchymal bands, and right lower lung zone alveolar shadows could be due to interstitial pneumonitis, pulmonary congestion is advised for clinical correlation. 2. Obliterated right costophrenic angle could be either due to pleural effusion, pleural thickening or obscured by lower lung zone opacities. Electronically signed by Bipin Vigil 11-25-2024 06:35 AM Discharge Plan Visit Data Chief Complaint: Respiratory Distress Stated Complaint: Respiratory Distress ED Provider: Yun Villagomez Discharge Problem: Acute hypercapnic respiratory failure, Acute UTI, COVID, Right lower lobe pneumonia, Acute hyperglycemia, Sepsis Forms Stand Alone Forms: [facility] bead Button Prescriptions Prescriptions: No Action aspirin [Uri Low Dose Aspirin] 81 mg Tablet,Delayed Release (Dr/Ec) 81 mg PO QAM Hold Instructions: Resume on 11/28/23. hold until seen by primary care albuterol sulfate [Ventolin HFA] 90 mcg/actuation HFA aerosol inhaler 2 puff INHALATION Q6 PRN (Reason: Shortness Of Breath Or Wheezing) metformin 1,000 mg tablet 1,000 mg PO BID (DME) OneTouch Verio test strips Strip See Rx Instructions .ROUTE .MEDSUPPLY Qty: 50 3RF Rx Instructions: test blood sugar 1-2 times per day losartan 50 mg tablet 50 mg PO QAM folic acid 1 mg tablet 1 mg PO QAM rosuvastatin 20 mg tablet 20 mg PO QAM budesonide-formoterol 160-4.5 mcg/actuation HFA aerosol inhaler 2 puff INHALATION BID pantoprazole 40 mg Tablet,Delayed Release (Dr/Ec) 40 mg PO BID Qty: 60 0RF Rx Instructions: qam ipratropium-albuterol 0.5 mg-3 mg(2.5 mg base)/3 mL solution for nebulization 3 ml inhalation Q4H PRN (Reason: shortness of breath) Qty: 90 0RF diltiazem HCl 180 mg Capsule,Extended Release 24hr 180 mg PO QAM Qty: 30 5RF guaifenesin [Mucinex] 600 mg tablet extended release 12hr 1,200 mg PO Q12 PRN (Reason: Congestion) formoterol fumarate [Perforomist] 20 mcg/2 mL Solution For Nebulization 20 mcg NEB BIDR Qty: 60 0RF cyanocobalamin (vitamin B-12) 500 mcg Tablet 1,000 mcg PO QAM Qty: 30 0RF ferrous sulfate 325 mg (65 mg iron) Tablet 325 mg PO BID insulin lispro [Humalog KwikPen Insulin] 100 unit/mL insulin pen 8 unit SUBCUT TID Rx Instructions: before meals sodium chloride 7 % solution for nebulization 1 inh INHALATION BID PRN (Reason: SOB/WHEEZING) insulin glargine [Lantus Solostar U-100 Insulin] 100 unit/mL (3 mL) insulin pen 20 unit SUBCUT BID furosemide 20 mg tablet 20 mg PO DAILY PRN (Reason: Edema) metoprolol succinate 50 mg tablet extended release 24 hr 50 mg PO BID Rx Instructions: UNABLE TO VERIFY THIS MED, LAST FILLED 01/20/24 FOR 30 DAYS. Eliquis 5 mg tablet 5 mg PO BID Hold Instructions: Resume on 05/31/24. Until seen by PCP fluticasone furoate-vilanterol [Breo Ellipta] 100-25 mcg/dose blister with device 1 inh INHALATION DAILY oxycodone 5 mg tablet 10 mg PO TID PRN (Reason: Pain) Qty: 10 0RF Incruse Ellipta 62.5 mcg/actuation Blister With Device 1 inh INHALATION DAILY Breztri Aerosphere 160-9-4.8 mcg/actuation Hfa Aerosol Inhaler 2 inh INHALATION BID Referrals Referrals: Rosi Borges CRNP [Primary Care Provider] -
[2024-11-25 06:16] LABS: Basophils # (auto) 0.04 K/uL (0.00-0.20); Basophils % (auto) 0.3 %; Eosinophils # (auto) 0.01 K/uL (0.00-0.50); Eosinophils % (auto) 0.1 %; Hematocrit (blood only) 30.1 % (37.0-47.0); Hemoglobin 8.8 g/dl (12.0-16.0); Immature Granulocytes # (auto) 0.12 K/uL (0.01-0.20); Immature Granulocytes % (auto) 0.8 %; Lymphocytes % (auto) 5.4 %; Mean Corpuscular Hgb Conc 29.2 g/dL (32.0-36.0); Mean Corpuscular Volume 89.1 fL (80.0-100.0); Mean Platelet Volume 10.3 fL (9.4-12.4); Monocytes # (auto) 0.52 K/uL (0.11-0.59); Monocytes % (auto) 3.5 %; Neutrophils # (auto) 13.24 K/uL (1.40-6.50); Neutrophils % (auto) 89.9 %; Nucleated RBC # (auto) 0.02 K/uL (0.00-0.12); Nucleated RBC % (auto) 0.1 %; Platelet Count 434 K/uL (130-400); RDW Standard Deviation 61.6 fL (36.4-46.3); Red Blood Count 3.38 M/uL (4.20-5.40); White Blood Count 14.73 K/ul (4.8-10.8)
[2024-11-25] MEDS: SODIUM CHLORIDE 0.9% 500 ML IV ONE ×3 (06:21→16:59)
[2024-11-25 06:32] LABS: Alanine Aminotransferase 8 U/L (7-52); Albumin Level 3.2 gm/dl (3.4-5.0); Alkaline Phosphatase 85 U/L (34-104); Anion Gap 8 (3-11); Aspartate Aminotransferase 19 U/L (13-39); BUN Creatinine Ratio 23.5 (10-20); Bilirubin,Total 0.2 mg/dl (0.2-1.0); Blood Urea Nitrogen 31 mg/dl (6-23); Calcium 8.5 mg/dl (8.6-10.3); Carbon Dioxide 32 mmol/L (21-32); Chloride 102 mmol/L (98-107); Creatinine Clr Calc Pharmacy 25.6 ml/min; Glucose 224 mg/dl (70-99(Fasting)); Magnesium 1.7 mg/dl (1.7-2.4); Potassium 5.1 mmol/L (3.5-5.1); Sodium 142 mmol/L (136-145); Total Protein 6.2 gm/dl (6.0-8.3)
[2024-11-25 06:34] LABS: Appearance Urine Turbid (Clear); Bacteria Urine Automated 4+ (None Seen); Bilirubin Urine Negative (Negative); Blood Urine 1+ (Negative); Cast Urine Automated >20 /lpf (0-2); Color Urine Yellow; Glucose Urine UA Negative (Negative); Granular Casts Urine Present /lpf (None Prsent); Ketones Urine 1+ (Negative); Leukocyte Esterase Urine Negative (Negative); Nitrite Urine Negative (Negative); Protein Urine 3+ (Negative); RBC Urine Automated 0-2 /hpf (0-2); Specific Gravity Urine 1.019 (1.000-1.030); Urobilinogen Urine Negative (Negative)
--- NOTE | 2024-11-25 06:36 | XRay Report ---
EXAM: XR chest 1V portable CLINICAL HISTORY: RESPIRATORY DISTRESS. TECHNIQUE: An X-ray image of the chest was obtained in 1 view: AP projection. COMPARISON: No prior studies are available for comparison. FINDINGS: Pulmonary Parenchyma: Diffuse bilateral thickened reticulations, fibrotic parenchymal bands and right lower lung zone alveolar shadows. Obliterated right costophrenic angle. No evidence of left pleural effusion or pleural thickening. Heart and Mediastinum: Patient is rotated, mediastinum and cardiac shadow can't be properly assessed. Bony Thorax: Bony thorax appears intact without fractures or deformities. Soft Tissues: Soft tissues overlying the chest wall are unremarkable. IMPRESSION: 1. Diffuse bilateral thickened reticulations, fibrotic parenchymal bands, and right lower lung zone alveolar shadows could be due to interstitial pneumonitis, pulmonary congestion is advised for clinical correlation. 2. Obliterated right costophrenic angle could be either due to pleural effusion, pleural thickening or obscured by lower lung zone opacities. Electronically signed by Bipin Vigil 11-25-2024 06:35 AM
[2024-11-25 06:40] LABS: iSTAT Arterial Blood Gas HCO3 34 meg/L (19-24); iSTAT Arterial Blood Gas pCO2 90 mmHg (35-46); iSTAT Arterial Blood Gas pH 7.19 (7.35-7.45); iSTAT Arterial Blood Gas pO2 155 mmHg (80-95); iSTAT Carbon Dioxide 37 mmol/L (24-31); iSTAT Hematocrit 28 % (37-47); iSTAT Hemoglobin 9.5 g/dl (12.0-16.0); iSTAT Potassium 4.8 mmol/L (3.3-5.0); iSTAT Sodium 140 mmol/L (135-144)
[2024-11-25 06:41] LABS: Troponin I High Sensitivity 22.7 pg/ml (0-14)
[2024-11-25 07:12] LABS: Adenovirus PCR Not Detected (NotDetected); Bordetella parapertussis PCR Not Detected (NotDetected); Bordetella pertussis PCR Not Detected (NotDetected); Chlamydia pneumoniae PCR Not Detected (NotDetected); Coronavirus 229E PCR Not Detected (NotDetected); Coronavirus CoV-2 (COVID19)PCR DETECTED (NotDetected); Coronavirus HKU1 PCR Not Detected (NotDetected); Coronavirus NL63 PCR Not Detected (NotDetected); Coronavirus OC43PCR Not Detected (NotDetected); Human Metapneumovirus PCR Not Detected (NotDetected); Influenza A PCR Not Detected (NotDetected); Influenza B PCR Not Detected (NotDetected); Mycoplasma pneumoniae PCR Not Detected (NotDetected); Parainfluenza Virus 1 PCR Not Detected (NotDetected); Parainfluenza Virus 2 PCR Not Detected (NotDetected); Parainfluenza Virus 3 PCR Not Detected (NotDetected); Parainfluenza Virus 4 PCR Not Detected (NotDetected); Respiratory Syncytial VirusPCR Not Detected (NotDetected); Rhinovirus/Enterovirus PCR Not Detected (NotDetected)
[2024-11-25] MEDS: cefTRIAXone SODIUM 1,000 MG/50 ML BAG IV STA (07:19)
--- NOTE | 2024-11-25 07:54 | History & Physical Report ---
Date of Service November 25, 2024 Assessment & Plan (1) Acute hypercapnic respiratory failure: (2) CHF (congestive heart failure): (3) Afib: (4) Diabetes type 2, uncontrolled: Plan 74-year-old female who presents with obtundation due to hypercarbia from acute on chronic respiratory failure with hypercarbia. Patient continues to be a current smoker. Patient also tested positive for COVID Acute on chronic respiratory failure hypercarbia. Patient is currently on BiPAP. Repeat ABG in an hour and a half after BiPAP. Because of tachycardia use Xopenex and ipratropium. Patient is on dexamethasone to reduce inflammation. With concern for infiltrate on chest x-ray patient will be given ceftriaxone and azithromycin. Regarding her positive COVID status patient is on dexamethasone at this time Patient has a history of atrial fibrillation chronically on Eliquis therapy. She is in sinus tachycardia on the EKG on presentation. She is obtunded and unable to take p.o. at this time. If her dilatation does not improve with reducing her hypercarbia we may consider anticoagulating her parenterally. Patient is unable to take p.o. medication she will have metoprolol backup for tachycardia. Pt has a history of HFpEF with last Echo 11/15 Regarding her diabetes. Her Lantus dose reduced by 50% she will be given a sliding scale will be checked every 6 while she is NPO. Goals of care discussion with her by both myself and Dr. Mathis reveals her to be a conditional code. She does not wish to have any type of respiratory support past BiPAP therapy however she does want cardiac resuscitation if her heart were to stop. Overall patient outlook is guarded at this time History of Present Illness Primary Care Provider: BRET Espinoza 74-year-old female patient with an extensive past medical history of respiratory disease who continues to smoke. Patient was found with an altered mental status at home by her , with increasing shortness of breath and decreasing mental status. She arrives by ambulance with a significant tachypnea and O2 saturation of 72%. prehospital nebs and solumedrol Covid positive chest x-ray was concerning for a right lower lobe pneumonia. Urine was concerning for urinary tract infection. The patient was medicated with IV Rocephin. ABG revealed a pH of 7.1 with a pCO2 of 89 and a pO2 of 155. I had a convers ation with the patient's about her CODE STATUS. He explained that the patient would not want to be on a ventilator but would want to have CPR and cardiac meds if her heart were to stop. I re contated her and informed him of her grave condition Allergies Allergy/AdvReac Type Severity Reaction Status Date / Time diflunisal AdvReac Intermediate HEART RACES Verified 05/23/24 19:23 Home Medications Medication Instructions Recorded Confirmed Type albuterol sulfate 90 mcg/actuation 2 puff inhalation Q6 PRN Shortness 08/28/20 11/25/24 History aerosol inhaler (Ventolin HFA) Of Breath Or Wheezing aspirin 81 mg tablet,delayed 81 mg PO QAM 08/28/20 11/25/24 History release (Uri Low Dose Aspirin) metformin 1,000 mg tablet 1,000 mg PO BID 08/28/20 11/25/24 History blood sugar diagnostic (OneTouch #50 ea 06/02/21 11/25/24 Rx Verio test strips) folic acid 1 mg tablet 1 mg PO QAM 03/24/22 11/25/24 History losartan 50 mg tablet 50 mg PO QAM 03/24/22 11/25/24 History ipratropium 0.5 mg-albuterol 3 mg 3 ml inhalation Q4H PRN shortness 12/13/22 11/25/24 Rx (2.5 mg base)/3 mL nebulization of breath #90 mL soln rosuvastatin 20 mg tablet 20 mg PO QAM 08/23/23 11/25/24 History diltiazem HCl 180 mg 180 mg PO QAM #30 caps 09/10/23 11/25/24 Rx capsule,extended release 24 hr budesonide-formoterol HFA 160 2 puff inhalation BID 09/21/23 11/25/24 History mcg-4.5 mcg/actuation aerosol inhaler pantoprazole 40 mg tablet,delayed 40 mg PO BID #60 tabs 11/24/23 11/25/24 Rx release guaifenesin 600 mg tablet, 1,200 mg PO Q12 PRN Congestion 02/10/24 11/25/24 History extended release 12 hr (Mucinex) cyanocobalamin (vitamin B-12) 500 1,000 mcg (2 x 500 mcg) PO QAM #30 02/13/24 11/25/24 Rx mcg tablet tabs formoterol fumarate 20 mcg/2 mL 20 mcg (2 mL) NEB BIDR #60 mL 02/13/24 11/25/24 Rx solution for nebulization (Perforomist) apixaban 5 mg tablet (Eliquis) 5 mg PO BID 04/30/24 11/25/24 History ferrous sulfate 325 mg (65 mg 325 mg PO BID 04/30/24 11/25/24 History iron) tablet fluticasone furoate 100 1 inh inhalation DAILY 04/30/24 11/25/24 History mcg-vilanterol 25 mcg/dose inhalation powder (Breo Ellipta) furosemide 20 mg tablet 20 mg PO DAILY PRN Edema 04/30/24 11/25/24 History insulin glargine 100 unit/mL (3 20 unit subcut BID 04/30/24 11/25/24 History mL) subcutaneous pen (Lantus Solostar U-100 Insulin) insulin lispro 100 unit/mL 8 unit subcut TID 04/30/24 11/25/24 History subcutaneous pen (Humalog KwikPen (U-100) Insulin) metoprolol succinate 50 mg 50 mg PO BID 04/30/24 11/25/24 History tablet,extended release 24 hr sodium chloride 7 % for 1 inh inhalation BID PRN 04/30/24 11/25/24 History nebulization SOB/WHEEZING oxycodone 5 mg tablet 10 mg (2 x 5 mg) PO TID PRN Pain 05/02/24 11/25/24 Rx #10 tabs budesonide 160 mcg-glycopyr 9 2 inh inhalation BID 05/23/24 11/25/24 History mcg-formot 4.8 mcg/actuation HFA inhaler (Breztri Aerosphere) umeclidinium 62.5 mcg/actuation 1 inh inhalation DAILY 05/23/24 11/25/24 History blister powder for inhalation (Incruse Ellipta) Past Med/Surg History Problem List (Updated 11/25/24 @ 17:16 by Edilson Durand MD, [facility]– [place] Hypotension Sepsis (Acute) Acute hyperglycemia (Acute) Right lower lobe pneumonia (Acute) COVID (Acute) Acute UTI (Acute) Acute hypercapnic respiratory failure (Acute) Weakness (Acute) Hypokalemia (Acute) Symptomatic anemia (Acute) Acute GI bleeding (Acute) Tobacco abuse Acute on chronic respiratory failure with hypoxia Left lower lobe pneumonia CHF (congestive heart failure) (Acute) Acute UTI (urinary tract infection) (Acute) Pleural effusion (Acute) Shortness of breath (Acute) Abdominal pain (Acute) Acute hypoxemic respiratory failure (Acute) Hypomagnesemia (Acute) COPD with acute exacerbation (Acute) Pleural effusion (Acute) CHF (congestive heart failure) (Acute) Pneumonia (Acute) Acute on chronic respiratory failure with hypoxia and hypercapnia (Acute) Ambulatory dysfunction Current smoker Pneumonia (Acute) Acute respiratory distress (Acute) Altered mental status (Acute) Tachycardia (Acute) Hypomagnesemia (Acute) Metabolic encephalopathy Hyperglycemia Acute exacerbation of chronic obstructive pulmonary disease (Acute) Hypoxia (Acute) Afib COPD, very severe Encounter for hospice care discussion Advanced care planning/counseling discussion Palliative care by specialist Anxiety about health Weakness generalized Dyspnea and respiratory abnormalities Atrial fibrillation with rapid ventricular response (Acute) Dilated pancreatic duct Positive blood culture Abdominal pain Abdominal pain Lower extremity edema Respiratory distress (Acute) Hypertension (Acute) COPD exacerbation (Acute) Respiratory acidosis (Acute) Elevated lactic acid level (Acute) Tachycardia (Acute) Hypomagnesemia (Acute) Acute bronchitis with chronic obstructive pulmonary disease (COPD) SOB (shortness of breath) (Acute) Anemia (Acute) Chest tightness (Acute) UTI (urinary tract infection) Chronic pain syndrome SOB (shortness of breath) (Acute) COPD exacerbation (Acute) Dizziness (Acute) Acute UTI (Acute) Hypomagnesemia (Acute) Anemia B12 deficiency COPD exacerbation (Acute) Hyperlipidemia Dysphagia Chronic kidney disease HTN (hypertension) Thrombocythemia Chronic low back pain (Chronic) Diaphragmatic hernia (Chronic 10/31/11) Overweight (BMI 25.0-29.9) (Chronic) AAA (abdominal aortic aneurysm) Left peroneal nerve palsy (Chronic) History of knee replacement (Acute) Knee pain, left (Acute) Right knee pain (Acute) Diabetes type 2, uncontrolled (Acute) COPD (chronic obstructive pulmonary disease) (Acute) Medical History (Updated 11/25/24 @ 17:16 by [facility] Anemia Sepsis Acute confusion Severe muscle deconditioning COPD exacerbation Respiratory failure Hyperkalemia Acute hypercapnic respiratory failure TATY (acute kidney injury) AMS (altered mental status) Syncope Acute UTI Acute hypotension Chronic kidney disease, stage 3a Acute kidney injury Acute exacerbation of chronic low back pain Candidiasis of mouth and esophagus DVT prophylaxis Diabetes mellitus COPD (chronic obstructive pulmonary disease) Hypertension Hyperlipidemia Acute on chronic respiratory failure with hypoxia and hypercapnia Family History Other Family history non-contributory Social History Smoking Status: Current every day smoker Tobacco Type: Cigarettes Age Started Using Tobacco: 32; Cigarettes Per Day: 10; Second Hand Exposure: Yes; Do You Dip or Chew Tobacco: No; Hx Alcohol Use: No Hx Substance Use: No Preferred Language: Romanian Communication Ability: Effective Seed Sorter Required: No Beliefs That Will Affect Care: None marital status: Current Living Situation: Spouse Current Living Situation Comment: With Juan How many Children do You have: 3 Feels Safe at Home: Yes Assistive Devices: Cane, Walker and Wheelchair Physical Exam Physical Exam: Patient is unresponsive even to deep sternal rub She is being ventilated with BiPAP with a backup rate pulling volumes of around 300 she is very poor air movement but no wheezes She is tachycardic without murmurs heard Abdomen soft Extremities are without edema Results & Data Results & Data Vital Signs (Past 12 Hours) Vital Signs Temp Pulse Pulse Resp BP BP Pulse Ox 11/25/24 07:00 119 H 38 H 144/60 H 91 11/25/24 06:45 100.0 F H 119 H 40 H 141/60 H 94 11/25/24 06:30 100.0 F H 120 H 38 H 144/59 H 96 11/25/24 06:15 121 H 41 H 149/65 H 99 11/25/24 06:12 100 11/25/24 06:07 124 H 48 H 99 11/25/24 06:00 122 H 40 H 121/40 L 100 11/25/24 05:44 124 H 11/25/24 05:21 99.1 F 122 H 44 H 149/71 H 100 11/25/24 05:21 O2 Del Method O2 Flow Rate 11/25/24 07:00 Oxymask 6 11/25/24 06:45 Oxymask 6 11/25/24 06:30 Oxymask 8 11/25/24 06:15 Oxymask 10 11/25/24 06:12 Nebulizer 10 11/25/25 06:07 Nasal Cannula, Non-rebreather 11/25/24 06:00 Nebulizer 11/25/24 05:44 11/25/24 05:21 Nasal Cannula, Nebulizer 11/25/24 05:21 Nasal Cannula, Nebulizer 20 Laboratory Results Reviewed CBC reviewed chemistry Chest x-ray looks like mild failure with right lower lobe possible infiltrate EKG shows sinus tachycardia Code Status & VTE Plan VTE Prophylaxis Plan VTE Prophylaxis will be ordered: Yes PG Care Time/CCT Total # of Minutes Spent Total Time Spent with Patient: Total time spent is greater than 50% in coordination of care (as documented) at patient's floor/unit and/or counseling patient: Coding Level of Care Code 23959 INT INP/OBS CARE 375MIN Diagnoses Acute hypercapnic respiratory failure J96.02 CHF (congestive heart failure) I50.9 Afib I48.91 Diabetes type 2, uncontrolled E11.65 Glycemic state: with hyperglycemia (4) Diabetes type 2, uncontrolled Glycemic state: with hyperglycemia Qualified Code(s): E11.65 - Type 2 diabetes mellitus with hyperglycemia
[2024-11-25] MEDS: LEVALBUTEROL 1.25 MG/3 ML NEB NEB STA (08:08)
[2024-11-25 09:21] LABS: iSTAT Arterial Blood Gas HCO3 30 meg/L (19-24); iSTAT Arterial Blood Gas pCO2 81 mmHg (35-46); iSTAT Arterial Blood Gas pH 7.18 (7.35-7.45); iSTAT Arterial Blood Gas pO2 49 mmHg (80-95); iSTAT Carbon Dioxide 33 mmol/L (24-31); iSTAT Hematocrit 28 % (37-47); iSTAT Hemoglobin 9.5 g/dl (12.0-16.0); iSTAT Potassium 4.7 mmol/L (3.3-5.0); iSTAT Sample Type OTHR; iSTAT Sodium 139 mmol/L (135-144)
[2024-11-25 09:22] LABS: iSTAT Arterial Blood Gas HCO3 30 meg/L (19-24); iSTAT Arterial Blood Gas pCO2 77 mmHg (35-46); iSTAT Arterial Blood Gas pH 7.19 (7.35-7.45); iSTAT Arterial Blood Gas pO2 69 mmHg (80-95); iSTAT Carbon Dioxide 32 mmol/L (24-31); iSTAT Hematocrit 27 % (37-47); iSTAT Hemoglobin 9.2 g/dl (12.0-16.0); iSTAT Potassium 4.6 mmol/L (3.3-5.0); iSTAT Sodium 139 mmol/L (135-144)
[2024-11-25] MEDS ORDERED: GLUCAGON FOR INJ 1 MG VIAL SQ PRN (09:26)
[2024-11-25] MEDS: LEVALBUTEROL 1.25 MG/3 ML NEB NEB SCH (10:23)
[2024-11-25] MEDS: IPRATROPIUM BROMIDE NEB SOLN 0.02% 0.5MG/2.5ML VIAL NEB SCH (10:23)
[2024-11-25] MEDS: AZITHROMYCIN 500 MG in SODIUM CHLORIDE 0.9% 250 ML IV SCH (11:21)
[2024-11-25] MEDS: DEXAMETHASONE SOD INJ 4 MG/ML VIAL IV ONE (11:21)
[2024-11-25] MEDS: METOPROLOL TARTRATE 1 MG/ML VIAL IV SCH (11:22)
[2024-11-25] MEDS: FUROSEMIDE 40 MG/4 ML VIAL IV ONE (11:22)
[2024-11-25] MEDS: LANTUS PER UNIT CHARGE SC SCH (11:22)
[2024-11-25] MEDS: cefTRIAXone SODIUM 1,000 MG MINI-B 50ML IV ONE (11:39)
[2024-11-25] MEDS: INSULIN ASPART PER UNIT CHARGE SC SCH (11:53)
[2024-11-25 13:53] LABS: iSTAT Arterial Blood Gas HCO3 30 meg/L (19-24); iSTAT Arterial Blood Gas pCO2 62 mmHg (35-46); iSTAT Arterial Blood Gas pH 7.28 (7.35-7.45); iSTAT Arterial Blood Gas pO2 73 mmHg (80-95); iSTAT Carbon Dioxide 31 mmol/L (24-31); iSTAT Hematocrit 26 % (37-47); iSTAT Hemoglobin 8.8 g/dl (12.0-16.0); iSTAT Potassium 4.6 mmol/L (3.3-5.0); iSTAT Sodium 140 mmol/L (135-144)
--- NOTE | 2024-11-25 14:08 | Electrocardiogram Report ---
Test Reason : Blood Pressure : */* mmHG Vent. Rate : 123 BPM Atrial Rate : 123 BPM P-R Int : 136 ms QRS Dur : 78 ms QT Int : 328 ms P-R-T Axes : 64 6 77 degrees QTcB Int : 469 ms Sinus tachycardia with Premature atrial complexes Inferior infarct , age undetermined Abnormal ECG When compared with ECG of 23-May-2024 17:08, Inferior infarct is now Present T wave amplitude has increased in Anterior leads Confirmed by David Shaikh ([id number]) on 11/25/2024 2:08:20 PM Referred By: Confirmed By: David Shaikh
--- NOTE | 2024-11-25 14:12 | Electrocardiogram Report ---
Test Reason : Blood Pressure : */* mmHG Vent. Rate : 120 BPM Atrial Rate : 120 BPM P-R Int : 134 ms QRS Dur : 76 ms QT Int : 334 ms P-R-T Axes : 71 7 74 degrees QTcB Int : 472 ms Sinus tachycardia with Premature atrial complexes Possible Inferior infarct (cited on or before 27-Sep-2015) Abnormal ECG When compared with ECG of 25-Nov-2024 05:45, (unconfirmed) No significant change was found Confirmed by David Shaikh ([id number]) on 11/25/2024 2:12:41 PM Referred By: REFERRED SELF Confirmed By: David Shaikh
[2024-11-25] MEDS ORDERED: STAT IV/IM STA (15:08)
[2024-11-25] MEDS: SODIUM BICARBONATE 8.4% 75 MEQ in SODIUM CHLORIDE 0.45 % 1,000 ML IV SCH (15:45)
[2024-11-25 16:11] LABS: BUN Creatinine Ratio 24.5 (10-20); Calcium 8.1 mg/dl (8.6-10.3); Creatinine Clr Calc Pharmacy 21.3 ml/min; Potassium 4.4 mmol/L (3.5-5.1)
--- NOTE | 2024-11-25 16:28 | Pulmonary Consultation ---
Date of Consultation November 25, 2024 Assessment & Plan (1) Acute on chronic respiratory failure with hypoxia and hypercapnia: (2) Current smoker: (3) COPD, very severe: (4) COVID: (5) Sepsis: (6) Hypotension: Plan PFT 01/17/2020 personally reviewed: Severe obstructive lung dysfunction, significant bronchodilator response, increased lung volume with air trapping FVC 1.96 L 72%, FEV1 0.94 L 48%, FEV1/FVC 47%, TLC 169%, RV/DLCO 188% Chest x-ray 11/25/2024 personally reviewed: Portable film, good inspiratory effort, flattened diaphragm, bilateral costophrenic and cardiophrenic angles are clean 2D echo 11/23/2023: EF 65 to 70%, RVSP 40-50 mmHg ABG 11/25/2024: 7.19/90/155 --Acute on chronic hypercapnic hypoxic respiratory failure Likely secondary to exacerbation of severe COPD with emphysema Gold E Hypercapnia is likely secondary to underlying COPD and noncompliance with trilogy AVAPS On high-dose Symbicort and spiriva at home QTc 485, not a good candidate for azithromycin Nasal MRSA negative Respiratory bio fire negative for everything except for COVID on 12/17/2023 Procalcitonin 2.5 -- COVID-19 positive Chest x-ray does not show any significant change compared to before I am not sure if patient's current pulmonary symptoms are coming from COVID I think it is reasonable to give the patient dexamethasone especially she is spiking fever --Chronic hypoxic respiratory failure On 4 L oxygen at home --A-fib On apixaban --DNR/DNI Okay for CPR and vasopressors if need be as per Plan: Nebulized medication for COPD while hospitalized Continue with BiPAP with goal tidal volume of around 400-4 20 mL, backup rate of 16 Given that the patient is spiking fever and acute on chronic hypoxia I think it is reasonable to give dexamethasone also I am not sure if the patient has pulmonary infiltrates because of COVID 19 DC bicarb drip Patient's urine is dirty, history of pansensitive E. coli. Rocephin should cover for pulmonary as well as UTI. Patient's blood pressure is on the softer side. Her EF back in October 2023 was 65-70%, she does have pulmonary hypertension-that is the reason for her lower extremity edema Recommend giving the patient 1 L of IV fluids. If the patient blood pressure still does not improve then okay to send the patient to the ICU Patient already got steroids, I do not think random cortisol level will make any difference in decision making. The patient still has persistent low blood pressure even after giving bolus then vasopressor support along with hydrocortisone will be considered Case was discussed with primary team I have personally spent 42 minutes of critical care time in the direct management of this patient. This is a life/limb threatening event. This includes time spent evaluating patient, direct bedside care, chart review, placing orders, interpretation of diagnostic studies, discussion with consultants, patient, and family members, as well as other required patient management activities. This time is exclusive of all separately billable procedures, and teaching time and separate from and in addition to any other critical care service time. Please note the above document was generated using voice recognition software. It may contain grammatical, syntax or spelling errors. History of Present Illness Attending Physician: Marcelo Witt MD History of Present Illness 74-year-old female presented to the hospital with complaints of shortness of breath Past medical history: COPD, hypertension, dyslipidemia, chronic hypoxic respiratory failure on 3 L oxygen at home, chronic low back pain, diabetes Pulmonary consulted for hypercapnia and hypoxia Patient has been hospitalized multiple times in the recent past Patient is supposed to be on trilogy AVAPS machine at home At the time of examination patient was on BiPAP 20/5, tidal volume at 520-530, saturating 94-95% on 50% FiO2, I went down to 40% FiO2 I changed the BiPAP settings to 20/6, she was still getting tidal volumes 500. She was still very somnolent. Awakening only to sternal rub. Did not seem to be any respiratory distress Her blood pressure was on the softer side, systolic was in the high 90s, MAP was 63. Did spike fever Tmax 37.8 Patient was not able to give too much history, it was obtained from previous chart as well as talking with the primary team Social history:> [id number] smoking history, currently smoking a pack a day Has cats and dogs at home Strong family history of lung cancer in father, mother as well as brother who are all smokers at the time of examination patient was saturating Allergies Allergy/AdvReac Type Severity Reaction Status Date / Time diflunisal AdvReac Intermediate HEART RACES Verified 05/23/24 19:23 Home Medications Medication Instructions Recorded Confirmed Type albuterol sulfate 90 mcg/actuation 2 puff inhalation Q6 PRN Shortness 08/28/20 11/25/24 History aerosol inhaler (Ventolin HFA) Of Breath Or Wheezing aspirin 81 mg tablet,delayed 81 mg PO QAM 08/28/20 11/25/24 History release (Uri Low Dose Aspirin) metformin 1,000 mg tablet 1,000 mg PO BID 08/28/20 11/25/24 History blood sugar diagnostic (OneTouch #50 ea 06/02/21 11/25/24 Rx Verio test strips) folic acid 1 mg tablet 1 mg PO QAM 03/24/22 11/25/24 History losartan 50 mg tablet 50 mg PO QAM 03/24/22 11/25/24 History ipratropium 0.5 mg-albuterol 3 mg 3 ml inhalation Q4H PRN shortness 12/13/22 11/25/24 Rx (2.5 mg base)/3 mL nebulization of breath #90 mL soln rosuvastatin 20 mg tablet 20 mg PO QAM 08/23/23 11/25/24 History diltiazem HCl 180 mg 180 mg PO QAM #30 caps 09/10/23 11/25/24 Rx capsule,extended release 24 hr budesonide-formoterol HFA 160 2 puff inhalation BID 09/21/23 11/25/24 History mcg-4.5 mcg/actuation aerosol inhaler pantoprazole 40 mg tablet,delayed 40 mg PO BID #60 tabs 11/24/23 11/25/24 Rx release guaifenesin 600 mg tablet, 1,200 mg PO Q12 PRN Congestion 02/10/24 11/25/24 History extended release 12 hr (Mucinex) cyanocobalamin (vitamin B-12) 500 1,000 mcg (2 x 500 mcg) PO QAM #30 02/13/24 11/25/24 Rx mcg tablet tabs formoterol fumarate 20 mcg/2 mL 20 mcg (2 mL) NEB BIDR #60 mL 02/13/24 11/25/24 Rx solution for nebulization (Perforomist) apixaban 5 mg tablet (Eliquis) 5 mg PO BID 04/30/24 11/25/24 History ferrous sulfate 325 mg (65 mg 325 mg PO BID 04/30/24 11/25/24 History iron) tablet fluticasone furoate 100 1 inh inhalation DAILY 04/30/24 11/25/24 History mcg-vilanterol 25 mcg/dose inhalation powder (Breo Ellipta) furosemide 20 mg tablet 20 mg PO DAILY PRN Edema 04/30/24 11/25/24 History insulin glargine 100 unit/mL (3 20 unit subcut BID 04/30/24 11/25/24 History mL) subcutaneous pen (Lantus Solostar U-100 Insulin) insulin lispro 100 unit/mL 8 unit subcut TID 04/30/24 11/25/24 History subcutaneous pen (Humalog KwikPen (U-100) Insulin) metoprolol succinate 50 mg 50 mg PO BID 04/30/24 11/25/24 History tablet,extended release 24 hr sodium chloride 7 % for 1 inh inhalation BID PRN 04/30/24 11/25/24 History nebulization SOB/WHEEZING oxycodone 5 mg tablet 10 mg (2 x 5 mg) PO TID PRN Pain 05/02/24 11/25/24 Rx #10 tabs budesonide 160 mcg-glycopyr 9 2 inh inhalation BID 05/23/24 11/25/24 History mcg-formot 4.8 mcg/actuation HFA inhaler (Breztri Aerosphere) umeclidinium 62.5 mcg/actuation 1 inh inhalation DAILY 05/23/24 11/25/24 History blister powder for inhalation (Incruse Ellipta) Patient History Medical History (Updated 11/25/24 @ 17:16 by Edilson Durand MD, [facility]) Anemia Sepsis Acute confusion Severe muscle deconditioning COPD exacerbation Respiratory failure Hyperkalemia Acute hypercapnic respiratory failure TATY (acute kidney injury) AMS (altered mental status) Syncope Acute UTI Acute hypotension Chronic kidney disease, stage 3a Acute kidney injury Acute exacerbation of chronic low back pain Candidiasis of mouth and esophagus DVT prophylaxis Diabetes mellitus COPD (chronic obstructive pulmonary disease) Hypertension Hyperlipidemia Acute on chronic respiratory failure with hypoxia and hypercapnia Family History Other Family history non-contributory Social History Smoking Status: Current every day smoker Tobacco Type: Cigarettes Age Started Using Tobacco: 32; Cigarettes Per Day: 1/2 pack a day; Second Hand Exposure: No; Do You Dip or Chew Tobacco: No; Hx Alcohol Use: No Hx Substance Use: No Preferred Language: Emir[place] Communication Ability: Effective Painter Touch Up Required: No Beliefs That Will Affect Care: None marital status: Current Living Situation: Spouse Current Living Situation Comment: Lives at home with How many Children do You have: 3 Feels Safe at Home: Yes Assistive Devices: Cane, Oxygen - Continuous, Walker and Wheelchair Review of Systems 2 Review of Systems: All systems reviewed & are unremarkable except as noted in HPI & below Physical Exam 2 Physical Exam: Constitutional: No acute distress HEENT: PERRLA Respiratory system: Decreased air entry bilaterally, minimal expiratory wheeze, no rhonchi, positive crackles bilateral lower lobes CVS: S1-S2 positive, no murmurs or gallops Abdomen: Soft, nontender, nondistended, positive bowel sounds x4, obese Extremities: +2 pulses bilaterally radialis/ dorsalis pedis, no cyanosis, +1 pitting edema bilateral lower extremity Neuro: Somnolent, breathing on her own with the help of BiPAP Psych: Unable to assess G/U: Positive Gutierrez Skin: no rashes, warm and dry Lymphatic: no cervical or axillary lymphadenopathy Results & Data Results & Data Vital Signs (Past 12 Hours) Vital Signs Temp Pulse Pulse Resp BP BP Pulse Ox 11/25/24 15:29 88 99/51 L 11/25/24 15:20 90 20 103/50 L 11/25/24 15:10 84 20 83/46 L 11/25/24 15:07 84 20 94 11/25/24 15:07 80 20 93 11/25/24 15:05 100 H 83/44 L 11/25/24 15:02 81/45 L 11/25/24 15:00 90 24 77/37 L 11/25/24 14:49 85 20 105/50 L 11/25/24 14:45 105/50 L 11/25/24 14:30 84 20 105/50 L 94 11/25/24 13:00 90 20 97/54 L 93 11/25/24 12:30 89 20 98/53 L 94 11/25/24 12:00 88 20 105/55 L 94 11/25/24 12:00 88 12 105/55 L 98 11/25/24 11:57 87 20 127/59 L 94 11/25/24 11:37 88 127/59 L 11/25/24 11:33 83 20 93 11/25/24 11:33 85 20 50 L 11/25/24 11:30 102 H 26 H 127/59 L 96 11/25/24 11:22 117 H 111/56 L 11/25/24 11:00 107 H 23 111/56 L 95 11/25/24 10:00 112 H 27 H 104/63 94 11/25/24 10:00 123 H 18 104/63 93 11/25/24 09:25 116 H 11/25/24 09:00 118 H 38 H 127/63 94 11/25/24 08:30 119 H 37 H 134/62 91 11/25/24 08:08 118 H 43 H 92 11/25/24 08:00 117 H 37 H 150/72 H 93 11/25/24 07:53 120 H 30 H 92 11/25/24 07:00 119 H 38 H 144/60 H 91 11/25/24 06:45 37.8 C H 119 H 40 H 141/60 H 94 11/25/24 06:30 37.8 C H 120 H 38 H 144/59 H 96 11/25/24 06:15 121 H 41 H 149/65 H 99 11/25/24 06:12 100 11/25/24 06:07 124 H 48 H 99 11/25/24 06:00 122 H 40 H 121/40 L 100 11/25/24 05:44 124 H 11/25/24 05:21 37.3 C 122 H 44 H 149/71 H 100 11/25/24 05:21 O2 Del Method O2 Flow Rate FiO2 11/25/24 15:29 11/25/24 15:20 11/25/24 15:10 11/25/24 15:07 50 11/25/24 15:07 BiPAP 50 11/25/24 15:05 11/25/24 15:02 11/25/24 15:00 11/25/24 14:49 11/25/24 14:45 11/25/24 14:30 11/25/24 13:00 11/25/24 12:30 11/25/24 12:00 11/25/24 12:00 BiPAP 11/25/24 11:57 BiPAP 11/25/24 11:37 11/25/24 11:33 50 11/25/24 11:33 BiPAP 11/25/24 11:30 11/25/24 11:22 11/25/24 11:00 11/25/24 10:00 11/25/24 10:00 11/25/24 09:25 11/25/24 09:00 BiPAP 50 11/25/24 08:30 BiPAP 50 11/25/24 08:08 BiPAP 50 11/25/24 08:00 BiPAP 50 11/25/24 07:53 50 11/25/24 07:00 Oxymask 6 11/25/24 06:45 Oxymask 6 11/25/24 06:30 Oxymask 8 11/25/24 06:15 Oxymask 10 11/25/24 06:12 Nebulizer 10 11/25/24 06:07 Nasal Cannula, Non-rebreather 10 11/25/24 06:00 Nebulizer 10 11/25/24 05:44 11/25/24 05:21 Nasal Cannula, Nebulizer 20 11/25/24 05:21 Nasal Cannula, Nebulizer 20 Laboratory Results 11/25/24 05:50 11/25/24 15:41 PG Care Time/CCT Total # of Minutes Spent Total Time Spent with Patient: Total time spent is greater than 50% in coordination of care (as documented) at patient's floor/unit and/or counseling patient: Coding Level of Care Code 81190 CRITICAL CARE 1ST 30-74M Diagnoses Acute on chronic respiratory failure with hypoxia and hypercapnia J96.21; J96.22 Current smoker F17.200 COPD, very severe J44.9 COVID U07.1 Sepsis A41.9 Hypotension I95.9
[2024-11-25] MEDS: SODIUM CHLORIDE 0.9% 1,000 ML IV ONE (17:08)
[2024-11-25 17:46] LABS: iSTAT Arterial Blood Gas HCO3 29 meg/L (19-24); iSTAT Arterial Blood Gas pCO2 62 mmHg (35-46); iSTAT Arterial Blood Gas pH 7.28 (7.35-7.45); iSTAT Arterial Blood Gas pO2 60 mmHg (80-95); iSTAT Carbon Dioxide 31 mmol/L (24-31); iSTAT Hematocrit 27 % (37-47); iSTAT Hemoglobin 9.2 g/dl (12.0-16.0); iSTAT Potassium 3.8 mmol/L (3.3-5.0); iSTAT Sodium 144 mmol/L (135-144)
[2024-11-25] MEDS: FORMOTEROL 20 MCG/2 ML VIAL INH SCH (19:03)
[2024-11-25] MEDS: BUDESONIDE 0.5 MG/2 ML VIAL (PULMICORT) NEB SCH (19:03)
[2024-11-25] MEDS ORDERED: INFLUENZA VACC TS2024-25(65y+)/PF (IIV3) 0.5mL Syr IM ONE (23:23)
[2024-11-26 07:03] LABS: Hematocrit (blood only) 24.1 % (37.0-47.0); Hemoglobin 7.2 g/dl (12.0-16.0); Mean Corpuscular Hemoglobin 26.5 pg (25.0-34.0); Mean Corpuscular Hgb Conc 29.9 g/dL (32.0-36.0); Mean Corpuscular Volume 88.6 fL (80.0-100.0); Mean Platelet Volume 10.2 fL (9.4-12.4); Nucleated RBC # (auto) 0.02 K/uL (0.00-0.12); Nucleated RBC % (auto) 0.2 %; Platelet Count 342 K/uL (130-400); RDW Standard Deviation 61.4 fL (36.4-46.3); Red Blood Count 2.72 M/uL (4.20-5.40); White Blood Count 11.25 K/ul (4.8-10.8)
[2024-11-26 07:15] LABS: Estimated Average Glucose 169 mg/dl; Hemoglobin A1C 7.5 % (4.5-5.6)
[2024-11-26 07:32] LABS: BUN Creatinine Ratio 30.8 (10-20); Calcium 8.2 mg/dl (8.6-10.3); Creatinine Clr Calc Pharmacy 30.2 ml/min; Potassium 4.3 mmol/L (3.5-5.1)
--- NOTE | 2024-11-26 09:30 | Pulmonology Progress Note ---
Date of Service November 26, 2024 Assessment & Plan (1) Acute on chronic respiratory failure with hypoxia and hypercapnia: (2) Current smoker: (3) COPD, very severe: (4) COVID: (5) Sepsis: (6) Hypotension: Plan PFT 01/17/2020 personally reviewed: Severe obstructive lung dysfunction, significant bronchodilator response, increased lung volume with air trapping FVC 1.96 L 72%, FEV1 0.94 L 48%, FEV1/FVC 47%, TLC 169%, RV/DLCO 188% Chest x-ray 11/25/2024 personally reviewed: Portable film, good inspiratory effort, flattened diaphragm, bilateral costophrenic and cardiophrenic angles are clean 2D echo 11/23/2023: EF 65 to 70%, RVSP 40-50 mmHg ABG 11/25/2024: 7.19/90/155 --> 7.36/53/71 on 5 L --Acute on chronic hypercapnic hypoxic respiratory failure Likely secondary to exacerbation of severe COPD with emphysema Gold E Hypercapnia is likely secondary to underlying COPD and noncompliance with trilogy AVAPS On high-dose Symbicort and spiriva at home QTc 485, not a good candidate for azithromycin Nasal MRSA negative Respiratory bio fire negative for everything except for COVID on 12/17/2023 Procalcitonin 2.5 -- COVID-19 positive Chest x-ray does not show any significant change compared to before I am not sure if patient's current pulmonary symptoms are coming from COVID I think it is reasonable to give the patient dexamethasone especially she is spiking fever --Chronic hypoxic respiratory failure On 4 L oxygen at home --A-fib On apixaban --DNR/DNI Okay for CPR and vasopressors if need be as per Plan: For the rhonchi which the patient has I will add hypertonic saline nebulized to her regimen along with Mucinex and flutter valve Continue with nebulized medication for COPD while hospitalized Continue with BiPAP with goal tidal volume of around 400-420 mL, backup rate of 16 Given that the patient is spiking fever and acute on chronic hypoxia I think it is reasonable to give dexamethasone also I am not sure if the patient has pulmonary infiltrates because of COVID 19 Case was discussed with primary team as well as RN at bedside No further recommendation from pulmonary perspective, will sign off Please call directly with any questions Please note the above document was generated using voice recognition software. It may contain grammatical, syntax or spelling errors.Any formal questions or concerns about the content, text or information contained within the body of this dictation should be directly addressed to the provider for clarification. Admission and Anticipated Discharge Date Admission Date: November 25, 2024 Subjective Patient seen and examined at bedside. No acute distress, notable symptoms overnight She was about to have her lunch when I entered the room She was saturating 95% on 2 L nasal cannula, I went down to 1 L She started coughing when she was drinking her soda. I advised her to take her time when she eats or drinks Shortness of breath is improved Coughing up bringing up clear phlegm Denies any nausea vomiting Review of Systems 2 Review of Systems: All systems reviewed & are unremarkable except as noted in Subjective Physical Exam 2 Physical Exam: Constitutional: No acute distress HEENT: PERRLA Respiratory system: Decreased air entry bilaterally, minimal expiratory wheeze, positive rhonchi bilaterally, positive crackles bilateral lower lobes CVS: S1-S2 positive, no murmurs or gallops Abdomen: Soft, nontender, nondistended, positive bowel sounds x4, obese Extremities: +2 pulses bilaterally radialis/ dorsalis pedis, no cyanosis, +1 pitting edema bilateral lower extremity Neuro: Awake alert oriented to self place and time Psych normal mood and affect G/U: Positive Gutierrez Skin: no rashes, warm and dry Lymphatic: no cervical or axillary lymphadenopathy Results & Data Results & Data Vital Signs (Past 12 Hours) Vital Signs Temp Pulse Pulse Resp BP Pulse Ox O2 Del Method 11/26/24 07:48 36.7 C 92 H 25 H 174/78 H 96 BiPAP 11/26/24 06:04 80 20 94 BiPAP 11/26/24 03:24 71 20 97 11/26/24 03:24 71 20 97 BiPAP 11/26/24 03:14 36.4 C L 80 16 127/68 97 BiPAP 11/25/24 23:35 78 22 147/76 H 96 BiPAP 11/25/24 23:33 78 20 96 11/25/24 23:33 78 20 96 BiPAP 11/25/24 22:20 BiPAP 11/25/24 22:20 36.6 C 102 H 20 162/83 H 100 BiPAP 11/25/24 21:45 108 H FiO2 11/26/24 07:48 11/26/24 06:04 40 11/26/24 03:24 45 11/26/24 03:24 45 11/26/24 03:14 11/25/24 23:35 50 11/25/24 23:33 50 11/25/24 23:33 50 11/25/24 22:20 11/25/24 22:20 50 11/25/24 21:45 Laboratory Results 11/26/24 06:34 11/26/24 06:34 PG Care Time/CCT Total # of Minutes Spent Total Time Spent with Patient: Total time spent is greater than 50% in coordination of care (as documented) at patient's floor/unit and/or counseling patient: Coding Level of Care Code 99121 SUB INP/OBS CARE 3/50MIN Diagnoses Acute on chronic respiratory failure with hypoxia and hypercapnia J96.21; J96.22 Current smoker F17.200 COPD, very severe J44.9 COVID U07.1 Sepsis A41.9 Hypotension I95.9
--- NOTE | 2024-11-26 09:59 | CT Scan Report ---
CT OF THE HEAD WITHOUT CONTRAST CLINICAL HISTORY: eval for stroke COMPARISON STUDY: Head CTs September 08, 2023 and November 21, 2023. CT DOSE: 625.8 mGy.cm TECHNIQUE: Helical axial images of the head were obtained without IV contrast. Automated exposure con trol was utilized for the study. A dose lowering technique was utilized adhering to the principles o f ALARA. FINDINGS: No acute intracranial hemorrhage, midline shift or mass effect is present. The ventricular system is unremarkable. The basal cisterns are patent. No extra-axial collections are present. There are no findings to suggest acute dural sinus thrombosis or acute territorial infarct. White matter hy podensities are similar to prior exam and favor small vessel disease. Bilateral basal ganglia calcifi cation is unchanged. IMPRESSION: No acute intracranial findings. ACT 112: Negative or not required by law. Electronically signed by: Cheng Arevalo M.D. 11/26/2024 9:56 AM
[2024-11-26] MEDS: ACETAMINOPHEN 1,000 MG/100 ML VIAL IV PRN (10:07)
[2024-11-26 11:00] LABS: Allen Test Pos (Pos); Base Excess ABG 3.9 mEq/L (-9-1.8); HCO3 ABG 30 mmol/L (19-24); Oxygen Saturation ABG 95.5 % (90-95); PCO2 ABG 53 mmHg (35-46); PO2 ABG 71 mmHg (80-95); pH ABG 7.36 (7.35-7.45)
[2024-11-26] MEDS: dexAMETHasone 6 MG in SYRINGE 0 ML IV SCH (11:07)
[2024-11-26] MEDS: PANTOprazole 40 MG/10 ML SYR IV SCH ×2 (11:07→20:23)
[2024-11-26] MEDS: cefTRIAXone SODIUM 2,000 MG/50 ML BAG IV SCH (11:08)
[2024-11-26] MEDS: MoRPHine SULFATE 2 MG/ML CARP IV PRN (11:36)
[2024-11-26] MEDS: INSULIN ASPART PER UNIT CHARGE SC SCH (12:26)
[2024-11-26] MEDS: traMADol HCL 50 MG TABLET PO PRN (12:43)
--- NOTE | 2024-11-26 15:09 | Electrocardiogram Report ---
Test Reason : Blood Pressure : */* mmHG Vent. Rate : 105 BPM Atrial Rate : 105 BPM P-R Int : 124 ms QRS Dur : 86 ms QT Int : 346 ms P-R-T Axes : 26 30 70 degrees QTcB Int : 457 ms Sinus tachycardia Otherwise normal ECG When compared with ECG of 25-Nov-2024 08:00, Premature atrial complexes are no longer Present Confirmed by David Shaikh ([id number]) on 11/26/2024 3:09:35 PM Referred By: REFERRED SELF Confirmed By: David Shaihk
--- NOTE | 2024-11-26 16:16 | Hospitalist Progress Note ---
Date of Service November 26, 2024 Assessment & Plan (1) Acute hypercapnic respiratory failure: (2) CHF (congestive heart failure): (3) Afib: (4) Diabetes type 2, uncontrolled: Plan 74-year-old female who presents with obtundation due to hypercarbia from acute on chronic respiratory failure with hypercarbia. Patient continues to be a current smoker. Patient also tested positive for COVID Acute on chronic respiratory failure hypercarbia. Off bipap on oxymask. . Patient is on dexamethasone to reduce inflammation. With concern for infiltrate on chest x-ray patient continues on ceftriaxone( also covers abnormal urine Regarding her positive COVID status patient is on dexamethasone at this time Patient has a history of atrial fibrillation chronically on Eliquis therapy. She is in sinus tachycardia on the EKG on presentation will restart metoprolol in tartrate form and also use metoprolol backup for tachycardia. Pt has a history of HFpEF with last Echo 11/15, chronic hypertension restart losartan anemia, not with clear melena, portion of it likely dilutional holding aspirin and eliquis at this time Regarding her diabetes. Her Lantus dose reduced by 50% she will be given a sliding scale Goals of care discussion with her by both myself and Dr. Mathis reveals her to be a conditional code. She does not wish to have any type of respiratory support past BiPAP therapy however she does want cardiac resuscitation if her heart were to stop. Overall patient outlook is guarded at this time Admission and Anticipated Discharge Date Admission Date: November 25, 2024 Subjective pt is awake and asking to eat, still some shortness of breath asks to go home very weak and tired, on significant supplemental oxygen Physical Exam Physical Exam: Patient is responsive She is tachycardic without murmurs heard Abdomen soft Extremities are without edema Results & Data Results & Data Vital Signs (Past 12 Hours) Vital Signs Temp Pulse Pulse Resp BP Pulse Ox O2 Del Method 11/26/24 15:01 107 H 11/26/24 15:00 94 H 11/26/24 12:32 98.4 F 101 H 26 H 144/69 H 90 Oxymask 11/26/24 10:39 107 H 18 92 Oxymask 11/26/24 08:00 Oxymask 11/26/24 07:48 98.1 F 92 H 25 H 174/78 H 96 BiPAP 11/26/24 06:04 80 20 94 BiPAP O2 Flow Rate FiO2 11/26/24 15:01 11/26/24 15:00 11/26/24 12:32 11/26/24 10:39 2 11/26/24 08:00 4 11/26/24 07:48 11/26/24 06:04 40 PG Care Time/CCT Total # of Minutes Spent Total Time Spent with Patient: Total time spent is greater than 50% in coordination of care (as documented) at patient's floor/unit and/or counseling patient: Coding Level of Care Code 76619 SUB INP/OBS CARE 350MIN Diagnoses Acute hypercapnic respiratory failure J96.02 CHF (congestive heart failure) I50.9 Afib I48.91 Diabetes type 2, uncontrolled E11.65 Glycemic state: with hyperglycemia (4) Diabetes type 2, uncontrolled Glycemic state: with hyperglycemia Qualified Code(s): E11.65 - Type 2 diabetes mellitus with hyperglycemia
[2024-11-26] MEDS: METOPROLOL TARTRATE 25 MG TAB PO ONE (17:31)
[2024-11-26] MEDS: guaiFENesin 600 MG TABCR PO SCH (20:20)
[2024-11-26] MEDS: METOPROLOL TARTRATE 25 MG TAB PO SCH (20:20)
[2024-11-26] MEDS: SODIUM CHLOR 7% 4 ML NEB NEB SCH (20:31)
[2024-11-27 08:23] LABS: Hematocrit (blood only) 27.4 % (37.0-47.0); Hemoglobin 8.1 g/dl (12.0-16.0); Mean Corpuscular Hemoglobin 26.1 pg (25.0-34.0); Mean Corpuscular Hgb Conc 29.6 g/dL (32.0-36.0); Mean Corpuscular Volume 88.4 fL (80.0-100.0); Nucleated RBC # (auto) 0.04 K/uL (0.00-0.12); Nucleated RBC % (auto) 0.5 %; Platelet Count 344 K/uL (130-400); RDW Coefficient of Variation 18.9 % (11.5-14.5); RDW Standard Deviation 61.3 fL (36.4-46.3); White Blood Count 7.47 K/ul (4.8-10.8)
[2024-11-27 08:37] LABS: BUN Creatinine Ratio 31.5 (10-20); Calcium 8.6 mg/dl (8.6-10.3); Creatinine Clr Calc Pharmacy 37.2 ml/min; Potassium 4.9 mmol/L (3.5-5.1)
[2024-11-27] MEDS: LOSARTAN POTASSIUM 50 MG TAB PO SCH (09:21)
[2024-11-27] MEDS: ROSUVASTATIN CALCIUM 20 MG TAB PO SCH (09:22)
--- NOTE | 2024-11-27 15:52 | Hospitalist Progress Note ---
Date of Service November 27, 2024 Assessment & Plan (1) Acute hypercapnic respiratory failure: (2) CHF (congestive heart failure): (3) Afib: (4) Diabetes type 2, uncontrolled: Plan 74-year-old female who presents with obtundation due to hypercarbia from acute on chronic respiratory failure with hypercarbia. Patient continues to be a current smoker. Patient also tested positive for COVID Acute on chronic respiratory failure hypercarbia. now on nc and oxymask. Patient is on dexamethasone to reduce inflammation. With concern for infiltrate on chest x-ray patient continues on ceftriaxone( also covers abnormal urine) avoiding azithromycin due to prolongued Qtc Regarding her positive COVID status patient is on dexamethasone at this time Patient has a history of atrial fibrillation chronically on Eliquis therapy. She is in sinus tachycardia on the EKG on presentation will restart metoprolol in tartrate form and also use metoprolol backup for tachycardia. Pt has a history of HFpEF with last Echo 11/15, chronic hypertension restart losartan anemia, not with clear melena, portion of it likely dilutional holding aspirin and eliquis at this time, if stable will restart Regarding her diabetes. Her Lantus dose reduced by 50% she will be given a sliding scale Goals of care discussion with her by both myself and Dr. Pollock reveals her to be a conditional code. She does not wish to have any type of respiratory support past BiPAP therapy however she does want cardiac resuscitation if her heart were to stop. Overall patient outlook is guarded at this time Admission and Anticipated Discharge Date Admission Date: November 25, 2024 Subjective pt is awake and still some shortness of breath requiring 4 L one day prior had some swallowing issues, today she says they are all gone asks to go home very weak and tired, on significant supplemental oxygen pending PT/OT Physical Exam Physical Exam: Patient is responsive She is tachycardic without murmurs heard Abdomen soft Extremities are without edema Results & Data Results & Data Vital Signs (Past 12 Hours) Vital Signs Temp Pulse Pulse Pulse Resp BP Pulse Ox 11/27/24 14:39 97.7 F 67 18 168/67 H 94 11/27/24 14:38 71 11/27/24 14:21 72 26 H 92 11/27/24 14:21 75 24 92 11/27/24 14:12 18 93 11/27/24 11:18 71 16 96 11/27/24 11:10 97.7 F 72 16 170/72 H 97 11/27/24 08:00 67 11/27/24 07:30 85 11/27/24 07:25 73 18 92 11/27/24 07:00 97.7 F 81 18 172/90 H 94 O2 Del Method O2 Flow Rate FiO2 11/27/24 14:39 High Flow Nasal Cannula 6 11/27/24 14:38 11/27/24 14:21 40 11/27/24 14:21 BiPAP 40 11/27/24 14:12 Oxymask 4.5 11/27/24 11:18 Oxymask 4 11/27/24 11:10 Oxymask 11/27/24 08:00 11/27/24 07:30 11/27/24 07:25 Oxymask 4 11/27/24 07:00 Oxymask Laboratory Results review cbc review chemistry PG Care Time/CCT Total # of Minutes Spent Total Time Spent with Patient: Total time spent is greater than 50% in coordination of care (as documented) at patient's floor/unit and/or counseling patient: Coding Level of Care Code 36109 SUB INP/OBS CARE 3/50MIN Diagnoses Acute hypercapnic respiratory failure J96.02 CHF (congestive heart failure) I50.9 Afib I48.91 Diabetes type 2, uncontrolled E11.65 Glycemic state: with hyperglycemia (4) Diabetes type 2, uncontrolled Glycemic state: with hyperglycemia Qualified Code(s): E11.65 - Type 2 diabetes mellitus with hyperglycemia
[2024-11-27] MEDS: POLYETHYLENE (MIRALAX) 17 GM PACK PO ONE (16:38)
[2024-11-28] MEDS: hydrALAZINE HCL 20 MG/ML VIAL IV PRN (03:00)
[2024-11-28] MEDS: POLYETHYLENE (MIRALAX) 17 GM PACK PO PRN (07:42)
--- NOTE | 2024-11-28 07:47 | XRay Report ---
EXAM: XR chest 1V portable CLINICAL HISTORY: Narcotic overdose, abnormal hemoglobin, patient is very uncooperative. TECHNIQUE: An X-ray image of the chest was obtained in AP projection. COMPARISON: No prior studies are available for comparison. FINDINGS: Pulmonary Parenchyma: Bilateral prominent bronchovascular markings, could be due to inflammatory process or lung congestion. Tiny nodular density noted at right lower lung zones measures 4 mm, further CT chest is advised. Blunting of the left costophrenic angle could indicate a small effusion. Faint paracardiac opacity noted in the left lower lung zone could indicate mild lung infiltrates. No evidence of right pleural effusion or pleural thickening. Heart and Mediastinum: Heart size and shape are normal. No mediastinal widening or masses. Prominent nodular right hilar shadow which is likely due to vascular congestion, however the possibility of an underlying lesion like hilar lymph node cannot be excluded further CT chest is recommended. Bony Thorax: Osteopenia with right seventh rib irregularity with possible underlying fracture, clinical correlation is advised. Soft Tissues: Soft tissues overlying the chest wall are unremarkable. IMPRESSION: 1. Bilateral prominent bronchovascular markings, could be due to inflammatory process or lung congestion. 2. Tiny nodular density noted at right lower lung zones measures 4 mm, further CT chest is advised. 3. Blunting of the left costophrenic angle could indicate a small effusion. 4. Prominent nodular right hilar shadow which is likely due to vascular congestion, however the possibility of an underlying lesion like hilar lymph node cannot be excluded further CT chest is recommended. 5. Faint paracardiac opacity noted in the left lower lung zone could indicate mild lung infiltrates. 6. Osteopenia with right seventh rib irregularity with possible underlying fracture, clinical correlation is advised. Electronically signed by Bipin Vigil 11-28-2024 07:47 AM
[2024-11-28 07:57] LABS: Hematocrit (blood only) 29.7 % (37.0-47.0); Hemoglobin 8.9 g/dl (12.0-16.0); Mean Corpuscular Hemoglobin 25.8 pg (25.0-34.0); Mean Corpuscular Volume 86.1 fL (80.0-100.0); Mean Platelet Volume 10.6 fL (9.4-12.4); Nucleated RBC # (auto) 0.04 K/uL (0.00-0.12); Nucleated RBC % (auto) 0.7 %; Platelet Count 337 K/uL (130-400); RDW Coefficient of Variation 18.9 % (11.5-14.5); RDW Standard Deviation 59.6 fL (36.4-46.3); Red Blood Count 3.45 M/uL (4.20-5.40); White Blood Count 5.88 K/ul (4.8-10.8)
[2024-11-28 08:05] LABS: BUN Creatinine Ratio 31.9 (10-20); Calcium 8.7 mg/dl (8.6-10.3); Creatinine Clr Calc Pharmacy 44.2 ml/min; Potassium 4.7 mmol/L (3.5-5.1)
[2024-11-28] MEDS: bisacodyL 10 MG SUPP PR STA (13:01)
[2024-11-28] MEDS: SUCRALFATE 1 GM TAB PO SCH (13:12)
[2024-11-28] MEDS: oxyCODONE HCL IR 5 MG TAB (IMMEDIATE RELEASE) PO PRN (14:26)
--- NOTE | 2024-11-28 15:18 | Hospitalist Progress Note ---
Date of Service November 28, 2024 Assessment & Plan (1) Acute hypercapnic respiratory failure: (2) CHF (congestive heart failure): (3) Afib: (4) Diabetes type 2, uncontrolled: Plan 74-year-old female who presents with obtundation due to hypercarbia from acute on chronic respiratory failure with hypercarbia. Patient continues to be a current smoker. Patient also tested positive for COVID Acute on chronic respiratory failure hypercarbia. Covid, Copd, now on nc and oxymask. Patient is on dexamethasone to reduce inflammation. With concern for infiltrate on chest x-ray patient continues on ceftriaxone( also covers abnormal urine) avoiding azithromycin due to prolongued Qtc Regarding her positive COVID status patient is on dexamethasone at this time Patient has a history of atrial fibrillation chronically on Eliquis therapy. She is in sinus tachycardia on the EKG on presentation will restart metoprolol in tartrate form and also use metoprolol backup for tachycardia. Pt has a history of HFpEF with last Echo 11/15, chronic hypertension restart losartan anemia, not with clear melena, stable will restart cautiously in face of epigastric pain, for epigastric pain ppi plus carafate Regarding her diabetes. Her Lantus & sliding scale Goals of care discussion with her by both myself and Dr. Pollock reveals her to be a conditional code. She does not wish to have any type of respiratory support past BiPAP therapy however she does want cardiac resuscitation if her heart were to stop. Overall patient outlook is guarded at this time Admission and Anticipated Discharge Date Admission Date: November 25, 2024 Subjective pt is awake and still some shortness of breath requiring 4 L pt persistently c/o epigastric distress, feels maybe similar to 'ulcer' she had in past very weak and tired, on significant supplemental oxygen pending PT/OT Physical Exam Physical Exam: Patient is alert and appropriate She is tachycardic without murmurs heard Abdomen soft, reproducible epigastric tenderness Extremities are without edema Results & Data Results & Data Vital Signs (Past 12 Hours) Vital Signs Temp Pulse Pulse Pulse Resp BP Pulse Ox 11/28/24 11:30 97.9 F 70 20 145/82 H 95 11/28/24 11:17 86 20 91 11/28/24 10:51 69 11/28/24 10:35 73 22 91 11/28/24 08:42 80 20 94 11/28/24 08:00 97.7 F 70 20 131/65 96 11/28/24 03:30 72 129/68 O2 Del Method O2 Flow Rate 11/28/24 11:30 High Flow Nasal Cannula 11/28/24 11:17 Oxymask 10 11/28/24 10:51 11/28/24 10:35 High Flow Nasal Cannula 11/28/24 08:42 Oxymask 12 11/28/24 08:00 Oxymask 11/28/24 03:30 Laboratory Results review cbc review chemistry PG Care Time/CCT Total # of Minutes Spent Total Time Spent with Patient: Total time spent is greater than 50% in coordination of care (as documented) at patient's floor/unit and/or counseling patient: Coding Level of Care Code 88887 SUB INP/OBS CARE 3/50MIN Diagnoses Acute hypercapnic respiratory failure J96.02 CHF (congestive heart failure) I50.9 Afib I48.91 Diabetes type 2, uncontrolled E11.65 Glycemic state: with hyperglycemia (4) Diabetes type 2, uncontrolled Glycemic state: with hyperglycemia Qualified Code(s): E11.65 - Type 2 diabetes mellitus with hyperglycemia
--- NOTE | 2024-11-28 16:58 | Hospitalist Progress Note ---
Date of Service November 28, 2024 Assessment & Plan (1) Acute hypercapnic respiratory failure: (2) CHF (congestive heart failure): (3) Afib: (4) Diabetes type 2, uncontrolled: Plan 74-year-old female who presents with obtundation due to hypercarbia from acute on chronic respiratory failure with hypercarbia. Patient continues to be a current smoker. Patient also tested positive for COVID Acute on chronic respiratory failure hypercarbia. Covid, Copd, now on nc and oxymask. Patient is on dexamethasone to reduce inflammation. With concern for infiltrate on chest x-ray patient continues on ceftriaxone( also covers abnormal urine) avoiding azithromycin due to prolongued Qtc Regarding her positive COVID status patient is on dexamethasone at this time Patient has a history of atrial fibrillation chronically on Eliquis therapy. She is in sinus tachycardia on the EKG on presentation will restart metoprolol in tartrate form and also use metoprolol backup for tachycardia. Pt has a history of HFpEF with last Echo 11/15, chronic hypertension restart losartan anemia, not with clear melena, stable will restart cautiously in face of epigastric pain, for epigastric pain ppi plus carafate Regarding her diabetes. Her Lantus & sliding scale Goals of care discussion with her by both myself and Dr. Pollock reveals her to be a conditional code. She does not wish to have any type of respiratory support past BiPAP therapy however she does want cardiac resuscitation if her heart were to stop. Sepsis POA due to COVID-19 pneumonia & +/-UTI Overall patient outlook is guarded at this time Admission and Anticipated Discharge Date Admission Date: November 25, 2024 Results & Data Results & Data Vital Signs (Past 12 Hours) Vital Signs Temp Pulse Pulse Pulse Resp BP Pulse Ox 11/28/24 15:27 76 18 94 11/28/24 15:00 97.9 F 74 18 142/75 H 96 11/28/24 11:30 97.9 F 70 20 145/82 H 95 11/28/24 11:17 86 20 91 11/28/24 10:51 69 11/28/24 10:35 73 22 91 11/28/24 08:42 80 20 94 11/28/24 08:00 97.7 F 70 20 131/65 96 O2 Del Method O2 Flow Rate 11/28/24 15:27 Oxymask 10 11/28/24 15:00 High Flow Nasal Cannula 12 11/28/24 11:30 High Flow Nasal Cannula 12 11/28/24 11:17 Oxymask 10 11/28/24 10:51 11/28/24 10:35 High Flow Nasal Cannula 12 11/28/24 08:42 Oxymask 12 11/28/24 08:00 Oxymask 12 PG Care Time/CCT Total # of Minutes Spent Total Time Spent with Patient: Total time spent is greater than 50% in coordination of care (as documented) at patient's floor/unit and/or counseling patient: Coding Level of Care Code None Diagnoses Acute hypercapnic respiratory failure J96.02 CHF (congestive heart failure) I50.9 Afib I48.91 Diabetes type 2, uncontrolled E11.65 Glycemic state: with hyperglycemia (4) Diabetes type 2, uncontrolled Glycemic state: with hyperglycemia Qualified Code(s): E11.65 - Type 2 diabetes mellitus with hyperglycemia
[2024-11-28] MEDS: APIXABAN 5 MG TABLET PO SCH (20:18)
[2024-11-28] MEDS: LANTUS PER UNIT CHARGE SC SCH (20:29)
[2024-11-29] MEDS: FLUTICASONE/VILANTEROL 100/25MCG 14 PUFFS/INHALER INH SCH (08:51)
[2024-11-29] MEDS: ASPIRIN 81 MG ECTAB PO SCH (08:52)
[2024-11-29 09:55] LABS: Hematocrit (blood only) 28.1 % (37.0-47.0); Hemoglobin 8.4 g/dl (12.0-16.0); Mean Corpuscular Hemoglobin 25.6 pg (25.0-34.0); Mean Corpuscular Hgb Conc 29.9 g/dL (32.0-36.0); Mean Corpuscular Volume 85.7 fL (80.0-100.0); Mean Platelet Volume 10.6 fL (9.4-12.4); Nucleated RBC # (auto) 0.02 K/uL (0.00-0.12); Nucleated RBC % (auto) 0.4 %; Platelet Count 279 K/uL (130-400); RDW Coefficient of Variation 18.5 % (11.5-14.5); RDW Standard Deviation 57.4 fL (36.4-46.3); Red Blood Count 3.28 M/uL (4.20-5.40); White Blood Count 5.49 K/ul (4.8-10.8)
[2024-11-29 10:07] LABS: BUN Creatinine Ratio 27.7 (10-20); Calcium 8.2 mg/dl (8.6-10.3); Creatinine Clr Calc Pharmacy 33.8 ml/min; Potassium 4.5 mmol/L (3.5-5.1)
--- NOTE | 2024-11-29 17:27 | Hospitalist Progress Note ---
Date of Service November 29, 2024 Assessment & Plan (1) Acute hypercapnic respiratory failure: (2) CHF (congestive heart failure): (3) Afib: (4) Diabetes type 2, uncontrolled: Plan 74-year-old female who presents with obtundation due to hypercarbia from acute on chronic respiratory failure with hypercarbia. Patient continues to be a current smoker. Patient also tested positive for COVID Acute on chronic respiratory failure hypercarbia. Covid, Copd, now on nc and oxymask. Patient is on dexamethasone to reduce inflammation. With concern for infiltrate on chest x-ray patient continues on ceftriaxone( also covers abnormal urine) avoiding azithromycin due to prolongued Qtc Regarding her positive COVID status patient is on dexamethasone at this time. remains on 8 liters. Patient has a history of atrial fibrillation chronically on Eliquis therapy. She is in sinus tachycardia on the EKG on presentation will restart metoprolol in tartrate form and also use metoprolol backup for tachycardia. Pt has a history of HFpEF with last Echo 11/15, chronic hypertension restart losartan anemia, not with clear melena, stable will restart cautiously in face of epigastric pain, for epigastric pain ppi plus carafate Regarding her diabetes. Her Lantus & sliding scale Goals of care discussion with her by both myself and Dr. Pollock reveals her to be a conditional code. She does not wish to have any type of respiratory support past BiPAP therapy however she does want cardiac resuscitation if her heart were to stop. Sepsis POA due to COVID-19 pneumonia & +/-UTI Overall patient outlook is guarded at this time Admission and Anticipated Discharge Date Admission Date: November 25, 2024 Subjective 74 yo female reports not at baseline. Review of Systems Review of Systems: All systems reviewed & are unremarkable except as noted in HPI & below Physical Exam Physical Exam: Patient is alert and appropriate She is RRR without murmurs heard Abdomen soft, reproducible epigastric tenderness Extremities are without edema Results & Data Results & Data Vital Signs (Past 12 Hours) Vital Signs Temp Pulse Pulse Resp BP Pulse Ox O2 Del Method 11/29/24 15:14 66 18 91 Nasal Cannula 11/29/24 15:08 37.1 C 66 22 171/79 H 91 High Flow Nasal Cannula 11/29/24 14:31 55 L 11/29/24 11:32 37.0 C 65 20 177/78 H 90 High Flow Nasal Cannula 11/29/24 10:56 62 18 90 Nasal Cannula 11/29/24 10:07 High Flow Nasal Cannula 11/29/24 08:00 36.9 C 65 20 182/65 H 95 High Flow Nasal Cannula 11/29/24 07:56 62 18 94 Nasal Cannula 11/29/24 07:27 65 11/29/24 06:15 95 High Flow Nasal Cannula O2 Flow Rate 11/29/24 15:14 8 11/29/24 15:08 8 11/29/24 14:31 11/29/24 11:32 8 11/29/24 10:56 7 11/29/24 10:07 7 11/29/24 08:00 8 11/29/24 07:56 7 11/29/24 07:27 11/29/24 06:15 8 PG Care Time/CCT Total # of Minutes Spent Total Time Spent with Patient: Total time spent is greater than 50% in coordination of care (as documented) at patient's floor/unit and/or counseling patient: Coding Level of Care Code 40129 SUB INP/OBS CARE 2/35MIN Diagnoses Acute hypercapnic respiratory failure J96.02 CHF (congestive heart failure) I50.9 Afib I48.91 Diabetes type 2, uncontrolled E11.65 Glycemic state: with hyperglycemia (4) Diabetes type 2, uncontrolled Glycemic state: with hyperglycemia Qualified Code(s): E11.65 - Type 2 diabetes mellitus with hyperglycemia
[2024-11-29] MEDS: PANTOprazole 40 MG TAB PO SCH (21:53)
[2024-11-30 08:09] LABS: BUN Creatinine Ratio 30.2 (10-20); C Reactive Protein 0.52 mg/dl (0-0.5); Calcium 8.5 mg/dl (8.6-10.3); Creatinine Clr Calc Pharmacy 37.9 ml/min; Potassium 4.7 mmol/L (3.5-5.1)
[2024-11-30 08:14] LABS: Hemoglobin 9.1 g/dl (12.0-16.0); Mean Corpuscular Hemoglobin 25.9 pg (25.0-34.0); Mean Corpuscular Hgb Conc 30.3 g/dL (32.0-36.0); Mean Corpuscular Volume 85.2 fL (80.0-100.0); Mean Platelet Volume 10.3 fL (9.4-12.4); Nucleated RBC # (auto) 0.02 K/uL (0.00-0.12); Nucleated RBC % (auto) 0.3 %; Platelet Count 293 K/uL (130-400); RDW Coefficient of Variation 18.5 % (11.5-14.5); Red Blood Count 3.52 M/uL (4.20-5.40); White Blood Count 7.05 K/ul (4.8-10.8)
[2024-11-30 08:33] LABS: Acanthocytes 1+; Basophils # (auto) 0.02 K/uL (0.00-0.20); Basophils % (auto) 0.3 %; Eosinophils # (auto) 0.01 K/uL (0.00-0.50); Eosinophils % (auto) 0.1 %; Immature Granulocytes # (auto) 0.52 K/uL (0.01-0.20); Immature Granulocytes % (auto) 7.4 %; Lymphocytes # (auto) 0.95 K/uL (1.20-3.40); Lymphocytes % (auto) 13.5 %; Monocytes # (auto) 0.71 K/uL (0.11-0.59); Monocytes % (auto) 10.1 %; Neutrophils # (auto) 4.84 K/uL (1.40-6.50); Neutrophils % (auto) 68.6 %; Ovalocytes 1+
[2024-11-30] MEDS ORDERED: Nursing to Pharmacy Communication SCH (18:15)
[2024-11-30] MEDS: FAMOTIDINE 20MG IV PUSH 20 MG/5 ML SYR IV SCH (20:15)
--- NOTE | 2024-11-30 22:28 | Hospitalist Progress Note ---
Date of Service November 30, 2024 Assessment & Plan (1) Acute hypercapnic respiratory failure: (2) CHF (congestive heart failure): (3) Afib: (4) Diabetes type 2, uncontrolled: Plan 74-year-old female who presents with obtundation due to hypercarbia from acute on chronic respiratory failure with hypercarbia. Patient continues to be a current smoker. Patient also tested positive for COVID Acute on chronic respiratory failure hypercarbia. Covid, Copd, now on nc and oxymask. Patient is on dexamethasone to reduce inflammation. With concern for infiltrate on chest x-ray patient continues on ceftriaxone( also covers abnormal urine) avoiding azithromycin due to prolongued Qtc Oxygen requireent has been slowly decreasing down to 6 liters. Regarding her positive COVID status patient is on dexamethasone at this time. remains on 8 liters. Patient has a history of atrial fibrillation chronically on Eliquis therapy. She is in sinus tachycardia on the EKG on presentation will restart metoprolol in tartrate form and also use metoprolol backup for tachycardia. Pt has a history of HFpEF with last Echo 11/15, chronic hypertension restart losartan anemia, not with clear melena, stable will restart cautiously in face of epigastric pain, for epigastric pain ppi plus carafate: added pepcid, ordered ct abd/pelvis Regarding her diabetes. Her Lantus & sliding scale Goals of care discussion with her by both myself and Dr. oPllock reveals her to be a conditional code. She does not wish to have any type of respiratory support past BiPAP therapy however she does want cardiac resuscitation if her heart were to stop. Sepsis POA due to COVID-19 pneumonia & +/-UTI Overall patient outlook is guarded at this time Admission and Anticipated Discharge Date Admission Date: November 25, 2024 Subjective 74 yo female reports no new symptoms. Physical Exam Physical Exam: Patient is alert and appropriate She is RRR without murmurs heard Abdomen soft, reproducible epigastric tenderness Extremities are without edema Results & Data Results & Data Vital Signs (Past 12 Hours) Vital Signs Temp Pulse Pulse Pulse Resp BP BP 11/30/24 20:27 67 16 11/30/24 20:00 36.7 C 72 20 170/79 H 11/30/24 17:37 69 11/30/24 16:00 36.8 C 72 18 175/72 H 11/30/24 11:32 36.4 C L 68 20 172/76 H 11/30/24 11:00 11/30/24 10:57 70 17 Pulse Ox Pulse Ox O2 Del Method O2 Del Method O2 Flow Rate O2 Flow Rate 11/30/24 20:27 92 Nasal Cannula 6 11/30/24 20:00 92 High Flow Nasal Cannula 7 11/30/24 17:37 11/30/24 16:00 97 Oxymask, High Flow Nasal Cannula 7 11/30/24 11:32 89 L High Flow Nasal Cannula 6 11/30/24 11:00 94 High Flow Nasal Cannula 6 11/30/24 10:57 92 Nasal Cannula 6 PG Care Time/CCT Total # of Minutes Spent Total Time Spent with Patient: Total time spent is greater than 50% in coordination of care (as documented) at patient's floor/unit and/or counseling patient: Coding Level of Care Code 86916 SUB INP/OBS CARE 2/35MIN Diagnoses Acute hypercapnic respiratory failure J96.02 CHF (congestive heart failure) I50.9 Afib I48.91 Diabetes type 2, uncontrolled E11.65 Glycemic state: with hyperglycemia (4) Diabetes type 2, uncontrolled Glycemic state: with hyperglycemia Qualified Code(s): E11.65 - Type 2 diabetes mellitus with hyperglycemia
[2024-12-01 08:31] LABS: Hematocrit (blood only) 29.8 % (37.0-47.0); Hemoglobin 9.3 g/dl (12.0-16.0); Mean Corpuscular Hemoglobin 26.2 pg (25.0-34.0); Mean Corpuscular Hgb Conc 31.2 g/dL (32.0-36.0); Mean Corpuscular Volume 83.9 fL (80.0-100.0); Mean Platelet Volume 10.3 fL (9.4-12.4); Nucleated RBC # (auto) 0.02 K/uL (0.00-0.12); Nucleated RBC % (auto) 0.3 %; Platelet Count 306 K/uL (130-400); RDW Coefficient of Variation 18.5 % (11.5-14.5); RDW Standard Deviation 56.5 fL (36.4-46.3); Red Blood Count 3.55 M/uL (4.20-5.40); White Blood Count 6.99 K/ul (4.8-10.8)
[2024-12-01 08:51] LABS: Anion Gap 5 (3-11); BUN Creatinine Ratio 37.9 (10-20); Blood Urea Nitrogen 36 mg/dl (6-23); C Reactive Protein < 0.50 mg/dl (0-0.5); Calcium 8.7 mg/dl (8.6-10.3); Carbon Dioxide 32 mmol/L (21-32); Chloride 102 mmol/L (98-107); Creatinine Clr Calc Pharmacy 42.3 ml/min; Glucose 107 mg/dl (70-99(Fasting)); Potassium 4.4 mmol/L (3.5-5.1); Sodium 139 mmol/L (136-145)
[2024-12-01] MEDS: OPTIRAY 320 100ml IV ONE (11:26)
--- NOTE | 2024-12-01 12:01 | CT Scan Report ---
ABDOMEN AND PELVIS CT WITH IV CONTRAST CT DOSE: 722.3 mGy.cm HISTORY: epigastric pain TECHNIQUE: Multiaxial CT images of the abdomen and pelvis were performed following the IV administrat ion of 94 cc of Optiray, A dose lowering technique was utilized adhering to the principles of ALARA. COMPARISON STUDY: 05/23/2024 FINDINGS: There are small bilateral pleural effusions, increased in size. There is consolidation of t he entire visualized left lower lung lobe, pneumonia versus atelectasis. ABDOMEN: Gallbladder is surgically absent. There are stable splenic calcifications consistent with pr ior granulomatous disease. Liver and spleen and right adrenal gland are otherwise unremarkable. There is a 1.6 cm nodule at the left adrenal gland, mildly increased in size. There is mildly increased pa ncreatic ductal dilatation. No gross pancreatic mass seen. No evidence of acute pancreatitis. Kidneys show no hydronephrosis or calculi. There are scattered atherosclerotic calcifications. Infrarenal ab dominal aortic aneurysm measures 4.1 cm greatest AP diameter, stable. Pelvis: Gutierrez catheter is present in the urinary bladder is empty. Uterus is absent. No adnexal mass. There is moderate retained stool. There is colonic diverticulosis. No acute diverticulitis. No bowel inflammation or obstruction. No enlarged adenopathy. No free fluid, free air, or abscess. Osseous structures: There is lumbar degenerative disc disease with grade 1 anterolisthesis of L4 on 5 and L5 on S1. There is a stable 2.3 cm sclerotic focus at the proximal right femur, possibly a large bone island. IMPRESSION: 1. Increased small bilateral pleural effusions. Complete consolidation of the visualized left lower l juan c lobe, pneumonia versus atelectasis. 2. Increased pancreatic ductal dilatation without gross pancreatic mass seen by CT. This is sometimes seen in the setting of tiny mass at the pancreatic head or ampulla of [place] which is below CT resolu tion. 3. Mildly increased size of the left adrenal nodule. 4. No other acute findings seen. Otherwise as described. ACT 112: Positive. There are findings on this exam that require communication between the performing entity and the patient following Patient Test Result Information Act ([place] Act 112) guidelines. The above report was generated using voice recognition software. It may contain grammatical, syntax o r spelling errors. Electronically signed by: Anthony Quiroz M.D. 12/01/2024 11:59 AM
[2024-12-01] MEDS: HYDROmorphone INJ 0.5 MG/0.5 ML SYR IV STA (19:20)
--- NOTE | 2024-12-01 22:22 | Hospitalist Progress Note ---
Date of Service December 01, 2024 Assessment & Plan (1) Acute hypercapnic respiratory failure: (2) CHF (congestive heart failure): (3) Afib: (4) Diabetes type 2, uncontrolled: Plan 74-year-old female who presents with obtundation due to hypercarbia from acute on chronic respiratory failure with hypercarbia. Patient continues to be a current smoker. Patient also tested positive for COVID Acute on chronic respiratory failure hypercarbia. Covid, Copd, now on nc and oxymask. Patient is on dexamethasone to reduce inflammation. With concern for infiltrate on chest x-ray patient continues on ceftriaxone( also covers abnormal urine) avoiding azithromycin due to prolongued Qtc Oxygen requirement has remained at 7 on 12/01. This is concerning. reviewed BMP and cbc on 12/01: hemoglobin stable no leukocytosis. Regarding her positive COVID status patient is on dexamethasone at this time. Patient has a history of atrial fibrillation chronically on Eliquis therapy. She is in sinus tachycardia on the EKG on presentation will restart metoprolol in tartrate form and also use metoprolol backup for tachycardia. Pt has a history of HFpEF with last Echo 11/15, chronic hypertension restart losartan anemia, not with clear melena, stable will restart cautiously in face of epigastric pain, for epigastric pain ppi plus carafate: added pepcid, reviewed ct abd/pelvis: showing ductal dilatation in pancreas, no mass but may have a small lesion. Will consult gastro. Regarding her diabetes. Her Lantus & sliding scale Goals of care discussion with her by both myself and Dr. Pollock reveals her to be a conditional code. She does not wish to have any type of respiratory support past BiPAP therapy however she does want cardiac resuscitation if her heart were to stop. Sepsis POA due to COVID-19 pneumonia & +/-UTI Overall patient outlook is guarded at this time Admission and Anticipated Discharge Date Admission Date: November 25, 2024 Subjective 74 yo female reports she continues to have abdominal pain. Review of Systems Review of Systems: All systems reviewed & are unremarkable except as noted in HPI & below Physical Exam Physical Exam: Patient is alert and appropriate She is RRR without murmurs heard Abdomen soft, reproducible epigastric tenderness Extremities are without edema Results & Data Results & Data Vital Signs (Past 12 Hours) Vital Signs Temp Pulse Resp BP BP Pulse Ox Pulse Ox 12/01/24 22:20 70 18 95 12/01/24 19:31 36.5 C 73 20 169/80 H 92 12/01/24 19:11 76 18 97 12/01/24 15:37 36.3 C L 80 30 H 165/77 H 92 12/01/24 14:43 73 20 88 L 12/01/24 11:19 36.7 C 70 19 181/84 H 90 12/01/24 11:00 88 L O2 Del Method O2 Del Method O2 Flow Rate O2 Flow Rate 12/01/24 22:20 Nasal Cannula 7 12/01/24 19:31 High Flow Nasal Cannula 7 12/01/24 19:11 Nasal Cannula 7 12/01/24 15:37 High Flow Nasal Cannula 7 12/01/24 14:43 Nasal Cannula 4 12/01/24 11:19 Nasal Cannula 4 12/01/24 11:00 Nasal Cannula 7 PG Care Time/CCT Total # of Minutes Spent Total Time Spent with Patient: Total time spent is greater than 50% in coordination of care (as documented) at patient's floor/unit and/or counseling patient: Coding Level of Care Code 23519 SUB INP/OBS CARE 3/50MIN Diagnoses Acute hypercapnic respiratory failure J96.02 CHF (congestive heart failure) I50.9 Afib I48.91 Diabetes type 2, uncontrolled E11.65 Glycemic state: with hyperglycemia (4) Diabetes type 2, uncontrolled Glycemic state: with hyperglycemia Qualified Code(s): E11.65 - Type 2 diabetes mellitus with hyperglycemia
--- NOTE | 2024-12-02 09:41 | Gastrointestinal Consultation ---
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 In the past, it was recommended she have outpatient EUS but she has chosen not to have done. It is still our recommendation that she have an outpatient EUS done. she tells me that she does not wish to have any further work up on this which is ultimately her decision. Supervising Physician Co-Signing Physician Notes I saw and examined this patient with our nurse practitioner and agree with her assessment and plan. Findings of dilated pancreatic duct have been present for several years now. It is associated with pancreatic atrophy which can result in a more dilated appearing pancreatic duct. No evidence of any masses. It is unlikely she has any significant malignancy based on the imaging. At this point she is refusing any further evaluation which I feel is reasonable. However if she continues to have abdominal pain requiring narcotics I recommend getting mesenteric Dopplers to rule out chronic mesenteric ischemia History of Present Illness Reason for Consultation: pancreatic duct dilation Requesting Physician: Jigar Hein MD Attending Physician: Jigar Hein History of Present Illness Patient is a 74 year old female who presented to the ED on 11/25/24 with acute on chronic respiratory failure with hypercarbia. Found to have COVID and was admitted. She had CT scan done during admission on 11/30 showing Increased pancreatic ductal dilatation without gross pancreatic mass seen by CT. This is sometimes seen in the setting of tiny mass at the pancreatic head or ampulla of [place] which is below CT resolution. She has had this finding in the past and it was recommended that she have an outpatient EUS but she chose not to have done. She has declined further work up on this and continues to decline further work up of this. she denies nausea, vomiting, heartburn, abdominal pain, weight loss, changes in bowels. Allergies Allergy/AdvReac Type Severity Reaction Status Date / Time diflunisal AdvReac Intermediate HEART RACES Verified 05/23/24 19:23 Home Medications Medication Instructions Recorded Confirmed Type albuterol sulfate 90 mcg/actuation 2 puff inhalation Q6 PRN Shortness 08/28/20 11/25/24 History aerosol inhaler (Ventolin HFA) Of Breath Or Wheezing aspirin 81 mg tablet,delayed 81 mg PO QAM 08/28/20 11/25/24 History release (Uri Low Dose Aspirin) metformin 1,000 mg tablet 1,000 mg PO BID 08/28/20 11/25/24 History blood sugar diagnostic (OneTouch #50 ea 06/02/21 11/25/24 Rx Verio test strips) folic acid 1 mg tablet 1 mg PO QAM 03/24/22 11/25/24 History losartan 50 mg tablet 50 mg PO QAM 03/24/22 11/25/24 History ipratropium 0.5 mg-albuterol 3 mg 3 ml inhalation Q4H PRN shortness 12/13/22 11/25/24 Rx (2.5 mg base)/3 mL nebulization of breath #90 mL soln rosuvastatin 20 mg tablet 20 mg PO QAM 08/23/23 11/25/24 History diltiazem HCl 180 mg 180 mg PO QAM #30 caps 09/10/23 11/25/24 Rx capsule,extended release 24 hr budesonide-formoterol HFA 160 2 puff inhalation BID 09/21/23 11/25/24 History mcg-4.5 mcg/actuation aerosol inhaler pantoprazole 40 mg tablet,delayed 40 mg PO BID #60 tabs 11/24/23 11/25/24 Rx release guaifenesin 600 mg tablet, 1,200 mg PO Q12 PRN Congestion 02/10/24 11/25/24 History extended release 12 hr (Mucinex) cyanocobalamin (vitamin B-12) 500 1,000 mcg (2 x 500 mcg) PO QAM #30 02/13/24 11/25/24 Rx mcg tablet tabs formoterol fumarate 20 mcg/2 mL 20 mcg (2 mL) NEB BIDR #60 mL 02/13/24 11/25/24 Rx solution for nebulization (Perforomist) apixaban 5 mg tablet (Eliquis) 5 mg PO BID 04/30/24 11/25/24 History ferrous sulfate 325 mg (65 mg 325 mg PO BID 04/30/24 11/25/24 History iron) tablet fluticasone furoate 100 1 inh inhalation DAILY 04/30/24 11/25/24 History mcg-vilanterol 25 mcg/dose inhalation powder (Breo Ellipta) furosemide 20 mg tablet 20 mg PO DAILY PRN Edema 04/30/24 11/25/24 History insulin glargine 100 unit/mL (3 20 unit subcut BID 04/30/24 11/25/24 History mL) subcutaneous pen (Lantus Solostar U-100 Insulin) insulin lispro 100 unit/mL 8 unit subcut TID 04/30/24 11/25/24 History subcutaneous pen (Humalog KwikPen (U-100) Insulin) metoprolol succinate 50 mg 50 mg PO BID 04/30/24 11/25/24 History tablet,extended release 24 hr sodium chloride 7 % for 1 inh inhalation BID PRN 04/30/24 11/25/24 History nebulization SOB/WHEEZING oxycodone 5 mg tablet 10 mg (2 x 5 mg) PO TID PRN Pain 05/02/24 11/25/24 Rx #10 tabs budesonide 160 mcg-glycopyr 9 2 inh inhalation BID 05/23/24 11/25/24 History mcg-formot 4.8 mcg/actuation HFA inhaler (Breztri Aerosphere) umeclidinium 62.5 mcg/actuation 1 inh inhalation DAILY 05/23/24 11/25/24 History blister powder for inhalation (Incruse Ellipta) Patient History Medical History (Updated 11/25/24 @ 17:16 by Edilson Durand MD, [facility]) Anemia Sepsis Acute confusion Severe muscle deconditioning COPD exacerbation Respiratory failure Hyperkalemia Acute hypercapnic respiratory failure TATY (acute kidney injury) AMS (altered mental status) Syncope Acute UTI Acute hypotension Chronic kidney disease, stage 3a Acute kidney injury Acute exacerbation of chronic low back pain Candidiasis of mouth and esophagus DVT prophylaxis Diabetes mellitus COPD (chronic obstructive pulmonary disease) Hypertension Hyperlipidemia Acute on chronic respiratory failure with hypoxia and hypercapnia Family History Other Family history non-contributory Social History Smoking Status: Current every day smoker Tobacco Type: Cigarettes Age Started Using Tobacco: 32; Cigarettes Per Day: 10; Second Hand Exposure: Yes; Do You Dip or Chew Tobacco: No; Hx Alcohol Use: No Hx Substance Use: No Preferred Language: Tanzanian Communication Ability: Effective Fancy Sewer Required: No Beliefs That Will Affect Care: None marital status: Current Living Situation: Spouse Current Living Situation Comment: With Juan How many Children do You have: 3 Feels Safe at Home: Yes Assistive Devices: Cane, Walker and Wheelchair Review of Systems Review of Systems: All systems reviewed & are unremarkable except as noted in HPI & below Physical Exam Constitutional: WD/WN, vitals as above Respiratory: normal respiratory effort, lungs clear to auscultation Cardiovascular: Rate/Rhythm: regular rate and regular rhythm Gastrointestinal (Abdomen): normal bowel sounds, soft, nontender, no hepatosplenomegaly Psychiatric: Orientation: alert and oriented x 3 Results & Data Vital Signs (Past 12 Hours) Vital Signs Temp Pulse Pulse Resp BP Pulse Ox Pulse Ox 12/02/24 07:47 97.9 F 88 18 168/81 H 95 12/02/24 07:03 76 18 94 12/02/24 06:00 96 12/02/24 03:08 97.7 F 72 18 182/80 H 88 L 12/02/24 02:33 69 16 97 12/01/24 23:23 78 12/01/24 22:33 98.1 F 69 18 183/92 H 99 12/01/24 22:20 70 18 95 12/01/24 22:11 O2 Del Method O2 Del Method O2 Flow Rate O2 Flow Rate 12/02/24 07:47 High Flow Nasal Cannula 7 12/02/24 07:03 Nasal Cannula 4 12/02/24 06:00 High Flow Nasal Cannula 9 12/02/24 03:08 Nasal Cannula, High Flow Nasal Cannula 7 12/02/24 02:33 Nasal Cannula 5 12/01/24 23:23 12/01/24 22:33 High Flow Nasal Cannula 7 12/01/24 22:20 Nasal Cannula 7 12/01/24 22:11 Nasal Cannula, High Flow Nasal Cannula 7 Laboratory Results Laboratory Results - last 48 hr 11/30/24 12/01/24 12/01/24 20:14 07:40 08:10 WBC 6.99 RBC 3.55 L Hgb 9.3 L Hct 29.8 L MCV 83.9 MCH 26.2 MCHC 31.2 L RDW Std Deviation 56.5 H RDW Coeff of Dorcas 18.5 H Plt Count 306 MPV 10.3 Absolute Nucleated RBC 0.02 Nucleated RBC % (auto) 0.3 Sodium 139 Potassium 4.4 Chloride 102 Carbon Dioxide 32 Anion Gap 5 BUN 36 H Creatinine 0.95 Est Cr Clr Drug Dosing 42.3 eGFR 63.66 BUN/Creatinine Ratio 37.9 H Glucose 107 H POC Glucose 117 H 105 H Calcium 8.7 C-Reactive Protein < 0.50 Procalcitonin 12/01/24 12/01/24 12/01/24 11:16 16:39 20:03 WBC RBC Hgb Hct MCV MCH MCHC RDW Std Deviation RDW Coeff of Dorcas Plt Count MPV Absolute Nucleated RBC Nucleated RBC % (auto) Sodium Potassium Chloride Carbon Dioxide Anion Gap BUN Creatinine Est Cr Clr Drug Dosing eGFR BUN/Creatinine Ratio Glucose POC Glucose 101 H 113 H 138 H Calcium C-Reactive Protein Procalcitonin 12/02/24 12/02/24 12/02/24 07:27 09:40 11:32 WBC 5.76 RBC 3.43 L Hgb 8.7 L Hct 29.2 L MCV 85.1 MCH 25.4 MCHC 29.8 L RDW Std Deviation 59.2 H RDW Coeff of Dorcas 18.9 H Plt Count 302 MPV 9.8 Absolute Nucleated RBC Nucleated RBC % (auto) Sodium 139 Potassium 4.0 Chloride 103 Carbon Dioxide 31 Anion Gap 5 BUN 35 H Creatinine 0.96 Est Cr Clr Drug Dosing 41.9 eGFR 62.86 BUN/Creatinine Ratio 36.5 H Glucose 138 H POC Glucose 109 H 51 L* Calcium 8.4 L C-Reactive Protein < 0.50 Procalcitonin 0.26 12/02/24 12/02/24 11:34 12:06 WBC RBC Hgb Hct MCV MCH MCHC RDW Std Deviation RDW Coeff of Dorcas Plt Count MPV Absolute Nucleated RBC Nucleated RBC % (auto) Sodium Potassium Chloride Carbon Dioxide Anion Gap BUN Creatinine Est Cr Clr Drug Dosing eGFR BUN/Creatinine Ratio Glucose POC Glucose 47 L* 199 H Calcium C-Reactive Protein Procalcitonin Coding Level of Care Code 24630 IN/OBS CONSULT LVL 3,45M Diagnoses Dilated pancreatic duct K86.89
[2024-12-02 10:00] LABS: Hematocrit (blood only) 29.2 % (37.0-47.0); Hemoglobin 8.7 g/dl (12.0-16.0); Mean Corpuscular Hemoglobin 25.4 pg (25.0-34.0); Mean Corpuscular Hgb Conc 29.8 g/dL (32.0-36.0); Mean Corpuscular Volume 85.1 fL (80.0-100.0); Mean Platelet Volume 9.8 fL (9.4-12.4); Platelet Count 302 K/uL (130-400); RDW Coefficient of Variation 18.9 % (11.5-14.5); RDW Standard Deviation 59.2 fL (36.4-46.3); Red Blood Count 3.43 M/uL (4.20-5.40); White Blood Count 5.76 K/ul (4.8-10.8)
[2024-12-02 10:17] LABS: Anion Gap 5 (3-11); BUN Creatinine Ratio 36.5 (10-20); Blood Urea Nitrogen 35 mg/dl (6-23); C Reactive Protein < 0.50 mg/dl (0-0.5); Calcium 8.4 mg/dl (8.6-10.3); Carbon Dioxide 31 mmol/L (21-32); Chloride 103 mmol/L (98-107); Creatinine Clr Calc Pharmacy 41.9 ml/min; Glucose 138 mg/dl (70-99(Fasting)); Sodium 139 mmol/L (136-145)
[2024-12-02] MEDS: DEXTROSE 50% 50 ML SYRINGE IV PRN (11:45)
[2024-12-02] MEDS: FUROSEMIDE INJ 20 MG/2 ML VIAL IV ONE (13:51)
[2024-12-02] MEDS: OPTIRAY 320 125ml IV ONE (15:35)
--- NOTE | 2024-12-02 16:06 | CT Scan Report ---
CT angio chest PE protocol CT DOSE: 619.17 mGy.cm HISTORY: PE. TECHNIQUE: Multiple CTA images of the chest were obtained after the intravenous administration of 90 ml Optiray. Coronal and sagittal MIPS were obtained from the axial data set and were submitted for r eview. All measurements were obtained according to NASCET criteria. A dose lowering technique was ut ilized adhering to the principles of ALARA. COMPARISON STUDY: 02/25/2024 FINDINGS: There is severe emphysema. There are small bilateral pleural effusions which layer dependen tly. There is mucous plugging in the lower lobe airways. There is complete collapse of the left lower lung lobe. No pneumothorax. Stable minimally enlarged precarinal lymph node. No enlarged adenopathy seen. No pericardial effusion. There are scattered coronary artery and aortic calcifications. No thor acic aortic dissection or aneurysm. No pulmonary bolus on. There are mild thoracic spine degenerative changes. IMPRESSION: 1. No pulmonary embolism. 2. Severe emphysema. 3. Mucous plugging in the lower lobe airways with complete collapse of the left lower lung lobe. 4. Small bilateral pleural effusions. ACT 112: Negative or not required by law. The above report was generated using voice recognition software. It may contain grammatical, syntax o r spelling errors. Electronically signed by: Anthony Quiroz M.D. 12/02/2024 4:04 PM
--- NOTE | 2024-12-02 22:31 | Hospitalist Progress Note ---
Date of Service December 02, 2024 Assessment & Plan (1) Acute hypercapnic respiratory failure: (2) CHF (congestive heart failure): (3) Afib: (4) Diabetes type 2, uncontrolled: Plan 74-year-old female who presents with obtundation due to hypercarbia from acute on chronic respiratory failure with hypercarbia. Patient continues to be a current smoker. Patient also tested positive for COVID Acute on chronic respiratory failure hypercarbia. Covid, Copd, now on nc and oxymask. Patient is on dexamethasone to reduce inflammation. With concern for infiltrate on chest x-ray patient continues on ceftriaxone( also covers abnormal urine) avoiding azithromycin due to prolongued Qtc Oxygen requirement has at 9 on 12/02. This is concerning. Ordered Ct chest with contrast after discussing with pulmonary. Given COVID 19 patient is hypercoagulable and will need to rule out pulmonary emboli eventhough patient is one eliquis. reviewed BMP and cbc on 12/02: hemoglobin stable no leukocytosis. CT scan showed mucous plugging: will order chest vest physical therapy. Regarding her positive COVID status patient is on dexamethasone at this time. Patient has a history of atrial fibrillation chronically on Eliquis therapy. She is in sinus tachycardia on the EKG on presentation will restart metoprolol in tartrate form and also use metoprolol backup for tachycardia. Pt has a history of HFpEF with last Echo 11/15, chronic hypertension restart losartan anemia, not with clear melena, stable will restart cautiously in face of epigastric pain, for epigastric pain ppi plus carafate: added pepcid, reviewed ct abd/pelvis: showing ductal dilatation in pancreas, no mass but may have a small lesion. Will consult gastro. Regarding her diabetes. Her Lantus & sliding scale Goals of care discussion with her by both myself and Dr. Pollock reveals her to be a conditional code. She does not wish to have any type of respiratory support past BiPAP therapy however she does want cardiac resuscitation if her heart were to stop. Sepsis POA due to COVID-19 pneumonia & +/-UTI Overall patient outlook is guarded at this time Admission and Anticipated Discharge Date Admission Date: November 25, 2024 Subjective Patient reports no new symptoms. Review of Systems Review of Systems: All systems reviewed & are unremarkable except as noted in HPI & below Physical Exam Physical Exam: Patient is alert and appropriate She is RRR without murmurs heard Abdomen soft, reproducible epigastric tenderness Extremities are without edema Results & Data Results & Data Vital Signs (Past 12 Hours) Vital Signs Temp Pulse Resp BP Pulse Ox Pulse Ox O2 Del Method 12/02/24 22:12 67 20 97 Nasal Cannula 12/02/24 21:06 High Flow Nasal Cannula 12/02/24 19:55 77 22 96 Nasal Cannula 12/02/24 19:51 36.7 C 87 20 169/84 H 92 High Flow Nasal Cannula 12/02/24 16:30 36.6 C 74 16 175/76 H 92 High Flow Nasal Cannula 12/02/24 15:48 71 18 93 Nasal Cannula 12/02/24 15:25 36.8 C 77 18 163/71 H 96 High Flow Nasal Cannula 12/02/24 11:41 71 20 93 Nasal Cannula 12/02/24 11:00 89 L O2 Del Method O2 Flow Rate O2 Flow Rate 12/02/24 22:12 9 12/02/24 21:06 9 12/02/24 19:55 8 12/02/24 19:51 7 12/02/24 16:30 7 12/02/24 15:48 9 12/02/24 15:25 7 12/02/24 11:41 9 12/02/24 11:00 Nasal Cannula 9 PG Care Time/CCT Total # of Minutes Spent Total Time Spent with Patient: Total time spent is greater than 50% in coordination of care (as documented) at patient's floor/unit and/or counseling patient: Coding Level of Care Code 94258 SUB INP/OBS CARE 3/50MIN Diagnoses Acute hypercapnic respiratory failure J96.02 CHF (congestive heart failure) I50.9 Afib I48.91 Diabetes type 2, uncontrolled E11.65 Glycemic state: with hyperglycemia (4) Diabetes type 2, uncontrolled Glycemic state: with hyperglycemia Qualified Code(s): E11.65 - Type 2 diabetes mellitus with hyperglycemia
[2024-12-03 07:16] LABS: Hemoglobin 8.7 g/dl (12.0-16.0); Mean Corpuscular Hemoglobin 25.9 pg (25.0-34.0); Mean Corpuscular Volume 86.3 fL (80.0-100.0); Mean Platelet Volume 10.3 fL (9.4-12.4); Platelet Count 333 K/uL (130-400); RDW Coefficient of Variation 18.6 % (11.5-14.5); RDW Standard Deviation 59.1 fL (36.4-46.3); Red Blood Count 3.36 M/uL (4.20-5.40); White Blood Count 4.46 K/ul (4.8-10.8)
[2024-12-03 07:39] LABS: BUN Creatinine Ratio 31.9 (10-20); Calcium 8.3 mg/dl (8.6-10.3); Creatinine Clr Calc Pharmacy 35.6 ml/min; Potassium 4.2 mmol/L (3.5-5.1)
[2024-12-03] MEDS: GLUCOSE 40% GEL 15 GM TUBE PO PRN (07:47)
[2024-12-03] MEDS ORDERED: PHARMACY GLYCEMIC MGMT CONSULT PRN (07:55)
[2024-12-03] MEDS: ALUMINUM/MAGNESIUM SUSP 30 ML UDC PO PRN (12:56)
--- NOTE | 2024-12-03 14:41 | Pharmacy Report ---
Pharmacy Glycemic Short Note 2 - Date of Service December 03, 2024 - Glycemic Short BSG Results (Last 24 hours): 12/02/24 12/02/24 12/03/24 16:39 19:37 06:22 Glucose 39 L* POC Glucose 78 142 H 12/03/24 12/03/24 12/03/24 07:41 07:42 08:26 Glucose POC Glucose 44 L* 47 L* 113 H 12/03/24 11:41 Glucose POC Glucose 93 OUTPATIENT ANTIDIABETIC REGIMEN: * Glargine 20 u BID, lispro 8 u TIDM, metformin 1 gm BID * last A1c was 7.5 recorded on 11/26/24 ASSESSMENT: * 74 yo F w/PMH of CHF, Afib, T2DM presenting w/respiratory failure on 11/25/24. Pharmacy consulted for glycemic management on 12/03/24. * Patients glycemic management has been difficult with a few BSGs in the 300s earlier in the admission and most recently severe hypoglycemia with BSG of 47 yesterday and 39 this morning both requiring treatments. BSG 93 at lunch. Per nursing notes pt has been refusing some of her meals/snacks * With pt's recent hypoglycemia and decreased PO intake will loosen Novolog parameters, increase goal range, and for now, hold pt's Lantus until glucose gets above goal range. PLAN FOR INPATIENT GLYCEMIC CONTROL: * Hold outpatient oral diabetes medications * Basal insulin * Lantus will be held until BSGs rebound from recent hypoglycemic episodes. * Bolus insulin * NovoLog per scale ACHS or Q6hrs while NPO * Goal Range: Low 120 mg/dL - High 150 mg/dL * Correction Factor: 20 mg/dL/unit * Nutritional / Prandial insulin per carb ratio of 1 unit per 15 grams CHO consumed
[2024-12-03] MEDS: POLYETHYLENE (MIRALAX) 17 GM PACK PO SCH (20:43)
--- NOTE | 2024-12-03 23:18 | Hospitalist Progress Note ---
Date of Service December 03, 2024 Assessment & Plan (1) Acute hypercapnic respiratory failure: (2) CHF (congestive heart failure): (3) Afib: (4) Diabetes type 2, uncontrolled: Plan 74-year-old female who presents with obtundation due to hypercarbia from acute on chronic respiratory failure with hypercarbia. Patient continues to be a current smoker. Patient also tested positive for COVID Acute on chronic respiratory failure hypercarbia. Covid, Copd, now on nc and oxymask. Patient is on dexamethasone to reduce inflammation. With concern for infiltrate on chest x-ray patient continues on ceftriaxone( also covers abnormal urine) avoiding azithromycin due to prolongued Qtc Oxygen requirement has at 9 on 12/02. This is concerning. Ordered Ct chest with contrast after discussing with pulmonary. Given COVID 19 patient is hypercoagulable and will need to rule out pulmonary emboli eventhough patient is one eliquis. reviewed BMP and cbc on 12/02: hemoglobin stable no leukocytosis. CT scan showed mucous plugging: Oxygen supplementation remains high despite chest vest and hypertonic saline. Regarding her positive COVID status patient is on dexamethasone at this time. Patient has a history of atrial fibrillation chronically on Eliquis therapy. She is in sinus tachycardia on the EKG on presentation will restart metoprolol in tartrate form and also use metoprolol backup for tachycardia. Pt has a history of HFpEF with last Echo 11/15, chronic hypertension restart losartan anemia, not with clear melena, stable will restart cautiously in face of epigastric pain, for epigastric pain ppi plus carafate: added pepcid, reviewed ct abd/pelvis: showing ductal dilatation in pancreas, no mass but may have a small lesion. Gastro consulted: patient does not want any intervention; reviewed labs on 12/03 Regarding her diabetes. Her Lantus & sliding scale Goals of care discussion with her by both myself and Dr. Pollock reveals her to be a conditional code. She does not wish to have any type of respiratory support past BiPAP therapy however she does want cardiac resuscitation if her heart were to stop. Sepsis POA due to COVID-19 pneumonia & +/-UTI Overall patient outlook is guarded at this time Admission and Anticipated Discharge Date Admission Date: November 25, 2024 Subjective Patient continues to require high amounts of oxygen. Patient reports no new symptoms. Physical Exam Physical Exam: Patient is alert and appropriate She is RRR without murmurs heard Abdomen soft, reproducible epigastric tenderness Extremities are without edema Results & Data Results & Data Vital Signs (Past 12 Hours) Vital Signs Temp Pulse Pulse Resp BP BP Pulse Ox 12/03/24 22:56 36.5 C 65 18 141/76 H 97 12/03/24 22:46 58 L 12/03/24 22:31 62 18 100 12/03/24 20:29 12/03/24 19:58 36.8 C 66 18 140/70 90 12/03/24 19:15 75 18 91 12/03/24 15:40 36.5 C 68 16 143/72 H 88 L 12/03/24 15:39 65 22 92 12/03/24 15:30 35 H 88 L 12/03/24 11:42 71 22 134/69 94 12/03/24 11:18 70 20 97 O2 Del Method O2 Flow Rate 12/03/24 22:56 Nasal Cannula 12/03/24 22:46 12/03/24 22:31 Nasal Cannula 8 12/03/24 20:29 High Flow Nasal Cannula 8 12/03/24 19:58 Nasal Cannula 12/03/24 19:15 Nasal Cannula 8 12/03/24 15:40 Nasal Cannula 4 12/03/24 15:39 Nasal Cannula 8 12/03/24 15:30 Nasal Cannula 8 12/03/24 11:42 Nasal Cannula 4 12/03/24 11:18 Nasal Cannula 6 PG Care Time/CCT Total # of Minutes Spent Total Time Spent with Patient: Total time spent is greater than 50% in coordination of care (as documented) at patient's floor/unit and/or counseling patient: Coding Level of Care Code 07165 SUB INP/OBS CARE 3/50MIN Diagnoses Acute hypercapnic respiratory failure J96.02 CHF (congestive heart failure) I50.9 Afib I48.91 Diabetes type 2, uncontrolled E11.65 Glycemic state: with hyperglycemia (4) Diabetes type 2, uncontrolled Glycemic state: with hyperglycemia Qualified Code(s): E11.65 - Type 2 diabetes mellitus with hyperglycemia
[2024-12-04 07:11] LABS: Hematocrit (blood only) 29.3 % (37.0-47.0); Hemoglobin 8.7 g/dl (12.0-16.0); Mean Corpuscular Hemoglobin 25.7 pg (25.0-34.0); Mean Corpuscular Hgb Conc 29.7 g/dL (32.0-36.0); Mean Corpuscular Volume 86.4 fL (80.0-100.0); Mean Platelet Volume 10.2 fL (9.4-12.4); Platelet Count 316 K/uL (130-400); RDW Coefficient of Variation 18.6 % (11.5-14.5); RDW Standard Deviation 58.5 fL (36.4-46.3); Red Blood Count 3.39 M/uL (4.20-5.40); White Blood Count 4.61 K/ul (4.8-10.8)
[2024-12-04 07:30] LABS: Anion Gap 4 (3-11); BUN Creatinine Ratio 33.6 (10-20); Blood Urea Nitrogen 42 mg/dl (6-23); C Reactive Protein < 0.50 mg/dl (0-0.5); Calcium 8.3 mg/dl (8.6-10.3); Carbon Dioxide 33 mmol/L (21-32); Chloride 105 mmol/L (98-107); Creatinine Clr Calc Pharmacy 32.2 ml/min; Glucose 177 mg/dl (70-99(Fasting)); Potassium 4.7 mmol/L (3.5-5.1); Sodium 142 mmol/L (136-145)
[2024-12-04] MEDS: LANTUS PER UNIT CHARGE SC SCH ×2 (08:32→20:55)
[2024-12-04] MEDS: INSULIN ASPART PER UNIT CHARGE SC ONE (15:10)
--- NOTE | 2024-12-04 22:34 | Hospitalist Progress Note ---
Date of Service December 04, 2024 Assessment & Plan (1) Acute hypercapnic respiratory failure: (2) CHF (congestive heart failure): (3) Afib: (4) Diabetes type 2, uncontrolled: Plan 74-year-old female who presents with obtundation due to hypercarbia from acute on chronic respiratory failure with hypercarbia. Patient continues to be a current smoker. Patient also tested positive for COVID Acute on chronic respiratory failure hypercarbia. Covid, Copd, now on nc and oxymask. Patient is on dexamethasone to reduce inflammation. With concern for infiltrate on chest x-ray patient continues on ceftriaxone( also covers abnormal urine) avoiding azithromycin due to prolongued Qtc Oxygen requirement has at 9 on 12/02. This is concerning. Given COVID 19 patient is hypercoagulable and will need to rule out pulmonary emboli eventhough patient is one eliquis. reviewed BMP and cbc on 12/02: hemoglobin stable no leukocytosis. Reviewed cbc: no leukocytosis. CT scan showed mucous plugging: Oxygen supplementation remains high despite chest vest and hypertonic saline. continue mucinex, discussed case with pulmonary. Regarding her positive COVID status patient is on dexamethasone at this time. Patient has a history of atrial fibrillation chronically on Eliquis therapy. She is in sinus tachycardia on the EKG on presentation will restart metoprolol in tartrate form and also use metoprolol backup for tachycardia. Pt has a history of HFpEF with last Echo 11/15, chronic hypertension restart losartan anemia, not with clear melena, stable will restart cautiously in face of e pigastric pain, for epigastric pain ppi plus carafate: added pepcid, reviewed ct abd/pelvis: showing ductal dilatation in pancreas, no mass but may have a small lesion. Gastro consulted: patient does not want any intervention; reviewed labs on 12/03 Regarding her diabetes. Her Lantus & sliding scale Goals of care discussion with her by both myself and Dr. Pollock reveals her to be a conditional code. She does not wish to have any type of respiratory support past BiPAP therapy however she does want cardiac resuscitation if her heart were to stop. Sepsis POA due to COVID-19 pneumonia & +/-UTI Overall patient outlook is guarded at this time Admission and Anticipated Discharge Date Admission Date: November 25, 2024 Subjective 74 yo female reports no new symptoms. Review of Systems Review of Systems: All systems reviewed & are unremarkable except as noted in HPI & below Physical Exam Physical Exam: Patient is alert and appropriate She is RRR without murmurs heard Abdomen soft, reproducible epigastric tenderness Extremities are without edema Results & Data Results & Data Vital Signs (Past 12 Hours) Vital Signs Temp Pulse Pulse Resp BP BP Pulse Ox 12/04/24 21:19 12/04/24 20:48 95 12/04/24 19:43 36.8 C 64 20 134/65 12/04/24 19:31 71 18 96 12/04/24 18:27 73 12/04/24 15:36 68 20 91 12/04/24 15:00 37.1 C 74 20 108/63 92 12/04/24 11:51 36.5 C 75 20 118/62 84 L 12/04/24 11:24 78 20 78 L 12/04/24 11:00 Pulse Ox O2 Del Method O2 Del Method O2 Flow Rate O2 Flow Rate 12/04/24 21:19 Nasal Cannula 10 12/04/24 20:48 Nasal Cannula 10 12/04/24 19:43 12/04/24 19:31 Nasal Cannula 10 12/04/24 18:27 12/04/24 15:36 Nasal Cannula 8 12/04/24 15:00 Nasal Cannula 10.0 12/04/24 11:51 Nasal Cannula 10.0 12/04/24 11:24 Nasal Cannula 6 12/04/24 11:00 88 L Nasal Cannula 11 PG Care Time/CCT Total # of Minutes Spent Total Time Spent with Patient: Total time spent is greater than 50% in coordination of care (as documented) at patient's floor/unit and/or counseling patient: Coding Level of Care Code 49487 SUB INP/OBS CARE 3/50MIN Diagnoses Acute hypercapnic respiratory failure J96.02 CHF (congestive heart failure) I50.9 Afib I48.91 Diabetes type 2, uncontrolled E11.65 Glycemic state: with hyperglycemia (4) Diabetes type 2, uncontrolled Glycemic state: with hyperglycemia Qualified Code(s): E11.65 - Type 2 diabetes mellitus with hyperglycemia
[2024-12-05 06:22] LABS: Hematocrit (blood only) 27.2 % (37.0-47.0); Hemoglobin 8.2 g/dl (12.0-16.0); Mean Corpuscular Hemoglobin 26.1 pg (25.0-34.0); Mean Corpuscular Hgb Conc 30.1 g/dL (32.0-36.0); Mean Corpuscular Volume 86.6 fL (80.0-100.0); Mean Platelet Volume 10.6 fL (9.4-12.4); Platelet Count 296 K/uL (130-400); RDW Coefficient of Variation 18.6 % (11.5-14.5); RDW Standard Deviation 58.3 fL (36.4-46.3); Red Blood Count 3.14 M/uL (4.20-5.40); White Blood Count 4.87 K/ul (4.8-10.8)
[2024-12-05 06:34] LABS: Albumin Level 3.1 gm/dl (3.4-5.0); Anion Gap 3 (3-11); Bilirubin,Total 0.6 mg/dl (0.2-1.0); Calcium 8.3 mg/dl (8.6-10.3); Carbon Dioxide 32 mmol/L (21-32); Chloride 105 mmol/L (98-107); Potassium 4.9 mmol/L (3.5-5.1); Sodium 140 mmol/L (136-145)
[2024-12-05 06:40] LABS: BUN Creatinine Ratio 31.6 (10-20); Blood Urea Nitrogen 48 mg/dl (6-23); C Reactive Protein 0.85 mg/dl (0-0.5); Creatinine Clr Calc Pharmacy 26.5 ml/min; Glucose 132 mg/dl (70-99(Fasting))
[2024-12-05 06:49] LABS: Acanthocytes 1+; Basophils # (auto) 0.01 K/uL (0.00-0.20); Basophils % (auto) 0.2 %; Eosinophils # (auto) 0.01 K/uL (0.00-0.50); Eosinophils % (auto) 0.2 %; Immature Granulocytes # (auto) 0.25 K/uL (0.01-0.20); Immature Granulocytes % (auto) 5.1 %; Lymphocytes # (auto) 0.64 K/uL (1.20-3.40); Lymphocytes % (auto) 13.1 %; Monocytes # (auto) 0.21 K/uL (0.11-0.59); Monocytes % (auto) 4.3 %; Neutrophils # (auto) 3.75 K/uL (1.40-6.50); Neutrophils % (auto) 77.1 %; Ovalocytes 1+; Polychromasia 1+; Tear Drop Cells 1+
[2024-12-05 07:23] LABS: Alanine Aminotransferase > 2500 U/L (7-52); Albumin Globulin Ratio 1.3 (0.9-2); Alkaline Phosphatase 385 U/L (34-104); Aspartate Aminotransferase 3865 U/L (13-39); Globulin 2.4 gm/dl (2.5-4.0); Total Protein 5.5 gm/dl (6.0-8.3)
[2024-12-05] MEDS: SODIUM CHLORIDE 0.9% 1,000 ML IV SCH (12:21)
[2024-12-05 15:23] LABS: INR 1.2 (0.9-1.1); Prothrombin Time 13.3 Seconds (9.0-12.0)
--- NOTE | 2024-12-05 15:33 | Ultrasound Report ---
EXAMINATION: US abdomen right upper quadrant COMPARISON: None HISTORY: Abdominal pain TECHNIQUE: The right upper quadrant of the abdomen was scanned in standard fashion with specialized ultrasound transducers using both crabtree scale and limited color Doppler techniques. Findings: Liver: The liver demonstrates increased echogenicity suggesting steatosis, and is enlarged measuring 18.7 cm. No evidence of a focal hepatic mass or intrahepatic biliary ductal dilatation. The main portal vein is patent with antegrade flow. Gallbladder: Cholecystectomy changes Bile Ducts: Both the intra- and extrahepatic biliary system are of normal callber. The common bile duct measures 6.5 mm in diameter. Pancreas: Visualized portions of the head and body of the pancreas are unremarkable. Right kidney: Normal echotexture, without mass or hydronephrosis. Right kidney craniocaudal dimension: 9.5 cm Fluid: No evidence of ascites or pleural effusions. Impression: 1. Hepatic steatosis/hepatomegaly. 2. Cholecystectomy Electronically signed by Lion Yost 12-05-2024 3:33 PM
[2024-12-05 15:48] LABS: Alanine Aminotransferase > 2500 U/L (7-52); Albumin Level 3.2 gm/dl (3.4-5.0); Alkaline Phosphatase 391 U/L (34-104); Aspartate Aminotransferase 2553 U/L (13-39); Bilirubin Direct 0.2 mg/dl (0-0.2); Bilirubin,Total 0.5 mg/dl (0.2-1.0); Total Protein 5.7 gm/dl (6.0-8.3)
--- NOTE | 2024-12-05 16:16 | Hospitalist Progress Note ---
Date of Service December 05, 2024 Assessment & Plan (1) Acute hypercapnic respiratory failure: (2) CHF (congestive heart failure): (3) Afib: (4) Diabetes type 2, uncontrolled: Plan 74-year-old female who presents with obtundation due to hypercarbia from acute on chronic respiratory failure with hypercarbia. Patient continues to be a current smoker. Patient also tested positive for COVID Acute on chronic respiratory failure hypercarbia. Covid, Copd, now on nc and oxymask. Patient is on dexamethasone to reduce inflammation. With concern for infiltrate on chest x-ray patient continues on ceftriaxone( also covers abnormal urine) avoiding azithromycin due to prolongued Qtc Oxygen requirement has at 9 on 12/02. This is concerning. Given COVID 19 patient is hypercoagulable and will need to rule out pulmonary emboli eventhough patient is one eliquis. reviewed BMP and cbc on 12/05: hemoglobin stable no leukocytosis. Reviewed cbc: no leukocytosis. CT scan showed mucous plugging: Oxygen supplementation remains high despite chest vest and hypertonic saline. continue mucinex, discussed case with pulmonary. Regarding her positive COVID status patient completed dexamethasone. Patient has a history of atrial fibrillation chronically on Eliquis therapy. She is in sinus tachycardia on the EKG on presentation will restart metoprolol in tartrate form and also use metoprolol backup for tachycardia. Pt has a history of HFpEF with last Echo 11/15, chronic hypertension restart losartan Acute hepatitis: discovered on 12/05; Unsure if this is ischemic, or drug toxicity. will hold new medications that were started in this hospital stay such as pepcid, narcotics, mucinex. obtained mesenteric duplex as well as checking hepatic vessels anemia, not with clear melena, stable will restart cautiously in face of epigastric pain, for epigastric pain ppi plus carafate: added pepcid, reviewed ct abd/pelvis: sh owing ductal dilatation in pancreas, no mass but may have a small lesion. Gastro consulted: patient does not want any intervention; reviewed labs on 12/05 Regarding her diabetes. Her Lantus & sliding scale Goals of care discussion with her by both myself and Dr. Pollock reveals her to be a conditional code. She does not wish to have any type of respiratory support past BiPAP therapy however she does want cardiac resuscitation if her heart were to stop. Sepsis POA due to COVID-19 pneumonia & +/-UTI Overall patient outlook is guarded at this time Admission and Anticipated Discharge Date Admission Date: November 25, 2024 Subjective 74 yo female reports no new symptoms. Physical Exam Physical Exam: Patient is alert and appropriate She is RRR without murmurs heard Abdomen soft, reproducible epigastric tenderness Extremities are without edema Results & Data Results & Data Vital Signs (Past 12 Hours) Vital Signs Temp Pulse Pulse Resp BP Pulse Ox Pulse Ox 12/05/24 15:32 36.9 C 63 20 161/68 H 88 L 12/05/24 11:29 63 14 89 L 12/05/24 11:01 37.1 C 65 20 175/73 H 89 L 12/05/24 11:00 88 L 12/05/24 08:14 76 12/05/24 07:57 37.0 C 68 20 149/70 H 92 12/05/24 07:20 62 20 98 O2 Del Method O2 Del Method O2 Flow Rate O2 Flow Rate 12/05/24 15:32 Nasal Cannula 8.0 12/05/24 11:29 Nasal Cannula 7.5 12/05/24 11:01 Nasal Cannula 10.0 12/05/24 11:00 High Flow Nasal Cannula 8 12/05/24 08:14 12/05/24 07:57 Nasal Cannula 6.0 12/05/24 07:20 Nasal Cannula 6 PG Care Time/CCT Total # of Minutes Spent Total Time Spent with Patient: Total time spent is greater than 50% in coordination of care (as documented) at patient's floor/unit and/or counseling patient: Coding Level of Care Code 31928 SUB INP/OBS CARE 3/50MIN Diagnoses Acute hypercapnic respiratory failure J96.02 CHF (congestive heart failure) I50.9 Afib I48.91 Diabetes type 2, uncontrolled E11.65 Glycemic state: with hyperglycemia (4) Diabetes type 2, uncontrolled Glycemic state: with hyperglycemia Qualified Code(s): E11.65 - Type 2 diabetes mellitus with hyperglycemia
[2024-12-05] MEDS: APIXABAN 2.5 MG TAB PO SCH (21:39)
--- NOTE | 2024-12-05 23:42 | Communication Note ---
Date of Service: December 05, 2024 Was called by RN to evaluate patient given increased work of breathing and wheezing despite use of scheduled inhalers. When I arrived at bedside, patient was found to be laying down with head elevated and seemed to be mildly tachypneic. Patient endorses feeling short of breath and having tightness in her chest that is central and without radiation. Vital signs remarkable for elevated blood pressure with systolic in 200s and diastolic in high 80s, as well as pulse in the 70s, and oxygen saturation ranging between 86 and 89% with nasal cannula at 7 lpm. To my exam, patient does have expiratory wheezing but no crackles. Due to exam findings and clinical status, did order DuoNebs as needed with one to be given now, however, RN later contacted me to let me know that patient is refusing DuoNeb treatment and had fallen asleep. Will need DuoNeb as needed order in place should patient. Wake up feeling short of breath. Resident Activity Tracking Resident Involvement: Resident Care Provided Care Provided: Adult Hospital Medicine
[2024-12-05] MEDS: METOPROLOL TARTRATE 1 MG/ML VIAL IV PRN (23:56)
[2024-12-06] MEDS ORDERED: SODIUM CHLORIDE 0.9% NEBU SOLN 3 ML NEB SCH (01:00)
[2024-12-06] MEDS: ALBUT/IPRATROP 3MG/0.5MG NEB 3 ML VIAL NEB PRN (02:43)
--- NOTE | 2024-12-06 06:06 | Ultrasound Report ---
EXAM: US duplex mesenteric CLINICAL HISTORY: New hepatitis, check mesenteric. TECHNIQUE: A Doppler ultrasound was performed to evaluate the mesenteric arteries, including the celiac artery and superior mesenteric artery (SMA). Peak systolic velocities (PSV), end-diastolic velocities (EDV), and resistive indices (RI) were measured. COMPARISON: None. FINDINGS: Abdominal Aorta: Proximal: PSV = 63 cm/s, EDV = 20.2 cm/s, RI = 0.68 Appearance: Tortuous, with plaques noted. Celiac Artery: Origin: PSV = 205 cm/s, EDV = 24.8 cm/s. Suggestive of significant stenosis. Proximal Segment: PSV = 172 cm/s, EDV = 0.6 cm/s Appearance: Plaques and mild tortuosity noted. Superior Mesenteric Artery (SMA): Origin: PSV = 211 cm/s, EDV = 15.0 cm/s Proximal Segment: PSV = 196 cm/s, EDV = 22.1 cm/s Mid-Segment: PSV = 199 cm/s, EDV = 19.1 cm/s Distal Segment: PSV = 93 cm/s, EDV = 3.5 cm/s Mesenteric vessels appear somewhat tortuous, with evidence of plaque deposition affecting flow dynamics. IMPRESSION: 1. Elevated peak systolic velocities in the celiac artery and SMA at the origin and proximal segments, suggestive of hemodynamically significant stenosis. Correlation with CT angiography is advised. 2. Tortuous mesenteric vessels with plaque deposition contributing to altered flow patterns. 3. Distal SMA velocities are within normal limits, suggesting no critical downstream obstruction. Electronically signed by Bipin Vigil 12-06-2024 06:05 AM
[2024-12-06 06:49] LABS: Hematocrit (blood only) 29.8 % (37.0-47.0); Hemoglobin 9.1 g/dl (12.0-16.0); Mean Corpuscular Hemoglobin 26.1 pg (25.0-34.0); Mean Corpuscular Hgb Conc 30.5 g/dL (32.0-36.0); Mean Corpuscular Volume 85.6 fL (80.0-100.0); Mean Platelet Volume 10.9 fL (9.4-12.4); Nucleated RBC # (auto) 0.02 K/uL (0.00-0.12); Nucleated RBC % (auto) 0.3 %; Platelet Count 381 K/uL (130-400); RDW Coefficient of Variation 18.3 % (11.5-14.5); RDW Standard Deviation 57.8 fL (36.4-46.3); Red Blood Count 3.48 M/uL (4.20-5.40); White Blood Count 6.67 K/ul (4.8-10.8)
[2024-12-06 07:09] LABS: Anion Gap 2 (3-11); BUN Creatinine Ratio 27.7 (10-20); Blood Urea Nitrogen 38 mg/dl (6-23); C Reactive Protein < 0.50 mg/dl (0-0.5); Calcium 8.9 mg/dl (8.6-10.3); Carbon Dioxide 35 mmol/L (21-32); Chloride 106 mmol/L (98-107); Creatinine Clr Calc Pharmacy 29.3 ml/min; Glucose 124 mg/dl (70-99(Fasting)); Sodium 143 mmol/L (136-145)
[2024-12-06 07:22] LABS: Thyroid Stimulating Hormone 2.712 uIu/ml (0.300-4.500)
[2024-12-06 07:28] LABS: Ferritin 1482.3 ng/ml (8-388)
[2024-12-06 07:33] LABS: Folate (Folic Acid),Ser orPlas 12.87 ng/ml (>5.38)
[2024-12-06 07:48] LABS: Alanine Aminotransferase 1924 U/L (7-52); Albumin Globulin Ratio 1.3 (0.9-2); Albumin Level 3.3 gm/dl (3.4-5.0); Alkaline Phosphatase 369 U/L (34-104); Aspartate Aminotransferase 1170 U/L (13-39); Bilirubin,Total 0.4 mg/dl (0.2-1.0); Globulin 2.6 gm/dl (2.5-4.0); Iron 43 mcg/dl (35-150); Magnesium 2.1 mg/dl (1.7-2.4); Total Iron Binding Cap Calc 318 mcg/dl (250-450); Total Protein 5.9 gm/dl (6.0-8.3); Transferrin 227 mg/dl (200-360); Transferrin (FE) Percent Satur 14 % (15-50)
[2024-12-06 08:51] LABS: Hep B Surface Ag with confirm Negative (Negative)
[2024-12-06 08:56] LABS: Hep C Ab Rflx HepCQuant RNA Negative (Negative)
--- NOTE | 2024-12-06 10:32 | XRay Report ---
XR chest 1V portable CLINICAL HISTORY: hypoxia COMPARISON STUDY: Chest radiograph November 28, 2024. Chest CT December 02, 2024. FINDINGS: There is no pneumothorax. Small bilateral pleural effusions persist. Underlying emphysema i s present. Cardiomediastinal silhouette is stable. Bibasilar opacities persist with left lower lobe v olume loss. IMPRESSION: 1. Persistent bibasilar opacities with left lower lobe volume loss. The findings could reflect pneumo joão, aspiration pneumonitis or atelectasis. 2. No change in small bilateral pleural effusions. 3. Emphysema. ACT 112: Negative or not required by law. Electronically signed by: Cheng Arevalo M.D. 12/06/2024 10:29 AM
--- NOTE | 2024-12-06 11:30 | Pharmacy Report ---
Pharmacy Glycemic Short Note 2 - Date of Service December 06, 2024 - Glycemic Short BSG Results (Last 24 hours): 12/05/24 12/05/24 12/06/24 16:41 21:17 06:24 Glucose 124 H POC Glucose 170 H 215 H 12/06/24 07:26 Glucose POC Glucose 148 H OUTPATIENT ANTIDIABETIC REGIMEN: * Glargine 20 u BID, lispro 8 u TIDM, metformin 1 gm BID * last A1c was 7.5 recorded on 11/26/24 ASSESSMENT: 12/06 * Patient received total of 50 units of insulin yesterday, of which 25 units were basal insulin * Fasting BSG 124 mg/dL - IV dexamethasone discontinued, will hold AM Lantus and continue with PM scale only as insulin needs likely to be less without steroids 12/03 * 74 yo F w/PMH of CHF, Afib, T2DM presenting w/respiratory failure on 11/25/24. Pharmacy consulted for glycemic management on 12/03/24. * Patients glycemic management has been difficult with a few BSGs in the 300s earlier in the admission and most recently severe hypoglycemia with BSG of 47 yesterday and 39 this morning both requiring treatments. BSG 93 at lunch. Per nursing notes pt has been refusing some of her meals/snacks * With pt's recent hypoglycemia and decreased PO intake will loosen Novolog parameters, increase goal range, and for now, hold pt's Lantus until glucose gets above goal range. PLAN FOR INPATIENT GLYCEMIC CONTROL: * Hold outpatient oral diabetes medications * Basal insulin * Lantus 7-15 units HS * Bolus insulin * NovoLog per scale ACHS or Q6hrs while NPO * Goal Range: Low 120 mg/dL - High 150 mg/dL * Correction Factor: 30 mg/dL/unit * Nutritional / Prandial insulin per carb ratio of 1 unit per 12 grams CHO consumed
--- NOTE | 2024-12-06 12:44 | Hospitalist Progress Note ---
Date of Service December 06, 2024 Assessment & Plan (1) Acute hypercapnic respiratory failure: (2) CHF (congestive heart failure): (3) Afib: (4) Diabetes type 2, uncontrolled: Plan 74-year-old female who presents with obtundation due to hypercarbia from acute on chronic respiratory failure with hypercarbia and hypoxemia. Patient continues to be a current smoker. Patient also tested positive for COVID-19. With collapse of LLL on Chest CT 12/02 from mucus plugging Acute on chronic respiratory failure hypercarbia and hypoxemia/Sepsis POA in setting of COVID-19 and UTI and PNA -with a h/o Copd, requiring 9LNC. Received 10 days of IV dexamethasone and 7 days of ceftriaxone, 1 day of azithro. Ur cx with E. 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 AST/ALT in 1999s, ALK phos in 300s--> all now trending downward, INR 1.2 Liver US with hepatomegaly mild and fatty liver, s/p cholecystectomy, otherwise normal Mesenteric artery doppler with HD sig stenosis of SMA and celiac trunk--> recommend CTA abd-pt declines at this time Follow LFTs CTA abd when pt able to tolerate Start IV morphine for post prandial pain GI ordered hep serology which is pending Anemia- not with clear melena, CT abd/pelvis showing ductal dilatation in pancreas, no mass but may have a small lesion. Gastro consulted: patient does not want any intervention. B12, folate normal; Fe studies anemia of chronic disease, TSH normal Follow CBC DMII--> continue Lantus & sliding scale DVT proph-Eliquis Dispo-continued stay PCU Admission and Anticipated Discharge Date Admission Date: November 25, 2024 Subjective c/o epigastric/upper abd pain that comes on after eating and has been occurring for the last 4 months. She says the pain starts in her back and moves through to her abdomen. She has been taking oxycodone for it at home. Blames it on a cyst on her spine. Discussed mesenteric Doppler results and need for CTA abd-she declines to have it today. Is on 9LNC and in some mild resp distress. Has some cough. I discussed her care with PULM Physical Exam Constitutional: + ill appearing Respiratory: + tachypneic Auscultation: + diminish ed lung sounds (left base), + crackles and + wheezes Cardiovascular: Rate/Rhythm: regular rate and regular rhythm Heart Sounds: no murmur Extremities: no edema Gastrointestinal (Abdomen): Inspection/Auscultation: normal bowel sounds Percussion/Palpation: + abdomen tender (epigastric region without guarding or rebound) and abdomen soft Psychiatric: A+Ox3, euthymic affect Results & Data Results & Data Vital Signs (Past 12 Hours) Vital Signs Temp Pulse Pulse Resp BP BP Pulse Ox 12/06/24 11:25 72 17 92 12/06/24 08:19 66 12/06/24 08:00 12/06/24 07:43 36.6 C 74 19 176/70 H 90 12/06/24 07:11 74 17 100 12/06/24 02:44 67 18 95 12/06/24 02:42 73 22 174/74 H 95 O2 Del Method O2 Flow Rate 12/06/24 11:25 Nasal Cannula 9 12/06/24 08:19 12/06/24 08:00 High Flow Nasal Cannula 9 12/06/24 07:43 High Flow Nasal Cannula 9 12/06/24 07:11 Nasal Cannula 9 12/06/24 02:44 Nasal Cannula 10 12/06/24 02:42 Nasal Cannula 10 Laboratory Results CBC, CMP, Procal, CRP reviewed Diagnostic Findings CXR reviewed PG Care Time/CCT Total # of Minutes Spent Total Time Spent with Patient: Total time spent is greater than 50% in coordination of care (as documented) at patient's floor/unit and/or counseling patient: Coding Level of Care Code 62141 SUB INP/OBS CARE 3/50MIN Diagnoses Acute hypercapnic respiratory failure J96.02 CHF (congestive heart failure) I50.9 Afib I48.91 Diabetes type 2, uncontrolled E11.65 Glycemic state: with hyperglycemia (4) Diabetes type 2, uncontrolled Glycemic state: with hyperglycemia Qualified Code(s): E11.65 - Type 2 diabetes mellitus with hyperglycemia
--- NOTE | 2024-12-06 13:15 | Gastroenterology Progress Note ---
Date of Service December 06, 2024 Assessment & Plan (1) Elevated LFTs: Plan: LFTs have been trending downward since this weekend. Discussed case with Dr. Leonard, and it is possible this is viral induced or medication induced. - check AMA, ASMA, KERI. - await hep panel as already ordered. - continue to trend LFTs. Admission and Anticipated Discharge Date Admission Date: November 25, 2024 Supervising Physician Co-Signing Physician Notes Liver enzyme elevation to this hide typically would not be related to biliary stones or biliary obstruction. Most often it is related to some intrinsic process of the liver. Transaminases in the thousands typically are viral drug or ischemic related. We will send off serologies in that regard. Liver enzymes trending down we will follow-up. Patient's with chronic use of narcotics typically will have some biliary dilatation. 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 Patient is liver enzymes were normal at admission. No plan for ERCP at this time. Subjective over the weekend, she had sudden rise in her LFTs with significant elevations. Since that time, they have been trending down. US 12/05 shown hepatomegally and steatosis. patient has had ongoing complaints of abdominal pain. nursing tells me she has been asking for pain meds even when not due. patient asking for more pain meds today. no nausea, vomiting. Review of Systems Review of Systems: All systems reviewed & are unremarkable except as noted in HPI & below Physical Exam Constitutional: WD/WN, vitals as above Respiratory: normal respiratory effort, lungs clear to auscultation Cardiovascular: Rate/Rhythm: regular rate and regular rhythm Gastrointestinal (Abdomen): diffuse tenderness on exam. patient complaining of pain even prior to palpation. no pain to auscultation. soft. normal bowel sounds. Psychiatric: Orientation: alert and oriented x 3 Results & Data Results & Data Vital Signs (Past 12 Hours) Vital Signs Temp Pulse Pulse Resp BP BP Pulse Ox 12/06/24 12:45 83 22 158/66 H 90 12/06/24 11:25 72 17 92 12/06/24 08:19 66 12/06/24 08:00 12/06/24 07:43 97.9 F 74 19 176/70 H 90 12/06/24 07:11 74 17 100 12/06/24 02:44 67 18 95 12/06/24 02:42 73 22 174/74 H 95 O2 Del Method O2 Flow Rate 12/06/24 12:45 High Flow Nasal Cannula 12/06/24 11:25 Nasal Cannula 9 12/06/24 08:19 12/06/24 08:00 High Flow Nasal Cannula 9 12/06/24 07:43 High Flow Nasal Cannula 9 12/06/24 07:11 Nasal Cannula 9 12/06/24 02:44 Nasal Cannula 10 12/06/24 02:42 Nasal Cannula 10 Coding Level of Care Code 42733 SUB INP/OBS CARE 2/35MIN Diagnoses Elevated LFTs R79.89
[2024-12-06] MEDS: MoRPHine SULFATE 2 MG/ML CARP IV PRN (13:30)
--- NOTE | 2024-12-06 16:16 | Pulmonology Progress Note ---
Date of Service December 06, 2024 Assessment & Plan (1) Hospital-acquired pneumonia: (2) Acute on chronic respiratory failure with hypoxia and hypercapnia: (3) Current smoker: (4) COPD, very severe: (5) COVID: (6) Sepsis: (7) Left lower lobe consolidation: (8) Aspiration pneumonia: Plan Patient with clinical findings and imaging concerning for hospital-acquired pneumonia. Obtain sputum cultures. Patient with left lower lobe atelectasis and right lower lobe infiltrates. Suspect intrapulmonary shunt given atelectasis in the lower lobes bilaterally with dense atelectasis/consolidation of the left lower lobe. Suggest BiPAP as tolerated and with sleep, but unfortunately patient has been refusing. Will consult speech therapy for evaluation of aspiration. Will initiate Zosyn and obtain MRSA screen. Continue formoterol and budesonide. Start IV methylprednisone twice daily for severe pneumonia, hypoxemia and wheezing. Continue pulmonary toileting as patient allows and patient able to tolerate. Unfortunately unable to pursue percussive vest therapy given patient's back pain. Bronchoscopy a poor option at this time given patient's high oxygen requirements and frail state. Maintain euvolemia. BNP slightly elevated today. COVID-pneumonia less likely at this time as radiographic imaging is not consistent with COVID viral pneumonia. Imaging more consistent with aspiration pneumonia. Would recommend palliative care consultation given comorbidities and severity of acute illness. Pulmonary will continue to follow. Thank you for the consult. Please call with questions. Admission and Anticipated Discharge Date Admission Date: November 25, 2024 Subjective Pulmonary was reconsulted due to the patient requiring continued high flow oxygen and chest x-ray findings concerning for left lower lobe atelectasis and right lower lobe aspiration. Per nursing, patient has been refusing PAP therapy and pulmonary toileting. Patient remains on high flow oxygen. Patient states that she is on 4 L of oxygen at baseline. She denies any significant abdominal pain. She does endorse some mild chest pain and back pain. Review of Systems Review of Systems: All systems reviewed & are unremarkable except as noted in HPI & below Physical Exam Physical Exam: Constitutional: Elderly, frail disheveled appearing female laying in bed. Nasal cannula in place. Eyes: Pupils are equal round and reactive to light. Conjunctivae are normal. Anicteric sclera. Ears nose, mouth and throat: Mallampati class 2. Normal posterior oropharynx. Uvula is midline. Neck: Trachea is midline. Visual inspection is normal. Respiratory: Mild expiratory wheezes. Mild tachypnea. Cardiovascular: Regular rate and rhythm. No murmurs. No edema. Gastrointestinal: Normal bowel sounds, soft, nontender and nondistended. No hepatosplenomegaly noted. Musculoskeletal: No cyanosis. Patient is able to move all extremities. Strength is 5 out of 5 in the upper and lower extremities. Skin: No rashes, warm dry and intact. Neurologic: No obvious focal neurological deficits seen. Psychiatric: Alert and oriented x3 with a euthymic affect. Results & Data Results & Data Vital Signs (Past 12 Hours) Vital Signs Temp Pulse Pulse Resp BP BP Pulse Ox 12/06/24 15:32 36.6 C 77 30 H 158/74 H 88 L 12/06/24 12:45 83 22 158/66 H 90 12/06/24 11:25 72 17 92 12/06/24 08:19 66 12/06/24 08:00 12/06/24 08:00 12/06/24 07:43 36.6 C 74 19 176/70 H 90 12/06/24 07:11 74 17 100 Pulse Ox O2 Del Method O2 Del Method O2 Flow Rate O2 Flow Rate 12/06/24 15:32 High Flow Nasal Cannula 10 12/06/24 12:45 High Flow Nasal Cannula 12/06/24 11:25 Nasal Cannula 9 12/06/24 08:19 12/06/24 08:00 88 L High Flow Nasal Cannula 9 12/06/24 08:00 High Flow Nasal Cannula 9 12/06/24 07:43 High Flow Nasal Cannula 9 12/06/24 07:11 Nasal Cannula 9 PG Care Time/CCT Total # of Minutes Spent Total Time Spent with Patient: Total time spent is greater than 50% in coordination of care (as documented) at patient's floor/unit and/or counseling patient: Coding Level of Care Code 70209 SUB INP/OBS CARE 3/50MIN Diagnoses Hospital-acquired pneumonia J18.9; Y95 Acute on chronic respiratory failure with hypoxia and hypercapnia J96.21; J96.22 Current smoker F17.200 COPD, very severe J44.9 COVID U07.1 Sepsis A41.9 Left lower lobe consolidation J18.1 Aspiration pneumonia J69.0
[2024-12-06] MEDS: 4.5GM X1 IV ONE (17:12)
[2024-12-06] MEDS ORDERED: methylPREDNISolone 125 MG/2 ML VIAL IV SCH (21:00)
[2024-12-06] MEDS: methylPREDNISolone 40 MG in SYRINGE 0 ML IV SCH (21:48)
[2024-12-06] MEDS: APIXABAN 5 MG TABLET PO SCH (21:54)
[2024-12-06] MEDS: PIPERACILLIN/TAZOBACTAM 4.5 GM/100 ML BAG IV SCH (23:08)
[2024-12-07 07:52] LABS: Hematocrit (blood only) 27.4 % (37.0-47.0); Hemoglobin 8.4 g/dl (12.0-16.0); Mean Corpuscular Hemoglobin 25.9 pg (25.0-34.0); Mean Corpuscular Hgb Conc 30.7 g/dL (32.0-36.0); Mean Corpuscular Volume 84.6 fL (80.0-100.0); Mean Platelet Volume 11.2 fL (9.4-12.4); Platelet Count 350 K/uL (130-400); RDW Coefficient of Variation 18.4 % (11.5-14.5); RDW Standard Deviation 56.8 fL (36.4-46.3); Red Blood Count 3.24 M/uL (4.20-5.40); White Blood Count 7.07 K/ul (4.8-10.8)
[2024-12-07 08:06] LABS: BUN Creatinine Ratio 30.8 (10-20); Calcium 8.8 mg/dl (8.6-10.3); Creatinine Clr Calc Pharmacy 34.4 ml/min; Potassium 5.6 mmol/L (3.5-5.1)
[2024-12-07 08:23] LABS: Albumin Globulin Ratio 1.3 (0.9-2); Albumin Level 3.2 gm/dl (3.4-5.0); Bilirubin Direct 0.1 mg/dl (0-0.2); Bilirubin,Total 0.4 mg/dl (0.2-1.0); Globulin 2.5 gm/dl (2.5-4.0); Magnesium 1.9 mg/dl (1.7-2.4); Total Protein 5.7 gm/dl (6.0-8.3)
[2024-12-07 08:25] LABS: INR 1.1 (0.9-1.1)
[2024-12-07 08:25] LABS: Basophils # (auto) 0.01 K/uL (0.00-0.20); Basophils % (auto) 0.1 %; Immature Granulocytes # (auto) 0.19 K/uL (0.01-0.20); Immature Granulocytes % (auto) 2.7 %; Lymphocytes # (auto) 0.32 K/uL (1.20-3.40); Lymphocytes % (auto) 4.5 %; Monocytes # (auto) 0.11 K/uL (0.11-0.59); Monocytes % (auto) 1.6 %; Neutrophils # (auto) 6.44 K/uL (1.40-6.50); Neutrophils % (auto) 91.1 %; Tear Drop Cells 1+
[2024-12-07] MEDS: METOPROLOL TARTRATE 50 MG TAB PO SCH (09:58)
[2024-12-07] MEDS: LANTUS PER UNIT CHARGE SC SCH (10:09)
--- NOTE | 2024-12-07 11:01 | Gastroenterology Progress Note ---
Date of Service December 07, 2024 Assessment & Plan (1) Elevated LFTs: Plan LFTs are trending down. no pain in stomach when I saw her this morning, though she is still asking for pain medication. - continue to trend LFTs. - would recommend vascular work up given that mesenteric US is concerning for stenosis. Admission and Anticipated Discharge Date Admission Date: November 25, 2024 Supervising Physician Co-Signing Physician Notes Reviewed PA notes and agree. Patient's Tylenol levels were not detectable when checked. Hepatitis serologies AMB appear negative. As per etiology of this enzyme type elevation drug ischemia or viral hepatitis typical etiologies. 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 This would be a risk for ischemic hepatitis in this patient a CTA is ordered and pending. Patient does not have symptoms of acute intestinal ischemia at present. Chronic intestinal ischemia is not excluded. Subjective Patient tells me that she has no pain in her abdomen currently. LFTs are continuing to trend downward. chronic liver labs and hep panel pending. tolerating breakfast. no nausea, vomiting, reflux. patient denies any tylenol use. no other GI concerns per nursing or patient. mesenteric US 12/06/24 Elevated peak systolic velocities in the celiac artery and SMA at the origin and proximal segments, suggestive of hemodynamically significant stenosis. Review of Systems Review of Systems: All systems reviewed & are unremarkable except as noted in HPI & below Physical Exam Constitutional: WD/WN, vitals as above Respiratory: normal respiratory effort, lungs clear to auscultation Cardiovascular: Rate/Rhythm: regular rate and regular rhythm Gastrointestinal (Abdomen): normal bowel sounds, soft, nontender, no hepatosplenomegaly Psychiatric: Orientation: alert and oriented x 3 Results & Data Results & Data Vital Signs (Past 12 Hours) Vital Signs Temp Pulse Pulse Resp BP BP Pulse Ox 12/07/24 10:51 71 20 97 12/07/24 10:33 69 12/07/24 07:53 97.9 F 79 18 172/73 H 12/07/24 06:58 77 18 97 12/07/24 03:17 65 172/74 H 12/07/24 03:06 97.7 F 71 18 181/74 H 94 12/06/24 23:04 72 18 100 O2 Del Method O2 Flow Rate 12/07/24 10:51 Nasal Cannula 9 12/07/24 10:33 12/07/24 07:53 12/07/24 06:58 Nasal Cannula 7 12/07/24 03:17 12/07/24 03:06 Nasal Cannula 6 12/06/24 23:04 Nasal Cannula 9 Coding Level of Care Code 09197 SUB INP/OBS CARE 12/18MIN Diagnoses Elevated LFTs R79.89
[2024-12-07] MEDS: SODIUM ZIRCONIUM CYCLOSILICATE 10 GM PACKET PO SCH (11:10)
--- NOTE | 2024-12-07 12:08 | Pharmacy Report ---
Pharmacy Glycemic Short Note 2 - Date of Service December 07, 2024 - Glycemic Short BSG Results (Last 24 hours): 12/06/24 12/06/24 12/07/24 16:47 20:37 06:56 Glucose 239 H POC Glucose 157 H 201 H 12/07/24 12/07/24 07:49 11:17 Glucose POC Glucose 258 H 284 H OUTPATIENT ANTIDIABETIC REGIMEN: * Glargine 20 units SC BID * Lispro 8 units SC TIDM * Metformin 1 g PO BID * HbA1c: 7.5% (11/26/24) ASSESSMENT: 12/07: * Daniella received 22 units of insulin yesterday, 15 of which were basal. BSGs were: [id number] mg/dL. * Fasting BSG this AM is well above goal at 258 mg/dL. Unfortunately, patient w as started on an increased dose of steroids last night, SoluMedrol 40 mg IV BID, after the basal insulin had been reduced. This is likely the reasoning for hyperglycemia today. * Will increase basal significantly (max of doubled dose from yesterday). Also tightening Novolog parameters to reflect weight/stress of 3. * Continues to tolerate T2DM diet. Started on Zosyn last evening as well. 12/06: * Patient received total of 50 units of insulin yesterday, of which 25 units were basal insulin * Fasting BSG 124 mg/dL - IV dexamethasone discontinued, will hold AM Lantus and continue with PM scale only as insulin needs likely to be less without steroids 12/03: * 74 yo F w/PMH of CHF, Afib, T2DM presenting w/respiratory failure on 11/25/24. Pharmacy consulted for glycemic management on 12/03/24. * Patients glycemic management has been difficult with a few BSGs in the 300s earlier in the admission and most recently severe hypoglycemia with BSG of 47 yesterday and 39 this morning both requiring treatments. BSG 93 at lunch. Per nursing notes pt has been refusing some of her meals/snacks * With pt's recent hypoglycemia and decreased PO intake will loosen Novolog parameters, increase goal range, and for now, hold pt's Lantus until glucose gets above goal range. PLAN FOR INPATIENT GLYCEMIC CONTROL: * Hold outpatient oral diabetes medications * Basal insulin * Lantus 7-15 units SC BID (see eMAR for more details) * Bolus insulin * NovoLog per scale ACHS or Q6hrs while NPO * Goal Range: Low 120 mg/dL - High 150 mg/dL * Correction Factor: 20 mg/dL/unit * Nutritional / Prandial insulin per carb ratio of 1 unit per 7 grams CHO consumed
[2024-12-07 13:46] LABS: Hepatitis A Antibody IgM NON-REACTIVE (NON-REACTIVE); Hepatitis B Core Antibody IgM NON-REACTIVE (NON-REACTIVE)
[2024-12-07 15:21] LABS: Calcium 8.9 mg/dl (8.6-10.3); Creatinine Clr Calc Pharmacy 30.9 ml/min; Potassium 5.3 mmol/L (3.5-5.1)
--- NOTE | 2024-12-07 16:55 | Pulmonology Progress Note ---
Date of Service December 07, 2024 Assessment & Plan (1) Hospital-acquired pneumonia: (2) Acute on chronic respiratory failure with hypoxia and hypercapnia: (3) Current smoker: (4) COPD, very severe: (5) COVID: (6) Sepsis: (7) Left lower lobe consolidation: (8) Aspiration pneumonia: Plan Patient with clinical findings and imaging concerning for hospital-acquired pneumonia. Unfortunately, sputum cultures have not been obtained. Patient with left lower lobe atelectasis and right lower lobe infiltrates. Suspect intrapulmonary shunt given atelectasis in the lower lobes bilaterally with dense atelectasis/consolidation of the left lower lobe. Suggest BiPAP as tolerated and with sleep, but unfortunately patient has been refusing. No overt aspiration seen by speech therapy at bedside. Will likely proceed with radiographic swallow study on per speech therapy. Continue Zosyn. MRSA screen negative. Continue formoterol and budesonide. Continue IV methylprednisone twice daily for severe pneumonia, hypoxemia and wheezing. Continue pulmonary toileting as patient allows and patient able to tolerate. Unfortunately unable to pursue percussive vest therapy given patient's back pain. Bronchoscopy a poor option at this time given patient's high oxygen requirements and frail state. Maintain euvolemia. COVID-pneumonia less likely at this time as radiographic imaging is not consistent with COVID viral pneumonia. Imaging more consistent with aspiration pneumonia. I do not think the patient needs isolation precautions at this time, but will defer to infectious control policy. Would recommend palliative care consultation given comorbidities and severity of acute illness. Pulmonary will continue to follow. Thank you for the consult. Please call with questions. Admission and Anticipated Discharge Date Admission Date: November 25, 2024 Subjective No acute events overnight. Oxygen requirements down to 5 L with saturations of about 90 to 91%. Patient complains of ongoing epigastric discomfort and back discomfort. Review of Systems Review of Systems: All systems reviewed & are unremarkable except as noted in HPI & below Physical Exam Physical Exam: Constitutional: Elderly, frail disheveled appearing female laying in bed. Nasal cannula in place. Eyes: Pupils are equal round and reactive to light. Conjunctivae are normal. Anicteric sclera. Ears nose, mouth and throat: Mallampati class 2. Normal posterior oropharynx. Uvula is midline. Neck: Trachea is midline. Visual inspection is normal. Respiratory: No significant respiratory distress. Mild diminishment at the bases bilaterally with mild expiratory wheeze. Cardiovascular: Regular rate and rhythm. No murmurs. No edema. Gastrointestinal: Normal bowel sounds, soft, nontender and nondistended. No hepatosplenomegaly noted. Musculoskeletal: No cyanosis. Patient is able to move all extremities. Strength is 5 out of 5 in the upper and lower extremities. Skin: No rashes, warm dry and intact. Neurologic: No obvious focal neurological deficits seen. Psychiatric: Alert and oriented x3 with a euthymic affect. Results & Data Results & Data Vital Signs (Past 12 Hours) Vital Signs Temp Pulse Pulse Resp BP BP Pulse Ox 12/07/24 15:57 36.6 C 76 18 128/73 90 12/07/24 15:14 70 22 89 L 12/07/24 12:33 36.8 C 70 17 160/72 H 90 12/07/24 10:51 71 20 97 12/07/24 10:33 69 12/07/24 07:53 36.6 C 79 18 172/73 H 12/07/24 06:58 77 18 97 O2 Del Method O2 Flow Rate 12/07/24 15:57 Nasal Cannula 5 12/07/24 15:14 Nasal Cannula 6 12/07/24 12:33 Nasal Cannula 5 12/07/24 10:51 Nasal Cannula 9 12/07/24 10:33 12/07/24 07:53 12/07/24 06:58 Nasal Cannula 7 PG Care Time/CCT Total # of Minutes Spent Total Time Spent with Patient: Total time spent is greater than 50% in coordination of care (as documented) at patient's floor/unit and/or counseling patient: Coding Level of Care Code 56658 SUB INP/OBS CARE 2/35MIN Diagnoses Hospital-acquired pneumonia J18.9; Y95 Acute on chronic respiratory failure with hypoxia and hypercapnia J96.21; J96.22 Current smoker F17.200 COPD, very severe J44.9 COVID U07.1 Sepsis A41.9 Left lower lobe consolidation J18.1 Aspiration pneumonia J69.0
--- NOTE | 2024-12-07 18:37 | Hospitalist Progress Note ---
Date of Service December 07, 2024 Assessment & Plan (1) Acute hypercapnic respiratory failure: (2) CHF (congestive heart failure): (3) Afib: (4) Diabetes type 2, uncontrolled: Plan 74-year-old female who presents with obtundation due acute on chronic respiratory failure with hypercarbia and hypoxemia. Patient continues to be a current smoker. Patient also tested positive for COVID-19. With collapse of LLL on Chest CT 12/02 from mucus plugging Acute on chronic respiratory failure hypercarbia and hypoxemia/Sepsis POA in setting of COVID-19 and UTI and PNA -with a h/o Copd, requiring 9LNC at one point and tachypneic, now weaned down to 5LNC, much improved with starting Zosyn and IV SOlu Medrol 12/06. Initially received 10 days of IV dexamethasone and 7 days of ceftriaxone, 1 day of azithro. Ur cx with E. coli Consult PULM again 12/06--> suspects severe aspiration PNA, started Zosyn and Solu Medrol Continue hypertonic saline, nebs, flutter valve, ICS Continue to wean off O2 as able to keep POx>88% Speech tx consult apprecaited-not stable for VFSS yet but planned for later this week No sputum cxs to follow Paroxysmal Afib/HTN/HFpEF -with last Echo 11/15 Remains in NSR here, BPs controlled, was given IV lasix and some IVFs at various points this hospital stay Continue metoprolol tartrate 25mg po bid, Eliquis 5mg bid Continue to hold losartan for mild TATY which is now improving Continue tele monitoring Shock liver/Epigastric abd pain-2/2 hypotension on admission which is now resolved. 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 Both held and now with improvement to 1.3 continue to hold ACEi, follow BMP in AM K+ 5.6 2/2 TATY--> hold ACEi, gave lokelma, change to low K+ diet. Repeat BMP improved to K+ 5.3 follow BMP Anemia- Hgb 8.4,stable, not with clear melena, CT abd/pelvis showing ductal dilatation in pancreas, no mass but may have a small lesion. Gastro consulted: patient does not want any intervention. B12, folate normal; Fe studies anemia of chronic disease, TSH normal Follow CBC DMII--> continue Lantus & sliding scale DVT proph-Eliquis Dispo-continued stay PCU, ordered PT/OT evals Admission and Anticipated Discharge Date Admission Date: November 25, 2024 Subjective Pt feeling much better today and asks when she can go home, Is currently weaned down to 5LNC. Says abd pain is much better but then asks for a pain pill before i leave the room. Tele with NSR rates 60-70s Physical Exam Constitutional: no acute distress Eyes: + anicteric sclerae Respiratory: Auscultation: + diminished lung sounds (left base), + crackles and + wheezes overall much improved today, not tachypneic at rest Cardiovascular: Rate/Rhythm: regular rate and regular rhythm Heart Sounds: no murmur Extremities: no edema Gastrointestinal (Abdomen): Inspection/Auscultation: normal bowel sounds Percussion/Palpation: abdomen soft; abdomen nontender Psychiatric: A+Ox3, euthymic affect Results & Data Results & Data Vital Signs (Past 12 Hours) Vital Signs Temp Pulse Pulse Resp BP BP Pulse Ox 12/07/24 15:57 36.6 C 76 18 128/73 90 12/07/24 15:14 70 22 89 L 12/07/24 12:33 36.8 C 70 17 160/72 H 90 12/07/24 10:51 71 20 97 12/07/24 10:33 69 12/07/24 07:53 36.6 C 79 18 172/73 H 12/07/24 06:58 77 18 97 O2 Del Method O2 Flow Rate 12/07/24 15:57 Nasal Cannula 5 12/07/24 15:14 Nasal Cannula 6 12/07/24 12:33 Nasal Cannula 5 12/07/24 10:51 Nasal Cannula 9 12/07/24 10:33 12/07/24 07:53 12/07/24 06:58 Nasal Cannula 7 Laboratory Results CBC, CMP, repeat BMP reviewed PG Care Time/CCT Total # of Minutes Spent Total Time Spent with Patient: Total time spent is greater than 50% in coordination of care (as documented) at patient's floor/unit and/or counseling patient: Coding Level of Care Code 01481 SUB INP/OBS CARE 3/50MIN Diagnoses Acute hypercapnic respiratory failure J96.02 CHF (congestive heart failure) I50.9 Afib I48.91 Diabetes type 2, uncontrolled E11.65 Glycemic state: with hyperglycemia (4) Diabetes type 2, uncontrolled Glycemic state: with hyperglycemia Qualified Code(s): E11.65 - Type 2 diabetes mellitus with hyperglycemia
[2024-12-08 07:54] LABS: Hematocrit (blood only) 26.9 % (37.0-47.0); Hemoglobin 8.2 g/dl (12.0-16.0); Mean Corpuscular Hemoglobin 25.5 pg (25.0-34.0); Mean Corpuscular Hgb Conc 30.5 g/dL (32.0-36.0); Mean Corpuscular Volume 83.8 fL (80.0-100.0); Mean Platelet Volume 10.8 fL (9.4-12.4); Nucleated RBC # (auto) 0.02 K/uL (0.00-0.12); Nucleated RBC % (auto) 0.2 %; Platelet Count 331 K/uL (130-400); RDW Coefficient of Variation 18.2 % (11.5-14.5); RDW Standard Deviation 55.7 fL (36.4-46.3); Red Blood Count 3.21 M/uL (4.20-5.40); White Blood Count 11.18 K/ul (4.8-10.8)
[2024-12-08 08:05] LABS: BUN Creatinine Ratio 33.1 (10-20); Creatinine Clr Calc Pharmacy 31.7 ml/min; Potassium 5.4 mmol/L (3.5-5.1)
[2024-12-08 08:22] LABS: Albumin Level 3.2 gm/dl (3.4-5.0); Bilirubin Direct 0.1 mg/dl (0-0.2); Bilirubin,Total 0.3 mg/dl (0.2-1.0); Total Protein 5.8 gm/dl (6.0-8.3)
[2024-12-08 08:33] LABS: Basophils # (auto) 0.01 K/uL (0.00-0.20); Basophils % (auto) 0.1 %; Immature Granulocytes # (auto) 0.15 K/uL (0.01-0.20); Immature Granulocytes % (auto) 1.3 %; Lymphocytes # (auto) 0.57 K/uL (1.20-3.40); Lymphocytes % (auto) 5.1 %; Monocytes # (auto) 0.38 K/uL (0.11-0.59); Monocytes % (auto) 3.4 %; Neutrophils # (auto) 10.07 K/uL (1.40-6.50); Neutrophils % (auto) 90.1 %
--- NOTE | 2024-12-08 10:04 | Gastroenterology Progress Note ---
Date of Service December 08, 2024 Assessment & Plan (1) Abdominal pain: (2) Elevated LFTs: Plan Patient is refusing to have CTA. We discussed that this is to evaluate her vasculature as there is concern that ischemia lead to her liver injury. we discussed if this is the case and she does not have this looked into further that it could happen again and that this could potentially increase mortality. She voiced understanding and tells me that she does not want further testing. At this time, LFTs have been continuing to trend down. Admission and Anticipated Discharge Date Admission Date: November 25, 2024 Supervising Physician Co-Signing Physician Notes Liver tests improving. Consistent with ischemic hepatitis. Patient is refusing CT a to evaluate patency of celiac and SMA arteries. And related to other concern for intestinal ischemia. Patient continues to refuse. Subjective Patient had refused to have the CTA done yesterday. complains of continued pain and asking for pain medications. eating breakfast and tolerating this well. does not appear in discomfort while eating. she tells me she does not want further testing done. LFTs continue to trend down. 12/08/24 AST 91, ALT 759, ALK 232, t bili 0.3. Review of Systems Review of Systems: All systems reviewed & are unremarkable except as noted in HPI & below Physical Exam Constitutional: WD/WN, vitals as above Respiratory: normal respiratory effort, lungs clear to auscultation Cardiovascular: Rate/Rhythm: regular rate and regular rhythm Gastrointestinal (Abdomen): abdominal tenderness to palpation. no guarding. soft. normal bowel sounds. Psychiatric: Orientation: alert and oriented x 3 Results & Data Results & Data Vital Signs (Past 12 Hours) Vital Signs Temp Pulse Pulse Resp BP BP Pulse Ox 12/08/24 07:37 97.9 F 84 20 176/69 H 89 L 12/08/24 07:00 83 20 91 12/08/24 03:31 97.7 F 82 24 145/77 H 88 L 12/08/24 02:24 67 18 94 12/07/24 22:45 97.8 F 78 21 161/77 H 96 12/07/24 22:29 66 18 95 12/07/24 22:00 65 12/07/24 22:00 98.1 F 69 22 177/75 H 96 O2 Del Method O2 Flow Rate 12/08/24 07:37 Nasal Cannula 6 12/08/24 07:00 Nasal Cannula 6 12/08/24 03:31 Nasal Cannula 5 12/08/24 02:24 Nasal Cannula 6 12/07/24 22:45 Room Air 12/07/24 22:29 Nasal Cannula 7 12/07/24 22:00 12/07/24 22:00 High Flow Nasal Cannula, Nebulizer 7 Coding Level of Care Code 44019 SUB INP/OBS CARE 12/18MIN Diagnoses Abdominal pain R10.9 Elevated LFTs R79.89
[2024-12-08] MEDS: LANTUS PER UNIT CHARGE SC SCH ×2 (10:05→20:25)
--- NOTE | 2024-12-08 11:42 | Hospitalist Progress Note ---
Date of Service December 08, 2024 Assessment & Plan (1) Acute hypercapnic respiratory failure: (2) CHF (congestive heart failure): (3) Afib: (4) Diabetes type 2, uncontrolled: Plan 74-year-old female who presents with obtundation due acute on chronic respiratory failure with hypercarbia and hypoxemia. Patient continues to be a current smoker. Patient also tested positive for COVID-19. With collapse of LLL on Chest CT 12/02 from mucus plugging Acute on chronic respiratory failure hypercarbia and hypoxemia/Sepsis POA in setting of COVID-19 and UTI and PNA -with a h/o Copd, requiring 9LNC at one point and tachypneic, now weaned down but slightly worse than previous at 6LNC, much improved overall with starting Zosyn and IV SOlu Medrol 12/06. Initially received 10 days of IV dexamethasone and 7 days of ceftriaxone, 1 day of azithro. Flutter valve is ordered but not at bedside-will reorder and encouraged use of this and incentive spirometry Ur cx with E. coli Consult PULM again 12/06--> suspects severe aspiration PNA, started Zosyn and Solu Medrol Continue hypertonic saline, bronchodilator and inhaled corticosteroid nebs, ensure she has a flutter valve, ICS Continue to wean off O2 as able to keep POx>88% Speech tx consult appreciated- VFSS normal-do not suspect aspiration pneumonia No sputum cxs to follow-she is now coughing up large amounts of sputum-ordered sputum culture Follow chest x-ray periodically Paroxysmal Afib/HTN/HFpEF -with last Echo 11/15 Remains in NSR here, BPs controlled to elevated at times, was given IV lasix and some IVFs at various points this hospital stay Continue metoprolol tartrate 25mg po bid, Eliquis 5mg bid Continue to hold losartan for mild TATY which is now improved Continue tele monitoring Shock liver/Epigastric abd pain-2/2 hypotension on admission which is now resolved. 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--> recommend CTA abd-patient continues to decline this again and the order was canceled Doubt the abdominal pain is related to the shock liver but could be however she reports this abdominal pains been ongoing for many months Follow LFTs in AM Continue IV morphine, will increase dose of po oxycodone to 10 mg for post prandial pain in an effort to wean off IV pain medicine GI ordered hep serology-hepatitis ABC negative, KERI, AMA, IgG actin pending With constipation-ensure she is moving bowels-continue MiraLAX twice daily, add senna/docusate TATY/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 Both held and now with improvement to 1.27, potassium still mildly elevated at 5.4 continue to hold ACEi, follow BMP in AM Continue lokelma, low K+ diet Increasing insulin doses for hyperglycemia will improve potassium Consider Lasix use follow BMP Anemia- Hgb 8.2 and remains stable, no overt GI bleeding, CT abd/pelvis showing ductal dilatation in pancreas, no mass but may have a small lesion. Gastro consulted: patient does not want any intervention. B12, folate normal; Fe studies anemia of chronic disease, TSH normal Follow CBC DMII--> continue Lantus & sliding scale and increase doses-pharmacy managing for hyperglycemia while on steroids GERD-continue PPI DVT proph-Eliquis Dispo-continued stay PCU, ordered PT/OT evals-pending Admission and Anticipated Discharge Date Admission Date: November 25, 2024 Subjective Feeling overall better with her breathing, coughing up large amounts of sputum but sputum culture not yet collected. Still complaining of frequent abdominal pain and requesting pain medicine [id number]. Continues to decline to have CT angiogram of the abdomen performed despite discussion of wanting to find the cause of her abdominal pain and possible intervention. She is eating and drinking, and she declined to work with physical and Occupational Therapy today Telemetry with normal sinus rhythm, PACs, rates in the 70s to 80s Physical Exam Constitutional: + ill appearing; no acute distress Eyes: + anicteric sclerae Respiratory: not tachypneic Auscultation: + diminished lung sounds (left base), + crackles and + wheezes Cardiovascular: Rate/Rhythm: regular rate and regular rhythm Heart Sounds: no murmur Extremities: no edema Gastrointestinal (Abdomen): Inspection/Auscultation: normal bowel sounds Percussion/Palpation: abdomen soft; abdomen nontender Psychiatric: A+Ox3, euthymic affect Results & Data Results & Data Vital Signs (Past 12 Hours) Vital Signs Temp Pulse Pulse Resp BP Pulse Ox O2 Del Method 12/08/24 11:25 78 12/08/24 11:18 67 18 91 Nasal Cannula 12/08/24 11:03 36.8 C 70 18 177/71 H 90 Nasal Cannula 12/08/24 07:37 36.6 C 84 20 176/69 H 89 L Nasal Cannula 12/08/24 07:00 83 20 91 Nasal Cannula 12/08/24 03:31 36.5 C 82 24 145/77 H 88 L Nasal Cannula 12/08/24 02:24 67 18 94 Nasal Cannula O2 Flow Rate 12/08/24 11:25 12/08/24 11:18 7 12/08/24 11:03 6 12/08/24 07:37 6 12/08/24 07:00 6 12/08/24 03:31 5 12/08/24 02:24 6 Laboratory Results CBC, CMP, magnesium, hepatitis A, B, and C reviewed PG Care Time/CCT Total # of Minutes Spent Total Time Spent with Patient: Total time spent is greater than 50% in coordination of care (as documented) at patient's floor/unit and/or counseling patient: Coding Level of Care Code 71878 SUB INP/OBS CARE 3/50MIN Diagnoses Acute hypercapnic respiratory failure J96.02 CHF (congestive heart failure) I50.9 Afib I48.91 Diabetes type 2, uncontrolled E11.65 Glycemic state: with hyperglycemia (4) Diabetes type 2, uncontrolled Glycemic state: with hyperglycemia Qualified Code(s): E11.65 - Type 2 diabetes mellitus with hyperglycemia
[2024-12-08] MEDS: DOCUSATE SODIUM/SENNA 50/8.6MG TAB PO SCH (12:14)
[2024-12-08] MEDS: oxyCODONE HCL IR 5 MG TAB (IMMEDIATE RELEASE) PO PRN (12:14)
--- NOTE | 2024-12-08 14:03 | Pharmacy Report ---
Pharmacy Glycemic Short Note 2 - Date of Service December 08, 2024 - Glycemic Short BSG Results (Last 24 hours): 12/07/24 12/07/24 12/07/24 14:48 16:35 20:57 Glucose 104 H POC Glucose 139 H 265 H 12/08/24 12/08/24 12/08/24 07:02 07:31 11:23 Glucose 251 H POC Glucose 292 H 357 H* OUTPATIENT ANTIDIABETIC REGIMEN: * Glargine 20 units SC BID * Lispro 8 units SC TIDM * Metformin 1 g PO BID * HbA1c: 7.5% (11/26/24) ASSESSMENT: 12/08: * Received 55 units of insulin yesterday, 30 of which were basal. BSGs were: [phone] mg/dL. * Fasting BSG increased further to 292 mg/dL this AM. Despite doubling dose of basal yesterday, will still increase basal today. Giving 30 units this AM with a small scale at HS to provide equivalent of home dose or slightly stress home dose. * Tightened correction factor and carb ratio this AM to help with steroid- induced postprandial hyperglycemia. Of note, patient received AM Novolog dose in close proximity to lunchtime BSG reading so believe this reading is falsely elevated. Will not make any further adjustments in light of this. 12/07: * Daniella received 22 units of insulin yesterday, 15 of which were basal. BSGs were: [phone] mg/dL. * Fasting BSG this AM is well above goal at 258 mg/dL. Unfortunately, patient was started on an increased dose of steroids last night, SoluMedrol 40 mg IV BID, after the basal insulin had been reduced. This is likely the reasoning for hyperglycemia today. * Will increase basal significantly (max of doubled dose from yesterday). Also tightening Novolog parameters to reflect weight/stress of 3. * Continues to tolerate T2DM diet. Started on Zosyn last evening as well. 12/06: * Patient received total of 50 units of insulin yesterday, of which 25 units were basal insulin * Fasting BSG 124 mg/dL - IV dexamethasone discontinued, will hold AM Lantus and continue with PM scale only as insulin needs likely to be less without steroids 12/03: * 74 yo F w/PMH of CHF, Afib, T2DM presenting w/respiratory failure on 11/25/24. Pharmacy consulted for glycemic management on 12/03/24. * Patients glycemic management has been difficult with a few BSGs in the 300s earlier in the admission and most recently severe hypoglycemia with BSG of 47 yesterday and 39 this morning both requiring treatments. BSG 93 at lunch. Per nursing notes pt has been refusing some of her meals/snacks * With pt's recent hypoglycemia and decreased PO intake will loosen Novolog parameters, increase goal range, and for now, hold pt's Lantus until glucose gets above goal range. PLAN FOR INPATIENT GLYCEMIC CONTROL: * Hold outpatient oral diabetes medications * Basal insulin * Lantus 30 units SC AM * Lantus 5-15 units SC HS (see eMAR for more details) * Bolus insulin * NovoLog per scale ACHS or Q6hrs while NPO * Goal Range: Low 120 mg/dL - High 150 mg/dL * Correction Factor: 15 mg/dL/unit * Nutritional / Prandial insulin per carb ratio of 1 unit per 5 grams CHO consumed
--- NOTE | 2024-12-08 15:46 | Pulmonology Progress Note ---
Date of Service December 08, 2024 Assessment & Plan (1) Hospital-acquired pneumonia: (2) Acute on chronic respiratory failure with hypoxia and hypercapnia: (3) Current smoker: (4) COPD, very severe: (5) COVID: (6) Sepsis: (7) Left lower lobe consolidation: (8) Aspiration pneumonia: Plan Patient with left lower lobe atelectasis and right lower lobe infiltrates. Suspect intrapulmonary shunt given atelectasis in the lower lobes bilaterally with dense atelectasis/consolidation of the left lower lobe. The patient has refused PAP therapy. Radiographic swallow study tomorrow. Continue Zosyn and can consider transitioning to oral levofloxacin in the next 1 to 2 days depending on clinical picture and QTc. MRSA screen negative. Continue formoterol and budesonide. Continue IV methylprednisone twice daily for severe pneumonia, hypoxemia and wheezing. Consider transitioning to oral prednisone 40 mg starting tomorrow and then taper over the course of 10 days. Continue pulmonary toileting as patient allows and patient able to tolerate. COVID-pneumonia less likely at this time as radiographic imaging is not consistent with COVID viral pneumonia. Imaging more consistent with aspiration pneumonia. Repeat chest x-ray tomorrow. Would recommend palliative care consultation given comorbidities and severity of acute illness. Pulmonary will continue to follow. Thank you for the consult. Please call with questions. Admission and Anticipated Discharge Date Admission Date: November 25, 2024 Subjective Patient continues to improve today with improvement in oxygen requirements and is down to 3 L via nasal cannula. She continues to refuse much of her care in cluding getting out of bed due to chronic pain. Per nursing staff, she has been repeatedly asking for pain medications throughout the day for back and abdominal complaints. Review of Systems Review of Systems: All systems reviewed & are unremarkable except as noted in HPI & below Physical Exam Physical Exam: Constitutional: Elderly, frail disheveled appearing female laying in bed. Nasal cannula in place. Eyes: Pupils are equal round and reactive to light. Conjunctivae are normal. Anicteric sclera. Ears nose, mouth and throat: Mallampati class 2. Normal posterior oropharynx. Uvula is midline. Neck: Trachea is midline. Visual inspection is normal. Respiratory: No significant respiratory distress. Mild diminishment at the bases bilaterally with mild expiratory wheeze. Cardiovascular: Regular rate and rhythm. No murmurs. No edema. Gastrointestinal: Normal bowel sounds, soft, nontender and nondistended. No hepatosplenomegaly noted. Musculoskeletal: No cyanosis. Patient is able to move all extremities. Streng th is 5 out of 5 in the upper and lower extremities. Skin: No rashes, warm dry and intact. Neurologic: No obvious focal neurological deficits seen. Psychiatric: Alert and oriented x3 with a euthymic affect. Results & Data Results & Data Vital Signs (Past 12 Hours) Vital Signs Temp Pulse Pulse Resp BP Pulse Ox O2 Del Method 12/08/24 14:26 67 20 Nasal Cannula 12/08/24 11:25 78 12/08/24 11:18 67 18 91 Nasal Cannula 12/08/24 11:03 36.8 C 70 18 177/71 H 90 Nasal Cannula 12/08/24 07:37 36.6 C 84 20 176/69 H 89 L Nasal Cannula 12/08/24 07:00 83 20 91 Nasal Cannula O2 Flow Rate 12/08/24 14:26 3 12/08/24 11:25 12/08/24 11:18 7 12/08/24 11:03 6 12/08/24 07:37 6 12/08/24 07:00 6 PG Care Time/CCT Total # of Minutes Spent Total Time Spent with Patient: Total time spent is greater than 50% in coordination of care (as documented) at patient's floor/unit and/or counseling patient: Coding Level of Care Code 72580 SUB INP/OBS CARE 2/35MIN Diagnoses Hospital-acquired pneumonia J18.9; Y95 Acute on chronic respiratory failure with hypoxia and hypercapnia J96.21; J96.22 Current smoker F17.200 COPD, very severe J44.9 COVID U07.1 Sepsis A41.9 Left lower lobe consolidation J18.1 Aspiration pneumonia J69.0
[2024-12-09 08:20] LABS: Basophils # (auto) 0.01 K/uL (0.00-0.20); Basophils % (auto) 0.1 %; Hematocrit (blood only) 26.3 % (37.0-47.0); Hemoglobin 7.8 g/dl (12.0-16.0); Immature Granulocytes # (auto) 0.19 K/uL (0.01-0.20); Immature Granulocytes % (auto) 1.4 %; Lymphocytes # (auto) 0.69 K/uL (1.20-3.40); Lymphocytes % (auto) 5.1 %; Mean Corpuscular Hemoglobin 25.2 pg (25.0-34.0); Mean Corpuscular Hgb Conc 29.7 g/dL (32.0-36.0); Mean Corpuscular Volume 84.8 fL (80.0-100.0); Mean Platelet Volume 11.1 fL (9.4-12.4); Monocytes # (auto) 0.47 K/uL (0.11-0.59); Monocytes % (auto) 3.5 %; Neutrophils # (auto) 12.11 K/uL (1.40-6.50); Neutrophils % (auto) 89.9 %; Platelet Count 335 K/uL (130-400); RDW Coefficient of Variation 18.6 % (11.5-14.5); White Blood Count 13.47 K/ul (4.8-10.8)
[2024-12-09 08:29] LABS: Albumin Level 3.1 gm/dl (3.4-5.0); BUN Creatinine Ratio 36.4 (10-20); Bilirubin Direct 0.1 mg/dl (0-0.2); Bilirubin,Total 0.3 mg/dl (0.2-1.0); Calcium 8.8 mg/dl (8.6-10.3); Creatinine Clr Calc Pharmacy 31.2 ml/min; Magnesium 1.9 mg/dl (1.7-2.4); Potassium 5.4 mmol/L (3.5-5.1); Total Protein 5.4 gm/dl (6.0-8.3)
[2024-12-09] MEDS: LANTUS PER UNIT CHARGE SC SCH (08:32)
[2024-12-09 08:54] LABS: Ovalocytes 1+; Polychromasia 1+; Tear Drop Cells 1+
--- NOTE | 2024-12-09 10:07 | XRay Report ---
XR chest 2V PA/lateral CLINICAL HISTORY: pna TECHNIQUE: 2 views of the chest were obtained. Comparison: Comparison is made to chest radiograph 12/06/2024 FINDINGS: No lines and tubes are seen. Calcified aortic knob is seen. Bilateral lower lung predominant airspace opacities are seen. Small bilateral pleural effusions are seen. IMPRESSION: Small bilateral pleural effusions. Bibasilar airspace opacities likely represent atelectasis, superim posed pneumonia/aspiration cannot be excluded. ACT 112: Negative or not required by law. Electronically signed by: Tushar Souza M.D. 12/09/2024 10:06 AM
[2024-12-09] MEDS: FUROSEMIDE 20 MG TAB PO SCH (11:36)
--- NOTE | 2024-12-09 14:06 | Pharmacy Report ---
Pharmacy Glycemic Short Note 2 - Date of Service December 09, 2024 - Glycemic Short BSG Results (Last 24 hours): 12/08/24 12/08/24 12/09/24 16:24 20:16 07:10 Glucose 199 H POC Glucose 105 H 287 H 12/09/24 12/09/24 07:15 11:17 Glucose POC Glucose 213 H 240 H OUTPATIENT ANTIDIABETIC REGIMEN: * Glargine 20 units SC BID * Lispro 8 units SC TIDM * Metformin 1 g PO BID * HbA1c: 7.5% (11/26/24) ASSESSMENT: 12/09: * Daniella recieved 87 units of insulin yesterday (45 were basal) * Fasting BSG this AM above goal range, will give all of yesterday's basal dose this AM and allow for additional to be given this evening if BSGs remain elevated. * Correction factor loosened due to large BSG decrease from lunch to dinner yesterday, and carbohydrate ratio tightened due to elevated postprandials * She continues on IV Zosyn and IV Solumedrol 40mg BID, expect insulin requirements to decrease significantly once steroids weaned 12/08: * Received 55 units of insulin yesterday, 30 of which were basal. BSGs were: [phone] mg/dL. * Fasting BSG increased further to 292 mg/dL this AM. Despite doubling dose of basal yesterday, will still increase basal today. Giving 30 units this AM with a small scale at HS to provide equivalent of home dose or slightly stress home dose. * Tightened correction factor and carb ratio this AM to help with steroid- induced postprandial hyperglycemia. Of note, patient received AM Novolog dose in close proximity to lunchtime BSG reading so believe this reading is falsely elevated. Will not make any further adjustments in light of this. 12/07: * Daniella received 22 units of insulin yesterday, 15 of which were basal. BSGs were: [phone] mg/dL. * Fasting BSG this AM is well above goal at 258 mg/dL. Unfortunately, patient was started on an increased dose of steroids last night, SoluMedrol 40 mg IV BID, after the basal insulin had been reduced. This is likely the reasoning for hyperglycemia today. * Will increase basal significantly (max of doubled dose from yesterday). Also tightening Novolog parameters to reflect weight/stress of 3. * Continues to tolerate T2DM diet. Started on Zosyn last evening as well. 12/06: * Patient received total of 50 units of insulin yesterday, of which 25 units were basal insulin * Fasting BSG 124 mg/dL - IV dexamethasone discontinued, will hold AM Lantus and continue with PM scale only as insulin needs likely to be less without steroids 12/03: * 74 yo F w/PMH of CHF, Afib, T2DM presenting w/respiratory failure on 11/25/24. Pharmacy consulted for glycemic management on 12/03/24. * Patients glycemic management has been difficult with a few BSGs in the 300s earlier in the admission and most recently severe hypoglycemia with BSG of 47 yesterday and 39 this morning both requiring treatments. BSG 93 at lunch. Per nursing notes pt has been refusing some of her meals/snacks * With pt's recent hypoglycemia and decreased PO intake will loosen Novolog parameters, increase goal range, and for now, hold pt's Lantus until glucose gets above goal range. PLAN FOR INPATIENT GLYCEMIC CONTROL: * Hold outpatient oral diabetes medications * Basal insulin * Lantus 45 units SC AM * Lantus 0-20 units SC HS (see eMAR for more details) * Bolus insulin * NovoLog per scale ACHS or Q6hrs while NPO * Goal Range: Low 120 mg/dL - High 150 mg/dL * Correction Factor: 20 mg/dL/unit * Nutritional / Prandial insulin per carb ratio of 1 unit per 3 grams CHO consumed
--- NOTE | 2024-12-09 16:01 | Pulmonology Progress Note ---
Date of Service December 09, 2024 Assessment & Plan (1) Hospital-acquired pneumonia: (2) Acute on chronic respiratory failure with hypoxia and hypercapnia: (3) Current smoker: (4) COPD, very severe: (5) COVID: (6) Sepsis: (7) Left lower lobe consolidation: (8) Aspiration pneumonia: (9) Leukocytosis: Plan Patient with left lower lobe atelectasis and right lower lobe infiltrates. Suspect intrapulmonary shunt given atelectasis in the lower lobes bilaterally with dense atelectasis/consolidation of the left lower lobe. The patient has refused PAP therapy. Does not appear that swallow study was performed. Recommend following up with speech therapy. Continue Zosyn and can consider transitioning to oral levofloxacin in the next 1 to 2 days depending on clinical picture and QTc. Would recommend total lobe 10 days of antibiotics. MRSA screen negative. Continue formoterol and budesonide. IV methylprednisone discontinued and patient transitioned to p.o. prednisone 30 mg daily for an additional 3 days and then stop. Continue pulmonary toileting as patient allows and patient able to tolerate. COVID-pneumonia less likely at this time as radiographic imaging is not consistent with COVID viral pneumonia. Imaging more consistent with aspiration pneumonia. Chest x-ray from today reviewed relatively unchanged with continued left lower lobe atelectasis and subtle infiltrates in the right lower lobe. Patient with worsening leukocytosis today. Unclear etiology. Chest imaging remains relatively stable. Consider other source of her leukocytosis other than pulmonary source. Will defer to primary team. Would recommend palliative care consultation given comorbidities and severity of acute illness. Pulmonary service to sign off. Please call questions. Thank you for the consult. Admission and Anticipated Discharge Date Admission Date: November 25, 2024 Subjective No significant events overnight. Patient remains largely stable and has been requesting pain meds throughout the day per nursing staff. Review of Systems Review of Systems: All systems reviewed & are unremarkable except as noted in HPI & below Physical Exam Physical Exam: Constitutional: Elderly, frail disheveled appearing female laying in bed. Nasal cannula in place. Eyes: Pupils are equal round and reactive to light. Conjunctivae are normal. Anicteric sclera. Ears nose, mouth and throat: Mallampati class 2. Normal posterior oropharynx. Uvula is midline. Neck: Trachea is midline. Visual inspection is normal. Respiratory: No significant respiratory distress. Mild diminishment at the bases bilaterally with mild expiratory wheeze. Cardiovascular: Regular rate and rhythm. No murmurs. No edema. Gastrointestinal: Normal bowel sounds, soft, nontender and nondistended. No hepatosplenomegaly noted. Musculoskeletal: No cyanosis. Patient is able to move all extremities. Strength is 5 out of 5 in the upper and lower extremities. Skin: No rashes, warm dry and intact. Neurologic: No obvious focal neurological deficits seen. Psychiatric: Alert and oriented x3 with a euthymic affect. Results & Data Results & Data Vital Signs (Past 12 Hours) Vital Signs Temp Pulse Pulse Pulse Resp BP BP 12/09/24 15:34 36.5 C 66 18 126/62 12/09/24 15:09 65 12/09/24 15:00 12/09/24 11:19 36.4 C L 85 19 176/80 H 12/09/24 11:17 67 17 12/09/24 08:00 12/09/24 07:24 73 18 12/09/24 07:17 36.3 C L 73 19 169/78 H Pulse Ox O2 Del Method O2 Del Method O2 Flow Rate O2 Flow Rate 12/09/24 15:34 74 L Nasal Cannula 12/09/24 15:09 12/09/24 15:00 Nasal Cannula 6 12/09/24 11:19 90 Nasal Cannula 7 12/09/24 11:17 89 L Nasal Cannula 7 12/09/24 08:00 Nasal Cannula 6 12/09/24 07:24 94 Nasal Cannula 7 12/09/24 07:17 95 Nasal Cannula 7 PG Care Time/CCT Total # of Minutes Spent Total Time Spent with Patient: Total time spent is greater than 50% in coordination of care (as documented) at patient's floor/unit and/or counseling patient: Coding Level of Care Code 97580 SUB INP/OBS CARE 12/18MIN Diagnoses Hospital-acquired pneumonia J18.9; Y95 Acute on chronic respiratory failure with hypoxia and hypercapnia J96.21; J96.22 Current smoker F17.200 COPD, very severe J44.9 COVID U07.1 Sepsis A41.9 Left lower lobe consolidation J18.1 Aspiration pneumonia J69.0 Leukocytosis D72.829
--- NOTE | 2024-12-09 16:58 | Hospitalist Progress Note ---
Date of Service December 09, 2024 Assessment & Plan (1) Acute hypercapnic respiratory failure: (2) CHF (congestive heart failure): (3) Afib: (4) Diabetes type 2, uncontrolled: Plan 74-year-old female who presents with obtundation due acute on chronic respiratory failure with hypercarbia and hypoxemia. Patient continues to be a current smoker. Patient also tested positive for COVID-19. With collapse of LLL on Chest CT 12/02 from mucus plugging Acute on chronic respiratory failure hypercarbia and hypoxemia/Sepsis POA in setting of COVID-19 and UTI and PNA -with a h/o Copd, requiring 9LNC at one point and tachypneic, now weaned down but slightly worse than previous at 7LNC, much improved overall with starting Zosyn and IV SOlu Medrol 12/06. Initially received 10 days of IV dexamethasone and 7 days of ceftriaxone, 1 day of azithro. Ur cx with E. coli-treated with 7 days antibiotics Consult PULM again 12/06--> suspects severe aspiration PNA, started Zosyn and Solu Medrol-signed off Continue hypertonic saline, bronchodilator and inhaled corticosteroid nebs, contionue flutter valve, ICS Continue to wean down O2 as able to keep POx>88%--> sh eis on 4LNC at home Speech tx consult appreciated- VFSS normal-do not suspect aspiration pneumonia No sputum cxs to follow-she is now coughing up large amounts of sputum-ordered sputum culture but still not collected Follow chest x-ray periodically-CXR 12/09 with pleural effusions and bibasilar atelectasis Paroxysmal Afib/HTN/HFpEF -with last Echo 11/15 Remains in NSR here, BPs controlled to elevated at times, was given IV lasix and some IVFs at various points this hospital stay Continue metoprolol tartrate 25mg po bid, Eliquis 5mg bid With pleural effusions on CXR--> start gentle diuresis with lasix 20mg po qAM Continue to hold losartan for mild TATY which is now improved Continue tele monitoring Shock liver/Epigastric abd pain-2/2 hypotension on admission which is now resolved. 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--> recommend CTA abd-patient continues to decline this again and the order was canceled Doubt the abdominal pain is related to the shock liver but could be however she reports this abdominal pains been ongoing for many months Follow LFTs in AM Continue IV morphine, will increase dose of po oxycodone to 10 mg for post prandial pain in an effort to wean off IV pain medicine GI ordered hep serology-hepatitis ABC negative, KERI, AMA, IgG actin pending With constipation-ensure she is moving bowels-continue MiraLAX twice daily, add senna/docusate--> now moving bowels on 12/09 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 Both held and now with improvement to 1.2, potassium still mildly elevated at 5.4 continue to hold ACEi, follow BMP in AM Continue lokelma, low K+ diet Increasing insulin doses for hyperglycemia will improve potassium Start lasix 20mg po qAM on 12/09 follow BMP Anemia- Hgb 8.2 and remains stable, no overt GI bleeding, CT abd/pelvis showing ductal dilatation in pancreas, no mass but may have a small lesion. Gastro consulted: patient does not want any intervention. B12, folate normal; Fe studies anemia of chronic disease, TSH normal Follow CBC DMII--> continue Lantus & sliding scale and increase doses-pharmacy managing for hyperglycemia while on steroids GERD-continue PPI DVT proph-Eliquis Dispo-continued stay PCU, SHe has refused to work with PT on 2 occasions thus far; OT worked with her on 12/09 for first time and she could only stand for 10 sec, recommend acute rehab Admission and Anticipated Discharge Date Admission Date: November 25, 2024 Subjective Pt reports feeling better overall, still on 7LNC, moved bowels today and feels she has to go again. Is eating a lot. Has ongoing upper abdominal pain and asking for a pain pill. Tele with NSR 60-80s Physical Exam Constitutional: no acute distress Eyes: + anicteric sclerae Respiratory: not tachypneic Auscultation: + diminished lung sounds (left base), + crackles and + wheezes Cardiovascular: Rate/Rhythm: regular rate and regular rhythm Heart Sounds: no murmur Extremities: no edema Gastrointestinal (Abdomen): Inspection/Auscultation: normal bowel sounds Percussion/Palpation: abdomen soft; abdomen nontender Psychiatric: A+Ox3, euthymic affect Results & Data Results & Data Vital Signs (Past 12 Hours) Vital Signs Temp Pulse Pulse Pulse Resp BP BP 12/09/24 15:34 36.5 C 66 18 126/62 12/09/24 15:09 65 12/09/24 15:00 12/09/24 11:19 36.4 C L 85 19 176/80 H 12/09/24 11:17 67 17 12/09/24 08:00 12/09/24 07:24 73 18 12/09/24 07:17 36.3 C L 73 19 169/78 H Pulse Ox O2 Del Method O2 Del Method O2 Flow Rate O2 Flow Rate 12/09/24 15:34 74 L Nasal Cannula 12/09/24 15:09 12/09/24 15:00 Nasal Cannula 6 12/09/24 11:19 90 Nasal Cannula 7 12/09/24 11:17 89 L Nasal Cannula 7 12/09/24 08:00 Nasal Cannula 6 12/09/24 07:24 94 Nasal Cannula 7 12/09/24 07:17 95 Nasal Cannula 7 Laboratory Results CBC, CMP, mg PG Care Time/CCT Total # of Minutes Spent Total Time Spent with Patient: Total time spent is greater than 50% in coordination of care (as documented) at patient's floor/unit and/or counseling patient: Coding Level of Care Code 92078 SUB INP/OBS CARE 2/35MIN Diagnoses Acute hypercapnic respiratory failure J96.02 CHF (congestive heart failure) I50.9 Afib I48.91 Diabetes type 2, uncontrolled E11.65 Glycemic state: with hyperglycemia (4) Diabetes type 2, uncontrolled Glycemic state: with hyperglycemia Qualified Code(s): E11.65 - Type 2 diabetes mellitus with hyperglycemia
[2024-12-10 07:39] LABS: Basophils # (auto) 0.02 K/uL (0.00-0.20); Basophils % (auto) 0.2 %; Eosinophils # (auto) 0.08 K/uL (0.00-0.50); Eosinophils % (auto) 0.9 %; Hematocrit (blood only) 28.1 % (37.0-47.0); Hemoglobin 8.3 g/dl (12.0-16.0); Immature Granulocytes # (auto) 0.16 K/uL (0.01-0.20); Immature Granulocytes % (auto) 1.8 %; Lymphocytes # (auto) 1.01 K/uL (1.20-3.40); Lymphocytes % (auto) 11.1 %; Mean Corpuscular Hemoglobin 25.6 pg (25.0-34.0); Mean Corpuscular Hgb Conc 29.5 g/dL (32.0-36.0); Mean Corpuscular Volume 86.7 fL (80.0-100.0); Mean Platelet Volume 11.4 fL (9.4-12.4); Monocytes # (auto) 0.56 K/uL (0.11-0.59); Monocytes % (auto) 6.1 %; Neutrophils # (auto) 7.29 K/uL (1.40-6.50); Neutrophils % (auto) 79.9 %; Nucleated RBC # (auto) 0.02 K/uL (0.00-0.12); Nucleated RBC % (auto) 0.2 %; Platelet Count 339 K/uL (130-400); RDW Coefficient of Variation 18.6 % (11.5-14.5); RDW Standard Deviation 58.7 fL (36.4-46.3); Red Blood Count 3.24 M/uL (4.20-5.40); White Blood Count 9.12 K/ul (4.8-10.8)
[2024-12-10 08:01] LABS: Albumin Level 3.1 gm/dl (3.4-5.0); Bilirubin,Total 0.3 mg/dl (0.2-1.0); Calcium 8.8 mg/dl (8.6-10.3); Magnesium 1.9 mg/dl (1.7-2.4); Potassium 4.6 mmol/L (3.5-5.1)
[2024-12-10 08:07] LABS: Albumin Globulin Ratio 1.3 (0.9-2); BUN Creatinine Ratio 30.8 (10-20); Creatinine Clr Calc Pharmacy 27.5 ml/min; Globulin 2.3 gm/dl (2.5-4.0); Total Protein 5.4 gm/dl (6.0-8.3)
[2024-12-10] MEDS: LANTUS PER UNIT CHARGE SC SCH (08:37)
[2024-12-10] MEDS: predniSONE 10 MG TABLET PO SCH (08:39)
[2024-12-10] MEDS: NovoLIN-N (NPH) PER UNIT CHARGE SQ ONE (08:39)
--- NOTE | 2024-12-10 13:22 | Fluoroscopy Report ---
FL video swallow CLINICAL HISTORY: 74 years-old Female with r/o aspiration. This patient with possible aspiration TECHNIQUE: Video fluoroscopic evaluation of swallowing was performed in the AP and lateral projection s by the speech pathology staff. The patient is fed varying consistencies of barium. FLUOROSCOPY TIME: 1.36 minutes. 2051 images were submitted. 9.51 mGy. COMPARISON STUDY: 02/27/2024 FINDINGS: Small amount of silent aspiration noted with thin liquid barium. Laryngeal penetration with nectar consistency. No additional definitive aspiration identified throughout the study. Swallowing function is otherwise within normal limits. IMPRESSION: 1. Aspiration with thin liquid barium. 2. Please see the speech pathologist report for detailed findings and recommendations. ACT 112: Negative or not required by law. Electronically signed by: Israel Sharma M.D. 12/10/2024 12:57 PM
--- NOTE | 2024-12-10 13:49 | Hospitalist Progress Note ---
Date of Service December 10, 2024 Assessment & Plan (1) Acute hypercapnic respiratory failure: (2) CHF (congestive heart failure): (3) Afib: (4) Diabetes type 2, uncontrolled: Plan 74-year-old female who presents with obtundation due acute on chronic respiratory failure with hypercarbia and hypoxemia. Patient continues to be a current smoker. Patient also tested positive for COVID-19. With collapse of LLL on Chest CT 12/02 from mucus plugging Acute on chronic respiratory failure hypercarbia and hypoxemia/Sepsis POA in setting of COVID-19 and UTI and PNA -with a h/o Copd, requiring 9LNC at one point and tachypneic, now weaned down but slightly worse than previous at 7LNC, much improved overall with starting Zosyn and IV SOlu Medrol 12/06, however she has not been mobile at all and is likely still with mucus plugging and collapse of LLL causing hypoxia-have not been able to wean off 7LNC for many days Initially received 10 days of IV dexamethasone and 7 days of ceftriaxone, 1 day of azithro. Ur cx with E. coli-treated with 7 days antibiotics Consult PULM again 12/06--> suspects severe aspiration PNA, started Zosyn and Solu Medrol--> now switched to prednisone 30mg daily- PULM signed off Continue hypertonic saline, bronchodilator and inhaled corticosteroid nebs, continue flutter valve, ICS. SHe refuses vibration due to back pain Continue to wean down O2 as able to keep POx>88%--> she is on 4LNC at home Speech tx consult appreciated- VFSS normal-do not suspect aspiration pneumonia No sputum cxs to follow-she is now coughing up large amounts of sputum-ordered sputum culture but still not collected Follow chest x-ray periodically-CXR 12/09 with pleural effusions and bibasilar atelectasis Paroxysmal Afib/HTN/HFpEF -with last Echo 11/15 Remains in NSR here, BPs controlled to elevated at times, was given IV lasix and some IVFs at various points this hospital stay Continue metoprolol tartrate 25mg po bid, Eliquis 5mg bid With pleural effusions on CXR--> started gentle diuresis with lasix 20mg po qAM Continue to hold losartan for mild TATY which is now improved Continue tele monitoring Shock liver/Epigastric abd pain-2/2 hypotension on admission which is now resolved. 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--> recommend CTA abd-patient continues to decline this again and the order was canceled Doubt the abdominal pain is related to the shock liver but could be however she reports this abdominal pains been ongoing for many months Follow LFTs in AM Need to wean off IV pain meds-discontinue IV morphine, continue po oxycodone 10 mg for post prandial pain GI ordered hep serology-hepatitis ABC negative, KERI, AMA, IgG actin pending With constipation now resolved after large BM on 12/10-continue MiraLAX twice daily, senna/docusate 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 Both held and w/ improvement to 1.2, now back up to 1.4 after starting lasix 20mg po daily. Hyperkalemia now resolved after starting po lasix continue to hold ACEi Continue lokelma, low K+ diet Increasing insulin doses for hyperglycemia will improve potassium ok to continue lasix 20mg po qAM on 12/09 follow BMP Anemia- Hgb 8.3 and remains stable, no overt GI bleeding, CT abd/pelvis showing ductal dilatation in pancreas, no mass but may have a small lesion. Gastro consulted: patient does not want any intervention. B12, folate normal; Fe studies anemia of chronic disease, TSH normal Follow CBC DMII--> with hypoglycemia now on 12/10 requiring D50 AMp continue Lantus & sliding scale --pharmacy managing for hyperglycemia while on steroids GERD-continue PPI DVT proph-Eliquis Dispo-continued stay PCU, PT/OT recommending rehab-CM made referrals Admission and Anticipated Discharge Date Admission Date: November 25, 2024 Subjective Pt reports ongoing upper abdominal pain but we discussed not using IV pain meds. SHe is content with taking po pain meds. Is moving bowels "a lot." Physical Exam Constitutional: + ill appearing; no acute distress Eyes: + anicteric sclerae Respiratory: not tachypneic Auscultation: + diminished lung sounds (left base) and + crackles; no wheezes Cardiovascular: Rate/Rhythm: regular rate and regular rhythm Heart Sounds: no murmur Extremities: no edema Gastrointestinal (Abdomen): Inspection/Auscultation: normal bowel sounds Percussion/Palpation: abdomen soft; abdomen nontender Psychiatric: A+Ox3, euthymic affect Results & Data Results & Data Vital Signs (Past 12 Hours) Vital Signs Temp Pulse Resp BP BP Pulse Ox O2 Del Method 12/10/24 12:11 36.3 C L 58 L 18 109/64 90 Nasal Cannula 12/10/24 07:26 36.3 C L 67 18 124/69 95 Nasal Cannula 12/10/24 06:55 88 20 95 Nasal Cannula 12/10/24 02:34 36.4 C L 56 L 16 134/68 98 Nasal Cannula 12/10/24 02:13 55 L 16 91 Nasal Cannula O2 Flow Rate 12/10/24 12:11 7 12/10/24 07:26 6 12/10/24 06:55 7 12/10/24 02:34 7 12/10/24 02:13 7 Laboratory Results CBC, BMP reviewed PG Care Time/CCT Total # of Minutes Spent Total Time Spent with Patient: Total time spent is greater than 50% in coordination of care (as documented) at patient's floor/unit and/or counseling patient: Coding Level of Care Code 67033 SUB INP/OBS CARE 2/35MIN Diagnoses Acute hypercapnic respiratory failure J96.02 CHF (congestive heart failure) I50.9 Afib I48.91 Diabetes type 2, uncontrolled E11.65 Glycemic state: with hyperglycemia (4) Diabetes type 2, uncontrolled Glycemic state: with hyperglycemia Qualified Code(s): E11.65 - Type 2 diabetes mellitus with hyperglycemia
--- NOTE | 2024-12-10 15:29 | Pharmacy Report ---
Pharmacy Glycemic Short Note 2 - Date of Service December 10, 2024 - Glycemic Short BSG Results (Last 24 hours): 12/09/24 12/09/24 12/10/24 16:20 19:57 06:53 Glucose 99 POC Glucose 173 H 143 H 12/10/24 12/10/24 12/10/24 07:24 11:38 13:19 Glucose POC Glucose 121 H 68 L* 46 L* 12/10/24 13:49 Glucose POC Glucose 218 H OUTPATIENT ANTIDIABETIC REGIMEN: * Glargine 20 units SC BID * Lispro 8 units SC TIDM * Metformin 1 g PO BID * HbA1c: 7.5% (11/26/24) ASSESSMENT: 12/10: * Daniella received 72 units of insulin yesterday (45 were basal) * Fasting BSG this AM within goal range, steroids changed from Solumedrol 40mg IV BID to prednisone 30mg Daily x 3 days. Historically patient has been very sensitive to prednisone, specifically referenced admission from 09/15 when patient received 25 units of Lantus and 25 units of NPH with prednisone 40mg. Dosed basal aggressively this AM with 0.3 units/kg insulin NPH and 30 units of Lantus * Unfortunately, hypoglycemic event occurred at lunchtime today, likely due to prandial effects from NPH, carb heavy breakfast with tight CR. Hypoglycemia treated with lunch tray and orange juice. Repeat BSG 46 and D50W 25gm was administered, BSGs rebounded. * Will loosen NovoLog due to hypoglycemic event, will likely need tightened again when NPH effects wear off. 12/09: * Daniella received 87 units of insulin yesterday (45 were basal) * Fasting BSG this AM above goal range, will give all of yesterday's basal dose this AM and allow for additional to be given this evening if BSGs remain elevated. * Correction factor loosened due to large BSG decrease from lunch to dinner yesterday, and carbohydrate ratio tightened due to elevated postprandials * She continues on IV Zosyn and IV Solumedrol 40mg BID, expect insulin requirements to decrease significantly once steroids weaned 12/08: * Received 55 units of insulin yesterday, 30 of which were basal. BSGs were: [phone] mg/dL. * Fasting BSG increased further to 292 mg/dL this AM. Despite doubling dose of basal yesterday, will still increase basal today. Giving 30 units this AM with a small scale at HS to provide equivalent of home dose or slightly stress home dose. * Tightened correction factor and carb ratio this AM to help with steroid- induced postprandial hyperglycemia. Of note, patient received AM Novolog dose in close proximity to lunchtime BSG reading so believe this reading is falsely elevated. Will not make any further adjustments in light of this. 12/07: * Daniella received 22 units of insulin yesterday, 15 of which were basal. BSGs were: [phone] mg/dL. * Fasting BSG this AM is well above goal at 258 mg/dL. Unfortunately, patient was started on an increased dose of steroids last night, SoluMedrol 40 mg IV BID, after the basal insulin had been reduced. This is likely the reasoning for hyperglycemia today. * Will increase basal significantly (max of doubled dose from yesterday). Also tightening Novolog parameters to reflect weight/stress of 3. * Continues to tolerate T2DM diet. Started on Zosyn last evening as well. 12/06: * Patient received total of 50 units of insulin yesterday, of which 25 units were basal insulin * Fasting BSG 124 mg/dL - IV dexamethasone discontinued, will hold AM Lantus and continue with PM scale only as insulin needs likely to be less without steroids 12/03: * 74 yo F w/PMH of CHF, Afib, T2DM presenting w/respiratory failure on 11/25/24. Pharmacy consulted for glycemic management on 12/03/24. * Patients glycemic management has been difficult with a few BSGs in the 300s earlier in the admission and most recently severe hypoglycemia with BSG of 47 yesterday and 39 this morning both requiring treatments. BSG 93 at lunch. Per nursing notes pt has been refusing some of her meals/snacks * With pt's recent hypoglycemia and decreased PO intake will loosen Novolog parameters, increase goal range, and for now, hold pt's Lantus until glucose gets above goal range. PLAN FOR INPATIENT GLYCEMIC CONTROL: * Hold outpatient oral diabetes medications * Basal insulin * Lantus 30 units SC AM * Insulin NPH 15 units SQ x1 with prednisone. Reassess need in AM. * Bolus insulin * NovoLog per scale ACHS or Q6hrs while NPO * Goal Range: Low 120 mg/dL - High 150 mg/dL * Correction Factor: 30 mg/dL/unit * Nutritional / Prandial insulin per carb ratio of 1 unit per 5 grams CHO consumed
[2024-12-10 16:12] LABS: Anti Mitochondrial Antibody NEGATIVE (NEGATIVE); Anti Nuclear Antibody Screen NEGATIVE (NEGATIVE)
[2024-12-11 07:57] LABS: Basophils # (auto) 0.01 K/uL (0.00-0.20); Basophils % (auto) 0.1 %; Eosinophils # (auto) 0.07 K/uL (0.00-0.50); Eosinophils % (auto) 0.8 %; Hematocrit (blood only) 27.2 % (37.0-47.0); Hemoglobin 8.2 g/dl (12.0-16.0); Immature Granulocytes # (auto) 0.14 K/uL (0.01-0.20); Immature Granulocytes % (auto) 1.6 %; Lymphocytes # (auto) 1.13 K/uL (1.20-3.40); Lymphocytes % (auto) 12.7 %; Mean Corpuscular Hemoglobin 25.7 pg (25.0-34.0); Mean Corpuscular Hgb Conc 30.1 g/dL (32.0-36.0); Mean Corpuscular Volume 85.3 fL (80.0-100.0); Monocytes # (auto) 0.51 K/uL (0.11-0.59); Monocytes % (auto) 5.7 %; Neutrophils # (auto) 7.05 K/uL (1.40-6.50); Neutrophils % (auto) 79.1 %; Platelet Count 372 K/uL (130-400); RDW Standard Deviation 56.8 fL (36.4-46.3); Red Blood Count 3.19 M/uL (4.20-5.40); White Blood Count 8.91 K/ul (4.8-10.8)
[2024-12-11 08:44] LABS: Albumin Globulin Ratio 1.3 (0.9-2); Albumin Level 3.1 gm/dl (3.4-5.0); BUN Creatinine Ratio 33.8 (10-20); Bilirubin,Total 0.3 mg/dl (0.2-1.0); Calcium 8.7 mg/dl (8.6-10.3); Creatinine Clr Calc Pharmacy 27.2 ml/min; Globulin 2.3 gm/dl (2.5-4.0); Magnesium 1.9 mg/dl (1.7-2.4); Potassium 4.1 mmol/L (3.5-5.1); Total Protein 5.4 gm/dl (6.0-8.3)
[2024-12-11] MEDS: MoRPHine SULFATE 4 MG/ML 1 ML CARP\\VIAL IV STA (09:33)
--- NOTE | 2024-12-11 18:37 | Hospitalist Progress Note ---
Date of Service December 11, 2024 Assessment & Plan (1) Acute hypercapnic respiratory failure: (2) CHF (congestive heart failure): (3) Afib: (4) Diabetes type 2, uncontrolled: Plan 74-year-old female who presents with obtundation due acute on chronic respiratory failure with hypercarbia and hypoxemia. Patient continues to be a current smoker. Patient also tested positive for COVID-19. With collapse of LLL on Chest CT 12/02 from mucus plugging Acute on chronic respiratory failure hypercarbia and hypoxemia/Sepsis POA in setting of COVID-19 and UTI and PNA -with a h/o Copd, requiring 9LNC at one point and tachypneic, now weaned down to 7LNC after starting Zosyn and IV SOlu Medrol 12/06, however she has not been mobile at all and is likely still with mucus plugging and collapse of LLL causing hypoxia-have not been able to wean off 7LNC for many days Initially received 10 days of IV dexamethasone and 7 days of ceftriaxone, 1 day of azithro. Ur cx with E. coli-treated with 7 days antibiotics Consult PULM again 12/06--> suspects severe aspiration PNA, started Zosyn and Solu Medrol--> now switched to prednisone 30mg daily- PULM signed off Continue hypertonic saline, bronchodilator and inhaled corticosteroid nebs, continue flutter valve, ICS. SHe refuses vibration due to back pain Continue to wean down O2 as able to keep POx>88%--> she is on 4LNC at home Speech tx consult appreciated- VFSS normal-do not suspect aspiration pneumonia No sputum cxs to follow-she is now coughing up large amounts of sputum-ordered sputum culture but still not collected Follow chest x-ray periodically-CXR 12/09 with pleural effusions and bibasilar atelectasis Wean down prednisone over the next 4 days-go to 20mg daily x 2 days on 12/12 Paroxysmal Afib/HTN/HFpEF -with last Echo 11/15 Remains in NSR here, BPs controlled to elevated at times, was given IV lasix and some IVFs at various points this hospital stay Continue metoprolol tartrate 25mg po bid, Eliquis 5mg bid With pleural effusions on CXR--> started gentle diuresis with lasix 20mg po qAM Continue to hold losartan for mild TATY which is now improved/stable Continue tele monitoring Shock liver/Epigastric abd pain-2/2 hypotension on admission which is now resolved. 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--> recommend CTA abd-patient continues to decline this again and the order was canceled Doubt the abdominal pain is related to the shock liver but could be however she reports this abdominal pains been ongoing for many months Follow LFTs in AM Need to wean off IV pain meds-discontinued IV morphine, continue po oxycodone 10 mg for post prandial pain--> she continues to ask very frequently for oxycodone GI ordered hep serology-hepatitis ABC negative, KERI, AMA, IgG actin pending With constipation now resolved after large BM on 12/10-continue MiraLAX twice daily, senna/docusate 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 Both held and w/ improvement to 1.2, now back up to 1.4 after starting lasix 20mg po daily but stable. Hyperkalemia now resolved after starting po lasix continue to hold ACEi Continue lokelma, low K+ diet ok to continue lasix 20mg po qAM follow BMP Anemia- Hgb 8.2 and remains stable, no overt GI bleeding, CT abd/pelvis showing ductal dilatation in pancreas, no mass but may have a small lesion. Gastro consulted: patient does not want any intervention. B12, folate normal; Fe studies anemia of chronic disease, TSH normal Follow CBC DMII-->HgbA1C 7.5%. Here with hyperglycemia on steroids and now with hypoglycemia on 12/10 requiring D50 AMp and again on AM of 12/11. Steroids being weaned and likely needed less insulin. Pharmacy is managing HOLD Lantus & continue sliding scale GERD-continue PPI DVT proph-Eliquis Dispo-continued stay PCU, PT/OT recommending rehab-CM made referrals. Will try to get weaned down to 4-5LNC before discharge, but hopefully dc to rehab on Friday Admission and Anticipated Discharge Date Admission Date: November 25, 2024 Subjective Pt asking for pain meds all day despite being asleep at times just before asking. She is not motivated to get out of bed but does say she is using her flutter valve and ICS. Remains on 6LNC Physical Exam Constitutional: + ill appearing; no acute distress Eyes: + anicteric sclerae Respiratory: not tachypneic Auscultation: + diminished lung sounds (left base) and + crackles; no wheezes Cardiovascular: Rate/Rhythm: regular rate and regular rhythm Heart Sounds: no murmur Extremities: no edema Gastrointestinal (Abdomen): Inspection/Auscultation: normal bowel sounds Percussion/Palpation: abdomen soft; abdomen nontender Psychiatric: A+Ox3, euthymic affect Results & Data Results & Data Vital Signs (Past 12 Hours) Vital Signs Temp Pulse Pulse Resp BP Pulse Ox O2 Del Method 12/11/24 16:15 36.8 C 70 18 95/58 L 94 Nasal Cannula 12/11/24 16:05 67 12/11/24 14:32 70 20 89 L Nasal Cannula 12/11/24 11:35 36.9 C 63 20 103/67 90 Nasal Cannula 12/11/24 10:39 72 22 89 L Nasal Cannula 12/11/24 09:56 High Flow Nasal Cannula 12/11/24 09:10 36.7 C 89 18 114/58 L 90 Nasal Cannula 12/11/24 07:30 65 12/11/24 07:23 73 20 91 Nasal Cannula O2 Flow Rate 12/11/24 16:15 6 12/11/24 16:05 12/11/24 14:32 6 12/11/24 11:35 6 12/11/24 10:39 6 12/11/24 09:56 6 12/11/24 09:10 6 12/11/24 07:30 12/11/24 07:23 5 Laboratory Results CBC, CMP, mag reviewed PG Care Time/CCT Total # of Minutes Spent Total Time Spent with Patient: Total time spent is greater than 50% in coordination of care (as documented) at patient's floor/unit and/or counseling patient: Coding Level of Care Code 75468 SUB INP/OBS CARE 3/50MIN Diagnoses Acute hypercapnic respiratory failure J96.02 CHF (congestive heart failure) I50.9 Afib I48.91 Diabetes type 2, uncontrolled E11.65 Glycemic state: with hyperglycemia (4) Diabetes type 2, uncontrolled Glycemic state: with hyperglycemia Qualified Code(s): E11.65 - Type 2 diabetes mellitus with hyperglycemia
[2024-12-11] MEDS: LANTUS PER UNIT CHARGE SC SCH (21:09)
[2024-12-12 07:57] LABS: Basophils # (auto) 0.01 K/uL (0.00-0.20); Basophils % (auto) 0.1 %; Eosinophils % (auto) 1.3 %; Hematocrit (blood only) 24.7 % (37.0-47.0); Hemoglobin 7.5 g/dl (12.0-16.0); Immature Granulocytes # (auto) 0.13 K/uL (0.01-0.20); Immature Granulocytes % (auto) 1.7 %; Lymphocytes # (auto) 1.05 K/uL (1.20-3.40); Lymphocytes % (auto) 13.5 %; Mean Corpuscular Hemoglobin 26.1 pg (25.0-34.0); Mean Corpuscular Hgb Conc 30.4 g/dL (32.0-36.0); Mean Corpuscular Volume 86.1 fL (80.0-100.0); Mean Platelet Volume 11.2 fL (9.4-12.4); Monocytes # (auto) 0.53 K/uL (0.11-0.59); Monocytes % (auto) 6.8 %; Neutrophils # (auto) 5.95 K/uL (1.40-6.50); Neutrophils % (auto) 76.6 %; Platelet Count 294 K/uL (130-400); RDW Coefficient of Variation 19.3 % (11.5-14.5); RDW Standard Deviation 59.3 fL (36.4-46.3); Red Blood Count 2.87 M/uL (4.20-5.40); White Blood Count 7.77 K/ul (4.8-10.8)
[2024-12-12 08:16] LABS: Albumin Globulin Ratio 1.4 (0.9-2); BUN Creatinine Ratio 34.7 (10-20); Bilirubin,Total 0.3 mg/dl (0.2-1.0); Calcium 8.4 mg/dl (8.6-10.3); Creatinine Clr Calc Pharmacy 27.4 ml/min; Globulin 2.1 gm/dl (2.5-4.0); Magnesium 1.9 mg/dl (1.7-2.4); Potassium 4.1 mmol/L (3.5-5.1); Total Protein 5.1 gm/dl (6.0-8.3)
[2024-12-12] MEDS: predniSONE 20 MG TAB PO SCH (08:18)
[2024-12-12 08:45] LABS: Hypochromasia Present
[2024-12-12] MEDS: oxyCODONE HCL IR 5 MG TAB (IMMEDIATE RELEASE) PO PRN (11:57)
[2024-12-12] MEDS: OPTIRAY 320 125ml IV ONE (12:39)
--- NOTE | 2024-12-12 13:01 | CT Scan Report ---
EXAM: CT Angiography Abdomen Without and With Intravenous Contrast INDICATION: Question SMA stenosis on ultrasound. TECHNIQUE: Axial computed tomographic angiography images of the abdomen without and with intravenous contrast. Sagittal and coronal reformatted images were created and reviewed. This CT exam was performed using one or more of the following dose reduction techniques: automated exposure control, adjustment of the mA and/or kV according to patient size, and/or use of iterative reconstruction technique. Oral contrast was administered. MIP reconstructed images were created and reviewed. CONTRAST: 119ml of Optiray 320 was administered intravenously. COMPARISON: Abdominal duplex ultrasound and CT abdomen pelvis 12/06/2024 FINDINGS: Aorta: There is diffuse aortic atherosclerosis. There is stable 4 cm aneurysm of the distal abdominal aorta without hemorrhage or dissection. Celiac trunk and mesenteric arteries: Inferior mesenteric artery is patent. No aneurysm, dissection or stenosis. There is dense atherosclerotic calcification at the origin of the superior mesenteric artery with approximately 75% stenosis at the origin. There are multiple calcific plaques in the horizontal segment with multifocal stenoses of up to 50%. There is mild calcification at the origin of the celiac trunk without significant stenosis. There is calcification in the distal celiac artery just proximal to the hepatic branch. No aneurysm or dissection. Appearance stable. Renal arteries: No acute change noted. No occlusion or significant stenosis. Iliac arteries: Moderate to marked calcific plaque noted in the bilateral common iliac arteries with multifocal l stenoses of up to 50% noted bilaterally. No occlusion. Other veins: Portal and superior mesenteric veins are patent. Lung bases and pleural space: New small bilateral layering pleural effusions. There is airway thickening and consolidation in both lower and right middle lobes. There is a slightly focal masslike consolidate and/or adjacent pleural thickening/fluid in the medial left lung base lateral to the aorta measuring 2.5 x 1.3 x 3.1 cm. Liver: No abnormality noted. No mass. Gallbladder and bile ducts: No abnormality noted. No calcified stones. No ductal dilation. Pancreas: No abnormality noted. No ductal dilation. No mass. Spleen: Stable splenic granulomata. Adrenals: Adenomatous changes of each adrenal gland stable. Kidneys and ureters: No abnormality noted. No obstructing stones. No hydronephrosis. No solid mass. Stomach and bowel: Visualized intestinal loops are normally distributed. There is no thickening or inflammatory process. Moderate amounts of formed stool in the colon and left colonic diverticulosis noted. No obstruction. Intraperitoneal space: No abnormality noted. No significant fluid collection. No free air. Bones/joints: Degenerative changes noted in the scoliotic spine. No acute osseous abnormality noted. Soft tissues: No abnormality noted. No mass. Lymph nodes: No abnormality noted. No enlarged lymph nodes. IMPRESSION: 1. 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 There is approximately 75% stenosis at the origin. There are multifocal up to 50% stenoses in the horizontal segment. 2. 4 cm abdominal aortic aneurysm is stable. No hemorrhage. ACR White Paper guidelines (Diaz, et al. JACR 2013; 10(10):789-94) suggest abdomen/pelvis CT or MR imaging follow-up in 1 years. 3. Dense atherosclerosis of the common iliac arteries with multifocal up to 50% stenoses. 4. Small bilateral pleural effusions and bibasilar airspace consolidation and bronchitis. Somewhat masslike consolidated in the medial left lower lobe likely reflects a confluence of pleural loculation and airspace consolidation. ACT 112: Negative or not required by law. Electronically signed by Arielle Ramirez 12-12-2024 12:59 PM
[2024-12-12] MEDS ORDERED: IPRATROPIUM BROMIDE NEB SOLN 0.02% 0.5MG/2.5ML VIAL NEB PRN (13:25)
[2024-12-12] MEDS ORDERED: LEVALBUTEROL 1.25 MG/3 ML NEB NEB PRN (13:26)
--- NOTE | 2024-12-12 19:05 | Hospitalist Progress Note ---
Date of Service December 12, 2024 Assessment & Plan (1) Acute hypercapnic respiratory failure: (2) CHF (congestive heart failure): (3) Afib: (4) Diabetes type 2, uncontrolled: Plan 74-year-old female who presents with obtundation due acute on chronic respiratory failure with hypercarbia and hypoxemia. Patient continues to be a current smoker. Patient also tested positive for COVID-19. With collapse of LLL on Chest CT 12/02 from mucus plugging Acute on chronic respiratory failure hypercarbia and hypoxemia/Sepsis POA in setting of COVID-19 and UTI and PNA -with a h/o Copd, requiring 9LNC at one point and tachypneic, now weaned down to 7LNC after starting Zosyn and IV SOlu Medrol 12/06, however she has not been mobile at all and is likely still with mucus plugging and collapse of LLL causing hypoxia-now weaned down to 6L. Initially received 10 days of IV dexamethasone and 7 days of ceftriaxone, 1 day of azithro. Ur cx with E. coli-treated with 7 days antibiotics Consult PULM again 12/06--> suspects severe aspiration PNA, started Zosyn and Charisma u Medrol--> now switched to prednisone 30mg daily- PULM signed off Continue hypertonic saline, bronchodilator and inhaled corticosteroid nebs, continue flutter valve, ICS. SHe refuses vibration due to back pain Continue to wean down O2 as able to keep POx>88%--> she is on 4LNC at home Speech tx consult appreciated- VFSS normal-do not suspect aspiration pneumonia No sputum cxs to follow-she is now coughing up large amounts of sputum-ordered sputum culture but still not collected Follow chest x-ray periodically-CXR 12/09 with pleural effusions and bibasilar atelectasis Wean down prednisone: prednisone 20 mg x 3 days Paroxysmal Afib/HTN/HFpEF -with last Echo 11/15 Remains in NSR here, BPs controlled to elevated at times, was given IV lasix and some IVFs at various points this hospital stay Continue metoprolol tartrate 25mg po bid, Eliquis 5mg bid With pleural effusions on CXR--> started gentle diuresis with lasix 20mg po qAM Continue to hold losartan for mild TATY which is now improved/stable Continue tele monitoring Shock liver/Epigastric abd pain-2/2 hypotension on admission which is now resolved. 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, multifocal up to 50% stenosis in the horizontal segment --> consider vascular surgery consult 12/13 Doubt the abdominal pain is related to the shock liver but could be however she reports this abdominal pains been ongoing for many months Follow LFTs in AM Need to wean off IV pain meds-discontinued IV morphine, continue po oxycodone 10 mg for post prandial pain--> she continues to ask very frequently for oxycodone GI ordered hep serology-hepatitis ABC negative, KERI, AMA, IgG actin pending With constipation now resolved after large BM on 12/10-continue MiraLAX twice daily, senna/docusate TATY/Hyperkalemia-equity manager was up to 1.5 after receiving 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 Both held and w/ improvement to 1.2, now back up to 1.4 after starting lasix 20mg po daily but stable. Hyperkalemia now resolved after starting po lasix continue to hold ACEi Continue lokelma, low K+ diet ok to continue lasix 20mg po qAM follow BMP Anemia- Hgb 7.5, no overt GI bleeding, CT abd/pelvis showing ductal dilatation in pancreas, no mass but may have a small lesion. Gastro consulted: patient does not want any intervention. B12, folate normal; Fe studies anemia of chronic disease, TSH normal Follow CBC DMII-->HgbA1C 7.5%. Here with hyperglycemia on steroids and now with hypoglycemia on 12/10 requiring D50 AMp and again on AM of 12/11. Steroids being weaned and likely needed less insulin. Pharmacy is managing HOLD Lantus & continue sliding scale GERD-continue PPI DVT proph-Eliquis Dispo-continued stay PCU, PT/OT recommending rehab-CM made referrals. Will try to get weaned down to 4-5LNC before discharge, but hopefully dc to rehab on Friday Admission and Anticipated Discharge Date Admission Date: November 25, 2024 Supervising Physician Co-Signing Physician Notes Attending Attestation - Chart reviewed, care plan d/w [place]. I agree w/ the [place] components of her documentation. 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 Ongoing supportive care for resp failure. Anibal Garza MD Subjective Patient seen and evaluated at bedside. She was resting comfortably in bed eating lunch when I entered the room. She reports ongoing severe abdominal pain and is requesting pain medication. We discussed that it would be very beneficial to get an abdominal CTA, she is agreeable. Will obtain today. Per RN, patient continuously screams loudly and pounds on her table, so much so that it becomes disruptive to other patients at times. Physical Exam Physical Exam: General: No acute distress, nondiaphoretic, well-developed, well-nourished. Cardiac: Regular rate and rhythm without murmurs gallops or rubs. Pulm: Diminished breath sounds L>R, otherwise clear to auscultation. No wheezing noted. 93% on 5 L via NC. Abdominal: Soft, nontender, nondistended. Bowel sounds present. Neuro: A&O x3. No focal neurological deficits. Results & Data Results & Data Vital Signs (Past 12 Hours) Vital Signs Temp Pulse Pulse Resp BP Pulse Ox Pulse Ox 12/12/24 16:43 98.4 F 79 17 135/58 L 89 L 12/12/24 15:00 93 12/12/24 13:00 70 12/12/24 10:44 67 20 89 L 12/12/24 10:18 97.9 F 64 18 127/71 90 12/12/24 10:00 65 12/12/24 08:58 98.2 F 72 19 109/66 90 12/12/24 07:14 71 18 89 L 12/12/24 07:00 O2 Del Method O2 Del Method O2 Flow Rate O2 Flow Rate 12/12/24 16:43 Nasal Cannula 6 12/12/24 15:00 Nasal Cannula 5 12/12/24 13:00 12/12/24 10:44 Nasal Cannula 5 12/12/24 10:18 Nasal Cannula 5 12/12/24 10:00 12/12/24 08:58 Nasal Cannula 5 12/12/24 07:14 Nasal Cannula 5 12/12/24 07:00 Nasal Cannula 4 Laboratory Results Reviewed CBC with differential Reviewed CMP Diagnostic Findings Reviewed abdominal CTA Abdomen CTA 12/12/24 11:38 EXAM: CT Angiography Abdomen Without and With Intravenous Contrast INDICATION: Question SMA stenosis on ultrasound. TECHNIQUE: Axial computed tomographic angiography images of the abdomen without and with intravenous contrast. Sagittal and coronal reformatted images were created and reviewed. This CT exam was performed using one or more of the following dose reduction techniques: automated exposure control, adjustment of the mA and/or kV according to patient size, and/or use of iterative reconstruction technique. Oral contrast was administered. MIP reconstructed images were created and reviewed. CONTRAST: 119ml of Optiray 320 was administered intravenously. COMPARISON: Abdominal duplex ultrasound and CT abdomen pelvis 12/06/2024 FINDINGS: Aorta: There is diffuse aortic atherosclerosis. There is stable 4 cm aneurysm of the distal abdominal aorta without hemorrhage or dissection. Celiac trunk and mesenteric arteries: Inferior mesenteric artery is patent. No aneurysm, dissection or stenosis. There is dense atherosclerotic calcification at the origin of the superior mesenteric artery with approximately 75% stenosis at the origin. There are multiple calcific plaques in the horizontal segment with multifocal stenoses of up to 50%. There is mild calcification at the origin of the celiac trunk without significant stenosis. There is calcification in the distal celiac artery just proximal to the hepatic branch. No aneurysm or dissection. Appearance stable. Renal arteries: No acute change noted. No occlusion or significant stenosis. Iliac arteries: Moderate to marked calcific plaque noted in the bilateral common iliac arteries with multifocal l stenoses of up to 50% noted bilaterally. No occlusion. Other veins: Portal and superior mesenteric veins are patent. Lung bases and pleural space: New small bilateral layering pleural effusions. There is airway thickening and consolidation in both lower and right middle lobes. There is a slightly focal masslike consolidate and/or adjacent pleural thickening/fluid in the medial left lung base lateral to the aorta measuring 2.5 x 1.3 x 3.1 cm. Liver: No abnormality noted. No mass. Gallbladder and bile ducts: No abnormality noted. No calcified stones. No ductal dilation. Pancreas: No abnormality noted. No ductal dilation. No mass. Spleen: Stable splenic granulomata. Adrenals: Adenomatous changes of each adrenal gland stable. Kidneys and ureters: No abnormality noted. No obstructing stones. No hydronephrosis. No solid mass. Stomach and bowel: Visualized intestinal loops are normally distributed. There is no thickening or inflammatory process. Moderate amounts of formed stool in the colon and left colonic diverticulosis noted. No obstruction. Intraperitoneal space: No abnormality noted. No significant fluid collection. No free air. Bones/joints: Degenerative changes noted in the scoliotic spine. No acute osseous abnormality noted. Soft tissues: No abnormality noted. No mass. Lymph nodes: No abnormality noted. No enlarged lymph nodes. IMPRESSION: 1. 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 There is approximately 75% stenosis at the origin. There are multifocal up to 50% stenoses in the horizontal segment. 2. 4 cm abdominal aortic aneurysm is stable. No hemorrhage. ACR White Paper guidelines (Diaz, et al. JACR 2013; 10(10):789-94) suggest abdomen/pelvis CT or MR imaging follow-up in 1 years. 3. Dense atherosclerosis of the common iliac arteries with multifocal up to 50% stenoses. 4. Small bilateral pleural effusions and bibasilar airspace consolidation and bronchitis. Somewhat masslike consolidated in the medial left lower lobe likely reflects a confluence of pleural loculation and airspace consolidation. ACT 112: Negative or not required by law. Electronically signed by Arielle Ramirez 12-12-2024 12:59 PM PG Care Time/CCT Total # of Minutes Spent Total Time Spent with Patient: Total time spent is greater than 50% in coordination of care (as documented) at patient's floor/unit and/or counseling patient: Coding Level of Care Code 11950 SUB INP/OBS CARE 3/50MIN Diagnoses Acute hypercapnic respiratory failure J96.02 CHF (congestive heart failure) I50.9 Afib I48.91 Diabetes type 2, uncontrolled E11.65 Glycemic state: with hyperglycemia (4) Diabetes type 2, uncontrolled Glycemic state: with hyperglycemia Qualified Code(s): E11.65 - Type 2 diabetes mellitus with hyperglycemia
[2024-12-12] MEDS: IPRATROPIUM BROMIDE NEB SOLN 0.02% 0.5MG/2.5ML VIAL NEB SCH (19:28)
[2024-12-12] MEDS: LEVALBUTEROL 1.25 MG/3 ML NEB NEB SCH (19:28)
[2024-12-13 07:23] LABS: Basophils # (auto) 0.02 K/uL (0.00-0.20); Basophils % (auto) 0.3 %; Eosinophils # (auto) 0.13 K/uL (0.00-0.50); Eosinophils % (auto) 1.9 %; Hematocrit (blood only) 26.3 % (37.0-47.0); Hemoglobin 7.9 g/dl (12.0-16.0); Immature Granulocytes # (auto) 0.08 K/uL (0.01-0.20); Immature Granulocytes % (auto) 1.2 %; Lymphocytes # (auto) 1.11 K/uL (1.20-3.40); Lymphocytes % (auto) 16.1 %; Mean Corpuscular Hemoglobin 25.9 pg (25.0-34.0); Mean Corpuscular Volume 86.2 fL (80.0-100.0); Mean Platelet Volume 11.2 fL (9.4-12.4); Monocytes # (auto) 0.53 K/uL (0.11-0.59); Monocytes % (auto) 7.7 %; Neutrophils # (auto) 5.03 K/uL (1.40-6.50); Neutrophils % (auto) 72.8 %; Platelet Count 327 K/uL (130-400); RDW Coefficient of Variation 19.6 % (11.5-14.5); RDW Standard Deviation 60.2 fL (36.4-46.3); Red Blood Count 3.05 M/uL (4.20-5.40)
[2024-12-13 07:53] LABS: Albumin Globulin Ratio 1.5 (0.9-2); Albumin Level 3.2 gm/dl (3.4-5.0); BUN Creatinine Ratio 27.6 (10-20); Bilirubin,Total 0.3 mg/dl (0.2-1.0); Calcium 8.7 mg/dl (8.6-10.3); Creatinine Clr Calc Pharmacy 25.8 ml/min; Globulin 2.2 gm/dl (2.5-4.0); Potassium 4.1 mmol/L (3.5-5.1); Total Protein 5.4 gm/dl (6.0-8.3)
[2024-12-13 07:58] LABS: Hypochromasia Present
[2024-12-13] MEDS: LANTUS PER UNIT CHARGE SC SCH ×2 (08:14→20:40)
--- NOTE | 2024-12-13 13:00 | Pharmacy Report ---
Pharmacy Glycemic Short Note 2 - Date of Service December 13, 2024 - Glycemic Short BSG Results (Last 24 hours): 12/12/24 12/12/24 12/13/24 16:27 20:29 06:44 Glucose 112 H POC Glucose 122 H 100 H 12/13/24 12/13/24 12/13/24 06:55 07:24 11:21 Glucose POC Glucose 143 H 121 H 261 H OUTPATIENT ANTIDIABETIC REGIMEN: * Glargine 20 units SC BID * Lispro 8 units SC TIDM * Metformin 1 g PO BID * HbA1c: 7.5% (11/26/24) ASSESSMENT: 12/13/24: * Blood sugars have been labile over past 72 hours with multiple episodes of hypoglycemia * Will allow for some hyperglycemia to minimize likelihood of hypoglycemia * Prednisone has been tapered to 20 mg PO daily 12/10: * Daniella received 72 units of insulin yesterday (45 were basal) * Fasting BSG this AM within goal range, steroids changed from Solumedrol 40mg IV BID to prednisone 30mg Daily x 3 days. Historically patient has been very sensitive to prednisone, specifically referenced admission from 09/15 when patient received 25 units of Lantus and 25 units of NPH with prednisone 40mg. Dosed basal aggressively this AM with 0.3 units/kg insulin NPH and 30 units of Lantus * Unfortunately, hypoglycemic event occurred at lunchtime today, likely due to prandial effects from NPH, carb heavy breakfast with tight CR. Hypoglycemia treated with lunch tray and orange juice. Repeat BSG 46 and D50W 25gm was administered, BSGs rebounded. * Will loosen NovoLog due to hypoglycemic event, will likely need tightened again when NPH effects wear off. 12/09: * Daniella received 87 units of insulin yesterday (45 were basal) * Fasting BSG this AM above goal range, will give all of yesterday's basal dose this AM and allow for additional to be given this evening if BSGs remain elevated. * Correction factor loosened due to large BSG decrease from lunch to dinner yest , and carbohydrate ratio tightened due to elevated postprandials * She continues on IV Zosyn and IV Solumedrol 40mg BID, expect insulin requirements to decrease significantly once steroids weaned 12/08: * Received 55 units of insulin yesterday, 30 of which were basal. BSGs were: [phone] mg/dL. * Fasting BSG increased further to 292 mg/dL this AM. Despite doubling dose of basal yesterday, will still increase basal today. Giving 30 units this AM with a small scale at HS to provide equivalent of home dose or slightly stress home dose. * Tightened correction factor and carb ratio this AM to help with steroid- induced postprandial hyperglycemia. Of note, patient received AM Novolog dose in close proximity to lunchtime BSG reading so believe this reading is falsely elevated. Will not make any further adjustments in light of this. 12/07: * Daniella received 22 units of insulin yesterday, 15 of which were basal. BSGs were: [phone] mg/dL. * Fasting BSG this AM is well above goal at 258 mg/dL. Unfortunately, patient was started on an increased dose of steroids last night, SoluMedrol 40 mg IV BID, after the basal insulin had been reduced. This is likely the reasoning for hyperglycemia today. * Will increase basal significantly (max of doubled dose from yesterday). Also tightening Novolog parameters to reflect weight/stress of 3. * Continues to tolerate T2DM diet. Started on Zosyn last evening as well. 12/06: * Patient received total of 50 units of insulin yesterday, of which 25 units were basal insulin * Fasting BSG 124 mg/dL - IV dexamethasone discontinued, will hold AM Lantus and continue with PM scale only as insulin needs likely to be less without steroids 12/03: * 74 yo F w/PMH of CHF, Afib, T2DM presenting w/respiratory failure on 11/25/24. Pharmacy consulted for glycemic management on 12/03/24. * Patients glycemic management has been difficult with a few BSGs in the 300s earlier in the admission and most recently severe hypoglycemia with BSG of 47 yesterday and 39 this morning both requiring treatments. BSG 93 at lunch. Per nursing notes pt has been refusing some of her meals/snacks * With pt's recent hypoglycemia and decreased PO intake will loosen Novolog parameters, increase goal range, and for now, hold pt's Lantus until glucose gets above goal range. PLAN FOR INPATIENT GLYCEMIC CONTROL: * Hold outpatient oral diabetes medications * Basal insulin * Lantus 10 units SC qAM * Lantus 0-5-10 units SC HS (see EHR for details) * Bolus insulin * NovoLog per scale ACHS or Q6hrs while NPO * Goal Range: Low 120 mg/dL - High 150 mg/dL * Correction Factor: 25 mg/dL/unit * Nutritional / Prandial insulin per carb ratio of 1 unit per 8 grams CHO consumed
[2024-12-13] MEDS: oxyCODONE HCL 10 MG TABCR (OxyCONTIN) PO SCH (21:00)
--- NOTE | 2024-12-13 21:23 | Hospitalist Progress Note ---
Date of Service December 13, 2024 Assessment & Plan (1) Acute hypercapnic respiratory failure: (2) CHF (congestive heart failure): (3) Afib: (4) Diabetes type 2, uncontrolled: Plan 74-year-old female who presents with obtundation due acute on chronic respiratory failure with hypercarbia and hypoxemia. Patient continues to be a current smoker. Patient also tested positive for COVID-19. With collapse of LLL on Chest CT 12/02 from mucus plugging Acute on chronic respiratory failure hypercarbia and hypoxemia/Sepsis POA in setting of COVID-19 and UTI and PNA -with a h/o Copd, requiring 9LNC at one point and tachypneic, now weaned down to 7LNC after starting Zosyn and IV SOlu Medrol 12/06, however she has not been mobile at all and is likely still with mucus plugging and collapse of LLL causing hypoxia-now weaned down to 6L. Initially received 10 days of IV dexamethasone and 7 days of ceftriaxone, 1 day of azithro. Ur cx with E. coli-treated with 7 days antibiotics Consult PULM again 12/06--> suspects severe aspiration PNA, started Zosyn and Charisma u Medrol--> now switched to prednisone 30mg daily- PULM signed off Continue hypertonic saline, bronchodilator and inhaled corticosteroid nebs, continue flutter valve, ICS. SHe refuses vibration due to back pain Continue to wean down O2 as able to keep POx>88%--> she is on 4LNC at home Speech tx consult appreciated- VFSS normal-do not suspect aspiration pneumonia No sputum cxs to follow-she is now coughing up large amounts of sputum-ordered sputum culture but still not collected Follow chest x-ray periodically-CXR 12/09 with pleural effusions and bibasilar atelectasis Wean down prednisone: prednisone 20 mg x 3 days supplemental oxygen is no 8 liters on 12/13 holding discharge Paroxysmal Afib/HTN/HFpEF -with last Echo 11/15 Remains in NSR here, BPs controlled to elevated at times, was given IV lasix and some IVFs at various points this hospital stay Continue metoprolol tartrate 25mg po bid, Eliquis 5mg bid With pleural effusions on CXR--> started gentle diuresis with lasix 20mg po qAM Continue to hold losartan for mild TATY which is now improved/stable Continue tele monitoring Shock liver/Epigastric abd pain-2/2 hypotension on admission which is now resolved. 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, multifocal up to 50% stenosis in the horizontal segment --> consider vascular surgery consult 12/13 Doubt the abdominal pain is related to the shock liver but could be however she reports this abdominal pains been ongoing for many months Follow LFTs in AM Need to wean off IV pain meds-discontinued IV morphine, continue po oxycodone 10 mg for post prandial pain--> she continues to ask very frequently for oxycodone GI ordered hep serology-hepatitis ABC negative, KERI, AMA, IgG actin pending With constipation now resolved after large BM on 12/10-continue MiraLAX twice daily, senna/docusate TATY/Hyperkalemia-last repairer helper was up to 1.5 after receiving 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 Both held and w/ improvement to 1.2, now back up to 1.4 after starting lasix 20mg po daily but stable. Hyperkalemia now resolved after starting po lasix continue to hold ACEi Continue lokelma, low K+ diet ok to continue lasix 20mg po qAM follow BMP Anemia- Hgb 7.5, no overt GI bleeding, CT abd/pelvis showing ductal dilatation in pancreas, no mass but may have a small lesion. Gastro consulted: patient does not want any intervention. B12, folate normal; Fe studies anemia of chronic disease, TSH normal Follow CBC DMII-->HgbA1C 7.5%. Here with hyperglycemia on steroids and now with hypoglycemia on 12/10 requiring D50 AMp and again on AM of 12/11. Steroids being weaned and likely needed less insulin. Pharmacy is managing HOLD Lantus & continue sliding scale GERD-continue PPI uncontrolled pain: ordered oxycontin 10 mg PO BID, will monitor pain control. DVT proph-Eliquis Dispo-continued stay PCU, PT/OT recommending rehab-CM made referrals. Will try to get weaned down to 4-5LNC before discharge Admission and Anticipated Discharge Date Admission Date: November 25, 2024 Subjective Patient reports her pain is not controlled Physical Exam Physical Exam: Patient is alert and appropriate She is RRR without murmurs heard Abdomen soft, reproducible epigastric tenderness Extremities are without edema Results & Data Results & Data Vital Signs (Past 12 Hours) Vital Signs Temp Pulse Pulse Resp BP BP Pulse Ox 12/13/24 20:11 36.6 C 65 18 129/85 94 12/13/24 19:59 71 16 97 12/13/24 18:47 99 12/13/24 15:41 36.9 C 65 20 113/68 93 12/13/24 15:00 12/13/24 14:30 71 12/13/24 12:50 66 20 96 12/13/24 11:17 36.8 C 76 20 130/63 93 Pulse Ox O2 Del Method O2 Del Method O2 Flow Rate O2 Flow Rate 12/13/24 20:11 Nasal Cannula, High Flow Nasal Cannula 6 12/13/24 19:59 Nasal Cannula 5 12/13/24 18:47 Nasal Cannula 10 12/13/24 15:41 Nasal Cannula 10 12/13/24 15:00 93 Nasal Cannula 9 12/13/24 14:30 12/13/24 12:50 Nasal Cannula 11 12/13/24 11:17 Nasal Cannula 10 PG Care Time/CCT Total # of Minutes Spent Total Time Spent with Patient: Total time spent is greater than 50% in coordination of care (as documented) at patient's floor/unit and/or counseling patient: Coding Level of Care Code 56613 SUB INP/OBS CARE 3/50MIN Diagnoses Acute hypercapnic respiratory failure J96.02 CHF (congestive heart failure) I50.9 Afib I48.91 Diabetes type 2, uncontrolled E11.65 Glycemic state: with hyperglycemia (4) Diabetes type 2, uncontrolled Glycemic state: with hyperglycemia Qualified Code(s): E11.65 - Type 2 diabetes mellitus with hyperglycemia
[2024-12-14 07:10] LABS: Hematocrit (blood only) 25.2 % (37.0-47.0); Hemoglobin 7.5 g/dl (12.0-16.0); Mean Corpuscular Hemoglobin 25.8 pg (25.0-34.0); Mean Corpuscular Hgb Conc 29.8 g/dL (32.0-36.0); Mean Corpuscular Volume 86.6 fL (80.0-100.0); Mean Platelet Volume 11.1 fL (9.4-12.4); Platelet Count 311 K/uL (130-400); RDW Coefficient of Variation 19.2 % (11.5-14.5); RDW Standard Deviation 59.8 fL (36.4-46.3); Red Blood Count 2.91 M/uL (4.20-5.40)
[2024-12-14 07:48] LABS: Albumin Globulin Ratio 1.4 (0.9-2); BUN Creatinine Ratio 35.2 (10-20); Bilirubin,Total 0.3 mg/dl (0.2-1.0); Calcium 8.7 mg/dl (8.6-10.3); Creatinine Clr Calc Pharmacy 32.2 ml/min; Globulin 2.1 gm/dl (2.5-4.0); Potassium 4.3 mmol/L (3.5-5.1); Total Protein 5.1 gm/dl (6.0-8.3)
--- NOTE | 2024-12-14 22:58 | Hospitalist Progress Note ---
Date of Service December 14, 2024 Assessment & Plan (1) Acute hypercapnic respiratory failure: (2) CHF (congestive heart failure): (3) Afib: (4) Diabetes type 2, uncontrolled: Plan 74-year-old female who presents with obtundation due acute on chronic respiratory failure with hypercarbia and hypoxemia. Patient continues to be a current smoker. Patient also tested positive for COVID-19. With collapse of LLL on Chest CT 12/02 from mucus plugging Acute on chronic respiratory failure hypercarbia and hypoxemia/Sepsis POA in setting of COVID-19 and UTI and PNA -with a h/o Copd, requiring 9LNC at one point and tachypneic, now weaned down to 7LNC after starting Zosyn and IV SOlu Medrol 12/06, however she has not been mobile at all and is likely still with mucus plugging and collapse of LLL causing hypoxia-now weaned down to 6L. Initially received 10 days of IV dexamethasone and 7 days of ceftriaxone, 1 day of azithro. Ur cx with E. coli-treated with 7 days antibiotics Consult PULM again 12/06--> suspects severe aspiration PNA, started Zosyn and Charisma u Medrol--> now switched to prednisone 30mg daily- PULM signed off Continue hypertonic saline, bronchodilator and inhaled corticosteroid nebs, continue flutter valve, ICS. SHe refuses vibration due to back pain Continue to wean down O2 as able to keep POx>88%--> she is on 4LNC at home Speech tx consult appreciated- VFSS normal-do not suspect aspiration pneumonia No sputum cxs to follow-she is now coughing up large amounts of sputum-ordered sputum culture but still not collected Follow chest x-ray periodically-CXR 12/09 with pleural effusions and bibasilar atelectasis Wean down prednisone: prednisone 20 mg x 3 days Patient continues to require high amount of oxygen. at rest 5 liters, but on ambulation required about 10-15 liters. Paroxysmal Afib/HTN/HFpEF -with last Echo 11/15 Remains in NSR here, BPs controlled to elevated at times, was given IV lasix and some IVFs at various points this hospital stay Continue metoprolol tartrate 25mg po bid, Eliquis 5mg bid With pleural effusions on CXR--> started gentle diuresis with lasix 20mg po qAM Continue to hold losartan for mild TATY which is now improved/stable Continue tele monitoring Shock liver/Epigastric abd pain-2/2 hypotension on admission which is now resolved. 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, multifocal up to 50% stenosis in the horizontal segment --> consider vascular surgery consult 12/13 Doubt the abdominal pain is related to the shock liver but could be however she reports this abdominal pains been ongoing for many months Follow LFTs in AM Need to wean off IV pain meds-discontinued IV morphine, continue po oxycodone 10 mg for post prandial pain--> she continues to ask very frequently for oxycodone GI ordered hep serology-hepatitis ABC negative, KERI, AMA, IgG actin pending With constipation now resolved after large BM on 12/10-continue MiraLAX twice daily, senna/docusate TATY/Hyperkalemia-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 Both held and w/ improvement to 1.2, now back up to 1.4 after starting lasix 20mg po daily but stable. Hyperkalemia now resolved after starting po lasix continue to hold ACEi Continue lokelma, low K+ diet ok to continue lasix 20mg po qAM follow BMP Anemia- Hgb 7.5, no overt GI bleeding, CT abd/pelvis showing ductal dilatation in pancreas, no mass but may have a small lesion. Gastro consulted: patient does not want any intervention. B12, folate normal; Fe studies anemia of chronic disease, TSH normal Follow CBC DMII-->HgbA1C 7.5%. Here with hyperglycemia on steroids and now with hypoglycemia on 12/10 requiring D50 AMp and again on AM of 12/11. Steroids being weaned and likely needed less insulin. Pharmacy is managing HOLD Lantus & continue sliding scale GERD-continue PPI DVT proph-Eliquis Dispo-continued stay PCU, PT/OT recommending rehab-CM made referrals. Will try to get weaned down to 4-5LNC before discharge, but hopefully dc to rehab soon Admission and Anticipated Discharge Date Admission Date: November 25, 2024 Subjective Patient continues to complain of abdominal pain. Physical Exam Physical Exam: Patient is alert and appropriate She is RRR without murmurs heard Abdomen soft, reproducible epigastric tenderness Extremities are without edema Results & Data Results & Data Vital Signs (Past 12 Hours) Vital Signs Temp Pulse Resp BP Pulse Ox O2 Del Method O2 Flow Rate 12/14/24 22:26 36.5 C 55 L 16 117/65 99 High Flow Nasal Cannula 12/14/24 20:44 Nasal Cannula 6 12/14/24 19:58 65 17 95 Nasal Cannula 6 12/14/24 15:15 36.6 C 63 20 122/61 98 Nasal Cannula 15 12/14/24 11:47 62 24 90 Nasal Cannula 15 12/14/24 11:21 36.4 C L 66 22 100/57 L 92 Nasal Cannula 5 PG Care Time/CCT Total # of Minutes Spent Total Time Spent with Patient: Total time spent is greater than 50% in coordination of care (as documented) at patient's floor/unit and/or counseling patient: Coding Level of Care Code 66131 SUB INP/OBS CARE 2/35MIN Diagnoses Acute hypercapnic respiratory failure J96.02 CHF (congestive heart failure) I50.9 Afib I48.91 Diabetes type 2, uncontrolled E11.65 Glycemic state: with hyperglycemia (4) Diabetes type 2, uncontrolled Glycemic state: with hyperglycemia Qualified Code(s): E11.65 - Type 2 diabetes mellitus with hyperglycemia
[2024-12-15 08:13] LABS: Hematocrit (blood only) 25.7 % (37.0-47.0); Hemoglobin 7.5 g/dl (12.0-16.0); Mean Corpuscular Hemoglobin 25.4 pg (25.0-34.0); Mean Corpuscular Hgb Conc 29.2 g/dL (32.0-36.0); Mean Corpuscular Volume 87.1 fL (80.0-100.0); Mean Platelet Volume 11.6 fL (9.4-12.4); Platelet Count 308 K/uL (130-400); RDW Coefficient of Variation 19.7 % (11.5-14.5); RDW Standard Deviation 61.7 fL (36.4-46.3); Red Blood Count 2.95 M/uL (4.20-5.40); White Blood Count 6.36 K/ul (4.8-10.8)
[2024-12-15 08:38] LABS: Alanine Aminotransferase 105 U/L (7-52); Alkaline Phosphatase 105 U/L (34-104); Anion Gap 4 (3-11); Aspartate Aminotransferase 29 U/L (13-39); BUN Creatinine Ratio 43.3 (10-20); Bilirubin,Total 0.2 mg/dl (0.2-1.0); Blood Urea Nitrogen 52 mg/dl (6-23); C Reactive Protein < 0.50 mg/dl (0-0.5); Calcium 8.6 mg/dl (8.6-10.3); Carbon Dioxide 33 mmol/L (21-32); Chloride 104 mmol/L (98-107); Creatinine Clr Calc Pharmacy 33.5 ml/min; Glucose 159 mg/dl (70-99(Fasting)); Sodium 141 mmol/L (136-145)
[2024-12-15] MEDS: ONDANSETRON INJ 2 MG/ML 2 ML VIAL IV PRN (10:26)
--- NOTE | 2024-12-15 13:10 | CT Scan Report ---
CT OF THE CHEST WITHOUT IV CONTRAST CLINICAL HISTORY: Recurrent hypoxia. COMPARISON STUDY: Chest CT December 02, 2024. Chest radiograph December 09, 2024. CTA of the abdomen an d pelvis December 12, 2024. CT DOSE: 403.3 mGy.cm TECHNIQUE: Axial images of the chest were obtained without IV contrast. Images were reviewed in the axial, sagittal, and coronal planes. IV contrast was not administered for this examination. Automat ed exposure control was utilized for the study. A dose lowering technique was utilized adhering to t he principles of ALARA. FINDINGS: Prominent mediastinal lymph nodes remain unchanged. These are likely benign. The heart is mildly enlarged. There is moderate coronary artery calcification. Extensive atherosclerotic plaque of the thoracic aorta. There is no pericardial effusion. There are small bilateral effusions. There is no pneumothorax. Severe emphysema is present. Left lower lobe collapse has developed since CT of 2014. This was shown on earlier chest CT of December 02, 2024. Subpleural alveolar opacities wi thin the right lungs favor an infectious process. A central obstructing mass is identified. There are no fractures or suspicious lesions within the bony thorax. An infrarenal abdominal aortic aneurysm i s partially imaged on this exam. This is better depicted on the CTA of December 12, 2024. The gallblad jericho is surgically absent. IMPRESSION: 1. Interval development of left lower lobe collapse since CTA of December 12, 2024. 2. Subpleural right lung opacities which favor pneumonia. 3. Small bilateral pleural effusions. 4. Severe emphysema. ACT 112: Negative or not required by law. Electronically signed by: Cheng Arevalo M.D. 12/15/2024 1:08 PM
--- NOTE | 2024-12-15 13:24 | Pharmacy Report ---
Pharmacy Glycemic Short Note 2 - Date of Service December 15, 2024 - Glycemic Short BSG Results (Last 24 hours): 12/14/24 12/14/24 12/15/24 16:16 20:12 07:07 Glucose POC Glucose 184 H 246 H 158 H 12/15/24 12/15/24 07:18 11:21 Glucose 159 H POC Glucose 99 OUTPATIENT ANTIDIABETIC REGIMEN: * Glargine 20 units SC BID * Lispro 8 units SC TIDM * Metformin 1 g PO BID * HbA1c: 7.5% (11/26/24) ASSESSMENT: 12/15/24: * Blood sugars trended up throughout the day yesterday * Received 39 units of insulin (20 units of basal and 19 units of prandial/correctional bolus) * Last dose of prednisone was yesterday 12/14 * Will loosen insulin regimen today in light of steroid discontinuation 12/13/24: * Blood sugars have been labile over past 72 hours with multiple episodes of hypoglycemia * Will allow for some hyperglycemia to minimize likelihood of hypoglycemia * Prednisone has been tapered to 20 mg PO daily 12/10: * Daniella received 72 units of insulin yesterday (45 were basal) * Fasting BSG this AM within goal range, steroids changed from Solumedrol 40mg IV BID to prednisone 30mg Daily x 3 days. Historically patient has been very sensitive to prednisone, specifically referenced admission from 09/15 when patient received 25 units of Lantus and 25 units of NPH with prednisone 40mg. Dosed basal aggressively this AM with 0.3 units/kg insulin NPH and 30 units of Lantus * Unfortunately, hypoglycemic event occurred at lunchtime today, likely due to prandial effects from NPH, carb heavy breakfast with tight CR. Hypoglycemia treated with lunch tray and orange juice. Repeat BSG 46 and D50W 25gm was administered, BSGs rebounded. * Will loosen NovoLog due to hypoglycemic event, will likely need tightened again when NPH effects wear off. 12/09: * Daniella received 87 units of insulin yesterday (45 were basal) * Fasting BSG this AM above goal range, will give all of yesterday's basal dose this AM and allow for additional to be given this evening if BSGs remain elevated. * Correction factor loosened due to large BSG decrease from lunch to dinner yesterday, and carbohydrate ratio tightened due to elevated postprandials * She continues on IV Zosyn and IV Solumedrol 40mg BID, expect insulin requirements to decrease significantly once steroids weaned 12/08: * Received 55 units of insulin yesterday, 30 of which were basal. BSGs were: [phone] mg/dL. * Fasting BSG increased further to 292 mg/dL this AM. Despite doubling dose of basal yesterday, will still increase basal today. Giving 30 units this AM with a small scale at HS to provide equivalent of home dose or slightly stress home dose. * Tightened correction factor and carb ratio this AM to help with steroid- induced postprandial hyperglycemia. Of note, patient received AM Novolog dose in close proximity to lunchtime BSG reading so believe this reading is falsely elevated. Will not make any further adjustments in light of this. 12/07: * Daniella received 22 units of insulin yesterday, 15 of which were basal. BSGs were: [phone] mg/dL. * Fasting BSG this AM is well above goal at 258 mg/dL. Unfortunately, patient was started on an increased dose of steroids last night, SoluMedrol 40 mg IV BID, after the basal insulin had been reduced. This is likely the reasoning for hyperglycemia today. * Will increase basal significantly (max of doubled dose from yesterday). Also tightening Novolog parameters to reflect weight/stress of 3. * Continues to tolerate T2DM diet. Started on Zosyn last evening as well. 12/06: * Patient received total of 50 units of insulin yesterday, of which 25 units were basal insulin * Fasting BSG 124 mg/dL - IV dexamethasone discontinued, will hold AM Lantus and continue with PM scale only as insulin needs likely to be less without steroids 12/03: * 74 yo F w/PMH of CHF, Afib, T2DM presenting w/respiratory failure on 11/25/24. Pharmacy consulted for glycemic management on 12/03/24. * Patients glycemic management has been difficult with a few BSGs in the 300s earlier in the admission and most recently severe hypoglycemia with BSG of 47 yesterday and 39 this morning both requiring treatments. BSG 93 at lunch. Per nursing notes pt has been refusing some of her meals/snacks * With pt's recent hypoglycemia and decreased PO intake will loosen Novolog parameters, increase goal range, and for now, hold pt's Lantus until glucose gets above goal range. PLAN FOR INPATIENT GLYCEMIC CONTROL: * Hold outpatient oral diabetes medications * Basal insulin * Lantus 10 units SC qAM * Lantus 0-5-10 units SC HS (see EHR for details) * Bolus insulin * NovoLog per scale ACHS or Q6hrs while NPO * Goal Range: Low 120 mg/dL - High 150 mg/dL * Correction Factor: 25 mg/dL/unit * Nutritional / Prandial insulin per carb ratio of 1 unit per 9 grams CHO consumed
--- NOTE | 2024-12-15 13:26 | Palliative Care Consultation ---
Date of Consultation December 15, 2024 Assessment & Plan (1) AMS (altered mental status): See HPI. I will attempt a MoCA on her Friday when I am back in the hospital but for now, she does not meet threshold for having decisional capacity. In discussion with the teams today, it was noted her mental status is unchanged from admission 3 weeks ago, is reported to be non-decisional and there was a ?brother in law who came to visit and said that while she does look after to some extent, physically they are both challenged/can barely care for themselves. I worry home may be unsafe at this junction. I suggest trying to find additional family members/NOK. I defer this to care mgt for further assistance. Palliative Medicine will re assess over the next few days. (2) Dyspnea and respiratory abnormalities: (3) Weakness generalized: (4) Anxiety about health: (5) Advanced care planning/counseling discussion: Daniella is unable to engage in meaningful ACP She insists is admitted and she needs to leave She feels she has been here for 1-2 days and kept NPO She wants to leave but perceives we are holding her here. She is unclear what brought her in for this admission but tells me she has pneumonia (6) COPD, very severe: Plan Primary team, nursing, care mgt updated. reccs as noted above. Will need to identify and locate additional NOK decision makers, following [place] Act 169 ordering Thank you for allowing us to participate in the ongoing care of this patient. Please page with any additional concerns. Wyatt Rivera DNP Director, Palliative Medicine History of Present Illness Reason for Consultation: goals of care/ requiring high amounts of oxygen. Attending Physician: Jigar Hein History of Present Illness I saw Daniella earlier this afternoon, she is known to me from prior admissions. Her mental status/cognition seems declined from our 2022 visit. She insisted she arrived yesterday and we have not been letting her eat. She further insists her "has been admitted to [facility] and I need to get over there to see him, no one is telling me anything and he needs me!" She was unable to provide any HPI other than to say she has pneumonia and quit smoking a month ago. She could not recall any of my prior discussions with her. last time I saw her the plan was dc home with hospice but I do not know if this happened, no hospice notes in [facility]. She does not recall any discussion about hospice. Allergies Allergy/AdvReac Type Severity Reaction Status Date / Time diflunisal AdvReac Intermediate HEART RACES Verified 05/23/24 19:23 Home Medications Medication Instructions Recorded Confirmed Type albuterol sulfate 90 mcg/actuation 2 puff inhalation Q6 PRN Shortness 08/28/20 11/25/24 History aerosol inhaler (Ventolin HFA) Of Breath Or Wheezing aspirin 81 mg tablet,delayed 81 mg PO QAM 08/28/20 11/25/24 History release (Uri Low Dose Aspirin) metformin 1,000 mg tablet 1,000 mg PO BID 08/28/20 11/25/24 History blood sugar diagnostic (OneTouch #50 ea 06/02/21 11/25/24 Rx Verio test strips) folic acid 1 mg tablet 1 mg PO QAM 03/24/22 11/25/24 History losartan 50 mg tablet 50 mg PO QAM 03/24/22 11/25/24 History ipratropium 0.5 mg-albuterol 3 mg 3 ml inhalation Q4H PRN shortness 12/13/22 11/25/24 Rx (2.5 mg base)/3 mL nebulization of breath #90 mL soln rosuvastatin 20 mg tablet 20 mg PO QAM 08/23/23 11/25/24 History diltiazem HCl 180 mg 180 mg PO QAM #30 caps 09/10/23 11/25/24 Rx capsule,extended release 24 hr budesonide-formoterol HFA 160 2 puff inhalation BID 09/21/23 11/25/24 History mcg-4.5 mcg/actuation aerosol inhaler pantoprazole 40 mg tablet,delayed 40 mg PO BID #60 tabs 11/24/23 11/25/24 Rx release guaifenesin 600 mg tablet, 1,200 mg PO Q12 PRN Congestion 02/10/24 11/25/24 History extended release 12 hr (Mucinex) cyanocobalamin (vitamin B-12) 500 1,000 mcg (2 x 500 mcg) PO QAM #30 02/13/24 11/25/24 Rx mcg tablet tabs formoterol fumarate 20 mcg/2 mL 20 mcg (2 mL) NEB BIDR #60 mL 02/13/24 11/25/24 Rx solution for nebulization (Perforomist) apixaban 5 mg tablet (Eliquis) 5 mg PO BID 04/30/24 11/25/24 History ferrous sulfate 325 mg (65 mg 325 mg PO BID 04/30/24 11/25/24 History iron) tablet fluticasone furoate 100 1 inh inhalation DAILY 04/30/24 11/25/24 History mcg-vilanterol 25 mcg/dose inhalation powder (Breo Ellipta) furosemide 20 mg tablet 20 mg PO DAILY PRN Edema 04/30/24 11/25/24 History insulin glargine 100 unit/mL (3 20 unit subcut BID 04/30/24 11/25/24 History mL) subcutaneous pen (Lantus Solostar U-100 Insulin) insulin lispro 100 unit/mL 8 unit subcut TID 04/30/24 11/25/24 History subcutaneous pen (Humalog KwikPen (U-100) Insulin) metoprolol succinate 50 mg 50 mg PO BID 04/30/24 11/25/24 History tablet,extended release 24 hr sodium chloride 7 % for 1 inh inhalation BID PRN 04/30/24 11/25/24 History nebulization SOB/WHEEZING oxycodone 5 mg tablet 10 mg (2 x 5 mg) PO TID PRN Pain 05/02/24 11/25/24 Rx #10 tabs budesonide 160 mcg-glycopyr 9 2 inh inhalation BID 05/23/24 11/25/24 History mcg-formot 4.8 mcg/actuation HFA inhaler (Breztri Aerosphere) umeclidinium 62.5 mcg/actuation 1 inh inhalation DAILY 05/23/24 11/25/24 History blister powder for inhalation (Incruse Ellipta) Patient History Medical History (Updated 12/09/24 @ 16:00 by Anthony Santos MD) Anemia Sepsis Acute confusion Severe muscle deconditioning COPD exacerbation Respiratory failure Hyperkalemia Acute hypercapnic respiratory failure TATY (acute kidney injury) AMS (altered mental status) Syncope Acute UTI Acute hypotension Chronic kidney disease, stage 3a Acute kidney injury Acute exacerbation of chronic low back pain Candidiasis of mouth and esophagus DVT prophylaxis Diabetes mellitus COPD (chronic obstructive pulmonary disease) Hypertension Hyperlipidemia Acute on chronic respiratory failure with hypoxia and hypercapnia Family History Other Family history non-contributory Social History Smoking Status: Current every day smoker Tobacco Type: Cigarettes Age Started Using Tobacco: 32; Cigarettes Per Day: 10; Second Hand Exposure: Yes; Do You Dip or Chew Tobacco: No; Hx Alcohol Use: No Hx Substance Use: No Preferred Language: Djiboutian Communication Ability: Effective Accident Report Clerk Required: No Beliefs That Will Affect Care: None marital status: Current Living Situation: Spouse Current Living Situation Comment: With Juan How many Children do You have: 3 Feels Safe at Home: Yes Assistive Devices: Cane, Walker and Wheelchair Review of Systems Review of Systems: All systems reviewed & are unremarkable except as noted in Subjective Physical Exam Physical Exam: Chronically ill female Supine in bed Bitemp wasting, PERRLA, EOMIs pharynx pink, MM dry, dentition poor Neck supple, no stridor Inc resp effort with conversation, diminished breath sounds, few rhonchi, scatt crackles, intermittent cough s1s2 slightly irreg Abd soft, BS+ gen weakness Alert to self confused about place: "I don't know they just dumped me here" Confused about time: "it's probably October" States "I have to get out of here, can you tell them to let me go?My is really sick and he's in the hospital, at [facility] and I have to go take care of him, he needs me!" Results & Data Vital Signs (Past 12 Hours) Vital Signs Temp Pulse Pulse Resp BP BP Pulse Ox 12/15/24 12:49 62 90 22 12/15/24 10:48 36.9 C 59 L 16 104/49 L 97 12/15/24 08:33 12/15/24 07:42 36.4 C L 63 20 132/59 L 96 12/15/24 07:32 66 20 96 12/15/24 03:41 36.8 C 66 18 125/68 94 12/15/24 01:35 59 L 16 97 O2 Del Method O2 Flow Rate 12/15/24 12:49 12/15/24 10:48 Nasal Cannula 6 12/15/24 08:33 Nasal Cannula 6 12/15/24 07:42 Nasal Cannula 6 12/15/24 07:32 Nasal Cannula 6 12/15/24 03:41 Nasal Cannula 12/15/24 01:35 Nasal Cannula 6 Laboratory Results 12/15/24 12/15/24 12/15/24 Range/Units 11:21 07:18 07:07 WBC 6.36 (4.8-10.8) K/ul RBC 2.95 L (4.20-5.40) M/uL Hgb 7.5 L (12.0-16.0) g/dl Hct 25.7 L (37.0-47.0) % MCV 87.1 (80.0-100.0) fL MCH 25.4 (25.0-34.0) pg MCHC 29.2 L (32.0-36.0) g/dL RDW Std Deviation 61.7 H (36.4-46.3) fL RDW Coeff of Dorcas 19.7 H (11.5-14.5) % Plt Count 308 (130-400) K/uL MPV 11.6 (9.4-12.4) fL Immature Gran % (Auto) % Neut % (Auto) % Lymph % (Auto) % [place] % (Auto) % Eos % (Auto) % Baso % (Auto) % Neut # (Auto) (1.40-6.50) K/uL Lymph # (Auto) (1.20-3.40) K/uL [place] # (Auto) (0.11-0.59) K/uL Eos # (Auto) (0.00-0.50) K/uL Baso # (Auto) (0.00-0.20) K/uL Immature Gran # (Auto) (0.01-0.20) K/uL Absolute Nucleated RBC (0.00-0.12) K/uL Nucleated RBC % (auto) % Polychromasia Hypochromasia Tear Drop Cells Ovalocytes Sodium 141 (136-145) mmol/L Potassium 4.0 (3.5-5.1) mmol/L Chloride 104 (98-107) mmol/L Carbon Dioxide 33 H (21-32) mmol/L Anion Gap 4 (3-11) BUN 52 H (6-23) mg/dl Creatinine 1.20 (0.6-1.2) mg/dl Est Cr Clr Drug Dosing 33.5 ml/min eGFR 48.09 BUN/Creatinine Ratio 43.3 H (10-20) Glucose 159 H (70-99(Fasting)) mg/dl POC Glucose 99 158 H (70-99) mg/dl Calcium 8.6 (8.6-10.3) mg/dl Magnesium (1.7-2.4) mg/dl Total Bilirubin 0.2 (0.2-1.0) mg/dl Direct Bilirubin 0.0 (0-0.2) mg/dl AST 29 (13-39) U/L ALT 105 H (7-52) U/L Alkaline Phosphatase 105 H (34-104) U/L C-Reactive Protein < 0.50 (0-0.5) mg/dl B-Natriuretic Peptide 117 H (0-100) pg/ml Total Protein 5.0 L (6.0-8.3) gm/dl Albumin 3.0 L (3.4-5.0) gm/dl Globulin (2.5-4.0) gm/dl Albumin/Globulin Ratio (0.9-2) KERI Screen (NEGATIVE) Anti-Mitochondrial Ab (NEGATIVE) Actin IgG Antibody (<20) U 12/14/24 12/14/24 12/14/24 Range/Units 20:12 16:16 11:23 WBC (4.8-10.8) K/ul RBC (4.20-5.40) M/uL Hgb (12.0-16.0) g/dl Hct (37.0-47.0) % MCV (80.0-100.0) fL MCH (25.0-34.0) pg MCHC (32.0-36.0) g/dL RDW Std Deviation (36.4-46.3) fL RDW Coeff of Dorcas (11.5-14.5) % Plt Count (130-400) K/uL MPV (9.4-12.4) fL Immature Gran % (Auto) % Neut % (Auto) % Lymph % (Auto) % [place] % (Auto) % Eos % (Auto) % Baso % (Auto) % Neut # (Auto) (1.40-6.50) K/uL Lymph # (Auto) (1.20-3.40) K/uL [place] # (Auto) (0.11-0.59) K/uL Eos # (Auto) (0.00-0.50) K/uL Baso # (Auto) (0.00-0.20) K/uL Immature Gran # (Auto) (0.01-0.20) K/uL Absolute Nucleated RBC (0.00-0.12) K/uL Nucleated RBC % (auto) % Polychromasia Hypochromasia Tear Drop Cells Ovalocytes Sodium (136-145) mmol/L Potassium (3.5-5.1) mmol/L Chloride (98-107) mmol/L Carbon Dioxide (21-32) mmol/L Anion Gap (3-11) BUN (6-23) mg/dl Creatinine (0.6-1.2) mg/dl Est Cr Clr Drug Dosing ml/min eGFR BUN/Creatinine Ratio (10-20) Glucose (70-99(Fasting)) mg/dl POC Glucose 246 H 184 H 167 H (70-99) mg/dl Calcium (8.6-10.3) mg/dl Magnesium (1.7-2.4) mg/dl Total Bilirubin (0.2-1.0) mg/dl Direct Bilirubin (0-0.2) mg/dl AST (13-39) U/L ALT (7-52) U/L Alkaline Phosphatase (34-104) U/L C-Reactive Protein (0-0.5) mg/dl B-Natriuretic Peptide (0-100) pg/ml Total Protein (6.0-8.3) gm/dl Albumin (3.4-5.0) gm/dl Globulin (2.5-4.0) gm/dl Albumin/Globulin Ratio (0.9-2) KERI Screen (NEGATIVE) Anti-Mitochondrial Ab (NEGATIVE) Actin IgG Antibody (<20) U 12/14/24 12/14/24 12/13/24 Range/Units 07:28 06:24 20:55 WBC 6.60 (4.8-10.8) K/ul RBC 2.91 L (4.20-5.40) M/uL Hgb 7.5 L (12.0-16.0) g/dl Hct 25.2 L (37.0-47.0) % MCV 86.6 (80.0-100.0) fL MCH 25.8 (25.0-34.0) pg MCHC 29.8 L (32.0-36.0) g/dL RDW Std Deviation 59.8 H (36.4-46.3) fL RDW Coeff of Dorcas 19.2 H (11.5-14.5) % Plt Count 311 (130-400) K/uL MPV 11.1 (9.4-12.4) fL Immature Gran % (Auto) % Neut % (Auto) % Lymph % (Auto) % [place] % (Auto) % Eos % (Auto) % Baso % (Auto) % Neut # (Auto) (1.40-6.50) K/uL Lymph # (Auto) (1.20-3.40) K/uL [place] # (Auto) (0.11-0.59) K/uL Eos # (Auto) (0.00-0.50) K/uL Baso # (Auto) (0.00-0.20) K/uL Immature Gran # (Auto) (0.01-0.20) K/uL Absolute Nucleated RBC (0.00-0.12) K/uL Nucleated RBC % (auto) % Polychromasia Hypochromasia Tear Drop Cells Ovalocytes Sodium 140 (136-145) mmol/L Potassium 4.3 (3.5-5.1) mmol/L Chloride 102 (98-107) mmol/L Carbon Dioxide 33 H (21-32) mmol/L Anion Gap 5 (3-11) BUN 44 H (6-23) mg/dl Creatinine 1.25 H D (0.6-1.2) mg/dl Est Cr Clr Drug Dosing 32.2 ml/min eGFR 45.80 BUN/Creatinine Ratio 35.2 H (10-20) Glucose 112 H (70-99(Fasting)) mg/dl POC Glucose 113 H 146 H (70-99) mg/dl Calcium 8.7 (8.6-10.3) mg/dl Magnesium (1.7-2.4) mg/dl Total Bilirubin 0.3 (0.2-1.0) mg/dl Direct Bilirubin (0-0.2) mg/dl AST 36 (13-39) U/L ALT 133 H (7-52) U/L Alkaline Phosphatase 117 H (34-104) U/L C-Reactive Protein (0-0.5) mg/dl B-Natriuretic Peptide (0-100) pg/ml Total Protein 5.1 L (6.0-8.3) gm/dl Albumin 3.0 L (3.4-5.0) gm/dl Globulin 2.1 L (2.5-4.0) gm/dl Albumin/Globulin Ratio 1.4 (0.9-2) KERI Screen (NEGATIVE) Anti-Mitochondrial Ab (NEGATIVE) Actin IgG Antibody (<20) U 12/13/24 12/13/24 12/13/24 Range/Units 16:20 11:21 07:24 WBC (4.8-10.8) K/ul RBC (4.20-5.40) M/uL Hgb (12.0-16.0) g/dl Hct (37.0-47.0) % MCV (80.0-100.0) fL MCH (25.0-34.0) pg MCHC (32.0-36.0) g/dL RDW Std Deviation (36.4-46.3) fL RDW Coeff of Dorcas (11.5-14.5) % Plt Count (130-400) K/uL MPV (9.4-12.4) fL Immature Gran % (Auto) % Neut % (Auto) % Lymph % (Auto) % [place] % (Auto) % Eos % (Auto) % Baso % (Auto) % Neut # (Auto) (1.40-6.50) K/uL Lymph # (Auto) (1.20-3.40) K/uL [place] # (Auto) (0.11-0.59) K/uL Eos # (Auto) (0.00-0.50) K/uL Baso # (Auto) (0.00-0.20) K/uL Immature Gran # (Auto) (0.01-0.20) K/uL Absolute Nucleated RBC (0.00-0.12) K/uL Nucleated RBC % (auto) % Polychromasia Hypochromasia Tear Drop Cells Ovalocytes Sodium (136-145) mmol/L Potassium (3.5-5.1) mmol/L Chloride (98-107) mmol/L Carbon Dioxide (21-32) mmol/L Anion Gap (3-11) BUN (6-23) mg/dl Creatinine (0.6-1.2) mg/dl Est Cr Clr Drug Dosing ml/min eGFR BUN/Creatinine Ratio (10-20) Glucose (70-99(Fasting)) mg/dl POC Glucose 199 H 261 H 121 H (70-99) mg/dl Calcium (8.6-10.3) mg/dl Magnesium (1.7-2.4) mg/dl Total Bilirubin (0.2-1.0) mg/dl Direct Bilirubin (0-0.2) mg/dl AST (13-39) U/L ALT (7-52) U/L Alkaline Phosphatase (34-104) U/L C-Reactive Protein (0-0.5) mg/dl B-Natriuretic Peptide (0-100) pg/ml Total Protein (6.0-8.3) gm/dl Albumin (3.4-5.0) gm/dl Globulin (2.5-4.0) gm/dl Albumin/Globulin Ratio (0.9-2) KERI Screen (NEGATIVE) Anti-Mitochondrial Ab (NEGATIVE) Actin IgG Antibody (<20) U 12/13/24 12/13/24 12/12/24 Range/Units 06:55 06:44 20:29 WBC 6.90 (4.8-10.8) K/ul RBC 3.05 L (4.20-5.40) M/uL Hgb 7.9 L (12.0-16.0) g/dl Hct 26.3 L (37.0-47.0) % MCV 86.2 (80.0-100.0) fL MCH 25.9 (25.0-34.0) pg MCHC 30.0 L (32.0-36.0) g/dL RDW Std Deviation 60.2 H (36.4-46.3) fL RDW Coeff of Dorcas 19.6 H (11.5-14.5) % Plt Count 327 (130-400) K/uL MPV 11.2 (9.4-12.4) fL Immature Gran % (Auto) 1.2 % Neut % (Auto) 72.8 % Lymph % (Auto) 16.1 % [place] % (Auto) 7.7 % Eos % (Auto) 1.9 % Baso % (Auto) 0.3 % Neut # (Auto) 5.03 (1.40-6.50) K/uL Lymph # (Auto) 1.11 L (1.20-3.40) K/uL [place] # (Auto) 0.53 (0.11-0.59) K/uL Eos # (Auto) 0.13 (0.00-0.50) K/uL Baso # (Auto) 0.02 (0.00-0.20) K/uL Immature Gran # (Auto) 0.08 (0.01-0.20) K/uL Absolute Nucleated RBC (0.00-0.12) K/uL Nucleated RBC % (auto) % Polychromasia Hypochromasia Present Tear Drop Cells Ovalocytes Sodium 139 (136-145) mmol/L Potassium 4.1 (3.5-5.1) mmol/L Chloride 101 (98-107) mmol/L Carbon Dioxide 33 H (21-32) mmol/L Anion Gap 5 (3-11) BUN 43 H (6-23) mg/dl Creatinine 1.56 H (0.6-1.2) mg/dl Est Cr Clr Drug Dosing 25.8 ml/min eGFR 35.10 BUN/Creatinine Ratio 27.6 H (10-20) Glucose 112 H (70-99(Fasting)) mg/dl POC Glucose 143 H 100 H (70-99) mg/dl Calcium 8.7 (8.6-10.3) mg/dl Magnesium (1.7-2.4) mg/dl Total Bilirubin 0.3 (0.2-1.0) mg/dl Direct Bilirubin (0-0.2) mg/dl AST 30 (13-39) U/L ALT 173 H (7-52) U/L Alkaline Phosphatase 127 H (34-104) U/L C-Reactive Protein (0-0.5) mg/dl B-Natriuretic Peptide (0-100) pg/ml Total Protein 5.4 L (6.0-8.3) gm/dl Albumin 3.2 L (3.4-5.0) gm/dl Globulin 2.2 L (2.5-4.0) gm/dl Albumin/Globulin Ratio 1.5 (0.9-2) KERI Screen (NEGATIVE) Anti-Mitochondrial Ab (NEGATIVE) Actin IgG Antibody (<20) U 12/12/24 12/12/24 12/12/24 Range/Units 16:27 11:15 07:21 WBC (4.8-10.8) K/ul RBC (4.20-5.40) M/uL Hgb (12.0-16.0) g/dl Hct (37.0-47.0) % MCV (80.0-100.0) fL MCH (25.0-34.0) pg MCHC (32.0-36.0) g/dL RDW Std Deviation (36.4-46.3) fL RDW Coeff of Dorcas (11.5-14.5) % Plt Count (130-400) K/uL MPV (9.4-12.4) fL Immature Gran % (Auto) % Neut % (Auto) % Lymph % (Auto) % [place] % (Auto) % Eos % (Auto) % Baso % (Auto) % Neut # (Auto) (1.40-6.50) K/uL Lymph # (Auto) (1.20-3.40) K/uL [place] # (Auto) (0.11-0.59) K/uL Eos # (Auto) (0.00-0.50) K/uL Baso # (Auto) (0.00-0.20) K/uL Immature Gran # (Auto) (0.01-0.20) K/uL Absolute Nucleated RBC (0.00-0.12) K/uL Nucleated RBC % (auto) % Polychromasia Hypochromasia Tear Drop Cells Ovalocytes Sodium (136-145) mmol/L Potassium (3.5-5.1) mmol/L Chloride (98-107) mmol/L Carbon Dioxide (21-32) mmol/L Anion Gap (3-11) BUN (6-23) mg/dl Creatinine (0.6-1.2) mg/dl Est Cr Clr Drug Dosing ml/min eGFR BUN/Creatinine Ratio (10-20) Glucose (70-99(Fasting)) mg/dl POC Glucose 122 H 101 H 181 H (70-99) mg/dl Calcium (8.6-10.3) mg/dl Magnesium (1.7-2.4) mg/dl Total Bilirubin (0.2-1.0) mg/dl Direct Bilirubin (0-0.2) mg/dl AST (13-39) U/L ALT (7-52) U/L Alkaline Phosphatase (34-104) U/L C-Reactive Protein (0-0.5) mg/dl B-Natriuretic Peptide (0-100) pg/ml Total Protein (6.0-8.3) gm/dl Albumin (3.4-5.0) gm/dl Globulin (2.5-4.0) gm/dl Albumin/Globulin Ratio (0.9-2) KERI Screen (NEGATIVE) Anti-Mitochondrial Ab (NEGATIVE) Actin IgG Antibody (<20) U 12/12/24 12/11/24 12/11/24 Range/Units 07:08 23:33 20:48 WBC 7.77 (4.8-10.8) K/ul RBC 2.87 L (4.20-5.40) M/uL Hgb 7.5 L (12.0-16.0) g/dl Hct 24.7 L (37.0-47.0) % MCV 86.1 (80.0-100.0) fL MCH 26.1 (25.0-34.0) pg MCHC 30.4 L (32.0-36.0) g/dL RDW Std Deviation 59.3 H (36.4-46.3) fL RDW Coeff of Dorcas 19.3 H (11.5-14.5) % Plt Count 294 (130-400) K/uL MPV 11.2 (9.4-12.4) fL Immature Gran % (Auto) 1.7 % Neut % (Auto) 76.6 % Lymph % (Auto) 13.5 % [place] % (Auto) 6.8 % Eos % (Auto) 1.3 % Baso % (Auto) 0.1 % Neut # (Auto) 5.95 (1.40-6.50) K/uL Lymph # (Auto) 1.05 L (1.20-3.40) K/uL [place] # (Auto) 0.53 (0.11-0.59) K/uL Eos # (Auto) 0.10 (0.00-0.50) K/uL Baso # (Auto) 0.01 (0.00-0.20) K/uL Immature Gran # (Auto) 0.13 (0.01-0.20) K/uL Absolute Nucleated RBC (0.00-0.12) K/uL Nucleated RBC % (auto) % Polychromasia Hypochromasia Present Tear Drop Cells Ovalocytes Sodium 138 (136-145) mmol/L Potassium 4.1 (3.5-5.1) mmol/L Chloride 101 (98-107) mmol/L Carbon Dioxide 32 (21-32) mmol/L Anion Gap 5 (3-11) BUN 51 H (6-23) mg/dl Creatinine 1.47 H (0.6-1.2) mg/dl Est Cr Clr Drug Dosing 27.4 ml/min eGFR 37.70 BUN/Creatinine Ratio 34.7 H (10-20) Glucose 136 H (70-99(Fasting)) mg/dl POC Glucose 134 H 78 (70-99) mg/dl Calcium 8.4 L (8.6-10.3) mg/dl Magnesium 1.9 (1.7-2.4) mg/dl Total Bilirubin 0.3 (0.2-1.0) mg/dl Direct Bilirubin (0-0.2) mg/dl AST 38 (13-39) U/L ALT 212 H (7-52) U/L Alkaline Phosphatase 131 H (34-104) U/L C-Reactive Protein (0-0.5) mg/dl B-Natriuretic Peptide (0-100) pg/ml Total Protein 5.1 L (6.0-8.3) gm/dl Albumin 3.0 L (3.4-5.0) gm/dl Globulin 2.1 L (2.5-4.0) gm/dl Albumin/Globulin Ratio 1.4 (0.9-2) KERI Screen (NEGATIVE) Anti-Mitochondrial Ab (NEGATIVE) Actin IgG Antibody (<20) U 12/11/24 12/11/24 12/11/24 Range/Units 16:12 11:30 07:49 WBC (4.8-10.8) K/ul RBC (4.20-5.40) M/uL Hgb (12.0-16.0) g/dl Hct (37.0-47.0) % MCV (80.0-100.0) fL MCH (25.0-34.0) pg MCHC (32.0-36.0) g/dL RDW Std Deviation (36.4-46.3) fL RDW Coeff of Dorcas (11.5-14.5) % Plt Count (130-400) K/uL MPV (9.4-12.4) fL Immature Gran % (Auto) % Neut % (Auto) % Lymph % (Auto) % [place] % (Auto) % Eos % (Auto) % Baso % (Auto) % Neut # (Auto) (1.40-6.50) K/uL Lymph # (Auto) (1.20-3.40) K/uL [place] # (Auto) (0.11-0.59) K/uL Eos # (Auto) (0.00-0.50) K/uL Baso # (Auto) (0.00-0.20) K/uL Immature Gran # (Auto) (0.01-0.20) K/uL Absolute Nucleated RBC (0.00-0.12) K/uL Nucleated RBC % (auto) % Polychromasia Hypochromasia Tear Drop Cells Ovalocytes Sodium (136-145) mmol/L Potassium (3.5-5.1) mmol/L Chloride (98-107) mmol/L Carbon Dioxide (21-32) mmol/L Anion Gap (3-11) BUN (6-23) mg/dl Creatinine (0.6-1.2) mg/dl Est Cr Clr Drug Dosing ml/min eGFR BUN/Creatinine Ratio (10-20) Glucose (70-99(Fasting)) mg/dl POC Glucose 93 82 98 (70-99) mg/dl Calcium (8.6-10.3) mg/dl Magnesium (1.7-2.4) mg/dl Total Bilirubin (0.2-1.0) mg/dl Direct Bilirubin (0-0.2) mg/dl AST (13-39) U/L ALT (7-52) U/L Alkaline Phosphatase (34-104) U/L C-Reactive Protein (0-0.5) mg/dl B-Natriuretic Peptide (0-100) pg/ml Total Protein (6.0-8.3) gm/dl Albumin (3.4-5.0) gm/dl Globulin (2.5-4.0) gm/dl Albumin/Globulin Ratio (0.9-2) KERI Screen (NEGATIVE) Anti-Mitochondrial Ab (NEGATIVE) Actin IgG Antibody (<20) U 12/11/24 12/11/24 12/10/24 Range/Units 07:21 07:06 20:07 WBC 8.91 (4.8-10.8) K/ul RBC 3.19 L (4.20-5.40) M/uL Hgb 8.2 L (12.0-16.0) g/dl Hct 27.2 L (37.0-47.0) % MCV 85.3 (80.0-100.0) fL MCH 25.7 (25.0-34.0) pg MCHC 30.1 L (32.0-36.0) g/dL RDW Std Deviation 56.8 H (36.4-46.3) fL RDW Coeff of Dorcas 19.0 H (11.5-14.5) % Plt Count 372 (130-400) K/uL MPV 12.0 (9.4-12.4) fL Immature Gran % (Auto) 1.6 % Neut % (Auto) 79.1 % Lymph % (Auto) 12.7 % [place] % (Auto) 5.7 % Eos % (Auto) 0.8 % Baso % (Auto) 0.1 % Neut # (Auto) 7.05 H (1.40-6.50) K/uL Lymph # (Auto) 1.13 L (1.20-3.40) K/uL [place] # (Auto) 0.51 (0.11-0.59) K/uL Eos # (Auto) 0.07 (0.00-0.50) K/uL Baso # (Auto) 0.01 (0.00-0.20) K/uL Immature Gran # (Auto) 0.14 (0.01-0.20) K/uL Absolute Nucleated RBC (0.00-0.12) K/uL Nucleated RBC % (auto) % Polychromasia Hypochromasia Tear Drop Cells Ovalocytes Sodium 142 (136-145) mmol/L Potassium 4.1 (3.5-5.1) mmol/L Chloride 104 (98-107) mmol/L Carbon Dioxide 33 H (21-32) mmol/L Anion Gap 5 (3-11) BUN 50 H (6-23) mg/dl Creatinine 1.48 H (0.6-1.2) mg/dl Est Cr Clr Drug Dosing 27.2 ml/min eGFR 37.39 BUN/Creatinine Ratio 33.8 H (10-20) Glucose 42 L* (70-99(Fasting)) mg/dl POC Glucose 47 L* 158 H (70-99) mg/dl Calcium 8.7 (8.6-10.3) mg/dl Magnesium 1.9 (1.7-2.4) mg/dl Total Bilirubin 0.3 (0.2-1.0) mg/dl Direct Bilirubin (0-0.2) mg/dl AST 48 H (13-39) U/L ALT 295 H (7-52) U/L Alkaline Phosphatase 153 H (34-104) U/L C-Reactive Protein (0-0.5) mg/dl B-Natriuretic Peptide (0-100) pg/ml Total Protein 5.4 L (6.0-8.3) gm/dl Albumin 3.1 L (3.4-5.0) gm/dl Globulin 2.3 L (2.5-4.0) gm/dl Albumin/Globulin Ratio 1.3 (0.9-2) KERI Screen (NEGATIVE) Anti-Mitochondrial Ab (NEGATIVE) Actin IgG Antibody (<20) U 12/10/24 12/10/24 12/10/24 Range/Units 16:21 13:49 13:19 WBC (4.8-10.8) K/ul RBC (4.20-5.40) M/uL Hgb (12.0-16.0) g/dl Hct (37.0-47.0) % MCV (80.0-100.0) fL MCH (25.0-34.0) pg MCHC (32.0-36.0) g/dL RDW Std Deviation (36.4-46.3) fL RDW Coeff of Dorcas (11.5-14.5) % Plt Count (130-400) K/uL MPV (9.4-12.4) fL Immature Gran % (Auto) % Neut % (Auto) % Lymph % (Auto) % [place] % (Auto) % Eos % (Auto) % Baso % (Auto) % Neut # (Auto) (1.40-6.50) K/uL Lymph # (Auto) (1.20-3.40) K/uL [place] # (Auto) (0.11-0.59) K/uL Eos # (Auto) (0.00-0.50) K/uL Baso # (Auto) (0.00-0.20) K/uL Immature Gran # (Auto) (0.01-0.20) K/uL Absolute Nucleated RBC (0.00-0.12) K/uL Nucleated RBC % (auto) % Polychromasia Hypochromasia Tear Drop Cells Ovalocytes Sodium (136-145) mmol/L Potassium (3.5-5.1) mmol/L Chloride (98-107) mmol/L Carbon Dioxide (21-32) mmol/L Anion Gap (3-11) BUN (6-23) mg/dl Creatinine (0.6-1.2) mg/dl Est Cr Clr Drug Dosing ml/min eGFR BUN/Creatinine Ratio (10-20) Glucose (70-99(Fasting)) mg/dl POC Glucose 72 218 H 46 L* (70-99) mg/dl Calcium (8.6-10.3) mg/dl Magnesium (1.7-2.4) mg/dl Total Bilirubin (0.2-1.0) mg/dl Direct Bilirubin (0-0.2) mg/dl AST (13-39) U/L ALT (7-52) U/L Alkaline Phosphatase (34-104) U/L C-Reactive Protein (0-0.5) mg/dl B-Natriuretic Peptide (0-100) pg/ml Total Protein (6.0-8.3) gm/dl Albumin (3.4-5.0) gm/dl Globulin (2.5-4.0) gm/dl Albumin/Globulin Ratio (0.9-2) KERI Screen (NEGATIVE) Anti-Mitochondrial Ab (NEGATIVE) Actin IgG Antibody (<20) U 12/10/24 12/10/24 12/10/24 Range/Units 11:38 07:24 06:53 WBC 9.12 (4.8-10.8) K/ul RBC 3.24 L (4.20-5.40) M/uL Hgb 8.3 L (12.0-16.0) g/dl Hct 28.1 L (37.0-47.0) % MCV 86.7 (80.0-100.0) fL MCH 25.6 (25.0-34.0) pg MCHC 29.5 L (32.0-36.0) g/dL RDW Std Deviation 58.7 H (36.4-46.3) fL RDW Coeff of Dorcas 18.6 H (11.5-14.5) % Plt Count 339 (130-400) K/uL MPV 11.4 (9.4-12.4) fL Immature Gran % (Auto) 1.8 % Neut % (Auto) 79.9 % Lymph % (Auto) 11.1 % [place] % (Auto) 6.1 % Eos % (Auto) 0.9 % Baso % (Auto) 0.2 % Neut # (Auto) 7.29 H (1.40-6.50) K/uL Lymph # (Auto) 1.01 L (1.20-3.40) K/uL [place] # (Auto) 0.56 (0.11-0.59) K/uL Eos # (Auto) 0.08 (0.00-0.50) K/uL Baso # (Auto) 0.02 (0.00-0.20) K/uL Immature Gran # (Auto) 0.16 (0.01-0.20) K/uL Absolute Nucleated RBC 0.02 (0.00-0.12) K/uL Nucleated RBC % (auto) 0.2 % Polychromasia Hypochromasia Tear Drop Cells Ovalocytes Sodium 140 (136-145) mmol/L Potassium 4.6 (3.5-5.1) mmol/L Chloride 104 (98-107) mmol/L Carbon Dioxide 30 (21-32) mmol/L Anion Gap 6 (3-11) BUN 45 H (6-23) mg/dl Creatinine 1.46 H (0.6-1.2) mg/dl Est Cr Clr Drug Dosing 27.5 ml/min eGFR 38.01 BUN/Creatinine Ratio 30.8 H (10-20) Glucose 99 (70-99(Fasting)) mg/dl POC Glucose 68 L* 121 H (70-99) mg/dl Calcium 8.8 (8.6-10.3) mg/dl Magnesium 1.9 (1.7-2.4) mg/dl Total Bilirubin 0.3 (0.2-1.0) mg/dl Direct Bilirubin (0-0.2) mg/dl AST 33 (13-39) U/L ALT 355 H (7-52) U/L Alkaline Phosphatase 176 H (34-104) U/L C-Reactive Protein (0-0.5) mg/dl B-Natriuretic Peptide (0-100) pg/ml Total Protein 5.4 L (6.0-8.3) gm/dl Albumin 3.1 L (3.4-5.0) gm/dl Globulin 2.3 L (2.5-4.0) gm/dl Albumin/Globulin Ratio 1.3 (0.9-2) KERI Screen (NEGATIVE) Anti-Mitochondrial Ab (NEGATIVE) Actin IgG Antibody (<20) U 12/09/24 12/09/24 12/09/24 Range/Units 19:57 16:20 11:17 WBC (4.8-10.8) K/ul RBC (4.20-5.40) M/uL Hgb (12.0-16.0) g/dl Hct (37.0-47.0) % MCV (80.0-100.0) fL MCH (25.0-34.0) pg MCHC (32.0-36.0) g/dL RDW Std Deviation (36.4-46.3) fL RDW Coeff of Dorcas (11.5-14.5) % Plt Count (130-400) K/uL MPV (9.4-12.4) fL Immature Gran % (Auto) % Neut % (Auto) % Lymph % (Auto) % [place] % (Auto) % Eos % (Auto) % Baso % (Auto) % Neut # (Auto) (1.40-6.50) K/uL Lymph # (Auto) (1.20-3.40) K/uL [place] # (Auto) (0.11-0.59) K/uL Eos # (Auto) (0.00-0.50) K/uL Baso # (Auto) (0.00-0.20) K/uL Immature Gran # (Auto) (0.01-0.20) K/uL Absolute Nucleated RBC (0.00-0.12) K/uL Nucleated RBC % (auto) % Polychromasia Hypochromasia Tear Drop Cells Ovalocytes Sodium (136-145) mmol/L Potassium (3.5-5.1) mmol/L Chloride (98-107) mmol/L Carbon Dioxide (21-32) mmol/L Anion Gap (3-11) BUN (6-23) mg/dl Creatinine (0.6-1.2) mg/dl Est Cr Clr Drug Dosing ml/min eGFR BUN/Creatinine Ratio (10-20) Glucose (70-99(Fasting)) mg/dl POC Glucose 143 H 173 H 240 H (70-99) mg/dl Calcium (8.6-10.3) mg/dl Magnesium (1.7-2.4) mg/dl Total Bilirubin (0.2-1.0) mg/dl Direct Bilirubin (0-0.2) mg/dl AST (13-39) U/L ALT (7-52) U/L Alkaline Phosphatase (34-104) U/L C-Reactive Protein (0-0.5) mg/dl B-Natriuretic Peptide (0-100) pg/ml Total Protein (6.0-8.3) gm/dl Albumin (3.4-5.0) gm/dl Globulin (2.5-4.0) gm/dl Albumin/Globulin Ratio (0.9-2) KERI Screen (NEGATIVE) Anti-Mitochondrial Ab (NEGATIVE) Actin IgG Antibody (<20) U 12/09/24 12/09/24 12/08/24 Range/Units 07:15 07:10 20:16 WBC 13.47 H (4.8-10.8) K/ul RBC 3.10 L (4.20-5.40) M/uL Hgb 7.8 L (12.0-16.0) g/dl Hct 26.3 L (37.0-47.0) % MCV 84.8 (80.0-100.0) fL MCH 25.2 (25.0-34.0) pg MCHC 29.7 L (32.0-36.0) g/dL RDW Std Deviation 57.0 H (36.4-46.3) fL RDW Coeff of Dorcas 18.6 H (11.5-14.5) % Plt Count 335 (130-400) K/uL MPV 11.1 (9.4-12.4) fL Immature Gran % (Auto) 1.4 % Neut % (Auto) 89.9 % Lymph % (Auto) 5.1 % [place] % (Auto) 3.5 % Eos % (Auto) 0.0 % Baso % (Auto) 0.1 % Neut # (Auto) 12.11 H (1.40-6.50) K/uL Lymph # (Auto) 0.69 L (1.20-3.40) K/uL [place] # (Auto) 0.47 (0.11-0.59) K/uL Eos # (Auto) 0.00 (0.00-0.50) K/uL Baso # (Auto) 0.01 (0.00-0.20) K/uL Immature Gran # (Auto) 0.19 (0.01-0.20) K/uL Absolute Nucleated RBC (0.00-0.12) K/uL Nucleated RBC % (auto) % Polychromasia 1+ Hypochromasia Tear Drop Cells 1+ Ovalocytes 1+ Sodium 139 (136-145) mmol/L Potassium 5.4 H (3.5-5.1) mmol/L Chloride 103 (98-107) mmol/L Carbon Dioxide 31 (21-32) mmol/L Anion Gap 5 (3-11) BUN 47 H (6-23) mg/dl Creatinine 1.29 H (0.6-1.2) mg/dl Est Cr Clr Drug Dosing 31.2 ml/min eGFR 44.10 BUN/Creatinine Ratio 36.4 H (10-20) Glucose 199 H (70-99(Fasting)) mg/dl POC Glucose 213 H 287 H (70-99) mg/dl Calcium 8.8 (8.6-10.3) mg/dl Magnesium 1.9 (1.7-2.4) mg/dl Total Bilirubin 0.3 (0.2-1.0) mg/dl Direct Bilirubin 0.1 (0-0.2) mg/dl AST 46 H (13-39) U/L ALT 491 H (7-52) U/L Alkaline Phosphatase 207 H (34-104) U/L C-Reactive Protein (0-0.5) mg/dl B-Natriuretic Peptide (0-100) pg/ml Total Protein 5.4 L (6.0-8.3) gm/dl Albumin 3.1 L (3.4-5.0) gm/dl Globulin (2.5-4.0) gm/dl Albumin/Globulin Ratio (0.9-2) KERI Screen (NEGATIVE) Anti-Mitochondrial Ab (NEGATIVE) Actin IgG Antibody (<20) U 12/08/24 12/06/24 Range/Units 16:24 06:24 WBC (4.8-10.8) K/ul RBC (4.20-5.40) M/uL Hgb (12.0-16.0) g/dl Hct (37.0-47.0) % MCV (80.0-100.0) fL MCH (25.0-34.0) pg MCHC (32.0-36.0) g/dL RDW Std Deviation (36.4-46.3) fL RDW Coeff of Dorcas (11.5-14.5) % Plt Count (130-400) K/uL MPV (9.4-12.4) fL Immature Gran % (Auto) % Neut % (Auto) % Lymph % (Auto) % [place] % (Auto) % Eos % (Auto) % Baso % (Auto) % Neut # (Auto) (1.40-6.50) K/uL Lymph # (Auto) (1.20-3.40) K/uL [place] # (Auto) (0.11-0.59) K/uL Eos # (Auto) (0.00-0.50) K/uL Baso # (Auto) (0.00-0.20) K/uL Immature Gran # (Auto) (0.01-0.20) K/uL Absolute Nucleated RBC (0.00-0.12) K/uL Nucleated RBC % (auto) % Polychromasia Hypochromasia Tear Drop Cells Ovalocytes Sodium (136-145) mmol/L Potassium (3.5-5.1) mmol/L Chloride (98-107) mmol/L Carbon Dioxide (21-32) mmol/L Anion Gap (3-11) BUN (6-23) mg/dl Creatinine (0.6-1.2) mg/dl Est Cr Clr Drug Dosing ml/min eGFR BUN/Creatinine Ratio (10-20) Glucose (70-99(Fasting)) mg/dl POC Glucose 105 H (70-99) mg/dl Calcium (8.6-10.3) mg/dl Magnesium (1.7-2.4) mg/dl Total Bilirubin (0.2-1.0) mg/dl Direct Bilirubin (0-0.2) mg/dl AST (13-39) U/L ALT (7-52) U/L Alkaline Phosphatase (34-104) U/L C-Reactive Protein (0-0.5) mg/dl B-Natriuretic Peptide (0-100) pg/ml Total Protein (6.0-8.3) gm/dl Albumin (3.4-5.0) gm/dl Globulin (2.5-4.0) gm/dl Albumin/Globulin Ratio (0.9-2) KERI Screen NEGATIVE (NEGATIVE) Anti-Mitochondrial Ab NEGATIVE (NEGATIVE) Actin IgG Antibody <20 (<20) U Diagnostic Findings Chest X-Ray 11/25/24 05:51 EXAM: XR chest 1V portable CLINICAL HISTORY: RESPIRATORY DISTRESS. TECHNIQUE: An X-ray image of the chest was obtained in 1 view: AP projection. COMPARISON: No prior studies are available for comparison. FINDINGS: Pulmonary Parenchyma: Diffuse bilateral thickened reticulations, fibrotic parenchymal bands and right lower lung zone alveolar shadows. Obliterated right costophrenic angle. No evidence of left pleural effusion or pleural thickening. Heart and Mediastinum: Patient is rotated, mediastinum and cardiac shadow can't be properly assessed. Bony Thorax: Bony thorax appears intact without fractures or deformities. Soft Tissues: Soft tissues overlying the chest wall are unremarkable. IMPRESSION: 1. Diffuse bilateral thickened reticulations, fibrotic parenchymal bands, and right lower lung zone alveolar shadows could be due to interstitial pneumonitis, pulmonary congestion is advised for clinical correlation. 2. Obliterated right costophrenic angle could be either due to pleural effusion, pleural thickening or obscured by lower lung zone opacities. Electronically signed by Bipin Vigil 11-25-2024 06:[address] 11/25/24 22:25 CT OF THE HEAD WITHOUT CONTRAST CLINICAL HISTORY: eval for stroke COMPARISON STUDY: Head CTs September 08, 2023 and November 21, 2023. CT DOSE: 625.8 mGy.cm TECHNIQUE: Helical axial images of the head were obtained without IV contrast. Automated exposure control was utilized for the study. A dose lowering technique was utilized adhering to the principles of ALARA. FINDINGS: No acute intracranial hemorrhage, midline shift or mass effect is present. The ventricular system is unremarkable. The basal cisterns are patent. No extra-axial collections are present. There are no findings to suggest acute dural sinus thrombosis or acute territorial infarct. White matter hypodensities are similar to prior exam and favor small vessel disease. Bilateral basal ganglia calcification is unchanged. IMPRESSION: No acute intracranial findings. ACT 112: Negative or not required by law. Electronically signed by: Cheng Arevalo M.D. 11/26/2024 9:56 AM Chest X-Ray 11/28/24 07:00 EXAM: XR chest 1V portable CLINICAL HISTORY: Narcotic overdose, abnormal hemoglobin, patient is very uncooperative. TECHNIQUE: An X-ray image of the chest was obtained in AP projection. COMPARISON: No prior studies are available for comparison. FINDINGS: Pulmonary Parenchyma: Bilateral prominent bronchovascular markings, could be due to inflammatory process or lung congestion. Tiny nodular density noted at right lower lung zones measures 4 mm, further CT chest is advised. Blunting of the left costophrenic angle could indicate a small effusion. Faint paracardiac opacity noted in the left lower lung zone could indicate mild lung infiltrates. No evidence of right pleural effusion or pleural thickening. Heart and Mediastinum: Heart size and shape are normal. No mediastinal widening or masses. Prominent nodular right hilar shadow which is likely due to vascular congestion, however the possibility of an underlying lesion like hilar lymph node cannot be excluded further CT chest is recommended. Bony Thorax: Osteopenia with right seventh rib irregularity with possible underlying fracture, clinical correlation is advised. Soft Tissues: Soft tissues overlying the chest wall are unremarkable. IMPRESSION: 1. Bilateral prominent bronchovascular markings, could be due to inflammatory process or lung congestion. 2. Tiny nodular density noted at right lower lung zones measures 4 mm, further CT chest is advised. 3. Blunting of the left costophrenic angle could indicate a small effusion. 4. Prominent nodular right hilar shadow which is likely due to vascular congestion, however the possibility of an underlying lesion like hilar lymph node cannot be excluded further CT chest is recommended. 5. Faint paracardiac opacity noted in the left lower lung zone could indicate mild lung infiltrates. 6. Osteopenia with right seventh rib irregularity with possible underlying fracture, clinical correlation is advised. Electronically signed by Bipin Vigil 11-28-2024 07:47 AM Abdomen/Pelvis CT 11/30/24 18:[address] WITH IV CONTRAST CT DOSE: 722.3 mGy.cm HISTORY: epigastric pain TECHNIQUE: Multiaxial CT images of the abdomen and pelvis were performed following the IV administration of 94 cc of Optiray, A dose lowering technique was utilized adhering to the principles of ALARA. COMPARISON STUDY: 05/23/2024 FINDINGS: There are small bilateral pleural effusions, increased in size. There is consolidation of the entire visualized left lower lung lobe, pneumonia versus atelectasis. ABDOMEN: Gallbladder is surgically absent. There are stable splenic calcifications consistent with prior granulomatous disease. Liver and spleen and right adrenal gland are otherwise unremarkable. There is a 1.6 cm nodule at the left adrenal gland, mildly increased in size. There is mildly increased pancreatic ductal dilatation. No gross pancreatic mass seen. No evidence of acute pancreatitis. Kidneys show no hydronephrosis or calculi. There are scattered atherosclerotic calcifications. Infrarenal abdominal aortic aneurysm measures 4.1 cm greatest AP diameter, stable. Pelvis: Gutierrez catheter is present in the urinary bladder is empty. Uterus is absent. No adnexal mass. There is moderate retained stool. There is colonic diverticulosis. No acute diverticulitis. No bowel inflammation or obstruction. No enlarged adenopathy. No free fluid, free air, or abscess. Osseous structures: There is lumbar degenerative disc disease with grade 1 anterolisthesis of L4 on 5 and L5 on S1. There is a stable 2.3 cm sclerotic focus at the proximal right femur, possibly a large bone island. IMPRESSION: 1. Increased small bilateral pleural effusions. Complete consolidation of the visualized left lower lung lobe, pneumonia versus atelectasis. 2. Increased pancreatic ductal dilatation without gross pancreatic mass seen by CT. This is sometimes seen in the setting of tiny mass at the pancreatic head or ampulla of [place] which is below CT resolution. 3. Mildly increased size of the left adrenal nodule. 4. No other acute findings seen. Otherwise as described. ACT 112: Positive. There are findings on this exam that require communication between the performing entity and the patient following Patient Test Result Information Act ([place] Act 112) guidelines. The above report was generated using voice recognition software. It may contain grammatical, syntax or spelling errors. Electronically signed by: Anthony Quiroz M.D. 12/01/2024 11:59 AM Chest CTA 12/02/24 12:54 CT angio chest PE protocol CT DOSE: 619.17 mGy.cm HISTORY: PE. TECHNIQUE: Multiple CTA images of the chest were obtained after the intravenous administration of 90 ml Optiray. Coronal and sagittal MIPS were obtained from the axial data set and were submitted for review. All measurements were obtained according to NASCET criteria. A dose lowering technique was utilized adhering to the principles of ALARA. COMPARISON STUDY: 02/25/2024 FINDINGS: There is severe emphysema. There are small bilateral pleural effusions which layer dependently. There is mucous plugging in the lower lobe airways. There is complete collapse of the left lower lung lobe. No pneumothorax. Stable minimally enlarged precarinal lymph node. No enlarged adenopathy seen. No pericardial effusion. There are scattered coronary artery and aortic calcifications. No thoracic aortic dissection or aneurysm. No pulmonary bolus on. There are mild thoracic spine degenerative changes. IMPRESSION: 1. No pulmonary embolism. 2. Severe emphysema. 3. Mucous plugging in the lower lobe airways with complete collapse of the left lower lung lobe. 4. Small bilateral pleural effusions. ACT 112: Negative or not required by law. The above report was generated using voice recognition software. It may contain grammatical, syntax or spelling errors. Electronically signed by: Anthony Quiroz M.D. 12/02/2024 4:04 PM Liver Ultrasound 12/05/24 14:07 EXAMINATION: US abdomen right upper quadrant COMPARISON: None HISTORY: Abdominal pain TECHNIQUE: The right upper quadrant of the abdomen was scanned in standard fashion with specialized ultrasound transducers using both crabtree scale and limited color Doppler techniques. Findings: Liver: The liver demonstrates increased echogenicity suggesting steatosis, and is enlarged measuring 18.7 cm. No evidence of a focal hepatic mass or intrahepatic biliary ductal dilatation. The main portal vein is patent with antegrade flow. Gallbladder: Cholecystectomy changes Bile Ducts: Both the intra- and extrahepatic biliary system are of normal callber. The common bile duct measures 6.5 mm in diameter. Pancreas: Visualized portions of the head and body of the pancreas are unremarkable. Right kidney: Normal echotexture, without mass or hydronephrosis. Right kidney craniocaudal dimension: 9.5 cm Fluid: No evidence of ascites or pleural effusions. Impression: 1. Hepatic steatosis/hepatomegaly. 2. Cholecystectomy Electronically signed by Lion Yost 12-05-2024 3:33 PM Mesenteric US 12/06/24 00:00 EXAM: US duplex mesenteric CLINICAL HISTORY: New hepatitis, check mesenteric. TECHNIQUE: A Doppler ultrasound was performed to evaluate the mesenteric arteries, including the celiac artery and superior mesenteric artery (SMA). Peak systolic velocities (PSV), end-diastolic velocities (EDV), and resistive indices (RI) were measured. COMPARISON: None. FINDINGS: Abdominal Aorta: Proximal: PSV = 63 cm/s, EDV = 20.2 cm/s, RI = 0.68 Appearance: Tortuous, with plaques noted. Celiac Artery: Origin: PSV = 205 cm/s, EDV = 24.8 cm/s. Suggestive of significant stenosis. Proximal Segment: PSV = 172 cm/s, EDV = 0.6 cm/s Appearance: Plaques and mild tortuosity noted. Superior Mesenteric Artery (SMA): Origin: PSV = 211 cm/s, EDV = 15.0 cm/s Proximal Segment: PSV = 196 cm/s, EDV = 22.1 cm/s Mid-Segment: PSV = 199 cm/s, EDV = 19.1 cm/s Distal Segment: PSV = 93 cm/s, EDV = 3.5 cm/s Mesenteric vessels appear somewhat tortuous, with evidence of plaque deposition affecting flow dynamics. IMPRESSION: 1. Elevated peak systolic velocities in the celiac artery and SMA at the origin and proximal segments, suggestive of hemodynamically significant stenosis. Correlation with CT angiography is advised. 2. Tortuous mesenteric vessels with plaque deposition contributing to altered flow patterns. 3. Distal SMA velocities are within normal limits, suggesting no critical downstream obstruction. Electronically signed by Bipin Vigil 12-06-2024 06:05 AM Chest X-Ray 12/06/24 09:56 XR chest 1V portable CLINICAL HISTORY: hypoxia COMPARISON STUDY: Chest radiograph November 28, 2024. Chest CT December 02, 2024. FINDINGS: There is no pneumothorax. Small bilateral pleural effusions persist. Underlying emphysema is present. Cardiomediastinal silhouette is stable. Bibasilar opacities persist with left lower lobe volume loss. IMPRESSION: 1. Persistent bibasilar opacities with left lower lobe volume loss. The findings could reflect pneumonia, aspiration pneumonitis or atelectasis. 2. No change in small bilateral pleural effusions. 3. Emphysema. ACT 112: Negative or not required by law. Electronically signed by: Cheng Arevalo M.D. 12/06/2024 10:29 AM Chest X-Ray 12/09/24 08:00 XR chest 2V PA/lateral CLINICAL HISTORY: pna TECHNIQUE: 2 views of the chest were obtained. Comparison: Comparison is made to chest radiograph 12/06/2024 FINDINGS: No lines and tubes are seen. Calcified aortic knob is seen. Bilateral lower lung predominant airspace opacities are seen. Small bilateral pleural effusions are seen. IMPRESSION: Small bilateral pleural effusions. Bibasilar airspace opacities likely represent atelectasis, superimposed pneumonia/aspiration cannot be excluded. ACT 112: Negative or not required by law. Electronically signed by: Tushar Souza M.D. 12/09/2024 10:06 AM Videofluoroscopic Swallow 12/10/24 10:30 FL video swallow CLINICAL HISTORY: 74 years-old Female with r/o aspiration. This patient with possible aspiration TECHNIQUE: Video fluoroscopic evaluation of swallowing was performed in the AP and lateral projections by the speech pathology staff. The patient is fed varying consistencies of barium. FLUOROSCOPY TIME: 1.36 minutes. 2051 images were submitted. 9.51 mGy. COMPARISON STUDY: 02/27/2024 FINDINGS: Small amount of silent aspiration noted with thin liquid barium. Laryngeal penetration with nectar consistency. No additional definitive aspiration identified throughout the study. Swallowing function is otherwise within normal limits. IMPRESSION: 1. Aspiration with thin liquid barium. 2. Please see the speech pathologist report for detailed findings and recommendations. ACT 112: Negative or not required by law. Electronically signed by: Israel Sharma M.D. 12/10/2024 12:57 PM Abdomen CTA 12/12/24 11:38 EXAM: CT Angiography Abdomen Without and With Intravenous Contrast INDICATION: Question SMA stenosis on ultrasound. TECHNIQUE: Axial computed tomographic angiography images of the abdomen without and with intravenous contrast. Sagittal and coronal reformatted images were created and reviewed. This CT exam was performed using one or more of the following dose reduction techniques: automated exposure control, adjustment of the mA and/or kV according to patient size, and/or use of iterative reconstruction technique. Oral contrast was administered. MIP reconstructed images were created and reviewed. CONTRAST: 119ml of Optiray 320 was administered intravenously. COMPARISON: Abdominal duplex ultrasound and CT abdomen pelvis 12/06/2024 FINDINGS: Aorta: There is diffuse aortic atherosclerosis. There is stable 4 cm aneurysm of the distal abdominal aorta without hemorrhage or dissection. Celiac trunk and mesenteric arteries: Inferior mesenteric artery is patent. No aneurysm, dissection or stenosis. There is dense atherosclerotic calcification at the origin of the superior mesenteric artery with approximately 75% stenosis at the origin. There are multiple calcific plaques in the horizontal segment with multifocal stenoses of up to 50%. There is mild calcification at the origin of the celiac trunk without significant stenosis. There is calcification in the distal celiac artery just proximal to the hepatic branch. No aneurysm or dissection. Appearance stable. Renal arteries: No acute change noted. No occlusion or significant stenosis. Iliac arteries: Moderate to marked calcific plaque noted in the bilateral common iliac arteries with multifocal l stenoses of up to 50% noted bilaterally. No occlusion. Other veins: Portal and superior mesenteric veins are patent. Lung bases and pleural space: New small bilateral layering pleural effusions. There is airway thickening and consolidation in both lower and right middle lobes. There is a slightly focal masslike consolidate and/or adjacent pleural thickening/fluid in the medial left lung base lateral to the aorta measuring 2.5 x 1.3 x 3.1 cm. Liver: No abnormality noted. No mass. Gallbladder and bile ducts: No abnormality noted. No calcified stones. No ductal dilation. Pancreas: No abnormality noted. No ductal dilation. No mass. Spleen: Stable splenic granulomata. Adrenals: Adenomatous changes of each adrenal gland stable. Kidneys and ureters: No abnormality noted. No obstructing stones. No hydronephrosis. No solid mass. Stomach and bowel: Visualized intestinal loops are normally distributed. There is no thickening or inflammatory process. Moderate amounts of formed stool in the colon and left colonic diverticulosis noted. No obstruction. Intraperitoneal space: No abnormality noted. No significant fluid collection. No free air. Bones/joints: Degenerative changes noted in the scoliotic spine. No acute osseous abnormality noted. Soft tissues: No abnormality noted. No mass. Lymph nodes: No abnormality noted. No enlarged lymph nodes. IMPRESSION: 1. 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 There is approximately 75% stenosis at the origin. There are multifocal up to 50% stenoses in the horizontal segment. 2. 4 cm abdominal aortic aneurysm is stable. No hemorrhage. ACR White Paper guidelines (Diaz, et al. JACR 2013; 10(10):789-05) suggest abdomen/pelvis CT or MR imaging follow-up in 1 years. 3. Dense atherosclerosis of the common iliac arteries with multifocal up to 50% stenoses. 4. Small bilateral pleural effusions and bibasilar airspace consolidation and bronchitis. Somewhat masslike consolidated in the medial left lower lobe likely reflects a confluence of pleural loculation and airspace consolidation. ACT 112: Negative or not required by law. Electronically signed by Arielle Ramirez 12-12-2024 12:[address] 12/15/24 11:13 CT OF THE CHEST WITHOUT IV CONTRAST CLINICAL HISTORY: Recurrent hypoxia. COMPARISON STUDY: Chest CT December 02, 2024. Chest radiograph December 09, 2024. CTA of the abdomen and pelvis December 12, 2024. CT DOSE: 403.3 mGy.cm TECHNIQUE: Axial images of the chest were obtained without IV contrast. Images were reviewed in the axial, sagittal, and coronal planes. IV contrast was not administered for this examination. Automated exposure control was utilized for the study. A dose lowering technique was utilized adhering to the principles of ALARA. FINDINGS: Prominent mediastinal lymph nodes remain unchanged. These are likely benign. The heart is mildly enlarged. There is moderate coronary artery calcification. Extensive atherosclerotic plaque of the thoracic aorta. There is no pericardial effusion. There are small bilateral effusions. There is no pneumothorax. Severe emphysema is present. Left lower lobe collapse has developed since CT of December 12, 2014. This was shown on earlier chest CT of December 02, 2024. Subpleural alveolar opacities within the right lungs favor an infectious process. A central obstructing mass is identified. There are no fractures or suspicious lesions within the bony thorax. An infrarenal abdominal aortic aneurysm is partially imaged on this exam. This is better depicted on the CTA of December 12, 2024. The gallbladder is surgically absent. IMPRESSION: 1. Interval development of left lower lobe collapse since CTA of December 12, 2024. 2. Subpleural right lung opacities which favor pneumonia. 3. Small bilateral pleural effusions. 4. Severe emphysema. ACT 112: Negative or not required by law. Electronically signed by: Cheng Arevalo M.D. 12/15/2024 1:08 PM PG Care Time/CCT Total # of Minutes Spent Total Time Spent: 75 Total Time Spent with Patient: Total time spent is greater than 50% in coordination of care (as documented) at patient's floor/unit and/or counseling patient: [place] [address] IN/OBS CONSULT LVL 5,80M Patient Type New History Comprehensive Exam Comprehensive Medical Decision Making High Complexity Diagnoses AMS (altered mental status) R41.82 Dyspnea and respiratory abnormalities R06.00; R06.89 Weakness generalized R53.1 Anxiety about health F41.8 Advanced care planning/counseling discussion Z71.89 COPD, very severe J44.9
--- NOTE | 2024-12-15 22:15 | Hospitalist Progress Note ---
Date of Service December 15, 2024 Assessment & Plan (1) Acute hypercapnic respiratory failure: (2) CHF (congestive heart failure): (3) Afib: (4) Diabetes type 2, uncontrolled: Plan 74-year-old female who presents with obtundation due acute on chronic respiratory failure with hypercarbia and hypoxemia. Patient continues to be a current smoker. Patient also tested positive for COVID-19. With collapse of LLL on Chest CT 12/02 from mucus plugging Acute on chronic respiratory failure hypercarbia and hypoxemia/Sepsis POA in setting of COVID-19 and UTI and PNA -with a h/o Copd, requiring 9LNC at one point and tachypneic, now weaned down to 7LNC after starting Zosyn and IV SOlu Medrol 12/06, however she has not been mobile at all and is likely still with mucus plugging and collapse of LLL causing hypoxia-now weaned down to 6L. contines to require hih amounts of oxygen when she ambulates. Initially received 10 days of IV dexamethasone and 7 days of ceftriaxone, 1 day of azithro. Ur cx with E. coli-treated with 7 days antibiotics Consult PULM again 12/06--> suspects severe aspiration PNA, started Zosyn and Solu Medrol--> now switched to prednisone 30mg daily- PULM signed off Continue hypertonic saline, bronchodilator and inhaled corticosteroid nebs, continue flutter valve, ICS. SHe refuses vibration due to back pain Continue to wean down O2 as able to keep POx>88%--> she is on 4LNC at home Speech tx consult appreciated- VFSS normal-do not suspect aspiration pneumonia No sputum cxs to follow-she is now coughing up large amounts of sputum-ordered sputum culture but still not collected Follow chest x-ray periodically-CXR 12/09 with pleural effusions and bibasilar atelectasis Wean down prednisone: prednisone 20 mg x 3 days Patient continues to require high amount of oxygen. at rest 6 liters, but on ambulation required [address] chest shows collapsed LLL lung, Paroxysmal Afib/HTN/HFpEF -with last Echo 11/15 Remains in NSR here, BPs controlled to elevated at times, was given IV lasix and some IVFs at various points this hospital stay Continue metoprolol tartrate 25mg po bid, Eliquis 5mg bid With pleural effusions on CXR--> started gentle diuresis with lasix 20mg po qAM Continue to hold losartan for mild TATY which is now improved/stable Continue tele monitoring Shock liver/Epigastric abd pain-2/2 hypotension on admission which is now resolved. 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, multifocal up to 50% stenosis in the horizontal segment --> consider vascular surgery consult 12/13 Doubt the abdominal pain is related to the shock liver but could be however she reports this abdominal pains been ongoing for many months Follow LFTs in AM Need to wean off IV pain meds-discontinued IV morphine, continue po oxycodone 10 mg for post prandial pain--> she continues to ask very frequently for oxycodone GI ordered hep serology-hepatitis ABC negative, KERI, AMA, IgG actin pending With constipation now resolved after large BM on 12/10-continue MiraLAX twice daily, senna/docusate 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 Both held and w/ improvement to 1.2, now back up to 1.4 after starting lasix 20mg po daily but stable. Hyperkalemia now resolved after starting po lasix continue to hold ACEi Continue lokelma, low K+ diet ok to continue lasix 20mg po qAM follow BMP Anemia- Hgb 7.5, no overt GI bleeding, CT abd/pelvis showing ductal dilatation in pancreas, no mass but may have a small lesion. Gastro consulted: patient does not want any intervention. B12, folate normal; Fe studies anemia of chronic disease, TSH normal Follow CBC DMII-->HgbA1C 7.5%. Here with hyperglycemia on steroids and now with hypoglycemia on 12/10 requiring D50 AMp and again on AM of 12/11. Steroids being weaned and likely needed less insulin. Pharmacy is managing HOLD Lantus & continue sliding scale GERD-continue PPI DVT proph-Eliquis updated Admission and Anticipated Discharge Date Admission Date: November 25, 2024 Subjective Pstient with poor retention. Complains of abdominal pain. Physical Exam Physical Exam: Patient is alert and appropriate She is RRR without murmurs heard Abdomen soft, reproducible epigastric tenderness Extremities are without edema Results & Data Results & Data Vital Signs (Past 12 Hours) Vital Signs Temp Pulse Pulse Resp BP Pulse Ox Pulse Ox 12/15/24 21:20 12/15/24 21:20 36.8 C 66 18 100/56 L 94 12/15/24 19:23 36.7 C 59 L 16 103/57 L 97 12/15/24 18:39 66 20 92 12/15/24 15:36 36.4 C L 78 17 104/79 95 12/15/24 14:35 97 12/15/24 12:49 62 90 22 12/15/24 10:48 36.9 C 59 L 16 104/49 L 97 O2 Del Method O2 Del Method O2 Flow Rate 12/15/24 21:20 Nasal Cannula 6 12/15/24 21:20 Nasal Cannula 6 12/15/24 19:23 High Flow Nasal Cannula 12/15/24 18:39 Nasal Cannula 9 12/15/24 15:36 Nasal Cannula 6 12/15/24 14:35 Nasal Cannula 12/15/24 12:49 12/15/24 10:48 Nasal Cannula 6 PG Care Time/CCT Total # of Minutes Spent Total Time Spent with Patient: Total time spent is greater than 50% in coordination of care (as documented) at patient's floor/unit and/or counseling patient: Coding Level of Care Code 47343 SUB INP/OBS CARE 3/50MIN Diagnoses Acute hypercapnic respiratory failure J96.02 CHF (congestive heart failure) I50.9 Afib I48.91 Diabetes type 2, uncontrolled E11.65 Glycemic state: with hyperglycemia (4) Diabetes type 2, uncontrolled Glycemic state: with hyperglycemia Qualified Code(s): E11.65 - Type 2 diabetes mellitus with hyperglycemia
[2024-12-16 08:57] LABS: Hematocrit (blood only) 26.6 % (37.0-47.0); Hemoglobin 7.7 g/dl (12.0-16.0); Mean Corpuscular Hemoglobin 25.7 pg (25.0-34.0); Mean Corpuscular Hgb Conc 28.9 g/dL (32.0-36.0); Mean Corpuscular Volume 88.7 fL (80.0-100.0); Mean Platelet Volume 11.1 fL (9.4-12.4); Platelet Count 306 K/uL (130-400); RDW Coefficient of Variation 19.9 % (11.5-14.5); RDW Standard Deviation 64.3 fL (36.4-46.3); White Blood Count 6.73 K/ul (4.8-10.8)
[2024-12-16 09:17] LABS: C Reactive Protein 0.86 mg/dl (0-0.5); Calcium 8.9 mg/dl (8.6-10.3); Creatinine Clr Calc Pharmacy 30.9 ml/min; Potassium 4.3 mmol/L (3.5-5.1)
--- NOTE | 2024-12-16 22:45 | Hospitalist Progress Note ---
Date of Service December 16, 2024 Assessment & Plan (1) Acute hypercapnic respiratory failure: (2) CHF (congestive heart failure): (3) Afib: (4) Diabetes type 2, uncontrolled: Plan 74-year-old female who presents with obtundation due acute on chronic respiratory failure with hypercarbia and hypoxemia. Patient continues to be a current smoker. Patient also tested positive for COVID-19. With collapse of LLL on Chest CT 12/02 from mucus plugging Acute on chronic respiratory failure hypercarbia and hypoxemia/Sepsis POA in setting of COVID-19 and UTI and PNA -with a h/o Copd, requiring 9LNC at one point and tachypneic, now weaned down to 7LNC after starting Zosyn and IV SOlu Medrol 12/06, however she has not been mobile at all and is likely still with mucus plugging and collapse of LLL causing hypoxia-now weaned down to 6L. contines to require hih amounts of oxygen when she ambulates. Initially received 10 days of IV dexamethasone and 7 days of ceftriaxone, 1 day of azithro. Ur cx with E. coli-treated with 7 days antibiotics Consult PULM again 12/06--> suspects severe aspiration PNA, started Zosyn and Solu Medrol--> now switched to prednisone 30mg daily- PULM signed off Continue hypertonic saline, bronchodilator and inhaled corticosteroid nebs, continue flutter valve, ICS. SHe refuses vibration due to back pain Continue to wean down O2 as able to keep POx>88%--> she is on 4LNC at home Speech tx consult appreciated- VFSS normal-do not suspect aspiration pneumonia No sputum cxs to follow-she is now coughing up large amounts of sputum-ordered sputum culture but still not collected Follow chest x-ray periodically-CXR 12/09 with pleural effusions and bibasilar atelectasis Wean down prednisone: prednisone 20 mg x 3 days Patient continues to require high amount of oxygen. at rest 6 liters, but on ambulation required [address] chest shows collapsed LLL lung, patient on 12/16, required more pain medicine Paroxysmal Afib/HTN/HFpEF -with last Echo 11/15 Remains in NSR here, BPs controlled to elevated at times, was given IV lasix and some IVFs at various points this hospital stay Continue metoprolol tartrate 25mg po bid, Eliquis 5mg bid With pleural effusions on CXR--> started gentle diuresis with lasix 20mg po qAM Continue to hold losartan for mild TATY which is now improved/stable Continue tele monitoring Shock liver/Epigastric abd pain-2/2 hypotension on admission which is now resolved. 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, multifocal up to 50% stenosis in the horizontal segment --> consider vascular surgery consult 12/13 Doubt the abdominal pain is related to the shock liver but could be however she reports this abdominal pains been ongoing for many months Follow LFTs in AM Need to wean off IV pain meds-discontinued IV morphine, continue po oxycodone 10 mg for post prandial pain--> she continues to ask very frequently for oxycodone GI ordered hep serology-hepatitis ABC negative, KERI, AMA, IgG actin pending With constipation now resolved after large BM on 12/10-continue MiraLAX twice daily, senna/docusate TATY/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 Both held and w/ improvement to 1.2, now back up to 1.4 after starting lasix 20mg po daily but stable. Hyperkalemia now resolved after starting po lasix continue to hold ACEi Continue lokelma, low K+ diet ok to continue lasix 20mg po qAM follow BMP Anemia- Hgb 7.5, no overt GI bleeding, CT abd/pelvis showing ductal dilatation in pancreas, no mass but may have a small lesion. Gastro consulted: patient does not want any intervention. B12, folate normal; Fe studies anemia of chronic disease, TSH normal Follow CBC DMII-->HgbA1C 7.5%. Here with hyperglycemia on steroids and now with hypoglycemia on 12/10 requiring D50 AMp and again on AM of 12/11. Steroids being weaned and likely needed less insulin. Pharmacy is managing HOLD Lantus & continue sliding scale GERD-continue PPI DVT proph-Eliquis updated Admission and Anticipated Discharge Date Admission Date: November 25, 2024 Subjective 74 yo female reports no new symptoms. Physical Exam Physical Exam: Patient is alert and appropriate She is RRR without murmurs heard Abdomen soft, reproducible epigastric tenderness Extremities are without edema Results & Data Results & Data Vital Signs (Past 12 Hours) Vital Signs Temp Pulse Resp BP Pulse Ox O2 Del Method O2 Flow Rate 12/16/24 20:30 Nasal Cannula 6 12/16/24 20:28 36.7 C 71 18 100/60 93 High Flow Nasal Cannula 6 12/16/24 19:49 67 18 92 Room Air 7 12/16/24 17:08 90 High Flow Nasal Cannula 14 12/16/24 16:43 83 L Oxymask 10 12/16/24 15:20 90 Oxymask 6 12/16/24 15:09 37.2 C 95 H 20 99/61 L PG Care Time/CCT Total # of Minutes Spent Total Time Spent with Patient: Total time spent is greater than 50% in coordination of care (as documented) at patient's floor/unit and/or counseling patient: Coding Level of Care Code 46804 SUB INP/OBS CARE 2/35MIN Diagnoses Acute hypercapnic respiratory failure J96.02 CHF (congestive heart failure) I50.9 Afib I48.91 Diabetes type 2, uncontrolled E11.65 Glycemic state: with hyperglycemia (4) Diabetes type 2, uncontrolled Glycemic state: with hyperglycemia Qualified Code(s): E11.65 - Type 2 diabetes mellitus with hyperglycemia
[2024-12-17 08:16] LABS: Hematocrit (blood only) 24.1 % (37.0-47.0); Mean Corpuscular Hemoglobin 25.5 pg (25.0-34.0); Mean Corpuscular Volume 87.6 fL (80.0-100.0); Mean Platelet Volume 11.5 fL (9.4-12.4); Platelet Count 302 K/uL (130-400); RDW Standard Deviation 63.9 fL (36.4-46.3); Red Blood Count 2.75 M/uL (4.20-5.40)
[2024-12-17 08:23] LABS: BUN Creatinine Ratio 38.9 (10-20); C Reactive Protein 1.44 mg/dl (0-0.5); Calcium 8.7 mg/dl (8.6-10.3); Creatinine Clr Calc Pharmacy 31.9 ml/min
[2024-12-17] MEDS: LANTUS PER UNIT CHARGE SC ONE (12:12)
--- NOTE | 2024-12-17 14:12 | Pharmacy Report ---
Pharmacy Glycemic Short Note 2 - Date of Service December 17, 2024 - Glycemic Short BSG Results (Last 24 hours): 12/16/24 12/16/24 12/17/24 16:38 20:13 07:52 Glucose 177 H POC Glucose 91 147 H 12/17/24 12/17/24 08:06 11:19 Glucose POC Glucose 225 H 107 H OUTPATIENT ANTIDIABETIC REGIMEN: * Glargine 20 units SC BID * Lispro 8 units SC TIDM * Metformin 1 g PO BID * HbA1c: 7.5% (11/26/24) ASSESSMENT: 12/17: * Daniella received 16 units of insulin yesterday (10 were basal) * Fasting BSG this AM elevated, will give an additional 5 units of basal with lunch and increase total to 15 units daily tomorrow. Continue will additional scale at bedtime if BSGs elevated\ * Loosen correction factor and increase goal range slightly as some BSGs tend to drop quickly 12/15/24: * Blood sugars trended up throughout the day yesterday * Received 39 units of insulin (20 units of basal and 19 units of prandial/correctional bolus) * Last dose of prednisone was yesterday 12/14 * Will loosen insulin regimen today in light of steroid discontinuation 12/13/24: * Blood sugars have been labile over past 72 hours with multiple episodes of hypoglycemia * Will allow for some hyperglycemia to minimize likelihood of hypoglycemia * Prednisone has been tapered to 20 mg PO daily 12/10: * Daniella received 72 units of insulin yesterday (45 were basal) * Fasting BSG this AM within goal range, steroids changed from Solumedrol 40mg IV BID to prednisone 30mg Daily x 3 days. Historically patient has been very sensitive to prednisone, specifically referenced admission from 09/15 when patient received 25 units of Lantus and 25 units of NPH with prednisone 40mg. Dosed basal aggressively this AM with 0.3 units/kg insulin NPH and 30 units of Lantus * Unfortunately, hypoglycemic event occurred at lunchtime today, likely due to prandial effects from NPH, carb heavy breakfast with tight CR. Hypoglycemia treated with lunch tray and orange juice. Repeat BSG 46 and D50W 25gm was administered, BSGs rebounded. * Will loosen NovoLog due to hypoglycemic event, will likely need tightened again when NPH effects wear off. 12/09: * Daniella received 87 units of insulin yesterday (45 were basal) * Fasting BSG this AM above goal range, will give all of yesterday's basal dose this AM and allow for additional to be given this evening if BSGs remain elevated. * Correction factor loosened due to large BSG decrease from lunch to dinner yest erd, and carbohydrate ratio tightened due to elevated postprandials * She continues on IV Zosyn and IV Solumedrol 40mg BID, expect insulin requirements to decrease significantly once steroids weaned 12/08: * Received 55 units of insulin yesterday, 30 of which were basal. BSGs were: 280-400-960-265 mg/dL. * Fasting BSG increased further to 292 mg/dL this AM. Despite doubling dose of basal yesterday, will still increase basal today. Giving 30 units this AM with a small scale at HS to provide equivalent of home dose or slightly stress home dose. * Tightened correction factor and carb ratio this AM to help with steroid- induced postprandial hyperglycemia. Of note, patient received AM Novolog dose in close proximity to lunchtime BSG reading so believe this reading is falsely elevated. Will not make any further adjustments in light of this. 12/07: * Daniella received 22 units of insulin yesterday, 15 of which were basal. BSGs were: 732-503-033-201 mg/dL. * Fasting BSG this AM is well above goal at 258 mg/dL. Unfortunately, patient was started on an increased dose of steroids last night, SoluMedrol 40 mg IV BID, after the basal insulin had been reduced. This is likely the reasoning for hyperglycemia today. * Will increase basal significantly (max of doubled dose from yesterday). Also tightening Novolog parameters to reflect weight/stress of 3. * Continues to tolerate T2DM diet. Started on Zosyn last evening as well. 12/06: * Patient received total of 50 units of insulin yesterday, of which 25 units were basal insulin * Fasting BSG 124 mg/dL - IV dexamethasone discontinued, will hold AM Lantus and continue with PM scale only as insulin needs likely to be less without steroids 12/03: * 74 yo F w/PMH of CHF, Afib, T2DM presenting w/respiratory failure on 11/25/24. Pharmacy consulted for glycemic management on 12/03/24. * Patients glycemic management has been difficult with a few BSGs in the 300s earlier in the admission and most recently severe hypoglycemia with BSG of 47 yesterday and 39 this morning both requiring treatments. BSG 93 at lunch. Per nursing notes pt has been refusing some of her meals/snacks * With pt's recent hypoglycemia and decreased PO intake will loosen Novolog parameters, increase goal range, and for now, hold pt's Lantus until glucose gets above goal range. PLAN FOR INPATIENT GLYCEMIC CONTROL: * Hold outpatient oral diabetes medications * Basal insulin * Lantus 15 units SC qAM * Lantus 0-5 units SC HS (see EHR for details) * Bolus insulin * NovoLog per scale ACHS or Q6hrs while NPO * Goal Range: Low 120 mg/dL - High 150 mg/dL * Correction Factor: 30 mg/dL/unit * Nutritional / Prandial insulin per carb ratio of 1 unit per 9 grams CHO consumed
--- NOTE | 2024-12-17 15:17 | Palliative Care Progress Note ---
Date of Service December 17, 2024 Assessment & Plan (1) Cognitive changes: Plan: I ran a MoCA on Daniella today and she scored 6/30 which is signif cog deficit and she is not decisional. A formal psych eval would be needed if determination of legal competency is desired. I will add a scanned copy of the MoCA to my note and also gave a copy to the front desk receptionist to have added to IOCS by HIM. (2) Dyspnea and respiratory abnormalities: (3) Advanced care planning/counseling discussion: (4) Weakness generalized: (5) Anxiety about health: (6) Palliative care by specialist: (7) COPD, very severe: Plan MoCA test today scored 6/30 which suggests severe cognitive impairment, normal is >26/30. She has significant difficulty in areas of memory, attention, visuospatial skills and executive function. This kind of impairment is typically seen in dementia and other neurodegenerative illness. The score may also potentially reflect impact of medical conditions such as stroke, severe brain injury and other neuro/psych conditions. In addition, her chronic hypoxia an hypercapnia can further impair cognitive fxn and mimic/exacerbate dementia like symptoms. End stage/terminal COPD patients like Daniella are at high risk for delirium which can cause dramatic decline while her generalized fatigue and chronic dyspnea can also lead to a lower score. Since there is high likelihood of a multifactorial cognitive impairment, a comprehensive evaluation for dementia and neurodegenerative illness is recommended. Prognosis overall is very poor and overall, a shift in the focus of her care to more QOL/symptom mgt and comfort would be very appropriate for this terminal COPD patient. Daniella does not have decisional capacity at this time. If concerns for legal competency also exist, please obtain a formal psychiatry consult. Thank you for allowing us to participate in the ongoing care of this patient. Please page with any additional concerns. Wyatt Rivera DNP Director, Palliative Medicine Admission and Anticipated Discharge Date Admission Date: November 25, 2024 Subjective Daniella is awake, lying in bed feels breathing is ok says she misses her and has not seen him for over a month Review of Systems Review of Systems: All systems reviewed & are unremarkable except as noted in Subjective Physical Exam Physical Exam: Chronically ill female Supine in bed Bitemp wasting, PERRLA, EOMIs pharynx pink, MM dry, dentition poor Neck supple, no stridor Inc resp effort with conversation, diminished breath sounds, few rhonchi, scatt crackles, intermittent cough s1s2 slightly irreg Abd soft, BS+ gen weakness Alert to self confused about place and time +confusion Neurologic: MoCA test administered, see scanned copy Daniella scored 05/23 Results & Data Vital Signs (Past 12 Hours) Vital Signs Temp Pulse Resp BP Pulse Ox O2 Del Method O2 Flow Rate 12/17/24 14:59 36.7 C 68 16 127/65 100 High Flow Nasal Cannula 13 12/17/24 13:12 77 20 98 Nasal Cannula 13 12/17/24 08:02 Nasal Cannula, High Flow Nasal Cannula 12/17/24 07:45 36.4 C L 77 16 108/64 93 High Flow Nasal Cannula 6 12/17/24 07:10 84 95 Nasal Cannula 7 PG Care Time/CCT Total # of Minutes Spent Total Time Spent with Patient: Total time spent is greater than 50% in coordination of care (as documented) at patient's floor/unit and/or counseling patient: I spent 70 minutes overall addressing this case: 10 min in medical data review/discussion with referring provider(s) and/or preparation for the visit 30 min in direct interaction with the patient/exam/MoCA administered 00 min in Advance Care Planning/Goals of Care discussions as detailed above in note (must be >16min) 15 min in subsequent review and synthesis of assessment and plan 15 min communicating with other providers regarding the patient's case: nursing, care mgt, primary team Prolonged Care Time Prolonged Care Time: Yes Total Prolonged Care Time: 20 C[place] [address] SUB INP/OBS CARE 3/50MIN (25 - SIGNIFICANT, SEPARATELY IDENTIFIABLE ) Patient Type Established Medical Decision Making High Complexity Diagnoses Cognitive changes R41.89 Dyspnea and respiratory abnormalities R06.00; R06.89 Advanced care planning/counseling discussion Z71.89 Weakness generalized R53.1 Anxiety about health F41.8 Palliative care by specialist Z51.5 COPD, very severe J44.9 Additional Codes Prolonged Care Time - Prolonged Care Time: Yes ([id number])
[2024-12-17 17:46] LABS: Hematocrit (blood only) 24.2 % (37.0-47.0); Hemoglobin 7.2 g/dl (12.0-16.0)
[2024-12-17 22:02] LABS: HCO3 VBG 36 mmol/L; Oxygen Saturation VBG < 60.0 %; PCO2 VBG 58 mmHg (38-50); PO2 VBG 21 mmHg
--- NOTE | 2024-12-17 23:49 | Hospitalist Progress Note ---
Date of Service December 17, 2024 Assessment & Plan (1) Acute hypercapnic respiratory failure: (2) CHF (congestive heart failure): (3) Afib: (4) Diabetes type 2, uncontrolled: Plan 74-year-old female who presents with obtundation due acute on chronic respiratory failure with hypercarbia and hypoxemia. Patient continues to be a current smoker. Patient also tested positive for COVID-19. With collapse of LLL on Chest CT 12/02 from mucus plugging Acute on chronic respiratory failure hypercarbia and hypoxemia/Sepsis POA in setting of COVID-19 and UTI and PNA -with a h/o Copd, requiring 9LNC at one point and tachypneic, now weaned down to 7LNC after starting Zosyn and IV SOlu Medrol 12/06, however she has not been mobile at all and is likely still with mucus plugging and collapse of LLL causing hypoxia-now weaned down to 6L. contines to require hih amounts of oxygen when she ambulates. Initially received 10 days of IV dexamethasone and 7 days of ceftriaxone, 1 day of azithro. Ur cx with E. coli-treated with 7 days antibiotics Consult PULM again 12/06--> suspects severe aspiration PNA, started Zosyn and Solu Medrol--> now switched to prednisone 30mg daily- PULM signed off Continue hypertonic saline, bronchodilator and inhaled corticosteroid nebs, continue flutter valve, ICS. SHe refuses vibration due to back pain Continue to wean down O2 as able to keep POx>88%--> she is on 4LNC at home Speech tx consult appreciated- VFSS normal-do not suspect aspiration pneumonia No sputum cxs to follow-she is now coughing up large amounts of sputum-ordered sputum culture but still not collected Follow chest x-ray periodically-CXR 12/09 with pleural effusions and bibasilar atelectasis Wean down prednisone: prednisone 20 mg x 3 days Patient continues to require high amount of oxygen. at rest 6 liters, but on ambulation required [address] chest shows collapsed LLL lung, patient on 12/16, required more pain medicine Patient cannot make decisions, her oxygen requirements continue to decrease with any movement Paroxysmal Afib/HTN/HFpEF -with last Echo 11/15 Remains in NSR here, BPs controlled to elevated at times, was given IV lasix and some IVFs at various points this hospital stay Continue metoprolol tartrate 25mg po bid, Eliquis 5mg bid With pleural effusions on CXR--> started gentle diuresis with lasix 20mg po qAM Continue to hold losartan for mild TATY which is now improved/stable Continue tele monitoring Shock liver/Epigastric abd pain-2/2 hypotension on admission which is now resolved. 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, multifocal up to 50% stenosis in the horizontal segment --> consider vascular surgery consult 12/13 Doubt the abdominal pain is related to the shock liver but could be however she reports this abdominal pains been ongoing for many months Follow LFTs in AM Need to wean off IV pain meds-discontinued IV morphine, continue po oxycodone 10 mg for post prandial pain--> she continues to ask very frequently for oxycodone GI ordered hep serology-hepatitis ABC negative, KERI, AMA, IgG actin pending With constipation now resolved after large BM on 12/10-continue MiraLAX twice daily, senna/docusate 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 Both held and w/ improvement to 1.2, now back up to 1.4 after starting lasix 20mg po daily but stable. Hyperkalemia now resolved after starting po lasix continue to hold ACEi Continue lokelma, low K+ diet ok to continue lasix 20mg po qAM follow BMP Anemia- Hgb 7.5, no overt GI bleeding, CT abd/pelvis showing ductal dilatation in pancreas, no mass but may have a small lesion. Gastro consulted: patient does not want any intervention. B12, folate normal; Fe studies anemia of chronic disease, TSH normal Follow CBC DMII-->HgbA1C 7.5%. Here with hyperglycemia on steroids and now with hypoglycemia on 12/10 requiring D50 AMp and again on AM of 12/11. Steroids being weaned and likely needed less insulin. 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 Physical Exam Physical Exam: Patient is alert and appropriate She is RRR without murmurs heard Abdomen soft, reproducible epigastric tenderness Extremities are without edema Results & Data Results & Data Vital Signs (Past 12 Hours) Vital Signs Temp Pulse Resp BP BP Pulse Ox O2 Del Method 12/17/24 22:37 72 18 114/60 98 High Flow Nasal Cannula 12/17/24 21:50 69 20 93 High Flow Nasal Cannula 12/17/24 21:27 87 18 128/59 L 68 L High Flow Nasal Cannula 12/17/24 20:24 86 20 100 Nasal Cannula 12/17/24 20:10 High Flow Nasal Cannula 12/17/24 19:26 36.7 C 62 14 106/65 100 Nasal Cannula 12/17/24 14:59 36.7 C 68 16 127/65 100 High Flow Nasal Cannula 12/17/24 13:12 77 20 98 Nasal Cannula O2 Flow Rate FiO2 12/17/24 22:37 40 70 12/17/24 21:50 40 90 12/17/24 21:27 15 12/17/24 20:24 11 12/17/24 20:10 11 12/17/24 19:26 11 12/17/24 14:59 13 12/17/24 13:12 13 PG Care Time/CCT Total # of Minutes Spent Total Time Spent with Patient: Total time spent is greater than 50% in coordination of care (as documented) at patient's floor/unit and/or counseling patient: Coding Level of Care Code 73377 SUB INP/OBS CARE 2/35MIN Diagnoses Acute hypercapnic respiratory failure J96.02 CHF (congestive heart failure) I50.9 Afib I48.91 Diabetes type 2, uncontrolled E11.65 Glycemic state: with hyperglycemia (4) Diabetes type 2, uncontrolled Glycemic state: with hyperglycemia Qualified Code(s): E11.65 - Type 2 diabetes mellitus with hyperglycemia
--- NOTE | 2024-12-18 00:15 | Communication Note ---
Date of Service: December 18, 2024 Notified by RN d/t escalating O2 requirement, patient reportedly with sustained desaturation shortly after neb treatment and even while on 15L. Patient assessed at bedside, resting comfortably, denies respiratory distress or feeling of shortness of breath. Stat VBG demonstrates compensated respiratory acidosis. O2 titrated by RT, now on HFNC 40L/min with FiO2 ratio 70, patient subsequently satting mid-90s.
[2024-12-18 06:12] LABS: Hematocrit (blood only) 24.9 % (37.0-47.0); Hemoglobin 7.3 g/dl (12.0-16.0); Mean Corpuscular Hemoglobin 26.2 pg (25.0-34.0); Mean Corpuscular Hgb Conc 29.3 g/dL (32.0-36.0); Mean Corpuscular Volume 89.2 fL (80.0-100.0); Platelet Count 305 K/uL (130-400); RDW Coefficient of Variation 20.1 % (11.5-14.5); RDW Standard Deviation 65.7 fL (36.4-46.3); Red Blood Count 2.79 M/uL (4.20-5.40); White Blood Count 5.78 K/ul (4.8-10.8)
[2024-12-18 06:32] LABS: BUN Creatinine Ratio 32.3 (10-20); C Reactive Protein 1.49 mg/dl (0-0.5); Calcium 8.8 mg/dl (8.6-10.3); Creatinine Clr Calc Pharmacy 32.4 ml/min; Potassium 3.9 mmol/L (3.5-5.1)
[2024-12-18] MEDS: LANTUS PER UNIT CHARGE SC SCH (08:36)
[2024-12-18] MEDS ORDERED: LANTUS PER UNIT CHARGE SC SCH (09:00)
[2024-12-18] MEDS: CARBOHYDRATES FOR HYPOGLYCEMIA PO PRN (17:00)
--- NOTE | 2024-12-18 23:27 | Hospitalist Progress Note ---
Date of Service December 18, 2024 Assessment & Plan (1) Acute hypercapnic respiratory failure: (2) CHF (congestive heart failure): (3) Afib: (4) Diabetes type 2, uncontrolled: Plan 74-year-old female who presents with obtundation due acute on chronic respiratory failure with hypercarbia and hypoxemia. Patient continues to be a current smoker. Patient also tested positive for COVID-19. With collapse of LLL on Chest CT 12/02 from mucus plugging Acute on chronic respiratory failure hypercarbia and hypoxemia/Sepsis POA in setting of COVID-19 and UTI and PNA -with a h/o Copd, requiring 9LNC at one point and tachypneic, now weaned down to 7LNC after starting Zosyn and IV SOlu Medrol 12/06, however she has not been mobile at all and is likely still with mucus plugging and collapse of LLL causing hypoxia-now weaned down to 6L. contines to require hih amounts of oxygen when she ambulates. Initially received 10 days of IV dexamethasone and 7 days of ceftriaxone, 1 day of azithro. Ur cx with E. coli-treated with 7 days antibiotics Consult PULM again 12/06--> suspects severe aspiration PNA, started Zosyn and Solu Medrol--> now switched to prednisone 30mg daily- PULM signed off Continue hypertonic saline, bronchodilator and inhaled corticosteroid nebs, continue flutter valve, ICS. SHe refuses vibration due to back pain Continue to wean down O2 as able to keep POx>88%--> she is on 4LNC at home Speech tx consult appreciated- VFSS normal-do not suspect aspiration pneumonia Follow chest x-ray periodically-CXR 12/09 with pleural effusions and bibasilar atelectasis completed prednisone course, and completed antibiotics. Patient continues to require high amount of oxygen. at rest 6 liters, but on ambulation required [address] chest shows collapsed LLL lung, Patient still cannot make decisions, her oxygen requirements continue to decr ease with any movement. will maintain on current management. Paroxysmal Afib/HTN/HFpEF -with last Echo 11/15 Remains in NSR here, BPs controlled to elevated at times, was given IV lasix and some IVFs at various points this hospital stay Continue metoprolol tartrate 25mg po bid, Eliquis 5mg bid With pleural effusions on CXR--> started gentle diuresis with lasix 20mg po qAM Continue to hold losartan for mild TATY which is now improved/stable Continue tele monitoring Shock liver/Epigastric abd pain-2/2 hypotension on admission which is now re solved. 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, multifocal up to 50% stenosis in the horizontal segment --> consider vascular surgery consult 12/13 Doubt the abdominal pain is related to the shock liver but could be however she reports this abdominal pains been ongoing for many months Follow LFTs in AM Need to wean off IV pain meds-discontinued IV morphine, continue po oxycodone 10 mg for post prandial pain--> she continues to ask very frequently for oxycodone GI ordered hep serology-hepatitis ABC negative, KERI, AMA, IgG actin pending With constipation now resolved after large BM on 12/10-continue MiraLAX twice daily, senna/docusate 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 Both held and w/ improvement to 1.2, now back up to 1.4 after starting lasix 20mg po daily but stable. Hyperkalemia now resolved after starting po lasix continue to hold ACEi Continue lokelma, low K+ diet ok to continue lasix 20mg po qAM follow BMP Anemia- Hgb 7.5, no overt GI bleeding, CT abd/pelvis showing ductal dilatation in pancreas, no mass but may have a small lesion. Gastro consulted: patient does not want any intervention. B12, folate normal; Fe studies anemia of chronic disease, TSH normal Follow CBC DMII-->HgbA1C 7.5%. Here with hyperglycemia on steroids and now with hypoglycemia on 12/10 requiring D50 AMp and again on AM of 12/11. Steroids being weaned and likely needed less insulin. Pharmacy is managing HOLD Lantus & continue sliding scale GERD-continue PPI DVT proph-Eliquis updated Admission and Anticipated Discharge Date Admission Date: November 25, 2024 Subjective 74 yo female reports no new symptoms. Physical Exam Physical Exam: Patient is alert and appropriate She is RRR without murmurs heard Abdomen soft, reproducible epigastric tenderness Extremities are without edema Results & Data Results & Data Vital Signs (Past 12 Hours) Vital Signs Temp Pulse Pulse Resp BP Pulse Ox O2 Del Method 12/18/24 20:56 117/63 12/18/24 20:20 72 18 90 Nasal Cannula 12/18/24 19:45 High Flow Nasal Cannula 12/18/24 19:36 36.7 C 75 16 112/68 96 Nasal Cannula 12/18/24 15:02 37.0 C 69 18 90/56 L 94 Nasal Cannula 12/18/24 12:41 72 20 91 Nasal Cannula O2 Flow Rate 12/18/24 20:56 12/18/24 20:20 9 12/18/24 19:45 9 12/18/24 19:36 9 12/18/24 15:02 9 12/18/24 12:41 9 PG Care Time/CCT Total # of Minutes Spent Total Time Spent with Patient: Total time spent is greater than 50% in coordination of care (as documented) at patient's floor/unit and/or counseling patient: Coding Level of Care Code 01153 SUB INP/OBS CARE 2/35MIN Diagnoses Acute hypercapnic respiratory failure J96.02 CHF (congestive heart failure) I50.9 Afib I48.91 Diabetes type 2, uncontrolled E11.65 Glycemic state: with hyperglycemia (4) Diabetes type 2, uncontrolled Glycemic state: with hyperglycemia Qualified Code(s): E11.65 - Type 2 diabetes mellitus with hyperglycemia
[2024-12-19 06:58] LABS: Basophils # (auto) 0.03 K/uL (0.00-0.20); Basophils % (auto) 0.6 %; Eosinophils # (auto) 0.21 K/uL (0.00-0.50); Eosinophils % (auto) 4.4 %; Hematocrit (blood only) 23.8 % (37.0-47.0); Hemoglobin 7.1 g/dl (12.0-16.0); Immature Granulocytes # (auto) 0.05 K/uL (0.01-0.20); Lymphocytes # (auto) 0.92 K/uL (1.20-3.40); Lymphocytes % (auto) 19.2 %; Mean Corpuscular Hemoglobin 25.9 pg (25.0-34.0); Mean Corpuscular Hgb Conc 29.8 g/dL (32.0-36.0); Mean Corpuscular Volume 86.9 fL (80.0-100.0); Mean Platelet Volume 11.1 fL (9.4-12.4); Monocytes # (auto) 0.37 K/uL (0.11-0.59); Monocytes % (auto) 7.7 %; Neutrophils % (auto) 67.1 %; Platelet Count 301 K/uL (130-400); RDW Coefficient of Variation 20.4 % (11.5-14.5); RDW Standard Deviation 64.6 fL (36.4-46.3); Red Blood Count 2.74 M/uL (4.20-5.40); White Blood Count 4.78 K/ul (4.8-10.8)
[2024-12-19 07:26] LABS: Anisocytosis Present; Poikilocytosis Present; Polychromasia 1+
[2024-12-19 07:33] LABS: BUN Creatinine Ratio 35.5 (10-20); C Reactive Protein 1.72 mg/dl (0-0.5); Calcium 8.6 mg/dl (8.6-10.3); Creatinine Clr Calc Pharmacy 33.2 ml/min; Potassium 3.5 mmol/L (3.5-5.1)
--- NOTE | 2024-12-19 22:37 | Hospitalist Progress Note ---
Date of Service December 19, 2024 Assessment & Plan (1) Acute hypercapnic respiratory failure: (2) CHF (congestive heart failure): (3) Afib: (4) Diabetes type 2, uncontrolled: Plan 74-year-old female who presents with obtundation due acute on chronic respiratory failure with hypercarbia and hypoxemia. Patient continues to be a current smoker. Patient also tested positive for COVID-19. With collapse of LLL on Chest CT 12/02 from mucus plugging Acute on chronic respiratory failure hypercarbia and hypoxemia/Sepsis POA in setting of COVID-19 and UTI and PNA -with a h/o Copd, requiring 9LNC at one point and tachypneic, now weaned down to 7LNC after starting Zosyn and IV SOlu Medrol 12/06, however she has not been mobile at all and is likely still with mucus plugging and collapse of LLL causing hypoxia-now weaned down to 6L. contines to require hih amounts of oxygen when she ambulates. Initially received 10 days of IV dexamethasone and 7 days of ceftriaxone, 1 day of azithro. Ur cx with E. coli-treated with 7 days antibiotics Consult PULM again 12/06--> suspects severe aspiration PNA, started Zosyn and Solu Medrol--> now switched to prednisone 30mg daily- PULM signed off Continue hypertonic saline, bronchodilator and inhaled corticosteroid nebs, continue flutter valve, ICS. SHe refuses vibration due to back pain Continue to wean down O2 as able to keep POx>88%--> she is on 4LNC at home Speech tx consult appreciated- VFSS normal-do not suspect aspiration pneumonia Follow chest x-ray periodically-CXR 12/09 with pleural effusions and bibasilar atelectasis completed prednisone course, and completed antibiotics. Patient continues to require high amount of oxygen. at rest 6 liters, but on ambulation she becomes hypoxic but is asymptomatic, tolerating [address] chest shows collapsed LLL lung, Patient still cannot make decisions, her oxygen requirements continue to decrease with any movement. will maintain on current management. Paroxysmal Afib/HTN/HFpEF -with last Echo 11/15 Remains in NSR here, BPs controlled to elevated at times, was given IV lasix and some IVFs at various points this hospital stay Continue metoprolol tartrate 25mg po bid, Eliquis 5mg bid With pleural effusions on CXR--> started gentle diuresis with lasix 20mg po qAM Continue to hold losartan for mild TATY which is now improved/stable Continue tele monitoring Shock liver/Epigastric abd pain-2/2 hypotension on admission which is now resolved. 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, multifocal up to 50% stenosis in the horizontal segment --> consider vascular surgery consult 12/13 Doubt the abdominal pain is related to the shock liver but could be however she reports this abdominal pains been ongoing for many months Follow LFTs in AM Need to wean off IV pain meds-discontinued IV morphine, continue po oxycodone 10 mg for post prandial pain--> she continues to ask very frequently for oxycodone GI ordered hep serology-hepatitis ABC negative, KERI, AMA, IgG actin pending With constipation now resolved after large BM on 12/10-continue MiraLAX twice daily, senna/docusate 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 Both held and w/ improvement to 1.2, now back up to 1.4 after starting lasix 20mg po daily but stable. Hyperkalemia now resolved after starting po lasix continue to hold ACEi Continue lokelma, low K+ diet ok to continue lasix 20mg po qAM follow BMP Anemia- Hgb 7.5, no overt GI bleeding, CT abd/pelvis showing ductal dilatation in pancreas, no mass but may have a small lesion. Gastro consulted: patient does not want any intervention. B12, folate normal; Fe studies anemia of chronic disease, TSH normal Follow CBC DMII-->HgbA1C 7.5%. Here with hyperglycemia on steroids and now with hypoglycemia on 12/10 requiring D50 AMp and again on AM of 12/11. Steroids being weaned and likely needed less insulin. Pharmacy is managing HOLD Lantus & continue sliding scale GERD-continue PPI DVT proph-Eliquis updated Admission and Anticipated Discharge Date Admission Date: November 25, 2024 Subjective 74 yo female reports feling better.Patient has maintained at 6 liters all day. Nurse states she does get hypoxic when she ambulates but denies any symptoms. Physical Exam Physical Exam: Patient is alert and appropriate She is RRR without murmurs heard Abdomen soft, reproducible epigastric tenderness Extremities are without edema Results & Data Results & Data Vital Signs (Past 12 Hours) Vital Signs Temp Pulse Pulse Resp BP BP Pulse Ox 12/19/24 21:41 36.5 C 76 18 104/53 L 94 12/19/24 19:54 78 18 92 12/19/24 14:58 37.2 C 73 16 97/57 L 91 12/19/24 12:31 70 22 92 12/19/24 11:54 66 91/53 L O2 Del Method O2 Flow Rate 12/19/24 21:41 High Flow Nasal Cannula 6 12/19/24 19:54 Nasal Cannula 6 12/19/24 14:58 Nasal Cannula 6 12/19/24 12:31 Nasal Cannula 6 12/19/24 11:54 PG Care Time/CCT Total # of Minutes Spent Total Time Spent with Patient: Total time spent is greater than 50% in coordination of care (as documented) at patient's floor/unit and/or counseling patient: Coding Level of Care Code 89954 SUB INP/OBS CARE 2/35MIN Diagnoses Acute hypercapnic respiratory failure J96.02 CHF (congestive heart failure) I50.9 Afib I48.91 Diabetes type 2, uncontrolled E11.65 Glycemic state: with hyperglycemia (4) Diabetes type 2, uncontrolled Glycemic state: with hyperglycemia Qualified Code(s): E11.65 - Type 2 diabetes mellitus with hyperglycemia
[2024-12-20 08:09] LABS: Hematocrit (blood only) 23.8 % (37.0-47.0); Mean Corpuscular Hemoglobin 26.3 pg (25.0-34.0); Mean Corpuscular Hgb Conc 29.4 g/dL (32.0-36.0); Mean Corpuscular Volume 89.5 fL (80.0-100.0); Mean Platelet Volume 10.7 fL (9.4-12.4); Platelet Count 301 K/uL (130-400); RDW Coefficient of Variation 20.5 % (11.5-14.5); RDW Standard Deviation 66.9 fL (36.4-46.3); Red Blood Count 2.66 M/uL (4.20-5.40); White Blood Count 5.49 K/ul (4.8-10.8)
[2024-12-20 08:27] LABS: BUN Creatinine Ratio 26.6 (10-20); C Reactive Protein 1.51 mg/dl (0-0.5); Calcium 8.6 mg/dl (8.6-10.3); Creatinine Clr Calc Pharmacy 32.4 ml/min; Potassium 3.5 mmol/L (3.5-5.1)
--- NOTE | 2024-12-20 12:27 | Pharmacy Report ---
Pharmacy Glycemic Short Note 2 - Date of Service December 20, 2024 - Glycemic Short BSG Results (Last 24 hours): 12/19/24 12/19/24 12/19/24 16:30 16:31 17:31 Glucose POC Glucose 68 L* 70 122 H 12/19/24 12/20/24 12/20/24 20:43 07:37 07:50 Glucose 145 H POC Glucose 266 H 169 H 12/20/24 11:58 Glucose POC Glucose 198 H OUTPATIENT ANTIDIABETIC REGIMEN: * Glargine 20 units SC BID * Lispro 8 units SC TIDM * Metformin 1 g PO BID * HbA1c: 7.5% (11/26/24) ASSESSMENT: 12/20: * BSGs erratic the last 24h: 32-350-113-198mg/dL. Received 12 units of basal and 12 units of bolus insulin yesterday. * Tolerating diet, other stressors stable. * Continue 12 units daily of basal. Novolog loosened the previous 2 days given dinnertime lows. Will continue same for now. BSG goal loosened to 120 -160mg/dl- continue. 12/17: * Daniella received 16 units of insulin yesterday (10 were basal) * Fasting BSG this AM elevated, will give an additional 5 units of basal with lunch and increase total to 15 units daily tomorrow. Continue will additional scale at bedtime if BSGs elevated\ * Loosen correction factor and increase goal range slightly as some BSGs tend to drop quickly 12/15/24: * Blood sugars trended up throughout the day yesterday * Received 39 units of insulin (20 units of basal and 19 units of prandial/correctional bolus) * Last dose of prednisone was yesterday 12/14 * Will loosen insulin regimen today in light of steroid discontinuation 12/13/24: * Blood sugars have been labile over past 72 hours with multiple episodes of hypoglycemia * Will allow for some hyperglycemia to minimize likelihood of hypoglycemia * Prednisone has been tapered to 20 mg PO daily 12/10: * Daniella received 72 units of insulin yesterday (45 were basal) * Fasting BSG this AM within goal range, steroids changed from Solumedrol 40mg IV BID to prednisone 30mg Daily x 3 days. Historically patient has been very sensitive to prednisone, specifically referenced admission from 09/15 when patient received 25 units of Lantus and 25 units of NPH with prednisone 40mg. Dosed basal aggressively this AM with 0.3 units/kg insulin NPH and 30 units of Lantus * Unfortunately, hypoglycemic event occurred at lunchtime today, likely due to prandial effects from NPH, carb heavy breakfast with tight CR. Hypoglycemia treated with lunch tray and orange juice. Repeat BSG 46 and D50W 25gm was administered, BSGs rebounded. * Will loosen NovoLog due to hypoglycemic event, will likely need tightened again when NPH effects wear off. 12/09: * Daniella received 87 units of insulin yesterday (45 were basal) * Fasting BSG this AM above goal range, will give all of yesterday's basal dose this AM and allow for additional to be given this evening if BSGs remain elevated. * Correction factor loosened due to large BSG decrease from lunch to dinner yesterday, and carbohydrate ratio tightened due to elevated postprandials * She continues on IV Zosyn and IV Solumedrol 40mg BID, expect insulin requirements to decrease significantly once steroids weaned 12/08: * Received 55 units of insulin yesterday, 30 of which were basal. BSGs were: 586-366-473-265 mg/dL. * Fasting BSG increased further to 292 mg/dL this AM. Despite doubling dose of basal yesterday, will still increase basal today. Giving 30 units this AM with a small scale at HS to provide equivalent of home dose or slightly stress home dose. * Tightened correction factor and carb ratio this AM to help with steroid- induced postprandial hyperglycemia. Of note, patient received AM Novolog dose in close proximity to lunchtime BSG reading so believe this reading is falsely elevated. Will not make any further adjustments in light of this. 12/07: * Daniella received 22 units of insulin yesterday, 15 of which were basal. BSGs were: 166-699-112-201 mg/dL. * Fasting BSG this AM is well above goal at 258 mg/dL. Unfortunately, patient was started on an increased dose of steroids last night, SoluMedrol 40 mg IV BID, after the basal insulin had been reduced. This is likely the reasoning for hyperglycemia today. * Will increase basal significantly (max of doubled dose from yesterday). Also tightening Novolog parameters to reflect weight/stress of 3. * Continues to tolerate T2DM diet. Started on Zosyn last evening as well. 12/06: * Patient received total of 50 units of insulin yesterday, of which 25 units were basal insulin * Fasting BSG 124 mg/dL - IV dexamethasone discontinued, will hold AM Lantus and continue with PM scale only as insulin needs likely to be less without steroids 12/03: * 74 yo F w/PMH of CHF, Afib, T2DM presenting w/respiratory failure on 11/25/24. Pharmacy consulted for glycemic management on 12/03/24. * Patients glycemic management has been difficult with a few BSGs in the 300s earlier in the admission and most recently severe hypoglycemia with BSG of 47 yesterday and 39 this morning both requiring treatments. BSG 93 at lunch. Per nursing notes pt has been refusing some of her meals/snacks * With pt's recent hypoglycemia and decreased PO intake will loosen Novolog parameters, increase goal range, and for now, hold pt's Lantus until glucose gets above goal range. PLAN FOR INPATIENT GLYCEMIC CONTROL: * Hold outpatient oral diabetes medications * Basal insulin * Lantus 12 units SC qAM * Bolus insulin * NovoLog per scale ACHS or Q6hrs while NPO * Goal Range: Low 120 mg/dL - High 160 mg/dL * Correction Factor: 35 mg/dL/unit * Nutritional / Prandial insulin per carb ratio of 1 unit per 10 grams CHO consumed
--- NOTE | 2024-12-20 21:02 | Communication Note ---
Date of Service: December 20, 2024 Palliative Med Brief Note Attempted to call pt's x 3 today, he did not answer and his voicemail box was full, no message could be left and no additional numbers are in the chart to call. Updated Dr Varner Thank you for allowing us to participate in the ongoing care of this patient. Please page with any additional concerns. Wyatt Rivera DNP Director, Palliative Medicine
--- NOTE | 2024-12-20 21:59 | Hospitalist Progress Note ---
Date of Service December 20, 2024 Assessment & Plan (1) Acute hypercapnic respiratory failure: (2) CHF (congestive heart failure): (3) Afib: (4) Diabetes type 2, uncontrolled: Plan 74-year-old female who presents with obtundation due acute on chronic respiratory failure with hypercarbia and hypoxemia. Patient continues to be a current smoker. Patient also tested positive for COVID-19. With collapse of LLL on Chest CT 12/02 from mucus plugging Acute on chronic respiratory failure hypercarbia and hypoxemia/Sepsis POA in setting of COVID-19 and UTI and PNA -with a h/o Copd, requiring 9LNC at one point and tachypneic, now weaned down to 7LNC after starting Zosyn and IV SOlu Medrol 12/06, however she has not been mobile at all and is likely still with mucus plugging and collapse of LLL causing hypoxia-now weaned down to 6L. contines to require hih amounts of oxygen when she ambulates. Initially received 10 days of IV dexamethasone and 7 days of ceftriaxone, 1 day of azithro. Ur cx with E. coli-treated with 7 days antibiotics Consult PULM again 12/06--> suspects severe aspiration PNA, started Zosyn and Solu Medrol--> now switched to prednisone 30mg daily- PULM signed off Continue hypertonic saline, bronchodilator and inhaled corticosteroid nebs, continue flutter valve, ICS. SHe refuses vibration due to back pain Continue to wean down O2 as able to keep POx>88%--> she is on 4LNC at home Speech tx consult appreciated- VFSS normal-do not suspect aspiration pneumonia completed prednisone course, and completed antibiotics. Patient continues to require high amount of oxygen. at rest 6 liters, but on ambulation she becomes hypoxic but is asymptomatic, tolerating 6 liters. Had discussion with [facility], not accepting patient due to severe end stage emphysema/ possible dementia which I question could be hospital acquired del irium. Patient currently may benefit from rehab as pulmonary states this is likely a slow recovery and will need to ambulate to open up her airways. Patient though is too decompensated for SNF, and now with [facility] denying patient, perhaps discharge home with HIgh O2 centrator vs LTAC vs home with hospice. palliative care consulted. repeat ct chest shows collapsed LLL lung, Patient still cannot make decisions, her oxygen requirements continue to decrease with any movement. will maintain on current management. Paroxysmal Afib/HTN/HFpEF -with last Echo 11/15 Remains in NSR here, BPs controlled to elevated at times, was given IV lasix and some IVFs at various points this hospital stay Continue metoprolol tartrate 25mg po bid, Eliquis 5mg bid With pleural effusions on CXR--> started gentle diuresis with lasix 20mg po qAM Continue to hold losartan for mild TATY which is now improved/stable Shock liver/Epigastric abd pain-2/2 hypotension on admission which is now resolved. 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, multifocal up to 50% stenosis in the horizontal segment --> consider vascular surgery consult 12/13 Doubt the abdominal pain is related to the shock liver but could be however she reports this abdominal pains been ongoing for many months Follow LFTs in AM Need to wean off IV pain meds-discontinued IV morphine, continue po oxycodone 10 mg for post prandial pain--> she continues to ask very frequently for oxycodone GI ordered hep serology-hepatitis ABC negative, KERI, AMA, IgG actin pending With constipation now resolved after large BM on 12/10-continue MiraLAX twice daily, senna/docusate 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 Both held and w/ improvement to 1.2, now back up to 1.4 after starting lasix 20mg po daily but stable. Hyperkalemia now resolved after starting po lasix continue to hold ACEi Continue lokelma, low K+ diet ok to continue lasix 20mg po qAM follow BMP Anemia- Hgb 7.5, no overt GI bleeding, CT abd/pelvis showing ductal dilatation in pancreas, no mass but may have a small lesion. Gastro consulted: patient does not want any intervention. B12, folate normal; Fe studies anemia of chronic disease, TSH normal Follow CBC DMII-->HgbA1C 7.5%. Here with hyperglycemia on steroids and now with hypoglycemia on 12/10 requiring D50 AMp and again on AM of 12/11. Steroids being weaned and likely needed less insulin. Pharmacy is managing HOLD Lantus & continue sliding scale GERD-continue PPI DVT proph-Eliquis updated Admission and Anticipated Discharge Date Admission Date: November 25, 2024 Subjective Patient's mentation appears improved. Still with poor retention. Asking to be discharged. Patient though continues to require high concentrator tank Physical Exam Physical Exam: Patient is alert and appropriate She is RRR without murmurs heard Abdomen soft, reproducible epigastric tenderness Extremities are without edema Results & Data Results & Data Vital Signs (Past 12 Hours) Vital Signs Temp Pulse Resp BP BP Pulse Ox O2 Del Method 12/20/24 19:07 36.8 C 84 18 106/62 94 Nasal Cannula 12/20/24 14:46 36.9 C 80 20 95/60 L 94 Nasal Cannula 12/20/24 13:25 85 18 91 Nasal Cannula O2 Flow Rate 12/20/24 19:07 6 12/20/24 14:46 6 12/20/24 13:25 6 PG Care Time/CCT Total # of Minutes Spent Total Time Spent with Patient: Total time spent is greater than 50% in coordination of care (as documented) at patient's floor/unit and/or counseling patient: Coding Level of Care Code 06152 SUB INP/OBS CARE 3/50MIN Diagnoses Acute hypercapnic respiratory failure J96.02 CHF (congestive heart failure) I50.9 Afib I48.91 Diabetes type 2, uncontrolled E11.65 Glycemic state: with hyperglycemia (4) Diabetes type 2, uncontrolled Glycemic state: with hyperglycemia Qualified Code(s): E11.65 - Type 2 diabetes mellitus with hyperglycemia
[2024-12-21] MEDS: LANTUS PER UNIT CHARGE SC SCH (08:13)
--- NOTE | 2024-12-21 11:06 | Communication Note ---
Date of Service: December 21, 2024 Palliative Med Note Contacted [place] [employer] [facility] and requested a wellness check for pt who has not been reachable for days and pt is not decisional. I provided [employer] with his name, address and phone along with my office phone, they advised they will call after they go to the house. Nursing, care mgt and primary team updated Thank you for allowing us to participate in the ongoing care of this patient. Please page with any additional concerns. Wyatt Rivera DNP Director, Palliative Medicine
--- NOTE | 2024-12-21 12:04 | Pharmacy Report ---
Pharmacy Glycemic Short Note 2 - Date of Service December 21, 2024 - Glycemic Short BSG Results (Last 24 hours): 12/20/24 12/20/24 12/21/24 16:36 20: 07:28 POC Glucose 178 H 157 H 184 H 12/21/24 11:28 POC Glucose 153 H OUTPATIENT ANTIDIABETIC REGIMEN: * Glargine 20 units SC BID * Lispro 8 units SC TIDM * Metformin 1 g PO BID * HbA1c: 7.5% (11/26/24) ASSESSMENT: 12/21: * BSGs [phone]/dL the last 24h. Received 12 units of basal and 18 units of bolus insulin yesterday. * Tolerating diet. * Basal increased slightly to 15 units this AM given mildly elevated fasting BSGs the last couple of days. No change to Novolog. 12/20: * BSGs erratic the last 24h: [phone]/dL. Received 12 units of basal and 12 units of bolus insulin yesterday. * Tolerating diet, other stressors stable. * Continue 12 units daily of basal. Novolog loosened the previous 2 days given dinnertime lows. Will continue same for now. BSG goal loosened to 120-160mg/dl- continue. 12/17: * Daniella received 16 units of insulin yesterday (10 were basal) * Fasting BSG this AM elevated, will give an additional 5 units of basal with lunch and increase total to 15 units daily tomorrow. Continue will additional scale at bedtime if BSGs elevated\ * Loosen correction factor and increase goal range slightly as some BSGs tend to drop quickly 12/15/24: * Blood sugars trended up throughout the day yesterday * Received 39 units of insulin (20 units of basal and 19 units of prandial/correctional bolus) * Last dose of prednisone was yesterday 12/14 * Will loosen insulin regimen today in light of steroid discontinuation 12/13/24: * Blood sugars have been labile over past 72 hours with multiple episodes of hypoglycemia * Will allow for some hyperglycemia to minimize likelihood of hypoglycemia * Prednisone has been tapered to 20 mg PO daily 12/10: * Daniella received 72 units of insulin yesterday (45 were basal) * Fasting BSG this AM within goal range, steroids changed from Solumedrol 40mg IV BID to prednisone 30mg Daily x 3 days. Historically patient has been very sensitive to prednisone, specifically referenced admission from 09/15 when patient received 25 units of Lantus and 25 units of NPH with prednisone 40mg. Dosed basal aggressively this AM with 0.3 units/kg insulin NPH and 30 units of Lantus * Unfortunately, hypoglycemic event occurred at lunchtime today, likely due to prandial effects from NPH, carb heavy breakfast with tight CR. Hypoglycemia treated with lunch tray and orange juice. Repeat BSG 46 and D50W 25gm was administered, BSGs rebounded. * Will loosen NovoLog due to hypoglycemic event, will likely need tightened again when NPH effects wear off. 12/09: * Daniella received 87 units of insulin yesterday (45 were basal) * Fasting BSG this AM above goal range, will give all of yesterday's basal dose this AM and allow for additional to be given this evening if BSGs remain elevated. * Correction factor loosened due to large BSG decrease from lunch to dinner yesterday, and carbohydrate ratio tightened due to elevated postprandials * She continues on IV Zosyn and IV Solumedrol 40mg BID, expect insulin requirements to decrease significantly once steroids weaned 12/08: * Received 55 units of insulin yesterday, 30 of which were basal. BSGs were: [phone] mg/dL. * Fasting BSG increased further to 292 mg/dL this AM. Despite doubling dose of basal yesterday, will still increase basal today. Giving 30 units this AM with a small scale at HS to provide equivalent of home dose or slightly stress home dose. * Tightened correction factor and carb ratio this AM to help with steroid- induced postprandial hyperglycemia. Of note, patient received AM Novolog dose in close proximity to lunchtime BSG reading so believe this reading is falsely elevated. Will not make any further adjustments in light of this. 12/07: * Daniella received 22 units of insulin yesterday, 15 of which were basal. BSGs were: [phone] mg/dL. * Fasting BSG this AM is well above goal at 258 mg/dL. Unfortunately, patient was started on an increased dose of steroids last night, SoluMedrol 40 mg IV BID, after the basal insulin had been reduced. This is likely the reasoning for hyperglycemia today. * Will increase basal significantly (max of doubled dose from yesterday). Also tightening Novolog parameters to reflect weight/stress of 3. * Continues to tolerate T2DM diet. Started on Zosyn last evening as well. 12/06: * Patient received total of 50 units of insulin yesterday, of which 25 units were basal insulin * Fasting BSG 124 mg/dL - IV dexamethasone discontinued, will hold AM Lantus and continue with PM scale only as insulin needs likely to be less without steroids 12/03: * 74 yo F w/PMH of CHF, Afib, T2DM presenting w/respiratory failure on 11/25/24. Pharmacy consulted for glycemic management on 12/03/24. * Patients glycemic management has been difficult with a few BSGs in the 300s earlier in the admission and most recently severe hypoglycemia with BSG of 47 yesterday and 39 this morning both requiring treatments. BSG 93 at lunch. Per nursing notes pt has been refusing some of her meals/snacks * With pt's recent hypoglycemia and decreased PO intake will loosen Novolog pa rameters, increase goal range, and for now, hold pt's Lantus until glucose gets above goal range. PLAN FOR INPATIENT GLYCEMIC CONTROL: * Hold outpatient oral diabetes medications * Basal insulin * Lantus 15 units SC qAM * Bolus insulin * NovoLog per scale ACHS or Q6hrs while NPO * Goal Range: Low 120 mg/dL - High 160 mg/dL * Correction Factor: 35 mg/dL/unit * Nutritional / Prandial insulin per carb ratio of 1 unit per 10 grams CHO consumed
--- NOTE | 2024-12-21 14:45 | Hospitalist Progress Note ---
Date of Service December 21, 2024 Assessment & Plan (1) Acute hypercapnic respiratory failure: (2) Pneumonia: (3) CHF (congestive heart failure): (4) Afib: Plan 74-year-old female who presents with obtundation due acute on chronic respiratory failure with hypercarbia and hypoxemia. Patient continues to be a current smoker. Patient also tested positive for COVID-19. With collapse of LLL on Chest CT from mucus plugging and PNA Acute on chronic respiratory failure hypercarbia and hypoxemia/Sepsis POA in setting of COVID-19 and UTI and PNA -with a h/o Copd, requiring 9LNC at one point and tachypneic, now weaned down to 6LNC after treatment with Zosyn, azithro, IV decadron and then later IV Solu Medrol, but still has some brief desats with exertion. Ur cx with E. coli-treated with 7 days antibiotics. Consult PULM --> suspected severe aspiration PNA, however she did pass her Speech eval without aspiration Repeat Chest CT again 12/15 shows collapsed LLL -Continue hypertonic saline, bronchodilator and inhaled corticosteroid nebs, continue flutter valve, ICS. SHe refuses vibration due to back pain -Continue to wean down O2 as able to keep POx>88%--> she is on 4LNC at home Paroxysmal Afib/HTN/HFpEF -with last Echo 11/15 Remained in NSR here and has since been downgraded off tele unit. BPs controlled -Continue metoprolol tartrate 25mg po bid, Eliquis 5mg bid -With pleural effusions on CXR--> started gentle diuresis with lasix 20mg po qAM -Continue to hold losartan for mild TATY which is now improved/stable Shock liver/Epigastric abd pain/Mesenteric artery stenosis-2/2 hypotension on admission which is now resolved. AST/ALT in 1999s, ALK phos in 300s--> trended downward, INR 1.2, GI ordered hep serology-hepatitis ABC negative, KERI, AMA, IgG actin all negative Liver US with hepatomegaly mild and fatty liver, s/p cholecystectomy, otherwise normal. 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 Both held and w/ improvement. Hyperkalemia now resolved after starting po lasix and received Lokelma -continue to hold ACEi and lasix 20mg po qAM -follow BMP Anemia- Hgb down to 7.0 and stable from previous, no overt GI bleeding, CT abd/pelvis showing ductal dilatation in pancreas, no mass but may have a small lesion. Gastro consulted: patient does not want any intervention. B12, folate normal; Fe studies anemia of chronic disease, TSH normal Repeat Fe studies now worse later in stay with trnasferrin sat 5% -Follow CBC -give IV Venofer 300mg x 1 on 12/21 DMII-->HgbA1C 7.5%.Controlled, Pharmacy is managing GERD-continue PPI DVT proph-Eliquis Dispo-pt stable for dc to SNF-multiple attempts to get a hold of by CM, Palliative Med have been largely unsuccessful. OOA to ask neighbor to do wellness check and Palliative also contacted state police on 12/21 to do wellness check. Pt not able to make own decisions at this point Admission and Anticipated Discharge Date Admission Date: November 25, 2024 Subjective Pt has no complaints except wants to know when she can go home She has been out of bed to the bathroom with assistance which is a huge improvement since I last saw her. Has no complaints of abd pain Physical Exam Constitutional: no acute distress Eyes: + anicteric sclerae Respiratory: not tachypneic Auscultation: + diminished lung sounds (left base) and + crackles; no wheezes Cardiovascular: Rate/Rhythm: regular rate and regular rhythm Heart Sounds: no murmur Extremities: no edema Gastrointestinal (Abdomen): Inspection/Auscultation: normal bowel sounds Percussion/Palpation: abdomen soft; abdomen nontender Psychiatric: Orientation: alert, oriented to person, oriented to place and cooperative; + not oriented to time Results & Data Results & Data Vital Signs (Past 12 Hours) Vital Signs Temp Pulse Pulse Resp BP Pulse Ox O2 Del Method 12/21/24 14:21 36.9 C 80 18 117/66 91 Nasal Cannula 12/21/24 13:28 77 20 94 Nasal Cannula 12/21/24 11:12 94 12/21/24 07:58 High Flow Nasal Cannula 12/21/24 07:30 80 18 94 Nasal Cannula 12/21/24 07:05 37.0 C 73 18 110/74 97 Nasal Cannula O2 Flow Rate 12/21/24 14:21 6.0 12/21/24 13:28 6 12/21/24 11:12 7 12/21/24 07:58 6.5 12/21/24 07:30 6 12/21/24 07:05 6.0 PG Care Time/CCT Total # of Minutes Spent Total Time Spent with Patient: Total time spent is greater than 50% in coordination of care (as documented) at patient's floor/unit and/or counseling patient: Coding Level of Care Code 65685 SUB INP/OBS CARE 2/35MIN Diagnoses Acute hypercapnic respiratory failure J96.02 Pneumonia J18.9 Laterality: right Lung location: lower lobe of lung Pneumonia type: due to unspecified organism CHF (congestive heart failure) I50.9 Afib I48.91 (2) Pneumonia Laterality: right Lung location: lower lobe of lung Pneumonia type: due to unspecified organism Qualified Code(s): J18.9 - Pneumonia, unspecified organism
[2024-12-21] MEDS: IRON SUCROSE 300 MG in SODIUM CHLORIDE 0.9% 250 ML IV ONE (16:37)
[2024-12-22 07:12] LABS: Basophils # (auto) 0.03 K/uL (0.00-0.20); Basophils % (auto) 0.5 %; Eosinophils # (auto) 0.37 K/uL (0.00-0.50); Eosinophils % (auto) 5.7 %; Hematocrit (blood only) 23.8 % (37.0-47.0); Immature Granulocytes # (auto) 0.05 K/uL (0.01-0.20); Immature Granulocytes % (auto) 0.8 %; Lymphocytes # (auto) 0.91 K/uL (1.20-3.40); Mean Corpuscular Hgb Conc 29.4 g/dL (32.0-36.0); Mean Corpuscular Volume 88.5 fL (80.0-100.0); Mean Platelet Volume 10.7 fL (9.4-12.4); Monocytes % (auto) 7.7 %; Neutrophils # (auto) 4.64 K/uL (1.40-6.50); Neutrophils % (auto) 71.3 %; Platelet Count 331 K/uL (130-400); RDW Coefficient of Variation 20.3 % (11.5-14.5); RDW Standard Deviation 64.8 fL (36.4-46.3); Red Blood Count 2.69 M/uL (4.20-5.40)
[2024-12-22 07:36] LABS: BUN Creatinine Ratio 23.5 (10-20); Calcium 8.6 mg/dl (8.6-10.3); Creatinine Clr Calc Pharmacy 33.8 ml/min; Magnesium 1.6 mg/dl (1.7-2.4); Potassium 3.3 mmol/L (3.5-5.1)
[2024-12-22 07:44] LABS: Acanthocytes 1+; Ovalocytes 1+; Polychromasia 1+
--- NOTE | 2024-12-22 09:14 | XRay Report ---
XR chest 2V PA/lateral CLINICAL HISTORY: f/u [facility] COMPARISON STUDY: 12/09/2024 FINDINGS: There is stable mild cardiomegaly with mild pulmonary vascular congestion. There is increas ed opacity in the lung bases with blunting of the costophrenic angles and obscuration of the right he midiaphragm. No pneumothorax. IMPRESSION: Increased pleural effusions and pulmonary consolidation in the lung bases, right greater than left. ACT 112: Negative or not required by law. Electronically signed by: Anthony Quiroz M.D. 12/22/2024 9:12 AM
[2024-12-22] MEDS: IRON SUCROSE 300 MG in SODIUM CHLORIDE 0.9% 250 ML IV ONE (09:57)
[2024-12-22] MEDS: POLYETHYLENE (MIRALAX) 17 GM PACK PO SCH (10:02)
[2024-12-22] MEDS: DOCUSATE SODIUM/SENNA 50/8.6MG TAB PO SCH (10:02)
--- NOTE | 2024-12-22 10:42 | Palliative Care Progress Note ---
Date of Service December 22, 2024 Assessment & Plan (1) Cognitive changes: (2) Advanced care planning/counseling discussion: Plan: Spoke with Juan by phone for 30 min for a telephonic ACP, he is unable to come to the hospital due to distance. He was having issues with his phone and required several aspects of our conversation repeated. We spoke about Daniella's decline, high oxygen needs, poor exercise tolerance, and overall she has terminal COPD. he agreed with this and adds that things have been getting worse for some time. We talked about the un-fixability of issues at this junction because the disease is progressive and incurable. He expressed understanding. I told him about the MoCA results and he told me she has been "slipping" for a while, gets confused a lot and he feels maybe they are both "getting old timers disease." We discussed options including trial of rehab at SNF she qualifies with transition and overall goal of comfort as focus. 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 We discussed code status. I advised him she is not at a place in illness where CPR will add meaningful benefit, she will not return to a better QOL or higher PS following adv life support. He was in agreement and elected DNR/DNI. Code order changed. We talked about her COPD is now terminal, end stage disease and not curable. I provided education about the hospice benefit: an interdisciplinary program offered by nurses, nurses aides, social workers, chaplains and a certified ophthalmic medical technician for patients with a terminal condition and a life expectancy of less than 6 months. This is covered by Medicare at 100%/no out of pocket expense to patient and all meds/supplies needed by patient for the reason they are on hospice are paid for/covered by hospice. The goal is assure quality of life of the patient in their home setting (home, [place] [facility], inpatient hospice setting) by providing symptoms management, psychosocial and spiritual support. However, they cannot offer 24 hours care and if the family is unable to provide that care, they will have to consider personal care with out of pocket cost vs. [place] [facility] placement. We discussed the goals of hospice as a patient service and the goals of care; we discussed EOL trajectories and transitions estrella the emotional impact of realizing mortality as a concrete reality from prior abstract considerations. Pt was reassured that no matter where they are along this trajectory, they are not alone - their medical team will remain by their side through their journey. Discussed the pros/cons of accepting help when especially weakened and distressed by pain-which would also help provide relief/decrease caregiver burden/strain. Carlos advised he is going to get his phone fixed and asked if Marcellus can call him back in 1 hr (3) Encounter for hospice care discussion: (4) Palliative care by specialist: (5) Weakness generalized: (6) COPD, very severe: Plan As above Thank you for allowing us to participate in the ongoing care of this patient. Please page with any additional concerns. Wyatt Rivera DNP Director, Palliative Medicine Admission and Anticipated Discharge Date Admission Date: November 25, 2024 Subjective daniella is confused at times has trouble following detailed or complex conversation able to answer simple questions denies acute pain chronically SOB, BATES with min exertion/signif desat with exertion, continues to requrie 6lpm NC at rest appetite ok BM near daily with bowel regimen on board denies acute pain Review of Systems Review of Systems: Unobtainable due to cognitive status Physical Exam Physical Exam: Chronically ill female Supine in bed Bitemp wasting, PERRLA, EOMIs pharynx pink, MM dry, dentition poor Neck supple, no stridor Inc resp effort with conversation, diminished breath sounds, few rhonchi, scatt crackles, intermittent cough s1s2 slightly irreg Abd soft, BS+ gen weakness Alert to self confused about place and time +confusion Neurologic: MoCA test administered, see scanned copy Daniella scored 05/23 Results & Data Vital Signs (Past 12 Hours) Vital Signs Temp Pulse Resp BP Pulse Ox O2 Del Method O2 Flow Rate 12/22/24 08:45 High Flow Nasal Cannula 6 12/22/24 07:34 37.1 C 84 18 127/60 94 High Flow Nasal Cannula 6 12/22/24 07:03 76 18 94 Nasal Cannula 6 12/22/24 01:40 78 18 90 Nasal Cannula 6 Laboratory Results 12/22/24 12/22/24 12/22/24 Range/Units 20:35 17:30 16:53 WBC (4.8-10.8) K/ul RBC (4.20-5.40) M/uL Hgb (12.0-16.0) g/dl Hct (37.0-47.0) % MCV (80.0-100.0) fL MCH (25.0-34.0) pg MCHC (32.0-36.0) g/dL RDW Std Deviation (36.4-46.3) fL RDW Coeff of Dorcas (11.5-14.5) % Plt Count (130-400) K/uL MPV (9.4-12.4) fL Immature Gran % (Auto) % Neut % (Auto) % Lymph % (Auto) % [place] % (Auto) % Eos % (Auto) % Baso % (Auto) % Neut # (Auto) (1.40-6.50) K/uL Lymph # (Auto) (1.20-3.40) K/uL [place] # (Auto) (0.11-0.59) K/uL Eos # (Auto) (0.00-0.50) K/uL Baso # (Auto) (0.00-0.20) K/uL Immature Gran # (Auto) (0.01-0.20) K/uL Polychromasia Poikilocytosis Anisocytosis Ovalocytes Acanthocytes (Spur) VBG pH (7.36-7.41) VBG pCO2 (38-50) mmHg VBG pO2 mmHg VBG HCO3 mmol/L VBG O2 Saturation % VBG Base Excess mEq/L Sodium (136-145) mmol/L Potassium (3.5-5.1) mmol/L Chloride (98-107) mmol/L Carbon Dioxide (21-32) mmol/L Anion Gap (3-11) BUN (6-23) mg/dl Creatinine (0.6-1.2) mg/dl Est Cr Clr Drug Dosing ml/min eGFR BUN/Creatinine Ratio (10-20) Glucose (70-99(Fasting)) mg/dl POC Glucose 258 H 296 H 65 L* (70-99) mg/dl Calcium (8.6-10.3) mg/dl Magnesium (1.7-2.4) mg/dl Iron (35-150) mcg/dl TIBC (250-450) mcg/dl Transferrin (200-360) mg/dl Transferrin % Sat (15-50) % C-Reactive Protein (0-0.5) mg/dl B-Natriuretic Peptide (0-100) pg/ml Procalcitonin (0-0.5) ng/ml 12/22/24 12/22/24 12/22/24 Range/Units 16:35 16:33 11:38 WBC (4.8-10.8) K/ul RBC (4.20-5.40) M/uL Hgb (12.0-16.0) g/dl Hct (37.0-47.0) % MCV (80.0-100.0) fL MCH (25.0-34.0) pg MCHC (32.0-36.0) g/dL RDW Std Deviation (36.4-46.3) fL RDW Coeff of Dorcas (11.5-14.5) % Plt Count (130-400) K/uL MPV (9.4-12.4) fL Immature Gran % (Auto) % Neut % (Auto) % Lymph % (Auto) % [place] % (Auto) % Eos % (Auto) % Baso % (Auto) % Neut # (Auto) (1.40-6.50) K/uL Lymph # (Auto) (1.20-3.40) K/uL [place] # (Auto) (0.11-0.59) K/uL Eos # (Auto) (0.00-0.50) K/uL Baso # (Auto) (0.00-0.20) K/uL Immature Gran # (Auto) (0.01-0.20) K/uL Polychromasia Poikilocytosis Anisocytosis Ovalocytes Acanthocytes (Spur) VBG pH (7.36-7.41) VBG pCO2 (38-50) mmHg VBG pO2 mmHg VBG HCO3 mmol/L VBG O2 Saturation % VBG Base Excess mEq/L Sodium (136-145) mmol/L Potassium (3.5-5.1) mmol/L Chloride (98-107) mmol/L Carbon Dioxide (21-32) mmol/L Anion Gap (3-11) BUN (6-23) mg/dl Creatinine (0.6-1.2) mg/dl Est Cr Clr Drug Dosing ml/min eGFR BUN/Creatinine Ratio (10-20) Glucose (70-99(Fasting)) mg/dl POC Glucose 59 L* 62 L* 93 (70-99) mg/dl Calcium (8.6-10.3) mg/dl Magnesium (1.7-2.4) mg/dl Iron (35-150) mcg/dl TIBC (250-450) mcg/dl Transferrin (200-360) mg/dl Transferrin % Sat (15-50) % C-Reactive Protein (0-0.5) mg/dl B-Natriuretic Peptide (0-100) pg/ml Procalcitonin (0-0.5) ng/ml 12/22/24 12/22/24 12/21/24 Range/Units 07:35 06:17 20:02 WBC 6.50 (4.8-10.8) K/ul RBC 2.69 L (4.20-5.40) M/uL Hgb 7.0 L (12.0-16.0) g/dl Hct 23.8 L (37.0-47.0) % MCV 88.5 (80.0-100.0) fL MCH 26.0 (25.0-34.0) pg MCHC 29.4 L (32.0-36.0) g/dL RDW Std Deviation 64.8 H (36.4-46.3) fL RDW Coeff of Dorcas 20.3 H (11.5-14.5) % Plt Count 331 (130-400) K/uL MPV 10.7 (9.4-12.4) fL Immature Gran % (Auto) 0.8 % Neut % (Auto) 71.3 % Lymph % (Auto) 14.0 % [place] % (Auto) 7.7 % Eos % (Auto) 5.7 % Baso % (Auto) 0.5 % Neut # (Auto) 4.64 (1.40-6.50) K/uL Lymph # (Auto) 0.91 L (1.20-3.40) K/uL [place] # (Auto) 0.50 (0.11-0.59) K/uL Eos # (Auto) 0.37 (0.00-0.50) K/uL Baso # (Auto) 0.03 (0.00-0.20) K/uL Immature Gran # (Auto) 0.05 (0.01-0.20) K/uL Polychromasia 1+ Poikilocytosis Anisocytosis Ovalocytes 1+ Acanthocytes (Spur) 1+ VBG pH (7.36-7.41) VBG pCO2 (38-50) mmHg VBG pO2 mmHg VBG HCO3 mmol/L VBG O2 Saturation % VBG Base Excess mEq/L Sodium 142 (136-145) mmol/L Potassium 3.3 L (3.5-5.1) mmol/L Chloride 104 (98-107) mmol/L Carbon Dioxide 32 (21-32) mmol/L Anion Gap 6 (3-11) BUN 28 H (6-23) mg/dl Creatinine 1.19 (0.6-1.2) mg/dl Est Cr Clr Drug Dosing 33.8 ml/min eGFR 48.58 BUN/Creatinine Ratio 23.5 H (10-20) Glucose 163 H (70-99(Fasting)) mg/dl POC Glucose 204 H 121 H (70-99) mg/dl Calcium 8.6 (8.6-10.3) mg/dl Magnesium 1.6 L (1.7-2.4) mg/dl Iron (35-150) mcg/dl TIBC (250-450) mcg/dl Transferrin (200-360) mg/dl Transferrin % Sat (15-50) % C-Reactive Protein (0-0.5) mg/dl B-Natriuretic Peptide (0-100) pg/ml Procalcitonin (0-0.5) ng/ml 12/21/24 12/21/24 12/21/24 Range/Units 16:35 11:28 07:28 WBC (4.8-10.8) K/ul RBC (4.20-5.40) M/uL Hgb (12.0-16.0) g/dl Hct (37.0-47.0) % MCV (80.0-100.0) fL MCH (25.0-34.0) pg MCHC (32.0-36.0) g/dL RDW Std Deviation (36.4-46.3) fL RDW Coeff of Dorcas (11.5-14.5) % Plt Count (130-400) K/uL MPV (9.4-12.4) fL Immature Gran % (Auto) % Neut % (Auto) % Lymph % (Auto) % [place] % (Auto) % Eos % (Auto) % Baso % (Auto) % Neut # (Auto) (1.40-6.50) K/uL Lymph # (Auto) (1.20-3.40) K/uL [place] # (Auto) (0.11-0.59) K/uL Eos # (Auto) (0.00-0.50) K/uL Baso # (Auto) (0.00-0.20) K/uL Immature Gran # (Auto) (0.01-0.20) K/uL Polychromasia Poikilocytosis Anisocytosis Ovalocytes Acanthocytes (Spur) VBG pH (7.36-7.41) VBG pCO2 (38-50) mmHg VBG pO2 mmHg VBG HCO3 mmol/L VBG O2 Saturation % VBG Base Excess mEq/L Sodium (136-145) mmol/L Potassium (3.5-5.1) mmol/L Chloride (98-107) mmol/L Carbon Dioxide (21-32) mmol/L Anion Gap (3-11) BUN (6-23) mg/dl Creatinine (0.6-1.2) mg/dl Est Cr Clr Drug Dosing ml/min eGFR BUN/Creatinine Ratio (10-20) Glucose (70-99(Fasting)) mg/dl POC Glucose 265 H 153 H 184 H (70-99) mg/dl Calcium (8.6-10.3) mg/dl Magnesium (1.7-2.4) mg/dl Iron (35-150) mcg/dl TIBC (250-450) mcg/dl Transferrin (200-360) mg/dl Transferrin % Sat (15-50) % C-Reactive Protein (0-0.5) mg/dl B-Natriuretic Peptide (0-100) pg/ml Procalcitonin (0-0.5) ng/ml 12/20/24 12/20/24 12/20/24 Range/Units 20:27 16:36 11:58 WBC (4.8-10.8) K/ul RBC (4.20-5.40) M/uL Hgb (12.0-16.0) g/dl Hct (37.0-47.0) % MCV (80.0-100.0) fL MCH (25.0-34.0) pg MCHC (32.0-36.0) g/dL RDW Std Deviation (36.4-46.3) fL RDW Coeff of Dorcas (11.5-14.5) % Plt Count (130-400) K/uL MPV (9.4-12.4) fL Immature Gran % (Auto) % Neut % (Auto) % Lymph % (Auto) % [place] % (Auto) % Eos % (Auto) % Baso % (Auto) % Neut # (Auto) (1.40-6.50) K/uL Lymph # (Auto) (1.20-3.40) K/uL [place] # (Auto) (0.11-0.59) K/uL Eos # (Auto) (0.00-0.50) K/uL Baso # (Auto) (0.00-0.20) K/uL Immature Gran # (Auto) (0.01-0.20) K/uL Polychromasia Poikilocytosis Anisocytosis Ovalocytes Acanthocytes (Spur) VBG pH (7.36-7.41) VBG pCO2 (38-50) mmHg VBG pO2 mmHg VBG HCO3 mmol/L VBG O2 Saturation % VBG Base Excess mEq/L Sodium (136-145) mmol/L Potassium (3.5-5.1) mmol/L Chloride (98-107) mmol/L Carbon Dioxide (21-32) mmol/L Anion Gap (3-11) BUN (6-23) mg/dl Creatinine (0.6-1.2) mg/dl Est Cr Clr Drug Dosing ml/min eGFR BUN/Creatinine Ratio (10-20) Glucose (70-99(Fasting)) mg/dl POC Glucose 157 H 178 H 198 H (70-99) mg/dl Calcium (8.6-10.3) mg/dl Magnesium (1.7-2.4) mg/dl Iron (35-150) mcg/dl TIBC (250-450) mcg/dl Transferrin (200-360) mg/dl Transferrin % Sat (15-50) % C-Reactive Protein (0-0.5) mg/dl B-Natriuretic Peptide (0-100) pg/ml Procalcitonin (0-0.5) ng/ml 12/20/24 12/20/24 12/19/24 Range/Units 07:50 07:37 20:43 WBC 5.49 (4.8-10.8) K/ul RBC 2.66 L (4.20-5.40) M/uL Hgb 7.0 L (12.0-16.0) g/dl Hct 23.8 L (37.0-47.0) % MCV 89.5 (80.0-100.0) fL MCH 26.3 (25.0-34.0) pg MCHC 29.4 L (32.0-36.0) g/dL RDW Std Deviation 66.9 H (36.4-46.3) fL RDW Coeff of Dorcas 20.5 H (11.5-14.5) % Plt Count 301 (130-400) K/uL MPV 10.7 (9.4-12.4) fL Immature Gran % (Auto) % Neut % (Auto) % Lymph % (Auto) % [place] % (Auto) % Eos % (Auto) % Baso % (Auto) % Neut # (Auto) (1.40-6.50) K/uL Lymph # (Auto) (1.20-3.40) K/uL [place] # (Auto) (0.11-0.59) K/uL Eos # (Auto) (0.00-0.50) K/uL Baso # (Auto) (0.00-0.20) K/uL Immature Gran # (Auto) (0.01-0.20) K/uL Polychromasia Poikilocytosis Anisocytosis Ovalocytes Acanthocytes (Spur) VBG pH (7.36-7.41) VBG pCO2 (38-50) mmHg VBG pO2 mmHg VBG HCO3 mmol/L VBG O2 Saturation % VBG Base Excess mEq/L Sodium 144 (136-145) mmol/L Potassium 3.5 (3.5-5.1) mmol/L Chloride 105 (98-107) mmol/L Carbon Dioxide 34 H (21-32) mmol/L Anion Gap 5 (3-11) BUN 33 H (6-23) mg/dl Creatinine 1.24 H (0.6-1.2) mg/dl Est Cr Clr Drug Dosing 32.4 ml/min eGFR 46.24 BUN/Creatinine Ratio 26.6 H (10-20) Glucose 145 H (70-99(Fasting)) mg/dl POC Glucose 169 H 266 H (70-99) mg/dl Calcium 8.6 (8.6-10.3) mg/dl Magnesium (1.7-2.4) mg/dl Iron 19 L (35-150) mcg/dl TIBC 295 (250-450) mcg/dl Transferrin 211 (200-360) mg/dl Transferrin % Sat 6 L (15-50) % C-Reactive Protein 1.51 H (0-0.5) mg/dl B-Natriuretic Peptide (0-100) pg/ml Procalcitonin 0.09 (0-0.5) ng/ml 12/19/24 12/19/24 12/19/24 Range/Units 17:31 16:31 16:30 WBC (4.8-10.8) K/ul RBC (4.20-5.40) M/uL Hgb (12.0-16.0) g/dl Hct (37.0-47.0) % MCV (80.0-100.0) fL MCH (25.0-34.0) pg MCHC (32.0-36.0) g/dL RDW Std Deviation (36.4-46.3) fL RDW Coeff of Dorcas (11.5-14.5) % Plt Count (130-400) K/uL MPV (9.4-12.4) fL Immature Gran % (Auto) % Neut % (Auto) % Lymph % (Auto) % [place] % (Auto) % Eos % (Auto) % Baso % (Auto) % Neut # (Auto) (1.40-6.50) K/uL Lymph # (Auto) (1.20-3.40) K/uL [place] # (Auto) (0.11-0.59) K/uL Eos # (Auto) (0.00-0.50) K/uL Baso # (Auto) (0.00-0.20) K/uL Immature Gran # (Auto) (0.01-0.20) K/uL Polychromasia Poikilocytosis Anisocytosis Ovalocytes Acanthocytes (Spur) VBG pH (7.36-7.41) VBG pCO2 (38-50) mmHg VBG pO2 mmHg VBG HCO3 mmol/L VBG O2 Saturation % VBG Base Excess mEq/L Sodium (136-145) mmol/L Potassium (3.5-5.1) mmol/L Chloride (98-107) mmol/L Carbon Dioxide (21-32) mmol/L Anion Gap (3-11) BUN (6-23) mg/dl Creatinine (0.6-1.2) mg/dl Est Cr Clr Drug Dosing ml/min eGFR BUN/Creatinine Ratio (10-20) Glucose (70-99(Fasting)) mg/dl POC Glucose 122 H 70 68 L* (70-99) mg/dl Calcium (8.6-10.3) mg/dl Magnesium (1.7-2.4) mg/dl Iron (35-150) mcg/dl TIBC (250-450) mcg/dl Transferrin (200-360) mg/dl Transferrin % Sat (15-50) % C-Reactive Protein (0-0.5) mg/dl B-Natriuretic Peptide (0-100) pg/ml Procalcitonin (0-0.5) ng/ml 12/19/24 12/19/24 12/19/24 Range/Units 11:45 07:40 06:04 WBC 4.78 L (4.8-10.8) K/ul RBC 2.74 L (4.20-5.40) M/uL Hgb 7.1 L (12.0-16.0) g/dl Hct 23.8 L (37.0-47.0) % MCV 86.9 (80.0-100.0) fL MCH 25.9 (25.0-34.0) pg MCHC 29.8 L (32.0-36.0) g/dL RDW Std Deviation 64.6 H (36.4-46.3) fL RDW Coeff of Dorcas 20.4 H (11.5-14.5) % Plt Count 301 (130-400) K/uL MPV 11.1 (9.4-12.4) fL Immature Gran % (Auto) 1.0 % Neut % (Auto) 67.1 % Lymph % (Auto) 19.2 % [place] % (Auto) 7.7 % Eos % (Auto) 4.4 % Baso % (Auto) 0.6 % Neut # (Auto) 3.20 (1.40-6.50) K/uL Lymph # (Auto) 0.92 L (1.20-3.40) K/uL [place] # (Auto) 0.37 (0.11-0.59) K/uL Eos # (Auto) 0.21 (0.00-0.50) K/uL Baso # (Auto) 0.03 (0.00-0.20) K/uL Immature Gran # (Auto) 0.05 (0.01-0.20) K/uL Polychromasia 1+ Poikilocytosis Present Anisocytosis Present Ovalocytes Acanthocytes (Spur) VBG pH (7.36-7.41) VBG pCO2 (38-50) mmHg VBG pO2 mmHg VBG HCO3 mmol/L VBG O2 Saturation % VBG Base Excess mEq/L Sodium 142 (136-145) mmol/L Potassium 3.5 (3.5-5.1) mmol/L Chloride 104 (98-107) mmol/L Carbon Dioxide 32 (21-32) mmol/L Anion Gap 6 (3-11) BUN 43 H (6-23) mg/dl Creatinine 1.21 H (0.6-1.2) mg/dl Est Cr Clr Drug Dosing 33.2 ml/min eGFR 47.62 BUN/Creatinine Ratio 35.5 H (10-20) Glucose 111 H (70-99(Fasting)) mg/dl POC Glucose 174 H 175 H (70-99) mg/dl Calcium 8.6 (8.6-10.3) mg/dl Magnesium (1.7-2.4) mg/dl Iron (35-150) mcg/dl TIBC (250-450) mcg/dl Transferrin (200-360) mg/dl Transferrin % Sat (15-50) % C-Reactive Protein 1.72 H (0-0.5) mg/dl B-Natriuretic Peptide 102 H (0-100) pg/ml Procalcitonin (0-0.5) ng/ml 12/18/24 12/18/24 12/18/24 Range/Units 20:29 17:07 16:45 WBC (4.8-10.8) K/ul RBC (4.20-5.40) M/uL Hgb (12.0-16.0) g/dl Hct (37.0-47.0) % MCV (80.0-100.0) fL MCH (25.0-34.0) pg MCHC (32.0-36.0) g/dL RDW Std Deviation (36.4-46.3) fL RDW Coeff of Dorcas (11.5-14.5) % Plt Count (130-400) K/uL MPV (9.4-12.4) fL Immature Gran % (Auto) % Neut % (Auto) % Lymph % (Auto) % [place] % (Auto) % Eos % (Auto) % Baso % (Auto) % Neut # (Auto) (1.40-6.50) K/uL Lymph # (Auto) (1.20-3.40) K/uL [place] # (Auto) (0.11-0.59) K/uL Eos # (Auto) (0.00-0.50) K/uL Baso # (Auto) (0.00-0.20) K/uL Immature Gran # (Auto) (0.01-0.20) K/uL Polychromasia Poikilocytosis Anisocytosis Ovalocytes Acanthocytes (Spur) VBG pH (7.36-7.41) VBG pCO2 (38-50) mmHg VBG pO2 mmHg VBG HCO3 mmol/L VBG O2 Saturation % VBG Base Excess mEq/L Sodium (136-145) mmol/L Potassium (3.5-5.1) mmol/L Chloride (98-107) mmol/L Carbon Dioxide (21-32) mmol/L Anion Gap (3-11) BUN (6-23) mg/dl Creatinine (0.6-1.2) mg/dl Est Cr Clr Drug Dosing ml/min eGFR BUN/Creatinine Ratio (10-20) Glucose (70-99(Fasting)) mg/dl POC Glucose 203 H 81 67 L* (70-99) mg/dl Calcium (8.6-10.3) mg/dl Magnesium (1.7-2.4) mg/dl Iron (35-150) mcg/dl TIBC (250-450) mcg/dl Transferrin (200-360) mg/dl Transferrin % Sat (15-50) % C-Reactive Protein (0-0.5) mg/dl B-Natriuretic Peptide (0-100) pg/ml Procalcitonin (0-0.5) ng/ml 12/18/24 12/18/24 12/18/24 Range/Units 16:43 11:39 07:45 WBC (4.8-10.8) K/ul RBC (4.20-5.40) M/uL Hgb (12.0-16.0) g/dl Hct (37.0-47.0) % MCV (80.0-100.0) fL MCH (25.0-34.0) pg MCHC (32.0-36.0) g/dL RDW Std Deviation (36.4-46.3) fL RDW Coeff of Dorcas (11.5-14.5) % Plt Count (130-400) K/uL MPV (9.4-12.4) fL Immature Gran % (Auto) % Neut % (Auto) % Lymph % (Auto) % [place] % (Auto) % Eos % (Auto) % Baso % (Auto) % Neut # (Auto) (1.40-6.50) K/uL Lymph # (Auto) (1.20-3.40) K/uL [place] # (Auto) (0.11-0.59) K/uL Eos # (Auto) (0.00-0.50) K/uL Baso # (Auto) (0.00-0.20) K/uL Immature Gran # (Auto) (0.01-0.20) K/uL Polychromasia Poikilocytosis Anisocytosis Ovalocytes Acanthocytes (Spur) VBG pH (7.36-7.41) VBG pCO2 (38-50) mmHg VBG pO2 mmHg VBG HCO3 mmol/L VBG O2 Saturation % VBG Base Excess mEq/L Sodium (136-145) mmol/L Potassium (3.5-5.1) mmol/L Chloride (98-107) mmol/L Carbon Dioxide (21-32) mmol/L Anion Gap (3-11) BUN (6-23) mg/dl Creatinine (0.6-1.2) mg/dl Est Cr Clr Drug Dosing ml/min eGFR BUN/Creatinine Ratio (10-20) Glucose (70-99(Fasting)) mg/dl POC Glucose 63 L* 192 H 124 H (70-99) mg/dl Calcium (8.6-10.3) mg/dl Magnesium (1.7-2.4) mg/dl Iron (35-150) mcg/dl TIBC (250-450) mcg/dl Transferrin (200-360) mg/dl Transferrin % Sat (15-50) % C-Reactive Protein (0-0.5) mg/dl B-Natriuretic Peptide (0-100) pg/ml Procalcitonin (0-0.5) ng/ml 12/18/24 12/17/24 12/17/24 Range/Units 05:35 21:47 20:44 WBC 5.78 (4.8-10.8) K/ul RBC 2.79 L (4.20-5.40) M/uL Hgb 7.3 L (12.0-16.0) g/dl Hct 24.9 L (37.0-47.0) % MCV 89.2 (80.0-100.0) fL MCH 26.2 (25.0-34.0) pg MCHC 29.3 L (32.0-36.0) g/dL RDW Std Deviation 65.7 H (36.4-46.3) fL RDW Coeff of Dorcas 20.1 H (11.5-14.5) % Plt Count 305 (130-400) K/uL MPV 11.0 (9.4-12.4) fL Immature Gran % (Auto) % Neut % (Auto) % Lymph % (Auto) % [place] % (Auto) % Eos % (Auto) % Baso % (Auto) % Neut # (Auto) (1.40-6.50) K/uL Lymph # (Auto) (1.20-3.40) K/uL [place] # (Auto) (0.11-0.59) K/uL Eos # (Auto) (0.00-0.50) K/uL Baso # (Auto) (0.00-0.20) K/uL Immature Gran # (Auto) (0.01-0.20) K/uL Polychromasia Poikilocytosis Anisocytosis Ovalocytes Acanthocytes (Spur) VBG pH 7.40 (7.36-7.41) VBG pCO2 58 H (38-50) mmHg VBG pO2 21 mmHg VBG HCO3 36 mmol/L VBG O2 Saturation < 60.0 % VBG Base Excess 9.0 mEq/L Sodium 142 (136-145) mmol/L Potassium 3.9 (3.5-5.1) mmol/L Chloride 104 (98-107) mmol/L Carbon Dioxide 35 H (21-32) mmol/L Anion Gap 3 (3-11) BUN 40 H (6-23) mg/dl Creatinine 1.24 H (0.6-1.2) mg/dl Est Cr Clr Drug Dosing 32.4 ml/min eGFR 46.24 BUN/Creatinine Ratio 32.3 H (10-20) Glucose 127 H (70-99(Fasting)) mg/dl POC Glucose 128 H (70-99) mg/dl Calcium 8.8 (8.6-10.3) mg/dl Magnesium (1.7-2.4) mg/dl Iron (35-150) mcg/dl TIBC (250-450) mcg/dl Transferrin (200-360) mg/dl Transferrin % Sat (15-50) % C-Reactive Protein 1.49 H (0-0.5) mg/dl B-Natriuretic Peptide (0-100) pg/ml Procalcitonin (0-0.5) ng/ml 12/17/24 12/17/24 12/17/24 Range/Units 17:32 16:33 11:19 WBC (4.8-10.8) K/ul RBC (4.20-5.40) M/uL Hgb 7.2 L (12.0-16.0) g/dl Hct 24.2 L (37.0-47.0) % MCV (80.0-100.0) fL MCH (25.0-34.0) pg MCHC (32.0-36.0) g/dL RDW Std Deviation (36.4-46.3) fL RDW Coeff of Dorcas (11.5-14.5) % Plt Count (130-400) K/uL MPV (9.4-12.4) fL Immature Gran % (Auto) % Neut % (Auto) % Lymph % (Auto) % [place] % (Auto) % Eos % (Auto) % Baso % (Auto) % Neut # (Auto) (1.40-6.50) K/uL Lymph # (Auto) (1.20-3.40) K/uL [place] # (Auto) (0.11-0.59) K/uL Eos # (Auto) (0.00-0.50) K/uL Baso # (Auto) (0.00-0.20) K/uL Immature Gran # (Auto) (0.01-0.20) K/uL Polychromasia Poikilocytosis Anisocytosis Ovalocytes Acanthocytes (Spur) VBG pH (7.36-7.41) VBG pCO2 (38-50) mmHg VBG pO2 mmHg VBG HCO3 mmol/L VBG O2 Saturation % VBG Base Excess mEq/L Sodium (136-145) mmol/L Potassium (3.5-5.1) mmol/L Chloride (98-107) mmol/L Carbon Dioxide (21-32) mmol/L Anion Gap (3-11) BUN (6-23) mg/dl Creatinine (0.6-1.2) mg/dl Est Cr Clr Drug Dosing ml/min eGFR BUN/Creatinine Ratio (10-20) Glucose (70-99(Fasting)) mg/dl POC Glucose 130 H 107 H (70-99) mg/dl Calcium (8.6-10.3) mg/dl Magnesium (1.7-2.4) mg/dl Iron (35-150) mcg/dl TIBC (250-450) mcg/dl Transferrin (200-360) mg/dl Transferrin % Sat (15-50) % C-Reactive Protein (0-0.5) mg/dl B-Natriuretic Peptide (0-100) pg/ml Procalcitonin (0-0.5) ng/ml 12/17/24 12/17/24 12/16/24 Range/Units 08:06 07:52 20:13 WBC 6.20 (4.8-10.8) K/ul RBC 2.75 L (4.20-5.40) M/uL Hgb 7.0 L (12.0-16.0) g/dl Hct 24.1 L (37.0-47.0) % MCV 87.6 (80.0-100.0) fL MCH 25.5 (25.0-34.0) pg MCHC 29.0 L (32.0-36.0) g/dL RDW Std Deviation 63.9 H (36.4-46.3) fL RDW Coeff of Dorcas 20.0 H (11.5-14.5) % Plt Count 302 (130-400) K/uL MPV 11.5 (9.4-12.4) fL Immature Gran % (Auto) % Neut % (Auto) % Lymph % (Auto) % [place] % (Auto) % Eos % (Auto) % Baso % (Auto) % Neut # (Auto) (1.40-6.50) K/uL Lymph # (Auto) (1.20-3.40) K/uL [place] # (Auto) (0.11-0.59) K/uL Eos # (Auto) (0.00-0.50) K/uL Baso # (Auto) (0.00-0.20) K/uL Immature Gran # (Auto) (0.01-0.20) K/uL Polychromasia Poikilocytosis Anisocytosis Ovalocytes Acanthocytes (Spur) VBG pH (7.36-7.41) VBG pCO2 (38-50) mmHg VBG pO2 mmHg VBG HCO3 mmol/L VBG O2 Saturation % VBG Base Excess mEq/L Sodium 140 (136-145) mmol/L Potassium 4.0 (3.5-5.1) mmol/L Chloride 104 (98-107) mmol/L Carbon Dioxide 32 (21-32) mmol/L Anion Gap 4 (3-11) BUN 49 H (6-23) mg/dl Creatinine 1.26 H (0.6-1.2) mg/dl Est Cr Clr Drug Dosing 31.9 ml/min eGFR 45.36 BUN/Creatinine Ratio 38.9 H (10-20) Glucose 177 H (70-99(Fasting)) mg/dl POC Glucose 225 H 147 H (70-99) mg/dl Calcium 8.7 (8.6-10.3) mg/dl Magnesium (1.7-2.4) mg/dl Iron (35-150) mcg/dl TIBC (250-450) mcg/dl Transferrin (200-360) mg/dl Transferrin % Sat (15-50) % C-Reactive Protein 1.44 H (0-0.5) mg/dl B-Natriuretic Peptide (0-100) pg/ml Procalcitonin (0-0.5) ng/ml 12/16/24 12/16/24 12/16/24 Range/Units 16:38 11:27 08:34 WBC 6.73 (4.8-10.8) K/ul RBC 3.00 L (4.20-5.40) M/uL Hgb 7.7 L (12.0-16.0) g/dl Hct 26.6 L (37.0-47.0) % MCV 88.7 (80.0-100.0) fL MCH 25.7 (25.0-34.0) pg MCHC 28.9 L (32.0-36.0) g/dL RDW Std Deviation 64.3 H (36.4-46.3) fL RDW Coeff of Dorcas 19.9 H (11.5-14.5) % Plt Count 306 (130-400) K/uL MPV 11.1 (9.4-12.4) fL Immature Gran % (Auto) % Neut % (Auto) % Lymph % (Auto) % [place] % (Auto) % Eos % (Auto) % Baso % (Auto) % Neut # (Auto) (1.40-6.50) K/uL Lymph # (Auto) (1.20-3.40) K/uL [place] # (Auto) (0.11-0.59) K/uL Eos # (Auto) (0.00-0.50) K/uL Baso # (Auto) (0.00-0.20) K/uL Immature Gran # (Auto) (0.01-0.20) K/uL Polychromasia Poikilocytosis Anisocytosis Ovalocytes Acanthocytes (Spur) VBG pH (7.36-7.41) VBG pCO2 (38-50) mmHg VBG pO2 mmHg VBG HCO3 mmol/L VBG O2 Saturation % VBG Base Excess mEq/L Sodium 141 (136-145) mmol/L Potassium 4.3 (3.5-5.1) mmol/L Chloride 102 (98-107) mmol/L Carbon Dioxide 35 H (21-32) mmol/L Anion Gap 4 (3-11) BUN 52 H (6-23) mg/dl Creatinine 1.30 H (0.6-1.2) mg/dl Est Cr Clr Drug Dosing 30.9 ml/min eGFR 43.69 BUN/Creatinine Ratio 40.0 H (10-20) Glucose 156 H (70-99(Fasting)) mg/dl POC Glucose 91 174 H (70-99) mg/dl Calcium 8.9 (8.6-10.3) mg/dl Magnesium (1.7-2.4) mg/dl Iron (35-150) mcg/dl TIBC (250-450) mcg/dl Transferrin (200-360) mg/dl Transferrin % Sat (15-50) % C-Reactive Protein 0.86 H (0-0.5) mg/dl B-Natriuretic Peptide (0-100) pg/ml Procalcitonin 0.09 (0-0.5) ng/ml 12/16/24 Range/Units 07:33 WBC (4.8-10.8) K/ul RBC (4.20-5.40) M/uL Hgb (12.0-16.0) g/dl Hct (37.0-47.0) % MCV (80.0-100.0) fL MCH (25.0-34.0) pg MCHC (32.0-36.0) g/dL RDW Std Deviation (36.4-46.3) fL RDW Coeff of Dorcas (11.5-14.5) % Plt Count (130-400) K/uL MPV (9.4-12.4) fL Immature Gran % (Auto) % Neut % (Auto) % Lymph % (Auto) % [place] % (Auto) % Eos % (Auto) % Baso % (Auto) % Neut # (Auto) (1.40-6.50) K/uL Lymph # (Auto) (1.20-3.40) K/uL [place] # (Auto) (0.11-0.59) K/uL Eos # (Auto) (0.00-0.50) K/uL Baso # (Auto) (0.00-0.20) K/uL Immature Gran # (Auto) (0.01-0.20) K/uL Polychromasia Poikilocytosis Anisocytosis Ovalocytes Acanthocytes (Spur) VBG pH (7.36-7.41) VBG pCO2 (38-50) mmHg VBG pO2 mmHg VBG HCO3 mmol/L VBG O2 Saturation % VBG Base Excess mEq/L Sodium (136-145) mmol/L Potassium (3.5-5.1) mmol/L Chloride (98-107) mmol/L Carbon Dioxide (21-32) mmol/L Anion Gap (3-11) BUN (6-23) mg/dl Creatinine (0.6-1.2) mg/dl Est Cr Clr Drug Dosing ml/min eGFR BUN/Creatinine Ratio (10-20) Glucose (70-99(Fasting)) mg/dl POC Glucose 153 H (70-99) mg/dl Calcium (8.6-10.3) mg/dl Magnesium (1.7-2.4) mg/dl Iron (35-150) mcg/dl TIBC (250-450) mcg/dl Transferrin (200-360) mg/dl Transferrin % Sat (15-50) % C-Reactive Protein (0-0.5) mg/dl B-Natriuretic Peptide (0-100) pg/ml Procalcitonin (0-0.5) ng/ml Diagnostic Findings Head CT 11/25/24 22:25 CT OF THE HEAD WITHOUT CONTRAST CLINICAL HISTORY: eval for stroke COMPARISON STUDY: Head CTs September 08, 2023 and November 21, 2023. CT DOSE: 625.8 mGy.cm TECHNIQUE: Helical axial images of the head were obtained without IV contrast. Automated exposure control was utilized for the study. A dose lowering technique was utilized adhering to the principles of ALARA. FINDINGS: No acute intracranial hemorrhage, midline shift or mass effect is present. The ventricular system is unremarkable. The basal cisterns are patent. No extra-axial collections are present. There are no findings to suggest acute dural sinus thrombosis or acute territorial infarct. White matter hypodensities are similar to prior exam and favor small vessel disease. Bilateral basal ganglia calcification is unchanged. IMPRESSION: No acute intracranial findings. ACT 112: Negative or not required by law. Electronically signed by: Cheng Arevalo M.D. 11/26/2024 9:56 AM Abdomen/Pelvis CT 11/30/24 18:[address] WITH IV CONTRAST CT DOSE: 722.3 mGy.cm HISTORY: epigastric pain TECHNIQUE: Multiaxial CT images of the abdomen and pelvis were performed following the IV administration of 94 cc of Optiray, A dose lowering technique was utilized adhering to the principles of ALARA. COMPARISON STUDY: 05/23/2024 FINDINGS: There are small bilateral pleural effusions, increased in size. There is consolidation of the entire visualized left lower lung lobe, pneumonia versus atelectasis. ABDOMEN: Gallbladder is surgically absent. There are stable splenic calcifications consistent with prior granulomatous disease. Liver and spleen and right adrenal gland are otherwise unremarkable. There is a 1.6 cm nodule at the left adrenal gland, mildly increased in size. There is mildly increased pancrea tic ductal dilatation. No gross pancreatic mass seen. No evidence of acute pancreatitis. Kidneys show no hydronephrosis or calculi. There are scattered atherosclerotic calcifications. Infrarenal abdominal aortic aneurysm measures 4.1 cm greatest AP diameter, stable. Pelvis: Gutierrez catheter is present in the urinary bladder is empty. Uterus is absent. No adnexal mass. There is moderate retained stool. There is colonic diverticulosis. No acute diverticulitis. No bowel inflammation or obstruction. No enlarged adenopathy. No free fluid, free air, or abscess. Osseous structures: There is lumbar degenerative disc disease with grade 1 anterolisthesis of L4 on 5 and L5 on S1. There is a stable 2.3 cm sclerotic focus at the proximal right femur, possibly a large bone island. IMPRESSION: 1. Increased small bilateral pleural effusions. Complete consolidation of the visualized left lower lung lobe, pneumonia versus atelectasis. 2. Increased pancreatic ductal dilatation without gross pancreatic mass seen by CT. This is sometimes seen in the setting of tiny mass at the pancreatic head or ampulla of [place] which is below CT resolution. 3. Mildly increased size of the left adrenal nodule. 4. No other acute findings seen. Otherwise as described. ACT 112: Positive. There are findings on this exam that require communication between the performing entity and the patient following Patient Test Result Information Act ([place] Act 112) guidelines. The above report was generated using voice recognition software. It may contain grammatical, syntax or spelling errors. Electronically signed by: Anthony Quiroz M.D. 12/01/2024 11:59 AM Chest CTA 12/02/24 12:54 CT angio chest PE protocol CT DOSE: 619.17 mGy.cm HISTORY: PE. TECHNIQUE: Multiple CTA images of the chest were obtained after the intravenous administration of 90 ml Optiray. Coronal and sagittal MIPS were obtained from the axial data set and were submitted for review. All measurements were obtained according to NASCET criteria. A dose lowering technique was utilized adhering to the principles of ALARA. COMPARISON STUDY: 02/25/2024 FINDINGS: There is severe emphysema. There are small bilateral pleural effusions which layer dependently. There is mucous plugging in the lower lobe airways. There is complete collapse of the left lower lung lobe. No pneumothorax. Stable minimally enlarged precarinal lymph node. No enlarged adenopathy seen. No pericardial effusion. There are scattered coronary artery and aortic calcifications. No thoracic aortic dissection or aneurysm. No pulmonary bolus on. There are mild thoracic spine degenerative changes. IMPRESSION: 1. No pulmonary embolism. 2. Severe emphysema. 3. Mucous plugging in the lower lobe airways with complete collapse of the left lower lung lobe. 4. Small bilateral pleural effusions. ACT 112: Negative or not required by law. The above report was generated using voice recognition software. It may contain grammatical, syntax or spelling errors. Electronically signed by: Anthony Quiroz M.D. 12/02/2024 4:04 PM Liver Ultrasound 12/05/24 14:07 EXAMINATION: US abdomen right upper quadrant COMPARISON: None HISTORY: Abdominal pain TECHNIQUE: The right upper quadrant of the abdomen was scanned in standard fashion with specialized ultrasound transducers using both crabtree scale and limited color Doppler techniques. Findings: Liver: The liver demonstrates increased echogenicity suggesting steatosis, and is enlarged measuring 18.7 cm. No evidence of a focal hepatic mass or intrahepatic biliary ductal dilatation. The main portal vein is patent with antegrade flow. Gallbladder: Cholecystectomy changes Bile Ducts: Both the intra- and extrahepatic biliary system are of normal callber. The common bile duct measures 6.5 mm in diameter. Pancreas: Visualized portions of the head and body of the pancreas are unremarkable. Right kidney: Normal echotexture, without mass or hydronephrosis. Right kidney craniocaudal dimension: 9.5 cm Fluid: No evidence of ascites or pleural effusions. Impression: 1. Hepatic steatosis/hepatomegaly. 2. Cholecystectomy Electronically signed by Lion Yost 12-05-2024 3:33 PM Mesenteric US 12/06/24 00:00 EXAM: US duplex mesenteric CLINICAL HISTORY: New hepatitis, check mesenteric. TECHNIQUE: A Doppler ultrasound was performed to evaluate the mesenteric arteries, including the celiac artery and superior mesenteric artery (SMA). Peak systolic velocities (PSV), end-diastolic velocities (EDV), and resistive indices (RI) were measured. COMPARISON: None. FINDINGS: Abdominal Aorta: Proximal: PSV = 63 cm/s, EDV = 20.2 cm/s, RI = 0.68 Appearance: Tortuous, with plaques noted. Celiac Artery: Origin: PSV = 205 cm/s, EDV = 24.8 cm/s. Suggestive of significant stenosis. Proximal Segment: PSV = 172 cm/s, EDV = 0.6 cm/s Appearance: Plaques and mild tortuosity noted. Superior Mesenteric Artery (SMA): Origin: PSV = 211 cm/s, EDV = 15.0 cm/s Proximal Segment: PSV = 196 cm/s, EDV = 22.1 cm/s Mid-Segment: PSV = 199 cm/s, EDV = 19.1 cm/s Distal Segment: PSV = 93 cm/s, EDV = 3.5 cm/s Mesenteric vessels appear somewhat tortuous, with evidence of plaque deposition affecting flow dynamics. IMPRESSION: 1. Elevated peak systolic velocities in the celiac artery and SMA at the origin and proximal segments, suggestive of hemodynamically significant stenosis. Correlation with CT angiography is advised. 2. Tortuous mesenteric vessels with plaque deposition contributing to altered flow patterns. 3. Distal SMA velocities are within normal limits, suggesting no critical downstream obstruction. Electronically signed by Bipin Vigil 12-06-2024 06:05 AM Videofluoroscopic Swallow 12/10/24 10:30 FL video swallow CLINICAL HISTORY: 74 years-old Female with r/o aspiration. This patient with possible aspiration TECHNIQUE: Video fluoroscopic evaluation of swallowing was performed in the AP and lateral projections by the speech pathology staff. The patient is fed varying consistencies of barium. FLUOROSCOPY TIME: 1.36 minutes. 2051 images were submitted. 9.51 mGy. COMPARISON STUDY: 02/27/2024 FINDINGS: Small amount of silent aspiration noted with thin liquid barium. Laryngeal penetration with nectar consistency. No additional definitive aspiration identified throughout the study. Swallowing function is otherwise within normal limits. IMPRESSION: 1. Aspiration with thin liquid barium. 2. Please see the speech pathologist report for detailed findings and recommendations. ACT 112: Negative or not required by law. Electronically signed by: Israel Sharma M.D. 12/10/2024 12:57 PM Abdomen CTA 12/12/24 11:38 EXAM: CT Angiography Abdomen Without and With Intravenous Contrast INDICATION: Question SMA stenosis on ultrasound. TECHNIQUE: Axial computed tomographic angiography images of the abdomen without and with intravenous contrast. Sagittal and coronal reformatted images were created and reviewed. This CT exam was performed using one or more of the following dose reduction techniques: automated exposure control, adjustment of the mA and/or kV according to patient size, and/or use of iterative reconstruction technique. Oral contrast was administered. MIP reconstructed images were created and reviewed. CONTRAST: 119ml of Optiray 320 was administered intravenously. COMPARISON: Abdominal duplex ultrasound and CT abdomen pelvis 12/06/2024 FINDINGS: Aorta: There is diffuse aortic atherosclerosis. There is stable 4 cm aneurysm of the distal abdominal aorta without hemorrhage or dissection. Celiac trunk and mesenteric arteries: Inferior mesenteric artery is patent. No aneurysm, dissection or stenosis. There is dense atherosclerotic calcification at the origin of the superior mesenteric artery with approximately 75% stenosis at the origin. There are multiple calcific plaques in the horizontal segment with multifocal stenoses of up to 50%. There is mild calcification at the origin of the celiac trunk without significant stenosis. There is calcification in the distal celiac artery just proximal to the hepatic branch. No aneurysm or dissection. Appearance stable. Renal arteries: No acute change noted. No occlusion or significant stenosis. Iliac arteries: Moderate to marked calcific plaque noted in the bilateral common iliac arteries with multifocal l stenoses of up to 50% noted bilaterally. No occlusion. Other veins: Portal and superior mesenteric veins are patent. Lung bases and pleural space: New small bilateral layering pleural effusions. There is airway thickening and consolidation in both lower and right middle lobes. There is a slightly focal masslike consolidate and/or adjacent pleural thickening/fluid in the medial left lung base lateral to the aorta measuring 2.5 x 1.3 x 3.1 cm. Liver: No abnormality noted. No mass. Gallbladder and bile ducts: No abnormality noted. No calcified stones. No ductal dilation. Pancreas: No abnormality noted. No ductal dilation. No mass. Spleen: Stable splenic granulomata. Adrenals: Adenomatous changes of each adrenal gland stable. Kidneys and ureters: No abnormality noted. No obstructing stones. No hydronephrosis. No solid mass. Stomach and bowel: Visualized intestinal loops are normally distributed. There is no thickening or inflammatory process. Moderate amounts of formed stool in the colon and left colonic diverticulosis noted. No obstruction. Intraperitoneal space: No abnormality noted. No significant fluid collection. No free air. Bones/joints: Degenerative changes noted in the scoliotic spine. No acute osseous abnormality noted. Soft tissues: No abnormality noted. No mass. Lymph nodes: No abnormality noted. No enlarged lymph nodes. IMPRESSION: 1. 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 There is approximately 75% stenosis at the origin. There are multifocal up to 50% stenoses in the horizontal segment. 2. 4 cm abdominal aortic aneurysm is stable. No hemorrhage. ACR White Paper guidelines (Diaz, et al. JACR 2013; 10(10):789-70) suggest abdomen/pelvis CT or MR imaging follow-up in 1 years. 3. Dense atherosclerosis of the common iliac arteries with multifocal up to 50% stenoses. 4. Small bilateral pleural effusions and bibasilar airspace consolidation and bronchitis. Somewhat masslike consolidated in the medial left lower lobe likely reflects a confluence of pleural loculation and airspace consolidation. ACT 112: Negative or not required by law. Electronically signed by Arielle Ramirez 12-12-2024 12:[address] 12/15/24 11:13 CT OF THE CHEST WITHOUT IV CONTRAST CLINICAL HISTORY: Recurrent hypoxia. COMPARISON STUDY: Chest CT December 02, 2024. Chest radiograph December 09, 2024. CTA of the abdomen and pelvis December 12, 2024. CT DOSE: 403.3 mGy.cm TECHNIQUE: Axial images of the chest were obtained without IV contrast. Images were reviewed in the axial, sagittal, and coronal planes. IV contrast was not administered for this examination. Automated exposure control was utilized for the study. A dose lowering technique was utilized adhering to the principles of ALARA. FINDINGS: Prominent mediastinal lymph nodes remain unchanged. These are likely benign. The heart is mildly enlarged. There is moderate coronary artery calcification. Extensive atherosclerotic plaque of the thoracic aorta. There is no pericardial effusion. There are small bilateral effusions. There is no pneumothorax. Severe emphysema is present. Left lower lobe collapse has developed since CT of December 12, 2014. This was shown on earlier chest CT of December 02, 2024. Subpleural alveolar opacities within the right lungs favor an infectious process. A central obstructing mass is identified. There are no fractures or suspicious lesions within the bony thorax. An infrarenal abdominal aortic aneurysm is partially imaged on this exam. This is better depicted on the CTA of December 12, 2024. The gallbladder is surgically absent. IMPRESSION: 1. Interval development of left lower lobe collapse since CTA of December 12, 2024. 2. Subpleural right lung opacities which favor pneumonia. 3. Small bilateral pleural effusions. 4. Severe emphysema. ACT 112: Negative or not required by law. Electronically signed by: Cheng Arevalo M.D. 12/15/2024 1:08 PM Chest X-Ray 12/22/24 08:18 XR chest 2V PA/lateral CLINICAL HISTORY: f/u [facility] COMPARISON STUDY: 12/09/2024 FINDINGS: There is stable mild cardiomegaly with mild pulmonary vascular congestion. There is increased opacity in the lung bases with blunting of the costophrenic angles and obscuration of the right hemidiaphragm. No pneumothorax. IMPRESSION: Increased pleural effusions and pulmonary consolidation in the lung bases, right greater than left. ACT 112: Negative or not required by law. Electronically signed by: Anthony Quiroz M.D. 12/22/2024 9:12 AM PG Care Time/CCT Total # of Minutes Spent Total Time Spent with Patient: Total time spent is greater than 50% in coordination of care (as documented) at patient's floor/unit and/or counseling patient: I spent 85 minutes overall addressing this case: 10 min in medical data review/discussion with referring provider(s) and/or preparation for the visit 10min in direct interaction with the patient/exam 30 min in Advance Care Planning/Goals of Care discussions as detailed above in note (must be >16min) with 10 min in subsequent review and synthesis of assessment and plan 25 min communicating with other providers regarding the patient's case: care mgt, primary team/numerous discussions over the course of the day Advanced Care Planning 65938 Advanced Care Planning 30 Min [place] [address] SUB INP/OBS CARE 3/50MIN (25 - SIGNIFICANT, SEPARATELY IDENTIFIABLE ) Patient Type Established Medical Decision Making High Complexity Diagnoses Cognitive changes R41.89 Advanced care planning/counseling discussion Z71.89 Encounter for hospice care discussion Z71 Palliative care by specialist Z51.5 Weakness generalized R53.1 COPD, very severe J44.9 Additional Codes Advanced Care Planning - 65112 Advanced Care Planning 30 Min: 66311 Advanced Care Planning 30 Min ([id number])
[2024-12-22] MEDS: GLUCOSE 10 TAB/TUBE PO PRN (16:38)
--- NOTE | 2024-12-22 17:38 | Hospitalist Progress Note ---
Date of Service December 22, 2024 Assessment & Plan (1) Acute hypercapnic respiratory failure: (2) Pneumonia: (3) CHF (congestive heart failure): (4) Afib: Plan 74-year-old female who presents with obtundation due acute on chronic respiratory failure with hypercarbia and hypoxemia. Patient continues to be a current smoker. Patient also tested positive for COVID-19. With collapse of LLL on Chest CT from mucus plugging and PNA Acute on chronic respiratory failure hypercarbia and hypoxemia/Sepsis POA in setting of COVID-19 and UTI and PNA -with a h/o Copd, requiring 9LNC at one point and tachypneic, now weaned down to 6LNC after treatment with Zosyn, azithro, IV decadron and then later IV Solu Medrol, but still has some brief desats with exertion. Ur cx with E. coli-treated with 7 days antibiotics. Consult PULM --> suspected severe aspiration PNA, however she did pass her Speech eval without aspiration Repeat Chest CT again 12/15 shows collapsed LLL Repeat CXR 12/22 with increasing pleural effusions R?L with consolidation, but appears comfortable on 6LNC -Continue hypertonic saline, bronchodilator and inhaled corticosteroid nebs, continue flutter valve, ICS. SHe refuses vibration due to back pain -Continue to wean down O2 as able to keep POx>88%--> she is on 4LNC at home -increase lasix dose to 20mg po bid on 12/22 Paroxysmal Afib/HTN/HFpEF -with last Echo 11/15 Remained in NSR here and has since been downgraded off tele unit. BPs controlled -Continue metoprolol tartrate 25mg po bid, Eliquis 5mg bid -With pleural effusions on CXR--> started gentle diuresis with lasix 20mg po qAM and now increase to bid on 12/22 -Continue to hold losartan for mild TTAY which is now improved/stable Shock liver/Epigastric abd pain/Mesenteric artery stenosis-2/2 hypotension on admission which is now resolved. AST/ALT in 1999s, ALK phos in 300s--> trended downward but still remain mildly elevated, INR 1.2, GI ordered hep serology- hepatitis ABC negative, KERI, AMA, IgG actin all negative Liver US with hepatomegaly mild and fatty liver, s/p cholecystectomy, otherwise normal. 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 CTA Abdomen shows 75% stenosis at origin of SMA, multifocal up to 50% stenosis in the horizontal segment-pt declines intervention at this time Doubt the abdominal pain is related to the shock liver but could be however she reports this abdominal pains been ongoing for many months She is now weaned off IV morphine and doing well on Oxycontin and prn po oxycodone for breakthrough -continue Oxycontin, IR oxycodone prn -follow LFTs periodically to reoslution TATY/Hyperkalemia-team guide was up to 1.5 after receiving 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 Both held and w/ improvement. Hyperkalemia now resolved after starting po lasix and received Lokelma -continue to hold ACEi and continue lasix 20mg increasing to bid -follow BMP Anemia- Hgb down to 7.0 and stable from previous, no overt GI bleeding, CT abd/pelvis showing ductal dilatation in pancreas, no mass but may have a small lesion. Gastro consulted: patient does not want any intervention. B12, folate normal; Fe studies anemia of chronic disease, TSH normal Repeat Fe studies now worse later in stay with transferrin sat 5% -Follow CBC -give IV Venofer 300mg x 1 on 12/21 and again on 12/22 DMII-->HgbA1C 7.5%.Controlled, Pharmacy is managing GERD-continue PPI DVT proph-Eliquis Dispo-pt stable for dc to SNF-multiple attempts to get a hold of by CM, finally Palliative Med able to speak to him on 12/22--> he said trial of SNF and go to [facility] if declines. Referrals out for SNF, medically stable for discharge Admission and Anticipated Discharge Date Admission Date: November 25, 2024 Subjective Pt had a BM today after taking laxatives, was hard and feels like has more to go. Having her usual abdominal pain today and requesting oxycodone Denies SOB, lying flat when I saw her Physical Exam Constitutional: no acute distress Eyes: + anicteric sclerae Respiratory: not tachypneic Auscultation: + diminished lung sounds (left base) and + crackles; no wheezes Cardiovascular: Rate/Rhythm: regular rate and regular rhythm Heart Sounds: no murmur Extremities: no edema Gastrointestinal (Abdomen): Inspection/Auscultation: normal bowel sounds Percussion/Palpation: + abdomen tender (diffuse without guarding or rebound) and abdomen soft Psychiatric: A+Ox3, euthymic affect Orientation: cooperative Results & Data Results & Data Vital Signs (Past 12 Hours) Vital Signs Temp Pulse Resp BP Pulse Ox O2 Del Method O2 Del Method 12/22/24 15:03 37.1 C 74 18 106/51 L 96 Room Air 12/22/24 14:39 High Flow Nasal Cannula 12/22/24 13:30 74 18 90 Nasal Cannula 12/22/24 08:45 High Flow Nasal Cannula 12/22/24 07:34 37.1 C 84 18 127/60 94 High Flow Nasal Cannula 12/22/24 07:03 76 18 94 Nasal Cannula O2 Flow Rate O2 Flow Rate 12/22/24 15:03 12/22/24 14:39 6 12/22/24 13:30 6 12/22/24 08:45 6 12/22/24 07:34 6 12/22/24 07:03 6 Laboratory Results CBC, BMP,, mag reviewed PG Care Time/CCT Total # of Minutes Spent Total Time Spent with Patient: Total time spent is greater than 50% in coordination of care (as documented) at patient's floor/unit and/or counseling patient: Coding Level of Care Code 58006 SUB INP/OBS CARE 2/35MIN Diagnoses Acute hypercapnic respiratory failure J96.02 Pneumonia J18.9 Laterality: right Lung location: lower lobe of lung Pneumonia type: due to unspecified organism CHF (congestive heart failure) I50.9 Afib I48.91 (2) Pneumonia Laterality: right Lung location: lower lobe of lung Pneumonia type: due to unspecified organism Qualified Code(s): J18.9 - Pneumonia, unspecified organism
[2024-12-22] MEDS: MAGNESIUM SULFATE / D5W 1 GM/100 ML BAG IV ONE (17:51)
[2024-12-22] MEDS: POTASSIUM CHLORIDE CRTAB 20 MEQ TABCR PO STA (17:52)
[2024-12-22] MEDS: oxyCODONE HCL IR 5 MG TAB (IMMEDIATE RELEASE) PO PRN (17:58)
[2024-12-22] MEDS: FUROSEMIDE 20 MG TAB PO SCH (18:20)
[2024-12-23 09:52] LABS: BUN Creatinine Ratio 21.7 (10-20); Calcium 8.4 mg/dl (8.6-10.3); Creatinine Clr Calc Pharmacy 33.5 ml/min; Magnesium 1.7 mg/dl (1.7-2.4); Potassium 3.9 mmol/L (3.5-5.1)
--- NOTE | 2024-12-23 13:25 | Pharmacy Report ---
Pharmacy Glycemic Short Note 2 - Date of Service December 23, 2024 - Glycemic Short BSG Results (Last 24 hours): 12/22/24 12/22/24 12/22/24 16:33 16:35 16:53 Glucose POC Glucose 62 L* 59 L* 65 L* 12/22/24 12/22/24 12/23/24 17:30 20:35 07:25 Glucose POC Glucose 296 H 258 H 364 H* 12/23/24 12/23/24 12/23/24 07:27 07:54 09:08 Glucose 302 H* POC Glucose 297 H 329 H* 12/23/24 11:31 Glucose POC Glucose 171 H OUTPATIENT ANTIDIABETIC REGIMEN: * Glargine 20 units SC BID * Lispro 8 units SC TIDM * Metformin 1 g PO BID * HbA1c: 7.5% (11/26/24) ASSESSMENT: 12/23: * Daniella received 25 units of insulin yesterday (15 units basal) with variable BSG control. Of note, patient experienced an episode of asymptomatic hypoglycemia around dinner time, BSG of 62 mg/dL. Treated with four glucose tablets. * BSG trends have been difficult to follow. Patient experiences both hypoglycemia and hyperglycemia on the same/similar insulin doses. Discussed patient with provider. Agreed to manage patient conservatively given age, palliative status and concerns for hypoglycemia - will aim to keep post prandial BSGs less than 200 mg/dL. When patient does have an episode of hypo glycemia it tends to be at dinner. * Will loosen correctional insulin but slightly increase carb coverage. If patient experiences hypoglycemia at dinner on 12/23, will trial removing Novolog coverage with lunch. * Despite fasting BSG of 297 mg/dL, no changes to Lantus will be made today. 12/21: * BSGs [phone]/dL the last 24h. Received 12 units of basal and 18 units of bolus insulin yesterday. * Tolerating diet. * Basal increased slightly to 15 units this AM given mildly elevated fasting BSGs the last couple of days. No change to Novolog. 12/20: * BSGs erratic the last 24h: [phone]/dL. Received 12 units of basal and 12 units of bolus insulin yesterday. * Tolerating diet, other stressors stable. * Continue 12 units daily of basal. Novolog loosened the previous 2 days given dinnertime lows. Will continue same for now. BSG goal loosened to 120-160mg/dl- continue. 12/17: * Daniella received 16 units of insulin yesterday (10 were basal) * Fasting BSG this AM elevated, will give an additional 5 units of basal with lunch and increase total to 15 units daily tomorrow. Continue will additional scale at bedtime if BSGs elevated\ * Loosen correction factor and increase goal range slightly as some BSGs tend to drop quickly 12/15/24: * Blood sugars trended up throughout the day yesterday * Received 39 units of insulin (20 units of basal and 19 units of prandial/correctional bolus) * Last dose of prednisone was yesterday 12/14 * Will loosen insulin regimen today in light of steroid discontinuation 12/13/24: * Blood sugars have been labile over past 72 hours with multiple episodes of h ypoglycemia * Will allow for some hyperglycemia to minimize likelihood of hypoglycemia * Prednisone has been tapered to 20 mg PO daily Refer to previous notes for additional background. PLAN FOR INPATIENT GLYCEMIC CONTROL: * Hold outpatient oral diabetes medications * Basal insulin * Lantus 15 units SC qAM * Bolus insulin * NovoLog per scale ACHS or Q6hrs while NPO * Goal Range: Low 120 mg/dL - High 160 mg/dL (post prandial BSGs <200 is acceptable) * Correction Factor: 45 mg/dL/unit * Nutritional / Prandial insulin per carb ratio of 1 unit per 9 grams CHO consumed
[2024-12-23] MEDS: bisacodyL 10 MG SUPP PR STA (16:00)
[2024-12-23] MEDS: SENNA 8.6 MG TAB PO SCH (16:00)
--- NOTE | 2024-12-23 16:20 | Hospitalist Progress Note ---
Date of Service December 23, 2024 Assessment & Plan (1) Acute hypercapnic respiratory failure: (2) Pneumonia: (3) CHF (congestive heart failure): (4) Afib: Plan 74-year-old female who presents with obtundation due acute on chronic respiratory failure with hypercarbia and hypoxemia. Patient continues to be a current smoker. Patient also tested positive for COVID-19. With collapse of LLL on Chest CT from mucus plugging and PNA Acute on chronic respiratory failure hypercarbia and hypoxemia/Sepsis POA in setting of COVID-19 and UTI and PNA -with a h/o Copd, requiring 9LNC at one point and tachypneic, now weaned down to 6LNC after treatment with Zosyn, azithro, IV decadron and then later IV Solu Medrol, but still has some brief desats with exertion. Ur cx with E. coli-treated with 7 days antibiotics. Consult PULM --> suspected severe aspiration PNA, however she did pass her Speech eval without aspiration Repeat Chest CT again 12/15 shows collapsed LLL Repeat CXR 12/22 with increasing pleural effusions R?L with consolidation, but appears comfortable on 6LNC -Continue hypertonic saline, bronchodilator and inhaled corticosteroid nebs, continue flutter valve, ICS. SHe refuses vibration due to back pain -Continue to wean down O2 as able to keep POx>88%--> she is on 4LNC at home -increased lasix dose to 20mg po bid on 12/22 Paroxysmal Afib/HTN/HFpEF -with last Echo 11/15 Remained in NSR here and has since been downgraded off tele unit. BPs controlled to low normal -Continue metoprolol tartrate 25mg po bid, Eliquis 5mg bid -With pleural effusions on CXR--> started gentle diuresis with lasix 20mg po qAM and increased to bid on 12/22 for increased pleural effusion on CXR -discontinued losartan for mild TATY and low normal BPs Shock liver/Epigastric abd pain/Mesenteric artery stenosis-2/2 hypotension on admission which is now resolved. AST/ALT in , ALK phos in 300s--> trended downward but still remain mildly elevated, INR 1.2, GI ordered hep serology- hepatitis ABC negative, KERI, AMA, IgG actin all negative Liver US with hepatomegaly mild and fatty liver, s/p cholecystectomy, otherwise normal. 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 Both held and w/ improvement. Hyperkalemia now resolved after starting po lasix and received Lokelma -dcd ARB and continue lasix 20mg bid -follow BMP periodically Anemia- Hgb down to 7.0 and stable from previous, no overt GI bleeding, CT abd/pelvis showing ductal dilatation in pancreas, no mass but may have a small lesion. Gastro consulted: patient does not want any intervention. B12, folate normal; Fe studies anemia of chronic disease, TSH normal Repeat Fe studies then worse later in stay with transferrin sat 5% -Follow CBC periodically -gave IV Venofer 300mg x 1 on 12/21 and again on 12/22, will give one more dose 12/23 DMII-->HgbA1C 7.5%.Controlled, Pharmacy is managing-having hyperglycemia and hypoglycemia-will error on side of hyperglycemia GERD-continue PPI DVT proph-Eliquis Dispo-pt stable for dc to SNF-multiple attempts to get a hold of by CM, finally Palliative Med able to speak to him on 12/22--> he said trial of SNF and go to [facility] if declines. Referrals out for SNF, medically stable for discharge Admission and Anticipated Discharge Date Admission Date: November 25, 2024 Subjective Pt having rectal pain from constipation. Otherwise no complaints Physical Exam Constitutional: no acute distress Eyes: + anicteric sclerae Respiratory: not tachypneic Auscultation: + diminished lung sounds (left base) and + crackles; no wheezes Cardiovascular: Rate/Rhythm: regular rate and regular rhythm Heart Sounds: no murmur Extremities: no edema Psychiatric: A+Ox3, euthymic affect Results & Data Results & Data Vital Signs (Past 12 Hours) Vital Signs Temp Pulse Resp BP Pulse Ox O2 Del Method O2 Flow Rate 12/23/24 14:16 37.3 C 75 17 107/66 94 Nasal Cannula 6 12/23/24 12:47 77 20 96 Nasal Cannula 6 12/23/24 07:40 72 18 94 Nasal Cannula 6 12/23/24 07:30 Room Air 12/23/24 06:58 36.5 C 86 16 93/54 L 93 Nasal Cannula 6 Laboratory Results BMP, magnesium reviewed PG Care Time/CCT Total # of Minutes Spent Total Time Spent with Patient: Total time spent is greater than 50% in coordination of care (as documented) at patient's floor/unit and/or counseling patient: Coding Level of Care Code 38087 SUB INP/OBS CARE 12/18MIN Diagnoses Acute hypercapnic respiratory failure J96.02 Pneumonia J18.9 Laterality: right Lung location: lower lobe of lung Pneumonia type: due to unspecified organism CHF (congestive heart failure) I50.9 Afib I48.91 (2) Pneumonia Laterality: right Lung location: lower lobe of lung Pneumonia type: due to unspecified organism Qualified Code(s): J18.9 - Pneumonia, unspecified organism
[2024-12-23] MEDS: IRON SUCROSE 300 MG in SODIUM CHLORIDE 0.9% 250 ML IV ONE (17:13)
[2024-12-24 08:47] LABS: Basophils # (auto) 0.05 K/uL (0.00-0.20); Basophils % (auto) 0.7 %; Eosinophils # (auto) 0.32 K/uL (0.00-0.50); Eosinophils % (auto) 4.2 %; Hematocrit (blood only) 24.3 % (37.0-47.0); Hemoglobin 7.2 g/dl (12.0-16.0); Immature Granulocytes # (auto) 0.09 K/uL (0.01-0.20); Immature Granulocytes % (auto) 1.2 %; Lymphocytes # (auto) 1.05 K/uL (1.20-3.40); Lymphocytes % (auto) 13.7 %; Mean Corpuscular Hemoglobin 26.5 pg (25.0-34.0); Mean Corpuscular Hgb Conc 29.6 g/dL (32.0-36.0); Mean Corpuscular Volume 89.3 fL (80.0-100.0); Mean Platelet Volume 10.7 fL (9.4-12.4); Monocytes % (auto) 7.9 %; Neutrophils # (auto) 5.53 K/uL (1.40-6.50); Neutrophils % (auto) 72.3 %; Platelet Count 353 K/uL (130-400); RDW Coefficient of Variation 21.1 % (11.5-14.5); RDW Standard Deviation 66.3 fL (36.4-46.3); Red Blood Count 2.72 M/uL (4.20-5.40); White Blood Count 7.64 K/ul (4.8-10.8)
[2024-12-24 08:55] LABS: BUN Creatinine Ratio 22.8 (10-20); Calcium 8.8 mg/dl (8.6-10.3); Creatinine Clr Calc Pharmacy 35.3 ml/min; Magnesium 1.7 mg/dl (1.7-2.4)
[2024-12-24 09:17] LABS: Anisocytosis Present; Basophilic Stippling 1+; Hypochromasia Present; Polychromasia 2+
--- NOTE | 2024-12-24 12:51 | Discharge Summary ---
Discharge Summary Date of Service December 24, 2024 Principal Dx & Hospital Course #1 = Principal Diagnosis (1) Acute hypercapnic respiratory failure: (2) Pneumonia: (3) CHF (congestive heart failure): (4) Afib: Plan 74-year-old female who presents with obtundation due acute on chronic respiratory failure with hypercarbia and hypoxemia. Patient continues to be a current smoker. Patient also tested positive for COVID-19. With collapse of LLL on Chest CT from mucus plugging and PNA Acute on chronic respiratory failure hypercarbia and hypoxemia/Sepsis POA in setting of COVID-19 and UTI and PNA -with a h/o Copd, requiring 9LNC at one point and tachypneic, now weaned down to 6LNC after treatment with Zosyn, azithro, IV decadron and then later IV Solu Medrol, but still has some brief desats with exertion. Ur cx with E. coli-treated with 7 days antibiotics. Consult PULM --> suspected severe aspiration PNA, however she did pass her Speech eval without aspiration Repeat Chest CT again 12/15 shows collapsed LLL Repeat CXR 12/22 with increasing pleural effusions R?L with consolidation, but appears comfortable on 6LNC -Continue hypertonic saline, bronchodilator and inhaled corticosteroid nebs, continue flutter valve, ICS. SHe refuses vibration due to back pain -Continue to wean down O2 as able to keep POx>88%--> she is on 4LNC at home -increased lasix dose to 20mg po bid on 12/22 Paroxysmal Afib/HTN/HFpEF -with last Echo 11/15 Remained in NSR here and has since been downgraded off tele unit. BPs controlled to low normal -Continue metoprolol tartrate 25mg po bid, Eliquis 5mg bid -With pleural effusions on CXR--> started gentle diuresis with lasix 20mg po qAM and increased to bid on 12/22 for increased pleural effusion on CXR -discontinued losartan for mild TATY and low normal BPs Shock liver/Epigastric abd pain/Mesenteric artery stenosis-2/2 hypotension on admission which is now resolved. AST/ALT in 1999s, ALK phos in 300s--> trended downward but still remain mildly elevated, INR 1.2, GI ordered hep serology- hepatitis ABC negative, KERI, AMA, IgG actin all negative Liver US with hepatomegaly mild and fatty liver, s/p cholecystectomy, otherwise normal. 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 Both held and w/ improvement. Hyperkalemia now resolved after starting po lasix and received Lokelma -dcd ARB and continue lasix 20mg bid -follow BMP periodically Anemia- Hgb down to 7.0 and stable from previous, no overt GI bleeding, CT abd/pelvis showing ductal dilatation in pancreas, no mass but may have a small lesion. Gastro consulted: patient does not want any intervention. B12, folate normal; Fe studies anemia of chronic disease, TSH normal Repeat Fe studies then worse later in stay with transferrin sat 5% -Follow CBC periodically -gave IV Venofer 300mg x 1 on 12/21 and again on 12/22, will give one more dose 12/23 DMII-->HgbA1C 7.5%.Controlled, Pharmacy is managing-having hyperglycemia and hypoglycemia-will error on side of hyperglycemia GERD-continue PPI DVT proph-Eliquis Dispo-pt stable for dc to SNF-multiple attempts to get a hold of by CM, finally Palliative Med able to speak to him on 12/22--> he said trial of SNF and go to [facility] if declines. Referrals out for SNF, medically stable for discharge Admission HPI Per Admitting Provider 74-year-old female patient with an extensive past medical history of respiratory disease who continues to smoke. Patient was found with an altered mental status at home by her , with increasing shortness of breath and decreasing mental status. She arrives by ambulance with a significant tachypnea and O2 saturation of 72%. prehospital nebs and solumedrol Covid positive chest x-ray was concerning for a right lower lobe pneumonia. Urine was concerning for urinary tract infection. The patient was medicated with IV Rocephin. ABG revealed a pH of 7.1 with a pCO2 of 89 and a pO2 of 155. I had a conversation with the patient's about her CODE STATUS. He explained th at the patient would not want to be on a ventilator but would want to have CPR and cardiac meds if her heart were to stop. I re contated her and informed him of her grave condition Discharge Exam Constitutional no acute distress Eyes + anicteric sclerae Respiratory not tachypneic Auscultation: + diminished lung sounds (left base) and + crackles; no wheezes Cardiovascular Rate/Rhythm: regular rate and regular rhythm Heart Sounds: no murmur Extremities: no edema Gastrointestinal (Abdomen) Inspection/Auscultation: normal bowel sounds Percussion/Palpation: + abdomen tender (diffuse without guarding or rebound) and abdomen soft Psychiatric Orientation: alert, oriented to person, oriented to place and cooperative; + not oriented to time Discharge Plan Discharge Items Patient Disposition: Transfer [facility] Fac Reason For Visit: HYPERCARBIC RESPIRATORY FAILURE Discharge Diagnosis: Pneumonia,COVID-19, Acute on chronic respiratory failure with hypoxemia and hypercarbia 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 UTI Metabolic encephalopathy Condition on Discharge: Fair Activity: As commented below Lifting: Gradually increase as tolerated Bathing: No limitations Exercise/Sports: Gradually increase as tolerated Non-emergency contact: Primary Care Provider and Order Dispatcher Call non-emergency contact if: you have any medication questions and your symptoms worsen Follow-up/Referrals: Rosi Borges CRNP [Primary Care Provider] - (Follow up within 1-2 weeks after discharge from rehab ) Diet: Regular Diet Texture: Dental soft (bite-sized) Addtl Attending Provider Instructions: You were admitted and had a prolonged hospitalization for pneumonia, COVID, and respiratory failure. You are finally improving and remain on 6LNC O2. You have completed all your antibiotics and need to continue with rehab for strengthening. Please have a chest xray completed in 4 weeks to ensure resolution of your pneumonia. You were also placed on lasix to remove excess fluid from your body. For your constipation, please continue on the laxatives until you are consistently moving your bowels 1-2 times per day. For your anemia, please have a CBC checked in 1 week. You were treated with IV iron while you were here. For your chronic abdominal pain which is likely from blockages in the arteries supplying blood supply to your bowels, you have declined treatment of this and prefer to take pain medication instead which is a reasonable option. Please continue on the OxyContin twice a day scheduled and take IR oxycodone as needed for breakthrough pain. As per discussion with your who is helping to make decisions, if you are not able to make much recovery with rehab or if you have further decline in your condition, the goal of your care would shift to a focus on comfort measures only. Pending Studies at Discharge: No Stand-Alone Forms: My [facility] Skilled Items Patient informed of condition?: Yes DNR: Yes Discharge Level of Care: Skilled Communicable Disease: No Discharge Prognosis: Improving Lines: None Urinary Catheter: No Medications and DC Order Prescriptions: New oxycodone 5 mg Tablet 10 mg PO Q6H PRN (Reason: breakthrough pain, moderate) Qty: 12 0RF oxycodone [OxyContin] 10 mg Tablet,Oral Only,Ext.Rel.12 Hr 10 mg PO BID Qty: 6 0RF sennosides-docusate sodium [Senokot-S] 8.6-50 mg Tablet 1 tab PO QAM Qty: 30 0RF polyethylene glycol 3350 [Miralax] 17 gram Powder In Packet 17 g PO DAILY Qty: 30 0RF Continued aspirin [Uri Low Dose Aspirin] 81 mg Tablet,Delayed Release (Dr/Ec) 81 mg PO QAM Hold Instructions: Resume on 11/28/23. hold until seen by primary care albuterol sulfate [Ventolin HFA] 90 mcg/actuation HFA aerosol inhaler 2 puff INHALATION Q6 PRN (Reason: Shortness Of Breath Or Wheezing) metformin 1,000 mg tablet 1,000 mg PO BID (DME) OneTouch Verio test strips Strip See Rx Instructions .ROUTE .MEDSUPPLY Qty: 50 3RF Rx Instructions: test blood sugar 1-2 times per day folic acid 1 mg tablet 1 mg PO QAM rosuvastatin 20 mg tablet 20 mg PO QAM pantoprazole 40 mg Tablet,Delayed Release (Dr/Ec) 40 mg PO BID Qty: 60 0RF Rx Instructions: qam ipratropium-albuterol 0.5 mg-3 mg(2.5 mg base)/3 mL solution for nebulization 3 ml inhalation Q4H PRN (Reason: shortness of breath) Qty: 90 0RF cyanocobalamin (vitamin B-12) 500 mcg Tablet 1,000 mcg PO QAM Qty: 30 0RF metoprolol succinate 50 mg tablet extended release 24 hr 50 mg PO BID Eliquis 5 mg tablet 5 mg PO BID Hold Instructions: Resume on 05/31/24. Until seen by PCP fluticasone furoate-vilanterol [Breo Ellipta] 100-25 mcg/dose blister with device 1 inh INHALATION DAILY Incruse Ellipta 62.5 mcg/actuation Blister With Device 1 inh INHALATION DAILY Breztri Aerosphere 160-9-4.8 mcg/actuation Hfa Aerosol Inhaler 2 inh INHALATION BID Changed furosemide 20 mg tablet 20 mg PO BID17 Qty: 60 0RF insulin lispro [Humalog KwikPen Insulin] 100 unit/mL insulin pen 5 unit SUBCUT TID Qty: 15 0RF Rx Instructions: before meals sodium chloride 7 % solution for nebulization 1 inh INHALATION BID Qty: 240 0RF insulin glargine 100 unit/mL (3 mL) insulin pen 15 unit SUBCUT QAM Qty: 3 0RF guaifenesin [Mucinex] 600 mg tablet extended release 12hr 1,200 mg PO Q12 Qty: 60 0RF Discontinued losartan 50 mg tablet 50 mg PO QAM budesonide-formoterol 160-4.5 mcg/actuation HFA aerosol inhaler 2 puff INHALATION BID diltiazem HCl 180 mg Capsule,Extended Release 24hr 180 mg PO QAM Qty: 30 5RF formoterol fumarate [Perforomist] 20 mcg/2 mL Solution For Nebulization 20 mcg NEB BIDR Qty: 60 0RF ferrous sulfate 325 mg (65 mg iron) Tablet 325 mg PO BID oxycodone 5 mg tablet 10 mg PO TID PRN (Reason: Pain) Qty: 10 0RF Discharge Orders: Discharge Order (Routine); Ordered 12/24/24 Ordered By: Keren Cobb/Other Patient Handouts: Managing Type 2 Diabetes Admission Data Admit Date/Time: 11/25/24 07:50 Attending Provider: Keren Kraus Admit Provider: Marcelo Witt Primary Care Provider: Rosi Borges Other Providers: [facility]; [facility] [place]; [facility]; Anibal dobson; Marcelo Witt; Edilson Durand; Ramiro Robertson; Sergio Garrett; Lisa Benavides; Jalyn Gomez; Debra Lovett; Dary Martinez; Malachi Rincon; Zainab German; Ronaldo Gamez; Veronique Quinn; Janice Barnes; Leticia Quinones; Elaine Fields; Delaney Bustos; Ramiro John; Yogesh Johnson; Stephie Dukes; Renata Sepulveda Jr; Leandro Barnes; Michael Ojeda; Evan Bautista; Carlos Boswell; Pat Gonzales; Gaetano Cantor I; Anjali Ward; Jay Jay Leonard; Bonita Villalta; Karo Rivera; IRB Approved Study,Jimmy; [facility] Hospital Stay Data Consultations 11/25/24 07:19 ED Decision to Admit Stat 11/25/24 09:26 Consult Pulmonology Routine 12/01/24 17:57 Consult Gastroenterology Routine 12/15/24 12:13 Consult Palliative Care Routine Diagnostic Imagining Performed 11/25/24 22:25 CT head/brain wo con Routine 11/30/24 18:20 CT abd pelvis IV con only Routine 12/02/24 12:54 CT angio chest PE protocol Routine 12/05/24 14:07 US RUQ [US liver] Urgent 12/06/24 US duplex mesenteric Urgent 12/10/24 10:30 FL video swallow Routine 12/12/24 11:38 CTA abdomen wo/w con [CT angio abdomen wo/w con] Urgent 12/15/24 11:13 CT chest diagnostic wo con Urgent Pending Results Patient Have Any Pending Studies at Discharge: No Discharge Instructions Given to Patient (Per Discharging Provider) You were admitted and had a prolonged hospitalization for pneumonia, COVID, and respiratory failure. You are finally improving and remain on 6LNC O2. You have completed all your antibiotics and need to continue with rehab for strengthening. Please have a chest xray completed in 4 weeks to ensure resolution of your pneumonia. You were also placed on lasix to remove excess fluid from your body. For your constipation, please continue on the laxatives until you are consistently moving your bowels 1-2 times per day. For your anemia, please have a CBC checked in 1 week. You were treated with IV iron while you were here. For your chronic abdominal pain which is likely from blockages in the arteries supplying blood supply to your bowels, you have declined treatment of this and prefer to take pain medication instead which is a reasonable option. Please continue on the OxyContin twice a day scheduled and take IR oxycodone as needed for breakthrough pain. As per discussion with your who is helping to make decisions, if you are not able to make much recovery with rehab or if you have further decline in your condition, the goal of your care would shift to a focus on comfort measures only. Coding Diagnoses Acute hypercapnic respiratory failure J96.02 Pneumonia J18.9 Laterality: right Lung location: lower lobe of lung Pneumonia type: due to unspecified organism CHF (congestive heart failure) I50.9 Afib I48.91
--- NOTE | 2024-12-24 15:56 | Hospitalist Progress Note ---
Date of Service December 24, 2024 Assessment & Plan (1) Acute hypercapnic respiratory failure: (2) Pneumonia: (3) CHF (congestive heart failure): (4) Afib: Plan 74-year-old female who presents with obtundation due acute on chronic respiratory failure with hypercarbia and hypoxemia. Patient continues to be a current smoker. Patient also tested positive for COVID-19. With collapse of LLL on Chest CT from mucus plugging and PNA Acute on chronic respiratory failure hypercarbia and hypoxemia/Sepsis POA in setting of COVID-19 and UTI and PNA -with a h/o Copd, requiring 9LNC at one point and tachypneic, now weaned down to 6LNC after treatment with Zosyn, azithro, IV decadron and then later IV Solu Medrol, but still has some brief desats with exertion. Ur cx with E. coli-treated with 7 days antibiotics. Consult PULM --> suspected severe aspiration PNA, however she did pass her Speech eval without aspiration Repeat Chest CT again 12/15 shows collapsed LLL Repeat CXR 12/22 with increasing pleural effusions R?L with consolidation, but appears comfortable on 6LNC -Continue hypertonic saline nebs, bronchodilator and inhaled corticosteroid nebs, continue flutter valve, ICS. SHe refuses vibration due to back pain -Continue to wean down O2 as able to keep POx>88%--> she is on 4LNC at home -increased lasix dose to 20mg po bid on 12/22 and renal function and electrolytes stable Paroxysmal Afib/HTN/HFpEF -with last Echo 11/15 Remained in NSR here and has since been downgraded off tele unit. BPs controlled to low normal -Continue metoprolol 25mg po bid, Eliquis 5mg bid -With pleural effusions on CXR--> started gentle diuresis with lasix 20mg po qAM and increased to bid on 12/22 for increased pleural effusion on CXR -discontinued losartan for mild TATY and low normal BPs. Also discontinued home diltiazem due to low normal BPs Shock liver/Epigastric abd pain/Mesenteric artery stenosis-2/2 hypotension on admission which is now resolved. AST/ALT in 1999s, ALK phos in 300s--> trended downward but still remain mildly elevated, INR 1.2, GI ordered hep serology- hepatitis ABC negative, KERI, AMA, IgG actin all negative Liver US with hepatomegaly mild and fatty liver, s/p cholecystectomy, otherwise normal. 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 Both held and w/ improvement. Hyperkalemia now resolved after starting po lasix and received Lokelma -dcd ARB and continue lasix 20mg bid -follow BMP periodically after discharge Anemia- Hgb down to 7.2 and stable from previous, no overt GI bleeding, CT abd/pelvis showing ductal dilatation in pancreas, no mass but may have a small lesion. Gastro consulted: patient does not want any intervention. B12, folate normal; Fe studies anemia of chronic disease, TSH normal Repeat Fe studies then worse later in stay with transferrin sat 5% -Follow CBC periodically after discharge -gave IV Venofer 300mg x 3 doses during this stay DMII-->HgbA1C 7.5%.Controlled, Pharmacy is managing-having hyperglycemia and hypoglycemia-will error on side of hyperglycemia Can resume home metformin and a lower dose of Lantus at 15 units as well as a lower dose of short acting insulin of 5 units with each meal on discharge-this is a significant reduction from prior dosing GERD-continue PPI DVT proph-Eliquis Dispo-pt stable for dc to SNF-multiple attempts to get a hold of by CM, finally Palliative Med able to speak to him on 12/22--> he said trial of SNF and go to [facility] if declines. She was all set for discharge to [facility] on 12/24, but canceled last minute as her insurance is changing on 12/25 and now needs an insurance authorization. Hopeful for discharge on 12/25 Admission and Anticipated Discharge Date Admission Date: November 25, 2024 Subjective Patient finally moved her bowels. Otherwise has no concerns and is anxious for discharge. She was to be discharged today and then got canceled due to needing insurance authorization. Physical Exam Constitutional: no acute distress Eyes: + anicteric sclerae Respiratory: not tachypneic Auscultation: + diminished lung sounds (left base) and + crackles; no wheezes Cardiovascular: Rate/Rhythm: regular rate and regular rhythm Heart Sounds: no murmur Extremities: no edema Gastrointestinal (Abdomen): Inspection/Auscultation: normal bowel sounds Percussion/Palpation: + abdomen tender (diffuse without guarding or rebound) and abdomen soft Psychiatric: Orientation: alert, oriented to person, oriented to place and cooperative; + not oriented to time Results & Data Results & Data Vital Signs (Past 12 Hours) Vital Signs Temp Pulse Pulse Resp BP BP Pulse Ox 12/24/24 14:07 36.7 C 77 16 115/63 94 12/24/24 13:20 36.7 C 71 78 18 137/70 133/74 93 12/24/24 13:09 71 18 93 12/24/24 08:11 78 18 99 12/24/24 08:00 12/24/24 07:05 36.7 C 77 17 137/70 92 O2 Del Method O2 Flow Rate 12/24/24 14:07 Nasal Cannula 5 12/24/24 13:20 12/24/24 13:09 Nasal Cannula 5 12/24/24 08:11 Nasal Cannula 6 12/24/24 08:00 Nasal Cannula 6 12/24/24 07:05 Nasal Cannula 6 Laboratory Results CBC, BMP, magnesium reviewed PG Care Time/CCT Total # of Minutes Spent Total Time Spent with Patient: Total time spent is greater than 50% in coordination of care (as documented) at patient's floor/unit and/or counseling patient: Coding Level of Care Code 38289 SUB INP/OBS CARE 2/35MIN Diagnoses Acute hypercapnic respiratory failure J96.02 Pneumonia J18.9 Laterality: right Lung location: lower lobe of lung Pneumonia type: due to unspecified organism CHF (congestive heart failure) I50.9 Afib I48.91 (2) Pneumonia Laterality: right Lung location: lower lobe of lung Pneumonia type: due to unspecified organism Qualified Code(s): J18.9 - Pneumonia, unspecified organism
--- NOTE | 2024-12-24 16:13 | Pharmacy Report ---
Pharmacy Glycemic Short Note 2 - Date of Service December 24, 2024 - Glycemic Short BSG Results (Last 24 hours): 12/23/24 12/23/24 12/24/24 16:35 20:20 07:31 Glucose POC Glucose 155 H 217 H 153 H 12/24/24 12/24/24 08:07 11:29 Glucose 136 H POC Glucose 161 H OUTPATIENT ANTIDIABETIC REGIMEN: * Glargine 20 units SC BID * Lispro 8 units SC TIDM * Metformin 1 g PO BID * HbA1c: 7.5% (11/26/24) ASSESSMENT: 12/24: * BSG's stable in the 136-217 mg/dL range since adjustments to regimen yesterday. * No changes to current regimen at this time. BSGs are in acceptable target range given comorbidities and goal to avoid risk of hypoglycemia. 12/23: * Daniella received 25 units of insulin yesterday (15 units basal) with variable BSG control. Of note, patient experienced an episode of asymptomatic hypogl ycemia around dinner time, BSG of 62 mg/dL. Treated with four glucose tablets. * BSG trends have been difficult to follow. Patient experiences both hypoglycemia and hyperglycemia on the same/similar insulin doses. Discussed patient with provider. Agreed to manage patient conservatively given age, palliative status and concerns for hypoglycemia - will aim to keep post prandial BSGs less than 200 mg/dL. When patient does have an episode of hypoglycemia it tends to be at dinner. * Will loosen correctional insulin but slightly increase carb coverage. If patient experiences hypoglycemia at dinner on 12/23, will trial removing Novolog coverage with lunch. * Despite fasting BSG of 297 mg/dL, no changes to Lantus will be made today. 12/21: * BSGs [phone]/dL the last 24h. Received 12 units of basal and 18 units of bolus insulin yesterday. * Tolerating diet. * Basal increased slightly to 15 units this AM given mildly elevated fasting BSGs the last couple of days. No change to Novolog. 12/20: * BSGs erratic the last 24h: [phone]/dL. Received 12 units of basal and 12 units of bolus insulin yesterday. * Tolerating diet, other stressors stable. * Continue 12 units daily of basal. Novolog loosened the previous 2 days given dinnertime lows. Will continue same for now. BSG goal loosened to 120-160mg/dl- continue. 12/17: * Daniella received 16 units of insulin yesterday (10 were basal) * Fasting BSG this AM elevated, will give an additional 5 units of basal with lunch and increase total to 15 units daily tomorrow. Continue will additional scale at bedtime if BSGs elevated\ * Loosen correction factor and increase goal range slightly as some BSGs tend to drop quickly 12/15/24: * Blood sugars trended up throughout the day yesterday * Received 39 units of insulin (20 units of basal and 19 units of prandial/correctional bolus) * Last dose of prednisone was yesterday 12/14 * Will loosen insulin regimen today in light of steroid discontinuation 12/13/24: * Blood sugars have been labile over past 72 hours with multiple episodes of hypoglycemia * Will allow for some hyperglycemia to minimize likelihood of hypoglycemia * Prednisone has been tapered to 20 mg PO daily Refer to previous notes for additional background. PLAN FOR INPATIENT GLYCEMIC CONTROL: * Hold outpatient oral diabetes medications * Basal insulin * Lantus 15 units SC qAM * Bolus insulin * NovoLog per scale ACHS or Q6hrs while NPO * Goal Range: Low 120 mg/dL - High 160 mg/dL (post prandial BSGs <200 is acceptable) * Correction Factor: 45 mg/dL/unit * Nutritional / Prandial insulin per carb ratio of 1 unit per 9 grams CHO consumed
--- NOTE | 2024-12-25 07:27 | Hospitalist Progress Note ---
Date of Service December 25, 2024 Assessment & Plan (1) Acute hypercapnic respiratory failure: (2) Pneumonia: (3) CHF (congestive heart failure): (4) Afib: Plan 74-year-old female who presented with obtundation due acute on chronic respiratory failure with hypercarbia and hypoxemia. Patient continues to be a current smoker. Patient also tested positive for COVID-19. With collapse of LLL on Chest CT from mucus plugging and PNA Acute on chronic respiratory failure hypercarbia and hypoxemia/Sepsis POA in setting of COVID-19 and UTI and PNA -with a h/o Copd, requiring 9LNC at one point and tachypneic, now weaned down to 6LNC after treatment with Zosyn, azithro, IV decadron and then later IV Solu Medrol, but still has some brief desats with exertion. Ur cx with E. coli-treated with 7 days antibiotics. Consult PULM --> suspected severe aspiration PNA, however she did pass her Speech eval without aspiration Repeat Chest CT again 12/15 shows collapsed LLL Repeat CXR 12/22 with increasing pleural effusions R?L with consolidation, but appears comfortable on 6LNC -Continue hypertonic saline nebs, bronchodilator and inhaled corticosteroid nebs, continue flutter valve, ICS. SHe refuses vibration due to back pain -Continue to wean down O2 as able to keep POx>88%--> she is chronically on oxygen at home -increased lasix dose to 20mg po bid on 12/22 and renal function and electrolytes stable Paroxysmal Afib/HTN/HFpEF -with last Echo 11/15 Remained in NSR here and has since been downgraded off tele unit. BPs controlled to low normal -Continue metoprolol 25mg po bid, Eliquis 5mg bid -With pleural effusions on CXR--> started gentle diuresis with lasix 20mg po qAM and increased to bid on 12/22 for increased pleural effusion on CXR -discontinued losartan for mild TATY and low normal BPs. Also discontinued home diltiazem due to low normal BPs Shock liver/Epigastric abd pain/Mesenteric artery stenosis-2/2 hypotension on admission which is now resolved. AST/ALT in 1999s, ALK phos in 300s--> trended downward but still remain mildly elevated, INR 1.2, GI ordered hep serology- hepatitis ABC negative, KERI, AMA, IgG actin all negative Liver US with hepatomegaly mild and fatty liver, s/p cholecystectomy, otherwise normal. 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 Both held and w/ improvement. Hyperkalemia now resolved after starting po lasix and received Lokelma -dcd ARB and continue lasix 20mg bid -follow BMP periodically after discharge Anemia- Hgb down to 7.2 and stable from previous, no overt GI bleeding, CT abd/pelvis showing ductal dilatation in pancreas, no mass but may have a small lesion. Gastro consulted: patient does not want any intervention. B12, folate normal; Fe studies anemia of chronic disease, TSH normal Repeat Fe studies then worse later in stay with transferrin sat 5% -Follow CBC periodically after discharge -gave IV Venofer 300mg x 3 doses during this stay DMII-->HgbA1C 7.5%.Controlled, Pharmacy is managing-having hyperglycemia and hypoglycemia-will error on side of hyperglycemia lower dose of Lantus at 15 units as well as a lower dose of short acting insulin of 5 units with each meal on discharge-this is a significant reduction from prior dosing resume metformin at dc GERD-continue PPI DVT proph-Eliquis Dispo-pt stable for dc to SNF-multiple attempts to get a hold of by CM, finally Palliative Med able to speak to him on 12/22--> he said trial of SNF and go to [facility] if declines. She was all set for discharge to [facility] on 12/24, but canceled last minute as her insurance is changing on 12/25 and now needs an insurance authorization. Admission and Anticipated Discharge Date Admission Date: November 25, 2024 Subjective pt c/o abdominal pain and constipation, however nursing reports liquid bowel movements and continued laxative administration pain seems more derek rectal rather that the pain from her possible arterial insufficiency noted on imaging understands trying to have disposition from hospital but did change insurance this month and now will need a new auth Physical Exam Physical Exam: pleasant and conversant tachypneic, and poor airmovement but not with acute distress, Results & Data Results & Data Vital Signs (Past 12 Hours) Vital Signs Temp Pulse Resp BP Pulse Ox Pulse Ox O2 Del Method 12/25/24 00:59 68 18 93 Nasal Cannula 12/24/24 21:00 92 12/24/24 20:15 87 18 89 L Nasal Cannula 12/24/24 20:10 Nasal Cannula 12/24/24 19:33 99.3 F 82 16 115/66 94 Nasal Cannula O2 Del Method O2 Flow Rate O2 Flow Rate 12/25/24 00:59 6 12/24/24 21:00 Nasal Cannula 6 12/24/24 20:15 5 12/24/24 20:10 6 12/24/24 19:33 5 Laboratory Results review bsg and adjusted ssi PG Care Time/CCT Total # of Minutes Spent Total Time Spent with Patient: Total time spent is greater than 50% in coordination of care (as documented) at patient's floor/unit and/or counseling patient: Coding Level of Care Code 81656 SUB INP/OBS CARE 2/35MIN Diagnoses Acute hypercapnic respiratory failure J96.02 Pneumonia J18.9 Laterality: right Lung location: lower lobe of lung Pneumonia type: due to unspecified organism CHF (congestive heart failure) I50.9 Afib I48.91 (2) Pneumonia Laterality: right Lung location: lower lobe of lung Pneumonia type: due to unspecified organism Qualified Code(s): J18.9 - Pneumonia, unspecified organism
--- NOTE | 2024-12-25 14:51 | Pharmacy Report ---
Pharmacy Glycemic Short Note 2 - Date of Service December 25, 2024 - Glycemic Short BSG Results (Last 24 hours): 12/24/24 12/24/24 12/25/24 16:28 19:56 07:31 POC Glucose 143 H 113 H 147 H 12/25/24 11:33 POC Glucose 248 H OUTPATIENT ANTIDIABETIC REGIMEN: * Glargine 20 units SC BID * Lispro 8 units SC TIDM * Metformin 1 g PO BID * HbA1c: 7.5% (11/26/24) ASSESSMENT: 12/25: * Daniella received 29 units of insulin yesterday, 15 of which were basal. Almost perfect 50/50 basal/bolus regimen. BSGs were [phone] mg/dL. * Fasting BSG was 147 mg/dL this AM. No change to basal. * Lunchtime BSG up to 248 mg/dL. Attending tightened correction factor from 40 to 25 mg/dL. Patient did go hypoglycemic earlier this admission with tighter Novolog parameters but wasn't eating much then. Will trial providers dose this evening to see how patient tolerates. Provider also tightened goal range. 12/24: * BSG's stable in the 136-217 mg/dL range since adjustments to regimen yesterday. * No changes to current regimen at this time. BSGs are in acceptable target range given comorbidities and goal to avoid risk of hypoglycemia. 12/23: * Daniella received 25 units of insulin yesterday (15 units basal) with variable BSG control. Of note, patient experienced an episode of asymptomatic hypoglycemia around dinner time, BSG of 62 mg/dL. Treated with four glucose tablets. * BSG trends have been difficult to follow. Patient experiences both hypoglycemia and hyperglycemia on the same/similar insulin doses. Discussed patient with provider. Agreed to manage patient conservatively given age, palliative status and concerns for hypoglycemia - will aim to keep post prandial BSGs less than 200 mg/dL. When patient does have an episode of hypoglycemia it tends to be at dinner. * Will loosen correctional insulin but slightly increase carb coverage. If patient experiences hypoglycemia at dinner on 12/23, will trial removing Novolog coverage with lunch. * Despite fasting BSG of 297 mg/dL, no changes to Lantus will be made today. for glycemic notes pertaining to information from before 12/23/24, see note on 12/21/24. PLAN FOR INPATIENT GLYCEMIC CONTROL: * Hold outpatient oral diabetes medications * Basal insulin * Lantus 15 units SC AM * Bolus insulin * NovoLog per scale ACHS or Q6hrs while NPO * Goal Range: Low 100 mg/dL - High 150 mg/dL * Correction Factor: 25 mg/dL/unit * Nutritional / Prandial insulin per carb ratio of 1 unit per 10 grams CHO consumed
[2024-12-25] MEDS: HYDROmorphone INJ 0.5 MG/0.5 ML SYR IV STA (15:39)
--- NOTE | 2024-12-25 16:35 | XRay Report ---
Exam: Supine view of the abdomen. COMPARISON: CT study 12/12/2024: FINDINGS: Severely increased stool and gas is seen through the entire colon particularly the rectosigmoid which may indicate an impaction. There is descent below the pubic symphysis consistent with rectocele. No evidence of small bowel obstruction is seen. Clips seen in the right upper quadrant consistent with a cholecystectomy. Aorta is tortuous and appears ectatic and may represent aneurysm. This was demonstrated on the recent CT. Benign densities seen in the proximal right femur most likely representing bone infarct or bone island. IMPRESSION: 1. Severe colonic constipation with possible fecal impaction in the rectosigmoid. 2. Rectocele. 3. Abdominal aortic aneurysm. Electronically signed by Anthony Gan 12-25-2024 4:31 PM
--- NOTE | 2024-12-26 07:54 | Hospitalist Progress Note ---
Date of Service December 26, 2024 Assessment & Plan (1) Acute hypercapnic respiratory failure: (2) Pneumonia: (3) CHF (congestive heart failure): (4) Afib: Plan 74-year-old female who presented with obtundation due acute on chronic respiratory failure with hypercarbia and hypoxemia. Patient continues to be a current smoker. Patient also tested positive for COVID-19. With collapse of LLL on Chest CT from mucus plugging and PNA Acute on chronic respiratory failure hypercarbia and hypoxemia/Sepsis POA in setting of COVID-19 and UTI and PNA -with a h/o Copd, requiring 9LNC at one point and tachypneic, now weaned down to 6LNC after treatment with Zosyn, azithro, IV decadron and then later IV Solu Medrol, but still has some brief desats with exertion. Ur cx with E. coli-treated with 7 days antibiotics. Consult PULM --> suspected severe aspiration PNA, however she did pass her Speech eval without aspiration Repeat Chest CT again 12/15 shows collapsed LLL Repeat CXR 12/22 with increasing pleural effusions R?L with consolidation, but appears comfortable on 6LNC -Continues, bronchodilator and inhaled corticosteroid nebs, continue flutter valve, ICS. SHe refuses vibration due to back pain -Continue to wean down O2 as able to keep POx>88%--> she is chronically on oxygen at home -increased lasix dose to 20mg po bid on 12/22 and renal function and electrolytes stable Paroxysmal Afib/HTN/HFpEF -with last Echo 11/15 Remained in NSR here and has since been downgraded off tele unit. BPs controlled to low normal -Continue metoprolol 25mg po bid, Eliquis 5mg bid -With pleural effusions on CXR--> started gentle diuresis with lasix 20mg po qAM and increased to bid on 12/22 for increased pleural effusion on CXR -discontinued losartan for mild TATY and low normal BPs. Also discontinued home diltiazem due to low normal BPs Shock liver/Epigastric abd pain/Mesenteric artery stenosis-2/2 hypotension on admission which is now resolved. AST/ALT in 1999s, ALK phos in 300s--> trended downward but still remain mildly elevated, INR 1.2, GI ordered hep serology- hepatitis ABC negative, KERI, AMA, IgG actin all negative Liver US with hepatomegaly mild and fatty liver, s/p cholecystectomy, otherwise normal. 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 CTA Abdomen shows 75% stenosis at origin of SMA, multifocal up to 50% stenosis in the horizontal segment-pt declines intervention at this time Doubt the abdominal pain is related to the shock liver but could be however she reports this abdominal pains been ongoing for many months She is now weaned off IV morphine and doing well on Oxycontin and prn po oxycodone for breakthrough -continue Oxycontin, IR oxycodone prn -follow LFTs periodically to resolution -Okay to resume statin TATY/Hyperkalemia-face hardener was up to 1.5 after receiving 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 Both held and w/ improvement. Hyperkalemia now resolved after starting po lasix and received Lokelma -dcd ARB and continue lasix 20mg bid -follow BMP periodically after discharge Anemia- Hgb down to 7.2 and stable from previous, no overt GI bleeding, CT abd/pelvis showing ductal dilatation in pancreas, no mass but may have a small lesion. Gastro consulted: patient does not want any intervention. B12, folate normal; Fe studies anemia of chronic disease, TSH normal Repeat Fe studies then worse later in stay with transferrin sat 5% -Follow CBC periodically after discharge -gave IV Venofer 300mg x 3 doses during this stay DMII-->HgbA1C 7.5%.Controlled, Pharmacy is managing-having hyperglycemia and hypoglycemia-will error on side of hyperglycemia lower dose of Lantus at 15 units as well as a lower dose of short acting insulin of 5 units with each meal on discharge-this is a significant reduction from prior dosing resume metformin at dc GERD-continue PPI continues with pain despite large bowel movement ordered labs, iv pain meds and repeat CT abd/pelvis DVT proph-Eliquis Dispo-pt stable for dc to SNF-multiple attempts to get a hold of by CM, finally Palliative Med able to speak to him on 12/22--> he said trial of SNF and go to [facility] [employer]EC[employer] if declines. She was all set for discharge to [facility] on 12/24, but canceled last minute as her insurance is changing on 12/25 and now needs an insurance authorization. Admission and Anticipated Discharge Date Admission Date: November 25, 2024 Subjective pt c/o significant lower abdominal pain despite large formed bowel movement, continued laxative administration pain seems out of proportion to exam will repeat CT imaging as she has some possible arterial insufficiency noted on imaging understands trying to have disposition from hospital but did change insurance this month and now will need a new auth, [employer] is involved with case Physical Exam Physical Exam: pleasant and conversant tachypneic, and poor air movement but not with acute distress, abd is nabs and soft, tender to suprapubic area Results & Data Results & Data Vital Signs (Past 12 Hours) Vital Signs Temp Pulse Resp BP Pulse Ox Pulse Ox O2 Del Method 12/26/24 07:18 64 18 96 Nasal Cannula 12/26/24 07:17 98.4 F 68 16 124/66 96 Nasal Cannula 12/26/24 02:19 60 16 99 Nasal Cannula 12/25/24 21:00 92 12/25/24 20:10 Nasal Cannula 12/25/24 20:10 88 20 90 Nasal Cannula O2 Del Method O2 Flow Rate O2 Flow Rate 12/26/24 07:18 6 12/26/24 07:17 6 12/26/24 02:19 6 12/25/24 21:00 Nasal Cannula 6 12/25/24 20:10 6 12/25/24 20:10 6 Laboratory Results ordered labs for review 12/26 ordered parenteral pain med ordered CT abd/pelvis PG Care Time/CCT Total # of Minutes Spent Total Time Spent with Patient: Total time spent is greater than 50% in coordination of care (as documented) at patient's floor/unit and/or counseling patient: Coding Level of Care Code 56491 SUB INP/OBS CARE 3/50MIN Diagnoses Acute hypercapnic respiratory failure J96.02 Pneumonia J18.9 Laterality: right Lung location: lower lobe of lung Pneumonia type: due to unspecified organism CHF (congestive heart failure) I50.9 Afib I48.91 (2) Pneumonia Laterality: right Lung location: lower lobe of lung Pneumonia type: due to unspecified organism Qualified Code(s): J18.9 - Pneumonia, unspecified organism
[2024-12-26] MEDS: bisacodyL 10 MG SUPP PR STA (09:19)
[2024-12-26] MEDS: HYDROmorphone INJ 0.5 MG/0.5 ML SYR IV STA (13:36)
[2024-12-26 14:42] LABS: Hematocrit (blood only) 25.1 % (37.0-47.0); Hemoglobin 7.2 g/dl (12.0-16.0); Mean Corpuscular Hemoglobin 26.6 pg (25.0-34.0); Mean Corpuscular Hgb Conc 28.7 g/dL (32.0-36.0); Mean Corpuscular Volume 92.6 fL (80.0-100.0); Mean Platelet Volume 9.8 fL (9.4-12.4); Platelet Count 344 K/uL (130-400); RDW Coefficient of Variation 21.8 % (11.5-14.5); RDW Standard Deviation 72.7 fL (36.4-46.3); Red Blood Count 2.71 M/uL (4.20-5.40); White Blood Count 6.19 K/ul (4.8-10.8)
[2024-12-26 15:01] LABS: Albumin Level 2.9 gm/dl (3.4-5.0); BUN Creatinine Ratio 23.3 (10-20); Bilirubin,Total 0.2 mg/dl (0.2-1.0); Creatinine Clr Calc Pharmacy 31.2 ml/min; Globulin 2.9 gm/dl (2.5-4.0); Potassium 4.1 mmol/L (3.5-5.1); Total Protein 5.8 gm/dl (6.0-8.3)
[2024-12-26] MEDS: OPTIRAY 320 100ml IV ONE (16:11)
--- NOTE | 2024-12-26 16:35 | CT Scan Report ---
HISTORY: Abdominal pain. TECHNIQUE: Helical CT imaging of the abdomen and pelvis was performed following uneventful administration of 93 mL of Optiray 320 IV contrast. Images are presented in axial, sagittal, coronal reformats. COMPARISON: CT the abdomen pelvis dated 12/12/2024. FINDINGS: Lung Bases/Inferior Mediastinum: Severe emphysema. Moderate to large right and small left pleural effusions.Cardiomegaly. Coronary artery calcifications. Liver: Unremarkable Gallbladder: Surgically absent. Spleen: Benign calcified granulomas in the spleen. Adrenals: Bilateral adrenal nodules. The largest nodule involving the hilum of the left adrenal gland Measures 1.7 cm in diameter. This has an indeterminant density on the current study. Density on prior unenhanced study dated 12/12/2024onsistent with a benign adenoma Pancreas: Severe dilation of the Main pancreatic duct is similar to the prior study and measures up to 1.2 cm in diameter. There is severe atrophy of the head and body of the pancreas. Kidneys: Unremarkable Stomach/Bowel: Mildly dilated loops of Small bowel measuring up to 3 cm in diameter. No abrupt transition point is identified. Scattered colonic diverticula without findings of acute diverticulitis. Mild inflammation surrounding the rectosigmoid colon with mild rectal wall thickening. Appendix is not identified. Lymph nodes: Unremarkable Vasculature: Infrarenal abdominal aortic aneurysm measuring up to 4.5 cm in diameter. Severe atherosclerotic vascular disease. Pelvis: Urinary bladder is unremarkable. Uterus is absent. No free pelvic fluid. Soft Tissues: Unremarkable Bones: Degenerative changes of the spine, hips, and pelvis. Grade 1 anterolisthesis of L4 and L5.Lumbar dextroscoliosis.Stable sclerotic lesion involving the right femoral neck when compared to the prior study on 09/05/2023. This lesion is indeterminate. IMPRESSION: * Mild inflammation along the rectosigmoid colon and mild rectal wall thickening. Findings suggesting mild acute proctocolitis. Given mild rectal wall thickening, underlying mass cannot be excluded. Recommend correlation with colonoscopy once acute episode has resolved. * Mildly dilated loops of small bowel throughout the abdomen measuring up to 3 cm in diameter without abrupt transition point. This could represent ileus or developing small bowel obstruction. * Infrarenal abdominal aortic aneurysm measuring up to 4.5 cm in diameter. No significant interval change since the most recent prior study. Vascular surgery consultation is recommended. Follow-up CT the abdomen pelvis with contrast is recommended in 12 months. * Moderate to large right and small left pleural effusions. Mild cardiomegaly. Coronary artery calcifications are present. * Numerous chronic and/or incidental findings as detailed above. Electronically signed by Eugene Laureano 12-26-2024 4:34 PM
[2024-12-27] MEDS ORDERED: POLYETHYLENE (MIRALAX) 17 GM PACK PO PRN (07:54)
[2024-12-27] MEDS: AMOXICILLIN/CLAVULANATE 875 MG TAB PO SCH (09:10)
--- NOTE | 2024-12-27 12:31 | Pharmacy Report ---
Pharmacy Glycemic Short Note 2 - Date of Service December 27, 2024 - Glycemic Short BSG Results (Last 24 hours): 12/26/24 12/26/24 12/26/24 14:08 16:24 20:25 Glucose 124 H POC Glucose 96 158 H 12/27/24 12/27/24 07:41 11:25 Glucose POC Glucose 137 H 143 H OUTPATIENT ANTIDIABETIC REGIMEN: * Glargine 20 units SC BID * Lispro 8 units SC TIDM * Metformin 1 g PO BID * HbA1c: 7.5% (11/26/24) ASSESSMENT: 12/27: * Daniella received 22 units of insulin yesterday, 15 of which were basal. * Fasting BSG was 137 mg/dL this AM. No change to basal. * BG on lower range yesterday, NovoLog parameters loosened yesterday, continue. 12/25: * Daniella received 29 units of insulin yesterday, 15 of which were basal. Almost perfect 50/50 basal/bolus regimen. BSGs were [phone] mg/dL. * Fasting BSG was 147 mg/dL this AM. No change to basal. * Lunchtime BSG up to 248 mg/dL. Attending tightened correction factor from 40 to 25 mg/dL. Patient did go hypoglycemic earlier this admission with tighter Novolog parameters but wasn't eating much then. Will trial providers dose this evening to see how patient tolerates. Provider also tightened goal range. 12/24: * BSG's stable in the 136-217 mg/dL range since adjustments to regimen yesterday. * No changes to current regimen at this time. BSGs are in acceptable target range given comorbidities and goal to avoid risk of hypoglycemia. 12/23: * Daniella received 25 units of insulin yesterday (15 units basal) with variable BSG control. Of note, patient experienced an episode of asymptomatic hypoglycemia around dinner time, BSG of 62 mg/dL. Treated with four glucose tablets. * BSG trends have been difficult to follow. Patient experiences both hypoglycemia and hyperglycemia on the same/similar insulin doses. Discussed patient with provider. Agreed to manage patient conservatively given age, palliative status and concerns for hypoglycemia - will aim to keep post prandial BSGs less than 200 mg/dL. When patient does have an episode of hypoglycemia it tends to be at dinner. * Will loosen correctional insulin but slightly increase carb coverage. If patient experiences hypoglycemia at dinner on 12/23, will trial removing Novolog coverage with lunch. * Despite fasting BSG of 297 mg/dL, no changes to Lantus will be made today. for glycemic notes pertaining to information from before 12/23/24, see note on 12/21/24. PLAN FOR INPATIENT GLYCEMIC CONTROL: * Hold outpatient oral diabetes medications * Basal insulin * Lantus 15 units SC AM * Bolus insulin * NovoLog per scale ACHS or Q6hrs while NPO * Goal Range: Low 120 mg/dL - High 160 mg/dL * Correction Factor: 45 mg/dL/unit * Nutritional / Prandial insulin per carb ratio of 1 unit per 15 grams CHO consumed
--- NOTE | 2024-12-27 20:58 | Hospitalist Progress Note ---
Date of Service December 27, 2024 Assessment & Plan (1) Acute hypercapnic respiratory failure: (2) Pneumonia: (3) CHF (congestive heart failure): (4) Afib: Plan 74-year-old female with a history of paroxysmal A-fib, HTN, HFpEF, COPD, current smoker, DM 2, GERD who presented with obtundation due acute on chronic respiratory failure with hypercarbia and hypoxemia. Patient also tested positive for COVID-19. With collapse of LLL on Chest CT from mucus plugging and PNA and acute on chronic HFpEF #Acute on chronic respiratory failure hypercarbia and hypoxemia/Sepsis POA in setting of COVID-19 and UTI and PNA -with a h/o Copd, requiring 9LNC at one point and tachypneic, now weaned down to 4LNC after treatment with Zosyn, azithro, IV decadron and then later IV Solu Medrol, but still has some brief desats with exertion. Ur cx with E. coli-treated with 7 days antibiotics. Consult PULM --> suspected severe aspiration PNA, however she did pass her Speech eval without aspiration. She had a repeat Chest CT which again 12/15 shows collapsed LLL Repeat CXR 12/22 with increasing pleural effusions R>L with consolidation CT abdomen/pelvis on 12/26 does show pleural effusions at the bases right greater than left but no further collapse of left lower lobe noted and she is on her chronic 4L NC O2 from home -Continue bronchodilator and inhaled corticosteroid, continue flutter valve, ICS -increased lasix dose to 20mg po bid on 12/22 and renal function and electrolytes stable #Paroxysmal Afib/HTN/acute on chronic HFpEF -with last Echo 11/15 Remained in NSR here and has since been downgraded off tele unit. BPs controlled to low normal -Continue metoprolol 25mg po bid, Eliquis 5mg bid -With pleural effusions on CXR--> started gentle diuresis with lasix 20mg po qAM and increased to bid on 12/22 for increased pleural effusion on CXR -discontinued losartan for mild TATY and low normal BPs. Also discontinued home diltiazem due to low normal BPs #Shock liver/Epigastric abd pain/Mesenteric artery stenosis-2/2 hypotension on admission which is now resolved. AST/ALT in 1999s, ALK phos in 300s--> trended downward but still remain mildly elevated, INR 1.2, GI ordered hep serology- hepatitis ABC negative, KERI, AMA, IgG actin all negative Liver US with hepatomegaly mild and fatty liver, s/p cholecystectomy, otherwise normal. 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 CTA Abdomen shows 75% stenosis at origin of SMA, multifocal up to 50% stenosis in the horizontal segment-pt declines intervention at this time Doubt the abdominal pain is related to the shock liver but could be however she reports this abdominal pains been ongoing for many months She is now weaned off IV morphine and doing well on Oxycontin and prn po oxycodone for breakthrough -continue Oxycontin, IR oxycodone prn -follow LFTs periodically to resolution -Okay to resume statin on discharge #Proctocolitis/stercoral colitis-she had severe constipation from opioids and complained of rectal pain. She had numerous bowel movements after laxatives and suppositories from 12/25-12/26. 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 Both held and w/ improvement. Hyperkalemia now resolved after starting po lasix and received Lokelwi -nyd ARB and continue lasix 20mg bid -follow BMP periodically after discharge #Anemia- Hgb down to 7.2 and stable from previous, no overt GI bleeding, CT abd/pelvis showing ductal dilatation in pancreas, no mass but may have a small lesion. Gastro consulted: patient does not want any intervention. B12, folate normal; Fe studies anemia of chronic disease, TSH normal. Repeat Fe studies then worse later in stay with transferrin sat 5% and received 3 doses of IV Venofer 300 mg this day -Follow CBC periodically after discharge -Avoid p.o. iron due to severe constipation #DMII-->HgbA1C 7.5%.Controlled, Pharmacy is managing-having hyperglycemia and hypoglycemia-will error on side of hyperglycemia I lowered the dose of Lantus to 15 units as well as a lower dose of short acting insulin of 5 units with each meal on discharge-this is a significant reduction from prior dosing -resume metformin at [place] #GERD-continue PPI DVT proph-Eliquis Dispo-pt stable for dc to SNF-multiple attempts to get a hold of by CM, finally Palliative Med able to speak to him on 12/22--> he was agreeable to a trial of SNF and transition to [employer] ATTEND[employer] if declines. She was all set for discharge to [facility] on 12/24, but canceled last minute as her insurance is changing on 12/25 and now needs an insurance authorization. Awaiting insurance authorization-hopeful for discharge on 12/28 Admission and Anticipated Discharge Date Admission Date: November 25, 2024 Anticipated date of discharge: 12/28/24 Subjective Patient again asks if she has been discharged home today. She reports her bottom is feeling much better after moving her bowels numerous times yesterday. She was started on Augmentin for proctocolitis/stercoral colitis on 12/26 She denies any other problems Still awaiting insurance authorization for rehab Physical Exam Constitutional: WD/WN, vitals as above Respiratory: normal respiratory effort; no cough Auscultation: + diminished lung sounds (At bases bilaterally); no crackles, no rhonchi and no wheezes Cardiovascular: RRR, no murmur, no edema Gastrointestinal (Abdomen): normal bowel sounds, soft, nontender, no hepatosplenomegaly Psychiatric: Orientation: alert, oriented to person, oriented to place and cooperative; + not oriented to time Results & Data Results & Data Vital Signs (Past 12 Hours) Vital Signs Temp Pulse Resp BP BP Pulse Ox O2 Del Method 12/27/24 20:26 68 143/76 H 12/27/24 19:56 68 18 97 Nasal Cannula 12/27/24 19:43 36.6 C 58 L 18 123/68 93 Nasal Cannula 12/27/24 15:57 36.4 C L 67 20 114/50 L 100 Nasal Cannula 12/27/24 13:07 62 18 97 Nasal Cannula 12/27/24 09:00 78 20 128/70 96 Nasal Cannula O2 Flow Rate 12/27/24 20:26 12/27/24 19:56 4 12/27/24 19:43 4 12/27/24 15:57 4.0 12/27/24 13:07 4 12/27/24 09:00 Laboratory Results No labs for review Diagnostic Findings CT abdomen/pelvis from 12/26 reviewed PG Care Time/CCT Total # of Minutes Spent Total Time Spent with Patient: Total time spent is greater than 50% in coordination of care (as documented) at patient's floor/unit and/or counseling patient: Coding Level of Care Code 60984 SUB INP/OBS CARE 12/18MIN Diagnoses Acute hypercapnic respiratory failure J96.02 Pneumonia J18.9 Laterality: right Lung location: lower lobe of lung Pneumonia type: due to unspecified organism CHF (congestive heart failure) I50.9 Afib I48.91 (2) Pneumonia Laterality: right Lung location: lower lobe of lung Pneumonia type: due to unspecified organism Qualified Code(s): J18.9 - Pneumonia, unspecified organism
[2024-12-28] MEDS: FLUTICASONE/VILANTEROL 100/25MCG 14 PUFFS/INHALER INH SCH (07:57)
[2024-12-28] MEDS: metFORMIN HCL 500 MG TAB PO SCH (11:36)
--- NOTE | 2024-12-28 13:18 | Hospitalist Progress Note ---
Date of Service December 28, 2024 Assessment & Plan (1) Acute hypercapnic respiratory failure: Plan: She presented with a CO2 narcosis but now appears back to her baseline. She is on her usual 4 L/min of oxygen per nasal cannula. (2) Pneumonia: Plan: Treated and resolved. She received Zosyn and azithromycin while hospitalized (3) CHF (congestive heart failure): Plan: Acute on chronic diastolic CHF. Now resolved. Monitor intake and output (4) Afib: Plan: Paroxysmal atrial fibrillation on Eliquis. She appears now to be in normal sinus rhythm. (5) Acute exacerbation of chronic obstructive pulmonary disease: Plan: Present on admission. Now resolved (6) Type 2 diabetes mellitus: Plan: Metformin has been restarted. ADA diet. Sliding scale coverage as needed (7) Chronic pain: Plan: She is opioid dependent and currently takes OxyContin Plan SNF placement is pending. Probably at [facility] in [place] Admission and Anticipated Discharge Date Admission Date: November 25, 2024 Subjective Alert and oriented. No acute distress. Metformin has been restarted. Awaiting eventual discharge to [facility]. Blood pressure is acceptable off of her losartan and diltiazem. She remains on metoprolol Review of Systems 2 Review of Systems: Constitutionalno fever or chills ENTno blurred vision, no double vision, no epistaxis, no sore throat Respiratoryno cough, no wheezing, no shortness of breath at rest Cardiacno palpitations, no chest pain, no syncope Jessica nausea, vomiting, diarrhea, melena, hematochezia GUno urinary retention, no urinary incontinence, no dysuria, no hematuria Musculoskeletalno joint pain, no muscle tenderness Skinno bruising, no rashes, no pruritus Neurono isolated weakness, no paresthesia, no weakness Psychno depression, no anxiety Physical Exam 2 Physical Exam: General-alert and oriented x3, no fever, no chills HEENT-head atraumatic and normocephalic, pupils equal and reactive to light, extraocular muscles intact Neck-no lymphadenopathy or thyromegaly, trachea midline Chest-diminished breath sounds bilaterally. No rales, wheezing or rhonchi Cardiac-regular rate and rhythm, normal S1 and S2 Abdomen-normal bowel sounds, no hepatosplenomegaly Extremities-no cyanosis, clubbing, or edema Neuro-cranial nerves II through XII intact, motor and sensory function within normal limits, strength symmetrical with generalized weakness, no focal deficits Psych-normal affect, normal mood Results & Data Results & Data Vital Signs (Past 12 Hours) Vital Signs Temp Pulse Resp BP Pulse Ox O2 Del Method O2 Flow Rate 12/28/24 12:40 69 20 98 Nasal Cannula 4 12/28/24 07:40 Nasal Cannula 6 12/28/24 07:21 36.6 C 77 16 144/70 H 94 Nasal Cannula 4 12/28/24 07:01 67 18 97 Nasal Cannula 4 12/28/24 01:49 74 16 99 Nasal Cannula 4 Laboratory Results 12/26/24 14:08 12/26/24 14:08 PG Care Time/CCT Total # of Minutes Spent Total Time Spent with Patient: Total time spent is greater than 50% in coordination of care (as documented) at patient's floor/unit and/or counseling patient: Coding Level of Care Code 73531 SUB INP/OBS CARE 2/35MIN Diagnoses Acute hypercapnic respiratory failure J96.02 Pneumonia J18.9 Laterality: right Lung location: lower lobe of lung Pneumonia type: due to unspecified organism CHF (congestive heart failure) I50.9 Afib I48.91 Acute exacerbation of chronic obstructive pulmonary disease J44.1 Type 2 diabetes mellitus E11.9 Chronic pain G89.29 (2) Pneumonia Laterality: right Lung location: lower lobe of lung Pneumonia type: due to unspecified organism Qualified Code(s): J18.9 - Pneumonia, unspecified organism
[2024-12-28 13:50] VITALS: BP 151/70; PULSE 74; RESP 18; TEMP 98.4; O2SAT 96
--- NOTE | 2024-12-28 14:00 | Discharge Summary ---
Discharge Summary Date of Service December 28, 2024 Principal Dx & Hospital Course #1 = Principal Diagnosis (1) Acute hypercapnic respiratory failure: She presented with a CO2 narcosis but now appears back to her baseline. She is on her usual 4 L/min of oxygen per nasal cannula. (2) Pneumonia: Treated and resolved. She received Zosyn and azithromycin while hospitalized (3) CHF (congestive heart failure): Acute on chronic diastolic CHF. Now resolved. Monitor intake and output (4) Afib: Paroxysmal atrial fibrillation on Eliquis. She appears now to be in normal sinus rhythm. (5) Acute exacerbation of chronic obstructive pulmonary disease: Present on admission. Now resolved (6) Type 2 diabetes mellitus: Metformin has been restarted. ADA diet. Sliding scale coverage as needed (7) Chronic pain: She is opioid dependent and currently takes OxyContin Plan SNF placement is pending. Probably at [facility] in [place] Discharge Exam General-alert and oriented x3, no fever, no chills HEENT-head atraumatic and normocephalic, pupils equal and reactive to light, extraocular muscles intact Neck-no lymphadenopathy or thyromegaly, trachea midline Chest-diminished breath sounds bilaterally. No rales, wheezing or rhonchi Cardiac-regular rate and rhythm, normal S1 and S2 Abdomen-normal bowel sounds, no hepatosplenomegaly Extremities-no cyanosis, clubbing, or edema Neuro-cranial nerves II through XII intact, motor and sensory function within normal limits, strength symmetrical with generalized weakness, no focal deficits Psych-normal affect, normal mood Discharge Plan Discharge Items Patient Disposition: Transfer Shelter Fac Reason For Visit: HYPERCARBIC RESPIRATORY FAILURE Discharge Diagnosis: Pneumonia,COVID-19, Acute on chronic respiratory failure with hypoxemia and hypercarbia 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 UTI Metabolic encephalopathy Proctocolitis/stercoral colitis, severe opioid-induced constipation Condition on Discharge: Fair Activity: As commented below Lifting: Gradually increase as tolerated Bathing: No limitations Exercise/Sports: Gradually increase as tolerated Non-emergency contact: Primary Care Provider and Pulp Refiner Operator Call non-emergency contact if: you have any medication questions and your symptoms worsen Follow-up/Referrals: Rosi Borges CRNP [Primary Care Provider] - (Follow up within 1-2 weeks after discharge from rehab ) Diet: Regular Diet Texture: Dental soft (bite-sized) Addtl Attending Provider Instructions: You were admitted and had a prolonged hospitalization for pneumonia, COVID, and respiratory failure. You are finally improving and remain on 4LNC O2 at rest. You may need increased amounts of oxygen with physical therapy/exertion. You have completed all your antibiotics for pneumonia and need to continue with rehab for strengthening. Please have a chest xray completed in 4 weeks to ensure resolution of your pneumonia. You were also placed on lasix to remove excess fluid from your body and from around your lungs. Please check a BMP in 1 week to ensure renal function and potassium levels are normal. For your constipation, please continue on the laxatives so that you are consistently moving your bowels 1-2 times per day. For the proctocolitis, please finish out 5-1/2 more days of the Augmentin. For your anemia, please have a CBC checked in 1 week. You were treated with IV iron while you were here. For your chronic abdominal pain which is likely from blockages in the arteries supplying blood supply to your bowels, you have declined treatment of this and prefer to take pain medication instead which is a reasonable option. Please continue on the OxyContin twice a day scheduled and take IR oxycodone as needed for breakthrough pain. As per discussion with your who is helping to make decisions, if you are not able to make much recovery with rehab or if you have further decline in your condition, the goal of your care would shift to a focus on comfort measures only. Pending Studies at Discharge: No Stand-Alone Forms: [facility] Skilled Items Patient informed of condition?: Yes DNR: Yes Discharge Level of Care: Skilled Communicable Disease: No Discharge Prognosis: Improving Lines: None Urinary Catheter: No Medications and DC Order Prescriptions: New oxycodone 5 mg Tablet 10 mg PO Q6H PRN (Reason: breakthrough pain, moderate) Qty: 12 0RF oxycodone [OxyContin] 10 mg Tablet,Oral Only,Ext.Rel.12 Hr 10 mg PO BID Qty: 6 0RF sennosides-docusate sodium [Senokot-S] 8.6-50 mg Tablet 1 tab PO QAM Qty: 30 0RF polyethylene glycol 3350 [Miralax] 17 gram Powder In Packet 17 g PO DAILY Qty: 30 0RF amoxicillin-pot clavulanate 875-125 mg Tablet 1 tab PO BIDM Qty: 11 0RF Continued (DME) OneTouch Verio test strips Strip See Rx Instructions .ROUTE .MEDSUPPLY Qty: 50 3RF Rx Instructions: test blood sugar 1-2 times per day Eliquis 5 mg tablet 5 mg PO BID Hold Instructions: Resume on 05/31/24. Until seen by PCP Annmarie Aerosphere 160-9-4.8 mcg/actuation Hfa Aerosol Inhaler 2 inh INHALATION BID ipratropium-albuterol 0.5 mg-3 mg(2.5 mg base)/3 mL solution for nebulization 3 ml inhalation Q4H PRN (Reason: shortness of breath) Qty: 90 0RF metoprolol succinate 50 mg tablet extended release 24 hr 50 mg PO BID Qty: 60 0RF aspirin [Uri Low Dose Aspirin] 81 mg Tablet,Delayed Release (Dr/Ec) 81 mg PO QAM Qty: 30 0RF cyanocobalamin (vitamin B-12) 500 mcg Tablet 1,000 mcg PO QAM Qty: 60 0RF pantoprazole 40 mg Tablet,Delayed Release (Dr/Ec) 40 mg PO BID Qty: 60 0RF Rx Instructions: qam metformin 1,000 mg tablet 1,000 mg PO BID Qty: 60 0RF folic acid 1 mg tablet 1 mg PO QAM Qty: 30 0RF albuterol sulfate [Ventolin HFA] 90 mcg/actuation HFA aerosol inhaler 2 puff INHALATION Q6 PRN (Reason: Shortness Of Breath Or Wheezing) Qty: 8.5 0RF rosuvastatin 20 mg tablet 20 mg PO QAM Qty: 30 0RF fluticasone furoate-vilanterol [Breo Ellipta] 100-25 mcg/dose blister with device 1 inh INHALATION DAILY Qty: 60 0RF Incruse Ellipta 62.5 mcg/actuation Blister With Device 1 inh INHALATION DAILY Qty: 30 0RF Changed furosemide 20 mg tablet 20 mg PO BID17 Qty: 60 0RF insulin lispro [Humalog KwikPen Insulin] 100 unit/mL insulin pen 5 unit SUBCUT TID Qty: 15 0RF Rx Instructions: before meals insulin glargine 100 unit/mL (3 mL) insulin pen 15 unit SUBCUT QAM Qty: 3 0RF guaifenesin [Mucinex] 600 mg tablet extended release 12hr 1,200 mg PO Q12 Qty: 60 0RF Discontinued losartan 50 mg tablet 50 mg PO QAM budesonide-formoterol 160-4.5 mcg/actuation HFA aerosol inhaler 2 puff INHALATION BID diltiazem HCl 180 mg Capsule,Extended Release 24hr 180 mg PO QAM Qty: 30 5RF formoterol fumarate [Perforomist] 20 mcg/2 mL Solution For Nebulization 20 mcg NEB BIDR Qty: 60 0RF ferrous sulfate 325 mg (65 mg iron) Tablet 325 mg PO BID sodium chloride 7 % solution for nebulization 1 inh INHALATION BID PRN (Reason: SOB/WHEEZING) oxycodone 5 mg tablet 10 mg PO TID PRN (Reason: Pain) Qty: 10 0RF Discharge Orders: Discharge Order (Routine); Ordered 12/28/24 Ordered By: Timothy Cobb/Other Patient Handouts: Managing Type 2 Diabetes Admission Data Admit Date/Time: 11/25/24 07:50 Attending Provider: Timothy Richards Admit Provider: Marcelo Witt Primary Care Provider: Rosi Borges Other Providers: [facility]; [facility]; Anibal Garza; Marcelo Witt; Edilson Durand; Ramiro Robertson; Sergio Garrett; Lisa Benavides; Jalyn Gomez; Debra Lovett; Dary Martinez; Malachi Rincon; Zainab German; Ronaldo Gamez; Veronique Quinn S; Janice Barnes; Leticia Quinones; Elaine Fields; Delaney Bustos; Ramiro John; Yogesh Johnson; Stephie Dukes; Renata Sepulveda Jr; Leandro Barnes; Michael Ojeda; Evan Bautista; Carlos Boswell; Pat Gonzales; Gaetano Cantor I; Anjali Ward; Jay Jay Leonard; Bonita Villalta; Karo Rivera; IRB Approved Study,Jimmy; [facility] Other Interventions: Discharge Summary Assessment (RN) Last Done: 12/24/24 13:20 Hospital Stay Data Consultations 11/25/24 07:19 ED Decision to Admit Stat 11/25/24 09:26 Consult Pulmonology Routine 12/01/24 17:57 Consult Gastroenterology Routine 12/15/24 12:13 Consult Palliative Care Routine Diagnostic Imagining Performed 11/25/24 22:25 CT head/brain wo con Routine 11/30/24 18:20 CT abd pelvis IV con only Routine 12/02/24 12:54 CT angio chest PE protocol Routine 12/05/24 14:07 US RUQ [US liver] Urgent 12/06/24 US duplex mesenteric Urgent 12/10/24 10:30 FL video swallow Routine 12/12/24 11:38 CTA abdomen wo/w con [CT angio abdomen wo/w con] Urgent 12/15/24 11:13 CT chest diagnostic wo con Urgent 12/26/24 13:22 CT abd pelvis oral and IV con Routine Pending Results Patient Have Any Pending Studies at Discharge: No Discharge Instructions Given to Patient (Per Discharging Provider) You were admitted and had a prolonged hospitalization for pneumonia, COVID, and respiratory failure. You are finally improving and remain on 4LNC O2 at rest. You may need increased amounts of oxygen with physical therapy/exertion. You have completed all your antibiotics for pneumonia and need to continue with rehab for strengthening. Please have a chest xray completed in 4 weeks to ensure resolution of your pneumonia. You were also placed on lasix to remove excess fluid from your body and from around your lungs. Please check a BMP in 1 week to ensure renal function and potassium levels are normal. For your constipation, please continue on the laxatives so that you are consistently moving your bowels 1-2 times per day. For the proctocolitis, please finish out 5-1/2 more days of the Augmentin. For your anemia, please have a CBC checked in 1 week. You were treated with IV iron while you were here. For your chronic abdominal pain which is likely from blockages in the arteries supplying blood supply to your bowels, you have declined treatment of this and prefer to take pain medication instead which is a reasonable option. Please continue on the OxyContin twice a day scheduled and take IR oxycodone as needed for breakthrough pain. As per discussion with your who is helping to make decisions, if you are not able to make much recovery with rehab or if you have further decline in your condition, the goal of your care would shift to a focus on comfort measures only. Total Time Total Time Spent Total Time Spent (In Minutes): 50 minutes Coding Level of Care Code 98546 INP/OBS DISCH >30 MIN Diagnoses Acute hypercapnic respiratory failure J96.02 Pneumonia J18.9 Laterality: right Lung location: lower lobe of lung Pneumonia type: due to unspecified organism CHF (congestive heart failure) I50.9 Afib I48.91 Acute exacerbation of chronic obstructive pulmonary disease J44.1 Type 2 diabetes mellitus E11.9 Chronic pain G89.29
== END 2024-12-28 14:58 | DRG 871 ==
LOC: SUATTDRO → ED 05:38 → SUATTDRO 07:50 → EDINP 07:50 → 2S 20:54 → 3N 12-15 21:15

== ENCOUNTER 2025-04-26 22:15 | Observation (INO) ==
[2025-04-26 22:53] LABS: Basophils # (auto) 0.04 K/uL (0.00-0.20); Basophils % (auto) 0.4 %; Eosinophils # (auto) 0.05 K/uL (0.00-0.50); Eosinophils % (auto) 0.6 %; Hemoglobin 9.9 g/dl (12.0-16.0); Immature Granulocytes # (auto) 0.08 K/uL (0.01-0.20); Immature Granulocytes % (auto) 0.9 %; Lymphocytes # (auto) 1.05 K/uL (1.20-3.40); Lymphocytes % (auto) 11.7 %; Mean Corpuscular Hemoglobin 27.7 pg (25.0-34.0); Mean Corpuscular Volume 92.4 fL (80.0-100.0); Mean Platelet Volume 10.3 fL (9.4-12.4); Monocytes # (auto) 0.57 K/uL (0.11-0.59); Monocytes % (auto) 6.4 %; Neutrophils # (auto) 7.17 K/uL (1.40-6.50); Platelet Count 472 K/uL (130-400); RDW Coefficient of Variation 19.8 % (11.5-14.5); RDW Standard Deviation 67.2 fL (36.4-46.3); Red Blood Count 3.57 M/uL (4.20-5.40); White Blood Count 8.96 K/ul (4.8-10.8)
[2025-04-26] MEDS ORDERED: VANCOMYCIN CONSULT ACTIVE PRN (23:04)
--- NOTE | 2025-04-26 23:09 | Emergency Department Note ---
History of Present Illness General Chief complaint: Dehydration Stated complaint: Dehydration, Diarrhea Time Seen by Provider: 04/26/25 22:36 History of Present Illness This is a 75-year-old female presenting to the emergency department from home via EMS. History is primarily provided by EMS, who states the patient has not been eating, drinking, or taking her normal medications for family. Patient is to wear oxygen at home, but has been refusing this as well. Patient had an episode of diarrhea into her clothing tonight, and patient was found in her own feces on arrival. Office of aging has been contacted and county is aware. The patient has a longstanding history of COPD and respiratory difficulty. She is a tobacco user and is to wear oxygen nasal cannula chronically. The patient herself does not have significant complaints, however she is reportedly with some increased confusion from baseline. Patient has extensive history of sepsis in the past and respiratory failure. Home Medications Medication Instructions Recorded Confirmed Type blood sugar diagnostic (OneTouch #50 ea 06/02/21 04/26/25 Rx Verio test strips) apixaban 5 mg tablet (Eliquis) 5 mg PO BID 04/30/24 04/26/25 History budesonide 160 mcg-glycopyr 9 2 inh inhalation BID 05/23/24 04/26/25 History mcg-formot 4.8 mcg/actuation HFA inhaler (Breztri Aerosphere) guaifenesin 600 mg tablet, 1,200 mg (2 x 600 mg) PO Q12 12/24/24 04/26/25 Rx extended release 12 hr (Mucinex) Congestion #60 tabs insulin glargine 100 unit/mL (3 15 unit (0.15 mL) subcut QAM #3 mL 12/24/24 04/26/25 Rx mL) subcutaneous pen insulin lispro 100 unit/mL 5 unit (0.05 mL) subcut TID #15 mL 12/24/24 04/26/25 Rx subcutaneous pen (Humalog KwikPen (U-100) Insulin) oxycodone 10 mg tablet,crush 10 mg PO BID #6 tabs 12/24/24 04/26/25 Rx resistant,extended release 12 hr (OxyContin) oxycodone 5 mg tablet 10 mg (2 x 5 mg) PO Q6H PRN 12/24/24 04/26/25 Rx breakthrough pain, moderate #12 tabs polyethylene glycol 3350 17 gram 17 g PO DAILY #30 ea 12/24/24 04/26/25 Rx oral powder packet (Miralax) sennosides 8.6 mg-docusate sodium 1 tab PO QAM #30 tabs 12/24/24 04/26/25 Rx 50 mg tablet (Senokot-S) albuterol sulfate 90 mcg/actuation 2 puff inhalation Q6 PRN Shortness 12/27/24 04/26/25 Rx aerosol inhaler (Ventolin HFA) Of Breath Or Wheezing #8.5 grams aspirin 81 mg tablet,delayed 81 mg PO QAM #30 tabs 12/27/24 04/26/25 Rx release (Uri Low Dose Aspirin) cyanocobalamin (vitamin B-12) 500 1,000 mcg (2 x 500 mcg) PO QAM #60 12/27/24 04/26/25 Rx mcg tablet tabs fluticasone furoate 100 1 inh inhalation DAILY #60 ea 12/27/24 04/26/25 Rx mcg-vilanterol 25 mcg/dose inhalation powder (Breo Ellipta) folic acid 1 mg tablet 1 mg PO QAM #30 tabs 12/27/24 04/26/25 Rx ipratropium 0.5 mg-albuterol 3 mg 3 ml inhalation Q4H PRN shortness 12/27/24 04/26/25 Rx (2.5 mg base)/3 mL nebulization of breath #90 mL soln metformin 1,000 mg tablet 1,000 mg PO BID #60 tabs 12/27/24 04/26/25 Rx rosuvastatin 20 mg tablet 20 mg PO QAM #30 tabs 12/27/24 04/26/25 Rx umeclidinium 62.5 mcg/actuation 1 inh inhalation DAILY #30 ea 12/27/24 04/26/25 Rx blister powder for inhalation (Incruse Ellipta) furosemide 20 mg tablet 20 mg PO DAILY Edema 04/26/25 04/26/25 History metoprolol tartrate 50 mg tablet 50 mg PO BID 04/26/25 04/26/25 History pantoprazole 40 mg tablet,delayed 40 mg PO QAM 04/26/25 04/26/25 History release Allergies Allergy/AdvReac Type Severity Reaction Status Date / Time diflunisal AdvReac Intermediate HEART RACES Verified 04/26/25 23:46 Past Med/Surg History Problem List (Updated 04/27/25 @ 02:22 by Pablo Martinez PA-C) TATY (acute kidney injury) (Acute) CHF (congestive heart failure) (Acute) Change in mental state (Acute) Acute and chronic respiratory failure with hypoxia (Acute) Sepsis (Acute) Chronic pain Type 2 diabetes mellitus Cognitive changes Left lower lobe consolidation Elevated LFTs Weakness (Acute) Hypokalemia (Acute) Symptomatic anemia (Acute) Acute GI bleeding (Acute) Tobacco abuse Acute on chronic respiratory failure with hypoxia Left lower lobe pneumonia CHF (congestive heart failure) (Acute) Acute UTI (urinary tract infection) (Acute) Pleural effusion (Acute) Shortness of breath (Acute) Abdominal pain (Acute) Acute hypoxemic respiratory failure (Acute) Hypomagnesemia (Acute) COPD with acute exacerbation (Acute) Pleural effusion (Acute) CHF (congestive heart failure) (Acute) Ambulatory dysfunction Pneumonia (Acute) Acute respiratory distress (Acute) Altered mental status (Acute) Tachycardia (Acute) Hypomagnesemia (Acute) Metabolic encephalopathy Hyperglycemia Acute exacerbation of chronic obstructive pulmonary disease (Acute) Hypoxia (Acute) Afib COPD, very severe Weakness generalized Atrial fibrillation with rapid ventricular response (Acute) Dilated pancreatic duct Positive blood culture Abdominal pain Abdominal pain Lower extremity edema Respiratory distress (Acute) Hypertension (Acute) COPD exacerbation (Acute) Respiratory acidosis (Acute) Elevated lactic acid level (Acute) Tachycardia (Acute) Hypomagnesemia (Acute) Acute bronchitis with chronic obstructive pulmonary disease (COPD) SOB (shortness of breath) (Acute) Anemia (Acute) Chest tightness (Acute) UTI (urinary tract infection) Chronic pain syndrome SOB (shortness of breath) (Acute) COPD exacerbation (Acute) Dizziness (Acute) Acute UTI (Acute) Hypomagnesemia (Acute) Anemia B12 deficiency COPD exacerbation (Acute) Hyperlipidemia Dysphagia Chronic kidney disease HTN (hypertension) Thrombocythemia Chronic low back pain (Chronic) Diaphragmatic hernia (Chronic 10/31/11) Overweight (BMI 25.0-29.9) (Chronic) AAA (abdominal aortic aneurysm) Left peroneal nerve palsy (Chronic) History of knee replacement (Acute) Knee pain, left (Acute) Right knee pain (Acute) Diabetes type 2, uncontrolled (Acute) COPD (chronic obstructive pulmonary disease) (Acute) Medical History Hospital-acquired pneumonia Aspiration pneumonia Current smoker Anemia Sepsis Acute confusion Severe muscle deconditioning COPD exacerbation Respiratory failure Hyperkalemia Acute hypercapnic respiratory failure TATY (acute kidney injury) AMS (altered mental status) Syncope Acute UTI Acute hypotension Chronic kidney disease, stage 3a Acute kidney injury Acute exacerbation of chronic low back pain Candidiasis of mouth and esophagus DVT prophylaxis Diabetes mellitus COPD (chronic obstructive pulmonary disease) Hypertension Hyperlipidemia Acute on chronic respiratory failure with hypoxia and hypercapnia Family History Other Family history non-contributory Social History Smoking Status: Current every day smoker Tobacco Type: Cigarettes Age Started Using Tobacco: 32; Cigarettes Per Day: 10; Second Hand Exposure: Yes; Do You Dip or Chew Tobacco: No; Hx Alcohol Use: No Hx Substance Use: No Preferred Language: Telugu Communication Ability: Effective Chain Saw Mechanic Required: No Beliefs That Will Affect Care: None marital status: Current Living Situation: Spouse Current Living Situation Comment: With Juan How many Children do You have: 3 Feels Safe at Home: Yes Assistive Devices: Cane, Walker and Wheelchair Review of Systems A total of 10 systems reviewed and were otherwise negative Physical Exam Vital Signs Vital Signs - 24 hr 04/26/25 22:24 04/26/25 22:30 04/26/25 22:30 Temperature 36.7 C Temperature Source Oral Pulse Rate 75 75 75 Pulse Rate from SpO2 Sensor 75 Respiratory Rate 24 28 H Respiratory Effort / Characteristics Non-Labored Spontaneous Respiratory Depth Normal Respiratory Pattern Regular Blood Pressure 121/61 121/61 Blood Pressure Mean 81 81 Pulse Oximetry 98 100 Oxygen Delivery Method Nasal Cannula Nasal Cannula Oxygen Flow Rate 4 2 Sepsis Recent Fever Within 48 Hours No Sepsis New/Unexplained Change in Mental Status N/A Sepsis Action Taken by Nursing No Action Required 04/26/25 23:08 04/26/25 23:24 04/27/25 00:15 Temperature Temperature Source Pulse Rate 74 87 Pulse Rate from SpO2 Sensor 75 86 Respiratory Rate 28 H 20 20 Respiratory Effort / Characteristics Non-Labored Spontaneous Respiratory Depth Respiratory Pattern Blood Pressure 109/54 L Blood Pressure Mean 72 Pulse Oximetry 98 100 100 Oxygen Delivery Method Nasal Cannula Nasal Cannula Nasal Cannula Oxygen Flow Rate 2 2 2 Sepsis Recent Fever Within 48 Hours Sepsis New/Unexplained Change in Mental Status Sepsis Action Taken by Nursing 04/27/25 00:45 04/27/25 01:00 04/27/25 01:15 Temperature Temperature Source Pulse Rate 94 H 84 87 Pulse Rate from SpO2 Sensor 85 85 85 Respiratory Rate 20 22 22 Respiratory Effort / Characteristics Respiratory Depth Respiratory Pattern Blood Pressure 105/48 L 112/52 L 112/52 L Blood Pressure Mean 67 69 72 Pulse Oximetry 96 95 99 Oxygen Delivery Method Nasal Cannula Nasal Cannula Nasal Cannula Oxygen Flow Rate 2 2 2 Sepsis Recent Fever Within 48 Hours Sepsis New/Unexplained Change in Mental Status Sepsis Action Taken by Nursing VITALS: Vitals are noted on the nurse's note and reviewed by myself. Vital signs stable. GENERAL: Chronically ill-appearing white female who is in no acute distress. She will answer questions, although slightly slower than expected. HEAD: Normocephalic atraumatic. HEART: Regular rate and rhythm without murmurs gallops or rubs. LUNGS: Diffuse wheezing and rhonchi throughout ABDOMEN: Positive normal bowel sounds x 4. Soft, nontender, without masses or organomegaly. MUSCULOSKELETAL: No muscle atrophy, erythema, or edema noted. NEURO: Patient was alert and oriented to person place and time. SKIN: The skin was without rashes, erythema, edema, or bruising. Capillary refill less than 2 seconds. Course Administered Medications Discontinued Medications Albuterol (Albut/Ipratrop 3mg/0.5mg Neb 3 Ml Vial) 12 ml NEB ONE ONE; Protocol Stop: 04/26/25 22:55 Last Admin: 04/26/25 23:10 Dose: 12 ml Documented By: [id number] Sodium Chloride (Nss) 1,000 mls @ 999 mls/hr IV .Q1H1M [facility] Stop: 04/26/25 23:45 Last Infusion: 04/27/25 01:14 Dose: 100 mls/hr Documented By: Infusion: 04/26/25 23:27 Dose: 50 mls/hr Documented By: Admin: 04/26/25 23:26 Dose: 999 mls/hr Documented By: RAYMUNDO Vancomycin HCl 1,000 mg/ (Sodium Chloride) 520 mls @ 200 mls/hr IV NOW ONE Stop: 04/27/25 01:39 Last Admin: 04/26/25 23:58 Dose: 200 mls/hr Documented By: RAYMUNDO Piperacillin Sod/Tazobactam Sod (Zosyn) 4.5 gm in 100 mls @ 200 mls/hr IV NOW ONE; Protocol Stop: 04/26/25 23:33 Last Infusion: 04/26/25 23:59 Dose: Infused Documented By: Admin: 04/26/25 23:26 Dose: 200 mls/hr Documented By: RAYMUNDO Medical Decision Making Differential Diagnosis Differential diagnosis: Etiologies such as sepsis, UTI, pneumonia, bacteremia, metabolic process, electrolyte abnormalities, cardiac sources, intracerebral event, intra-abdominal process, toxicological process, neurologic process, as well as others were entertained. Laboratory Data 04/26/25 22:30 04/27/25 00:47 Lab Results 04/26/25 04/26/25 04/26/25 Range/Units 22:30 22:48 23:01 WBC 8.96 (4.8-10.8) K/ul RBC 3.57 L (4.20-5.40) M/uL Hgb 9.9 L (12.0-16.0) g/dl Hct 33.0 L (37.0-47.0) % MCV 92.4 (80.0-100.0) fL MCH 27.7 (25.0-34.0) pg MCHC 30.0 L (32.0-36.0) g/dL RDW Std Deviation 67.2 H (36.4-46.3) fL RDW Coeff of Dorcas 19.8 H (11.5-14.5) % Plt Count 472 H (130-400) K/uL MPV 10.3 (9.4-12.4) fL Immature Gran % (Auto) 0.9 % Neut % (Auto) 80.0 % Lymph % (Auto) 11.7 % [place] % (Auto) 6.4 % Eos % (Auto) 0.6 % Baso % (Auto) 0.4 % Neut # (Auto) 7.17 H (1.40-6.50) K/uL Lymph # (Auto) 1.05 L (1.20-3.40) K/uL [place] # (Auto) 0.57 (0.11-0.59) K/uL Eos # (Auto) 0.05 (0.00-0.50) K/uL Baso # (Auto) 0.04 (0.00-0.20) K/uL Immature Gran # (Auto) 0.08 (0.01-0.20) K/uL VBG pH 7.22 L (7.36-7.41) VBG pCO2 64 H (38-50) mmHg VBG pO2 25 mmHg VBG HCO3 26 mmol/L VBG O2 Saturation < 60.0 % VBG Base Excess -2.8 mEq/L Sodium 138 (136-145) mmol/L Potassium TNP Chloride 105 (98-107) mmol/L Carbon Dioxide 26 (21-32) mmol/L Anion Gap 7 (3-11) BUN 51 H (6-23) mg/dl Creatinine 1.94 H (0.6-1.2) mg/dl Est Cr Clr Drug Dosing 21.6 ml/min eGFR 26.86 BUN/Creatinine Ratio 26.3 H (10-20) Glucose 147 H (70-99(Fasting)) mg/dl Lactate 2.2 H* (0.4-2.0) mmol/L Calcium 9.2 (8.6-10.3) mg/dl Magnesium 1.9 (1.7-2.4) mg/dl Total Bilirubin 0.3 (0.2-1.0) mg/dl Direct Bilirubin TNP AST 26 (13-39) U/L ALT 43 (7-52) U/L Alkaline Phosphatase 153 H (34-104) U/L Ammonia 22.0 (18-72) umol/L Troponin I High Sens 14.1 H (0-14) pg/ml B-Natriuretic Peptide 217 H (0-100) pg/ml Total Protein 7.0 (6.0-8.3) gm/dl Albumin 3.6 (3.4-5.0) gm/dl Procalcitonin 8.64 H (0-0.5) ng/ml Urine Color Urine Appearance (Clear) Urine pH (4.5-7.5) Ur Specific [place] (1.000-1.030) Urine Protein (Negative) Urine Glucose (UA) (Negative) Urine Ketones (Negative) Urine Blood (Negative) Urine Nitrite (Negative) Urine Bilirubin (Negative) Urine Urobilinogen (Negative) Ur Leukocyte Esterase (Negative) Urine WBC (Auto) (0-5) /hpf Urine RBC (Auto) (0-2) /hpf U Hyaline Cast (Auto) (0-2) /lpf U Epithel Cells (Auto) (0-2) /hpf Urine Bacteria (Auto) (None Seen) Granular Casts (None Prsent) /lpf Urine Comment Urine Opiates Screen (Neg) Ur Methadone, Qual (Neg) Urine Fentanyl Screen (Neg) Urine Barbiturates (Neg) Ur Phencyclidine (PCP) (Neg) U Amphetamin/Meth Scrn (Neg) MDMA (Ecstasy) Screen (Neg) U Benzodiazepines Scrn (Neg) Ur Cocaine Metabolite (Neg) U Marijuana (THC) Screen (Neg) Ethyl Alcohol mg/dL < 10.0 (<10.0) mg/dl 04/26/25 04/27/25 04/27/25 Range/Units 23:20 00:47 00:52 WBC (4.8-10.8) K/ul RBC (4.20-5.40) M/uL Hgb (12.0-16.0) g/dl Hct (37.0-47.0) % MCV (80.0-100.0) fL MCH (25.0-34.0) pg MCHC (32.0-36.0) g/dL RDW Std Deviation (36.4-46.3) fL RDW Coeff of Dorcas (11.5-14.5) % Plt Count (130-400) K/uL MPV (9.4-12.4) fL Immature Gran % (Auto) % Neut % (Auto) % Lymph % (Auto) % [place] % (Auto) % Eos % (Auto) % Baso % (Auto) % Neut # (Auto) (1.40-6.50) K/uL Lymph # (Auto) (1.20-3.40) K/uL [place] # (Auto) (0.11-0.59) K/uL Eos # (Auto) (0.00-0.50) K/uL Baso # (Auto) (0.00-0.20) K/uL Immature Gran # (Auto) (0.01-0.20) K/uL VBG pH (7.36-7.41) VBG pCO2 (38-50) mmHg VBG pO2 mmHg VBG HCO3 mmol/L VBG O2 Saturation % VBG Base Excess mEq/L Sodium (136-145) mmol/L Potassium 5.6 H Chloride (98-107) mmol/L Carbon Dioxide (21-32) mmol/L Anion Gap (3-11) BUN (6-23) mg/dl Creatinine (0.6-1.2) mg/dl Est Cr Clr Drug Dosing ml/min eGFR BUN/Creatinine Ratio (10-20) Glucose (70-99(Fasting)) mg/dl Lactate 1.6 (0.4-2.0) mmol/L Calcium (8.6-10.3) mg/dl Magnesium (1.7-2.4) mg/dl Total Bilirubin (0.2-1.0) mg/dl Direct Bilirubin 0.1 AST (13-39) U/L ALT (7-52) U/L Alkaline Phosphatase (34-104) U/L Ammonia (18-72) umol/L Troponin I High Sens (0-14) pg/ml B-Natriuretic Peptide (0-100) pg/ml Total Protein (6.0-8.3) gm/dl Albumin (3.4-5.0) gm/dl Procalcitonin (0-0.5) ng/ml Urine Color Yellow Urine Appearance Cloudy A (Clear) Urine pH 5.0 (4.5-7.5) Ur Specific [place] 1.019 (1.000-1.030) Urine Protein 3+ H (Negative) Urine Glucose (UA) Negative (Negative) Urine Ketones Trace H (Negative) Urine Blood Negative (Negative) Urine Nitrite Negative (Negative) Urine Bilirubin Negative (Negative) Urine Urobilinogen Negative (Negative) Ur Leukocyte Esterase 1+ H (Negative) Urine WBC (Auto) 11-20 H (0-5) /hpf Urine RBC (Auto) 3-5 H (0-2) /hpf U Hyaline Cast (Auto) >20 H (0-2) /lpf U Epithel Cells (Auto) 11-20 H (0-2) /hpf Urine Bacteria (Auto) None Seen (None Seen) Granular Casts Present A (None Prsent) /lpf Urine Comment Urine Opiates Screen Pos H (Neg) Ur Methadone, Qual Neg (Neg) Urine Fentanyl Screen Neg (Neg) Urine Barbiturates Neg (Neg) Ur Phencyclidine (PCP) Neg (Neg) U Amphetamin/Meth Scrn Neg (Neg) MDMA (Ecstasy) Screen Neg (Neg) U Benzodiazepines Scrn Neg (Neg) Ur Cocaine Metabolite Neg (Neg) U Marijuana (THC) Screen Neg (Neg) Ethyl Alcohol mg/dL (<10.0) mg/dl Imaging Data Radiologist's Impression: Chest X-Ray 04/26/25 22:37 EXAM: XR chest 1V portable CLINICAL HISTORY: Sepsis TECHNIQUE: An X-ray image of the chest is obtained in AP projection. COMPARISON: 11/25/2024 05:52:22 RESOURCE COORDINATOR FINDINGS: Pulmonary Parenchyma: Hypertransradiant lung monsivais suggesting chronic air trapping. Prominent bronchovascular markings bilaterally mainly in the upper lung monsivais suggestive of chronic bronchitis. 2 small nodules measuring 4 and 4.5 mm in right basal lung. No evidence of consolidation, collapse, or focal opacities. No evidence of pleural effusion or pleural thickening. Heart and Mediastinum: Heart size and shape are normal. No mediastinal widening or masses. No hilar or mediastinal lymphadenopathy. Bony Thorax: Bony thorax appears intact without fractures or deformities. Soft Tissues: Soft tissues overlying the chest wall are unremarkable. IMPRESSION: Redemonstration of COPD. Interval resolution of atelectatic band in the right middle zone. No definite consolidation, cavitation and pleural effusion Electronically signed by Dionicio Cruz 04-27-2025 12:54 AM [facility] Narrative Physical exam and history were performed. Nursing notes, EMR, and Medication List were personally reviewed. No social concerns were identified as barriers to patients care. History was provided primarily by EMS, and minimally from the patient. Patient appears to have increasing weakness with failure to thrive at home. She is having some increased confusion, although she seems to answer questions appropriately, but slowly. According to family reports to EMS, the patient is refusing all of her home medical care, and they are concerned for her wellbeing. The patient on exam appears chronically ill with diffuse lung disease. The patient herself does not have any significant complaints. IV access was established and labs were obtained. Patient was started on a sepsis fluid bolus, however she has a history of heart failure and I did not want to volume overload her when she is already with some difficulty breathing. Patient was given an hour-long DuoNeb. An order was placed for continuous cardiac monitoring. The monitor shows a rate of 72 with normal sinus rhythm. Patient's blood work is as above and was reviewed. She does not have a significantly elevated white blood cell count. She is mildly anemic at 9.9. VBG does show some P CO2 retention and acidosis with pH at 7.22. Creatinine is slightly elevated at 1.94, whereas the patient's baseline typically is 1.1-1.4. Initial lactic acid was elevated at 2.2 with repeat at 1.6. She was started on vancomycin and Zosyn here in the ER. High-sensitivity troponin is 14.1, which is improved from her last troponin of 28.7. BNP is elevated at 217 suggesting some element of heart failure. Escalation of care was considered, and felt to be necessary with this patient. She seems to have some respiratory acidosis, mild TATY, heart failure, and clinical picture concerning for sepsis. Thankfully the patient's vitals remain stable, and she able to rest here comfortably. Case was discussed with my attending who remained involved in care and decision making. Case was also discussed with the on-call hospitalist team. Please see their dictation for further patient course, plan, disposition. The chart was completed utilizing [employer] Speech Voice Recognition Software. Grammatical errors, random word insertions, pronoun errors, and incomplete sentences are an occasional consequence of this system due to software limitations, ambient noise, and hardware issues. Any formal questions or concerns about the content, text, or information contained within the body of this dictation should be directly addressed to the provider for clarification. Impression & Plan Sepsis, Acute and chronic respiratory failure with hypoxia, Change in mental state, CHF (congestive heart failure), TATY (acute kidney injury) Discharge Plan Visit Data Chief Complaint: Dehydration Stated Complaint: Dehydration, Diarrhea ED Provider: Alexandria Dominguez ED Midlevel Provider: Pablo Martinez Discharge Problem: Sepsis, Acute and chronic respiratory failure with hypoxia, Change in mental state, CHF (congestive heart failure), TATY (acute kidney injury) Patient Disposition: Admitted As Inpatient Condition: Fair Forms Stand Alone Forms: My [facility] Electronic Payment and Services (EPS) Prescriptions Prescriptions: No Action (DME) OneTouch Verio test strips Strip See Rx Instructions .ROUTE .MEDSUPPLY Qty: 50 3RF Rx Instructions: test blood sugar 1-2 times per day Eliquis 5 mg tablet 5 mg PO BID Hold Instructions: Resume on 07/08/24. Until seen by PCP Annmarie Aerosphere 160-9-4.8 mcg/actuation Hfa Aerosol Inhaler 2 inh INHALATION BID oxycodone 5 mg Tablet 10 mg PO Q6H PRN (Reason: breakthrough pain, moderate) Qty: 12 0RF oxycodone [OxyContin] 10 mg Tablet,Oral Only,Ext.Rel.12 Hr 10 mg PO BID Qty: 6 0RF sennosides-docusate sodium [Senokot-S] 8.6-50 mg Tablet 1 tab PO QAM Qty: 30 0RF polyethylene glycol 3350 [Miralax] 17 gram Powder In Packet 17 g PO DAILY Qty: 30 0RF insulin lispro [Humalog KwikPen Insulin] 100 unit/mL insulin pen 5 unit SUBCUT TID Qty: 15 0RF Rx Instructions: before meals insulin glargine 100 unit/mL (3 mL) insulin pen 15 unit SUBCUT QAM Qty: 3 0RF guaifenesin [Mucinex] 600 mg tablet extended release 12hr 1,200 mg PO Q12 Qty: 60 0RF ipratropium-albuterol 0.5 mg-3 mg(2.5 mg base)/3 mL solution for nebulization 3 ml inhalation Q4H PRN (Reason: shortness of breath) Qty: 90 0RF aspirin [Uri Low Dose Aspirin] 81 mg Tablet,Delayed Release (Dr/Ec) 81 mg PO QAM Qty: 30 0RF cyanocobalamin (vitamin B-12) 500 mcg Tablet 1,000 mcg PO QAM Qty: 60 0RF metformin 1,000 mg tablet 1,000 mg PO BID Qty: 60 0RF folic acid 1 mg tablet 1 mg PO QAM Qty: 30 0RF albuterol sulfate [Ventolin HFA] 90 mcg/actuation HFA aerosol inhaler 2 puff INHALATION Q6 PRN (Reason: Shortness Of Breath Or Wheezing) Qty: 8.5 0RF rosuvastatin 20 mg tablet 20 mg PO QAM Qty: 30 0RF fluticasone furoate-vilanterol [Breo Ellipta] 100-25 mcg/dose blister with device 1 inh INHALATION DAILY Qty: 60 0RF Incruse Ellipta 62.5 mcg/actuation Blister With Device 1 inh INHALATION DAILY Qty: 30 0RF metoprolol tartrate 50 mg tablet 50 mg PO BID pantoprazole 40 mg tablet,delayed release (DR/EC) 40 mg PO QAM furosemide 20 mg tablet 20 mg PO DAILY Referrals Referrals: Rosi Borges CRNP [Primary Care Provider] -
[2025-04-26] MEDS: ALBUT/IPRATROP 3MG/0.5MG NEB 3 ML VIAL NEB ONE (23:10)
[2025-04-26 23:25] LABS: Base Excess VBG -2.8 mEq/L; HCO3 VBG 26 mmol/L; Oxygen Saturation VBG < 60.0 %; PCO2 VBG 64 mmHg (38-50); PO2 VBG 25 mmHg; pH VBG 7.22 (7.36-7.41)
[2025-04-26] MEDS: SODIUM CHLORIDE 0.9% 1,000 ML IV SCH (23:26)
[2025-04-26] MEDS: PIPERACILLIN/TAZOBACTAM 4.5 GM/100 ML BAG IV ONE (23:26)
[2025-04-26 23:40] LABS: Alanine Aminotransferase 43 U/L (7-52); Albumin Level 3.6 gm/dl (3.4-5.0); Alkaline Phosphatase 153 U/L (34-104); Anion Gap 7 (3-11); Aspartate Aminotransferase 26 U/L (13-39); BUN Creatinine Ratio 26.3 (10-20); Bilirubin,Total 0.3 mg/dl (0.2-1.0); Blood Urea Nitrogen 51 mg/dl (6-23); Calcium 9.2 mg/dl (8.6-10.3); Carbon Dioxide 26 mmol/L (21-32); Chloride 105 mmol/L (98-107); Creatinine Clr Calc Pharmacy 21.6 ml/min; Glucose 147 mg/dl (70-99(Fasting)); Magnesium 1.9 mg/dl (1.7-2.4); Sodium 138 mmol/L (136-145); Troponin I High Sensitivity 14.1 pg/ml (0-14)
[2025-04-26 23:45] LABS: Appearance Urine Cloudy (Clear); Bacteria Urine Automated None Seen (None Seen); Bilirubin Urine Negative (Negative); Blood Urine Negative (Negative); Cast Urine Automated >20 /lpf (0-2); Color Urine Yellow; Glucose Urine UA Negative (Negative); Granular Casts Urine Present /lpf (None Prsent); Ketones Urine Trace (Negative); Leukocyte Esterase Urine 1+ (Negative); Nitrite Urine Negative (Negative); Protein Urine 3+ (Negative); Specific Gravity Urine 1.019 (1.000-1.030); Urobilinogen Urine Negative (Negative)
[2025-04-26] MEDS: VANCOMYCIN HCL 1,000 MG in SODIUM CHLORIDE 0.9% 500 ML IV ONE (23:58)
[2025-04-27 00:10] LABS: Amphetamines+Metham, Urine Neg (Neg); Barbiturates, Urine Neg (Neg); Benzodiazepine, Urine Neg (Neg); Cocaine, Urine Neg (Neg); Fentanyl, Urine Neg (Neg); MDMA (Ecstacy), Urine Neg (Neg); Marijuana, Urine Neg (Neg); Methadone, Urine Neg (Neg); Opiate, Urine Pos (Neg); Phencyclidine, Urine Neg (Neg)
--- NOTE | 2025-04-27 00:55 | XRay Report ---
EXAM: XR chest 1V portable CLINICAL HISTORY: Sepsis TECHNIQUE: An X-ray image of the chest is obtained in AP projection. COMPARISON: 11/25/2024 05:52:22 STITCH SEPARATOR FINDINGS: Pulmonary Parenchyma: Hypertransradiant lung monsivais suggesting chronic air trapping. Prominent bronchovascular markings bilaterally mainly in the upper lung monsivais suggestive of chronic bronchitis. 2 small nodules measuring 4 and 4.5 mm in right basal lung. No evidence of consolidation, collapse, or focal opacities. No evidence of pleural effusion or pleural thickening. Heart and Mediastinum: Heart size and shape are normal. No mediastinal widening or masses. No hilar or mediastinal lymphadenopathy. Bony Thorax: Bony thorax appears intact without fractures or deformities. Soft Tissues: Soft tissues overlying the chest wall are unremarkable. IMPRESSION: Redemonstration of COPD. Interval resolution of atelectatic band in the right middle zone. No definite consolidation, cavitation and pleural effusion Electronically signed by Dionicio Cruz 04-27-2025 12:54 AM
--- NOTE | 2025-04-27 01:18 | History & Physical Report ---
Date of Service April 27, 2025 Assessment & Plan (1) Diarrhea: (2) Type 2 diabetes mellitus: (3) Hypertension: (4) Acute bronchitis with chronic obstructive pulmonary disease (COPD): Plan 75-year-old female presenting from home with decreased oral intake, abdominal pain and diarrhea #Diarrhea Check stool PCR Check CT of the abdomen LR at 125 mL/h x 1 L Pain control with Tylenol as needed, oxycodone as needed Zofran as needed for nausea #TATY on CKDcreatinine = 1.94 which is increased from 1.29. Potassium is mildly elevated at 5.6. No EKG changes Avoid nephrotoxic agents Renal dosing were needed Continue hydration with LR x 1 L repeat chemistry in the morning #COPD Albuterol as needed DuoNeb as needed Continue Breo Ellipta or formulary equivalent Continue guaifenesin #Atrial fibrillation Continue apixaban 5 mg p.o. twice daily #Diabetes Lantus 5 units twice daily Insulin sliding scale #GERD Continue Protonix 40 mg p.o. every morning #Hyperlipidemia Continue Crestor 20 mg p.o. every morning History of Present Illness Chief Complaint: abdominal pain, diarrhea Primary Care Provider: BRET Espinoza Daniella Gandara is a 75yo female with history of acute hypoxic respiratory failure secondary to COPD on home O2, HTN, HLP, DM and CKD presenting from home with poor oral intake, non-adherence to medications and refusing her supplemental O2. Patient had several episodes of diarrhea prior to arrival. No family present during my encounter. Patient asleep but arousable. States that she is having severe abdominal pain and diarrhea. She has not noticed any blood. No report of fever, chills, chest pain, cough, SOB. Patient did not answer when asked if she has been taking her home medications. *[facility] has been contacted Allergies Allergy/AdvReac Type Severity Reaction Status Date / Time diflunisal AdvReac Intermediate HEART RACES Verified 04/26/25 23:46 Home Medications Medication Instructions Recorded Confirmed Type blood sugar diagnostic (BuytechTouch #50 ea 06/02/21 04/26/25 Rx Verio test strips) apixaban 5 mg tablet (Eliquis) 5 mg PO BID 04/30/24 04/26/25 History budesonide 160 mcg-glycopyr 9 2 inh inhalation BID 05/23/24 04/26/25 History mcg-formot 4.8 mcg/actuation HFA inhaler (Breztri Aerosphere) guaifenesin 600 mg tablet, 1,200 mg (2 x 600 mg) PO Q12 12/24/24 04/26/25 Rx extended release 12 hr (Mucinex) Congestion #60 tabs insulin glargine 100 unit/mL (3 15 unit (0.15 mL) subcut QAM #3 mL 12/24/24 04/26/25 Rx mL) subcutaneous pen insulin lispro 100 unit/mL 5 unit (0.05 mL) subcut TID #15 mL 12/24/24 04/26/25 Rx subcutaneous pen (Humalog KwikPen (U-100) Insulin) oxycodone 10 mg tablet,crush 10 mg PO BID #6 tabs 12/24/24 04/26/25 Rx resistant,extended release 12 hr (OxyContin) oxycodone 5 mg tablet 10 mg (2 x 5 mg) PO Q6H PRN 12/24/24 04/26/25 Rx breakthrough pain, moderate #12 tabs polyethylene glycol 3350 17 gram 17 g PO DAILY #30 ea 12/24/24 04/26/25 Rx oral powder packet (Miralax) sennosides 8.6 mg-docusate sodium 1 tab PO QAM #30 tabs 12/24/24 04/26/25 Rx 50 mg tablet (Senokot-S) albuterol sulfate 90 mcg/actuation 2 puff inhalation Q6 PRN Shortness 12/27/24 04/26/25 Rx aerosol inhaler (Ventolin HFA) Of Breath Or Wheezing #8.5 grams aspirin 81 mg tablet,delayed 81 mg PO QAM #30 tabs 12/27/24 04/26/25 Rx release (Uri Low Dose Aspirin) cyanocobalamin (vitamin B-12) 500 1,000 mcg (2 x 500 mcg) PO QAM #60 12/27/24 04/26/25 Rx mcg tablet tabs fluticasone furoate 100 1 inh inhalation DAILY #60 ea 12/27/24 04/26/25 Rx mcg-vilanterol 25 mcg/dose inhalation powder (Breo Ellipta) folic acid 1 mg tablet 1 mg PO QAM #30 tabs 12/27/24 04/26/25 Rx ipratropium 0.5 mg-albuterol 3 mg 3 ml inhalation Q4H PRN shortness 12/27/24 04/26/25 Rx (2.5 mg base)/3 mL nebulization of breath #90 mL soln metformin 1,000 mg tablet 1,000 mg PO BID #60 tabs 12/27/24 04/26/25 Rx rosuvastatin 20 mg tablet 20 mg PO QAM #30 tabs 12/27/24 04/26/25 Rx umeclidinium 62.5 mcg/actuation 1 inh inhalation DAILY #30 ea 12/27/24 04/26/25 Rx blister powder for inhalation (Incruse Ellipta) furosemide 20 mg tablet 20 mg PO DAILY Edema 04/26/25 04/26/25 History metoprolol tartrate 50 mg tablet 50 mg PO BID 04/26/25 04/26/25 History pantoprazole 40 mg tablet,delayed 40 mg PO QAM 04/26/25 04/26/25 History release Past Med/Surg History Problem List (Updated 04/27/25 @ 03:12 by Michelle Yates DO) Diarrhea TATY (acute kidney injury) (Acute) CHF (congestive heart failure) (Acute) Change in mental state (Acute) Acute and chronic respiratory failure with hypoxia (Acute) Sepsis (Acute) Chronic pain Type 2 diabetes mellitus Cognitive changes Left lower lobe consolidation Elevated LFTs Weakness (Acute) Hypokalemia (Acute) Symptomatic anemia (Acute) Acute GI bleeding (Acute) Tobacco abuse Acute on chronic respiratory failure with hypoxia Left lower lobe pneumonia CHF (congestive heart failure) (Acute) Acute UTI (urinary tract infection) (Acute) Pleural effusion (Acute) Shortness of breath (Acute) Abdominal pain (Acute) Acute hypoxemic respiratory failure (Acute) Hypomagnesemia (Acute) COPD with acute exacerbation (Acute) Pleural effusion (Acute) CHF (congestive heart failure) (Acute) Ambulatory dysfunction Pneumonia (Acute) Acute respiratory distress (Acute) Altered mental status (Acute) Tachycardia (Acute) Hypomagnesemia (Acute) Metabolic encephalopathy Hyperglycemia Acute exacerbation of chronic obstructive pulmonary disease (Acute) Hypoxia (Acute) Afib COPD, very severe Weakness generalized Atrial fibrillation with rapid ventricular response (Acute) Dilated pancreatic duct Positive blood culture Abdominal pain Abdominal pain Lower extremity edema Respiratory distress (Acute) Hypertension (Acute) COPD exacerbation (Acute) Respiratory acidosis (Acute) Elevated lactic acid level (Acute) Tachycardia (Acute) Hypomagnesemia (Acute) Acute bronchitis with chronic obstructive pulmonary disease (COPD) SOB (shortness of breath) (Acute) Anemia (Acute) Chest tightness (Acute) UTI (urinary tract infection) Chronic pain syndrome SOB (shortness of breath) (Acute) COPD exacerbation (Acute) Dizziness (Acute) Acute UTI (Acute) Hypomagnesemia (Acute) Anemia B12 deficiency COPD exacerbation (Acute) Hyperlipidemia Dysphagia Chronic kidney disease HTN (hypertension) Thrombocythemia Chronic low back pain (Chronic) Diaphragmatic hernia (Chronic 10/31/11) Overweight (BMI 25.0-29.9) (Chronic) AAA (abdominal aortic aneurysm) Left peroneal nerve palsy (Chronic) History of knee replacement (Acute) Knee pain, left (Acute) Right knee pain (Acute) Diabetes type 2, uncontrolled (Acute) COPD (chronic obstructive pulmonary disease) (Acute) Medical History Hospital-acquired pneumonia Aspiration pneumonia Current smoker Anemia Sepsis Acute confusion Severe muscle deconditioning COPD exacerbation Respiratory failure Hyperkalemia Acute hypercapnic respiratory failure TATY (acute kidney injury) AMS (altered mental status) Syncope Acute UTI Acute hypotension Chronic kidney disease, stage 3a Acute kidney injury Acute exacerbation of chronic low back pain Candidiasis of mouth and esophagus DVT prophylaxis Diabetes mellitus COPD (chronic obstructive pulmonary disease) Hypertension Hyperlipidemia Acute on chronic respiratory failure with hypoxia and hypercapnia Family History Other Family history non-contributory Social History Smoking Status: Current every day smoker Tobacco Type: Cigarettes Age Started Using Tobacco: 32; Cigarettes Per Day: 10; Second Hand Exposure: Yes; Do You Dip or Chew Tobacco: No; Hx Alcohol Use: No Hx Substance Use: No Preferred Language: Amharic Communication Ability: Effective Toddler Nanny Required: No Beliefs That Will Affect Care: None marital status: Current Living Situation: Spouse Current Living Situation Comment: With Juan How many Children do You have: 3 Feels Safe at Home: Yes Assistive Devices: Cane, Walker and Wheelchair Review of Systems Review of Systems: All systems reviewed & are unremarkable except as noted in HPI & below Physical Exam Physical Exam: General: patient resting comfortably, NAD, non-toxic in appearance Skin: warm, dry, intact, no rashes or lesions HEENT: NC/AT, PERRL, EOMI, anicteric sclera, conjunctiva without injection, external ear normal to inspection and nontender, nares patent, moist mucus membranes, dentition intact, no oropharyngeal lesions, neck supple, trachea midline, no LAD, no thyromegaly, no JVD Heart: +S1/S2, regular, no m/r/g Lungs: equal air entry bilaterally, no rales/rhonchi/wheezes Abd: +BS, soft, ND, diffusely tender to palpation, no rebound/guarding, no masses/organomegaly/ascites Ext: warm, 2+ pulses in UE/LE bilaterally, no clubbing/cyanosis or edema Neuro: nonfocal, patient AA&O x 4, speech intact, no facial droop, moving all extremities on command with equal strength 5/5 Results & Data Results & Data Vital Signs (Past 12 Hours) Vital Signs Temp Pulse Resp BP Pulse Ox O2 Del Method O2 Flow Rate 04/27/25 01:00 84 22 112/52 L 95 Nasal Cannula 2 04/27/25 00:45 94 H 20 105/48 L 96 Nasal Cannula 2 04/27/25 00:15 87 20 100 Nasal Cannula 2 04/26/25 23:24 74 20 109/54 L 100 Nasal Cannula 2 04/26/25 23:08 28 H 98 Nasal Cannula 2 04/26/25 22:30 75 28 H 121/61 100 Nasal Cannula 2 04/26/25 22:30 75 04/26/25 22:24 36.7 C 75 24 121/61 98 Nasal Cannula 4 Laboratory Results Laboratory Results WBC 8.96 K/ul (4.8-10.8) 04/26/25 22:30 RBC 3.57 M/uL (4.20-5.40) L 04/26/25 22:30 Hgb 9.9 g/dl (12.0-16.0) L 04/26/25 22:30 Hct 33.0 % (37.0-47.0) L 04/26/25 22:30 MCV 92.4 fL (80.0-100.0) 04/26/25 22:30 MCH 27.7 pg (25.0-34.0) 04/26/25 22: MCHC 30.0 g/dL (32.0-36.0) L 04/26/25: RDW Std Deviation 67.2 fL (36.4-46.3) H 04/26/25: RDW Coeff of Dorcas 19.8 % (11.5-14.5) H 04/26/25: Plt Count 472 K/uL (130-400) H 04/26/25 22: MPV 10.3 fL (9.4-12.4) 04/26/25 22: Immature Gran % (Auto) 0.9 % 04/26/25 22: Neut % (Auto) 80.0 % 04/26/25 22:30 Lymph % (Auto) 11.7 % 04/26/25 22: [place] % (Auto) 6.4 % 04/26/25 22: Eos % (Auto) 0.6 % 04/26/25 22: Baso % (Auto) 0.4 % 04/26/25:30 Neut # (Auto) 7.17 K/uL (1.40-6.50) H 04/26/25 22:30 Lymph # (Auto) 1.05 K/uL (1.20-3.40) L 04/26/25 22:30 [place] # (Auto) 0.57 K/uL (0.11-0.59) 04/26/25 22:30 Eos # (Auto) 0.05 K/uL (0.00-0.50) 04/26/25 22: Baso # (Auto) 0.04 K/uL (0.00-0.20) 04/26/25 22: Immature Gran # (Auto) 0.08 K/uL (0.01-0.20) 04/26/25: VBG pH 7.22 (7.36-7.41) L 04/26/25 23:01 VBG pCO2 64 mmHg (38-50) H 04/26/25 23:01 VBG pO2 25 mmHg 04/26/25 23:01 VBG HCO3 26 mmol/L 04/26/25 23:01 VBG O2 Saturation < 60.0 % 04/26/25 23:01 VBG Base Excess -2.8 mEq/L 04/26/25 23:01 Sodium 138 mmol/L (136-145) 04/26/25 22:30 Potassium 5.6 mmol/L (3.5-5.1) H 04/27/25 00:47 Chloride 105 mmol/L (98-107) 04/26/25 22:30 Carbon Dioxide 26 mmol/L (21-32) 04/26/25 22:30 Anion Gap 7 (3-11) 04/26/25 22:30 BUN 51 mg/dl (6-23) H 04/26/25 22:30 Creatinine 1.94 mg/dl (0.6-1.2) H 04/26/25 22:30 Est Cr Clr Drug Dosing 21.6 ml/min 04/26/25 22:30 eGFR 26.86 04/26/25 22:30 BUN/Creatinine Ratio 26.3 (10-20) H 04/26/25 22:30 Glucose 147 mg/dl (70-99(Fasting)) H 04/26/25 22:30 Lactate 1.6 mmol/L (0.4-2.0) 04/27/25 00:52 Calcium 9.2 mg/dl (8.6-10.3) 04/26/25 22:30 Magnesium 1.9 mg/dl (1.7-2.4) 04/26/25 22:30 Total Bilirubin 0.3 mg/dl (0.2-1.0) 04/26/25 22:30 Direct Bilirubin 0.1 mg/dl (0-0.2) 04/27/25 00:47 AST 26 U/L (13-39) 04/26/25 22:30 ALT 43 U/L (7-52) 04/26/25 22:30 Alkaline Phosphatase 153 U/L (34-104) H 04/26/25 22:30 Ammonia 22.0 umol/L (18-72) 04/26/25 23:01 Troponin I High Sens 14.1 pg/ml (0-14) H 04/26/25 22:30 B-Natriuretic Peptide 217 pg/ml (0-100) H 04/26/25 22:30 Total Protein 7.0 gm/dl (6.0-8.3) 04/26/25 22:30 Albumin 3.6 gm/dl (3.4-5.0) 04/26/25 22:30 Procalcitonin 8.64 ng/ml (0-0.5) H 04/26/25 22:30 Urine Color Yellow 04/26/25 23:20 Urine Appearance Cloudy (Clear) A 04/26/25 23:20 Urine pH 5.0 (4.5-7.5) 04/26/25 23:20 Ur Specific [place] 1.019 (1.000-1.030) 04/26/25 23:20 Urine Protein 3+ (Negative) H 04/26/25 23:20 Urine Glucose (UA) Negative (Negative) 04/26/25 23:20 Urine Ketones Trace (Negative) H 04/26/25 23:20 Urine Blood Negative (Negative) 04/26/25 23:20 Urine Nitrite Negative (Negative) 04/26/25 23:20 Urine Bilirubin Negative (Negative) 04/26/25 23:20 Urine Urobilinogen Negative (Negative) 04/26/25 23:20 Ur Leukocyte Esterase 1+ (Negative) H 04/26/25 23:20 Urine WBC (Auto) 11-20 /hpf (0-5) H 04/26/25 23:20 Urine RBC (Auto) 3-5 /hpf (0-2) H 04/26/25 23:20 U Hyaline Cast (Auto) >20 /lpf (0-2) H 04/26/25 23:20 U Epithel Cells (Auto) 11-20 /hpf (0-2) H 04/26/25 23:20 Urine Bacteria (Auto) None Seen (None Seen) 04/26/25 23:20 Granular Casts Present /lpf (None Prsent) A 04/26/25 23:20 Urine Comment 04/26/25 23:20 Urine Opiates Screen Pos (Neg) H 04/26/25 23:20 Ur Methadone, Qual Neg (Neg) 04/26/25 23:20 Urine Fentanyl Screen Neg (Neg) 04/26/25 23:20 Urine Barbiturates Neg (Neg) 04/26/25 23:20 Ur Phencyclidine (PCP) Neg (Neg) 04/26/25 23:20 U Amphetamin/Meth Scrn Neg (Neg) 04/26/25 23:20 MDMA (Ecstasy) Screen Neg (Neg) 04/26/25 23:20 U Benzodiazepines Scrn Neg (Neg) 04/26/25 23:20 Ur Cocaine Metabolite Neg (Neg) 04/26/25 23:20 U Marijuana (THC) Screen Neg (Neg) 04/26/25 23:20 Ethyl Alcohol mg/dL < 10.0 mg/dl (<10.0) 04/26/25 23:01 Impressions Chest X-Ray 04/26/25 22:37 EXAM: XR chest 1V portable CLINICAL HISTORY: Sepsis TECHNIQUE: An X-ray image of the chest is obtained in AP projection. 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 Prominent bronchovascular markings bilaterally mainly in the upper lung monsivais suggestive of chronic bronchitis. 2 small nodules measuring 4 and 4.5 mm in right basal lung. No evidence of consolidation, collapse, or focal opacities. No evidence of pleural effusion or pleural thickening. Heart and Mediastinum: Heart size and shape are normal. No mediastinal widening or masses. No hilar or mediastinal lymphadenopathy. Bony Thorax: Bony thorax appears intact without fractures or deformities. Soft Tissues: Soft tissues overlying the chest wall are unremarkable. IMPRESSION: Redemonstration of COPD. Interval resolution of atelectatic band in the right middle zone. No definite consolidation, cavitation and pleural effusion Electronically signed by Dionicio Cruz 04-27-2025 12:54 AM Code Status & VTE Plan VTE Prophylaxis Plan VTE Prophylaxis will be ordered: Yes PG Care Time/CCT Total # of Minutes Spent Total Time Spent with Patient: Total time spent is greater than 50% in coordination of care (as documented) at patient's floor/unit and/or counseling patient: Coding Level of Care Code 72864 INT INP/OBS CARE 3/75MIN Diagnoses Diarrhea R19.7 Type 2 diabetes mellitus E11.9 Hypertension I10 Hypertension type: unspecified Acute bronchitis with chronic obstructive pulmonary disease (COPD) J44.0; J20.9 (3) Hypertension Hypertension type: unspecified Qualified Code(s): I10 - Essential (primary) hypertension
[2025-04-27 01:19] LABS: Bilirubin Direct 0.1 mg/dl (0-0.2); Potassium 5.6 mmol/L (3.5-5.1)
--- NOTE | 2025-04-27 02:03 | Emergency Department Note ---
ED Visit Note I was consulted by the Advanced Practice Provider. I personally made/approved the management plan and take responsibility for the patient management. I performed a substantive portion of the visit. This includes the aspects of Imaging review, laboratory evaluation. Patient's laboratory work reveals both an elevated lactate and procalcitonin. Blood cultures have been sent and the patient was hydrated with normal saline solution, IV antibiotics were ordered. Patient will be referred to the hospitalist service for inpatient admission. Pl ease refer to Pablo Martinez PA-C's notes for further details of the history, physical and visit. .
[2025-04-27] MEDS ORDERED: ALBUTEROL HFA 8 GM INHALER INH PRN (04:24)
[2025-04-27] MEDS ORDERED: DEXTROSE 50% 50 ML SYRINGE IV PRN (04:24)
[2025-04-27] MEDS ORDERED: ACETAMINOPHEN 325 MG TAB PO PRN (04:24)
[2025-04-27] MEDS ORDERED: CARBOHYDRATES FOR HYPOGLYCEMIA PO PRN (04:24)
[2025-04-27] MEDS ORDERED: GLUCOSE 40% GEL 15 GM TUBE PO PRN (04:24)
[2025-04-27] MEDS ORDERED: GLUCOSE 10 TAB/TUBE PO PRN (04:24)
[2025-04-27] MEDS ORDERED: GLUCAGON FOR INJ 1 MG VIAL SQ PRN (04:24)
[2025-04-27] MEDS ORDERED: ALBUT/IPRATROP 3MG/0.5MG NEB 3 ML VIAL INH PRN (04:24)
[2025-04-27] MEDS: LACTATED RINGER'S 1,000 ML IV SCH (04:50)
[2025-04-27] MEDS: oxyCODONE HCL IR 5 MG TAB (IMMEDIATE RELEASE) PO PRN ×2 (07:37→19:44)
[2025-04-27] MEDS: ONDANSETRON INJ 2 MG/ML 2 ML VIAL IV PRN (07:39)
[2025-04-27] MEDS: APIXABAN 5 MG TABLET PO SCH (08:12)
[2025-04-27] MEDS: guaiFENesin 600 MG TABCR PO SCH (08:12)
[2025-04-27] MEDS: ROSUVASTATIN CALCIUM 20 MG TAB PO SCH (08:12)
[2025-04-27] MEDS: ASPIRIN 81 MG ECTAB PO SCH (08:12)
[2025-04-27] MEDS: PANTOprazole 40 MG TAB PO SCH (08:12)
[2025-04-27] MEDS: UMECLIDINIUM/VILANTEROL 62.5/25MCG 7 PUFFS/INHALER INH SCH (08:13)
[2025-04-27] MEDS: FLUTICASONE FUROATE 200MCG 14 PUFFS/INHALER INH SCH (08:13)
[2025-04-27] MEDS: LANTUS PER UNIT CHARGE SQ SCH (08:15)
[2025-04-27] MEDS: INSULIN ASPART PER UNIT CHARGE SC SCH (08:30)
[2025-04-27] MEDS ORDERED: NON-FORMULARY MEDICATION (Budesonide-Glycopyr-Formoterol [Breztri Aerosphere] 160-9-4.8 mc INH SCH (09:00)
[2025-04-27] MEDS ORDERED: UMECLIDINIUM BROMIDE 62.5MCG/BLISTER 7 PUFFS/INHALER INH SCH (09:00)
[2025-04-27] MEDS ORDERED: FLUTICASONE/VILANTEROL 100/25MCG 14 PUFFS/INHALER INH SCH (09:00)
[2025-04-27] MEDS: oxyCODONE HCL 10 MG TABCR (OxyCONTIN) PO SCH (10:32)
[2025-04-27 11:03] LABS: Base Excess VBG -2.6 mEq/L; HCO3 VBG 26 mmol/L; Oxygen Saturation VBG 80.3 %; PCO2 VBG 64 mmHg (38-50); PO2 VBG 49 mmHg; pH VBG 7.21 (7.36-7.41)
[2025-04-27 11:12] LABS: Basophils # (auto) 0.05 K/uL (0.00-0.20); Basophils % (auto) 0.8 %; Eosinophils # (auto) 0.08 K/uL (0.00-0.50); Eosinophils % (auto) 1.2 %; Hematocrit (blood only) 25.7 % (37.0-47.0); Hemoglobin 7.7 g/dl (12.0-16.0); Immature Granulocytes # (auto) 0.06 K/uL (0.01-0.20); Immature Granulocytes % (auto) 0.9 %; Lymphocytes # (auto) 0.85 K/uL (1.20-3.40); Lymphocytes % (auto) 12.9 %; Mean Corpuscular Hemoglobin 28.2 pg (25.0-34.0); Mean Corpuscular Volume 94.1 fL (80.0-100.0); Mean Platelet Volume 10.3 fL (9.4-12.4); Monocytes # (auto) 0.48 K/uL (0.11-0.59); Monocytes % (auto) 7.3 %; Neutrophils # (auto) 5.09 K/uL (1.40-6.50); Neutrophils % (auto) 76.9 %; Platelet Count 343 K/uL (130-400); RDW Coefficient of Variation 19.7 % (11.5-14.5); RDW Standard Deviation 66.8 fL (36.4-46.3); Red Blood Count 2.73 M/uL (4.20-5.40); White Blood Count 6.61 K/ul (4.8-10.8)
[2025-04-27 11:38] LABS: Acanthocytes 1+; Polychromasia 1+
[2025-04-27 11:39] LABS: Albumin Globulin Ratio 1.2 (0.9-2); BUN Creatinine Ratio 24.5 (10-20); Bilirubin,Total 0.3 mg/dl (0.2-1.0); Calcium 8.2 mg/dl (8.6-10.3); Creatinine Clr Calc Pharmacy 21.3 ml/min; Globulin 2.6 gm/dl (2.5-4.0); Magnesium 1.7 mg/dl (1.7-2.4); Potassium 5.8 mmol/L (3.5-5.1); Total Protein 5.6 gm/dl (6.0-8.3); Troponin I High Sensitivity 9.3 pg/ml (0-14)
--- NOTE | 2025-04-27 11:59 | CT Scan Report ---
CT OF THE ABDOMEN AND PELVIS WITHOUT CONTRAST CLINICAL HISTORY: Abdominal pain. COMPARISON STUDY: CT of the abdomen and pelvis December 26, 2024. TECHNIQUE: Axial images of the abdomen and pelvis were obtained without contrast. Sagittal and osborne l reformats were viewed. A dose lowering technique was utilized adhering to the principles of ALARA. FINDINGS: Emphysema is incidentally noted within the visualized lower lungs. Small right and trace le ft pleural effusions have decreased in size since CT of December 26, 2024. No renal, ureteral or bladd er calculi are present. There is no hydronephrosis or hydroureter. A Gutierrez balloon within the bladder is noted. Evaluation of the remainder of the abdomen and pelvis is suboptimal on this unenhanced exa mination. There is no biliary ductal dilatation status post cholecystectomy. Small bilateral adrenal nodules remain unchanged. There are calcified granulomas within the spleen. Dilatation of the main pa ncreatic duct is better depicted on prior contrast enhanced CT. This appears unchanged. Infrarenal ab dominal aortic aneurysm is unchanged, measuring 4.5 cm. There is no evidence for rupture. There is ex tensive aortoiliac atherosclerotic plaque. There is no evidence for a bowel obstruction. No bowel wal l thickening is identified on unenhanced exam. A small amount of hyperdense material within the dista l ileum and right colon is present. There is colonic diverticulosis without evidence for acute divert iculitis. No acute fractures within the lumbar spine, pelvis or hips are identified. A sclerotic lesi on within the right femoral neck remains unchanged. This favors a bone island. IMPRESSION: 1. No urinary calculi or hydronephrosis. 2. No acute process within the abdomen or pelvis on unenhanced exam. 3. No change in a 4.5 cm infrarenal abdominal aortic aneurysm. No evidence for rupture. 4. Small right and trace left pleural effusions. ACT 112: Negative or not required by law. Electronically signed by: Cheng Arevalo M.D. 04/27/2025 11:57 AM
--- NOTE | 2025-04-27 14:52 | History & Physical Bridge Note ---
Date of Service April 27, 2025 History & Physical Bridge Note I have examined the patient, reviewed the History & Physical and in the interval since the performance of the History & Physical I have noted the following changes of clinical significance: Patient had repeat VBG this morning which still showed acidosis with elevated CO2. She was placed on BiPAP and was lethargic. She then improved and was awake and alert after 2 hours on BiPAP. She was complaining of her usual chronic abdominal pain. She reported at home she thinks she had a fever but she is not sure what her temperature was. She was reporting diarrhea at home but has not had any bowel movements since admission. She is requesting pain medication. Vitals reviewed Gen: Chronically ill-appearing, NAD, awake alert and oriented x 2 HEENT: Anicteric sclerae, EOMI CV: RRR no mgr nl S1S2 Pulm: Diffuse mild expiratory wheezes, diminished breath sounds throughout Abd: +BS soft mild diffuse tenderness to palpation without guarding, ND no masses or hernias Ext: No edema Skin: No rashes, warm/dry Neuro: Moves all extremities CBC, BMP, LFTs, VBG, troponin, UA reviewed CT abdomen/pelvis reviewed 75-year-old female here with abdominal pain, nausea/vomiting/diarrhea, acute kidney injury, hyperkalemia, and acute on chronic respiratory failure with hypercarbia and hypoxemia - Continue BiPAP at bedtime-need to clarify if patient still has trilogy at home - Give another 500 mL of normal saline for TATY, advance diet - Give insulin 10 units regular IV +50 mL of dextrose along with 1 g of IV calcium gluconate for hyperkalemia, continue low sodium and low potassium diet - She has chronic abdominal pain-CT abdomen/pelvis with stable AAA at 4.5 cm but nothing new-she has known mesenteric artery stenosis and has declined further evaluation for this in the past. She takes chronic oxycodone-of note, she is no longer on long-acting OxyContin at home-medication reconciliation was corrected. She does take oxycodone 5 Mg p.o. 3 times daily at home-ordered this for her and a one-time dose of IV morphine at her request - Follow BMP at 1900 tonight to see if hyperkalemia is improved Follow blood cultures, check C. difficile and stool culture when available - Make DuoNebs scheduled for wheezing on exam and for hyperkalemia - For chronic anemia, check iron studies, B12, folate, and TSH in the morning - Plan to discontinue Gutierrez tomorrow once renal function improves
[2025-04-27] MEDS: ALBUT/IPRATROP 3MG/0.5MG NEB 3 ML VIAL INH SCH (15:02)
[2025-04-27] MEDS: SODIUM CHLORIDE 0.9% 500 ML IV SCH (15:09)
[2025-04-27] MEDS: INSULIN HUMAN REGULAR PER UNIT 10 UNITS in SYRINGE 9.9 ML IV STA (15:13)
[2025-04-27] MEDS: DEXTROSE 50% 50 ML SYRINGE IV ONE (15:14)
[2025-04-27] MEDS: CALCIUM GLUCONATE 1,000 MG/60 ML BAG IV STA (15:31)
[2025-04-27] MEDS: MoRPHine SULFATE 2 MG/ML CARP IV STA (16:45)
[2025-04-27 19:54] LABS: BUN Creatinine Ratio 22.3 (10-20); Calcium 8.2 mg/dl (8.6-10.3); Creatinine Clr Calc Pharmacy 20.7 ml/min; Potassium 5.2 mmol/L (3.5-5.1)
[2025-04-27] MEDS: APIXABAN 2.5 MG TAB PO SCH (20:37)
[2025-04-27] MEDS: diphenhydrAMINE 50 MG/ML VIAL IV STA (20:40)
[2025-04-27] MEDS: SODIUM CHLORIDE 0.9% 1,000 ML IV SCH (22:50)
[2025-04-28 01:00] LABS: BUN Creatinine Ratio 19.5 (10-20); Calcium 7.8 mg/dl (8.6-10.3); Creatinine Clr Calc Pharmacy 20.4 ml/min; Potassium 5.3 mmol/L (3.5-5.1)
[2025-04-28 07:16] LABS: Basophils # (auto) 0.04 K/uL (0.00-0.20); Basophils % (auto) 0.8 %; Eosinophils # (auto) 0.22 K/uL (0.00-0.50); Eosinophils % (auto) 4.2 %; Hematocrit (blood only) 25.1 % (37.0-47.0); Hemoglobin 7.4 g/dl (12.0-16.0); Immature Granulocytes # (auto) 0.03 K/uL (0.01-0.20); Immature Granulocytes % (auto) 0.6 %; Lymphocytes # (auto) 1.06 K/uL (1.20-3.40); Mean Corpuscular Hemoglobin 27.9 pg (25.0-34.0); Mean Corpuscular Hgb Conc 29.5 g/dL (32.0-36.0); Mean Corpuscular Volume 94.7 fL (80.0-100.0); Mean Platelet Volume 10.3 fL (9.4-12.4); Monocytes # (auto) 0.47 K/uL (0.11-0.59); Monocytes % (auto) 8.9 %; Neutrophils # (auto) 3.47 K/uL (1.40-6.50); Neutrophils % (auto) 65.5 %; Platelet Count 306 K/uL (130-400); RDW Coefficient of Variation 19.6 % (11.5-14.5); RDW Standard Deviation 67.2 fL (36.4-46.3); Red Blood Count 2.65 M/uL (4.20-5.40); White Blood Count 5.29 K/ul (4.8-10.8)
[2025-04-28 07:35] LABS: BUN Creatinine Ratio 20.5 (10-20); Creatinine Clr Calc Pharmacy 23.8 ml/min; Magnesium 1.6 mg/dl (1.7-2.4); Potassium 5.3 mmol/L (3.5-5.1)
[2025-04-28 07:37] LABS: RBC Morphology Unremarkable
[2025-04-28 07:46] LABS: Thyroid Stimulating Hormone 4.962 uIu/ml (0.300-4.500)
[2025-04-28 08:11] LABS: Folate (Folic Acid),Ser orPlas 14.93 ng/ml (>5.38)
[2025-04-28 08:21] LABS: T4 Free Thyroxine 0.76 ng/dl (0.61-1.60)
[2025-04-28] MEDS: SODIUM CHLORIDE 0.9% 1,000 ML IV SCH (09:32)
[2025-04-28] MEDS: MAGNESIUM SULFATE / D5W 1 GM/100 ML BAG IV SCH (09:59)
[2025-04-28] MEDS: SODIUM ZIRCONIUM CYCLOSILICATE 10 GM PACKET PO SCH (10:04)
--- NOTE | 2025-04-28 11:04 | Hospitalist Progress Note ---
Date of Service April 28, 2025 Assessment & Plan (1) Diarrhea: (2) Abdominal pain: (3) Acute on chronic respiratory failure with hypoxia: Plan This patient is a 75-year-old female with a history of PAF on Eliquis, HFpEF, current smoker, HTN, mesenteric artery stenosis, chronic respiratory failure with hypercarbia and hypoxemia, DM2, COPD, chronic abdominal pain on opioids, GERD, HLD here with abdominal pain and diarrhea, acute kidney injury, hyperkalemia, and acute on chronic respiratory failure with hypercarbia and hypoxemia #Acute on chronic abdominal pain/mesenteric artery stenosis/diarrhea-I have taken care of her in the past and her abdominal pain is similar to previous and there are no significant findings on CT abdomen/pelvis that are new. She has a AAA that is 4.5 cm and no evidence of rupture. She has declined evaluation by vascular surgery in the past for her mesenteric artery stenosis. She takes chronic oxycodone at home- she is no longer on long-acting OxyContin at home- medication reconciliation was corrected. There has been no bowel movement at all since admission thus far so stool studies have not been sent - Continue oxycodone as needed for pain - Monitor for diarrhea -Follow blood cultures, check C. difficile and stool culture when available #Acute on chronic respiratory failure with hypercarbia and hypoxemia/COPD- patient does not use her home trilogy machine and has known chronic CO2 ret ention. VBG here on admission and repeated again this morning show acute on chronic respiratory acidosis - Continue BiPAP at bedtime Albuterol as needed DuoNeb scheduled Continue Breo Ellipta or formulary equivalent Continue guaifenesin #TATY on CKD/hyperkalemia/hypomagnesemiacreatinine = 1.94 which is increased from baseline 1.29. Potassium is mildly elevated at 5.6. With peaked T waves on admitting EKG. She has been treated with insulin and D50 as well as IV calcium. Potassium today is improved to 5.3 and creatinine is improved to 1.7. UA on admission contaminated with epithelial cells but urine cultures pending-no need for antibiotics -Give another 1 L of normal saline - Low potassium diet, start Lokelma once daily Avoid nephrotoxic agents-holding home Lasix, metformin Renal dosing were needed -Follow BMP in the morning - Plan to discontinue Gutierrez once renal function improves - Replace magnesium with IV magnesium sulfate #Chronic anemia-with iron studies showing transferrin saturation only 14%. Likely anemia of chronic disease and iron deficiency. Ferritin 168. B12, folate, TSH all normal -Give Venofer 200 mg IV once daily x 5 doses if here - Follow CBC - Restart home folic acid #Paroxysmal atrial fibrillation/HTN/HFpEF-she remains in sinus rhythm here and is hypovolemic with TATY. Last echo 10/2023 with preserved EF, no obvious valvular disease, with mild pulmonary HTN. Blood pressures here were mildly low on admission but now increasing. During last/previous admission, her lisinopril and diltiazem were both discontinued for low blood pressures Continue apixaban but dose reduced for decreased renal function and body weight to 2.5 Mg p.o. twice daily - Resume home metoprolol tartrate-unclear why held on admission-last admission she was on 25 mg twice daily due to low blood pressures but home med rec here says 50 mg twice a day-will start at 25 tomorrow - Continue aspirin # DM2-last A1c 7.5% in 11/2024. Blood sugars here are controlled to somewhat elevated but that is after receiving D50 and insulin for hyperkalemia. On metfo rmin only at home Continue Lantus 5 units twice daily Insulin sliding scale - Check A1c in the morning #GERD-no acute issues Continue Protonix 40 mg p.o. every morning #Hyperlipidemia-no acute issues Continue Crestor 20 mg p.o. every morning DVT prophylaxis-Eliquis Disposition-continued stay on medical floor with telemetry Admission and Anticipated Discharge Date Admission Date: April 27, 2025 Subjective Patient reports feeling fine. Still has her occasional chronic abdominal pain. She reports she wore the BiPAP through the night. She did get lightheaded with standing today with physical therapy. Telemetry with normal sinus rhythm with rates in the 90s to 100s Physical Exam Constitutional: well developed; no acute distress Respiratory: normal respiratory effort, lungs clear to auscultation Cardiovascular: RRR, no murmur, no edema Gastrointestinal (Abdomen): normal bowel sounds, soft, nontender, no hepatosplenomegaly Psychiatric: Orientation: alert, oriented to person, oriented to place and cooperative Results & Data Results & Data Vital Signs (Past 12 Hours) Vital Signs Temp Pulse Pulse Resp BP Pulse Ox O2 Del Method 04/28/25 10:53 100 H 18 92 Nasal Cannula 04/28/25 09:44 Nasal Cannula 04/28/25 07:45 36.5 C 96 H 20 133/61 93 BiPAP 04/28/25 07:20 93 H 25 H 93 04/28/25 07:20 93 H 24 93 BiPAP 04/28/25 05:39 92 H 04/28/25 02:56 36.9 C 104 H 18 117/69 93 CPAP 04/28/25 02:23 90 20 90 04/27/25 23:41 36.6 C 90 18 122/70 94 CPAP 04/27/25 23:23 87 O2 Flow Rate FiO2 04/28/25 10:53 3 04/28/25 09:44 4 04/28/25 07:45 04/28/25 07:20 40 04/28/25 07:20 40 04/28/25 05:39 04/28/25 02:56 4 04/28/25 02:23 40 04/27/25 23:41 4 04/27/25 23:23 Laboratory Results CBC, BMP, B12, folate, iron studies, magnesium, TSH reviewed PG Care Time/CCT Total # of Minutes Spent Total Time Spent with Patient: Total time spent is greater than 50% in coordination of care (as documented) at patient's floor/unit and/or counseling patient: Coding Level of Care Code 92666 SUB INP/OBS CARE 3/50MIN Diagnoses Diarrhea R19.7 Abdominal pain R10.9 Acute on chronic respiratory failure with hypoxia J96.21
[2025-04-28] MEDS: IRON SUCROSE 200 MG in SODIUM CHLORIDE 0.9% 100 ML IV SCH (13:50)
--- NOTE | 2025-04-29 01:29 | XRay Report ---
EXAM: XR KUB/Abdomen 1 view CLINICAL HISTORY: Abdominal pain. TECHNIQUE: X-ray images of the abdomen were obtained in supine and upright positions. COMPARISON: 12/25/2024R, Reviewed CT abdomen and pelvis dated: 12/26/2024. FINDINGS: Gas Pattern: Prominent bowel loops with fecal loading shadows. No significant dilatation to suggest intestinal obstruction. Soft Tissues: Soft tissues of the abdomen appear normal without evidence of masses or calcifications. Liver, spleen, and kidneys are of normal size and position. Additional findings: Cholecystectomy staple shadow. Degenerative changes at multiple visualized bones and joints. Focal sclerosis at the neck of the right femur. IMPRESSION: 1. Mildly Distended large bowel loops with fecal loading. 2. No significant dilatation to suggest intestinal obstruction. 3. No significant interval changes. Electronically signed by Dionicio Cruz 04-29-2025 01:28 AM
[2025-04-29] MEDS ORDERED: PHA DELIRIUM CONSULT PRN (04:10)
[2025-04-29 08:19] LABS: Basophils # (auto) 0.05 K/uL (0.00-0.20); Basophils % (auto) 0.8 %; Eosinophils # (auto) 0.31 K/uL (0.00-0.50); Eosinophils % (auto) 4.7 %; Hematocrit (blood only) 25.4 % (37.0-47.0); Hemoglobin 7.7 g/dl (12.0-16.0); Immature Granulocytes # (auto) 0.06 K/uL (0.01-0.20); Immature Granulocytes % (auto) 0.9 %; Lymphocytes # (auto) 0.94 K/uL (1.20-3.40); Lymphocytes % (auto) 14.3 %; Mean Corpuscular Hemoglobin 28.4 pg (25.0-34.0); Mean Corpuscular Hgb Conc 30.3 g/dL (32.0-36.0); Mean Corpuscular Volume 93.7 fL (80.0-100.0); Mean Platelet Volume 10.1 fL (9.4-12.4); Monocytes # (auto) 0.48 K/uL (0.11-0.59); Monocytes % (auto) 7.3 %; Neutrophils # (auto) 4.75 K/uL (1.40-6.50); Platelet Count 290 K/uL (130-400); RDW Coefficient of Variation 19.1 % (11.5-14.5); RDW Standard Deviation 65.1 fL (36.4-46.3); Red Blood Count 2.71 M/uL (4.20-5.40); White Blood Count 6.59 K/ul (4.8-10.8)
[2025-04-29] MEDS: POLYETHYLENE (MIRALAX) 17 GM PACK PO SCH (08:29)
[2025-04-29] MEDS: METOPROLOL TARTRATE 25 MG TAB PO SCH (08:29)
[2025-04-29] MEDS: CYANOCOBALAMIN (B-12) 500 MCG TABLET PO SCH (08:32)
[2025-04-29] MEDS: FOLIC ACID 1 MG TAB PO SCH (08:32)
[2025-04-29 08:35] LABS: BUN Creatinine Ratio 15.3 (10-20); Calcium 8.2 mg/dl (8.6-10.3); Creatinine Clr Calc Pharmacy 27.9 ml/min; Potassium 5.2 mmol/L (3.5-5.1)
[2025-04-29 08:59] LABS: Polychromasia 1+
[2025-04-29] MEDS: DOCUSATE SODIUM/SENNA 50/8.6MG TAB PO SCH (10:14)
[2025-04-29 10:19] LABS: Estimated Average Glucose 171 mg/dl; Hemoglobin A1C 7.6 % (4.5-5.6)
--- NOTE | 2025-04-29 12:49 | Hospitalist Progress Note ---
Date of Service April 29, 2025 Assessment & Plan (1) Diarrhea: (2) Abdominal pain: (3) Acute on chronic respiratory failure with hypoxia: Plan This patient is a 75-year-old female with a history of PAF on Eliquis, HFpEF, current smoker, HTN, mesenteric artery stenosis, chronic respiratory failure with hypercarbia and hypoxemia, DM2, COPD, chronic abdominal pain on opioids, GERD, HLD here with abdominal pain and diarrhea, acute kidney injury, hyperkalemia, and acute on chronic respiratory failure with hypercarbia and hypoxemia #Acute on chronic abdominal pain/mesenteric artery stenosis/diarrhea-I have taken care of her in the past and her abdominal pain is similar to previous and there are no significant findings on CT abdomen/pelvis that are new. She has a AAA that is 4.5 cm and no evidence of rupture. She has declined evaluation by vascular surgery in the past for her mesenteric artery stenosis. She takes chronic oxycodone at home- she is no longer on long-acting OxyContin at home- medication reconciliation was corrected. There has been no bowel movement at all since admission thus far so stool studies have not been sent. In fact, she has been constipated - Continue oxycodone as needed for pain -Add on bowel regimen for constipation with MiraLAX, Senokot/docusate -Follow blood cultures-no growth to date #Acute on chronic respiratory failure with hypercarbia and hypoxemia/COPD- patient does not use her home trilogy machine and has known chronic CO2 retention. VBG here on admission and repeated again this morning show acute on chronic respiratory acidosis. She did refuse to wear the BiPAP on the evening of 04/28 - Continue BiPAP at bedtime Albuterol as needed DuoNeb scheduled Continue Breo Ellipta or formulary equivalent Continue guaifenesin -Continue supplemental O2 to keep pulse ox greater than 89% #TATY on CKD/hyperkalemia/hypomagnesemiacreatinine = 1.94 which is increased from baseline 1.29. Potassium is mildly elevated at 5.6. With peaked T waves on admitting EKG. She has been treated with insulin and D50 as well as IV calcium. She was given further IV fluids for hydration. Potassium now continues to improve down to 5.2 and creatinine is improved to 1.5. UA on admission contaminated with epithelial cells but urine cultures pending-no need for antibiotics -Continue low potassium diet - Continue Lokelma once daily Avoid nephrotoxic agents-holding home Lasix, metformin Renal dosing as needed -Follow BMP in the morning -discontinue Gutierrez #Chronic anemia-with iron studies showing transferrin saturation only 14%. Likely anemia of chronic disease and iron deficiency. Ferritin 168. B12, folate, TSH all normal -Give Venofer 200 mg IV once daily x 5 doses if here - Follow CBC -Continue home folic acid #Paroxysmal atrial fibrillation/HTN/HFpEF-she remains in sinus rhythm here and is hypovolemic with TATY. Last echo 10/2023 with preserved EF, no obvious valvular disease, with mild pulmonary HTN. Blood pressures here were mildly low on admission but now increasing. During last/previous admission, her lisinopril and diltiazem were both discontinued for low blood pressures Continue apixaban but dose reduced for decreased renal function and body weight to 2.5 Mg p.o. twice daily -Continue lower dose of metoprolol tartrate 25 mg twice daily due to low normal blood pressures-increase if needed for hypertension - Continue aspirin # DM2-last A1c 7.5% in 11/2024 and now remains controlled at 7.6% blood sugars here are controlled to somewhat elevated but that is after receiving D50 and insulin for hyperkalemia. On metformin only at home Continue Lantus 5 units twice daily Insulin sliding scale #GERD-no acute issues Continue Protonix 40 mg p.o. every morning #Hyperlipidemia-no acute issues Continue Crestor 20 mg p.o. every morning DVT prophylaxis-Eliquis Disposition-continued stay but downgrade to medical/surgical unit-will be medically stable for discharge to SNF on 04/30 if renal function and potassium continue to improve-referrals made by case making machine operator Admission and Anticipated Discharge Date Admission Date: April 27, 2025 Subjective Patient feels better, not lightheaded when she got up to walk today. Has her usual abdominal pain which is relieved with oxycodone Telemetry with normal sinus rhythm and sinus tachycardia with rates in the 90s to 100s, some PACs Physical Exam Constitutional: well developed; no acute distress Respiratory: normal respiratory effort, lungs clear to auscultation Cardiovascular: RRR, no murmur, no edema Gastrointestinal (Abdomen): normal bowel sounds, soft, nontender, no hepatosplenomegaly Psychiatric: Orientation: alert, oriented to person, oriented to place and cooperative Results & Data Results & Data Vital Signs (Past 12 Hours) Vital Signs Temp Pulse Pulse Resp BP BP Pulse Ox 04/29/25 11:46 36.8 C 77 18 158/71 H 95 04/29/25 10:42 90 18 92 04/29/25 10:02 97 H 04/29/25 07:43 36.6 C 106 H 18 155/73 H 94 04/29/25 07:28 04/29/25 07:14 103 H 17 90 04/29/25 03:59 112 H 04/29/25 03:38 04/29/25 03:06 36.6 C 92 H 24 161/68 H 90 O2 Del Method O2 Flow Rate 04/29/25 11:46 Nasal Cannula 4 04/29/25 10:42 Nasal Cannula 4 04/29/25 10:02 04/29/25 07:43 Nasal Cannula 4 04/29/25 07:28 Nasal Cannula 7 04/29/25 07:14 Nasal Cannula 4 04/29/25 03:59 04/29/25 03:38 Nasal Cannula 3 04/29/25 03:06 Nasal Cannula 3.5 Laboratory Results CBC, BMP, magnesium, urine culture, blood cultures, HgbA1c reviewed PG Care Time/CCT Total # of Minutes Spent Total Time Spent with Patient: Total time spent is greater than 50% in coordination of care (as documented) at patient's floor/unit and/or counseling patient: Coding Level of Care Code 10478 SUB INP/OBS CARE 2/35MIN Diagnoses Diarrhea R19.7 Abdominal pain R10.9 Acute on chronic respiratory failure with hypoxia J96.21
[2025-04-29] MEDS: ACETAMINOPHEN 500 MG TAB PO SCH (15:05)
--- NOTE | 2025-04-29 23:24 | Electrocardiogram Report ---
Test Reason : Blood Pressure : */* mmHG Vent. Rate : 89 BPM Atrial Rate : 89 BPM P-R Int : 132 ms QRS Dur : 80 ms QT Int : 352 ms P-R-T Axes : 70 30 70 degrees QTcB Int : 428 ms Normal sinus rhythm Normal ECG When compared with ECG of 26-Apr-2025 22:25, Nonspecific T wave abnormality no longer evident in Inferior leads T wave amplitude has decreased in Anterior leads Confirmed by Mickey Lobato ([id number]) on 04/29/2025 11:24:49 PM Referred By: REFERRED SELF Confirmed By: Mickey Lobato
--- NOTE | 2025-04-29 23:24 | Electrocardiogram Report ---
Test Reason : Blood Pressure : */* mmHG Vent. Rate : 77 BPM Atrial Rate : 77 BPM P-R Int : 144 ms QRS Dur : 72 ms QT Int : 408 ms P-R-T Axes : -8 -12 0 degrees QTcB Int : 463 ms Normal sinus rhythm Low voltage QRS Possible Inferior infarct , age undetermined Peaked T waves(consider ischemia,hyperkalemia,etc.) Abnormal ECG When compared with ECG of 26-Nov-2024 09:56, Non-specific change in ST segment in Inferior leads Nonspecific T wave abnormality now evident in Inferior leads T waves are now peaked Confirmed by Mickey Lobato ([id number]) on 04/29/2025 11:24:18 PM Referred By: REFERRED SELF Confirmed By: Mickey Lobato
[2025-04-30] MEDS ORDERED: PHA DELIRIUM CONSULT PRN (00:59)
[2025-04-30 06:43] LABS: Basophils # (auto) 0.03 K/uL (0.00-0.20); Basophils % (auto) 0.5 %; Eosinophils # (auto) 0.28 K/uL (0.00-0.50); Eosinophils % (auto) 4.8 %; Hematocrit (blood only) 23.7 % (37.0-47.0); Hemoglobin 7.2 g/dl (12.0-16.0); Immature Granulocytes # (auto) 0.05 K/uL (0.01-0.20); Immature Granulocytes % (auto) 0.8 %; Lymphocytes # (auto) 0.79 K/uL (1.20-3.40); Lymphocytes % (auto) 13.4 %; Mean Corpuscular Hemoglobin 28.5 pg (25.0-34.0); Mean Corpuscular Hgb Conc 30.4 g/dL (32.0-36.0); Mean Corpuscular Volume 93.7 fL (80.0-100.0); Monocytes # (auto) 0.52 K/uL (0.11-0.59); Monocytes % (auto) 8.8 %; Neutrophils # (auto) 4.22 K/uL (1.40-6.50); Neutrophils % (auto) 71.7 %; Platelet Count 263 K/uL (130-400); RDW Coefficient of Variation 19.3 % (11.5-14.5); RDW Standard Deviation 65.3 fL (36.4-46.3); Red Blood Count 2.53 M/uL (4.20-5.40); White Blood Count 5.89 K/ul (4.8-10.8)
[2025-04-30 07:03] LABS: Polychromasia 1+
[2025-04-30 07:06] LABS: BUN Creatinine Ratio 12.8 (10-20); Calcium 8.1 mg/dl (8.6-10.3); Creatinine Clr Calc Pharmacy 25.5 ml/min; Magnesium 1.7 mg/dl (1.7-2.4); Potassium 5.1 mmol/L (3.5-5.1)
[2025-04-30] MEDS: SODIUM CHLORIDE 0.9% 1,000 ML IV SCH (10:50)
[2025-04-30] MEDS: MAGNESIUM SULFATE / D5W 1 GM/100 ML BAG IV ONE (10:50)
[2025-04-30] MEDS ORDERED: bisacodyL 10 MG SUPP PR PRN (15:21)
--- NOTE | 2025-04-30 15:21 | Hospitalist Progress Note ---
Date of Service April 30, 2025 Assessment & Plan (1) Abdominal pain: (2) Acute on chronic respiratory failure with hypoxia: (3) TATY (acute kidney injury): (4) Hyperkalemia: Plan This patient is a 75-year-old female with a history of PAF on Eliquis, HFpEF, current smoker, HTN, mesenteric artery stenosis, chronic respiratory failure with hypercarbia and hypoxemia, DM2, COPD, chronic abdominal pain on opioids, GERD, HLD here after being found down on the ground with altered mental status, abdominal pain and diarrhea, acute kidney injury, hyperkalemia, and acute on chronic respiratory failure with hypercarbia and hypoxemia. #Acute on chronic abdominal pain/mesenteric artery stenosis/diarrhea-I have taken care of her in the past and her abdominal pain is similar to previous and there are no significant findings on CT abdomen/pelvis that are new. She has a AAA that is 4.5 cm and no evidence of rupture. She has declined evaluation by vascular surgery in the past for her mesenteric artery stenosis. She takes chronic oxycodone at home- she is no longer on long-acting OxyContin at home- medication reconciliation was corrected. There still has been no bowel movement at all since admission thus far so stool studies have not been sent. In fact, s he has been constipated from opioids - Continue oxycodone as needed for pain - Continue bowel regimen for constipation with MiraLAX, Senokot/docusate, and add bisacodyl suppository -Follow blood cultures-no growth to date #Acute on chronic respiratory failure with hypercarbia and hypoxemia/COPD- patient does not use her home trilogy machine and has known chronic CO2 reten tion. VBG here show acute on chronic respiratory acidosis. She did refuse to wear the BiPAP on the evening of 04/28 but is now wearing it. She frequently takes off her nasal cannula oxygen as well here. - Continue BiPAP at bedtime Albuterol as needed DuoNeb scheduled Continue Breo Ellipta or formulary equivalent Continue guaifenesin -Continue supplemental O2 to keep pulse ox greater than 89% #TATY on CKD/hyperkalemia/hypomagnesemiacreatinine = 1.94 which is increased from baseline 1.29. Potassium is mildly elevated at 5.6. With peaked T waves on admitting EKG. She has been treated with insulin and D50 as well as IV calcium. She was given further IV fluids for hydration. Potassium now continues to improve down to 5.1 and creatinine is improved to 1.6. UA on admission contaminated with epithelial cells but urine cultures pending-no need for antibiotics. Gutierrez catheter discontinued on 04/30 and she is voiding -Continue low potassium diet - Continue Lokelma once daily Avoid nephrotoxic agents-continue holding home Lasix, metformin Renal dosing as needed -Follow BMP,Mg in the morning -give 1 more L NS on 04/30 and give 1 gram IV mag #Chronic anemia-with iron studies showing transferrin saturation only 14%. Likely anemia of chronic disease and iron deficiency. Ferritin 168. B12, folate, TSH all normal. Hgb remains low at 7.2,stable, no bleeding from anywhere -Give Venofer 200 mg IV once daily x 5 doses while here - Follow CBC -Continue home folic acid -check hemoccult stool #Paroxysmal atrial fibrillation/HTN/HFpEF-she remains in sinus rhythm here and is hypovolemic with TATY. Last echo 10/2023 with preserved EF, no obvious valvular disease, with mild pulmonary HTN. Blood pressures here were mildly low on admission but now normal. During last/previous admission, her lisinopril and diltiazem were both discontinued for low blood pressures Continue apixaban but dose reduced for decreased renal function and body weight to 2.5 Mg p.o. twice daily -Continue lower dose of metoprolol tartrate 25 mg twice daily due to low normal blood pressures-increase if needed for hypertension - Continue aspirin # DM2-last A1c 7.5% in 11/2024 and now remains controlled at 7.6% blood sugars here are controlled to somewhat elevated but that is after receiving D50 and insulin for hyperkalemia. On metformin only at home Continue Lantus 5 units twice daily Insulin sliding scale #GERD-no acute issues Continue Protonix 40 mg p.o. every morning #Hyperlipidemia-no acute issues Continue Crestor 20 mg p.o. every morning DVT prophylaxis-Eliquis Disposition-continued stay on medical/surgical unit- medically stable for discharge to SNF once renal function and potassium continue to improve-referrals made by disability case manager but won't be able to get insurance auth til at least Friday one bed found. Continue PT/OT Admission and Anticipated Discharge Date Admission Date: April 27, 2025 Subjective Patient still constipated and has not moved her bowels since admission as per nursing. Has the same chronic abdominal pain. She was not wearing her oxygen when I walked in the room-it was on her head. It appears she did wear the BiPAP overnight. She had her Gutierrez catheter removed and is voiding without difficulty. Physical Exam Constitutional: well developed; no acute distress Respiratory: normal respiratory effort, lungs clear to auscultation Cardiovascular: RRR, no murmur, no edema Gastrointestinal (Abdomen): Inspection/Auscultation: normal bowel sounds; abdomen not distended Percussion/Palpation: + abdomen tender (Mildly diffusely tender without guarding or rebound) and abdomen soft Psychiatric: Orientation: alert, oriented to person, oriented to place and cooperative Results & Data Results & Data Vital Signs (Past 12 Hours) Vital Signs Temp Pulse Pulse Resp BP BP Pulse Ox 04/30/25 14:32 36.9 C 85 19 137/68 90 04/30/25 11:37 69 19 83 L 04/30/25 11:21 36.8 C 71 18 149/76 H 93 04/30/25 08:51 04/30/25 07:39 36.4 C L 87 18 129/73 86 L 04/30/25 07:33 87 19 88 L 04/30/25 03:38 26 H 93 O2 Del Method O2 Flow Rate FiO2 04/30/25 14:32 Nasal Cannula 3 04/30/25 11:37 Nasal Cannula 3 04/30/25 11:21 Nasal Cannula 2 04/30/25 08:51 Nasal Cannula 2 04/30/25 07:39 Nasal Cannula 2 04/30/25 07:33 Nasal Cannula 2 04/30/25 03:38 40 Laboratory Results CBC, BMP, magnesium, blood cultures, urine culture reviewed PG Care Time/CCT Total # of Minutes Spent Total Time Spent with Patient: Total time spent is greater than 50% in coordination of care (as documented) at patient's floor/unit and/or counseling patient: Coding Level of Care Code 83815 SUB INP/OBS CARE 2/35MIN Diagnoses Abdominal pain R10.9 Acute on chronic respiratory failure with hypoxia J96.21 TATY (acute kidney injury) N17.9 Hyperkalemia E87.5
[2025-04-30] MEDS: bisacodyL 10 MG SUPP PR STA (15:58)
[2025-05-01] MEDS: hydrALAZINE HCL 20 MG/ML VIAL IV PRN (00:37)
[2025-05-01 08:36] LABS: Hematocrit (blood only) 25.3 % (37.0-47.0); Hemoglobin 7.7 g/dl (12.0-16.0); Red Blood Count 2.76 M/uL (4.20-5.40); White Blood Count 6.74 K/ul (4.8-10.8)
[2025-05-01 08:37] LABS: Basophils # (auto) 0.05 K/uL (0.00-0.20); Basophils % (auto) 0.7 %; Eosinophils # (auto) 0.42 K/uL (0.00-0.50); Eosinophils % (auto) 6.2 %; Immature Granulocytes # (auto) 0.14 K/uL (0.01-0.20); Immature Granulocytes % (auto) 2.1 %; Lymphocytes # (auto) 1.25 K/uL (1.20-3.40); Lymphocytes % (auto) 18.5 %; Mean Corpuscular Hemoglobin 27.9 pg (25.0-34.0); Mean Corpuscular Hgb Conc 30.4 g/dL (32.0-36.0); Mean Corpuscular Volume 91.7 fL (80.0-100.0); Mean Platelet Volume 10.7 fL (9.4-12.4); Monocytes % (auto) 8.9 %; Neutrophils # (auto) 4.28 K/uL (1.40-6.50); Neutrophils % (auto) 63.6 %; Platelet Count 287 K/uL (130-400); RDW Coefficient of Variation 19.2 % (11.5-14.5); RDW Standard Deviation 63.1 fL (36.4-46.3)
[2025-05-01 08:53] LABS: BUN Creatinine Ratio 14.3 (10-20); Calcium 8.2 mg/dl (8.6-10.3); Creatinine Clr Calc Pharmacy 31.5 ml/min; Magnesium 1.5 mg/dl (1.7-2.4); Potassium 4.6 mmol/L (3.5-5.1)
[2025-05-01 09:10] LABS: Acanthocytes 1+; Polychromasia 1+
[2025-05-01 11:24] LABS: Codeine Urine NEGATIVE ng/mL (<50); Hydrocodone Urine NEGATIVE ng/mL (<50); Hydromor Urine NEGATIVE ng/mL (<50); Morphine Urine NEGATIVE ng/mL (<50); Norhydrocodone Conf Ur NEGATIVE ng/mL (<50); Noroxycodone Urine 431 ng/mL (<50); Oxycodone Urine 1540 ng/mL (<50); Oxymorph Urine 2540 ng/mL (<50)
--- NOTE | 2025-05-01 11:39 | Hospitalist Progress Note ---
Date of Service May 01, 2025 Assessment & Plan (1) Abdominal pain: (2) Acute on chronic respiratory failure with hypoxia: (3) TATY (acute kidney injury): (4) Hyperkalemia: Plan This patient is a 75-year-old female with a history of PAF on Eliquis, HFpEF, current smoker, HTN, mesenteric artery stenosis, chronic respiratory failure with hypercarbia and hypoxemia, DM2, COPD, chronic abdominal pain on opioids, GERD, HLD here after being found down on the ground with altered mental status, abdominal pain and diarrhea, acute kidney injury, hyperkalemia, and acute on chronic respiratory failure with hypercarbia and hypoxemia. #Acute on chronic abdominal pain/mesenteric artery stenosis/ chronic abd pain, most likely exacerbated by chronic opioid use CT abdomen/pelvis did not show anything new, She has a AAA that is 4.5 cm and no evidence of rupture. She has declined evaluation by vascular surgery in the past for her mesenteric artery stenosis. She takes chronic oxycodone at home- she is no longer on long-acting OxyContin at home - Continue bowel regimen for constipation with MiraLAX, Senokot/docusate, and add bisacodyl suppository #Acute on chronic respiratory failure with hypercarbia and hypoxemia/COPD -patient does not use her home trilogy machine and has known chronic CO2 retention. VBG here show acute on chronic respiratory acidosis. She did refuse to wear the BiPAP on the evening of 04/28 but is now wearing it. She frequently takes off her nasal cannula oxygen as well here. - Continue BiPAP at bedtime Albuterol as needed DuoNeb scheduled Continue Breo Ellipta or formulary equivalent Continue guaifenesin -Continue supplemental O2 to keep pulse ox greater than 89% #TATY on CKD/hyperkalemia/hypomagnesemia On admission,creatinine = 1.94 which is increased from baseline 1.29. Potassium was mildly elevated at 5.6. With peaked T waves on admitting EKG. She has been treated with insulin and D50 as well as IV calcium. She was given further IV fluids for hydration. Potassium has normalized and creatinine is improved. Stop Lokelma #Chronic anemia-with iron studies showing transferrin saturation only 14%. Likely anemia of chronic disease and iron deficiency. Ferritin 168. B12, folate, TSH all normal. Hgb remains low at 7.2,stable, no bleeding from anywhere -Give Venofer 200 mg IV once daily x 5 doses while here - Follow CBC -Continue home folic acid -check hemoccult stool #Paroxysmal atrial fibrillation/HTN/HFpEF- she remains in sinus rhythm here . Last echo 10/2023 with preserved EF, no obvious valvular disease, with mild pulmonary HTN. Blood pressures here were mildly low on admission but now normal. During last/previous admission, her lisinopril and diltiazem were both discontinued for low blood pressures Continue apixaban but dose reduced for decreased renal function and body weight to 2.5 Mg p.o. twice daily -Continue lower dose of metoprolol tartrate 25 mg twice daily due to low normal blood pressures-increase if needed for hypertension - Continue aspirin # DM2-last A1c 7.5% in 11/2024 and now remains controlled at 7.6% blood sugars here are controlled to somewhat elevated but that is after receiving D50 and insulin for hyperkalemia. On metformin only at home Continue Lantus 5 units twice daily Insulin sliding scale #GERD-no acute issues Continue Protonix 40 mg p.o. every morning #Hyperlipidemia-no acute issues Continue Crestor 20 mg p.o. every morning DVT prophylaxis-Eliquis Disposition-continued stay on medical/surgical unit- medically stable for discharge to SNF once renal function and potassium continue to improve-referrals made by catalytic case operator but won't be able to get insurance auth til at least Friday one bed found. Continue PT/OT Admission and Anticipated Discharge Date Admission Date: April 27, 2025 Subjective patient seen and examined today, says she almost choked on her food yesterday, wants tomato soup Review of Systems Review of Systems: All systems reviewed are negative, apart from the ones contained in the history. Physical Exam Physical Exam: The patient is awake, alert and oriented 3, well developed and well nourished, normocephalic and atraumatic, lying in bed and in no acute distress. HEENT--PERRL, EOMI, mucous membranes and oropharynx mildly dry Neck--supple. No JVD. No bruits. Thyroid normal, trachea midline, no adenopathy. Heart--normal S1 and S2. No murmurs, rubs or gallops. Lungs--clear bilaterally, no respiratory distress, no accessory muscle use. Abdomen--normal bowel sounds and soft. Extremities--no cyanosis or clubbing. No edema. Dermatologic--normal skin turgor, normal color, no abnormal lymph nodes, no rash. Neurologic--cranial nerves II through XII grossly intact. Rheumatologic--normal range of motion. Psychiatric--normal affect. Results & Data Results & Data Vital Signs (Past 12 Hours) Vital Signs Temp Pulse Pulse Resp BP BP Pulse Ox 05/01/25 11:19 99.5 F 83 18 157/70 H 94 05/01/25 08:20 99.0 F 83 18 180/77 H 94 05/01/25 08:00 05/01/25 07:31 87 19 96 05/01/25 04:00 98.4 F 85 18 173/71 H 95 05/01/25 01:38 80 176/72 H 05/01/25 00:01 04/30/25 23:58 194/76 H 193/64 H O2 Del Method O2 Flow Rate 05/01/25 11:19 Nasal Cannula 3 05/01/25 08:20 Nasal Cannula 4 05/01/25 08:00 Nasal Cannula 4 05/01/25 07:31 Nasal Cannula 5 05/01/25 04:00 Nasal Cannula 4 05/01/25 01:38 05/01/25 00:01 Nasal Cannula 4 04/30/25 23:58 PG Care Time/CCT Total # of Minutes Spent Total Time Spent with Patient: Total time spent is greater than 50% in coordination of care (as documented) at patient's floor/unit and/or counseling patient: Coding Level of Care Code 01116 SUB INP/OBS CARE 2/35MIN Diagnoses Abdominal pain R10.9 Acute on chronic respiratory failure with hypoxia J96.21 TATY (acute kidney injury) N17.9 Hyperkalemia E87.5 Time Spent (min) 35
[2025-05-01] MEDS ORDERED: ALBUT/IPRATROP 3MG/0.5MG NEB 3 ML VIAL INH PRN (11:57)
[2025-05-02 06:29] LABS: Hematocrit (blood only) 26.4 % (37.0-47.0); Hemoglobin 8.1 g/dl (12.0-16.0); Mean Corpuscular Hemoglobin 28.2 pg (25.0-34.0); Mean Corpuscular Hgb Conc 30.7 g/dL (32.0-36.0); Mean Platelet Volume 10.7 fL (9.4-12.4); Nucleated RBC # (auto) 0.02 K/uL (0.00-0.12); Nucleated RBC % (auto) 0.3 %; Platelet Count 310 K/uL (130-400); RDW Coefficient of Variation 19.7 % (11.5-14.5); RDW Standard Deviation 64.7 fL (36.4-46.3); Red Blood Count 2.87 M/uL (4.20-5.40); White Blood Count 6.95 K/ul (4.8-10.8)
[2025-05-02 06:45] LABS: BUN Creatinine Ratio 13.2 (10-20); Calcium 8.2 mg/dl (8.6-10.3); Creatinine Clr Calc Pharmacy 25.1 ml/min; Potassium 4.5 mmol/L (3.5-5.1)
[2025-05-02 08:24] VITALS: BP 174/80
[2025-05-02 11:25] VITALS: PULSE 72; RESP 15; TEMP 98.2; O2SAT 94
--- NOTE | 2025-05-02 12:23 | Discharge Summary ---
Date of Service May 02, 2025 Admission HPI Per Admitting Provider Daniella Gandara is a 75yo female with history of acute hypoxic respiratory failure secondary to COPD on home O2, HTN, HLP, DM and CKD presenting from home with poor oral intake, non-adherence to medications and refusing her supplemental O2. Patient had several episodes of diarrhea prior to arrival. No family present during my encounter. Patient asleep but arousable. States that she is having severe abdominal pain and diarrhea. She has not noticed any blood. No report of fever, chills, chest pain, cough, SOB. Patient did not answer when asked if she has been taking her home medications. *[facility] has been contacted Admission Exam (Per Admitting) Constitutional The patient is awake, alert and oriented 3, well developed and well nourished, normocephalic and atraumatic, lying in bed and in no acute distress. HEENT--PERRL, EOMI, mucous membranes and oropharynx mildly dry Neck--supple. No JVD. No bruits. Thyroid normal, trachea midline, no adenopathy. Heart--normal S1 and S2. No murmurs, rubs or gallops. Lungs--clear bilaterally, no respiratory distress, no accessory muscle use. Abdomen--normal bowel sounds and soft. Extremities--no cyanosis or clubbing. No edema. Dermatologic--normal skin turgor, normal color, no abnormal lymph nodes, no rash. Neurologic--cranial nerves II through XII grossly intact. Rheumatologic--normal range of motion. Psychiatric--normal affect. Discharge Data Consultations 04/27/25 01:31 ED Decision to Admit Stat Hospital Course (1) Abdominal pain: (2) Acute on chronic respiratory failure with hypoxia: (3) TATY (acute kidney injury): (4) Hyperkalemia: Plan This patient is a 75-year-old female with a history of PAF on Eliquis, HFpEF, current smoker, HTN, mesenteric artery stenosis, chronic respiratory failure with hypercarbia and hypoxemia, DM2, COPD, chronic abdominal pain on opioids, GERD, HLD here after being found down on the ground with altered mental status, abdominal pain and diarrhea, acute kidney injury, hyperkalemia, and acute on chronic respiratory failure with hypercarbia and hypoxemia. #Acute on chronic abdominal pain/mesenteric artery stenosis/ chronic abd pain, most likely exacerbated by chronic opioid use CT abdomen/pelvis did not show anything new, She has a AAA that is 4.5 cm and no evidence of rupture. She has declined evaluation by vascular surgery in the past for her mesenteric artery stenosis. She takes chronic oxycodone at home- she is no longer on long-acting OxyContin at home - Continue bowel regimen for constipation with MiraLAX, Senokot/docusate, and add bisacodyl suppository #Acute on chronic respiratory failure with hypercarbia and hypoxemia/COPD -patient does not use her home trilogy machine and has known chronic CO2 retention. VBG here show acute on chronic respiratory acidosis. She did refuse to wear the BiPAP on the evening of 04/28 but is now wearing it. She frequently takes off her nasal cannula oxygen as well here. - Continue BiPAP at bedtime Albuterol as needed DuoNeb scheduled Continue Breo Ellipta or formulary equivalent Continue guaifenesin -Continue supplemental O2 to keep pulse ox greater than 89% #TATY on CKD/hyperkalemia/hypomagnesemia On admission,creatinine = 1.94 which is increased from baseline 1.29. Potassium was mildly elevated at 5.6. With peaked T waves on admitting EKG. She has been treated with insulin and D50 as well as IV calcium. She was given further IV fluids for hydration. Potassium has normalized and creatinine is improved. Stop Lokelma #Chronic anemia-with iron studies showing transferrin saturation only 14%. Likely anemia of chronic disease and iron deficiency. Ferritin 168. B12, folate, TSH all normal. Hgb remains low at 7.2,stable, no bleeding from anywhere -Give Venofer 200 mg IV once daily x 5 doses while here - Follow CBC -Continue home folic acid -check hemoccult stool #Paroxysmal atrial fibrillation/HTN/HFpEF- she remains in sinus rhythm here . Last echo 10/2023 with preserved EF, no obvious valvular disease, with mild pulmonary HTN. Blood pressures here were mildly low on admission but now normal. During last/previous admission, her lisinopril and diltiazem were both discontinued for low blood pressures Continue apixaban but dose reduced for decreased renal function and body weight to 2.5 Mg p.o. twice daily -Continue lower dose of metoprolol tartrate 25 mg twice daily due to low normal blood pressures-increase if needed for hypertension - Continue aspirin # DM2-last A1c 7.5% in 11/2024 and now remains controlled at 7.6% blood sugars here are controlled to somewhat elevated but that is after receiving D50 and insulin for hyperkalemia. On metformin only at home Continue Lantus 5 units twice daily Insulin sliding scale #GERD-no acute issues Continue Protonix 40 mg p.o. every morning #Hyperlipidemia-no acute issues Continue Crestor 20 mg p.o. every morning DVT prophylaxis-Eliquis Disposition-discharge home with home health Coding Level of Care Code 17422 INP/OBS DISCH >30 MIN Diagnoses Abdominal pain R10.9 Acute on chronic respiratory failure with hypoxia J96.21 TATY (acute kidney injury) N17.9 Hyperkalemia E87.5 Time Spent (min) 35
== END 2025-05-02 15:41 | disposition home health service (06) | DRG 391 ==
LOC: SUATTDRO → ED 22:15 → INTOOBSV 04-27 01:18 → EDINP 04-27 01:18 → SUATTDRO 04-27 01:18 → 2N 04-27 04:24 → 3E 05-01 17:44

== ENCOUNTER 2025-09-09 10:57 | Observation (INO) ==
--- NOTE | 2025-09-09 11:08 | Emergency Department Note ---
Impression & Plan Back pain, Fracture of thoracic spine, Anemia ED Provider Note NAME: DANIELLA FLANNERY AGE: 75 SEX: F : 1950 ARRIVES VIA: Ambulance INFORMANT: Patient ED PROVIDER(S): Elliot Loja DO CHIEF COMPLAINT: back pain HPI: Patient is a 75-year-old female with a past medical history of chronic pain, COPD, chronically on 4 L nasal cannula, history of A-fib, hypoxemic respiratory failure, diabetes who presents to the ER for right flank pain. Patient notes that she has had right back pain for the past week. Has been getting worse. Her PCP told her that she should come in to be evaluated. She denies any new weakness or numbness in the legs. She admits to some pain with urination. Denies any headache or change in vision. No new chest pain or shortness of breath. Chronically on 4 L nasal cannula. No belly pain other than right lower back pain which is worse with twisting, turning, and bending. ADDITIONAL HISTORY OBTAINED: Per HPI Chronic Medical/Social Conditions Affecting Care: Per HPI PAST MEDICAL HISTORY:See Below PAST SURGICAL HISTORY:See Below FAMILY HISTORY:See Below SOCIAL HISTORY:See Below HOME MEDICATIONS:See Below ALLERGIES:See Below VITALS:See Below PHYSICAL EXAMINATION: GENERAL: Sitting up in bed, alert, chronically ill-appearing, disheveled, on 4 L nasal cannula, intermittent cough EYE EXAM: normal conjunctiva. PERRL and EOM's grossly intact. OROPHARYNX: no exudate, no erythema, lips, buccal mucosa, and tongue normal and mucous membranes are moist NECK: supple, no nuchal rigidity, no adenopathy, non-tender LUNGS: Clear to auscultation. Normal chest wall mechanics HEART: no murmurs, S1 normal and S2 normal ABDOMEN: abdomen soft, non-tender, normo-active bowel sounds, no masses, no rebound or guarding. BACK: Back is symmetrical on inspection and there is no deformity, no midline tenderness but acute reproducible tenderness in the right lumbar paraspinal region, no CVA tenderness. SKIN: no rashes and no bruising UPPER EXTREMITIES: upper extremities are grossly normal. LOWER EXTREMITIES: Flexion extension bilateral hips knees ankles is intact. NEURO EXAM: Normal sensorium, cranial nerves II-XII grossly intact, normal speech, no gross weakness of arms, no gross weakness of legs. MEDICAL DECISION MAKING: Patient is a 75-year-old female who presents ER for above-stated complaint. IV was established and blood work is obtained. Labs show leukocytosis of 13,000. Mild anemia 11. BMP with a creatinine of 1.28. Glucose mildly elevated to 53. LFTs and bilirubin were unremarkable. Lipase was normal. UA was clean. CT abdomen pelvis showed a T12 fracture. Chest x-ray was unremarkable. Patient was given multiple dose of IV narcotics. She was unable to sit up or roll over due to the pain. Case was discussed with the hospitalist for further evaluation management treatment. She was given a neb treatment while here as well. Consults/Care Managements Discussions: Per [facility] Triage Nursing notes reviewed. Limited review of prior medical records performed Vital Signs: reviewed and remarkable for no significant abnormalities Differential diagnosis: Musculoskeletal, disc herniation, fracture, metastatic disease, cord compression, discitis, sciatica, cauda equina, infection, aortic disease, renal colic, gastrointestinal, as well as other pathologies. ER treatment provided: See below Diagnostics interpreted by me include EKG and cardiac monitoring as listed below: -Cardiac Monitoring: An order was placed for continuous cardiac monitoring. The monitor shows a rate of 88 with sinus rhythm. -ECG: None -Laboratory studies:Interpreted by me as stated above in MDM and shown below. Imaging studies: Xrays: As interpreted by me: Portable AP upright 1 view of the chest CTs show: CT abdomen pelvis as described above Procedures: None Critical Care: None Past Med/Surg History Problem List (Updated 09/09/25 @ 16:42 by Elliot Loja DO) Anemia (Acute) Fracture of thoracic spine (Acute) Back pain (Acute) Hyperkalemia Diarrhea TATY (acute kidney injury) (Acute) CHF (congestive heart failure) (Acute) Change in mental state (Acute) Acute and chronic respiratory failure with hypoxia (Acute) Sepsis (Acute) Chronic pain Type 2 diabetes mellitus Cognitive changes Left lower lobe consolidation Elevated LFTs Weakness (Acute) Hypokalemia (Acute) Symptomatic anemia (Acute) Acute GI bleeding (Acute) Tobacco abuse Acute on chronic respiratory failure with hypoxia Left lower lobe pneumonia CHF (congestive heart failure) (Acute) Acute UTI (urinary tract infection) (Acute) Pleural effusion (Acute) Shortness of breath (Acute) Abdominal pain (Acute) Acute hypoxemic respiratory failure (Acute) Hypomagnesemia (Acute) COPD with acute exacerbation (Acute) Pleural effusion (Acute) CHF (congestive heart failure) (Acute) Ambulatory dysfunction Pneumonia (Acute) Acute respiratory distress (Acute) Altered mental status (Acute) Tachycardia (Acute) Hypomagnesemia (Acute) Metabolic encephalopathy Hyperglycemia Acute exacerbation of chronic obstructive pulmonary disease (Acute) Hypoxia (Acute) Afib COPD, very severe Weakness generalized Atrial fibrillation with rapid ventricular response (Acute) Dilated pancreatic duct Positive blood culture Abdominal pain Abdominal pain Lower extremity edema Respiratory distress (Acute) Hypertension (Acute) COPD exacerbation (Acute) Respiratory acidosis (Acute) Elevated lactic acid level (Acute) Tachycardia (Acute) Hypomagnesemia (Acute) Acute bronchitis with chronic obstructive pulmonary disease (COPD) SOB (shortness of breath) (Acute) Anemia (Acute) Chest tightness (Acute) UTI (urinary tract infection) Chronic pain syndrome SOB (shortness of breath) (Acute) COPD exacerbation (Acute) Dizziness (Acute) Acute UTI (Acute) Hypomagnesemia (Acute) Anemia B12 deficiency COPD exacerbation (Acute) Hyperlipidemia Dysphagia Chronic kidney disease HTN (hypertension) Thrombocythemia Chronic low back pain (Chronic) Diaphragmatic hernia (Chronic 10/31/11) Overweight (BMI 25.0-29.9) (Chronic) AAA (abdominal aortic aneurysm) Left peroneal nerve palsy (Chronic) History of knee replacement (Acute) Knee pain, left (Acute) Right knee pain (Acute) Diabetes type 2, uncontrolled (Acute) COPD (chronic obstructive pulmonary disease) (Acute) Medical History (Updated 09/09/25 @ 16:42 by Elliot Loja DO) Acute blood loss anemia Hospital-acquired pneumonia Aspiration pneumonia Current smoker Anemia Sepsis Acute confusion Severe muscle deconditioning COPD exacerbation Respiratory failure Acute hypercapnic respiratory failure TATY (acute kidney injury) AMS (altered mental status) Syncope Acute UTI Acute hypotension Chronic kidney disease, stage 3a Acute kidney injury Acute exacerbation of chronic low back pain Candidiasis of mouth and esophagus DVT prophylaxis Diabetes mellitus COPD (chronic obstructive pulmonary disease) Hypertension Hyperlipidemia Acute on chronic respiratory failure with hypoxia and hypercapnia Family History Other Family history non-contributory Social History Smoking Status: Current every day smoker Tobacco Type: Cigarettes Age Started Using Tobacco: 32; Cigarettes Per Day: 10; Second Hand Exposure: Yes; Do You Dip or Chew Tobacco: No; Hx Alcohol Use: No Hx Substance Use: No Preferred Language: Ukrainian Communication Ability: Effective 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 Beliefs That Will Affect Care: None marital status: Current Living Situation: Spouse Current Living Situation Comment: with kyrie How many Children do You have: 3 Feels Safe at Home: Yes Assistive Devices: Cane Allergies Allergies Allergy/AdvReac Type Severity Reaction Status Date / Time diflunisal AdvReac Intermediate HEART RACES Verified 04/27/25 04:45 Home Meds Home Medications Medication Instructions Recorded Confirmed apixaban 5 mg tablet (Eliquis) 5 mg PO BID 04/30/24 04/26/25 budesonide 160 mcg-glycopyr 9 2 inh inhalation BID 05/23/24 04/26/25 mcg-formot 4.8 mcg/actuation HFA inhaler (Breztri Aerosphere) furosemide 20 mg tablet 20 mg PO DAILY Edema 04/26/25 04/26/25 metoprolol tartrate 50 mg tablet 50 mg PO BID 04/26/25 04/26/25 pantoprazole 40 mg tablet,delayed 40 mg PO QAM 04/26/25 04/26/25 release oxycodone 5 mg tablet 5 mg PO TID PRN Pain 04/27/25 04/27/25 Previous Rx's Medication Instructions Recorded blood sugar diagnostic (OneTouch #50 ea 06/02/21 Verio test strips) guaifenesin 600 mg tablet, 1,200 mg (2 x 600 mg) PO Q12 12/24/24 extended release 12 hr (Mucinex) Congestion #60 tabs insulin glargine 100 unit/mL (3 15 unit (0.15 mL) subcut QAM #3 mL 12/24/24 mL) subcutaneous pen insulin lispro 100 unit/mL 5 unit (0.05 mL) subcut TID #15 mL 12/24/24 subcutaneous pen (Humalog KwikPen (U-100) Insulin) polyethylene glycol 3350 17 gram 17 g PO DAILY #30 ea 12/24/24 oral powder packet (Miralax) sennosides 8.6 mg-docusate sodium 1 tab PO QAM #30 tabs 12/24/24 50 mg tablet (Senokot-S) albuterol sulfate 90 mcg/actuation 2 puff inhalation Q6 PRN Shortness 12/27/24 aerosol inhaler (Ventolin HFA) Of Breath Or Wheezing #8.5 grams aspirin 81 mg tablet,delayed 81 mg PO QAM #30 tabs 12/27/24 release (Uri Low Dose Aspirin) cyanocobalamin (vitamin B-12) 500 1,000 mcg (2 x 500 mcg) PO QAM #60 12/27/24 mcg tablet tabs fluticasone furoate 100 1 inh inhalation DAILY #60 ea 12/27/24 mcg-vilanterol 25 mcg/dose inhalation powder (Breo Ellipta) folic acid 1 mg tablet 1 mg PO QAM #30 tabs 12/27/24 ipratropium 0.5 mg-albuterol 3 mg 3 ml inhalation Q4H PRN shortness 12/27/24 (2.5 mg base)/3 mL nebulization of breath #90 mL soln metformin 1,000 mg tablet 1,000 mg PO BID #60 tabs 12/27/24 rosuvastatin 20 mg tablet 20 mg PO QAM #30 tabs 12/27/24 umeclidinium 62.5 mcg/actuation 1 inh inhalation DAILY #30 ea 12/27/24 blister powder for inhalation (Incruse Ellipta) Results & Data (ED) Vital Signs Vital Signs - 24 hr 09/09/25 11:06 09/09/25 11:07 09/09/25 11:11 Pulse Rate 84 89 88 Pulse Rate from SpO2 Sensor Respiratory Rate 21 16 Respiratory Effort / Characteristics Non-Labored Spontaneous Respiratory Depth Normal Respiratory Pattern Regular Blood Pressure 165/78 H 165/78 H Blood Pressure Mean 116 107 Pulse Oximetry 98 100 Oxygen Delivery Method Nasal Cannula Nasal Cannula Oxygen Flow Rate 4 4 Sepsis Recent Fever Within 48 Hours No Sepsis New/Unexplained Change in Mental Status N/A Sepsis Action Taken by Nursing No Action Required 09/09/25 11:30 09/09/25 12:17 09/09/25 12:30 Pulse Rate 82 79 79 Pulse Rate from SpO2 Sensor Respiratory Rate 22 21 24 Respiratory Effort / Characteristics Respiratory Depth Respiratory Pattern Blood Pressure 146/66 H 137/65 Blood Pressure Mean 88 106 Pulse Oximetry 100 96 98 Oxygen Delivery Method Nasal Cannula Nasal Cannula Nasal Cannula Oxygen Flow Rate 4 4 4 Sepsis Recent Fever Within 48 Hours Sepsis New/Unexplained Change in Mental Status Sepsis Action Taken by Nursing 09/09/25 13:00 09/09/25 13:30 09/09/25 13:42 Pulse Rate 84 80 83 Pulse Rate from SpO2 Sensor 86 Respiratory Rate 24 22 31 H Respiratory Effort / Characteristics Respiratory Depth Respiratory Pattern Blood Pressure 122/58 L 141/59 H Blood Pressure Mean 76 88 Pulse Oximetry 99 99 98 Oxygen Delivery Method Nasal Cannula Nasal Cannula Oxygen Flow Rate 4 4 Sepsis Recent Fever Within 48 Hours Sepsis New/Unexplained Change in Mental Status Sepsis Action Taken by Nursing 09/09/25 13:54 09/09/25 14:09 09/09/25 14:21 Pulse Rate 82 86 77 Pulse Rate from SpO2 Sensor 82 85 Respiratory Rate 29 H 23 31 H Respiratory Effort / Characteristics Respiratory Depth Respiratory Pattern Blood Pressure Blood Pressure Mean Pulse Oximetry 99 98 Oxygen Delivery Method Oxygen Flow Rate Sepsis Recent Fever Within 48 Hours Sepsis New/Unexplained Change in Mental Status Sepsis Action Taken by Nursing 09/09/25 14:21 09/09/25 14:21 09/09/25 14:21 Pulse Rate Pulse Rate from SpO2 Sensor Respiratory Rate Respiratory Effort / Characteristics Respiratory Depth Respiratory Pattern Blood Pressure 127/57 L 127/57 L 127/57 L Blood Pressure Mean 75 75 75 Pulse Oximetry Oxygen Delivery Method Oxygen Flow Rate Sepsis Recent Fever Within 48 Hours Sepsis New/Unexplained Change in Mental Status Sepsis Action Taken by Nursing 09/09/25 14:30 09/09/25 14:30 09/09/25 14:48 Pulse Rate 89 89 Pulse Rate from SpO2 Sensor 89 89 Respiratory Rate 26 H 20 Respiratory Effort / Characteristics Respiratory Depth Respiratory Pattern Blood Pressure 133/59 L Blood Pressure Mean 83 Pulse Oximetry 99 97 Oxygen Delivery Method Oxygen Flow Rate Sepsis Recent Fever Within 48 Hours Sepsis New/Unexplained Change in Mental Status Sepsis Action Taken by Nursing 09/09/25 14:54 09/09/25 15:00 09/09/25 15:00 Pulse Rate 90 Pulse Rate from SpO2 Sensor 88 Respiratory Rate 16 Respiratory Effort / Characteristics Respiratory Depth Respiratory Pattern Blood Pressure 144/71 H 144/71 H Blood Pressure Mean 109 109 Pulse Oximetry 97 Oxygen Delivery Method Oxygen Flow Rate Sepsis Recent Fever Within 48 Hours Sepsis New/Unexplained Change in Mental Status Sepsis Action Taken by Nursing 09/09/25 15:00 09/09/25 15:15 Pulse Rate 86 86 Pulse Rate from SpO2 Sensor 85 84 Respiratory Rate 23 22 Respiratory Effort / Characteristics Respiratory Depth Respiratory Pattern Blood Pressure Blood Pressure Mean Pulse Oximetry 97 99 Oxygen Delivery Method Oxygen Flow Rate Sepsis Recent Fever Within 48 Hours Sepsis New/Unexplained Change in Mental Status Sepsis Action Taken by Nursing Laboratory Data 09/09/25 11:20 09/09/25 11:20 Lab Results 09/09/25 09/09/25 Range/Units 11:18 11:20 WBC 13.23 H (4.8-10.8) K/ul RBC 3.90 L (4.20-5.40) M/uL Hgb 11.0 L (12.0-16.0) g/dl Hct 36.7 L (37.0-47.0) % MCV 94.1 (80.0-100.0) fL MCH 28.2 (25.0-34.0) pg MCHC 30.0 L (32.0-36.0) g/dL RDW Std Deviation 58.4 H (36.4-46.3) fL RDW Coeff of Dorcas 17.0 H (11.5-14.5) % Plt Count 366 (130-400) K/uL MPV 10.3 (9.4-12.4) fL Immature Gran % (Auto) 0.8 % Neut % (Auto) 92.3 % Lymph % (Auto) 4.3 % Roane % (Auto) 2.0 % Eos % (Auto) 0.3 % Baso % (Auto) 0.3 % Neut # (Auto) 12.21 H (1.40-6.50) K/uL Lymph # (Auto) 0.57 L (1.20-3.40) K/uL Roane # (Auto) 0.27 (0.11-0.59) K/uL Eos # (Auto) 0.04 (0.00-0.50) K/uL Baso # (Auto) 0.04 (0.00-0.20) K/uL Immature Gran # (Auto) 0.10 (0.01-0.20) K/uL Sodium 138 (136-145) mmol/L Potassium 4.4 (3.5-5.1) mmol/L Chloride 102 (98-107) mmol/L Carbon Dioxide 26 (21-32) mmol/L Anion Gap 10 (3-11) BUN 25 H (6-23) mg/dl Creatinine 1.28 H (0.6-1.2) mg/dl Est Cr Clr Drug Dosing 32.4 ml/min eGFR 44.23 BUN/Creatinine Ratio 19.5 (10-20) Glucose 253 H (70-99(Fasting)) mg/dl POC Glucose 248 H (70-99) mg/dl Calcium 8.7 (8.6-10.3) mg/dl Total Bilirubin 0.3 (0.2-1.0) mg/dl AST 35 (13-39) U/L ALT 42 (7-52) U/L Alkaline Phosphatase 137 H (34-104) U/L Total Protein 6.3 (6.0-8.3) gm/dl Albumin 3.6 (3.4-5.0) gm/dl Globulin 2.7 (2.5-4.0) gm/dl Albumin/Globulin Ratio 1.3 (0.9-2) Lipase 13 (11-82) U/L Urine Color Yellow Urine Appearance Clear (Clear) Urine pH 5.0 (4.5-7.5) Ur Specific Maryneal 1.013 (1.000-1.030) Urine Protein 2+ H (Negative) Urine Glucose (UA) Negative (Negative) Urine Ketones Negative (Negative) Urine Blood Negative (Negative) Urine Nitrite Negative (Negative) Urine Bilirubin Negative (Negative) Urine Urobilinogen Negative (Negative) Ur Leukocyte Esterase Negative (Negative) Urine WBC (Auto) 0-5 (0-5) /hpf Urine RBC (Auto) 0-2 (0-2) /hpf U Hyaline Cast (Auto) 0-2 (0-2) /lpf U Epithel Cells (Auto) 0-2 (0-2) /hpf Urine Bacteria (Auto) None Seen (None Seen) Urine Comment Administered Medications Discontinued Medications Albuterol (Albut/Ipratrop 3mg/0.5mg Neb 3 Ml Vial) 3 ml NEB NOW STA; Protocol Stop: 09/09/25 11:09 Last Admin: 09/09/25 11:23 Dose: 3 ml Documented By: BING Sodium Chloride (Nss) 1,000 mls @ 999 mls/hr IV .Q1H1M ONE Stop: 09/09/25 12:06 Last Admin: 09/09/25 11:24 Dose: 999 mls/hr Documented By: BING Morphine Sulfate (Morphine Sulfate 4 Mg/Ml 1 Ml Carp\Vial) 3 mg IV NOW STA Stop: 09/09/25 11:07 Last Admin: 09/09/25 11:24 Dose: 3 mg Documented By: BING Morphine Sulfate (Morphine Sulfate 4 Mg/Ml 1 Ml Carp\Vial) 3 mg IV NOW STA Stop: 09/09/25 13:41 Last Admin: 09/09/25 13:48 Dose: 3 mg Documented By: BING Ondansetron HCl (Ondansetron Inj 2 Mg/Ml 2 Ml Vial) 4 mg IV NOW STA Stop: 09/09/25 11:07 Last Admin: 09/09/25 11:23 Dose: 4 mg Documented By: BING Imaging Data Radiologist's Impression: Abdomen/Pelvis CT 09/09/25 11:[address] WITHOUT CONTRAST CT DOSE: 515.7 mGy.cm HISTORY: r flank pain TECHNIQUE: Multiaxial CT images of the abdomen and pelvis were performed without contrast. A dose lowering technique was utilized adhering to the principles of ALARA. COMPARISON STUDY: 04/27/2025 FINDINGS: There is emphysema in the visualized lung bases. ABDOMEN: Gallbladder is surgically absent. There are splenic calcifications consistent with prior granulomatous disease. Otherwise the liver, spleen, pancreas, and right adrenal gland have an unremarkable noncontrast appearance. There is a stable 1.5 cm nodule at the left adrenal gland with Hounsfield density of -6, consistent with adrenal adenoma. There are diffuse atherosclerotic calcifications. Infrarenal abdominal aortic aneurysm measures 4.4 cm greatest AP diameter, stable. The kidneys show no hydronephrosis bilaterally. There are a few renal calcifications, some of which may be vascular. No ureteral calculi. Pelvis: Urinary bladder is decompressed. Uterus is absent. No adnexal mass. There is mild colonic diverticulosis. No acute diverticulitis. No bowel inflammation or obstruction seen. No free fluid, free air, or abscess. No enlarged adenopathy. Osseous structures: There is osteopenia. There is a stable 2.5 cm area of dense patchy sclerosis at the proximal right femur. Stable mild scoliosis. Stable mild degenerative changes at the spine and hips. Stable grade 1 anterolisthesis of L4 on 5 and L5 on S1. There is an interval mild vertebral body compression fracture at the T12 vertebral body. There are subacute nondisplaced fractures anteriorly at the left eighth and 9 ribs. No other acute osseous findings. IMPRESSION: 1. Interval mild vertebral body compression fracture at T12. Interval acute to subacute fractures at the left eighth and ninth ribs. 2. No other acute findings seen. Otherwise as described. ACT 112: Negative or not required by law. The above report was generated using voice recognition software. It may contain grammatical, syntax or spelling errors. Electronically signed by: Anthony Quiroz M.D. 09/09/2025 12:21 PM Chest X-Ray 09/09/25 11:09 XR chest 1V portable CLINICAL HISTORY: cough COMPARISON STUDY: 04/27/2025 FINDINGS: Heart size and pulmonary vasculature are normal. Stable lucent lungs suggesting emphysema. There is interval mild reticular opacity at the left base. No other consolidation or pleural effusion seen. No pneumothorax. IMPRESSION: Possible early pneumonia left lung base. ACT 112: Negative or not required by law. Electronically signed by: Anthony Quiroz M.D. 09/09/2025 11:33 AM Discharge Plan Visit Data Chief Complaint: Back Injury/Pain Stated Complaint: BACK PAIN ED Provider: Elliot Loja Discharge Problem: Back pain, Fracture of thoracic spine, Anemia Condition: Fair Forms Stand Alone Forms: [facility] [place] [employer] Prescriptions Prescriptions: No Action (DME) OneTouch Verio test strips Strip See Rx Instructions .ROUTE .MEDSUPPLY Qty: 50 3RF Rx Instructions: test blood sugar 1-2 times per day Eliquis 5 mg tablet 5 mg PO BID Hold Instructions: Resume on 05/31/24. Until seen by PCP Annmarie Aerosphere 160-9-4.8 mcg/actuation Hfa Aerosol Inhaler 2 inh INHALATION BID sennosides-docusate sodium [Senokot-S] 8.6-50 mg Tablet 1 tab PO QAM Qty: 30 0RF polyethylene glycol 3350 [Miralax] 17 gram Powder In Packet 17 g PO DAILY Qty: 30 0RF insulin lispro [Humalog KwikPen Insulin] 100 unit/mL insulin pen 5 unit SUBCUT TID Qty: 15 0RF Rx Instructions: before meals insulin glargine 100 unit/mL (3 mL) insulin pen 15 unit SUBCUT QAM Qty: 3 0RF guaifenesin [Mucinex] 600 mg tablet extended release 12hr 1,200 mg PO Q12 Qty: 60 0RF ipratropium-albuterol 0.5 mg-3 mg(2.5 mg base)/3 mL solution for nebulization 3 ml inhalation Q4H PRN (Reason: shortness of breath) Qty: 90 0RF aspirin [Uri Low Dose Aspirin] 81 mg Tablet,Delayed Release (Dr/Ec) 81 mg PO QAM Qty: 30 0RF cyanocobalamin (vitamin B-12) 500 mcg Tablet 1,000 mcg PO QAM Qty: 60 0RF metformin 1,000 mg tablet 1,000 mg PO BID Qty: 60 0RF folic acid 1 mg tablet 1 mg PO QAM Qty: 30 0RF albuterol sulfate [Ventolin HFA] 90 mcg/actuation HFA aerosol inhaler 2 puff INHALATION Q6 PRN (Reason: Shortness Of Breath Or Wheezing) Qty: 8.5 0RF rosuvastatin 20 mg tablet 20 mg PO QAM Qty: 30 0RF fluticasone furoate-vilanterol [Breo Ellipta] 100-25 mcg/dose blister with device 1 inh INHALATION DAILY Qty: 60 0RF Incruse Ellipta 62.5 mcg/actuation Blister With Device 1 inh INHALATION DAILY Qty: 30 0RF metoprolol tartrate 50 mg tablet 50 mg PO BID pantoprazole 40 mg tablet,delayed release (DR/EC) 40 mg PO QAM furosemide 20 mg tablet 20 mg PO DAILY oxycodone 5 mg tablet 5 mg PO TID PRN (Reason: Pain) Referrals Referrals: Rosi Borges CRNP [Outside Practitioners] - Discharge Problem: Back pain Qualifiers: Back pain location: thoracic back pain Chronicity: acute Back pain laterality: unspecified Qualified Code(s): M54.6 - Pain in thoracic spine Fracture of thoracic spine Qualifiers: Encounter type: initial encounter Thoracic vertebra fracture level: T12 F racture type: closed Fracture morphology: unspecified fracture morphology Q ualified Code(s): S22.089A - Unspecified fracture of T11-T12 vertebra, initial encounter for closed fracture Anemia Qualifiers: Anemia type: unspecified type Qualified Code(s): D64.9 - Anemia, unspecified
[2025-09-09] MEDS: ALBUT/IPRATROP 3MG/0.5MG NEB 3 ML VIAL NEB STA (11:23)
[2025-09-09] MEDS: ONDANSETRON INJ 2 MG/ML 2 ML VIAL IV STA (11:23)
[2025-09-09] MEDS: SODIUM CHLORIDE 0.9% 1,000 ML IV ONE (11:24)
[2025-09-09] MEDS: MoRPHine SULFATE 4 MG/ML 1 ML CARP\\VIAL IV STA ×2 (11:24→13:48)
--- NOTE | 2025-09-09 11:34 | XRay Report ---
XR chest 1V portable CLINICAL HISTORY: cough COMPARISON STUDY: 04/27/2025 FINDINGS: Heart size and pulmonary vasculature are normal. Stable lucent lungs suggesting emphysema. There is interval mild reticular opacity at the left base. No other consolidation or pleural effusion seen. No pneumothorax. IMPRESSION: Possible early pneumonia left lung base. ACT 112: Negative or not required by law. Electronically signed by: Anthony Quiroz M.D. 09/09/2025 11:33 AM
[2025-09-09 11:38] LABS: Hematocrit (blood only) 36.7 % (37.0-47.0); Hemoglobin 11.0 g/dl (12.0-16.0); Mean Corpuscular Hemoglobin 28.2 pg (25.0-34.0); Mean Corpuscular Volume 94.1 fL (80.0-100.0); Platelet Count 366 K/uL (130-400); RDW Standard Deviation 58.4 fL (36.4-46.3); Red Blood Count 3.90 M/uL (4.20-5.40); White Blood Count 13.23 K/ul (4.8-10.8)
[2025-09-09 11:54] LABS: Alanine Aminotransferase 42.0 U/L (7-52); Albumin Globulin Ratio 1.3 (0.9-2); Albumin Level 3.6 gm/dl (3.4-5.0); Alkaline Phosphatase 137.0 U/L (34-104); Anion Gap 10.0 (3-11); Bilirubin,Total 0.3 mg/dl (0.2-1.0); Blood Urea Nitrogen 25.0 mg/dl (6-23); Calcium 8.7 mg/dl (8.6-10.3); Carbon Dioxide 26.0 mmol/L (21-32); Chloride 102.0 mmol/L (98-107); Creatinine Clr Calc Pharmacy 32.4 ml/min; Globulin 2.7 gm/dl (2.5-4.0); Glucose 253.0 mg/dl (70-99(Fasting)); Lipase 13.0 U/L (11-82); Potassium 4.4 mmol/L (3.5-5.1); Sodium 138.0 mmol/L (136-145); Total Protein 6.3 gm/dl (6.0-8.3)
[2025-09-09 11:55] LABS: Appearance Urine Clear (Clear); Bacteria Urine Automated None Seen (None Seen); Cast Urine Automated 0-2 /lpf (0-2); Epithelial Cell Urine Auto 0-2 /hpf (0-2); Glucose Urine UA Negative (Negative); RBC Urine Automated 0-2 /hpf (0-2); WBC Urine Automated 0-5 /hpf (0-5)
[2025-09-09 12:24] LABS: Immature Granulocytes # (auto) 0.10 K/uL (0.01-0.20); Immature Granulocytes % (auto) 0.8 %
--- NOTE | 2025-09-09 12:24 | CT Scan Report ---
ABDOMEN AND PELVIS CT WITHOUT CONTRAST CT DOSE: 515.7 mGy.cm HISTORY: r flank pain TECHNIQUE: Multiaxial CT images of the abdomen and pelvis were performed without contrast. A dose lo wering technique was utilized adhering to the principles of ALARA. COMPARISON STUDY: 04/27/2025 FINDINGS: There is emphysema in the visualized lung bases. ABDOMEN: Gallbladder is surgically absent. There are splenic calcifications consistent with prior gra nulomatous disease. Otherwise the liver, spleen, pancreas, and right adrenal gland have an unremarkab le noncontrast appearance. There is a stable 1.5 cm nodule at the left adrenal gland with Hounsfield density of -6, consistent with adrenal adenoma. There are diffuse atherosclerotic calcifications. Inf rarenal abdominal aortic aneurysm measures 4.4 cm greatest AP diameter, stable. The kidneys show no h ydronephrosis bilaterally. There are a few renal calcifications, some of which may be vascular. No ur eteral calculi. Pelvis: Urinary bladder is decompressed. Uterus is absent. No adnexal mass. There is mild colonic div erticulosis. No acute diverticulitis. No bowel inflammation or obstruction seen. No free fluid, free air, or abscess. No enlarged adenopathy. Osseous structures: There is osteopenia. There is a stable 2.5 cm area of dense patchy sclerosis at t he proximal right femur. Stable mild scoliosis. Stable mild degenerative changes at the spine and hip s. Stable grade 1 anterolisthesis of L4 on 5 and L5 on S1. There is an interval mild vertebral body c ompression fracture at the T12 vertebral body. There are subacute nondisplaced fractures anteriorly a t the left eighth and 9 ribs. No other acute osseous findings. IMPRESSION: 1. Interval mild vertebral body compression fracture at T12. Interval acute to subacute fractures at the left eighth and ninth ribs. 2. No other acute findings seen. Otherwise as described. ACT 112: Negative or not required by law. The above report was generated using voice recognition software. It may contain grammatical, syntax o r spelling errors. Electronically signed by: Anthony Quiroz M.D. 09/09/2025 12:21 PM
--- NOTE | 2025-09-09 17:03 | History & Physical Report ---
"Date of Service September 09, 2025 Assessment & Plan (1) T12 compression fracture: (2) Paroxysmal A-fib: (3) Leukocytosis: (4) COPD (chronic obstructive pulmonary disease): Plan Patient is a 75-year-old female that presented to [facility] emergency department with complaints of right sided lumbar pain that started 2 days prior to her arrival. she sustained a fall 3 weeks ago and was hospitalized at [facility]. She states she did strike her h ead at that time and sustained a laceration to the right forehead. She has had back pain since then with worsening symptoms over the past few days with associated radiculopathy, lower leg weakness she states is not new, and one episode of urinary incontinence two days ago. CTAP in ED revealed T12 compression fracture with interval acute to subacute fractures at the left 8th/9th ribs. She denies pain in the left lower chest wall area. ED course revealed leukocytosis at 13.23 with no reported hx of recent fever. Chest x-ray with possible early pneumonia left lung base, Procal 29.10. BMP with Cr at 1.28>she did receive 1 liter NSS in ED. Electrolytes normal. UA negative. ##T12 compression fracture/acute to subacute fractures of left 8th/9th rib: CTAP with interval mild vertebral body compression fracture at T12, interval acute to subacute fractures at the left eighth and ninth ribs -admit to med surg -pain control modalities with routine Tylenol/PRN Morphine -Thoracic/Lumbar MRI -Surgical Spine consult -PT/OT consult ##Paroxysmal Atrial Fibrillation|HFpEF-TTE 11/23/23 with LVEF 65-70% -EKG with NSR -on home AC with Eliquis -rate control with Metoprolol -hold Lasix for now and evaluate Cr in am ##Leukocytosis -Chest xray with possible early pneumonia left lung base -procal 29.10 -UA neg -MRSA nasal swab -collect sputum culture -Cefepime 2grams IV Q8 ##COPD|sleep apnea -cont oxygen via nasal cannula as at home (continuos at 4LPM) -BIPAP at HS -routine inhalers at home, Incruse Ellipta/Breo Ellipta -Duonebs prn Dispo: Admit to med/surg DVT Proph: on home Eliquis Patient is a FULL CODE History of Present Illness Chief Complaint: Right-sided lower back pain Primary Care Provider: MITCHELL Brewer is a 75 year old female with past medical history significant for paroxysmal atrial fibrillation on long-term Eliquis, HFpEF, current smoker, hypertension, mesenteric artery stenosis, chronic respiratory failure with hypercarbia and hypoxemia, DM2, COPD, GERD, HLD and AAA at 4.5cm that presented to [facility] emergency department today via EMS with complaints of right sided back pain. She reports she was at [facility] 3 weeks ago secondary to a ground-level fall at home and she was subsequently transferred to [facility] for further workup. At that time she states she was ambulating with her walker and lost her footing subsequently falling down onto the left side of her head sustaining a laceration that required suturing with complaints of back pain. She is unclear what her discharge diagnosis was in [place], however she states she was hospitalized for approximately 3 to 4 days. Over the course of the past few days she has had right sided lumbar pain that has worsened in nature and reproducible with movement. She has been taking Tylenol at home with no improvement. Reports associated radiculopathy in bilateral and lower legs with an episode of urinary incontinence 2 days ago. She states when she stood up she lost control of her bladder. Reports this does happen at times if her bladder is full she cannot get to the bathroom in time. She denies bowel incontinence. Overall her lower legs feel weak and she needs to use a walker at all times to ambulate when at home. She denies current [place], chest pain, visual changes, neck pain, chest pain, SOB, unilateral weakness of upper/lower extremities, slurred speech, ataxia, fever, chills, [place], dysuria, urinary frequency or new productive cough. Endorses she does have intermittent, productive cough which is baseline for her d/t hx of chronic smoking and COPD. She does smoke approximately 7 cigarettes daily>offered nicotine cessation for hospitalization and declines. Denies ETOH use. Will try to secure records from [facility]. Allergies Allergy/AdvReac Type Severity Reaction Status Date / Time diflunisal AdvReac Intermediate HEART RACES Verified 09/09/25 17:31 Home Medications Medication Instructions Recorded Confirmed Type blood sugar diagnostic (MusicIPuch #50 ea 06/02/21 04/26/25 Rx Verio test strips) apixaban 5 mg tablet (Eliquis) 5 mg PO BID 04/30/24 09/09/25 History budesonide 160 mcg-glycopyr 9 2 inh inhalation BID 05/23/24 09/09/25 History mcg-formot 4.8 mcg/actuation HFA inhaler (Breztri Aerosphere) guaifenesin 600 mg tablet, 1,200 mg (2 x 600 mg) PO Q12 12/24/24 09/09/25 Rx extended release 12 hr (Mucinex) Congestion #60 tabs insulin glargine 100 unit/mL (3 15 unit (0.15 mL) subcut QAM #3 mL 12/24/24 09/09/25 Rx mL) subcutaneous pen insulin lispro 100 unit/mL 5 unit (0.05 mL) subcut TID #15 mL 12/24/24 09/09/25 Rx subcutaneous pen (Humalog KwikPen (U-100) Insulin) polyethylene glycol 3350 17 gram 17 g PO DAILY #30 ea 12/24/24 09/09/25 Rx oral powder packet (Miralax) sennosides 8.6 mg-docusate sodium 1 tab PO QAM #30 tabs 12/24/24 09/09/25 Rx 50 mg tablet (Senokot-S) albuterol sulfate 90 mcg/actuation 2 puff inhalation Q6 PRN Shortness 12/27/24 09/09/25 Rx aerosol inhaler (Ventolin HFA) Of Breath Or Wheezing #8.5 grams aspirin 81 mg tablet,delayed 81 mg PO QAM #30 tabs 12/27/24 09/09/25 Rx release (Uri Low Dose Aspirin) cyanocobalamin (vitamin B-12) 500 1,000 mcg (2 x 500 mcg) PO QAM #60 12/27/24 09/09/25 Rx mcg tablet tabs fluticasone furoate 100 1 inh inhalation DAILY #60 ea 12/27/24 09/09/25 Rx mcg-vilanterol 25 mcg/dose inhalation powder (Breo Ellipta) folic acid 1 mg tablet 1 mg PO QAM #30 tabs 12/27/24 09/09/25 Rx ipratropium 0.5 mg-albuterol 3 mg 3 ml inhalation Q4H PRN shortness 12/27/24 09/09/25 Rx (2.5 mg base)/3 mL nebulization of breath #90 mL soln metformin 1,000 mg tablet 1,000 mg PO BID #60 tabs 12/27/24 09/09/25 Rx rosuvastatin 20 mg tablet 20 mg PO QAM #30 tabs 12/27/24 09/09/25 Rx umeclidinium 62.5 mcg/actuation 1 inh inhalation DAILY #30 ea 12/27/24 09/09/25 Rx blister powder for inhalation (Incruse Ellipta) furosemide 20 mg tablet 20 mg PO DAILY Edema 04/26/25 09/09/25 History metoprolol tartrate 50 mg tablet 50 mg PO BID 04/26/25 09/09/25 History pantoprazole 40 mg tablet,delayed 40 mg PO QAM 04/26/25 09/09/25 History release oxycodone 5 mg tablet 5 mg PO TID PRN Pain 04/27/25 09/09/25 History Past Med/Surg History Problem List (Updated 09/09/25 @ 17:58 by BRET Rocha) Leukocytosis Paroxysmal A-fib T12 compression fracture Anemia (Acute) Fracture of thoracic spine (Acute) Back pain (Acute) Hyperkalemia Diarrhea TATY (acute kidney injury) (Acute) CHF (congestive heart failure) (Acute) Change in mental state (Acute) Acute and chronic respiratory failure with hypoxia (Acute) Sepsis (Acute) Chronic pain Type 2 diabetes mellitus Cognitive changes Left lower lobe consolidation Elevated LFTs Weakness (Acute) Hypokalemia (Acute) Symptomatic anemia (Acute) Acute GI bleeding (Acute) Tobacco abuse Acute on chronic respiratory failure with hypoxia Left lower lobe pneumonia CHF (congestive heart failure) (Acute) Acute UTI (urinary tract infection) (Acute) Pleural effusion (Acute) Shortness of breath (Acute) Abdominal pain (Acute) Acute hypoxemic respiratory failure (Acute) Hypomagnesemia (Acute) COPD with acute exacerbation (Acute) Pleural effusion (Acute) CHF (congestive heart failure) (Acute) Ambulatory dysfunction Pneumonia (Acute) Acute respiratory distress (Acute) Altered mental status (Acute) Tachycardia (Acute) Hypomagnesemia (Acute) Metabolic encephalopathy Hyperglycemia Acute exacerbation of chronic obstructive pulmonary disease (Acute) Hypoxia (Acute) Afib COPD, very severe Weakness generalized Atrial fibrillation with rapid ventricular response (Acute) Dilated pancreatic duct Positive blood culture Abdominal pain Abdominal pain Lower extremity edema Respiratory distress (Acute) Hypertension (Acute) COPD exacerbation (Acute) Respiratory acidosis (Acute) Elevated lactic acid level (Acute) Tachycardia (Acute) Hypomagnesemia (Acute) Acute bronchitis with chronic obstructive pulmonary disease (COPD) SOB (shortness of breath) (Acute) Anemia (Acute) Chest tightness (Acute) UTI (urinary tract infection) Chronic pain syndrome SOB (shortness of breath) (Acute) COPD exacerbation (Acute) Dizziness (Acute) Acute UTI (Acute) Hypomagnesemia (Acute) Anemia B12 deficiency COPD exacerbation (Acute) Hyperlipidemia Dysphagia Chronic kidney disease HTN (hypertension) Thrombocythemia Chronic low back pain (Chronic) Diaphragmatic hernia (Chronic 10/31/11) Overweight (BMI 25.0-29.9) (Chronic) AAA (abdominal aortic aneurysm) Left peroneal nerve palsy (Chronic) History of knee replacement (Acute) Knee pain, left (Acute) Right knee pain (Acute) Diabetes type 2, uncontrolled (Acute) COPD (chronic obstructive pulmonary disease) (Acute) Medical History (Updated 09/09/25 @ 17:58 by BRET Rocha) Acute blood loss anemia Hospital-acquired pneumonia Aspiration pneumonia Current smoker Anemia Sepsis Acute confusion Severe muscle deconditioning COPD exacerbation Respiratory failure Acute hypercapnic respiratory failure TATY (acute kidney injury) AMS (altered mental status) Syncope Acute UTI Acute hypotension Chronic kidney disease, stage 3a Acute kidney injury Acute exacerbation of chronic low back pain Candidiasis of mouth and esophagus DVT prophylaxis Diabetes mellitus COPD (chronic obstructive pulmonary disease) Hypertension Hyperlipidemia Acute on chronic respiratory failure with hypoxia and hypercapnia Family History Other Family history non-contributory Social History Smoking Status: Current every day smoker Tobacco Type: Cigarettes Age Started Using Tobacco: 32; Cigarettes Per Day: 10; Second Hand Exposure: Yes; Do You Dip or Chew Tobacco: No; Hx Alcohol Use: No Hx Substance Use: No Preferred Language: Ukrainian Communication Ability: Effective Slot Floor Supervisor Required: No Beliefs That Will Affect Care: None marital status: Current Living Situation: Spouse Current Living Situation Comment: with [facility] How many Children do You have: 3 Feels Safe at Home: Yes Assistive Devices: Cane Review of Systems Review of Systems: All systems reviewed & are unremarkable except as noted in Subjective Physical Exam Physical Exam: GENERAL APPEARANCE: A&O. Lying comfortably in stretcher. NAD. SKIN: Normal color without rashes or lesions. Normal turgor. HEENT: Head AT/NC. Buccal mucosa is moist and pink. NECK: No jugular venous distention. No thyroid enlargement. There is no lymphadenopathy. HEART: RRR without m/g/r LUNGS: Normal inspiratory effort. CTA without w/r/r. Diminished in bases. ABDOMEN: No guarding or rigidity. Normoactive BS in all four quadrants. Abdomen soft and NT. MSK: No bony gross/deformities throughout. ROM intact. TTP to right paraspinal muscles, mid thoracic and lumbar area. EXTREMITIES: No edema, No peripheral cyanosis. 3/5 motor strength to BL lower legs. +dorsiflexion/plantar flexion of bilateral feet. Sensation intact to bilateral lower legs/feet. Neuro: CN 2-12 grossly intact. No focal neuro deficits PSYCHIATRIC: Normal affect. Eye contact is good. Speech is normal rate and content. Responses are appropriate. Results & Data Results & Data Vital Signs (Past 12 Hours) Vital Signs Pulse Resp BP Pulse Ox O2 Del Method O2 Flow Rate 09/09/25 16:42 77 19 98 09/09/25 16:36 77 28 H 98 09/09/25 16:30 138/72 09/09/25 16:30 138/72 09/09/25 16:24 83 28 H 97 09/09/25 16:21 79 29 H 97 09/09/25 16:12 85 20 97 09/09/25 16:09 23 97 09/09/25 15:51 21 98 09/09/25 15:42 77 29 H 98 09/09/25 15:36 78 25 H 98 09/09/25 15:30 119/61 09/09/25 15:30 119/61 09/09/25 15:24 23 99 09/09/25 15:21 29 H 99 09/09/25 15:15 86 22 99 09/09/25 15:00 86 23 97 09/09/25 15:00 144/71 H 09/09/25 15:00 144/71 H 09/09/25 14:54 90 16 97 09/09/25 14:48 89 20 97 09/09/25 14:30 133/59 L 09/09/25 14:30 89 26 H 99 09/09/25 14:21 127/57 L 09/09/25 14:21 127/57 L 09/09/25 14:21 127/57 L 09/09/25 14:21 77 31 H 09/09/25 14:09 86 23 98 09/09/25 13:54 82 29 H 99 09/09/25 13:42 83 31 H 98 09/09/25 13:30 80 22 141/59 H 99 Nasal Cannula 4 09/09/25 13:00 84 24 122/58 L 99 Nasal Cannula 4 09/09/25 12:30 79 24 137/65 98 Nasal Cannula 4 09/09/25 12:17 79 21 96 Nasal Cannula 4 09/09/25 11:30 82 22 146/66 H 100 Nasal Cannula 4 09/09/25 11:11 88 09/09/25 11:07 89 16 165/78 H 100 Nasal Cannula 4 09/09/25 11:06 84 21 165/78 H 98 Nasal Cannula 4 Laboratory Results Labs reviewed: CBC, CMP, urinalysis Code Status & VTE Plan Code Status Patient verbally states she is a FULL CODE VTE Prophylaxis Plan VTE Prophylaxis will be ordered: No Reason for no VTE drug order: Contraindicated PG Care Time/CCT Total # of Minutes Spent Total Time Spent with Patient: Total time spent is greater than 50% in coordination of care (as documented) at patient's floor/unit and/or counseling patient: Coding Level of Care Code 22567 INT INP/OBS CARE 3/75MIN Diagnoses T12 compression fracture S22.080A Paroxysmal A-fib I48.0 Leukocytosis D72.829 COPD (chronic obstructive pulmonary disease) J44.9 COPD type: unspecified COPD (4) COPD (chronic obstructive pulmonary disease) COPD type: unspecified COPD Qualified Code(s): J44.9 - Chronic obstructive pulmonary disease, unspecified"
[2025-09-09] MEDS ORDERED: DEXTROSE 50% 50 ML SYRINGE IV PRN (17:17)
[2025-09-09] MEDS ORDERED: GLUCOSE 10 TAB/TUBE PO PRN (17:17)
[2025-09-09] MEDS ORDERED: CARBOHYDRATES FOR HYPOGLYCEMIA PO PRN (17:17)
[2025-09-09] MEDS ORDERED: GLUCOSE 40% GEL 15 GM TUBE PO PRN (17:17)
[2025-09-09] MEDS ORDERED: PHARMACY GLYCEMIC MGMT CONSULT PRN (17:17)
[2025-09-09] MEDS ORDERED: GLUCAGON FOR INJ 1 MG VIAL SQ PRN (17:17)
[2025-09-09] MEDS ORDERED: ONDANSETRON INJ 2 MG/ML 2 ML VIAL IV PRN (19:02)
[2025-09-09] MEDS ORDERED: MELATONIN 3 MG TAB PO PRN (19:02)
[2025-09-09] MEDS ORDERED: POLYETHYLENE (MIRALAX) 17 GM PACK PO PRN (19:02)
--- NOTE | 2025-09-09 19:07 | Magnetic Resonance Report ---
Exam: MR thoracic spine without intravenous contrast. History: Bilateral leg weakness and urinary incontinence. Comparison:None. Technique: Routine multiplanar multisequence MR images of the thoracic spine without contrast were obtained and reviewed. Findings: Marrow signal demonstrates decreased T1 and increased fluid-sensitive signal involving the superior endplates of T10 and T12. Approximately 10% vertebral body height loss. No discrete fracture lines. Portions of the exam limited secondary to patient motion. No additional marrow signal abnormality. Mild diffuse upper thoracic spine kyphosis is noted. Vertebral body heights are otherwise fairly well-maintained. Intervertebral discs demonstrate mild multilevel disc desiccation. No significant spinal canal or foraminal stenoses. Thoracic cord demonstrates normal signal and volume throughout the exam. Again portions of the exam limited secondary to motion. Included chest structures and upper abdomen demonstrate likely right renal cysts. Nodular focus in the region of the left adrenal gland is noted. This may be vascular in origin. Detail is limited due to motion. Approximately 3.8 cm diameter abdominal aortic aneurysm. Prominent included common duct. Localizing images demonstrate mild stepwise anterolisthesis lumbar spine with at least mild spinal canal and foraminal stenoses. 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 Further characterization limited. Degenerative changes cervical spine without appreciable significant spinal canal stenosis at this level. Nonspecific white matter changes noted. Suspect sequela from chronic microvascular disease. Impression: 1. Marrow signal changes superior endplates of T10 and T12 likely representing at least subacute endplate compression fracture deformities with approximately 10% vertebral body height loss. No discrete mass. Question demineralization etiology. Correlate with clinical data. CT may be of benefit. 2. Otherwise no findings to indicate source of patient's symptoms. Limited localizer findings are noted above. Please see above for details. Electronically signed by Walter Hernandez 09-09-2025 7:07 PM
[2025-09-09] MEDS: INSULIN ASPART PER UNIT CHARGE SC SCH ×2 (19:32→20:15)
--- NOTE | 2025-09-09 19:46 | Magnetic Resonance Report ---
MRI [facility] SPINE WITHOUT CONTRAST TECHNIQUE: An MRI examination of the cervical spine was performed. The examination consists of sagittal T1-weighted, inversion recovery and T2 weighted images as well as axial T1-weighted, T2-weighted and gradient echo images. INDICATION: Back pain COMPARISON: Lumbar spine radiograph November 25, 2023 FINDINGS: There is a compression fracture along the superior endplate of T12 vertebral body resulting in approximately 10% vertebral body height loss without significant retropulsion. Marrow edema signal is present along the superior endplate indicating acute/subacute nature to this fracture. No significant spondylolisthesis. Bone marrow signal is otherwise unremarkable. The conus terminates at L1. There is an infrarenal abdominal aortic aneurysm measuring up to 4.2 cm in caliber. There are multilevel degenerative changes to the lumbar spine as below: L1-2: Broad-based disc bulge, bilateral facet hypertrophy and thickening of the ligamentum flavum. Mild right neural foraminal narrowing. The spinal canal and left neural foramen are preserved. L2-3: Broad-based disc bulge, bilateral facet hypertrophy and thickening of the ligamentum flavum. No significant spinal canal or neural foraminal narrowing. L3-4: Broad-based disc bulge, bilateral facet hypertrophy and thickening of the ligamentum flavum resulting in mild spinal canal narrowing and moderate bilateral neural foraminal narrowing. The right exiting nerve is impinged extraforaminally. L4-5: Broad-based disc bulge, bilateral facet hypertrophy and thickening of the ligamentum flavum resulting in severe tricompartmental spinal canal stenosis with the traversing nerve roots are impinged bilaterally. Moderate to severe narrowing of the right and moderate narrowing of the left neural foramina. The right neural foramen is impinged extraforaminally. L5-S1: Broad-based disc bulge, bilateral facet hypertrophy and thickening of the ligamentum flavum severe right and moderate left neural foraminal narrowing. The right neuroforamen is impinged at the neuroforamen. Large Tarlov cyst is seen in the left S1-2 neural foramen. IMPRESSION: Acute/subacute compression fracture of T12 vertebral body along its superior endplate without significant retropulsion Acvanced degenerative changes of the lumbar spine as detailed above, worst at L4-5. Infrarenal abdominal aortic aneurysm measuring up to 4.2 cm in caliber. ACT 112: Positive. There are findings on this exam that require communication between the performing entity and the patient following Patient Test Result Information Act ([place] ACT 112) guidelines Electronically signed by Sorin Bruce 09-09-2025 7:46 PM
[2025-09-09] MEDS: MoRPHine SULFATE 2 MG/ML CARP IV PRN (19:54)
[2025-09-09] MEDS: ACETAMINOPHEN 500 MG TAB PO SCH (20:17)
[2025-09-09] MEDS: CEFEPIME 2000MG 2,000 MG/20 ML SYR IV SCH (21:23)
[2025-09-09] MEDS: METOPROLOL TARTRATE 50 MG TAB PO SCH (21:24)
[2025-09-09] MEDS: APIXABAN 5 MG TABLET PO SCH (21:24)
[2025-09-09] MEDS: ALBUT/IPRATROP 3MG/0.5MG NEB 3 ML VIAL NEB PRN (21:31)
[2025-09-10] MEDS: MoRPHine SULFATE 4 MG/ML 1 ML CARP\\VIAL IV PRN ×2 (00:10→10:26)
[2025-09-10] MEDS: MoRPHine SULFATE 4 MG/ML 1 ML CARP\\VIAL IV STA (03:17)
[2025-09-10 07:39] VITALS: BP 147/71; PULSE 66; RESP 18; TEMP 98.2; O2SAT 98
[2025-09-10] MEDS: FLUTICASONE/VILANTEROL 100/25MCG 14 PUFFS/INHALER INH SCH (08:27)
[2025-09-10] MEDS: ASPIRIN 81 MG ECTAB PO SCH (08:27)
[2025-09-10] MEDS: UMECLIDINIUM BROMIDE 62.5MCG/BLISTER 7 PUFFS/INHALER INH SCH (08:28)
[2025-09-10 08:36] LABS: Hematocrit (blood only) 34.2 % (37.0-47.0); Hemoglobin 9.9 g/dl (12.0-16.0); Immature Granulocytes # (auto) 0.08 K/uL (0.01-0.20); Immature Granulocytes % (auto) 1.2 %; Mean Corpuscular Hemoglobin 28.0 pg (25.0-34.0); Mean Corpuscular Volume 96.9 fL (80.0-100.0); Platelet Count 299 K/uL (130-400); RDW Standard Deviation 59.2 fL (36.4-46.3); Red Blood Count 3.53 M/uL (4.20-5.40); White Blood Count 6.84 K/ul (4.8-10.8)
[2025-09-10 08:55] LABS: Anion Gap 5.0 (3-11); Blood Urea Nitrogen 37.0 mg/dl (6-23); Calcium 8.0 mg/dl (8.6-10.3); Carbon Dioxide 28.0 mmol/L (21-32); Chloride 106.0 mmol/L (98-107); Creatinine Clr Calc Pharmacy 25.9 ml/min; Glucose 161.0 mg/dl (70-99(Fasting)); Potassium 4.9 mmol/L (3.5-5.1); Sodium 139.0 mmol/L (136-145)
[2025-09-10 09:04] LABS: Hemoglobin A1C 8.7 % (4.5-5.6)
[2025-09-10] MEDS: LANTUS PER UNIT CHARGE SC SCH (09:21)
--- NOTE | 2025-09-10 09:36 | Pharmacy Report ---
Pharmacy Glycemic Short Note 2 - Date of Service September 10, 2025 - Glycemic Short BSG Results (Last 24 hours): 09/09/25 09/09/25 09/09/25 11:18 11:20 20:00 Glucose 253 H POC Glucose 248 H 207 H 09/09/25 09/10/25 09/10/25 22:43 07:32 07:46 Glucose 161 H POC Glucose 203 H 280 H OUTPATIENT ANTIDIABETIC REGIMEN: * Lantus 15 units SC AM * Humalog 5 units TID with meals * Metformin 1g PO BID * A1c 7.6% 04/29/25 ASSESSMENT: * 75 YO F admitted with T12 compression fracture/acute to subacute fractures of left 8th/9th rib, CAP on Cefepime/Doxy, type 2 DM, hyperglycemic, will begin basal bolus insulin and titrate to goal blood sugar. PLAN FOR INPATIENT GLYCEMIC CONTROL: * Hold outpatient oral diabetes medications * Basal insulin * Lantus 15 units SQ daily * Bolus insulin * NovoLog per scale ACHS or Q6hrs while NPO * Goal Range: Low 110 mg/dL - High 140 mg/dL * Correction Factor: 30 mg/dL/unit * Nutritional / Prandial insulin per carb ratio of 1 unit per 10 grams CHO consumed
[2025-09-10] MEDS: DOXYCYCLINE HYCLATE 100 MG CAP PO SCH (09:51)
[2025-09-10] MEDS: CALCITONIN SALMON NA 200 IU/AC 3.7 ML BTL SCH (10:13)
--- NOTE | 2025-09-10 11:16 | Orthopedic Consultation ---
Date of Service September 10, 2025 History of Present Illness Reason for Consultation: Low back pain, T10 and T12 compression fractures Requesting Physician: . Attending Physician: Darlene Echols MD 75-year-old female that presented to [facility] emergency department with complaints of right sided lumbar pain that started 2 days prior to her arrival. she sustained a fall 3 weeks ago and was hospitalized at [facility]. She states she did strike her head at that time and sustained a laceration to the right forehead. She has had back pain since then with worsening symptoms over the past few days with associated radiculopathy, lower leg weakness she states is not new, and one episode of urinary incontinence two days ago. CTAP in ED revealed T12 compression fracture with interval acute to subacute fractures at the left 8th/9th ribs. She denies pain in the left lower chest wall area. ED course revealed leukocytosis at 13.23 with no reported hx of recent fever. Chest x-ray with possible early pneumonia left lung base, Procal 29.10. BMP with Cr at 1.28>she did receive 1 liter NSS in ED. Electrolytes normal. UA negative. Patient relates that she has had back pain for several weeks since that fall, no new changes recently, no specific treatments. She denies any specific radicular symptoms at this time. Exam reveals patient to indicate pain more in today fracture lumbar region, minimal to palpation. She has intact strength for EHL dorsiflexion plantarflexion ankle dorsiflexion plantarflexion knee flexion extension strength. MR thoracic spine without intravenous contrast. September 09 2025 Findings: Marrow signal demonstrates decreased T1 and increased fluid-sensitive signal involving the superior endplates of T10 and T12. Approximately 10% vertebral body height loss. No discrete fracture lines. Portions of the exam limited secondary to patient motion. No additional marrow signal abnormality. Mild diffuse upper thoracic spine kyphosis is noted. Vertebral body heights are otherwise fairly well-maintained. Intervertebral discs demonstrate mild multilevel disc desiccation. No significant spinal canal or foraminal stenoses. Thoracic cord demonstrates normal signal and volume throughout the exam. Again portions of the exam limited secondary to motion. Included chest structures and upper abdomen demonstrate likely right renal cysts. Nodular focus in the region of the left adrenal gland is noted. This may be vascular in origin. Detail is limited due to motion. Approximately 3.8 cm diameter abdominal aortic aneurysm. Prominent included common duct. Localizing images demonstrate mild stepwise anterolisthesis lumbar spine with at least mild spinal canal and foraminal stenoses. 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 Further characterization limited. Degenerative changes cervical spine without appreciable significant spinal canal stenosis at this level. Nonspecific white matter changes noted. Suspect sequela from chronic microvascular disease. Impression: 1. Marrow signal changes superior endplates of T10 and T12 likely representing at least subacute endplate compression fracture deformities with approximately 10% vertebral body height loss. No discrete mass. Question demineralization etiology. Correlate with clinical data. CT may be of benefit. MRI LUBMAR SPINE WITHOUT CONTRAST September 09, 2025 INDICATION: Back pain COMPARISON: Lumbar spine radiograph November 25, 2023 FINDINGS: There is a compression fracture along the superior endplate of T12 vertebral body resulting in approximately 10% vertebral body height loss without significant retropulsion. Marrow edema signal is present along the superior endplate indicating acute/subacute nature to this fracture. No significant spondylolisthesis. Bone marrow signal is otherwise unremarkable. The conus terminates at L1. There is an infrarenal abdominal aortic aneurysm measuring up to 4.2 cm in caliber. There are multilevel degenerative changes to the lumbar spine as below: L1-2: Broad-based disc bulge, bilateral facet hypertrophy and thickening of the ligamentum flavum. Mild right neural foraminal narrowing. The spinal canal and left neural foramen are preserved. L2-3: Broad-based disc bulge, bilateral facet hypertrophy and thickening of the ligamentum flavum. No significant spinal canal or neural foraminal narrowing. L3-4: Broad-based disc bulge, bilateral facet hypertrophy and thickening of the ligamentum flavum resulting in mild spinal canal narrowing and moderate bilateral neural foraminal narrowing. The right exiting nerve is impinged extraforaminally. L4-5: Broad-based disc bulge, bilateral facet hypertrophy and thickening of the ligamentum flavum resulting in severe tricompartmental spinal canal stenosis with the traversing nerve roots are impinged bilaterally. Moderate to severe narrowing of the right and moderate narrowing of the left neural foramina. The right neural foramen is impinged extraforaminally. L5-S1: Broad-based disc bulge, bilateral facet hypertrophy and thickening of the ligamentum flavum severe right and moderate left neural foraminal narrowing. The right neuroforamen is impinged at the neuroforamen. Large Tarlov cyst is seen in the left S1-2 neural foramen. IMPRESSION: Acute/subacute compression fracture of T12 vertebral body along its superior endplate without significant retropulsion MRI images of the thoracic and lumbar spine were reviewed along with CT scan of the abdomen and pelvis, is my separate interpretation, this reveals degenerative changes in the lumbar spine with some varying degrees of some mild canal stenosis and some foraminal stenosis, compression fractures at T10 and T12 with minimal loss of height superior endplates. Impression: T10 and T12 compression fractures most likely at least several weeks old from previous fall with chronic low back pain. Recommendations: Patient can be mobilized with physical therapy, advised her against any bending lifting twisting type activities, brace could be provided at the hospital for this coming week in the office with the patient to call for appointment and then be fitted with brace for comfort, otherwise mobilize with physical therapy. Allergies Allergy/AdvReac Type Severity Reaction Status Date / Time diflunisal AdvReac Intermediate HEART RACES Verified 09/09/25 17:31 Home Medications Medication Instructions Recorded Confirmed Type blood sugar diagnostic (OneTouch #50 ea 06/02/21 04/26/25 Rx Verio test strips) apixaban 5 mg tablet (Eliquis) 5 mg PO BID 04/30/24 09/09/25 History budesonide 160 mcg-glycopyr 9 2 inh inhalation BID 05/23/24 09/09/25 History mcg-formot 4.8 mcg/actuation HFA inhaler (Breztri Aerosphere) guaifenesin 600 mg tablet, 1,200 mg (2 x 600 mg) PO Q12 12/24/24 09/09/25 Rx extended release 12 hr (Mucinex) Congestion #60 tabs insulin glargine 100 unit/mL (3 15 unit (0.15 mL) subcut QAM #3 mL 12/24/24 09/09/25 Rx mL) subcutaneous pen insulin lispro 100 unit/mL 5 unit (0.05 mL) subcut TID #15 mL 12/24/24 09/09/25 Rx subcutaneous pen (Humalog KwikPen (U-100) Insulin) polyethylene glycol 3350 17 gram 17 g PO DAILY #30 ea 12/24/24 09/09/25 Rx oral powder packet (Miralax) sennosides 8.6 mg-docusate sodium 1 tab PO QAM #30 tabs 12/24/24 09/09/25 Rx 50 mg tablet (Senokot-S) albuterol sulfate 90 mcg/actuation 2 puff inhalation Q6 PRN Shortness 12/27/24 09/09/25 Rx aerosol inhaler (Ventolin HFA) Of Breath Or Wheezing #8.5 grams aspirin 81 mg tablet,delayed 81 mg PO QAM #30 tabs 12/27/24 09/09/25 Rx release (Uri Low Dose Aspirin) cyanocobalamin (vitamin B-12) 500 1,000 mcg (2 x 500 mcg) PO QAM #60 12/27/24 09/09/25 Rx mcg tablet tabs fluticasone furoate 100 1 inh inhalation DAILY #60 ea 12/27/24 09/09/25 Rx mcg-vilanterol 25 mcg/dose inhalation powder (Breo Ellipta) folic acid 1 mg tablet 1 mg PO QAM #30 tabs 12/27/24 09/09/25 Rx ipratropium 0.5 mg-albuterol 3 mg 3 ml inhalation Q4H PRN shortness 12/27/24 09/09/25 Rx (2.5 mg base)/3 mL nebulization of breath #90 mL soln metformin 1,000 mg tablet 1,000 mg PO BID #60 tabs 12/27/24 09/09/25 Rx rosuvastatin 20 mg tablet 20 mg PO QAM #30 tabs 12/27/24 09/09/25 Rx umeclidinium 62.5 mcg/actuation 1 inh inhalation DAILY #30 ea 12/27/24 09/09/25 Rx blister powder for inhalation (Incruse Ellipta) furosemide 20 mg tablet 20 mg PO DAILY Edema 04/26/25 09/09/25 History metoprolol tartrate 50 mg tablet 50 mg PO BID 04/26/25 09/09/25 History pantoprazole 40 mg tablet,delayed 40 mg PO QAM 04/26/25 09/09/25 History release oxycodone 5 mg tablet 5 mg PO TID PRN Pain 04/27/25 09/09/25 History Past Med/Surg History Problem List (Updated 09/09/25 @ 17:58 by Augusta M Urias, RN OBSERVATION) Leukocytosis Paroxysmal A-fib T12 compression fracture Anemia (Acute) Fracture of thoracic spine (Acute) Back pain (Acute) Hyperkalemia Diarrhea TATY (acute kidney injury) (Acute) CHF (congestive heart failure) (Acute) Change in mental state (Acute) Acute and chronic respiratory failure with hypoxia (Acute) Sepsis (Acute) Chronic pain Type 2 diabetes mellitus Cognitive changes Left lower lobe consolidation Elevated LFTs Weakness (Acute) Hypokalemia (Acute) Symptomatic anemia (Acute) Acute GI bleeding (Acute) Tobacco abuse Acute on chronic respiratory failure with hypoxia Left lower lobe pneumonia CHF (congestive heart failure) (Acute) Acute UTI (urinary tract infection) (Acute) Pleural effusion (Acute) Shortness of breath (Acute) Abdominal pain (Acute) Acute hypoxemic respiratory failure (Acute) Hypomagnesemia (Acute) COPD with acute exacerbation (Acute) Pleural effusion (Acute) CHF (congestive heart failure) (Acute) Ambulatory dysfunction Pneumonia (Acute) Acute respiratory distress (Acute) Altered mental status (Acute) Tachycardia (Acute) Hypomagnesemia (Acute) Metabolic encephalopathy Hyperglycemia Acute exacerbation of chronic obstructive pulmonary disease (Acute) Hypoxia (Acute) Afib COPD, very severe Weakness generalized Atrial fibrillation with rapid ventricular response (Acute) Dilated pancreatic duct Positive blood culture Abdominal pain Abdominal pain Lower extremity edema Respiratory distress (Acute) Hypertension (Acute) COPD exacerbation (Acute) Respiratory acidosis (Acute) Elevated lactic acid level (Acute) Tachycardia (Acute) Hypomagnesemia (Acute) Acute bronchitis with chronic obstructive pulmonary disease (COPD) SOB (shortness of breath) (Acute) Anemia (Acute) Chest tightness (Acute) UTI (urinary tract infection) Chronic pain syndrome SOB (shortness of breath) (Acute) COPD exacerbation (Acute) Dizziness (Acute) Acute UTI (Acute) Hypomagnesemia (Acute) Anemia B12 deficiency COPD exacerbation (Acute) Hyperlipidemia Dysphagia Chronic kidney disease HTN (hypertension) Thrombocythemia Chronic low back pain (Chronic) Diaphragmatic hernia (Chronic 10/31/11) Overweight (BMI 25.0-29.9) (Chronic) AAA (abdominal aortic aneurysm) Left peroneal nerve palsy (Chronic) History of knee replacement (Acute) Knee pain, left (Acute) Right knee pain (Acute) Diabetes type 2, uncontrolled (Acute) COPD (chronic obstructive pulmonary disease) (Acute) Medical History (Updated 09/09/25 @ 17:58 by Augusta M Urias, RN OBSERVATION) Acute blood loss anemia Hospital-acquired pneumonia Aspiration pneumonia Current smoker Anemia Sepsis Acute confusion Severe muscle deconditioning COPD exacerbation Respiratory failure Acute hypercapnic respiratory failure TATY (acute kidney injury) AMS (altered mental status) Syncope Acute UTI Acute hypotension Chronic kidney disease, stage 3a Acute kidney injury Acute exacerbation of chronic low back pain Candidiasis of mouth and esophagus DVT prophylaxis Diabetes mellitus COPD (chronic obstructive pulmonary disease) Hypertension Hyperlipidemia Acute on chronic respiratory failure with hypoxia and hypercapnia Family History Other Family history non-contributory Social History Smoking Status: Light tobacco smoker Tobacco Type: Cigarettes Age Started Using Tobacco: 32; Cigarettes Per Day: 10; Second Hand Exposure: Yes; Do You Dip or Chew Tobacco: No; Hx Alcohol Use: No Hx Substance Use: No Preferred Language: French Communication Ability: Effective Ear Machine Operator Required: No Beliefs That Will Affect Care: None marital status: Current Living Situation: Spouse Current Living Situation Comment: with kyrie How many Children do You have: 3 Feels Safe at Home: Yes Safety Concerns: Feels Safe At This Time Assistive Devices: Glasses, Oxygen - Continuous and Walker Review of Systems All systems reviewed & are unremarkable except as noted in HPI & below. Physical Exam . Results & Data Results & Data Laboratory Results . Diagnostic Findings . PG Care Time/CCT Total # of Minutes Spent Total Time Spent with Patient: Total time spent is greater than 50% in coordination of care (as documented) at patient's floor/unit and/or counseling patient: Coding Level of Care Code 18963 IN/OBS CONSULT LVL 3,45M
--- NOTE | 2025-09-10 13:31 | Discharge Summary ---
Discharge Summary Date of Service September 10, 2025 Principal Dx & Hospital Course #1 = Principal Diagnosis (1) Community acquired bilateral lower lobe pneumonia: (2) T12 compression fracture: (3) Paroxysmal A-fib: (4) Leukocytosis: (5) COPD (chronic obstructive pulmonary disease): Plan Patient is a 75-year-old female that presented to emergency department with complaints of right sided lumbar pain that started 2 days prior to her arrival. she sustained a fall 3 weeks ago and was hospitalized at [facility]. She states she did strike her head at that time and sustained a laceration to the right forehead. She has had back pain since then with worsening symptoms over the past few days with associated radiculopathy, lower leg weakness she states is not new, and one episode of urinary incontinence two days ago. CTAP in ED revealed T12 compression fracture with interval acute to subacute fractures at the left 8th/9th ribs. She denies pain in the left lower chest wall area. ED course revealed leukocytosis at 13.23 with no reported hx of recent fever. Chest x-ray with possible early pneumonia left lung base, Procal 29.10. BMP with Cr at 1.28>she did receive 1 liter NSS in ED. Electrolytes normal. UA negative. 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 Padron recommended pain control, weight-bear as tolerated, follow-up in his office this week for placement of a brace -the chest wall is not tender at the site of the rib fractures therefore I think these are chronic - pain is now controlled on scheduled acetaminophen and low-dose oxycodone 5 mg every 4-6 hours as needed reviewed PDMP she has chronically been on oxycodone 10 mg 3 times daily for months, however this was last filled by primary care in June and another physician filled a 1 month supply in July I am not clear on why it was discontinued by her PCP potentially because she had been instructed to follow-up with the pain clinic for ongoing refills, potentially because of frequent falls or from other reasons. At this time she has acute pain from the compression fractures and will need increased medication for least a few weeks, therefore I did send a prescription for about 1 week worth of low-dose oxycodone - she is ambulating at her baseline uses a walker, discharged home will resume home health PT and OT which she already has set up # chronic hypoxic respiratory failure due to COPD, sleep apnea- not in exacerbation -cont oxygen via nasal cannula as at home (continuos at 4LPM) -BIPAP at HS -routine inhalers at home, currently on Trelechristina -Duisidrobs prn #Paroxysmal Atrial Fibrillation|HFpEF-TTE 11/23/23 with LVEF 65-70% -EKG with NSR -on home AC with Eliquis -rate control with Metoprolol continue Lasix p.o. Admission HPI Per Admitting Provider Daniella is a 75 year old female with past medical history significant for paroxysmal atrial fibrillation on long-term Eliquis, HFpEF, current smoker, hypertension, mesenteric artery stenosis, chronic respiratory failure with hypercarbia and hypoxemia, DM2, COPD, GERD, HLD and AAA at 4.5cm that presented to emergency department today via EMS with complai nts of right sided back pain. She reports she was at [facility] 3 weeks ago secondary to a ground-level fall at home and she was subsequently transferred to [facility] for further workup. At that time she states she was ambulating with her walker and lost her footing subsequently falling down onto the left side of her head sustaining a laceration that required suturing with complaints of back pain. She is unclear what her discharge diagnosis was in [place], however she states she was hospitalized for approximately 3 to 4 days. Over the course of the past few days she has had right sided lumbar pain that has worsened in nature and reproducible with movement. She has been taking Tylenol at home with no improvement. Reports associated radiculopathy in bilateral and lower legs with an episode of urinary incontinence 2 days ago. She states when she stood up she lost control of her bladder. Reports this does happen at times if her bladder is full she cannot get to the bathroom in time. She denies bowel incontinence. Overall her lower legs feel weak and she needs to use a walker at all times to ambulate when at home. She denies current [place], chest pain, visual changes, neck pain, chest pain, SOB, unilateral weakness of upper/lower extremities, slurred speech, ataxia, fever, chills, [place], dysuria, urinary frequency or new productive cough. Endorses she does have intermittent, productive cough which is baseline for her d/t hx of chronic smoking and COPD. She does smoke approximately 7 cigarettes daily>offered nicotine cessation for hospitalization and declines. Denies ETOH use. Will try to secure records from [facility]. Discharge Exam PHYSICAL EXAMINATION Last 24h vital signs reviewed, see documentation in flowsheet General: comfortable appearing, no distress, frail-appearing HEENT: Normocephalic, atraumatic, pupils round and equal, sclerae anicteric, no conjunctival injection, moist mucus membranes Lungs: Normal respiratory effort. diminished throughout with prolonged expiratory phase no wheezing some crackles in the left base Heart: irregularly irregular, no murmurs. No JVD Abdomen: Soft, nontender, nondistended. Bowel sounds present. Extremities: Warm, dry, well-perfused. No extremity edema. Neuro: Alert and oriented x 4, face symmetric, moves 4 extremities well Psych: Normal affect and behavior Discharge Plan Discharge Items Patient Disposition: Home - Home Health Services Reason For Visit: RIGHT SIDED BACK PAIN Discharge Diagnosis: Left lower lobe pneumonia, subacute compression fractures Condition on Discharge: Fair Activity: Per Instructions section Lifting: None Weightbearing: Full weightbearing Non-emergency contact: Primary Care Provider and Surgeon Call non-emergency contact if: you have any medication questions, your symptoms worsen and you have a fever Follow-up/Referrals: Elgin Padron MD [Surgeon] - Valery Payan CRNP [Outside Practitioners] - (THE PATIENT WILL CALL PCP TO MAKE A HOSPITAL FOLLOW UP VISIT IN 7-10 DAYS. ) Diet: Carb Consistent or DM2 Addtl Attending Provider Instructions: You were evaluated for back pain You have compression fractures at the T10 and T12 spinal levels, these are pretty mild but they can hurt a lot, especially the first few weeks. Bone takes six weeks to heal. These seem to have happened when you fell previously. You also have left 8th and 9th rib fractures but no tenderness in that area so these might be old. They could happen from falling or sometimes just from hard coughing -take acetaminophen around the clock until back pain improved: 650 mg four times a day, or 1000 mg three times a day - these are safe doses -I prescribed oxycodone to help with pain control - use this sparingly. Don't take it if you're getting sleepy/sedated because it can negatively affect your breathing if it is over dosed -most people your age shouldn't take it more frequently than every 4 to 6 hours -I prescribed calcitonin nasal spray for a month - this helps with compression fracture pain Call the spine surgeon's office Friday to schedule a visit this upcoming week. His office can fit you for a back brace. Avoid bending, twisting and lifting until your back heals. Home health PT and OT to help you regain your usual mobility. Continue to use your walker to prevent falls. You have left lower lung pneumonia - we are treating with antibiotics -keep taking antibiotics (augmentin and doxycycline) until they run out -seek medical attention if your breathing is getting worse or you're having fevers -follow up with your primary care doctor For constipation related to oxycodone: Miralax 1 capful daily or twice a day as needed Senna tabs 1-2 tabs daily as needed -these are both safe to take alf Dulcolax 5-10 mg tab daily as needed if the above meds are ineffective Dulcolax suppository per rectum daily as needed -these are for more severe constipation and are for short term use These medications are all available over the counter at the drugstore Your blood sugar has been running too high the past few months (hemoglobin A1c of 8.7%) -this can happen if you've had a lot of steroids (prednisone) recently for lung problems -continue your metformin and glymepiride and follow up with primary care It was a pleasure taking care of you in the hospital, Darlene Echols MD Pending Studies at Discharge: No Stand-Alone Forms: [facility], Pain - Opioid Pain Management, Smoking Cessation Medications and DC Order Prescriptions: New doxycycline hyclate 100 mg Capsule 100 mg PO BID Qty: 10 0RF acetaminophen [Tylenol Extra Strength] 500 mg Tablet 1,000 mg PO Q8H Qty: 0 0RF calcitonin (salmon) 200 unit/actuation [place],Non-Aerosol 1 spray NA DAILY 30 Days Qty: 3.7 0RF oxycodone 5 mg Tablet 5 mg PO Q4H PRN (Reason: pain) Qty: 30 0RF amoxicillin-pot clavulanate 875-125 mg tablet 1 tab PO BID Qty: 10 0RF glimepiride 4 mg tablet 4 mg PO DAILY Qty: 30 0RF Rx Instructions: already has rx at home Trelegy Ellipta 100-62.5-25 mcg blister with device 1 inh inhalation DAILY Qty: 28 0RF Rx Instructions: already has at home Continued (DME) OneTouch Verio test strips Strip See Rx Instructions .ROUTE .MEDSUPPLY Qty: 50 3RF Rx Instructions: test blood sugar 1-2 times per day Eliquis 5 mg tablet 5 mg PO BID Hold Instructions: Resume on 05/31/24. Until seen by PCP sennosides-docusate sodium [Senokot-S] 8.6-50 mg Tablet 1 tab PO QAM Qty: 30 0RF polyethylene glycol 3350 [Miralax] 17 gram Powder In Packet 17 g PO DAILY Qty: 30 0RF guaifenesin [Mucinex] 600 mg tablet extended release 12hr 1,200 mg PO Q12 Qty: 60 0RF ipratropium-albuterol 0.5 mg-3 mg(2.5 mg base)/3 mL solution for nebulization 3 ml inhalation Q4H PRN (Reason: shortness of breath) Qty: 90 0RF aspirin [Uri Low Dose Aspirin] 81 mg Tablet,Delayed Release (Dr/Ec) 81 mg PO QAM Qty: 30 0RF cyanocobalamin (vitamin B-12) 500 mcg Tablet 1,000 mcg PO QAM Qty: 60 0RF metformin 1,000 mg tablet 1,000 mg PO BID Qty: 60 0RF folic acid 1 mg tablet 1 mg PO QAM Qty: 30 0RF albuterol sulfate [Ventolin HFA] 90 mcg/actuation HFA aerosol inhaler 2 puff INHALATION Q6 PRN (Reason: Shortness Of Breath Or Wheezing) Qty: 8.5 0RF rosuvastatin 20 mg tablet 20 mg PO QAM Qty: 30 0RF metoprolol tartrate 50 mg tablet 50 mg PO BID pantoprazole 40 mg tablet,delayed release (DR/EC) 40 mg PO QAM furosemide 20 mg tablet 20 mg PO DAILY Discontinued Breztri Aerosphere 160-9-4.8 mcg/actuation Hfa Aerosol Inhaler 2 inh INHALATION BID insulin lispro [Humalog KwikPen Insulin] 100 unit/mL insulin pen 5 unit SUBCUT TID Qty: 15 0RF Rx Instructions: PER PT "HAVEN'T USED INSULIN IN A LONG TIME". before meals insulin glargine 100 unit/mL (3 mL) insulin pen 15 unit SUBCUT QAM Qty: 3 0RF Rx Instructions: PER PT "HAVEN'T USED INSULIN IN A LONG TIME". fluticasone furoate-vilanterol [Breo Ellipta] 100-25 mcg/dose blister with device 1 inh INHALATION DAILY Qty: 60 0RF Incruse Ellipta 62.5 mcg/actuation Blister With Device 1 inh INHALATION DAILY Qty: 30 0RF oxycodone 5 mg tablet 5 mg PO TID PRN (Reason: Pain) Discharge Orders: Discharge Order (Routine); Ordered 09/10/25 Ordered By: Darlene Echols Admission Data Admit Date/Time: 09/09/25 16:51 Attending Provider: Darlene Echols Admit Provider: Darlene Echols Primary Care Provider: VALERY CRAIG Other Providers: Darlene Echols; Elliot Saleh; Elgin Padron; Giovana Yost; Stephie Harris; Israel Butler.; Koby Sebastian; Subhash Arrieta; Israel Yost Other Interventions: Discharge Summary Assessment (RN) Last Done: 09/10/25 13:50 Hospital Stay Data Consultations 09/09/25 13:59 ED Decision to Admit Stat 09/09/25 16:27 Consult Orthopedic Spine Surgery Stat Diagnostic Imagining Performed 09/09/25 11:06 CT stones [CT abd pelvis wo con] Stat 09/09/25 16:21 MRI Spine [MR lumbar spine wo con] Stat MRI Thoracic [MR thoracic spine wo con] Stat Pending Results Patient Have Any Pending Studies at Discharge: No Discharge Instructions Given to Patient (Per Discharging Provider) You were evaluated for back pain You have compression fractures at the T10 and T12 spinal levels, these are pretty mild but they can hurt a lot, especially the first few weeks. Bone takes six weeks to heal. These seem to have happened when you fell previously. You also have left 8th a nd 9th rib fractures but no tenderness in that area so these might be old. They could happen from falling or sometimes just from hard coughing -take acetaminophen around the clock until back pain improved: 650 mg four times a day, or 1000 mg three times a day - these are safe doses -I prescribed oxycodone to help with pain control - use this sparingly. Don't take it if you're getting sleepy/sedated because it can negatively affect your breathing if it is over dosed -most people your age shouldn't take it more frequently than every 4 to 6 hours -I prescribed calcitonin nasal spray for a month - this helps with compression fracture pain Call the spine surgeon's office Friday to schedule a visit this upcoming week. His office can fit you for a back brace. Avoid bending, twisting and lifting until your back heals. Home health PT and OT to help you regain your usual mobility. Continue to use your walker to prevent falls. You have left lower lung pneumonia - we are treating with antibiotics -keep taking antibiotics (augmentin and doxycycline) until they run out -seek medical attention if your breathing is getting worse or you're having fevers -follow up with your primary care doctor For constipation related to oxycodone: Miralax 1 capful daily or twice a day as needed Senna tabs 1-2 tabs daily as needed -these are both safe to take rodent exterminator Dulcolax 5-10 mg tab daily as needed if the above meds are ineffective Dulcolax suppository per rectum daily as needed -these are for more severe constipation and are for short term use These medications are all available over the counter at the drugstore Your blood sugar has been running too high the past few months (hemoglobin A1c of 8.7%) -this can happen if you've had a lot of steroids (prednisone) recently for lung problems -continue your metformin and glymepiride and follow up with primary care It was a pleasure taking care of you in the hospital, Darlene Echols MD Total Time Total Time Spent Total Time Spent (In Minutes): I personally spent: 40 minutes today on clinical care activities including: reviewing chart notes and vital signs reviewing labs reviewing studies discussion with [employer] wms consultant(s) discussion with youth care professional examining and counseling the patient writing orders writing prescriptions, discharge instructions documentation Coding Level of Care Code 56546 INP/OBS DISCH >30 MIN Diagnoses Community acquired bilateral lower lobe pneumonia J18.9 T12 compression fracture S22.080A Paroxysmal A-fib I48.0 Leukocytosis D72.829 COPD (chronic obstructive pulmonary disease) J44.9 COPD type: unspecified COPD
--- NOTE | 2025-09-11 22:58 | Electrocardiogram Report ---
Test Reason : Blood Pressure : */* mmHG Vent. Rate : 76 BPM Atrial Rate : 76 BPM P-R Int : 134 ms QRS Dur : 78 ms QT Int : 402 ms P-R-T Axes : 76 27 79 degrees QTcB Int : 452 ms Normal sinus rhythm Normal ECG When compared with ECG of 27-Apr-2025 23:01, No significant change was found Confirmed by Juice Caro ([id number]) on 09/11/2025 10:58:22 PM Referred By: REFERRED SELF Confirmed By: Juice Caro
--- NOTE | 2025-09-13 11:41 | Coding Query ---
To promote full compliance with coding requirements relating to patient care, physician participation is requested in all cases of optical laboratory technician uncertainty. Please assist us with the question(s) below: Coding Question(s): It was noted throughout the record that the patient has/is suspected to have osteoporosis. According to coding guidelines "a code for osteoporotic fracture, and not a traumatic fracture, should be used for any patient with known osteoporosis who suffers a fracture, even if the patient had a minor fall or trauma, if that fall or trauma would not usually break a normal, healthy bone." Please indicate below the type of fracture: Physician's Response(s): ( ) Osteoporotic fracture of (left 8th and 9th ribs) ( x ) Traumatic fracture of (left 8th and 9th ribs) ( ) Other, please specify MTDD
== END 2025-09-10 15:23 | disposition home health service (06) | DRG 542 ==
LOC: ED 10:57 → 3N 16:51 → INTOOBSV 16:51 → 3N 18:25

== ENCOUNTER 2025-09-25 13:02 | Inpatient (IN) ==
--- NOTE | 2025-09-25 13:38 | Emergency Department Note ---
ED Provider Note History of Present Illness Chief Complaint: Urinary Symptoms Time Seen by Provider: 09/25/25 13:10 Source: patient and EMS Mode of arrival: EMS Limitations: no limitations Patient is a 75-year-old female that arrives to the emergency department via EMS with complaints of urinary symptoms. Patient reports that she has been having some lower abdominal pain and burning with urination. Patient's states that she complains of the symptoms whenever she has a urinary tract infection. Patient is a poor historian and is unsure of when her symptoms started but reports that it was "bad today". Home Medications Medication Instructions Recorded Confirmed Type blood sugar diagnostic (OneTouch #50 ea 06/02/21 04/26/25 Rx Verio test strips) apixaban 5 mg tablet (Eliquis) 5 mg PO BID 04/30/24 09/25/25 History guaifenesin 600 mg tablet, 1,200 mg (2 x 600 mg) PO Q12 12/24/24 09/25/25 Rx extended release 12 hr (Mucinex) Congestion #60 tabs polyethylene glycol 3350 17 gram 17 g PO DAILY #30 ea 12/24/24 09/25/25 Rx oral powder packet (Miralax) sennosides 8.6 mg-docusate sodium 1 tab PO QAM #30 tabs 12/24/24 09/25/25 Rx 50 mg tablet (Senokot-S) albuterol sulfate 90 mcg/actuation 2 puff inhalation Q6 PRN Shortness 12/27/24 09/25/25 Rx aerosol inhaler (Ventolin HFA) Of Breath Or Wheezing #8.5 grams aspirin 81 mg tablet,delayed 81 mg PO QAM #30 tabs 12/27/24 09/25/25 Rx release (Uri Low Dose Aspirin) cyanocobalamin (vitamin B-12) 500 1,000 mcg (2 x 500 mcg) PO QAM #60 12/27/24 09/25/25 Rx mcg tablet tabs folic acid 1 mg tablet 1 mg PO QAM #30 tabs 12/27/24 09/25/25 Rx ipratropium 0.5 mg-albuterol 3 mg 3 ml inhalation Q4H PRN shortness 12/27/24 09/25/25 Rx (2.5 mg base)/3 mL nebulization of breath #90 mL soln metformin 1,000 mg tablet 1,000 mg PO BID #60 tabs 12/27/24 09/25/25 Rx rosuvastatin 20 mg tablet 20 mg PO QAM #30 tabs 12/27/24 09/25/25 Rx furosemide 20 mg tablet 20 mg PO QAM Edema 04/26/25 09/25/25 History metoprolol tartrate 50 mg tablet 50 mg PO BID 04/26/25 09/25/25 History pantoprazole 40 mg tablet,delayed 40 mg PO QAM 04/26/25 09/25/25 History release acetaminophen 500 mg tablet 1,000 mg (2 x 500 mg) PO Q8H #0 09/10/25 09/25/25 Rx (Tylenol Extra Strength) tabs calcitonin (salmon) 200 1 spray NA DAILY 1 month #3.7 mL 09/10/25 09/25/25 Rx unit/actuation nasal spray fluticasone fur. 100 mcg-umeclid 1 inh inhalation DAILY #28 ea 09/10/25 09/25/25 Rx 62.5 mcg-vilant 25 mcg inhalat.powder (Trelegy Ellipta) glimepiride 4 mg tablet 4 mg PO DAILY #30 tabs 09/10/25 09/25/25 Rx oxycodone 5 mg tablet 5 mg PO Q4H PRN pain #30 tabs 09/10/25 09/25/25 Rx Allergies Allergy/AdvReac Type Severity Reaction Status Date / Time diflunisal AdvReac Intermediate HEART RACES Verified 09/09/25 17:31 Past Med/Surg History Problem List (Updated 09/26/25 @ 10:14 by BRET Askew) Community acquired bilateral lower lobe pneumonia Paroxysmal A-fib T12 compression fracture Anemia (Acute) Back pain (Acute) Hyperkalemia Diarrhea TATY (acute kidney injury) (Acute) CHF (congestive heart failure) (Acute) Change in mental state (Acute) Acute and chronic respiratory failure with hypoxia (Acute) Sepsis (Acute) Chronic pain Type 2 diabetes mellitus Cognitive changes Left lower lobe consolidation Elevated LFTs Weakness (Acute) Hypokalemia (Acute) Symptomatic anemia (Acute) Acute GI bleeding (Acute) Tobacco abuse Acute on chronic respiratory failure with hypoxia Left lower lobe pneumonia CHF (congestive heart failure) (Acute) Acute UTI (urinary tract infection) (Acute) Pleural effusion (Acute) Shortness of breath (Acute) Abdominal pain (Acute) Acute hypoxemic respiratory failure (Acute) Hypomagnesemia (Acute) COPD with acute exacerbation (Acute) Pleural effusion (Acute) CHF (congestive heart failure) (Acute) Ambulatory dysfunction Pneumonia (Acute) Acute respiratory distress (Acute) Altered mental status (Acute) Tachycardia (Acute) Hypomagnesemia (Acute) Metabolic encephalopathy Hyperglycemia Acute exacerbation of chronic obstructive pulmonary disease (Acute) Hypoxia (Acute) Afib COPD, very severe Weakness generalized (Acute) Atrial fibrillation with rapid ventricular response (Acute) Dilated pancreatic duct Positive blood culture Abdominal pain Abdominal pain Lower extremity edema Respiratory distress (Acute) Hypertension (Acute) COPD exacerbation (Acute) Respiratory acidosis (Acute) Elevated lactic acid level (Acute) Tachycardia (Acute) Hypomagnesemia (Acute) Acute bronchitis with chronic obstructive pulmonary disease (COPD) SOB (shortness of breath) (Acute) Anemia (Acute) Chest tightness (Acute) UTI (urinary tract infection) (Acute) Chronic pain syndrome SOB (shortness of breath) (Acute) COPD exacerbation (Acute) Dizziness (Acute) Acute UTI (Acute) Hypomagnesemia (Acute) Anemia B12 deficiency COPD exacerbation (Acute) Hyperlipidemia Dysphagia Chronic kidney disease HTN (hypertension) Thrombocythemia Chronic low back pain (Chronic) Diaphragmatic hernia (Chronic 10/31/11) Overweight (BMI 25.0-29.9) (Chronic) AAA (abdominal aortic aneurysm) Left peroneal nerve palsy (Chronic) History of knee replacement (Acute) Knee pain, left (Acute) Right knee pain (Acute) Diabetes type 2, uncontrolled (Acute) COPD (chronic obstructive pulmonary disease) (Acute) Medical History Acute blood loss anemia Hospital-acquired pneumonia Aspiration pneumonia Current smoker Anemia Sepsis Acute confusion Severe muscle deconditioning COPD exacerbation Respiratory failure Acute hypercapnic respiratory failure TATY (acute kidney injury) AMS (altered mental status) Syncope Acute UTI Acute hypotension Chronic kidney disease, stage 3a Acute kidney injury Acute exacerbation of chronic low back pain Candidiasis of mouth and esophagus DVT prophylaxis Diabetes mellitus COPD (chronic obstructive pulmonary disease) Hypertension Hyperlipidemia Acute on chronic respiratory failure with hypoxia and hypercapnia Family History Other Family history non-contributory Social History Smoking Status: Current every day smoker Tobacco Type: Cigarettes Age Started Using Tobacco: 32; Cigarettes Per Day: 10; Second Hand Exposure: Yes; Do You Dip or Chew Tobacco: No; Hx Alcohol Use: No Hx Substance Use: No Preferred Language: Monegasque Communication Ability: Effective Scanning Manager Required: No Beliefs That Will Affect Care: Congregation marital status: Current Living Situation: Spouse and Family Current Living Situation Comment: with kyrie How many Children do You have: 3 Feels Safe at Home: Yes Assistive Devices: Glasses and Oxygen - Continuous Physical Exam Vital Signs Vital Signs - 24 hr 09/25/25 13:13 09/25/25 13:35 09/25/25 14:11 Temperature 36.4 C L Temperature Source Axillary Pulse Rate 98 H 85 Pulse Rate [Apical] 98 H Pulse Rhythm Pulse Rhythm [Apical] Regular Pulse Strength [Apical] Normal Respiratory Rate 28 H 23 Respiratory Effort / Characteristics Non-Labored Spontaneous Non-Labored Spontaneous Respiratory Depth Normal Normal Respiratory Pattern Regular Regular Blood Pressure 89/69 L Blood Pressure [Right Arm] 129/72 Blood Pressure Mean 75 Blood Pressure Mean [Right Arm] 91 Blood Pressure Position [Right Arm] Sitting Pulse Oximetry 97 99 Oxygen Delivery Method Room Air Nasal Cannula Oxygen Flow Rate 3 Sepsis Recent Fever Within 48 Hours No Sepsis New/Unexplained Change in Mental Status No Sepsis Action Taken by Nursing Adv Provider Notified 09/25/25 14:11 Temperature Temperature Source Pulse Rate 98 H Pulse Rate [Apical] Pulse Rhythm Regular Pulse Rhythm [Apical] Pulse Strength [Apical] Respiratory Rate 23 Respiratory Effort / Characteristics Respiratory Depth Respiratory Pattern Blood Pressure Blood Pressure [Right Arm] Blood Pressure Mean Blood Pressure Mean [Right Arm] Blood Pressure Position [Right Arm] Pulse Oximetry 99 Oxygen Delivery Method Nasal Cannula Oxygen Flow Rate 3 Sepsis Recent Fever Within 48 Hours Sepsis New/Unexplained Change in Mental Status Sepsis Action Taken by Nursing VITAL SIGNS - Vital signs and nursing notes were reviewed. GENERAL -75-year-old female appearing their stated age, who is in no acute distress. Communicates well with provider and answers questions appropriately, does however seem to be a poor historian. Patient's is at bedside. HEAD - Normocephalic, Atraumatic. EYES - PERRL with EOMI bilaterally. Sclera anicteric. Conjunctiva pink and moist with no injection noted. NOSE - Midline and without cyanosis. No epistaxis or purulent drainage noted. NECK - Neck with FROM. Supple to palpation. No lymphadenopathy noted. LUNGS - Chest wall symmetric without accessory muscle use, intercostals retractions, or central cyanosis. Normal vesicular breath sounds CTA B/L. No wheezes, rales, or rhonchi appreciated. CARDIAC - RRR with S1/S2. No murmur, rubs, or gallops appreciated. ABDOMEN- Bowel sounds are normoactive throughout all 4 quadrants. Patient notes increased discomfort with palpation to her lower abdomen. No palpable masses or ascites noted. EXTREMITIES - No edema present. +5/5 strength noted in UE/LE bilaterally. NEUROLOGIC -Sensory intact to light touch throughout. PSYCH - A&Ox3 and cooperates fully with examiner. Pt is very pleasant and interacts well with examiner Course Administered Medications Acetaminophen (Acetaminophen 500 Mg Tab) 1,000 mg PO Q8H KALEY Stop: 10/25/25 22:59 Last Admin: 09/26/25 08:58 Dose: Not Given Documented By: mayraf Admin: 09/25/25 22:16 Dose: Not Given Documented By: PEGGY Apixaban (Apixaban 2.5 Mg Tab) 2.5 mg PO BID KALEY Stop: 10/25/25 20:59 Last Admin: 09/26/25 08:59 Dose: Not Given Documented By: mayraf Admin: 09/25/25 22:16 Dose: Not Given Documented By: PEGGY Aspirin (Aspirin 81 Mg Ectab) 81 mg PO QAM KALEY Stop: 10/26/25 08:59 Last Admin: 09/26/25 08:59 Dose: Not Given Documented By: sally Dextrose (Dextrose 50% 50 Ml Syringe) 25 - 50 ml IV UD PRN; Protocol PRN Reason: Hypoglycemia Protocol Stop: 10/25/25 17:40 Last Admin: 09/26/25 02:43 Dose: 50 ml Documented By: XIMENA Fluticasone Furoate (Fluticasone Furoate 100mcg 14 Puffs/Inhaler) 1 puffs INH DAILY KALEY Stop: 10/26/25 08:59 Last Admin: 09/26/25 08:59 Dose: Not Given Documented By: dlf Ceftriaxone Sodium (Rocephin) 2,000 mg in 50 mls @ 100 mls/hr IV Q24H KALEY Stop: 09/30/25 22:59 Last Infusion: 09/25/25 22:29 Dose: Infused Documented By: Admin: 09/25/25 22:00 Dose: 100 mls/hr Documented By: PEGGY Sodium Bicarbonate 150 meq/ (Dextrose) 1,150 mls @ 125 mls/hr IV .Q9H12M KALEY Stop: 09/29/25 07:29 Last Admin: 09/26/25 07:46 Dose: 125 mls/hr Documented By: sally Pantoprazole Sodium (Pantoprazole 40 Mg Tab) 40 mg PO QAM KALEY Stop: 10/26/25 08:59 Last Admin: 09/26/25 09:00 Dose: Not Given Documented By: sally Polyethylene Glycol (Polyethylene (Miralax) 17 Gm Pack) 17 gm PO DAILY KALEY Stop: 10/26/25 08:59 Last Admin: 09/26/25 09:00 Dose: Not Given Documented By: sally Rosuvastatin Calcium (Rosuvastatin Calcium 20 Mg Tab) 20 mg PO QAM [facility] Stop: 10/26/25 08:59 Last Admin: 09/26/25 09:00 Dose: Not Given Documented By: sally Senna/Docusate Sodium (Docusate Sodium/Senna 50/8.6mg Tab) 1 tab PO QAM [facility] Stop: 10/26/25 08:59 Last Admin: 09/26/25 09:00 Dose: Not Given Documented By: mayraf Umeclidinium/Vilanterol (Umeclidinium/Vilanterol 62.5/25mcg 7 Puffs/Inhaler) 1 puffs INH DAILY [facility] Stop: 10/26/25 08:59 Last Admin: 09/26/25 09:00 Dose: Not Given Documented By: dlf Discontinued Medications Dextrose (Dextrose 50% 50 Ml Syringe) Confirm Administered Dose 50 ml IV .STK- MED ONE Stop: 09/25/25 17:18 Last Admin: 09/25/25 17:15 Dose: 50 ml Documented By: PEGGY Dextrose (Dextrose 50% 50 Ml Syringe) 50 ml IV NOW STA Stop: 09/25/25 23:50 Last Admin: 09/26/25 00:54 Dose: 50 ml Documented By: XIMENA Dextrose (Dextrose 50% 50 Ml Syringe) 50 ml IV NOW STA Stop: 09/26/25 06:33 Last Admin: 09/26/25 06:38 Dose: 50 ml Documented By: XIMENA Hydromorphone HCl (Hydromorphone Inj 0.5 Mg/0.5 Ml Syr) 0.25 mg IV NOW STA Stop: 09/25/25 15:54 Last Admin: 09/25/25 16:56 Dose: 0.25 mg Documented By: PEGGY Cefepime HCl (Maxipime 2000mg) 2,000 mg in 20 mls @ 5 mls/min IV NOW STA; Protocol Stop: 09/25/25 14:13 Last Admin: 09/25/25 14:42 Dose: 5 mls/min Documented By: ARMANDO Acetaminophen (Ofirmev) 1,000 mg in 100 mls @ 400 mls/hr IV NOW STA Stop: 09/25/25 14:26 Last Infusion: 09/25/25 15:27 Dose: Infused Documented By: Admin: 09/25/25 15:09 Dose: 400 mls/hr Documented By: ARMANDO Sodium Chloride (Nss) 500 mls @ 999 mls/hr IV .Q31M ONE Stop: 09/25/25 14:42 Last Infusion: 09/25/25 17:42 Dose: Infused Documented By: Admin: 09/25/25 15:21 Dose: 999 mls/hr Documented By: ROBEL Sodium Chloride (Nss) 1,000 mls @ 999 mls/hr IV .Q1H1M ONE Stop: 09/25/25 16:10 Last Infusion: 09/25/25 17:42 Dose: Infused Documented By: Admin: 09/25/25 15:21 Dose: 999 mls/hr Documented By: ROBEL Sodium Bicarbonate 100 meq/ (Sterile Water) 1,100 mls @ 125 mls/hr IV .Q8H48M KALEY Stop: 10/25/25 15:29 Last Infusion: 09/26/25 07:49 Dose: Infused Documented By: sally Admin: 09/26/25 05:08 Dose: 125 mls/hr Documented By: Infusion: 09/26/25 05:08 Dose: Infused Documented By: Infusion: 09/26/25 00:38 Dose: 125 mls/hr Documented By: Admin: 09/25/25 17:39 Dose: 75 mls/hr Documented By: PEGGY Insulin Human Regular 10 units (/ Syringe) 10 mls @ 3 mls/sec IV ONE STA Stop: 09/25/25 23:50 Last Admin: 09/26/25 00:55 Dose: 3 mls/sec Documented By: XIMENA Co-signed By: LUIS Calcium Gluconate () 1,000 mg in 60 mls @ 240 mls/hr IV NOW STA Stop: 09/26/25 00:03 Last Infusion: 09/26/25 00:53 Dose: Infused Documented By: Admin: 09/26/25 00:28 Dose: 240 mls/hr Documented By: XIMENA Ondansetron HCl (Ondansetron Inj 2 Mg/Ml 2 Ml Vial) 4 mg IV NOW STA Stop: 09/25/25 15:54 Last Admin: 09/25/25 16:55 Dose: 4 mg Documented By: PEGGY Sodium Zirconium Cyclosilicate (Sodium Zirconium Cyclosilicate 10 Gm Packet) 10 gm PO NOW STA Stop: 09/25/25 23:20 Last Admin: 09/26/25 00:45 Dose: Not Given Documented By: XIMENA Medical Decision Making Differential Diagnosis UTI, dehydration, electrolyte imbalance, weakness, gastroenteritis, IBS, small bowel obstruction, pancreatitis, peritonitis, constipation, abdominal abcess, among others. Medical Records Attestation: I reviewed the patient's medical records. Home Medications was personally reviewed by me Laboratory Data Attestation: I reviewed the patient's lab results. 09/25/25 13:33 09/26/25 02:00 Lab Results 09/25/25 09/25/25 Range/Units 13:33 13:44 WBC 10.74 (4.8-10.8) K/ul RBC 3.89 L (4.20-5.40) M/uL Hgb 11.0 L (12.0-16.0) g/dl Hct 38.4 (37.0-47.0) % MCV 98.7 (80.0-100.0) fL MCH 28.3 (25.0-34.0) pg MCHC 28.6 L (32.0-36.0) g/dL RDW Std Deviation 71.9 H (36.4-46.3) fL RDW Coeff of Dorcas 20.2 H (11.5-14.5) % Plt Count 456 H (130-400) K/uL MPV 10.1 (9.4-12.4) fL Immature Gran % (Auto) 2.2 % Neut % (Auto) 73.1 % Lymph % (Auto) 16.2 % Grady % (Auto) 6.6 % Eos % (Auto) 1.2 % Baso % (Auto) 0.7 % Neut # (Auto) 7.84 H (1.40-6.50) K/uL Lymph # (Auto) 1.74 (1.20-3.40) K/uL Grady # (Auto) 0.71 H (0.11-0.59) K/uL Eos # (Auto) 0.13 (0.00-0.50) K/uL Baso # (Auto) 0.08 (0.00-0.20) K/uL Immature Gran # (Auto) 0.24 H (0.01-0.20) K/uL Absolute Nucleated RBC 0.03 (0.00-0.12) K/uL Nucleated RBC % (auto) 0.3 % Sodium 146 H (136-145) mmol/L Potassium 5.2 H (3.5-5.1) mmol/L Chloride 111 H (98-107) mmol/L Carbon Dioxide 15 L (21-32) mmol/L Anion Gap 20 H (3-11) BUN 35 H (6-23) mg/dl Creatinine 2.29 H (0.6-1.2) mg/dl Est Cr Clr Drug Dosing 18.1 ml/min eGFR 22.01 BUN/Creatinine Ratio 15.3 (10-20) Glucose 86 (70-99(Fasting)) mg/dl Lactate 3.3 H* (0.4-2.0) mmol/L Calcium 9.0 (8.6-10.3) mg/dl Total Bilirubin 0.3 (0.2-1.0) mg/dl AST 108 H (13-39) U/L ALT 122 H (7-52) U/L Alkaline Phosphatase 231 H (34-104) U/L Total Protein 5.8 L (6.0-8.3) gm/dl Albumin 3.0 L (3.4-5.0) gm/dl Globulin 2.8 (2.5-4.0) gm/dl Albumin/Globulin Ratio 1.1 (0.9-2) Lipase 21 (11-82) U/L Urine Color Yellow Urine Appearance Cloudy A (Clear) Urine pH 5.0 (4.5-7.5) Ur Specific Fritch 1.023 (1.000-1.030) Urine Protein 2+ H (Negative) Urine Glucose (UA) Negative (Negative) Urine Ketones Negative (Negative) Urine Blood Negative (Negative) Urine Nitrite Negative (Negative) Urine Bilirubin Negative (Negative) Urine Urobilinogen Negative (Negative) Ur Leukocyte Esterase 1+ H (Negative) Urine WBC (Auto) 11-20 H (0-5) /hpf Urine RBC (Auto) 0-2 (0-2) /hpf U Hyaline Cast (Auto) 11-20 H (0-2) /lpf U Epithel Cells (Auto) 3-5 H (0-2) /hpf Urine Bacteria (Auto) 1+ H (None Seen) Hyaline Casts Present A (None Presnt) /lpf Granular Casts Present A (None Prsent) /lpf Urine Yeast Present A (None Prsent) Urine Comment Imaging Data Radiologist's Impression: Chest X-Ray 09/25/25 13:20 EXAM: Radiograph of the Chest 1 View INDICATION: Sepsis TECHNIQUE: Frontal view of the chest. COMPARISON: 04/26/2025 FINDINGS: Lungs and pleural spaces: Stable mild scarring and hyperinflation. No consolidation or pulmonary edema. No pleural effusion or pneumothorax. Heart: Shape and configuration within normal limits allowing for technique. Mediastinum: Normal contour. Bones/joints: No fracture, erosion or dislocation. Soft tissues: No abnormality noted. No radiopaque foreign body noted. Vasculature: Stable ectatic calcified aorta. Upper abdomen: No abnormality noted. IMPRESSION: Stable chronic changes. No acute disease. ACT 112: N/A Electronically signed by Arielle Ramirez 09-25-2025 2:20 PM Abdomen/Pelvis CT 09/25/25 14:18 EXAM: CT Abdomen and Pelvis Without Intravenous Contrast INDICATION: Feeling unwell. Poor appetite. TECHNIQUE: Axial computed tomography images of the abdomen and pelvis without intravenous contrast. Sagittal and coronal reformatted images were created and reviewed. This CT exam was performed using one or more of the following dose reduction techniques: automated exposure control, adjustment of the mA and/or kV according to patient size, and/or use of iterative reconstruction technique. COMPARISON: 12/26/2024 FINDINGS: Limitations: . Lung bases: No abnormality noted. Pleural space: No visualized pleural effusion or pneumothorax. Heart: No abnormality noted. Mediastinum: No abnormality noted. ABDOMEN: Liver: Lack of intravenous contrast limits detection of some masses. No abnormality noted. Gallbladder and bile ducts: Cholecystectomy. No ductal dilation or stone noted. Pancreas: No pancreatic mass, calcification, inflammation or ductal dilation noted. Spleen: Multiple granulomata noted in the spleen. Adrenals: Stable low-density left adrenal nodule typical of adenoma. No further assessment required. The right appears normal. Kidneys and ureters: No abnormality noted. No stones. No hydronephrosis. No significant perinephric fluid. Stomach and bowel: Aspiratory motion limits assessment of some intestinal loops. Left colonic diverticulosis. No diverticulitis. No obstruction. PELVIS: Appendix: No findings to suggest acute appendicitis. Bladder: Appears normal for the degree of filling. No stones or inflammation. No large mass. Masses may not be detected in the absence of opacification. Reproductive: Hysterectomy. ABDOMEN and PELVIS: Intraperitoneal space: Trace amounts of fluid in the pelvis. No abscess. No free air. Bones/joints: Degenerative changes noted throughout the spine. No acute osseous abnormality seen. Soft tissues: No acute abnormality noted. Vasculature: There is diffuse moderate to severe atherosclerosis of the aorta and branches particular the superior mesenteric artery. Stable distal aneurysm of 4.3 cm. No dissection or hemorrhage. Lymph nodes: No pathologically enlarged lymph nodes. IMPRESSION: 1. No acute abnormality noted. 2. Some bowel loops are poorly assessed due to motion. Diverticulosis without diverticulitis or obstruction. 3. Stable 4.3 cm distal abdominal aortic aneurysm without hemorrhage. ACR White Paper guidelines (Diaz, et al. JACR 2013; 10(10):789-94) suggest abdomen/pelvis CT or MR imaging follow-up in 1 years. ACT 112: N/A Electronically signed by Arielle Ramirez 09-25-2025 3:16 PM MDM Narrative Patient is a 75-year-old female that arrives to the emergency department via EMS with complaints of urinary symptoms. Patient reports that she has been having some lower abdominal pain and burning with urination. Patient's states that she complains of the symptoms whenever she has a urinary tract infection. Patient is a poor historian and is unsure of when her symptoms started but reports that it was "bad today". Patient was evaluated by myself and findings were noted in the physical exam above. Patient was ordered IV placement, lab work, EKG, urinalysis, and EKG. Patient was also ordered a CT of the abdomen pelvis without contrast as well as a chest x-ray. Patient's chest x-ray was completed and interpreted by radiology to note stable chronic changes with no acute disease. The patient's EKG was completed and interpreted by myself to show the patient and sinus tachycardic rhythm. Patient's lab work resulted with a white blood cell count of 10.74. Patient had no significant anemia with a hemoglobin of 11.0 and hematocrit of 38.4. Patient had no significant electrolyte imbalance noted. The patient did have some mild changes in electrolytes like a potassium of 5.2, chloride of 111. Patient did have an elevated BUN of 35 and creatinine of 2.29. Patient's liver function tests are elevated with an AST of 108 and ALT of 122 and an alkaline phosphatase of 231. Patient also had an initial lactic acid level of 3.3. Patient was ordered blood cultures at this time. Patient's urinalysis was completed and was indicative of infection. Patient was ordered a dose of cefepime, IV Tylenol, and normal saline at this time. Patient's CAT scan of the abdomen pelvis was completed and interpreted by radiology to show no acute abnormality. Some bowel loops were poorly assessed due to motion and there was a stable 4.3 cm distal abdominal aortic aneurysm without hemorrhage noted. I spoke with the patient and discussed all the findings with her and her at bedside. They both verbalized understanding. I discussed with the patient that it would be advisable for her to stay in the hospital for further evaluation and management of her symptoms as she still remains somewhat hypotensive. I discussed with the patient that I am concerned for urosepsis and concern that she needs to stay in the hospital for further treatment. The patient is hesitant but agrees to speak with the hospitalist. I reached out to the [facility] hospitalist group and spoke with Dr. Ferrell. I gave her a full report on the patient's chief complaint, current status and the results of her imaging and lab work. She agreed to except the patient for admission under her service. [facility] and management of this patient. Impression UTI (urinary tract infection), Elevated lactic acid level, Weakness generalized, Sepsis, TATY (acute kidney injury) Discharge Plan Visit Data Chief Complaint: Urinary Symptoms ED Provider: Koby Magana ED Midlevel Provider: Alison Chilel Discharge Problem: UTI (urinary tract infection), Elevated lactic acid level, Weakness generalized, Sepsis, TATY (acute kidney injury) Patient Disposition: Admitted As Inpatient Condition: Fair Discharge Instructions Interventions: ED Discharge Assessment Last Done: 09/25/25 16:11 ED DC CONDITION Conditon at Discharge Condition at Discharge: Fair Discharge Problem: UTI (urinary tract infection) Qualifiers: Urinary tract infection type: site unspecified Hematuria presence: without hematuria Qualified Code(s): N39.0 - Urinary tract infection, site not specified Sepsis Qualifiers: Sepsis type: sepsis due to unspecified organism
[2025-09-25 13:57] LABS: Hematocrit (blood only) 38.4 % (37.0-47.0); Hemoglobin 11.0 g/dl (12.0-16.0); Immature Granulocytes # (auto) 0.24 K/uL (0.01-0.20); Immature Granulocytes % (auto) 2.2 %; Mean Corpuscular Hemoglobin 28.3 pg (25.0-34.0); Mean Corpuscular Volume 98.7 fL (80.0-100.0); Platelet Count 456 K/uL (130-400); RDW Standard Deviation 71.9 fL (36.4-46.3); Red Blood Count 3.89 M/uL (4.20-5.40); White Blood Count 10.74 K/ul (4.8-10.8)
[2025-09-25 14:13] LABS: Alanine Aminotransferase 122.0 U/L (7-52); Albumin Globulin Ratio 1.1 (0.9-2); Albumin Level 3.0 gm/dl (3.4-5.0); Alkaline Phosphatase 231.0 U/L (34-104); Anion Gap 20.0 (3-11); Bilirubin,Total 0.3 mg/dl (0.2-1.0); Blood Urea Nitrogen 35.0 mg/dl (6-23); Calcium 9.0 mg/dl (8.6-10.3); Carbon Dioxide 15.0 mmol/L (21-32); Chloride 111.0 mmol/L (98-107); Creatinine Clr Calc Pharmacy 18.1 ml/min; Globulin 2.8 gm/dl (2.5-4.0); Glucose 86.0 mg/dl (70-99(Fasting)); Lipase 21.0 U/L (11-82); Potassium 5.2 mmol/L (3.5-5.1); Sodium 146.0 mmol/L (136-145); Total Protein 5.8 gm/dl (6.0-8.3)
--- NOTE | 2025-09-25 14:13 | Emergency Department Note ---
ED Visit Note I was consulted by the Advanced Practice Provider. I personally made/approved the management plan and take responsibility for the patient management. I performed a substantive portion of the visit. This includes the aspects of: [-I independently interpreted the following studies:][Chest x-ray shows some chronic change, no focal pneumonia. There was no CHF.] The patient presents with hypotension and tachypnea. She has been weak. There was concern for sepsis. Workup in the ED suggests a possible urinary source for her infection. She does have findings of acute kidney injury. Her lactic acid level is elevated. Luckily, her blood pressure improved with IV hydration. Antibiotics have been administered. Admission is warranted. The hospitalist was consulted. .
[2025-09-25 14:19] LABS: Appearance Urine Cloudy (Clear); Glucose Urine UA Negative (Negative)
--- NOTE | 2025-09-25 14:22 | XRay Report ---
EXAM: Radiograph of the Chest 1 View INDICATION: Sepsis TECHNIQUE: Frontal view of the chest. COMPARISON: 04/26/2025 FINDINGS: Lungs and pleural spaces: Stable mild scarring and hyperinflation. No consolidation or pulmonary edema. No pleural effusion or pneumothorax. Heart: Shape and configuration within normal limits allowing for technique. Mediastinum: Normal contour. Bones/joints: No fracture, erosion or dislocation. Soft tissues: No abnormality noted. No radiopaque foreign body noted. Vasculature: Stable ectatic calcified aorta. Upper abdomen: No abnormality noted. IMPRESSION: Stable chronic changes. No acute disease. ACT 112: N/A Electronically signed by Arielle Ramirez 09-25-2025 2:20 PM
[2025-09-25 14:26] LABS: Bacteria Urine Automated 1+ (None Seen); RBC Urine Automated 0-2 /hpf (0-2)
[2025-09-25] MEDS: CEFEPIME 2000MG 2,000 MG/20 ML SYR IV STA (14:42)
[2025-09-25] MEDS: ACETAMINOPHEN 1,000 MG/100 ML VIAL IV STA (15:09)
--- NOTE | 2025-09-25 15:16 | CT Scan Report ---
EXAM: CT Abdomen and Pelvis Without Intravenous Contrast INDICATION: Feeling unwell. Poor appetite. TECHNIQUE: Axial computed tomography images of the abdomen and pelvis without intravenous contrast. Sagittal and coronal reformatted images were created and reviewed. This CT exam was performed using one or more of the following dose reduction techniques: automated exposure control, adjustment of the mA and/or kV according to patient size, and/or use of iterative reconstruction technique. COMPARISON: 12/26/2024 FINDINGS: Limitations: . Lung bases: No abnormality noted. Pleural space: No visualized pleural effusion or pneumothorax. Heart: No abnormality noted. Mediastinum: No abnormality noted. ABDOMEN: Liver: Lack of intravenous contrast limits detection of some masses. No abnormality noted. Gallbladder and bile ducts: Cholecystectomy. No ductal dilation or stone noted. Pancreas: No pancreatic mass, calcification, inflammation or ductal dilation noted. Spleen: Multiple granulomata noted in the spleen. Adrenals: Stable low-density left adrenal nodule typical of adenoma. No further assessment required. The right appears normal. Kidneys and ureters: No abnormality noted. No stones. No hydronephrosis. No significant perinephric fluid. Stomach and bowel: Aspiratory motion limits assessment of some intestinal loops. Left colonic diverticulosis. No diverticulitis. No obstruction. PELVIS: Appendix: No findings to suggest acute appendicitis. Bladder: Appears normal for the degree of filling. No stones or inflammation. No large mass. Masses may not be detected in the absence of opacification. Reproductive: Hysterectomy. ABDOMEN and PELVIS: Intraperitoneal space: Trace amounts of fluid in the pelvis. No abscess. No free air. Bones/joints: Degenerative changes noted throughout the spine. No acute osseous abnormality seen. Soft tissues: No acute abnormality noted. Vasculature: There is diffuse moderate to severe atherosclerosis of the aorta and branches particular the superior mesenteric artery. Stable distal aneurysm of 4.3 cm. No dissection or hemorrhage. Lymph nodes: No pathologically enlarged lymph nodes. IMPRESSION: 1. No acute abnormality noted. 2. Some bowel loops are poorly assessed due to motion. Diverticulosis without diverticulitis or obstruction. 3. Stable 4.3 cm distal abdominal aortic aneurysm without hemorrhage. ACR White Paper guidelines (Diaz et al. JACR 2013; 10(10):789-94) suggest abdomen/pelvis CT or MR imaging follow-up in 1 years. ACT 112: N/A Electronically signed by Arielle Ramirez 09-25-2025 3:16 PM
[2025-09-25] MEDS: SODIUM CHLORIDE 0.9% 1,000 ML IV ONE (15:21)
[2025-09-25] MEDS: SODIUM CHLORIDE 0.9% 500 ML IV ONE (15:21)
[2025-09-25] MEDS ORDERED: STAT IV/IM STA (15:21)
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
[2025-09-25] MEDS ORDERED: ALBUT/IPRATROP 3MG/0.5MG NEB 3 ML VIAL INH PRN (16:46)
[2025-09-25] MEDS ORDERED: ALBUTEROL HFA 8 GM INHALER INH PRN (16:46)
[2025-09-25] MEDS ORDERED: POLYETHYLENE (MIRALAX) 17 GM PACK PO PRN (16:46)
[2025-09-25] MEDS: ONDANSETRON INJ 2 MG/ML 2 ML VIAL IV STA (16:55)
[2025-09-25] MEDS: HYDROmorphone INJ 0.5 MG/0.5 ML SYR IV STA (16:56)
[2025-09-25] MEDS: DEXTROSE 50% 50 ML SYRINGE IV ONE (17:15)
[2025-09-25] MEDS: SODIUM BICARBONATE 8.4% 100 MEQ in WATER, STERILE 1,000 ML IV SCH (17:39)
[2025-09-25] MEDS ORDERED: GLUCOSE 10 TAB/TUBE PO PRN (17:41)
[2025-09-25] MEDS ORDERED: GLUCAGON FOR INJ 1 MG VIAL SQ PRN (17:41)
[2025-09-25] MEDS ORDERED: GLUCOSE 40% GEL 15 GM TUBE PO PRN (17:41)
[2025-09-25 21:43] LABS: Anion Gap 14.0 (3-11); Blood Urea Nitrogen 38.0 mg/dl (6-23); Calcium 8.1 mg/dl (8.6-10.3); Carbon Dioxide 16.0 mmol/L (21-32); Chloride 114.0 mmol/L (98-107); Creatinine Clr Calc Pharmacy 18.5 ml/min; Glucose 151.0 mg/dl (70-99(Fasting)); Potassium 5.6 mmol/L (3.5-5.1); Sodium 144.0 mmol/L (136-145)
[2025-09-25] MEDS: cefTRIAXone SODIUM 2,000 MG/50 ML BAG IV SCH (22:00)
[2025-09-25] MEDS: APIXABAN 2.5 MG TAB PO SCH (22:16)
[2025-09-25] MEDS: ACETAMINOPHEN 500 MG TAB PO SCH (22:16)
[2025-09-26] MEDS: CALCIUM GLUCONATE 1,000 MG/60 ML BAG IV STA (00:28)
[2025-09-26] MEDS: SODIUM ZIRCONIUM CYCLOSILICATE 10 GM PACKET PO STA (00:45)
[2025-09-26] MEDS: DEXTROSE 50% 50 ML SYRINGE IV STA ×2 (00:54→06:38)
[2025-09-26] MEDS: INSULIN HUMAN REGULAR PER UNIT 10 UNITS in SYRINGE 9.9 ML IV STA (00:55)
[2025-09-26 02:32] LABS: Anion Gap 16.0 (3-11); Blood Urea Nitrogen 41.0 mg/dl (6-23); Calcium 8.6 mg/dl (8.6-10.3); Carbon Dioxide 15.0 mmol/L (21-32); Chloride 113.0 mmol/L (98-107); Creatinine Clr Calc Pharmacy 18.0 ml/min; Glucose 77.0 mg/dl (70-99(Fasting)); Potassium 4.6 mmol/L (3.5-5.1); Sodium 144.0 mmol/L (136-145)
[2025-09-26] MEDS: DEXTROSE 50% 50 ML SYRINGE IV PRN (02:43)
[2025-09-26] MEDS: SODIUM BICARBONATE 8.4% 150 MEQ in DEXTROSE 5% 1,000 ML IV SCH (07:46)
[2025-09-26] MEDS: ASPIRIN 81 MG ECTAB PO SCH (08:59)
[2025-09-26] MEDS: FLUTICASONE FUROATE 100MCG 14 PUFFS/INHALER INH SCH (08:59)
[2025-09-26] MEDS ORDERED: NON-FORMULARY MEDICATION (Fluticasone-Umeclidin-Vilanter [Trelegy Ellipta] 100-62.5-25 mcg INH SCH (09:00)
[2025-09-26] MEDS: POLYETHYLENE (MIRALAX) 17 GM PACK PO SCH (09:00)
[2025-09-26] MEDS: ROSUVASTATIN CALCIUM 20 MG TAB PO SCH (09:00)
[2025-09-26] MEDS: UMECLIDINIUM/VILANTEROL 62.5/25MCG 7 PUFFS/INHALER INH SCH (09:00)
[2025-09-26] MEDS: DOCUSATE SODIUM/SENNA 50/8.6MG TAB PO SCH (09:00)
[2025-09-26 09:47] LABS: Base Excess VBG -8.7 mEq/L; HCO3 VBG 18 mmol/L; Oxygen Saturation VBG 95.6 %; PCO2 VBG 43 mmHg (38-50); PO2 VBG 69 mmHg; pH VBG 7.24 (7.36-7.41)
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
[2025-09-26] MEDS ORDERED: ALBUTEROL 0.083% NEBU SOLN 3 ML VIAL NEB PRN (09:50)
[2025-09-26 09:53] LABS: Hematocrit (blood only) 29.6 % (37.0-47.0); Hemoglobin 8.8 g/dl (12.0-16.0); Mean Corpuscular Hemoglobin 28.4 pg (25.0-34.0); Mean Corpuscular Volume 95.5 fL (80.0-100.0); Platelet Count 365 K/uL (130-400); RDW Standard Deviation 68.7 fL (36.4-46.3); Red Blood Count 3.10 M/uL (4.20-5.40); White Blood Count 8.86 K/ul (4.8-10.8)
--- NOTE | 2025-09-26 10:05 | XRay Report ---
XR chest 1V portable CLINICAL HISTORY: dyspnea COMPARISON STUDY: 09/25/2025 FINDINGS: Heart size and pulmonary vasculature are normal. Stable mildly hyperexpanded lungs. There i s interval small area of faint reticular and patchy opacity lateral right lung apex. No other consoli dation or pleural effusion seen. No pneumothorax. IMPRESSION: Early pneumonia versus artifact right upper lobe. ACT 112: Negative or not required by law. Electronically signed by: Anthony Quiroz M.D. 09/26/2025 10:04 AM
[2025-09-26 10:21] LABS: Alanine Aminotransferase 82.0 U/L (7-52); Albumin Globulin Ratio 1.0 (0.9-2); Albumin Level 2.4 gm/dl (3.4-5.0); Alkaline Phosphatase 187.0 U/L (34-104); Anion Gap 14.0 (3-11); Bilirubin,Total 0.2 mg/dl (0.2-1.0); Blood Urea Nitrogen 39.0 mg/dl (6-23); Calcium 8.2 mg/dl (8.6-10.3); Carbon Dioxide 19.0 mmol/L (21-32); Chloride 108.0 mmol/L (98-107); Creatinine Clr Calc Pharmacy 17.7 ml/min; Globulin 2.4 gm/dl (2.5-4.0); Glucose 197.0 mg/dl (70-99(Fasting)); Potassium 5.1 mmol/L (3.5-5.1); Sodium 141.0 mmol/L (136-145); Total Protein 4.8 gm/dl (6.0-8.3)
--- NOTE | 2025-09-26 10:29 | Nephrology Consultation ---
Date of Consultation September 26, 2025 Assessment & Plan (1) TATY (acute kidney injury): Relatively oliguric. Electrolytes acceptable. Remains volume depleted. Continue IVF to encourage positive fluid balance. Document strict I/O's. Clinical presentation consistent with ATN related to sepsis with hemodynamic instability. Document strict I/O's. Monitor metabolic profile ~twice daily. Medications are appropriate for kidney function. No emergent indication for dialysis at this time. Kidneys are unobstructed on CT. Gutierrez is draining. (2) Sepsis: Attributed to UTI. BP improved with IVF. Continue fluids to encourage positive fluid balance. Remains on ceftriaxone. History of E coli resistant to fluoroquinolones in the past. Urine culture negative. Blood cultures NGTD. (3) Metabolic acidosis: Continue IV NaHCO3 replacement. Predominately AG BINA attributed to lactic acidosis. (4) Hyperkalemia: Improving with IVF and HCO3 replacement. Document I/O's. Recheck this afternoon. History of Present Illness Reason for Consultation: TATY, oliguric, mild hyper K Requesting Physician: Darlene Echols MD Attending Physician: Darlene Echols MD History of Present Illness Daniella Gandara is a 75 year-old female who was recently admitted to [facility] for compression fracture, rib fractures, and CAP. She was treated with Augmentin and doxycycline and discharged on September 06. Daniella presented to the ER at [facility] yesterday with weakness, lower abdominal pain, and a burning sensation when she urinates. She has had similar symptoms in the past with UTI. Appetite was also reported to be very poor. Daniella was hypotensive on arrival. Treatment included IV antibiotics with cefepime and isotonic fluids. Medical history is notable for COPD, smoking history, calcific vascular disease, AAA, and paroxysmal atrial fibrillation. Baseline creatinine has been ~1.28 mg/dL as recently as 09/09. Creatinine more recently 1.6-->2.29--2.34 mg/dL. Mild hyperkalemia on admission treated with calcium, dextrose, IVF and bicarbonate. Gutierrez catheter was placed. Urine output improving. Daniella was very lethargic and not oriented on my evaluation this AM. She denies pain. She has been afebrile. Gutierrez is draining clear yellow urine. Daniella has remained tachycardic with documented sinus tachycardia or atrial fibrillation. BP acceptable. Allergies Allergy/AdvReac Type Severity Reaction Status Date / Time diflunisal AdvReac Intermediate HEART RACES Verified 09/09/25 17:31 Home Medications Medication Instructions Recorded Confirmed Type blood sugar diagnostic (OneTouch #50 ea 06/02/21 04/26/25 Rx Verio test strips) apixaban 5 mg tablet (Eliquis) 5 mg PO BID 04/30/24 09/25/25 History guaifenesin 600 mg tablet, 1,200 mg (2 x 600 mg) PO Q12 12/24/24 09/25/25 Rx extended release 12 hr (Mucinex) Congestion #60 tabs polyethylene glycol 3350 17 gram 17 g PO DAILY #30 ea 12/24/24 09/25/25 Rx oral powder packet (Miralax) sennosides 8.6 mg-docusate sodium 1 tab PO QAM #30 tabs 12/24/24 09/25/25 Rx 50 mg tablet (Senokot-S) albuterol sulfate 90 mcg/actuation 2 puff inhalation Q6 PRN Shortness 12/27/24 09/25/25 Rx aerosol inhaler (Ventolin HFA) Of Breath Or Wheezing #8.5 grams aspirin 81 mg tablet,delayed 81 mg PO QAM #30 tabs 12/27/24 09/25/25 Rx release (Uri Low Dose Aspirin) cyanocobalamin (vitamin B-12) 500 1,000 mcg (2 x 500 mcg) PO QAM #60 12/27/24 09/25/25 Rx mcg tablet tabs folic acid 1 mg tablet 1 mg PO QAM #30 tabs 12/27/24 09/25/25 Rx ipratropium 0.5 mg-albuterol 3 mg 3 ml inhalation Q4H PRN shortness 12/27/24 09/25/25 Rx (2.5 mg base)/3 mL nebulization of breath #90 mL soln metformin 1,000 mg tablet 1,000 mg PO BID #60 tabs 12/27/24 09/25/25 Rx rosuvastatin 20 mg tablet 20 mg PO QAM #30 tabs 12/27/24 09/25/25 Rx furosemide 20 mg tablet 20 mg PO QAM Edema 04/26/25 09/25/25 History metoprolol tartrate 50 mg tablet 50 mg PO BID 04/26/25 09/25/25 History pantoprazole 40 mg tablet,delayed 40 mg PO QAM 04/26/25 09/25/25 History release acetaminophen 500 mg tablet 1,000 mg (2 x 500 mg) PO Q8H #0 09/10/25 09/25/25 Rx (Tylenol Extra Strength) tabs calcitonin (salmon) 200 1 spray NA DAILY 1 month #3.7 mL 09/10/25 09/25/25 Rx unit/actuation nasal spray fluticasone fur. 100 mcg-umeclid 1 inh inhalation DAILY #28 ea 09/10/25 09/25/25 Rx 62.5 mcg-vilant 25 mcg inhalat.powder (Trelegy Ellipta) glimepiride 4 mg tablet 4 mg PO DAILY #30 tabs 09/10/25 09/25/25 Rx oxycodone 5 mg tablet 5 mg PO Q4H PRN pain #30 tabs 09/10/25 09/25/25 Rx Patient History Medical History Acute blood loss anemia Hospital-acquired pneumonia Aspiration pneumonia Current smoker Anemia Sepsis Acute confusion Severe muscle deconditioning COPD exacerbation Respiratory failure Acute hypercapnic respiratory failure TATY (acute kidney injury) AMS (altered mental status) Syncope Acute UTI Acute hypotension Chronic kidney disease, stage 3a Acute kidney injury Acute exacerbation of chronic low back pain Candidiasis of mouth and esophagus DVT prophylaxis Diabetes mellitus COPD (chronic obstructive pulmonary disease) Hypertension Hyperlipidemia Acute on chronic respiratory failure with hypoxia and hypercapnia Family History Other Family history non-contributory Social History Smoking Status: Current every day smoker Tobacco Type: Cigarettes Age Started Using Tobacco: 32; Cigarettes Per Day: 10; Second Hand Exposure: Yes; Do You Dip or Chew Tobacco: No; Hx Alcohol Use: No Hx Substance Use: No Preferred Language: Upper Sorbian Communication Ability: Impaired Cyber Security Instructor Required: No Beliefs That Will Affect Care: Gnosticism marital status: Current Living Situation: Spouse and Family Current Living Situation Comment: with kyrie How many Children do You have: 3 Feels Safe at Home: Yes Assistive Devices: Oxygen - Continuous and Walker Results & Data Vital Signs (Past 12 Hours) Vital Signs Temp Pulse Pulse Resp BP Pulse Ox O2 Del Method 09/26/25 09:00 Nasal Cannula 09/26/25 07:43 36.6 C 129 H 24 113/69 100 Nasal Cannula 09/26/25 02:57 36.4 C L 108 H 24 107/68 99 Nasal Cannula 09/26/25 00:00 Nasal Cannula 09/25/25 23:57 36.4 C L 108 H 20 114/72 99 Nasal Cannula 09/25/25 23:00 94 H O2 Flow Rate 09/26/25 09:00 3 09/26/25 07:43 3 09/26/25 02:57 3 09/26/25 00:00 3 09/25/25 23:57 3 09/25/25 23:00 Laboratory Results Laboratory Results - last 24 hr 09/25/25 09/25/25 09/25/25 13:33 13:44 16:50 WBC 10.74 RBC 3.89 L Hgb 11.0 L Hct 38.4 MCV 98.7 MCH 28.3 MCHC 28.6 L RDW Std Deviation 71.9 H RDW Coeff of Dorcas 20.2 H Plt Count 456 H MPV 10.1 Immature Gran % (Auto) 2.2 Neut % (Auto) 73.1 Lymph % (Auto) 16.2 Wallace % (Auto) 6.6 Eos % (Auto) 1.2 Baso % (Auto) 0.7 Neut # (Auto) 7.84 H Lymph # (Auto) 1.74 Wallace # (Auto) 0.71 H Eos # (Auto) 0.13 Baso # (Auto) 0.08 Immature Gran # (Auto) 0.24 H Absolute Nucleated RBC 0.03 Nucleated RBC % (auto) 0.3 VBG pH VBG pCO2 VBG pO2 VBG HCO3 VBG O2 Saturation VBG Base Excess Sodium 146 H Potassium 5.2 H Chloride 111 H Carbon Dioxide 15 L Anion Gap 20 H BUN 35 H Creatinine 2.29 H Est Cr Clr Drug Dosing 18.1 eGFR 22.01 BUN/Creatinine Ratio 15.3 Glucose 86 POC Glucose 46 L* Lactate 3.3 H* Calcium 9.0 Total Bilirubin 0.3 AST 108 H ALT 122 H Alkaline Phosphatase 231 H Total Protein 5.8 L Albumin 3.0 L Globulin 2.8 Albumin/Globulin Ratio 1.1 Lipase 21 Urine Color Yellow Urine Appearance Cloudy A Urine pH 5.0 Ur Specific [place] 1.023 Urine Protein 2+ H Urine Glucose (UA) Negative Urine Ketones Negative Urine Blood Negative Urine Nitrite Negative Urine Bilirubin Negative Urine Urobilinogen Negative Ur Leukocyte Esterase 1+ H Urine WBC (Auto) 11-20 H Urine RBC (Auto) 0-2 U Hyaline Cast (Auto) 11-20 H U Epithel Cells (Auto) 3-5 H Urine Bacteria (Auto) 1+ H Hyaline Casts Present A Granular Casts Present A Urine Yeast Present A Ur Random Creatinine Ur Random Sodium Urine Comment 09/25/25 09/25/25 09/25/25 17:07 17:37 20:47 WBC RBC Hgb Hct MCV MCH MCHC RDW Std Deviation RDW Coeff of Dorcas Plt Count MPV Immature Gran % (Auto) Neut % (Auto) Lymph % (Auto) Wallace % (Auto) Eos % (Auto) Baso % (Auto) Neut # (Auto) Lymph # (Auto) Wallace # (Auto) Eos # (Auto) Baso # (Auto) Immature Gran # (Auto) Absolute Nucleated RBC Nucleated RBC % (auto) VBG pH VBG pCO2 VBG pO2 VBG HCO3 VBG O2 Saturation VBG Base Excess Sodium Potassium Chloride Carbon Dioxide Anion Gap BUN Creatinine Est Cr Clr Drug Dosing eGFR BUN/Creatinine Ratio Glucose POC Glucose 43 L* 158 H 163 H Lactate Calcium Total Bilirubin AST ALT Alkaline Phosphatase Total Protein Albumin Globulin Albumin/Globulin Ratio Lipase Urine Color Urine Appearance Urine pH Ur Specific [place] Urine Protein Urine Glucose (UA) Urine Ketones Urine Blood Urine Nitrite Urine Bilirubin Urine Urobilinogen Ur Leukocyte Esterase Urine WBC (Auto) Urine RBC (Auto) U Hyaline Cast (Auto) U Epithel Cells (Auto) Urine Bacteria (Auto) Hyaline Casts Granular Casts Urine Yeast Ur Random Creatinine Ur Random Sodium Urine Comment 09/25/25 09/26/25 09/26/25 20:59 00:59 01:23 WBC RBC Hgb Hct MCV MCH MCHC RDW Std Deviation RDW Coeff of Dorcas Plt Count MPV Immature Gran % (Auto) Neut % (Auto) Lymph % (Auto) Wallace % (Auto) Eos % (Auto) Baso % (Auto) Neut # (Auto) Lymph # (Auto) Wallace # (Auto) Eos # (Auto) Baso # (Auto) Immature Gran # (Auto) Absolute Nucleated RBC Nucleated RBC % (auto) VBG pH VBG pCO2 VBG pO2 VBG HCO3 VBG O2 Saturation VBG Base Excess Sodium 144 Potassium 5.6 H Chloride 114 H Carbon Dioxide 16 L Anion Gap 14 H BUN 38 H Creatinine 2.24 H Est Cr Clr Drug Dosing 18.5 eGFR 22.60 BUN/Creatinine Ratio 17.0 Glucose 151 H POC Glucose 92 185 H Lactate Calcium 8.1 L Total Bilirubin AST ALT Alkaline Phosphatase Total Protein Albumin Globulin Albumin/Globulin Ratio Lipase Urine Color Urine Appearance Urine pH Ur Specific [place] Urine Protein Urine Glucose (UA) Urine Ketones Urine Blood Urine Nitrite Urine Bilirubin Urine Urobilinogen Ur Leukocyte Esterase Urine WBC (Auto) Urine RBC (Auto) U Hyaline Cast (Auto) U Epithel Cells (Auto) Urine Bacteria (Auto) Hyaline Casts Granular Casts Urine Yeast Ur Random Creatinine Ur Random Sodium Urine Comment 09/26/25 09/26/25 09/26/25 01:57 02:00 02:37 WBC RBC Hgb Hct MCV MCH MCHC RDW Std Deviation RDW Coeff of Dorcas Plt Count MPV Immature Gran % (Auto) Neut % (Auto) Lymph % (Auto) Wallace % (Auto) Eos % (Auto) Baso % (Auto) Neut # (Auto) Lymph # (Auto) Wallace # (Auto) Eos # (Auto) Baso # (Auto) Immature Gran # (Auto) Absolute Nucleated RBC Nucleated RBC % (auto) VBG pH VBG pCO2 VBG pO2 VBG HCO3 VBG O2 Saturation VBG Base Excess Sodium 144 Potassium 4.6 Chloride 113 H Carbon Dioxide 15 L Anion Gap 16 H BUN 41 H Creatinine 2.30 H Est Cr Clr Drug Dosing 18.0 eGFR 21.90 BUN/Creatinine Ratio 17.8 Glucose 77 POC Glucose 102 H 42 L* Lactate Calcium 8.6 Total Bilirubin AST ALT Alkaline Phosphatase Total Protein Albumin Globulin Albumin/Globulin Ratio Lipase Urine Color Urine Appearance Urine pH Ur Specific [place] Urine Protein Urine Glucose (UA) Urine Ketones Urine Blood Urine Nitrite Urine Bilirubin Urine Urobilinogen Ur Leukocyte Esterase Urine WBC (Auto) Urine RBC (Auto) U Hyaline Cast (Auto) U Epithel Cells (Auto) Urine Bacteria (Auto) Hyaline Casts Granular Casts Urine Yeast Ur Random Creatinine Ur Random Sodium Urine Comment 09/26/25 09/26/25 09/26/25 02:58 03:44 05:12 WBC RBC Hgb Hct MCV MCH MCHC RDW Std Deviation RDW Coeff of Dorcas Plt Count MPV Immature Gran % (Auto) Neut % (Auto) Lymph % (Auto) Wallace % (Auto) Eos % (Auto) Baso % (Auto) Neut # (Auto) Lymph # (Auto) Wallace # (Auto) Eos # (Auto) Baso # (Auto) Immature Gran # (Auto) Absolute Nucleated RBC Nucleated RBC % (auto) VBG pH VBG pCO2 VBG pO2 VBG HCO3 VBG O2 Saturation VBG Base Excess Sodium Potassium Chloride Carbon Dioxide Anion Gap BUN Creatinine Est Cr Clr Drug Dosing eGFR BUN/Creatinine Ratio Glucose POC Glucose 197 H 110 H 77 Lactate Calcium Total Bilirubin AST ALT Alkaline Phosphatase Total Protein Albumin Globulin Albumin/Globulin Ratio Lipase Urine Color Urine Appearance Urine pH Ur Specific [place] Urine Protein Urine Glucose (UA) Urine Ketones Urine Blood Urine Nitrite Urine Bilirubin Urine Urobilinogen Ur Leukocyte Esterase Urine WBC (Auto) Urine RBC (Auto) U Hyaline Cast (Auto) U Epithel Cells (Auto) Urine Bacteria (Auto) Hyaline Casts Granular Casts Urine Yeast Ur Random Creatinine Ur Random Sodium Urine Comment 09/26/25 09/26/25 09/26/25 06:20 07:00 07:45 WBC RBC Hgb Hct MCV MCH MCHC RDW Std Deviation RDW Coeff of Dorcas Plt Count MPV Immature Gran % (Auto) Neut % (Auto) Lymph % (Auto) Wallace % (Auto) Eos % (Auto) Baso % (Auto) Neut # (Auto) Lymph # (Auto) Wallace # (Auto) Eos # (Auto) Baso # (Auto) Immature Gran # (Auto) Absolute Nucleated RBC Nucleated RBC % (auto) VBG pH VBG pCO2 VBG pO2 VBG HCO3 VBG O2 Saturation VBG Base Excess Sodium Potassium Chloride Carbon Dioxide Anion Gap BUN Creatinine Est Cr Clr Drug Dosing eGFR BUN/Creatinine Ratio Glucose POC Glucose 75 233 H Lactate Calcium Total Bilirubin AST ALT Alkaline Phosphatase Total Protein Albumin Globulin Albumin/Globulin Ratio Lipase Urine Color Urine Appearance Urine pH Ur Specific [place] Urine Protein Urine Glucose (UA) Urine Ketones Urine Blood Urine Nitrite Urine Bilirubin Urine Urobilinogen Ur Leukocyte Esterase Urine WBC (Auto) Urine RBC (Auto) U Hyaline Cast (Auto) U Epithel Cells (Auto) Urine Bacteria (Auto) Hyaline Casts Granular Casts Urine Yeast Ur Random Creatinine 86.8 Ur Random Sodium 22 Urine Comment 09/26/25 09/26/25 09:01 09:38 WBC 8.86 RBC 3.10 L Hgb 8.8 L Hct 29.6 L MCV 95.5 MCH 28.4 MCHC 29.7 L RDW Std Deviation 68.7 H RDW Coeff of Dorcas 19.9 H Plt Count 365 MPV 10.2 Immature Gran % (Auto) Neut % (Auto) Lymph % (Auto) Wallace % (Auto) Eos % (Auto) Baso % (Auto) Neut # (Auto) Lymph # (Auto) Wallace # (Auto) Eos # (Auto) Baso # (Auto) Immature Gran # (Auto) Absolute Nucleated RBC 0.04 Nucleated RBC % (auto) 0.5 VBG pH 7.24 L VBG pCO2 43 VBG pO2 69 VBG HCO3 18 VBG O2 Saturation 95.6 VBG Base Excess -8.7 Sodium 141 Potassium 5.1 Chloride 108 H Carbon Dioxide 19 L Anion Gap 14 H BUN 39 H Creatinine 2.34 H Est Cr Clr Drug Dosing 17.7 eGFR 21.45 BUN/Creatinine Ratio 16.7 Glucose 197 H POC Glucose 201 H Lactate Calcium 8.2 L Total Bilirubin 0.2 AST 63 H ALT 82 H Alkaline Phosphatase 187 H Total Protein 4.8 L D Albumin 2.4 L Globulin 2.4 L Albumin/Globulin Ratio 1.0 Lipase Urine Color Urine Appearance Urine pH Ur Specific [place] Urine Protein Urine Glucose (UA) Urine Ketones Urine Blood Urine Nitrite Urine Bilirubin Urine Urobilinogen Ur Leukocyte Esterase Urine WBC (Auto) Urine RBC (Auto) U Hyaline Cast (Auto) U Epithel Cells (Auto) Urine Bacteria (Auto) Hyaline Casts Granular Casts Urine Yeast Ur Random Creatinine Ur Random Sodium Urine Comment Diagnostic Findings CT Abdomen and Pelvis Without Intravenous Contrast (09/25/25) COMPARISON: 12/26/2024 FINDINGS: Limitations: . Lung bases: No abnormality noted. Pleural space: No visualized pleural effusion or pneumothorax. Heart: No abnormality noted. Mediastinum: No abnormality noted. ABDOMEN: Liver: Lack of intravenous contrast limits detection of some masses. No abnormality noted. Gallbladder and bile ducts: Cholecystectomy. No ductal dilation or stone noted. Pancreas: No pancreatic mass, calcification, inflammation or ductal dilation noted. Spleen: Multiple granulomata noted in the spleen. Adrenals: Stable low-density left adrenal nodule typical of adenoma. No further assessment required. The right appears normal. Kidneys and ureters: No abnormality noted. No stones. No hydronephrosis. No significant perinephric fluid. Stomach and bowel: Aspiratory motion limits assessment of some intestinal loops. Left colonic diverticulosis. No diverticulitis. No obstruction. PELVIS: Appendix: No findings to suggest acute appendicitis. Bladder: Appears normal for the degree of filling. No stones or inflammation. No large mass. Masses may not be detected in the absence of opacification. Reproductive: Hysterectomy. ABDOMEN and PELVIS: Intraperitoneal space: Trace amounts of fluid in the pelvis. No abscess. No free air. Bones/joints: Degenerative changes noted throughout the spine. No acute osseous abnormality seen. Soft tissues: No acute abnormality noted. Vasculature: There is diffuse moderate to severe atherosclerosis of the aorta and branches particular the superior mesenteric artery. Stable distal aneurysm of 4.3 cm. No dissection or hemorrhage. Lymph nodes: No pathologically enlarged lymph nodes. IMPRESSION: 1. No acute abnormality noted. 2. Some bowel loops are poorly assessed due to motion. Diverticulosis without diverticulitis or obstruction. 3. Stable 4.3 cm distal abdominal aortic aneurysm without hemorrhage. XR chest 1V portable COMPARISON STUDY: 09/25/2025 FINDINGS: Heart size and pulmonary vasculature are normal. Stable mildly hyperexpanded lungs. There is interval small area of faint reticular and patchy opacity lateral right lung apex. No other consolidation or pleural effusion seen. No pneumothorax. IMPRESSION: Early pneumonia versus artifact right upper lobe. PG Care Time/CCT Total # of Minutes Spent Total Time Spent with Patient: Total time spent is greater than 50% in coordination of care (as documented) at patient's floor/unit and/or counseling patient: Coding Level of Care Code 50446 IN/OBS CONSULT LVL 4,60M Diagnoses TATY (acute kidney injury) N17.9 Sepsis A41.9 Sepsis type: sepsis due to unspecified organism Metabolic acidosis E87.20 Hyperkalemia E87.5 (2) Sepsis Sepsis type: sepsis due to unspecified organism
[2025-09-26] MEDS: CALCITONIN SALMON NA 200 IU/AC 3.7 ML BTL SCH (10:32)
[2025-09-26] MEDS: STAT IV/IM STA (10:36)
[2025-09-26] MEDS ORDERED: SODIUM ZIRCONIUM CYCLOSILICATE 10 GM PACKET PO SCH (11:00)
[2025-09-26] MEDS ORDERED: 4.5GM X1 IV STA (11:10)
[2025-09-26] MEDS ORDERED: PIPERACILLIN/TAZOBACTAM 4.5 GM/100 ML BAG IV SCH (11:15)
[2025-09-26] MEDS: ALBUT/IPRATROP 3MG/0.5MG NEB 3 ML VIAL NEB SCH (11:26)
--- NOTE | 2025-09-26 11:37 | XCELERA ---
[id number]
[2025-09-26] MEDS: METOPROLOL TARTRATE 1 MG/ML VIAL IV SCH (11:40)
--- NOTE | 2025-09-26 11:47 | Electrocardiogram Report ---
Test Reason : Blood Pressure : */* mmHG Vent. Rate : 187 BPM Atrial Rate : 182 BPM P-R Int : 136 ms QRS Dur : 72 ms QT Int : 182 ms P-R-T Axes : 78 17 105 degrees QTcB Int : 321 ms Poor data quality, interpretation may be adversely affected Sinus tachycardia Low voltage QRS Possible Inferior infarct , age undetermined Cannot rule out Anterior infarct , age undetermined Abnormal ECG When compared with ECG of 09-Sep-2025 16:45, Minimal criteria for Anterior infarct are now Present T wave amplitude has decreased in Inferior leads Nonspecific T wave abnormality now evident in Anterolateral leads Confirmed by David Shaikh ([id number]) on 09/26/2025 11:47:05 AM Referred By: REFERRED SELF Confirmed By: David Shaikh
[2025-09-26] MEDS: CEFEPIME 2000MG 2,000 MG/20 ML SYR IV SCH (11:54)
[2025-09-26] MEDS: AZITHROMYCIN 500 MG/255 ML BAG IV SCH (11:54)
--- NOTE | 2025-09-26 11:56 | Electrocardiogram Report ---
Test Reason : Blood Pressure : */* mmHG Vent. Rate : 109 BPM Atrial Rate : 109 BPM P-R Int : 134 ms QRS Dur : 76 ms QT Int : 328 ms P-R-T Axes : 74 1 75 degrees QTcB Int : 441 ms Sinus tachycardia Low voltage QRS Possible Inferior infarct (cited on or before 27-Sep-2015) Abnormal ECG When compared with ECG of 25-Sep-2025 13:25, (unconfirmed) Minimal criteria for Anterior infarct are no longer Present Non-specific change in ST segment in Lateral leads T wave amplitude has increased in Inferior leads Nonspecific T wave abnormality no longer evident in Anterolateral leads Confirmed by David Shaikh ([id number]) on 09/26/2025 11:56:05 AM Referred By: REFERRED SELF Confirmed By: David Shaikh
[2025-09-26 17:51] LABS: Anion Gap 17.0 (3-11); Calcium 7.9 mg/dl (8.6-10.3); Carbon Dioxide 18.0 mmol/L (21-32); Chloride 104.0 mmol/L (98-107); Potassium 5.2 mmol/L (3.5-5.1); Sodium 139.0 mmol/L (136-145)
[2025-09-26 18:00] LABS: Blood Urea Nitrogen 41.0 mg/dl (6-23); Creatinine Clr Calc Pharmacy 16.8 ml/min; Glucose 329.0 mg/dl (70-99(Fasting))
[2025-09-26] MEDS ORDERED: STAT IV/IM STA (19:05)
[2025-09-26] MEDS: SODIUM BICARBONATE 8.4% 150 MEQ in WATER, STERILE 1,000 ML IV SCH (19:33)
[2025-09-26] MEDS: INSULIN ASPART PER UNIT CHARGE SC SCH (20:57)
[2025-09-27] MEDS: CEFEPIME 1000MG 1,000 MG/10 ML SYR IV SCH (00:13)
[2025-09-27] MEDS ORDERED: DO NOT ADMINISTER PNEUMOCOCCAL VACCINE PRN (07:19)
[2025-09-27] MEDS ORDERED: PHARMACY GLYCEMIC MGMT CONSULT PRN (07:19)
[2025-09-27] MEDS ORDERED: DO NOT ADMINISTER FLU VACCINE PRN (07:19)
[2025-09-27 07:32] LABS: Alanine Aminotransferase 65.0 U/L (7-52); Albumin Globulin Ratio 1.2 (0.9-2); Albumin Level 2.7 gm/dl (3.4-5.0); Alkaline Phosphatase 159.0 U/L (34-104); Anion Gap 14.0 (3-11); Bilirubin,Total 0.3 mg/dl (0.2-1.0); Blood Urea Nitrogen 46.0 mg/dl (6-23); Calcium 8.1 mg/dl (8.6-10.3); Carbon Dioxide 27.0 mmol/L (21-32); Chloride 101.0 mmol/L (98-107); Creatinine Clr Calc Pharmacy 18.3 ml/min; Globulin 2.3 gm/dl (2.5-4.0); Glucose 256.0 mg/dl (70-99(Fasting)); Potassium 4.8 mmol/L (3.5-5.1); Sodium 142.0 mmol/L (136-145); Total Protein 5.0 gm/dl (6.0-8.3)
[2025-09-27 07:45] LABS: Hematocrit (blood only) 29.1 % (37.0-47.0); Hemoglobin 9.3 g/dl (12.0-16.0); Mean Corpuscular Hemoglobin 29.3 pg (25.0-34.0); Mean Corpuscular Volume 91.8 fL (80.0-100.0); Platelet Count 385 K/uL (130-400); RDW Standard Deviation 61.6 fL (36.4-46.3); Red Blood Count 3.17 M/uL (4.20-5.40); White Blood Count 9.95 K/ul (4.8-10.8)
[2025-09-27 07:47] LABS: Base Excess VBG 0.6 mEq/L; HCO3 VBG 27 mmol/L; Oxygen Saturation VBG < 60.0 %; PCO2 VBG 53 mmHg (38-50); PO2 VBG 32 mmHg; pH VBG 7.32 (7.36-7.41)
[2025-09-27 07:51] LABS: Magnesium 1.3 mg/dl (1.7-2.4)
[2025-09-27 08:06] LABS: Anisocytosis Present; Basophilic Stippling 1+; Immature Granulocytes # (auto) 0.15 K/uL (0.01-0.20); Immature Granulocytes % (auto) 1.5 %; Ovalocytes 1+; Polychromasia 1+; Tear Drop Cells 1+
[2025-09-27] MEDS: LANTUS PER UNIT CHARGE SC ONE (08:18)
[2025-09-27] MEDS: ROSUVASTATIN CALCIUM 10 MG TAB PO SCH (08:20)
--- NOTE | 2025-09-27 08:37 | XRay Report ---
XR chest 1V portable CLINICAL HISTORY: Respiratory failure. COMPARISON STUDY: Chest CT December 15, 2024. Chest radiograph September 26, 2025. FINDINGS: This exam is mildly compromised given difficulty positioning. There is no pneumothorax. Francisco nting of left costophrenic angle is noted. Underlying emphysema is present. There is no consolidation to suggest pneumonia. There is no evidence for pulmonary edema. Cardiomediastinal silhouette is stab le. IMPRESSION: 1. Blunting of left costophrenic angle. This may be due to epicardial fat pad or a trace left pleural effusion. 2. Emphysema. No consolidation to suggest pneumonia. 3. Rotated study. ACT 112: Negative or not required by law. Electronically signed by: Cheng Arevalo M.D. 09/27/2025 8:35 AM
--- NOTE | 2025-09-27 08:40 | Nephrology Consultation ---
Date of Consultation September 27, 2025 Assessment & Plan (1) TATY (acute kidney injury): Relatively oliguric but improving with supportive care. Electrolytes acceptable. Remains volume depleted. Continue IVF to encourage positive fluid balance. Document strict I/O's. Clinical presentation consistent with ATN related to sepsis with hemodynamic instability. Document strict I/O's. Monitor metabolic profile daily. Medications are appropriate for kidney function. No emergent indication for dialysis at this time. Kidneys are unobstructed on CT. Gutierrez is draining. (2) Sepsis: Attributed to UTI. BP improved with IVF. Continue fluids to encourage positive fluid balance. Ceftriaxone-->Cefepime. Seems unlikely that Cefepime is contributing to encephalopathy but this remains a potential contributor. History of E coli resistant to fluoroquinolones in the past. Urine culture negative. Blood cultures NGTD. (3) Metabolic acidosis: Improved with IV NaHCO3 replacement. Predominately AG BINA attributed to lactic acidosis. LA improved with supportive care. (4) Hyperkalemia: Improved with IVF and HCO3 replacement. Document I/O's. History of Present Illness Reason for Consultation: TATY, oliguric, mild hyper K Requesting Physician: Darlene Echols MD Attending Physician: Anibal Card MD History of Present Illness Daniella Gandara is a 75 year-old female who was recently admitted to [facility] for compression fracture, rib fractures, and CAP. She was treated with Augmentin and doxycycline and discharged on September 06. Daniella presented to the ER at [facility] 09/25/25 with weakness, lower abdominal pain, and a burning sensation when she urinates. She has had similar symptoms in the past with UTI. Appetite was also reported to be very poor. Daniella was hypotensive on arrival. Treatment included IV antibiotics with cefepime and isotonic fluids. Medical history is notable for COPD, smoking history, calcific vascular disease, AAA, and paroxysmal atrial fibrillation. Baseline creatinine has been ~1.28 mg/dL as recently as 09/09/25. Creatinine more recently 1.6-->2.29--2.34 mg/dL. Mild hyperkalemia on admission treated with calcium, dextrose, IVF and bicarbonate. Gutierrez catheter was placed. Urine output imrpoved with IVf. Daniella was very lethargic and not oriented on my evaluation yesterday and this AM. She has been afebrile. Gutierrez is draining clear yellow urine. Daniella has remained tachycardic with documented sinus tachycardia or atrial fibrillation. BP acceptable. Lactic acidosis improving with supportive care. Allergies Allergy/AdvReac Type Severity Reaction Status Date / Time diflunisal AdvReac Intermediate HEART RACES Verified 09/09/25 17:31 Home Medications Medication Instructions Recorded Confirmed Type blood sugar diagnostic (OneTouch #50 ea 06/02/21 04/26/25 Rx Verio test strips) apixaban 5 mg tablet (Eliquis) 5 mg PO BID 04/30/24 09/25/25 History guaifenesin 600 mg tablet, 1,200 mg (2 x 600 mg) PO Q12 12/24/24 09/25/25 Rx extended release 12 hr (Mucinex) Congestion #60 tabs polyethylene glycol 3350 17 gram 17 g PO DAILY #30 ea 12/24/24 09/25/25 Rx oral powder packet (Miralax) sennosides 8.6 mg-docusate sodium 1 tab PO QAM #30 tabs 12/24/24 09/25/25 Rx 50 mg tablet (Senokot-S) albuterol sulfate 90 mcg/actuation 2 puff inhalation Q6 PRN Shortness 12/27/24 09/25/25 Rx aerosol inhaler (Ventolin HFA) Of Breath Or Wheezing #8.5 grams aspirin 81 mg tablet,delayed 81 mg PO QAM #30 tabs 12/27/24 09/25/25 Rx release (Uri Low Dose Aspirin) cyanocobalamin (vitamin B-12) 500 1,000 mcg (2 x 500 mcg) PO QAM #60 12/27/24 09/25/25 Rx mcg tablet tabs folic acid 1 mg tablet 1 mg PO QAM #30 tabs 12/27/24 09/25/25 Rx ipratropium 0.5 mg-albuterol 3 mg 3 ml inhalation Q4H PRN shortness 12/27/24 09/25/25 Rx (2.5 mg base)/3 mL nebulization of breath #90 mL soln metformin 1,000 mg tablet 1,000 mg PO BID #60 tabs 12/27/24 09/25/25 Rx rosuvastatin 20 mg tablet 20 mg PO QAM #30 tabs 12/27/24 09/25/25 Rx furosemide 20 mg tablet 20 mg PO QAM Edema 04/26/25 09/25/25 History metoprolol tartrate 50 mg tablet 50 mg PO BID 04/26/25 09/25/25 History pantoprazole 40 mg tablet,delayed 40 mg PO QAM 04/26/25 09/25/25 History release acetaminophen 500 mg tablet 1,000 mg (2 x 500 mg) PO Q8H #0 09/10/25 09/25/25 Rx (Tylenol Extra Strength) tabs calcitonin (salmon) 200 1 spray NA DAILY 1 month #3.7 mL 09/10/25 09/25/25 Rx unit/actuation nasal spray fluticasone fur. 100 mcg-umeclid 1 inh inhalation DAILY #28 ea 09/10/25 09/25/25 Rx 62.5 mcg-vilant 25 mcg inhalat.powder (Trelegy Ellipta) glimepiride 4 mg tablet 4 mg PO DAILY #30 tabs 09/10/25 09/25/25 Rx oxycodone 5 mg tablet 5 mg PO Q4H PRN pain #30 tabs 09/10/25 09/25/25 Rx Patient History Medical History Acute blood loss anemia Hospital-acquired pneumonia Aspiration pneumonia Current smoker Anemia Sepsis Acute confusion Severe muscle deconditioning COPD exacerbation Respiratory failure Acute hypercapnic respiratory failure TATY (acute kidney injury) AMS (altered mental status) Syncope Acute UTI Acute hypotension Chronic kidney disease, stage 3a Acute kidney injury Acute exacerbation of chronic low back pain Candidiasis of mouth and esophagus DVT prophylaxis Diabetes mellitus COPD (chronic obstructive pulmonary disease) Hypertension Hyperlipidemia Acute on chronic respiratory failure with hypoxia and hypercapnia Family History Other Family history non-contributory Social History Smoking Status: Current every day smoker Tobacco Type: Cigarettes Age Started Using Tobacco: 32; Cigarettes Per Day: 10; Second Hand Exposure: Yes; Do You Dip or Chew Tobacco: No; Hx Alcohol Use: No Hx Substance Use: No Preferred Language: Austrian Communication Ability: Impaired Manager Equipment Required: No Beliefs That Will Affect Care: Worship marital status: Current Living Situation: Spouse and Family Current Living Situation Comment: with kyrie How many Children do You have: 3 Feels Safe at Home: Yes Assistive Devices: Oxygen - Continuous and Walker Review of Systems Review of Systems: Unobtainable due to cognitive status Physical Exam Physical Exam: Constitutional: ill appearing, mental status alte red Eyes: + anicteric sc lerae; no conjunct ival abnormality ENMT: oral mucous mem branes dry Neck: normal visual i nspection and trac hea midline Respiratory: no respiratory distress, tachypne ic Auscultation: + rales Cardiovascular: Rate/Rhythm: ta chycardic Heart So unds: normal S1 an d normal S2 Extrem ities: no edema Musculoskeletal: Extremities: no cyanosis and no c lubbing Skin: decreased turgo r; no rash Neurologic: Motor/Sensory: no tremor and no a sterixis Psychiatric: Orientation: no alert or oriented Results & Data Vital Signs (Past 12 Hours) Vital Signs Temp Pulse Pulse Resp BP BP Pulse Ox 09/27/25 07:05 36.5 C 93 H 24 140/71 96 09/27/25 06:50 99 H 20 91 09/27/25 06:19 112 H 122/75 09/27/25 03:32 36.8 C 106 H 16 114/71 93 09/27/25 02:55 101 H 22 92 09/27/25 00:13 102 H 09/27/25 00:13 111 H 131/73 09/26/25 22:57 36.4 C L 78 18 146/74 H 94 09/26/25 22:45 104 H 20 96 09/26/25 21:42 111 H O2 Del Method O2 Flow Rate 09/27/25 07:05 Nasal Cannula 3 09/27/25 06:50 Nasal Cannula 4 09/27/25 06:19 09/27/25 03:32 Nasal Cannula 4.0 09/27/25 02:55 Nasal Cannula 3 09/27/25 00:13 09/27/25 00:13 09/26/25 22:57 Nasal Cannula 3 09/26/25 22:45 Nasal Cannula 3 09/26/25 21:42 Laboratory Results Laboratory Results - last 24 hr 09/26/25 09/26/25 09/26/25 09:38 09:39 11:19 WBC RBC Hgb Hct MCV MCH MCHC RDW Std Deviation RDW Coeff of Dorcas Plt Count MPV Immature Gran % (Auto) Neut % (Auto) Lymph % (Auto) [place] % (Auto) Eos % (Auto) Baso % (Auto) Neut # (Auto) Lymph # (Auto) [place] # (Auto) Eos # (Auto) Baso # (Auto) Immature Gran # (Auto) Absolute Nucleated RBC Nucleated RBC % (auto) Polychromasia Basophilic Stippling Anisocytosis Tear Drop Cells Ovalocytes VBG pH VBG pCO2 VBG pO2 VBG HCO3 VBG O2 Saturation VBG Base Excess Sodium 141 Potassium 5.1 Chloride 108 H Carbon Dioxide 19 L Anion Gap 14 H BUN 39 H Creatinine 2.34 H Est Cr Clr Drug Dosing 17.7 eGFR 21.45 BUN/Creatinine Ratio 16.7 Glucose 197 H POC Glucose 215 H Lactate Calcium 8.2 L Phosphorus Magnesium Total Bilirubin 0.2 AST 63 H ALT 82 H Alkaline Phosphatase 187 H Total Protein 4.8 L D Albumin 2.4 L Globulin 2.4 L Albumin/Globulin Ratio 1.0 Procalcitonin 65.50 H 09/26/25 09/26/25 09/26/25 13:11 17:08 17:09 WBC RBC Hgb Hct MCV MCH MCHC RDW Std Deviation RDW Coeff of Dorcas Plt Count MPV Immature Gran % (Auto) Neut % (Auto) Lymph % (Auto) [place] % (Auto) Eos % (Auto) Baso % (Auto) Neut # (Auto) Lymph # (Auto) [place] # (Auto) Eos # (Auto) Baso # (Auto) Immature Gran # (Auto) Absolute Nucleated RBC Nucleated RBC % (auto) Polychromasia Basophilic Stippling Anisocytosis Tear Drop Cells Ovalocytes VBG pH VBG pCO2 VBG pO2 VBG HCO3 VBG O2 Saturation VBG Base Excess Sodium Potassium Chloride Carbon Dioxide Anion Gap BUN Creatinine Est Cr Clr Drug Dosing eGFR BUN/Creatinine Ratio Glucose POC Glucose 258 H 375 H* 312 H* Lactate Calcium Phosphorus Magnesium Total Bilirubin AST ALT Alkaline Phosphatase Total Protein Albumin Globulin Albumin/Globulin Ratio Procalcitonin 09/26/25 09/26/25 09/26/25 17:20 20:08 20:09 WBC RBC Hgb Hct MCV MCH MCHC RDW Std Deviation RDW Coeff of Dorcas Plt Count MPV Immature Gran % (Auto) Neut % (Auto) Lymph % (Auto) [place] % (Auto) Eos % (Auto) Baso % (Auto) Neut # (Auto) Lymph # (Auto) [place] # (Auto) Eos # (Auto) Baso # (Auto) Immature Gran # (Auto) Absolute Nucleated RBC Nucleated RBC % (auto) Polychromasia Basophilic Stippling Anisocytosis Tear Drop Cells Ovalocytes VBG pH VBG pCO2 VBG pO2 VBG HCO3 VBG O2 Saturation VBG Base Excess Sodium 139 Potassium 5.2 H Chloride 104 Carbon Dioxide 18 L Anion Gap 17 H BUN 41 H Creatinine 2.47 H Est Cr Clr Drug Dosing 16.8 eGFR 20.10 BUN/Creatinine Ratio 16.6 Glucose 329 H* POC Glucose 346 H* 336 H* Lactate Calcium 7.9 L Phosphorus Magnesium Total Bilirubin AST ALT Alkaline Phosphatase Total Protein Albumin Globulin Albumin/Globulin Ratio Procalcitonin 09/26/25 09/27/25 09/27/25 23:38 04:25 06:37 WBC 9.95 RBC 3.17 L Hgb 9.3 L Hct 29.1 L MCV 91.8 MCH 29.3 MCHC 32.0 RDW Std Deviation 61.6 H RDW Coeff of Dorcas 19.2 H Plt Count 385 MPV 10.8 Immature Gran % (Auto) 1.5 Neut % (Auto) 91.4 Lymph % (Auto) 5.7 [place] % (Auto) 1.3 Eos % (Auto) 0.0 Baso % (Auto) 0.1 Neut # (Auto) 9.09 H Lymph # (Auto) 0.57 L [place] # (Auto) 0.13 Eos # (Auto) 0.00 Baso # (Auto) 0.01 Immature Gran # (Auto) 0.15 Absolute Nucleated RBC 0.05 Nucleated RBC % (auto) 0.5 Polychromasia 1+ Basophilic Stippling 1+ Anisocytosis Present Tear Drop Cells 1+ Ovalocytes 1+ VBG pH VBG pCO2 VBG pO2 VBG HCO3 VBG O2 Saturation VBG Base Excess Sodium 142 Potassium 4.8 Chloride 101 Carbon Dioxide 27 Anion Gap 14 H BUN 46 H Creatinine 2.26 H Est Cr Clr Drug Dosing 18.3 eGFR 22.36 BUN/Creatinine Ratio 20.4 H Glucose 256 H POC Glucose 238 H 259 H Lactate Calcium 8.1 L Phosphorus 4.3 Magnesium 1.3 L Total Bilirubin 0.3 AST 34 ALT 65 H Alkaline Phosphatase 159 H Total Protein 5.0 L Albumin 2.7 L Globulin 2.3 L Albumin/Globulin Ratio 1.2 Procalcitonin 32.70 H 09/27/25 09/27/25 07:09 07:36 WBC RBC Hgb Hct MCV MCH MCHC RDW Std Deviation RDW Coeff of Dorcas Plt Count MPV Immature Gran % (Auto) Neut % (Auto) Lymph % (Auto) [place] % (Auto) Eos % (Auto) Baso % (Auto) Neut # (Auto) Lymph # (Auto) [place] # (Auto) Eos # (Auto) Baso # (Auto) Immature Gran # (Auto) Absolute Nucleated RBC Nucleated RBC % (auto) Polychromasia Basophilic Stippling Anisocytosis Tear Drop Cells Ovalocytes VBG pH 7.32 L VBG pCO2 53 H VBG pO2 32 VBG HCO3 27 VBG O2 Saturation < 60.0 VBG Base Excess 0.6 Sodium Potassium Chloride Carbon Dioxide Anion Gap BUN Creatinine Est Cr Clr Drug Dosing eGFR BUN/Creatinine Ratio Glucose POC Glucose 270 H Lactate 1.3 Calcium Phosphorus Magnesium Total Bilirubin AST ALT Alkaline Phosphatase Total Protein Albumin Globulin Albumin/Globulin Ratio Procalcitonin Diagnostic Findings Diagnostic Findings CT Abdomen and Pelvis Without Intravenous Contrast (09/25/25) COMPARISON: 12/26/2024 FINDINGS: Limitations: . Lung bases: No abnormality noted. Pleural space: No visualized pleural effusion or pneumothorax. Heart: No abnormality noted. Mediastinum: No abnormality noted. ABDOMEN: Liver: Lack of intravenous contrast limits detection of some masses. No abnormality noted. Gallbladder and bile ducts: Cholecystectomy. No ductal dilation or stone noted. Pancreas: No pancreatic mass, calcification, inflammation or ductal dilation noted. Spleen: Multiple granulomata noted in the spleen. Adrenals: Stable low-density left adrenal nodule typical of adenoma. No further assessment required. The right appears normal. Kidneys and ureters: No abnormality noted. No stones. No hydronephrosis. No significant perinephric fluid. Stomach and bowel: Aspiratory motion limits assessment of some intestinal loops. Left colonic diverticulosis. No diverticulitis. No obstruction. PELVIS: Appendix: No findings to suggest acute appendicitis. Bladder: Appears normal for the degree of filling. No stones or inflammation. No large mass. Masses may not be detected in the absence of opacification. Reproductive: Hysterectomy. ABDOMEN and PELVIS: Intraperitoneal space: Trace amounts of fluid in the pelvis. No abscess. No free air. Bones/joints: Degenerative changes noted throughout the spine. No acute osseous abnormality seen. Soft tissues: No acute abnormality noted. Vasculature: There is diffuse moderate to severe atherosclerosis of the aorta and branches particular the superior mesenteric artery. Stable distal aneurysm of 4.3 cm. No dissection or hemorrhage. Lymph nodes: No pathologically enlarged lymph nodes. IMPRESSION: 1. No acute abnormality noted. 2. Some bowel loops are poorly assessed due to motion. Diverticulosis without diverticulitis or obstruction. 3. Stable 4.3 cm distal abdominal aortic aneurysm without hemorrhage. XR chest 1V portable COMPARISON STUDY: 09/25/2025 FINDINGS: Heart size and pulmonary vasculature are normal. Stable mildly hyperexpanded lungs. There is interval small area of faint reticular and patchy opacity lateral right lung apex. No other consolidation or pleural effusion seen. No pneumothorax. IMPRESSION: Early pneumonia versus artifact right upper lobe. PG Care Time/CCT Total # of Minutes Spent Total Time Spent with Patient: Total time spent is greater than 50% in coordination of care (as documented) at patient's floor/unit and/or counseling patient: Coding Level of Care Code 05471 IN/OBS CONSULT LVL 4,60M Diagnoses TATY (acute kidney injury) N17.9 Sepsis A41.9 Sepsis type: sepsis due to unspecified organism Metabolic acidosis E87.20 Hyperkalemia E87.5 (2) Sepsis Sepsis type: sepsis due to unspecified organism
[2025-09-27] MEDS ORDERED: THIAMINE HCL 100 MG in SYRINGE 9 ML IV SCH (11:45)
[2025-09-27] MEDS: MAGNESIUM SULFATE / D5W 1 GM/100 ML BAG IV SCH (12:08)
[2025-09-27] MEDS: INFLUENZA VACC TS2025-26(65y+)/PF (IIV3) 0.5mL Syr IM ONE (12:56)
--- NOTE | 2025-09-27 13:06 | Pharmacy Report ---
Pharmacy Glycemic Short Note 2 - Date of Service September 27, 2025 - Glycemic Short BSG Results (Last 24 hours): 09/26/25 09/26/25 09/26/25 13:11 17:08 17:09 Glucose POC Glucose 258 H 375 H* 312 H* 09/26/25 09/26/25 09/26/25 17:20 20:08 20:09 Glucose 329 H* POC Glucose 346 H* 336 H* 09/26/25 09/27/25 09/27/25 23:38 04:25 06:37 Glucose 256 H POC Glucose 238 H 259 H 09/27/25 09/27/25 07:09 11:13 Glucose POC Glucose 270 H 222 H OUTPATIENT ANTIDIABETIC REGIMEN: * glimepiride 4mg PO daily * metformin 1000mg PO BID HbA1c: 8.7% on 09/10/25 ASSESSMENT: * Nanda is a 75 year old female who was admitted with an acute UTI and RUL pneumonia. Pharmacy was consulted for glycemic management while she is admitted as she had been started on iv methylprednisolone q 6 hours (reduced to q 12 hours on 09/27) * BSGs ranged from 201-375mg/dL yesterday. A bolus insulin regimen with just the correction factor was started by the provider last evening. * Fasting BSG was 270mg/dL this morning. 12 units (0.2units/kg) of Lantus was ordered x 1 this morning and a Lantus scale (0, 6, or 12 units depending on BSG) was ordered for HS * Bolus insulin was tightened to ~ a stress of 3. PLAN FOR INPATIENT GLYCEMIC CONTROL: * Hold outpatient oral diabetes medications * Basal insulin * Lantus 12 units (0.2units/kg) SQ x 1 then Lantus scale at HS (0,6, or 12 units depending on BSG) * Bolus insulin * NovoLog per scale ACHS or Q6hrs while NPO * Goal Range: Low 120 mg/dL - High 160 mg/dL * Correction Factor: 20 mg/dL/unit * Nutritional / Prandial insulin per carb ratio of 1 unit per 8 grams CHO consumed
[2025-09-27 13:33] LABS: Influenza A virus by PCR Negative (Neg); Influenza B virus by PCR Negative (Neg); SARS CoV2 RNA(COVID-19) Ceph NEGATIVE (Negative)
[2025-09-27 18:26] LABS: HCO3 ABG 28 mmol/L (19-24); Oxygen Saturation ABG 97.7 % (90-95); PCO2 ABG 43 mmHg (35-46); PO2 ABG 81 mmHg (80-95)
[2025-09-27 18:30] LABS: Allen Test Pos (Pos)
[2025-09-27] MEDS: THIAMINE HCL 500 MG in SODIUM CHLORIDE 0.9% 50 ML IV SCH (18:37)
[2025-09-27] MEDS: DAPTOmycin 600 MG in SYRINGE 0 ML IV SCH (18:37)
--- NOTE | 2025-09-27 19:29 | CT Scan Report ---
Technique: Axial computed tomography images were obtained of the brain from the vertex to the skull base without intravenous contrast. Findings: There is no sign of intracranial hemorrhage. There is normal bull-white matter differentiation with no sign of acute or old infarction. No midline shift or other form of herniation is identified. There is no hydrocephalus. There are bilateral basal ganglia calcifications No obvious mass lesion is seen on this noncontrast examination. The visualized portions of the orbits and paranasal sinuses appear unremarkable. The mastoid air cells appear clear Impression: Unremarkable noncontrast CT of the brain Electronically signed by Franck Mccoy 09-27-2025 7:29 PM
--- NOTE | 2025-09-27 19:47 | CT Scan Report ---
Technique: Axial computed tomography images were obtained of the chest without intravenous contrast Comparison is made to the prior CT dated 02/25/2024 Findings: There is no definite change in a 7 mm nodular opacity along the right minor fissure. There are calcified granulomas in the right lower lobe. There is mild emphysema There is bilateral lower lobe atelectasis. There is no pneumothorax. There are small bilateral pleural effusions. No endobronchial lesion is seen There is no mediastinal, hilar, or axillary adenopathy. There are small calcified subcarinal lymph nodes, likely due to old granulomatous disease. The thoracic aorta is of normal caliber. There is no pericardial effusion. There is extensive coronary atherosclerosis There are calcified splenic granulomas. The gallbladder has been removed. There is a 1 cm low-attenuation left adrenal nodule, likely a benign adenoma. There are new compression fractures of the T10 and T12 vertebral bodies. No focal osseous lesion is evident Impression: 1. Small bilateral pleural effusions 2. No definite change in a right midlung nodule, likely benign but indeterminate in nature. A follow-up chest CT could be obtained in 6 months 3. Mild emphysema 4. Small left adrenal adenoma 5. New compression fractures of T10 and T12 ACT 112: Positive. There are findings on this exam that require communication between the performing entity and the patient following Patient Test Result Information Act ([place] ACT 112) guidelines. Electronically signed by Franck Mccoy 09-27-2025 7:47 PM
[2025-09-27] MEDS: LACTATED RINGER'S 1,000 ML IV SCH (21:00)
[2025-09-27] MEDS: LANTUS PER UNIT CHARGE SC SCH (21:28)
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
[2025-09-27] MEDS: ENOXAPARIN INJ 30 MG/0.3 ML SYR SQ SCH (23:53)
[2025-09-28 06:25] LABS: Base Excess VBG 0.8 mEq/L; HCO3 VBG 27 mmol/L; Oxygen Saturation VBG < 60.0 %; PCO2 VBG 49 mmHg (38-50); PO2 VBG 36 mmHg; pH VBG 7.35 (7.36-7.41)
[2025-09-28 06:37] LABS: Hematocrit (blood only) 28.0 % (37.0-47.0); Hemoglobin 9.1 g/dl (12.0-16.0); Mean Corpuscular Hemoglobin 29.4 pg (25.0-34.0); Mean Corpuscular Volume 90.3 fL (80.0-100.0); Platelet Count 355 K/uL (130-400); RDW Standard Deviation 61.1 fL (36.4-46.3); Red Blood Count 3.10 M/uL (4.20-5.40); White Blood Count 13.88 K/ul (4.8-10.8)
[2025-09-28 07:03] LABS: Alanine Aminotransferase 52.0 U/L (7-52); Albumin Globulin Ratio 1.2 (0.9-2); Albumin Level 2.8 gm/dl (3.4-5.0); Alkaline Phosphatase 140.0 U/L (34-104); Anion Gap 16.0 (3-11); Bilirubin,Total 0.4 mg/dl (0.2-1.0); Blood Urea Nitrogen 52.0 mg/dl (6-23); Calcium 8.5 mg/dl (8.6-10.3); Carbon Dioxide 24.0 mmol/L (21-32); Chloride 102.0 mmol/L (98-107); Creatinine Clr Calc Pharmacy 20.4 ml/min; Globulin 2.3 gm/dl (2.5-4.0); Glucose 211.0 mg/dl (70-99(Fasting)); Magnesium 2.5 mg/dl (1.7-2.4); Potassium 4.8 mmol/L (3.5-5.1); Sodium 142.0 mmol/L (136-145); Total Protein 5.1 gm/dl (6.0-8.3)
[2025-09-28 07:17] LABS: Acanthocytes 1+; Immature Granulocytes # (auto) 0.15 K/uL (0.01-0.20); Immature Granulocytes % (auto) 1.1 %; Ovalocytes 1+
[2025-09-28] MEDS ORDERED: VANCOMYCIN CONSULT ACTIVE PRN (09:39)
[2025-09-28] MEDS: LANTUS PER UNIT CHARGE SC SCH (09:40)
[2025-09-28] MEDS ORDERED: VANCOMYCIN HCL / NSS 1,000 MG/270 ML BAG IV SCH (09:45)
[2025-09-28] MEDS ORDERED: MEROPENEM 2,000 MG in SODIUM CHLORIDE 0.9% 60 ML IV SCH (09:45)
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
--- NOTE | 2025-09-28 10:01 | Nephrology Progress Note ---
Date of Service September 28, 2025 Assessment & Plan (1) TATY (acute kidney injury): Plan: Urine output improving. Non-oliguric overnight. Electrolytes acceptable. Continue IVF to encourage positive fluid balance. Document strict I/O's. Clinical presentation consistent with ATN related to sepsis with hemodynamic instability. Monitor metabolic profile daily. Medications are appropriate for kidney function. No emergent indication for dialysis at this time. Kidneys are unobstructed on CT. Gutierrez is draining. (2) Sepsis: Plan: Attributed to UTI. BP remains soft but acceptable. Tachycardia persists. Continue fluids to encourage positive fluid balance. I discussed with Dr. Kraus this AM - antibiotic therapy switched to dapto and meropenem. History of E coli resistant to fluoroquinolones in the past. Urine culture negative. Blood cultures NGTD. (3) Encephalopathy: Plan: CT head reassuring. Clinically improving with supportive care, notably antibiotics. Suspected that this was related to metabolic complicated by infection and medications. Admission and Anticipated Discharge Date Admission Date: September 25, 2025 Subjective Daniella was more awake this morning. She responded to voice but would not answer questions other than to say "what" and "no." She specifically denied pain. She opened her eyes to request but immediate shut them afterwards. She remains afebrile. Non-oliguric. Review of Systems Review of Systems: Unobtainable due to cognitive status Physical Exam Constitutional: + ill appearing and + altered mental sta tus; no acute distress Eyes: + anicteric sclerae ENMT: Mouth: + dry oral mucous membranes Neck: normal visual inspection and trachea midline Respiratory: + tachypneic; no labored breathing Au scultation: lungs clear to auscultation bilaterally (anteriorly) Cardiovascular: Rate/Rhythm: regular rhythm and + tachycardic Heart Sounds: normal S1 and normal S2 Extremities: no edema Gastrointestinal (Abdomen): Inspection/Auscultation: normal bowel sounds Percussion/Palpation: abdomen soft; no guarding and abdomen not rigid Musculoskeletal: Extremities: no cyanosis and no clubbing Skin: + turgor decreased; no jaundice Neurologic: responds to voice, does not engage in conversation, remains lethargic but not obtunded, moving all extremities Genitourinary: Gutierrez draining clear yellow urine Results & Data Vital Signs (Past 12 Hours) Vital Signs Temp Pulse Pulse Resp BP BP BP 09/28/25 07:45 108 H 11/05/25 07:44 35.9 C L 103 H 25 H 109/53 L 09/28/25 06:53 107 H 18 09/28/25 06:34 103 H 127/63 09/28/25 05:02 98 H 117/54 L 09/28/25 03:42 98 H 20 09/28/25 02:31 36.6 C 97 H 14 110/80 09/27/25 23:41 115 H 114/68 09/27/25 22:32 36.6 C 99 H 14 114/68 09/27/25 22:27 101 H 18 09/27/25 22:00 101 H Pulse Ox O2 Del Method O2 Flow Rate 09/28/25 07:45 09/28/25 07:44 93 Nasal Cannula 3 09/28/25 06:53 93 Nasal Cannula 3 09/28/25 06:34 09/28/25 05:02 09/28/25 03:42 94 Nasal Cannula 3 09/28/25 02:31 94 Nasal Cannula 09/27/25 23:41 09/27/25 22:32 93 Nasal Cannula 09/27/25 22:27 92 Nasal Cannula 3 09/27/25 22:00 Laboratory Results Laboratory Results - last 24 hr 09/27/25 09/27/25 09/27/25 11:13 11:55 12:00 WBC RBC Hgb Hct MCV MCH MCHC RDW Std Deviation RDW Coeff of Dorcas Plt Count MPV Immature Gran % (Auto) Neut % (Auto) Lymph % (Auto) Borden % (Auto) Eos % (Auto) Baso % (Auto) Neut # (Auto) Lymph # (Auto) Borden # (Auto) Eos # (Auto) Baso # (Auto) Immature Gran # (Auto) Absolute Nucleated RBC Nucleated RBC % (auto) Ovalocytes Acanthocytes (Spur) ABG pH ABG pCO2 ABG pO2 ABG HCO3 ABG O2 Saturation ABG Base Excess Presley Test VBG pH VBG pCO2 VBG pO2 VBG HCO3 VBG O2 Saturation VBG Base Excess Oxygen Given Sodium Potassium Chloride Carbon Dioxide Anion Gap BUN Creatinine Est Cr Clr Drug Dosing eGFR BUN/Creatinine Ratio Glucose POC Glucose 222 H Calcium Phosphorus Magnesium Total Bilirubin AST ALT Alkaline Phosphatase Ammonia 34.0 Total Protein Albumin Globulin Albumin/Globulin Ratio Whole Bld Vitamin B1 Pending Procalcitonin SARS-CoV-2 (PCR) NEGATIVE Influenza Type A (PCR) Negative Influenza Type B (PCR) Negative RSV (RT-PCR) Negative 09/27/25 09/27/25 09/27/25 17:10 18:13 20:09 WBC RBC Hgb Hct MCV MCH MCHC RDW Std Deviation RDW Coeff of Dorcas Plt Count MPV Immature Gran % (Auto) Neut % (Auto) Lymph % (Auto) Borden % (Auto) Eos % (Auto) Baso % (Auto) Neut # (Auto) Lymph # (Auto) Borden # (Auto) Eos # (Auto) Baso # (Auto) Immature Gran # (Auto) Absolute Nucleated RBC Nucleated RBC % (auto) Ovalocytes Acanthocytes (Spur) ABG pH 7.42 ABG pCO2 43 ABG pO2 81 ABG HCO3 28 H ABG O2 Saturation 97.7 H ABG Base Excess 3.1 H Presley Test Pos VBG pH VBG pCO2 VBG pO2 VBG HCO3 VBG O2 Saturation VBG Base Excess Oxygen Given 3L NC Sodium Potassium Chloride Carbon Dioxide Anion Gap BUN Creatinine Est Cr Clr Drug Dosing eGFR BUN/Creatinine Ratio Glucose POC Glucose 241 H 194 H Calcium Phosphorus Magnesium Total Bilirubin AST ALT Alkaline Phosphatase Ammonia Total Protein Albumin Globulin Albumin/Globulin Ratio Whole Bld Vitamin B1 Procalcitonin SARS-CoV-2 (PCR) Influenza Type A (PCR) Influenza Type B (PCR) RSV (RT-PCR) 09/28/25 09/28/25 09/28/25 00:05 04:30 06:14 WBC 13.88 H RBC 3.10 L Hgb 9.1 L Hct 28.0 L MCV 90.3 MCH 29.4 MCHC 32.5 RDW Std Deviation 61.1 H RDW Coeff of Dorcas 19.0 H Plt Count 355 MPV 9.9 Immature Gran % (Auto) 1.1 Neut % (Auto) 93.4 Lymph % (Auto) 3.6 Borden % (Auto) 1.8 Eos % (Auto) 0.0 Baso % (Auto) 0.1 Neut # (Auto) 12.97 H Lymph # (Auto) 0.50 L Borden # (Auto) 0.25 Eos # (Auto) 0.00 Baso # (Auto) 0.01 Immature Gran # (Auto) 0.15 Absolute Nucleated RBC 0.03 Nucleated RBC % (auto) 0.2 Ovalocytes 1+ Acanthocytes (Spur) 1+ ABG pH ABG pCO2 ABG pO2 ABG HCO3 ABG O2 Saturation ABG Base Excess Presley Test VBG pH VBG pCO2 VBG pO2 VBG HCO3 VBG O2 Saturation VBG Base Excess Oxygen Given Sodium 142 Potassium 4.8 Chloride 102 Carbon Dioxide 24 Anion Gap 16 H BUN 52 H Creatinine 2.03 H Est Cr Clr Drug Dosing 20.4 eGFR 25.43 BUN/Creatinine Ratio 25.6 H Glucose 211 H POC Glucose 183 H 192 H Calcium 8.5 L Phosphorus 4.2 Magnesium 2.5 H Total Bilirubin 0.4 AST 32 ALT 52 Alkaline Phosphatase 140 H Ammonia Total Protein 5.1 L Albumin 2.8 L Globulin 2.3 L Albumin/Globulin Ratio 1.2 Whole Bld Vitamin B1 Procalcitonin 18.40 H SARS-CoV-2 (PCR) Influenza Type A (PCR) Influenza Type B (PCR) RSV (RT-PCR) 09/28/25 09/28/25 06:17 08:15 WBC RBC Hgb Hct MCV MCH MCHC RDW Std Deviation RDW Coeff of Dorcas Plt Count MPV Immature Gran % (Auto) Neut % (Auto) Lymph % (Auto) Borden % (Auto) Eos % (Auto) Baso % (Auto) Neut # (Auto) Lymph # (Auto) Borden # (Auto) Eos # (Auto) Baso # (Auto) Immature Gran # (Auto) Absolute Nucleated RBC Nucleated RBC % (auto) Ovalocytes Acanthocytes (Spur) ABG pH ABG pCO2 ABG pO2 ABG HCO3 ABG O2 Saturation ABG Base Excess Presley Test VBG pH 7.35 L VBG pCO2 49 VBG pO2 36 VBG HCO3 27 VBG O2 Saturation < 60.0 VBG Base Excess 0.8 Oxygen Given Sodium Potassium Chloride Carbon Dioxide Anion Gap BUN Creatinine Est Cr Clr Drug Dosing eGFR BUN/Creatinine Ratio Glucose POC Glucose 242 H Calcium Phosphorus Magnesium Total Bilirubin AST ALT Alkaline Phosphatase Ammonia Total Protein Albumin Globulin Albumin/Globulin Ratio Whole Bld Vitamin B1 Procalcitonin SARS-CoV-2 (PCR) Influenza Type A (PCR) Influenza Type B (PCR) RSV (RT-PCR) PG Care Time/CCT Total # of Minutes Spent Total Time Spent with Patient: Total time spent is greater than 50% in coordination of care (as documented) at patient's floor/unit and/or counseling patient: Coding Level of Care Code 01308 SUB INP/OBS CARE MIN Diagnoses TATY (acute kidney injury) N17.9 Sepsis A41.9 Sepsis type: sepsis due to unspecified organism Encephalopathy G93.40 (2) Sepsis Sepsis type: sepsis due to unspecified organism
[2025-09-28] MEDS: MEROPENEM 1,000 MG in SYRINGE 0 ML IV SCH (11:37)
--- NOTE | 2025-09-28 12:45 | Palliative Care Consultation ---
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 (8.6-10.3) mg/dl Phosphorus (2.5-4.9) mg/dl Magnesium (1.7-2.4) mg/dl Total Bilirubin (0.2-1.0) mg/dl AST (13-39) U/L ALT (7-52) U/L Alkaline Phosphatase (34-104) U/L Ammonia (18-72) umol/L Total Protein (6.0-8.3) gm/dl Albumin (3.4-5.0) gm/dl Globulin (2.5-4.0) gm/dl Albumin/Globulin Ratio (0.9-2) Lipase (11-82) U/L Whole Bld Vitamin B1 Procalcitonin (0-0.5) ng/ml Urine Color Urine Appearance (Clear) Urine pH (4.5-7.5) Ur Specific [place] (1.000-1.030) Urine Protein (Negative) Urine Glucose (UA) (Negative) Urine Ketones (Negative) Urine Blood (Negative) Urine Nitrite (Negative) Urine Bilirubin (Negative) Urine Urobilinogen (Negative) Ur Leukocyte Esterase (Negative) Urine WBC (Auto) (0-5) /hpf Urine RBC (Auto) (0-2) /hpf U Hyaline Cast (Auto) (0-2) /lpf U Epithel Cells (Auto) (0-2) /hpf Urine Bacteria (Auto) (None Seen) Hyaline Casts (None Presnt) /lpf Granular Casts (None Prsent) /lpf Urine Yeast (None Prsent) Ur Random Creatinine mg/dl Ur Random Sodium mmol/L Urine Comment SARS-CoV-2 (PCR) (Negative) Influenza Type A (PCR) (Neg) Influenza Type B (PCR) (Neg) RSV (RT-PCR) (Neg) Misc Micro Test 09/26/25 09/26/25 09/26/25 Range/Units 17:20 17:09 17:08 WBC (4.8-10.8) K/ul RBC (4.20-5.40) M/uL Hgb (12.0-16.0) g/dl Hct (37.0-47.0) % MCV (80.0-100.0) fL MCH (25.0-34.0) pg MCHC (32.0-36.0) g/dL RDW Std Deviation (36.4-46.3) fL RDW Coeff of Dorcas (11.5-14.5) % Plt Count (130-400) K/uL MPV (9.4-12.4) fL Immature Gran % (Auto) % Neut % (Auto) % Lymph % (Auto) % Grady % (Auto) % Eos % (Auto) % Baso % (Auto) % Neut # (Auto) (1.40-6.50) K/uL Lymph # (Auto) (1.20-3.40) K/uL Grady # (Auto) (0.11-0.59) K/uL Eos # (Auto) (0.00-0.50) K/uL Baso # (Auto) (0.00-0.20) K/uL Immature Gran # (Auto) (0.01-0.20) K/uL Absolute Nucleated RBC (0.00-0.12) K/uL Nucleated RBC % (auto) % Polychromasia Basophilic Stippling Anisocytosis Tear Drop Cells Ovalocytes Acanthocytes (Spur) ABG pH (7.35-7.45) ABG pCO2 (35-46) mmHg ABG pO2 (80-95) mmHg ABG HCO3 (19-24) mmol/L ABG O2 Saturation (90-95) % ABG Base Excess (-9-1.8) mEq/L Presley Test (Pos) VBG pH (7.36-7.41) VBG pCO2 (38-50) mmHg VBG pO2 mmHg VBG HCO3 mmol/L VBG O2 Saturation % VBG Base Excess mEq/L Oxygen Given Sodium 139 (136-145) mmol/L Potassium 5.2 H (3.5-5.1) mmol/L Chloride 104 (98-107) mmol/L Carbon Dioxide 18 L (21-32) mmol/L Anion Gap 17 H (3-11) BUN 41 H (6-23) mg/dl Creatinine 2.47 H (0.6-1.2) mg/dl Est Cr Clr Drug Dosing 16.8 ml/min eGFR 20.10 BUN/Creatinine Ratio 16.6 (10-20) Glucose 329 H* (70-99(Fasting)) mg/dl POC Glucose 312 H* 375 H* (70-99) mg/dl Lactate (0.4-2.0) mmol/L Calcium 7.9 L (8.6-10.3) mg/dl Phosphorus (2.5-4.9) mg/dl Magnesium (1.7-2.4) mg/dl Total Bilirubin (0.2-1.0) mg/dl AST (13-39) U/L ALT (7-52) U/L Alkaline Phosphatase (34-104) U/L Ammonia (18-72) umol/L Total Protein (6.0-8.3) gm/dl Albumin (3.4-5.0) gm/dl Globulin (2.5-4.0) gm/dl Albumin/Globulin Ratio (0.9-2) Lipase (11-82) U/L Whole Bld Vitamin B1 Procalcitonin (0-0.5) ng/ml Urine Color Urine Appearance (Clear) Urine pH (4.5-7.5) Ur Specific [place] (1.000-1.030) Urine Protein (Negative) Urine Glucose (UA) (Negative) Urine Ketones (Negative) Urine Blood (Negative) Urine Nitrite (Negative) Urine Bilirubin (Negative) Urine Urobilinogen (Negative) Ur Leukocyte Esterase (Negative) Urine WBC (Auto) (0-5) /hpf Urine RBC (Auto) (0-2) /hpf U Hyaline Cast (Auto) (0-2) /lpf U Epithel Cells (Auto) (0-2) /hpf Urine Bacteria (Auto) (None Seen) Hyaline Casts (None Presnt) /lpf Granular Casts (None Prsent) /lpf Urine Yeast (None Prsent) Ur Random Creatinine mg/dl Ur Random Sodium mmol/L Urine Comment SARS-CoV-2 (PCR) (Negative) Influenza Type A (PCR) (Neg) Influenza Type B (PCR) (Neg) RSV (RT-PCR) (Neg) Misc Micro Test 09/26/25 09/26/25 09/26/25 Range/Units 13:11 11:19 09:39 WBC (4.8-10.8) K/ul RBC (4.20-5.40) M/uL Hgb (12.0-16.0) g/dl Hct (37.0-47.0) % MCV (80.0-100.0) fL MCH (25.0-34.0) pg MCHC (32.0-36.0) g/dL RDW Std Deviation (36.4-46.3) fL RDW Coeff of Dorcas (11.5-14.5) % Plt Count (130-400) K/uL MPV (9.4-12.4) fL Immature Gran % (Auto) % Neut % (Auto) % Lymph % (Auto) % Grady % (Auto) % Eos % (Auto) % Baso % (Auto) % Neut # (Auto) (1.40-6.50) K/uL Lymph # (Auto) (1.20-3.40) K/uL Grady # (Auto) (0.11-0.59) K/uL Eos # (Auto) (0.00-0.50) K/uL Baso # (Auto) (0.00-0.20) K/uL Immature Gran # (Auto) (0.01-0.20) K/uL Absolute Nucleated RBC (0.00-0.12) K/uL Nucleated RBC % (auto) % Polychromasia Basophilic Stippling Anisocytosis Tear Drop Cells Ovalocytes Acanthocytes (Spur) ABG pH (7.35-7.45) ABG pCO2 (35-46) mmHg ABG pO2 (80-95) mmHg ABG HCO3 (19-24) mmol/L ABG O2 Saturation (90-95) % ABG Base Excess (-9-1.8) mEq/L Presley Test (Pos) VBG pH (7.36-7.41) VBG pCO2 (38-50) mmHg VBG pO2 mmHg VBG HCO3 mmol/L VBG O2 Saturation % VBG Base Excess mEq/L Oxygen Given Sodium (136-145) mmol/L Potassium (3.5-5.1) mmol/L Chloride (98-107) mmol/L Carbon Dioxide (21-32) mmol/L Anion Gap (3-11) BUN (6-23) mg/dl Creatinine (0.6-1.2) mg/dl Est Cr Clr Drug Dosing ml/min eGFR BUN/Creatinine Ratio (10-20) Glucose (70-99(Fasting)) mg/dl POC Glucose 258 H 215 H (70-99) mg/dl Lactate (0.4-2.0) mmol/L Calcium (8.6-10.3) mg/dl Phosphorus (2.5-4.9) mg/dl Magnesium (1.7-2.4) mg/dl Total Bilirubin (0.2-1.0) mg/dl AST (13-39) U/L ALT (7-52) U/L Alkaline Phosphatase (34-104) U/L Ammonia (18-72) umol/L Total Protein (6.0-8.3) gm/dl Albumin (3.4-5.0) gm/dl Globulin (2.5-4.0) gm/dl Albumin/Globulin Ratio (0.9-2) Lipase (11-82) U/L Whole Bld Vitamin B1 Procalcitonin 65.50 H (0-0.5) ng/ml Urine Color Urine Appearance (Clear) Urine pH (4.5-7.5) Ur Specific [place] (1.000-1.030) Urine Protein (Negative) Urine Glucose (UA) (Negative) Urine Ketones (Negative) Urine Blood (Negative) Urine Nitrite (Negative) Urine Bilirubin (Negative) Urine Urobilinogen (Negative) Ur Leukocyte Esterase (Negative) Urine WBC (Auto) (0-5) /hpf Urine RBC (Auto) (0-2) /hpf U Hyaline Cast (Auto) (0-2) /lpf U Epithel Cells (Auto) (0-2) /hpf Urine Bacteria (Auto) (None Seen) Hyaline Casts (None Presnt) /lpf Granular Casts (None Prsent) /lpf Urine Yeast (None Prsent) Ur Random Creatinine mg/dl Ur Random Sodium mmol/L Urine Comment SARS-CoV-2 (PCR) (Negative) Influenza Type A (PCR) (Neg) Influenza Type B (PCR) (Neg) RSV (RT-PCR) (Neg) Misc Micro Test 09/26/25 09/26/25 09/26/25 Range/Units 09:38 09:01 07:45 WBC 8.86 (4.8-10.8) K/ul RBC 3.10 L (4.20-5.40) M/uL Hgb 8.8 L (12.0-16.0) g/dl Hct 29.6 L (37.0-47.0) % MCV 95.5 (80.0-100.0) fL MCH 28.4 (25.0-34.0) pg MCHC 29.7 L (32.0-36.0) g/dL RDW Std Deviation 68.7 H (36.4-46.3) fL RDW Coeff of Dorcas 19.9 H (11.5-14.5) % Plt Count 365 (130-400) K/uL MPV 10.2 (9.4-12.4) fL Immature Gran % (Auto) % Neut % (Auto) % Lymph % (Auto) % [place]ady % (Auto) % Eos % (Auto) % Baso % (Auto) % Neut # (Auto) (1.40-6.50) K/uL Lymph # (Auto) (1.20-3.40) K/uL [place] # (Auto) (0.11-0.59) K/uL Eos # (Auto) (0.00-0.50) K/uL Baso # (Auto) (0.00-0.20) K/uL Immature Gran # (Auto) (0.01-0.20) K/uL Absolute Nucleated RBC 0.04 (0.00-0.12) K/uL Nucleated RBC % (auto) 0.5 % Polychromasia Basophilic Stippling Anisocytosis Tear Drop Cells Ovalocytes Acanthocytes (Spur) ABG pH (7.35-7.45) ABG pCO2 (35-46) mmHg ABG pO2 (80-95) mmHg ABG HCO3 (19-24) mmol/L ABG O2 Saturation (90-95) % ABG Base Excess (-9-1.8) mEq/L Presley Test (Pos) VBG pH 7.24 L (7.36-7.41) VBG pCO2 43 (38-50) mmHg VBG pO2 69 mmHg VBG HCO3 18 mmol/L VBG O2 Saturation 95.6 % VBG Base Excess -8.7 mEq/L Oxygen Given Sodium 141 (136-145) mmol/L Potassium 5.1 (3.5-5.1) mmol/L Chloride 108 H (98-107) mmol/L Carbon Dioxide 19 L (21-32) mmol/L Anion Gap 14 H (3-11) BUN 39 H (6-23) mg/dl Creatinine 2.34 H (0.6-1.2) mg/dl Est Cr Clr Drug Dosing 17.7 ml/min eGFR 21.45 BUN/Creatinine Ratio 16.7 (10-20) Glucose 197 H (70-99(Fasting)) mg/dl POC Glucose 201 H (70-99) mg/dl Lactate (0.4-2.0) mmol/L Calcium 8.2 L (8.6-10.3) mg/dl Phosphorus (2.5-4.9) mg/dl Magnesium (1.7-2.4) mg/dl Total Bilirubin 0.2 (0.2-1.0) mg/dl AST 63 H (13-39) U/L ALT 82 H (7-52) U/L Alkaline Phosphatase 187 H (34-104) U/L Ammonia (18-72) umol/L Total Protein 4.8 L D (6.0-8.3) gm/dl Albumin 2.4 L (3.4-5.0) gm/dl Globulin 2.4 L (2.5-4.0) gm/dl Albumin/Globulin Ratio 1.0 (0.9-2) Lipase (11-82) U/L Whole Bld Vitamin B1 Procalcitonin (0-0.5) ng/ml Urine Color Urine Appearance (Clear) Urine pH (4.5-7.5) Ur Specific [place] (1.000-1.030) Urine Protein (Negative) Urine Glucose (UA) (Negative) Urine Ketones (Negative) Urine Blood (Negative) Urine Nitrite (Negative) Urine Bilirubin (Negative) Urine Urobilinogen (Negative) Ur Leukocyte Esterase (Negative) Urine WBC (Auto) (0-5) /hpf Urine RBC (Auto) (0-2) /hpf U Hyaline Cast (Auto) (0-2) /lpf U Epithel Cells (Auto) (0-2) /hpf Urine Bacteria (Auto) (None Seen) Hyaline Casts (None Presnt) /lpf Granular Casts (None Prsent) /lpf Urine Yeast (None Prsent) Ur Random Creatinine 86.8 mg/dl Ur Random Sodium 22 mmol/L Urine Comment SARS-CoV-2 (PCR) (Negative) Influenza Type A (PCR) (Neg) Influenza Type B (PCR) (Neg) RSV (RT-PCR) (Neg) Misc Micro Test 09/26/25 09/26/25 09/26/25 Range/Units 07:00 06:20 05:12 WBC (4.8-10.8) K/ul RBC (4.20-5.40) M/uL Hgb (12.0-16.0) g/dl Hct (37.0-47.0) % MCV (80.0-100.0) fL MCH (25.0-34.0) pg MCHC (32.0-36.0) g/dL RDW Std Deviation (36.4-46.3) fL RDW Coeff of Dorcas (11.5-14.5) % Plt Count (130-400) K/uL MPV (9.4-12.4) fL Immature Gran % (Auto) % Neut % (Auto) % Lymph % (Auto) % [place]ady % (Auto) % Eos % (Auto) % Baso % (Auto) % Neut # (Auto) (1.40-6.50) K/uL Lymph # (Auto) (1.20-3.40) K/uL [place]ady # (Auto) (0.11-0.59) K/uL Eos # (Auto) (0.00-0.50) K/uL Baso # (Auto) (0.00-0.20) K/uL Immature Gran # (Auto) (0.01-0.20) K/uL Absolute Nucleated RBC (0.00-0.12) K/uL Nucleated RBC % (auto) % Polychromasia Basophilic Stippling Anisocytosis Tear Drop Cells Ovalocytes Acanthocytes (Spur) ABG pH (7.35-7.45) ABG pCO2 (35-46) mmHg ABG pO2 (80-95) mmHg ABG HCO3 (19-24) mmol/L ABG O2 Saturation (90-95) % ABG Base Excess (-9-1.8) mEq/L Presley Test (Pos) VBG pH (7.36-7.41) VBG pCO2 (38-50) mmHg VBG pO2 mmHg VBG HCO3 mmol/L VBG O2 Saturation % VBG Base Excess mEq/L Oxygen Given Sodium (136-145) mmol/L Potassium (3.5-5.1) mmol/L Chloride (98-107) mmol/L Carbon Dioxide (21-32) mmol/L Anion Gap (3-11) BUN (6-23) mg/dl Creatinine (0.6-1.2) mg/dl Est Cr Clr Drug Dosing ml/min eGFR BUN/Creatinine Ratio (10-20) Glucose (70-99(Fasting)) mg/dl POC Glucose 233 H 75 77 (70-99) mg/dl Lactate (0.4-2.0) mmol/L Calcium (8.6-10.3) mg/dl Phosphorus (2.5-4.9) mg/dl Magnesium (1.7-2.4) mg/dl Total Bilirubin (0.2-1.0) mg/dl AST (13-39) U/L ALT (7-52) U/L Alkaline Phosphatase (34-104) U/L Ammonia (18-72) umol/L Total Protein (6.0-8.3) gm/dl Albumin (3.4-5.0) gm/dl Globulin (2.5-4.0) gm/dl Albumin/Globulin Ratio (0.9-2) Lipase (11-82) U/L Whole Bld Vitamin B1 Procalcitonin (0-0.5) ng/ml Urine Color Urine Appearance (Clear) Urine pH (4.5-7.5) Ur Specific [place] (1.000-1.030) Urine Protein (Negative) Urine Glucose (UA) (Negative) Urine Ketones (Negative) Urine Blood (Negative) Urine Nitrite (Negative) Urine Bilirubin (Negative) Urine Urobilinogen (Negative) Ur Leukocyte Esterase (Negative) Urine WBC (Auto) (0-5) /hpf Urine RBC (Auto) (0-2) /hpf U Hyaline Cast (Auto) (0-2) /lpf U Epithel Cells (Auto) (0-2) /hpf Urine Bacteria (Auto) (None Seen) Hyaline Casts (None Presnt) /lpf Granular Casts (None Prsent) /lpf Urine Yeast (None Prsent) Ur Random Creatinine mg/dl Ur Random Sodium mmol/L Urine Comment SARS-CoV-2 (PCR) (Negative) Influenza Type A (PCR) (Neg) Influenza Type B (PCR) (Neg) RSV (RT-PCR) (Neg) Misc Micro Test 09/26/25 09/26/25 09/26/25 Range/Units 03:44 02:58 02:37 WBC (4.8-10.8) K/ul RBC (4.20-5.40) M/uL Hgb (12.0-16.0) g/dl Hct (37.0-47.0) % MCV (80.0-100.0) fL MCH (25.0-34.0) pg MCHC (32.0-36.0) g/dL RDW Std Deviation (36.4-46.3) fL RDW Coeff of Dorcas (11.5-14.5) % Plt Count (130-400) K/uL MPV (9.4-12.4) fL Immature Gran % (Auto) % Neut % (Auto) % Lymph % (Auto) % [place]ady % (Auto) % Eos % (Auto) % Baso % (Auto) % Neut # (Auto) (1.40-6.50) K/uL Lymph # (Auto) (1.20-3.40) K/uL Grady # (Auto) (0.11-0.59) K/uL Eos # (Auto) (0.00-0.50) K/uL Baso # (Auto) (0.00-0.20) K/uL Immature Gran # (Auto) (0.01-0.20) K/uL Absolute Nucleated RBC (0.00-0.12) K/uL Nucleated RBC % (auto) % Polychromasia Basophilic Stippling Anisocytosis Tear Drop Cells Ovalocytes Acanthocytes (Spur) ABG pH (7.35-7.45) ABG pCO2 (35-46) mmHg ABG pO2 (80-95) mmHg ABG HCO3 (19-24) mmol/L ABG O2 Saturation (90-95) % ABG Base Excess (-9-1.8) mEq/L Presley Test (Pos) VBG pH (7.36-7.41) VBG pCO2 (38-50) mmHg VBG pO2 mmHg VBG HCO3 mmol/L VBG O2 Saturation % VBG Base Excess mEq/L Oxygen Given Sodium (136-145) mmol/L Potassium (3.5-5.1) mmol/L Chloride (98-107) mmol/L Carbon Dioxide (21-32) mmol/L Anion Gap (3-11) BUN (6-23) mg/dl Creatinine (0.6-1.2) mg/dl Est Cr Clr Drug Dosing ml/min eGFR BUN/Creatinine Ratio (10-20) Glucose (70-99(Fasting)) mg/dl POC Glucose 110 H 197 H 42 L* (70-99) mg/dl Lactate (0.4-2.0) mmol/L Calcium (8.6-10.3) mg/dl Phosphorus (2.5-4.9) mg/dl Magnesium (1.7-2.4) mg/dl Total Bilirubin (0.2-1.0) mg/dl AST (13-39) U/L ALT (7-52) U/L Alkaline Phosphatase (34-104) U/L Ammonia (18-72) umol/L Total Protein (6.0-8.3) gm/dl Albumin (3.4-5.0) gm/dl Globulin (2.5-4.0) gm/dl Albumin/Globulin Ratio (0.9-2) Lipase (11-82) U/L Whole Bld Vitamin B1 Procalcitonin (0-0.5) ng/ml Urine Color Urine Appearance (Clear) Urine pH (4.5-7.5) Ur Specific [place] (1.000-1.030) Urine Protein (Negative) Urine Glucose (UA) (Negative) Urine Ketones (Negative) Urine Blood (Negative) Urine Nitrite (Negative) Urine Bilirubin (Negative) Urine Urobilinogen (Negative) Ur Leukocyte Esterase (Negative) Urine WBC (Auto) (0-5) /hpf Urine RBC (Auto) (0-2) /hpf U Hyaline Cast (Auto) (0-2) /lpf U Epithel Cells (Auto) (0-2) /hpf Urine Bacteria (Auto) (None Seen) Hyaline Casts (None Presnt) /lpf Granular Casts (None Prsent) /lpf Urine Yeast (None Prsent) Ur Random Creatinine mg/dl Ur Random Sodium mmol/L Urine Comment SARS-CoV-2 (PCR) (Negative) Influenza Type A (PCR) (Neg) Influenza Type B (PCR) (Neg) RSV (RT-PCR) (Neg) Misc Micro Test 09/26/25 09/26/25 09/26/25 Range/Units 02:00 01:57 01:23 WBC (4.8-10.8) K/ul RBC (4.20-5.40) M/uL Hgb (12.0-16.0) g/dl Hct (37.0-47.0) % MCV (80.0-100.0) fL MCH (25.0-34.0) pg MCHC (32.0-36.0) g/dL RDW Std Deviation (36.4-46.3) fL RDW Coeff of Dorcas (11.5-14.5) % Plt Count (130-400) K/uL MPV (9.4-12.4) fL Immature Gran % (Auto) % Neut % (Auto) % Lymph % (Auto) % Grady % (Auto) % Eos % (Auto) % Baso % (Auto) % Neut # (Auto) (1.40-6.50) K/uL Lymph # (Auto) (1.20-3.40) K/uL Grady # (Auto) (0.11-0.59) K/uL Eos # (Auto) (0.00-0.50) K/uL Baso # (Auto) (0.00-0.20) K/uL Immature Gran # (Auto) (0.01-0.20) K/uL Absolute Nucleated RBC (0.00-0.12) K/uL Nucleated RBC % (auto) % Polychromasia Basophilic Stippling Anisocytosis Tear Drop Cells Ovalocytes Acanthocytes (Spur) ABG pH (7.35-7.45) ABG pCO2 (35-46) mmHg ABG pO2 (80-95) mmHg ABG HCO3 (19-24) mmol/L ABG O2 Saturation (90-95) % ABG Base Excess (-9-1.8) mEq/L Presley Test (Pos) VBG pH (7.36-7.41) VBG pCO2 (38-50) mmHg VBG pO2 mmHg VBG HCO3 mmol/L VBG O2 Saturation % VBG Base Excess mEq/L Oxygen Given Sodium 144 (136-145) mmol/L Potassium 4.6 (3.5-5.1) mmol/L Chloride 113 H (98-107) mmol/L Carbon Dioxide 15 L (21-32) mmol/L Anion Gap 16 H (3-11) BUN 41 H (6-23) mg/dl Creatinine 2.30 H (0.6-1.2) mg/dl Est Cr Clr Drug Dosing 18.0 ml/min eGFR 21.90 BUN/Creatinine Ratio 17.8 (10-20) Glucose 77 (70-99(Fasting)) mg/dl POC Glucose 102 H 185 H (70-99) mg/dl Lactate (0.4-2.0) mmol/L Calcium 8.6 (8.6-10.3) mg/dl Phosphorus (2.5-4.9) mg/dl Magnesium (1.7-2.4) mg/dl Total Bilirubin (0.2-1.0) mg/dl AST (13-39) U/L ALT (7-52) U/L Alkaline Phosphatase (34-104) U/L Ammonia (18-72) umol/L Total Protein (6.0-8.3) gm/dl Albumin (3.4-5.0) gm/dl Globulin (2.5-4.0) gm/dl Albumin/Globulin Ratio (0.9-2) Lipase (11-82) U/L Whole Bld Vitamin B1 Procalcitonin (0-0.5) ng/ml Urine Color Urine Appearance (Clear) Urine pH (4.5-7.5) Ur Specific [place] (1.000-1.030) Urine Protein (Negative) Urine Glucose (UA) (Negative) Urine Ketones (Negative) Urine Blood (Negative) Urine Nitrite (Negative) Urine Bilirubin (Negative) Urine Urobilinogen (Negative) Ur Leukocyte Esterase (Negative) Urine WBC (Auto) (0-5) /hpf Urine RBC (Auto) (0-2) /hpf U Hyaline Cast (Auto) (0-2) /lpf U Epithel Cells (Auto) (0-2) /hpf Urine Bacteria (Auto) (None Seen) Hyaline Casts (None Presnt) /lpf Granular Casts (None Prsent) /lpf Urine Yeast (None Prsent) Ur Random Creatinine mg/dl Ur Random Sodium mmol/L Urine Comment SARS-CoV-2 (PCR) (Negative) Influenza Type A (PCR) (Neg) Influenza Type B (PCR) (Neg) RSV (RT-PCR) (Neg) Misc Micro Test 09/26/25 09/25/25 09/25/25 Range/Units 00:59 20:59 20:47 WBC (4.8-10.8) K/ul RBC (4.20-5.40) M/uL Hgb (12.0-16.0) g/dl Hct (37.0-47.0) % MCV (80.0-100.0) fL MCH (25.0-34.0) pg MCHC (32.0-36.0) g/dL RDW Std Deviation (36.4-46.3) fL RDW Coeff of Dorcas (11.5-14.5) % Plt Count (130-400) K/uL MPV (9.4-12.4) fL Immature Gran % (Auto) % Neut % (Auto) % Lymph % (Auto) % Grady % (Auto) % Eos % (Auto) % Baso % (Auto) % Neut # (Auto) (1.40-6.50) K/uL Lymph # (Auto) (1.20-3.40) K/uL Grady # (Auto) (0.11-0.59) K/uL Eos # (Auto) (0.00-0.50) K/uL Baso # (Auto) (0.00-0.20) K/uL Immature Gran # (Auto) (0.01-0.20) K/uL Absolute Nucleated RBC (0.00-0.12) K/uL Nucleated RBC % (auto) % Polychromasia Basophilic Stippling Anisocytosis Tear Drop Cells Ovalocytes Acanthocytes (Spur) ABG pH (7.35-7.45) ABG pCO2 (35-46) mmHg ABG pO2 (80-95) mmHg ABG HCO3 (19-24) mmol/L ABG O2 Saturation (90-95) % ABG Base Excess (-9-1.8) mEq/L Presley Test (Pos) VBG pH (7.36-7.41) VBG pCO2 (38-50) mmHg VBG pO2 mmHg VBG HCO3 mmol/L VBG O2 Saturation % VBG Base Excess mEq/L Oxygen Given Sodium 144 (136-145) mmol/L Potassium 5.6 H (3.5-5.1) mmol/L Chloride 114 H (98-107) mmol/L Carbon Dioxide 16 L (21-32) mmol/L Anion Gap 14 H (3-11) BUN 38 H (6-23) mg/dl Creatinine 2.24 H (0.6-1.2) mg/dl Est Cr Clr Drug Dosing 18.5 ml/min eGFR 22.60 BUN/Creatinine Ratio 17.0 (10-20) Glucose 151 H (70-99(Fasting)) mg/dl POC Glucose 92 163 H (70-99) mg/dl Lactate (0.4-2.0) mmol/L Calcium 8.1 L (8.6-10.3) mg/dl Phosphorus (2.5-4.9) mg/dl Magnesium (1.7-2.4) mg/dl Total Bilirubin (0.2-1.0) mg/dl AST (13-39) U/L ALT (7-52) U/L Alkaline Phosphatase (34-104) U/L Ammonia (18-72) umol/L Total Protein (6.0-8.3) gm/dl Albumin (3.4-5.0) gm/dl Globulin (2.5-4.0) gm/dl Albumin/Globulin Ratio (0.9-2) Lipase (11-82) U/L Whole Bld Vitamin B1 Procalcitonin (0-0.5) ng/ml Urine Color Urine Appearance (Clear) Urine pH (4.5-7.5) Ur Specific [place] (1.000-1.030) Urine Protein (Negative) Urine Glucose (UA) (Negative) Urine Ketones (Negative) Urine Blood (Negative) Urine Nitrite (Negative) Urine Bilirubin (Negative) Urine Urobilinogen (Negative) Ur Leukocyte Esterase (Negative) Urine WBC (Auto) (0-5) /hpf Urine RBC (Auto) (0-2) /hpf U Hyaline Cast (Auto) (0-2) /lpf U Epithel Cells (Auto) (0-2) /hpf Urine Bacteria (Auto) (None Seen) Hyaline Casts (None Presnt) /lpf Granular Casts (None Prsent) /lpf Urine Yeast (None Prsent) Ur Random Creatinine mg/dl Ur Random Sodium mmol/L Urine Comment SARS-CoV-2 (PCR) (Negative) Influenza Type A (PCR) (Neg) Influenza Type B (PCR) (Neg) RSV (RT-PCR) (Neg) Misc Micro Test 09/25/25 09/25/25 09/25/25 Range/Units 17:37 17:07 16:50 WBC (4.8-10.8) K/ul RBC (4.20-5.40) M/uL Hgb (12.0-16.0) g/dl Hct (37.0-47.0) % MCV (80.0-100.0) fL MCH (25.0-34.0) pg MCHC (32.0-36.0) g/dL RDW Std Deviation (36.4-46.3) fL RDW Coeff of Dorcas (11.5-14.5) % Plt Count (130-400) K/uL MPV (9.4-12.4) fL Immature Gran % (Auto) % Neut % (Auto) % Lymph % (Auto) % Grady % (Auto) % Eos % (Auto) % Baso % (Auto) % Neut # (Auto) (1.40-6.50) K/uL Lymph # (Auto) (1.20-3.40) K/uL Grady # (Auto) (0.11-0.59) K/uL Eos # (Auto) (0.00-0.50) K/uL Baso # (Auto) (0.00-0.20) K/uL Immature Gran # (Auto) (0.01-0.20) K/uL Absolute Nucleated RBC (0.00-0.12) K/uL Nucleated RBC % (auto) % Polychromasia Basophilic Stippling Anisocytosis Tear Drop Cells Ovalocytes Acanthocytes (Spur) ABG pH (7.35-7.45) ABG pCO2 (35-46) mmHg ABG pO2 (80-95) mmHg ABG HCO3 (19-24) mmol/L ABG O2 Saturation (90-95) % ABG Base Excess (-9-1.8) mEq/L Presley Test (Pos) VBG pH (7.36-7.41) VBG pCO2 (38-50) mmHg VBG pO2 mmHg VBG HCO3 mmol/L VBG O2 Saturation % VBG Base Excess mEq/L Oxygen Given Sodium (136-145) mmol/L Potassium (3.5-5.1) mmol/L Chloride (98-107) mmol/L Carbon Dioxide (21-32) mmol/L Anion Gap (3-11) BUN (6-23) mg/dl Creatinine (0.6-1.2) mg/dl Est Cr Clr Drug Dosing ml/min eGFR BUN/Creatinine Ratio (10-20) Glucose (70-99(Fasting)) mg/dl POC Glucose 158 H 43 L* 46 L* (70-99) mg/dl Lactate (0.4-2.0) mmol/L Calcium (8.6-10.3) mg/dl Phosphorus (2.5-4.9) mg/dl Magnesium (1.7-2.4) mg/dl Total Bilirubin (0.2-1.0) mg/dl AST (13-39) U/L ALT (7-52) U/L Alkaline Phosphatase (34-104) U/L Ammonia (18-72) umol/L Total Protein (6.0-8.3) gm/dl Albumin (3.4-5.0) gm/dl Globulin (2.5-4.0) gm/dl Albumin/Globulin Ratio (0.9-2) Lipase (11-82) U/L Whole Bld Vitamin B1 Procalcitonin (0-0.5) ng/ml Urine Color Urine Appearance (Clear) Urine pH (4.5-7.5) Ur Specific [place] (1.000-1.030) Urine Protein (Negative) Urine Glucose (UA) (Negative) Urine Ketones (Negative) Urine Blood (Negative) Urine Nitrite (Negative) Urine Bilirubin (Negative) Urine Urobilinogen (Negative) Ur Leukocyte Esterase (Negative) Urine WBC (Auto) (0-5) /hpf Urine RBC (Auto) (0-2) /hpf U Hyaline Cast (Auto) (0-2) /lpf U Epithel Cells (Auto) (0-2) /hpf Urine Bacteria (Auto) (None Seen) Hyaline Casts (None Presnt) /lpf Granular Casts (None Prsent) /lpf Urine Yeast (None Prsent) Ur Random Creatinine mg/dl Ur Random Sodium mmol/L Urine Comment SARS-CoV-2 (PCR) (Negative) Influenza Type A (PCR) (Neg) Influenza Type B (PCR) (Neg) RSV (RT-PCR) (Neg) Misc Micro Test 09/25/25 09/25/25 Range/Units 13:44 13:33 WBC 10.74 (4.8-10.8) K/ul RBC 3.89 L (4.20-5.40) M/uL Hgb 11.0 L (12.0-16.0) g/dl Hct 38.4 (37.0-47.0) % MCV 98.7 (80.0-100.0) fL MCH 28.3 (25.0-34.0) pg MCHC 28.6 L (32.0-36.0) g/dL RDW Std Deviation 71.9 H (36.4-46.3) fL RDW Coeff of Dorcas 20.2 H (11.5-14.5) % Plt Count 456 H (130-400) K/uL MPV 10.1 (9.4-12.4) fL Immature Gran % (Auto) 2.2 % Neut % (Auto) 73.1 % Lymph % (Auto) 16.2 % [place]ady % (Auto) 6.6 % Eos % (Auto) 1.2 % Baso % (Auto) 0.7 % Neut # (Auto) 7.84 H (1.40-6.50) K/uL Lymph # (Auto) 1.74 (1.20-3.40) K/uL [place] # (Auto) 0.71 H (0.11-0.59) K/uL Eos # (Auto) 0.13 (0.00-0.50) K/uL Baso # (Auto) 0.08 (0.00-0.20) K/uL Immature Gran # (Auto) 0.24 H (0.01-0.20) K/uL Absolute Nucleated RBC 0.03 (0.00-0.12) K/uL Nucleated RBC % (auto) 0.3 % Polychromasia Basophilic Stippling Anisocytosis Tear Drop Cells Ovalocytes Acanthocytes (Spur) ABG pH (7.35-7.45) ABG pCO2 (35-46) mmHg ABG pO2 (80-95) mmHg ABG HCO3 (19-24) mmol/L ABG O2 Saturation (90-95) % ABG Base Excess (-9-1.8) mEq/L Presley Test (Pos) VBG pH (7.36-7.41) VBG pCO2 (38-50) mmHg VBG pO2 mmHg VBG HCO3 mmol/L VBG O2 Saturation % VBG Base Excess mEq/L Oxygen Given Sodium 146 H (136-145) mmol/L Potassium 5.2 H (3.5-5.1) mmol/L Chloride 111 H (98-107) mmol/L Carbon Dioxide 15 L (21-32) mmol/L Anion Gap 20 H (3-11) BUN 35 H (6-23) mg/dl Creatinine 2.29 H (0.6-1.2) mg/dl Est Cr Clr Drug Dosing 18.1 ml/min eGFR 22.01 BUN/Creatinine Ratio 15.3 (10-20) Glucose 86 (70-99(Fasting)) mg/dl POC Glucose (70-99) mg/dl Lactate 3.3 H* (0.4-2.0) mmol/L Calcium 9.0 (8.6-10.3) mg/dl Phosphorus (2.5-4.9) mg/dl Magnesium (1.7-2.4) mg/dl Total Bilirubin 0.3 (0.2-1.0) mg/dl AST 108 H (13-39) U/L ALT 122 H (7-52) U/L Alkaline Phosphatase 231 H (34-104) U/L Ammonia (18-72) umol/L Total Protein 5.8 L (6.0-8.3) gm/dl Albumin 3.0 L (3.4-5.0) gm/dl Globulin 2.8 (2.5-4.0) gm/dl Albumin/Globulin Ratio 1.1 (0.9-2) Lipase 21 (11-82) U/L Whole Bld Vitamin B1 Procalcitonin (0-0.5) ng/ml Urine Color Yellow Urine Appearance Cloudy A (Clear) Urine pH 5.0 (4.5-7.5) Ur Specific [place] 1.023 (1.000-1.030) Urine Protein 2+ H (Negative) Urine Glucose (UA) Negative (Negative) Urine Ketones Negative (Negative) Urine Blood Negative (Negative) Urine Nitrite Negative (Negative) Urine Bilirubin Negative (Negative) Urine Urobilinogen Negative (Negative) Ur Leukocyte Esterase 1+ H (Negative) Urine WBC (Auto) 11-20 H (0-5) /hpf Urine RBC (Auto) 0-2 (0-2) /hpf U Hyaline Cast (Auto) 11-20 H (0-2) /lpf U Epithel Cells (Auto) 3-5 H (0-2) /hpf Urine Bacteria (Auto) 1+ H (None Seen) Hyaline Casts Present A (None Presnt) /lpf Granular Casts Present A (None Prsent) /lpf Urine Yeast Present A (None Prsent) Ur Random Creatinine mg/dl Ur Random Sodium mmol/L Urine Comment SARS-CoV-2 (PCR) (Negative) Influenza Type A (PCR) (Neg) Influenza Type B (PCR) (Neg) RSV (RT-PCR) (Neg) Misc Micro Test Pending Diagnostic Findings Abdomen/Pelvis CT 09/25/25 14:18 EXAM: CT Abdomen and Pelvis Without Intravenous Contrast INDICATION: Feeling unwell. Poor appetite. TECHNIQUE: Axial computed tomography images of the abdomen and pelvis without intravenous contrast. Sagittal and coronal reformatted images were created and reviewed. This CT exam was performed using one or more of the following dose reduction techniques: automated exposure control, adjustment of the mA and/or kV according to patient size, and/or use of iterative reconstruction technique. COMPARISON: 12/26/2024 FINDINGS: Limitations: . Lung bases: No abnormality noted. Pleural space: No visualized pleural effusion or pneumothorax. Heart: No abnormality noted. Mediastinum: No abnormality noted. ABDOMEN: Liver: Lack of intravenous contrast limits detection of some masses. No abnormality noted. Gallbladder and bile ducts: Cholecystectomy. No ductal dilation or stone noted. Pancreas: No pancreatic mass, calcification, inflammation or ductal dilation noted. Spleen: Multiple granulomata noted in the spleen. Adrenals: Stable low-density left adrenal nodule typical of adenoma. No further assessment required. The right appears normal. Kidneys and ureters: No abnormality noted. No stones. No hydronephrosis. No significant perinephric fluid. Stomach and bowel: Aspiratory motion limits assessment of some intestinal loops. Left colonic diverticulosis. No diverticulitis. No obstruction. PELVIS: Appendix: No findings to suggest acute appendicitis. Bladder: Appears normal for the degree of filling. No stones or inflammation. No large mass. Masses may not be detected in the absence of opacification. Reproductive: Hysterectomy. ABDOMEN and PELVIS: Intraperitoneal space: Trace amounts of fluid in the pelvis. No abscess. No free air. Bones/joints: Degenerative changes noted throughout the spine. No acute osseous abnormality seen. Soft tissues: No acute abnormality noted. Vasculature: There is diffuse moderate to severe atherosclerosis of the aorta and branches particular the superior mesenteric artery. Stable distal aneurysm of 4.3 cm. No dissection or hemorrhage. Lymph nodes: No pathologically enlarged lymph nodes. IMPRESSION: 1. No acute abnormality noted. 2. Some bowel loops are poorly assessed due to motion. Diverticulosis without diverticulitis or obstruction. 3. Stable 4.3 cm distal abdominal aortic aneurysm without hemorrhage. ACR White Paper guidelines (Diaz, et al. JACR 2013; 10(10):789-94) suggest abdomen/pelvis CT or MR imaging follow-up in 1 years. ACT 112: N/A Electronically signed by Arielle Ramirez 09-25-2025 3:16 PM Chest X-Ray 09/27/25 07:52 XR chest 1V portable CLINICAL HISTORY: Respiratory failure. COMPARISON STUDY: Chest CT December 15, 2024. Chest radiograph September 26, 2025. FINDINGS: This exam is mildly compromised given difficulty positioning. There is no pneumothorax. Blunting of left costophrenic angle is noted. Underlying emphysema is present. There is no consolidation to suggest pneumonia. There is no evidence for pulmonary edema. Cardiomediastinal silhouette is stable. IMPRESSION: 1. Blunting of left costophrenic angle. This may be due to epicardial fat pad or a trace left pleural effusion. 2. Emphysema. No consolidation to suggest pneumonia. 3. Rotated study. ACT 112: Negative or not required by law. Electronically signed by: Cheng Arevalo M.D. 09/27/2025 8:[address] 09/27/25 17:46 Technique: Axial computed tomography images were obtained of the brain from the vertex to the skull base without intravenous contrast. Findings: There is no sign of intracranial hemorrhage. There is normal bull-white matter differentiation with no sign of acute or old infarction. No midline shift or other form of herniation is identified. There is no hydrocephalus. There are bilateral basal ganglia calcifications No obvious mass lesion is seen on this noncontrast examination. The visualized portions of the orbits and paranasal sinuses appear unremarkable. The mastoid air cells appear clear Impression: Unremarkable noncontrast CT of the brain Electronically signed by Franck Mccoy 09-27-2025 7:[address] 09/27/25 18:10 Technique: Axial computed tomography images were obtained of the chest without intravenous contrast Comparison is made to the prior CT dated 02/25/2024 Findings: There is no definite change in a 7 mm nodular opacity along the right minor fissure. There are calcified granulomas in the right lower lobe. There is mild emphysema There is bilateral lower lobe atelectasis. There is no pneumothorax. There are small bilateral pleural effusions. No endobronchial lesion is seen There is no mediastinal, hilar, or axillary adenopathy. There are small calcified subcarinal lymph nodes, likely due to old granulomatous disease. The thoracic aorta is of normal caliber. There is no pericardial effusion. There is extensive coronary atherosclerosis There are calcified splenic granulomas. The gallbladder has been removed. There is a 1 cm low-attenuation left adrenal nodule, likely a benign adenoma. There are new compression fractures of the T10 and T12 vertebral bodies. No focal osseous lesion is evident Impression: 1. Small bilateral pleural effusions 2. No definite change in a right midlung nodule, likely benign but indeterminate in nature. A follow-up chest CT could be obtained in 6 months 3. Mild emphysema 4. Small left adrenal adenoma 5. New compression fractures of T10 and T12 ACT 112: Positive. There are findings on this exam that require communication between the performing entity and the patient following Patient Test Result Information Act ([place] ACT 112) guidelines. Electronically signed by Franck Mccoy 09-27-2025 7:47 PM PG Care Time/CCT Total # of Minutes Spent Total Time Spent with Patient: Total time spent is greater than 50% in coordination of care (as documented) at patient's floor/unit and/or counseling patient: I spent 60 minutes overall addressing this case: 15 min in medical data review/discussion with referring provider(s) and/or preparation for the visit 15 min in direct interaction with the patient/exam 000 min in Advance Care Planning/Goals of Care discussions as detailed above in note (must be >16min) 15 min in subsequent review and synthesis of assessment and plan 15 min communicating with other providers regarding the patient's case: primary team [place] [address] IN/OBS CONSULT LVL 4,60M Patient Type New History Comprehensive Exam Comprehensive Medical Decision Making High Complexity Diagnoses Cognitive and neurobehavioral dysfunction F09 Palliative care by specialist Z51.5 Ambulatory dysfunction R26.2 Comment [id number]
--- NOTE | 2025-09-28 14:45 | Pharmacy Report ---
Pharmacy Glycemic Short Note 2 - Date of Service September 28, 2025 - Glycemic Short BSG Results (Last 24 hours): 09/27/25 09/27/25 09/28/25 17:10 20:09 00:05 Glucose POC Glucose 241 H 194 H 183 H 09/28/25 09/28/25 09/28/25 04:30 06:14 08:15 Glucose 211 H POC Glucose 192 H 242 H 09/28/25 11:17 Glucose POC Glucose 142 H OUTPATIENT ANTIDIABETIC REGIMEN: * glimepiride 4mg PO daily * metformin 1000mg PO BID HbA1c: 8.7% on 09/10/25 ASSESSMENT: 09/28: * Daniella received a total of 34 units of insulin yesterday. BSGs were all above goal. * Fasting BSG was 242mg/dL this morning. Lantus 18 units SQ daily was ordered and HS Lantus scale (0,6, or 12 units depending on BSG) will be continued * Bolus insulin parameters were tightened yesterday, so will continue for now without change. 09/27: * Nanda is a 75 year old female who was admitted with an acute UTI and RUL pneumonia. Pharmacy was consulted for glycemic management while she is admitted as she had been started on iv methylprednisolone q 6 hours (reduced to q 12 hours on 09/27) * BSGs ranged from 201-375mg/dL yesterday. A bolus insulin regimen with just the correction factor was started by the provider last evening. * Fasting BSG was 270mg/dL this morning. 12 units (0.2units/kg) of Lantus was ordered x 1 this morning and a Lantus scale (0, 6, or 12 units depending on BSG) was ordered for HS * Bolus insulin was tightened to ~ a stress of 3. PLAN FOR INPATIENT GLYCEMIC CONTROL: * Hold outpatient oral diabetes medications * Basal insulin * Lantus 18 units SQ QAM and Lantus scale at HS (0,6, or 12 units depending on BSG)--Max daily Lantus is = to TDD of weight based dosing with a stress of 3 * Bolus insulin * NovoLog per scale ACHS or Q6hrs while NPO * Goal Range: Low 120 mg/dL - High 160 mg/dL * Correction Factor: 20 mg/dL/unit * Nutritional / Prandial insulin per carb ratio of 1 unit per 8 grams CHO consumed
[2025-09-28] MEDS ORDERED: HEPARIN SOD 5,000 UNIT/0.5 ML VIAL SQ SCH (21:00)
[2025-09-29] MEDS: HEPARIN SOD 5,000 UNIT/0.5 ML VIAL SQ SCH (08:22)
--- NOTE | 2025-09-29 11:07 | Infectious Disease Consult ---
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 Syringe 20 mls @ 4 mls/min 09/28/25 10:30 09/28/25 21:36 IV 09/30/25 10:29 4 mls/min Q12H KALEY Administration Protocol Insulin Aspart 0 units 09/26/25 21:00 09/29/25 08:21 Insulin Aspart Per Unit Charge SC 10/26/25 20:59 5 units ACHS KALEY Administration Insulin Glargine 0 units 09/27/25 21:00 09/28/25 20:44 Lantus Per Unit Charge SC 10/27/25 20:59 Not Given HS [facility] Protocol Insulin Glargine 18 units 09/28/25 09:00 09/29/25 08:22 Lantus Per Unit Charge SC 10/28/25 08:59 18 units DAILY KALEY Administration Metoprolol Tartrate 2.5 mg 09/26/25 12:00 09/29/25 05:58 Metoprolol Tartrate 1 Mg/Ml Vial IV 10/26/25 11:59 2.5 mg Q6 KALEY Administration Polyethylene Glycol 17 gm 09/26/25 09:00 09/27/25 08:20 Polyethylene (Miralax) 17 Gm Pack PO 10/26/25 08:59 Not Given DAILY KALEY Rosuvastatin Calcium 10 mg 09/27/25 09:00 09/27/25 08:20 Rosuvastatin Calcium 10 Mg Tab PO 10/27/25 08:59 Not Given QAM KALEY Senna/Docusate Sodium 1 tab 09/26/25 09:00 09/27/25 08:20 Docusate Sodium/Senna 50/8.6mg Tab PO 10/26/25 08:59 Not Given QAM KALEY Umeclidinium/Vilanterol 1 puffs 09/26/25 09:00 09/29/25 08:28 Umeclidinium/Vilanterol 62.5/25mcg 7 Puffs/Inhaler INH 10/26/25 08:59 Not Given DAILY KALEY (1) Sepsis Sepsis type: sepsis due to unspecified organism
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
[2025-09-29 12:05] LABS: Hematocrit (blood only) 28.3 % (37.0-47.0); Hemoglobin 9.1 g/dl (12.0-16.0); Mean Corpuscular Hemoglobin 29.1 pg (25.0-34.0); Mean Corpuscular Volume 90.4 fL (80.0-100.0); Platelet Count 397 K/uL (130-400); RDW Standard Deviation 61.8 fL (36.4-46.3); Red Blood Count 3.13 M/uL (4.20-5.40); White Blood Count 12.54 K/ul (4.8-10.8)
[2025-09-29 12:24] LABS: Albumin Level 3.2 gm/dl (3.4-5.0); Anion Gap 10.0 (3-11); Blood Urea Nitrogen 51.0 mg/dl (6-23); Calcium 8.6 mg/dl (8.6-10.3); Carbon Dioxide 29.0 mmol/L (21-32); Chloride 105.0 mmol/L (98-107); Creatinine Clr Calc Pharmacy 24.4 ml/min; Glucose 207.0 mg/dl (70-99(Fasting)); Potassium 4.4 mmol/L (3.5-5.1); Sodium 144.0 mmol/L (136-145)
[2025-09-29 12:33] LABS: Immature Granulocytes # (auto) 0.11 K/uL (0.01-0.20); Immature Granulocytes % (auto) 0.9 %
--- NOTE | 2025-09-29 12:56 | Nephrology Progress Note ---
Date of Service September 29, 2025 Assessment & Plan (1) TATY (acute kidney injury): Plan: Non-oliguric. Electrolytes acceptable. Continue IVF to encourage positive fluid balance. Document strict I/O's. Clinical presentation consistent with ATN + dehydration related to sepsis with hemodynamic instability. Monitor metabolic profile daily. Medications are appropriate for kidney function. No emergent indication for dialysis at this time. Kidneys are unobstructed on CT. Gutierrez is draining. Repeat serum metabolic profile tomorrow AM. Admission and Anticipated Discharge Date Admission Date: September 25, 2025 Subjective No acute events overnight. Daniella is more awake this morning but remains disoriented. She is not able to engage in meaningful conversation. She remains afebrile. She did not endorse significant dyspnea or pain. Review of Systems Review of Systems: Unobtainable due to cognitive status Physical Exam Constitutional: + altered mental status; no acute distre ss Eyes: + anicteric sclerae ENMT: Mouth: + dry oral mucous membranes Neck: normal visual inspection and trachea midline Respiratory: + tachypneic; no labored breathing Au scultation: lungs clear to auscultation bilaterally (anteriorly) Cardiovascular: Rate/Rhythm: regular rhythm and + tachycardic Heart Sounds: normal S1 and normal S2 Extremities: no edema Gastrointestinal (Abdomen): Inspection/Auscultation: normal bowel sounds Percussion/Palpation: abdomen soft; no guarding and abdomen not rigid Musculoskeletal: Extremities: no cyanosis and no clubbing Skin: + turgor decreased; no jaundice Neurologic: awake Psychiatric: Orientation: + not oriented x 3 Results & Data Vital Signs (Past 12 Hours) Vital Signs Temp Pulse Pulse Resp BP BP Pulse Ox 09/29/25 11:52 120 H 145/74 H 09/29/25 11:45 36.8 C 112 H 24 145/74 H 93 09/29/25 11:41 09/29/25 11:03 98 H 22 89 L 09/29/25 07:34 36.6 C 99 H 22 137/70 95 09/29/25 06:51 100 H 18 91 09/29/25 06:13 91 H 159/75 H 09/29/25 05:58 93 H 148/80 H 09/29/25 02:38 36.4 C L 94 H 20 124/70 97 09/29/25 02:22 88 17 89 L 09/29/25 00:56 84 124/70 O2 Del Method O2 Flow Rate 09/29/25 11:52 09/29/25 11:45 Nasal Cannula 3 09/29/25 11:41 Nasal Cannula 3 09/29/25 11:03 Nasal Cannula 3 09/29/25 07:34 Nasal Cannula 4 09/29/25 06:51 Nasal Cannula 4 09/29/25 06:13 09/29/25 05:58 09/29/25 02:38 Nasal Cannula 09/29/25 02:22 Nasal Cannula 4 09/29/25 00:56 Laboratory Results Laboratory Results - last 24 hr 09/25/25 09/28/25 09/28/25 13:44 15:57 20:15 WBC RBC Hgb Hct MCV MCH MCHC RDW Std Deviation RDW Coeff of Dorcas Plt Count MPV Immature Gran % (Auto) Neut % (Auto) Lymph % (Auto) Gilmer % (Auto) Eos % (Auto) Baso % (Auto) Neut # (Auto) Lymph # (Auto) Gilmer # (Auto) Eos # (Auto) Baso # (Auto) Immature Gran # (Auto) Absolute Nucleated RBC Nucleated RBC % (auto) Sodium Potassium Chloride Carbon Dioxide Anion Gap BUN Creatinine Est Cr Clr Drug Dosing eGFR BUN/Creatinine Ratio Glucose POC Glucose 204 H 125 H Calcium Phosphorus Albumin Misc Micro Test Pending 09/29/25 09/29/25 09/29/25 00:04 04:24 07:20 WBC RBC Hgb Hct MCV MCH MCHC RDW Std Deviation RDW Coeff of Dorcas Plt Count MPV Immature Gran % (Auto) Neut % (Auto) Lymph % (Auto) Gilmer % (Auto) Eos % (Auto) Baso % (Auto) Neut # (Auto) Lymph # (Auto) Gilmer # (Auto) Eos # (Auto) Baso # (Auto) Immature Gran # (Auto) Absolute Nucleated RBC Nucleated RBC % (auto) Sodium Potassium Chloride Carbon Dioxide Anion Gap BUN Creatinine Est Cr Clr Drug Dosing eGFR BUN/Creatinine Ratio Glucose POC Glucose 111 H 128 H 137 H Calcium Phosphorus Albumin Misc Micro Test 09/29/25 09/29/25 11:29 11:39 WBC 12.54 H RBC 3.13 L Hgb 9.1 L Hct 28.3 L MCV 90.4 MCH 29.1 MCHC 32.2 RDW Std Deviation 61.8 H RDW Coeff of Dorcas 19.5 H Plt Count 397 MPV 9.9 Immature Gran % (Auto) 0.9 Neut % (Auto) 93.1 Lymph % (Auto) 2.5 Gilmer % (Auto) 3.3 Eos % (Auto) 0.0 Baso % (Auto) 0.2 Neut # (Auto) 11.67 H Lymph # (Auto) 0.31 L Gilmer # (Auto) 0.42 Eos # (Auto) 0.00 Baso # (Auto) 0.03 Immature Gran # (Auto) 0.11 Absolute Nucleated RBC 0.03 Nucleated RBC % (auto) 0.2 Sodium 144 Potassium 4.4 Chloride 105 Carbon Dioxide 29 Anion Gap 10 BUN 51 H Creatinine 1.70 H D Est Cr Clr Drug Dosing 24.4 eGFR 31.47 BUN/Creatinine Ratio 30.0 H Glucose 207 H POC Glucose 232 H Calcium 8.6 Phosphorus 2.5 D Albumin 3.2 L Misc Micro Test PG Care Time/CCT Total # of Minutes Spent Total Time Spent with Patient: Total time spent is greater than 50% in coordination of care (as documented) at patient's floor/unit and/or counseling patient: Coding Level of Care Code 08336 SUB INP/OBS CARE 2/35MIN Diagnoses TATY (acute kidney injury) N17.9
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
[2025-09-29] MEDS: METOPROLOL TARTRATE 50 MG TAB PO SCH (14:06)
[2025-09-29] MEDS: DAPTOmycin 600 MG in SYRINGE 0 ML IV SCH (17:49)
[2025-09-29] MEDS: FLUCONAZOLE 100 MG TAB PO ONE (20:14)
[2025-09-30] MEDS: MELATONIN 3 MG TAB PO PRN (00:09)
[2025-09-30] MEDS: ONDANSETRON INJ 2 MG/ML 2 ML VIAL IV PRN (00:14)
[2025-09-30 06:50] LABS: Hematocrit (blood only) 25.1 % (37.0-47.0); Hemoglobin 8.0 g/dl (12.0-16.0); Mean Corpuscular Hemoglobin 29.6 pg (25.0-34.0); Mean Corpuscular Volume 93.0 fL (80.0-100.0); Platelet Count 317 K/uL (130-400); RDW Standard Deviation 63.8 fL (36.4-46.3); Red Blood Count 2.70 M/uL (4.20-5.40); White Blood Count 10.56 K/ul (4.8-10.8)
[2025-09-30 07:05] LABS: Albumin Level 2.8 gm/dl (3.4-5.0); Anion Gap 8.0 (3-11); Bilirubin,Total 0.4 mg/dl (0.2-1.0); Calcium 8.2 mg/dl (8.6-10.3); Carbon Dioxide 29.0 mmol/L (21-32); Chloride 107.0 mmol/L (98-107); Potassium 5.0 mmol/L (3.5-5.1); Sodium 144.0 mmol/L (136-145)
[2025-09-30 07:11] LABS: Alanine Aminotransferase 40.0 U/L (7-52); Albumin Globulin Ratio 1.5 (0.9-2); Alkaline Phosphatase 121.0 U/L (34-104); Blood Urea Nitrogen 54.0 mg/dl (6-23); Creatinine Clr Calc Pharmacy 25.3 ml/min; Globulin 1.9 gm/dl (2.5-4.0); Glucose 155.0 mg/dl (70-99(Fasting)); Total Protein 4.7 gm/dl (6.0-8.3)
[2025-09-30 07:38] LABS: Immature Granulocytes # (auto) 0.12 K/uL (0.01-0.20); Immature Granulocytes % (auto) 1.1 %
[2025-09-30] MEDS: CYANOCOBALAMIN (B-12) 500 MCG TABLET PO SCH (07:43)
[2025-09-30] MEDS: FOLIC ACID 1 MG TAB PO SCH (07:44)
[2025-09-30] MEDS: THIAMINE HCL 100 MG TAB PO SCH (07:53)
[2025-09-30 09:11] LABS: Magnesium 2.1 mg/dl (1.7-2.4)
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
--- NOTE | 2025-09-30 10:45 | Nephrology Progress Note ---
Date of Service September 30, 2025 Assessment & Plan (1) TATY (acute kidney injury): Plan: Non-oliguric. Creatinine continues to trend down demonstrating renal recovery. Volume status improved. Electrolytes normal. Clinical presentation consistent with ATN + dehydration related to sepsis with hemodynamic instability. Monitor metabolic profile daily. Medications are appropriate for kidney function. No additional nephrology recommendations at this time. I will sign-off. Please call with questions or concerns. Admission and Anticipated Discharge Date Admission Date: September 25, 2025 Subjective No acute events overnight. Daniella was more awake this AM. I asked her if she remembered who I was and she told me, "Can you bring me a coke?" She denies pain or shortness of breath. Appetite is good. No fevers or chills. She remains non- oliguric. Review of Systems Review of Systems: All systems reviewed & are unremarkable except as noted in HPI & below Physical Exam Constitutional: + frail appearing; no acute distress Eyes: + anicteric sclerae ENMT: Mouth: + dry oral mucous membranes Neck: normal visual inspection and trachea midline Respiratory: normal respiratory effort Auscultation: lungs clear to auscultation bilaterally Cardiovascular: Rate/Rhythm: regular rate and regular rhythm Heart Sounds: normal S1 and normal S2 Extremities: no edema Musculoskeletal: Extremities: no cyanosis and no clubbing Skin: + turgor decreased; no jaundice Neurologic: awake Psychiatric: Orientation: + not oriented x 3 Results & Data Vital Signs (Past 12 Hours) Vital Signs Temp Pulse Resp BP BP Pulse Ox O2 Del Method 09/30/25 09:00 Nasal Cannula 09/30/25 07:57 36.7 C 85 23 145/67 H 88 L Nasal Cannula 09/30/25 07:11 88 16 90 Nasal Cannula 09/30/25 06:43 91 Nasal Cannula 09/30/25 04:23 62 96 High Flow Nasal Cannula 09/30/25 04:03 96 High Flow Nasal Cannula 09/30/25 03:55 75 L Nasal Cannula 09/30/25 03:47 36.3 C L 66 18 129/74 92 Nasal Cannula 09/30/25 02:00 76 15 95 Nasal Cannula 09/30/25 01:30 66 16 134/70 94 Nasal Cannula 09/29/25 23:43 36.6 C 68 18 176/76 H 96 Nasal Cannula 09/29/25 23:19 81 15 95 Nasal Cannula O2 Flow Rate 09/30/25 09:00 5 09/30/25 07:57 5 09/30/25 07:11 3 09/30/25 06:43 3 09/30/25 04:23 4 09/30/25 04:03 8 09/30/25 03:55 3 09/30/25 03:47 09/30/25 02:00 3 09/30/25 01:30 3 09/29/25 23:43 3 09/29/25 23:19 3 Laboratory Results Laboratory Results - last 24 hr 09/29/25 09/29/25 09/29/25 11:29 11:39 16:19 WBC 12.54 H RBC 3.13 L Hgb 9.1 L Hct 28.3 L MCV 90.4 MCH 29.1 MCHC 32.2 RDW Std Deviation 61.8 H RDW Coeff of Dorcas 19.5 H Plt Count 397 MPV 9.9 Immature Gran % (Auto) 0.9 Neut % (Auto) 93.1 Lymph % (Auto) 2.5 [place] % (Auto) 3.3 Eos % (Auto) 0.0 Baso % (Auto) 0.2 Neut # (Auto) 11.67 H Lymph # (Auto) 0.[address] [place] # (Auto) 0.42 Eos # (Auto) 0.00 Baso # (Auto) 0.03 Immature Gran # (Auto) 0.11 Absolute Nucleated RBC 0.03 Nucleated RBC % (auto) 0.2 Sodium 144 Potassium 4.4 Chloride 105 Carbon Dioxide 29 Anion Gap 10 BUN 51 H Creatinine 1.70 H D Est Cr Clr Drug Dosing 24.4 eGFR 31.47 BUN/Creatinine Ratio 30.0 H Glucose 207 H POC Glucose 232 H 117 H Calcium 8.6 Phosphorus 2.5 D Magnesium Total Bilirubin AST ALT Alkaline Phosphatase Total Protein Albumin 3.2 L Globulin Albumin/Globulin Ratio 09/29/25 09/30/25 09/30/25 20:49 00:10 03:20 WBC RBC Hgb Hct MCV MCH MCHC RDW Std Deviation RDW Coeff of Dorcas Plt Count MPV Immature Gran % (Auto) Neut % (Auto) Lymph % (Auto) [place] % (Auto) Eos % (Auto) Baso % (Auto) Neut # (Auto) Lymph # (Auto) [place] # (Auto) Eos # (Auto) Baso # (Auto) Immature Gran # (Auto) Absolute Nucleated RBC Nucleated RBC % (auto) Sodium Potassium Chloride Carbon Dioxide Anion Gap BUN Creatinine Est Cr Clr Drug Dosing eGFR BUN/Creatinine Ratio Glucose POC Glucose 238 H 127 H 135 H Calcium Phosphorus Magnesium Total Bilirubin AST ALT Alkaline Phosphatase Total Protein Albumin Globulin Albumin/Globulin Ratio 09/30/25 09/30/25 06:13 07:14 WBC 10.56 RBC 2.70 L Hgb 8.0 L Hct 25.1 L MCV 93.0 MCH 29.6 MCHC 31.9 L RDW Std Deviation 63.8 H RDW Coeff of Dorcas 19.3 H Plt Count 317 MPV 10.2 Immature Gran % (Auto) 1.1 Neut % (Auto) 93.9 Lymph % (Auto) 2.8 [place] % (Auto) 2.1 Eos % (Auto) 0.0 Baso % (Auto) 0.1 Neut # (Auto) 9.91 H Lymph # (Auto) 0.[address] [place] # (Auto) 0.22 Eos # (Auto) 0.00 Baso # (Auto) 0.01 Immature Gran # (Auto) 0.12 Absolute Nucleated RBC Nucleated RBC % (auto) Sodium 144 Potassium 5.0 Chloride 107 Carbon Dioxide 29 Anion Gap 8 BUN 54 H Creatinine 1.64 H Est Cr Clr Drug Dosing 25.3 eGFR 32.85 BUN/Creatinine Ratio 32.9 H Glucose 155 H POC Glucose 177 H Calcium 8.2 L Phosphorus Magnesium 2.1 Total Bilirubin 0.4 AST 39 ALT 40 Alkaline Phosphatase 121 H Total Protein 4.7 L Albumin 2.8 L Globulin 1.9 L Albumin/Globulin Ratio 1.5 PG Care Time/CCT Total # of Minutes Spent Total Time Spent with Patient: Total time spent is greater than 50% in coordination of care (as documented) at patient's floor/unit and/or counseling patient: Coding Level of Care Code 60384 SUB INP/OBS CARE 2/35MIN Diagnoses TATY (acute kidney injury) N17.9
--- NOTE | 2025-09-30 10:47 | XRay Report ---
XR chest 1V portable CLINICAL HISTORY: aspiration, hypoxia COMPARISON STUDY: 09/27/2025 FINDINGS: Stable mild cardiomegaly without pulmonary vascular congestion. There is increased opacity at the right lower lung with obscuration of the right hemidiaphragm. Stable mild hazy opacity at the left lung base with blunting of the left costophrenic angle. No pneumothorax. IMPRESSION: 1. Stable mild opacity left lung base. 2. Increased consolidation/possible pleural effusion right lung base. ACT 112: Negative or not required by law. Electronically signed by: Anthony Quiroz M.D. 09/30/2025 10:46 AM
[2025-09-30] MEDS ORDERED: ALBUT/IPRATROP 3MG/0.5MG NEB 3 ML VIAL NEB PRN (11:17)
[2025-09-30] MEDS: AMPICILLIN/SULBACTAM SOD 3,000 MG/100 ML BAG IV SCH (11:46)
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
--- NOTE | 2025-09-30 14:23 | Pharmacy Report ---
Pharmacy Glycemic Short Note 2 - Date of Service September 30, 2025 - Glycemic Short BSG Results (Last 24 hours): 09/29/25 09/29/25 09/30/25 16:19 20:49 00:10 Glucose POC Glucose 117 H 238 H 127 H 09/30/25 09/30/25 09/30/25 03:20 06:13 07:14 Glucose 155 H POC Glucose 135 H 177 H 09/30/25 10:45 Glucose POC Glucose 323 H* OUTPATIENT ANTIDIABETIC REGIMEN: * glimepiride 4mg PO daily * metformin 1000mg PO BID HbA1c: 8.7% on 09/10/25 ASSESSMENT: 09/30: * Patient received total of 34 units of insulin yesterday, of which 18 units were basal insulin * Fasting BSG 155 mg/dL - continue current basal * Steroids now decreasing to daily, will loosen parameters tomorrow 09/28: * Daniella received a total of 34 units of insulin yesterday. BSGs were all above goal. * Fasting BSG was 242mg/dL this morning. Lantus 18 units SQ daily was ordered and HS Lantus scale (0,6, or 12 units depending on BSG) will be continued * Bolus insulin parameters were tightened yesterday, so will continue for now without change. 09/27: * Nanda is a 75 year old female who was admitted with an acute UTI and RUL pneumonia. Pharmacy was consulted for glycemic management while she is admitted as she had been started on iv methylprednisolone q 6 hours (reduced to q 12 hours on 09/27) * BSGs ranged from 201-375mg/dL yesterday. A bolus insulin regimen with just the correction factor was started by the provider last evening. * Fasting BSG was 270mg/dL this morning. 12 units (0.2units/kg) of Lantus was ordered x 1 this morning and a Lantus scale (0, 6, or 12 units depending on BSG) was ordered for HS * Bolus insulin was tightened to ~ a stress of 3. PLAN FOR INPATIENT GLYCEMIC CONTROL: * Hold outpatient oral diabetes medications * Basal insulin * Lantus 18 units SQ QAM * Bolus insulin * NovoLog per scale ACHS or Q6hrs while NPO * Goal Range: Low 120 mg/dL - High 160 mg/dL * Correction Factor: 20 mg/dL/unit * Nutritional / Prandial insulin per carb ratio of 1 unit per 8 grams CHO consumed
[2025-09-30] MEDS: CETIRIZINE HCL 10 MG TABLET PO ONE (21:18)
[2025-10-01 07:28] LABS: Hematocrit (blood only) 26.4 % (37.0-47.0); Hemoglobin 8.0 g/dl (12.0-16.0); Immature Granulocytes # (auto) 0.30 K/uL (0.01-0.20); Immature Granulocytes % (auto) 2.4 %; Mean Corpuscular Hemoglobin 28.9 pg (25.0-34.0); Mean Corpuscular Volume 95.3 fL (80.0-100.0); Platelet Count 322 K/uL (130-400); RDW Standard Deviation 65.9 fL (36.4-46.3); Red Blood Count 2.77 M/uL (4.20-5.40); White Blood Count 12.59 K/ul (4.8-10.8)
[2025-10-01 07:41] LABS: Anion Gap 5.0 (3-11); Blood Urea Nitrogen 48.0 mg/dl (6-23); Calcium 8.3 mg/dl (8.6-10.3); Carbon Dioxide 33.0 mmol/L (21-32); Chloride 104.0 mmol/L (98-107); Creatinine Clr Calc Pharmacy 26.6 ml/min; Glucose 187.0 mg/dl (70-99(Fasting)); Iron 91.0 mcg/dl (35-150); Magnesium 1.8 mg/dl (1.7-2.4); Potassium 4.8 mmol/L (3.5-5.1); Sodium 142.0 mmol/L (136-145); Total Iron Binding Cap Calc 248.0 mcg/dl (250-450); Transferrin 177.0 mg/dl (200-360); Transferrin (FE) Percent Satur 37.0 % (15-50)
[2025-10-01 07:55] LABS: Thyroid Stimulating Hormone 1.107 uIu/ml (0.300-4.500)
[2025-10-01 08:01] LABS: Ferritin 702.1 ng/ml (8-388)
[2025-10-01 08:09] LABS: Folate (Folic Acid),Ser orPlas 14.24 ng/ml (>5.38)
[2025-10-01 08:10] LABS: Vitamin B12 703.0 pg/ml (180-914)
[2025-10-01] MEDS: LANTUS PER UNIT CHARGE SC SCH (08:28)
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
[2025-10-01] MEDS: diphenhydrAMINE Capsule 25 MG CAP PO ONE (20:01)
[2025-10-02 06:56] LABS: Hematocrit (blood only) 26.7 % (37.0-47.0); Hemoglobin 8.2 g/dl (12.0-16.0); Immature Granulocytes # (auto) 0.39 K/uL (0.01-0.20); Immature Granulocytes % (auto) 3.3 %; Mean Corpuscular Hemoglobin 29.3 pg (25.0-34.0); Mean Corpuscular Volume 95.4 fL (80.0-100.0); Platelet Count 333 K/uL (130-400); RDW Standard Deviation 64.4 fL (36.4-46.3); Red Blood Count 2.80 M/uL (4.20-5.40); White Blood Count 11.92 K/ul (4.8-10.8)
[2025-10-02 07:20] LABS: Alanine Aminotransferase 157.0 U/L (7-52); Albumin Level 3.0 gm/dl (3.4-5.0); Alkaline Phosphatase 133.0 U/L (34-104); Anion Gap 3.0 (3-11); Bilirubin,Total 0.5 mg/dl (0.2-1.0); Blood Urea Nitrogen 45.0 mg/dl (6-23); Calcium 8.6 mg/dl (8.6-10.3); Carbon Dioxide 36.0 mmol/L (21-32); Chloride 104.0 mmol/L (98-107); Creatinine Clr Calc Pharmacy 28.8 ml/min; Glucose 193.0 mg/dl (70-99(Fasting)); Potassium 5.9 mmol/L (3.5-5.1); Sodium 143.0 mmol/L (136-145); Total Protein 5.1 gm/dl (6.0-8.3)
[2025-10-02] MEDS: LANTUS PER UNIT CHARGE SC SCH (09:13)
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
[2025-10-02] MEDS: FUROSEMIDE INJ 20 MG/2 ML VIAL IV ONE ×2 (12:17→16:30)
[2025-10-03 07:49] LABS: Hematocrit (blood only) 27.3 % (37.0-47.0); Hemoglobin 8.5 g/dl (12.0-16.0); Mean Corpuscular Hemoglobin 29.4 pg (25.0-34.0); Mean Corpuscular Volume 94.5 fL (80.0-100.0); Platelet Count 304 K/uL (130-400); RDW Standard Deviation 63.1 fL (36.4-46.3); Red Blood Count 2.89 M/uL (4.20-5.40); White Blood Count 11.12 K/ul (4.8-10.8)
[2025-10-03 08:03] LABS: Alanine Aminotransferase 105.0 U/L (7-52); Albumin Globulin Ratio 1.5 (0.9-2); Albumin Level 2.9 gm/dl (3.4-5.0); Alkaline Phosphatase 117.0 U/L (34-104); Anion Gap 1.0 (3-11); Bilirubin,Total 0.4 mg/dl (0.2-1.0); Blood Urea Nitrogen 43.0 mg/dl (6-23); Calcium 8.5 mg/dl (8.6-10.3); Carbon Dioxide 40.0 mmol/L (21-32); Chloride 101.0 mmol/L (98-107); Creatinine Clr Calc Pharmacy 29.6 ml/min; Globulin 1.9 gm/dl (2.5-4.0); Glucose 103.0 mg/dl (70-99(Fasting)); Potassium 5.2 mmol/L (3.5-5.1); Sodium 142.0 mmol/L (136-145); Total Protein 4.8 gm/dl (6.0-8.3)
--- NOTE | 2025-10-03 10:16 | XRay Report ---
XR chest 1V portable CLINICAL HISTORY: RLL pneumonia COMPARISON STUDY: 09/30/2025 FINDINGS: Stable cardiomegaly with pulmonary vascular congestion. Stable small to moderate bilateral pleural effusions and lung base consolidation. No pneumothorax. IMPRESSION: Stable exam. ACT 112: Negative or not required by law. Electronically signed by: Anthony Quiroz M.D. 10/03/2025 10:15 AM
--- NOTE | 2025-10-03 10:42 | Hospitalist Progress Note ---
Date of Service October 03, 2025 Assessment & Plan (1) Aspiration pneumonia: Plan: The patient completed Unasyn antibiotic yesterday, October 02. Chest x-ray will be repeated again today, October 03. She is on 5 L of oxygen with 95% saturation at this time. (2) Sepsis: Plan: Present on admission. Now resolved (3) Acute UTI: Plan: Present on admission. Now resolved with antibiotic therapy (4) TATY (acute kidney injury): Plan: Mild on admission. Now resolved. This appeared to be acute on chronic kidney disease stage III Plan Anticipate discharge to [facility] when insurance authorization is received. Admission and Anticipated Discharge Date Admission Date: September 25, 2025 Subjective Alert and oriented. No distress. The patient states she feels as if she is ready to go to SNF. She is on 5 L of oxygen per nasal cannula at this time. Unasyn antibiotic was completed yesterday, October 02. Review of Systems 2 Review of Systems: Constitutionalno fever or chills ENTno blurred vision, no double vision, no epistaxis, no sore throat Respiratoryno cough, no wheezing, no shortness of breath at rest. Chronic dyspnea on exertion Cardiacno palpitations, no chest pain, no syncope Jessica nausea, vomiting, diarrhea, melena, hematochezia GUno urinary retention, no urinary incontinence, no dysuria, no hematuria Musculoskeletalno joint pain, no muscle tenderness Skinno bruising, no rashes, no pruritus Neurono isolated weakness, no paresthesia, no weakness Psychno depression, no anxiety Physical Exam 2 Physical Exam: General-alert and oriented x3, no fever, no chills HEENT-head atraumatic and normocephalic, pupils equal and reactive to light, extraocular muscles intact Neck-no lymphadenopathy or thyromegaly, trachea midline Chest-diminished breath sounds bilaterally. No audible rales wheezing or rhonchi Cardiac-regular rate and rhythm, normal S1 and S2 Abdomen-normal bowel sounds, no hepatosplenomegaly Extremities-no cyanosis, clubbing, or edema Neuro-cranial nerves II through XII intact, motor and sensory function within normal limits, strength symmetrical, no focal deficits Psych-normal affect, normal mood Results & Data Results & Data Vital Signs (Past 12 Hours) Vital Signs Temp Pulse Resp BP Pulse Ox O2 Del Method O2 Flow Rate 10/03/25 07:06 36.4 C L 57 L 16 168/74 H 95 Nasal Cannula 5 10/02/25 23:05 36.8 C 63 18 174/79 H 92 Nasal Cannula 5 Laboratory Results 10/03/25 07:28 10/03/25 07:28 PG Care Time/CCT Total # of Minutes Spent Total Time Spent with Patient: Total time spent is greater than 50% in coordination of care (as documented) at patient's floor/unit and/or counseling patient: Coding Level of Care Code 99070 SUB INP/OBS CARE 3/50MIN Diagnoses Aspiration pneumonia of both lower lobes due to vomit J69.0 Aspiration pneumonia type: due to vomit Laterality: bilateral Lung location: lower lobe of lung Sepsis A41.9 Sepsis type: sepsis due to unspecified organism Acute UTI N39.0 TATY (acute kidney injury) N17.9 (1) Aspiration pneumonia Aspiration pneumonia type: due to vomit Laterality: bilateral Lung location: lower lobe of lung Qualified Code(s): J69.0 - Pneumonitis due to inhalation of food and vomit (2) Sepsis Sepsis type: sepsis due to unspecified organism
--- NOTE | 2025-10-03 11:22 | Pharmacy Report ---
Pharmacy Glycemic Short Note 2 - Date of Service October 03, 2025 - Glycemic Short BSG Results (Last 24 hours): 10/02/25 10/02/25 10/02/25 11:35 16:52 20:34 Glucose POC Glucose 227 H 86 146 H 10/03/25 10/03/25 10/03/25 07:28 07:36 11:17 Glucose 103 H POC Glucose 93 207 H OUTPATIENT ANTIDIABETIC REGIMEN: * glimepiride 4mg PO daily * metformin 1000mg PO BID HbA1c: 8.7% on 09/10/25 ASSESSMENT: 10/03: * Patient received total of 29 units of insulin yesterday, of which 8 units were basal * Fasting BSS 93 mg/dL - will hold basal as no further steroids ordered * Loosen CF/CR 09/30: * Patient received total of 34 units of insulin yesterday, of which 18 units were basal insulin * Fasting BSG 155 mg/dL - continue current basal * Steroids now decreasing to daily, will loosen parameters tomorrow 09/28: * Daniella received a total of 34 units of insulin yesterday. BSGs were all above goal. * Fasting BSG was 242mg/dL this morning. Lantus 18 units SQ daily was ordered and HS Lantus scale (0,6, or 12 units depending on BSG) will be continued * Bolus insulin parameters were tightened yesterday, so will continue for now without change. 09/27: * Nanda is a 75 year old female who was admitted with an acute UTI and RUL pneumonia. Pharmacy was consulted for glycemic management while she is admitted as she had been started on iv methylprednisolone q 6 hours (reduced to q 12 hours on 09/27) * BSGs ranged from 201-375mg/dL yesterday. A bolus insulin regimen with just the correction factor was started by the provider last evening. * Fasting BSG was 270mg/dL this morning. 12 units (0.2units/kg) of Lantus was ordered x 1 this morning and a Lantus scale (0, 6, or 12 units depending on BSG) was ordered for HS * Bolus insulin was tightened to ~ a stress of 3. PLAN FOR INPATIENT GLYCEMIC CONTROL: * Hold outpatient oral diabetes medications * Basal insulin * Lantus - hold * Bolus insulin * NovoLog per scale ACHS or Q6hrs while NPO * Goal Range: Low 120 mg/dL - High 160 mg/dL * Correction Factor: 30 mg/dL/unit * Nutritional / Prandial insulin per carb ratio of 1 unit per 12 grams CHO consumed
[2025-10-03] MEDS: CARBOHYDRATES FOR HYPOGLYCEMIA PO PRN (16:33)
--- NOTE | 2025-10-04 07:35 | Pharmacy Report ---
Pharmacy Glycemic Short Note 2 - Date of Service October 04, 2025 - Glycemic Short BSG Results (Last 24 hours): 10/03/25 10/03/25 10/03/25 07:28 07:36 11:17 Glucose 103 H POC Glucose 93 207 H 10/03/25 10/03/25 10/03/25 16:25 16:49 17:07 Glucose POC Glucose 69 L* 198 H 105 H 10/03/25 10/04/25 20:34 07:19 Glucose POC Glucose 191 H 149 H OUTPATIENT ANTIDIABETIC REGIMEN: * glimepiride 4mg PO daily * metformin 1000mg PO BID HbA1c: 8.7% on 09/10/25 ASSESSMENT: 10/04: * Patient received total of 10 units of insulin yesterday, all of which were correctional * BSGs trending down to 69 mg/dL at dinner time despite loosening parameters yesterday and holding basal * Will plan to loosen novolog more this AM 10/03: * Patient received total of 29 units of insulin yesterday, of which 8 units were basal * Fasting BSS 93 mg/dL - will hold basal as no further steroids ordered * Loosen CF/CR 09/30: * Patient received total of 34 units of insulin yesterday, of which 18 units wer e basal insulin * Fasting BSG 155 mg/dL - continue current basal * Steroids now decreasing to daily, will loosen parameters tomorrow 09/28: * Daniella received a total of 34 units of insulin yesterday. BSGs were all above goal. * Fasting BSG was 242mg/dL this morning. Lantus 18 units SQ daily was ordered and HS Lantus scale (0,6, or 12 units depending on BSG) will be continued * Bolus insulin parameters were tightened yesterday, so will continue for now without change. 09/27: * Nanda is a 75 year old female who was admitted with an acute UTI and RUL pneumonia. Pharmacy was consulted for glycemic management while she is admitted as she had been started on iv methylprednisolone q 6 hours (reduced to q 12 hours on 09/27) * BSGs ranged from 201-375mg/dL yesterday. A bolus insulin regimen with just the correction factor was started by the provider last evening. * Fasting BSG was 270mg/dL this morning. 12 units (0.2units/kg) of Lantus was ordered x 1 this morning and a Lantus scale (0, 6, or 12 units depending on BSG) was ordered for HS * Bolus insulin was tightened to ~ a stress of 3. PLAN FOR INPATIENT GLYCEMIC CONTROL: * Hold outpatient oral diabetes medications * Basal insulin * Lantus - hold * Bolus insulin * NovoLog per scale ACHS or Q6hrs while NPO * Goal Range: Low 120 mg/dL - High 160 mg/dL * Correction Factor: 40 mg/dL/unit * Nutritional / Prandial insulin per carb ratio of 1 unit per 15 grams CHO consumed
[2025-10-04 08:33] LABS: Hematocrit (blood only) 26.9 % (37.0-47.0); Hemoglobin 8.3 g/dl (12.0-16.0); Mean Corpuscular Hemoglobin 29.4 pg (25.0-34.0); Mean Corpuscular Volume 95.4 fL (80.0-100.0); Platelet Count 280 K/uL (130-400); RDW Standard Deviation 63.4 fL (36.4-46.3); Red Blood Count 2.82 M/uL (4.20-5.40); White Blood Count 10.07 K/ul (4.8-10.8)
[2025-10-04 09:26] LABS: Albumin Globulin Ratio 1.5 (0.9-2); Albumin Level 2.8 gm/dl (3.4-5.0); Anion Gap 5.0 (3-11); Bilirubin,Total 0.4 mg/dl (0.2-1.0); Blood Urea Nitrogen 35.0 mg/dl (6-23); Chloride 101.0 mmol/L (98-107); Creatinine Clr Calc Pharmacy 32.9 ml/min; Globulin 1.9 gm/dl (2.5-4.0); Potassium 5.3 mmol/L (3.5-5.1); Total Protein 4.7 gm/dl (6.0-8.3)
[2025-10-04 09:35] LABS: Alanine Aminotransferase 82.0 U/L (7-52); Alkaline Phosphatase 123.0 U/L (34-104); Calcium 8.4 mg/dl (8.6-10.3); Carbon Dioxide 33.0 mmol/L (21-32); Glucose 150.0 mg/dl (70-99(Fasting)); Sodium 139.0 mmol/L (136-145)
[2025-10-04] MEDS ORDERED: GLUCOSE 10 TAB/TUBE PO PRN (10:01)
[2025-10-04] MEDS ORDERED: DEXTROSE 50% 50 ML SYRINGE IV PRN (10:01)
[2025-10-04] MEDS ORDERED: GLUCOSE 40% GEL 15 GM TUBE PO PRN (10:01)
[2025-10-04] MEDS ORDERED: CARBOHYDRATES FOR HYPOGLYCEMIA PO PRN (10:01)
[2025-10-04] MEDS ORDERED: GLUCAGON FOR INJ 1 MG VIAL SQ PRN (10:01)
[2025-10-04] MEDS: INSULIN ASPART PER UNIT CHARGE SC SCH (12:10)
--- NOTE | 2025-10-04 12:38 | Hospitalist Progress Note ---
Date of Service October 04, 2025 Assessment & Plan (1) Aspiration pneumonia: Plan: The patient completed Unasyn antibiotic on October 02. Chest x-ray on October 03 remains stable. She is on 5 L of oxygen with 96% saturation at this time. (2) Sepsis: Plan: Present on admission. Now resolved (3) Acute UTI: Plan: Present on admission. Now resolved with antibiotic therapy (4) TATY (acute kidney injury): Plan: Mild on admission. Now resolved. This appeared to be acute on chronic kidney disease stage III (5) Type 2 diabetes mellitus: Plan: ADA diet. Sliding scale coverage while hospitalized. She will resume her usual diabetic management at discharge Plan Anticipate discharge to [facility] when insurance authorization is received. Admission and Anticipated Discharge Date Admission Date: September 25, 2025 Subjective No new problems. Oxygen saturation 96% on 5 L. She states repeatedly that she needs to leave the hospital today and go to [facility]. I told her that insurance authorization remains pending. Potassium is 5.3 today, October 04. She is on no potassium supplements or medications that could cause hyperkalemia. Will follow. Glucose 150 this morning, October 04. Review of Systems 2 Review of Systems: Constitutionalno fever or chills ENTno blurred vision, no double vision, no epistaxis, no sore throat Respiratoryno cough, no wheezing, no shortness of breath at rest. Chronic dyspnea on exertion Cardiacno palpitations, no chest pain, no syncope Jessica nausea, vomiting, diarrhea, melena, hematochezia GUno urinary retention, no urinary incontinence, no dysuria, no hematuria Musculoskeletalno joint pain, no muscle tenderness Skinno bruising, no rashes, no pruritus Neurono isolated weakness, no paresthesia, no weakness Psychno depression, no anxiety Physical Exam 2 Physical Exam: General-alert and oriented x3, no fever, no chills HEENT-head atraumatic and normocephalic, pupils equal and reactive to light, extraocular muscles intact Neck-no lymphadenopathy or thyromegaly, trachea midline Chest-diminished breath sounds bilaterally. No audible rales wheezing or rhonchi Cardiac-regular rate and rhythm, normal S1 and S2 Abdomen-normal bowel sounds, no hepatosplenomegaly Extremities-no cyanosis, clubbing, or edema Neuro-cranial nerves II through XII intact, motor and sensory function within normal limits, strength symmetrical, no focal deficits Psych-normal affect, normal mood Results & Data Results & Data Vital Signs (Past 12 Hours) Vital Signs Temp Pulse Resp BP Pulse Ox O2 Del Method O2 Flow Rate 10/04/25 07:30 Nasal Cannula 5 10/04/25 07:20 36.6 C 71 14 153/84 H 96 Nasal Cannula 5 Laboratory Results 10/04/25 07:27 10/04/25 07:27 PG Care Time/CCT Total # of Minutes Spent Total Time Spent with Patient: Total time spent is greater than 50% in coordination of care (as documented) at patient's floor/unit and/or counseling patient: Coding Level of Care Code 35009 SUB INP/OBS CARE 235MIN Diagnoses Aspiration pneumonia of both lower lobes due to vomit J69.0 Aspiration pneumonia type: due to vomit Laterality: bilateral Lung location: lower lobe of lung Sepsis A41.9 Sepsis type: sepsis due to unspecified organism Acute UTI N39.0 TATY (acute kidney injury) N17.9 Type 2 diabetes mellitus E11.9 (1) Aspiration pneumonia Aspiration pneumonia type: due to vomit Laterality: bilateral Lung location: lower lobe of lung Qualified Code(s): J69.0 - Pneumonitis due to inhalation of food and vomit (2) Sepsis Sepsis type: sepsis due to unspecified organism
[2025-10-05 08:13] LABS: Hematocrit (blood only) 24.9 % (37.0-47.0); Hemoglobin 7.7 g/dL (12.0-16.0); Mean Corpuscular Hemoglobin 29.3 pg (25.0-34.0); Mean Corpuscular Volume 94.7 fL (80.0-100.0); Platelet Count 247 K/uL (130-400); RDW Standard Deviation 64.0 fL (36.4-46.3); Red Blood Count 2.63 M/uL (4.20-5.40); White Blood Count 8.55 K/ul (4.8-10.8)
[2025-10-05 08:33] LABS: Alanine Aminotransferase 82.0 U/L (7-52); Albumin Globulin Ratio 1.4 (0.9-2); Albumin Level 2.7 gm/dl (3.4-5.0); Alkaline Phosphatase 124.0 U/L (34-104); Anion Gap 3.0 (3-11); Bilirubin,Total 0.4 mg/dl (0.2-1.0); Blood Urea Nitrogen 34.0 mg/dl (6-23); Calcium 8.2 mg/dl (8.6-10.3); Carbon Dioxide 34.0 mmol/L (21-32); Chloride 103.0 mmol/L (98-107); Creatinine Clr Calc Pharmacy 35.1 ml/min; Globulin 1.9 gm/dl (2.5-4.0); Glucose 248.0 mg/dl (70-99(Fasting)); Potassium 4.5 mmol/L (3.5-5.1); Sodium 140.0 mmol/L (136-145); Total Protein 4.6 gm/dl (6.0-8.3)
--- NOTE | 2025-10-05 11:15 | Hospitalist Progress Note ---
Date of Service October 05, 2025 Assessment & Plan (1) Aspiration pneumonia: Plan: The patient completed Unasyn antibiotic on October 02. Chest x-ray on October 03 remains stable. She is on 5 L of oxygen with 96% saturation at this time. Will wean down it to her usual 3 L oxygen per minute per nasal cannula if possible (2) Sepsis: Plan: Present on admission. Now resolved (3) Acute UTI: Plan: Present on admission. Now resolved with antibiotic therapy (4) TATY (acute kidney injury): Plan: Mild on admission. Now resolved. This appeared to be acute on chronic kidney disease stage III (5) Type 2 diabetes mellitus: Plan: ADA diet. Sliding scale coverage while hospitalized. She will resume her usual diabetic management at discharge (6) Anemia: Plan: Hemoglobin has dropped to 7.7. No overt melena or hematochezia. Eliquis has been discontinued today, October 05. Fecal occult blood ordered and pending Plan Anticipate discharge to [facility] when insurance authorization is received. If it is denied, she will go home with home health services. Admission and Anticipated Discharge Date Admission Date: September 25, 2025 Subjective Alert and oriented. No distress. Hemoglobin has dropped to 7.7 but no overt GI bleeding. Eliquis has been discontinued will check fecal occult blood. Serial labs ordered. Repeat potassium level today, October 05, is down to 4.5. She remains on 5 L oxygen with saturation 96%. This will be decreased as tolerated down to 3 L/min. Awaiting insurance authorization for discharge to [facility]. Otherwise, she will go home with home health services. Review of Systems 2 Review of Systems: Constitutionalno fever or chills ENTno blurred vision, no double vision, no epistaxis, no sore throat Respiratoryno cough, no wheezing, no shortness of breath at rest. Chronic dyspnea on exertion Cardiacno palpitations, no chest pain, no syncope Jessica nausea, vomiting, diarrhea, melena, hematochezia GUno urinary retention, no urinary incontinence, no dysuria, no hematuria Musculoskeletalno joint pain, no muscle tenderness Skinno bruising, no rashes, no pruritus Neurono isolated weakness, no paresthesia, no weakness Psychno depression, no anxiety Physical Exam 2 Physical Exam: General-alert and oriented x3, no fever, no chills HEENT-head atraumatic and normocephalic, pupils equal and reactive to light, extraocular muscles intact Neck-no lymphadenopathy or thyromegaly, trachea midline Chest-diminished breath sounds bilaterally. No audible rales wheezing or rhonchi Cardiac-regular rate and rhythm, normal S1 and S2 Abdomen-normal bowel sounds, no hepatosplenomegaly Extremities-no cyanosis, clubbing, or edema Neuro-cranial nerves II through XII intact, motor and sensory function within normal limits, strength symmetrical, no focal deficits Psych-normal affect, normal mood Results & Data Results & Data Vital Signs (Past 12 Hours) Vital Signs Temp Pulse Resp BP BP Pulse Ox O2 Del Method 10/05/25 10:06 158/72 H 10/05/25 07:27 36.8 C 67 16 169/72 H 96 Nasal Cannula O2 Flow Rate 10/05/25 10:06 10/05/25 07:27 5 Laboratory Results 10/05/25 07:39 10/05/25 07:39 PG Care Time/CCT Total # of Minutes Spent Total Time Spent with Patient: Total time spent is greater than 50% in coordination of care (as documented) at patient's floor/unit and/or counseling patient: Coding Level of Care Code 12101 SUB INP/OBS CARE 2/35MIN Diagnoses Aspiration pneumonia of both lower lobes due to vomit J69.0 Aspiration pneumonia type: due to vomit Laterality: bilateral Lung location: lower lobe of lung Sepsis A41.9 Sepsis type: sepsis due to unspecified organism Acute UTI N39.0 TATY (acute kidney injury) N17.9 Type 2 diabetes mellitus E11.9 Anemia D64.9 Anemia type: unspecified type (1) Aspiration pneumonia Aspiration pneumonia type: due to vomit Laterality: bilateral Lung location: lower lobe of lung Qualified Code(s): J69.0 - Pneumonitis due to inhalation of food and vomit (2) Sepsis Sepsis type: sepsis due to unspecified organism (6) Anemia Anemia type: unspecified type Qualified Code(s): D64.9 - Anemia, unspecified
[2025-10-06 08:29] LABS: Hematocrit (blood only) 27.2 % (37.0-47.0); Hemoglobin 8.4 g/dL (12.0-16.0); Mean Corpuscular Hemoglobin 29.7 pg (25.0-34.0); Mean Corpuscular Volume 96.1 fL (80.0-100.0); Platelet Count 259 K/uL (130-400); RDW Standard Deviation 67.5 fL (36.4-46.3); Red Blood Count 2.83 M/uL (4.20-5.40); White Blood Count 7.44 K/ul (4.8-10.8)
[2025-10-06 11:01] VITALS: TEMP 98.1
[2025-10-06 11:54] VITALS: BP 166/70; PULSE 80; RESP 18; O2SAT 93
--- NOTE | 2025-10-06 12:03 | Discharge Summary ---
Discharge Summary Date of Service October 06, 2025 Principal Dx & Hospital Course #1 = Principal Diagnosis (1) Aspiration pneumonia: The patient completed Unasyn antibiotic on October 02. Chest x-ray on October 03 remains stable. She is on 4 L of oxygen with 96% saturation at this time. Will wean down it to her usual 3 L oxygen per minute per nasal cannula if possible (2) Sepsis: Present on admission. Now resolved (3) Acute UTI: Present on admission. Now resolved with antibiotic therapy (4) TATY (acute kidney injury): Mild on admission. Now resolved. This appeared to be acute on chronic kidney disease stage III (5) Type 2 diabetes mellitus: ADA diet. Sliding scale coverage while hospitalized. She will resume her usual diabetic management at discharge (6) Anemia: Hemoglobin dropped to 7.7 but improved to 8.4 today, October 06. No overt melena or hematochezia. Eliquis has been discontinued. Fecal occult blood ordered and pending Plan [facility] cannot accept the patient until next week. She has elected to go home with home health services. Admission HPI Per Admitting Provider The patient is a 75-year-old female who was recently admitted for compression fx and rib fractures as well as CAP treated with augmentin and doxycycline. Discharged by me on 09/06. She is now experiencing weakness, lower abdominal pain, and a burning sensation when she urinates. Her , who is with her, confirms these symptoms and is worried that she might have a urinary tract infection (UTI) because she has had similar symptoms in the past when she had a UTI. She is a vague historian and he provides additional history. For me she is very uncomfortable, endorses left sided abdominal and/or chest wall pain lying on left side. She asks for pain medicines and also feels nausea dino. She has not eaten anything several days and drinking fluids poorly per her . She does feel short of breath. When she arrived at the emergency department, her blood pressure was low at 89/69, her breathing rate was fast at 28 breaths per minute, and her temperature was 36.4C. She wasn't experiencing a fast heart rate, likely because she is on a beta yao. She was given 500 mL of IV saline, which helped improve her blood pressure. She was also given a dose of cefepime to treat sepsis, which is suspected to be caused by a UTI. Blood cultures were taken to confirm the infection. Discharge Exam General-alert and oriented x3, no fever, no chills HEENT-head atraumatic and normocephalic, pupils equal and reactive to light, extraocular muscles intact Neck-no lymphadenopathy or thyromegaly, trachea midline Chest-diminished breath sounds bilaterally. No audible rales wheezing or rhonchi Cardiac-regular rate and rhythm, normal S1 and S2 Abdomen-normal bowel sounds, no hepatosplenomegaly Extremities-no cyanosis, clubbing, or edema Neuro-cranial nerves II through XII intact, motor and sensory function within normal limits, strength symmetrical, no focal deficits Psych-normal affect, normal mood Discharge Plan Discharge Items Patient Disposition: Home - Home Health Services Reason For Visit: SEPSIS UTI TATY Discharge Diagnosis: Suspected aspiration pneumonia, sepsis, UTI, metabolic encephalopathy, hyperkalemia, acute on chronic kidney disease stage III Condition on Discharge: Fair Activity: Resume your previous activity Non-emergency contact: Primary Care Provider Call non-emergency contact if: you have any medication questions and your symptoms worsen Follow-up/Referrals: Unknown,Unknown [] - Diet: Carb Consistent or DM2 and Heart Healthy Addtl Attending Provider Instructions: Eliquis has been discontinued. Also stop glimepiride because of hypoglycemia Addtl [employer] Provider Instructions: DIABETES RECOMMENDATIONS: To help improve blood sugar levels: 1.) Lifestyle changes. - Eliminate sugar-sweetened beverages, regular soda, juices to drink. - Limit intake of sweets/desserts. - Aim for balanced meals with fruits/vegetables and protein. 2.) Monitoring. - Try to check your blood sugar 1x/day x few weeks. - Try to change the time you check from day to day. - Great times to check are before any meal, 1-2 hours after any meal, and before bed. - Aim to maintain blood sugar levels 80-140 before meals and less than 180 after meals. - Notify your provider of blood sugar levels frequently above or below target. Pending Studies at Discharge: No Stand-Alone Forms: My [employer], Smoking Cessation Medications and DC Order Prescriptions: Continued (DME) OneTouch Verio test strips Strip See Rx Instructions .ROUTE .MEDSUPPLY Qty: 50 3RF Rx Instructions: test blood sugar 1-2 times per day acetaminophen [Tylenol Extra Strength] 500 mg Tablet 1,000 mg PO Q8H Qty: 0 0RF calcitonin (salmon) 200 unit/actuation [place]co,Non-Aerosol 1 spray NA DAILY 30 Days Qty: 3.7 0RF oxycodone 5 mg Tablet 5 mg PO Q4H PRN (Reason: pain) Qty: 30 0RF Trelegy Ellipta 100-62.5-25 mcg blister with device 1 inh inhalation DAILY Qty: 28 0RF Rx Instructions: already has at home sennosides-docusate sodium [Senokot-S] 8.6-50 mg Tablet 1 tab PO QAM Qty: 30 0RF polyethylene glycol 3350 [Miralax] 17 gram Powder In Packet 17 g PO DAILY Qty: 30 0RF guaifenesin [Mucinex] 600 mg tablet extended release 12hr 1,200 mg PO Q12 Qty: 60 0RF ipratropium-albuterol 0.5 mg-3 mg(2.5 mg base)/3 mL solution for nebulization 3 ml inhalation Q4H PRN (Reason: shortness of breath) Qty: 90 0RF aspirin [Uri Low Dose Aspirin] 81 mg Tablet,Delayed Release (Dr/Ec) 81 mg PO QAM Qty: 30 0RF cyanocobalamin (vitamin B-12) 500 mcg Tablet 1,000 mcg PO QAM Qty: 60 0RF metformin 1,000 mg tablet 1,000 mg PO BID Qty: 60 0RF folic acid 1 mg tablet 1 mg PO QAM Qty: 30 0RF albuterol sulfate [Ventolin HFA] 90 mcg/actuation HFA aerosol inhaler 2 puff INHALATION Q6 PRN (Reason: Shortness Of Breath Or Wheezing) Qty: 8.5 0RF rosuvastatin 20 mg tablet 20 mg PO QAM Qty: 30 0RF metoprolol tartrate 50 mg tablet 50 mg PO BID pantoprazole 40 mg tablet,delayed release (DR/EC) 40 mg PO QAM furosemide 20 mg tablet 20 mg PO QAM Discontinued Eliquis 5 mg tablet 5 mg PO BID Hold Instructions: Resume on 05/31/24. Until seen by PCP glimepiride 4 mg tablet 4 mg PO DAILY Qty: 30 0RF Rx Instructions: already has rx at home Discharge Orders: Discharge Order (Routine); Ordered 10/06/25 Ordered By: Timothy Richards Admission Data Admit Date/Time: 09/25/25 15:20 Attending Provider: Timothy Richards Admit Provider: Darlene Echols Primary Care Provider: Karli Peña Other Providers: Darlene Echols; Subhash Wilson; Bonita [facility] Hospital Stay Data Consultations 09/25/25 15:08 ED Decision to Admit Stat 09/26/25 07:17 Consult Nephrology Routine 09/28/25 11:35 Consult Palliative Care Routine 09/29/25 08:38 Consult Infectious Diseases Routine Diagnostic Imagining Performed 09/25/25 14:18 CT abd pelvis wo con Stat 09/27/25 17:46 CT head/brain wo con Stat 09/27/25 18:10 CT chest diagnostic wo con Stat Pending Results Patient Have Any Pending Studies at Discharge: No Discharge Instructions Given to Patient (Per Discharging Provider) Eliquis has been discontinued. Also stop glimepiride because of hypoglycemia Total Time Total Time Spent Total Time Spent (In Minutes): 50 minutes. Total time included patient exam, discharge planning, medication reconciliation. Coding Level of Care Code 51000 INP/OBS DISCH >30 MIN Diagnoses Aspiration pneumonia of both lower lobes due to vomit J69.0 Aspiration pneumonia type: due to vomit Laterality: bilateral Lung location: lower lobe of lung Sepsis A41.9 Sepsis type: sepsis due to unspecified organism Acute UTI N39.0 TATY (acute kidney injury) N17.9 Type 2 diabetes mellitus E11.9 Anemia D64.9 Anemia type: unspecified type
== END 2025-10-06 15:00 | disposition home health service (06) | DRG 871 ==
LOC: SUATTDRO → ED 13:02 → 2S 15:20 → SUATTDRO 15:20 → 2S 16:11 → 3N 10-01 22:28